=== PATIENT | female | born 1975 | race Caucasian/White ===

== ENCOUNTER → 2016-08-25 | Outpatient (CLI) | payer OTHER ==
[~2016-08-25] MED LIST: ANAS1TAB6 PO; LEVO25TA PO
[2016-08-25 13:17] VITALS: BP 129/84; PULSE 85; TEMP 36.8; O2SAT 100
--- NOTE | 2016-08-25 14:57 | Radiation Oncology Follow-Up ---
Radiation Oncology Follow-Up Date of Visit Aug 25, 2016. (Dia Jack PA-C) Reason For Visit One-month follow-up and cancer survivorship care plan (Dia Jack PA-C) Radiation Completion Date 07/15/16 (Dia Jack PA-C) Diagnosis (1) Breast cancer Onset Date: 11/12/2015 Histology Subtype: ductal Stage: ll Permanent Comment: STAGING: Left breast, invasive ductal carcinoma, grade 2, ER /MD positive, Her2 negative, [id number], stage II TREATMENT: 1. Lumpectomy/SLN - 11/25/2015 - Dr. Iniguez 2. Status post completion of systemic chemotherapy 4 cycles of Adriamycin and Cytoxan followed by 4 cycles of Taxol- Dr. Fay 3. Status post completion of radiation therapy 07/15/2016 received 6640 cGy Last Edited By: Dia Jack on July 29, 2016 08:15 (Dia Jack PA-C) History of Present Illness Ms. Vega is a 40-year-old premenopausal female who recently self palpated a left breast mass. She was referred by her selenium plant operator for bilateral diagnostic mammograms and targeted ultrasound on 11/08/2015 which revealed: A solid and cystic mass in the left breast measuring up to 28 mm in the greatest dimension and was confirmed by ultrasound to be a lobulated hypoechoic mass. Additionally, there was a 9 mm mass in the right breast also concerning for malignancy. The patient underwent ultrasound-guided biopsies of the left and right breast masses on 11/12/2015. The right breast mass was negative and was consistent with a fibroadenoma. The left breast mass was a invasive ductal carcinoma that was grade 1. No ductal carcinoma in situ is significant. The tumor was estrogen receptor positive, progesterone receptor positive and HER-2 negative. The patient underwent BRCA genetic testing on 11/19/2015 which revealed no mutation for BRCA1/2. The patient was then seen by Dr. Iniguez who discussed treatment options and recommended either mastectomy or breast conserving therapy. The patient elected for breast conserving surgery followed by adjuvant radiation therapy with or without chemotherapy. The patient underwent lumpectomy and sentinel lymph node biopsy on 11/25/2015 which revealed a 2.5 cm invasive ductal carcinoma that was grade 2. There is no ductal carcinoma in situ present. The margins were negative and the closest margin was 5 mm. Multiple sentinel lymph nodes were obtained and 3 were positive out of a total of 6 lymph nodes removed. The largest lymph node was 1.1 cm in greatest dimension. There was focal extranodal extension one positive sentinel lymph node. The patient was staged as a pT2N1a. She did meet with Dr. Fay for medical oncology who recommended adjuvant chemotherapy with Adriamycin, Cytoxan and Taxol followed by adjuvant radiation therapy in then anti-hormonal therapy. We are now seeing her in consultation to discuss the role of adjuvant radiation therapy. She has now completed her systemic chemotherapy. She received 4 cycles of Adriamycin and Cytoxan followed by 4 cycles of Taxol. She does have fatigue. She denies any problems with nausea and recurrent vomiting. She had some mild discomfort in the outer aspect of the breast. She saw Dr. Iniguez who felt this was postoperative changes. There has been no redness. She has noted no masses and no change of the axilla. She's had no swelling of her arm. She presents today for her CT simulation and to begin the process of treatment. She was treated with conventional radiation therapy. Radiation was completed in 07/15/2016. She received 6640 cGy. (Dia Jack PA-C) Interim History The skin irritation that occurred during treatment has steadily improved. The hyperpigmentation is steadily resolving. She stated that the swelling is less. She denies any pain of the breast. She has noted no masses or tenderness and no change of the axilla. She's had no swelling of her arm. She has had problem with recurring headaches. These are worse in the morning and late evening they're less in the afternoons. She finds that she is taking Tylenol twice a day. She does have some discomfort in the back for neck. She feels her headaches have increased since starting the Arimidex as well as the once a month injection that she has been receiving. (Dia Jack PA-C) Allergies Coded Allergies: Anesthetics, Mari (Verified Adverse Reaction, Severe, GI SYMPTOMS, ) severe nausea and vomiting Home Medications Scheduled Anastrozole (Anastrozole), 1 TAB PO DAILY Levothyroxine Sodium (Synthroid), 1 TAB PO DAILY Review of Systems Gastrointestinal: Symptoms: WNL Oral: Symptoms: No Problems Other Oral Symptoms: Indigestion related to certain drinks/foods Respiratory: Symptoms: WNL Urinary: Symptoms: WNL Skin: Symptoms: No Problems Breast: Right Upper Arm Measurement: 44.5 Right Mid Arm Measurement: 30.4 Right Wrist Measurement: 17.1 Left Upper Arm Measurement: 45.1 Left Mid Arm Measurement: 30.5 Left Wrist Measurement: 17.5 Arm Dominence: Right (Dia Jack PA-C) Physical Exam Vital Signs Date Time Temp Pulse Resp B/P (MAP) Pulse Ox O2 Delivery O2 Flow Rate FiO2 08/25/16 13:17 36.8 85 16 129/84 100 Fatigue: None General Appearance: no apparent distress Eyes: normal inspection, EOMI ENT: normal ENT inspection, hearing grossly normal Neck: no adenopathy, thyroid normal Respiratory/Chest: lungs clear, no respiratory distress, no accessory muscle use Breast: Breast examination reveals well-healed incisions of the left breast. There is resolving hyperpigmentation and resolving edema. There are no masses or tenderness no axillary adenopathy. She has no skin retractions or nipple changes. Using the [place] score cosmesis she has a good outcome. The right breast showed no masses or tenderness and no axillary adenopathy. Cardiovascular: regular rate, rhythm, no gallop, no murmur Extremities: no pedal edema Neurologic/Psychiatric: no motor/sensory deficits, alert, normal mood/affect Skin: warm/dry (Dia Jack PA-C) Laboratory Studies Test 07/16/16 14:40 07/16/16 15:31 08/25/16 13:07 White Blood Count 7.45 K/uL (4.8-10.8) 7.79 K/uL (4.8-10.8) Red Blood Count 3.73 M/uL (4.2-5.4) 3.77 M/uL (4.2-5.4) Hemoglobin 11.3 g/dL (12.0-16.0) 11.8 g/dL (12.0-16.0) Hematocrit 33.2 % (37-47) 33.3 % (37-47) Mean Corpuscular Volume 89.0 fL (80-100) 88.3 fL (80-100) Mean Corpuscular Hemoglobin 30.3 pg (25-34) 31.3 pg (25-34) Mean Corpuscular Hemoglobin Concent 34.0 g/dl (32-36) 35.4 g/dl (32-36) Platelet Count 209 K/uL (130-400) 194 K/uL (130-400) Mean Platelet Volume 8.2 fL (7.4-10.4) 8.7 fL (7.4-10.4) Neutrophils (%) (Auto) 73.1 % 71.1 % Lymphocytes (%) (Auto) 18.1 % 20.0 % Monocytes (%) (Auto) 4.6 % 5.5 % Eosinophils (%) (Auto) 3.5 % 2.8 % Basophils (%) (Auto) 0.3 % 0.1 % Neutrophils # (Auto) 5.45 K/uL (1.4-6.5) 5.53 K/uL (1.4-6.5) Lymphocytes # (Auto) 1.35 K/uL (1.2-3.4) 1.56 K/uL (1.2-3.4) Monocytes # (Auto) 0.34 K/uL (0.11-0.59) 0.43 K/uL (0.11-0.59) Eosinophils # (Auto) 0.26 K/uL (0-0.5) 0.22 K/uL (0-0.5) Basophils # (Auto) 0.02 K/uL (0-0.2) 0.01 K/uL (0-0.2) RDW Standard Deviation 49.6 fL (36.4-46.3) 47.0 fL (36.4-46.3) RDW Coefficient of Variation 15.3 % (11.5-14.5) 14.6 % (11.5-14.5) Immature Granulocyte % (Auto) 0.4 % 0.5 % Immature Granulocyte # (Auto) 0.03 K/uL (0.00-0.02) 0.04 K/uL (0.00-0.02) Sodium Level 141 mmol/L (136-145) 140 mmol/L (136-145) Potassium Level 3.8 mmol/L (3.5-5.1) 3.7 mmol/L (3.5-5.1) Chloride Level 107 mmol/L (98-107) 106 mmol/L (98-107) Carbon Dioxide Level 26 mmol/L (21-32) 26 mmol/L (21-32) Anion Gap 8.0 mmol/L (3-11) 8.0 mmol/L (3-11) Blood Urea Nitrogen 15 mg/dl (7-18) 16 mg/dl (7-18) Creatinine 1.20 mg/dl (0.60-1.20) 1.20 mg/dl (0.60-1.20) Estimated GFR () 65.9 65.9 Estimated GFR (Non- 56.9 56.9 BUN/Creatinine Ratio 12.7 (10-20) 13.3 (10-20) Random Glucose 139 mg/dl (70-99) 140 mg/dl (70-99) Calcium Level 9.1 mg/dl (8.5-10.1) 9.3 mg/dl (8.5-10.1) Total Bilirubin 0.5 mg/dl (0.2-1) 0.7 mg/dl (0.2-1) Aspartate Amino Transferase (AST) 18 U/L (15-37) 15 U/L (15-37) Alanine Aminotransferase (ALT) 26 U/L (12-78) 28 U/L (12-78) Alkaline Phosphatase 109 U/L (45-117) 98 U/L (45-117) Lactate Dehydrogenase 213 U/L (84-246) 217 U/L (84-246) Total Protein 7.6 gm/dl (6.4-8.2) 7.6 gm/dl (6.4-8.2) Albumin 3.6 gm/dl (3.4-5.0) 3.5 gm/dl (3.4-5.0) Globulin 4.0 gm/dl (2.5-4.0) 4.1 gm/dl (2.5-4.0) Albumin/Globulin Ratio 0.9 (0.9-2) 0.9 (0.9-2) Enhanced Estradiol 25.8 pg/ml Follicle Stimulating Hormone 35.34 IU/L (Dia Jack PA-C) Assessment & Plan Plan: The patient was also seen and examined by Dr. Miguel. We discussed the symptoms that she is having of headaches. She is seeing medical oncology today. We'll defer any imaging to their office. She has follow-up appointment with Dr. nIiguez. She is scheduled for mammography next week. We asked her to return to our office in 6 months. She may call our office if she has no questions or concerns. Today we completed a cancer survivorship care plan. A copy of the document was given to the patient. (Dia Jack PA-C) I agree with note created by Dia Jack PA-C. I reviewed the patient's chart and information with her. I have examined and evaluated the patient. I reviewed relevant clinical information and answered the patient's and/or family' s questions. (Veeral. Miguel MD) Total Time In Follow-Up I spent 20 minutes speaking to the patient and performing examination. I spent 20 minutes reviewing information, preparing the survivorship document, and completing this note. (Dia Jack PA-C) I spent 15 minutes examining and counseling the patient. (Veeral. Miguel MD) Copy To Ruben Iniguez M.D.; Cachorro Fay D.O.; Lucho Larkin M.D. Problem Qualifiers (1) Breast cancer: Breast location: upper outer quadrant of breast Estrogen receptor status: positive Patient sex: female Laterality: right Qualified Codes: C50.411 - Malignant neoplasm of upper-outer quadrant of right female breast; Z17.0 - Estrogen receptor positive status [ER+]
== END | disposition home or self-care (01) ==
LOC: C.ONC 13:12
PROVIDERS: ATTEND Physician Assistant Medical
DX: Z08 Encounter for follow-up examination after completed treatment for malignant neoplasm (principal); Z92.3 Personal history of irradiation; Z85.3 Personal history of malignant neoplasm of breast

== ENCOUNTER → 2016-09-07 | Outpatient (CLI) | payer OTHER | END | disposition home or self-care (01) | LOC: C.MAMM 08:07 | PROVIDERS: ATTEND Internal Medicine Hematology & Oncology | DX: Z85.3 Personal history of malignant neoplasm of breast (principal) ==

== ENCOUNTER → 2017-04-27 | Outpatient (CLI) | payer OTHER ==
[~2017-04-27] MED LIST changes: +GABA-1219 PO
[2017-04-27 15:17] VITALS: BP 110/78; PULSE 100; TEMP 36.7; O2SAT 97
--- NOTE | 2017-04-27 17:07 | Radiation Oncology Follow-Up ---
Radiation Oncology Follow-Up Date of Visit Apr 27, 2017. Reason For Visit 8 month follow-up Radiation Completion Date finished 07-15-2016 Diagnosis (1) Breast cancer Onset Date: 11/12/2015 Stage: ll Permanent Comment: STAGING: Left breast, invasive ductal carcinoma, grade 2, ER /MS positive, Her2 negative, [id number], stage II TREATMENT: 1. Lumpectomy/SLN - 11/25/2015 - Dr. Iniguez 2. Status post completion of systemic chemotherapy 4 cycles of Adriamycin and Cytoxan followed by 4 cycles of Taxol- Dr. Fay 3. Status post completion of radiation therapy 07/15/2016 received 6640 cGy Last Edited By: Dia Jack on July 29, 2016 08:15 History of Present Illness Ms. Vega self palpated a left breast mass. She was referred by her top knitter for bilateral diagnostic mammograms and targeted ultrasound on 10/2015 which revealed: A solid and cystic mass in the left breast measuring up to 28 mm in the greatest dimension and was confirmed by ultrasound to be a lobulated hypoechoic mass. Additionally, there was a 9 mm mass in the right breast also concerning for malignancy. The patient underwent ultrasound-guided biopsies of the left and right breast masses on 11/12/2015. The right breast mass was negative and was consistent with a fibroadenoma. The left breast mass was a invasive ductal carcinoma that was grade 1. No ductal carcinoma in situ is significant. The tumor was estrogen receptor positive, progesterone receptor positive and HER-2 negative. The patient underwent BRCA genetic testing on 11/19/2015 which revealed no mutation for BRCA1/2. The patient was then seen by Dr. Iniguez who discussed treatment options and recommended either mastectomy or breast conserving therapy. The patient elected for breast conserving surgery followed by adjuvant radiation therapy with or without chemotherapy. The patient underwent lumpectomy and sentinel lymph node biopsy on 11/25/2015 which revealed a 2.5 cm invasive ductal carcinoma that was grade 2. There is no ductal carcinoma in situ present. The margins were negative and the closest margin was 5 mm. Multiple sentinel lymph nodes were obtained and 3 were positive out of a total of 6 lymph nodes removed. The largest lymph node was 1.1 cm in greatest dimension. There was focal extranodal extension one positive sentinel lymph node. The patient was staged as a pT2N1a. She did meet with Dr. Fay for medical oncology who recommended adjuvant chemotherapy with Adriamycin, Cytoxan and Taxol followed by adjuvant radiation therapy in then anti-hormonal therapy. We are now seeing her in consultation to discuss the role of adjuvant radiation therapy. She has now completed her systemic chemotherapy. She received 4 cycles of Adriamycin and Cytoxan followed by 4 cycles of Taxol. She does have fatigue. She denies any problems with nausea and recurrent vomiting. She had some mild discomfort in the outer aspect of the breast. She saw Dr. Iniguez who felt this was postoperative changes. There has been no redness. She has noted no masses and no change of the axilla. She's had no swelling of her arm. She presents today for her CT simulation and to begin the process of treatment. She was treated with conventional radiation therapy. Radiation was completed in 07/15/2016. She received 6640 cGy. Interim History She continues to have discomfort in the lateral aspect of the breast towards the axilla. When she stretches and raises her arm up she will have discomfort. She has generalized muscle discomfort. She has post chemotherapy neuropathy. She was seen today in medical oncology notes been prescribed Celebrex. She is up-to-date on mammography. She continues follow-up with the breast surgeon. She has recheck mammography in [place]. Allergies Coded Allergies: Anesthetics, Mari (Verified Adverse Reaction, Severe, GI SYMPTOMS, ) severe nausea and vomiting Home Medications Scheduled Anastrozole (Anastrozole), 1 TAB PO DAILY Levothyroxine Sodium (Synthroid), 1 TAB PO DAILY Scheduled PRN Gabapentin (Gabapentin), 1 CAP PO TID PRN for Pain Review of Systems Gastrointestinal: Symptoms: WNL Oral: Symptoms: No Problems Respiratory: Symptoms: WNL Urinary: Symptoms: WNL Skin: Symptoms: No Problems Breast: Right Upper Arm Measurement: 50.0 Right Mid Arm Measurement: 31.0 Right Wrist Measurement: 17.3 Left Upper Arm Measurement: 49.8 Left Mid Arm Measurement: 31.0 Left Wrist Measurement: 17.6 Patient Cosmetic Evaluation: Fair Staff Cosmetic Evalaluation: Good Physical Exam Vital Signs Date Time Temp Pulse Resp B/P (MAP) Pulse Ox O2 Delivery O2 Flow Rate FiO2 04/27/17 15:17 36.7 100 20 110/78 97 Fatigue: None General Appearance: no apparent distress Eyes: normal inspection, EOMI ENT: normal ENT inspection, hearing grossly normal Neck: no adenopathy, thyroid normal Respiratory/Chest: lungs clear, no respiratory distress, no accessory muscle use Breast: Breast examination reveals continued hyperpigmentation of the left breast. There are no masses or tenderness and no axillary adenopathy. There is mild edema in the lower portion of the breast. She has no skin retractions or nipple changes. Using the [place] score of cosmesis she has a good outcome. The right breast showed no masses or tenderness and no axillary adenopathy. Cardiovascular: regular rate, rhythm, no gallop, no murmur Extremities: no pedal edema Neurologic/Psychiatric: no motor/sensory deficits, alert Skin: warm/dry Pain Management Patient Reports Pain: Yes Side: Bilateral Pain Location: Generalized Patient Preferred Pain Scale: 0 - 10 Initial Pain Intensity: 2.0 Pain Management Plan She has muscular pain. She has been prescribed Celebrex by medical oncology. She will be starting that medication today. She does not require any pain management through our office. Laboratory Laboratory Results: not applicable Pathology Pathology Results: not applicable Imaging Imaging Studies: were reviewed, and pertinent findings noted below Imaging Comments She had a mammogram on the left breast January 06, 2017. This showed no evidence of breast malignancy. Slight evolution of the left breast treatment changes. She will be due for bilateral mammogram in August 2017. BI-RADS Category 2. Benign. Assessment & Plan Plan: She also had a mammogram in March after noting area of tenderness of the left lateral breast. She was concerned for possible mass. The mammogram was negative. Today's examination reveals no masses. There is no cording. There was no tenderness on the lateral side of the breast. She was seen and examined by Dr. Miguel. She will continue follow-up with her primary care physician, medical oncology, and her breast surgeon. Medical oncology has prescribed Celebrex. This will help with her joint discomfort, neuropathy, as well as any breast tenderness. We asked her to return to our office in 1 year. She may call if she has any questions or concerns. Assessment & Plan (Attending) I agree with note created by Dia Jack PA-C. I reviewed the patient's chart and information with her. I have examined and evaluated the patient. I reviewed relevant clinical information and answered the patient's and/or family' s questions. DADO OPERATOR Total Time In Follow-Up I spent 20 minutes speaking to the patient performing examination. I spent 15 minutes reviewing information and completing this note. [place] Total Time (Attending) In Follow-Up I spent 15 minutes examining and counseling the patient. DADO OPERATOR Copy To Ruben Iniguez M.D.; Cachorro Fay D.O.; Pankaj Cm M.D. Problem Qualifiers (1) Breast cancer: Breast location: upper outer quadrant of breast Estrogen receptor status: positive Patient sex: female Laterality: right Qualified Codes: C50.411 - Malignant neoplasm of upper-outer quadrant of right female breast; Z17.0 - Estrogen receptor positive status [ER+]
== END | disposition home or self-care (01) ==
LOC: C.ONC 15:14
PROVIDERS: ATTEND Physician Assistant Medical
DX: C50.411 Malignant neoplasm of upper-outer quadrant of right female breast (principal); Z17.0 Estrogen receptor positive status [ER+]

== ENCOUNTER → 2017-09-24 | Outpatient (CLI) | payer OTHER ==
[~2017-09-24] MED LIST changes: -ANAS1TAB6 PO; +ANAS1TAB7 PO
== END | disposition home or self-care (01) ==
LOC: C.LAB 11:21
PROVIDERS: ATTEND Internal Medicine
DX: E03.9 Hypothyroidism, unspecified (principal)

== ENCOUNTER → 2017-10-05 | Outpatient (CLI) | payer OTHER ==
--- NOTE | 2017-10-05 14:45 | MAMMOGRAPHY REPORT ---
UNILATERAL RIGHT DIGITAL DIAGNOSTIC MAMMOGRAM TOMOSYNTHESIS WITH CAD AND RIGHT ULTRASOUND: 10/05/2017 CLINICAL HISTORY: 42-year-old woman with a personal history of left breast cancer status post breast conservation treatment was recently callback from screening mammography in the right breast, for one versus 2 nodular asymmetries in the 12:00 posterior breast. Additional diagnostic mammogram and ultra sound images were performed which demonstrate to possible nodular asymmetries in the 1230 right breas t, 13 cm from the nipple. Patient had a previous biopsy in the right breast 12:00 representing a fib roadenoma, which measured 5 mm. TECHNIQUE: Right CC and MLO tomosynthesis full-field images, spot compression tomosynthesis right CC and MLO 2D and tomosynthesis images centered in the 12:00 posterior axis, and additional CC and MLO f ull-field tomosynthesis images were obtained after placement of skin markers. COMPARISON: Comparison is made to exams dated: 09/07/2017 mammogram, 03/22/2017 mammogram, 01/06/2017 m ammogram, and 09/23/2016 mammogram. BREAST COMPOSITION: There are scattered areas of fibroglandular density in right breast. FINDINGS: The full-field views of the right breast demonstrate a few scattered benign-appearing coars e calcifications. There is a metallic dumbbell-shaped biopsy clip adjacent to an elliptical versus o void circumscribed 6.6 x 3.0 x 4.9 mm mass in the 1:00 posterior right breast, denoting a biopsy-prov en fibroadenoma. 5 cm medial to the fibroadenoma in the CC projection, in the far posterior right br east along the posterior nipple line, there is a conspicuous 4.3 mm nodular asymmetry with indistinct and somewhat irregular borders but possible intra-coursing fat. This is thought to project in the 1 2:00 far posterior breast on right MLO tomosynthesis slice , and further evaluation with ultraso und was then performed. Targeted ultrasound was performed in the superior right breast from approximately 10:00 through 2:00. In the 1:30 right breast, 10 cm from the nipple, there is a lobulated and circumscribed hypoechoic solid-appearing mass measuring 3.4 x 4.1 x 4.4 mm and this is similar in appearance to prior ultrasou nds which were labeled 2:00 and most likely represents the previously biopsy-proven fibroadenoma. In the 11:00 right breast, 9 cm from the nipple, there is a small focal ill-defined mixed echogenicity isoechoic and hypoechoic solid-appearing mass measuring 3.8 x 3.2 x 2.7 mm. Another ill-defined hypo echoic focal shadowing area is identified in the 10:30 right breast, 6 cm from the nipple measuring 3 .8 x 3.7 x 4.2 mm. It was unclear if either of the lesions in the 11:00 or 10:30 right breast may co rrelate with the persistent mammographic asymmetry and therefore a skin BB was placed in the 11:00 ax is and a triangle marker was placed in the 1030 axis. Repeat full-field right CC and MLO tomosynthes is images were performed. The repeat tomosynthesis views demonstrate the BB marker aligns with a newly visualized ill-defined m ammographic mass in the upper outer middle one third of the breast, best seen in the CC projection an d in retrospect is visible on the original tomosynthesis views performed today on CC tomosynthesis sl ice 39/71. Mammographically, this mass measures 5.1 mm and it is indeterminate based on the ultrasou nd appearance. Ultrasound-guided core biopsy is recommended. There is no definite mammographic abno rmality to correlate with the shadowing lesion seen in the 10:30 right breast on ultrasound. Neither of the sonographic findings definitively correspond with the mammographic asymmetry in the far poste rior 12:00 breast. Additional targeted ultrasound was performed between the BB marker and the fibroadenoma identified in the 130 axis but no additional solid or cystic mass was seen. Overall, the ill-defined indistinct 4 mm nodular asymmetry in the posterior right breast along the po sterior nipple line on the CC view, thought to project superiorly based on the MLO view remains indet erminate. Stereotactic tomosynthesis guided biopsy is recommended. IMPRESSION: ACR BI-RADS CATEGORY 4: SUSPICIOUS, ULTRASOUND ACR BI-RADS CATEGORY 4: SUSPICIOUS 1. There is a persistent 4 mm indistinct, ill-defined nodular asymmetry in the far posterior retrogl andular fat of the right breast, along the posterior nipple line on the CC view and thought to projec t superiorly on the MLO view, without sonographic correlate identified. This finding remains indeter minate given that long-term stability is not demonstrated on prior mammograms, stereotactic tomosynt hesis guided biopsy is recommended for definitive characterization. 2. Incidentally seen on ultrasound in the right 11:00 breast is a small mixed echogenicity solid-rishi earing 4 mm mass, which is seen mammographically in the lateral, middle one third of the breast on th e CC tomosynthesis images. Definitive characterization with ultrasound-guided core needle biopsy is recommended. 3. A third ill-defined shadowing area in the 10:30 right breast on ultrasound as no definite mammogr aphic abnormality and may simply represent normal shadowing glandular tissue. Pending benign patholo gy results, a six-month follow-up right diagnostic mammogram and possible ultrasound is recommended t o ensure stability. 4. Given the personal history of premenopausal left breast cancer would also consider future surveil dat with breast MRI. These results and recommendations were discussed with the patient at the time of the exam. She tenta tively scheduled the right breast biopsies prior to leaving our department. Some breast cancers are not detected with mammography. A negative mammographic report should not fermín y biopsy if a clinically suggestive mass is present. Toña Chowdary M.D. ay/:10/05/2017 12:06:44 Director Of Pharmacy: Oriana Galindo, [facility]; Toña Chowdary [facility] letter sent: Abnormal 06/03 OVERALL STUDY BIRADS: 4 Suspicious abnormality
== END ==
LOC: C.MAMM 09:47
PROVIDERS: ATTEND Nurse Practitioner Family
DX: N64.89 Other specified disorders of breast (principal)

== ENCOUNTER → 2017-10-15 | Outpatient (CLI) | payer OTHER ==
--- NOTE | 2017-10-15 09:41 | Discharge Instructions ---
Discharge Instructions Procedure Procedure Date: Oct 15, 2017. Reason for visit: Us Core Bx,Right Us Mass,Right Focal Asymm. Discharge Discharge Date: Oct 15, 2017. Discharge Diagnosis: status post breast biopsies Instructions Activity Recommendations: Additional Limitations (see below) Return to School/Work: no limitations Recommended Home Diet: No Limitations Provider Instructions: ACTIVITY RECOMMENDATIONS: * No lifting, pushing, pulling or exercising the affected side for three days. RETURN TO SCHOOL/WORK: * You may return to work/school after the procedure, but do not perform any strenuous activities for 24 to 48 hours. MEDICATIONS: * Tylenol (two 325 mg) every four to six hours if needed for mild pain (if not allergic to Tylenol). DIET: * Resume previous diet. SPECIAL CARE INSTRUCTIONS: * Keep biopsy site dry for 24 hours. May shower after 24 hours, but do not soak (bathe) incision. * May remove Tegaderm (plastic patch) 24 hours after procedure * Leave the steri-strips on for one week. Allow the steri-strips to fall off by themselves. If not off after one week, you may remove them. You may place a Bandaid crosswise over the strips, if desired. * Apply ice 10 minutes on and 10 minutes off as needed. * Wear a bra at bedtime to sleep more comfortably for 2-3 days. * Your referring physician should have the results after approximately 5 to 7 business days. * Call for unusual bleeding, fever, drainage, etc or if you have any questions call during normal business hours or after hours call Dr Galeas, . FOLLOW UP VISIT: Follow-up with Referring Physician as scheduled. Allergies Coded Allergies: Anesthetics, Mari (Verified Adverse Reaction, Severe, GI SYMPTOMS, ) severe nausea and vomiting [place] Recommendations: Call your doctor if: * Temperature above 101 degrees * Pain not relieved by pain medicine ordered * There is increased drainage or redness from any incision * You have any unanswered questions or concerns. Your Doctors Instructions noted above were prepared by provider Leonie Galeas. Patient Signature Section: Patient Instructions Signature Page Yamilka Gary Patient (or Guardian) Signature/Date: I have read and understand the instructions given to me by my caregivers. Caregiver/RN/Doctor Signature/Date: The above-named patient and/or guardian has received patient instructions on this date. + Original Patient Signature Page (only) stays with chart. Please make copy for patient.
--- NOTE | 2017-10-15 15:39 | MAMMOGRAPHY REPORT ---
ULTRASOUND GUIDED BIOPSY RIGHT BREAST: 10/15/2017 CLINICAL HISTORY: Right 11:00 breast mass. PATIENT CONSENT: The procedure, risks and benefits were discussed with the patient and informed writt en consent was obtained. A timeout was performed immediately prior to the procedure. PROCEDURE DESCRIPTION: With ultrasound guidance, aseptic technique, and lidocaine as the local anesth etic (1% lidocaine to anesthetize the skin and 1% lidocaine with epinephrine to anesthetize the deepe r tissues), the mass of concern in the right 11:00 breast was sampled 3 times with a 14-gauge Achieve biopsy needle. Immediately thereafter, with ultrasound guidance, a metallic localizer clip was sheeba janell at the biopsy site. Direct pressure was applied to the site immediately post procedure until hem ostasis was achieved. Postprocedure unilateral mammograms were performed to confirm clip placement; see separate dictation for details. Steri-Strips were placed over the site and covered with an Opsit e patch. The patient tolerated the procedure without complication. She was given wound care instruct ions. The specimens were sent to pathology for analysis. COMPARISON: Comparison is made to exams dated: 10/05/2017 ultrasound, 10/05/2017 mammogram - [facility], 09/07/2017 mammogram, 03/22/2017 mammogram, 01/06/2017 mammogram, and 09/23/2016 mammo gram. IMPRESSION: ULTRASOUND GUIDED BIOPSY Ultrasound-guided core needle biopsy of the right 11:00 breast mass, with clip placement. The patien t will receive pathology results from her referring provider. Leonie Galeas M.D. /:10/15/2017 10:17:28 Pay Agent: Oriana Galindo, [facility]
--- NOTE | 2017-10-15 15:39 | MAMMOGRAPHY REPORT ---
UNILATERAL RIGHT DIGITAL DIAGNOSTIC MAMMOGRAM TOMOSYNTHESIS: 10/15/2017 CLINICAL HISTORY: Status post right breast biopsies. TECHNIQUE: The study was acquired using full field digital technology and interpreted from soft copy. Breast tomosynthesis in addition to standard 2D mammography was performed. Postprocedural right CC and ML tomosynthesis images were obtained. COMPARISON: Comparison is made to exams dated: 10/05/2017 mammogram - [facility], 11/2017 mammogram, 03/22/2017 mammogram, 01/06/2017 mammogram, 09/23/2016 mammogram, and 10/15/2017 stere otactic biopsy - [facility]. BREAST COMPOSITION: There are scattered areas of fibroglandular density in right breast. FINDINGS: A new dumbbell-shaped biopsy marker clip is seen in the expected location of the biopsied a symmetry in the right far posterior at approximately 12:00. Ill-defined density is seen at the surgi richard site, measuring up to 4.7 cm on the MLO view, likely representing postbiopsy changes/hematoma. A new ribbon-shaped biopsy marker clip is seen in the expected location of the biopsied mass in the ri ght 11:00 breast. IMPRESSION: POST PROCEDURE IMAGING FOR MARKER PLACEMENT New biopsy marker clip status post right breast biopsies. A postbiopsy hematoma is seen at the biops y site in the right 12:00 breast; the patient was advised to call or return to the breast center for any recurrent bleeding or other concerns. Pending benign pathology results, recommend follow-up diag nostic tomosynthesis mammograms and possible ultrasound of the right breast in 6 months. Some breast cancers are not detected with mammography. A negative mammographic report should not fermín y biopsy if a clinically suggestive mass is present. Leonie Galeas M.D. /:10/15/2017 10:34:24 Spindle Carver: Oriana Galindo, [facility] BI-RADS Code: Post Procedure Imaging For Marker Placement
--- NOTE | 2017-10-15 15:39 | MAMMOGRAPHY REPORT ---
STEREOTACTIC GUIDED BIOPSY RIGHT BREAST: 10/15/2017 CLINICAL HISTORY: Asymmetry in the right posterior breast, without a sonographic correlate identified . PATIENT CONSENT: The procedure, risks, benefits, and alternatives of stereotactic biopsy with clip pl acement were discussed with the patient, and verbal and written consent was obtained. A timeout was performed immediately prior to the procedure. PROCEDURE DESCRIPTION: With tomosynthesis stereotactic guidance, aseptic technique, and lidocaine as a local anesthetic (1% lidocaine to anesthetize the skin and 1% lidocaine with epinephrine to anesthe tize the deeper tissues), the asymmetry in the far posterior right breast was sampled multiple times with a 9-gauge vacuum-assisted biopsy needle (Viacor). The path of approach was craniocaudal. A metallic marker clip (dumbbell-shaped) was placed at the biopsy site. Postprocedural mammograms w ere obtained to confirm clip placement; see separate dictation for details. Direct pressure was appl ied at the biopsy site until hemostasis was achieved. The patient tolerated the procedure without co mplication. She was given wound care instructions. COMPARISON: Comparison is made to exams dated: 10/05/2017 ultrasound, 10/05/2017 mammogram - [facility], 09/07/2017 mammogram, 03/22/2017 mammogram, 01/06/2017 mammogram, and 09/23/2016 mammo gram. IMPRESSION: STEREOTACTIC GUIDED BIOPSY Tomosynthesis stereotactic guided biopsy of asymmetry in the far posterior right breast, with clip pl acement. The patient will receive pathology results from her referring provider. Pending benign pat hology results, recommend follow-up diagnostic tomosynthesis mammograms and possible ultrasound of th e right breast in 6 months. Leonie Galeas M.D. /:10/15/2017 10:31:52 Attending Technologist: RT Elinor(Ramya)(M), [facility] Chairman Ceo: Oriana Galindo, [facility]
== END | disposition home or self-care (01) ==
LOC: C.MAMM 08:47
PROVIDERS: ATTEND Nurse Practitioner Family
DX: N64.9 Disorder of breast, unspecified (principal); L76.82 Other postprocedural complications of skin and subcutaneous tissue; D24.1 Benign neoplasm of right breast; C50.911 Malignant neoplasm of unspecified site of right female breast

== ENCOUNTER 2018-03-29 10:40 | Inpatient (IN) ==
--- NOTE | 2018-03-28 13:04 | Anesthesiology Consultation ---
Date of Service March 28, 2018 Assessment & Plan Chart Review Chart Review: Acceptable Risk for Surgery and Patient NOT seen in Pre Admission Testing Patient is a late add-on to preop testing review (03/28/2018) for surgery on 03/29. No PAT nurse interview was completed so chart was reviewed based upon surgeon's H & P. I do not see that patient has any hx/o DM but she has an elevated HgbA1c and glucose level. Wrote to check blood sugar AM of surgery. Surgery itself appears to be rather urgent as patient has previous hx/o of breast cancer now with a suspicious lung mass and I felt it was not prudent to delay for better glucose management. If patient continues to have elevated blood sugars would think it would be reasonable to discuss inpatient admission with the surgeon to ensure adequate control prior to going home or at least have outpatient follow up arranged. Consults Requested none History Surgery Operation Date: 03/29/18 13:05 Proposed Procedures p Left Video Assisted Thoracoscopy with Left Upper Lobe Wedge Resection - Ike Damico MD, FACS Allergies Allergy/AdvReac Type Severity Reaction Status Date / Time Anesthetics - Mari Type- AdvReac Severe GI SYMPTOMS Verified 02/13/16 14:21 Parabens Medications Home Medications Medication Instructions Recorded Confirmed Last Taken LEVOTHYROXINE SODIUM (SYNTHROID) 1 tab PO DAILY 30 Days #30 tab 05/26/16 Unknown ANASTROZOLE 1 tab PO DAILY 30 Days #30 tab 08/25/16 Unknown Gabapentin 1 cap PO TID PRN 30 Days #90 cap 04/27/17 Unknown Past Medical History Medical History Breast cancer (11/12/15) "STAGING: Left breast, invasive ductal carcinoma, grade 2, ER/MD positive, Her2 negative, [id number], stage II TREATMENT: 1. Lumpectomy/SLN - 11/25/2015 - Dr. Iniguez 2. Status post completion of systemic chemotherapy 4 cycles of Adriamycin and Cytoxan followed by 4 cycles of Taxol- Dr. Fay 3. Status post completion of radiation therapy 07/15/2016 received 6640 cGy" On 12/18/15 12:43 Vaibhav Miguel wrote "STAGING: Left breast, invasive ductal carcinoma, grade 2, ER/MD positive, Her2 negative, [id number], stage II TREATMENT: 1. Lumpectomy/SLN - 11/25/2015 - Dr. Iniguez 2. Chemotherapy planned - Dr. Fay " Hyperglycemia Hypothyroidism Obese Past Surgical History Surgical History H/O hernia repair Hx of section S/P lumpectomy, left breast Testing Echocardiogram Date: 02/25/16 History: BREAST CANCER, NEOPLASM -- Conclusions -- 1. Normal left ventricular size and systolic function. Estimated EF 55-60% . No visualized wall motion abnormalities. Cannot rule out wall motion abnormalities given image quality. No significant left ventricular hypertrophy. 2. No significant valvular abnormalities visualized. 3. Technically difficult study. 4. No significant change from prior study on 12/13/2015. Laboratory Results Laboratory Tests 03/14/18 03/14/18 03/14/18 12:24 12:24 12:24 WBC 5.76 Hgb 11.9 L Hct 33.1 L Plt Count 151 Sodium 133 L Potassium 3.4 L Chloride 100 Carbon Dioxide 30 BUN 24 H Creatinine 1.25 H Glucose 318 H Hemoglobin A1c TSH 11.900 H 03/14/18 12:24 WBC Hgb Hct Plt Count Sodium Potassium Chloride Carbon Dioxide BUN Creatinine Glucose Hemoglobin A1c 7.8 H TSH
[~2018-03-29 10:40] MED LIST changes: -ANAS1TAB7 PO; +CEFAZOLIN 3000MG 65 ML IV SCH; -GABA-1219 PO; -LEVO25TA PO; +LR 15ML/HR IV SCH
[2018-03-29] MEDS ORDERED: INSULIN HUMAN REGULAR PER IV STA (11:41)
[2018-03-29] MEDS ORDERED: NovoLIN-R INSULIN PER UNIT CHARGE ONE (11:42)
--- NOTE | 2018-03-29 11:59 | History & Physical Bridge Note ---
Date of Service March 29, 2018 History & Physical Bridge Note I have examined the patient, reviewed the History & Physical and in the interval since the performance of the History & Physical I have noted the following changes of clinical significance: no changes noted
[2018-03-29] MEDS ORDERED: LIDOCAINE 2% JELLY 5 ML TUBE ONE (13:02)
[2018-03-29] MEDS ORDERED: BUPIVACAINE 0.5 % 5 MG/1 ML MPF 30ML VIAL ONE (13:03)
[2018-03-29] MEDS ORDERED: SODIUM CHLORIDE 0.9% PF 50 ML VIAL ONE ×2 (13:04→13:09)
[2018-03-29] MEDS ORDERED: BUPIVACAINE LIPOSOME 1.3% 266 MG/20 ML VIAL ONE (13:09)
[2018-03-29] MEDS ORDERED: MIDAZOLAM HCL 1 MG/ML 2ML VIAL ONE (13:24)
[2018-03-29] MEDS ORDERED: fentaNYL citrate 100 MCG/2 ML VIAL ONE ×2 (13:24)
[2018-03-29] MEDS ORDERED: SCOPOLAMINE 1.5 MG TDSY ONE (13:40)
[2018-03-29] MEDS ORDERED: SCOPOLAMINE 1.5 MG TDSY TD ONE (13:42)
[2018-03-29] MEDS ORDERED: ROCURONIUM BROMIDE 10 MG/ML 5 ML VIAL ONE (14:33)
[2018-03-29] MEDS ORDERED: LIDOCAINE HCL 2% 2 ML VIAL/AMP(20MG/ML) INFIL ONE (14:33)
[2018-03-29] MEDS ORDERED: PROPOFOL IV EMULSION 10 MG/ML 20 ML VIAL IV ONE (14:33)
[2018-03-29] MEDS ORDERED: ONDANSETRON INJ 2 MG/ML 2 ML VIAL ONE (14:33)
[2018-03-29] MEDS ORDERED: NEOSTIGMINE METHYLSULFATE 5 MG/5 ML SYR ONE (14:33)
[2018-03-29] MEDS ORDERED: GLYCOPYRROLATE 0.2 MG/ML VIAL ONE (14:33)
[2018-03-29] MEDS ORDERED: HYDROmorphone INJ 2 MG/ML SYR/VIAL ONE (15:15)
[2018-03-29] MEDS ORDERED: PROMETHAZINE HCL 12.5 MG in SODIUM CHLORIDE 0.9% 50 ML IV PRN (15:29)
[2018-03-29] MEDS ORDERED: NALOXONE HCL 0.4 MG/1 ML VIAL/CARP IV PRN (15:29)
[2018-03-29] MEDS ORDERED: ATROPINE SULFATE 0.1 MG/ML 10ML SYR IV PRN (15:29)
[2018-03-29] MEDS ORDERED: ePHEDrine sulfate 50 MG/ML AMP IV PRN (15:29)
[2018-03-29] MEDS ORDERED: FLUMAZENIL 0.1 MG/1 ML 10 ML VIAL IV PRN (15:29)
[2018-03-29] MEDS ORDERED: LABETALOL HCL IV 5 MG/ML 20ML IV PRN (15:29)
[2018-03-29] MEDS ORDERED: ONDANSETRON INJ 2 MG/ML 2 ML VIAL IV PRN ×2 (15:29→16:50)
[2018-03-29] MEDS ORDERED: HYDROmorphone INJ 2 MG/ML SYR/VIAL IV PRN (15:29)
--- NOTE | 2018-03-29 15:37 | XRay Report ---
XR chest 1V portable CLINICAL HISTORY: 43 years-old Female presenting with lung wedge biopsy, recent postop. TECHNIQUE: Portable upright AP view of the chest was obtained. COMPARISON: 12/13/2015. FINDINGS: Large bore left pleural drain terminates at the paramediastinal left apex. Cardiac silhouette top nor mal in size. Pulmonary vascular prominence. Mildly low lung volumes. Left perihilar and basilar opaci ty. No large pleural effusion. No evidence of a pneumothorax. Soft tissue emphysema along the inferio r left lateral chest wall associated with the pleural drain. Biopsy clips may be present in the right breast. Osseous structures and upper abdomen normal. IMPRESSION: 1. Left pleural drain in place. No pneumothorax. 2. Postsurgical changes of the left hemithorax with atelectasis. 3. Mild volume overload/congestive change. Electronically signed by: George Corral M.D. 03/29/2018 3:35 PM
[2018-03-29] MEDS ORDERED: HYDROmorphone INJ 1 MG/ML SYRINGE ONE (15:59)
[2018-03-29] MEDS ORDERED: CHECK SCOPOLAMINE PATCH PLACEMENT SCH (16:00)
--- NOTE | 2018-03-29 16:02 | Anesthesiology Progress Note ---
Date of Service March 29, 2018 Anesthesia Post Procedure Vital Signs Vital Signs: Temp Pulse Pulse Resp BP Pulse Ox 03/29/18 15:50 67 14 130/73 100 03/29/18 15:40 69 14 137/71 100 03/29/18 15:30 65 16 128/68 100 03/29/18 15:21 36.3 C L 70 16 110/69 100 03/29/18 11:42 36.9 C 99 H 20 156/109 H 97 Pain Intensity Left Chest: Pain Intensity: 7 Notes Mental Status: alert / awake / arousable and participated in evaluation Patient Amnestic to Procedure: Yes Nausea / Vomiting: adequately controlled Pain: adequately controlled Airway Patency, RR, SpO2: stable & adequate BP & HR: stable & adequate Hydration State: stable & adequate Anesthetic Complications: no major complications apparent
--- NOTE | 2018-03-29 16:42 | Post Operative Brief Note ---
Immediate Post Op Note v1 Date of Surgery March 29, 2018 Pre & Post Diagnosis Operation Date: 03/29/18 13:05 Pre-Op Diagnosis: Left Lung Nodule Post-Op Diagnosis: Left Lung Nodule Procedure Operation Date: 03/29/18 13:05 Actual Procedures p Left Video Assisted Thoracoscopy with Left Upper Lobe Wedge Resection(Left) - Ike Damico MD, FACS Surgeon Ike Damico MD, FACS Machine Packager b> Meng COFFEY Estimated Blood Loss 10 Findings Consistent with Post-Op Diagnosis Drains Chest Tube (24 Fr.Thal) and Nicole Catheter (16 Fr. Nicole catheter placed by ANNALISA Deleon without difficulty, draining clear yellow urine. Catheter removed at end of case)
[2018-03-29] MEDS ORDERED: DEXTROSE 50% 50 ML SYRINGE IV PRN (16:46)
[2018-03-29] MEDS ORDERED: CARBOHYDRATES FOR HYPOGLYCEMIA PO PRN (16:46)
[2018-03-29] MEDS ORDERED: GLUCAGON FOR INJ 1 MG VIAL IM PRN (16:46)
[2018-03-29] MEDS ORDERED: GLUCOSE 40% GEL 15 GM TUBE PO PRN (16:46)
[2018-03-29] MEDS ORDERED: GLUCOSE 10 TABS/TUBE PO PRN (16:46)
[2018-03-29] MEDS ORDERED: MoRPHine SULFATE 2 MG/ML CARP IV PRN (16:50)
--- NOTE | 2018-03-29 17:27 | Hospitalist Consultation ---
Date of Consultation March 29, 2018 Assessment & Plan (1) Nodule of left lung: - S/p VATS today; has h/o breast cancer. - Pain control per primary team. - Monitor labs in the AM. (2) Breast cancer: - Currently receiving Aromasin and Anastrozole. - S/p lung nodule biopsy as noted above. (3) Hypothyroidism: - Continue Synthroid 150 mcg daily. - Most recent TSH was 11.9 on 03/14. - Will need to follow up with to discuss increasing dose. (4) Type II diabetes mellitus: - Hemoglobin A1C was 7.8 on 03/14/18. - Pt. was prescribed Metformin as an outpatient but did not start taking it. - Will start SSI and Lantus 10 units BID per weight as inpatient. - Will likely need to start Metformin vs. other oral agent at discharge. - Will need glucometer at discharge (pt. does not have one at home), instructions on a carb consistent diet and follow up PCP in 1-2 weeks (Dr. Cm) (5) Obesity: - BMI 49. - Encourage weight loss and exercise. (6) DVT prophylaxis: - Per primary team. Dispo: Will continue to follow. Will discuss diabetic management prior to discharge and send prescriptions to pharmacy. Supervising Physician Co-Signing Physician Notes Attending Consult Note & Attestation - Pt seen/examined, chart reviewed, care plan d/w ERLINDA Irizarry. I agree w/ the palma components of her documentation. 43yo female with prior h/o breast cancer s/p lumpectomy/chemo/xrt - presented today for LLL wedge resection due to pulmonary nodule. I saw the patient on the surgical floor post-op from her surgery. She complained of mild pain on the left chest. She was sleepy but arousable and able to answer all questions. She denied substernal chest pain or dyspnea. Had nausea/emesis earlier but this resolved. PMH, PSH, allergies, meds, sochx, famhx, ros - reviewed VSS, afebrile gen - obese, NAD, tired mouth - MMM neck - no JVD heart - RRR, s1, s2, no murmur lungs - mildly decreased BS on left, CTA b/l however, normal airation on right abd - soft, NT, ND, BS+ ext - no edema, pulses 2+ b/l A/P: 1. s/p wedge resection LLL due to pulmonary nodule 2. morbid obesity w/ BMI 49.9 3. uncontrolled T2DM 4. hypothyroidism 5. nausea/emesis - resolved agree with BID lantus along with novolog coverage adjust as needed needs dose increase in synthroid as well with repeat TSH in 6 weeks after Thank you for the consult; will follow with you. Kevyn Eller MD History of Present Illness Reason for Consultation: Medical Management Attending Physician: Ike Damico MD, FACS History of Present Illness Ms. Vega is a 43 y/o female with h/o breast cancer currently on Aromasin and Anastrozole, Hypothyroidism, Obesity who presented for a planned procedure, VATS with left upper lobe wedge resection in setting of pulmonary nodule. Pt. was lethargic following surgery. She had nausea/vomiting and received Zofran IV. Her family was at bedside and provided the history. She has had hyperglycemia in the past. Pt. was provided a script for Metformin but has not started taking it yet. She is fearful due to her brother having GI upset with the medication. Pt. does not currently take any medication for diabetes. Allergies Allergy/AdvReac Type Severity Reaction Status Date / Time Anesthetics - Mari Type- AdvReac Severe GI SYMPTOMS Verified 03/29/18 11:12 Parabens Home Medications Home Medications Medication Instructions Recorded Confirmed Type levothyroxine 150 mcg PO DAILY 30 Days #30 tab 05/26/16 03/29/18 History anastrozole 10 mg PO DAILY 30 Days #30 tab 08/25/16 03/29/18 History exemestane [Aromasin] 25 mg PO DAILY 03/28/18 03/29/18 History Patient History Medical History Breast cancer (11/12/15) "STAGING: Left breast, invasive ductal carcinoma, grade 2, ER/AL positive, Her2 negative, [id number], stage II TREATMENT: 1. Lumpectomy/SLN - 11/25/2015 - Dr. Iniguez 2. Status post completion of systemic chemotherapy 4 cycles of Adriamycin and Cytoxan followed by 4 cycles of Taxol- Dr. Fay 3. Status post completion of radiation therapy 07/15/2016 received 6640 cGy" On 12/18/15 12:43 Vaibhav Miguel wrote "STAGING: Left breast, invasive ductal carcinoma, grade 2, ER/AL positive, Her2 negative, [id number], stage II TREATMENT: 1. Lumpectomy/SLN - 11/25/2015 - Dr. Iniguez 2. Chemotherapy planned - Dr. Fay " History of small bowel obstruction (Acute) Hyperglycemia Hypothyroidism Obese Surgical History History of dilatation and curettage (Acute) H/O hernia repair Hx of section S/P lumpectomy, left breast Family History Mother No significant family history Father No significant family history Social History marital status: Single Current Living Situation: Alone Feels Safe at Home: Yes Smoking Status: Never smoker Hx Alcohol Use: No Review of Systems 12 point R.O.S. negative unless specified above in HPI. Physical Exam 2 Vital Signs (Past 24 Hours): Last Vital Signs Temp 36.3 C L 03/29/18 15:21 Pulse 60 03/29/18 16:20 Resp 14 03/29/18 16:20 BP 126/76 03/29/18 16:20 Pulse Ox 99 03/29/18 16:20 Physical Exam: General: Lethargic, accompanied by sister and son at bedside. HEENT: NC/AT; PERRLA with EOMI; [place] conjunctiva, MMM. Neck: Supple and nontender Cardiac: RRR Lungs: on 3L via NC; clear to auscultation Abdomen: Bowel normoactive X 4; Nontender to palpation Extremities: Warm. No edema present Neuro: No focal weakness Skin: No rash Results & Data Laboratory Results 03/29/18 03/29/18 03/29/18 Range/Units 15:32 12:38 12:12 POC Glucose 227 H 237 H (70-99) POC Ur Test (NEG) Blood Type O Negative Antibody Screen NEGATIVE 03/29/18 03/29/18 03/29/18 Range/Units 11:27 11:15 11:12 POC Glucose 350 H (70-99) POC Ur Test NEG (NEG) Blood Type Cancelled Antibody Screen Cancelled
[2018-03-29] MEDS: INSULIN ASPART 100 UNITS/ML 3 ML PEN SC SCH ×2 (18:03→21:25)
[2018-03-29] MEDS: METOCLOPRAMIDE HCL INJ 5 MG/ML 2 ML VIAL IV SCH (18:07)
[2018-03-29] MEDS: SODIUM CHLORIDE 0.9% 1000ML 1,000 ML IV SCH (18:08)
--- NOTE | 2018-03-29 18:33 | Operative Report ---
DATE OF OPERATION: 03/29/2018 PREOPERATIVE DIAGNOSIS: Mass, left lower lobe. POSTOPERATIVE DIAGNOSIS: Apparent organizing pneumonia, left lower lobe. PROCEDURE: Left thoracoscopy with wedge resection left lower lobe mass. SURGEON: Ike Damico MD AFTER SCHOOL PROGRAM DIRECTOR: ERLINDA Winn (MrSarah Meng was present for the entire case and managed the camera while I performed this biopsy. He also closed the skin incisions at the end). ANESTHESIA: General anesthesia and endotracheal intubation using double lumen tube. DESCRIPTION OF PROCEDURE AND FINDINGS: Ms. Vega is a 43-year-old with history of bilateral breast cancers who was found to have a new mass in her left lower lobe, which was suspicious looking. I discussed this with her in the office and she did not want a needle biopsy nor did she want a navigational bronchoscopy. She wished to proceed with a direct excision, so we could "find out what is going on and move on." On 03/29/2018, the patient underwent uncomplicated wedge resection. Frozen section showed this to be an organizing pneumonia. She tolerated it well. The patient brought to operating room and laid in supine position. General anesthesia was induced. Endotracheal intubation was performed with a double lumen tube. The patient had proper monitoring lines and tubes placed when she was placed in right lateral decubitus position. The left chest prepped and draped in usual sterile fashion. After prophylactic antibiotics had been given and appropriate timeout had been called, a 5-mm incision was made for a 5-mm port posteriorly. A 5-mm camera was placed and it can be seen that we were in the pleural cavity and carbon dioxide was insufflated. Another 5-mm port was placed anteriorly and then a 12 mm port was placed also inferiorly, but anteriorly. The mass was easily seen as there was a discoloration and dimpling of the pleura. This was grasped and we wedged out a good portion of this using Endo-PANCHO stapler several times. Rest of the lungs looked very good. There were no adhesions. While waiting for the frozen section, we mixed 266 mg of Exparel with 30 mL of 0.25% bupivacaine and 250 mL of normal saline. The 3 port sites were each injected with the solution and then we used this to perform an intercostal block from the 2nd to the 11th rib. We had really no blood loss with this. There was no air leak. A frozen section came back. We elected to close and a 24-Chilean chest tube was placed through the anterior-superior most port and was directed towards the apex. This was sutured into place with a heavy silk suture. A single 0 Vicryl was used to close the muscle layer of the 12-mm incision and then 4-0 Monocryl was used in running subcuticular fashion to approximate wound edges. She tolerated it well. I attest to the content of the Intraoperative Record and any orders documented therein. Any exception s are noted below.
[2018-03-29] MEDS: DOCUSATE SODIUM 100 MG CAP PO SCH (21:13)
[2018-03-29] MEDS: ACETAMINOPHEN 1,000 MG/100 ML VIAL IV SCH (21:13)
[2018-03-29] MEDS: INSULIN GLARGINE SOLOSTAR 100 UNITS/ML 3 ML PEN SC SCH (21:24)
[2018-03-29] MEDS: NON-FORMULARY PATIENT'S OWN MED PO SCH (21:51)
[2018-03-29] MEDS: AFINITOR PO SCH (21:53)
[2018-03-29] MEDS: LEVOTHYROXINE SODIUM 150 MCG TABLET PO SCH (21:55)
[2018-03-29] MEDS ORDERED: MoRPHine SULFATE 4 MG/ML 1 ML CARP\\VIAL ONE (23:58)
[2018-03-30] MEDS: MoRPHine SULFATE 4 MG/ML 1 ML CARP\\VIAL IV PRN ×3 (01:57→20:53)
[2018-03-30] MEDS: METOCLOPRAMIDE HCL INJ 5 MG/ML 2 ML VIAL IV SCH ×2 (01:58→09:37)
[2018-03-30] MEDS: ACETAMINOPHEN 1,000 MG/100 ML VIAL IV SCH ×4 (06:05→22:04)
[2018-03-30] MEDS: LEVOTHYROXINE SODIUM 150 MCG TABLET PO SCH (07:15)
--- NOTE | 2018-03-30 07:38 | XRay Report ---
XR chest 1V portable CLINICAL HISTORY: 43 years-old Female presenting with lung biopsy . TECHNIQUE: Portable upright AP view of the chest was obtained. COMPARISON: 03/29/2018. FINDINGS: Large bore left pleural drain position at the paramediastinal left mid to upper lung. Cardiomediastin al silhouette normal. Worsened aeration of the lungs with bilateral low lung volumes. Bandlike opacit ies bilaterally new and/or increased from prior. No large effusion. No identifiable pneumothorax allo wing for body habitus and portable technique. Degenerative changes of the thoracic spine. Upper abdom en normal. IMPRESSION: 1. Low lung volumes with hypoventilatory changes with increasing atelectasis. 2. Large bore left pleural drain remains in place. No detectable pneumothorax. Electronically signed by: George Corral M.D. 03/30/2018 7:37 AM
[2018-03-30] MEDS: SODIUM CHLORIDE 0.9% 1000ML 1,000 ML IV SCH (08:01)
[2018-03-30] MEDS ORDERED: PHARMACY GLYCEMIC MGMT CONSULT PRN (08:58)
[2018-03-30] MEDS ORDERED: INSULIN GLARGINE SOLOSTAR 100 UNITS/ML 3 ML PEN SC SCH (09:00)
[2018-03-30] MEDS ORDERED: NON-FORMULARY PATIENT'S OWN MED PO SCH (09:00)
[2018-03-30] MEDS ORDERED: ANASTROZOLE 1 MG TAB PO SCH (09:00)
[2018-03-30] MEDS: AFINITOR PO SCH (09:35)
--- NOTE | 2018-03-30 09:35 | Pharmacy Report ---
Pharmacy Glycemic Short Note 2 - Date of Service March 30, 2018 - Glycemic Short BSG Results (Last 24 hours): 03/29/18 03/29/18 03/29/18 11:15 12:38 15:32 POC Glucose 350 H 237 H 227 H 03/29/18 03/29/18 03/30/18 17:15 20:18 08:03 POC Glucose 294 H 348 H 259 H OUTPATIENT ANTIDIABETIC REGIMEN: * none - prescribed metformin but has not started taking it * A1c 7.8% 03/14/18 ASSESSMENT: * Ms. Vega is a 43yo female with h/o breast cancer s/p lumpectomy/chemo/xrt, She presented for LLL wedge resection due to pulmonary nodule. * New diagnosis of T2DM and currently not on outpatient therapy * BSGs over the past 24 hours have ranged from 259 to 350 mg/dL * Changes needed to insulin regimen: * Fasting BSG of 259 mg/dL is above goal -> increase Lantus dose to 25 units this morning (based on weight/stress 2) * Tighten Novolog correction factor/carb ratio (also based on weight/stress 2) while patient remains in highly insulin resistant state - may need to loosen later today PLAN FOR INPATIENT GLYCEMIC CONTROL: * Hold outpatient oral diabetes medications * Basal insulin - increase * Lantus 25 units SQ this morning, then per scale: * 0 units for BSG < 120 * 12 units for BSG 120-180 * 25 units for BSG > 180 * Bolus insulin - tighten * NovoLog per scale ACHS or Q6hrs while NPO * Goal Range: Low 110 mg/dL - High 140 mg/dL * Correction Factor: 15 mg/dL/unit * Nutritional / Prandial insulin per carb ratio of 1 unit per 5 grams CHO consumed PLAN FOR DISCHARGE: * Start metformin ER 500 mg BID with meals (patient was initially hesitant to start medication due to side effects but she agrees to trial it) * Recommend f/u with outpatient provider within 1-2 weeks to evaluate effect of metformin and titrate or add a second oral agent if patient unable to tolerate higher doses * Inpatient glucose values have been much higher than what would be expected based on A1c
[2018-03-30] MEDS: DOCUSATE SODIUM 100 MG CAP PO SCH ×2 (09:36→20:42)
[2018-03-30] MEDS: ENOXAPARIN INJ 40 MG/0.4 ML SYR SQ SCH (09:36)
[2018-03-30] MEDS: NON-FORMULARY PATIENT'S OWN MED PO SCH (09:36)
[2018-03-30 09:37] LABS: Hematocrit (blood only) 35.2 % (37-47); Hemoglobin 12.2 g/dL (12.0-16.0); Mean Corpuscular Hgb Conc 34.7 g/dL (32-36); Mean Corpuscular Volume 99.2 fL (80-100); Mean Platelet Volume 9.2 fL (7.4-10.4); Platelet Count 193 K/uL (130-400); RDW Coefficient of Variation 13.8 % (11.5-14.5); RDW Standard Deviation 49.6 fL (36.4-46.3); Red Blood Count 3.55 M/uL (4.2-5.4); White Blood Count 8.63 K/uL (4.8-10.8)
[2018-03-30] MEDS: OXYCODONE HCL IR 5 MG TAB (IMMEDIATE RELEASE) PO PRN ×2 (09:46→15:58)
[2018-03-30] MEDS: INSULIN ASPART 100 UNITS/ML 3 ML PEN SC SCH ×5 (09:49→23:55)
[2018-03-30 10:12] LABS: BUN Creatinine Ratio 17.8 (10-20); Calcium 7.8 mg/dl (8.5-10.1); Creatinine Clr Calc Pharmacy 92.2 ml/min; Est GFR (Non-African American) 56.1
[2018-03-30 10:16] LABS: Partial Thromboplastin Time 26.2 Seconds (21.0-31.0); Prothrombin Time 10.4 Seconds (9.0-12.0)
[2018-03-30] MEDS: INSULIN GLARGINE SOLOSTAR 100 UNITS/ML 3 ML PEN SC SCH ×2 (10:31→20:44)
--- NOTE | 2018-03-30 14:21 | XRay Report ---
XR chest 2V routine CLINICAL HISTORY: 43 years-old Female presenting with tube removal . TECHNIQUE: PA and lateral views of the chest were obtained. COMPARISON: 03/30/2018. FINDINGS: Cardiomediastinal silhouette normal. Metallic opacity in the left midlung. Interval removal of the la rge bore left pleural drain. Trace residual soft tissue emphysema along the inferior left lateral prerna st wall. No pleural effusion or pneumothorax. Osseous structures normal. Biopsy clip noted in the rig ht breast. Upper abdomen normal. IMPRESSION: 1. Removal of the large bore left pleural drain. No pneumothorax. 2. Improved lung aeration with minimal left midlung atelectasis. Electronically signed by: George Corral M.D. 03/30/2018 2:20 PM
--- NOTE | 2018-03-30 14:52 | Hospitalist Progress Note ---
Date of Service March 30, 2018 Assessment & Plan (1) Nodule of left lung: - S/p VATS for left lung nodule on 03/29/18, POD#1. - Pathology was negative for metastatic disease. - Pain control per primary team. - Monitor labs qAM. (2) Breast cancer: - Currently receiving Aromasin and Anastrozole. - S/p lung nodule biopsy, no evidence of metastasis. (3) Hypothyroidism: - Continue Synthroid 150 mcg daily. - Most recent TSH was 11.9 on 03/14. - Will need to follow up with PCP to discuss increasing dose. (4) Type II diabetes mellitus: - Hemoglobin A1C was 7.8 on 03/14/18. - Pt. was prescribed Metformin once daily as an outpatient but did not start taking it. - BG has been severely uncontrolled during this admission, 250-350's. - Pharmacy consulted for glycemic management. - special education paraeducator consulted. - Will need glucometer at discharge (does not have one), instructions on carb consistent diet and f/u with PCP in 1 week. - Plan to start Metformin XR vs. Metformin vs. other oral agent at discharge. Will discuss tomorrow. (5) Obesity: - BMI 49. - Encourage weight loss and exercise. (6) Hyponatremia: - Corrected sodium level is 135 in setting of hyperglycemia. - Continue to monitor. (7) DVT prophylaxis: - Per primary team. Dispo: Will continue to follow, pt. is not stable for discharge to home due to uncontrolled hyperglycemia. Supervising Physician Co-Signing Physician Notes Attending Attestation - Chart reviewed in detail, and care plan d/w ERLINDA Irizarry. I agree w/ the palma components of her documentation. Hyperglycemia slowly improving but not optimal. Our team asked the primary team to delay discharge due to the hyperglycemia. She will be kept an additional day to tighten her DM control. Labs and vitals otherwise acceptable from medical standpoint. Kevyn Eller MD Subjective Pt. is more awake and alert today. She has mild pain at site of incision. We discussed diabetic management. Pt. states she has not started Metformin due to other acute issues that have developed recently. She was provided a script for Metformin once daily at home. Pt. is willing to start Metformin when she is discharged. She follows with Dr. Gautam; she was instructed to call his office if she develops GI upset. We discussed a carb consistent diet and the importance of maintaining glucose control. special education paraeducator was also consulted. Plan for discharge on 03/31 if BG is well controlled. Review of Systems All systems reviewed & are unremarkable except as noted in HPI & below Constitutional: no fever, no chills and no weakness Respiratory: no cough and no dyspnea Cardiovascular: no chest pain, no palpitations and no edema Gastrointestinal: no abdominal pain, no nausea, no vomiting and no constipation Genitourinary (Female): no difficulty urinating Allergy / Immunological: no rash Physical Exam 2 Vital Signs (Past 24 Hours): Last Vital Signs Temp 36.4 C L 03/30/18 12:00 Pulse 91 H 03/30/18 12:00 Resp 18 03/30/18 12:00 BP 134/84 03/30/18 12:00 Pulse Ox 95 03/30/18 12:00 Physical Exam: General: Obese female, in no acute distress. HEENT: NC/AT; PERRLA with EOMI; [place] conjunctiva, MMM. Neck: Supple and nontender Cardiac: RRR w/o murmurs, gallops or rubs Lungs: CTA bilaterally; No rhonchi, wheezing, or rales Abdomen: Bowel normoactive X 4; Nontender to palpation Extremities: Warm. +1 bilat LE edema. Neuro: No focal weakness Skin: Left sided incision site with dressing, drain was removed. Results & Data Laboratory Results 03/30/18 03/30/18 03/30/18 Range/Units 12:11 09:26 09:26 WBC 8.63 (4.8-10.8) K/uL RBC 3.55 L (4.2-5.4) M/uL Hgb 12.2 (12.0-16.0) g/dL Hct 35.2 L (37-47) % MCV 99.2 (80-100) fL MCH 34.4 H (25-34) pg MCHC 34.7 (32-36) g/dL RDW Std Deviation 49.6 H (36.4-46.3) fL RDW Coeff of Joshua 13.8 (11.5-14.5) % Plt Count 193 (130-400) K/uL MPV 9.2 (7.4-10.4) fL PT (9.0-12.0) Seconds INR (0.9-1.1) APTT (21.0-31.0) Seconds PTT Ratio Sodium 132 L (136-145) mmol/L Potassium 4.0 (3.5-5.1) mmol/L Chloride 101 (98-107) mmol/L Carbon Dioxide 24 (21-32) mmol/L Anion Gap 7.0 (3-11) BUN 21 H (7-18) mg/dl Creatinine 1.20 (0.6-1.2) mg/dl Est Cr Clr Drug Dosing 92.2 ml/min Est GFR ( Amer) 65.0 Est GFR (Non-Af Amer) 56.1 BUN/Creatinine Ratio 17.8 (10-20) Glucose 284 H (70-99) mg/dl POC Glucose 255 H (70-99) Calcium 7.8 L (8.5-10.1) mg/dl Magnesium 2.0 (1.8-2.4) mg/dl 03/30/18 03/30/18 03/29/18 Range/Units 09:26 08:03 20:18 WBC (4.8-10.8) K/uL RBC (4.2-5.4) M/uL Hgb (12.0-16.0) g/dL Hct (37-47) % MCV (80-100) fL MCH (25-34) pg MCHC (32-36) g/dL RDW Std Deviation (36.4-46.3) fL RDW Coeff of Joshua (11.5-14.5) % Plt Count (130-400) K/uL MPV (7.4-10.4) fL PT 10.4 (9.0-12.0) Seconds INR 1.0 (0.9-1.1) APTT 26.2 (21.0-31.0) Seconds PTT Ratio 1.0 Sodium (136-145) mmol/L Potassium (3.5-5.1) mmol/L Chloride (98-107) mmol/L Carbon Dioxide (21-32) mmol/L Anion Gap (3-11) BUN (7-18) mg/dl Creatinine (0.6-1.2) mg/dl Est Cr Clr Drug Dosing ml/min Est GFR ( Amer) Est GFR (Non-Af Amer) BUN/Creatinine Ratio (10-20) Glucose (70-99) mg/dl POC Glucose 259 H 348 H (70-99) Calcium (8.5-10.1) mg/dl Magnesium (1.8-2.4) mg/dl 03/29/18 03/29/18 Range/Units 17:15 15:32 WBC (4.8-10.8) K/uL RBC (4.2-5.4) M/uL Hgb (12.0-16.0) g/dL Hct (37-47) % MCV (80-100) fL MCH (25-34) pg MCHC (32-36) g/dL RDW Std Deviation (36.4-46.3) fL RDW Coeff of Joshua (11.5-14.5) % Plt Count (130-400) K/uL MPV (7.4-10.4) fL PT (9.0-12.0) Seconds INR (0.9-1.1) APTT (21.0-31.0) Seconds PTT Ratio Sodium (136-145) mmol/L Potassium (3.5-5.1) mmol/L Chloride (98-107) mmol/L Carbon Dioxide (21-32) mmol/L Anion Gap (3-11) BUN (7-18) mg/dl Creatinine (0.6-1.2) mg/dl Est Cr Clr Drug Dosing ml/min Est GFR ( Amer) Est GFR (Non-Af Amer) BUN/Creatinine Ratio (10-20) Glucose (70-99) mg/dl POC Glucose 294 H 227 H (70-99) Calcium (8.5-10.1) mg/dl Magnesium (1.8-2.4) mg/dl
--- NOTE | 2018-03-30 15:26 | Progress Note ---
DATE: 03/30/2018 Ms. Vega is a 43-year-old with bilateral breast cancer, who underwent a wedge resection of a suspicious looking mass in her left lower lobe. It turns out this is an organizing pneumonia. We pulled the patient's chest tube out today and her x-ray looks good this afternoon; however, her blood sugars are very difficult to control. I talked to Dr. Eller and we are going to hold her for 1 more day to see if we can get better control. She is normally followed by Dr. Pankaj Gautam in [place]. Ms. Vega has a flat affect today. Personally, I am quite pleased that this is not a metastatic cancer. At any rate, we will let her be discharged when her blood sugars are better controlled.
[2018-03-30] MEDS ORDERED: INSULIN ASPART 100 UNITS/ML 3 ML PEN SC ONE (23:21)
[2018-03-31] MEDS: INSULIN ASPART 100 UNITS/ML 3 ML PEN SC SCH ×2 (04:05→08:38)
[2018-03-31] MEDS: OXYCODONE HCL IR 5 MG TAB (IMMEDIATE RELEASE) PO PRN (04:12)
[2018-03-31] MEDS: ACETAMINOPHEN 1,000 MG/100 ML VIAL IV SCH (06:10)
[2018-03-31] MEDS: LEVOTHYROXINE SODIUM 150 MCG TABLET PO SCH (06:12)
[2018-03-31] MEDS ORDERED: POLYETHYLENE (MIRALAX) 17 GM PACK PO PRN (06:21)
[2018-03-31 07:45] VITALS: BP 147/73; TEMP 97.7; O2SAT 93
[2018-03-31] MEDS: AFINITOR PO SCH (08:33)
[2018-03-31] MEDS: NON-FORMULARY PATIENT'S OWN MED PO SCH (08:34)
[2018-03-31] MEDS: ENOXAPARIN INJ 40 MG/0.4 ML SYR SQ SCH (08:34)
[2018-03-31] MEDS: DOCUSATE SODIUM 100 MG CAP PO SCH (08:35)
[2018-03-31] MEDS: INSULIN GLARGINE SOLOSTAR 100 UNITS/ML 3 ML PEN SC SCH (08:36)
--- NOTE | 2018-03-31 10:38 | Pharmacy Report ---
Pharmacy Glycemic Short Note 2 - Date of Service March 31, 2018 - Glycemic Short BSG Results (Last 24 hours): 03/30/18 03/30/18 03/30/18 12:11 16:49 20:45 POC Glucose 255 H 236 H 161 H 03/30/18 03/31/18 03/31/18 23:54 04:02 08:14 POC Glucose 163 H 172 H 202 H OUTPATIENT ANTIDIABETIC REGIMEN: * none - prescribed metformin but has not started taking it * A1c 7.8% 03/14/18 ASSESSMENT: * Ms. Vega is a 43yo female POD #2 s/p VATS procedure due to lung nodule. Pathology revealed organizing pneumonia. * New diagnosis of T2DM and currently not on outpatient therapy * Improvement in BSGs noted over the past 12 hours. * Yamilka received 97 units of insulin yesterday (37 units basal/60 units of bolus) * This is significantly more insulin than I would have expected based on patients A1c * Changes needed to insulin regimen: * Fasting BSG = 202 mg/dL. This is a significant improvement compared to yesterday but BSG remains above goal. Continue Lantus dose per scale. * Post prandial BSGs are trending downward. Will tighten correction factor only. PLAN FOR INPATIENT GLYCEMIC CONTROL: * Hold outpatient oral diabetes medications * Basal insulin * Lantus SQ per scale BID * 0 units for BSG < 120 * 12 units for BSG 120-180 * 25 units for BSG > 180 * Bolus insulin - tighten CF * NovoLog per scale ACHS or Q6hrs while NPO * Goal Range: Low 120 mg/dL - High 140 mg/dL * Correction Factor: 12 mg/dL/unit * Nutritional / Prandial insulin per carb ratio of 1 unit per 5 grams CHO consumed PLAN FOR DISCHARGE: * Start metformin ER 500 mg BID with meals (patient was initially hesitant to start medication due to side effects but she agrees to trial it) * Recommend f/u with outpatient provider within 1-2 weeks to evaluate effect of metformin and to titrate dose or add a second oral agent if patient unable to tolerate higher doses * Inpatient glucose values have been much higher than what would be expected based on A1c
--- NOTE | 2018-03-31 11:07 | Hospitalist Progress Note ---
Date of Service March 31, 2018 Assessment & Plan (1) Nodule of left lung: - S/p VATS for left lung nodule on 03/29/18, POD#2. - Pathology negative for metastatic disease. - Pain control per primary team. - Monitor labs qAM - pt. refused lab work this morning. (2) Breast cancer: - Currently receiving Aromasin and Anastrozole. - S/p lung nodule biopsy, no evidence of metastasis. (3) Hypothyroidism: - Continue Synthroid 150 mcg daily. - Most recent TSH was 11.9 on 03/14. - Will need to follow up with PCP to discuss increasing Synthroid dose. (4) Type II diabetes mellitus: - Hemoglobin A1C was 7.8 on 03/14/18. - BG was severely uncontrolled post op, 250-350's. Pharmacy consulted for glycemic management, required large doses of both bolus and basal insulin. - Pt. has script for Metformin at home but did not start taking -- she was agreeable to start Metformin 500 mg daily at home. - Has f/u with Dr. Gautam on Wednesday; advised to call his office if she develops GI upset 2/2 Metformin. - religious educator consulted, met with pt. prior to discharge. - Will likely need increased dose of Metformin vs. another agent based on blood glucose levels during this admission. Her hemoglobin A1C was not consistent with uncontrolled glucose levels during this admission. (5) Obesity: - BMI 49. - Encourage weight loss and exercise. (6) Hyponatremia: - Corrected sodium level is 135 in setting of hyperglycemia. - Pt. refused labs this morning. (7) DVT prophylaxis: - Per primary team. Dispo: Discharge this morning, has f/u with PCP on Wednesday. Supervising Physician Co-Signing Physician Notes Attending Attestation - Chart reviewed in detail, and care plan d/w ERLINDA Irizarry. I agree w/ the palma components of her documentation. Glycemic control has improved since admission. Patient IS willing to take metformin xr at discharge. She has close f/u with her PCP scheduled to ensure her glycemic control continues to be adequate. From medical standpoint ok for d/c home. Kevyn Eller MD Subjective Pt. was doing well today, anxious to get home. She was agreeable to starting Metformin script, will f/u with Dr. Gautam on [place] [address]. religious educator consulted. Pt. refused labs this morning. Review of Systems All systems reviewed & are unremarkable except as noted in HPI & below Constitutional: no fever and no chills Respiratory: no cough and no dyspnea Cardiovascular: no chest pain, no palpitations and no edema Gastrointestinal: no abdominal pain, no nausea and no constipation Allergy / Immunological: no rash Physical Exam 2 Vital Signs (Past 24 Hours): Last Vital Signs Temp 36.5 C 03/31/18 07:39 Pulse 82 03/31/18 07:39 Resp 16 03/31/18 07:39 BP 147/73 H 03/31/18 07:39 Pulse Ox 93 03/31/18 07:39 Physical Exam: General: Obese female, in no acute distress. HEENT: NC/AT; PERRLA with EOMI; [employer] conjunctiva, MMM. Neck: Supple and nontender Cardiac: RRR w/o murmurs, gallops or rubs Lungs: CTA bilaterally; No rhonchi, wheezing, or rales Abdomen: Bowel normoactive X 4; Nontender to palpation Extremities: Warm. +1 bilat LE edema. Neuro: No focal weakness Skin: Left sided incision site with dressing. Results & Data Laboratory Results 03/31/18 03/31/18 03/30/18 Range/Units 08:14 04:02 23:54 POC Glucose 202 H 172 H 163 H (70-99) 03/30/18 03/30/18 03/30/18 Range/Units 20:45 16:49 12:11 POC Glucose 161 H 236 H 255 H (70-99)
[2018-03-31 11:55] VITALS: PULSE 94
--- NOTE | 2018-03-31 20:06 | Discharge Summary ---
DISCHARGE DIAGNOSES: 1. Apparent chronic organizing pneumonia, left lower lobe. 2. History of bilateral breast cancer. 3. Hyperglycemia. HOSPITAL COURSE: Yamilka Vega is an obese female who has a history of bilateral breast cancers. There is evidence that she may well have metastatic disease in her bone. She developed a new nodular lesion in left lower lobe, which is concerning in appearance. I was asked to see her for this. We outlined several options including observation, needle biopsy, navigational bronchoscopy, or wedge resection. She wished to proceed with a wedge resection for many reasons. One would be the expediency. I saw her in the office on 03/28/2018 set her up for surgery on 03/29/2018 and she was discharged home 03/31/2018. On 03/29/2018, the patient was brought to the operating room and underwent a left thoracoscopy with wedge resection of this mass without difficulty. Frozen section suggested chronic organizing pneumonia and the permanent sections confirmed this. So far, our Gram stain, AFB smear, and fungal smears were negative for organisms. She did very well from our surgical standpoint. We removed her tube on postop day 1. She had very little drainage and no air leak. Her x-ray looked quite good. Unfortunately, her blood sugars were out of control and hospitalist service spearheaded by Dr. Holger Eller, worked hard to get this back under control and to adjust her medications. She is followed by Dr. Pankaj Gautam in [place]. She has an appointment to see him in just a few days. She was discharged home. Her incisions look good. Three dressings were in place and her incision and her x-ray looked quite good after we pulled her tube yesterday. She was ambulating in the hallway and tolerating a diet and on room air. We will see her back in the office in another 10 days or so to go over her final cultures. Thus far, it have not grown anything. I was quite pleased with her response.
== END 2018-03-31 12:35 | disposition home or self-care (01) | DRG 164 ==
LOC: ASU 10:40 → 3N 15:15
DX: C50.911 Malignant neoplasm of unspecified site of right female breast; E11.65 Type 2 diabetes mellitus with hyperglycemia; Z68.42 Body mass index [BMI] 45.0-49.9, adult; R91.1 Solitary pulmonary nodule; J84.116 Cryptogenic organizing pneumonia; E87.1 Hypo-osmolality and hyponatremia; E66.01 Morbid (severe) obesity due to excess calories; E03.9 Hypothyroidism, unspecified

== ENCOUNTER 2023-01-07 15:13 | Inpatient (IN) ==
--- NOTE | 2023-01-07 16:08 | Emergency Department Note ---
Impression & Plan Cholecystitis, Abdominal pain, Vomiting ED Provider Note NAME: DEMETRIA CHAN AGE: 47 SEX: F : 1975 ARRIVES VIA: Walk-In INFORMANT: Patient ED PROVIDER(S): Jose David Francisco DO CHIEF COMPLAINT: vomiting HPI: Patient is a 47-year-old female with metastatic breast cancer undergoing chemotherapy with Dr. Zapien who presents to the ER for vomiting twice a day for the past 3 weeks since she got a new course of chemo. This is her second dose of the new course of chemo. She denies any headache or change in vision. No chest pain or shortness of breath. No dysuria, urgency, or frequency. No other exacerbating or remitting factors. ADDITIONAL HISTORY OBTAINED: Per HPI Chronic Medical/Social Conditions Affecting Care: Per HPI PAST MEDICAL HISTORY:See Below PAST SURGICAL HISTORY:See Below FAMILY HISTORY:See Below SOCIAL HISTORY:See Below HOME MEDICATIONS:See Below ALLERGIES:See Below VITALS:See Below PHYSICAL EXAMINATION: GENERAL: Sitting up in bed, alert, well appearing, well nourished, no distress, non-toxic EYE EXAM: normal conjunctiva. OROPHARYNX: no exudate, no erythema, lips, buccal mucosa, and tongue normal and mucous membranes are moist NECK: supple, no nuchal rigidity, no adenopathy, non-tender LUNGS: Clear to auscultation. Normal chest wall mechanics HEART: no murmurs, S1 normal and S2 normal ABDOMEN: abdomen soft, non-tender, normo-active bowel sounds, no masses, no rebound or guarding. UPPER EXTREMITIES: upper extremities are grossly normal. LOWER EXTREMITIES: No pitting edema. NEURO EXAM: Normal sensorium, cranial nerves II-XII grossly intact, normal speech, no gross weakness of arms, no gross weakness of legs. MEDICAL DECISION MAKING: Patient is a 47-year-old female who presents ER for above-stated complaint. IV was established blood work was obtained. Labs show no significant leukocytosis or anemia. BMP along LFTs shows an elevated glucose at 301. LFTs and lipase is unremarkable. UA was contaminated. Patient was covered with IV antibiotics. CT abdomen pelvis suggest acute cholecystitis but she has no tenderness in the right upper quadrant. Discussed with Dr. Forde recommended admission to medicine and HIDA scan. Discussed with [facility] hospitalist. Patient was given IV fluids, morphine and Reglan. She was updated bedside. She was feeling better. External Records Reviewed: Follows with palliative radiation for palliative radiation for thoracic spine Consults/Care Managements Discussions: Per MDM Triage Nursing notes reviewed. Limited review of prior medical records performed Vital Signs: reviewed and remarkable for no significant abnormalities Differential diagnosis: Differential diagnoses includes but is not limited to gastritis, peptic ulcer disease, GERD, gallbladder disease, pancreatitis, small bowel obstruction, appendicitis, diverticulitis, hernia, urinary tract infection, torsion, [/ectopic (if female)], perforation, trauma, infectious. ER treatment provided: See below Diagnostics interpreted by me include EKG and cardiac monitoring as listed below: -Cardiac Monitoring: An order was placed for continuous cardiac monitoring. The monitor shows a rate of 90 with sinus rhythm. -ECG: none -Laboratory studies:Interpreted by me as stated above in MDM and shown below. Imaging studies: Xrays: As interpreted by me:none CTs show: CT abdomen pelvis per my read showed no obvious bowel obstruction CT abdomen pelvis shows possible acute cholecystitis Critical Care: None Past Med/Surg History Medical History Arthritis Bilateral breast cancer Breast cancer (11/12/15) Stage 4 (+ mets) Depression with anxiety Heart palpitations R/t anxiety per patient History of COVID-19 12/2020 + 12/2021 > residual taste dysfunction and feeling of need to clear throat History of small bowel obstruction Hx bowel obstruction Hypothyroidism No current meds Liver spots "Mets from cancer" Peripheral neuropathy Type II diabetes mellitus Surgical History H/O hernia repair History of bowel resection D/T BOWEL OBSTRUCTION History of dilatation and curettage History of endometrial ablation History of lung surgery Left thoracoscopy with wedge resection left lower lobe Dr. Damico 03/29/2018 History of surgery Left Excisional Debridement of Buttock Wound History of tooth extraction History of vascular access device PORT INSERTION/REMOVAL Hx of section x3 Nausea and vomiting after administration of anesthetic agent "EXTREME" Port-A-Cath in place (04/30/22) Insertion Access Port left subclavian with Fluoroscopy(Left) - Chad Banuelos, S/P lumpectomy, left breast LEFT ARM LIMB RESTRICTION Family History Mother , 77yo Diabetes Heart disease Aortic valve replacement Mitral valve calcifications UTI (urinary tract infection) Father , 62yo Diabetes Myocardial infarction Hypertension Stroke Brother Diabetes Myocardial infarction Cardiac stents Pacemaker Hypertension Sister No problems noted. Daughter No problems noted. Son No problems noted. Son No problems noted. Other No family history of adverse response to anesthesia Social History Smoking Status: Never smoker Second Hand Exposure: Yes ( A CHILD); Do You Dip or Chew Tobacco: No; Hx Alcohol Use: Yes Alcohol type: hard liquor Alcohol Intake Frequency: Monthly or Less Hx Substance Use: No Preferred Language: Pashto Communication Ability: Effective Visual Impairment: No Limitations Hearing Ability: Normal Weights And Measures Sealer Required: No Beliefs That Will Affect Care: None marital status: Single Current Living Situation: Family Current Living Situation Comment: Lives with her kids 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 How many Children do You have: 3 Feels Safe at Home: Yes Diet: regular caffeine: No during the past year weight has: remained stable Assistive Devices: Denture - Upper, Denture - Lower and Glasses Allergies Allergies Allergy/AdvReac Type Severity Reaction Status Date / Time No Known Allergies Allergy Verified 12/27/22 22:45 Home Meds Home Medications Medication Instructions Recorded Confirmed denosumab 120 mg/1.7 mL (70 mg/mL) 120 mg subcut .Q 3months 01/01/22 01/07/23 subcutaneous solution (Xgeva) gabapentin 300 mg capsule 300 mg PO DAILY 07/30/22 01/07/23 blood-glucose sensor (Dexcom G6 12/17/22 01/07/23 Sensor device) blood-glucose transmitter (Dexcom 12/17/22 01/07/23 G6 Transmitter device) cyclobenzaprine 10 mg tablet 10 mg PO HS 12/17/22 01/07/23 dexamethasone 4 mg tablet See Rx Instructions .Route .COMPLEX 12/17/22 01/07/23 insulin aspart U-100 100 unit/mL 10 unit subcut TID 12/17/22 01/07/23 (3 mL) subcutaneous pen (Novolog FlexPen U-100 Insulin aspart) insulin glargine 100 unit/mL (3 40 unit subcut BID 12/17/22 01/07/23 mL) subcutaneous pen (Lantus Solostar U-100 Insulin) levothyroxine 137 mcg tablet 137 mcg PO DAILY 12/17/22 01/07/23 nitroglycerin 0.4 mg sublingual 0.4 mg sublingual Q5M PRN Chest 12/17/22 01/07/23 tablet (Nitrostat) Pain ondansetron HCl 8 mg tablet 8 mg PO Q12H 12/17/22 01/07/23 pen needle, diabetic 32 gauge x 12/17/22 01/07/2332" (BD Ultra-Fine Aletha Pen Needle) oxycodone 10 mg tablet 10 - 20 mg PO Q4 PRN Pain 01/07/23 01/07/23 Previous Rx's Medication Instructions Recorded oxycodone 5 mg tablet 5 - 10 mg (1 - 2 x 5 mg) PO 04/25/20 .[id number] PRN pain, for initial therapy, max 6 tabs per day #6 tabs promethazine 25 mg rectal 25 mg WA Q6H PRN sedation #12 ea 12/27/22 suppository Results & Data (ED) Vital Signs Vital Signs - 24 hr 01/07/23 15:27 01/07/23 16:50 01/07/23 20:53 Temperature 36.9 C Temperature Source Temporal Artery Scan Pulse Rate 95 H 82 86 Respiratory Rate 16 Respiratory Effort / Characteristics Non-Labored Spontaneous Respiratory Depth Normal Blood Pressure 116/89 Blood Pressure Mean 98 Pulse Oximetry 99 Oxygen Delivery Method Room Air Sepsis Recent Fever Within 48 Hours No Sepsis New/Unexplained Change in Mental Status N/A Sepsis Action Taken by Nursing No Action Required Laboratory Data 01/07/23 16:45 01/07/23 16:45 Lab Results 01/07/23 Range/Units 16:45 WBC 9.20 (4.8-10.8) K/ul RBC 3.47 L (4.20-5.40) M/uL Hgb 11.1 L (12.0-16.0) g/dl Hct 31.2 L (37.0-47.0) % MCV 89.9 (80.0-100.0) fL MCH 32.0 (25.0-34.0) pg MCHC 35.6 (32.0-36.0) g/dL RDW Std Deviation 52.9 H (36.4-46.3) fL RDW Coeff of Joshua 16.6 H (11.5-14.5) % Plt Count 246 (130-400) K/uL MPV 9.9 (9.4-12.4) fL Immature Gran % (Auto) 1.3 % Neut % (Auto) 68.7 % Lymph % (Auto) 21.2 % Haines % (Auto) 6.8 % Eos % (Auto) 1.3 % Baso % (Auto) 0.7 % Neut # (Auto) 6.32 (1.40-6.50) K/uL Lymph # (Auto) 1.95 (1.20-3.40) K/uL Haines # (Auto) 0.63 H (0.11-0.59) K/uL Eos # (Auto) 0.12 (0.00-0.50) K/uL Baso # (Auto) 0.06 (0.00-0.20) K/uL Immature Gran # (Auto) 0.12 (0.01-0.20) K/uL Sodium 136 (136-145) mmol/L Potassium 3.7 (3.5-5.1) mmol/L Chloride 101 (98-107) mmol/L Carbon Dioxide 26 (21-32) mmol/L Anion Gap 9 (3-11) BUN 12 (6-23) mg/dl Creatinine 0.79 (0.6-1.2) mg/dl Est Cr Clr Drug Dosing Not Reportable Est GFR ( Amer) 104.8 ml/min Est GFR (Non-Af Amer) 90.4 ml/min BUN/Creatinine Ratio 15.2 (10-20) Glucose 301 H* (70-99(Fasting)) mg/dl Calcium 10.0 (8.6-10.3) mg/dl Total Bilirubin 1.0 (0.2-1.0) mg/dl AST 19 (13-39) U/L ALT 72 H (7-52) U/L Alkaline Phosphatase 243 H (34-104) U/L Total Protein 7.5 (6.0-8.3) gm/dl Albumin 3.6 (3.4-5.0) gm/dl Globulin 3.9 (2.5-4.0) gm/dl Albumin/Globulin Ratio 0.9 (0.9-2) Lipase 4 L (11-82) U/L Urine Color Sawyer Urine Appearance Cloudy A (Clear) Urine pH 5.5 (4.5-7.5) Ur Specific [place] 1.037 H (1.000-1.030) Urine Protein Trace H (Negative) Urine Glucose (UA) 3+ H (Negative) Urine Ketones Trace H (Negative) Urine Blood 2+ H (Negative) Urine Nitrite Negative (Negative) Urine Bilirubin Negative (Negative) Urine Urobilinogen Negative (Negative) Ur Leukocyte Esterase 1+ H (Negative) Urine WBC (Auto) >30 H (0-5) /hpf Urine RBC (Auto) 10-30 H (0-4) /hpf U Hyaline Cast (Auto) 10-30 H (0-5) /lpf U Epithel Cells (Auto) 20-30 H (0-5) /lpf Urine Bacteria (Auto) 4+ H (Negative) Urine Yeast Not Reportable Administered Medications Discontinued Medications Sodium Chloride (Nss) 1,000 mls @ 999 mls/hr IV .Q1H1M JESSE Stop: 01/07/23 18:15 Last Infusion: 01/07/23 20:10 Dose: Infused Documented By: Admin: 01/07/23 16:55 Dose: 999 mls/hr Documented By: Infusion: 01/07/23 16:55 Dose: Infused Documented By: Admin: 01/07/23 16:39 Dose: 999 mls/hr Documented By: ACC Piperacillin Sod/Tazobactam Sod (Zosyn) 4.5 gm in 100 mls @ 200 mls/hr IV NOW ONE Stop: 01/07/23 19:40 Last Infusion: 01/07/23 20:43 Dose: Infused Documented By: Admin: 01/07/23 20:02 Dose: 200 mls/hr Documented By: ACC Sodium Chloride (Nss) 1,000 mls @ 999 mls/hr IV .Q1H1M JESSE Stop: 01/07/23 20:12 Last Admin: 01/07/23 20:02 Dose: 999 mls/hr Documented By: ACC Ioversol (Optiray 320 100ml) 94 ml IV ONCE ONE Stop: 01/07/23 18:06 Last Admin: 01/07/23 18:05 Dose: 94 ml Documented By: PLW Metoclopramide HCl (Metoclopramide Hcl Inj 5 Mg/Ml 2 Ml Vial) 10 mg IV NOW STA Stop: 01/07/23 16:41 Last Admin: 01/07/23 16:52 Dose: 10 mg Documented By: ACC Morphine Sulfate (Morphine Sulfate 10 Mg/Ml Carp/Vial) 6 mg IV NOW STA Stop: 01/07/23 19:49 Last Admin: 01/07/23 20:03 Dose: 6 mg Documented By: ACC Ondansetron HCl (Ondansetron Inj 2 Mg/Ml 2 Ml Vial) 4 mg IV NOW STA Stop: 01/07/23 16:10 Last Admin: 01/07/23 18:20 Dose: Not Given Documented By: ACC Imaging Data Radiologist's Impression: Abdomen/Pelvis CT 01/07/23 16:09 CT abd pelvis IV con only CLINICAL HISTORY: abd pain n/v TECHNIQUE: Helical axial images of the abdomen and pelvis were obtained and displayed. Automated dose lowering techniques and/or adjustment according to patient size were utilized for this exam. This exam was performed with intravenous contrast. CT DOSE: 1507.39 mGy.cm COMPARISON: Comparison is made to CT abdomen pelvis 11/16/2022 FINDINGS: Lower chest: No acute abnormality. Liver: Unremarkable. No focal lesions are seen. Gallbladder and biliary tree: Enlargement gallbladder is seen with ill-defined layering sludge and pericholecystic fluid. Gallbladder wall measures approximately 3.5 mm. No intra- or extrahepatic biliary ductal dilation. Pancreas: Unremarkable, no focal lesions. Spleen: Unremarkable. Adrenals: Unremarkable. Kidneys and ureters: Unremarkable. Bladder: Limited evaluation due to underdistention. Reproductive organs: Unremarkable. Bowel: The appendix is normal. Lymph nodes Retroperitoneal: Unremarkable. Pelvic: Unremarkable. Mesenteric: Unremarkable. Peritoneum: A small amount of free fluid is seen. Vessels: Unremarkable. Abdominal wall: A midline hernia mesh is seen. Bones: Mottled appearance of the spine with blastic lesions. IMPRESSION: 1. There is enlargement and wall thickening of the gallbladder with pericholecystic fluid concerning for acute cholecystitis. Gallbladder sludge is seen. 2. Otherwise no acute abnormalities are seen. ACT 112: Negative or not required by law. Electronically signed by: Mariano Guerrier M.D. 01/07/2023 7:07 PM Discharge Plan Visit Data Chief Complaint: Vomiting Stated Complaint: VOMITING, UNDERGOING CHEMO ED Provider: Jose David Francisco Discharge Problem: Cholecystitis, Abdominal pain, Vomiting Forms Stand Alone Forms: [facility] [place] [employer] Prescriptions Prescriptions: No Action gabapentin 300 mg capsule 300 mg PO DAILY Xgeva 120 mg/1.7 mL (70 mg/mL) solution 120 mg subcut .Q 3months (DME) Dexcom G6 Sensor Device See Rx Instructions .Route Rx Instructions: Change sensor every 10 days (DME) Dexcom G6 Transmitter Device See Rx Instructions .Route Rx Instructions: change transmitter every 90 days insulin aspart U-100 [Novolog FlexPen U-100 Insulin] 100 unit/mL (3 mL) insulin pen 10 unit subcut TID levothyroxine 137 mcg tablet 137 mcg PO DAILY cyclobenzaprine 10 mg tablet 10 mg PO HS nitroglycerin [Nitrostat] 0.4 mg tablet, sublingual 0.4 mg sublingual Q5M PRN (Reason: Chest Pain) Rx Instructions: do not exceed 3 doses per episode (DME) pen needle, diabetic [BD Ultra-Fine Aletha Pen Needle] 32 gauge x 5/32" needle See Rx Instructions .Route Rx Instructions: Use 1 three times a day with insulin injection ondansetron HCl 8 mg tablet 8 mg PO Q12H dexamethasone 4 mg tablet See Rx Instructions .ROUTE .COMPLEX Rx Instructions: Take 5 tablets Wednesday night and Wednesday morning prior to chemo; oxycodone 5 mg tablet 5 - 10 mg PO .[id number] PRN (Reason: pain, for initial therapy, max 6 tabs per day) Qty: 6 0RF Lantus Solostar U-100 Insulin 100 unit/mL (3 mL) insulin pen 40 unit SUBCUT BID oxycodone 10 mg tablet 10 - 20 mg PO Q4 PRN (Reason: Pain) promethazine 25 mg suppository 25 mg WA Q6H PRN (Reason: sedation) Qty: 12 0RF Referrals Referrals: PCP,NO [Primary Care Provider] - Discharge Problem: Abdominal pain Qualifiers: Abdominal location: unspecified location Qualified Code(s): R10.9 - Unspecified abdominal pain Vomiting Qualifiers: Vomiting type: unspecified Nausea presence: unspecified Qualified Code(s): R 11.10 - Vomiting, unspecified
[2023-01-07] MEDS ORDERED: ONDANSETRON INJ 2 MG/ML 2 ML VIAL IV STA (16:09)
[2023-01-07] MEDS: SODIUM CHLORIDE 0.9% 1,000 ML IV SCH ×2 (16:39→16:55)
[2023-01-07] MEDS ORDERED: METOCLOPRAMIDE HCL INJ 5 MG/ML 2 ML VIAL IV STA (16:40)
[2023-01-07 17:02] LABS: Basophils # (auto) 0.06 K/uL (0.00-0.20); Basophils % (auto) 0.7 %; Eosinophils # (auto) 0.12 K/uL (0.00-0.50); Eosinophils % (auto) 1.3 %; Hematocrit (blood only) 31.2 % (37.0-47.0); Hemoglobin 11.1 g/dl (12.0-16.0); Immature Granulocytes # (auto) 0.12 K/uL (0.01-0.20); Immature Granulocytes % (auto) 1.3 %; Lymphocytes # (auto) 1.95 K/uL (1.20-3.40); Lymphocytes % (auto) 21.2 %; Mean Corpuscular Hgb Conc 35.6 g/dL (32.0-36.0); Mean Corpuscular Volume 89.9 fL (80.0-100.0); Mean Platelet Volume 9.9 fL (9.4-12.4); Monocytes # (auto) 0.63 K/uL (0.11-0.59); Monocytes % (auto) 6.8 %; Neutrophils # (auto) 6.32 K/uL (1.40-6.50); Neutrophils % (auto) 68.7 %; Platelet Count 246 K/uL (130-400); RDW Coefficient of Variation 16.6 % (11.5-14.5); RDW Standard Deviation 52.9 fL (36.4-46.3); Red Blood Count 3.47 M/uL (4.20-5.40)
[2023-01-07 17:25] LABS: Alanine Aminotransferase 72 U/L (7-52); Albumin Globulin Ratio 0.9 (0.9-2); Albumin Level 3.6 gm/dl (3.4-5.0); Alkaline Phosphatase 243 U/L (34-104); Anion Gap 9 (3-11); Aspartate Aminotransferase 19 U/L (13-39); BUN Creatinine Ratio 15.2 (10-20); Blood Urea Nitrogen 12 mg/dl (6-23); Carbon Dioxide 26 mmol/L (21-32); Chloride 101 mmol/L (98-107); Est GFR (African American) 104.8 ml/min; Est GFR (Non-African American) 90.4 ml/min; Globulin 3.9 gm/dl (2.5-4.0); Glucose 301 mg/dl (70-99(Fasting)); Lipase 4 U/L (11-82); Potassium 3.7 mmol/L (3.5-5.1); Sodium 136 mmol/L (136-145); Total Protein 7.5 gm/dl (6.0-8.3)
[2023-01-07 17:48] LABS: Appearance Urine Cloudy (Clear); Bacteria Urine Automated 4+ (Negative); Bilirubin Urine Negative (Negative); Blood Urine 2+ (Negative); Color Urine Orange; Epithelial Cell Urine Auto 20-30 /lpf (0-5); Glucose Urine UA 3+ (Negative); Ketones Urine Trace (Negative); Leukocyte Esterase Urine 1+ (Negative); Nitrite Urine Negative (Negative); Protein Urine Trace (Negative); Specific Gravity Urine 1.037 (1.000-1.030); Urobilinogen Urine Negative (Negative); WBC Urine Automated >30 /hpf (0-5); pH Urine 5.5 (4.5-7.5)
[2023-01-07] MEDS ORDERED: OPTIRAY 320 100ml IV ONE (18:05)
--- NOTE | 2023-01-07 19:09 | CT Scan Report ---
CT abd pelvis IV con only CLINICAL HISTORY: abd pain n/v TECHNIQUE: Helical axial images of the abdomen and pelvis were obtained and displayed. Automated dose lowering techniques and/or adjustment according to patient size were utilized for this exam. This e xam was performed with intravenous contrast. CT DOSE: 1507.39 mGy.cm COMPARISON: Comparison is made to CT abdomen pelvis 11/16/2022 FINDINGS: Lower chest: No acute abnormality. Liver: Unremarkable. No focal lesions are seen. Gallbladder and biliary tree: Enlargement gallbladder is seen with ill-defined layering sludge and pe richolecystic fluid. Gallbladder wall measures approximately 3.5 mm. No intra- or extrahepatic biliar y ductal dilation. Pancreas: Unremarkable, no focal lesions. Spleen: Unremarkable. Adrenals: Unremarkable. Kidneys and ureters: Unremarkable. Bladder: Limited evaluation due to underdistention. Reproductive organs: Unremarkable. Bowel: The appendix is normal. Lymph nodes Retroperitoneal: Unremarkable. Pelvic: Unremarkable. Mesenteric: Unremarkable. Peritoneum: A small amount of free fluid is seen. Vessels: Unremarkable. Abdominal wall: A midline hernia mesh is seen. Bones: Mottled appearance of the spine with blastic lesions. IMPRESSION: 1. There is enlargement and wall thickening of the gallbladder with pericholecystic fluid concerning for acute cholecystitis. Gallbladder sludge is seen. 2. Otherwise no acute abnormalities are seen. ACT 112: Negative or not required by law. Electronically signed by: Mariano Guerrier M.D. 01/07/2023 7:07 PM
[2023-01-07] MEDS ORDERED: PIPERACILLIN/TAZOBACTAM 4.5 GM/100 ML BAG IV ONE (19:11)
[2023-01-07] MEDS ORDERED: SODIUM CHLORIDE 0.9% 1,000 ML IV SCH (19:12)
[2023-01-07] MEDS ORDERED: MoRPHine SULFATE 10 MG/ML CARP/VIAL IV STA (19:48)
--- NOTE | 2023-01-07 22:23 | History & Physical Report ---
Date of Service January 07, 2023 Assessment & Plan (1) Vomiting: Plan: 47-year-old female past med history significant for metastatic breast cancer, diabetes ,hypothyroidism comes because of ongoing nausea and vomiting since last chemo 3 weeks ago. Persistent nausea and vomiting CT scan questionable cholecystitis We will get HIDA scan Empiric Zosyn Pain control N.p.o. IV fluids Consult surgery in a.m. UTI We will follow cultures On Zosyn Diabetes Cut back on Lantus 20 twice daily as patient is n.p.o. Insulin sliding scale We will monitor blood sugars Follow HbA1c levels Hypothyroidism On Synthyroid Metastatic breast cancer Ongoing chemo and radiation Follows with heme-onc DVT prophylaxis SCDs for now if no procedure planned will place on Lovenox. Disposition Medical floor Full code History of Present Illness Chief Complaint: Nausea and vomiting Primary Care Provider: NO PCP 47-year-old female past med history significant for metastatic breast cancer, diabetes ,hypothyroidism comes because of ongoing nausea and vomiting since last chemo 3 weeks ago. Patient states she was recently in [facility] for same. As not getting better her heme-onc doctor advised to come to the ER to get imaging studies as per patient. Has mild right lower quad abdominal discomfort. Denies any headache. No blurred visions. No headache. No runny nose. Has some sore throat from coughing. She had some chest pain few days back and thinks it from from nausea and vomiting but that resolved now. No shortness of breath. Normal bowel and bladder movements. Current resting comfortable hemodynamically stable. Past medical history. As mentioned above Past surgical history. 3 C-sections., Left lumpectomy. In the repair. Biopsy of the lung. I&D of abscess in the back. Social history. Denies smoking. No alcohol. No drug use. Family history. Mother had rheumatic fever. Diabetes. Father had CAD. Diabetes. Asbestosis. Brother has diabetes. Allergies Allergy/AdvReac Type Severity Reaction Status Date / Time No Known Allergies Allergy Verified 12/27/22 22:45 Home Medications Medication Instructions Recorded Confirmed Type oxycodone 5 mg tablet 5 - 10 mg (1 - 2 x 5 mg) PO 04/25/20 01/07/23 Rx .[id number] PRN pain, for initial therapy, max 6 tabs per day #6 tabs denosumab 120 mg/1.7 mL (70 mg/mL) 120 mg subcut .Q 3months 01/01/22 01/07/23 History subcutaneous solution (Xgeva) gabapentin 300 mg capsule 300 mg PO DAILY 07/30/22 01/07/23 History blood-glucose sensor (Dexcom G6 12/17/22 01/07/23 History Sensor device) blood-glucose transmitter (Dexcom 12/17/22 01/07/23 History G6 Transmitter device) cyclobenzaprine 10 mg tablet 10 mg PO HS 12/17/22 01/07/23 History dexamethasone 4 mg tablet See Rx Instructions .Route .COMPLEX 12/17/22 01/07/23 History insulin aspart U-100 100 unit/mL 10 unit subcut TID 12/17/22 01/07/23 History (3 mL) subcutaneous pen (Novolog FlexPen U-100 Insulin aspart) insulin glargine 100 unit/mL (3 40 unit subcut BID 12/17/22 01/07/23 History mL) subcutaneous pen (Lantus Solostar U-100 Insulin) levothyroxine 137 mcg tablet 137 mcg PO DAILY 12/17/22 01/07/23 History nitroglycerin 0.4 mg sublingual 0.4 mg sublingual Q5M PRN Chest 12/17/22 01/07/23 History tablet (Nitrostat) Pain ondansetron HCl 8 mg tablet 8 mg PO Q12H 12/17/22 01/07/23 History pen needle, diabetic 32 gauge x 12/17/22 01/07/23 History 5/32" (BD Ultra-Fine Aletha Pen Needle) promethazine 25 mg rectal 25 mg MN Q6H PRN sedation #12 ea 12/27/22 01/07/23 Rx suppository oxycodone 10 mg tablet 10 - 20 mg PO Q4 PRN Pain 01/07/23 01/07/23 History Past Med/Surg History Medical History Arthritis Bilateral breast cancer Breast cancer (11/12/15) Stage 4 (+ mets) Depression with anxiety Heart palpitations R/t anxiety per patient History of COVID-19 12/2020 + 12/2021 > residual taste dysfunction and feeling of need to clear throat History of small bowel obstruction Hx bowel obstruction Hypothyroidism No current meds Liver spots "Mets from cancer" Peripheral neuropathy Type II diabetes mellitus Surgical History H/O hernia repair History of bowel resection D/T BOWEL OBSTRUCTION History of dilatation and curettage History of endometrial ablation History of lung surgery Left thoracoscopy with wedge resection left lower lobe Dr. Damico 03/29/2018 History of surgery Left Excisional Debridement of Buttock Wound History of tooth extraction History of vascular access device PORT INSERTION/REMOVAL Hx of section x3 Nausea and vomiting after administration of anesthetic agent "EXTREME" Port-A-Cath in place (04/30/22) Insertion Access Port left subclavian with Fluoroscopy(Left) - Chad Banuelos, DO S/P lumpectomy, left breast LEFT ARM LIMB RESTRICTION Family History Mother , 77yo Diabetes Heart disease Aortic valve replacement Mitral valve calcifications UTI (urinary tract infection) Father , 62yo Diabetes Myocardial infarction Hypertension Stroke Brother Diabetes Myocardial infarction Cardiac stents Pacemaker Hypertension Sister No problems noted. Daughter No problems noted. Son No problems noted. Son No problems noted. 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 ENT- oropharynx clear Neck- supple, no JVD. Lungs- clear to auscultation, no wheezing or crackles. Heart- regular rate and rhythm; no murmur, no gallop. Abdomen- normal bowel sounds, soft, mild ruq tenderness, no distension. Extremities- no pretibial edema, no erythema seen. Neuro- alert, oriented x 3; PERRL, no facial palsy; no dysarthria;moves extremities. Skin- warm & dry Results & Data Results & Data Vital Signs (Past 12 Hours) Vital Signs Temp Pulse Resp BP Pulse Ox O2 Del Method 01/07/23 20:53 86 01/07/23 16:50 82 01/07/23 15:27 36.9 C 95 H 16 116/89 99 Room Air Diagnostic Findings Laboratory Results WBC 9.20 K/ul (4.8-10.8) 01/07/23 16:45 RBC 3.47 M/uL (4.20-5.40) L 01/07/23 16:45 Hgb 11.1 g/dl (12.0-16.0) L 01/07/23 16:45 Hct 31.2 % (37.0-47.0) L 01/07/23 16:45 MCV 89.9 fL (80.0-100.0) 01/07/23 16:45 MCH 32.0 pg (25.0-34.0) 01/07/23 16:45 MCHC 35.6 g/dL (32.0-36.0) 01/07/23 16:45 RDW Std Deviation 52.9 fL (36.4-46.3) H 01/07/23 16:45 RDW Coeff of Joshua 16.6 % (11.5-14.5) H 01/07/23 16:45 Plt Count 246 K/uL (130-400) 01/07/23 16:45 MPV 9.9 fL (9.4-12.4) 01/07/23 16:45 Immature Gran % (Auto) 1.3 % 01/07/23 16:45 Neut % (Auto) 68.7 % 01/07/23 16:45 Lymph % (Auto) 21.2 % 01/07/23 16:45 [place] % (Auto) 6.8 % 01/07/23 16:45 Eos % (Auto) 1.3 % 01/07/23 16:45 Baso % (Auto) 0.7 % 01/07/23 16:45 Neut # (Auto) 6.32 K/uL (1.40-6.50) 01/07/23 16:45 Lymph # (Auto) 1.95 K/uL (1.20-3.40) 01/07/23 16:45 [place] # (Auto) 0.63 K/uL (0.11-0.59) H 01/07/23 16:45 Eos # (Auto) 0.12 K/uL (0.00-0.50) 01/07/23 16:45 Baso # (Auto) 0.06 K/uL (0.00-0.20) 01/07/23 16:45 Immature Gran # (Auto) 0.12 K/uL (0.01-0.20) 01/07/23 16:45 Sodium 136 mmol/L (136-145) 01/07/23 16:45 Potassium 3.7 mmol/L (3.5-5.1) 01/07/23 16:45 Chloride 101 mmol/L (98-107) 01/07/23 16:45 Carbon Dioxide 26 mmol/L (21-32) 01/07/23 16:45 Anion Gap 9 (3-11) 01/07/23 16:45 BUN 12 mg/dl (6-23) 01/07/23 16:45 Creatinine 0.79 mg/dl (0.6-1.2) 01/07/23 16:45 Est Cr Clr Drug Dosing Not Reportable 01/07/23 16:45 Est GFR ( Amer) 104.8 ml/min 01/07/23 16:45 Est GFR (Non-Af Amer) 90.4 ml/min 01/07/23 16:45 BUN/Creatinine Ratio 15.2 (10-20) 01/07/23 16:45 Glucose 301 mg/dl (70-99(Fasting)) H* 01/07/23 16:45 Calcium 10.0 mg/dl (8.6-10.3) 01/07/23 16:45 Total Bilirubin 1.0 mg/dl (0.2-1.0) 01/07/23 16:45 AST 19 U/L (13-39) 01/07/23 16:45 ALT 72 U/L (7-52) H 01/07/23 16:45 Alkaline Phosphatase 243 U/L (34-104) H 01/07/23 16:45 Total Protein 7.5 gm/dl (6.0-8.3) 01/07/23 16:45 Albumin 3.6 gm/dl (3.4-5.0) 01/07/23 16:45 Globulin 3.9 gm/dl (2.5-4.0) 01/07/23 16:45 Albumin/Globulin Ratio 0.9 (0.9-2) 01/07/23 16:45 Lipase 4 U/L (11-82) L 01/07/23 16:45 Urine Color [place] 01/07/23 16:45 Urine Appearance Cloudy (Clear) A 01/07/23 16:45 Urine pH 5.5 (4.5-7.5) 01/07/23 16:45 Ur Specific [place] 1.037 (1.000-1.030) H 01/07/23 16:45 Urine Protein Trace (Negative) H 01/07/23 16:45 Urine Glucose (UA) 3+ (Negative) H 01/07/23 16:45 Urine Ketones Trace (Negative) H 01/07/23 16:45 Urine Blood 2+ (Negative) H 01/07/23 16:45 Urine Nitrite Negative (Negative) 01/07/23 16:45 Urine Bilirubin Negative (Negative) 01/07/23 16:45 Urine Urobilinogen Negative (Negative) 01/07/23 16:45 Ur Leukocyte Esterase 1+ (Negative) H 01/07/23 16:45 Urine WBC (Auto) >30 /hpf (0-5) H 01/07/23 16:45 Urine RBC (Auto) 10-30 /hpf (0-4) H 01/07/23 16:45 U Hyaline Cast (Auto) 10-30 /lpf (0-5) H 01/07/23 16:45 U Epithel Cells (Auto) 20-30 /lpf (0-5) H 01/07/23 16:45 Urine Bacteria (Auto) 4+ (Negative) H 01/07/23 16:45 Urine Yeast Not Reportable 01/07/23 16:45 Impressions Abdomen/Pelvis CT 01/07/23 16:09 CT abd pelvis IV con only CLINICAL HISTORY: abd pain n/v TECHNIQUE: Helical axial images of the abdomen and pelvis were obtained and displayed. Automated dose lowering techniques and/or adjustment according to patient size were utilized for this exam. This exam was performed with intravenous contrast. CT DOSE: 1507.39 mGy.cm COMPARISON: Comparison is made to CT abdomen pelvis 11/16/2022 FINDINGS: Lower chest: No acute abnormality. Liver: Unremarkable. No focal lesions are seen. Gallbladder and biliary tree: Enlargement gallbladder is seen with ill-defined layering sludge and pericholecystic fluid. Gallbladder wall measures approximately 3.5 mm. No intra- or extrahepatic biliary ductal dilation. Pancreas: Unremarkable, no focal lesions. Spleen: Unremarkable. Adrenals: Unremarkable. Kidneys and ureters: Unremarkable. Bladder: Limited evaluation due to underdistention. Reproductive organs: Unremarkable. Bowel: The appendix is normal. Lymph nodes Retroperitoneal: Unremarkable. Pelvic: Unremarkable. Mesenteric: Unremarkable. Peritoneum: A small amount of free fluid is seen. Vessels: Unremarkable. Abdominal wall: A midline hernia mesh is seen. Bones: Mottled appearance of the spine with blastic lesions. IMPRESSION: 1. There is enlargement and wall thickening of the gallbladder with pericholecystic fluid concerning for acute cholecystitis. Gallbladder sludge is seen. 2. Otherwise no acute abnormalities are seen. ACT 112: Negative or not required by law. Electronically signed by: Mariano Guerrier M.D. 01/07/2023 7:07 PM ECG Additional Comments: ECG. Sinus rhythm with PACs at a rate of 89. No acute ST changes seen Code Status & VTE Plan VTE Prophylaxis Plan VTE Prophylaxis will be ordered: Yes (1) Vomiting Nausea presence: unspecified Vomiting type: unspecified Qualified Code(s): R11.10 - Vomiting, unspecified
[2023-01-07] MEDS ORDERED: CARBOHYDRATES FOR HYPOGLYCEMIA PO PRN (23:33)
[2023-01-07] MEDS ORDERED: DEXTROSE 50% 50 ML SYRINGE IV PRN (23:33)
[2023-01-07] MEDS ORDERED: NITROGLYCERIN SL 0.4 MG/TAB TAB SL PRN (23:33)
[2023-01-07] MEDS ORDERED: GLUCOSE 40% GEL 15 GM TUBE PO PRN (23:33)
[2023-01-07] MEDS ORDERED: GLUCOSE 10 TAB/TUBE PO PRN (23:33)
[2023-01-07] MEDS ORDERED: ONDANSETRON INJ 2 MG/ML 2 ML VIAL IV PRN (23:33)
[2023-01-07] MEDS ORDERED: GLUCAGON FOR INJ 1 MG VIAL SQ PRN (23:33)
[2023-01-07] MEDS ORDERED: ACETAMINOPHEN 1,000 MG/100 ML VIAL IV PRN (23:33)
[2023-01-08] MEDS: SODIUM CHLORIDE 0.9% 1,000 ML IV SCH ×2 (00:43→12:46)
[2023-01-08] MEDS: INSULIN ASPART PER UNIT CHARGE SC SCH ×5 (00:47→21:19)
[2023-01-08] MEDS: PIPERACILLIN/TAZOBACTAM 4.5 GM in DEXTROSE 5% MINI-B 100 ML IV SCH ×3 (02:13→17:39)
[2023-01-08] MEDS: LEVOTHYROXINE SODIUM 137 MCG TABLET PO SCH (06:13)
[2023-01-08 06:41] LABS: Basophils # (auto) 0.04 K/uL (0.00-0.20); Basophils % (auto) 0.5 %; Eosinophils # (auto) 0.19 K/uL (0.00-0.50); Eosinophils % (auto) 2.5 %; Hematocrit (blood only) 29.6 % (37.0-47.0); Hemoglobin 10.3 g/dl (12.0-16.0); Immature Granulocytes # (auto) 0.11 K/uL (0.01-0.20); Immature Granulocytes % (auto) 1.4 %; Lymphocytes # (auto) 1.75 K/uL (1.20-3.40); Lymphocytes % (auto) 22.9 %; Mean Corpuscular Hemoglobin 31.5 pg (25.0-34.0); Mean Corpuscular Hgb Conc 34.8 g/dL (32.0-36.0); Mean Corpuscular Volume 90.5 fL (80.0-100.0); Mean Platelet Volume 9.7 fL (9.4-12.4); Monocytes # (auto) 0.52 K/uL (0.11-0.59); Monocytes % (auto) 6.8 %; Neutrophils # (auto) 5.04 K/uL (1.40-6.50); Neutrophils % (auto) 65.9 %; Platelet Count 252 K/uL (130-400); RDW Coefficient of Variation 16.8 % (11.5-14.5); RDW Standard Deviation 55.2 fL (36.4-46.3); Red Blood Count 3.27 M/uL (4.20-5.40); White Blood Count 7.65 K/ul (4.8-10.8)
[2023-01-08 06:48] LABS: BUN Creatinine Ratio 12.2 (10-20); Calcium 8.5 mg/dl (8.6-10.3); Creatinine Clr Calc Pharmacy 137.8 ml/min; Est GFR (African American) 113.4 ml/min; Est GFR (Non-African American) 97.8 ml/min; Magnesium 1.5 mg/dl (1.7-2.4); Potassium 3.8 mmol/L (3.5-5.1)
[2023-01-08 08:10] LABS: Estimated Average Glucose 217 mg/dl; Hemoglobin A1C 9.2 % (4.5-5.6)
[2023-01-08] MEDS ORDERED: GABAPENTIN 300 MG CAP PO SCH (09:00)
[2023-01-08] MEDS: MAGNESIUM SULFATE / D5W 1 GM/100 ML BAG IV SCH ×2 (09:17→12:49)
--- NOTE | 2023-01-08 09:23 | Surgery Consultation ---
<Statement entered by Delgado Martinez MD - 01/11/23 07:17> Patient seen and examined. Acalculous cholecystitis. Will get US and begin IV abx. Lap bart likely this hospitalization unless resolves. Date of Consultation January 08, 2023 Assessment & Plan (1) Abdominal pain: (2) Vomiting: (3) Chemotherapy induced nausea and vomiting: Plan 47 year-old female with metastatic osseous breast cancer presented to ED with nausea and vomiting since last chemotherapy [address] scan with possible cholecystitis. HIDA scan pending. Examination with RLQ, RUQ, epigastrium and LUQ pain. No leukocytosis. Plan: Will await results of HIDA scan Continue pain management and antiemetics as needed continue IV antibiotics Continue medical management Rounded with Dr. Martinez at 2:15 pm HIDA scan showing no gallbladder uptake consistent with acute cholecystitis. Given recent chemotherapy and metastatic breast cancer would like to continue conservative treatment with IV antibiotics, pain management and antiemetics as needed and will add on for lap bart on Wednesday with Dr. Martinez. Will obtain ultrasound to further evaluate gallbladder. Continue current medical management History of Present Illness Reason for Consultation: Possible cholecystitis Nausea and vomiting Requesting Physician: Dr. Bose Attending Physician: Ambreen Magallanes MD History of Present Illness Yamilka is a 47 year-old female with history of metastatic breast cancer to the bone on chemotherapy and palliative radiation, hypothyroidism, obesity, diabetes, who presented to ED with complaint of nausea and vomiting for 3 weeks since last chemotherapy as well as right sided abdominal pain. She states she has had issues with nausea and vomiting with prior episodes of chemotherapy however the right sided pain as been in last 3 weeks. In review of her last radiation oncology note, she has been having right sided rib pain due to the osseous metastatic disease. She also has not been eating much but denies of specifically RUQ abdominal pain after eating. Denies fever, chills, changes in bowel habits. No gallbladder issues previously. She has had x 3, bowel obstruction surgery, and hernia repair in the past. Allergies Allergy/AdvReac Type Severity Reaction Status Date / Time No Known Allergies Allergy Verified 12/27/22 22:45 Home Medications Medication Instructions Recorded Confirmed Type oxycodone 5 mg tablet 5 - 10 mg (1 - 2 x 5 mg) PO 04/25/20 01/07/23 Rx .[id number] PRN pain, for initial therapy, max 6 tabs per day #6 tabs denosumab 120 mg/1.7 mL (70 mg/mL) 120 mg subcut .Q 3months 01/01/22 01/07/23 History subcutaneous solution (Xgeva) gabapentin 300 mg capsule 300 mg PO DAILY 07/30/22 01/07/23 History blood-glucose sensor (Dexcom G6 12/17/22 01/07/23 History Sensor device) blood-glucose transmitter (Dexcom 12/17/22 01/07/23 History G6 Transmitter device) cyclobenzaprine 10 mg tablet 10 mg PO HS 12/17/22 01/07/23 History dexamethasone 4 mg tablet See Rx Instructions .Route .COMPLEX 12/17/22 01/07/23 History insulin aspart U-100 100 unit/mL 10 unit subcut TID 12/17/22 01/07/23 History (3 mL) subcutaneous pen (Novolog FlexPen U-100 Insulin aspart) insulin glargine 100 unit/mL (3 40 unit subcut BID 12/17/22 01/07/23 History mL) subcutaneous pen (Lantus Solostar U-100 Insulin) levothyroxine 137 mcg tablet 137 mcg PO DAILY 12/17/22 01/07/23 History nitroglycerin 0.4 mg sublingual 0.4 mg sublingual Q5M PRN Chest 12/17/22 01/07/23 History tablet (Nitrostat) Pain ondansetron HCl 8 mg tablet 8 mg PO Q12H 12/17/22 01/07/23 History pen needle, diabetic 32 gauge x 12/17/22 01/07/23 History 5/32" (BD Ultra-Fine Aletha Pen Needle) promethazine 25 mg [address] Q6H PRN sedation #12 ea 12/27/22 01/07/23 Rx suppository oxycodone 10 mg tablet 10 - 20 mg PO Q4 PRN Pain 01/07/23 01/07/23 History Patient History Medical History Arthritis Bilateral breast cancer Breast cancer (11/12/15) Stage 4 (+ mets) Depression with anxiety Heart palpitations R/t anxiety per patient History of COVID-19 12/2020 + 12/2021 > residual taste dysfunction and feeling of need to clear throat History of small bowel obstruction Hx bowel obstruction Hypothyroidism No current meds Liver spots "Mets from cancer" Peripheral neuropathy Type II diabetes mellitus Surgical History H/O hernia repair History of bowel resection D/T BOWEL OBSTRUCTION History of dilatation and curettage History of endometrial ablation History of lung surgery Left thoracoscopy with wedge resection left lower lobe Dr. Damico 03/29/2018 History of surgery Left Excisional Debridement of Buttock Wound History of tooth extraction History of vascular access device PORT INSERTION/REMOVAL Hx of section x3 Nausea and vomiting after administration of anesthetic agent "EXTREME" Port-A-Cath in place (04/30/22) Insertion Access Port left subclavian with Fluoroscopy(Left) - Chad Banuelos, DO S/P lumpectomy, left breast LEFT ARM LIMB RESTRICTION Family History Mother , 77yo Diabetes Heart disease Aortic valve replacement Mitral valve calcifications UTI (urinary tract infection) Father , 62yo Diabetes Myocardial infarction Hypertension Stroke Brother Diabetes Myocardial infarction Cardiac stents Pacemaker Hypertension Sister No problems noted. Daughter No problems noted. Son No problems noted. Son No problems noted. 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 How many Children do You have: 3 Other Information That Helps Us Care for You: No Feels Safe at Home: Yes Safety Concerns: Feels Safe At This Time Diet: regular caffeine: No during the past year weight has: remained stable Assistive Devices: None Review of Systems Review of Systems: All systems reviewed & are unremarkable except as noted in HPI & below Physical Exam Constitutional: WD/WN, vitals as above + morbidly obese; no acute distress, not ill appearing and not in distress Respiratory: normal respiratory effort; no respiratory distress, no labored breathing and no retractions Gastrointestinal (Abdomen): Inspection/Auscultation: abdomen normal to inspection; abdomen not distended Percussion/Palpation: + abdomen tender (RUQ , RLQ, epigastrium, and LUQ) and abdomen soft; no guarding, abdomen not rigid and abdomen not firm Skin: no rashes, warm and dry no jaundice Psychiatric: A+Ox3, euthymic affect Results & Data Vital Signs (Past 12 Hours) Vital Signs Temp Pulse Resp BP Pulse Ox O2 Del Method 01/08/23 07:39 36.7 C 88 16 145/83 H 94 Room Air 01/07/23 23:05 Room Air 01/07/23 23:05 36.6 C 18 120/82 98 Room Air Laboratory Results 01/08/23 01/08/23 01/08/23 Range/Units 05:54 05:49 00:46 WBC 7.65 (4.8-10.8) K/ul RBC 3.27 L (4.20-5.40) M/uL Hgb 10.3 L (12.0-16.0) g/dl Hct 29.6 L (37.0-47.0) % MCV 90.5 (80.0-100.0) fL MCH 31.5 (25.0-34.0) pg MCHC 34.8 (32.0-36.0) g/dL RDW Std Deviation 55.2 H (36.4-46.3) fL RDW Coeff of Joshua 16.8 H (11.5-14.5) % Plt Count 252 (130-400) K/uL MPV 9.7 (9.4-12.4) fL Immature Gran % (Auto) 1.4 % Neut % (Auto) 65.9 % Lymph % (Auto) 22.9 % [place] % (Auto) 6.8 % Eos % (Auto) 2.5 % Baso % (Auto) 0.5 % Neut # (Auto) 5.04 (1.40-6.50) K/uL Lymph # (Auto) 1.75 (1.20-3.40) K/uL [place] # (Auto) 0.52 (0.11-0.59) K/uL Eos # (Auto) 0.19 (0.00-0.50) K/uL Baso # (Auto) 0.04 (0.00-0.20) K/uL Immature Gran # (Auto) 0.11 (0.01-0.20) K/uL Sodium 139 (136-145) mmol/L Potassium 3.8 (3.5-5.1) mmol/L Chloride 107 (98-107) mmol/L Carbon Dioxide 25 (21-32) mmol/L Anion Gap 7 (3-11) BUN 9 (6-23) mg/dl Creatinine 0.74 (0.6-1.2) mg/dl Est Cr Clr Drug Dosing 137.8 Est GFR ( Amer) 113.4 ml/min Est GFR (Non-Af Amer) 97.8 ml/min BUN/Creatinine Ratio 12.2 (10-20) Glucose 198 H (70-99(Fasting)) mg/dl POC Glucose 208 H 150 H (70-99) mg/dl Estimat Average Glucose 217 mg/dl Hemoglobin A1c 9.2 H (4.5-5.6) % Calcium 8.5 L (8.6-10.3) mg/dl Magnesium 1.5 L (1.7-2.4) mg/dl Total Bilirubin (0.2-1.0) mg/dl AST (13-39) U/L ALT (7-52) U/L Alkaline Phosphatase (34-104) U/L Total Protein (6.0-8.3) gm/dl Albumin (3.4-5.0) gm/dl Globulin (2.5-4.0) gm/dl Albumin/Globulin Ratio (0.9-2) Lipase (11-82) U/L Urine Color Urine Appearance (Clear) Urine pH (4.5-7.5) Ur Specific [place] (1.000-1.030) Urine Protein (Negative) Urine Glucose (UA) (Negative) Urine Ketones (Negative) Urine Blood (Negative) Urine Nitrite (Negative) Urine Bilirubin (Negative) Urine Urobilinogen (Negative) Ur Leukocyte Esterase (Negative) Urine WBC (Auto) (0-5) /hpf Urine RBC (Auto) (0-4) /hpf U Hyaline Cast (Auto) (0-5) /lpf U Epithel Cells (Auto) (0-5) /lpf Urine Bacteria (Auto) (Negative) Urine Yeast 01/07/23 Range/Units 16:45 WBC 9.20 (4.8-10.8) K/ul RBC 3.47 L (4.20-5.40) M/uL Hgb 11.1 L (12.0-16.0) g/dl Hct 31.2 L (37.0-47.0) % MCV 89.9 (80.0-100.0) fL MCH 32.0 (25.0-34.0) pg MCHC 35.6 (32.0-36.0) g/dL RDW Std Deviation 52.9 H (36.4-46.3) fL RDW Coeff of [place] 16.6 H (11.5-14.5) % Plt Count 246 (130-400) K/uL MPV 9.9 (9.4-12.4) fL Immature Gran % (Auto) 1.3 % Neut % (Auto) 68.7 % Lymph % (Auto) 21.2 % [place] % (Auto) 6.8 % Eos % (Auto) 1.3 % Baso % (Auto) 0.7 % Neut # (Auto) 6.32 (1.40-6.50) K/uL Lymph # (Auto) 1.95 (1.20-3.40) K/uL [place] # (Auto) 0.63 H (0.11-0.59) K/uL Eos # (Auto) 0.12 (0.00-0.50) K/uL Baso # (Auto) 0.06 (0.00-0.20) K/uL Immature Gran # (Auto) 0.12 (0.01-0.20) K/uL Sodium 136 (136-145) mmol/L Potassium 3.7 (3.5-5.1) mmol/L Chloride 101 (98-107) mmol/L Carbon Dioxide 26 (21-32) mmol/L Anion Gap 9 (3-11) BUN 12 (6-23) mg/dl Creatinine 0.79 (0.6-1.2) mg/dl Est Cr Clr Drug Dosing Not Reportable Est GFR ( Amer) 104.8 ml/min Est GFR (Non-Af Amer) 90.4 ml/min BUN/Creatinine Ratio 15.2 (10-20) Glucose 301 H* (70-99(Fasting)) mg/dl POC Glucose (70-99) mg/dl Estimat Average Glucose mg/dl Hemoglobin A1c (4.5-5.6) % Calcium 10.0 (8.6-10.3) mg/dl Magnesium (1.7-2.4) mg/dl Total Bilirubin 1.0 (0.2-1.0) mg/dl AST 19 (13-39) U/L ALT 72 H (7-52) U/L Alkaline Phosphatase 243 H (34-104) U/L Total Protein 7.5 (6.0-8.3) gm/dl Albumin 3.6 (3.4-5.0) gm/dl Globulin 3.9 (2.5-4.0) gm/dl Albumin/Globulin Ratio 0.9 (0.9-2) Lipase 4 L (11-82) U/L Urine Color [place] Urine Appearance Cloudy A (Clear) Urine pH 5.5 (4.5-7.5) Ur Specific [place] 1.037 H (1.000-1.030) Urine Protein Trace H (Negative) Urine Glucose (UA) 3+ H (Negative) Urine Ketones Trace H (Negative) Urine Blood 2+ H (Negative) Urine Nitrite Negative (Negative) Urine Bilirubin Negative (Negative) Urine Urobilinogen Negative (Negative) Ur Leukocyte Esterase 1+ H (Negative) Urine WBC (Auto) >30 H (0-5) /hpf Urine RBC (Auto) 10-30 H (0-4) /hpf U Hyaline Cast (Auto) 10-30 H (0-5) /lpf U Epithel Cells (Auto) 20-30 H (0-5) /lpf Urine Bacteria (Auto) 4+ H (Negative) Urine Yeast Not Reportable Diagnostic Findings CT abd pelvis IV con only CLINICAL HISTORY: abd pain n/v TECHNIQUE: Helical axial images of the abdomen and pelvis were obtained and displayed. Automated dose lowering techniques and/or adjustment according to patient size were utilized for this exam. This exam was performed with intravenous contrast. CT DOSE: 1507.39 mGy.cm COMPARISON: Comparison is made to CT abdomen pelvis 11/16/2022 FINDINGS: Lower chest: No acute abnormality. Liver: Unremarkable. No focal lesions are seen. Gallbladder and biliary tree: Enlargement gallbladder is seen with ill-defined layering sludge and pericholecystic fluid. Gallbladder wall measures approximately 3.5 mm. No intra- or extrahepatic biliary ductal dilation. Pancreas: Unremarkable, no focal lesions. Spleen: Unremarkable. Adrenals: Unremarkable. Kidneys and ureters: Unremarkable. Bladder: Limited evaluation due to underdistention. Reproductive organs: Unremarkable. Bowel: The appendix is normal. Lymph nodes Retroperitoneal: Unremarkable. Pelvic: Unremarkable. Mesenteric: Unremarkable. Peritoneum: A small amount of free fluid is seen. Vessels: Unremarkable. Abdominal wall: A midline hernia mesh is seen. Bones: Mottled appearance of the spine with blastic lesions. IMPRESSION: 1. There is enlargement and wall thickening of the gallbladder with pericholecystic fluid concerning for acute cholecystitis. Gallbladder sludge is seen. 2. Otherwise no acute abnormalities are seen. (1) Abdominal pain Abdominal location: unspecified location Qualified Code(s): R10.9 - Unspecified abdominal pain (2) Vomiting Nausea presence: unspecified Vomiting type: unspecified Qualified Code(s): R11.10 - Vomiting, unspecified
[2023-01-08] MEDS: LANTUS PER UNIT CHARGE SQ SCH ×3 (09:43→21:18)
[2023-01-08] MEDS ORDERED: FAMOTIDINE 10 MG TABLET PO ONE (09:54)
[2023-01-08] MEDS ORDERED: MoRPHine SULFATE 2 MG/ML CARP IV STA (11:43)
--- NOTE | 2023-01-08 12:52 | Nuclear Medicine Report ---
NM hepatobiliary CLINICAL HISTORY: eval for acute cholecystitis no EF needed TECHNIQUE: Following the intravenous injection of 5.2 mCi of Tc-99m labeled Technetium 99m mebrofeni n, multiple images of the upper abdomen were obtained in the anterior projection with uptake measurem ents of the gallbladder obtained. Once the gallbladder and small bowel were visualized, the patient w as intravenously infused over 30 minutes with 0.02 mcg/kg of Sincalide (CCK), and imaging and uptakes were again obtained. Comparison: Comparison is made to CT abdomen pelvis 01/07/2023 FINDINGS: No uptake is seen in the gallbladder even following administration of morphine. Normal pass age of contrast into the small bowel is noted. IMPRESSION: No opacification of the gallbladder is seen, findings are compatible with acute cholecystitis. Reference: Normal gallbladder ejection fraction is greater than 33%. ACT 112: Negative or not required by law. Electronically signed by: Mariano Guerrier M.D. 01/08/2023 12:50 PM
--- NOTE | 2023-01-08 12:54 | Electrocardiogram Report ---
Test Reason : Blood Pressure : / mmHG Vent. Rate : 089 BPM Atrial Rate : 089 BPM P-R Int : 140 ms QRS Dur : 082 ms QT Int : 364 ms P-R-T Axes : 016 -12 033 degrees QTc Int : 442 ms Sinus rhythm with Premature atrial complexes Poor R wave progression, consider anterior [place] vs. lead placement vs. LVH Abnormal ECG When compared with ECG of 27-APR-2022 10:08, Premature atrial complexes are now Present Confirmed by Rey Rosales ([id number]) on 01/08/2023 12:54:18 PM Referred By: Confirmed By:Rey Rosales
[2023-01-08] MEDS ORDERED: METOCLOPRAMIDE HCL 5 MG/5 ML UDP PO PRN (13:53)
--- NOTE | 2023-01-08 13:58 | Hospitalist Progress Note ---
Date of Service January 08, 2023 Assessment & Plan (1) Vomiting: Plan: Mr. Vega is a 47-year-old female past med history significant for metastatic breast cancer, diabetes ,hypothyroidism comes because of ongoing nausea and vomiting since last chemo 3 weeks ago. #Persistent nausea and vomiting CT scan questionable cholecystitis Pending HIDA scan -Continue Empiric Zosyn -Surgery following at this time -Gentle V fluids #UTI UA culture with GNB -Continue Zosyn, narrow as able #Uncontrolled Diabetes On 50U BID lantus at home Continue 20UBID while NPO Plan for glycemic consult given A1C 9.2% #Hypothyroidism On Synthyroid #Metastatic breast cancer #Mets to ribs with bilateral pathologic rib fractures -Denies use of gabapentin, Flexeril or fentanyl at this time; relies on prn oxy -Resume Oxycodone prn q6h 10mg as needed, IV dialudid prn -No further systemic option per Dr. Newby other than radiation; seeking OP second opinion at [facility] -Completed 2/5 fractions; Rad-Onc feels symptoms not related to presentation -Plan to resume radiation on Wednesday, or readdress considered inpatient status #Chronic Normocytic anemia -Stable, CTM #Morbid obesity BMI 49.2, Encourage lifestyle modifications and healthy habits while inpatient DVT prophylaxis SCDs for now if no procedure planned will place on Lovenox. Disposition Medical floor Full code Admission and Anticipated Discharge Date Admission Date: January 07, 2023 Subjective Reports continued nausea at all times, even with flushing of port Denies localized pain, just generalized unwellness Review of Systems Review of Systems: All systems reviewed & are unremarkable except as noted in Subjective Physical Exam Constitutional: WD/WN, vitals as above Respiratory: normal respiratory effort, lungs clear to auscultation Cardiovascular: RRR, no murmur, no edema Gastrointestinal (Abdomen): mild tenderness generalized to upper quadrants/epigastrum Results & Data Results & Data Vital Signs (Past 12 Hours) Vital Signs Temp Pulse Resp BP Pulse Ox O2 Del Method 01/08/23 07:39 36.7 C 88 16 145/83 H 94 Room Air Laboratory Results Short CBC 01/07/23 01/08/23 Range/Units 16:45 05:49 WBC 9.20 7.65 (4.8-10.8) K/ul Hgb 11.1 L 10.3 L (12.0-16.0) g/dl Hct 31.2 L 29.6 L (37.0-47.0) % Plt Count 246 252 (130-400) K/uL BMP 01/07/23 01/08/23 16:45 05:49 Sodium 136 139 Potassium 3.7 3.8 Chloride 101 107 Carbon Dioxide 26 25 BUN 12 9 Creatinine 0.79 0.74 Glucose 301 H* 198 H Calcium 10.0 8.5 L Liver Function 01/07/23 Range/Units 16:45 Total Bilirubin 1.0 (0.2-1.0) mg/dl AST 19 (13-39) U/L ALT 72 H (7-52) U/L Alkaline Phosphatase 243 H (34-104) U/L Albumin 3.6 (3.4-5.0) gm/dl Urine 01/07/23 Range/Units 16:45 Urine Color [place] Urine Appearance Cloudy A (Clear) Urine pH 5.5 (4.5-7.5) Ur Specific [place] 1.037 H (1.000-1.030) Urine Protein Trace H (Negative) Urine Glucose (UA) 3+ H (Negative) Medications Administered Home Medications Medication Instructions Recorded Confirmed Last Taken oxycodone 5 mg tablet 5 - 10 mg (1 - 2 x 5 mg) PO 04/25/20 01/07/23 04/28/22 21:30 .[id number] PRN pain, for initial therapy, max 6 tabs per day #6 tabs denosumab 120 mg/1.7 mL (70 mg/mL) 120 mg subcut .Q 3months 01/01/22 01/07/23 03/10/22 11:00 subcutaneous solution (Xgeva) gabapentin 300 mg capsule 300 mg PO DAILY 07/30/22 01/07/23 Unknown blood-glucose sensor (Dexcom G6 12/17/22 01/07/23 Unknown Sensor device) blood-glucose transmitter (Dexcom 12/17/22 01/07/23 Unknown G6 Transmitter device) cyclobenzaprine 10 mg tablet 10 mg PO HS 12/17/22 01/07/23 Unknown dexamethasone 4 mg tablet See Rx Instructions .Route .COMPLEX 12/17/22 01/07/23 Unknown insulin aspart U-100 100 unit/mL 10 unit subcut TID 12/17/22 01/07/23 Unknown (3 mL) subcutaneous pen (Novolog FlexPen U-100 Insulin aspart) insulin glargine 100 unit/mL (3 40 unit subcut BID 12/17/22 01/07/23 Unknown mL) subcutaneous pen (Lantus Solostar U-100 Insulin) levothyroxine 137 mcg tablet 137 mcg PO DAILY 12/17/22 01/07/23 Unknown nitroglycerin 0.4 mg sublingual 0.4 mg sublingual Q5M PRN Chest 12/17/22 01/07/23 Unknown tablet (Nitrostat) Pain ondansetron HCl 8 mg tablet 8 mg PO Q12H 12/17/22 01/07/23 Unknown pen needle, diabetic 32 gauge x 12/17/22 01/07/23 Unknown " (BD Ultra-Fine Aletha Pen Needle) promethazine 25 mg rectal 25 mg UT Q6H PRN sedation #12 ea 12/27/22 01/07/23 Unknown suppository oxycodone 10 mg tablet 10 - 20 mg PO Q4 PRN Pain 01/07/23 01/07/23 Unknown Active Medications Generic Name Dose Route Start Last Admin Trade Name Freq PRN Reason Stop Dose Admin Sodium Chloride 1,000 mls @ 125 mls/hr 01/07/23 23:33 01/08/23 12:46 Nss IV 02/06/23 23:32 125 mls/hr .Q8H JESSE Administration Piperacillin Sod/Tazobactam 100 mls @ 25 mls/hr 01/08/23 02:00 01/08/23 10:19 Sod 4.5 gm/ Dextrose IV 01/18/23 01:59 25 mls/hr Q8H JESSE Administration Protocol Insulin Aspart 0 units 01/08/23 00:30 01/08/23 13:24 Insulin Aspart Per Unit Charge SC 02/07/23 00:29 5 units Q6 JESSE Administration Insulin Glargine 20 units 01/08/23 09:00 01/08/23 13:23 Lantus Per Unit Charge SQ 02/07/23 08:59 20 units BID JESSE Administration Levothyroxine Sodium 137 mcg 01/08/23 06:30 01/08/23 06:13 Levothyroxine Sodium 137 Mcg Tablet PO 02/07/23 06:29 137 mcg DAILYBB JESSE Administration (1) Vomiting Nausea presence: unspecified Vomiting type: unspecified Qualified Code(s): R11.10 - Vomiting, unspecified
[2023-01-08] MEDS: METOCLOPRAMIDE HCL INJ 5 MG/ML 2 ML VIAL IV PRN (14:06)
[2023-01-08] MEDS ORDERED: PHARMACY GLYCEMIC MGMT CONSULT PRN (14:08)
[2023-01-08] MEDS: oxyCODONE HCL IR 5 MG TAB (IMMEDIATE RELEASE) PO PRN (14:23)
--- NOTE | 2023-01-08 14:25 | Pharmacy Report ---
Pharmacy Glycemic Short Note 2 - Date of Service January 08, 2023 - Glycemic Short BSG Results (Last 24 hours): 01/07/23 01/08/23 01/08/23 16:45 00:46 05:49 Glucose 301 H* 198 H POC Glucose 150 H 01/08/23 01/08/23 05:54 12:53 Glucose POC Glucose 208 H 277 H OUTPATIENT ANTIDIABETIC REGIMEN: * Lantus 40 units SC BID * Novolog 10 units SC TID before meals HbA1c: 9.2% (01/08/23) ASSESSMENT: * SHAMAR is a 47 year old female who presented to ED yesterday for evaluation of persistent N&V following chemotherapy for metastatic breast cancer * Pharmacy consulted for glycemic management this afternoon (BSG 277 mg/dL) * CT and HIDA scans performed and are compatible with acute cholecystitis * Patient is NPO at this time, will give ~50-75% of home basal dose for now * Will tighten prior Novolog parameters PLAN FOR INPATIENT GLYCEMIC CONTROL: * Basal insulin * Lantus 10-20-30 units SQ BID (see EHR for details) * Will likely need to increase once diet advanced * Bolus insulin * NovoLog per scale ACHS or Q6hrs while NPO * Goal Range: Low 110 mg/dL - High 140 mg/dL * Correction Factor: 15 mg/dL/unit * Nutritional / Prandial insulin per carb ratio of 1 unit per 5 grams CHO consumed
[2023-01-08] MEDS: LIDOCAINE 5% 1 PATCH TD SCH (14:52)
[2023-01-08] MEDS: HYDROmorphone INJ 0.5 MG/0.5 ML SYR IV PRN ×2 (16:18→19:32)
[2023-01-08] MEDS ORDERED: Nursing to Pharmacy Communication SCH (19:45)
--- NOTE | 2023-01-08 22:48 | Ultrasound Report ---
US abdomen limited CLINICAL HISTORY: eval gallbladder TECHNIQUE: Multiple real-time sonographic images of the right upper quadrant were obtained. Comparison: Comparison is made to CT abdomen pelvis 01/07/2023 and nuclear medicine HIDA scan 01/09/20 23 FINDINGS: The liver is diffusely echogenic in appearance with poor ultrasound penetration, with normal contour, which is consistent with fatty infiltration. No focal mass lesions are seen. No intrahepatic duct al dilatation is seen. Numerous likely gallstones are seen. Gallbladder wall appears thickened at 6 mm. A sonographic Cruz's sign was elicited by the roofing layer. The common duct measures 0.7 cm in diameter at the level of the hepatic artery. The visualized portions of the pancreas appear normal. The right kidney shows normal echogenicity, cortical thickness and renal contour. The right kidney sh ows no evidence of hydronephrosis or mass. No ascites or free fluid is seen in Esquivel's pouch. IMPRESSION: Thickening of the gallbladder is seen with positive sonographic Cruz's sign compatible with diagnos is of acute cholecystitis. There is the appearance of discrete stones in additional to sludge seen on prior CT. ACT 112: Negative or not required by law. Electronically signed by: Mariano Guerrier M.D. 01/08/2023 10:47 PM
[2023-01-09] MEDS: SODIUM CHLORIDE 0.9% 1,000 ML IV SCH ×2 (00:24→13:10)
[2023-01-09] MEDS: PIPERACILLIN/TAZOBACTAM 4.5 GM in DEXTROSE 5% MINI-B 100 ML IV SCH ×3 (02:08→18:06)
[2023-01-09] MEDS: LEVOTHYROXINE SODIUM 137 MCG TABLET PO SCH (05:43)
[2023-01-09] MEDS: HYDROmorphone INJ 0.5 MG/0.5 ML SYR IV PRN (05:44)
[2023-01-09] MEDS: METOCLOPRAMIDE HCL INJ 5 MG/ML 2 ML VIAL IV PRN (05:44)
[2023-01-09 06:43] LABS: Hematocrit (blood only) 29.9 % (37.0-47.0); Hemoglobin 10.3 g/dl (12.0-16.0); Mean Corpuscular Hemoglobin 31.7 pg (25.0-34.0); Mean Corpuscular Hgb Conc 34.4 g/dL (32.0-36.0); Mean Platelet Volume 9.4 fL (9.4-12.4); Platelet Count 279 K/uL (130-400); RDW Coefficient of Variation 16.4 % (11.5-14.5); RDW Standard Deviation 55.3 fL (36.4-46.3); Red Blood Count 3.25 M/uL (4.20-5.40); White Blood Count 5.91 K/ul (4.8-10.8)
[2023-01-09 07:10] LABS: BUN Creatinine Ratio 9.9 (10-20); Bilirubin,Total 4.5 mg/dl (0.2-1.0); Calcium 8.5 mg/dl (8.6-10.3); Creatinine Clr Calc Pharmacy 143.6 ml/min; Est GFR (African American) 119.2 ml/min; Est GFR (Non-African American) 102.9 ml/min; Globulin 3.1 gm/dl (2.5-4.0); Magnesium 1.9 mg/dl (1.7-2.4); Phosphorus 3.4 mg/dl (2.5-4.9); Potassium 3.3 mmol/L (3.5-5.1); Total Protein 6.1 gm/dl (6.0-8.3)
[2023-01-09] MEDS ORDERED: POTASSIUM CHLORIDE CRTAB 20 MEQ TABCR PO STA (07:53)
--- NOTE | 2023-01-09 07:54 | Hospitalist Progress Note ---
Date of Service January 09, 2023 Assessment & Plan (1) Vomiting: Plan: Mr. Vega is a 47-year-old female past med history significant for metastatic breast cancer, diabetes ,hypothyroidism comes because of ongoing nausea and vomiting since last chemo 3 weeks ago. Patient admitted on 01/07 due to concerns of cholecystitis. HIDA and ABD US positive for acute cholecystitis #Acute cholecystitis #Persistent nausea and vomiting CT scan questionable cholecystitis Pending HIDA scan -Continue Empiric Zosyn -Surgery following at this time: Lap bart possibly 01/11 -Gentle IV fluids and CLD as tolerated #UTI UA culture with GNB -Continue Zosyn for bart/UTI #Uncontrolled Diabetes On 50U BID lantus at home Continue 20UBID while NPO Plan for glycemic consult given A1C 9.2% #Hypothyroidism On Synthyroid #Metastatic breast cancer #Mets to ribs with bilateral pathologic rib fractures -Denies use of gabapentin, Flexeril or fentanyl at this time; relies on prn oxy -Resume Oxycodone prn q6h 10mg as needed, IV dialudid prn -No further systemic option per Dr. Newby other than radiation; seeking OP second opinion at [place] -Completed 2/5 fractions; Rad-Onc feels symptoms not related to presentation -Rad Onc will readdress contingnent on inpatient status #Chronic Normocytic anemia -Stable, CTM #Morbid obesity BMI 49.2, Encourage lifestyle modifications and healthy habits while inpatient DVT prophylaxis SCDs for now if no procedure planned will place on Lovenox. Disposition Medical floor Full code Admission and Anticipated Discharge Date Admission Date: January 07, 2023 Subjective Patient reports tolerating some PO liquid, but nausea and pain are still present. Patient unable to tolerate flushing of port or anything "bulky" as far as intake Patient states that she only feels marginally improved, but the antiemetics don't help her symptoms to any degree, only avoidance of "triggers" Review of Systems Review of Systems: All systems reviewed & are unremarkable except as noted in Subjective Physical Exam Constitutional: WD/WN, vitals as above Respiratory: normal respiratory effort, lungs clear to auscultation Cardiovascular: RRR, no murmur, no edema Gastrointestinal (Abdomen): declined any abd exam 2/2 pain Results & Data Results & Data Vital Signs (Past 12 Hours) Vital Signs Temp Pulse Resp BP Pulse Ox O2 Del Method 01/09/23 07:30 36.4 C L 81 15 118/73 94 Room Air 01/08/23 22:37 36.8 C 85 18 101/63 95 Room Air 01/08/23 20:30 36.7 C 87 16 91/60 L 95 Room Air Laboratory Results Short CBC 01/09/23 Range/Units 05:36 WBC 5.91 (4.8-10.8) K/ul Hgb 10.3 L (12.0-16.0) g/dl Hct 29.9 L (37.0-47.0) % Plt Count 279 (130-400) K/uL BMP 01/09/23 05:36 Sodium 138 Potassium 3.3 L Chloride 105 Carbon Dioxide 27 BUN 7 Creatinine 0.71 Glucose 116 H Calcium 8.5 L Liver Function 01/09/23 Range/Units 05:36 Total Bilirubin 4.5 H D (0.2-1.0) mg/dl AST 109 H (13-39) U/L ALT 92 H (7-52) U/L Alkaline Phosphatase 419 H (34-104) U/L Albumin 3.0 L (3.4-5.0) gm/dl Diagnostic Findings ABD US 01/08/2023 IMPRESSION: Thickening of the gallbladder is seen with positive sonographic Cruz's sign compatible with diagnosis of acute cholecystitis. There is the appearance of discrete stones in additional to sludge seen on prior CT. HIDA 01/08/2023 CLINICAL HISTORY: eval for acute cholecystitis no EF needed TECHNIQUE: Following the intravenous injection of 5.2 mCi of Tc-99m labeled Technetium 99m mebrofenin, multiple images of the upper abdomen were obtained in the anterior projection with uptake measurements of the gallbladder obtained. Once the gallbladder and small bowel were visualized, the patient was intravenously infused over 30 minutes with 0.02 mcg/kg of Sincalide (CCK), and imaging and uptakes were again obtained. Comparison: Comparison is made to CT abdomen pelvis 01/07/2023 FINDINGS: No uptake is seen in the gallbladder even following administration of morphine. Normal passage of contrast into the small bowel is noted. IMPRESSION: No opacification of the gallbladder is seen, findings are compatible with acute cholecystitis. Medications Administered Home Medications Medication Instructions Recorded Confirmed Last Taken oxycodone 5 mg tablet 5 - 10 mg (1 - 2 x 5 mg) PO 02/25/21 11/09/23 02/28/23 21:30 .[id number] PRN pain, for initial therapy, max 6 tabs per day #6 tabs denosumab 120 mg/1.7 mL (70 mg/mL) 120 mg subcut .Q 3months 01/01/22 01/07/23 03/10/22 11:00 subcutaneous solution (Xgeva) gabapentin 300 mg capsule 300 mg PO DAILY 07/30/22 01/07/23 Unknown blood-glucose sensor (Dexcom G6 12/17/22 01/07/23 Unknown Sensor device) blood-glucose transmitter (Dexcom 12/17/22 01/07/23 Unknown G6 Transmitter device) cyclobenzaprine 10 mg tablet 10 mg PO HS 12/17/22 01/07/23 Unknown dexamethasone 4 mg tablet See Rx Instructions .Route .COMPLEX 12/17/22 01/07/23 Unknown insulin aspart U-100 100 unit/mL 10 unit subcut TID 12/17/22 01/07/23 Unknown (3 mL) subcutaneous pen (Novolog FlexPen U-100 Insulin aspart) insulin glargine 100 unit/mL (3 40 unit subcut BID 12/17/22 01/07/23 Unknown mL) subcutaneous pen (Lantus Solostar U-100 Insulin) levothyroxine 137 mcg tablet 137 mcg PO DAILY 12/17/22 01/07/23 Unknown nitroglycerin 0.4 mg sublingual 0.4 mg sublingual Q5M PRN Chest 12/17/22 01/07/23 Unknown tablet (Nitrostat) Pain ondansetron HCl 8 mg tablet 8 mg PO Q12H 12/17/22 01/07/23 Unknown pen needle, diabetic 32 gauge x 12/17/22 01/07/23 Unknown 5/32" (BD Ultra-Fine Aletha Pen Needle) promethazine 25 mg rectal 25 mg AR Q6H PRN sedation #12 ea 12/27/22 01/07/23 Unknown suppository oxycodone 10 mg tablet 10 - 20 mg PO Q4 PRN Pain 01/07/23 01/07/23 Unknown Active Medications Generic Name Dose Route Start Last Admin Trade Name Freq PRN Reason Stop Dose Admin Hydromorphone HCl 0.5 mg 01/07/23 23:33 01/09/23 05:44 Hydromorphone Inj 0.5 Mg/0.5 Ml Syr IV 01/21/23 23:32 0.5 mg Q3H PRN Administration Pain Sodium Chloride 1,000 mls @ 75 mls/hr 01/07/23 23:33 01/09/23 00:24 Nss IV 02/06/23 23:32 75 mls/hr .[id number] JESSE Administration Piperacillin Sod/Tazobactam 100 mls @ 25 mls/hr 01/08/23 02:00 01/09/23 06:17 Sod 4.5 gm/ Dextrose IV 01/18/23 01:59 Infused Q8H JESSE Infusion Protocol Insulin Aspart 0 units 01/08/23 17:20 01/09/23 08:30 Insulin Aspart Per Unit Charge SC 02/07/23 17:19 5 units ACHS JESSE Administration Insulin Glargine 0 units 01/08/23 21:00 01/09/23 08:30 Lantus Per Unit Charge SQ 02/07/23 20:59 20 units BID JESSE Administration Protocol Levothyroxine Sodium 137 mcg 01/08/23 06:30 01/09/23 05:43 Levothyroxine Sodium 137 Mcg Tablet PO 02/07/23 06:29 137 mcg DAILYBB [facility] Administration Lidocaine 1 patch 01/08/23 14:00 01/09/23 08:25 Lidocaine 5% 1 Patch TD 02/07/23 13:59 Not Given QAM [facility] Metoclopramide HCl 10 mg 01/08/23 09:54 01/09/23 05:44 Metoclopramide Hcl Inj 5 Mg/Ml 2 Ml Vial IV 02/07/23 09:53 10 mg Q6H PRN Administration Nausea Miscellaneous 1 each 01/08/23 21:00 01/08/23 21:11 Remove Lidoderm Patch N/A 02/07/23 20:59 1 each DAILY@2100 [facility] Administration Oxycodone HCl 10 mg 01/08/23 13:53 01/08/23 14:23 Oxycodone Hcl Ir 5 Mg Tab (Immediate Release) PO 01/22/23 13:52 10 mg Q6H PRN Administration Pain (1) Vomiting Nausea presence: unspecified Vomiting type: unspecified Qualified Code(s): R11.10 - Vomiting, unspecified
[2023-01-09] MEDS: LIDOCAINE 5% 1 PATCH TD SCH (08:25)
[2023-01-09] MEDS: INSULIN ASPART PER UNIT CHARGE SC SCH ×4 (08:30→21:29)
[2023-01-09] MEDS: LANTUS PER UNIT CHARGE SQ SCH ×2 (08:30→21:34)
[2023-01-09] MEDS: POTASSIUM CHLORIDE / WTR 10 MEQ/100 ML PLCT IV SCH ×4 (10:39→13:52)
--- NOTE | 2023-01-09 12:22 | Surgery Progress Note ---
Date of Service January 09, 2023 Assessment & Plan (1) Cholecystitis: Plan: Continue IV antibiotics She is going for cholecystectomy with Dr. Martinez on Wednesday Admission and Anticipated Discharge Date Admission Date: January 07, 2023 Subjective Patient seen and examined. States her pain is better. No nausea or vomiting areas Review of Systems Constitutional: no fever and no chills Gastrointestinal: + abdominal pain; no nausea and no vomit ing Physical Exam Constitutional: WD/WN, vitals as above Gastrointestinal (Abdomen): Inspection/Auscultation: abdomen normal to inspection; abdomen not distended Percussion/Palpation: + abdomen tender (Epigastric) and abdomen soft; no guarding and no hernia Results & Data Vital Signs (Past 12 Hours) Vital Signs Temp Pulse Resp BP Pulse Ox O2 Del Method 01/09/23 07:30 36.4 C L 81 15 118/73 94 Room Air PG Care Time/CCT Total # of Minutes Spent Total Time Spent with Patient: Total time spent is greater than 50% in coordination of care (as documented) at patient's floor/unit and/or counseling patient: Coding Level of Care Code 10399 SUB INP/OBS CARE 25MIN Diagnoses Cholecystitis K81.9
[2023-01-10] MEDS: PIPERACILLIN/TAZOBACTAM 4.5 GM in DEXTROSE 5% MINI-B 100 ML IV SCH ×2 (02:10→10:29)
[2023-01-10] MEDS: SODIUM CHLORIDE 0.9% 1,000 ML IV SCH ×2 (02:12→15:02)
[2023-01-10 06:11] LABS: Hematocrit (blood only) 31.6 % (37.0-47.0); Mean Corpuscular Hemoglobin 31.2 pg (25.0-34.0); Mean Corpuscular Hgb Conc 34.8 g/dL (32.0-36.0); Mean Corpuscular Volume 89.5 fL (80.0-100.0); Mean Platelet Volume 9.4 fL (9.4-12.4); Platelet Count 327 K/uL (130-400); RDW Coefficient of Variation 16.2 % (11.5-14.5); RDW Standard Deviation 53.4 fL (36.4-46.3); Red Blood Count 3.53 M/uL (4.20-5.40); White Blood Count 6.45 K/ul (4.8-10.8)
[2023-01-10 06:17] LABS: Albumin Globulin Ratio 0.9 (0.9-2); Albumin Level 3.1 gm/dl (3.4-5.0); BUN Creatinine Ratio 9.4 (10-20); Bilirubin,Total 3.1 mg/dl (0.2-1.0); Calcium 8.8 mg/dl (8.6-10.3); Creatinine Clr Calc Pharmacy 159.3 ml/min; Est GFR (African American) 124.9 ml/min; Est GFR (Non-African American) 107.8 ml/min; Globulin 3.5 gm/dl (2.5-4.0); Magnesium 1.9 mg/dl (1.7-2.4); Phosphorus 3.3 mg/dl (2.5-4.9); Potassium 3.5 mmol/L (3.5-5.1); Total Protein 6.6 gm/dl (6.0-8.3)
[2023-01-10] MEDS: LEVOTHYROXINE SODIUM 137 MCG TABLET PO SCH (08:21)
[2023-01-10] MEDS: INSULIN ASPART PER UNIT CHARGE SC SCH ×4 (08:26→21:17)
[2023-01-10] MEDS: LANTUS PER UNIT CHARGE SQ SCH ×2 (08:26→21:17)
[2023-01-10] MEDS: LIDOCAINE 5% 1 PATCH TD SCH (08:41)
--- NOTE | 2023-01-10 10:51 | Surgery Progress Note ---
Date of Service January 10, 2023 Assessment & Plan (1) Cholecystitis: Plan: She remains stable and is scheduled for a cholecystectomy tomorrow with Dr. Martinez Keep her n.p.o. continue IV antibiotics on board Admission and Anticipated Discharge Date Admission Date: January 07, 2023 Subjective Patient seen and examined. Having some nausea. Abdominal pain continues to improve. Afebrile. No acute events overnight. Review of Systems Constitutional: no fever and no chills Physical Exam Constitutional: WD/WN, vitals as above Gastrointestinal (Abdomen): Inspection/Auscultation: abdomen normal to inspection; abdomen not distended Percussion/Palpation: + abdomen tender (Epigastric) and abdomen soft; no guarding and no hernia Results & Data Vital Signs (Past 12 Hours) Vital Signs Temp Pulse Resp BP Pulse Ox O2 Del Method 01/10/23 07:50 Room Air 01/10/23 07:33 36.7 C 81 16 138/80 96 Room Air PG Care Time/CCT Total # of Minutes Spent Total Time Spent with Patient: Total time spent is greater than 50% in coordination of care (as documented) at patient's floor/unit and/or counseling patient: Coding Level of Care Code 05126 SUB INP/OBS CARE 03/25MIN Diagnoses Cholecystitis K81.9
--- NOTE | 2023-01-10 10:58 | Hospitalist Progress Note ---
Date of Service January 10, 2023 Assessment & Plan (1) Vomiting: Plan: Mr. Vega is a 47-year-old female past med history significant for metastatic breast cancer, diabetes ,hypothyroidism comes because of ongoing nausea and vomiting since last chemo 3 weeks ago. Patient admitted on 01/07 due to concerns of cholecystitis. HIDA and ABD US positive for acute cholecystitis #Acute cholecystitis #Persistent nausea and vomiting CT scan questionable cholecystitis HIDA and US +cholecystitis -Transition to cipro/flagyl based upon susceptibilities of ESBL -Surgery following at this time: Lap bart possibly 01/11 @ 1400 -Gentle IV fluids and CLD as tolerated; NPO at midnight -Trial of Phenergan given IVPB rather than push #UTI, ESBL UA culture with GNB -Transition to Cipro.flagyl based upon susceptibilities #Uncontrolled Diabetes On 50U BID lantus at home Continue 20UBID while NPO Plan for glycemic consult given A1C 9.2% #Hypothyroidism On Synthyroid #Metastatic breast cancer #Mets to ribs with bilateral pathologic rib fractures -Denies use of gabapentin, Flexeril or fentanyl at this time; relies on prn oxy -Resume Oxycodone prn q6h 10mg as needed, IV dialudid prn -No further systemic option per Dr. Newby other than radiation; seeking OP second opinion at [place] -Completed 2/5 fractions; Rad-Onc feels symptoms not related to presentation -Rad Onc will readdress contingent on inpatient status -Holding on palliative per patient #Chronic Normocytic anemia -Stable, CTM #Morbid obesity BMI 49.2, Encourage lifestyle modifications and healthy habits while inpatient DVT prophylaxis SCDs for now if no procedure planned will place on Lovenox. Disposition Medical floor Full code Admission and Anticipated Discharge Date Admission Date: January 07, 2023 Subjective Unable to tolerate PO or IVP/port flushing without nausea and vomiting Reports distress over medical journey in journey, but declines further discussion with Palliative at this time Reports pain is tolerable, but fluctuates at this time-declines any adjustment in current regimen Review of Systems Review of Systems: All systems reviewed & are unremarkable except as noted in Subjective Physical Exam Constitutional: WD/WN, vitals as above Respiratory: normal respiratory effort, lungs clear to auscultation Cardiovascular: RRR, no murmur, no edema Gastrointestinal (Abdomen): decline abdominal exam as surgery evaluated and tender Results & Data Results & Data Vital Signs (Past 12 Hours) Vital Signs Temp Pulse Resp BP Pulse Ox O2 Del Method 01/10/23 07:50 Room Air 01/10/23 07:33 36.7 C 81 16 138/80 96 Room Air Laboratory Results Short CBC 01/10/23 Range/Units 05:34 WBC 6.45 (4.8-10.8) K/ul Hgb 11.0 L (12.0-16.0) g/dl Hct 31.6 L (37.0-47.0) % Plt Count 327 (130-400) K/uL BMP 01/10/23 05:34 Sodium 136 Potassium 3.5 Chloride 105 Carbon Dioxide 25 BUN 6 Creatinine 0.64 Glucose 108 H Calcium 8.8 Liver Function 01/10/23 Range/Units 05:34 Total Bilirubin 3.1 H (0.2-1.0) mg/dl AST 76 H (13-39) U/L ALT 85 H (7-52) U/L Alkaline Phosphatase 424 H (34-104) U/L Albumin 3.1 L (3.4-5.0) gm/dl Medications Administered Home Medications Medication Instructions Recorded Confirmed Last Taken oxycodone 5 mg tablet 5 - 10 mg (1 - 2 x 5 mg) PO 04/25/20 01/07/23 04/28/22 21:30 .[id number] PRN pain, for initial therapy, max 6 tabs per day #6 tabs denosumab 120 mg/1.7 mL (70 mg/mL) 120 mg subcut .Q 3months 01/01/22 01/07/23 03/10/22 11:00 subcutaneous solution (Xgeva) gabapentin 300 mg capsule 300 mg PO DAILY 07/30/22 01/07/23 Unknown blood-glucose sensor (Dexcom G6 12/17/22 01/07/23 Unknown Sensor device) blood-glucose transmitter (Dexcom 12/17/22 01/07/23 Unknown G6 Transmitter device) cyclobenzaprine 10 mg tablet 10 mg PO HS 12/17/22 01/07/23 Unknown dexamethasone 4 mg tablet See Rx Instructions .Route .COMPLEX 12/17/22 01/07/23 Unknown insulin aspart U-100 100 unit/mL 10 unit subcut TID 12/17/22 01/07/23 Unknown (3 mL) subcutaneous pen (Novolog FlexPen U-100 Insulin aspart) insulin glargine 100 unit/mL (3 40 unit subcut BID 12/17/22 01/07/23 Unknown mL) subcutaneous pen (Lantus Solostar U-100 Insulin) levothyroxine 137 mcg tablet 137 mcg PO DAILY 12/17/22 01/07/23 Unknown nitroglycerin 0.4 mg sublingual 0.4 mg sublingual Q5M PRN Chest 12/17/22 01/07/23 Unknown tablet (Nitrostat) Pain ondansetron HCl 8 mg tablet 8 mg PO Q12H 12/17/22 01/07/23 Unknown pen needle, diabetic 32 gauge x 12/17/22 01/07/23 Unknown " (BD Ultra-Fine Aletha Pen Needle) promethazine 25 mg rectal 25 mg AR Q6H PRN sedation #12 ea 12/27/22 01/07/23 Unknown suppository oxycodone 10 mg tablet 10 - 20 mg PO Q4 PRN Pain 01/07/23 01/07/23 Unknown Active Medications Generic Name Dose Route Start Last Admin Trade Name Freq PRN Reason Stop Dose Admin Hydromorphone HCl 0.5 mg 01/07/23 23:33 01/09/23 05:44 Hydromorphone Inj 0.5 Mg/0.5 Ml Syr IV 01/21/23 23:32 0.5 mg Q3H PRN Administration Pain Sodium Chloride 1,000 mls @ 75 mls/hr 01/07/23 23:33 01/10/23 02:12 Nss IV 02/06/23 23:32 75 mls/hr .[id number] JESSE Administration Piperacillin Sod/Tazobactam 100 mls @ 25 mls/hr 01/08/23 02:00 01/10/23 10:29 Sod 4.5 gm/ Dextrose IV 01/18/23 01:59 25 mls/hr Q8H JESSE Administration Protocol Insulin Aspart 0 units 01/08/23 17:20 01/10/23 08:26 Insulin Aspart Per Unit Charge SC 02/07/23 17:19 Not Given ACHS JESSE Insulin Glargine 0 units 01/08/23 21:00 01/10/23 08:26 Lantus Per Unit Charge SQ 02/07/23 20:59 20 units BID JESSE Administration Protocol Levothyroxine Sodium 137 mcg 01/08/23 06:30 01/10/23 08:21 Levothyroxine Sodium 137 Mcg Tablet PO 02/07/23 06:29 Not Given DAILYBB JESSE Lidocaine 1 patch 01/08/23 14:00 01/10/23 08:41 Lidocaine 5% 1 Patch TD 02/07/23 13:59 Not Given QAM [facility] Miscellaneous 1 each 01/08/23 21:00 01/09/23 21:29 Remove Lidoderm Patch N/A 02/07/23 20:59 1 each DAILY@2100 [facility] Administration Oxycodone HCl 10 mg 01/08/23 13:53 01/08/23 14:23 Oxycodone Hcl Ir 5 Mg Tab (Immediate Release) PO 01/22/23 13:52 10 mg Q6H PRN Administration Pain (1) Vomiting Nausea presence: unspecified Vomiting type: unspecified Qualified Code(s): R11.10 - Vomiting, unspecified
[2023-01-10] MEDS: PROMETHAZINE HCL 6.25 MG in SODIUM CHLORIDE 0.9% 50 ML IV PRN (12:18)
[2023-01-10] MEDS: CIPROFLOXACIN / D5W 400 MG/200 ML BAG IV SCH ×2 (12:37→23:03)
[2023-01-10] MEDS: metroNIDAZOLE 500 MG/100 ML BAG IV SCH ×2 (12:40→18:46)
[2023-01-10] MEDS ORDERED: oxyCODONE HCL IR 5 MG TAB (IMMEDIATE RELEASE) PO STA (18:49)
[2023-01-10] MEDS ORDERED: Nursing to Pharmacy Communication SCH (23:30)
[2023-01-11] MEDS: INSULIN ASPART PER UNIT CHARGE SC SCH ×5 (00:27→20:48)
[2023-01-11] MEDS: PROMETHAZINE HCL 6.25 MG in SODIUM CHLORIDE 0.9% 50 ML IV PRN ×2 (02:50→09:46)
[2023-01-11] MEDS: SODIUM CHLORIDE 0.9% 1,000 ML IV SCH ×2 (03:23→16:33)
[2023-01-11] MEDS: metroNIDAZOLE 500 MG/100 ML BAG IV SCH ×3 (03:23→19:20)
[2023-01-11] MEDS ORDERED: HEPARIN 100 UNIT/ML 5ML FLUSH ONE (05:42)
[2023-01-11] MEDS ORDERED: Nursing to Pharmacy Communication SCH ×2 (05:45→15:15)
[2023-01-11] MEDS: LEVOTHYROXINE SODIUM 137 MCG TABLET PO SCH (05:56)
[2023-01-11 06:27] LABS: Hematocrit (blood only) 31.3 % (37.0-47.0); Hemoglobin 10.9 g/dl (12.0-16.0); Mean Corpuscular Hemoglobin 31.6 pg (25.0-34.0); Mean Corpuscular Hgb Conc 34.8 g/dL (32.0-36.0); Mean Corpuscular Volume 90.7 fL (80.0-100.0); Mean Platelet Volume 9.2 fL (9.4-12.4); Platelet Count 328 K/uL (130-400); RDW Coefficient of Variation 16.1 % (11.5-14.5); RDW Standard Deviation 52.8 fL (36.4-46.3); Red Blood Count 3.45 M/uL (4.20-5.40); White Blood Count 6.07 K/ul (4.8-10.8)
[2023-01-11 06:45] LABS: Albumin Level 3.1 gm/dl (3.4-5.0); BUN Creatinine Ratio 8.1 (10-20); Bilirubin,Total 1.4 mg/dl (0.2-1.0); Calcium 8.4 mg/dl (8.6-10.3); Creatinine Clr Calc Pharmacy 164.5 ml/min; Est GFR (African American) 126.2 ml/min; Est GFR (Non-African American) 108.9 ml/min; Globulin 3.2 gm/dl (2.5-4.0); Magnesium 1.7 mg/dl (1.7-2.4); Phosphorus 3.9 mg/dl (2.5-4.9); Potassium 3.1 mmol/L (3.5-5.1); Total Protein 6.3 gm/dl (6.0-8.3)
--- NOTE | 2023-01-11 07:24 | History & Physical Bridge Note ---
Date of Service January 11, 2023 History & Physical Bridge Note I have examined the patient, reviewed the History & Physical and in the interval since the performance of the History & Physical I have noted the following changes of clinical significance: no changes noted
[2023-01-11] MEDS: LIDOCAINE 5% 1 PATCH TD SCH (07:46)
[2023-01-11] MEDS: POTASSIUM CHLORIDE / WTR 10 MEQ/100 ML PLCT IV SCH ×4 (07:46→11:43)
[2023-01-11] MEDS ORDERED: SCOPOLAMINE 1 MG TDSY TD ONE (11:24)
[2023-01-11] MEDS ORDERED: ePHEDrine sulfate 50 MG/ML AMP IV PRN (11:26)
[2023-01-11] MEDS ORDERED: ONDANSETRON INJ 2 MG/ML 2 ML VIAL IV PRN (11:26)
[2023-01-11] MEDS ORDERED: ATROPINE SULFATE 0.1 MG/ML 10ML SYR IV PRN (11:26)
--- NOTE | 2023-01-11 11:26 | Anesthesiology Consultation ---
Date of Service January 11, 2023 Assessment & Plan ASA ASA4 Proposed Anesthesia Anesthesia Type: General Risk / Benefits Reviewed With: PT / POA / Parent / Guardian, Accepts Plan and Informed Consent Obtained History Surgery Operation Date: 01/11/23 13:55 Proposed Procedures p Laparoscopic Cholecystectomy - Delgado Martinez MD Height/Weight Height: 5 ft 6 in Weight: 138.346 kg Allergies Allergy/AdvReac Type Severity Reaction Status Date / Time No Known Allergies Allergy Verified 12/27/22 22:45 Medications Home Medications Medication Instructions Recorded Confirmed Last Taken oxycodone 5 mg tablet 5 - 10 mg (1 - 2 x 5 mg) PO 04/25/20 01/07/23 04/28/22 21:30 .[id number] PRN pain, for initial therapy, max 6 tabs per day #6 tabs denosumab 120 mg/1.7 mL (70 mg/mL) 120 mg subcut .Q 3months 01/01/22 01/07/23 03/10/22 11:00 subcutaneous solution (Xgeva) gabapentin 300 mg capsule 300 mg PO DAILY 07/30/22 01/07/23 Unknown blood-glucose sensor (Dexcom G6 12/17/22 01/07/23 Unknown Sensor device) blood-glucose transmitter (Dexcom 12/17/22 01/07/23 Unknown G6 Transmitter device) cyclobenzaprine 10 mg tablet 10 mg PO HS 12/17/22 01/07/23 Unknown dexamethasone 4 mg tablet See Rx Instructions .Route .COMPLEX 12/17/22 01/07/23 Unknown insulin aspart U-100 100 unit/mL 10 unit subcut TID 12/17/22 01/07/23 Unknown (3 mL) subcutaneous pen (Novolog FlexPen U-100 Insulin aspart) insulin glargine 100 unit/mL (3 40 unit subcut BID 12/17/22 01/07/23 Unknown mL) subcutaneous pen (Lantus Solostar U-100 Insulin) levothyroxine 137 mcg tablet 137 mcg PO DAILY 12/17/22 01/07/23 Unknown nitroglycerin 0.4 mg sublingual 0.4 mg sublingual Q5M PRN Chest 12/17/22 01/07/23 Unknown tablet (Nitrostat) Pain ondansetron HCl 8 mg tablet 8 mg PO Q12H 12/17/22 01/07/23 Unknown pen needle, diabetic 32 gauge x 12/17/22 01/07/23 Unknown 32" (BD Ultra-Fine Aletha Pen Needle) promethazine 25 mg rectal 25 mg MN Q6H PRN sedation #12 ea 12/27/22 01/07/23 Unknown suppository oxycodone 10 mg tablet 10 - 20 mg PO Q4 PRN Pain 01/07/23 01/07/23 Unknown Active Medications Generic Name Dose Route Start Last Admin Trade Name Freq PRN Reason Stop Dose Admin Hydromorphone HCl 0.5 mg 01/07/23 23:33 01/09/23 05:44 Hydromorphone Inj 0.5 Mg/0.5 Ml Syr IV 01/21/23 23:32 0.5 mg Q3H PRN Administration Pain Sodium Chloride 1,000 mls @ 75 mls/hr 01/07/23 23:33 01/11/23 03:23 Nss IV 02/06/23 23:32 75 mls/hr .[id number] JESSE Administration Promethazine HCl 6.25 mg/ 50.25 mls @ 201 mls/hr 01/10/23 10:51 01/11/23 10:18 Sodium Chloride IV 02/09/23 10:50 Infused Q6H PRN Infusion Nausea And Vomiting Metronidazole 500 mg in 100 mls @ 100 mls/hr 01/10/23 11:15 01/11/23 04:32 Flagyl IV 01/20/23 11:14 Infused Q8H JESSE Infusion Protocol Ciprofloxacin 400 mg in 200 mls @ 100 mls/hr 01/10/23 11:15 01/11/23 01:10 Cipro / D5w IV 01/15/23 11:14 Infused Q12H JESSE Infusion Protocol Potassium Chloride 10 meq in 100 mls @ 100 mls/hr 01/11/23 07:30 01/11/23 10:45 K Raghu / Wtr IV 01/11/23 11:29 100 mls/hr Q1H JESSE Administration Insulin Aspart 0 units 01/11/23 00:00 01/11/23 06:05 Insulin Aspart Per Unit Charge SC 02/10/23 00:00 Not Given Q6 JESSE Levothyroxine Sodium 137 mcg 01/08/23 06:30 01/11/23 05:56 Levothyroxine Sodium 137 Mcg Tablet PO 02/07/23 06:29 Not Given DAILYBB [facility] Lidocaine 1 patch 01/08/23 14:00 01/11/23 07:46 Lidocaine 5% 1 Patch TD 02/07/23 13:59 Not Given QAM [facility] Miscellaneous 1 each 01/08/23 21:00 01/10/23 20:50 Remove Lidoderm Patch N/A 02/07/23 20:59 1 each DAILY@2100 [facility] Administration Oxycodone HCl 10 mg 01/08/23 13:53 01/08/23 14:23 Oxycodone Hcl Ir 5 Mg Tab (Immediate Release) PO 01/22/23 13:52 10 mg Q6H PRN Administration Pain NPO Date Last Intake of Fluids: 01/10/23 Time Last Intake of Fluids: 18:00 Date Last Intake of Solids: 01/10/23 Time Last Intake of Solids: 18:00 Past Medical History Medical History History of COVID-19 12/2020 + 12/2021 > residual taste dysfunction and feeling of need to clear throat Bilateral breast cancer Arthritis Liver spots "Mets from cancer" Depression with anxiety Peripheral neuropathy Heart palpitations R/t anxiety per patient Type II diabetes mellitus History of small bowel obstruction Hx bowel obstruction Hypothyroidism No current meds Breast cancer (11/12/15) Stage 4 (+ mets) Exercise / Class Metabolic Activity II 4-5 Yardwork/Stairs/Walk up hill Past Family History Family History Mother , 77yo Diabetes Heart disease Aortic valve replacement Mitral valve calcifications UTI (urinary tract infection) Father , 62yo Diabetes Myocardial infarction Hypertension Stroke Brother Diabetes Myocardial infarction Cardiac stents Pacemaker Hypertension Sister No problems noted. Daughter No problems noted. Son No problems noted. Son No problems noted. Other No family history of adverse response to anesthesia Past Surgical History Surgical History Port-A-Cath in place (04/30/22) Insertion Access Port left subclavian with Fluoroscopy(Left) - Chad Banuelos DO History of surgery Left Excisional Debridement of Buttock Wound Nausea and vomiting after administration of anesthetic agent "EXTREME" History of vascular access device PORT INSERTION/REMOVAL History of tooth extraction History of endometrial ablation History of bowel resection D/T BOWEL OBSTRUCTION History of lung surgery Left thoracoscopy with wedge resection left lower lobe Dr. Damico 03/29/2018 History of dilatation and curettage H/O hernia repair Hx of section x3 S/P lumpectomy, left breast LEFT ARM LIMB RESTRICTION Past Anesthesia History No Hx of Anesthesia Complications and No Family Hx of Anesthesia Complications History of PONV No Hx of PONV and No Hx of Motion Sickness Social History Smoking Status: Never smoker Do You Dip or Chew Tobacco: No Hx Alcohol Use: No Alcohol type: hard liquor alcohol intake frequency: holidays/special occasions only Hx Substance Use: No substance use type: does not use Substance Use Type Other:: medical marijuana Last Used Substance Other:: ONLY USES MEDICAL MARIJUANA (VAPING) FOR PAIN Review of Systems denies fever/cough/ colds/ chest pain/ SOB/ CASI denies CASI Physical Exam Vital Signs Last Vital Signs Temp 36.7 C 01/11/23 11:16 Pulse 77 01/11/23 11:16 Resp 18 01/11/23 11:16 BP 148/91 H 01/11/23 11:16 Pulse Ox 100 01/11/23 11:16 O2 Del Method Room Air 01/11/23 11:16 ENMT Mouth: + edentulous; no TMJ abnormality and no dentition abnormality Thyromental Distance: > or= 3.5 Finger Breadths Mallampati Class: II Neck neck extension not limited Respiratory normal respiratory effort; no respiratory distress Auscultation: lungs clear to auscultation bilaterally Cardiovascular Rate/Rhythm: regular rate and regular rhythm Neurologic moves all extremities Psychiatric Orientation: alert and oriented x 3 Testing Laboratory Results 01/11/23 05:49 01/11/23 05:49 Hemoglobin A1c 9.2 % (4.5-5.6) H 01/08/23 05:49 Urine Color Finney 01/07/23 16:45 Urine Appearance Cloudy (Clear) A 01/07/23 16:45 Urine pH 5.5 (4.5-7.5) 01/07/23 16:45 Ur Specific Wells 1.037 (1.000-1.030) H 01/07/23 16:45 Urine Protein Trace (Negative) H 01/07/23 16:45 Urine Glucose (UA) 3+ (Negative) H 01/07/23 16:45 Urine Ketones Trace (Negative) H 01/07/23 16:45 Urine Nitrite Negative (Negative) 01/07/23 16:45 Ur Leukocyte Esterase 1+ (Negative) H 01/07/23 16:45 Urine WBC (Auto) >30 /hpf (0-5) H 01/07/23 16:45 Urine RBC (Auto) 10-30 /hpf (0-4) H 01/07/23 16:45 U Hyaline Cast (Auto) 10-30 /lpf (0-5) H 01/07/23 16:45 U Epithel Cells (Auto) 20-30 /lpf (0-5) H 01/07/23 16:45 Urine Bacteria (Auto) 4+ (Negative) H 01/07/23 16:45 01/07/23 16:45 Urine Culture - Final Urine,Clean Catch Escherichia coli ESBL 01/11/23 01/11/23 05:54 00:00 POC Glucose 91 105 H 01/11/23 11:17 POC Ur Test NEG
[2023-01-11] MEDS ORDERED: SCOPOLAMINE 1 MG TDSY TD SCH (11:30)
--- NOTE | 2023-01-11 11:30 | Hospitalist Progress Note ---
Date of Service January 11, 2023 Assessment & Plan (1) Vomiting: Plan: 47-year-old female past med history significant for metastatic breast cancer, diabetes ,hypothyroidism comes because of ongoing nausea and vomiting since last chemo 3 weeks ago. Patient admitted on 01/07 due to concerns of cholecystitis. HIDA and ABD US positive for acute cholecystitis Acute cholecystitis Persistent nausea and vomiting CT scan questionable cholecystitis HIDA and US +cholecystitis Received IV Zosyn 01/07 - 01/10, changed to Cipro/Flagyl (day 2) based upon susceptibilities of ESBL UTI Transaminitis noted, improving. CT ABD/pelvis on admission negative for intra- or extrahepatic biliary ductal dilation. Continue to monitor LFTs. General surgery following, scheduled for laparoscopic cholecystectomy today UTI, ESBL Received IV Zosyn 01/07 - 01/10, changed to Cipro/Flagyl (day 2) based upon susceptibilities of ESBL UTI Uncontrolled Diabetes Hgb A1c 9.2 Home regimen on hold, receiving Lantus and NovoLog per protocol while hospitalized. Glycemic pharmacy following. Hypothyroidism Chronic, stable Continue with thyroxine Metastatic breast cancer Mets to ribs with bilateral pathologic rib fractures Denies use of gabapentin, Flexeril or fentanyl at this time; relies on prn oxy Resume Oxycodone prn q6h 10mg as needed, IV dialudid prn No further systemic option per Dr. Newby other than radiation; seeking OP second opinion at [facility] Completed 2/5 fractions; Rad-Onc feels symptoms not related to presentation Holding on palliative per patient Chronic Normocytic anemia Hgb 10.9, at baseline Morbid obesity BMI 49.2, Encourage lifestyle modifications and healthy habits while inpatient DVT PROPHYLAXIS TEDs/SCDs due to surgical procedure Dispo - For OR today, likely DC home once medically stable Patient is in collaboration with Dr. Magallanes. Admission and Anticipated Discharge Date Admission Date: January 07, 2023 Supervising Physician Co-Signing Physician Notes I have seen and discussed the case with the collaborating PUBLIC RELATIONS PROFESSIONAL. I agree with the above H&P. I have reviewed and confirmed the patients medical history, the findings on physical examination, and the patients diagnosis and treatment plan with Love PUBLIC RELATIONS PROFESSIONAL and agree with the information documented. In short, Ms Vega is a 47 year old woman with refractory nausea, potentially multifactorial in nature, pending lap bart this afternoon. Discussed contingency plans for nausea control if procedure proves to not resolve concerns. Rest of plan as above. Subjective Follow-up for acute cholecystitis, ESBL UTI. Patient seen and examined. Reports ongoing nausea and vomiting. Currently no RUQ pain. Scheduled for OR this afternoon for laparoscopic cholecystectomy. Denies chest pain and shortness of breath. Physical Exam Constitutional: WD/WN, vitals as above no acute distress Respiratory: normal respiratory effort, lungs clear to auscultation Cardiovascular: Rate/Rhythm: regular rate and regular rhythm Vessels: normal peripheral pulses Extremities: no edema Chest (Breasts): Chest: + vascular access device or port Gastrointestinal (Abdomen): normal bowel sounds, soft, nontender, no hepatosplenomegaly Skin: no rashes, warm and dry Neurologic: no focal motor deficits Psychiatric: A+Ox3, euthymic affect Results & Data Results & Data Vital Signs (Past 12 Hours) Vital Signs Temp Pulse Resp BP Pulse Ox O2 Del Method 01/11/23 11:16 36.7 C 77 18 148/91 H 100 Room Air 01/11/23 07:32 36.4 C L 79 14 126/84 95 Room Air Laboratory Results Short CBC 01/11/23 Range/Units 05:49 WBC 6.07 (4.8-10.8) K/ul Hgb 10.9 L (12.0-16.0) g/dl Hct 31.3 L (37.0-47.0) % Plt Count 328 (130-400) K/uL BMP 01/11/23 05:49 Sodium 138 Potassium 3.1 L Chloride 106 Carbon Dioxide 26 BUN 5 L Creatinine 0.62 Glucose 91 Calcium 8.4 L Liver Function 01/11/23 Range/Units 05:49 Total Bilirubin 1.4 H D (0.2-1.0) mg/dl AST 40 H (13-39) U/L ALT 60 H (7-52) U/L Alkaline Phosphatase 339 H (34-104) U/L Albumin 3.1 L (3.4-5.0) gm/dl (1) Vomiting Nausea presence: unspecified Vomiting type: unspecified Qualified Code(s): R11.10 - Vomiting, unspecified
[2023-01-11] MEDS: LACTATED RINGER'S 1,000 ML IV SCH ×2 (11:32→15:07)
[2023-01-11] MEDS ORDERED: BUPIVACAINE/EPINEPHRINE 0.5% MPF 1:200,000 30 ML VIAL ONE (11:58)
[2023-01-11] MEDS ORDERED: LIDOCAINE 2% 2 ML VIAL/AMP(20MG/ML) INFIL ONE (11:59)
[2023-01-11] MEDS ORDERED: MIDAZOLAM HCL 1 MG/ML 2ML VIAL ONE ×2 (11:59)
[2023-01-11] MEDS ORDERED: PROPOFOL IV EMULSION 10 MG/ML 20 ML VIAL IV ONE (11:59)
[2023-01-11] MEDS ORDERED: fentaNYL citrate PF 100 MCG/2 ML VIAL ONE (12:00)
[2023-01-11] MEDS ORDERED: ONDANSETRON INJ 2 MG/ML 2 ML VIAL ONE ×2 (12:07→13:24)
--- NOTE | 2023-01-11 12:12 | Pharmacy Report ---
Pharmacy Glycemic Short Note 2 - Date of Service January 11, 2023 - Glycemic Short BSG Results (Last 24 hours): 01/10/23 01/10/23 01/11/23 16:38 20:50 00:00 Glucose POC Glucose 146 H 122 H 105 H 01/11/23 01/11/23 01/11/23 05:49 05:54 11:52 Glucose 91 POC Glucose 91 99 OUTPATIENT ANTIDIABETIC REGIMEN: * Lantus 40 units SC BID * Novolog 10 units SC TID before meals HbA1c: 9.2% (01/08/23) ASSESSMENT: 01/11/23 * BSGs yesterday were [phone] mg/dL. Today's BSGs are 91-99 mg/dL. Patient is NPO for a lap bart. * Patient received 22 units of insulin yesterday (20 units of basal and 2 units of bolus). * Held Lantus this AM since patient NPO. Start Lantus 20 units HS tonight. * Loosen Novolog slightly. BACKGROUND * SHAMAR is a 47 year old female who presented to ED yesterday for evaluation of persistent N&V following chemotherapy for metastatic breast cancer * Pharmacy consulted for glycemic management this afternoon (BSG 277 mg/dL) * CT and HIDA scans performed and are compatible with acute cholecystitis * Patient is NPO at this time, will give ~50-75% of home basal dose for now * Will tighten prior Novolog parameters PLAN FOR INPATIENT GLYCEMIC CONTROL: * Basal insulin * Lantus 20 units SQ BID * Bolus insulin * NovoLog per scale ACHS or Q6hrs while NPO * Goal Range: Low 110 mg/dL - High 140 mg/dL * Correction Factor: 20 mg/dL/unit * Nutritional / Prandial insulin per carb ratio of 1 unit per 6 grams CHO consumed
[2023-01-11] MEDS: CIPROFLOXACIN / D5W 400 MG/200 ML BAG IV SCH ×2 (12:20→23:31)
[2023-01-11] MEDS ORDERED: ROCURONIUM BROMIDE 10 MG/ML 5 ML VIAL IV ONE (13:25)
[2023-01-11] MEDS ORDERED: NEOSTIGMINE METHYLSULFATE 1 MG/ML 10ML VIAL ONE (13:26)
[2023-01-11] MEDS ORDERED: GLYCOPYRROLATE 0.2 MG/ML VIAL ONE ×2 (13:26)
--- NOTE | 2023-01-11 13:36 | Post Operative Brief Note ---
Immediate Post Op Note v1 Date of Surgery January 11, 2023 Pre & Post Diagnosis Operation Date: 01/11/23 13:55 Pre-Op Diagnosis: Cholecystitis Post-Op Diagnosis: Cholecystitis I identified the patient and participated in the time-out.: Yes Procedure Operation Date: 01/11/23 13:55 Actual Procedures p Laparoscopic Cholecystectomy(Not Applicable) - Delgado Martinez MD Surgeon Delgado Martinez MD Rinkman none Estimated Blood Loss 35 Findings Consistent with Post-Op Diagnosis
--- NOTE | 2023-01-11 13:42 | Operative Report ---
Post Operative Report Pre & Post Diagnosis Operation Date: 01/11/23 13:55 Pre-Op Diagnosis: Cholecystitis Post-Op Diagnosis: Cholecystitis I identified the patient and participated in the time-out.: Yes Procedure Operation Date: 01/11/23 13:55 Actual Procedures p Laparoscopic Cholecystectomy(Not Applicable) - Delgado Martinez MD Surgeon Delgado Martinez MD Disposal Man none Estimated Blood Loss 35 Findings Consistent with Post-Op Diagnosis Acutely inflamed gallbladder, with multiple stones. The tissue was friable and not amenable to doing interoperative cholangiogram. Specimens Gallbladder to pathology Drains None Anesthesia Type General Complications None Indications This is a 47-year-old female admitted through the emergency department with acute abdominal pain. She has known metastatic breast cancer. Initial CT scan showed sludge and a subsequent HIDA scan showed nonfilling of the gallbladder. She has been on IV antibiotics and ultrasound was done which confirmed multiple stones in her gallbladder. She had a slight bump in her LFTs although her common duct was only 7 mm. We talked about doing laparoscopic cholecystectomy with cholangiogram. She understands the risk of an open procedure, retained common bile duct stone, postop bile leak, common bile duct injury, inability to perform the cholangiogram, infection, and bleeding. Description of Procedure The patient was taken the OR and underwent excellent general endotracheal anesthesia. Their abdomen is prepped and draped normal sterile fashion. Transverse supraumbilical incision was made and dissection was taken down to identify the anterior fascia. Two Vicryl's were placed on either side of the midline and his midline was then incised. The peritoneal cavity was entered bluntly with Chiara clamp. A 12mm Tapia trocar was then inserted and secured. Good pneumoperitoneum was achieved to 15 mmHg pressure. Patient is placed in head up and rolled to the left. A 11mm subxiphoid and two 5mm lateral ports were placed in the normal fashion. The gallbladder was identified was acutely inflamed, with dense friable tissue. This then facilitated grasping the the fundus of the gallbladder which was retracted superiorly. The neck of the gallbladder was grasped and then retracted laterally. This splayed open the hepatocystic triangle. Attention was then to taking down the peritoneal attachments to identify the cystic duct and cystic artery. Once these were skeletonized and a medial and lateral window was created between the gallbladder fossa and the duct, thereby ensuring the critical view. Her duct was too friable to perform a IOC. Three clips were then placed distally on cystic duct 1 proximally the cystic duct was transected. Two clips were then placed approximately cystic artery one distally, the cystic artery was transected. An electrocautery hook was then used to move the gallbladder off the gallbladder fossa. There was some bile spillage but no stones were spilled. The gallbladder was then placed in Endobag and brought out through the supraumbilical incision. The pneumoperitoneum was re-established and abdomen was irrigated out until the suction fluid was clear. There were some areas on the gallbladder fossa which were raw and were cauterized. The ports were then removed and the abdomen decompressed. The fascia of the supraumbilical incision was closed with Vicryls. 0.5% Marcaine with epinephrine local was to create a local field block. Interrupted Vicryl was used to close the skin. Steri-Strips and benzoin were used to reinforce the incisions. Sterile dressings were applied. Patient tolerated the procedure without complication and sent to the postop recovery period of observation. He will then be sent to the floor for the rest of his care. I attest to the content of the Intraoperative Record and any orders documented therein. Any exceptions are noted below.
[2023-01-11] MEDS ORDERED: PHENYLEPHRINE 100MCG/ML 10ML SYR IV ONE (13:52)
[2023-01-11] MEDS: fentaNYL citrate PF 100 MCG/2 ML VIAL IV PRN ×2 (14:02→14:07)
[2023-01-11] MEDS: HYDROmorphone INJ 2 MG/ML SYR/VIAL IV PRN ×4 (14:20→14:42)
--- NOTE | 2023-01-11 14:53 | Anesthesiology Progress Note ---
Date of Service January 11, 2023 Anesthesia Post Procedure Vital Signs Vital Signs: Temp Pulse Pulse Resp BP Pulse Ox O2 Del Method 01/11/23 14:45 72 17 113/67 96 Room Air 01/11/23 14:35 74 17 115/72 97 Room Air 01/11/23 14:25 73 17 116/70 96 Room Air 01/11/23 14:15 76 19 121/77 96 Room Air 01/11/23 14:05 80 17 120/74 99 Oxymask 01/11/23 13:55 87 24 117/73 99 Oxymask 01/11/23 13:45 36.5 C 72 18 124/74 96 Oxymask 01/11/23 11:16 36.7 C 77 18 148/91 H 100 Room Air 01/11/23 07:32 36.4 C L 79 14 126/84 95 Room Air 01/10/23 20:45 Room Air 01/10/23 19:56 36.4 C L 79 16 138/79 95 Room Air 01/10/23 14:57 36.4 C L 80 16 139/91 100 Room Air O2 Flow Rate 01/11/23 14:45 01/11/23 14:35 01/11/23 14:25 01/11/23 14:15 01/11/23 14:05 4 01/11/23 13:55 7 01/11/23 13:45 7 01/11/23 11:16 01/11/23 07:32 01/10/23 20:45 01/10/23 19:56 01/10/23 14:57 Pain Intensity Bilateral Hand: Pain Intensity: 9 Abdomen: Pain Intensity: 8 Transfer of Care Handoff Completed per policy Notes Mental Status: alert / awake / arousable and participated in evaluation Patient Amnestic to Procedure: Yes Nausea / Vomiting: adequately controlled Pain: adequately controlled Airway Patency, RR, SpO2: stable & adequate BP & HR: stable & adequate Hydration State: stable & adequate Anesthetic Complications: no major complications apparent and Pt Satisfied with anesthetic care
[2023-01-11] MEDS ORDERED: MoRPHine SULFATE 2 MG/ML CARP IV PRN (15:16)
[2023-01-11] MEDS ORDERED: MoRPHine SULFATE 4 MG/ML 1 ML CARP\\VIAL IV PRN (15:16)
[2023-01-11] MEDS: CHECK SCOPOLAMINE PATCH PLACEMENT SCH ×2 (15:19→23:53)
[2023-01-11] MEDS ORDERED: HYDROmorphone INJ 1 MG/ML SYRINGE IV STA (16:23)
[2023-01-11] MEDS: CYCLOBENZAPRINE HCL 10 MG TAB PO SCH ×2 (20:34→20:36)
[2023-01-11] MEDS: LANTUS PER UNIT CHARGE SC SCH (20:48)
[2023-01-11] MEDS: HYDROmorphone INJ 0.5 MG/0.5 ML SYR IV PRN (23:53)
[2023-01-12] MEDS: metroNIDAZOLE 500 MG/100 ML BAG IV SCH ×3 (02:46→21:02)
[2023-01-12] MEDS: SODIUM CHLORIDE 0.9% 1,000 ML IV SCH (05:50)
[2023-01-12] MEDS: LEVOTHYROXINE SODIUM 137 MCG TABLET PO SCH (05:51)
[2023-01-12 06:47] LABS: Hematocrit (blood only) 30.1 % (37.0-47.0); Hemoglobin 10.1 g/dl (12.0-16.0); Mean Corpuscular Hemoglobin 31.9 pg (25.0-34.0); Mean Corpuscular Hgb Conc 33.6 g/dL (32.0-36.0); Mean Platelet Volume 8.7 fL (9.4-12.4); Platelet Count 303 K/uL (130-400); RDW Coefficient of Variation 16.4 % (11.5-14.5); RDW Standard Deviation 56.9 fL (36.4-46.3); Red Blood Count 3.17 M/uL (4.20-5.40)
[2023-01-12] MEDS: LACTATED RINGER'S 1,000 ML IV SCH (07:01)
[2023-01-12 07:13] LABS: BUN Creatinine Ratio 8.8 (10-20); Calcium 8.3 mg/dl (8.6-10.3); Creatinine Clr Calc Pharmacy 127.5 ml/min; Est GFR (African American) 103.2 ml/min; Magnesium 1.6 mg/dl (1.7-2.4); Phosphorus 3.9 mg/dl (2.5-4.9); Potassium 3.5 mmol/L (3.5-5.1)
[2023-01-12] MEDS: MAGNESIUM SULFATE / D5W 1 GM/100 ML BAG IV SCH ×3 (07:53→11:17)
[2023-01-12] MEDS: LIDOCAINE 5% 1 PATCH TD SCH (07:53)
[2023-01-12] MEDS: CHECK SCOPOLAMINE PATCH PLACEMENT SCH ×2 (07:53→16:55)
[2023-01-12] MEDS: INSULIN ASPART PER UNIT CHARGE SC SCH ×4 (07:59→20:42)
[2023-01-12] MEDS: oxyCODONE HCL IR 5 MG TAB (IMMEDIATE RELEASE) PO PRN (08:49)
--- NOTE | 2023-01-12 09:32 | Surgery Progress Note ---
Date of Service January 12, 2023 Assessment & Plan (1) Cholecystitis: Plan: s/p lap bart; not able to complete IOC; TB normal this AM would need ERCP per GI if signs of CBD stone show dressings off today appt my clinic two weeks discharge per medical team Present on Admission?: Yes Admission and Anticipated Discharge Date Admission Date: January 07, 2023 Subjective pain controlled eating OK Review of Systems Constitutional: no fever, no chills and no anorexia Gastrointestinal: + abdominal pain; no nausea and no vomit ing Physical Exam Constitutional: WD/WN, vitals as above Gastrointestinal (Abdomen): Inspection/Auscultation: abdomen normal to inspection, normal bowel sounds and + abdominal surgical incision (dressings dry); abdomen not distended Percussion/Palpation: + abdomen tender and abdomen soft; no guarding and abdomen not rigid Results & Data Vital Signs (Past 12 Hours) Vital Signs Temp Pulse Resp BP Pulse Ox O2 Del Method 01/12/23 08:27 36.9 C 82 18 105/75 96 Room Air 01/12/23 08:06 95 Room Air 01/12/23 02:45 36.5 C 86 18 118/73 91 Room Air 01/11/23 22:00 36.8 C 93 H 16 124/78 93 Room Air
[2023-01-12] MEDS: CIPROFLOXACIN / D5W 400 MG/200 ML BAG IV SCH ×2 (12:04→23:28)
--- NOTE | 2023-01-12 14:46 | Hospitalist Progress Note ---
Date of Service January 12, 2023 Assessment & Plan (1) Vomiting: Plan: 47-year-old female past med history significant for metastatic breast cancer, diabetes ,hypothyroidism comes because of ongoing nausea and vomiting since last chemo 3 weeks ago. Patient admitted on 01/07 due to concerns of cholecystitis. HIDA and ABD US positive for acute cholecystitis Acute cholecystitis Persistent nausea and vomiting CT scan questionable cholecystitis HIDA and US +cholecystitis Received IV Zosyn 01/07 - 01/10, changed to Cipro/Flagyl (day 3) based upon susceptibilities of ESBL UTI POD#[address] Martinez Transaminitis noted. CT ABD/pelvis on admission negative for intra- or extrahepatic biliary ductal dilation. Continue to monitor LFTs. LFTs continue to improve, T. bili normal today. Intraoperative cholangiogram was unable to be completed, if LFTs continue to rise, patient will need ERCP. UTI, ESBL Received IV Zosyn 01/07 - 01/10, changed to Cipro/Flagyl (day 3) based upon [place] ceptibilities of ESBL UTI Metastatic breast cancer Mets to ribs with bilateral pathologic rib fractures Denies use of gabapentin, Flexeril or fentanyl at this time; relies on prn oxy Resume Oxycodone prn q6h 10mg as needed Will discontinue IV Dilaudid today to establish PO pain med regimen No further systemic option per Dr. Newby other than radiation; seeking OP second opinion at [place] Completed 2/5 fractions; Rad-Onc feels symptoms not related to presentation Holding on palliative per patient Uncontrolled Diabetes Hgb A1c 9.2 Home regimen on hold, receiving Lantus and NovoLog per protocol while hospitalized. Glycemic pharmacy following. Hypothyroidism Chronic, stable Continue levothyroxine Chronic Normocytic anemia Hgb 10.1, at baseline Morbid obesity BMI 49.2, Encourage lifestyle modifications and healthy habits while inpatient DVT PROPHYLAXIS TEDs/SCDs due to surgical procedure Dispo - pending, likely DC home tomorrow if pain controlled and tolerating p.o. Admission and Anticipated Discharge Date Admission Date: January 07, 2023 Supervising Physician Co-Signing Physician Notes I have seen and discussed the case with the collaborating AUTOMATIC DRILL OPERATOR. I agree with the above H&P. I have reviewed and confirmed the patients medical history, the findings on physical examination, and the patients diagnosis and treatment plan with Love AUTOMATIC DRILL OPERATOR and agree with the information documented. In short, Ms Vega is a 47 year old woman with refractory nausea, potentially multifactorial in nature, now POD 1 lap bart with noted improvement in symptoms. Patient will likely discharged tomorrow on PO regimen of cipro for ESBL UTI and surgical follow up as directed. Rest of plan as above. Subjective Follow-up for acute cholecystitis, ESBL UTI. Patient seen and examined. S/p laparoscopic cholecystectomy yesterday. Reports nausea has resolved. Has ongoing right rib pain. Denies abdominal pain. Tolerating diet, remains afebrile. Physical Exam Constitutional: WD/WN, vitals as above no acute distress Respiratory: normal respiratory effort, lungs clear to auscultation Cardiovascular: Rate/Rhythm: regular rate and regular rhythm Vessels: normal peripheral pulses Extremities: no edema Gastrointestinal (Abdomen): Percussion/Palpation: abdomen soft Laparoscopic incisions with dressings in place, mild incisional tenderness present Skin: no rashes, warm and dry Neurologic: no focal motor deficits Psychiatric: A+Ox3, euthymic affect Results & Data Results & Data Vital Signs (Past 12 Hours) Vital Signs Temp Pulse Resp BP Pulse Ox O2 Del Method 01/12/23 08:27 36.9 C 82 18 105/75 96 Room Air 01/12/23 08:06 95 Room Air 01/12/23 02:45 36.5 C 86 18 118/73 91 Room Air Laboratory Results Short CBC 01/12/23 Range/Units 06:29 WBC 8.00 (4.8-10.8) K/ul Hgb 10.1 L (12.0-16.0) g/dl Hct 30.1 L (37.0-47.0) % Plt Count 303 (130-400) K/uL BMP 01/12/23 06:29 Sodium 137 Potassium 3.5 Chloride 106 Carbon Dioxide 26 BUN 7 Creatinine 0.80 Glucose 140 H Calcium 8.3 L Liver Function 01/12/23 Range/Units 06:29 Total Bilirubin 1.0 (0.2-1.0) mg/dl AST 42 H (13-39) U/L ALT 50 (7-52) U/L Alkaline Phosphatase 260 H (34-104) U/L Albumin 3.0 L (3.4-5.0) gm/dl (1) Vomiting Nausea presence: unspecified Vomiting type: unspecified Qualified Code(s): R11.10 - Vomiting, unspecified
[2023-01-12] MEDS: CYCLOBENZAPRINE HCL 10 MG TAB PO SCH (20:58)
[2023-01-12] MEDS: LANTUS PER UNIT CHARGE SC SCH (21:02)
[2023-01-13] MEDS: CHECK SCOPOLAMINE PATCH PLACEMENT SCH ×2 (01:17→08:15)
[2023-01-13] MEDS: SODIUM CHLORIDE 0.9% 1,000 ML IV SCH ×2 (01:30→13:05)
[2023-01-13] MEDS: metroNIDAZOLE 500 MG/100 ML BAG IV SCH ×2 (04:16→10:48)
[2023-01-13 07:09] LABS: Hemoglobin 9.6 g/dl (12.0-16.0); Mean Corpuscular Hemoglobin 31.3 pg (25.0-34.0); Mean Corpuscular Hgb Conc 33.1 g/dL (32.0-36.0); Mean Corpuscular Volume 94.5 fL (80.0-100.0); Mean Platelet Volume 8.9 fL (9.4-12.4); Platelet Count 285 K/uL (130-400); RDW Coefficient of Variation 16.1 % (11.5-14.5); RDW Standard Deviation 55.6 fL (36.4-46.3); Red Blood Count 3.07 M/uL (4.20-5.40); White Blood Count 6.47 K/ul (4.8-10.8)
[2023-01-13] MEDS: LEVOTHYROXINE SODIUM 137 MCG TABLET PO SCH (07:24)
[2023-01-13] MEDS: LIDOCAINE 5% 1 PATCH TD SCH (07:25)
[2023-01-13] MEDS: PROMETHAZINE HCL 6.25 MG in SODIUM CHLORIDE 0.9% 50 ML IV PRN (08:13)
[2023-01-13] MEDS: INSULIN ASPART PER UNIT CHARGE SC SCH ×2 (08:17→12:31)
[2023-01-13 09:01] LABS: Albumin Level 2.9 gm/dl (3.4-5.0); BUN Creatinine Ratio 7.4 (10-20); Bilirubin,Total 0.9 mg/dl (0.2-1.0); Calcium 8.6 mg/dl (8.6-10.3); Creatinine Clr Calc Pharmacy 125.9 ml/min; Est GFR (African American) 101.7 ml/min; Est GFR (Non-African American) 87.7 ml/min; Magnesium 1.9 mg/dl (1.7-2.4); Potassium 3.9 mmol/L (3.5-5.1); Total Protein 5.9 gm/dl (6.0-8.3)
[2023-01-13] MEDS: CIPROFLOXACIN / D5W 400 MG/200 ML BAG IV SCH (10:48)
--- NOTE | 2023-01-13 13:41 | Discharge Summary ---
Date of Service January 13, 2023 Admission HPI Per Admitting Provider 47-year-old female past med history significant for metastatic breast cancer, diabetes ,hypothyroidism comes because of ongoing nausea and vomiting since last chemo 3 weeks ago. Patient states she was recently in [facility] for same. As not getting better her heme-onc doctor advised to come to the ER to get imaging studies as per patient. Has mild right lower quad abdominal discomfort. Denies any headache. No blurred visions. No headache. No runny nose. Has some sore throat from coughing. She had some chest pain few days back and thinks it from from nausea and vomiting but that resolved now. No shortness of breath. Normal bowel and bladder movements. Current resting comfortable hemodynamically stable. Past medical history. As mentioned above Past surgical history. 3 C-sections., Left lumpectomy. In the repair. Biopsy of the lung. I&D of abscess in the back. Social history. Denies smoking. No alcohol. No drug use. Family history. Mother had rheumatic fever. Diabetes. Father had CAD. Diabetes. Asbestosis. Brother has diabetes. Admission Exam Per Admitting Provider General- Not in distress Head- atraumatic Eyes- PERRL. ENT- oropharynx clear Neck- supple, no JVD. Lungs- clear to auscultation, no wheezing or crackles. Heart- regular rate and rhythm; no murmur, no gallop. Abdomen- normal bowel sounds, soft, mild ruq tenderness, no distension. Extremities- no pretibial edema, no erythema seen. Neuro- alert, oriented x 3; PERRL, no facial palsy; no dysarthria;moves extremities. Skin- warm & dry Principal Diagnosis Acute cholecystitis status post lap cholecystectomy ESBL UTI History of metastatic breast cancer with bilateral pathologic rib fractures Discharge Exam GENERAL: Alert and oriented x3. NAD, on RA. HEENT: No pallor, no icterus. Pupils equal, round and reactive to light. Oral mucosa moist. NECK: No JVD, no neck masses. HEART: S1 and S2 heard. Regular rate and rhythm. No murmur, no gallop. RESPIRATORY SYSTEM: Normal AP diameter. No accessory muscle use. No wheezing, no crackles. ABDOMEN: Soft, bowel sounds present, nontender, no distention. Rt lap bart dressings c/d/i CENTRAL NERVOUS SYSTEM: No facial droop. Speech is clear. Obeys simple c ommands. Moves extremities. EXTREMITIES: No edema, no erythema seen. Discharge Data Allergies Allergy/AdvReac Type Severity Reaction Status Date / Time No Known Allergies Allergy Verified 12/27/22 22:45 Consultations 01/07/23 19:48 ED Decision to Admit Stat 01/07/23 23:33 Consult General Surgery Routine Procedures Performed Operation Date: 01/11/23 13:55 Actual Procedures p Laparoscopic Cholecystectomy(Not Applicable) - Delgado Martinez MD Ordered Studies 01/07/23 16:09 CT abd pelvis IV con only Stat 01/08/23 14:30 US abdomen limited Routine Diabetes Follow up Diabetes Follow-up Needed for HgbA1c >9% Hospital Course (1) Vomiting: Per prior attending with addendum: 47-year-old female past med history significant for metastatic breast cancer, diabetes ,hypothyroidism comes because of ongoing nausea and vomiting since last chemo 3 weeks ago. Patient admitted on 01/07 due to concerns of cholecystitis. HIDA and ABD US positive for acute cholecystitis Acute cholecystitis Persistent nausea and vomiting CT scan questionable cholecystitis HIDA and US +cholecystitis Received IV Zosyn 01/07 - 01/10, changed to Cipro/Flagyl (day 3) based upon susceptibilities of ESBL UTI POD#[address] Dr[address] Martinez Transaminitis noted. CT ABD/pelvis on admission negative for intra- or extrahepatic biliary ductal dilation. Continue to monitor LFTs. LFTs continue to improve, T. bili normal today. Intraoperative cholangiogram was unable to be completed, if LFTs continue to rise, patient will need ERCP. UTI, ESBL Received IV Zosyn 01/07 - 01/10, changed to Cipro/Flagyl (day 3) based upon susceptibilities of ESBL UTI Metastatic breast cancer Mets to ribs with bilateral pathologic rib fractures Denies use of gabapentin, Flexeril or fentanyl at this time; relies on prn oxy Resume Oxycodone prn q6h 10mg as needed Will discontinue IV Dilaudid today to establish PO pain med regimen No further systemic option per Dr. Newby other than radiation; seeking OP second opinion at [place] Completed 2/5 fractions; Rad-Onc feels symptoms not related to presentation Holding on palliative per patient Uncontrolled Diabetes Hgb A1c 9.2 Home regimen on hold, receiving Lantus and NovoLog per protocol while hospitalized. Glycemic pharmacy following. Hypothyroidism Chronic, stable Continue levothyroxine Chronic Normocytic anemia Hgb 10.1, at baseline Morbid obesity BMI 49.2, Encourage lifestyle modifications and healthy habits while inpatient DVT PROPHYLAXIS TEDs/SCDs due to surgical procedure Dispo - pending, likely DC home tomorrow if pain controlled and tolerating p.o. Addendum: Patient was seen and examined at bedside as a follow-up of acute cholecystitis status post lap bart and ESBL UTI. Patient reports pain under control, improved nausea and vomiting. Patient ate her lunch well today, riky erated the diet. Patient is hemodynamically stable and would like to go home today. Patient reports he has enough support at home for her to be taken care of. Her LFTs trended down, she will be discharged on antibiotic to complete the course. She is to follow-up with her PCP/general surgery/oncology upon discharge. She is being discharged with following instruction at the point of discharge: Follow-up with your primary care physician within a week time and likely you will need labs CBC/CMP/magnesium/phosphorus. You underwent laparoscopic cholecystectomy. Follow-up with your general surgery in 2 weeks time upon discharge. You will be discharged on antibiotic, probiotics will be added. Complete the course. For your history of breast cancer/metastasis, follow-up with the oncology as prior. Take your medications as prescribed. Please make sure that you are able to get your medications today by calling your pharmacy before you leave the hospital so that your treatment continuity is not broken. Home Health Attestation I certify that this patient is under my care and that I, or a physicians paperhanger assistant working with me, had a face to-face encounter that meets the home health [id number] encounter requirements with this patient. The encounter with the patient was in whole, or in part, for the following medical condition, which is the primary reason for home health care (list medical condition): I certify that, based on my findings, the following services are medically necessary home health services: My clinical findings support the need for the above services because: Further, I certify that my clinical findings support that this patient is homebound (i.e. absences from home require considerable and taxing effort and are for medical reasons or rastafari services or infrequently or of short duration when for other reasons) because: Certification for Home Health Services: Based on the above findings, I certify that this patient is confined to the home and needs intermittent senior living care, physical therapy and/or speech therapy or continues to need occupational therapy. The patient is under my care, and I have initiated the establishment of the plan of care. This patient will be followed by a physician who will periodically review the plan of care. Total Time Total Time Spent Total Time Spent (In Minutes): 45 Discharge Plan Discharge Items Patient Disposition: Home - Self-Care Reason For Visit: N/V, CHOLECYTISTIS? UTI Discharge Diagnosis: Acute cholecystitis status post lap cholecystectomy ESBL UTI History of metastatic breast cancer with bilateral pathologic rib fractures Activity: Resume your previous activity Non-emergency contact: Primary Care Provider Call non-emergency contact if: you have any medication questions, your symptoms worsen and your temperature is above 101 Follow-up/Referrals: Delgado Martinez MD [Physician] - (Date & Time 01/27/2023 8:15 AM Provider Delgado Martinez MD Department General Surgery, [facility] ) Adonis Lawler CRNP [Outside Practitioners] - 01/18/23 1:20 pm Diet: Carb Consistent or DM2 Addtl Attending Provider Instructions: Follow-up with your primary care physician within a week time and likely you will need labs CBC/CMP/magnesium/phosphorus. You underwent laparoscopic cholecystectomy. Follow-up with your general surgery in 2 weeks time upon discharge. You will be discharged on antibiotic, probiotics will be added. Complete the course. For your history of breast cancer/metastasis, follow-up with the oncology as prior. Take your medications as prescribed. Please make sure that you are able to get your medications today by calling your pharmacy before you leave the hospital so that your treatment continuity is not broken. Addtl Agriculture Technician Provider Instructions: Post-Surgical ~Discharge Instructions Activity Recommendations: - lifting limitation: (20 pounds for 4 weeks), - exercise/sex/sports limit: (nonstrenuous for 2 weeks), - driving or machine use limit: (none for 1 week or until pain free and no longer taking narcotic pain medication), - Shower/bathe limit: (may shower beginning tomorrow) Diet: - Resume previous diet SPECIAL CARE INSTRUCTIONS: - May shower. Let water run over area and pat dry. - Leave steri strips on for one week and then remove. - Call the surgeon's office with any questions or concerns - - (ex. temperature higher than 101 degrees F, excessive bleeding or pain). MEDICATIONS: - Resume previous medications unless instructed otherwise by your surgeon. - Ibuprofen 600 mg every 6 hours with food FOLLOW UP VISIT: - If not already scheduled, please call the office to schedule a two week follow-up appointment. Office number Pending Studies at Discharge: Yes (gallbladder pathology, will be reviewed at postop visit) Stand-Alone Forms: My [facility], Smoking Cessation Medications and DC Order Prescriptions: New ciprofloxacin HCl 500 mg tablet 500 mg PO BID 5 Days Qty: 10 0RF metronidazole 500 mg tablet 500 mg PO Q8H 5 Days Qty: 15 0RF Probiotic 3 billion cell capsule 3,000 mmu cells PO DAILY 7 Days Qty: 7 0RF Rx Instructions: administer with a meal Continued gabapentin 300 mg capsule 300 mg PO DAILY Xgeva 120 mg/1.7 mL (70 mg/mL) solution 120 mg subcut .Q 3months (DME) Dexcom G6 Sensor Device See Rx Instructions .Route Rx Instructions: Change sensor every 10 days (DME) Dexcom G6 Transmitter Device See Rx Instructions .Route Rx Instructions: change transmitter every 90 days insulin aspart U-100 [Novolog FlexPen U-100 Insulin] 100 unit/mL (3 mL) insulin pen 10 unit subcut TID levothyroxine 137 mcg tablet 137 mcg PO DAILY cyclobenzaprine 10 mg tablet 10 mg PO HS nitroglycerin [Nitrostat] 0.4 mg tablet, sublingual 0.4 mg sublingual Q5M PRN (Reason: Chest Pain) Rx Instructions: do not exceed 3 doses per episode (DME) pen needle, diabetic [BD Ultra-Fine Aletha Pen Needle] 32 gauge x 5/32" needle See Rx Instructions .Route Rx Instructions: Use 1 three times a day with insulin injection ondansetron HCl 8 mg tablet 8 mg PO Q12H dexamethasone 4 mg tablet See Rx Instructions .ROUTE .COMPLEX Rx Instructions: Take 5 tablets Wednesday night and Wednesday morning prior to chemo; oxycodone 5 mg tablet 5 - 10 mg PO .[id number] PRN (Reason: pain, for initial therapy, max 6 tabs per day) Qty: 6 0RF Lantus Solostar U-100 Insulin 100 unit/mL (3 mL) insulin pen 40 unit SUBCUT BID oxycodone 10 mg tablet 10 - 20 mg PO Q4 PRN (Reason: Pain) promethazine 25 mg suppository 25 mg NV Q6H PRN (Reason: sedation) Qty: 12 0RF Discharge Orders: Discharge Order (Routine); Ordered 01/13/23 Ordered By: Maurisio Pettit Admission Data Admit Date/Time: 01/07/23 21:22 Attending Provider: Maurisio Pettit Admit Provider: Elder Bose Primary Care Provider: PCP,NO Other Providers: Elder Bose; Delgado Martinez
== END 2023-01-13 15:37 | disposition home or self-care (01) | DRG 418 ==
LOC: ED 15:13 → SUATTDRO 21:22 → 3E 21:22

== ENCOUNTER 2023-02-07 15:59 | Inpatient (IN) ==
--- NOTE | 2023-02-07 16:43 | XRay Report ---
XR chest 1V not portable HISTORY: 48 years-old Female illness acute shortness of breath COMPARISON: 12/27/2022 TECHNIQUE: AP view of the chest FINDINGS: Left subclavian Hedflm-v-Lwpx catheter is unchanged. Cardiac silhouette is upper limits of normal in size. Surgical suture material in the left midlung. No pneumothorax, pleural effusion or airspace con solidation. Osteoblastic skeletal metastasis redemonstrated. Chronic appearing right-sided rib fractu res are nondisplaced. IMPRESSION: 1. No acute process in the chest. 2. Osteoblastic skeletal metastasis redemonstrated. ACT 112: Negative or not required by law. The above report was generated using voice recognition software. It may contain grammatical, syntax o r spelling errors. Electronically signed by: Ruddy Chen M.D. 02/07/2023 4:42 PM
[2023-02-07 16:48] LABS: Basophils # (auto) 0.03 K/uL (0.00-0.20); Basophils % (auto) 0.3 %; Eosinophils # (auto) 0.01 K/uL (0.00-0.50); Eosinophils % (auto) 0.1 %; Hematocrit (blood only) 36.3 % (37.0-47.0); Hemoglobin 12.8 g/dl (12.0-16.0); Immature Granulocytes # (auto) 0.06 K/uL (0.01-0.20); Immature Granulocytes % (auto) 0.6 %; Lymphocytes # (auto) 1.26 K/uL (1.20-3.40); Mean Corpuscular Hemoglobin 30.6 pg (25.0-34.0); Mean Corpuscular Hgb Conc 35.3 g/dL (32.0-36.0); Mean Corpuscular Volume 86.8 fL (80.0-100.0); Mean Platelet Volume 9.7 fL (9.4-12.4); Monocytes # (auto) 0.46 K/uL (0.11-0.59); Monocytes % (auto) 4.7 %; Neutrophils % (auto) 81.3 %; Platelet Count 338 K/uL (130-400); RDW Coefficient of Variation 13.9 % (11.5-14.5); RDW Standard Deviation 43.7 fL (36.4-46.3); Red Blood Count 4.18 M/uL (4.20-5.40); White Blood Count 9.72 K/ul (4.8-10.8)
[2023-02-07 16:48] LABS: Influenza A virus by PCR Negative (Neg); Influenza B virus by PCR Negative (Neg); SARS CoV2 RNA(COVID-19) Ceph NEGATIVE (Negative)
[2023-02-07 17:11] LABS: RSV by PCR Positive (Neg)
[2023-02-07 17:13] LABS: Alanine Aminotransferase 9 U/L (7-52); Albumin Globulin Ratio 0.8 (0.9-2); Albumin Level 3.7 gm/dl (3.4-5.0); Alkaline Phosphatase 137 U/L (34-104); Anion Gap 13 (3-11); Aspartate Aminotransferase 10 U/L (13-39); BUN Creatinine Ratio 27.1 (10-20); Bilirubin,Total 1.1 mg/dl (0.2-1.0); Blood Urea Nitrogen 26 mg/dl (6-23); Calcium 12.2 mg/dl (8.6-10.3); Carbon Dioxide 27 mmol/L (21-32); Chloride 92 mmol/L (98-107); Est GFR (African American) 82.2 ml/min; Est GFR (Non-African American) 70.9 ml/min; Globulin 4.6 gm/dl (2.5-4.0); Glucose 481 mg/dl (70-99(Fasting)); Sodium 132 mmol/L (136-145); Total Protein 8.3 gm/dl (6.0-8.3)
[2023-02-07] MEDS ORDERED: ONDANSETRON INJ 2 MG/ML 2 ML VIAL IV STA (18:13)
[2023-02-07] MEDS ORDERED: NovoLIN-R INSULIN PER UNIT CHARGE IV STA (18:13)
[2023-02-07] MEDS ORDERED: ALBUT/IPRATROP 3MG/0.5MG NEB 3 ML VIAL NEB STA (18:13)
[2023-02-07] MEDS ORDERED: ACETAMINOPHEN 1,000 MG/100 ML VIAL IV STA (18:13)
--- NOTE | 2023-02-07 18:24 | Emergency Department Note ---
Impression & Plan Weakness, Breast cancer, Hypercalcemia, RSV (respiratory syncytial virus infection), Cough, Hyperglycemia ED Provider Note NAME: DEMETRIA CHAN AGE: 48 SEX: F : 1975 ARRIVES VIA: Walk-In INFORMANT: [Patient][friend] ED PROVIDER(S): [Brant Smith MD] CHIEF COMPLAINT: Illness HISTORY OF PRESENT ILLNESS: The patient is a 48-year-old female with stage IV metastatic breast cancer. Her chemotherapy treatment is currently on hold. The patient states that about 5 days ago, she developed a cough and some flulike symptoms. She has been vomiting persistently. Her mouth feels dry. Her stools are a bit loose. She has had hot flashes but no documented fever. She is not necessarily short of breath but she is very weak and exhausted. The patient's friend came to visit today and felt the patient was lethargic and dehydrated and too sick to be at home. She brought her to the hospital. Patient denies any recent sick contacts. She has no diagnosed lung disease. PMHx/PSHx/Social Hx: See Below PHYSICAL EXAM: GENERAL: Patient is in no acute distress. HEENT: No acute trauma, normocephalic atraumatic, mucous membranes dry, no nasal congestion. NECK: No stridor, no adenopathy, no meningismus, trachea is midline. LUNGS: There are some coarse breath sounds with a few scattered wheezes, no respiratory distress, breath sounds equal. HEART: Tachycardic, regular rhythm, no obvious murmur. ABDOMEN: Soft, nontender, no peritonitis. EXTREMITIES: No cyanosis, full range of motion of all the joints without pain or difficulty. NEUROLOGIC: Oriented x 3, no acute motor or sensory deficits, no focal weakness. SKIN: No jaundice, no diaphoresis. DIFFERENTIAL DIAGNOSIS: Viral illness, COVID-19, bronchitis, pneumonia, dehydration, electrolyte imbalance, UTI, among others. EMERGENCY DEPARTMENT PROCEDURES: MEDICAL DECISION MAKING: There is no leukocytosis or concerning anemia. There is a normal platelet count. Sodium slightly low at 132. Glucose was quite high at 481. Calcium was high at 12.2. Bilirubin and alk phos were both slightly elevated. RSV test was positive. Influenza and COVID test were negative. Chest x-ray did not show mediastinal widening, pneumonia or pneumothorax. ECG showed a sinus tachycardia, no obvious ischemia. On exam, the patient was tachycardic and appeared dehydrated. She had a few scattered wheezes. The patient received IV saline, 1 L. She received IV Zofran, IV insulin and a DuoNeb, she was given IV Tylenol. The patient's blood sugar has reduced. Repeat BSG showed a value in the 200s. Her heart rate has improved. The patient has metastatic breast cancer. She is dehydrated, wheezing, hyperglycemic and hypercalcemic. She will require a hospital stay for further hydration and care for her electrolyte imbalances. I do think the RSV infection was the underlying reason for all her issues today. I spoke with the patient and case management, the on-call hospitalist was consulted. Prior/Outside records/notes reviewed: Discharge summary note from 01/13/2023 discussing her admission for acute cholecystitis and UTI. ECG per my interpretation: Indication was weakness. The ECG shows a sinus tachycardia with a rate of 116. There is no ST elevation, no PVCs. The QTc is 428. Continuous Cardiac Monitoring per my interpretation: An order was placed for continuous cardiac monitoring. The monitor shows a rate of 104 with sinus tachycardia. Imaging/x-ray results per my interpretation: Chest x-ray shows some chronic change, no pneumonia, CHF or pneumothorax. Chronic Medical/Social conditions affecting care: Metastatic breast cancer, diabetes. Care/Management discussed with: Case management and the on-call hospitalist. Level of care consideration(s): After review of the information above and other included data: --I believe the patient requires escalation of care to admission Critical Care Note: I have personally spent 43 minutes of critical care time in the direct management of this patient. This includes bedside care, interpretation of diagnostic studies, and testing, discussion with consultants, patient, and family members, and other required patient management activities. This 43 minutes is in excess of all separately billable procedures. DISPOSITION: Admission Past Med/Surg History Medical History History of COVID-19 12/2020 + 12/2021 > residual taste dysfunction and feeling of need to clear throat Bilateral breast cancer Arthritis Liver spots "Mets from cancer" Depression with anxiety Peripheral neuropathy Heart palpitations R/t anxiety per patient Type II diabetes mellitus History of small bowel obstruction Hx bowel obstruction Hypothyroidism No current meds Breast cancer (11/12/15) Stage 4 (+ mets) Surgical History History of tubal ligation Port-A-Cath in place (04/30/22) Insertion Access Port left subclavian with Fluoroscopy(Left) - Chad Banuelos DO History of surgery Left Excisional Debridement of Buttock Wound Nausea and vomiting after administration of anesthetic agent "EXTREME" History of vascular access device PORT INSERTION/REMOVAL History of tooth extraction History of endometrial ablation History of bowel resection D/T BOWEL OBSTRUCTION History of lung surgery Left thoracoscopy with wedge resection left lower lobe Dr. Damico 03/29/2018 History of dilatation and curettage H/O hernia repair Hx of section x3 S/P lumpectomy, left breast LEFT ARM LIMB RESTRICTION Family History Mother , 77yo Diabetes Heart disease Aortic valve replacement Mitral valve calcifications UTI (urinary tract infection) Father , 62yo Diabetes Myocardial infarction Hypertension Stroke Brother Diabetes Myocardial infarction Cardiac stents Pacemaker Hypertension Sister No problems noted. Daughter No problems noted. Son No problems noted. Son No problems noted. 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 How many Children do You have: 3 Feels Safe at Home: Yes Safety Concerns: Feels Safe At This Time Diet: regular caffeine: No during the past year weight has: remained stable Assistive Devices: None Allergies Allergies Allergy/AdvReac Type Severity Reaction Status Date / Time No Known Allergies Allergy Verified 02/07/23 18:32 Home Meds Home Medications Medication Instructions Recorded Confirmed denosumab 120 mg/1.7 mL (70 mg/mL) 120 mg subcut .Q 3months 01/01/22 02/07/23 subcutaneous solution (Xgeva) blood-glucose sensor (Dexcom G6 12/17/22 02/07/23 Sensor device) blood-glucose transmitter (Dexcom 12/17/22 02/07/23 G6 Transmitter device) insulin aspart U-100 100 unit/mL 10 unit subcut AC 12/17/22 02/07/23 (3 mL) subcutaneous pen (Novolog FlexPen U-100 Insulin aspart) insulin glargine 100 unit/mL (3 40 unit subcut BID 12/17/22 02/07/23 mL) subcutaneous pen (Lantus Solostar U-100 Insulin) ondansetron HCl 8 mg tablet 8 mg PO Q12H PRN Nausea 12/17/22 02/07/23 pen needle, diabetic 32 gauge x 12/17/22 02/07/23" (BD Ultra-Fine Aletha Pen Needle) oxycodone 10 mg tablet 10 - 20 mg PO Q4 PRN Pain 01/07/23 02/07/23 prochlorperazine maleate 10 mg 10 mg PO Q6 PRN Nausea 02/07/23 02/07/23 tablet Previous Rx's Medication Instructions Recorded promethazine 25 mg rectal 25 mg MS Q8H PRN nausea and 01/26/23 suppository vomiting #12 ea promethazine 25 mg tablet 25 mg PO TID PRN nausea and 01/26/23 vomiting #20 tabs Results & Data (ED) Vital Signs Vital Signs - 24 hr 02/07/23 16:00 02/07/23 17:08 02/07/23 17:25 Temperature 36.2 C L Temperature Source Temporal Artery Scan Pulse Rate 115 H 104 H Pulse Rate [Finger] 124 H Respiratory Rate 19 18 Respiratory Effort / Characteristics Non-Labored Spontaneous Respiratory Depth Normal Blood Pressure 125/85 Blood Pressure [Right Arm] 109/98 Blood Pressure Mean 98 Blood Pressure Mean [Right Arm] 101 Blood Pressure Position [Right Arm] Sitting Pulse Oximetry 100 100 Oxygen Delivery Method Room Air Room Air Sepsis Recent Fever Within 48 Hours No Sepsis New/Unexplained Change in Mental Status N/A Sepsis Action Taken by Nursing No Action Required Home Medications Current Medication List: was personally reviewed by me Laboratory Data Attestation: I reviewed the patient's lab results. 02/07/23 16:34 02/07/23 16:34 Lab Results 02/07/23 02/07/23 Range/Units 16:03 16:34 WBC 9.72 (4.8-10.8) K/ul RBC 4.18 L (4.20-5.40) M/uL Hgb 12.8 (12.0-16.0) g/dl Hct 36.3 L (37.0-47.0) % MCV 86.8 (80.0-100.0) fL MCH 30.6 (25.0-34.0) pg MCHC 35.3 (32.0-36.0) g/dL RDW Std Deviation 43.7 (36.4-46.3) fL RDW Coeff of Joshua 13.9 (11.5-14.5) % Plt Count 338 (130-400) K/uL MPV 9.7 (9.4-12.4) fL Immature Gran % (Auto) 0.6 % Neut % (Auto) 81.3 % Lymph % (Auto) 13.0 % Morehouse % (Auto) 4.7 % Eos % (Auto) 0.1 % Baso % (Auto) 0.3 % Neut # (Auto) 7.90 H (1.40-6.50) K/uL Lymph # (Auto) 1.26 (1.20-3.40) K/uL Morehouse # (Auto) 0.46 (0.11-0.59) K/uL Eos # (Auto) 0.01 (0.00-0.50) K/uL Baso # (Auto) 0.03 (0.00-0.20) K/uL Immature Gran # (Auto) 0.06 (0.01-0.20) K/uL Sodium 132 L (136-145) mmol/L Potassium 4.0 (3.5-5.1) mmol/L Chloride 92 L (98-107) mmol/L Carbon Dioxide 27 (21-32) mmol/L Anion Gap 13 H (3-11) BUN 26 H (6-23) mg/dl Creatinine 0.96 (0.6-1.2) mg/dl Est Cr Clr Drug Dosing Not Reportable Est GFR ( Amer) 82.2 ml/min Est GFR (Non-Af Amer) 70.9 ml/min BUN/Creatinine Ratio 27.1 H (10-20) Glucose 481 H* (70-99(Fasting)) mg/dl Calcium 12.2 H* (8.6-10.3) mg/dl Magnesium 1.9 (1.7-2.4) mg/dl Total Bilirubin 1.1 H (0.2-1.0) mg/dl AST 10 L (13-39) U/L ALT 9 (7-52) U/L Alkaline Phosphatase 137 H (34-104) U/L Total Protein 8.3 (6.0-8.3) gm/dl Albumin 3.7 (3.4-5.0) gm/dl Globulin 4.6 H (2.5-4.0) gm/dl Albumin/Globulin Ratio 0.8 L (0.9-2) SARS-CoV-2 (PCR) NEGATIVE (Negative) Influenza Type A (PCR) Negative (Neg) Influenza Type B (PCR) Negative (Neg) RSV (RT-PCR) Positive A* (Neg) Administered Medications Enoxaparin Sodium (Enoxaparin Inj 40 Mg/0.4 Ml Syr) 40 mg SQ Q24H JESSE Stop: 03/09/23 22:14 Last Admin: 02/07/23 23:13 Dose: Not Given Documented By: BRENT Sodium Chloride (Nss) 1,000 mls @ 80 mls/hr IV .[id number] JESSE Stop: 03/09/23 22:14 Last Admin: 02/07/23 22:45 Dose: 80 mls/hr Documented By: BRENT Insulin Aspart (Insulin Aspart Per Unit Charge) 0 units SC ACHS JESSE Stop: 03/09/23 22:14 Last Admin: 02/07/23 23:12 Dose: 2 units Documented By: BRENT Co-signed By: BRUCE Insulin Glargine (Lantus Per Unit Charge) 10 units SQ BID JESSE Stop: 03/09/23 22:14 Last Admin: 02/07/23 23:12 Dose: 10 units Documented By: BRENT Co-signed By: BRUCE Discontinued Medications Albuterol (Albut/Ipratrop 3mg/0.5mg Neb 3 Ml Vial) 3 ml NEB NOW STA; Protocol Stop: 02/07/23 18:14 Last Admin: 02/07/23 18:33 Dose: 3 ml Documented By: EDEN Sodium Chloride (Nss) 1,000 mls @ 999 mls/hr IV .Q1H1M JESSE Stop: 02/07/23 20:15 Last Infusion: 02/07/23 20:18 Dose: Infused Documented By: Infusion: 02/07/23 20:07 Dose: 999 mls/hr Documented By: Infusion: 02/07/23 20:05 Dose: 999 mls/hr Documented By: Admin: 02/07/23 19:08 Dose: 999 mls/hr Documented By: Infusion: 02/07/23 19:08 Dose: Infused Documented By: Admin: 02/07/23 18:35 Dose: 999 mls/hr Documented By: EDEN Acetaminophen (Ofirmev) 1,000 mg in 100 mls @ 400 mls/hr IV NOW STA Stop: 02/07/23 18:27 Last Infusion: 02/07/23 19:08 Dose: Infused Documented By: Admin: 02/07/23 18:33 Dose: 400 mls/hr Documented By: EDEN Insulin Human Regular (Novolin-R Insulin Per Unit Charge) 10 units IV NOW STA Stop: 02/07/23 18:14 Last Admin: 02/07/23 18:34 Dose: 10 units Documented By: EDEN Co-signed By: LILLY Ondansetron HCl (Ondansetron Inj 2 Mg/Ml 2 Ml Vial) 4 mg IV NOW STA Stop: 02/07/23 18:14 Last Admin: 02/07/23 18:38 Dose: 4 mg Documented By: EDEN Imaging Data Radiologist's Impression: Chest X-Ray 02/07/23 16:05 XR chest 1V not portable HISTORY: 48 years-old Female illness acute shortness of breath COMPARISON: 12/27/2022 TECHNIQUE: AP view of the chest FINDINGS: Left subclavian Aiobxy-v-Lxli catheter is unchanged. Cardiac silhouette is upper limits of normal in size. Surgical suture material in the left midlung. No pneumothorax, pleural effusion or airspace consolidation. Osteoblastic skeletal metastasis redemonstrated. Chronic appearing right-sided rib fractures are nondisplaced. IMPRESSION: 1. No acute process in the chest. 2. Osteoblastic skeletal metastasis redemonstrated. ACT 112: Negative or not required by law. The above report was generated using voice recognition software. It may contain grammatical, syntax or spelling errors. Electronically signed by: Ruddy Chen M.D. 02/07/2023 4:42 PM Discharge Plan Visit Data Chief Complaint: Illness Stated Complaint: FLU LIKE SYMPTOMS, WEAKNESS ED Provider: Brant Smith Discharge Problem: Weakness, Breast cancer, Hypercalcemia, RSV (respiratory syncytial virus infection), Cough, Hyperglycemia Patient Disposition: Admitted As Inpatient Condition: Fair Discharge Instructions Interventions: ED Discharge Assessment Last Done: 02/07/23 20:08 Discharge Problem: Breast cancer Qualifiers: Breast location: unspecified site of breast Estrogen receptor status: u nspecified Patient sex: female Laterality: unspecified laterality Qualified Code(s): C50.919 - Malignant neoplasm of unspecified site of unspecified female breast Cough Qualifiers: Cough type: acute Qualified Code(s): R05.1 - Acute cough
[2023-02-07 18:27] LABS: Magnesium 1.9 mg/dl (1.7-2.4)
[2023-02-07] MEDS: SODIUM CHLORIDE 0.9% 1,000 ML IV SCH ×3 (18:35→22:45)
--- NOTE | 2023-02-07 18:58 | History & Physical Report ---
Date of Service February 07, 2023 Assessment & Plan (1) Hypercalcemia: (2) RSV (respiratory syncytial virus infection): (3) Nausea & vomiting: (4) Hyperglycemia: (5) Breast cancer: Plan Pt is a 47yoF with PMHx significant for metastatic breast cancer, diabetes, hypothyroidism admitted with hyperglycemia and hypercalcemia in the setting of an RSV infection. Hyperglycemia Glucose of 481 on admission ABG pending Pt with known uncontrolled DMII, last hgba1c of 9.2 in Nov Received IV Insulin 10U in the ED Started on Lantus 10mg BID, ISS carb ratio of 14, correction factor of 40, glucose goal 100-140 Glycemic consult placed Hypercalcemia Pt with progressive increase in Ca levels Ca 12.2 on admission Possibly acutely elevated to dehydration AM PTH ordered Nephrology consult placed for the AM Monitor with AM labs RSV Infection Pt positive for RSV infection Chest XRAY with no concern for pneumonia Received duoneb Rx in the ED, continue prn Continue with supportive treatments as tolerated Chronic Nausea and Vomiting Pt with N/V from around before States that she has been unable to keep anything down since then States that she cannot tolerate anything po Notes she makes a mess when things are drawn or given into her port Reglan ordered with home rectal phenergan, Prn IV zofran NPO for now, continue to monitor and advance diet as tolerated Continue with IV Fluids Hypothyroidism No longer on synthyroid AM TSH with reflex T4 ordered Metastatic breast cancer Pt with Stage IV metastatic breast cancer Mets to ribs with bilateral pathologic rib fractures noted on chest xray, stable Continue prn oxy if able to take PO Pt ordered IV dilaudid for mod-severe pain Not currently undergoing chemotherapy, consider revisiting palliative discussion Pt states she would like to be a DNR/DNI this admission Chronic Normocytic anemia Stable DVT prophylaxis: Lovenox SQ CODE STATUS: DNR/DNI Diet: Currently NPO, advance as tolerated Dispo: Med/Surg with tele History of Present Illness Chief Complaint: Cough Primary Care Provider: CONSTANTINO Reid Pt is a 47yoF with PMHx significant for metastatic breast cancer, diabetes, hypothyroidism admitted with hyperglycemia and hypercalcemia in the setting of an RSV infection. History obtained from pt and friend at the bedside. Pt states that for the past 5 days she has had a cough and has not been able to catch her breath at times. Notes that she is very tired and weak. Has chronic nausea and vomitting that she states got better after her cholecystectomy during the last admission but returned right before thanksgiving. States she has not been able to keep anything down since then. Notes copious amounts of emesis that makes "quite the mess" States she as stopped chemotherapy, follows with Dr Zapien from oncology. Has been using her home Lantus and Novolog. Would like to be a DNR/DNI this admission. Friend notes that she checks on her every few days and went to her home today and noted how exhausted she was and brought her to the ED. Allergies Allergy/AdvReac Type Severity Reaction Status Date / Time No Known Allergies Allergy Verified 02/07/23 18:32 Home Medications Medication Instructions Recorded Confirmed Type denosumab 120 mg/1.7 mL (70 mg/mL) 120 mg subcut .Q 3months 01/01/22 02/07/23 History subcutaneous solution (Xgeva) blood-glucose sensor (Dexcom G6 12/17/22 02/07/23 History Sensor device) blood-glucose transmitter (Dexcom 12/17/22 02/07/23 History G6 Transmitter device) insulin aspart U-100 100 unit/mL 10 unit subcut AC 12/17/22 02/07/23 History (3 mL) subcutaneous pen (Novolog FlexPen U-100 Insulin aspart) insulin glargine 100 unit/mL (3 40 unit subcut BID 12/17/22 02/07/23 History mL) subcutaneous pen (Lantus Solostar U-100 Insulin) ondansetron HCl 8 mg tablet 8 mg PO Q12H PRN Nausea 12/17/22 02/07/23 History pen needle, diabetic 32 gauge x 12/17/22 02/07/23 History /32" (BD Ultra-Fine Aletha Pen Needle) oxycodone 10 mg tablet 10 - 20 mg PO Q4 PRN Pain 01/07/23 02/07/23 History promethazine 25 mg rectal 25 mg [place] Q8H PRN nausea and 01/26/23 02/07/23 Rx suppository vomiting #12 ea promethazine 25 mg tablet 25 mg PO TID PRN nausea and 01/26/23 02/07/23 Rx vomiting #20 tabs prochlorperazine maleate 10 mg 10 mg PO Q6 PRN Nausea 02/07/23 02/07/23 History tablet Past Med/Surg History Medical History History of COVID-19 12/2020 + 12/2021 > residual taste dysfunction and feeling of need to clear throat Bilateral breast cancer Arthritis Liver spots "Mets from cancer" Depression with anxiety Peripheral neuropathy Heart palpitations R/t anxiety per patient Type II diabetes mellitus History of small bowel obstruction Hx bowel obstruction Hypothyroidism No current meds Breast cancer (11/12/15) Stage 4 (+ mets) Surgical History History of tubal ligation Port-A-Cath in place (04/30/22) Insertion Access Port left subclavian with Fluoroscopy(Left) - Chad Banuelos DO History of surgery Left Excisional Debridement of Buttock Wound Nausea and vomiting after administration of anesthetic agent "EXTREME" History of vascular access device PORT INSERTION/REMOVAL History of tooth extraction History of endometrial ablation History of bowel resection D/T BOWEL OBSTRUCTION History of lung surgery Left thoracoscopy with wedge resection left lower lobe Dr. Damico 03/29/2018 History of dilatation and curettage H/O hernia repair Hx of section x3 S/P lumpectomy, left breast LEFT ARM LIMB RESTRICTION Family History Mother , 77yo Diabetes Heart disease Aortic valve replacement Mitral valve calcifications UTI (urinary tract infection) Father , 62yo Diabetes Myocardial infarction Hypertension Stroke Brother Diabetes Myocardial infarction Cardiac stents Pacemaker Hypertension Sister No problems noted. Daughter No problems noted. Son No problems noted. Son No problems noted. 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 No acute distress Psych: Appropriate mood and affect, pt tired Neuro: No gross deficits while laying in bed HEENT: NC/AT Chest: Nontender to palpation. CV: RRR Resp: Breath sounds clear bilaterally, no increased effort of breathing. Abdomen: Soft, nontender, nondistended. Extremities: No edema in lower extremities bilaterally. Results & Data Results & Data Vital Signs (Past 12 Hours) Vital Signs Temp Pulse Pulse Resp BP BP Pulse Ox 02/07/23 17:25 104 H 02/07/23 17:08 124 H 18 109/98 100 02/07/23 16:00 36.2 C L 115 H 19 125/85 100 O2 Del Method 02/07/23 17:25 02/07/23 17:08 Room Air 02/07/23 16:00 Room Air Diagnostic Findings Chest X-Ray 02/07/23 16:05 XR chest 1V not portable HISTORY: 48 years-old Female illness acute shortness of breath COMPARISON: 12/27/2022 TECHNIQUE: AP view of the chest FINDINGS: Left subclavian Vcbryw-q-Rzwo catheter is unchanged. Cardiac silhouette is upper limits of normal in size. Surgical suture material in the left midlung. No pneumothorax, pleural effusion or airspace consolidation. Osteoblastic skeletal metastasis redemonstrated. Chronic appearing right-sided rib fractures are nondisplaced. IMPRESSION: 1. No acute process in the chest. 2. Osteoblastic skeletal metastasis redemonstrated. ACT 112: Negative or not required by law. The above report was generated using voice recognition software. It may contain grammatical, syntax or spelling errors. Electronically signed by: Ruddy Chen M.D. 02/07/2023 4:42 PM
[2023-02-07] MEDS ORDERED: HYDROmorphone INJ 0.5 MG/0.5 ML SYR IV PRN (22:15)
[2023-02-07] MEDS ORDERED: ALBUT/IPRATROP 3MG/0.5MG NEB 3 ML VIAL NEB PRN (22:15)
[2023-02-07] MEDS ORDERED: DEXTROSE 50% 50 ML SYRINGE IV PRN (22:15)
[2023-02-07] MEDS ORDERED: CARBOHYDRATES FOR HYPOGLYCEMIA PO PRN (22:15)
[2023-02-07] MEDS ORDERED: oxyCODONE HCL IR 5 MG TAB (IMMEDIATE RELEASE) PO PRN (22:15)
[2023-02-07] MEDS ORDERED: HYDROcodone/HOMATROPINE SYRUP 5MG/1.5MG 5ML UDP PO PRN (22:15)
[2023-02-07] MEDS ORDERED: GLUCOSE 10 TAB/TUBE PO PRN (22:15)
[2023-02-07] MEDS ORDERED: PHARMACY GLYCEMIC MGMT CONSULT PRN (22:15)
[2023-02-07] MEDS ORDERED: GLUCOSE 40% GEL 15 GM TUBE PO PRN (22:15)
[2023-02-07] MEDS ORDERED: PROMETHAZINE HCL 25 MG SUPP PR PRN (22:15)
[2023-02-07] MEDS ORDERED: METOCLOPRAMIDE HCL INJ 5 MG/ML 2 ML VIAL IV PRN (22:15)
[2023-02-07] MEDS ORDERED: GLUCAGON FOR INJ 1 MG VIAL SQ PRN (22:15)
[2023-02-07] MEDS: INSULIN ASPART PER UNIT CHARGE SC SCH (23:12)
[2023-02-07] MEDS: LANTUS PER UNIT CHARGE SQ SCH (23:12)
[2023-02-07] MEDS: ENOXAPARIN INJ 40 MG/0.4 ML SYR SQ SCH (23:13)
[2023-02-08] MEDS ORDERED: INSULIN ASPART PER UNIT CHARGE SC ONE (03:00)
[2023-02-08 03:43] LABS: Appearance Urine Turbid (Clear); Bacteria Urine Automated Negative (Negative); Bilirubin Urine Negative (Negative); Blood Urine 2+ (Negative); Color Urine Dark Yellow; Epithelial Cell Urine Auto >30 /lpf (0-5); Glucose Urine UA 3+ (Negative); Ketones Urine 1+ (Negative); Leukocyte Esterase Urine 1+ (Negative); Nitrite Urine Negative (Negative); Protein Urine 1+ (Negative); Specific Gravity Urine 1.032 (1.000-1.030); Urobilinogen Urine Negative (Negative); WBC Urine Automated >30 /hpf (0-5); pH Urine 5.5 (4.5-7.5)
[2023-02-08 07:39] LABS: Albumin Globulin Ratio 0.8 (0.9-2); Albumin Level 3.2 gm/dl (3.4-5.0); BUN Creatinine Ratio 27.3 (10-20); Bilirubin,Total 0.9 mg/dl (0.2-1.0); Calcium 11.2 mg/dl (8.6-10.3); Creatinine Clr Calc Pharmacy 112.4 ml/min; Est GFR (African American) 107.3 ml/min; Est GFR (Non-African American) 92.6 ml/min; Globulin 3.9 gm/dl (2.5-4.0); Magnesium 1.8 mg/dl (1.7-2.4); Phosphorus 3.5 mg/dl (2.5-4.9); Potassium 3.5 mmol/L (3.5-5.1); Total Protein 7.1 gm/dl (6.0-8.3)
[2023-02-08 07:52] LABS: Thyroid Stimulating Hormone 7.354 uIu/ml (0.300-4.500)
[2023-02-08 08:12] LABS: Basophils # (auto) 0.03 K/uL (0.00-0.20); Basophils % (auto) 0.3 %; Eosinophils # (auto) 0.08 K/uL (0.00-0.50); Eosinophils % (auto) 0.8 %; Hematocrit (blood only) 30.4 % (37.0-47.0); Hemoglobin 10.7 g/dl (12.0-16.0); Immature Granulocytes # (auto) 0.07 K/uL (0.01-0.20); Immature Granulocytes % (auto) 0.7 %; Lymphocytes # (auto) 1.25 K/uL (1.20-3.40); Lymphocytes % (auto) 12.4 %; Mean Corpuscular Hemoglobin 30.9 pg (25.0-34.0); Mean Corpuscular Hgb Conc 35.2 g/dL (32.0-36.0); Mean Corpuscular Volume 87.9 fL (80.0-100.0); Mean Platelet Volume 9.8 fL (9.4-12.4); Neutrophils # (auto) 7.82 K/uL (1.40-6.50); Neutrophils % (auto) 77.8 %; Platelet Count 268 K/uL (130-400); RDW Coefficient of Variation 14.3 % (11.5-14.5); RDW Standard Deviation 45.2 fL (36.4-46.3); Red Blood Count 3.46 M/uL (4.20-5.40); White Blood Count 10.05 K/ul (4.8-10.8)
[2023-02-08 08:27] LABS: T4 Free Thyroxine 0.69 ng/dl (0.61-1.60)
[2023-02-08 08:44] LABS: Estimated Average Glucose 220 mg/dl; Hemoglobin A1C 9.3 % (4.5-5.6)
[2023-02-08] MEDS: INSULIN ASPART PER UNIT CHARGE SC SCH ×4 (08:44→23:43)
[2023-02-08] MEDS: LANTUS PER UNIT CHARGE SQ SCH ×2 (08:44→23:45)
[2023-02-08] MEDS ORDERED: PHARMACY GLYCEMIC MGMT CONSULT PRN (08:49)
[2023-02-08] MEDS ORDERED: droNABinol 2.5 MG CAP PO PRN (08:51)
--- NOTE | 2023-02-08 08:55 | Hospitalist Progress Note ---
Date of Service February 08, 2023 Assessment & Plan (1) Hypercalcemia: (2) RSV (respiratory syncytial virus infection): (3) Nausea & vomiting: (4) Hyperglycemia: (5) Breast cancer: Plan Ms. Vega is a 47-year-old female past med history significant for metastatic breast cancer, diabetes ,hypothyroidism with ongoing nausea and vomiting, despite recent cholecystectomy admitted for multiple concerns. Patient found to be RSV positive, but denies SOB, mostly notes sinus congestion and purulent ear drainage for 3-4 days. Patient also noting poor intake since last discharge. Questionable overlap of gastroparesis given uncontrolled diabetes, as well as intolerance and ongoing symptoms s/p chemo treatments. Will trial marinol to see if this aids in symptoms, as well as schedule reglan with meals to promote motility. Given sinus congestions and purulent otorrhea, will start antibiotics for pseudomonal coverage given diabetes history--will transition to PO when able to tolerate. #Acute Otorrhea, c/f severe otitis media infection #Sinus Congestion Bilateral purulent otorrhea, no ear pain but reduced hearing 2/2 discharge Start ciprofloxacin given inability for PO regimen and need for pseudomonal coverage Start ciprodex BID to aid in drainage Pseudafed for sinus congestion Follow up for improvement and need for IP ENT if failure to improve #Hypercalcemia Ca 12.2 on admission Possibly acutely elevated to dehydration PTH 12.4 Nephrology consult ordered, will appreciate recs Appears to have improved with IVF to mild degree Trend ca levels #RSV Infection Pt positive for RSV infection Chest XRAY with no concern for pneumonia Received duoneb Rx in the ED, continue prn Continue with supportive treatments as tolerated #Persistent nausea and vomiting #S/p lap bart 01/11 likely component of gastroparesis v ongoing from prior treatments -Encourage Reglan use as promotility agent, improved qtc -Trial marinol for refractory of nausea/vomiting -Encourage trial of scheduled reglan before meals for promotility -GI consult (gall bladder with dysplasia, ?EGD warranted to any degree, partial outlet obstruction contributing?) #Uncontrolled Diabetes On 50U BID lantus at home Received IV Insulin 10U in the ED Continue on Lantus 10mg BID, ISS carb ratio of 14, correction factor of 40, glucose goal 100-140 Plan for glycemic consult given A1C 9.3% #Hypothyroidism Not taking synthroid, TSH 7; given ongoing/overlapping concerns will resume -Start 75mcg daily, recommend follow up #Metastatic breast cancer #Mets to ribs with bilateral pathologic rib fractures -Denies use of gabapentin, Flexeril or fentanyl at this time; relies on prn oxy -Resume Oxycodone prn q6h 10mg as needed, IV dialudid prn -No further systemic option per Dr. Newby other than radiation; seeking OP second opinion at [place] #Chronic Normocytic anemia -Stable, CTM #Unintentional Weight loss #Morbid obesity BMI 49.2 last admission, now to 37.8, Encourage lifestyle modifications and healthy habits while inpatient, but focus on managing comorbities and high protein intake DVT prophylaxis: Lovenox SQ CODE STATUS: DNR/DNI Diet: diet as tolerated Dispo: Med/Surg with tele Admission and Anticipated Discharge Date Admission Date: February 07, 2023 Subjective Reports feeling generally uneasy, this continued after her last chemo and only minorly improved since lap bart. She notes intake is generally poor and she is overall stressed and wants to go home. Reports 3-4 days of purulent drainage from ears and congestion, but outside of general malaise, denies fevers, chills, progressive cough, or other symptoms. Physical Exam Constitutional: WD/WN, vitals as above Respiratory: normal respiratory effort, lungs clear to auscultation Gastrointestinal (Abdomen): mild tenderness in epigastrium, generally uncomfortable Results & Data Results & Data Vital Signs (Past 12 Hours) Vital Signs Temp Pulse Pulse Pulse Resp BP Pulse Ox 02/08/23 07:50 36.6 C 100 H 17 114/79 95 02/08/23 07:39 02/08/23 03:13 36.9 C 102 H 16 114/77 97 02/07/23 23:39 99 H 02/07/23 22:27 02/07/23 22:27 36.6 C 105 H 22 139/79 97 02/07/23 21:01 100 H O2 Del Method 02/08/23 07:50 Room Air 02/08/23 07:39 Room Air 02/08/23 03:13 Room Air 02/07/23 23:39 02/07/23 22:27 Room Air 02/07/23 22:27 Room Air 02/07/23 21:01 Laboratory Results Short CBC 02/07/23 02/08/23 Range/Units 16:34 06:53 WBC 9.72 10.05 (4.8-10.8) K/ul Hgb 12.8 10.7 L (12.0-16.0) g/dl Hct 36.3 L 30.4 L (37.0-47.0) % Plt Count 338 268 (130-400) K/uL BMP 02/07/23 02/08/23 16:34 06:53 Sodium 132 L 137 Potassium 4.0 3.5 Chloride 92 L 102 Carbon Dioxide 27 29 BUN 26 H 21 Creatinine 0.96 0.77 Glucose 481 H* 219 H Calcium 12.2 H* 11.2 H Liver Function 02/07/23 02/08/23 Range/Units 16:34 06:53 Total Bilirubin 1.1 H 0.9 (0.2-1.0) mg/dl AST 10 L 10 L (13-39) U/L ALT 9 7 (7-52) U/L Alkaline Phosphatase 137 H 114 H (34-104) U/L Albumin 3.7 3.2 L (3.4-5.0) gm/dl Urine 02/08/23 Range/Units 03:28 Urine Color Dark Yellow Urine Appearance Turbid A (Clear) Urine pH 5.5 (4.5-7.5) Ur Specific Minto 1.032 H (1.000-1.030) Urine Protein 1+ H (Negative) Urine Glucose (UA) 3+ H (Negative) Medications Administered Home Medications Medication Instructions Recorded Confirmed Last Taken denosumab 120 mg/1.7 mL (70 mg/mL) 120 mg subcut .Q 3months 01/01/22 02/07/23 03/10/22 11:00 subcutaneous solution (Xgeva) blood-glucose sensor (Dexcom G6 12/17/22 02/07/23 Unknown Sensor device) blood-glucose transmitter (Dexcom 12/17/22 02/07/23 Unknown G6 Transmitter device) insulin aspart U-100 100 unit/mL 10 unit subcut AC 12/17/22 02/07/23 Unknown (3 mL) subcutaneous pen (Novolog FlexPen U-100 Insulin aspart) insulin glargine 100 unit/mL (3 40 unit subcut BID 12/17/22 02/07/23 Unknown mL) subcutaneous pen (Lantus Solostar U-100 Insulin) ondansetron HCl 8 mg tablet 8 mg PO Q12H PRN Nausea 12/17/22 02/07/23 Unknown pen needle, diabetic 32 gauge x 12/17/22 02/07/23 Unknown " (BD Ultra-Fine Aletha Pen Needle) oxycodone 10 mg tablet 10 - 20 mg PO Q4 PRN Pain 01/07/23 02/07/23 Unknown promethazine 25 mg rectal 25 mg NH Q8H PRN nausea and 01/26/23 02/07/23 Unknown suppository vomiting #12 ea promethazine 25 mg tablet 25 mg PO TID PRN nausea and 01/26/23 02/07/23 Unknown vomiting #20 tabs prochlorperazine maleate 10 mg 10 mg PO Q6 PRN Nausea 02/07/23 02/07/23 Unknown tablet Active Medications Generic Name Dose Route Start Last Admin Trade Name Freq PRN Reason Stop Dose Admin Enoxaparin Sodium 40 mg 02/07/23 22:15 02/07/23 23:13 Enoxaparin Inj 40 Mg/0.4 Ml Syr SQ 03/09/23 22:14 Not Given Q24H JESSE Sodium Chloride 1,000 mls @ 80 mls/hr 02/07/23 22:15 02/08/23 11:53 Nss IV 03/09/23 22:14 80 mls/hr .[id number] JESSE Administration Insulin Aspart 0 units 02/07/23 22:15 02/08/23 08:44 Insulin Aspart Per Unit Charge SC 03/09/23 22:14 2 units ACHS JESSE Administration Insulin Glargine 10 units 02/07/23 22:15 02/08/23 08:44 Lantus Per Unit Charge SQ 03/09/23 22:14 10 units BID JESSE Administration
--- NOTE | 2023-02-08 11:06 | Nephrology Consultation ---
Date of Consultation February 08, 2023 Assessment & Plan (1) Hypercalcemia: moderate and improving non PTH mediated hypercalcemia. suspect this is multifactorial >> breast cancer w/ known bone mets, dehydration in setting of hyperglycemia as well as possibly her relatively sedentary living past 6-7 weeks -for labs tomorrow AM will order vitamin D panel; may take a week or so to post -continue NS at 80 ML hourly -daily bmp -would not consider bisphosphonate at this time since presenting/peak calcium level mild-moderately elevated > risk here w/ such medications for symptomatic hypocalcemia History of Present Illness Reason for Consultation: hypercalcemia Requesting Physician: Dr Meyers Attending Physician: Ambreen Magallanes MD History of Present Illness 48 y/o F whom I'm asked to see for hypercalcemia was admitted yesterday w/ RSV, hyperglycemia, and presenting calcium of 12.2 in the setting of uncontrolled N/V ongoing for 3 wks prior to admission. PMH includes Stage IV breast cancer not currently on chemotherapy, hypothyroid, DM. She received 2L NS and was started on NS at 80 ML/HR. Seen on rounds late this AM. Pt stated her N was reasonably controlled at that time I saw her. She tells me she stopped chemotherapy for her CA d/t nausea and vomiting. She has had chronic emesis since before . She is w/o relief on this even since her cholecystectomy last month. denies voiding concerns. she did tell me she felt dizzy and light headed w/ easy fatigability. denied constipation or abdominal pain and no exertional dyspnea. No joint pain. This AM her calcium improved to 11.2; PTH came back at 12. ionized calcium remains slightly elevated but was improving as well. Allergies Allergy/AdvReac Type Severity Reaction Status Date / Time No Known Allergies Allergy Verified 02/07/23 18:32 Home Medications Medication Instructions Recorded Confirmed Type denosumab 120 mg/1.7 mL (70 mg/mL) 120 mg subcut .Q 3months 01/01/22 02/07/23 History subcutaneous solution (Xgeva) blood-glucose sensor (Dexcom G6 12/17/22 02/07/23 History Sensor device) blood-glucose transmitter (Dexcom 12/17/22 02/07/23 History G6 Transmitter device) insulin aspart U-100 100 unit/mL 10 unit subcut AC 12/17/22 02/07/23 History (3 mL) subcutaneous pen (Novolog FlexPen U-100 Insulin aspart) insulin glargine 100 unit/mL (3 40 unit subcut BID 12/17/22 02/07/23 History mL) subcutaneous pen (Lantus Solostar U-100 Insulin) ondansetron HCl 8 mg tablet 8 mg PO Q12H PRN Nausea 12/17/22 02/07/23 History pen needle, diabetic 32 gauge x 12/17/22 02/07/23 History 5/32" (BD Ultra-Fine Aletha Pen Needle) oxycodone 10 mg tablet 10 - 20 mg PO Q4 PRN Pain 01/07/23 02/07/23 History promethazine 25 mg rectal 25 mg NM Q8H PRN nausea and 01/26/23 02/07/23 Rx suppository vomiting #12 ea promethazine 25 mg tablet 25 mg PO TID PRN nausea and 01/26/23 02/07/23 Rx vomiting #20 tabs prochlorperazine maleate 10 mg 10 mg PO Q6 PRN Nausea 02/07/23 02/07/23 History tablet Patient History Medical History History of COVID-19 12/2020 + 12/2021 > residual taste dysfunction and feeling of need to clear throat Bilateral breast cancer Arthritis Liver spots "Mets from cancer" Depression with anxiety Peripheral neuropathy Heart palpitations R/t anxiety per patient Type II diabetes mellitus History of small bowel obstruction Hx bowel obstruction Hypothyroidism No current meds Breast cancer (11/12/15) Stage 4 (+ mets) Surgical History History of tubal ligation Port-A-Cath in place (04/30/22) Insertion Access Port left subclavian with Fluoroscopy(Left) - Chad Banuelos DO History of surgery Left Excisional Debridement of Buttock Wound Nausea and vomiting after administration of anesthetic agent "EXTREME" History of vascular access device PORT INSERTION/REMOVAL History of tooth extraction History of endometrial ablation History of bowel resection D/T BOWEL OBSTRUCTION History of lung surgery Left thoracoscopy with wedge resection left lower lobe Dr. Damico 03/29/2018 History of dilatation and curettage H/O hernia repair Hx of section x3 S/P lumpectomy, left breast LEFT ARM LIMB RESTRICTION Family History Mother , 77yo Diabetes Heart disease Aortic valve replacement Mitral valve calcifications UTI (urinary tract infection) Father , 62yo Diabetes Myocardial infarction Hypertension Stroke Brother Diabetes Myocardial infarction Cardiac stents Pacemaker Hypertension Sister No problems noted. Daughter No problems noted. Son No problems noted. Son No problems noted. 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 How many Children do You have: 3 Feels Safe at Home: Yes Safety Concerns: Feels Safe At This Time Diet: regular caffeine: No during the past year weight has: remained stable Assistive Devices: None Review of Systems 2 Review of Systems: All systems reviewed & are unremarkable except as noted in HPI & below Physical Exam 2 Constitutional: well developed and well nourished Eyes: EOM intact bilaterally ENMT: Ears: no external ear abnormality Nose: no external nose abnormality Mouth: + dry oral mucous membranes Neck: no nuchal rigidity Respiratory: normal respiratory effort Auscultation: + diminished lung sounds Cardiovascular: Rate/Rhythm: regular rate and regular rhythm Extremities: n o edema Gastrointestinal (Abdomen): Inspection/Auscultation: normal bowel sounds P ercussion/Palpation: abdomen soft; abdomen nontender Musculoskeletal: Extremities: strength 5/5 throughout Skin: no rashes, warm and dry Neurologic: nicole, fluent speech, no tremor Psychiatric: A+Ox3, euthymic affect Results & Data Vital Signs (Past 12 Hours) Vital Signs Temp Pulse Pulse Pulse Resp BP Pulse Ox 02/08/23 09:29 103 H 02/08/23 07:50 36.6 C 100 H 17 114/79 95 02/08/23 07:39 02/08/23 03:13 36.9 C 102 H 16 114/77 97 02/07/23 23:39 99 H O2 Del Method 02/08/23 09:29 02/08/23 07:50 Room Air 02/08/23 07:39 Room Air 02/08/23 03:13 Room Air 02/07/23 23:39 Laboratory Results 02/08/23 06:53 02/08/23 06:53
[2023-02-08] MEDS: SODIUM CHLORIDE 0.9% 1,000 ML IV SCH (11:53)
[2023-02-08] MEDS: CIPROFLOXACIN / D5W 400 MG/200 ML BAG IV SCH (12:43)
[2023-02-08] MEDS: PSEUDOEPHEDRINE HCL 30 MG TAB PO SCH ×2 (12:43→22:08)
--- NOTE | 2023-02-08 12:46 | Pharmacy Report ---
Pharmacy Glycemic Short Note 2 - Date of Service February 08, 2023 - Glycemic Short BSG Results (Last 24 hours): 02/07/23 02/07/23 02/07/23 16:34 19:37 22:46 Glucose 481 H* POC Glucose 223 H 161 H 02/08/23 02/08/23 02/08/23 03:30 06:53 12:07 Glucose 219 H POC Glucose 168 H 314 H* 02/08/23 02/08/23 12:08 12:09 Glucose POC Glucose 287 H 293 H OUTPATIENT ANTIDIABETIC REGIMEN: * Novolog 10 units AC * Lantus 40 units BID * HbA1C = 9.3% (02/08/23) ASSESSMENT: * Ms Vega is a 48 y/o F with a PMH of T2DM who presents with N/V + RSV. * Patient's BSGs initially elevated (>400 mg/dL) in ER for which she received 10 units IV. * Today, fasting is 168 mg/dL. Patient initially NPO but switched to diet with lunch. Lunch BSG was 293 mg/dL. * Lantus 10 units BID started overnight. Give extra 10 units with lunch. During previous hospitalization, patient tolerated Lantus 20 units BID but was eventually switched to 20 units nightly. Will start scale for this evening. * Novolog weight-based stress of 2 for now. PLAN FOR INPATIENT GLYCEMIC CONTROL: * Basal insulin * Lantus 20 units SQ BID (10 units if BSG < 160 mg/dL) * Bolus insulin * NovoLog per scale ACHS or Q6hrs while NPO * Goal Range: Low 110 mg/dL - High 140 mg/dL * Correction Factor: 20 mg/dL/unit * Nutritional / Prandial insulin per carb ratio of 1 unit per 6 grams CHO consumed
[2023-02-08] MEDS ORDERED: LANTUS PER UNIT CHARGE SQ ONE (13:00)
--- NOTE | 2023-02-08 13:13 | Communication Note ---
Date of Service: February 08, 2023 GI was consulted for nausea. Chart was reviewed. 48 year old female with history of metastatic breast CA (chemotherapy on hold, palliative radiation) poorly controlled DM, hypothyroidism, obesity and others below who is admitted w/ flu- like symptoms, cough - GI was consulted for nausea/vomiting. Discussed with attending, discussed with hospitalist. Given positive RSV testing, no acute indication for inpatient EGD evaluation, we recommend expediting an OP EGD and GES. Recommend scheduled antiemetics PRN. KUB 2022: No evidence for a bowel obstruction. Unremarkable amount of stool.Redemonstration of sclerotic metastases. ABD US 2022: Thickening of the gallbladder is seen with positive sonographic Cruz's sign compatible with diagnosis of acute cholecystitis. There is the appearance of discrete stones in additional to sludge seen on prior CT. HIDA 2022: Normal gallbladder ejection fraction is greater than 33%. CTAP 2022: There is enlargement and wall thickening of the gallbladder with pericholecystic fluid concerning for acute cholecystitis. Gallbladder sludge is seen. Otherwise no acute abnormalities are seen. Thank you for allowing us to participate in the care of this patient. Please call with any acute changes, questions or concerns. Please see addendum below with additional recommendation from my supervising physician.
[2023-02-08] MEDS: CIPRO 0.3%/DEXAMETHASONE 0.1% OTIC SUSP 7.5ML OT SCH ×2 (13:39→22:11)
--- NOTE | 2023-02-08 15:13 | Electrocardiogram Report ---
Test Reason : Blood Pressure : / mmHG Vent. Rate : 116 BPM Atrial Rate : 116 BPM P-R Int : 118 ms QRS Dur : 076 ms QT Int : 308 ms P-R-T Axes : 012 -19 064 degrees QTc Int : 428 ms Sinus tachycardia Otherwise normal ECG When compared with ECG of 07-JAN-2023 16:17, Premature atrial complexes are no longer Present Confirmed by Tha Zapata ([id number]) on 02/08/2023 3:13:44 PM Referred By: REFERRED SELF Confirmed By:Tha Zapata
[2023-02-08] MEDS: METOCLOPRAMIDE HCL 5 MG TABLET PO SCH ×2 (17:26→22:10)
[2023-02-08] MEDS: ENOXAPARIN INJ 40 MG/0.4 ML SYR SQ SCH (22:09)
[2023-02-09] MEDS: SODIUM CHLORIDE 0.9% 1,000 ML IV SCH (00:09)
[2023-02-09] MEDS: CIPROFLOXACIN / D5W 400 MG/200 ML BAG IV SCH ×2 (00:10→12:06)
[2023-02-09] MEDS ORDERED: HEPARIN 100 UNIT/ML 5ML FLUSH FLUSH PRN (00:28)
[2023-02-09] MEDS: PSEUDOEPHEDRINE HCL 30 MG TAB PO SCH ×3 (07:01→20:57)
[2023-02-09] MEDS: LEVOTHYROXINE SODIUM 75 MCG TABLET PO SCH (07:01)
--- NOTE | 2023-02-09 07:41 | Hospitalist Progress Note ---
Date of Service February 09, 2023 Assessment & Plan (1) Hypercalcemia: (2) RSV (respiratory syncytial virus infection): (3) Nausea & vomiting: (4) Hyperglycemia: (5) Breast cancer: Plan Ms. Vega is a 47-year-old female past med history significant for metastatic breast cancer, diabetes ,hypothyroidism with ongoing nausea and vomiting, despite recent cholecystectomy admitted for multiple concerns. Patient found to be RSV positive, but denies SOB, mostly notes sinus congestion and purulent ear drainage for 3-4 days. Patient also noting poor intake since last discharge. Questionable overlap of gastroparesis given uncontrolled diabetes, as well as intolerance and ongoing symptoms s/p chemo treatments. Will trial marinol to see if this aids in symptoms, as well as schedule reglan with meals to promote motility. Given sinus congestions and purulent otorrhea, will start antibiotics for pseudomonal coverage given diabetes history--will transition to PO when able to tolerate. #Acute Otorrhea, c/f severe otitis media infection #Sinus Congestion Bilateral purulent otorrhea, no ear pain but reduced hearing 2/2 discharge Start ciprofloxacin given inability for PO regimen and need for pseudomonal coverage, transition to PO if able Start ciprodex BID to aid in drainage, improving Pseudafed for sinus congestion, encouraging 30mg TID as able to tolerate PO to aid in symptoms Follow up for improvement and need for IP ENT if failure to improve #Hypercalcemia *slow down trend #Severe vit D deficiency Ca 12.2 on admission Possibly acutely elevated to dehydration, malignancy ongoing, sedentary PTH 12.4, Vit D <7.0 Nephrology consult following, will review daily recommendations as completed #RSV Infection Pt positive for RSV infection Chest XRAY with no concern for pneumonia Received duoneb Rx in the ED, continue prn Continue with supportive treatments as tolerated #Persistent nausea and vomiting #S/p lap bart 01/11 likely component of gastroparesis v ongoing from prior treatments -Encourage Reglan use as promotility agent, improved qtc -Trial marinol for refractory of nausea/vomiting -COntinue to encourage trial of scheduled reglan before meals for promotility -GI consult (gall bladder with dysplasia, ?EGD warranted to any degree, partial outlet obstruction contributing?) #Uncontrolled Diabetes On 50U BID lantus at home Received IV Insulin 10U in the ED Continue on Lantus 10mg BID, ISS carb ratio of 14, correction factor of 40, glucose goal 100-140 Glycemic consult given A1C 9.3% Ensure diabetes education prior to dispo #Hypothyroidism Not taking synthroid, TSH 7; given ongoing/overlapping concerns will resume -Start 75mcg daily, patient agreeable to starting given overlapping symptoms of hypothyroid that may contribute to overall presentation #Metastatic breast cancer #Mets to ribs with bilateral pathologic rib fractures -Denies use of gabapentin, Flexeril or fentanyl at this time; relies on prn oxy -Resume Oxycodone prn q6h 10mg as needed, IV dialudid prn -No further systemic option per Dr. Newby other than radiation; seeking OP [place] opinion at [place] #Chronic Normocytic anemia -Stable, CTM #Unintentional Weight loss #Morbid obesity BMI 49.2 last admission, now to 37.8, Encourage lifestyle modifications and healthy habits while inpatient, but focus on managing comorbities and high protein intake DVT prophylaxis: Lovenox SQ CODE STATUS: DNR/DNI Diet: diet as tolerated Dispo: Med/Surg with tele Admission and Anticipated Discharge Date Admission Date: February 07, 2023 Subjective Reports feeling some what improved since yesterday Still cautious with medications Reports not understanding her thyroid status being told she "was fine before" and thought she didnt need it any longer Agreeable for another day of IV antibiotics and lab follow up, as well as ability to transition to PO course of cipro continent on discharge Physical Exam Constitutional: WD/WN, vitals as above ENMT: reduced purulence from bilateral ear canal, no tenderness with pulling of pinea Cardiovascular: RRR, no murmur, no edema Gastrointestinal (Abdomen): normal bowel sounds, soft, nontender, no hepatosplenomegaly Results & Data Results & Data Vital Signs (Past 12 Hours) Vital Signs Temp Pulse Pulse Resp BP Pulse Ox O2 Del Method 02/09/23 07:38 37 C 96 H 18 141/82 H 91 Room Air 02/09/23 05:35 98 H 02/08/23 22:48 36.9 C 134 H 16 148/90 H 95 Room Air 02/08/23 20:29 36.4 C L 99 H 18 98/65 L 96 Room Air Laboratory Results Short CBC 02/09/23 Range/Units 10:14 WBC 6.77 (4.8-10.8) K/ul Hgb 10.6 L (12.0-16.0) g/dl Hct 30.4 L (37.0-47.0) % Plt Count 257 (130-400) K/uL BMP 02/09/23 10:14 Sodium 135 L Potassium 3.2 L Chloride 100 Carbon Dioxide 28 BUN 14 Creatinine 0.75 Glucose 268 H Calcium 10.9 H Medications Administered Home Medications Medication Instructions Recorded Confirmed Last Taken denosumab 120 mg/1.7 mL (70 mg/mL) 120 mg subcut .Q 3months 01/01/22 02/07/23 03/10/22 11:00 subcutaneous solution (Xgeva) blood-glucose sensor (Dexcom G6 12/17/22 02/07/23 Unknown Sensor device) blood-glucose transmitter (Dexcom 12/17/22 02/07/23 Unknown G6 Transmitter device) insulin aspart U-100 100 unit/mL 10 unit subcut AC 12/17/22 02/07/23 Unknown (3 mL) subcutaneous pen (Novolog FlexPen U-100 Insulin aspart) insulin glargine 100 unit/mL (3 40 unit subcut BID 12/17/22 02/07/23 Unknown mL) subcutaneous pen (Lantus Solostar U-100 Insulin) ondansetron HCl 8 mg tablet 8 mg PO Q12H PRN Nausea 12/17/22 02/07/23 Unknown pen needle, diabetic 32 gauge x 12/17/22 02/07/23 Unknown 5/32" (BD Ultra-Fine Aletha Pen Needle) oxycodone 10 mg tablet 10 - 20 mg PO Q4 PRN Pain 01/07/23 02/07/23 Unknown promethazine 25 mg rectal 25 mg HI Q8H PRN nausea and 01/26/23 02/07/23 Unknown suppository vomiting #12 ea promethazine 25 mg tablet 25 mg PO TID PRN nausea and 01/26/23 02/07/23 Unknown vomiting #20 tabs prochlorperazine maleate 10 mg 10 mg PO Q6 PRN Nausea 02/07/23 02/07/23 Unknown tablet Active Medications Generic Name Dose Route Start Last Admin Trade Name Freq PRN Reason Stop Dose Admin Ciprofloxacin/Dexamethasone 4 drops 02/08/23 12:30 02/09/23 08:39 Cipro 0.3%/Dexamethasone 0.1% Otic Susp 7.5ml OT 02/15/23 12:29 4 drops BID JESSE Administration Enoxaparin Sodium 40 mg 02/07/23 22:15 02/08/23 22:09 Enoxaparin Inj 40 Mg/0.4 Ml Syr SQ 03/09/23 22:14 40 mg Q24H JESSE Administration Ciprofloxacin 400 mg in 200 mls @ 100 mls/hr 02/08/23 12:00 02/09/23 02:13 Cipro / D5w IV 02/18/23 11:59 Infused Q12H JESSE Infusion Protocol Insulin Aspart 0 units 02/07/23 22:15 02/09/23 08:52 Insulin Aspart Per Unit Charge SC 03/09/23 22:14 9 units ACHS JESSE Administration Insulin Glargine 0 units 02/08/23 21:00 02/09/23 08:53 Lantus Per Unit Charge SQ 03/10/23 20:59 20 units BID JESSE Administration Protocol Levothyroxine Sodium 75 mcg 02/09/23 06:30 02/09/23 07:01 Levothyroxine Sodium 75 Mcg Tablet PO 03/11/23 06:29 Not Given DAILYBB JESSE Metoclopramide HCl 5 mg 02/08/23 16:30 02/09/23 08:39 Metoclopramide Hcl 5 Mg Tablet PO 03/10/23 16:29 5 mg ACHS JESSE Administration Pseudoephedrine HCl 60 mg 02/08/23 12:00 02/09/23 07:01 Pseudoephedrine Hcl 30 Mg Tab PO 03/10/23 11:59 Not Given Q8H JESSE
[2023-02-09] MEDS: CIPRO 0.3%/DEXAMETHASONE 0.1% OTIC SUSP 7.5ML OT SCH ×2 (08:39→20:57)
[2023-02-09] MEDS: METOCLOPRAMIDE HCL 5 MG TABLET PO SCH ×4 (08:39→20:58)
[2023-02-09] MEDS: INSULIN ASPART PER UNIT CHARGE SC SCH ×4 (08:52→20:56)
[2023-02-09] MEDS: LANTUS PER UNIT CHARGE SQ SCH ×2 (08:53→20:57)
[2023-02-09 10:35] LABS: Hematocrit (blood only) 30.4 % (37.0-47.0); Hemoglobin 10.6 g/dl (12.0-16.0); Mean Corpuscular Hemoglobin 30.7 pg (25.0-34.0); Mean Corpuscular Hgb Conc 34.9 g/dL (32.0-36.0); Mean Corpuscular Volume 88.1 fL (80.0-100.0); Mean Platelet Volume 9.4 fL (9.4-12.4); Platelet Count 257 K/uL (130-400); RDW Coefficient of Variation 13.8 % (11.5-14.5); RDW Standard Deviation 44.2 fL (36.4-46.3); Red Blood Count 3.45 M/uL (4.20-5.40); White Blood Count 6.77 K/ul (4.8-10.8)
[2023-02-09 11:00] LABS: BUN Creatinine Ratio 18.7 (10-20); Calcium 10.9 mg/dl (8.6-10.3); Creatinine Clr Calc Pharmacy 115.6 ml/min; Est GFR (African American) 110.8 ml/min; Est GFR (Non-African American) 95.6 ml/min; Magnesium 1.5 mg/dl (1.7-2.4); Phosphorus 2.7 mg/dl (2.5-4.9); Potassium 3.2 mmol/L (3.5-5.1)
--- NOTE | 2023-02-09 11:19 | Nephrology Progress Note ---
Date of Service February 09, 2023 Assessment & Plan (1) Hypercalcemia: Plan: moderate and improving non PTH mediated hypercalcemia. suspect this is multifactorial >> breast cancer w/ known bone mets, dehydration in setting of hyperglycemia as well as possibly her relatively sedentary living past 6-7 weeks -f/u pending vitamin D panel; may take a week or so to post -continue NS at 80 ML hourly >> added 40 mEq/L K to this given lower K and risk of N w/ po >> since taking po will stop ivf after this bag -daily bmp -would not consider bisphosphonate at this time since presenting/peak calcium level only mild-moderately elevated > risk here w/ such medications for symptomatic hypocalcemia -anticipate stopping IVF next 1-2 days depending on nausea control/po intake Will sign off Care coordinated w/ Dr Soan MEZA D/C RECOMMENDATIONS -check bmp at PCP f/u w/in one week of hospital d/c -hypercalcemia likely to recur if nausea/vomiting and blood sugars remain uncontrolled and defer to other OP teams on that -nephro f/u prn Admission and Anticipated Discharge Date Admission Date: February 07, 2023 Subjective seen afternoon rounds; so far today no emesis; feeling somewhat better. still cough/sore throat, phlegm. no pain. tolerating po Review of Systems 2 Review of Systems: All systems reviewed & are unremarkable except as noted in Subjective Physical Exam 2 Constitutional: well developed and well nourished Eyes: EOM intact bilaterally ENMT: Ears: no external ear abnormality Nose: no external nose abnormality Mouth: + dry oral mucous membranes Neck: no nuchal rigidity Respiratory: normal respiratory effort Auscultation: + diminished lung sounds Cardiovascular: Rate/Rhythm: regular rate and regular rhythm Extremities: n o edema Gastrointestinal (Abdomen): Inspection/Auscultation: normal bowel sounds P ercussion/Palpation: abdomen soft; abdomen nontender Musculoskeletal: Extremities: strength 5/5 throughout Skin: no rashes, warm and dry Psychiatric: A+Ox3, euthymic affect Results & Data Vital Signs (Past 12 Hours) Vital Signs Temp Pulse Pulse Resp BP Pulse Ox O2 Del Method 02/09/23 09:12 88 02/09/23 07:39 Room Air 02/09/23 07:38 37 C 96 H 18 141/82 H 91 Room Air 02/09/23 05:35 98 H Laboratory Results 02/09/23 10:14 02/09/23 10:14
[2023-02-09] MEDS: POTASSIUM CHLORIDE 40 MEQ in SODIUM CHLORIDE 0.9% 1,000 ML IV SCH (11:51)
[2023-02-09] MEDS: MAGNESIUM SULFATE / D5W 1 GM/100 ML BAG IV SCH ×2 (12:00→14:15)
--- NOTE | 2023-02-09 12:26 | Pharmacy Report ---
Pharmacy Glycemic Short Note 2 - Date of Service February 09, 2023 - Glycemic Short BSG Results (Last 24 hours): 02/08/23 02/08/23 02/09/23 17:51 20:28 08:13 Glucose POC Glucose 141 H 141 H 212 H 02/09/23 02/09/23 10:14 12:05 Glucose 268 H POC Glucose 247 H OUTPATIENT ANTIDIABETIC REGIMEN: * Novolog 10 units AC * Lantus 40 units BID * HbA1C = 9.3% (02/08/23) ASSESSMENT: 02/09/23 * BSGs yesterday were [phone] mg/dL. patient received 42 units of insulin (20 units of basal and 22 units of bolus). * Fasting today was 212 but patient refused HS basal. Continue 20 units BID. * Continue Novolog as patient's BSGs controlled after extra basal. BACKGROUND * Ms Vega is a 48 y/o F with a PMH of T2DM who presents with N/V + RSV. * Patient's BSGs initially elevated (>400 mg/dL) in ER for which she received 10 units IV. * Today, fasting is 168 mg/dL. Patient initially NPO but switched to diet with lunch. Lunch BSG was 293 mg/dL. * Lantus 10 units BID started overnight. Give extra 10 units with lunch. During previous hospitalization, patient tolerated Lantus 20 units BID but was eventually switched to 20 units nightly. Will start scale for this evening. * Novolog weight-based stress of 2 for now. PLAN FOR INPATIENT GLYCEMIC CONTROL: * Basal insulin * Lantus 20 units SQ BID (10 units if BSG < 160 mg/dL) * Bolus insulin * NovoLog per scale ACHS or Q6hrs while NPO * Goal Range: Low 110 mg/dL - High 140 mg/dL * Correction Factor: 20 mg/dL/unit * Nutritional / Prandial insulin per carb ratio of 1 unit per 6 grams CHO consumed
[2023-02-09] MEDS: ENOXAPARIN INJ 40 MG/0.4 ML SYR SQ SCH (20:56)
[2023-02-10] MEDS: POTASSIUM CHLORIDE 40 MEQ in SODIUM CHLORIDE 0.9% 1,000 ML IV SCH (00:07)
[2023-02-10] MEDS: CIPROFLOXACIN / D5W 400 MG/200 ML BAG IV SCH ×2 (00:07→12:33)
[2023-02-10] MEDS: PSEUDOEPHEDRINE HCL 30 MG TAB PO SCH ×2 (03:07→12:37)
[2023-02-10] MEDS: LEVOTHYROXINE SODIUM 75 MCG TABLET PO SCH (04:41)
[2023-02-10 05:57] LABS: Hemoglobin 9.8 g/dl (12.0-16.0); Mean Corpuscular Hemoglobin 30.2 pg (25.0-34.0); Mean Corpuscular Hgb Conc 33.8 g/dL (32.0-36.0); Mean Corpuscular Volume 89.2 fL (80.0-100.0); Mean Platelet Volume 9.3 fL (9.4-12.4); Platelet Count 242 K/uL (130-400); RDW Standard Deviation 45.1 fL (36.4-46.3); Red Blood Count 3.25 M/uL (4.20-5.40); White Blood Count 6.13 K/ul (4.8-10.8)
[2023-02-10 06:30] LABS: BUN Creatinine Ratio 16.4 (10-20); Calcium 10.2 mg/dl (8.6-10.3); Creatinine Clr Calc Pharmacy 129.2 ml/min; Est GFR (African American) 122.2 ml/min; Est GFR (Non-African American) 105.4 ml/min; Magnesium 1.7 mg/dl (1.7-2.4); Phosphorus 3.7 mg/dl (2.5-4.9); Potassium 3.5 mmol/L (3.5-5.1)
[2023-02-10] MEDS: CIPRO 0.3%/DEXAMETHASONE 0.1% OTIC SUSP 7.5ML OT SCH (08:05)
[2023-02-10] MEDS: METOCLOPRAMIDE HCL 5 MG TABLET PO SCH ×2 (08:07→11:20)
[2023-02-10] MEDS: INSULIN ASPART PER UNIT CHARGE SC SCH (09:14)
[2023-02-10] MEDS: LANTUS PER UNIT CHARGE SQ SCH (09:15)
[2023-02-10] MEDS ORDERED: INSULIN ASPART PER UNIT CHARGE SC SCH (11:30)
--- NOTE | 2023-02-10 11:49 | Hospitalist Progress Note ---
Date of Service February 10, 2023 Assessment & Plan (1) Hypercalcemia: (2) RSV (respiratory syncytial virus infection): (3) Nausea & vomiting: (4) Hyperglycemia: (5) Breast cancer: Plan Ms. Vega is a 47-year-old female past med history significant for metastatic breast cancer, diabetes ,hypothyroidism with ongoing nausea and vomiting, despite recent cholecystectomy admitted for multiple concerns. Patient found to be RSV positive, but denies SOB, mostly notes sinus congestion and purulent ear drainage for 3-4 days. Patient also noting poor intake since last discharge. Questionable overlap of gastroparesis given uncontrolled diabetes, as well as intolerance and ongoing symptoms s/p chemo treatments. Will trial marinol to see if this aids in symptoms, as well as schedule reglan with meals to promote motility. Given sinus congestions and purulent otorrhea, will start antibiotics for pseudomonal coverage given diabetes history--will transition to PO when able to tolerate. #Acute Otorrhea, c/f severe otitis media infection #Sinus Congestion Bilateral purulent otorrhea, no ear pain but reduced hearing 2/2 discharge Start ciprofloxacin given inability for PO regimen and need for pseudomonal coverage, transition to PO if able Start ciprodex BID to aid in drainage, improving Pseudafed for sinus congestion, encouraging 30mg TID as able to tolerate PO to aid in symptoms Follow up for improvement and need for IP ENT if failure to improve #Hypercalcemia *slow down trend #Severe vit D deficiency Ca 12.2 on admission Possibly acutely elevated to dehydration, malignancy ongoing, sedentary PTH 12.4, Vit D <7.0 Nephrology consult following, will review daily recommendations as completed #RSV Infection Pt positive for RSV infection Chest XRAY with no concern for pneumonia Received duoneb Rx in the ED, continue prn Continue with supportive treatments as tolerated #Persistent nausea and vomiting #S/p lap bart 01/11 likely component of gastroparesis v ongoing from prior treatments -Encourage Reglan use as promotility agent, improved qtc -Trial marinol for refractory of nausea/vomiting -COntinue to encourage trial of scheduled reglan before meals for promotility -GI consult (gall bladder with dysplasia, ?EGD warranted to any degree, partial outlet obstruction contributing?) #Uncontrolled Diabetes On 50U BID lantus at home Received IV Insulin 10U in the ED Continue on Lantus 10mg BID, ISS carb ratio of 14, correction factor of 40, glucose goal 100-140 Glycemic consult given A1C 9.3% Ensure diabetes education prior to dispo #Hypothyroidism Not taking synthroid, TSH 7; given ongoing/overlapping concerns will resume -Start 75mcg daily, patient agreeable to starting given overlapping symptoms of hypothyroid that may contribute to overall presentation #Metastatic breast cancer #Mets to ribs with bilateral pathologic rib fractures -Denies use of gabapentin, Flexeril or fentanyl at this time; relies on prn oxy -Resume Oxycodone prn q6h 10mg as needed, IV dialudid prn -No further systemic option per Dr. Newby other than radiation; seeking OP seco nd opinion at [place] #Chronic Normocytic anemia -Stable, CTM #Unintentional Weight loss #Morbid obesity BMI 49.2 last admission, now to 37.8, Encourage lifestyle modifications and healthy habits while inpatient, but focus on managing comorbities and high protein intake DVT prophylaxis: Lovenox SQ CODE STATUS: DNR/DNI Diet: diet as tolerated Dispo: Med/Surg with tele Admission and Anticipated Discharge Date Admission Date: February 07, 2023 Results & Data Results & Data Vital Signs (Past 12 Hours) Vital Signs Temp Pulse Pulse Pulse Resp BP Pulse Ox 02/10/23 08:43 36.6 C 81 16 133/84 97 02/10/23 08:00 80 02/10/23 03:15 36.9 C 87 18 133/85 93 02/10/23 00:22 90 O2 Del Method 02/10/23 08:43 Room Air 02/10/23 08:00 02/10/23 03:15 Room Air 02/10/23 00:22
--- NOTE | 2023-02-10 16:50 | Discharge Summary ---
Discharge Summary Date of Service February 10, 2023 Notes For Next Care Provider Medication Changes From Visit As per below Admission HPI Per Admitting Provider Pt is a 47yoF with PMHx significant for metastatic breast cancer, diabetes, hypothyroidism admitted with hyperglycemia and hypercalcemia in the setting of an RSV infection. History obtained from pt and friend at the bedside. Pt states that for the past 5 days she has had a cough and has not been able to catch her breath at times. Notes that she is very tired and weak. Has chronic nausea and vomitting that she states got better after her cholecystectomy during the last admission but returned right before thanksgiving. States she has not been able to keep anything down since then. Notes copious amounts of emesis that makes "quite the mess" States she as stopped chemotherapy, follows with Dr Zapien from oncology. Has been using her home Lantus and Novolog. Would like to be a DNR/DNI this admission. Friend notes that she checks on her every few days and went to her home today and noted how exhausted she was and brought her to the ED. Admission Exam Per Admitting Provider General: Alert, oriented. No acute distress Psych: Appropriate mood and affect, pt tired Neuro: No gross deficits while laying in bed HEENT: NC/AT Chest: Nontender to palpation. CV: RRR Resp: Breath sounds clear bilaterally, no increased effort of breathing. Abdomen: Soft, nontender, nondistended. Extremities: No edema in lower extremities bilaterally. Principal Dx & Hospital Course #1 = Principal Diagnosis (1) Hypercalcemia: (2) RSV (respiratory syncytial virus infection): (3) Nausea & vomiting: (4) Hyperglycemia: (5) Breast cancer: Plan Per Dr. Magallanes with Addendum: Ms. Vega is a 47-year-old female past med history significant for metastatic breast cancer, diabetes ,hypothyroidism with ongoing nausea and vomiting, despite recent cholecystectomy admitted for multiple concerns. Patient found to be RSV positive, but denies SOB, mostly notes sinus congestion and purulent ear drainage for 3-4 days. Patient also noting poor intake since last discharge. Questionable overlap of gastroparesis given uncontrolled diabetes, as well as intolerance and ongoing symptoms s/p chemo treatments. Will trial marinol to see if this aids in symptoms, as well as schedule reglan with meals to promote motility. Given sinus congestions and purulent otorrhea, will start antibiotics for pseudomonal coverage given diabetes history--will transition to PO when able to tolerate. #Acute Otorrhea, c/f severe otitis media infection #Sinus Congestion Bilateral purulent otorrhea, no ear pain but reduced hearing 2/2 discharge Start ciprofloxacin given inability for PO regimen and need for pseudomonal coverage, transition to PO if able Start ciprodex BID to aid in drainage, improving Pseudafed for sinus congestion, encouraging 30mg TID as able to tolerate PO to aid in symptoms Follow up for improvement and need for IP ENT if failure to improve 02/10 Improving Discharge on: Augmentin 875 mg twice daily x 10 days Ciprofloxacin eardrops twice daily x 10 days Flonase twice daily x 7 days PCP follow-up in 1 week #Hypercalcemia #Severe vit D deficiency Ca 12.2 on admission Possibly acutely elevated to dehydration, malignancy ongoing, sedentary PTH 12.4, Vit D <7.0 Given IV fluids resolved Nephrology consulted: would not consider bisphosphonate at this time since presenting/peak calcium level only mild-moderately elevated > risk here w/ such medications for symptomatic hypocalcemia -check bmp at PCP f/u w/in one week of hospital d/c #RSV Infection Pt positive for RSV infection Chest XRAY with no concern for pneumonia Received duoneb Rx in the ED, continue prn Continue with supportive treatments as tolerated 02/10 Respiratory status stable #Persistent nausea and vomiting #S/p lap bart 01/11 likely component of gastroparesis v ongoing from prior treatments -Encourage Reglan use as promotility agent, improved qtc -Trial marinol for refractory of nausea/vomiting -COntinue to encourage trial of scheduled reglan before meals for promotility -GI consult (gall bladder with dysplasia, ?EGD warranted to any degree, partial outlet obstruction contributing?) 02/10 Patient would like to continue as needed antiemetics for now, and pursue outpatient workup, GI follow-up #Uncontrolled Diabetes On 50U BID lantus at home Received IV Insulin 10U in the ED Continue on Lantus 10mg BID, ISS carb ratio of 14, correction factor of 40, glucose goal 100-140 Glycemic consult given A1C 9.3% Ensure diabetes education prior to dispo Follow-up with PCP for further management #Hypothyroidism Not taking synthroid, TSH 7; given ongoing/overlapping concerns will resume -Start levo thyroxine 75mcg daily, patient agreeable to starting given overlapping symptoms of hypothyroid that may contribute to overall presentation Repeat TSH in 4-6 weeks #Metastatic breast cancer #Mets to ribs with bilateral pathologic rib fractures -Denies use of gabapentin, Flexeril or fentanyl at this time; relies on prn oxy -Resume Oxycodone prn q6h 10mg as needed, IV dialudid prn -No further systemic option per Dr. Newby other than radiation; seeking OP second opinion at [place] #Chronic Normocytic anemia -Stable, CTM #Unintentional Weight loss #Morbid obesity BMI 49.2 last admission, now to 37.8, Encourage lifestyle modifications and healthy habits while inpatient, but focus on managing comorbities and high protein intake DVT prophylaxis: Lovenox SQ CODE STATUS: DNR/DNI Diet: diet as tolerated Dispo: Discharge to home Follow-up with PCP in 1 week Discharge Exam General- oriented x 3, not in distress, speaks in sentences with no effort or accessory muscle use Eyes- anicteric Ear-no tenderness on bl pinnae, no erythema/warmth, no active discharge Neck- no JVD Lungs- clear breath sounds bilaterally, no rales/wheezes Heart- normal rate, regular rhythm; no murmurs Abdomen- normal bowel sounds, nondistended, soft, nontender Extremities- no pretibial edema, no calf tenderness Neuro- alert, oriented x 3; no gross focal neurologic deficits Skin- warm & dry Updated Medication List Medication Instructions Recorded Confirmed Type denosumab 120 mg/1.7 mL (70 mg/mL) 120 mg subcut .Q 3months 01/01/22 02/07/23 History subcutaneous solution (Xgeva) blood-glucose sensor (Dexcom G6 12/17/22 02/07/23 History Sensor device) blood-glucose transmitter (Dexcom 12/17/22 02/07/23 History G6 Transmitter device) insulin aspart U-100 100 unit/mL 10 unit subcut AC 12/17/22 02/07/23 History (3 mL) subcutaneous pen (Novolog FlexPen U-100 Insulin aspart) insulin glargine 100 unit/mL (3 40 unit subcut BID 12/17/22 02/07/23 History mL) subcutaneous pen (Lantus Solostar U-100 Insulin) ondansetron HCl 8 mg tablet 8 mg PO Q12H PRN Nausea 12/17/22 02/07/23 History pen needle, diabetic 32 gauge x 12/17/22 02/07/23 History 5/32" (BD Ultra-Fine Aletha Pen Needle) oxycodone 10 mg tablet 10 - 20 mg PO Q4 PRN Pain 01/07/23 02/07/23 History promethazine 25 mg rectal 25 mg [place] Q8H PRN nausea and 01/26/23 02/07/23 Rx suppository vomiting #12 ea promethazine 25 mg tablet 25 mg PO TID PRN nausea and 01/26/23 02/07/23 Rx vomiting #20 tabs prochlorperazine maleate 10 mg 10 mg PO Q6 PRN Nausea 02/07/23 02/07/23 History tablet amoxicillin 875 mg-potassium 1 tab PO BID 10 days #20 tabs 02/10/23 Rx clavulanate 125 mg tablet ciprofloxacin 0.3 %-dexamethasone 4 drp otic (ear) BID 10 days #7.5 02/10/23 Rx 0.1 % ear drops,suspension mL fluticasone propionate 50 1 spray intranasal BID allergy 02/10/23 Rx mcg/actuation nasal symptoms 10 days #16 grams spray,suspension (Flonase Allergy Relief) levothyroxine 75 mcg tablet 75 mcg PO DAILYBB 30 days #30 tabs 02/10/23 Rx (Synthroid) potassium chloride 20 mEq oral 20 meq PO DAILY 10 days #10 ea 02/10/23 Rx packet (Klor-Con) Hospital Stay Data Consultations 02/07/23 18:51 ED Decision to Admit Stat 02/07/23 22:15 Consult Nephrology Routine 02/08/23 12:41 Consult Gastroenterology Routine Diagnostic Imagining Performed Laboratory Results WBC 6.13 K/ul (4.8-10.8) 02/10/23 04:36 RBC 3.25 M/uL (4.20-5.40) L 02/10/23 04:36 Hgb 9.8 g/dl (12.0-16.0) L 02/10/23 04:36 Hct 29.0 % (37.0-47.0) L 02/10/23 04:36 MCV 89.2 fL (80.0-100.0) 02/10/23 04:36 MCH 30.2 pg (25.0-34.0) 02/10/23 04:36 MCHC 33.8 g/dL (32.0-36.0) 02/10/23 04:36 RDW Std Deviation 45.1 fL (36.4-46.3) 02/10/23 04:36 RDW Coeff of Joshua 14.0 % (11.5-14.5) 02/10/23 04:36 Plt Count 242 K/uL (130-400) 02/10/23 04:36 MPV 9.3 fL (9.4-12.4) L 02/10/23 04:36 Immature Gran % (Auto) 0.7 % 02/08/23 06:53 Neut % (Auto) 77.8 % 02/08/23 06:53 Lymph % (Auto) 12.4 % 02/08/23 06:53 [place] % (Auto) 8.0 % 02/08/23 06:53 Eos % (Auto) 0.8 % 02/08/23 06:53 Baso % (Auto) 0.3 % 02/08/23 06:53 Neut # (Auto) 7.82 K/uL (1.40-6.50) H 02/08/23 06:53 Lymph # (Auto) 1.25 K/uL (1.20-3.40) 02/08/23 06:53 [place] # (Auto) 0.80 K/uL (0.11-0.59) H 02/08/23 06:53 Eos # (Auto) 0.08 K/uL (0.00-0.50) 02/08/23 06:53 Baso # (Auto) 0.03 K/uL (0.00-0.20) 02/08/23 06:53 Immature Gran # (Auto) 0.07 K/uL (0.01-0.20) 02/08/23 06:53 Sodium 136 mmol/L (136-145) 02/10/23 04:36 Potassium 3.5 mmol/L (3.5-5.1) 02/10/23 04:36 Chloride 101 mmol/L (98-107) 02/10/23 04:36 Carbon Dioxide 28 mmol/L (21-32) 02/10/23 04:36 Anion Gap 7 (3-11) 02/10/23 04:36 BUN 11 mg/dl (6-23) 02/10/23 04:36 Creatinine 0.67 mg/dl (0.6-1.2) 02/10/23 04:36 Est Cr Clr Drug Dosing 129.2 ml/min 02/10/23 04:36 Est GFR ( Amer) 122.2 ml/min 02/10/23 04:36 Est GFR (Non-Af Amer) 105.4 ml/min 02/10/23 04:36 BUN/Creatinine Ratio 16.4 (10-20) 02/10/23 04:36 Glucose 111 mg/dl (70-99(Fasting)) H 02/10/23 04:36 POC Glucose 131 mg/dl (70-99) H 02/10/23 12:20 Estimat Average Glucose 220 mg/dl 02/08/23 06:53 Hemoglobin A1c 9.3 % (4.5-5.6) H 02/08/23 06:53 Calcium 10.2 mg/dl (8.6-10.3) 02/10/23 04:36 Ionized Calcium 1.49 mmol/L (1.12-1.32) H 02/08/23 06:53 Phosphorus 3.7 mg/dl (2.5-4.9) D 02/10/23 04:36 Magnesium 1.7 mg/dl (1.7-2.4) 02/10/23 04:36 Total Bilirubin 0.9 mg/dl (0.2-1.0) 02/08/23 06:53 AST 10 U/L (13-39) L 02/08/23 06:53 ALT 7 U/L (7-52) 02/08/23 06:53 Alkaline Phosphatase 114 U/L (34-104) H 02/08/23 06:53 Total Protein 7.1 gm/dl (6.0-8.3) 02/08/23 06:53 Albumin 3.2 gm/dl (3.4-5.0) L 02/08/23 06:53 Globulin 3.9 gm/dl (2.5-4.0) 02/08/23 06:53 Albumin/Globulin Ratio 0.8 (0.9-2) L 02/08/23 06:53 25-OH Vitamin D Total < 7.0 ng/ml (30-100) L 02/09/23 10:14 TSH 7.354 uIu/ml (0.300-4.500) H 02/08/23 06:53 Free T4 0.69 ng/dl (0.61-1.60) 02/08/23 06:53 PTH Intact 12.4 pg/ml (12.0-88.0) 02/08/23 06:53 Urine Color Dark Yellow 02/08/23 03:28 Urine Appearance Turbid (Clear) A 02/08/23 03:28 Urine pH 5.5 (4.5-7.5) 02/08/23 03:28 Ur Specific [place] 1.032 (1.000-1.030) H 02/08/23 03:28 Urine Protein 1+ (Negative) H 02/08/23 03:28 Urine Glucose (UA) 3+ (Negative) H 02/08/23 03:28 Urine Ketones 1+ (Negative) H 02/08/23 03:28 Urine Blood 2+ (Negative) H 02/08/23 03:28 Urine Nitrite Negative (Negative) 02/08/23 03:28 Urine Bilirubin Negative (Negative) 02/08/23 03:28 Urine Urobilinogen Negative (Negative) 02/08/23 03:28 Ur Leukocyte Esterase 1+ (Negative) H 02/08/23 03:28 Urine WBC (Auto) >30 /hpf (0-5) H 02/08/23 03:28 Urine RBC (Auto) 5-10 /hpf (0-4) H 02/08/23 03:28 U Hyaline Cast (Auto) 1-5 /lpf (0-5) 02/08/23 03:28 U Epithel Cells (Auto) >30 /lpf (0-5) H 02/08/23 03:28 Urine Bacteria (Auto) Negative (Negative) 02/08/23 03:28 Urine Yeast Budding (None Prsent) A 02/08/23 03:28 SARS-CoV-2 (PCR) NEGATIVE (Negative) 02/07/23 16:03 Influenza Type A (PCR) Negative (Neg) 02/07/23 16:03 Influenza Type B (PCR) Negative (Neg) 02/07/23 16:03 RSV (RT-PCR) Positive (Neg) A* 02/07/23 16:03 Impressions Chest X-Ray 02/07/23 16:05 XR chest 1V not portable HISTORY: 48 years-old Female illness acute shortness of breath COMPARISON: 12/27/2022 TECHNIQUE: AP view of the chest FINDINGS: Left subclavian Aodrot-f-Hiqd catheter is unchanged. Cardiac silhouette is upper limits of normal in size. Surgical suture material in the left midlung. No pneumothorax, pleural effusion or airspace consolidation. Osteoblastic skeletal metastasis redemonstrated. Chronic appearing right-sided rib fractures are nondisplaced. IMPRESSION: 1. No acute process in the chest. 2. Osteoblastic skeletal metastasis redemonstrated. ACT 112: Negative or not required by law. The above report was generated using voice recognition software. It may contain grammatical, syntax or spelling errors. Electronically signed by: Ruddy Chen M.D. 02/07/2023 4:42 PM Pending Results Patient Have Any Pending Studies at Discharge: No Discharge Instructions Given to Patient (Per Discharging Provider) PLEASE REFER TO YOUR NEW MEDICATION LIST AND FOLLOW INSTRUCTIONS CAREFULLY. YOUR NEW MEDICATIONS INCLUDE: Augmentin-oral antibiotic for ear infection Ciprofloxacin eardrops- antibiotic solution for ear infection Flonase-nasal spray for nasal congestion Levothyroxine-for hypothyroidism (low thyroid function) Potassium supplement Please isolate for at least another 5 days and until coughing resolves to preven t spread of RSV infection. Strict frequent handwashing please. Please take a probiotic daily for at least 1 month. PLEASE CALL YOUR PRIMARY CARE PHYSICIAN OR RETURN TO THE ER IF WITH WORSENING OF SYMPTOMS, INCLUDING Cough, sputum production, shortness of breath, chest pain, fevers or chills, Ear pain, ear discharge, problems with hearing, Nausea or vomiting, abdominal pain, dehydration, poor tolerance of oral intake, etc. FOLLOW UP WITH PRIMARY CARE PHYSICIAN IN 1 WEEKAS OUTLINED ABOVE. FOLLOW-UP WITH [facility] CONSULTANT SCHEDULED TOMORROW. Total Time Total Time Spent Total Time Spent (In Minutes): >30 minutes
[2023-02-11] MEDS ORDERED: INSULIN ASPART PER UNIT CHARGE SC SCH (07:30)
[2023-02-13 02:52] LABS: Vitamin D 1,25 9 pg/mL (18-72); Vitamin D2,1,25 <8 pg/mL; Vitamin D3,1,25 9 pg/mL
== END 2023-02-10 16:45 | disposition home or self-care (01) | DRG 641 ==
LOC: ED 15:59 → SUATTDRO 18:56 → 2W 18:56

== ENCOUNTER 2023-02-19 15:20 | Inpatient (IN) ==
[2023-02-19] MEDS ORDERED: SODIUM CHLORIDE 0.9% 1,000 ML IV ONE (17:15)
[2023-02-19 17:19] LABS: Influenza A virus by PCR Negative (Neg); Influenza B virus by PCR Negative (Neg); SARS CoV2 RNA(COVID-19) Ceph NEGATIVE (Negative)
[2023-02-19 17:28] LABS: RSV by PCR Positive (Neg)
[2023-02-19] MEDS ORDERED: ALTEPLASE, RECOMBINANT 1 MG/ML 2ML VIAL INSTIL ONE (18:34)
[2023-02-19] MEDS ORDERED: POTASSIUM CHLORIDE CRTAB 20 MEQ TABCR PO STA (18:41)
--- NOTE | 2023-02-19 18:46 | History & Physical Report ---
Date of Service February 19, 2023 Assessment & Plan (1) Hypercalcemia: (2) Weakness: (3) Metastatic breast cancer: (4) Diabetes: Plan Ms. Vega is a 48-year-old female past med history significant for metastatic breast cancer, diabetes ,hypothyroidism with chronic nausea and vomiting, recent cholecystectomy, and ongoing issues with hypercalcemia being admitted for work up of hypercalcemia noted on labs at Heme/Onc appointment this afternoon. Patient with bony mets, severe vitamin d deficiency, and issues with PO intake, all potentially contributing to presentation Patient still RSV positive; however, asymptomatic and symptomatically much improved since prior admission. #Hypercalcemia #Severe Vitamin D Deficiency Ca 14.2 on admission, historically resolved with IVF Vitamin D panel notable low across the board, pth WNL on 02/07 Nephrology consult ordered, will appreciate recs 50KU d2 q 7 days now as deficiency likely contributing IVF once blood port resolved, encourage PO Trend ca levels #Progressive weakness -endorses general deconditioning from freuqent admissions and ongoing illness -Agreeable to PT/OT eval and Home health if applicable #RSV Infection Asymptomatic Droplet precautions, follow up with infection control regarding continued precautions #Otorrhea, s/p severe otitis media infection Improvement in bilateral purulent otorrhea, only present minimally in L > R Continue ciprodex BID for 2 more days, reassess Follow up for improvement and need for IP ENT if failure to improve #BHAVANA -potentially related to dehydration/poor po/ongoing illness -Trend Cr, avoid nephrotoxic agents, assess after fluid resuscitation once port open #Hyponatremia -135 corrected for hyperglycemia on OP labs -Trend BMP, manage glucose #Hypokalemia -Replace lytes prn #Chronic nausea and vomiting #S/p lap bart 01/11 Reports notable improvement -Use Phenergan at home for symptoms -Trial marinol for refractory of nausea/vomiting prn as this added last time per patient -Supposed to follow up GI OP given concern for outlet obstruction on imaging, consider GI if ongoing issue for inpatient scope if RSV precautions no longer warranted #Uncontrolled Diabetes Home 25 U BID and 10lispro AC Continue on Lantus 25mg BID, ISS carb ratio of 6, correction factor of 20, glucose goal 110-140 #Hypothyroidism -Continue 75mcg daily #Metastatic breast cancer #Mets to ribs with bilateral pathologic rib fractures -Denies use of gabapentin, Flexeril or fentanyl at this time; relies on prn oxy -Resume Oxycodone prn q6h 10mg as needed, IV dialudid prn -No further systemic option per Dr. Newby other than radiation; seeking OP second opinion at [facility] #Chronic Normocytic anemia -Stable, CTM #Unintentional Weight loss #Morbid obesity BMI 49.2 last admission, now to 38.9 (slightly up from last admission), Encourage lifestyle modifications and healthy habits while inpatient, but focus on managing comorbidities and high protein intake DVT prophylaxis: heparin sq CODE STATUS: DNR/DNI Diet: diet as tolerated Dispo: Med/Surg with tele Admission and Anticipated Discharge Date Admission Date: Time spent evaluating patient, direct bedside care, chart review, placing orders, interpretation of diagnostic studies, discussion with consultants, patient, and family members, as well as other required patient management activities is 65 minutes. History of Present Illness Chief Complaint: abnormal labs as OP Primary Care Provider: CONSTANTINO Reid Ms. Vega is a 48-year-old female past med history significant for metastatic breast cancer, diabetes ,hypothyroidism with chronic nausea and vomiting, recent cholecystectomy, and ongoing issues who presented to [facility] ED after found to have abnormal labs at Heme/Onc appointment this afternoon. Patient followed up with Dr. Newby to discuss next infusion of denosumab contingent on calcium levels; however, labs revealed BHAVANA and calcium to 14.2. Patient reports that since last discharge 02/10 from recent admission with RSV/otorrhea/vomiting, she has felt much improved. She is tolerating intake to some degree, more than she has been able for some time. She states her nausea is better handled and denies any recent vomiting. She notes she is cautious with her intake and worries she will "drink too much and vomit." She states that her ears are improving from a drainage standpoint. She denies ongoing congestion, and states she will not use flonase. She also reports concern for progressive weakness and agreeable for PT/OT eval or home services if available. In the ED, vitals were notable for BP of SBO 120-130s, HR of 80-90s and O2 sat of 100 on RA Port clogged, pending alteplase to open port for repeat admission labs, IVF ordered--plan for 1L with maintenance there after for additional liter ED interventions: delayed 2/2 clogged port, pending IV team assessment Consultants: Consulting nephrology Patient to be admitted to med/tele for further evaluation and management of hypercalcemia Allergies Allergy/AdvReac Type Severity Reaction Status Date / Time No Known Allergies Allergy Verified 02/19/23 16:39 Home Medications Medication Instructions Recorded Confirmed Type denosumab 120 mg/1.7 mL (70 mg/mL) 120 mg subcut .Q 3months 01/01/22 02/19/23 History subcutaneous solution (Xgeva) blood-glucose sensor (Dexcom G6 12/17/22 02/19/23 History Sensor device) blood-glucose transmitter (Dexcom 12/17/22 02/19/23 History G6 Transmitter device) insulin aspart U-100 100 unit/mL 10 unit subcut AC 12/17/22 02/19/23 History (3 mL) subcutaneous pen (Novolog FlexPen U-100 Insulin aspart) insulin glargine 100 unit/mL (3 40 unit subcut BID 12/17/22 02/19/23 History mL) subcutaneous pen (Lantus Solostar U-100 Insulin) ondansetron HCl 8 mg tablet 8 mg PO Q12H PRN Nausea 12/17/22 02/19/23 History pen needle, diabetic 32 gauge x 12/17/22 02/19/23 History 5/32" (BD Ultra-Fine Aletha Pen Needle) oxycodone 10 mg tablet 10 - 20 mg PO Q4 PRN Pain 01/07/23 02/19/23 History promethazine 25 mg rectal 25 mg NV Q8H PRN nausea and 01/26/23 02/19/23 Rx suppository vomiting #12 ea promethazine 25 mg tablet 25 mg PO TID PRN nausea and 01/26/23 02/19/23 Rx vomiting #20 tabs ciprofloxacin 0.3 %-dexamethasone 4 drp otic (ear) BID 10 days #7.5 02/10/23 02/19/23 Rx 0.1 % ear drops,suspension mL levothyroxine 75 mcg tablet 75 mcg PO DAILYBB 30 days #30 tabs 02/10/23 02/19/23 Rx (Synthroid) potassium chloride 20 mEq oral 20 meq PO DAILY 10 days #10 ea 02/10/23 02/19/23 Rx packet (Klor-Con) Past Med/Surg History Medical History History of COVID-19 12/2020 + 12/2021 > residual taste dysfunction and feeling of need to clear throat Bilateral breast cancer Arthritis Liver spots "Mets from cancer" Depression with anxiety Peripheral neuropathy Heart palpitations R/t anxiety per patient Type II diabetes mellitus History of small bowel obstruction Hx bowel obstruction Hypothyroidism No current meds Breast cancer (11/12/15) Stage 4 (+ mets) Surgical History History of tubal ligation Port-A-Cath in place (04/30/22) Insertion Access Port left subclavian with Fluoroscopy(Left) - Chad Banuelos DO History of surgery Left Excisional Debridement of Buttock Wound Nausea and vomiting after administration of anesthetic agent "EXTREME" History of vascular access device PORT INSERTION/REMOVAL History of tooth extraction History of endometrial ablation History of bowel resection D/T BOWEL OBSTRUCTION History of lung surgery Left thoracoscopy with wedge resection left lower lobe Dr. Damico 03/29/2018 History of dilatation and curettage H/O hernia repair Hx of section x3 S/P lumpectomy, left breast LEFT ARM LIMB RESTRICTION Family History Mother , 77yo Diabetes Heart disease Aortic valve replacement Mitral valve calcifications UTI (urinary tract infection) Father , 62yo Diabetes Myocardial infarction Hypertension Stroke Brother Diabetes Myocardial infarction Cardiac stents Pacemaker Hypertension Sister No problems noted. Daughter No problems noted. Son No problems noted. Son No problems noted. 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 MMM. EOMI, clear conjunctiva, oropharynx clear, left ear with slight waxy drainage, no florid purulence like prior NECK: Supple without lymphadenopathy. No stiffness or restricted ROM. HEART: Normal rate and regular rhythm, normal S1/S1, no m/r/g LUNGS: CTAB, moving air well. No crackles or wheezes are heard., left portacath without surround erythema ABDOMEN: Soft, nontender, nondistended with good bowel sounds heard. EXTREMITIES: Without cyanosis, clubbing or edema. NEUROLOGICAL: Grossly nonfocal. Alert and oriented, moving all 4 extremities. CN not formally tested but appear grossly intact. Skin: Warm and dry without any rash. Results & Data Results & Data Vital Signs (Past 12 Hours) Vital Signs Pulse Pulse Resp BP BP Pulse Ox O2 Del Method 02/19/23 18:00 92 H 18 136/98 100 Room Air 02/19/23 15:42 88 18 124/100 100 Room Air 02/19/23 15:37 88 18 124/100 99 Room Air 02/19/23 15:22 87 Laboratory Results Labs from OP visit reviewed personally Admission labs pending Medications Administered Home Medications Medication Instructions Recorded Confirmed Last Taken denosumab 120 mg/1.7 mL (70 mg/mL) 120 mg subcut .Q 3months 01/01/22 02/19/23 03/10/22 11:00 subcutaneous solution (Xgeva) blood-glucose sensor (Dexcom G6 12/17/22 02/19/23 Unknown Sensor device) blood-glucose transmitter (Dexcom 12/17/22 02/19/23 Unknown G6 Transmitter device) insulin aspart U-100 100 unit/mL 10 unit subcut AC 12/17/22 02/19/23 Unknown (3 mL) subcutaneous pen (Novolog FlexPen U-100 Insulin aspart) insulin glargine 100 unit/mL (3 40 unit subcut BID 12/17/22 02/19/23 Unknown mL) subcutaneous pen (Lantus Solostar U-100 Insulin) ondansetron HCl 8 mg tablet 8 mg PO Q12H PRN Nausea 12/17/22 02/19/23 Unknown pen needle, diabetic 32 gauge x 12/17/22 02/19/23 Unknown " (BD Ultra-Fine Aletha Pen Needle) oxycodone 10 mg tablet 10 - 20 mg PO Q4 PRN Pain 01/07/23 02/19/23 Unknown promethazine 25 mg rectal 25 mg NV Q8H PRN nausea and 01/26/23 02/19/23 Unknown suppository vomiting #12 ea promethazine 25 mg tablet 25 mg PO TID PRN nausea and 01/26/23 02/19/23 Unknown vomiting #20 tabs ciprofloxacin 0.3 %-dexamethasone 4 drp otic (ear) BID 10 days #7.5 02/10/23 02/19/23 Unknown 0.1 % ear drops,suspension mL levothyroxine 75 mcg tablet 75 mcg PO DAILYBB 30 days #30 tabs 02/10/23 02/19/23 Unknown (Synthroid) potassium chloride 20 mEq oral 20 meq PO DAILY 10 days #10 ea 02/10/23 02/19/23 Unknown packet (Klor-Con) Code Status & VTE Plan VTE Prophylaxis Plan VTE Prophylaxis will be ordered: Yes
[2023-02-19] MEDS ORDERED: ERGOCALCIFEROL 50,000 UNITS 1250 MCG CAP PO SCH (19:00)
[2023-02-19 19:28] LABS: Appearance Urine Turbid (Clear); Bilirubin Urine Negative (Negative); Blood Urine Trace (Negative); Color Urine Yellow; Epithelial Cell Urine Auto >30 /lpf (0-5); Glucose Urine UA Negative (Negative); Ketones Urine Negative (Negative); Leukocyte Esterase Urine 2+ (Negative); Nitrite Urine Negative (Negative); Protein Urine Negative (Negative); RBC Urine Automated 0-4 /hpf (0-4); Urobilinogen Urine Negative (Negative); WBC Urine Automated >30 /hpf (0-5)
[2023-02-19 19:40] LABS: Bacteria Urine Automated 1+ (Negative)
[2023-02-19] MEDS ORDERED: POTASSIUM CHLORIDE PWD 20 MEQ PACK PO STA (19:40)
[2023-02-19 19:41] LABS: Amorphous Sediment Urine Present (None Prsent)
--- NOTE | 2023-02-19 21:10 | Emergency Department Note ---
Impression & Plan Hypercalcemia, Metastatic breast cancer ED Provider Note NAME: DEMETRIA CHAN AGE: 48 SEX: Female INFORMANT: Patient ED PROVIDER(S): Mateo Beasley MD CHIEF COMPLAINT: Abnormal lab PLAN: Disposition: Admitted Outpatient prescription management: none Referral: None MEDICAL DECISION MAKING: Patient presented because of abnormal labs. She has a history of hypercalcemia secondary to metastatic breast cancer. Patient was hemodynamically stable. Workup initiated. Labs reviewed from today she did have a significant elevation of her calcium at 14. IV fluids were administered. CBC and chemistry panel were unremarkable otherwise except for borderline anemia which is stable and mildly low potassium. Patient did have RSV recently and is still testing positive but those symptoms have improved. Patient did have problems with obtaining blood from her Mediport. She was evaluated by the IV team. They did attempt flushing and did request Cathflo for port management. This was ordered. I did consult with Dr. Magallanes of the [facility]ist service. She did evaluate the patient in the ER and admitted her for further management. Care/management discussed with: executive communications manager Level of care consideration(s): After review of the information above and other included data, I feel the patient requires escalation of care to admission Triage Nursing notes: reviewed and agree them. Vital Signs: reviewed and remarkable for no significant abnormalities Additional History obtained from: none Chronic Medical/Social Conditions affecting care: Metastatic breast cancer Prior/ Outside/ External records reviewed: none Differential Diagnosis: Infection, dehydration, metabolic abnormality, hypo/hyperglycemia, electrolyte disturbance, anemia, hypoxia, cardiac sources, intracerebral event, toxicologic, neurologic, as well as other pathologies. Diagnostics, independently interpreted by me: ECG: Twelve-lead ECG reveals a normal sinus rhythm at 88 bpm. Poor R wave progression anteriorly. Mild J-point elevation in V2. No reciprocal changes. No TWI. No PVCs. Cardiac Monitoring: Cardiac monitoring ordered by me: The patient was placed on continuous cardiac monitoring and observed. It revealed a normal sinus rhythm at 93 beats per minute without ectopy or evidence of dysrhythmia. Medical decision rules: none Imaging studies: Deferred HPI: 48 year old Female arrives for evaluation of abnormal labs. This started on outpatient labs done today. Patient has a history of hypercalcemia as well as metastatic breast cancer. Today her blood work was done and is concerning for a calcium of 14. The patient also notes the following associated symptoms, feeling generally weak. Patient has chronic nausea. The patient has been prescribed no medication for relieving factors. Current pain is rated as 0/10. Pt denies LOC, headache, fevers, chills, diaphoresis, visual changes, neck pain, chest pain, breathing difficulties, vomiting, abdominal pain, back pain, melena, hematochezia, urinary symptoms, numbness, lymphadenopathy, rash, or other complaints. PAST MEDICAL HISTORY: See Below, metastatic breast cancer PAST [facility] HISTORY: See Below[facility] SOCIAL HISTORY: See Below, HOME MEDICATIONS: See Below ALLERGIES: See Below VITALS: See Below PHYSICAL EXAMINATION: GENERAL: Awake, tired appearing, in no distress HENT: Normocephalic, atraumatic. Oropharynx unremarkable. EYES: Normal conjunctiva. Sclera non-icteric. NECK: Inspection normal. Non-tender. Supple. No nuchal rigidity. FROM. No masses. RESPIRATORY: Clear to auscultation. No wheezes. No rales. Normal respiratory effort. CARDIAC: Normal rate. Normal rhythm. No murmurs. No rubs. Extremities warm and well perfused. Pulses equal. No JVD. GI: Soft, non-distended. No tenderness to palpation. No rebound or guarding. No masses. RECTAL: Deferred. MUSCULOSKELETAL: Atraumatic. Chest examination reveals no tenderness. The back is symmetrical on inspection without obvious abnormality. There is no CVA tenderness to palpation. No joint edema. LOWER EXTREMITIES: Calves are equal size bilaterally and non-tender. No edema. No discoloration. NEURO: Normal sensorium. No sensory or motor deficits noted. SKIN: No rash or jaundice noted. PROCEDURES: none CRITICAL CARE: none OBSERVATION NOTE: none Past Med/Surg History Medical History History of COVID-19 12/2020 + 12/2021 > residual taste dysfunction and feeling of need to clear throat Bilateral breast cancer Arthritis Liver spots "Mets from cancer" Depression with anxiety Peripheral neuropathy Heart palpitations R/t anxiety per patient Type II diabetes mellitus History of small bowel obstruction Hx bowel obstruction Hypothyroidism No current meds Breast cancer (11/12/15) Stage 4 (+ mets) Surgical History History of tubal ligation Port-A-Cath in place (04/30/22) Insertion Access Port left subclavian with Fluoroscopy(Left) - Chad Banuelos DO History of surgery Left Excisional Debridement of Buttock Wound Nausea and vomiting after administration of anesthetic agent "EXTREME" History of vascular access device PORT INSERTION/REMOVAL History of tooth extraction History of endometrial ablation History of bowel resection D/T BOWEL OBSTRUCTION History of lung surgery Left thoracoscopy with wedge resection left lower lobe Dr. Damico 03/29/2018 History of dilatation and curettage H/O hernia repair Hx of section x3 S/P lumpectomy, left breast LEFT ARM LIMB RESTRICTION Family History Mother , 77yo Diabetes Heart disease Aortic valve replacement Mitral valve calcifications UTI (urinary tract infection) Father , 62yo Diabetes Myocardial infarction Hypertension Stroke Brother Diabetes Myocardial infarction Cardiac stents Pacemaker Hypertension Sister No problems noted. Daughter No problems noted. Son No problems noted. Son No problems noted. 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 How many Children do You have: 3 Feels Safe at Home: Yes Diet: regular caffeine: No during the past year weight has: remained stable Assistive Devices: None Allergies Allergies Allergy/AdvReac Type Severity Reaction Status Date / Time No Known Allergies Allergy Verified 02/19/23 16:39 Home Meds Home Medications Medication Instructions Recorded Confirmed denosumab 120 mg/1.7 mL (70 mg/mL) 120 mg subcut .Q 3months 01/01/22 02/19/23 subcutaneous solution (Xgeva) blood-glucose sensor (DexMainstream Data G6 12/17/22 02/19/23 Sensor device) blood-glucose transmitter (Dexcom 12/17/22 02/19/23 G6 Transmitter device) insulin aspart U-100 100 unit/mL 10 unit subcut AC 12/17/22 02/19/23 (3 mL) subcutaneous pen (Novolog FlexPen U-100 Insulin aspart) insulin glargine 100 unit/mL (3 40 unit subcut BID 12/17/22 02/19/23 mL) subcutaneous pen (Lantus Solostar U-100 Insulin) ondansetron HCl 8 mg tablet 8 mg PO Q12H PRN Nausea 12/17/22 02/19/23 pen needle, diabetic 32 gauge x 12/17/22 02/19/2332" (BD Ultra-Fine Aletha Pen Needle) oxycodone 10 mg tablet 10 - 20 mg PO Q4 PRN Pain 01/07/23 02/19/23 Previous Rx's Medication Instructions Recorded promethazine 25 mg rectal 25 mg [place] Q8H PRN nausea and 01/26/23 suppository vomiting #12 ea promethazine 25 mg tablet 25 mg PO TID PRN nausea and 01/26/23 vomiting #20 tabs ciprofloxacin 0.3 %-dexamethasone 4 drp otic (ear) BID 10 days #7.5 02/10/23 0.1 % ear drops,suspension mL levothyroxine 75 mcg tablet 75 mcg PO DAILYBB 30 days #30 tabs 02/10/23 (Synthroid) potassium chloride 20 mEq oral 20 meq PO DAILY 10 days #10 ea 02/10/23 packet (Klor-Con) Results & Data (ED) Vital Signs Vital Signs - 24 hr 02/19/23 15:22 02/19/23 15:37 02/19/23 15:42 Pulse Rate 87 88 Pulse Rate [Bilateral] 88 Respiratory Rate 18 18 Blood Pressure 124/100 Blood Pressure [Right Arm] 124/100 Blood Pressure Mean 108 Blood Pressure Mean [Right Arm] 108 Pulse Oximetry 99 100 Oxygen Delivery Method Room Air Room Air Sepsis Recent Fever Within 48 Hours Yes Sepsis New/Unexplained Change in Mental Status No Sepsis Action Taken by Nursing No Action Required 02/19/23 18:00 02/19/23 19:23 Pulse Rate 93 H Pulse Rate [Bilateral] 92 H Respiratory Rate 18 Blood Pressure Blood Pressure [Right Arm] 136/98 Blood Pressure Mean Blood Pressure Mean [Right Arm] 110 Pulse Oximetry 100 Oxygen Delivery Method Room Air Sepsis Recent Fever Within 48 Hours Sepsis New/Unexplained Change in Mental Status Sepsis Action Taken by Nursing Laboratory Data Lab Results 02/19/23 02/19/23 Range/Units 16:30 19:08 Urine Color Yellow Urine Appearance Turbid A (Clear) Urine pH 7.0 (4.5-7.5) Ur Specific [place] 1.010 (1.000-1.030) Urine Protein Negative (Negative) Urine Glucose (UA) Negative (Negative) Urine Ketones Negative (Negative) Urine Blood Trace H (Negative) Urine Nitrite Negative (Negative) Urine Bilirubin Negative (Negative) Urine Urobilinogen Negative (Negative) Ur Leukocyte Esterase 2+ H (Negative) Urine WBC (Auto) >30 H (0-5) /hpf Urine RBC (Auto) 0-4 (0-4) /hpf U Hyaline Cast (Auto) 1-5 (0-5) /lpf U Epithel Cells (Auto) >30 H (0-5) /lpf Urine Bacteria (Auto) 1+ H (Negative) Amorphous Sediment Present A (None Prsent) Urine Yeast Not Reportable SARS-CoV-2 (PCR) NEGATIVE (Negative) Influenza Type A (PCR) Negative (Neg) Influenza Type B (PCR) Negative (Neg) RSV (RT-PCR) Positive A* (Neg) Administered Medications Ergocalciferol (Ergocalciferol 50,000 Units 1250 Mcg Cap) 50,000 units PO Q7D [facility] Stop: 03/21/23 18:59 Last Admin: 02/19/23 19:43 Dose: 50,000 units Documented By: BEHZAD Discontinued Medications Sodium Chloride (Nss) 1,000 mls @ 999 mls/hr IV .Q1H1M ONE Stop: 02/19/23 18:15 Last Admin: 02/19/23 19:55 Dose: 999 mls/hr Documented By: BEHZAD Potassium Chloride (Potassium Chloride Crtab 20 Meq Tabcr) 20 meq PO NOW STA Stop: 02/19/23 18:42 Last Admin: 02/19/23 19:24 Dose: Not Given Documented By: BEHZAD Discharge Plan Visit Data Chief Complaint: Abnormal Labs/Diagnostic Testing ED Provider: Mateo Beasley Discharge Problem: Hypercalcemia, Metastatic breast cancer Forms Stand Alone Forms: [facility] [employer] Prescriptions Prescriptions: No Action Xgeva 120 mg/1.7 mL (70 mg/mL) solution 120 mg subcut .Q 3months (DME) Dexcom G6 Sensor Device See Rx Instructions .Route Rx Instructions: Change sensor every 10 days (DME) Dexcom G6 Transmitter Device See Rx Instructions .Route Rx Instructions: change transmitter every 90 days insulin aspart U-100 [Novolog FlexPen U-100 Insulin] 100 unit/mL (3 mL) insulin pen 10 unit subcut AC (DME) pen needle, diabetic [BD Ultra-Fine Aletha Pen Needle] 32 gauge x 5/32" needle See Rx Instructions .Route Rx Instructions: Use 1 three times a day with insulin injection ondansetron HCl 8 mg tablet 8 mg PO Q12H PRN (Reason: Nausea) Lantus Solostar U-100 Insulin 100 unit/mL (3 mL) insulin pen 40 unit SUBCUT BID Rx Instructions: taking it 25/25 not 40 oxycodone 10 mg tablet 10 - 20 mg PO Q4 PRN (Reason: Pain) promethazine 25 mg tablet 25 mg PO TID PRN (Reason: nausea and vomiting) Qty: 20 0RF promethazine 25 mg suppository 25 mg [place] Q8H PRN (Reason: nausea and vomiting) Qty: 12 0RF ciprofloxacin-dexamethasone 0.3-0.1 % Drops,Suspension 4 drp otic (ear) BID 10 Days Qty: 7.5 1RF levothyroxine [Synthroid] 75 mcg Tablet 75 mcg PO DAILYBB 30 Days Qty: 30 0RF potassium chloride [Klor-Con] 20 mEq packet 20 meq PO DAILY 10 Days Qty: 10 0RF Referrals Referrals: Adonis Lawler CRNP [Primary Care Provider] -
[2023-02-19] MEDS: SODIUM CHLORIDE 0.9% 1,000 ML IV SCH (22:28)
[2023-02-19 23:22] LABS: Albumin Globulin Ratio 0.8 (0.9-2); Albumin Level 3.2 gm/dl (3.4-5.0); BUN Creatinine Ratio 14.6 (10-20); Bilirubin,Total 0.7 mg/dl (0.2-1.0); Calcium 13.6 mg/dl (8.6-10.3); Creatinine Clr Calc Pharmacy 64.2 ml/min; Est GFR (African American) 53.5 ml/min; Est GFR (Non-African American) 46.1 ml/min; Globulin 4.1 gm/dl (2.5-4.0); Potassium 3.3 mmol/L (3.5-5.1); Total Protein 7.3 gm/dl (6.0-8.3)
[2023-02-20] MEDS ORDERED: GLUCOSE 40% GEL 15 GM TUBE PO PRN (00:33)
[2023-02-20] MEDS ORDERED: POLYETHYLENE (MIRALAX) 17 GM PACK PO PRN (00:33)
[2023-02-20] MEDS ORDERED: DEXTROSE 50% 50 ML SYRINGE IV PRN (00:33)
[2023-02-20] MEDS ORDERED: GLUCOSE 10 TAB/TUBE PO PRN (00:33)
[2023-02-20] MEDS ORDERED: CARBOHYDRATES FOR HYPOGLYCEMIA PO PRN (00:33)
[2023-02-20] MEDS ORDERED: oxyCODONE HCL IR 5 MG TAB (IMMEDIATE RELEASE) PO PRN (00:33)
[2023-02-20] MEDS ORDERED: ACETAMINOPHEN 325 MG TAB PO PRN (00:33)
[2023-02-20] MEDS ORDERED: GLUCAGON FOR INJ 1 MG VIAL SQ PRN (00:33)
[2023-02-20] MEDS: HEPARIN SOD 5,000 UNIT/0.5 ML VIAL SQ SCH ×4 (02:14→22:05)
[2023-02-20] MEDS: LANTUS PER UNIT CHARGE SQ SCH ×3 (02:14→22:05)
[2023-02-20] MEDS: INSULIN ASPART PER UNIT CHARGE SC SCH ×5 (02:14→22:06)
[2023-02-20] MEDS: LEVOTHYROXINE SODIUM 75 MCG TABLET PO SCH (05:38)
[2023-02-20] MEDS ORDERED: Nursing to Pharmacy Communication SCH (06:30)
--- NOTE | 2023-02-20 06:55 | Electrocardiogram Report ---
Test Reason : Blood Pressure : / mmHG Vent. Rate : 088 BPM Atrial Rate : 088 BPM P-R Int : 168 ms QRS Dur : 102 ms QT Int : 342 ms P-R-T Axes : 017 -20 030 degrees QTc Int : 413 ms Normal sinus rhythm Cannot rule out Anterior infarct , age undetermined Abnormal ECG When compared with ECG of 07-FEB-2023 16:31, QRS duration has increased Nonspecific T wave abnormality now evident in Inferior leads Confirmed by Jem Corbett ([id number]) on 02/20/2023 6:55:37 AM Referred By: REFERRED SELF Confirmed By:Jem Corbett
[2023-02-20] MEDS: SODIUM CHLORIDE 0.9% 1,000 ML IV SCH ×3 (07:48→20:31)
[2023-02-20] MEDS ORDERED: SODIUM CHLORIDE 0.9% 1,000 ML IV ONE (08:04)
[2023-02-20] MEDS: CIPRO 0.3%/DEXAMETHASONE 0.1% OTIC SUSP 7.5ML OT SCH ×2 (08:27→21:59)
[2023-02-20 08:49] LABS: Hematocrit (blood only) 29.9 % (37.0-47.0); Hemoglobin 10.6 g/dl (12.0-16.0); Mean Corpuscular Hemoglobin 30.7 pg (25.0-34.0); Mean Corpuscular Hgb Conc 35.5 g/dL (32.0-36.0); Mean Corpuscular Volume 86.7 fL (80.0-100.0); Mean Platelet Volume 8.8 fL (9.4-12.4); Platelet Count 273 K/uL (130-400); RDW Coefficient of Variation 14.2 % (11.5-14.5); RDW Standard Deviation 44.3 fL (36.4-46.3); Red Blood Count 3.45 M/uL (4.20-5.40); White Blood Count 6.59 K/ul (4.8-10.8)
[2023-02-20] MEDS ORDERED: POTASSIUM CHLORIDE PWD 20 MEQ PACK PO SCH (09:00)
[2023-02-20 09:07] LABS: Albumin Globulin Ratio 0.8 (0.9-2); Albumin Level 3.1 gm/dl (3.4-5.0); BUN Creatinine Ratio 12.9 (10-20); Bilirubin,Total 0.8 mg/dl (0.2-1.0); Calcium 13.9 mg/dl (8.6-10.3); Creatinine Clr Calc Pharmacy 66.7 ml/min; Est GFR (African American) 55.9 ml/min; Est GFR (Non-African American) 48.3 ml/min; Magnesium 1.5 mg/dl (1.7-2.4); Phosphorus 3.4 mg/dl (2.5-4.9); Potassium 3.2 mmol/L (3.5-5.1); Total Protein 7.1 gm/dl (6.0-8.3)
[2023-02-20] MEDS ORDERED: MAGNESIUM SULFATE / D5W 1 GM/100 ML BAG IV ONE (09:29)
[2023-02-20] MEDS: CALCITONIN SALMON 400 UNITS/2 ML SQ SCH ×2 (10:15→22:02)
[2023-02-20] MEDS: POTASSIUM CHLORIDE / WTR 10 MEQ/100 ML PLCT IV SCH ×2 (10:16→11:20)
--- NOTE | 2023-02-20 11:25 | Hospitalist Progress Note ---
Date of Service February 20, 2023 Assessment & Plan (1) Hypercalcemia: (2) Weakness: (3) Metastatic breast cancer: (4) Diabetes: Plan Ms. Vega is a 48-year-old female past med history significant for metastatic breast cancer, diabetes ,hypothyroidism with chronic nausea and vomiting, recent cholecystectomy, and ongoing issues with hypercalcemia being admitted for work up of hypercalcemia noted on labs at Heme/Onc appointment this afternoon. Patient with bony mets, severe vitamin d deficiency, and issues with PO intake, all potentially contributing to presentation Patient still RSV positive; however, asymptomatic and symptomatically much improved since prior admission. #Hypercalcemia #Severe Vitamin D Deficiency Ca 14.2 on admission, 13.6 this morning Vitamin D panel notable low across the board, pth WNL on 02/07 50KU d2 q 7 days now as deficiency likely contributing Increased IVF to 150cc/h I discussed giving calcitonin with Pattern Changer And [employer] Dr Alvarado. He recommends giving 2 doses 2 doses ordered via pharm Monitor Calcium with BMP this afternoon and tonight #Progressive weakness Likely from ongoing illness PT/OT #RSV Infection Supportive care Droplet precautions #Otorrhea, s/p severe otitis media infection Improvement in bilateral purulent otorrhea Continue ciprodex BID for 2 more days, reassess Follow up for improvement and need for IP ENT if failure to improve #BHAVANA Cr was 1.39 on admission, 1.32 this morning IVF increased to 150cc/h Encourage po intake Monitor BMP Avoid nephrotoxic agents #Hypomagnesemia #Hypokalemia Replete and monitor #Chronic nausea and vomiting #S/p lap bart 01/11 Monitor. 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 Newby other than radiation; seeking OP second opinion at [place] #Chronic Normocytic anemia Hb is 10.6 today Monitor #Unintentional Weight loss #Morbid obesity BMI 38.9 DVT prophylaxis: heparin sq CODE STATUS: DNR/DNI Dispo: Med/Surg with tele I spent a total of 50 minutes coordinating, documenting and providing care for this patient excluding time spent in performance of separately billed services Admission and Anticipated Discharge Date Admission Date: February 19, 2023 Subjective Patient seen and examined Reports feeling better today Reports no dizziness on walking to the bathroom today Still feels weak but improved No nausea or vomiting this AM Denied abd pain. Reports anorexia Denied chest pain, SOB, congestion, sore throat Reports some dry cough Denied dysuria, freq, urgency Physical Exam Constitutional: + well hydrated; no acute distress Eyes: PERRL, conjunctivae normal, anicteric sclerae ENMT: external ear and nose normal, oropharynx normal Respiratory: normal respiratory effort, lungs clear to auscultation Cardiovascular: Rate/Rhythm: regular rate and regular rhythm S1 S2 Gastrointestinal (Abdomen): normal bowel sounds, soft, nontender, no hepatosplenomegaly Musculoskeletal: No pedal edema Neurologic: PERRL, EOMI, accommodation nl, no face palsy, no dysarthria Psychiatric: A+Ox3, euthymic affect Results & Data Results & Data Vital Signs (Past 12 Hours) Vital Signs Temp Pulse Pulse Pulse Resp BP Pulse Ox 02/20/23 07:56 36.8 C 82 14 147/89 H 98 02/20/23 05:59 79 02/20/23 04:08 37.0 C 91 H 18 149/85 H 94 02/20/23 03:15 94 H 02/20/23 00:28 36.9 C 101 H 18 141/77 H 98 O2 Del Method 02/20/23 07:56 Room Air 02/20/23 05:59 02/20/23 04:08 Room Air 02/20/23 03:15 02/20/23 00:28 Room Air Laboratory Results Abnormal lab results 02/19/23 02/19/23 02/19/23 Range/Units 16:30 19:08 22:22 RBC (4.20-5.40) M/uL Hgb (12.0-16.0) g/dl Hct (37.0-47.0) % MPV (9.4-12.4) fL Sodium 133 L (136-145) mmol/L Potassium 3.3 L (3.5-5.1) mmol/L Chloride 96 L (98-107) mmol/L Creatinine 1.37 H (0.6-1.2) mg/dl Glucose 210 H (70-99(Fasting)) mg/dl POC Glucose (70-99) mg/dl Calcium 13.6 H* (8.6-10.3) mg/dl Ionized Calcium (1.12-1.32) mmol/L Magnesium (1.7-2.4) mg/dl Alkaline Phosphatase 116 H (34-104) U/L Albumin 3.2 L (3.4-5.0) gm/dl Globulin 4.1 H (2.5-4.0) gm/dl Albumin/Globulin Ratio 0.8 L (0.9-2) Urine Appearance Turbid A (Clear) Urine Blood Trace H (Negative) Ur Leukocyte Esterase 2+ H (Negative) Urine WBC (Auto) >30 H (0-5) /hpf U Epithel Cells (Auto) >30 H (0-5) /lpf Urine Bacteria (Auto) 1+ H (Negative) Amorphous Sediment Present A (None Prsent) RSV (RT-PCR) Positive A* (Neg) 02/19/23 02/19/23 02/20/23 Range/Units 22:45 23:58 08:17 RBC (4.20-5.40) M/uL Hgb (12.0-16.0) g/dl Hct (37.0-47.0) % MPV (9.4-12.4) fL Sodium (136-145) mmol/L Potassium (3.5-5.1) mmol/L Chloride (98-107) mmol/L Creatinine (0.6-1.2) mg/dl Glucose (70-99(Fasting)) mg/dl POC Glucose 182 H 134 H (70-99) mg/dl Calcium (8.6-10.3) mg/dl Ionized Calcium 1.85 H* (1.12-1.32) mmol/L Magnesium (1.7-2.4) mg/dl Alkaline Phosphatase (34-104) U/L Albumin (3.4-5.0) gm/dl Globulin (2.5-4.0) gm/dl Albumin/Globulin Ratio (0.9-2) Urine Appearance (Clear) Urine Blood (Negative) Ur Leukocyte Esterase (Negative) Urine WBC (Auto) (0-5) /hpf U Epithel Cells (Auto) (0-5) /lpf Urine Bacteria (Auto) (Negative) Amorphous Sediment (None Prsent) RSV (RT-PCR) (Neg) 02/20/23 02/20/23 Range/Units 08:24 12:18 RBC 3.45 L (4.20-5.40) M/uL Hgb 10.6 L (12.0-16.0) g/dl Hct 29.9 L (37.0-47.0) % MPV 8.8 L (9.4-12.4) fL Sodium 135 L (136-145) mmol/L Potassium 3.2 L (3.5-5.1) mmol/L Chloride (98-107) mmol/L Creatinine 1.32 H (0.6-1.2) mg/dl Glucose 129 H (70-99(Fasting)) mg/dl POC Glucose 164 H (70-99) mg/dl Calcium 13.9 H* (8.6-10.3) mg/dl Ionized Calcium (1.12-1.32) mmol/L Magnesium 1.5 L (1.7-2.4) mg/dl Alkaline Phosphatase 109 H (34-104) U/L Albumin 3.1 L (3.4-5.0) gm/dl Globulin (2.5-4.0) gm/dl Albumin/Globulin Ratio 0.8 L (0.9-2) Urine Appearance (Clear) Urine Blood (Negative) Ur Leukocyte Esterase (Negative) Urine WBC (Auto) (0-5) /hpf U Epithel Cells (Auto) (0-5) /lpf Urine Bacteria (Auto) (Negative) Amorphous Sediment (None Prsent) RSV (RT-PCR) (Neg)
[2023-02-20] MEDS ORDERED: ONDANSETRON INJ 2 MG/ML 2 ML VIAL IV PRN (12:30)
--- NOTE | 2023-02-20 12:46 | Nephrology Consultation ---
Date of Consultation February 20, 2023 Assessment & Plan (1) Hypercalcemia: This AM her calcium further declined ; PTH , VD2 and VD3 are all low. Hypercalcemia: . suspect this is multifactorial >> breast cancer w/ known bone mets, dehydration in setting of hyperglycemia - She is making urine and apperas to be comfortable. Continue on NS at 150 mls/hr - Give 2 doses of calcitonin 12 hr apart. can give 80 mg IV lasix if calcium still elevated on the next check. - 8 hourly calcium - She will need to ne started on VD supplement once her Calcium is in the safe levels. - No urgent need for Bisphosphoanates at the moment as her calcium levels have resolved with these manouvers in the past - Daily bmp (2) Acute kidney injury: 2/ Hypercalcemia which causes direct vasoconstriction and Volume depletion-- Could be ATN now as her functions has not improved with fluids. -Daily bmp - Tx Hyper richard as above. -Replace electrolytes, keep K > 4 and Magnesium > 2. - Continue on fluids for now as she continues to make urine. (3) RSV (respiratory syncytial virus infection): (4) Metastatic breast cancer: History of Present Illness Reason for Consultation: 48 y/o F seen for hypercalcemia was admitted yesterday with presenting calcium of 14.2. She was referred to [facility] ED after found to have abnormal labs at Heme/Onc appointment . Recent hospital admiccion with Hypercalcemia, RSV/otorrhea/vomiting, Hypercalcemia has resolved with Iv fluids on that Occasion.She states her nausea is better handled and denied any recent vomiting. In the ED, vitals were notable for BP of SBP 120-130s, HR of 80-90s and O2 sat of 100 on RA PMH includes Stage IV metastatic breast cancer not currently on chemotherapy, hypothyroid, DM,chronic nausea and vomiting, recent cholecystectomy She has been on NS saline, UOP has been good, Asymptomatic but looks volume depleted. Attending Physician: Maru Zavala MD Allergies Allergy/AdvReac Type Severity Reaction Status Date / Time No Known Allergies Allergy Verified 02/19/23 16:39 Home Medications Medication Instructions Recorded Confirmed Type denosumab 120 mg/1.7 mL (70 mg/mL) 120 mg subcut .Q 3months 01/01/22 02/19/23 History subcutaneous solution (Xgeva) blood-glucose sensor (Dexcom G6 12/17/22 02/19/23 History Sensor device) blood-glucose transmitter (Dexcom 12/17/22 02/19/23 History G6 Transmitter device) insulin aspart U-100 100 unit/mL 10 unit subcut AC 12/17/22 02/19/23 History (3 mL) subcutaneous pen (Novolog FlexPen U-100 Insulin aspart) insulin glargine 100 unit/mL (3 40 unit subcut BID 12/17/22 02/19/23 History mL) subcutaneous pen (Lantus Solostar U-100 Insulin) ondansetron HCl 8 mg tablet 8 mg PO Q12H PRN Nausea 12/17/22 02/19/23 History pen needle, diabetic 32 gauge x 12/17/22 02/19/23 History " (BD Ultra-Fine Aletha Pen Needle) oxycodone 10 mg tablet 10 - 20 mg PO Q4 PRN Pain 01/07/23 02/19/23 History promethazine 25 mg rectal 25 mg SC Q8H PRN nausea and 01/26/23 02/19/23 Rx suppository vomiting #12 ea promethazine 25 mg tablet 25 mg PO TID PRN nausea and 01/26/23 02/19/23 Rx vomiting #20 tabs ciprofloxacin 0.3 %-dexamethasone 4 drp otic (ear) BID 10 days #7.5 02/10/23 02/19/23 Rx 0.1 % ear drops,suspension mL levothyroxine 75 mcg tablet 75 mcg PO DAILYBB 30 days #30 tabs 02/10/23 02/19/23 Rx (Synthroid) potassium chloride 20 mEq oral 20 meq PO DAILY 10 days #10 ea 02/10/23 02/19/23 Rx packet (Klor-Con) Patient History Medical History History of COVID-19 12/2020 + 12/2021 > residual taste dysfunction and feeling of need to clear throat Bilateral breast cancer Arthritis Liver spots "Mets from cancer" Depression with anxiety Peripheral neuropathy Heart palpitations R/t anxiety per patient Type II diabetes mellitus History of small bowel obstruction Hx bowel obstruction Hypothyroidism No current meds Breast cancer (11/12/15) Stage 4 (+ mets) Surgical History History of tubal ligation Port-A-Cath in place (04/30/22) Insertion Access Port left subclavian with Fluoroscopy(Left) - Chad Banuelos DO History of surgery Left Excisional Debridement of Buttock Wound Nausea and vomiting after administration of anesthetic agent "EXTREME" History of vascular access device PORT INSERTION/REMOVAL History of tooth extraction History of endometrial ablation History of bowel resection D/T BOWEL OBSTRUCTION History of lung surgery Left thoracoscopy with wedge resection left lower lobe Dr. Damico 03/29/2018 History of dilatation and curettage H/O hernia repair Hx of section x3 S/P lumpectomy, left breast LEFT ARM LIMB RESTRICTION Family History Mother , 77yo Diabetes Heart disease Aortic valve replacement Mitral valve calcifications UTI (urinary tract infection) Father , 62yo Diabetes Myocardial infarction Hypertension Stroke Brother Diabetes Myocardial infarction Cardiac stents Pacemaker Hypertension Sister No problems noted. Daughter No problems noted. Son No problems noted. Son No problems noted. 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 RESPIRATORY: clear to auscultation bilaterally, no crackles, rales or wheezes, normal respiratory effort CARDIOVASCULAR: regular rate and rhythm, Systolic murner, no JVD, no peripheral edema GASTROINTESTINAL: soft, nontender, ND, no guarding SKIN: warm and dry NEUROLOGIC:Grossly intact, no sensory deficit EXTERMITIES- No Pedal Edema Results & Data Vital Signs (Past 12 Hours) Vital Signs Temp Pulse Pulse Resp BP Pulse Ox O2 Del Method 02/20/23 11:36 36.4 C L 90 15 162/98 H 97 Room Air 02/20/23 07:56 36.8 C 82 14 147/89 H 98 Room Air 02/20/23 05:59 79 02/20/23 04:08 37.0 C 91 H 18 149/85 H 94 Room Air 02/20/23 03:15 94 H Laboratory Results 02/20/23 08:24 02/20/23 08:24
[2023-02-20 15:50] LABS: BUN Creatinine Ratio 12.2 (10-20); Calcium 12.4 mg/dl (8.6-10.3); Creatinine Clr Calc Pharmacy 71.5 ml/min; Est GFR (African American) 60.9 ml/min; Est GFR (Non-African American) 52.6 ml/min; Potassium 3.2 mmol/L (3.5-5.1)
[2023-02-20 21:20] LABS: BUN Creatinine Ratio 12.8 (10-20); Calcium 10.8 mg/dl (8.6-10.3); Creatinine Clr Calc Pharmacy 80.7 ml/min; Est GFR (African American) 70.5 ml/min; Est GFR (Non-African American) 60.8 ml/min
[2023-02-21] MEDS: SODIUM CHLORIDE 0.9% 1,000 ML IV SCH ×4 (03:36→23:13)
[2023-02-21] MEDS: HEPARIN SOD 5,000 UNIT/0.5 ML VIAL SQ SCH ×3 (05:39→20:51)
[2023-02-21 06:37] LABS: Hematocrit (blood only) 27.9 % (37.0-47.0); Hemoglobin 10.1 g/dl (12.0-16.0); Mean Corpuscular Hemoglobin 30.8 pg (25.0-34.0); Mean Corpuscular Hgb Conc 36.2 g/dL (32.0-36.0); Mean Corpuscular Volume 85.1 fL (80.0-100.0); Mean Platelet Volume 8.8 fL (9.4-12.4); Platelet Count 257 K/uL (130-400); RDW Coefficient of Variation 14.1 % (11.5-14.5); RDW Standard Deviation 43.8 fL (36.4-46.3); Red Blood Count 3.28 M/uL (4.20-5.40); White Blood Count 6.53 K/ul (4.8-10.8)
[2023-02-21 07:00] LABS: BUN Creatinine Ratio 11.4 (10-20); Calcium 11.3 mg/dl (8.6-10.3); Creatinine Clr Calc Pharmacy 80.1 ml/min; Est GFR (African American) 73.8 ml/min; Est GFR (Non-African American) 63.6 ml/min; Potassium 3.1 mmol/L (3.5-5.1)
[2023-02-21] MEDS: POTASSIUM CHLORIDE PWD 20 MEQ PACK PO SCH (08:29)
[2023-02-21] MEDS: INSULIN ASPART PER UNIT CHARGE SC SCH ×4 (08:29→20:44)
[2023-02-21 08:47] LABS: Phosphorus 2.1 mg/dl (2.5-4.9)
[2023-02-21] MEDS ORDERED: POTASSIUM PHOS 3 MMOL/1 ML INFUSION IV STA ×2 (09:12)
--- NOTE | 2023-02-21 09:29 | Hospitalist Progress Note ---
Date of Service February 21, 2023 Assessment & Plan (1) Hypercalcemia: (2) Weakness: (3) Metastatic breast cancer: (4) Diabetes: Plan Ms. Vega is a 48-year-old female past med history significant for metastatic breast cancer, diabetes ,hypothyroidism with chronic nausea and vomiting, recent cholecystectomy, and ongoing issues with hypercalcemia being admitted for work up of hypercalcemia noted on labs at Heme/Onc appointment this afternoon. Patient with bony mets, severe vitamin d deficiency, and issues with PO intake, all potentially contributing to presentation Patient still RSV positive; however, asymptomatic and symptomatically much improved since prior admission. #Hypercalcemia #Severe Vitamin D Deficiency Ca 14.2 on admission, 11.3 this morning Vitamin D panel notable low across the board, pth WNL on 02/07 Continue Vit D 50,000U q7D Continue IVF to 150cc/h Got 2 doses of calcitonin on 02/20/23 Get ionized calcium Monitor Calcium with BMP this afternoon and tonight #Progressive weakness Likely from ongoing illness PT/OT #RSV Infection Supportive care Droplet precautions #Otorrhea, s/p severe otitis media infection Improvement in bilateral purulent otorrhea Continue ciprodex BID for 2 more days, reassess Follow up for improvement and need for IP ENT if failure to improve #BHAVANA Cr was 1.39 on admission, 1.05 this morning Continue IVF Encourage po intake Monitor BMP Avoid nephrotoxic agents #Hypomagnesemia #Hypokalemia #Hypophosphatemia Replete and monitor #Chronic nausea and vomiting #S/p lap bart 01/11 Monitor. 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 Newby other than radiation; seeking OP second opinion at [place] #Chronic Normocytic anemia Hb is 10.1 today Monitor #Unintentional Weight loss #Morbid obesity BMI 38.9 DVT prophylaxis: heparin sq CODE STATUS: DNR/DNI Dispo: Med/Surg with tele I spent a total of 50 minutes coordinating, documenting and providing care for this patient excluding time spent in performance of separately billed services Admission and Anticipated Discharge Date Admission Date: February 19, 2023 Subjective Patient seen and examined Denied any dizziness or headache Still reports generalized weakness Vomited earlier this AM before breakfast Denied abd pain. Reports anorexia Denied chest pain, SOB, congestion, sore throat Reports cough is improving Denied dysuria, freq, urgency Physical Exam Constitutional: + well hydrated; no acute distress Eyes: PERRL, conjunctivae normal, anicteric sclerae ENMT: external ear and nose normal, oropharynx normal Respiratory: normal respiratory effort, lungs clear to auscultation Cardiovascular: Rate/Rhythm: regular rate and regular rhythm S1 S2 Gastrointestinal (Abdomen): normal bowel sounds, soft, nontender, no hepatosplenomegaly Musculoskeletal: No pedal edema Neurologic: PERRL, EOMI, accommodation nl, no face palsy, no dysarthria Psychiatric: A+Ox3, euthymic affect Results & Data Results & Data Vital Signs (Past 12 Hours) Vital Signs Temp Pulse Pulse Resp BP Pulse Ox O2 Del Method 02/21/23 07:45 36.3 C L 86 14 139/90 96 Room Air 02/21/23 06:00 81 02/21/23 03:45 36.7 C 93 H 18 127/85 95 Room Air 02/20/23 23:31 92 H 02/20/23 23:10 36.8 C 87 18 125/82 97 Room Air Laboratory Results Abnormal lab results 02/20/23 02/20/23 02/20/23 Range/Units 12:18 14:37 17:11 RBC (4.20-5.40) M/uL Hgb (12.0-16.0) g/dl Hct (37.0-47.0) % MCHC (32.0-36.0) g/dL MPV (9.4-12.4) fL Potassium 3.2 L (3.5-5.1) mmol/L Creatinine 1.23 H (0.6-1.2) mg/dl Glucose 172 H (70-99(Fasting)) mg/dl POC Glucose 164 H 143 H (70-99) mg/dl Calcium 12.4 H* (8.6-10.3) mg/dl Phosphorus (2.5-4.9) mg/dl 02/20/23 02/20/23 02/21/23 Range/Units 20:24 21:04 06:10 RBC 3.28 L (4.20-5.40) M/uL Hgb 10.1 L (12.0-16.0) g/dl Hct 27.9 L (37.0-47.0) % MCHC 36.2 H (32.0-36.0) g/dL MPV 8.8 L (9.4-12.4) fL Potassium 3.0 L 3.1 L (3.5-5.1) mmol/L Creatinine (0.6-1.2) mg/dl Glucose 147 H 102 H (70-99(Fasting)) mg/dl POC Glucose 155 H (70-99) mg/dl Calcium 10.8 H 11.3 H (8.6-10.3) mg/dl Phosphorus 2.1 L D (2.5-4.9) mg/dl 02/21/23 Range/Units 08:12 RBC (4.20-5.40) M/uL Hgb (12.0-16.0) g/dl Hct (37.0-47.0) % MCHC (32.0-36.0) g/dL MPV (9.4-12.4) fL Potassium (3.5-5.1) mmol/L Creatinine (0.6-1.2) mg/dl Glucose (70-99(Fasting)) mg/dl POC Glucose 117 H (70-99) mg/dl Calcium (8.6-10.3) mg/dl Phosphorus (2.5-4.9) mg/dl
[2023-02-21] MEDS ORDERED: POTASSIUM PHOSPHATE 40 MMOL in SODIUM CHLORIDE 0.9% 1,000 ML IV ONE (09:30)
[2023-02-21] MEDS: LANTUS PER UNIT CHARGE SQ SCH ×2 (09:41→20:49)
[2023-02-21] MEDS: CIPRO 0.3%/DEXAMETHASONE 0.1% OTIC SUSP 7.5ML OT SCH ×2 (09:41→20:49)
[2023-02-21] MEDS: LEVOTHYROXINE SODIUM 75 MCG TABLET PO SCH (09:41)
--- NOTE | 2023-02-21 09:52 | Nephrology Progress Note ---
Date of Service February 21, 2023 Assessment & Plan (1) Hypercalcemia: Plan: This AM her calcium further declined ; PTH , VD2 and VD3 are all low. Hypercalcemia: . suspect this is multifactorial >> breast cancer w/ known bone mets, dehydration in setting of hyperglycemia - She is making urine and apperas to be comfortable. Continue on NS at 150 mls/hr - Given 2 doses of calcitonin-- Calcium better. -can give 80 mg IV lasix after correcting the potassium. - 8 hourly ionized calcium - She will need to be started on VD supplement once her Calcium is in the safe levels. - No urgent need for Bisphosphoanates at the moment as her calcium levels have resolved with these manouvers in the past - Daily bmp (2) Acute kidney injury: Plan: 2/ Hypercalcemia which causes direct vasoconstriction and Volume depletion-- Improved -Daily bmp - Tx Hyper richard as above. -Replace electrolytes, keep K > 4 and Magnesium > 2. - Continue on fluids for now as she continues to make urine. (3) RSV (respiratory syncytial virus infection): (4) Metastatic breast cancer: Admission and Anticipated Discharge Date Admission Date: February 19, 2023 Subjective Patient seen and examined Reports feeling better today NO nausea/ Vomiting Review of Systems 2 Review of Systems: ill appearing, but comfortable no N/V Physical Exam 2 Physical Exam: CONSTITUTIONAL: Comfortable. RESPIRATORY: clear to auscultation bilaterally, no crackles, rales or wheezes, normal respiratory effort CARDIOVASCULAR: regular rate and rhythm, Systolic murner, no JVD, no peripheral edema GASTROINTESTINAL: soft, nontender, ND, no guarding SKIN: warm and dry NEUROLOGIC:Grossly intact, no sensory deficit EXTERMITIES- No Pedal Edema Results & Data Vital Signs (Past 12 Hours) Vital Signs Temp Pulse Pulse Resp BP Pulse Ox O2 Del Method 02/21/23 07:45 36.3 C L 86 14 139/90 96 Room Air 02/21/23 06:00 81 02/21/23 03:45 36.7 C 93 H 18 127/85 95 Room Air 02/20/23 23:31 92 H 02/20/23 23:10 36.8 C 87 18 125/82 97 Room Air Laboratory Results 02/21/23 06:10 02/21/23 06:10
[2023-02-21 11:02] LABS: Magnesium 1.5 mg/dl (1.7-2.4)
[2023-02-21 15:05] LABS: BUN Creatinine Ratio 9.5 (10-20); Calcium 10.9 mg/dl (8.6-10.3); Creatinine Clr Calc Pharmacy 80.1 ml/min; Est GFR (African American) 73.8 ml/min; Est GFR (Non-African American) 63.6 ml/min; Potassium 3.4 mmol/L (3.5-5.1)
[2023-02-21] MEDS ORDERED: POTASSIUM CHLORIDE / WTR 10 MEQ/100 ML PLCT IV SCH (16:30)
[2023-02-21] MEDS: MAGNESIUM SULFATE / D5W 1 GM/100 ML BAG IV SCH ×2 (16:59→19:24)
[2023-02-21] MEDS: PROMETHAZINE HCL 6.25 MG in SODIUM CHLORIDE 0.9% 50 ML IV PRN ×2 (17:07→23:13)
[2023-02-21 21:43] LABS: BUN Creatinine Ratio 9.2 (10-20); Calcium 10.8 mg/dl (8.6-10.3); Creatinine Clr Calc Pharmacy 77.2 ml/min; Est GFR (African American) 70.5 ml/min; Est GFR (Non-African American) 60.8 ml/min; Potassium 3.4 mmol/L (3.5-5.1)
[2023-02-21] MEDS ORDERED: POTASSIUM CHLORIDE CRTAB 20 MEQ TABCR PO STA (22:17)
[2023-02-21] MEDS: POTASSIUM CHLORIDE / WTR 10 MEQ/100 ML PLCT IV SCH ×2 (23:02→23:36)
[2023-02-22] MEDS: HEPARIN SOD 5,000 UNIT/0.5 ML VIAL SQ SCH ×3 (05:04→20:49)
[2023-02-22] MEDS: LEVOTHYROXINE SODIUM 75 MCG TABLET PO SCH (05:05)
[2023-02-22] MEDS: SODIUM CHLORIDE 0.9% 1,000 ML IV SCH ×4 (05:27→23:25)
[2023-02-22 05:56] LABS: Hematocrit (blood only) 30.4 % (37.0-47.0); Hemoglobin 10.5 g/dl (12.0-16.0); Mean Corpuscular Hemoglobin 30.3 pg (25.0-34.0); Mean Corpuscular Hgb Conc 34.5 g/dL (32.0-36.0); Mean Corpuscular Volume 87.6 fL (80.0-100.0); Platelet Count 286 K/uL (130-400); RDW Coefficient of Variation 14.3 % (11.5-14.5); RDW Standard Deviation 45.4 fL (36.4-46.3); Red Blood Count 3.47 M/uL (4.20-5.40); White Blood Count 6.81 K/ul (4.8-10.8)
[2023-02-22 06:17] LABS: BUN Creatinine Ratio 9.1 (10-20); Calcium 11.4 mg/dl (8.6-10.3); Creatinine Clr Calc Pharmacy 75.4 ml/min; Est GFR (African American) 69.7 ml/min; Est GFR (Non-African American) 60.2 ml/min; Magnesium 1.9 mg/dl (1.7-2.4); Phosphorus 3.2 mg/dl (2.5-4.9); Potassium 3.2 mmol/L (3.5-5.1)
[2023-02-22] MEDS: POTASSIUM CHLORIDE PWD 20 MEQ PACK PO SCH (07:00)
[2023-02-22] MEDS: POTASSIUM CHLORIDE / WTR 10 MEQ/100 ML PLCT IV SCH ×4 (07:13→10:00)
[2023-02-22] MEDS: INSULIN ASPART PER UNIT CHARGE SC SCH ×4 (08:27→20:47)
[2023-02-22] MEDS: LANTUS PER UNIT CHARGE SQ SCH ×2 (08:27→20:47)
--- NOTE | 2023-02-22 12:26 | Hospitalist Progress Note ---
Date of Service February 22, 2023 Assessment & Plan (1) Hypercalcemia: (2) Weakness: (3) Metastatic breast cancer: (4) Diabetes: Plan Ms. Vega is a 48-year-old female past med history significant for metastatic breast cancer, diabetes ,hypothyroidism with chronic nausea and vomiting, recent cholecystectomy, and ongoing issues with hypercalcemia being admitted for work up of hypercalcemia noted on labs at Heme/Onc appointment this afternoon. Patient with bony mets, severe vitamin d deficiency, and issues with PO intake, all potentially contributing to presentation Patient still RSV positive; however, asymptomatic and symptomatically much improved since prior admission. #Hypercalcemia #Severe Vitamin D Deficiency Ca 14.2 on admission, 11.4 this morning Vitamin D panel notable low across the board, pth WNL on 02/07 Continue Vit D 50,000U q7D Continue IVF NSS 150cc/h Got 2 doses of calcitonin on 02/20/23 Calcium remains elevated I discussed use of bisphosphonates with [employer] Sheets Supervisor Dr Alvarado He recommends IV zoledronate IV zoledronic acid 4mg x1 ordered #Progressive weakness Likely from ongoing illness Awaiting PT/OT #RSV Infection Supportive care Droplet precautions #Otorrhea, s/p severe otitis media infection Improvement in bilateral purulent otorrhea Continue ciprodex BID for 2 more days, reassess Follow up for improvement and need for IP ENT if failure to improve #BHAVANA Cr was 1.39 on admission, 1.1 this morning Continue IVF Encourage po intake Monitor BMP Avoid nephrotoxic agents #Hypomagnesemia #Hypokalemia #Hypophosphatemia K is 3.2 this AM Replete and monitor #Chronic nausea and vomiting #S/p lap bart 01/11 PRN antiemetics #Uncontrolled Diabetes Home 25 U BID and 10lispro AC Continue on Lantus 25mg BID, ISS carb ratio of 6, correction factor of 20, glucose goal 110-140 #Hypothyroidism Continue 75mcg levothyroxine daily #Metastatic breast cancer #Mets to ribs with bilateral pathologic rib fractures Continue prn oxycodone No further systemic option per Dr. Newby other than radiation; seeking OP second opinion at [place] #Chronic Normocytic anemia Hb is 10.5 today Monitor #Unintentional Weight loss #Morbid obesity BMI 38.9 DVT prophylaxis: heparin sq CODE STATUS: DNR/DNI Dispo: Med/Surg with tele I spent a total of 50 minutes coordinating, documenting and providing care for this patient excluding time spent in performance of separately billed services Admission and Anticipated Discharge Date Admission Date: February 19, 2023 Subjective Patient seen and examined Denied any complaints Reports weakness Denied nausea, vomiting, abd pain diarrhea Reports anorexia Denied chest pain, SOB, congestion, sore throat Denied any cough today Denied dysuria, freq, urgency Physical Exam Constitutional: + well hydrated; no acute distress Eyes: PERRL, conjunctivae normal, anicteric sclerae ENMT: external ear and nose normal, oropharynx normal Respiratory: normal respiratory effort, lungs clear to auscultation Cardiovascular: Rate/Rhythm: regular rate and regular rhythm S1 S2 Gastrointestinal (Abdomen): normal bowel sounds, soft, nontender, no hepatosplenomegaly Musculoskeletal: No pedal edema Neurologic: PERRL, EOMI, accommodation nl, no face palsy, no dysarthria AOx3 Results & Data Results & Data Vital Signs (Past 12 Hours) Vital Signs Temp Pulse Pulse Resp BP Pulse Ox O2 Del Method 02/22/23 11:48 36.5 C 88 16 153/95 H 97 Room Air 02/22/23 07:59 36.7 C 87 16 128/82 96 Room Air 02/22/23 06:00 82 02/22/23 03:25 36.8 C 92 H 20 132/86 94 Room Air Laboratory Results Abnormal lab results 02/21/23 02/21/23 02/21/23 Range/Units 14:36 17:00 20:35 RBC (4.20-5.40) M/uL Hgb (12.0-16.0) g/dl Hct (37.0-47.0) % MPV (9.4-12.4) fL Potassium 3.4 L (3.5-5.1) mmol/L BUN/Creatinine Ratio 9.5 L (10-20) Glucose 105 H (70-99(Fasting)) mg/dl POC Glucose 105 H 138 H (70-99) mg/dl Calcium 10.9 H (8.6-10.3) mg/dl Ionized Calcium (1.12-1.32) mmol/L 02/21/23 02/22/23 02/22/23 Range/Units 21:09 04:52 08:11 RBC 3.47 L (4.20-5.40) M/uL Hgb 10.5 L (12.0-16.0) g/dl Hct 30.4 L (37.0-47.0) % MPV 9.0 L (9.4-12.4) fL Potassium 3.4 L 3.2 L (3.5-5.1) mmol/L BUN/Creatinine Ratio 9.2 L 9.1 L (10-20) Glucose 128 H (70-99(Fasting)) mg/dl POC Glucose 113 H (70-99) mg/dl Calcium 10.8 H 11.4 H (8.6-10.3) mg/dl Ionized Calcium 1.57 H (1.12-1.32) mmol/L 02/22/ Range/Units 12:18 RBC (4.20-5.40) M/uL Hgb (12.0-16.0) g/dl Hct (37.0-47.0) % MPV (9.4-12.4) fL Potassium (3.5-5.1) mmol/L BUN/Creatinine Ratio (10-20) Glucose (70-99(Fasting)) mg/dl POC Glucose 162 H (70-99) mg/dl Calcium (8.6-10.3) mg/dl Ionized Calcium (1.12-1.32) mmol/L
[2023-02-22] MEDS ORDERED: ZOLEDRONIC ACID 4 MG in SODIUM CHLOR 0.9% MINI-B 100 ML IV ONE (13:45)
[2023-02-23] MEDS: HEPARIN SOD 5,000 UNIT/0.5 ML VIAL SQ SCH ×3 (05:31→21:34)
[2023-02-23] MEDS: LEVOTHYROXINE SODIUM 75 MCG TABLET PO SCH (05:31)
[2023-02-23] MEDS: SODIUM CHLORIDE 0.9% 1,000 ML IV SCH ×3 (07:41→21:33)
[2023-02-23] MEDS: POTASSIUM CHLORIDE PWD 20 MEQ PACK PO SCH (07:42)
[2023-02-23 08:32] LABS: Hematocrit (blood only) 28.4 % (37.0-47.0); Hemoglobin 9.9 g/dl (12.0-16.0); Mean Corpuscular Hemoglobin 30.4 pg (25.0-34.0); Mean Corpuscular Hgb Conc 34.9 g/dL (32.0-36.0); Mean Corpuscular Volume 87.1 fL (80.0-100.0); Mean Platelet Volume 8.8 fL (9.4-12.4); Platelet Count 229 K/uL (130-400); RDW Coefficient of Variation 14.1 % (11.5-14.5); RDW Standard Deviation 44.8 fL (36.4-46.3); Red Blood Count 3.26 M/uL (4.20-5.40)
[2023-02-23 08:42] LABS: BUN Creatinine Ratio 11.2 (10-20); Calcium 11.2 mg/dl (8.6-10.3); Creatinine Clr Calc Pharmacy 77.1 ml/min; Est GFR (African American) 72.1 ml/min; Est GFR (Non-African American) 62.2 ml/min; Magnesium 1.4 mg/dl (1.7-2.4); Phosphorus 3.6 mg/dl (2.5-4.9); Potassium 3.2 mmol/L (3.5-5.1)
[2023-02-23] MEDS: LANTUS PER UNIT CHARGE SQ SCH ×2 (08:50→21:34)
[2023-02-23] MEDS: INSULIN ASPART PER UNIT CHARGE SC SCH ×4 (08:50→21:34)
[2023-02-23] MEDS: POTASSIUM CHLORIDE / WTR 10 MEQ/100 ML PLCT IV SCH ×4 (09:35→12:55)
[2023-02-23] MEDS: MAGNESIUM SULFATE / D5W 1 GM/100 ML BAG IV SCH ×2 (09:35→11:38)
--- NOTE | 2023-02-23 09:41 | Hospitalist Progress Note ---
Date of Service February 23, 2023 Assessment & Plan (1) Hypercalcemia: (2) Weakness: (3) Metastatic breast cancer: (4) Diabetes: Plan Ms. Vega is a 48-year-old female past med history significant for metastatic breast cancer, diabetes ,hypothyroidism with chronic nausea and vomiting, recent cholecystectomy, and ongoing issues with hypercalcemia being admitted for work up of hypercalcemia noted on labs at Heme/Onc appointment this afternoon. Patient with bony mets, severe vitamin d deficiency, and issues with PO intake, all potentially contributing to presentation Patient still RSV positive; however, asymptomatic and symptomatically much improved since prior admission. #Hypercalcemia #Severe Vitamin D Deficiency Ca 14.2 on admission, 11.2 this morning Vitamin D panel notable low across the board, pth WNL on 02/07 Continue Vit D 50,000U q7D Continue IVF NSS 150cc/h Got 2 doses of calcitonin on 02/20/23 Calcium remains elevated On 02/22/23, I discussed possible use of bisphosphonates with [employer] Dr Alvarado He recommends giving IV zoledronate IV zoledronic acid 4mg x1 was given on 02/22/23 Recheck BMP at 3pm today. Plan to give lasix once hypokalemia is corrected #Progressive weakness Likely from ongoing illness Awaiting PT/OT #RSV Infection Supportive care Droplet precautions #Otorrhea, s/p severe otitis media infection Improvement in bilateral purulent otorrhea Continue ciprodex BID for 2 more days, reassess Follow up for improvement and need for IP ENT if failure to improve #BHAVANA Cr was 1.39 on admission, 1.1 this morning Continue IVF Encourage po intake Monitor BMP Avoid nephrotoxic agents #Hypomagnesemia #Hypokalemia #Hypophosphatemia K is 3.2 this AM Aggressive hypokalemia repletion prior to trial of lasix as above Replete and monitor Patient does not like po repletion. 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 Newby other than radiation; seeking OP second opinion at [place] #Chronic Normocytic anemia Hb is 9.9 today Monitor #Unintentional Weight loss #Morbid obesity BMI 34.4 DVT prophylaxis: heparin sq CODE STATUS: DNR/DNI Dispo: Med/Surg with tele I spent a total of 50 minutes coordinating, documenting and providing care for this patient excluding time spent in performance of separately billed services Admission and Anticipated Discharge Date Admission Date: February 19, 2023 Subjective Patient seen and examined Reports mild cough, much improved Reports weakness Denied nausea, vomiting, abd pain, diarrhea. Last BM was 2 days ago Denied chest pain, SOB, congestion, sore throat Denied dysuria, freq, urgency Physical Exam Constitutional: + well hydrated; no acute distress Eyes: PERRL, conjunctivae normal, anicteric sclerae ENMT: external ear and nose normal, oropharynx normal Respiratory: normal respiratory effort, lungs clear to auscultation Cardiovascular: Rate/Rhythm: regular rate and regular rhythm S1 S2 Gastrointestinal (Abdomen): normal bowel sounds, soft, nontender, no hepatosplenomegaly Musculoskeletal: No pedal edema Neurologic: PERRL, EOMI, accommodation nl, no face palsy, no dysarthria Psychiatric: A+Ox3, euthymic affect Results & Data Results & Data Vital Signs (Past 12 Hours) Vital Signs Temp Pulse Pulse Resp BP Pulse Ox O2 Del Method 02/23/23 05:58 79 02/23/23 03:00 36.8 C 88 20 142/88 H 96 Room Air 02/23/23 01:08 88 02/22/23 22:17 Room Air 02/22/23 22:00 37.1 C 88 20 138/89 96 Room Air Laboratory Results Abnormal lab results 02/22/23 02/22/23 02/22/23 Range/Units 12:18 17:03 20:24 RBC (4.20-5.40) M/uL Hgb (12.0-16.0) g/dl Hct (37.0-47.0) % MPV (9.4-12.4) fL Sodium (136-145) mmol/L Potassium (3.5-5.1) mmol/L Glucose (70-99(Fasting)) mg/dl POC Glucose 162 H 195 H 254 H (70-99) mg/dl Calcium (8.6-10.3) mg/dl Magnesium (1.7-2.4) mg/dl 02/23/23 02/23/23 Range/Units 07:50 07:58 RBC 3.26 L (4.20-5.40) M/uL Hgb 9.9 L (12.0-16.0) g/dl Hct 28.4 L (37.0-47.0) % MPV 8.8 L (9.4-12.4) fL Sodium 135 L (136-145) mmol/L Potassium 3.2 L (3.5-5.1) mmol/L Glucose 122 H (70-99(Fasting)) mg/dl POC Glucose 141 H (70-99) mg/dl Calcium 11.2 H (8.6-10.3) mg/dl Magnesium 1.4 L (1.7-2.4) mg/dl
--- NOTE | 2023-02-23 12:56 | Nephrology Progress Note ---
Date of Service February 23, 2023 Assessment & Plan (1) Hypercalcemia: Plan: This AM her calcium is better ; PTH , VD2 and VD3 are all low. Hypercalcemia: . suspect this is multifactorial >> breast cancer w/ known bone mets, dehydration in setting of hyperglycemia - She is making urine and appears to be comfortable. Continue on NS at 150 mls/hr - Given 2 doses of calcitonin and Zolendric acid yesterday Calcium better. - 8 hourly ionized calcium - She will need to be started on VD supplement once her Calcium is in the safe levels. - Daily bmp (2) Acute kidney injury: Plan: 2/ Hypercalcemia which causes direct vasoconstriction and Volume depletion-- Improved -Daily bmp - Tx Hyper richard as above. -Replace electrolytes, keep K > 4 and Magnesium > 2. - Continue on fluids for now as she continues to make urine. (3) RSV (respiratory syncytial virus infection): (4) Metastatic breast cancer: Admission and Anticipated Discharge Date Admission Date: February 19, 2023 Subjective Patient seen and examined much improved Reports weakness Denied nausea, vomiting, abd pain, diarrhea. Denied dysuria, freq, urgency Review of Systems 2 Review of Systems: ill appearing, but comfortable no N/V Physical Exam 2 Physical Exam: CONSTITUTIONAL: Comfortable. RESPIRATORY: clear to auscultation bilaterally, no crackles, rales or wheezes, normal respiratory effort CARDIOVASCULAR: regular rate and rhythm, Systolic murner, no JVD, no peripheral edema GASTROINTESTINAL: soft, nontender, ND, no guarding SKIN: warm and dry NEUROLOGIC:Grossly intact, no sensory deficit EXTERMITIES- No Pedal Edema Results & Data Vital Signs (Past 12 Hours) Vital Signs Temp Pulse Pulse Resp BP Pulse Ox O2 Del Method 02/23/23 11:36 36.8 C 80 16 130/83 97 Room Air 02/23/23 07:40 36.4 C L 78 16 147/85 H 97 Room Air 02/23/23 05:58 79 02/23/23 03:00 36.8 C 88 20 142/88 H 96 Room Air 02/23/23 01:08 88 Laboratory Results 02/23/23 07:50 02/23/23 07:50
[2023-02-23 16:57] LABS: BUN Creatinine Ratio 12.3 (10-20); Calcium 10.4 mg/dl (8.6-10.3); Creatinine Clr Calc Pharmacy 77.8 ml/min; Est GFR (African American) 72.9 ml/min; Est GFR (Non-African American) 62.9 ml/min; Potassium 3.6 mmol/L (3.5-5.1)
[2023-02-24] MEDS: SODIUM CHLORIDE 0.9% 1,000 ML IV SCH ×4 (05:35→23:59)
[2023-02-24] MEDS: HEPARIN SOD 5,000 UNIT/0.5 ML VIAL SQ SCH ×3 (05:35→21:06)
[2023-02-24] MEDS: LEVOTHYROXINE SODIUM 75 MCG TABLET PO SCH (05:59)
[2023-02-24 06:33] LABS: Hematocrit (blood only) 24.8 % (37.0-47.0); Hemoglobin 8.9 g/dl (12.0-16.0); Mean Corpuscular Hemoglobin 30.7 pg (25.0-34.0); Mean Corpuscular Hgb Conc 35.9 g/dL (32.0-36.0); Mean Corpuscular Volume 85.5 fL (80.0-100.0); Platelet Count 191 K/uL (130-400); RDW Coefficient of Variation 14.4 % (11.5-14.5); White Blood Count 5.09 K/ul (4.8-10.8)
[2023-02-24 06:58] LABS: BUN Creatinine Ratio 11.6 (10-20); Calcium 8.9 mg/dl (8.6-10.3); Creatinine Clr Calc Pharmacy 74.2 ml/min; Est GFR (African American) 68.2 ml/min; Est GFR (Non-African American) 58.9 ml/min; Magnesium 1.4 mg/dl (1.7-2.4); Potassium 3.2 mmol/L (3.5-5.1)
[2023-02-24] MEDS: POTASSIUM CHLORIDE 20 MEQ/15 ML UDC PO SCH (07:59)
[2023-02-24] MEDS: LANTUS PER UNIT CHARGE SQ SCH ×2 (09:09→21:05)
[2023-02-24] MEDS: INSULIN ASPART PER UNIT CHARGE SC SCH ×4 (09:09→21:06)
[2023-02-24] MEDS ORDERED: POTASSIUM CHLORIDE CRTAB 20 MEQ TABCR PO STA (09:46)
[2023-02-24] MEDS: MAGNESIUM SULFATE / D5W 1 GM/100 ML BAG IV SCH ×3 (10:45→14:47)
[2023-02-24] MEDS: POT PHOSPHATE MONOBASIC W/ SOD TAB PO SCH ×3 (12:51→21:06)
--- NOTE | 2023-02-24 16:12 | Hospitalist Progress Note ---
Date of Service February 24, 2023 Assessment & Plan (1) Hypercalcemia: (2) Weakness: (3) Metastatic breast cancer: (4) Diabetes: Plan Ms. Vega is a 48-year-old female past med history significant for metastatic breast cancer, diabetes ,hypothyroidism with chronic nausea and vomiting, recent cholecystectomy, and ongoing issues with hypercalcemia being admitted for work up of hypercalcemia noted on labs at Heme/Onc appointment this afternoon. Patient with bony mets, severe vitamin d deficiency, and issues with PO intake, all potentially contributing to presentation Patient still RSV positive; however, asymptomatic and symptomatically much improved since prior admission. #Hypercalcemia #Severe Vitamin D Deficiency Ca 14.2 on admission, 11.2 this morning Vitamin D panel notable low across the board, pth WNL on 02/07 Continue Vit D 50,000U q7D Continue IVF NSS 150cc/h Got 2 doses of calcitonin on 02/20/23 Calcium 8.9 today Prior attending d/w Nephro use of bisphosphonates On 02/22/23, iv zoledronic acid 4 mg x 1 given on 02/22/23. Nephrology following, appreciate recs. #Progressive weakness Likely from ongoing illness Awaiting PT/OT #RSV Infection Supportive care Droplet precautions #Otorrhea, s/p severe otitis media infection Improvement in bilateral purulent otorrhea s/p ciprodex BID #BHAVANA Cr was 1.39 on admission, s/p ivf. resolved. #Hypomagnesemia #Hypokalemia #Hypophosphatemia K is 3.2 this AM Aggressive hypokalemia repletion prior to trial of lasix as above Replete and monitor Patient does not like po repletion. She is ok with trial of elixir but started from today. IV mag 3g ordered as mag is 1.4 today #Chronic nausea and vomiting #S/p lap bart 01/11 Vomiting has resolved so far PRN antiemetics #Uncontrolled Diabetes Home 25 U BID and 10lispro AC Continue on Lantus 25mg BID, ISS carb ratio of 6, correction factor of 20, glucose goal 110-140 #Hypothyroidism Continue 75mcg levothyroxine daily #Metastatic breast cancer #Mets to ribs with bilateral pathologic rib fractures Continue prn oxycodone No further systemic option per Dr. Newby other than radiation; seeking OP second opinion at [place] #Chronic Normocytic anemia Hb appears stable, Monitor #Unintentional Weight loss #Morbid obesity BMI 34.4 DVT prophylaxis: heparin sq CODE STATUS: DNR/DNI Dispo: Med/Surg with tele Dispo: pending nephro recs and clearance. Admission and Anticipated Discharge Date Admission Date: February 19, 2023 Subjective Patient seen and examined at bedside. Patient was sitting up in chair, on room air, resting comfortably, not in any acute distress. Reports weakness, denies nausea or vomiting or abdominal pain. Denies chest pain or shortness of breath or headache or dizziness. Reports eating okay and moving bowels okay. Physical Exam Physical Exam: GENERAL APPEARANCE: AxOx4, conversational, NAD HEENT: NC, AT. MMM. EOMI, clear conjunctiva, oropharynx clear. NECK: Supple without lymphadenopathy. No stiffness or restricted ROM. HEART: Normal rate and regular rhythm, normal S1/S1, no m/r/g LUNGS: CTAB, moving air well. No crackles or wheezes are heard., left cosme cath without surrounding erythema ABDOMEN: Soft, nontender, nondistended with good bowel sounds heard. EXTREMITIES: Without cyanosis, clubbing or edema. NEUROLOGICAL: Grossly nonfocal. Alert and oriented, moving all 4 extremities. CN not formally tested but appear grossly intact. Skin: Warm and dry without any rash. Results & Data Results & Data Vital Signs (Past 12 Hours) Vital Signs Temp Pulse Pulse Resp BP Pulse Ox O2 Del Method 02/24/23 15:30 37 C 84 18 115/73 97 Room Air 02/24/23 11:39 37.1 C 84 18 114/71 97 Room Air 02/24/23 07:47 37 C 93 H 18 113/71 96 Room Air 02/24/23 07:38 98 H
[2023-02-24] MEDS: POTASSIUM CHLORIDE / WTR 10 MEQ/100 ML PLCT IV SCH ×4 (16:40→20:33)
[2023-02-25] MEDS ORDERED: ZOLPIDEM TARTRATE 5 MG TAB PO STA (00:03)
[2023-02-25 05:33] LABS: Anion Gap 5 (3-11); BUN Creatinine Ratio 16.9 (10-20); Blood Urea Nitrogen 15 mg/dl (6-23); Calcium 7.8 mg/dl (8.6-10.3); Carbon Dioxide 24 mmol/L (21-32); Chloride 104 mmol/L (98-107); Creatinine Clr Calc Pharmacy 93.4 ml/min; Est GFR (African American) 90.1 ml/min; Est GFR (Non-African American) 77.7 ml/min; Glucose 222 mg/dl (70-99(Fasting)); Potassium 3.4 mmol/L (3.5-5.1); Sodium 133 mmol/L (136-145)
[2023-02-25 05:34] LABS: Hematocrit (blood only) 23.2 % (37.0-47.0); Hemoglobin 8.3 g/dl (12.0-16.0); Magnesium 1.7 mg/dl (1.7-2.4); Mean Corpuscular Hemoglobin 30.9 pg (25.0-34.0); Mean Corpuscular Hgb Conc 35.8 g/dL (32.0-36.0); Mean Corpuscular Volume 86.2 fL (80.0-100.0); Mean Platelet Volume 9.1 fL (9.4-12.4); Platelet Count 193 K/uL (130-400); RDW Coefficient of Variation 14.6 % (11.5-14.5); Red Blood Count 2.69 M/uL (4.20-5.40); White Blood Count 4.92 K/ul (4.8-10.8)
[2023-02-25] MEDS: HEPARIN SOD 5,000 UNIT/0.5 ML VIAL SQ SCH ×3 (05:45→22:34)
[2023-02-25] MEDS: LEVOTHYROXINE SODIUM 75 MCG TABLET PO SCH (05:49)
[2023-02-25 05:56] LABS: Phosphorus < 1.0 mg/dl (2.5-4.9)
[2023-02-25] MEDS ORDERED: SODIUM PHOSPHATE 3 MMOL/1 ML INFUSION IV STA (06:20)
[2023-02-25] MEDS ORDERED: MAGNESIUM SULFATE / D5W 1 GM/100 ML BAG IV ONE (06:20)
[2023-02-25] MEDS ORDERED: SODIUM PHOSPHATE 40 MMOL in SODIUM CHLORIDE 0.9% 1,000 ML IV ONE (06:30)
[2023-02-25] MEDS: SODIUM CHLORIDE 0.9% 1,000 ML IV SCH (06:43)
[2023-02-25] MEDS: POTASSIUM CHLORIDE / WTR 10 MEQ/100 ML PLCT IV SCH ×2 (07:01→08:21)
[2023-02-25] MEDS: POT PHOSPHATE MONOBASIC W/ SOD TAB PO SCH (08:21)
[2023-02-25] MEDS: POTASSIUM CHLORIDE 20 MEQ/15 ML UDC PO SCH (08:21)
[2023-02-25] MEDS: INSULIN ASPART PER UNIT CHARGE SC SCH ×4 (08:58→20:36)
[2023-02-25] MEDS: LANTUS PER UNIT CHARGE SQ SCH ×2 (08:58→20:36)
--- NOTE | 2023-02-25 17:21 | Hospitalist Progress Note ---
Date of Service February 25, 2023 Assessment & Plan (1) Hypercalcemia: (2) Weakness: (3) Metastatic breast cancer: (4) Diabetes: Plan Ms. Vega is a 48-year-old female past med history significant for metastatic breast cancer, diabetes ,hypothyroidism with chronic nausea and vomiting, recent cholecystectomy, and ongoing issues with hypercalcemia being admitted for work up of hypercalcemia noted on labs at Heme/Onc appointment this afternoon. Patient with bony mets, severe vitamin d deficiency, and issues with PO intake, all potentially contributing to presentation Patient still RSV positive; however, asymptomatic and symptomatically much improved since prior admission. #Hypercalcemia #Severe Vitamin D Deficiency Ca 14.2 on admission, 11.2 this morning Vitamin D panel notable low across the board, pth WNL on 02/07 Continue Vit D 50,000U q7D Continue IVF NSS 150cc/h Got 2 doses of calcitonin on 02/20/23 Calcium 7.8 today Prior attending d/w Nephro use of bisphosphonates On 02/22/23, iv zoledronic acid 4 mg x 1 given on 02/22/23. Nephrology following, appreciate recs. d/w nephro today, d/t electrolyte abn, will keep today, reassess in AM. #Progressive weakness Likely from ongoing illness PT/OT - recs is home #RSV Infection Supportive care Droplet precautions #Otorrhea, s/p severe otitis media infection Improvement in bilateral purulent otorrhea s/p ciprodex BID #BHAVANA Cr was 1.39 on admission, s/p ivf. resolved. #Hypomagnesemia #Hypokalemia #Hypophosphatemia Monitor and replete. Patient refusing oral supplement, patient advised to comply with oral recommendation as it will help us plan discharge recommendations. Repleting IV phosphorus and IV potassium today. #Chronic nausea and vomiting #S/p lap bart 01/11 Vomiting has resolved so far PRN antiemetics #Uncontrolled Diabetes Home 25 U BID and 10lispro AC Continue on Lantus 25mg BID, ISS carb ratio of 6, correction factor of 20, glucose goal 110-140 #Hypothyroidism Continue 75mcg levothyroxine daily #Metastatic breast cancer #Mets to ribs with bilateral pathologic rib fractures Continue prn oxycodone No further systemic option per Dr. Newby other than radiation; seeking OP second opinion at [place] #Chronic Normocytic anemia Hb appears stable, Monitor #Unintentional Weight loss #Morbid obesity BMI 34.4 DVT prophylaxis: heparin sq CODE STATUS: DNR/DNI Dispo: Med/Surg with tele Dispo: pending nephro recs and clearance. Admission and Anticipated Discharge Date Admission Date: February 19, 2023 Subjective Patient seen and examined at bedside. Patient was sitting up in chair, on room air, resting comfortably, not in any acute distress. Reports weakness, denies nausea or vomiting or abdominal pain. Denies chest pain or shortness of breath or headache or dizziness. Reports eating okay and moving bowels okay. Patient has been refusing oral electrolyte supplements. Patient advised to comply with recommendation as it will help us to determine discharge recommendations. Patient was agreeable. Physical Exam Physical Exam: GENERAL APPEARANCE: AxOx4, conversational, NAD HEENT: NC, AT. MMM. EOMI, clear conjunctiva, oropharynx clear. NECK: Supple without lymphadenopathy. No stiffness or restricted ROM. HEART: Normal rate and regular rhythm, normal S1/S1, no m/r/g LUNGS: CTAB, moving air well. No crackles or wheezes are heard., left cosme cath without surrounding erythema ABDOMEN: Soft, nontender, nondistended with good bowel sounds heard. EXTREMITIES: Without cyanosis, clubbing or edema. NEUROLOGICAL: Grossly nonfocal. Alert and oriented, moving all 4 extremities. CN not formally tested but appear grossly intact. Skin: Warm and dry without any rash. Results & Data Results & Data Vital Signs (Past 12 Hours) Vital Signs Temp Pulse Pulse Resp BP Pulse Ox O2 Del Method 02/25/23 17:02 92 H 02/25/23 17:02 36.5 C 91 H 18 121/70 99 Room Air 02/25/23 11:27 36.8 C 102 H 18 114/75 95 Room Air 02/25/23 08:02 36.7 C 95 H 18 117/81 96 Room Air 02/25/23 07:35 89
[2023-02-26] MEDS: LEVOTHYROXINE SODIUM 75 MCG TABLET PO SCH (06:06)
[2023-02-26] MEDS: HEPARIN SOD 5,000 UNIT/0.5 ML VIAL SQ SCH (06:07)
[2023-02-26] MEDS: POTASSIUM CHLORIDE 20 MEQ/15 ML UDC PO SCH (08:52)
[2023-02-26] MEDS: LANTUS PER UNIT CHARGE SQ SCH (08:53)
[2023-02-26] MEDS: INSULIN ASPART PER UNIT CHARGE SC SCH ×2 (08:54→13:40)
[2023-02-26 09:19] LABS: Hematocrit (blood only) 23.6 % (37.0-47.0); Hemoglobin 8.6 g/dl (12.0-16.0); Mean Corpuscular Hemoglobin 31.2 pg (25.0-34.0); Mean Corpuscular Hgb Conc 36.4 g/dL (32.0-36.0); Mean Corpuscular Volume 85.5 fL (80.0-100.0); Mean Platelet Volume 9.2 fL (9.4-12.4); Platelet Count 181 K/uL (130-400); RDW Coefficient of Variation 15.1 % (11.5-14.5); RDW Standard Deviation 46.5 fL (36.4-46.3); Red Blood Count 2.76 M/uL (4.20-5.40); White Blood Count 5.61 K/ul (4.8-10.8)
[2023-02-26 09:37] LABS: Calcium 7.6 mg/dl (8.6-10.3); Est GFR (African American) 78.2 ml/min; Est GFR (Non-African American) 67.5 ml/min; Magnesium 1.6 mg/dl (1.7-2.4); Phosphorus 2.2 mg/dl (2.5-4.9); Potassium 3.3 mmol/L (3.5-5.1)
[2023-02-26] MEDS ORDERED: ERGOCALCIFEROL 50,000 UNITS 1250 MCG CAP PO SCH (10:30)
[2023-02-26] MEDS ORDERED: POT PHOSPHATE MONOBASIC W/ SOD TAB PO SCH (10:45)
--- NOTE | 2023-02-26 12:18 | Nephrology Progress Note ---
Date of Service February 26, 2023 Assessment & Plan (1) Hypercalcemia: Plan: This AM her calcium is 7.6 ; PTH , VD2 and VD3 are all low. Hypercalcemia: . suspect this is multifactorial >> breast cancer w/ known bone mets, dehydration in setting of hyperglycemia - She is making urine and appears to be comfortable. - Given 2 doses of calcitonin and Zolendric acid. Calcium better. (2) Hypophosphatemia: Plan: Patient with hypophosphatemia. Will put her on Neutra-Phos 1 tablet twice daily. She will also continue potassium chloride 20 renee equivalents daily. She will need repeat BMP in a week and renal follow-up in 1 to 2 weeks. Admission and Anticipated Discharge Date Admission Date: February 19, 2023 Subjective Seen for electrolyte imbalance. She feels well today. No shortness of breath. No vomiting or diarrhea Review of Systems 2 Review of Systems: All other systems were reviewed and negative except as noted in HPI Physical Exam 2 Physical Exam: General exam: Appears comfortable, no acute distress HEENT: Pupils are equal and reactive to light Neck: No JVD, neck is supple trachea is midline Respiratory system: Clear breath sounds bilaterally. Gastrointestinal: Abdomen is soft, non distended, non tender, bowel sounds are present CVS: Regular rate and rhythm. No murmurs, rubs or gallops Musculoskeletal: No joint or muscle tenderness Extremities: Non tender, no edema, peripheral pulses are present Neuro: Oriented, no tremors, no focal neurological deficits Skin: No rashes Results & Data Vital Signs (Past 12 Hours) Vital Signs Temp Pulse Pulse Resp BP Pulse Ox O2 Del Method 02/26/23 11:35 36.7 C 95 H 15 133/85 96 Room Air 02/26/23 10:00 96 H 02/26/23 10:00 Room Air 02/26/23 07:58 36.4 C L 89 15 131/82 97 Room Air 02/26/23 02:51 37.1 C 100 H 16 121/78 97 Room Air Laboratory Results 02/26/23 08:43 02/26/23 08:43 WBC 5.61 RBC 2.76 L MCV 85.5 MCH 31.2 MCHC 36.4 H RDW Std Deviation 46.5 H RDW Coeff of Joshua 15.1 H Plt Count 181 MPV 9.2 L Phosphorus 2.2 L D
[2023-02-26] MEDS ORDERED: POTASSIUM CHLORIDE CRTAB 20 MEQ TABCR PO STA (12:54)
[2023-02-26] MEDS ORDERED: MAGNESIUM OXIDE 400 MG TAB PO SCH (13:00)
--- NOTE | 2023-02-26 13:07 | Discharge Summary ---
Date of Service February 26, 2023 Admission HPI Per Admitting Provider Ms. Vega is a 48-year-old female past med history significant for metastatic breast cancer, diabetes ,hypothyroidism with chronic nausea and vomiting, recent cholecystectomy, and ongoing issues who presented to [facility] [place] ED after found to have abnormal labs at Heme/Onc appointment this afternoon. Patient followed up with Dr. Newby to discuss next infusion of denosumab contingent on calcium levels; however, labs revealed BHAVANA and calcium to 14.2. Patient reports that since last discharge 02/10 from recent admission with RSV/otorrhea/vomiting, she has felt much improved. She is tolerating intake to some degree, more than she has been able for some time. She states her nausea is better handled and denies any recent vomiting. She notes she is cautious with her intake and worries she will "drink too much and vomit." She states that her ears are improving from a drainage standpoint. She denies ongoing congestion, and states she will not use flonase. She also reports concern for progressive weakness and agreeable for PT/OT eval or home services if available. In the ED, vitals were notable for BP of SBO 120-130s, HR of 80-90s and O2 sat of 100 on RA Port clogged, pending alteplase to open port for repeat admission labs, IVF ordered--plan for 1L with maintenance there after for additional liter ED interventions: delayed 2/2 clogged port, pending IV team assessment Consultants: Consulting nephrology Patient to be admitted to med/tele for further evaluation and management of hypercalcemia Admission Exam Per Admitting Provider GENERAL APPEARANCE: AxOx4, conversational, much improved appearance compared to recent admission HEENT: NC, AT. MMM. EOMI, clear conjunctiva, oropharynx clear, left ear with slight waxy drainage, no florid purulence like prior NECK: Supple without lymphadenopathy. No stiffness or restricted ROM. HEART: Normal rate and regular rhythm, normal S1/S1, no m/r/g LUNGS: CTAB, moving air well. No crackles or wheezes are heard., left portacath without surround erythema ABDOMEN: Soft, nontender, nondistended with good bowel sounds heard. EXTREMITIES: Without cyanosis, clubbing or edema. NEUROLOGICAL: Grossly nonfocal. Alert and oriented, moving all 4 extremities. CN not formally tested but appear grossly intact. Skin: Warm and dry without any rash. Principal Diagnosis Hypocalcemia Severe vitamin D deficiency Electrolytes abnormalities Discharge Exam GENERAL APPEARANCE: AxOx4, conversational, NAD HEENT: NC, AT. MMM. EOMI, clear conjunctiva, oropharynx clear. NECK: Supple without lymphadenopathy. No stiffness or restricted ROM. HEART: Normal rate and regular rhythm, normal S1/S1, no m/r/g LUNGS: CTAB, moving air well. No crackles or wheezes are heard., left cosme cath without surrounding erythema ABDOMEN: Soft, nontender, nondistended with good bowel sounds heard. EXTREMITIES: Without cyanosis, clubbing or edema. NEUROLOGICAL: Grossly nonfocal. Alert and oriented, moving all 4 extremities. CN not formally tested but appear grossly intact. Skin: Warm and dry without any rash. Discharge Data Allergies Allergy/AdvReac Type Severity Reaction Status Date / Time No Known Allergies Allergy Verified 02/19/23 16:39 Consultations 02/19/23 17:56 ED Decision to Admit Stat 02/20/23 00:33 Consult Nephrology Routine Hospital Course (1) Hypercalcemia: (2) Weakness: (3) Metastatic breast cancer: (4) Diabetes: Plan Ms. Vega is a 48-year-old female past med history significant for metastatic breast cancer, diabetes ,hypothyroidism with chronic nausea and vomiting, recent cholecystectomy, and ongoing issues with hypercalcemia being admitted for work up of hypercalcemia noted on labs at Heme/Onc appointment this afternoon. Patient with bony mets, severe vitamin d deficiency, and issues with PO intake, all potentially contributing to presentation Patient still RSV positive; however, asymptomatic and symptomatically much improved since prior admission. #Hypercalcemia #Severe Vitamin D Deficiency Ca 14.2 on admission, 11.2 this morning Vitamin D panel notable low across the board, pth WNL on 02/07 Continue Vit D 50,000U q7D Continue IVF NSS 150cc/h Got 2 doses of calcitonin on 02/20/23 Calcium 7.8 today Prior attending d/w Nephro use of bisphosphonates On 02/22/23, iv zoledronic acid 4 mg x 1 given on 02/22/23. Nephrology following, appreciate recs. d/w nephro today, discharging on electrolytes supplement. Advised pt to comply with meds. #Progressive weakness Likely from ongoing illness PT/OT - recs is home #RSV Infection Supportive care Droplet precautions #Otorrhea, s/p severe otitis media infection Improvement in bilateral purulent otorrhea s/p ciprodex BID #BHAVANA Cr was 1.39 on admission, s/p ivf. resolved. #Hypomagnesemia #Hypokalemia #Hypophosphatemia Monitor and replete. Patient refusing oral supplement, patient advised to comply with oral recommendation as it will help us plan discharge recommendations. Being discharged on oral supplements, patient agreeable to take them. #Chronic nausea and vomiting #S/p lap bart 01/11 Vomiting has resolved so far PRN antiemetics #Uncontrolled Diabetes Home 25 U BID and 10lispro AC Continue on Lantus 25mg BID, ISS carb ratio of 6, correction factor of 20, glucose goal 110-140 #Hypothyroidism Continue 75mcg levothyroxine daily #Metastatic breast cancer #Mets to ribs with bilateral pathologic rib fractures Continue prn oxycodone No further systemic option per Dr. Newby other than radiation; seeking OP second opinion at [facility] #Chronic Normocytic anemia Hb appears stable, Monitor #Unintentional Weight loss #Morbid obesity BMI 34.4 DVT prophylaxis: heparin sq CODE STATUS: DNR/DNI Dispo: Med/Surg with tele Patient declined home health services. Patient is being discharged to home with following instruction at the point of discharge: Follow-up with your primary care physician within a week time and likely you will need labs CBC/CMP/magnesium/phosphorus. For your electrolyte abnormalities, you are being discharged on electrolyte supplements. Please take them as recommended. Follow-up with nephrology in 1 to 2 weeks time upon discharge. For your vitamin D deficiency, you are being discharged on high-dose of vitamin D taken every 7 days for about 6 weeks. Then you will need repeat vitamin D level and further recommendation from your PCP office. For your diabetes, place continue to follow-up with your diabetic clinic for ongoing management. Take your medications as prescribed. Please make sure that you are able to get your medications today by calling your pharmacy before you leave the hospital so that your treatment continuity is not broken. [facility] Attestation I certify that this patient is under my care and that I, or a physicians assistant executive housekeeper working with me, had a face to-face encounter that meets the formerly [facility] [id number] encounter requirements with this patient. The encounter with the patient was in whole, or in part, for the following medical condition, which is the primary reason for home health care (list medical condition): I certify that, based on my findings, the following services are medically necessary home health services: My clinical findings support the need for the above services because: Further, I certify that my clinical findings support that this patient is homebound (i.e. absences from home require considerable and taxing effort and are for medical reasons or mu-ism services or infrequently or of short duration when for other reasons) because: Certification for Home Health Services: Based on the above findings, I certify that this patient is confined to the home and needs intermittent chcf care, physical therapy and/or speech therapy or continues to need occupational therapy. The patient is under my care, and I have initiated the establishment of the plan of care. This patient will be followed by a physician who will periodically review the plan of care. Total Time Total Time Spent Total Time Spent (In Minutes): 45 Discharge Plan Discharge Items Patient Disposition: Home - Self-Care Reason For Visit: ABNORMAL LABS, HYPERCALCEMIA Discharge Diagnosis: Hypocalcemia Severe vitamin D deficiency Electrolytes abnormalities Activity: Resume your previous activity Non-emergency contact: Primary Care Provider Call non-emergency contact if: you have any medication questions, your symptoms worsen and your temperature is above 101.5 Follow-up/Referrals: Adonis Lawler CRNP [Primary Care Provider] - 03/04/23 9:00 am Diet: Carb Consistent or DM2 Addtl Attending Provider Instructions: Follow-up with your primary care physician within a week time and likely you will need labs CBC/CMP/magnesium/phosphorus. For your electrolyte abnormalities, you are being discharged on electrolyte supplements. Please take them as recommended. Follow-up with nephrology in 1 to 2 weeks time upon discharge. For your vitamin D deficiency, you are being discharged on high-dose of vitamin D taken every 7 days for about 6 weeks. Then you will need repeat vitamin D level and further recommendation from your PCP office. For your diabetes, place continue to follow-up with your diabetic clinic for ongoing management. Take your medications as prescribed. Please make sure that you are able to get your medications today by calling your pharmacy before you leave the hospital so that your treatment continuity is not broken. Pending Studies at Discharge: No Stand-Alone Forms: My WHATT, Smoking Cessation Medications and DC Order Prescriptions: New Phospha 250 Neutral 250 mg Tablet 1 tab PO BID Qty: 30 0RF magnesium oxide 400 mg (241.3 mg magnesium) Tablet 400 mg PO BID Qty: 30 0RF ergocalciferol (vitamin D2) 1,250 mcg (50,000 unit) Capsule 50,000 unit PO Q7D 42 Days Qty: 6 0RF Continued Xgeva 120 mg/1.7 mL (70 mg/mL) solution 120 mg subcut .Q 3months (DME) Dexcom G6 Sensor Device See Rx Instructions .Route Rx Instructions: Change sensor every 10 days (DME) Dexcom G6 Transmitter Device See Rx Instructions .Route Rx Instructions: change transmitter every 90 days insulin aspart U-100 [Novolog FlexPen U-100 Insulin] 100 unit/mL (3 mL) insulin pen 10 unit subcut AC (DME) pen needle, diabetic [BD Ultra-Fine Aletha Pen Needle] 32 gauge x 5/32" needle See Rx Instructions .Route Rx Instructions: Use 1 three times a day with insulin injection ondansetron HCl 8 mg tablet 8 mg PO Q12H PRN (Reason: Nausea) Lantus Solostar U-100 Insulin 100 unit/mL (3 mL) insulin pen 40 unit SUBCUT BID Rx Instructions: taking it 25/25 not 40 oxycodone 10 mg tablet 10 - 20 mg PO Q4 PRN (Reason: Pain) promethazine 25 mg tablet 25 mg PO TID PRN (Reason: nausea and vomiting) Qty: 20 0RF promethazine 25 mg suppository 25 mg VT Q8H PRN (Reason: nausea and vomiting) Qty: 12 0RF ciprofloxacin-dexamethasone 0.3-0.1 % Drops,Suspension 4 drp otic (ear) BID 10 Days Qty: 7.5 1RF levothyroxine [Synthroid] 75 mcg Tablet 75 mcg PO DAILYBB 30 Days Qty: 30 0RF potassium chloride [Klor-Con] 20 mEq packet 20 meq PO DAILY Qty: 30 0RF Discharge Orders: Discharge Order (Routine); Ordered 02/26/23 Ordered By: Maurisio Pettit Admission Data Admit Date/Time: 02/19/23 18:28 Attending Provider: Maurisio Pettit Admit Provider: Ambreen Magallanes Primary Care Provider: Adonis Lawler Other Providers: Ambreen Magallanes; Ovidio Alvarado
== END 2023-02-26 16:01 | disposition home or self-care (01) | DRG 641 ==
LOC: ED 15:20 → 2W 18:28 → SUATTDRO 18:28 → 2W 02-20 01:30

== ENCOUNTER 2023-04-19 15:52 | Inpatient (IN) ==
--- NOTE | 2023-04-19 16:25 | ED Triage Note ---
Date of Service April 19, 2023 Provider in Triage Author: Nandini Kowalski History of Present Illness This patient was briefly evaluated while in triage. An abbreviated physical exam was performed. This patient is a 48-year-old Female who presents to the ED for evaluation of abnormal labs prior to chemo treatment. Reports hypercalcemia, hyponatremia, pain throughout her body and worsening pain in her ribs, chest, and arms. Currently being treated for metastatic breast ca. Physical Exam Initial orders for labs and / or imaging were placed and patient was placed in the waiting area until a bed is available. Please see further documentation for the full ED course.
--- NOTE | 2023-04-19 17:13 | Emergency Department Note ---
History of Present Illness General Chief Complaint: Abnormal Labs/Diagnostic Testing Stated Complaint: HIGH CALCIUM, CANCER PATIENT Time Seen by Provider: 04/19/23 16:54 History of Present Illness Provider Complaint: + abnormal lab Returns today for: + called because of abnormal lab/test Description of abnormal result: Low sodium high calcium Context: + called for abnormal lab result Associated symptoms: + chest pain (Worse with inspiration) and + shortness of breath; no fever, no nausea or no abdominal pain Home Medications Medication Instructions Recorded Confirmed Type denosumab 120 mg/1.7 mL (70 mg/mL) 120 mg subcut .Q 3months 01/01/22 04/19/23 History subcutaneous solution (Xgeva) blood-glucose sensor (Dexcom G6 12/17/22 04/19/23 History Sensor device) blood-glucose transmitter (Dexcom 12/17/22 04/19/23 History G6 Transmitter device) insulin aspart U-100 100 unit/mL 10 unit subcut AC 12/17/22 04/19/23 History (3 mL) subcutaneous pen (Novolog FlexPen U-100 Insulin aspart) insulin glargine 100 unit/mL (3 30 unit subcut BID 12/17/22 04/19/23 History mL) subcutaneous pen (Lantus Solostar U-100 Insulin) ondansetron HCl 8 mg tablet 8 mg PO Q12H PRN Nausea 12/17/22 04/19/23 History pen needle, diabetic 32 gauge x 12/17/22 04/19/23 History 5/32" (BD Ultra-Fine Aletha Pen Needle) oxycodone 10 mg tablet 10 - 20 mg PO Q4 PRN Pain 01/07/23 04/19/23 History promethazine 25 mg tablet 25 mg PO TID PRN nausea and 01/26/23 04/19/23 Rx vomiting #20 tabs Allergies Allergy/AdvReac Type Severity Reaction Status Date / Time No Known Allergies Allergy Verified 04/19/23 17:28 Past Med/Surg History Medical History History of COVID-19 12/2020 + 12/2021 > residual taste dysfunction and feeling of need to clear throat Bilateral breast cancer Arthritis Liver spots "Mets from cancer" Depression with anxiety Peripheral neuropathy Heart palpitations R/t anxiety per patient Type II diabetes mellitus History of small bowel obstruction Hx bowel obstruction Hypothyroidism No current meds Breast cancer (11/12/15) Stage 4 (+ mets) Surgical History History of tubal ligation Port-A-Cath in place (04/30/22) Insertion Access Port left subclavian with Fluoroscopy(Left) - Chad Banuelos DO History of surgery Left Excisional Debridement of Buttock Wound Nausea and vomiting after administration of anesthetic agent "EXTREME" History of vascular access device PORT INSERTION/REMOVAL History of tooth extraction History of endometrial ablation History of bowel resection D/T BOWEL OBSTRUCTION History of lung surgery Left thoracoscopy with wedge resection left lower lobe Dr. Damico 03/29/2018 History of dilatation and curettage H/O hernia repair Hx of section x3 S/P lumpectomy, left breast LEFT ARM LIMB RESTRICTION Family History Mother , 77yo Diabetes Heart disease Aortic valve replacement Mitral valve calcifications UTI (urinary tract infection) Father , 62yo Diabetes Myocardial infarction Hypertension Stroke Brother Diabetes Myocardial infarction Cardiac stents Pacemaker Hypertension Sister No problems noted. Daughter No problems noted. Son No problems noted. Son No problems noted. 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 How many Children do You have: 3 Other Information That Helps Us Care for You: No Feels Safe at Home: Yes Safety Concerns: Feels Safe At This Time Diet: regular caffeine: No during the past year weight has: remained stable Assistive Devices: None Physical Exam 2 Vital Signs: Vital Signs - 24 hr 04/19/23 16:22 04/19/23 16:23 Temperature 36.7 C Temperature Source Temporal Artery Sc an Pulse Rate 102 H 108 H Pulse Rhythm Regular Respiratory Rate 20 20 Respiratory Effort / Characteristics Non-Labored Respiratory Depth Normal Blood Pressure 108/71 Blood Pressure Carmelita n 83 Pulse Oximetry 94 100 Oxygen Delivery Me thod Room Air Room Air Sepsis Recent Feve r Within 48 Hours No Sepsis New/Unexpla ined Change in Men gutierrez Status No Sepsis Action Take n by Nursing No Action Required Physical Exam: Physical Exam GENERAL: oriented to person, place, and time. appears well-developed and well- nourished. HENT: Exam performed. - Head: Normocephalic and atraumatic. EYES: Conjunctivae and EOM are normal. Right eye exhibits no discharge. Left eye exhibits no discharge. No scleral icterus. NECK: Normal range of motion. Neck supple. No JVD present. CV: Normal rate, regular rhythm, normal heart sounds and intact distal pulses. There is no peripheral edema. Palpable radial pulses bue. PULM/CHEST: Effort normal and breath sounds normal. No respiratory distress. No stridor. no wheezes. no rales. ABD: The abdomen is soft. There is no tenderness. NEURO: Motor and sensation grossly intact. SKIN: Skin is warm and dry. He is not diaphoretic. PSYCH: normal mood and affect. Behavior is normal. Judgment and thought content normal. Course Course 1653: The patient was evaluated in room B12B. A complete history and physical exam was performed Cardiac monitoring: An order was placed for continuous cardiac monitoring. The monitor shows a rate of 100 with sinus rhythm interpreted by 0: Vital signs stable. Labs within normal limits with exception of a calcium of 12.3 and ionized calcium of 1.7. Magnesium 1.4. CTA of the chest negative for PE. IV hydration started on the patient for patient's hypercalcemia. Patient be admitted to the [facility]. Administered Medications Enoxaparin Sodium (Enoxaparin Inj 40 Mg/0.4 Ml Syr) 40 mg SQ Q24H [facility] Stop: 05/19/23 21:36 Last Admin: 04/19/23 23:29 Dose: Not Given Documented By: MABLE Sodium Chloride (Nss) 1,000 mls @ 200 mls/hr IV .Q5H JESSE Stop: 05/19/23 21:36 Last Admin: 04/19/23 23:05 Dose: 200 mls/hr Documented By: [facility] Insulin Aspart (Insulin Aspart Per Unit Charge) 0 units SC ACHS JESSE Stop: 05/19/23 21:36 Last Admin: 04/19/23 23:17 Dose: 4 units Documented By: MABLE Co-signed By: HUGO Insulin Glargine (Lantus Per Unit Charge) 30 units SQ BID JESSE Stop: 05/19/23 21:44 Last Admin: 04/19/23 23:16 Dose: 30 units Documented By: MABLE Co-signed By: VK Discontinued Medications Hydromorphone HCl (Hydromorphone Inj 0.5 Mg/0.5 Ml Syr) 0.5 mg IV NOW STA Stop: 04/19/23 20:45 Last Admin: 04/19/23 23:01 Dose: 0.5 mg Documented By: MABLE Sodium Chloride (Nss) 500 mls @ 999 mls/hr IV .Q31M ONE Stop: 04/19/23 17:43 Last Infusion: 04/19/23 18:11 Dose: Infused Documented By: Admin: 04/19/23 17:27 Dose: 999 mls/hr Documented By: Sodium Chloride (Nss) 500 mls @ 125 mls/hr IV .Q4H JESSE Stop: 05/19/23 17:14 Last Infusion: 04/19/23 23:29 Dose: Infused Documented By: Admin: 04/19/23 21:39 Dose: Not Given Documented By: Admin: 04/19/23 18:11 Dose: 125 mls/hr Documented By: EVERT Ioversol (Optiray 320 125ml) 117 ml IV ONCE ONE Stop: 04/19/23 18:33 Last Admin: 04/19/23 18:32 Dose: 117 ml Documented By: SOCORRO Medical Decision Making Laboratory Data Attestation: I reviewed the patient's lab results. 04/19/23 17:15 04/19/23 17:15 Lab Results 04/19/23 04/19/23 Range/Units 17:15 18:09 WBC 8.82 (4.8-10.8) K/ul RBC 3.45 L (4.20-5.40) M/uL Hgb 10.4 L (12.0-16.0) g/dl Hct 29.5 L (37.0-47.0) % MCV 85.5 (80.0-100.0) fL MCH 30.1 (25.0-34.0) pg MCHC 35.3 (32.0-36.0) g/dL RDW Std Deviation 45.5 (36.4-46.3) fL RDW Coeff of Joshua 14.8 H (11.5-14.5) % Plt Count 242 (130-400) K/uL MPV 9.0 L (9.4-12.4) fL Immature Gran % (Auto) 1.8 % Neut % (Auto) 66.3 % Lymph % (Auto) 21.2 % [place] % (Auto) 6.7 % Eos % (Auto) 3.7 % Baso % (Auto) 0.3 % Neut # (Auto) 5.84 (1.40-6.50) K/uL Lymph # (Auto) 1.87 (1.20-3.40) K/uL [place] # (Auto) 0.59 (0.11-0.59) K/uL Eos # (Auto) 0.33 (0.00-0.50) K/uL Baso # (Auto) 0.03 (0.00-0.20) K/uL Immature Gran # (Auto) 0.16 (0.01-0.20) K/uL Absolute Nucleated RBC 0.02 (0.00-0.12) K/uL Nucleated RBC % (auto) 0.2 % PT 10.5 (9.0-12.0) Seconds INR 1.0 (0.9-1.1) APTT 23 (21-31) Seconds PTT Ratio 0.8 Sodium 131 L (136-145) mmol/L Potassium 3.9 (3.5-5.1) mmol/L Chloride 96 L (98-107) mmol/L Carbon Dioxide 28 (21-32) mmol/L Anion Gap 7 (3-11) BUN 19 (6-23) mg/dl Creatinine 0.73 (0.6-1.2) mg/dl Est Cr Clr Drug Dosing 119.7 ml/min Est GFR ( Amer) 114.5 ml/min Est GFR (Non-Af Amer) 98.8 ml/min BUN/Creatinine Ratio 26.0 H (10-20) Glucose 193 H (70-99(Fasting)) mg/dl Calcium 12.3 H* (8.6-10.3) mg/dl Ionized Calcium 1.70 H* (1.12-1.32) mmol/L Phosphorus 3.7 (2.5-4.9) mg/dl Magnesium 1.4 L (1.7-2.4) mg/dl Total Bilirubin 0.6 (0.2-1.0) mg/dl AST 19 (13-39) U/L ALT 13 (7-52) U/L Alkaline Phosphatase 189 H (34-104) U/L Troponin I High Sens 2.6 (0-14) pg/ml Total Protein 7.5 (6.0-8.3) gm/dl Albumin 3.5 (3.4-5.0) gm/dl Globulin 4.0 (2.5-4.0) gm/dl Albumin/Globulin Ratio 0.9 (0.9-2) Lipase 16 (11-82) U/L Imaging Data Attestation: I personally reviewed and interpreted this imaging study as follows: My Impression: Chest x-ray negative. Airway clear. No pneumothorax. No consolidation. No cardiomegaly or cephalization.. No free air under the diaphragm. No fractures of the skeletal structures. Radiologist's Impression: Chest CTA 04/19/23 17:01 CT angio chest PE protocol CLINICAL HISTORY: ro PE TECHNIQUE: Multidetector row helical CT of the chest was performed with angiographic protocol. Coronal and sagittal reformations were obtained. Coronal and sagittal MIPS were obtained from the axial data set and were submitted for review. Automated dose lowering techniques and/or adjustment according to patient size were utilized for this exam. CT DOSE: 791.03 mGy.cm Comparison: Comparison is made to CT radiation therapy chest 12/29/[address] chest 11/16/2022 FINDINGS: Lungs and pleura: Atelectasis is seen. Nodular densities are noted most prominently in the peripheral right lung measuring up to 12 mm. These are new from prior exam. Heart and pericardium: Heart size is normal. No pericardial effusion. Vessels: No evidence of pulmonary embolism. Mediastinum and abdullahi: Unremarkable. Chest wall and lower neck: Unremarkable. Abdomen: Unremarkable. Bones: Innumerable lytic and sclerotic lesions are seen throughout the skeleton. IMPRESSION: 1. No pulmonary embolus. 2. Interval development of nodular densities most prominent in the peripheral right lung. These may represent infectious/inflammatory process, however metastatic disease cannot be entirely excluded. 3. Innumerable skeletal metastases as above. ACT 112: Negative or not required by law. Electronically signed by: Mariano Guerrier M.D. 04/19/2023 7:14 PM Chest X-Ray 04/19/23 17:01 XR chest 1V portable CLINICAL HISTORY: L CP TECHNIQUE: Single frontal radiograph of the chest was obtained. Comparison: Comparison is made to chest radiograph 02/07/2023 FINDINGS: No lines and tubes are seen. The cardiomediastinal silhouette is normal. The lungs are clear. No evidence of pleural effusion or pneumothorax. IMPRESSION: No acute chest disease. ACT 112: Negative or not required by law. Electronically signed by: Mariano Guerrier M.D. 04/19/2023 5:42 PM ECG Data Attestation: I personally reviewed and interpreted this ECG as follows: Rate (beats per minute): 97 Rhythm: normal sinus Findings: no ST depression, no ST elevation or no prolonged QT [facility] Narrative 1654: The patient was evaluated in room B12B. A complete history and physical exam was performed Cardiac monitoring: An order was placed for continuous cardiac monitoring. The monitor shows a rate of 100 with sinus rhythm interpreted by me 1930: Vital signs stable. Labs within normal limits with exception of a calcium of 12.3 and ionized calcium of 1.7. Magnesium 1.4. CTA of the chest negative for PE. IV hydration started on the patient for patient's hypercalcemia. Patient be admitted to the [facility] team. Impression & Plan Hypercalcemia, Hypomagnesemia Discharge Plan Visit Data Chief Complaint: Abnormal Labs/Diagnostic Testing Stated Complaint: HIGH CALCIUM, CANCER PATIENT ED Provider: Fransico Lazcano Discharge Problem: Hypercalcemia, Hypomagnesemia Patient Disposition: Admitted As Inpatient Discharge Instructions Interventions: ED Discharge Assessment Last Done: 04/19/23 21:51
[2023-04-19] MEDS: SODIUM CHLORIDE 0.9% 500 ML IV ONE (17:27)
[2023-04-19 17:32] LABS: Basophils # (auto) 0.03 K/uL (0.00-0.20); Basophils % (auto) 0.3 %; Eosinophils # (auto) 0.33 K/uL (0.00-0.50); Eosinophils % (auto) 3.7 %; Hematocrit (blood only) 29.5 % (37.0-47.0); Hemoglobin 10.4 g/dl (12.0-16.0); Immature Granulocytes # (auto) 0.16 K/uL (0.01-0.20); Immature Granulocytes % (auto) 1.8 %; Lymphocytes # (auto) 1.87 K/uL (1.20-3.40); Lymphocytes % (auto) 21.2 %; Mean Corpuscular Hemoglobin 30.1 pg (25.0-34.0); Mean Corpuscular Hgb Conc 35.3 g/dL (32.0-36.0); Mean Corpuscular Volume 85.5 fL (80.0-100.0); Monocytes # (auto) 0.59 K/uL (0.11-0.59); Monocytes % (auto) 6.7 %; Neutrophils # (auto) 5.84 K/uL (1.40-6.50); Neutrophils % (auto) 66.3 %; Nucleated RBC # (auto) 0.02 K/uL (0.00-0.12); Nucleated RBC % (auto) 0.2 %; Platelet Count 242 K/uL (130-400); RDW Coefficient of Variation 14.8 % (11.5-14.5); RDW Standard Deviation 45.5 fL (36.4-46.3); Red Blood Count 3.45 M/uL (4.20-5.40); White Blood Count 8.82 K/ul (4.8-10.8)
--- NOTE | 2023-04-19 17:44 | XRay Report ---
XR chest 1V portable CLINICAL HISTORY: L CP TECHNIQUE: Single frontal radiograph of the chest was obtained. Comparison: Comparison is made to chest radiograph 02/07/2023 FINDINGS: No lines and tubes are seen. The cardiomediastinal silhouette is normal. The lungs are clear. No evid ence of pleural effusion or pneumothorax. IMPRESSION: No acute chest disease. ACT 112: Negative or not required by law. Electronically signed by: Mariano Geurrier M.D. 04/19/2023 5:42 PM
[2023-04-19 17:58] LABS: Albumin Globulin Ratio 0.9 (0.9-2); Albumin Level 3.5 gm/dl (3.4-5.0); Bilirubin,Total 0.6 mg/dl (0.2-1.0); Calcium 12.3 mg/dl (8.6-10.3); Creatinine Clr Calc Pharmacy 119.7 ml/min; Est GFR (African American) 114.5 ml/min; Est GFR (Non-African American) 98.8 ml/min; Magnesium 1.4 mg/dl (1.7-2.4); Phosphorus 3.7 mg/dl (2.5-4.9); Potassium 3.9 mmol/L (3.5-5.1); Total Protein 7.5 gm/dl (6.0-8.3); Troponin I High Sensitivity 2.6 pg/ml (0-14)
[2023-04-19 18:03] LABS: Partial Thromboplastin Ratio 0.8; Partial Thromboplastin Time 23 Seconds (21-31); Prothrombin Time 10.5 Seconds (9.0-12.0)
[2023-04-19] MEDS: SODIUM CHLORIDE 0.9% 500 ML IV SCH (18:11)
[2023-04-19] MEDS: OPTIRAY 320 125ml IV ONE (18:32)
--- NOTE | 2023-04-19 19:17 | CT Scan Report ---
CT angio chest PE protocol CLINICAL HISTORY: ro PE TECHNIQUE: Multidetector row helical CT of the chest was performed with angiographic protocol. Hernández l and sagittal reformations were obtained. Coronal and sagittal MIPS were obtained from the axial yaquelin a set and were submitted for review. Automated dose lowering techniques and/or adjustment according to patient size were utilized for this exam. CT DOSE: 791.03 mGy.cm Comparison: Comparison is made to CT radiation therapy chest 12/29/[address] chest 11/16/2022 FINDINGS: Lungs and pleura: Atelectasis is seen. Nodular densities are noted most prominently in the peripheral right lung measuring up to 12 mm. These are new from prior exam. Heart and pericardium: Heart size is normal. No pericardial effusion. Vessels: No evidence of pulmonary embolism. Mediastinum and abdullahi: Unremarkable. Chest wall and lower neck: Unremarkable. Abdomen: Unremarkable. Bones: Innumerable lytic and sclerotic lesions are seen throughout the skeleton. IMPRESSION: 1. No pulmonary embolus. 2. Interval development of nodular densities most prominent in the peripheral right lung. These may represent infectious/inflammatory process, however metastatic disease cannot be entirely excluded. 3. Innumerable skeletal metastases as above. ACT 112: Negative or not required by law. Electronically signed by: Mariano Guerrier M.D. 04/19/2023 7:14 PM
[2023-04-19] MEDS ORDERED: GLUCAGON FOR INJ 1 MG VIAL SQ PRN (21:37)
[2023-04-19] MEDS ORDERED: POLYETHYLENE (MIRALAX) 17 GM PACK PO PRN (21:37)
[2023-04-19] MEDS ORDERED: ACETAMINOPHEN 325 MG TAB PO PRN (21:37)
[2023-04-19] MEDS ORDERED: DEXTROSE 50% 50 ML SYRINGE IV PRN (21:37)
[2023-04-19] MEDS ORDERED: GLUCOSE 10 TAB/TUBE PO PRN (21:37)
[2023-04-19] MEDS ORDERED: NITROGLYCERIN SL 0.4 MG/TAB TAB SL PRN (21:37)
[2023-04-19] MEDS ORDERED: GLUCOSE 40% GEL 15 GM TUBE PO PRN (21:37)
[2023-04-19] MEDS ORDERED: oxyCODONE HCL IR 5 MG TAB (IMMEDIATE RELEASE) PO PRN (21:37)
[2023-04-19] MEDS ORDERED: CARBOHYDRATES FOR HYPOGLYCEMIA PO PRN (21:37)
[2023-04-19] MEDS: HYDROmorphone INJ 0.5 MG/0.5 ML SYR IV STA (23:01)
[2023-04-19] MEDS: SODIUM CHLORIDE 0.9% 1,000 ML IV SCH (23:05)
[2023-04-19] MEDS: LANTUS PER UNIT CHARGE SQ SCH (23:16)
[2023-04-19] MEDS: INSULIN ASPART PER UNIT CHARGE SC SCH (23:17)
[2023-04-19] MEDS: ENOXAPARIN INJ 40 MG/0.4 ML SYR SQ SCH (23:29)
--- NOTE | 2023-04-20 02:06 | History & Physical Report ---
Date of Service April 19, 2023 Assessment & Plan (1) Hypercalcemia: Plan: 48-year-old female with past medical history significant for metastatic breast cancer, diabetes, hypothyroidism history of hypercalcemia, depression with anxiety, peripheral neuropathy, history of small bowel obstruction was sent in because outpatient labs showed elevated calcium. Labs in the ER showed calcium of 12.3. Patient complains of right-sided chest pain. More with taking deep breaths. Has some cough. Denies any fevers. No headache. No runny nose or sore throat. No nausea. No abdominal pain. Normal bowel and bladder movements. Hemodynamics are okay. Hypercalcemia Moderate hypercalcemia History of hypercalcemia in end of January 2023 received calcitonin ,fluids and Zometa Calcium is 12.3 Aggressive IV fluids normal saline at rate of 200 mill per hour Follow repeat labs Nephrology and heme-onc consult in a.m. Metastatic breast cancer History of chemo and radiation There was plan for starting chemo tomorrow as per patient Consulting oncology Right-sided chest pain CTA chest no PE But shows possible infectious/ inflammatory process Notable for innumerable skeletal metastasis Empiric zosyn and Doxy Pain controlled Oncology consulted Diabetes Continue home Lantus insulin Sliding scale Will monitor Anemia Hemoglobin 10.4 We will monitor Hypomagnesia Will replace Hypothyroidism On Synthyroid DVT prophylaxis Lovenox Disposition Telemetry CODE STATUS DNR/DNI per my discussion with the patient History of Present Illness Chief Complaint: Hypercalcemia Primary Care Provider: CONSTANTINO Reid 48-year-old female with past medical history significant for metastatic breast cancer, diabetes, hypothyroidism history of hypercalcemia, depression with anxiety, peripheral neuropathy, history of small bowel obstruction was sent in because outpatient labs showed elevated calcium. Labs in the ER showed calcium of 12.3. Patient complains of right-sided chest pain. More with taking deep breaths. Has some cough. Denies any fevers. No headache. No runny nose or sore throat. No nausea. No abdominal pain. Normal bowel and bladder movements. Hemodynamics are okay. Past medical history. As mentioned above Past surgical history. Left excisional debridement of buttock wound. History of tooth extraction. History of endometrial ablation. History of bowel resection. Left thoracoscopy with wedge resection of left lower lobe. History of dilatation curettage. History of hernia repair. History of x 3. Left breast lumpectomy. Family history. Mother had diabetes. Multiple replacement. UTI. Father had diabetes. DC. Hypertension. Stroke. Brother has diabetes. DC. Pacemaker. Hypertension. Social history. No smoking. No alcohol use. No drug use. , Allergies Allergy/AdvReac Type Severity Reaction Status Date / Time No Known Allergies Allergy Verified 04/19/23 17:28 Home Medications Medication Instructions Recorded Confirmed Type denosumab 120 mg/1.7 mL (70 mg/mL) 120 mg subcut .Q 3months 01/01/22 04/19/23 History subcutaneous solution (Xgeva) blood-glucose sensor (Dexcom G6 12/17/22 04/19/23 History Sensor device) blood-glucose transmitter (Dexcom 12/17/22 04/19/23 History G6 Transmitter device) insulin aspart U-100 100 unit/mL 10 unit subcut AC 12/17/22 04/19/23 History (3 mL) subcutaneous pen (Novolog FlexPen U-100 Insulin aspart) insulin glargine 100 unit/mL (3 30 unit subcut BID 12/17/22 04/19/23 History mL) subcutaneous pen (Lantus Solostar U-100 Insulin) ondansetron HCl 8 mg tablet 8 mg PO Q12H PRN Nausea 12/17/22 04/19/23 History pen needle, diabetic 32 gauge x 12/17/22 04/19/23 History " (BD Ultra-Fine Aletha Pen Needle) oxycodone 10 mg tablet 10 - 20 mg PO Q4 PRN Pain 01/07/23 04/19/23 History promethazine 25 mg tablet 25 mg PO TID PRN nausea and 01/26/23 04/19/23 Rx vomiting #20 tabs Past Med/Surg History Medical History History of COVID-19 12/2020 + 12/2021 > residual taste dysfunction and feeling of need to clear throat Bilateral breast cancer Arthritis Liver spots "Mets from cancer" Depression with anxiety Peripheral neuropathy Heart palpitations R/t anxiety per patient Type II diabetes mellitus History of small bowel obstruction Hx bowel obstruction Hypothyroidism No current meds Breast cancer (11/12/15) Stage 4 (+ mets) Surgical History History of tubal ligation Port-A-Cath in place (04/30/22) Insertion Access Port left subclavian with Fluoroscopy(Left) - Chad Banuelos DO History of surgery Left Excisional Debridement of Buttock Wound Nausea and vomiting after administration of anesthetic agent "EXTREME" History of vascular access device PORT INSERTION/REMOVAL History of tooth extraction History of endometrial ablation History of bowel resection D/T BOWEL OBSTRUCTION History of lung surgery Left thoracoscopy with wedge resection left lower lobe Dr. Damico 03/29/2018 History of dilatation and curettage H/O hernia repair Hx of section x3 S/P lumpectomy, left breast LEFT ARM LIMB RESTRICTION Family History Mother , 77yo Diabetes Heart disease Aortic valve replacement Mitral valve calcifications UTI (urinary tract infection) Father , 62yo Diabetes Myocardial infarction Hypertension Stroke Brother Diabetes Myocardial infarction Cardiac stents Pacemaker Hypertension Sister No problems noted. Daughter No problems noted. Son No problems noted. Son No problems noted. 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 ENT- oropharynx clear Neck- supple, no JVD. Lungs- clear to auscultation no wheezing or crackles. Heart- regular rhythm; no murmur, no gallop. Abdomen- normal bowel sounds, soft, nontender, no distension Extremities- no erythema seen Neuro- alert, oriented ; PERRL, no facial palsy; no dysarthria; moves extremities. Skin- warm & dry Results & Data Results & Data Vital Signs (Past 12 Hours) Vital Signs Temp Pulse Resp BP Pulse Ox O2 Del Method 04/19/23 16:23 36.7 C 108 H 20 108/71 100 Room Air 04/19/23 16:22 102 H 20 94 Room Air Diagnostic Findings Laboratory Results WBC 8.82 K/ul (4.8-10.8) 04/19/23 17:15 RBC 3.45 M/uL (4.20-5.40) L 04/19/23 17:15 Hgb 10.4 g/dl (12.0-16.0) L 04/19/23 17:15 Hct 29.5 % (37.0-47.0) L 04/19/23 17:15 MCV 85.5 fL (80.0-100.0) 04/19/23 17:15 MCH 30.1 pg (25.0-34.0) 04/19/23 17:15 MCHC 35.3 g/dL (32.0-36.0) 04/19/23 17:15 RDW Std Deviation 45.5 fL (36.4-46.3) 04/19/23 17:15 RDW Coeff of Joshua 14.8 % (11.5-14.5) H 04/19/23 17:15 Plt Count 242 K/uL (130-400) 04/19/23 17:15 MPV 9.0 fL (9.4-12.4) L 04/19/23 17:15 Immature Gran % (Auto) 1.8 % 04/19/23 17:15 Neut % (Auto) 66.3 % 04/19/23 17:15 Lymph % (Auto) 21.2 % 04/19/23 17:15 [place] % (Auto) 6.7 % 04/19/23 17:15 Eos % (Auto) 3.7 % 04/19/23 17:15 Baso % (Auto) 0.3 % 04/19/23 17:15 Neut # (Auto) 5.84 K/uL (1.40-6.50) 04/19/23 17:15 Lymph # (Auto) 1.87 K/uL (1.20-3.40) 04/19/23 17:15 [place] # (Auto) 0.59 K/uL (0.11-0.59) 04/19/23 17:15 Eos # (Auto) 0.33 K/uL (0.00-0.50) 04/19/23 17:15 Baso # (Auto) 0.03 K/uL (0.00-0.20) 04/19/23 17:15 Immature Gran # (Auto) 0.16 K/uL (0.01-0.20) 04/19/23 17:15 Absolute Nucleated RBC 0.02 K/uL (0.00-0.12) 04/19/23 17:15 Nucleated RBC % (auto) 0.2 % 04/19/23 17:15 PT 10.5 Seconds (9.0-12.0) 04/19/23 17:15 INR 1.0 (0.9-1.1) 04/19/23 17:15 APTT 23 Seconds (21-31) 04/19/23 17:15 PTT Ratio 0.8 04/19/23 17:15 Sodium 131 mmol/L (136-145) L 04/19/23 17:15 Potassium 3.9 mmol/L (3.5-5.1) 04/19/23 17:15 Chloride 96 mmol/L (98-107) L 04/19/23 17:15 Carbon Dioxide 28 mmol/L (21-32) 04/19/23 17:15 Anion Gap 7 (3-11) 04/19/23 17:15 BUN 19 mg/dl (6-23) 04/19/23 17:15 Creatinine 0.73 mg/dl (0.6-1.2) 04/19/23 17:15 Est Cr Clr Drug Dosing 119.7 ml/min 04/19/23 17:15 Est GFR ( Amer) 114.5 ml/min 04/19/23 17:15 Est GFR (Non-Af Amer) 98.8 ml/min 04/19/23 17:15 BUN/Creatinine Ratio 26.0 (10-20) H 04/19/23 17:15 Glucose 193 mg/dl (70-99(Fasting)) H 04/19/23 17:15 POC Glucose 257 mg/dl (70-99) H 04/19/23 23:08 Calcium 12.3 mg/dl (8.6-10.3) H* 04/19/23 17:15 Ionized Calcium 1.70 mmol/L (1.12-1.32) H* 04/19/23 18:09 Phosphorus 3.7 mg/dl (2.5-4.9) 04/19/23 17:15 Magnesium 1.4 mg/dl (1.7-2.4) L 04/19/23 17:15 Total Bilirubin 0.6 mg/dl (0.2-1.0) 04/19/23 17:15 AST 19 U/L (13-39) 04/19/23 17:15 ALT 13 U/L (7-52) 04/19/23 17:15 Alkaline Phosphatase 189 U/L (34-104) H 04/19/23 17:15 Troponin I High Sens 2.6 pg/ml (0-14) 04/19/23 17:15 Total Protein 7.5 gm/dl (6.0-8.3) 04/19/23 17:15 Albumin 3.5 gm/dl (3.4-5.0) 04/19/23 17:15 Globulin 4.0 gm/dl (2.5-4.0) 04/19/23 17:15 Albumin/Globulin Ratio 0.9 (0.9-2) 04/19/23 17:15 Lipase 16 U/L (11-82) 04/19/23 17:15 Impressions Chest CTA 04/19/23 17:01 CT angio chest PE protocol CLINICAL HISTORY: ro PE TECHNIQUE: Multidetector row helical CT of the chest was performed with angiographic protocol. Coronal and sagittal reformations were obtained. Coronal and sagittal MIPS were obtained from the axial data set and were submitted for review. Automated dose lowering techniques and/or adjustment according to patient size were utilized for this exam. CT DOSE: 791.03 mGy.cm Comparison: Comparison is made to CT radiation therapy chest 12/29/[address] chest 11/16/2022 FINDINGS: Lungs and pleura: Atelectasis is seen. Nodular densities are noted most prominently in the peripheral right lung measuring up to 12 mm. These are new from prior exam. Heart and pericardium: Heart size is normal. No pericardial effusion. Vessels: No evidence of pulmonary embolism. Mediastinum and abdullahi: Unremarkable. Chest wall and lower neck: Unremarkable. Abdomen: Unremarkable. Bones: Innumerable lytic and sclerotic lesions are seen throughout the skeleton. IMPRESSION: 1. No pulmonary embolus. 2. Interval development of nodular densities most prominent in the peripheral right lung. These may represent infectious/inflammatory process, however metastatic disease cannot be entirely excluded. 3. Innumerable skeletal metastases as above. ACT 112: Negative or not required by law. Electronically signed by: Mariano Guerrier M.D. 04/19/2023 7:14 PM Chest X-Ray 04/19/23 17:01 XR chest 1V portable CLINICAL HISTORY: L CP TECHNIQUE: Single frontal radiograph of the chest was obtained. Comparison: Comparison is made to chest radiograph 02/07/2023 FINDINGS: No lines and tubes are seen. The cardiomediastinal silhouette is normal. The lungs are clear. No evidence of pleural effusion or pneumothorax. IMPRESSION: No acute chest disease. ACT 112: Negative or not required by law. Electronically signed by: Mariano Guerrier M.D. 04/19/2023 5:42 PM ECG Additional Comments: ECG. Normal sinus rhythm rate of 97. QTc 414 Code Status & VTE Plan VTE Prophylaxis Plan VTE Prophylaxis will be ordered: Yes
[2023-04-20] MEDS: HYDROmorphone INJ 0.5 MG/0.5 ML SYR IV PRN (02:34)
[2023-04-20] MEDS: DOXYCYCLINE HYCLATE 100 MG in DEXTROSE 5% MINI-B 100 ML IV SCH (03:16)
[2023-04-20] MEDS: PIPERACILLIN/TAZOBACTAM 4.5 GM in DEXTROSE 5% MINI-B 100 ML IV ONE (03:31)
[2023-04-20 05:55] LABS: Basophils # (auto) 0.02 K/uL (0.00-0.20); Basophils % (auto) 0.4 %; Eosinophils # (auto) 0.25 K/uL (0.00-0.50); Eosinophils % (auto) 4.5 %; Hematocrit (blood only) 24.7 % (37.0-47.0); Hemoglobin 8.8 g/dl (12.0-16.0); Immature Granulocytes # (auto) 0.13 K/uL (0.01-0.20); Immature Granulocytes % (auto) 2.3 %; Lymphocytes # (auto) 1.47 K/uL (1.20-3.40); Lymphocytes % (auto) 26.4 %; Mean Corpuscular Hemoglobin 30.8 pg (25.0-34.0); Mean Corpuscular Hgb Conc 35.6 g/dL (32.0-36.0); Mean Corpuscular Volume 86.4 fL (80.0-100.0); Monocytes # (auto) 0.39 K/uL (0.11-0.59); Neutrophils % (auto) 59.4 %; Platelet Count 204 K/uL (130-400); RDW Standard Deviation 47.2 fL (36.4-46.3); Red Blood Count 2.86 M/uL (4.20-5.40); White Blood Count 5.56 K/ul (4.8-10.8)
[2023-04-20 06:07] LABS: BUN Creatinine Ratio 26.9 (10-20); Calcium 10.9 mg/dl (8.6-10.3); Est GFR (African American) 122.2 ml/min; Est GFR (Non-African American) 105.4 ml/min; Magnesium 1.3 mg/dl (1.7-2.4); Potassium 3.8 mmol/L (3.5-5.1)
[2023-04-20 06:13] LABS: Troponin I High Sensitivity 2.8 pg/ml (0-14)
--- NOTE | 2023-04-20 08:01 | Nephrology Consultation ---
Date of Consultation April 20, 2023 Assessment & Plan (1) Hypercalcemia: moderate hypercalcemia improving w/ saline tx -calcium not in a range where I would consider bisphosphonate at this time; no indication for calcitonin -continue aggressive NS current rate; no evidence of volume overload or NAGMA -daily bmp -f/u oncology recs (2) Hypomagnesemia: started po mag; would avoid slo mag d/t calcium content -check mag daily History of Present Illness Reason for Consultation: Hypercalcemia Requesting Physician: Dr Bose Attending Physician: Ambreen Magallanes MD History of Present Illness 48 y/o F whom I'm asked to see for hypercalcemia was admitted last evening for same after being sent here b/c OP labs showed hypercalcemia w/ sCa 12.1. PMH includes metastatic breast cancer w/ hx of chemo and XRT, diabetes, hypothyroidism, 01/2023 admission here for hypercalcemia managed w/ vitamin D [id number], depression with anxiety, peripheral neuropathy, small bowel obstruction s/p resection, hx L thoracoscopy w/ wedge resection LLL. Per report she had been planning to start CTX in AM. Her admission calcium was 12.3. She c/o pleuritic R sided chest pain and cough w/ CT Chest showing no PE but possible infectious/inflammatory process and innumerable skeletal metastases. No F/C, no sore throat or rhinorrhea. No N/v/d/c/abd pain. no dysuria or gross hematuria. She was started on NS at 200 mL hourly as well as zosyn and doxycycline. Oncology c/s is pending. Tells me she feels well other than uncontrolled bone pain. no sob, no n/v, no constipation or abd pain. no polyuria or gross hematuria or dysuria. no edema. no presyncopal sx or falls. no confusion or rash or bleeding concern Allergies Allergy/AdvReac Type Severity Reaction Status Date / Time No Known Allergies Allergy Verified 04/19/23 17:28 Home Medications Medication Instructions Recorded Confirmed Type denosumab 120 mg/1.7 mL (70 mg/mL) 120 mg subcut .Q 3months 01/01/22 04/19/23 History subcutaneous solution (Xgeva) blood-glucose sensor (Dexcom G6 12/17/22 04/19/23 History Sensor device) blood-glucose transmitter (Dexcom 12/17/22 04/19/23 History G6 Transmitter device) insulin aspart U-100 100 unit/mL 10 unit subcut AC 12/17/22 04/19/23 History (3 mL) subcutaneous pen (Novolog FlexPen U-100 Insulin aspart) insulin glargine 100 unit/mL (3 30 unit subcut BID 12/17/22 04/19/23 History mL) subcutaneous pen (Lantus Solostar U-100 Insulin) ondansetron HCl 8 mg tablet 8 mg PO Q12H PRN Nausea 12/17/22 04/19/23 History pen needle, diabetic 32 gauge x 12/17/22 04/19/23 History /32" (BD Ultra-Fine Aletha Pen Needle) oxycodone 10 mg tablet 10 - 20 mg PO Q4 PRN Pain 01/07/23 04/19/23 History promethazine 25 mg tablet 25 mg PO TID PRN nausea and 01/26/23 04/19/23 Rx vomiting #20 tabs Patient History Medical History History of COVID-19 12/2020 + 12/2021 > residual taste dysfunction and feeling of need to clear throat Bilateral breast cancer Arthritis Liver spots "Mets from cancer" Depression with anxiety Peripheral neuropathy Heart palpitations R/t anxiety per patient Type II diabetes mellitus History of small bowel obstruction Hx bowel obstruction Hypothyroidism No current meds Breast cancer (11/12/15) Stage 4 (+ mets) Surgical History History of tubal ligation Port-A-Cath in place (04/30/22) Insertion Access Port left subclavian with Fluoroscopy(Left) - Chad Banuelos DO History of surgery Left Excisional Debridement of Buttock Wound Nausea and vomiting after administration of anesthetic agent "EXTREME" History of vascular access device PORT INSERTION/REMOVAL History of tooth extraction History of endometrial ablation History of bowel resection D/T BOWEL OBSTRUCTION History of lung surgery Left thoracoscopy with wedge resection left lower lobe Dr. Damico 03/29/2018 History of dilatation and curettage H/O hernia repair Hx of section x3 S/P lumpectomy, left breast LEFT ARM LIMB RESTRICTION Family History Mother , 77yo Diabetes Heart disease Aortic valve replacement Mitral valve calcifications UTI (urinary tract infection) Father , 62yo Diabetes Myocardial infarction Hypertension Stroke Brother Diabetes Myocardial infarction Cardiac stents Pacemaker Hypertension Sister No problems noted. Daughter No problems noted. Son No problems noted. Son No problems noted. 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 How many Children do You have: 3 Other Information That Helps Us Care for You: No Feels Safe at Home: Yes Safety Concerns: Feels Safe At This Time Diet: regular caffeine: No during the past year weight has: remained stable Assistive Devices: None Review of Systems 2 Review of Systems: All systems reviewed & are unremarkable except as noted in HPI & below Physical Exam 2 Constitutional: well developed and well nourished Eyes: EOM intact bilaterally ENMT: Ears: no external ear abnormality Nose: no external nose abnormality Mouth: + dry oral mucous membranes Neck: no nuchal rigidity Respiratory: normal respiratory effort Auscultation: + diminished lung sounds Cardiovascular: RRR, no murmur, no edema Gastrointestinal (Abdomen): Inspection/Auscultation: normal bowel sounds P ercussion/Palpation: abdomen soft; abdomen nontender Musculoskeletal: Extremities: strength 5/5 throughout Skin: no rashes, warm and dry Neurologic: nicole, fluent speech, no tremor Psychiatric: Orientation: alert and oriented x 3 Results & Data Vital Signs (Past 12 Hours) Vital Signs Temp Pulse Resp BP Pulse Ox O2 Del Method 04/20/23 03:07 36.5 C 91 H 18 124/90 95 Room Air 04/20/23 00:23 Room Air 04/20/23 00:11 36.7 C 16 114/69 97 Room Air 04/19/23 23:33 36.7 C 20 114/69 97 Room Air Laboratory Results 04/20/23 05:35 04/20/23 05:35 iCa 1.7 on presentation Ca 10.9 mag 1.3 Diagnostic Findings cxr no acute dz chest CT IMPRESSION: 1. No pulmonary embolus. 2. Interval development of nodular densities most prominent in the peripheral right lung. These may represent infectious/inflammatory process, however metastatic disease cannot be entirely excluded. 3. Innumerable skeletal metastases as above.
[2023-04-20] MEDS: PIPERACILLIN/TAZOBACTAM 4.5 GM in DEXTROSE 5% MINI-B 100 ML IV SCH (08:49)
--- NOTE | 2023-04-20 09:17 | Oncology Consultation ---
Date of Consultation April 20, 2023 Assessment & Plan (1) Breast cancer: . At this point we will continue to hold treatment while the patient is admitted in the hospital. Once she is discharged we will resume treatment her next line of treatment is eribulin. I will get a baseline CT of the chest abdomen pelvis which has already been done in the hospital. We will make subsequent treatment decisions once the patient is discharged (2) Hypercalcemia: . Inpatient management for hypercalcemia. Treatment per our internal medicine colleagues as well as nephrology. Plan Medical oncology will continue to follow the patient and make appropriate recommendations. Thank you for this interesting oncological consult History of Present Illness Attending Physician: Ambreen Magallanes MD History of Present Illness The patient is a very pleasant 48-year-old woman, who is well-known to me because of her metastatic breast cancer which is progressed on several lines of therapy. The patient was recently in the clinic to get some teaching regarding her latest line of therapy which is eribulin. However she was found to be severely hypercalcemic and was admitted to the hospital. During my interview today the patient was doing well. Reported no fever chills or night sweats he reports no nausea vomiting. Her appetite is good, the patient is not losing weight. She reports no skeletal pain. She is currently being comanaged by our hospital internal medicine colleagues as well as nephrology for hypercalcemia.. Her hypercalcemia is chiefly due to her metastatic breast cancer Allergies Allergy/AdvReac Type Severity Reaction Status Date / Time No Known Allergies Allergy Verified 04/19/23 17:28 Home Medications Medication Instructions Recorded Confirmed Type denosumab 120 mg/1.7 mL (70 mg/mL) 120 mg subcut .Q 3months 01/01/22 04/19/23 History subcutaneous solution (Xgeva) blood-glucose sensor (Dexcom G6 12/17/22 04/19/23 History Sensor device) blood-glucose transmitter (Dexcom 12/17/22 04/19/23 History G6 Transmitter device) insulin aspart U-100 100 unit/mL 10 unit subcut AC 12/17/22 04/19/23 History (3 mL) subcutaneous pen (Novolog FlexPen U-100 Insulin aspart) insulin glargine 100 unit/mL (3 30 unit subcut BID 12/17/22 04/19/23 History mL) subcutaneous pen (Lantus Solostar U-100 Insulin) ondansetron HCl 8 mg tablet 8 mg PO Q12H PRN Nausea 12/17/22 04/19/23 History pen needle, diabetic 32 gauge x 12/17/22 04/19/23 History " (BD Ultra-Fine Aletha Pen Needle) oxycodone 10 mg tablet 10 - 20 mg PO Q4 PRN Pain 01/07/23 04/19/23 History promethazine 25 mg tablet 25 mg PO TID PRN nausea and 01/26/23 04/19/23 Rx vomiting #20 tabs Patient History Medical History History of COVID-19 12/2020 + 12/2021 > residual taste dysfunction and feeling of need to clear t hroat Bilateral breast cancer Arthritis Liver spots "Mets from cancer" Depression with anxiety Peripheral neuropathy Heart palpitations R/t anxiety per patient Type II diabetes mellitus History of small bowel obstruction Hx bowel obstruction Hypothyroidism No current meds Breast cancer (11/12/15) Stage 4 (+ mets) Surgical History History of tubal ligation Port-A-Cath in place (04/30/22) Insertion Access Port left subclavian with Fluoroscopy(Left) - Chad Banuelos DO History of surgery Left Excisional Debridement of Buttock Wound Nausea and vomiting after administration of anesthetic agent "EXTREME" History of vascular access device PORT INSERTION/REMOVAL History of tooth extraction History of endometrial ablation History of bowel resection D/T BOWEL OBSTRUCTION History of lung surgery Left thoracoscopy with wedge resection left lower lobe Dr. Damico 03/29/2018 History of dilatation and curettage H/O hernia repair Hx of section x3 S/P lumpectomy, left breast LEFT ARM LIMB RESTRICTION Family History Mother , 77yo Diabetes Heart disease Aortic valve replacement Mitral valve calcifications UTI (urinary tract infection) Father , 62yo Diabetes Myocardial infarction Hypertension Stroke Brother Diabetes Myocardial infarction Cardiac stents Pacemaker Hypertension Sister No problems noted. Daughter No problems noted. Son No problems noted. Son No problems noted. 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 How many Children do You have: 3 Other Information That Helps Us Care for You: No Feels Safe at Home: Yes Safety Concerns: Feels Safe At This Time Diet: regular caffeine: No during the past year weight has: remained stable Assistive Devices: None Review of Systems Review of Systems: All systems reviewed & are unremarkable except as noted in HPI & below Constitutional: as per Subjective / HPI Eyes: as per Subjective / HPI Ear, Nose, Mouth, Throat: as per Subjective / HPI Respiratory: as per Subjective / HPI Cardiovascular: as per Subjective / HPI Gastrointestinal: as per Subjective / HPI Genitourinary: as per Subjective / HPI Physical Exam Constitutional: WD/WN, vitals as above Eyes: PERRL, conjunctivae normal, anicteric sclerae ENMT: external ear and nose normal, oropharynx normal Neck: trachea midline, no thyromegaly Respiratory: normal respiratory effort, lungs clear to auscultation Cardiovascular: RRR, no murmur, no edema Gastrointestinal (Abdomen): normal bowel sounds, soft, nontender, no hepatosplenomegaly Musculoskeletal: no cyanosis or clubbing, extremities motor strength 5/5 Results & Data Vital Signs (Past 12 Hours) Vital Signs Temp Pulse Resp BP Pulse Ox O2 Del Method 04/20/23 07:52 36.5 C 93 H 18 122/84 95 Room Air 04/20/23 03:07 36.5 C 91 H 18 124/90 95 Room Air 04/20/23 00:23 Room Air 04/20/23 00:11 36.7 C 16 114/69 97 Room Air 04/19/23 23:33 36.7 C 20 114/69 97 Room Air (1) Breast cancer Breast location: unspecified site of breast Estrogen receptor status: unspecified Laterality: unspecified laterality Patient sex: female Qualified Code(s): C50.919 - Malignant neoplasm of unspecified site of unspecified female breast
[2023-04-20] MEDS: MAGNESIUM OXIDE 400 MG TAB PO SCH (10:33)
--- NOTE | 2023-04-20 11:04 | Electrocardiogram Report ---
Test Reason : Blood Pressure : / mmHG Vent. Rate : 097 BPM Atrial Rate : 097 BPM P-R Int : 168 ms QRS Dur : 084 ms QT Int : 326 ms P-R-T Axes : 016 -19 030 degrees QTc Int : 414 ms Normal sinus rhythm Poor R wave progression, consider anterior NM vs. lead placement vs. LVH Abnormal ECG When compared with ECG of 16-APR-2023 12:39, Borderline criteria for Anterior infarct are now Present Confirmed by Ruben Chiu ([id number]) on 04/20/2023 11:04:00 AM Referred By: REFERRED SELF Confirmed By:Rachid Chiu
--- NOTE | 2023-04-20 11:09 | Electrocardiogram Report ---
Test Reason : Blood Pressure : / mmHG Vent. Rate : 094 BPM Atrial Rate : 094 BPM P-R Int : 160 ms QRS Dur : 084 ms QT Int : 346 ms P-R-T Axes : 042 -05 027 degrees QTc Int : 432 ms Normal sinus rhythm Normal ECG When compared with ECG of 19-APR-2023 17:25, (unconfirmed) Borderline criteria for Anterior infarct are no longer Present Confirmed by Ruben Chiu ([id number]) on 04/20/2023 11:09:03 AM Referred By: REFERRED SELF Confirmed By:Rachid Chiu
[2023-04-20 12:29] LABS: Appearance Urine Clear (Clear); Bacteria Urine Automated Negative (Negative); Bilirubin Urine Negative (Negative); Blood Urine Negative (Negative); Cast Urine Automated 0 /lpf (0-5); Color Urine Yellow; Epithelial Cell Urine Auto 20-30 /lpf (0-5); Glucose Urine UA Trace (Negative); Ketones Urine Negative (Negative); Leukocyte Esterase Urine 1+ (Negative); Nitrite Urine Negative (Negative); Protein Urine Negative (Negative); RBC Urine Automated 0-4 /hpf (0-4); Specific Gravity Urine 1.027 (1.000-1.030); Urobilinogen Urine Negative (Negative); WBC Urine Automated >30 /hpf (0-5); pH Urine 5.5 (4.5-7.5)
[2023-04-20 12:43] LABS: Calcium Oxalate Crystals Urine Present (None Prsent)
[2023-04-20] MEDS: fentaNYL 50 MCG/HR TDSY TD SCH (17:38)
[2023-04-20] MEDS ORDERED: PHARMACY GLYCEMIC MGMT CONSULT PRN (19:08)
--- NOTE | 2023-04-20 19:15 | Hospitalist Progress Note ---
Date of Service April 20, 2023 Assessment & Plan (1) Hypercalcemia: Plan: Ms. Vega is a 48-year-old female with past medical history significant for metastatic breast cancer, diabetes, hypothyroidism history of hypercalcemia, depression with anxiety, peripheral neuropathy, history of small bowel obstruction was sent in because outpatient labs showed elevated calcium. Labs in the ER showed calcium of 12.3. This morning calcium level improved with aggressive IV hydration. Nephrology and Oncology consulted to follow patient. #Moderate hypercalcemia History of hypercalcemia in end of January 2023 received calcitonin ,fluids and Zometa Calcium is 12.3, down to 10.9 this am Continue aggressive IV fluids normal saline at rate of 200 mill per hour Repeat BMP in am Nephrology on consult: recommendations reviewed, continue IVF #Metastatic breast cancer #Acute on chronic cancer pain, bony mets to ribs #immunocompromised 2/2 malignancy History of chemo and radiation There was plan for starting chemo tomorrow as per patient Consulting oncology Started on Zosyn, doxy -Continue doxy for CAP, discontinue zosyn Started Fentanyl 50mcg patch (on 25 at home, notes no improvement but aggreeable to try) -Continue prn oxy #Cough -Reports "chest cold" Imaging unrevealing Biofire ordered Mucinex bid and flutter valve #Uncontrolled DM Continue home Lantus insulin Sliding scale Glycemic consult #Chronic normocytic anemia Hemoglobin 10.4--down to 9, likely hemoconcentration s/p IVF No signs of bleed CBC in am #Hypomagnesia Will replace #Hypothyroidism On Synthyroid DVT prophylaxis Lovenox Disposition Telemetry CODE STATUS DNR/DNI Patient requesting hopeful "prompt" discharge. Discussed that labs need to be stable and will be day by day discussion Admission and Anticipated Discharge Date Admission Date: April 19, 2023 Subjective Patient evaluated at bedside Reports she is "aggrevated" with always coming to hospital. She reports that her rib pain is much more intense and she has not had the opportunity to follow up with hospice for longer duration pain medication Physical Exam Constitutional: WD/WN, vitals as above Respiratory: occasional rhonchi, cleared with cough Cardiovascular: RRR, no murmur, no edema Gastrointestinal (Abdomen): normal bowel sounds, soft, nontender, no hepatos plenomegaly Results & Data Results & Data Vital Signs (Past 12 Hours) Vital Signs Temp Pulse Pulse Resp BP Pulse Ox O2 Del Method 04/20/23 15:08 36.6 C 93 H 18 126/83 95 Room Air 04/20/23 11:34 36.5 C 83 18 137/83 100 Room Air 04/20/23 10:38 90 04/20/23 07:52 36.5 C 93 H 18 122/84 95 Room Air Laboratory Results Short CBC 04/20/23 Range/Units 05:35 WBC 5.56 (4.8-10.8) K/ul Hgb 8.8 L (12.0-16.0) g/dl Hct 24.7 L (37.0-47.0) % Plt Count 204 (130-400) K/uL BMP 04/20/23 05:35 Sodium 133 L Potassium 3.8 Chloride 99 Carbon Dioxide 27 BUN 18 Creatinine 0.67 Glucose 238 H Calcium 10.9 H Urine 04/20/23 Range/Units 12:09 Urine Color Yellow Urine Appearance Clear (Clear) Urine pH 5.5 (4.5-7.5) Ur Specific [place] 1.027 (1.000-1.030) Urine Protein Negative (Negative) Urine Glucose (UA) Trace H (Negative) Medications Administered Home Medications Medication Instructions Recorded Confirmed Last Taken denosumab 120 mg/1.7 mL (70 mg/mL) 120 mg subcut .Q 3months 01/01/22 04/19/23 01/29/23 subcutaneous solution (Xgeva) blood-glucose sensor (Dexcom G6 12/17/22 04/19/23 Unknown Sensor device) blood-glucose transmitter (Dexcom 12/17/22 04/19/23 Unknown G6 Transmitter device) insulin aspart U-100 100 unit/mL 10 unit subcut AC 12/17/22 04/19/23 04/18/23 19:00 (3 mL) subcutaneous pen (Novolog FlexPen U-100 Insulin aspart) insulin glargine 100 unit/mL (3 30 unit subcut BID 12/17/22 04/19/23 04/19/23 08:00 mL) subcutaneous pen (Lantus Solostar U-100 Insulin) ondansetron HCl 8 mg tablet 8 mg PO Q12H PRN Nausea 12/17/22 04/19/23 Unknown pen needle, diabetic 32 gauge x 12/17/22 04/19/23 Unknown 5/32" (BD Ultra-Fine Aletha Pen Needle) oxycodone 10 mg tablet 10 - 20 mg PO Q4 PRN Pain 01/07/23 04/19/23 04/18/23 22:00 promethazine 25 mg tablet 25 mg PO TID PRN nausea and 01/26/23 04/19/23 Unknown vomiting #20 tabs Active Medications Generic Name Dose Route Start Last Admin Trade Name Freq PRN Reason Stop Dose Admin Enoxaparin Sodium 40 mg 04/19/23 21:37 04/19/23 23:29 Enoxaparin Inj 40 Mg/0.4 Ml Syr SQ 05/19/23 21:36 Not Given Q24H JESSE Fentanyl 50 mcg 04/20/23 16:30 04/20/23 17:38 Fentanyl 50 Mcg/Hr Tdsy TD 05/04/23 16:29 50 mcg Q3D JESSE Administration Hydromorphone HCl 0.5 mg 04/19/23 21:37 04/20/23 15:26 Hydromorphone Inj 0.5 Mg/0.5 Ml Syr IV 05/03/23 21:36 0.5 mg Q3H PRN Administration Severe Pain (Scale 7, 8, 9,10) Sodium Chloride 1,000 mls @ 200 mls/hr 04/19/23 21:37 04/20/23 18:19 Nss IV 05/19/23 21:36 200 mls/hr .Q5H JESSE Administration Piperacillin Sod/Tazobactam 100 mls @ 25 mls/hr 04/20/23 08:00 04/20/23 17:29 Sod 4.5 gm/ Dextrose IV 04/27/23 07:59 25 mls/hr Q8H JESSE Administration Protocol Doxycycline Hyclate 100 mg/ 100 mls @ 50 mls/hr 04/20/23 03:00 04/20/23 17:15 Dextrose IV 04/27/23 02:59 Infused Q12H JESSE Infusion Insulin Aspart 0 units 04/19/23 21:37 04/20/23 17:35 Insulin Aspart Per Unit Charge SC 05/19/23 21:36 13 units ACHS JESSE Administration Insulin Glargine 30 units 04/19/23 21:45 04/20/23 08:49 Lantus Per Unit Charge SQ 05/19/23 21:44 30 units BID JESSE Administration Magnesium Oxide 400 mg 04/20/23 09:00 04/20/23 10:33 Magnesium Oxide 400 Mg Tab PO 05/20/23 08:59 400 mg BID JESSE Administration Miscellaneous 1 each 04/20/23 16:30 04/20/23 17:39 Fentanyl Patch Remove & Waste N/A 05/20/23 16:29 Not Given Q3D JESSE
[2023-04-20] MEDS: guaiFENesin 600 MG TABCR PO SCH (19:52)
[2023-04-20 20:44] LABS: Adenovirus PCR Not Detected (NotDetected); Bordetella parapertussis PCR Not Detected (NotDetected); Bordetella pertussis PCR Not Detected (NotDetected); Chlamydia pneumoniae PCR Not Detected (NotDetected); Coronavirus 229E PCR Not Detected (NotDetected); Coronavirus CoV-2 (COVID19)PCR Not Detected (NotDetected); Coronavirus HKU1 PCR DETECTED (NotDetected); Coronavirus NL63 PCR Not Detected (NotDetected); Coronavirus OC43PCR Not Detected (NotDetected); Human Metapneumovirus PCR Not Detected (NotDetected); Influenza A PCR Not Detected (NotDetected); Influenza B PCR Not Detected (NotDetected); Mycoplasma pneumoniae PCR Not Detected (NotDetected); Parainfluenza Virus 1 PCR Not Detected (NotDetected); Parainfluenza Virus 2 PCR Not Detected (NotDetected); Parainfluenza Virus 3 PCR Not Detected (NotDetected); Parainfluenza Virus 4 PCR Not Detected (NotDetected); Respiratory Syncytial VirusPCR Not Detected (NotDetected); Rhinovirus/Enterovirus PCR Not Detected (NotDetected)
[2023-04-21] MEDS: CHECK fentaNYL PATCH PLACEMENT SCH (00:25)
[2023-04-21 06:29] LABS: Hematocrit (blood only) 25.3 % (37.0-47.0); Hemoglobin 8.6 g/dl (12.0-16.0); Mean Corpuscular Hemoglobin 29.8 pg (25.0-34.0); Mean Corpuscular Volume 87.5 fL (80.0-100.0); Mean Platelet Volume 8.8 fL (9.4-12.4); Platelet Count 202 K/uL (130-400); RDW Coefficient of Variation 15.2 % (11.5-14.5); RDW Standard Deviation 48.5 fL (36.4-46.3); Red Blood Count 2.89 M/uL (4.20-5.40); White Blood Count 5.89 K/ul (4.8-10.8)
[2023-04-21 06:52] LABS: Creatinine Clr Calc Pharmacy 113.3 ml/min; Est GFR (Non-African American) 89.8 ml/min; Magnesium 1.3 mg/dl (1.7-2.4); Phosphorus 4.7 mg/dl (2.5-4.9); Potassium 3.9 mmol/L (3.5-5.1)
--- NOTE | 2023-04-21 08:24 | Electrocardiogram Report ---
Test Reason : Blood Pressure : / mmHG Vent. Rate : 091 BPM Atrial Rate : 091 BPM P-R Int : 152 ms QRS Dur : 082 ms QT Int : 342 ms P-R-T Axes : 011 -11 016 degrees QTc Int : 420 ms Normal sinus rhythm Normal ECG When compared with ECG of 20-APR-2023 04:53, No significant change was found Confirmed by Ruben Chiu ([id number]) on 04/21/2023 8:24:43 AM Referred By: REFERRED SELF Confirmed By:Rachid Chiu
--- NOTE | 2023-04-21 08:37 | Nephrology Progress Note ---
Date of Service April 21, 2023 Assessment & Plan (1) Hypercalcemia: Plan: moderate hypercalcemia stable/plateau'd w/ saline tx -calcium not in a range where I would consider bisphosphonate at this time; no indication for calcitonin -continue aggressive NS current rate; again today no evidence of volume overload or NAGMA -daily bmp -f/u oncology and palliative recs (2) Hypomagnesemia: Plan: started po mag; would avoid slo mag d/t calcium content -check mag daily Admission and Anticipated Discharge Date Admission Date: April 19, 2023 Subjective no interval events. seen on midday rounds. no sob, no n/v, no abd pain or constipation, no confusion. no voiding concerns. waiting on palliative care for some pain control recs Review of Systems 2 Review of Systems: All systems reviewed & are unremarkable except as noted in Subjective Physical Exam 2 Constitutional: well developed and well nourished Eyes: EOM intact bilaterally ENMT: Ears: no external ear abnormality Nose: no external nose abnormality Mouth: + dry oral mucous membranes Neck: no nuchal rigidity Respiratory: normal respiratory effort Auscultation: + diminished lung sounds Cardiovascular: RRR, no murmur, no edema Gastrointestinal (Abdomen): Inspection/Auscultation: normal bowel sounds P ercussion/Palpation: abdomen soft; abdomen nontender Musculoskeletal: Extremities: strength 5/5 throughout Skin: no rashes, warm and dry Psychiatric: Orientation: alert and oriented x 3 Results & Data Vital Signs (Past 12 Hours) Vital Signs Temp Pulse Resp BP Pulse Ox O2 Del Method 04/21/23 07:37 36.8 C 89 16 114/72 94 Room Air 04/21/23 02:36 36.5 C 91 H 16 120/79 95 Room Air 04/20/23 22:53 36.6 C 92 H 18 119/79 95 Room Air Laboratory Results 04/21/23 05:59 04/21/23 05:59 mag 1.3 ca 11 iCa 1.6
--- NOTE | 2023-04-21 08:44 | Pharmacy Report ---
Pharmacy Glycemic Short Note 2 - Date of Service April 21, 2023 - Glycemic Short BSG Results (Last 24 hours): 04/20/23 04/20/23 04/20/23 11:20 17:04 17:04 Glucose POC Glucose 259 H 318 H* 310 H* 04/20/23 04/21/23 04/21/23 20:58 05:59 07:41 Glucose 133 H POC Glucose 232 H 167 H OUTPATIENT ANTIDIABETIC REGIMEN: * Lantus 30 units SC BID * Novolog 10 units SC AC HbA1c: 9.3% (02/08/23) ASSESSMENT: * SHAMAR is a 48 year old female w/ metastatic breast cancer, admitted on 04/19/23 w/ hypercalcemia * Pharmacy consulted for glycemic management last evening due to persistent hyperglycemia (BSG > 300 mg/dL at time of consult) * Received 102 units of insulin yesterday (60 units of basal and 42 units of prandial/correctional bolus) * Review of prior admission data from January 2023 shows much lesser insulin requirements * Anticipate need for basal dose reduction today * NSS@200 mL/hr infusing PLAN FOR INPATIENT GLYCEMIC CONTROL: * Basal insulin * Previously ordered Lantus 30 units SQ BID, will decrease to basal scale 0-10-20 units SC BID (30 units given this AM) * Bolus insulin * NovoLog per scale ACHS or Q6hrs while NPO * Goal Range: Low 110 mg/dL - High 140 mg/dL * Correction Factor: 20 mg/dL/unit * Nutritional / Prandial insulin per carb ratio of 1 unit per 6 grams CHO consumed
[2023-04-21] MEDS: ONDANSETRON INJ 2 MG/ML 2 ML VIAL IV SCH (14:27)
[2023-04-21] MEDS ORDERED: HEPARIN 100 UNIT/ML 5ML FLUSH FLUSH PRN (14:36)
--- NOTE | 2023-04-21 17:00 | Hospitalist Progress Note ---
Date of Service April 21, 2023 Assessment & Plan (1) Hypercalcemia: Plan: Ms. Vega is a 48-year-old female with past medical history significant for metastatic breast cancer, diabetes, hypothyroidism history of hypercalcemia, depression with anxiety, peripheral neuropathy, history of small bowel obstruction was sent in because outpatient labs showed elevated calcium. Labs in the ER showed calcium of 12.3. This morning calcium level improved with aggressive IV hydration. Nephrology and Oncology consulted to follow patient. #Moderate hypercalcemia History of hypercalcemia in end of January 2023 received calcitonin ,fluids and Zometa Calcium is 12.3, down to 10.9 this am Continue aggressive IV fluids normal saline at rate of 200 mill per hour Repeat BMP in am Nephrology on consult: recommendations reviewed, continue IVF 04/21 Calcium 11 Continue IV fluids Nephrology service on board, appreciate the recommendations #Metastatic breast cancer #Acute on chronic cancer pain, bony mets to ribs #immunocompromised 2/2 malignancy History of chemo and radiation There was plan for starting chemo tomorrow as per patient Consulting oncology Started on Zosyn, doxy -Continue doxy for CAP, discontinue zosyn Started Fentanyl 50mcg patch (on 25 at home, notes no improvement but aggreeable to try) -Continue prn oxy 04/21 Continue doxycycline Still reporting significant pain Will request palliative care consultation regarding pain medication recommendations in this patient with metastatic breast cancer #Cough -Reports "chest cold" Imaging unrevealing Biofire ordered Mucinex bid and flutter valve #Uncontrolled DM Continue home Lantus insulin Sliding scale Glycemic consult #Chronic normocytic anemia Hemoglobin 10.4--down to 9, likely hemoconcentration s/p IVF No signs of bleed CBC stable overall #Hypomagnesia Will replace #Hypothyroidism On Synthyroid DVT prophylaxis Lovenox Disposition Telemetry CODE STATUS DNR/DNI anticipate d/c home tomorow Admission and Anticipated Discharge Date Admission Date: April 19, 2023 Subjective Follow-up for hypercalcemia, metastatic breast cancer, etc. Seen resting in bed, sleeping but easily awakened Comfortable, not in distress States she is still having significant pain, fentanyl patch only providing some mild improvement overall no chest pain, dyspnea, palpitations, dizziness States her mood is okay, denies being depressed No other new symptom Review of Systems Review of Systems: all noted and negative except for above Physical Exam Physical Exam: General- oriented x 3, not in distress, speaks in sentences with no effort or accessory muscle use Eyes- anicteric Neck- no JVD Lungs- clear breath sounds bilaterally, no rales/wheezes Heart- normal rate, regular rhythm; no murmurs Abdomen- normal bowel sounds, nondistended, soft, nontender Extremities- no pretibial edema, no calf tenderness Neuro- alert, oriented x 3; no gross focal neurologic deficits Skin- warm & dry Results & Data Results & Data Vital Signs (Past 12 Hours) Vital Signs Temp Pulse Pulse Resp BP Pulse Ox O2 Del Method 04/21/23 16:07 89 04/21/23 15:23 36.7 C 79 20 153/93 H 94 Room Air 04/21/23 11:48 36.9 C 88 16 125/77 98 Room Air 04/21/23 09:24 87 04/21/23 07:37 36.8 C 89 16 114/72 94 Room Air all noted and reviewed including below
[2023-04-21] MEDS: MAGNESIUM SULFATE / D5W 1 GM/100 ML BAG IV SCH (17:34)
[2023-04-21] MEDS: ONDANSETRON INJ 2 MG/ML 2 ML VIAL IV PRN (20:47)
[2023-04-21] MEDS: LANTUS PER UNIT CHARGE SQ SCH (20:49)
[2023-04-21] MEDS: DOCUSATE SODIUM/SENNA 50/8.6MG TAB PO STA (21:42)
[2023-04-21] MEDS: PROMETHAZINE HCL 12.5 MG in SODIUM CHLORIDE 0.9% 50 ML IV PRN (22:18)
[2023-04-22 07:47] LABS: BUN Creatinine Ratio 13.6 (10-20); Calcium 11.4 mg/dl (8.6-10.3); Creatinine Clr Calc Pharmacy 135.6 ml/min; Est GFR (African American) 122.8 ml/min; Est GFR (Non-African American) 105.9 ml/min; Magnesium 1.7 mg/dl (1.7-2.4)
[2023-04-22] MEDS: DOCUSATE SODIUM/SENNA 50/8.6MG TAB PO SCH (08:54)
--- NOTE | 2023-04-22 09:54 | Palliative Care Consultation ---
Date of Consultation April 22, 2023 Assessment & Plan (1) Cancer related pain: Yamilka was using Oxycodone 90mg orally/day prior to admission Oxy IR 90mg = MS IR 180mg PO MS IR 180mg PO = 60mg IV MS equivalents This is roughly about 50mcg TDF but she is having more pain now and the dose equivalent equals her prior to admission baseline and does not account for increased pain Will increase to TDF 75mcg patch, use Oxy IR 20mg PO q4h prn/hold for somnolence or RR<14/min (2) Cancer-related breakthrough pain: see #1 (3) Weakness generalized: (4) Breast cancer metastasized to bone: Laterality: unspecified laterality Qualified Code(s): C50.919 - Malignant neoplasm of unspecified site of unspecified female breast; C79.51 - Secondary malignant neoplasm of bone (5) Advanced care planning/counseling discussion: Met with Yamilka face to face at bedside for 60min ACP discussion With her consent and voluntary participation we discussed her progressive met breast ca, the journey she had over past 8 years and the struggles she faces. She has 3 children, ages 21, 14 and 10 years old. She does not have any support their fathers. She states that at one point she was working 3 jobs to support her family and she feels that they have always had a relatively decent life. When her cancer began to progress and the effects of her cancer directed therapy began to take a toll, she was forced to stop working. She is currently collecting disability and some social security income. This is less than the third of her prior income. She recently had to to a new home in [facility] and her rent is now nearly 3 times higher than previous. She is allotted food stamps of approximately $200 per month and notes that this does not feed a family of 4 for more than a few days. She does get occasional support from other family members who occasionally will drop off groceries as well as from her oldest son who is an adult. She has not been able to get any support from the fathers of her 2 minor children and notes that they are years behind on their child support payments. In addition, the fathers of her 2 minor children have had no contact with their children for over 5 years. She is aware that her cancer has progressed on several lines of therapy. She was scheduled to start a new chemotherapy this week but has been admitted for this current hypercalcemic admission. She tells me that she has discussed with oncology that if she has progression on this new therapy that they are going to start, that she would not pursue further cancer directed therapy as she is aware that the cancer is reaching a terminal stage. She has already elected a DNR DNI status which she confirms with me today. She states that she has discussed this very directly with her family and they are all supportive and in agreement with her choices. She does not want to linger on machines or in any compromised or debilitated way. We discussed the advantage of filling out a POLST form which she is agreeable to and can be done in our follow-up outpatient clinic visit. She is hoping to be discharged today noting that there is an important family event planned for this weekend that she would like to be a part of. I have communicated this request to the primary team. She is very aware of her mortality. She has concerns about the guardianship transfer of her children upon her , noting that her 21-year-old is truly not mature enough or capable of taking on 2 minor children. Her 14-year-old son is on the autism spectrum and require specialized support although she notes he is relatively high functioning. She has had some family member say they would be willing to take on 1 or both of the children but notes that some of those family members may not be appropriate for guardianship and others have been people with him the children have not wanted to go live with on a long-term basis. Family members who have offered to take in 1 child but not both she has taken off the list of consideration for possible guardianship as it is her hope to keep her children together. She has not pursued formalizing guardianship paperwork due to cost. I provided her with the contact information to [facility] legal services. (6) Palliative care by specialist: Met with pt/family. Provided overview of Palliative Medicine, a subspecialty karel t provides specialized medical care for people living with a serious illness by offering a focus on quality of life. Palliative Medicine is often conflated with hospice: I advised patient/family that Palliative and hospice can be partners but we are not the same. It is important to understand the difference so that we may be informed, and not afraid. Palliative Medicine works to improve QOL through reduction of symptom burden/more control over their illness, for both the patient and family. Palliative medicine clinicians are board certified, specially-trained and another member of the patient's medical care team. We often provide an extra layer of support because our care is based on the needs of the patient, not the prognosis; as such, it's appropriate at any age/advancing stage of a serious illness and can be provided along with curative treatment. Palliative Medicine clinicians are also trained in advanced communication methodologies, to facilitate complex discussions about advanced illness planning, which are needed to help assure that the treatment choices match the patient's goals, aka delivering Goal Concordant care. Finally, we discussed that hospice is a visiting nurse service that focuses on care delivered at the very end of life for patients with terminal illness, with life expectancy less than 6 month. Plan * Increased to transdermal fentanyl 75 mcg/h every 72 hours * Stop IV hydromorphone * Begin Oxy IR 20 mg every 4 hours as needed for breakthrough pain, hold for somnolence or respiratory rate less than 14/min * Continue bowel regimen to prevent the development of opioid-induced constipation * Continue hydration and treatment for hypercalcemia * Patient will follow-up with me in outpatient palliative medicine clinic. Plan to complete a POLST form at that time. * She confirms election of DNR/DNI for CODE STATUS. She does not wish to pursue aggressive or escalating medical interventions in the setting of an advancing terminal illness or imminent . She would be interested in the establishment of home hospice if time would allow this at the later stages of her illness. Thank you for allowing us to participate in the ongoing care of this patient. Please don't hesitate to call or page with any additional concerns. Dr. Luna Limon DNP Director, Palliative Care History of Present Illness Reason for Consultation: On 04/21/23 @ 10:20 Salvador Norton Wrote To Luna Limon breast ca with mets, pain management Attending Physician: Salvador Norton MD History of Present Illness Yamilka is a 48yo female with hypercalcemia in setting of medical hx which includes metastatic breast cancer with severe cancer related pain/uncontrolled, DM, hypothyroidism history of hypercalcemia, depression with anxiety, peripheral neuropathy, history of small bowel obstruction. She has had breast ca progression on several lines of therapy. She will be starting eribulin per recent heme onc note 04/20/23. 04/20/23 CORONAVIRUS Detected She came to ED at direction of her outpt clinic when labs revealed elevated calcium. Labs in the ER showed calcium of 12.3 and she has had ongoing issues with hypercalcemia including recent admission Jan 2023 requiring treatment with calcitonin, IVF and Zometa. During Jan aadmission she was also found to be RSV positive but this admission she is covid+ but RSV negative. Presently, the calcium level has reduced to 10.9 yesterday and she remains on aggressive IVF with NS 200ml/hr She is followed by Dr Vazquez in [facility] She completed RT with Jesse Jack/Nita Miguel in Rad Onc clinic. Oncology HX - copied from excellent Rad Onc note 03/02/23 /Jesse Jack: Diagnosis: 10/2015. Breast cancer. 2021. Metastatic breast cancer. 11/08/2015. Abnormal breast mammogram. 11/12/2015 status post ultrasound-guided biopsy of left and right breast masses. Left breast shows invasive ductal carcinoma grade 1. ER positive/OK positive and HER2/rupert negative. Right breast benign. 11/19/2015. Genetic testing negative. 11/25/2015. Status post right breast lumpectomy with sentinel lymph node biopsy. Stage pT2pN1. Status post systemic chemotherapy with Adriamycin and Cytoxan followed by Taxol. 07/15/2016. Status post completion of radiation therapy. She received 6640 cGy. 07/28/2016. Initiation of anastrozole and Zoladex. 09/10/2017. Follow-up mammography with suspicious area right breast. 10/15/2017. Biopsy reveals invasive ductal carcinoma, grade 1. ER positive OK positive HER2/rupert 1+. 11/10/2017. PET/CT. Finding of metastatic lytic and blastic lesions. 10/2017. Palbociclib and Faslodex. Xgeva. 03/08/2018. CT revealing progressive bony disease and new left lower lobe lung nodule. 03/29/2018. Left lower lobe lung resection. Chronic organizing pneumonia no evidence of malignancy. 10/17/2018. CT's and bone scan show bone metastasis and no visceral disease. 2019. Xgeva changed to every 3 months. 03/08/2020. CT abdomen pelvis. No evidence of progressive metastatic disease. 12/03/2020. Recheck CT showing no evidence of progressive metastatic disease. 06/04/2021. Extensive osteoblastic metastatic disease. 06/04/2021. CT chest abdomen and pelvis. Extensive osseous metastatic disease. Majority of metastatic foci are similar. Faint groundglass changes right middle lobe and within the central lower lobe. 10/07/2021. Bone scan. Slight increase in radiotracer uptake with multiple skeletal metastasis since bone scan of June 04, 2021. 10/30/2021. CT chest abdomen pelvis. Interval development of a healing right lateral sixth rib pathologic fracture. No significant change in extensive multifocal osteoblastic metastatic disease. This is most prominent at the level of T9 which demonstrates breakthrough at the posterior cortex of the vertebral body and a small amount of tumor extension into the epidural space. 11/07/2021. Lesvia Zapien performed a telehealth visit to review outcome of recent restaging procedures with CT scans of the chest abdomen and pelvis. He noted the patient has been on oxycodone 10 mg p.o. every 4-6 hours for skeletal pain. Patient was to continue on her current treatment scheme. However ultimately due to increasing pain radiation referral was made. 01/01/2022. Patient seen in radiation oncology for evaluation and discussion of the role of palliative radiation. 04/08/2022. Bone scan. IMPRESSION: Increase in degree of radiotracer uptake within known skeletal metastases with a few new small foci of radiotracer uptake. The findings favor progression of skeletal metastatic disease. Flare response related to treatment could appear similar although is considered less likely. 04/15/2022. Fulvestrant/palbociclib therapy discontinued 04/16/2022. Surgical consultation (Dr. Banuelos). Patient to have port placement. Following up on a wound of the buttock. 05/21/2022-07/01/2022. Weekly low-dose paclitaxel. 07/30/2022. CT of the abdomen. IMPRESSION: 1. Extensive osteoblastic metastatic disease. This is similar to the prior study. No acute fractures. 2. The visualized loops of bowel show no wall thickening or obstruction. 3. Splenomegaly, unchanged. 4. Small nodular densities the basal left lower lobe favor atelectasis, post radiation changes, or a low-grade pneumonitis. Metastatic disease is considered less likely. Attention at follow-up recommended to ensure resolution. 08/14/2022. Initiation of Xeloda 2 weeks on and 1 week off. She continues on denosumab every 3 months. Xeloda stopped after 2 cycles due to diarrhea. 08/20/2022. Left hip x-ray. IMPRESSION: 1. Again seen is multifocal osteoblastic metastatic disease. 2. There is no radiographic evidence of left femoral fracture. 08/26/2022. PET/CT. 1. Numerous FDG avid skeletal lesions consistent with metastatic disease. Overall, increase in extent of skeletal metastatic disease since PET/CT of November 10, 2017. Findings are stable to slightly increased since bone scan of April 08 2022 when allowing for differences in technique. 2. No visceral metastases. 3. Asymmetric enlargement of the right ovary with moderate FDG uptake. This is nonspecific and a pelvic ultrasound could be obtained for further evaluation. 4. Asymmetric radiotracer uptake within the right thyroid lobe likely corresponding to a thyroid nodule. A thyroid ultrasound could be obtained for further evaluation. 08/28/2022. Medical oncology follow-up (Dr. Newby). Continues on Xeloda. Receives denosumab every 3 months. 09/03/2022. Wound clinic. Treatment of right buttock wound. This is improving. 09/10/2022. Genetic testing with guardian 360. Variants of uncertain clinical significance. 10/06/2022. Medical oncology follow-up. Continue current therapy. Refill pain medication. 10/14/2022. Medical oncology follow-up. Plan reduced dose of Xeloda. Patient is having rib pain. She is referred to radiation oncology. 11/16/2022. Chest CT. IMPRESSION: 1. Findings suggestive of mild progression of skeletal metastatic disease since PET/CT of August 26, 2022. 2. No thoracic lymphadenopathy. No suspicious pulmonary nodules. 11/16/2022. CT of abdomen and pelvis. IMPRESSION: 1. There is no evidence of progressive metastatic disease in the abdomen or pelvis. 2. Findings of extensive/diffuse multifocal osteoblastic metastatic disease have not appreciably changed as compared to 08/26/2022. 3. Splenomegaly. 4. Hepatomegaly and mild steatosis. 5. Trace nonspecific free fluid is seen in the cul-de-sac. 6. The bladder wall appears circumferentially thickened. Correlate with clinical findings and urinalysis. 11/27/2022. Medical oncology follow-up. Review of studies. Reduced dose of Xeloda recommended. 12/08/2022. Medical oncology note. Plan for monotherapy with gemcitabine. 12/10/2022. Cycle 1 day 1 of gemcitabine. 12/23/2022. Radiation oncology consultation. Referral due to acute rib pain. Patient stated she had rib pain 1 month ago. This was on the lateral right chest wall. She previously had rib pain on the left. And that resolved. She states currently she is not having pain in the ribs. She does have discomfort if she lays on the side. 12/24/2022. Cycle 1 day 8 of gemcitabine depending on liver function studies. She will continue on denosumab every 3 months. Treatment: 07/15/2016. Status post completion of radiation therapy. She received 6640 cGy. 02/05/2022. Radiation therapy stopped. She received 9 of a planned 10 reactions. 2700 cGy. Patient missed multiple appointments and then stopped. 01/20/2023. Patient stopped radiation therapy. She had received 4 of 5 fractions. She received 1600 centigrade. Treatment given to the right ribs. Allergies Allergy/AdvReac Type Severity Reaction Status Date / Time No Known Allergies Allergy Verified 04/19/23 17:28 Home Medications Medication Instructions Recorded Confirmed Type denosumab 120 mg/1.7 mL (70 mg/mL) 120 mg subcut .Q 3months 01/01/22 04/19/23 History subcutaneous solution (Xgeva) blood-glucose sensor (Dexcom G6 12/17/22 04/19/23 History Sensor device) blood-glucose transmitter (Dexcom 12/17/22 04/19/23 History G6 Transmitter device) insulin aspart U-100 100 unit/mL 10 unit subcut AC 12/17/22 04/19/23 History (3 mL) subcutaneous pen (Novolog FlexPen U-100 Insulin aspart) insulin glargine 100 unit/mL (3 30 unit subcut BID 12/17/22 04/19/23 History mL) subcutaneous pen (Lantus Solostar U-100 Insulin) ondansetron HCl 8 mg tablet 8 mg PO Q12H PRN Nausea 12/17/22 04/19/23 History pen needle, diabetic 32 gauge x 12/17/22 04/19/23 History 532" (BD Ultra-Fine Aletha Pen Needle) oxycodone 10 mg tablet 10 - 20 mg PO Q4 PRN Pain 01/07/23 04/19/23 History promethazine 25 mg tablet 25 mg PO TID PRN nausea and 01/26/23 04/19/23 Rx vomiting #20 tabs Patient History Medical History (Updated 04/22/23 @ 12:46 by Luna Limon DNP) Palliative care by specialist Advanced care planning/counseling discussion Breast cancer metastasized to bone Weakness generalized Cancer-related breakthrough pain Cancer related pain History of COVID-19 12/2020 + 12/2021 > residual taste dysfunction and feeling of need to clear throat Bilateral breast cancer Arthritis Liver spots "Mets from cancer" Depression with anxiety Peripheral neuropathy Heart palpitations R/t anxiety per patient Type II diabetes mellitus History of small bowel obstruction Hx bowel obstruction Hypothyroidism No current meds Breast cancer (11/12/15) Stage 4 (+ mets) Surgical History History of tubal ligation Port-A-Cath in place (04/30/22) Insertion Access Port left subclavian with Fluoroscopy(Left) - Chad Banuelos DO History of surgery Left Excisional Debridement of Buttock Wound Nausea and vomiting after administration of anesthetic agent "EXTREME" History of vascular access device PORT INSERTION/REMOVAL History of tooth extraction History of endometrial ablation History of bowel resection D/T BOWEL OBSTRUCTION History of lung surgery Left thoracoscopy with wedge resection left lower lobe Dr. Damico 03/29/2018 History of dilatation and curettage H/O hernia repair Hx of section x3 S/P lumpectomy, left breast LEFT ARM LIMB RESTRICTION Family History Mother , 77yo Diabetes Heart disease Aortic valve replacement Mitral valve calcifications UTI (urinary tract infection) Father , 62yo Diabetes Myocardial infarction Hypertension Stroke Brother Diabetes Myocardial infarction Cardiac stents Pacemaker Hypertension Sister No problems noted. Daughter No problems noted. Son No problems noted. Son No problems noted. 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 Mild distress noted. Mild bitemporal wasting. She appears older than stated age. Pupils are equal round and reactive to light. Dentition is poor, she is edentulous. Mucosal membranes are slightly dry. Respiratory effort normal. Neck is supple. No stridor. Anterior lung exam with slightly diminished breath sounds, no overt rhonchi or wheezing. Heart tones S1-S2. No murmur. No JVD. Abdomen is soft. Nontender. Bowel sounds present throughout. Generalized weakness throughout. Slightly weaker on the left than the right. Skin is pale, warm to touch. Multiple tattoos across the skin noticed. Patient is awake, alert and oriented x 3. She is able to cooperate fully with the exam and follows commands. Delirium screen is negative. Results & Data Vital Signs (Past 12 Hours) Vital Signs Temp Pulse Pulse Resp BP Pulse Ox O2 Del Method 04/22/23 07:30 36.5 C 80 18 130/84 97 Room Air 04/22/23 03:50 36.6 C 95 H 14 128/82 95 Room Air 04/21/23 23:15 36.4 C L 93 H 14 120/71 92 Room Air 04/21/23 22:38 88 Laboratory Results Data reviewed Diagnostic Findings Data reviewed PG Care Time/CCT Total # of Minutes Spent Total Time Spent with Patient: Total time spent is greater than 50% in coordination of care (as documented) at patient's floor/unit and/or counseling patient: I spent 130 minutes overall addressing this case: 15 min in medical data review/discussion with referring provider(s) and/or preparation for the visit 25 min in direct interaction with the patient/exam 60 min in Advance Care Planning/Goals of Care discussions as detailed above in note (must be >16min) 15 min in subsequent review and synthesis of assessment and plan 15 min communicating with other providers regarding the patient's case: Nursing, primary team, oncology. Advanced Care Planning 79709 Advanced Care Planning 30 Min 12581 Advanced Care Planning Additional 30 [place] [address] IN/OBS CONSULT LVL 5,80M Patient Type New History Comprehensive Exam Comprehensive Medical Decision Making High Complexity Diagnoses Cancer related pain G89.3 Cancer-related breakthrough pain G89.3 Weakness generalized R53.1 Carcinoma of breast metastatic to bone, unspecified laterality C50.919; C79.51 Laterality: unspecified laterality Advanced care planning/counseling discussion Z71.89 Palliative care by specialist Z51.5 Additional Codes Advanced Care Planning - 33019 Advanced Care Planning 30 Min: 34313 Advanced Care Planning 30 Min ([id number]) Advanced Care Planning - 07102 Advanced Care Planning Additional 30 Min: 38901 Advanced Care Planning Additional 30 Min ([id number])
[2023-04-22] MEDS: LANTUS PER UNIT CHARGE SC SCH (10:17)
--- NOTE | 2023-04-22 11:41 | Nephrology Progress Note ---
Date of Service April 22, 2023 Assessment & Plan (1) Hypercalcemia: Plan: moderate hypercalcemia worsening despite aggressive saline tx; no sx; hypercalcemia of malignancy until proven otherwise pt anxious for d/c and has been asx this whole time -check D stores > may need repletion if low; appreciate hospitalist effort to add this to lab from this am -though her calcium levels are not so severe to need bisphosphonate on the face of it, calcium levels will certainly climb if I stop saline (and even w/ continuing it based on past few days) >> will give zolendronate 4 mg IV x 1 -she had a denosumab infusion in Oct at [facility] and missed her Jan infusion d/t hospital stay >> slated for repeat infusion mid April which should also help with recurrent hypercalcemia Case d/w Dr Vazquez >updated him on care this admission for calcium >he can give further zometa as needed as OP or /and prolia as indicated NEPHRO D/C RECS >Dr Vazquez to review chemistries on 04/26 > BMP + mag; pls have RN order under his name -d/c on mag ox >no indication for nephro f/u at this time Care coordinated w/ George Acosta re medications, follow up labs and all in agreement iwth above (2) Hypomagnesemia: Plan: started po mag; would avoid slo mag d/t calcium content -check mag daily (3) Breast cancer metastasized to bone: Admission and Anticipated Discharge Date Admission Date: April 19, 2023 Subjective pt seen and evaluated midday. pain better controlled though still present. some N but tolerating po. no constipation no sob desires d/c home ngoc Review of Systems 2 Review of Systems: All systems reviewed & are unremarkable except as noted in Subjective Physical Exam 2 Constitutional: well developed and well nourished Eyes: EOM intact bilaterally ENMT: Ears: no external ear abnormality Nose: no external nose abnormality Mouth: + dry oral mucous membranes Neck: no nuchal rigidity Respiratory: normal respiratory effort Auscultation: + diminished lung sounds Cardiovascular: RRR, no murmur, no edema Gastrointestinal (Abdomen): Inspection/Auscultation: normal bowel sounds P ercussion/Palpation: abdomen soft; abdomen nontender Musculoskeletal: Extremities: strength 5/5 throughout Skin: no rashes, warm and dry Psychiatric: Orientation: alert and oriented x 3 Results & Data Vital Signs (Past 12 Hours) Vital Signs Temp Pulse Resp BP Pulse Ox O2 Del Method 04/22/23 10:59 36.8 C 85 16 112/67 93 Room Air 04/22/23 07:30 36.5 C 80 18 130/84 97 Room Air 04/22/23 03:50 36.6 C 95 H 14 128/82 95 Room Air Laboratory Results 04/21/23 05:59 04/22/23 07:08 (3) Breast cancer metastasized to bone Laterality: unspecified laterality Qualified Code(s): C50.919 - Malignant neoplasm of unspecified site of unspecified female breast; C79.51 - Secondary malignant neoplasm of bone
[2023-04-22] MEDS: ZOLEDRONIC ACID 4 MG in SODIUM CHLOR 0.9% MINI-B 100 ML IV ONE (12:12)
[2023-04-22] MEDS ORDERED: oxyCODONE HCL IR 5 MG TAB (IMMEDIATE RELEASE) PO PRN (12:38)
[2023-04-22] MEDS: fentaNYL 75 MCG/HR TDSY TD SCH (14:54)
[2023-04-22] MEDS ORDERED: CHECK fentaNYL PATCH PLACEMENT SCH (16:00)
--- NOTE | 2023-04-22 17:16 | Discharge Summary ---
Discharge Summary Date of Service April 22, 2023 Notes For Next Care Provider Medication Changes From Visit Fentanyl increased to 75 mcg every 3 days Oxycodone increased to 20 mg every 4 hours as needed for breakthrough pain Magnesium oxide twice daily Admission HPI Per Admitting Provider 48-year-old female with past medical history significant for metastatic breast cancer, diabetes, hypothyroidism history of hypercalcemia, depression with anxiety, peripheral neuropathy, history of small bowel obstruction was sent in because outpatient labs showed elevated calcium. Labs in the ER showed calcium of 12.3. Patient complains of right-sided chest pain. More with taking deep breaths. Has some cough. Denies any fevers. No headache. No runny nose or sore throat. No nausea. No abdominal pain. Normal bowel and bladder movements. Hemodynamics are okay. Past medical history. As mentioned above Past surgical history. Left excisional debridement of buttock wound. History of tooth extraction. History of endometrial ablation. History of bowel resection. Left thoracoscopy with wedge resection of left lower lobe. History of dilatation curettage. History of hernia repair. History of x 3. Left breast lumpectomy. Family history. Mother had diabetes. Multiple replacement. UTI. Father had diabetes. [place]. Hypertension. Stroke. Brother has diabetes. [place]. Pacemaker. Hypertension. Social history. No smoking. No alcohol use. No drug use. , Admission Exam Per Admitting Provider General- Not in distress Head- atraumatic Eyes- PERRL. ENT- oropharynx clear Neck- supple, no JVD. Lungs- clear to auscultation no wheezing or crackles. Heart- regular rhythm; no murmur, no gallop. Abdomen- normal bowel sounds, soft, nontender, no distension Extremities- no erythema seen Neuro- alert, oriented ; PERRL, no facial palsy; no dysarthria; moves extremiti es. Skin- warm & dry Principal Dx & Hospital Course #1 = Principal Diagnosis (1) Hypercalcemia: Ms. Vega is a 48-year-old female with past medical history significant for metastatic breast cancer, diabetes, hypothyroidism history of hypercalcemia, depression with anxiety, peripheral neuropathy, history of small bowel obstruction was sent in because outpatient labs showed elevated calcium. Labs in the ER showed calcium of 12.3. This morning calcium level improved with aggressive IV hydration. Nephrology and Oncology consulted to follow patient. #Moderate hypercalcemia History of hypercalcemia in end of January 2023 received calcitonin ,fluids and Zometa Calcium is 12.3, down to ~11 Nephrology service consulted Given IV NSS at 200 cc/h Also given zoledronic acid Cleared for discharge Repeat BMP and magnesium on April 26 Dr. Hinton coordinated care with patient's oncologist Dr. Vazquez will follow-up labs on Wednesday #Hypomagnesia Continue magnesium oxide twice daily Repeat magnesium level on April 26 #Metastatic breast cancer #Acute on chronic cancer pain, bony mets to ribs #immunocompromised 2/2 malignancy History of chemo and radiation There was plan for chemo as outpatient Still reporting significant pain requested palliative care consultation regarding pain medication recommendations in this patient with metastatic breast cancer Patient evaluated by Dr. Luna Limon next Recommend fentanyl patch 75 mcg every 3 days and changing oxycodone to 20 mg every 4 hours as needed for pain Follow-up with Dr. Limon as an outpatient # Coronavirus, not COVID Possible pneumonia Bio fire showing coronavirus, not COVID CT chest: 1. No pulmonary embolus. 2. Interval development of nodular densities most prominent in the peripheral right lung. These may represent infectious/inflammatory process, however metastatic disease cannot be entirely excluded. 3. Innumerable skeletal metastases as above. Given supportive care including Mucinex Also given empiric antibiotics: Zosyn, transition to doxycycline Respiratory status improving Discharged on 4 more days of doxycycline to complete 7-day course #Uncontrolled DM Continue home Lantus insulin Sliding scale Glycemic consult #Chronic normocytic anemia Hemoglobin 10.4--down to 9, likely hemoconcentration s/p IVF No signs of bleed CBC stable overall #Hypothyroidism On Synthyroid DVT prophylaxis Lovenox Disposition d/c home PCP ff up in 1 week Oncology ff up in 1 week CODE STATUS DNR/DNI anticipate d/c home tomorow Discharge Exam General- oriented x 3, not in distress, speaks in sentences with no effort or accessory muscle use Eyes- anicteric Neck- no JVD Lungs- clear breath sounds bilaterally, no rales/wheezes Heart- normal rate, regular rhythm; no murmurs Abdomen- normal bowel sounds, nondistended, soft, nontender Extremities- no pretibial edema, no calf tenderness Neuro- alert, oriented x 3; no gross focal neurologic deficits Skin- warm & dry Updated Medication List Medication Instructions Recorded Confirmed Type denosumab 120 mg/1.7 mL (70 mg/mL) 120 mg subcut .Q 3months 01/01/22 04/19/23 History subcutaneous solution (Xgeva) blood-glucose sensor (Dexcom G6 12/17/22 04/19/23 History Sensor device) blood-glucose transmitter (Dexcom 12/17/22 04/19/23 History G6 Transmitter device) insulin aspart U-100 100 unit/mL 10 unit subcut AC 12/17/22 04/19/23 History (3 mL) subcutaneous pen (Novolog FlexPen U-100 Insulin aspart) insulin glargine 100 unit/mL (3 30 unit subcut BID 12/17/22 04/19/23 History mL) subcutaneous pen (Lantus Solostar U-100 Insulin) ondansetron HCl 8 mg tablet 8 mg PO Q12H PRN Nausea 12/17/22 04/19/23 History pen needle, diabetic 32 gauge x 12/17/22 04/19/23 History 5/32" (BD Ultra-Fine Aletha Pen Needle) promethazine 25 mg tablet 25 mg PO TID PRN nausea and 01/26/23 04/19/23 Rx vomiting #20 tabs fentanyl 75 mcg/hr transdermal 75 mcg transdermal Q3D #10 ea 04/22/23 Rx patch magnesium oxide 400 mg (241.3 mg 400 mg PO BID 30 days #60 tabs 04/22/23 Rx magnesium) tablet oxycodone 10 mg tablet 20 mg (2 x 10 mg) PO Q4 PRN 04/22/23 04/19/23 Rx breakthrough pain #14 tabs sennosides 8.6 mg-docusate sodium 1 tab PO QAM 30 days #30 tabs 04/22/23 Rx 50 mg tablet (Senokot-S) Hospital Stay Data Consultations 04/19/23 19:21 ED Decision to Admit Stat 04/20/23 08:00 Consult Hematology Routine Consult Nephrology Routine 04/21/23 10:13 Consult Palliative Care Routine Diagnostic Imagining Performed Laboratory Results WBC 5.89 K/ul (4.8-10.8) 04/21/23 05:59 RBC 2.89 M/uL (4.20-5.40) L 04/21/23 05:59 Hgb 8.6 g/dl (12.0-16.0) L 04/21/23 05:59 Hct 25.3 % (37.0-47.0) L 04/21/23 05:59 MCV 87.5 fL (80.0-100.0) 04/21/23 05:59 MCH 29.8 pg (25.0-34.0) 04/21/23 05:59 MCHC 34.0 g/dL (32.0-36.0) 04/21/23 05:59 RDW Std Deviation 48.5 fL (36.4-46.3) H 04/21/23 05:59 RDW Coeff of Joshua 15.2 % (11.5-14.5) H 04/21/23 05:59 Plt Count 202 K/uL (130-400) 04/21/23 05:59 MPV 8.8 fL (9.4-12.4) L 04/21/23 05:59 Immature Gran % (Auto) 2.3 % 04/20/23 05:35 Neut % (Auto) 59.4 % 04/20/23 05:35 Lymph % (Auto) 26.4 % 04/20/23 05:35 [place] % (Auto) 7.0 % 04/20/23 05:35 Eos % (Auto) 4.5 % 04/20/23 05:35 Baso % (Auto) 0.4 % 04/20/23 05:35 Neut # (Auto) 3.30 K/uL (1.40-6.50) 04/20/23 05:35 Lymph # (Auto) 1.47 K/uL (1.20-3.40) 04/20/23 05:35 [place] # (Auto) 0.39 K/uL (0.11-0.59) 04/20/23 05:35 Eos # (Auto) 0.25 K/uL (0.00-0.50) 04/20/23 05:35 Baso # (Auto) 0.02 K/uL (0.00-0.20) 04/20/23 05:35 Immature Gran # (Auto) 0.13 K/uL (0.01-0.20) 04/20/23 05:35 Absolute Nucleated RBC 0.02 K/uL (0.00-0.12) 04/19/23 17:15 Nucleated RBC % (auto) 0.2 % 04/19/23 17:15 PT 10.5 Seconds (9.0-12.0) 04/19/23 17:15 INR 1.0 (0.9-1.1) 04/19/23 17:15 APTT 23 Seconds (21-31) 04/19/23 17:15 PTT Ratio 0.8 04/19/23 17:15 Sodium 137 mmol/L (136-145) 04/22/23 07:08 Potassium 4.0 mmol/L (3.5-5.1) 04/22/23 07:08 Chloride 105 mmol/L (98-107) 04/22/23 07:08 Carbon Dioxide 28 mmol/L (21-32) 04/22/23 07:08 Anion Gap 4 (3-11) 04/22/23 07:08 BUN 9 mg/dl (6-23) 04/22/23 07:08 Creatinine 0.66 mg/dl (0.6-1.2) 04/22/23 07:08 Est Cr Clr Drug Dosing 135.6 ml/min 04/22/23 07:08 Est GFR ( Amer) 122.8 ml/min 04/22/23 07:08 Est GFR (Non-Af Amer) 105.9 ml/min 04/22/23 07:08 BUN/Creatinine Ratio 13.6 (10-20) 04/22/23 07:08 Glucose 93 mg/dl (70-99(Fasting)) 04/22/23 07:08 POC Glucose 72 mg/dl (70-99) 04/22/23 11:45 Calcium 11.4 mg/dl (8.6-10.3) H 04/22/23 07:08 Ionized Calcium 1.62 mmol/L (1.12-1.32) H* 04/21/23 05:59 Phosphorus 4.7 mg/dl (2.5-4.9) D 04/21/23 05:59 Magnesium 1.7 mg/dl (1.7-2.4) 04/22/23 07:08 Total Bilirubin 0.6 mg/dl (0.2-1.0) 04/19/23 17:15 AST 19 U/L (13-39) 04/19/23 17:15 ALT 13 U/L (7-52) 04/19/23 17:15 Alkaline Phosphatase 189 U/L (34-104) H 04/19/23 17:15 Troponin I High Sens 2.8 pg/ml (0-14) 04/20/23 05:35 Total Protein 7.5 gm/dl (6.0-8.3) 04/19/23 17:15 Albumin 3.5 gm/dl (3.4-5.0) 04/19/23 17:15 Globulin 4.0 gm/dl (2.5-4.0) 04/19/23 17:15 Albumin/Globulin Ratio 0.9 (0.9-2) 04/19/23 17:15 Lipase 16 U/L (11-82) 04/19/23 17:15 Urine Color Yellow 04/20/23 12:09 Urine Appearance Clear (Clear) 04/20/23 12:09 Urine pH 5.5 (4.5-7.5) 04/20/23 12:09 Ur Specific [place] 1.027 (1.000-1.030) 04/20/23 12:09 Urine Protein Negative (Negative) 04/20/23 12:09 Urine Glucose (UA) Trace (Negative) H 04/20/23 12:09 Urine Ketones Negative (Negative) 04/20/23 12:09 Urine Blood Negative (Negative) 04/20/23 12:09 Urine Nitrite Negative (Negative) 04/20/23 12:09 Urine Bilirubin Negative (Negative) 04/20/23 12:09 Urine Urobilinogen Negative (Negative) 04/20/23 12:09 Ur Leukocyte Esterase 1+ (Negative) H 04/20/23 12:09 Urine WBC (Auto) >30 /hpf (0-5) H 04/20/23 12:09 Urine RBC (Auto) 0-4 /hpf (0-4) 04/20/23 12:09 U Hyaline Cast (Auto) 0 /lpf (0-5) 04/20/23 12:09 U Epithel Cells (Auto) 20-30 /lpf (0-5) H 04/20/23 12:09 Urine Bacteria (Auto) Negative (Negative) 04/20/23 12:09 Urine Crystals Not Reportable 04/20/23 12:09 Calcium Oxalate Crystal Present (None Prsent) A 04/20/23 12:09 Urine Yeast Present (None Prsent) A 04/20/23 12:09 Urine Sperm Not Reportable 04/20/23 12:09 Adenovirus (PCR) Not Detected (NotDetected) 04/20/23 19:39 B. pertussis DNA (PCR) Not Detected (NotDetected) 04/20/23 19:39 B.parapertussis DNA PCR Not Detected (NotDetected) 04/20/23 19:39 C. pneumoniae DNA (PCR) Not Detected (NotDetected) 04/20/23 19:39 Coronavirus OC43 (PCR) Not Detected (NotDetected) 04/20/23 19:39 Coronavirus HKU1 (PCR) DETECTED (NotDetected) A 04/20/23 19:39 Coronavirus 229E (PCR) Not Detected (NotDetected) 04/20/23 19:39 SARS-CoV-2 (PCR) Not Detected (NotDetected) 04/20/23 19:39 Coronavirus NL63 (PCR) Not Detected (NotDetected) 04/20/23 19:39 Human Metapneumovir PCR Not Detected (NotDetected) 04/20/23 19:39 Influenza Type A (PCR) Not Detected (NotDetected) 04/20/23 19:39 Influenza Type B (PCR) Not Detected (NotDetected) 04/20/23 19:39 M. pneumoniae (PCR) Not Detected (NotDetected) 04/20/23 19:39 Parainfluenza 1 (PCR) Not Detected (NotDetected) 04/20/23 19:39 Parainfluenza 2 (PCR) Not Detected (NotDetected) 04/20/23 19:39 Parainfluenza 3 (PCR) Not Detected (NotDetected) 04/20/23 19:39 Parainfluenza 4 (PCR) Not Detected (NotDetected) 04/20/23 19:39 RSV (PCR) Not Detected (NotDetected) 04/20/23 19:39 Entero/Rhino (PCR) Not Detected (NotDetected) 04/20/23 19:39 Impressions Chest CTA 04/19/23 17:01 CT angio chest PE protocol CLINICAL HISTORY: ro PE TECHNIQUE: Multidetector row helical CT of the chest was performed with angiographic protocol. Coronal and sagittal reformations were obtained. Coronal and sagittal MIPS were obtained from the axial data set and were submitted for review. Automated dose lowering techniques and/or adjustment according to patient size were utilized for this exam. CT DOSE: 791.03 mGy.cm Comparison: Comparison is made to CT radiation therapy chest 12/29/[address] chest 11/16/2022 FINDINGS: Lungs and pleura: Atelectasis is seen. Nodular densities are noted most prominently in the peripheral right lung measuring up to 12 mm. These are new from prior exam. Heart and pericardium: Heart size is normal. No pericardial effusion. Vessels: No evidence of pulmonary embolism. Mediastinum and abdullahi: Unremarkable. Chest wall and lower neck: Unremarkable. Abdomen: Unremarkable. Bones: Innumerable lytic and sclerotic lesions are seen throughout the skeleton. IMPRESSION: 1. No pulmonary embolus. 2. Interval development of nodular densities most prominent in the peripheral right lung. These may represent infectious/inflammatory process, however metastatic disease cannot be entirely excluded. 3. Innumerable skeletal metastases as above. ACT 112: Negative or not required by law. Electronically signed by: Mariano Guerrier M.D. 04/19/2023 7:14 PM Chest X-Ray 04/19/23 17:01 XR chest 1V portable CLINICAL HISTORY: L CP TECHNIQUE: Single frontal radiograph of the chest was obtained. Comparison: Comparison is made to chest radiograph 02/07/2023 FINDINGS: No lines and tubes are seen. The cardiomediastinal silhouette is normal. The lungs are clear. No evidence of pleural effusion or pneumothorax. IMPRESSION: No acute chest disease. ACT 112: Negative or not required by law. Electronically signed by: Mariano Guerrier M.D. 04/19/2023 5:42 PM Pending Results Patient Have Any Pending Studies at Discharge: Yes Discharge Instructions Given to Patient (Per Discharging Provider) PLEASE REFER TO YOUR NEW MEDICATION LIST AND FOLLOW INSTRUCTIONS CAREFULLY. YOUR NEW MEDICATIONS INCLUDE: Fentanyl patch-for steady control of pain Oxycodone IR 20 mg-as needed for breakthrough pain -No driving, operating machinery's while taking these medications -Please follow directions carefully and only use as per directions Hold for drowsiness, confusion, respiratory distress Senokot-S- laxative Magnesium supplement You need a repeat blood work on April 26, 2023 including basic metabolic profile with calcium level, and magnesium. Results should be forwarded to Dr. Vazquez-oncologist PLEASE CALL YOUR PRIMARY CARE PHYSICIAN OR RETURN TO THE ER IF WITH WORSENING OF SYMPTOMS, INCLUDING Increasing pain, weakness, muscle spasms, etc. FOLLOW UP WITH PRIMARY CARE PHYSICIAN IN 1 WEEK. FOLLOW-UP WITH ONCOLOGIST IN 1 TO 2 WEEKS. Total Time Total Time Spent Total Time Spent (In Minutes): >30 minutes
== END 2023-04-22 15:43 | disposition home or self-care (01) | DRG 641 ==
LOC: ED 15:52 → EDINP 20:44 → SUATTDRO 20:44 → 2S 21:51

== ENCOUNTER 2023-05-01 14:31 | Inpatient (IN) ==
--- NOTE | 2023-05-01 15:00 | XRay Report ---
XR chest 1V portable HISTORY: 48 years-old Female weakness acute weakness COMPARISON: 04/19/2023 TECHNIQUE: AP view of the chest FINDINGS: Cardiomediastinal and hilar silhouettes are within normal limits. A left subclavian [id number] cat heter is unchanged. No pneumothorax, pleural effusion or overt pulmonary edema. Chronic-appearing shyanne ateral rib fractures with multifocal mixed osteolytic and osteoblastic skeletal metastasis. Periphera l predominant reticular nodular opacities are again noted which are most pronounced in the mid to low er lung zones.. IMPRESSION: 1. Nonspecific peripheral mid to lower lung zone predominant reticulonodular opacities are redemonstr ated, better evaluated on the CTA chest from 04/19/2023. 2. Multifocal skeletal metastases redemonstrated with chronic rib fractures. ACT 112: Negative or not required by law. The above report was generated using voice recognition software. It may contain grammatical, syntax o r spelling errors. Electronically signed by: Ruddy Chen M.D. 05/01/2023 2:58 PM
--- NOTE | 2023-05-01 15:17 | Emergency Department Note ---
Impression & Plan Intractable vomiting, Coronavirus infection, UTI (urinary tract infection) ED Provider Note HISTORY OF PRESENT ILLNESS: Patient is a 48-year-old female presenting with lightheadedness and nausea. Patient reports she has stage IV metastatic breast cancer and put on a fentanyl patch last night. She reports that she was initially feeling okay, but right before bed she was feeling lightheaded and dizzy "like I was high." Her patch used to be 25 mcg but has recently been increased to 75 mcg. She states that since waking this morning she has been very dizzy like everything is spinning and has had nausea and persistent vomiting. Denies any abdominal pain. Denies any chest pain or shortness of breath. Reports that she did take the patch off and has showered and washed the area, but is still having current symptoms currently. Denies any fevers. ROS: as above PHYSICAL EXAM: Constitutional: Patient appears in no acute distress. HENT: Head: Normocephalic and atraumatic. Eyes: EOMI, PERRL Mouth/Throat: Mucous membranes moist. Neck: Trachea midline. Neck supple. Cardiovascular: RRR, No murmurs, rubs or gallops. Intact distal pulses. Pulmonary/Chest: No respiratory distress. Breath sounds clear and equal bilaterally. No wheezes or rales. Abdominal: Abdomen soft, no tenderness, rebound or guarding. Musculoskeletal: No edema, tenderness or deformity noted. Skin: Warm and dry. No rash, erythema, pallor or cyanosis Psychiatric: Appropriate mood and affect for situation. Neurological: Alert and keenly responsive. CN II-XII grossly intact, moving all extremities equally and fully. MDM: - Vitals signs showed hypertension. - History obtained via patient. Patient presents with lightheadedness and nausea. Patient reports that she has stage IV metastatic breast cancer and started on a new concentration of a fentanyl patch at 75 mcg last night. She reports she was initially feeling okay but right before bed she started feeling lightheaded and dizzy. She states that this morning she woke up and was feeling very dizzy and had nausea and persistent vomiting. Denies any abdominal pain. Denies any chest pain or shortness of breath. She reports she took the patch off and has showered and washed the area but her symptoms are still currently occurring. Denies any fevers. - Chronic conditions affecting care: metastatic breast cancer; hypothyroidism; DM-2 - Differential diagnoses include, but are not limited to: medication side effect; ACS; bowel obstruction; dehydration; electrolyte abnormality - Order placed for continuous cardiac monitoring. At this time, monitor showed rate of 99 bpm with normal sinus rhythm, per my interpretation. - External medical records reviewed. Discharge summary dated 04/22/2023 was reviewed. Patient did have her fentanyl patch increased during that visit to 75 mcg every 3 hours. - EKG interpreted by myself showed normal sinus rhythm. Rate 89 bpm. QT 374. No acute ischemic changes. - Laboratory workup interpreted by myself showed leukopenia (WBC 3.14); anemia (Hgb 9.0); slight hyponatremia (Na 132); elevated anion gap (14); hyperglycemia (glucose 397); elevated lactate (3.0); normal troponin - UA showed concern for infection - Respiratory viral panel positive for coronavirus type HKU1 - CXR negative for pneumonia, per my interpretation. - Patient given 2L NS and 4 mg IV zofran on arrival. Repeat lactate after fluid resuscitation was improved. However, on reassessment, the patient is again vomiting and complaining of pain in her R hip. Initially ordered 50 mcg IV fentanyl, but patient declined given her presenting symptoms and concern that they were effects of the fentanyl patch. She was then ordered an additional 4 mg IV zofran, 0.5 mg IV dialudid, 1L NS and 10 units insulin. - 2g IV rocephin ordered for UTI treatment. - Patient still complaining of nausea and again vomited, so we will admit to the hospitalist service for intractable vomiting and her UTI. - Discussion was had with showcase trimmer about patient's case and need for admission - Hospitalist consulted for admission - Patient admitted to [facility] hospitalist service for further evaluation and management. ASSESSMENT AND PLAN: Diagnosis: intractable vomiting; coronavirus infection; UTI Plan: admit Past Med/Surg History Medical History (Updated 05/01/23 @ 21:41 by Nicole Carias MD) Palliative care by specialist Advanced care planning/counseling discussion Breast cancer metastasized to bone Weakness generalized Cancer-related breakthrough pain Cancer related pain History of COVID-19 12/2020 + 12/2021 > residual taste dysfunction and feeling of need to clear throat Bilateral breast cancer Arthritis Liver spots "Mets from cancer" Depression with anxiety Peripheral neuropathy Heart palpitations R/t anxiety per patient Type II diabetes mellitus History of small bowel obstruction Hx bowel obstruction Hypothyroidism No current meds Breast cancer (11/12/15) Stage 4 (+ mets) Surgical History History of tubal ligation Port-A-Cath in place (04/30/22) Insertion Access Port left subclavian with Fluoroscopy(Left) - Chad Banuelos DO History of surgery Left Excisional Debridement of Buttock Wound Nausea and vomiting after administration of anesthetic agent "EXTREME" History of vascular access device PORT INSERTION/REMOVAL History of tooth extraction History of endometrial ablation History of bowel resection D/T BOWEL OBSTRUCTION History of lung surgery Left thoracoscopy with wedge resection left lower lobe Dr. Damico 03/29/2018 History of dilatation and curettage H/O hernia repair Hx of section x3 S/P lumpectomy, left breast LEFT ARM LIMB RESTRICTION Family History Mother , 77yo Diabetes Heart disease Aortic valve replacement Mitral valve calcifications UTI (urinary tract infection) Father , 62yo Diabetes Myocardial infarction Hypertension Stroke Brother Diabetes Myocardial infarction Cardiac stents Pacemaker Hypertension Sister No problems noted. Daughter No problems noted. Son No problems noted. Son No problems noted. 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 How many Children do You have: 3 Feels Safe at Home: Yes Diet: regular caffeine: No during the past year weight has: remained stable Assistive Devices: None Allergies Allergies Allergy/AdvReac Type Severity Reaction Status Date / Time No Known Allergies Allergy Verified 04/19/23 17:28 Home Meds Home Medications Medication Instructions Recorded Confirmed denosumab 120 mg/1.7 mL (70 mg/mL) 120 mg subcut .Q 3months 01/01/22 05/01/23 subcutaneous solution (Xgeva) blood-glucose sensor (Dexcom G6 12/17/22 04/19/23 Sensor device) blood-glucose transmitter (Dexcom 12/17/22 04/19/23 G6 Transmitter device) insulin aspart U-100 100 unit/mL 10 unit subcut AC 12/17/22 05/01/23 (3 mL) subcutaneous pen (Novolog FlexPen U-100 Insulin aspart) insulin glargine 100 unit/mL (3 30 unit subcut BID 12/17/22 05/01/23 mL) subcutaneous pen (Lantus Solostar U-100 Insulin) ondansetron HCl 8 mg tablet 8 mg PO Q12H PRN Nausea 12/17/22 05/01/23 pen needle, diabetic 32 gauge x 12/17/22 04/19/23 5/32" (BD Ultra-Fine Aletha Pen Needle) Previous Rx's Medication Instructions Recorded promethazine 25 mg tablet 25 mg PO TID PRN nausea and 01/26/23 vomiting #20 tabs fentanyl 75 mcg/hr transdermal 75 mcg transdermal Q3D #10 ea 04/22/23 patch magnesium oxide 400 mg (241.3 mg 400 mg PO BID 30 days #60 tabs 04/22/23 magnesium) tablet oxycodone 10 mg tablet 20 mg (2 x 10 mg) PO Q4 PRN 04/22/23 breakthrough pain #14 tabs sennosides 8.6 mg-docusate sodium 1 tab PO QAM 30 days #30 tabs 04/22/23 50 mg tablet (Senokot-S) Results & Data (ED) Vital Signs Vital Signs - 24 hr 05/01/23 14:34 05/01/23 15:37 05/01/23 15:40 Temperature 36.2 C L Temperature Source Temporal Artery Scan Pulse Rate 90 87 85 Pulse Rate [Apical] Pulse Rate from SpO2 Sensor 84 85 Respiratory Rate 14 24 21 Blood Pressure 159/85 H Blood Pressure [Left Arm] Blood Pressure Mean 109 Blood Pressure Mean [Left Arm] Pulse Oximetry 100 93 100 Oxygen Delivery Method Room Air Sepsis New/Unexplained Change in Mental Status No Sepsis Action Taken by Nursing No Action Required 05/01/23 15:41 05/01/23 15:50 05/01/23 16:00 Temperature Temperature Source Pulse Rate 83 88 Pulse Rate [Apical] Pulse Rate from SpO2 Sensor 84 89 Respiratory Rate 18 15 Blood Pressure Blood Pressure [Left Arm] Blood Pressure Mean Blood Pressure Mean [Left Arm] Pulse Oximetry 100 98 89 L Oxygen Delivery Method Room Air Sepsis New/Unexplained Change in Mental Status Sepsis Action Taken by Nursing 05/01/23 16:09 05/01/23 16:10 05/01/23 16:20 Temperature Temperature Source Pulse Rate 89 92 H 97 H Pulse Rate [Apical] Pulse Rate from SpO2 Sensor 92 H 98 H Respiratory Rate 18 27 H Blood Pressure Blood Pressure [Left Arm] Blood Pressure Mean Blood Pressure Mean [Left Arm] Pulse Oximetry 92 99 Oxygen Delivery Method Sepsis New/Unexplained Change in Mental Status Sepsis Action Taken by Nursing 05/01/23 16:30 05/01/23 16:40 05/01/23 16:50 Temperature Temperature Source Pulse Rate 91 H 94 H 95 H Pulse Rate [Apical] Pulse Rate from SpO2 Sensor 92 H 94 H 97 H Respiratory Rate 17 19 18 Blood Pressure Blood Pressure [Left Arm] Blood Pressure Mean Blood Pressure Mean [Left Arm] Pulse Oximetry 91 92 93 Oxygen Delivery Method Sepsis New/Unexplained Change in Mental Status Sepsis Action Taken by Nursing 05/01/23 16:58 05/01/23 16:58 05/01/23 16:58 Temperature Temperature Source Pulse Rate 94 H Pulse Rate [Apical] 93 H Pulse Rate from SpO2 Sensor 94 H Respiratory Rate 20 18 Blood Pressure 135/74 Blood Pressure [Left Arm] 135/74 Blood Pressure Mean 86 Blood Pressure Mean [Left Arm] 94 Pulse Oximetry 93 93 Oxygen Delivery Method Room Air Sepsis New/Unexplained Change in Mental Status Sepsis Action Taken by Nursing 05/01/23 17:00 05/01/23 17:10 05/01/23 17:20 Temperature Temperature Source Pulse Rate 93 H 94 H 91 H Pulse Rate [Apical] Pulse Rate from SpO2 Sensor 93 H 94 H 89 Respiratory Rate 18 18 16 Blood Pressure Blood Pressure [Left Arm] Blood Pressure Mean Blood Pressure Mean [Left Arm] Pulse Oximetry 93 98 95 Oxygen Delivery Method Sepsis New/Unexplained Change in Mental Status Sepsis Action Taken by Nursing 05/01/23 17:30 05/01/23 17:40 05/01/23 17:47 Temperature Temperature Source Pulse Rate 90 92 H 91 H Pulse Rate [Apical] Pulse Rate from SpO2 Sensor 90 91 H 90 Respiratory Rate 17 19 17 Blood Pressure Blood Pressure [Left Arm] Blood Pressure Mean Blood Pressure Mean [Left Arm] Pulse Oximetry 94 94 95 Oxygen Delivery Method Sepsis New/Unexplained Change in Mental Status Sepsis Action Taken by Nursing 05/01/23 17:47 05/01/23 17:50 05/01/23 18:00 Temperature Temperature Source Pulse Rate 86 89 Pulse Rate [Apical] Pulse Rate from SpO2 Sensor 87 90 Respiratory Rate 17 17 Blood Pressure 128/70 Blood Pressure [Left Arm] Blood Pressure Mean 83 Blood Pressure Mean [Left Arm] Pulse Oximetry 94 96 Oxygen Delivery Method Sepsis New/Unexplained Change in Mental Status Sepsis Action Taken by Nursing 05/01/23 18:10 05/01/23 18:20 05/01/23 18:30 Temperature Temperature Source Pulse Rate 91 H 102 H 82 Pulse Rate [Apical] Pulse Rate from SpO2 Sensor 92 H 99 H 83 Respiratory Rate 18 16 Blood Pressure Blood Pressure [Left Arm] Blood Pressure Mean Blood Pressure Mean [Left Arm] Pulse Oximetry 96 100 97 Oxygen Delivery Method Sepsis New/Unexplained Change in Mental Status Sepsis Action Taken by Nursing 05/01/23 18:40 05/01/23 20:05 05/01/23 20:21 Temperature Temperature Source Pulse Rate 86 113 H 88 Pulse Rate [Apical] Pulse Rate from SpO2 Sensor 87 Respiratory Rate 17 23 Blood Pressure 165/138 H Blood Pressure [Left Arm] Blood Pressure Mean 147 Blood Pressure Mean [Left Arm] Pulse Oximetry 96 98 Oxygen Delivery Method Sepsis New/Unexplained Change in Mental Status Sepsis Action Taken by Nursing 05/01/23 21:26 Temperature Temperature Source Pulse Rate 99 H Pulse Rate [Apical] Pulse Rate from SpO2 Sensor Respiratory Rate 22 Blood Pressure 160/97 H Blood Pressure [Left Arm] Blood Pressure Mean 118 Blood Pressure Mean [Left Arm] Pulse Oximetry 100 Oxygen Delivery Method Sepsis New/Unexplained Change in Mental Status Sepsis Action Taken by Nursing Laboratory Data 05/01/23 15:23 05/01/23 15:23 Lab Results 05/01/23 05/01/23 05/01/23 Range/Units 15:23 15:36 17:06 WBC 3.14 L (4.8-10.8) K/ul RBC 2.97 L (4.20-5.40) M/uL Hgb 9.0 L (12.0-16.0) g/dl Hct 24.5 L (37.0-47.0) % MCV 82.5 (80.0-100.0) fL MCH 30.3 (25.0-34.0) pg MCHC 36.7 H (32.0-36.0) g/dL RDW Std Deviation 43.7 (36.4-46.3) fL RDW Coeff of Joshua 14.7 H (11.5-14.5) % Plt Count 230 (130-400) K/uL MPV 9.3 L (9.4-12.4) fL Immature Gran % (Auto) 1.9 % Neut % (Auto) 68.9 % Lymph % (Auto) 23.2 % Crosby % (Auto) 2.5 % Eos % (Auto) 2.2 % Baso % (Auto) 1.3 % Neut # (Auto) 2.16 (1.40-6.50) K/uL Lymph # (Auto) 0.73 L (1.20-3.40) K/uL Crosby # (Auto) 0.08 L (0.11-0.59) K/uL Eos # (Auto) 0.07 (0.00-0.50) K/uL Baso # (Auto) 0.04 (0.00-0.20) K/uL Immature Gran # (Auto) 0.06 (0.01-0.20) K/uL Sodium 132 L (136-145) mmol/L Potassium 3.9 (3.5-5.1) mmol/L Chloride 96 L (98-107) mmol/L Carbon Dioxide 22 (21-32) mmol/L Anion Gap 14 H (3-11) BUN 18 (6-23) mg/dl Creatinine 0.85 (0.6-1.2) mg/dl Est Cr Clr Drug Dosing Not Reportable Est GFR ( Amer) 95.2 ml/min Est GFR (Non-Af Amer) 82.2 ml/min BUN/Creatinine Ratio 21.2 H (10-20) Glucose 397 H* (70-99(Fasting)) mg/dl POC Glucose (70-99) mg/dl Lactate 3.0 H* 1.0 (0.4-2.0) mmol/L Calcium 9.2 (8.6-10.3) mg/dl Magnesium 1.7 (1.7-2.4) mg/dl Total Bilirubin 1.0 (0.2-1.0) mg/dl AST 34 (13-39) U/L ALT 18 (7-52) U/L Alkaline Phosphatase 143 H (34-104) U/L Troponin I High Sens 3.1 (0-14) pg/ml Total Protein 7.8 (6.0-8.3) gm/dl Albumin 3.6 (3.4-5.0) gm/dl Globulin 4.2 H (2.5-4.0) gm/dl Albumin/Globulin Ratio 0.9 (0.9-2) Urine Color Urine Appearance (Clear) Urine pH (4.5-7.5) Ur Specific [place] (1.000-1.030) Urine Protein (Negative) Urine Glucose (UA) (Negative) Urine Ketones (Negative) Urine Blood (Negative) Urine Nitrite (Negative) Urine Bilirubin (Negative) Urine Urobilinogen (Negative) Ur Leukocyte Esterase (Negative) Urine WBC (Auto) (0-5) /hpf Urine RBC (Auto) (0-4) /hpf U Hyaline Cast (Auto) (0-5) /lpf U Epithel Cells (Auto) (0-5) /lpf Urine Bacteria (Auto) (Negative) Urine Yeast (None Prsent) Adenovirus (PCR) Not Detected (NotDetected) B. pertussis DNA (PCR) Not Detected (NotDetected) B.parapertussis DNA PCR Not Detected (NotDetected) C. pneumoniae DNA (PCR) Not Detected (NotDetected) Coronavirus OC43 (PCR) Not Detected (NotDetected) Coronavirus HKU1 (PCR) DETECTED A (NotDetected) Coronavirus 229E (PCR) Not Detected (NotDetected) SARS-CoV-2 (PCR) Not Detected (NotDetected) Coronavirus NL63 (PCR) Not Detected (NotDetected) Human Metapneumovir PCR Not Detected (NotDetected) Influenza Type A (PCR) Not Detected (NotDetected) Influenza Type B (PCR) Not Detected (NotDetected) M. pneumoniae (PCR) Not Detected (NotDetected) Parainfluenza 1 (PCR) Not Detected (NotDetected) Parainfluenza 2 (PCR) Not Detected (NotDetected) Parainfluenza 3 (PCR) Not Detected (NotDetected) Parainfluenza 4 (PCR) Not Detected (NotDetected) RSV (PCR) Not Detected (NotDetected) Entero/Rhino (PCR) Not Detected (NotDetected) 05/01/23 05/01/23 05/01/23 Range/Units 19:13 19:15 19:18 WBC (4.8-10.8) K/ul RBC (4.20-5.40) M/uL Hgb (12.0-16.0) g/dl Hct (37.0-47.0) % MCV (80.0-100.0) fL MCH (25.0-34.0) pg MCHC (32.0-36.0) g/dL RDW Std Deviation (36.4-46.3) fL RDW Coeff of Joshua (11.5-14.5) % Plt Count (130-400) K/uL MPV (9.4-12.4) fL Immature Gran % (Auto) % Neut % (Auto) % Lymph % (Auto) % Crosby % (Auto) % Eos % (Auto) % Baso % (Auto) % Neut # (Auto) (1.40-6.50) K/uL Lymph # (Auto) (1.20-3.40) K/uL Crosby # (Auto) (0.11-0.59) K/uL Eos # (Auto) (0.00-0.50) K/uL Baso # (Auto) (0.00-0.20) K/uL Immature Gran # (Auto) (0.01-0.20) K/uL Sodium (136-145) mmol/L Potassium (3.5-5.1) mmol/L Chloride (98-107) mmol/L Carbon Dioxide (21-32) mmol/L Anion Gap (3-11) BUN (6-23) mg/dl Creatinine (0.6-1.2) mg/dl Est Cr Clr Drug Dosing Est GFR ( Amer) ml/min Est GFR (Non-Af Amer) ml/min BUN/Creatinine Ratio (10-20) Glucose (70-99(Fasting)) mg/dl POC Glucose 358 H* 356 H* (70-99) mg/dl Lactate (0.4-2.0) mmol/L Calcium (8.6-10.3) mg/dl Magnesium (1.7-2.4) mg/dl Total Bilirubin (0.2-1.0) mg/dl AST (13-39) U/L ALT (7-52) U/L Alkaline Phosphatase (34-104) U/L Troponin I High Sens (0-14) pg/ml Total Protein (6.0-8.3) gm/dl Albumin (3.4-5.0) gm/dl Globulin (2.5-4.0) gm/dl Albumin/Globulin Ratio (0.9-2) Urine Color Dark Yellow Urine Appearance Turbid A (Clear) Urine pH 5.5 (4.5-7.5) Ur Specific [place] 1.030 (1.000-1.030) Urine Protein 2+ H (Negative) Urine Glucose (UA) 3+ H (Negative) Urine Ketones Trace H (Negative) Urine Blood 2+ H (Negative) Urine Nitrite Negative (Negative) Urine Bilirubin Negative (Negative) Urine Urobilinogen Negative (Negative) Ur Leukocyte Esterase 1+ H (Negative) Urine WBC (Auto) >30 H (0-5) /hpf Urine RBC (Auto) 0-4 (0-4) /hpf U Hyaline Cast (Auto) 1-5 (0-5) /lpf U Epithel Cells (Auto) 0-5 (0-5) /lpf Urine Bacteria (Auto) 1+ H (Negative) Urine Yeast Present A (None Prsent) Adenovirus (PCR) (NotDetected) B. pertussis DNA (PCR) (NotDetected) B.parapertussis DNA PCR (NotDetected) C. pneumoniae DNA (PCR) (NotDetected) Coronavirus OC43 (PCR) (NotDetected) Coronavirus HKU1 (PCR) (NotDetected) Coronavirus 229E (PCR) (NotDetected) SARS-CoV-2 (PCR) (NotDetected) Coronavirus NL63 (PCR) (NotDetected) Human Metapneumovir PCR (NotDetected) Influenza Type A (PCR) (NotDetected) Influenza Type B (PCR) (NotDetected) M. pneumoniae (PCR) (NotDetected) Parainfluenza 1 (PCR) (NotDetected) Parainfluenza 2 (PCR) (NotDetected) Parainfluenza 3 (PCR) (NotDetected) Parainfluenza 4 (PCR) (NotDetected) RSV (PCR) (NotDetected) Entero/Rhino (PCR) (NotDetected) 05/01/23 05/01/23 Range/Units 21:36 21:37 WBC (4.8-10.8) K/ul RBC (4.20-5.40) M/uL Hgb (12.0-16.0) g/dl Hct (37.0-47.0) % MCV (80.0-100.0) fL MCH (25.0-34.0) pg MCHC (32.0-36.0) g/dL RDW Std Deviation (36.4-46.3) fL RDW Coeff of Joshua (11.5-14.5) % Plt Count (130-400) K/uL MPV (9.4-12.4) fL Immature Gran % (Auto) % Neut % (Auto) % Lymph % (Auto) % Crosby % (Auto) % Eos % (Auto) % Baso % (Auto) % Neut # (Auto) (1.40-6.50) K/uL Lymph # (Auto) (1.20-3.40) K/uL Crosby # (Auto) (0.11-0.59) K/uL Eos # (Auto) (0.00-0.50) K/uL Baso # (Auto) (0.00-0.20) K/uL Immature Gran # (Auto) (0.01-0.20) K/uL Sodium (136-145) mmol/L Potassium (3.5-5.1) mmol/L Chloride (98-107) mmol/L Carbon Dioxide (21-32) mmol/L Anion Gap (3-11) BUN (6-23) mg/dl Creatinine (0.6-1.2) mg/dl Est Cr Clr Drug Dosing Est GFR ( Amer) ml/min Est GFR (Non-Af Amer) ml/min BUN/Creatinine Ratio (10-20) Glucose (70-99(Fasting)) mg/dl POC Glucose 331 H* 323 H* (70-99) mg/dl Lactate (0.4-2.0) mmol/L Calcium (8.6-10.3) mg/dl Magnesium (1.7-2.4) mg/dl Total Bilirubin (0.2-1.0) mg/dl AST (13-39) U/L ALT (7-52) U/L Alkaline Phosphatase (34-104) U/L Troponin I High Sens (0-14) pg/ml Total Protein (6.0-8.3) gm/dl Albumin (3.4-5.0) gm/dl Globulin (2.5-4.0) gm/dl Albumin/Globulin Ratio (0.9-2) Urine Color Urine Appearance (Clear) Urine pH (4.5-7.5) Ur Specific [place] (1.000-1.030) Urine Protein (Negative) Urine Glucose (UA) (Negative) Urine Ketones (Negative) Urine Blood (Negative) Urine Nitrite (Negative) Urine Bilirubin (Negative) Urine Urobilinogen (Negative) Ur Leukocyte Esterase (Negative) Urine WBC (Auto) (0-5) /hpf Urine RBC (Auto) (0-4) /hpf U Hyaline Cast (Auto) (0-5) /lpf U Epithel Cells (Auto) (0-5) /lpf Urine Bacteria (Auto) (Negative) Urine Yeast (None Prsent) Adenovirus (PCR) (NotDetected) B. pertussis DNA (PCR) (NotDetected) B.parapertussis DNA PCR (NotDetected) C. pneumoniae DNA (PCR) (NotDetected) Coronavirus OC43 (PCR) (NotDetected) Coronavirus HKU1 (PCR) (NotDetected) Coronavirus 229E (PCR) (NotDetected) SARS-CoV-2 (PCR) (NotDetected) Coronavirus NL63 (PCR) (NotDetected) Human Metapneumovir PCR (NotDetected) Influenza Type A (PCR) (NotDetected) Influenza Type B (PCR) (NotDetected) M. pneumoniae (PCR) (NotDetected) Parainfluenza 1 (PCR) (NotDetected) Parainfluenza 2 (PCR) (NotDetected) Parainfluenza 3 (PCR) (NotDetected) Parainfluenza 4 (PCR) (NotDetected) RSV (PCR) (NotDetected) Entero/Rhino (PCR) (NotDetected) Administered Medications Discontinued Medications Fentanyl Citrate (Fentanyl Citrate Pf 100 Mcg/2 Ml Vial) 50 mcg IV NOW STA Stop: 05/01/23 19:32 Last Admin: 05/01/23 20:11 Dose: Not Given Documented By: CPB Hydromorphone HCl (Hydromorphone Inj 0.5 Mg/0.5 Ml Syr) 0.5 mg IV NOW STA Stop: 05/01/23 19:55 Last Admin: 05/01/23 20:02 Dose: 0.5 mg Documented By: CPB Sodium Chloride (Nss) 1,000 mls @ 999 mls/hr IV .Q1H1M JESSE Stop: 05/01/23 16:00 Last Infusion: 05/01/23 16:25 Dose: Infused Documented By: Admin: 05/01/23 15:22 Dose: 999 mls/hr Documented By: ML Sodium Chloride (Nss) 1,000 mls @ 999 mls/hr IV .Q1H1M ONE Stop: 05/01/23 16:46 Last Infusion: 05/01/23 17:32 Dose: Infused Documented By: Admin: 05/01/23 16:19 Dose: 999 mls/hr Documented By: ML Sodium Chloride (Nss) 1,000 mls @ 999 mls/hr IV .Q1H1M ONE Stop: 05/01/23 20:31 Last Infusion: 05/01/23 21:23 Dose: Infused Documented By: Admin: 05/01/23 20:05 Dose: 999 mls/hr Documented By: CPB Insulin Human Regular (Novolin-R Insulin Per Unit Charge) 10 units SC NOW STA Stop: 05/01/23 19:32 Last Admin: 05/01/23 20:08 Dose: 10 units Documented By: CPB Co-signed By: MOLLY Ondansetron HCl (Ondansetron Inj 2 Mg/Ml 2 Ml Vial) 4 mg IV NOW STA Stop: 05/01/23 14:48 Last Admin: 05/01/23 15:22 Dose: 4 mg Documented By: ML Ondansetron HCl (Ondansetron Inj 2 Mg/Ml 2 Ml Vial) 4 mg IV NOW STA Stop: 05/01/23 19:32 Last Admin: 05/01/23 20:03 Dose: 4 mg Documented By: CPB Imaging Data Radiologist's Impression: Chest X-Ray 05/01/23 14:47 XR chest 1V portable HISTORY: 48 years-old Female weakness acute weakness COMPARISON: 04/19/2023 TECHNIQUE: AP view of the chest FINDINGS: Cardiomediastinal and hilar silhouettes are within normal limits. A left subclavian [id number] catheter is unchanged. No pneumothorax, pleural effusion or overt pulmonary edema. 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 Peripheral predominant reticular nodular opacities are again noted which are most pronounced in the mid to lower lung zones.. IMPRESSION: 1. Nonspecific peripheral mid to lower lung zone predominant reticulonodular opacities are redemonstrated, better evaluated on the CTA chest from 04/19/2023. 2. Multifocal skeletal metastases redemonstrated with chronic rib fractures. ACT 112: Negative or not required by law. The above report was generated using voice recognition software. It may contain grammatical, syntax or spelling errors. Electronically signed by: Ruddy Chen M.D. 05/01/2023 2:58 PM Discharge Plan Visit Data Chief Complaint: Vomiting Stated Complaint: VOMITING, DIZZY - RECENT INCREASE IN FENANYL PATCH ED Provider: Nicole Carias Discharge Problem: Intractable vomiting, Coronavirus infection, UTI (urinary tract infection) Forms Stand Alone Forms: My [facility] [employer] Prescriptions Prescriptions: No Action Xgeva 120 mg/1.7 mL (70 mg/mL) solution 120 mg subcut .Q 3months (DME) Dexcom G6 Sensor Device See Rx Instructions .Route Rx Instructions: Change sensor every 10 days (DME) Dexcom G6 Transmitter Device See Rx Instructions .Route Rx Instructions: change transmitter every 90 days insulin aspart U-100 [Novolog FlexPen U-100 Insulin] 100 unit/mL (3 mL) insulin pen 10 unit subcut AC (DME) pen needle, diabetic [BD Ultra-Fine Aletha Pen Needle] 32 gauge x 5/32" needle See Rx Instructions .Route Rx Instructions: Use 1 three times a day with insulin injection ondansetron HCl 8 mg tablet 8 mg PO Q12H PRN (Reason: Nausea) Tyler Hargroveostar U-100 Insulin 100 unit/mL (3 mL) insulin pen 30 unit SUBCUT BID promethazine 25 mg tablet 25 mg PO TID PRN (Reason: nausea and vomiting) Qty: 20 0RF magnesium oxide 400 mg (241.3 mg magnesium) Tablet 400 mg PO BID 30 Days Qty: 60 0RF fentanyl 75 mcg/hr Patch 72 Hour 75 mcg transdermal Q3D Qty: 10 0RF sennosides-docusate sodium [Senokot-S] 8.6-50 mg Tablet 1 tab PO QAM 30 Days Qty: 30 0RF oxycodone 10 mg tablet 20 mg PO Q4 PRN (Reason: breakthrough pain) Qty: 14 0RF Referrals Referrals: Adonis Lawler CRNP [Primary Care Provider] -
[2023-05-01] MEDS: SODIUM CHLORIDE 0.9% 1,000 ML IV SCH (15:22)
[2023-05-01] MEDS: ONDANSETRON INJ 2 MG/ML 2 ML VIAL IV STA ×2 (15:22→20:03)
[2023-05-01 15:39] LABS: Hematocrit (blood only) 24.5 % (37.0-47.0); Mean Corpuscular Hemoglobin 30.3 pg (25.0-34.0); Mean Corpuscular Hgb Conc 36.7 g/dL (32.0-36.0); Mean Corpuscular Volume 82.5 fL (80.0-100.0); Mean Platelet Volume 9.3 fL (9.4-12.4); Platelet Count 230 K/uL (130-400); RDW Coefficient of Variation 14.7 % (11.5-14.5); RDW Standard Deviation 43.7 fL (36.4-46.3); Red Blood Count 2.97 M/uL (4.20-5.40); White Blood Count 3.14 K/ul (4.8-10.8)
[2023-05-01 15:57] LABS: Basophils # (auto) 0.04 K/uL (0.00-0.20); Basophils % (auto) 1.3 %; Eosinophils # (auto) 0.07 K/uL (0.00-0.50); Eosinophils % (auto) 2.2 %; Immature Granulocytes # (auto) 0.06 K/uL (0.01-0.20); Immature Granulocytes % (auto) 1.9 %; Lymphocytes # (auto) 0.73 K/uL (1.20-3.40); Lymphocytes % (auto) 23.2 %; Monocytes # (auto) 0.08 K/uL (0.11-0.59); Monocytes % (auto) 2.5 %; Neutrophils # (auto) 2.16 K/uL (1.40-6.50); Neutrophils % (auto) 68.9 %
[2023-05-01 16:01] LABS: Alanine Aminotransferase 18 U/L (7-52); Albumin Globulin Ratio 0.9 (0.9-2); Albumin Level 3.6 gm/dl (3.4-5.0); Alkaline Phosphatase 143 U/L (34-104); Anion Gap 14 (3-11); Aspartate Aminotransferase 34 U/L (13-39); BUN Creatinine Ratio 21.2 (10-20); Blood Urea Nitrogen 18 mg/dl (6-23); Calcium 9.2 mg/dl (8.6-10.3); Carbon Dioxide 22 mmol/L (21-32); Chloride 96 mmol/L (98-107); Est GFR (African American) 95.2 ml/min; Est GFR (Non-African American) 82.2 ml/min; Globulin 4.2 gm/dl (2.5-4.0); Glucose 397 mg/dl (70-99(Fasting)); Magnesium 1.7 mg/dl (1.7-2.4); Potassium 3.9 mmol/L (3.5-5.1); Sodium 132 mmol/L (136-145); Total Protein 7.8 gm/dl (6.0-8.3); Troponin I High Sensitivity 3.1 pg/ml (0-14)
[2023-05-01] MEDS: SODIUM CHLORIDE 0.9% 1,000 ML IV ONE ×2 (16:19→20:05)
[2023-05-01 17:01] LABS: Adenovirus PCR Not Detected (NotDetected); Bordetella parapertussis PCR Not Detected (NotDetected); Bordetella pertussis PCR Not Detected (NotDetected); Chlamydia pneumoniae PCR Not Detected (NotDetected); Coronavirus 229E PCR Not Detected (NotDetected); Coronavirus CoV-2 (COVID19)PCR Not Detected (NotDetected); Coronavirus HKU1 PCR DETECTED (NotDetected); Coronavirus NL63 PCR Not Detected (NotDetected); Coronavirus OC43PCR Not Detected (NotDetected); Human Metapneumovirus PCR Not Detected (NotDetected); Influenza A PCR Not Detected (NotDetected); Influenza B PCR Not Detected (NotDetected); Mycoplasma pneumoniae PCR Not Detected (NotDetected); Parainfluenza Virus 1 PCR Not Detected (NotDetected); Parainfluenza Virus 2 PCR Not Detected (NotDetected); Parainfluenza Virus 3 PCR Not Detected (NotDetected); Parainfluenza Virus 4 PCR Not Detected (NotDetected); Respiratory Syncytial VirusPCR Not Detected (NotDetected); Rhinovirus/Enterovirus PCR Not Detected (NotDetected)
[2023-05-01 19:36] LABS: Appearance Urine Turbid (Clear); Bilirubin Urine Negative (Negative); Blood Urine 2+ (Negative); Color Urine Dark Yellow; Epithelial Cell Urine Auto 0-5 /lpf (0-5); Glucose Urine UA 3+ (Negative); Ketones Urine Trace (Negative); Leukocyte Esterase Urine 1+ (Negative); Nitrite Urine Negative (Negative); Protein Urine 2+ (Negative); Urobilinogen Urine Negative (Negative); WBC Urine Automated >30 /hpf (0-5); pH Urine 5.5 (4.5-7.5)
[2023-05-01] MEDS: HYDROmorphone INJ 0.5 MG/0.5 ML SYR IV STA (20:02)
[2023-05-01] MEDS: NovoLIN-R INSULIN PER UNIT CHARGE SC STA (20:08)
[2023-05-01] MEDS: fentaNYL citrate PF 100 MCG/2 ML VIAL IV STA (20:11)
[2023-05-01 20:19] LABS: RBC Urine Automated 0-4 /hpf (0-4)
[2023-05-01 20:20] LABS: Bacteria Urine Automated 1+ (Negative)
--- NOTE | 2023-05-01 21:44 | History & Physical Report ---
Date of Service May 01, 2023 Assessment & Plan (1) Intractable vomiting: Plan: 48-year-old female with past medical history significant for metastatic breast cancer, diabetes, hypothyroidism history of hypercalcemia, depression with anxiety, peripheral neuropathy, history of small bowel obstruction was recently in the hospital for moderate hypercalcemia treated with fluids and Zometa and also seen by palliative care and was recommended fentanyl patch 75 mcg every 3 days and also changed oxycodone to 20 mg every 4 hours as needed and to follow up as outpatient. Patient states she had chemo last Wednesday. Since couple of days she is getting nauseous and vomiting. Yesterday she had her second fentanyl patch after which she felt dizzy not felt well and took off the patch. Overnight she was having lot of nausea vomiting and not feeling well which pr ompted her to come to the ER. In the ER she also found to be hyperglycemic. Even after antiemetics and fluids she is still not feeling well . Denies any chest pain or shortness of breath. No fevers. Few days ago she had diarrhea but currently constipated. Micturating okay. Denies any burning micturition. No fevers. No chest pain or shortness of breath. No headache. Vision is okay. No earache or runny nose or sore throat. No cough. Hemodynamics are okay. Intractable vomiting Possibly from chemo Possibly from UTI Possibly from pain medications Patient removed fentanyl patch ER started on Rocephin and will be continued IV fluids, IV antiemetics as needed Clear liquid diet Possible sepsis From UTI Initial lactic acid was 3 and repeat is 1 On Rocephin Will monitor UTI As above Will follow cultures Hyperglycemia Diabetes Continue home Lantus Sliding scale Closely monitor Metastatic breast cancer Follow-up with heme-onc Coronavirus not COVID Was present last admission also Droplet precautions Chronic normocytic anemia Hemoglobin 9 Possible from chemo and cancer Will follow labs DVT prophylaxis Lovenox Disposition Med/daily History of Present Illness Chief Complaint: Nausea and vomiting Primary Care Provider: CONSTANTINO Reid 48-year-old female with past medical history significant for metastatic breast cancer, diabetes, hypothyroidism history of hypercalcemia, depression with anxiety, peripheral neuropathy, history of small bowel obstruction was recently in the hospital for moderate hypercalcemia treated with fluids and Zometa and also seen by palliative care and was recommended fentanyl patch 75 mcg every 3 days and also changed oxycodone to 20 mg every 4 hours as needed and to follow up as outpatient. Patient states she had chemo last Wednesday. Since couple of days she is getting nauseous and vomiting. Yesterday she had her second fentanyl patch after which she felt dizzy not felt well and took off the patch. Overnight she was having lot of nausea vomiting and not feeling well which prompted her to come to the ER. In the ER she also found to be hyperglycemic. Even after antiemetics and fluids she is still not feeling well . Denies any chest pain or shortness of breath. No fevers. Few days ago she had diarrhea but currently constipated. Micturating okay. Denies any burning micturition. No fevers. No chest pain or shortness of breath. No headache. Vision is okay. No earache or runny nose or sore throat. No cough. Hemodynamics are okay. Past medical history. As mentioned above Past surgical history. Left excisional debridement of buttock wound. History of tooth extraction. History of endometrial ablation. History of bowel resection. Left thoracoscopy with wedge resection of left lower lobe. History of dilatation curettage. History of hernia repair. History of x 3. Left breast lumpectomy. Family history. Mother had diabetes. Multiple replacement. UTI. Father had diabetes. MT. Hypertension. Stroke. Brother has diabetes. MT. Pacemaker. Hypertension. Social history. No smoking. No alcohol use. No drug use. Allergies Allergy/AdvReac Type Severity Reaction Status Date / Time No Known Allergies Allergy Verified 04/19/23 17:28 Home Medications Medication Instructions Recorded Confirmed Type denosumab 120 mg/1.7 mL (70 mg/mL) 120 mg subcut .Q 3months 01/01/22 05/01/23 History subcutaneous solution (Xgeva) blood-glucose sensor (Dexcom G6 12/17/22 04/19/23 History Sensor device) blood-glucose transmitter (Dexcom 12/17/22 04/19/23 History G6 Transmitter device) insulin aspart U-100 100 unit/mL 10 unit subcut AC 12/17/22 05/01/23 History (3 mL) subcutaneous pen (Novolog FlexPen U-100 Insulin aspart) insulin glargine 100 unit/mL (3 30 unit subcut BID 12/17/22 05/01/23 History mL) subcutaneous pen (Lantus Solostar U-100 Insulin) ondansetron HCl 8 mg tablet 8 mg PO Q12H PRN Nausea 12/17/22 05/01/23 History pen needle, diabetic 32 gauge x 12/17/22 04/19/23 History " (BD Ultra-Fine Aletha Pen Needle) promethazine 25 mg tablet 25 mg PO TID PRN nausea and 01/26/23 05/01/23 Rx vomiting #20 tabs fentanyl 75 mcg/hr transdermal 75 mcg transdermal Q3D #10 ea 04/22/23 05/01/23 Rx patch magnesium oxide 400 mg (241.3 mg 400 mg PO BID 30 days #60 tabs 04/22/23 05/01/23 Rx magnesium) tablet oxycodone 10 mg tablet 20 mg (2 x 10 mg) PO Q4 PRN 04/22/23 05/01/23 Rx breakthrough pain #14 tabs sennosides 8.6 mg-docusate sodium 1 tab PO QAM 30 days #30 tabs 04/22/23 05/01/23 Rx 50 mg tablet (Senokot-S) Past Med/Surg History Medical History (Updated 05/01/23 @ 21:41 by Nicole Carias MD) Palliative care by specialist Advanced care planning/counseling discussion Breast cancer metastasized to bone Weakness generalized Cancer-related breakthrough pain Cancer related pain History of COVID-19 12/2020 + 12/2021 > residual taste dysfunction and feeling of need to clear throat Bilateral breast cancer Arthritis Liver spots "Mets from cancer" Depression with anxiety Peripheral neuropathy Heart palpitations R/t anxiety per patient Type II diabetes mellitus History of small bowel obstruction Hx bowel obstruction Hypothyroidism No current meds Breast cancer (11/12/15) Stage 4 (+ mets) Surgical History History of tubal ligation Port-A-Cath in place (04/30/22) Insertion Access Port left subclavian with Fluoroscopy(Left) - Chad Banuelos DO History of surgery Left Excisional Debridement of Buttock Wound Nausea and vomiting after administration of anesthetic agent "EXTREME" History of vascular access device PORT INSERTION/REMOVAL History of tooth extraction History of endometrial ablation History of bowel resection D/T BOWEL OBSTRUCTION History of lung surgery Left thoracoscopy with wedge resection left lower lobe Dr. Damico 03/29/2018 History of dilatation and curettage H/O hernia repair Hx of section x3 S/P lumpectomy, left breast LEFT ARM LIMB RESTRICTION Family History Mother , 77yo Diabetes Heart disease Aortic valve replacement Mitral valve calcifications UTI (urinary tract infection) Father , 62yo Diabetes Myocardial infarction Hypertension Stroke Brother Diabetes Myocardial infarction Cardiac stents Pacemaker Hypertension Sister No problems noted. Daughter No problems noted. Son No problems noted. Son No problems noted. 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 Head- atraumatic Eyes- PERRL. ENT- oropharynx dry Neck- supple, no JVD. Lungs- clear to auscultation no wheezing or crackles. Heart- regular rhythm; no murmur, no gallop. Abdomen- normal bowel sounds, soft, nontender, no distension. Extremities- no pretibial edema, no erythema Neuro- alert, oriented PERRL, no facial palsy; no dysarthria; moves extremities. Results & Data Results & Data Vital Signs (Past 12 Hours) Vital Signs Temp Pulse Pulse Resp BP BP Pulse Ox 05/01/23 21:26 99 H 22 160/97 H 100 05/01/23 20:21 88 05/01/23 20:05 113 H 23 165/138 H 98 05/01/23 18:40 86 17 96 05/01/23 18:30 82 16 97 05/01/23 18:20 102 H 100 05/01/23 18:10 91 H 18 96 05/01/23 18:00 89 17 96 05/01/23 17:50 86 17 94 05/01/23 17:47 128/70 05/01/23 17:47 91 H 17 95 05/01/23 17:40 92 H 19 94 05/01/23 17:30 90 17 94 05/01/23 17:20 91 H 16 95 05/01/23 17:10 94 H 18 98 05/01/23 17:00 93 H 18 93 05/01/23 16:58 135/74 05/01/23 16:58 94 H 18 93 05/01/23 16:58 93 H 20 135/74 93 05/01/23 16:50 95 H 18 93 05/01/23 16:40 94 H 19 92 05/01/23 16:30 91 H 17 91 05/01/23 16:20 97 H 27 H 99 05/01/23 16:10 92 H 18 92 05/01/23 16:09 89 05/01/23 16:00 88 15 89 L 05/01/23 15:50 83 18 98 05/01/23 15:41 100 05/01/23 15:40 85 21 100 05/01/23 15:37 87 24 93 05/01/23 14:34 36.2 C L 90 14 159/85 H 100 O2 Del Method 05/01/23 21:26 05/01/23 20:21 05/01/23 20:05 05/01/23 18:40 05/01/23 18:30 05/01/23 18:20 05/01/23 18:10 05/01/23 18:00 05/01/23 17:50 05/01/23 17:47 05/01/23 17:47 05/01/23 17:40 05/01/23 17:30 05/01/23 17:20 05/01/23 17:10 05/01/23 17:00 05/01/23 16:58 05/01/23 16:58 05/01/23 16:58 Room Air 05/01/23 16:50 05/01/23 16:40 05/01/23 16:30 05/01/23 16:20 05/01/23 16:10 05/01/23 16:09 05/01/23 16:00 05/01/23 15:50 05/01/23 15:41 Room Air 05/01/23 15:40 05/01/23 15:37 05/01/23 14:34 Room Air Diagnostic Findings Laboratory Results WBC 3.14 K/ul (4.8-10.8) L 05/01/23 15:23 RBC 2.97 M/uL (4.20-5.40) L 05/01/23 15:23 Hgb 9.0 g/dl (12.0-16.0) L 05/01/23 15:23 Hct 24.5 % (37.0-47.0) L 05/01/23 15:23 MCV 82.5 fL (80.0-100.0) 05/01/23 15:23 MCH 30.3 pg (25.0-34.0) 05/01/23 15:23 MCHC 36.7 g/dL (32.0-36.0) H 05/01/23 15:23 RDW Std Deviation 43.7 fL (36.4-46.3) 05/01/23 15:23 RDW Coeff of Joshua 14.7 % (11.5-14.5) H 05/01/23 15:23 Plt Count 230 K/uL (130-400) 05/01/23 15:23 MPV 9.3 fL (9.4-12.4) L 05/01/23 15:23 Immature Gran % (Auto) 1.9 % 05/01/23 15:23 Neut % (Auto) 68.9 % 05/01/23 15:23 Lymph % (Auto) 23.2 % 05/01/23 15:23 [place] % (Auto) 2.5 % 05/01/23 15:23 Eos % (Auto) 2.2 % 05/01/23 15:23 Baso % (Auto) 1.3 % 05/01/23 15:23 Neut # (Auto) 2.16 K/uL (1.40-6.50) 05/01/23 15:23 Lymph # (Auto) 0.73 K/uL (1.20-3.40) L 05/01/23 15:23 [place] # (Auto) 0.08 K/uL (0.11-0.59) L 05/01/23 15:23 Eos # (Auto) 0.07 K/uL (0.00-0.50) 05/01/23 15:23 Baso # (Auto) 0.04 K/uL (0.00-0.20) 05/01/23 15:23 Immature Gran # (Auto) 0.06 K/uL (0.01-0.20) 05/01/23 15:23 Sodium 132 mmol/L (136-145) L 05/01/23 15:23 Potassium 3.9 mmol/L (3.5-5.1) 05/01/23 15:23 Chloride 96 mmol/L (98-107) L 05/01/23 15:23 Carbon Dioxide 22 mmol/L (21-32) 05/01/23 15:23 Anion Gap 14 (3-11) H 05/01/23 15:23 BUN 18 mg/dl (6-23) 05/01/23 15:23 Creatinine 0.85 mg/dl (0.6-1.2) 05/01/23 15:23 Est Cr Clr Drug Dosing Not Reportable 05/01/23 15:23 Est GFR ( Amer) 95.2 ml/min 05/01/23 15:23 Est GFR (Non-Af Amer) 82.2 ml/min 05/01/23 15:23 BUN/Creatinine Ratio 21.2 (10-20) H 05/01/23 15:23 Glucose 397 mg/dl (70-99(Fasting)) H* 05/01/23 15:23 POC Glucose 323 mg/dl (70-99) H* 05/01/23 21:37 Lactate 1.0 mmol/L (0.4-2.0) 05/01/23 17:06 Calcium 9.2 mg/dl (8.6-10.3) 05/01/23 15:23 Magnesium 1.7 mg/dl (1.7-2.4) 05/01/23 15:23 Total Bilirubin 1.0 mg/dl (0.2-1.0) 05/01/23 15:23 AST 34 U/L (13-39) 05/01/23 15:23 ALT 18 U/L (7-52) 05/01/23 15:23 Alkaline Phosphatase 143 U/L (34-104) H 05/01/23 15:23 Troponin I High Sens 3.1 pg/ml (0-14) 05/01/23 15:23 Total Protein 7.8 gm/dl (6.0-8.3) 05/01/23 15:23 Albumin 3.6 gm/dl (3.4-5.0) 05/01/23 15:23 Globulin 4.2 gm/dl (2.5-4.0) H 05/01/23 15:23 Albumin/Globulin Ratio 0.9 (0.9-2) 05/01/23 15:23 Urine Color Dark Yellow 05/01/23 19:18 Urine Appearance Turbid (Clear) A 05/01/23 19:18 Urine pH 5.5 (4.5-7.5) 05/01/23 19:18 Ur Specific [place] 1.030 (1.000-1.030) 05/01/23 19:18 Urine Protein 2+ (Negative) H 05/01/23 19:18 Urine Glucose (UA) 3+ (Negative) H 05/01/23 19:18 Urine Ketones Trace (Negative) H 05/01/23 19:18 Urine Blood 2+ (Negative) H 05/01/23 19:18 Urine Nitrite Negative (Negative) 05/01/23 19:18 Urine Bilirubin Negative (Negative) 05/01/23 19:18 Urine Urobilinogen Negative (Negative) 05/01/23 19:18 Ur Leukocyte Esterase 1+ (Negative) H 05/01/23 19:18 Urine WBC (Auto) >30 /hpf (0-5) H 05/01/23 19:18 Urine RBC (Auto) 0-4 /hpf (0-4) 05/01/23 19:18 U Hyaline Cast (Auto) 1-5 /lpf (0-5) 05/01/23 19:18 U Epithel Cells (Auto) 0-5 /lpf (0-5) 05/01/23 19:18 Urine Bacteria (Auto) 1+ (Negative) H 05/01/23 19:18 Urine Yeast Present (None Prsent) A 05/01/23 19:18 Adenovirus (PCR) Not Detected (NotDetected) 05/01/23 15:36 B. pertussis DNA (PCR) Not Detected (NotDetected) 05/01/23 15:36 B.parapertussis DNA PCR Not Detected (NotDetected) 05/01/23 15:36 C. pneumoniae DNA (PCR) Not Detected (NotDetected) 05/01/23 15:36 Coronavirus OC43 (PCR) Not Detected (NotDetected) 05/01/23 15:36 Coronavirus HKU1 (PCR) DETECTED (NotDetected) A 05/01/23 15:36 Coronavirus 229E (PCR) Not Detected (NotDetected) 05/01/23 15:36 SARS-CoV-2 (PCR) Not Detected (NotDetected) 05/01/23 15:36 Coronavirus NL63 (PCR) Not Detected (NotDetected) 05/01/23 15:36 Human Metapneumovir PCR Not Detected (NotDetected) 05/01/23 15:36 Influenza Type A (PCR) Not Detected (NotDetected) 05/01/23 15:36 Influenza Type B (PCR) Not Detected (NotDetected) 05/01/23 15:36 M. pneumoniae (PCR) Not Detected (NotDetected) 05/01/23 15:36 Parainfluenza 1 (PCR) Not Detected (NotDetected) 05/01/23 15:36 Parainfluenza 2 (PCR) Not Detected (NotDetected) 05/01/23 15:36 Parainfluenza 3 (PCR) Not Detected (NotDetected) 05/01/23 15:36 Parainfluenza 4 (PCR) Not Detected (NotDetected) 05/01/23 15:36 RSV (PCR) Not Detected (NotDetected) 05/01/23 15:36 Entero/Rhino (PCR) Not Detected (NotDetected) 05/01/23 15:36 Impressions Chest X-Ray 05/01/23 14:47 XR chest 1V portable HISTORY: 48 years-old Female weakness acute weakness COMPARISON: 04/19/2023 TECHNIQUE: AP view of the chest FINDINGS: Cardiomediastinal and hilar silhouettes are within normal limits. A left subclavian [id number] catheter is unchanged. No pneumothorax, pleural effusion or overt pulmonary edema. 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 Peripheral predominant reticular nodular opacities are again noted which are most pronounced in the mid to lower lung zones.. IMPRESSION: 1. Nonspecific peripheral mid to lower lung zone predominant reticulonodular opacities are redemonstrated, better evaluated on the CTA chest from 04/19/2023. 2. Multifocal skeletal metastases redemonstrated with chronic rib fractures. ACT 112: Negative or not required by law. The above report was generated using voice recognition software. It may contain grammatical, syntax or spelling errors. Electronically signed by: Ruddy Chen M.D. 05/01/2023 2:58 PM ECG Additional Comments: ECG. Normal sinus rhythm rate of 89. No significant change was found. Code Status & VTE Plan VTE Prophylaxis Plan VTE Prophylaxis will be ordered: Yes
[2023-05-01] MEDS: LANTUS PER UNIT CHARGE SQ STA (22:11)
[2023-05-01] MEDS: cefTRIAXone SODIUM 2,000 MG/50 ML BAG IV STA (22:12)
[2023-05-01] MEDS ORDERED: GLUCAGON FOR INJ 1 MG VIAL SQ PRN (23:12)
[2023-05-01] MEDS ORDERED: GLUCOSE 40% GEL 15 GM TUBE PO PRN (23:12)
[2023-05-01] MEDS ORDERED: GLUCOSE 10 TAB/TUBE PO PRN (23:12)
[2023-05-01] MEDS ORDERED: NITROGLYCERIN SL 0.4 MG/TAB TAB SL PRN (23:12)
[2023-05-01] MEDS ORDERED: DEXTROSE 50% 50 ML SYRINGE IV PRN (23:12)
[2023-05-01] MEDS ORDERED: ACETAMINOPHEN 325 MG TAB PO PRN (23:12)
[2023-05-01] MEDS ORDERED: CARBOHYDRATES FOR HYPOGLYCEMIA PO PRN (23:12)
[2023-05-02] MEDS: SODIUM CHLORIDE 0.9% 1,000 ML IV SCH (01:25)
[2023-05-02] MEDS: ONDANSETRON INJ 2 MG/ML 2 ML VIAL IV PRN (01:25)
[2023-05-02 07:47] LABS: Hematocrit (blood only) 22.6 % (37.0-47.0); Hemoglobin 7.8 g/dl (12.0-16.0); Mean Corpuscular Hemoglobin 29.7 pg (25.0-34.0); Mean Corpuscular Hgb Conc 34.5 g/dL (32.0-36.0); Mean Corpuscular Volume 85.9 fL (80.0-100.0); Mean Platelet Volume 9.2 fL (9.4-12.4); Platelet Count 203 K/uL (130-400); RDW Coefficient of Variation 14.9 % (11.5-14.5); RDW Standard Deviation 46.5 fL (36.4-46.3); Red Blood Count 2.63 M/uL (4.20-5.40); White Blood Count 2.91 K/ul (4.8-10.8)
[2023-05-02] MEDS: INSULIN ASPART PER UNIT CHARGE SC SCH (07:56)
[2023-05-02] MEDS ORDERED: droNABinol 2.5 MG CAP PO PRN (08:02)
[2023-05-02 08:03] LABS: BUN Creatinine Ratio 19.4 (10-20); Calcium 8.2 mg/dl (8.6-10.3); Creatinine Clr Calc Pharmacy 131.1 ml/min; Est GFR (African American) 122.2 ml/min; Est GFR (Non-African American) 105.4 ml/min; Magnesium 1.6 mg/dl (1.7-2.4); Phosphorus 2.7 mg/dl (2.5-4.9); Potassium 3.4 mmol/L (3.5-5.1)
--- NOTE | 2023-05-02 08:36 | Electrocardiogram Report ---
Test Reason : Blood Pressure : / mmHG Vent. Rate : 089 BPM Atrial Rate : 089 BPM P-R Int : 152 ms QRS Dur : 074 ms QT Int : 374 ms P-R-T Axes : 031 -08 019 degrees QTc Int : 455 ms Normal sinus rhythm Normal ECG When compared with ECG of 21-APR-2023 05:26, No significant change was found Confirmed by Zack Sierra ([id number]) on 05/02/2023 8:36:15 AM Referred By: Confirmed By:Zack Sierra
[2023-05-02 08:59] LABS: Anisocytosis Present; Basophils # (auto) 0.04 K/uL (0.00-0.20); Basophils % (auto) 1.4 %; Eosinophils # (auto) 0.05 K/uL (0.00-0.50); Eosinophils % (auto) 1.7 %; Immature Granulocytes # (auto) 0.06 K/uL (0.01-0.20); Immature Granulocytes % (auto) 2.1 %; Lymphocytes # (auto) 1.42 K/uL (1.20-3.40); Lymphocytes % (auto) 48.8 %; Monocytes # (auto) 0.16 K/uL (0.11-0.59); Monocytes % (auto) 5.5 %; Neutrophils # (auto) 1.18 K/uL (1.40-6.50); Neutrophils % (auto) 40.5 %
[2023-05-02] MEDS: LANTUS PER UNIT CHARGE SQ SCH (09:03)
[2023-05-02] MEDS: MAGNESIUM OXIDE 400 MG TAB PO SCH (09:03)
[2023-05-02] MEDS: ENOXAPARIN INJ 40 MG/0.4 ML SYR SQ SCH (09:03)
[2023-05-02] MEDS: ERTAPENEM SODIUM 1,000 MG in SYRINGE 0 ML IV SCH (09:03)
[2023-05-02] MEDS: DOCUSATE SODIUM/SENNA 50/8.6MG TAB PO SCH (09:03)
[2023-05-02] MEDS ORDERED: dexAMETHasone**PF** 10 MG/ML VIAL IV ONE (09:47)
[2023-05-02] MEDS: dexAMETHasone 4 MG in SYRINGE 0 ML IV ONE (10:51)
[2023-05-02] MEDS: OLANZapine 10 MG/2.1 ML SDV IM STA (10:51)
--- NOTE | 2023-05-02 13:27 | Hospitalist Progress Note ---
Date of Service May 02, 2023 Assessment & Plan (1) Intractable vomiting: Plan: Ms. Vega is a 48-year-old female with past medical history significant for metastatic breast cancer, diabetes, hypothyroidism history of hypercalcemia, depression with anxiety, peripheral neuropathy, history of small bowel obstruction with recurrence nausea and vomiting. Patient also not sure if any success with fentanyl patch, feeling dizzy overall. UA suspicious for possible infection. History of ESBL will treat given immunocompromised patient. #Intractable Nausea and Vomiting Recent chemotherapy, suspicious UTI, discontinued fentanyl patch -IV dex and olanzapine NCCN guidelines recommend oral olanzipine 10mg for 3 days to -Will trial po olanzapine 10mg qhs this evening x 3 doses with IM for breakthrough Marinol added prn for additional agent Palliative consult in morning per patient request QTC 455 Treat UA as follows #Abnormal UA -Prior ESBL history Ertapenem 48 hours, follow cultures #Uncontrolled DM Continue home Lantus insulin Sliding scale Glycemic consult #Leukopenia with mild neutropenia #Acute on Chronic normocytic anemia #Immunocompromised 2/2 chemotherapy no current signs of bleed, recent chemotherapy 04/26 Baselin 9-10, hgb 7.8 today, platelets stable, ANC 1.18K No signs of bleed CBC in am with diff Isolation precautions Consider heme if ANC drops and GSF necessary #Metastatic breast cancer #Acute on chronic cancer pain, bony mets to ribs #immunocompromised 2/2 malignancy History of chemo and radiation There was plan for starting chemo tomorrow as per patient -Continue prn oxy #Hypomagnesia Will replace #Hypothyroidism On Synthyroid #History of moderate hypercalcemia History of hypercalcemia in end of January 2023 received calcitonin ,fluids and Zometa Stable this admission DVT prophylaxis Lovenox Disposition med/surg CODE STATUS DNR/DNI Admission and Anticipated Discharge Date Admission Date: May 01, 2023 Subjective Patient evaluated at bedside Actively crying and vomiting, stat dex/olanzapine ordered for post-chem refractory [place] ---noted significant resolution of symptoms upon revaluation Physical Exam Constitutional: weak, sickly woman Respiratory: normal respiratory effort, lungs clear to auscultation Cardiovascular: RRR, no murmur, no edema Results & Data Results & Data Vital Signs (Past 12 Hours) Vital Signs Pulse Pulse Resp BP BP Pulse Ox O2 Del Method 05/02/23 07:25 84 05/02/23 07:00 88 14 05/02/23 06:39 83 20 123/63 97 Room Air 05/02/23 06:38 83 10 L 05/02/23 06:38 123/63 05/02/23 03:00 92 H 16 132/62 96 Room Air Laboratory Results Short CBC 05/01/23 05/02/23 Range/Units 15:23 06:58 WBC 3.14 L 2.91 L (4.8-10.8) K/ul Hgb 9.0 L 7.8 L (12.0-16.0) g/dl Hct 24.5 L 22.6 L (37.0-47.0) % Plt Count 230 203 (130-400) K/uL BMP 05/01/23 05/02/23 15:23 06:58 Sodium 132 L 138 Potassium 3.9 3.4 L Chloride 96 L 105 Carbon Dioxide 22 27 BUN 18 13 Creatinine 0.85 0.67 Glucose 397 H* 182 H Calcium 9.2 8.2 L Liver Function 05/01/23 Range/Units 15:23 Total Bilirubin 1.0 (0.2-1.0) mg/dl AST 34 (13-39) U/L ALT 18 (7-52) U/L Alkaline Phosphatase 143 H (34-104) U/L Albumin 3.6 (3.4-5.0) gm/dl Urine 05/01/23 Range/Units 19:18 Urine Color Dark Yellow Urine Appearance Turbid A (Clear) Urine pH 5.5 (4.5-7.5) Ur Specific [place] 1.030 (1.000-1.030) Urine Protein 2+ H (Negative) Urine Glucose (UA) 3+ H (Negative) Medications Administered Home Medications Medication Instructions Recorded Confirmed Last Taken denosumab 120 mg/1.7 mL (70 mg/mL) 120 mg subcut .Q 3months 01/01/22 05/01/23 01/29/23 subcutaneous solution (Xgeva) blood-glucose sensor (Dexcom G6 12/17/22 04/19/23 Unknown Sensor device) blood-glucose transmitter (Dexcom 12/17/22 04/19/23 Unknown G6 Transmitter device) insulin aspart U-100 100 unit/mL 10 unit subcut AC 12/17/22 05/01/23 05/01/23 (3 mL) subcutaneous pen (Novolog FlexPen U-100 Insulin aspart) insulin glargine 100 unit/mL (3 30 unit subcut BID 12/17/22 05/01/23 05/01/23 mL) subcutaneous pen (Lantus Solostar U-100 Insulin) ondansetron HCl 8 mg tablet 8 mg PO Q12H PRN Nausea 12/17/22 05/01/23 Unknown pen needle, diabetic 32 gauge x 12/17/22 04/19/23 Unknown 532" (BD Ultra-Fine Aletha Pen Needle) promethazine 25 mg tablet 25 mg PO TID PRN nausea and 01/26/23 05/01/23 Unknown vomiting #20 tabs fentanyl 75 mcg/hr transdermal 75 mcg transdermal Q3D #10 ea 04/22/23 05/01/23 Unknown patch magnesium oxide 400 mg (241.3 mg 400 mg PO BID 30 days #60 tabs 04/22/23 05/01/23 05/01/23 magnesium) tablet oxycodone 10 mg tablet 20 mg (2 x 10 mg) PO Q4 PRN 04/22/23 05/01/23 04/18/23 22:00 breakthrough pain #14 tabs sennosides 8.6 mg-docusate sodium 1 tab PO QAM 30 days #30 tabs 04/22/23 05/01/23 05/01/23 50 mg tablet (Senokot-S) Active Medications Generic Name Dose Route Start Last Admin Trade Name Freq PRN Reason Stop Dose Admin Enoxaparin Sodium 40 mg 05/02/23 09:00 05/02/23 09:03 Enoxaparin Inj 40 Mg/0.4 Ml Syr SQ 06/01/23 08:59 Not Given Q24H JESSE Sodium Chloride 1,000 mls @ 125 mls/hr 05/01/23 23:12 05/02/23 07:55 Nss IV 05/31/23 23:11 125 mls/hr .Q8H JESSE Administration Ertapenem 1,000 mg/ Syringe 10 mls @ 2 mls/min 05/02/23 08:30 05/02/23 09:03 IV 05/07/23 08:29 2 mls/min Q24H JESSE Administration Protocol Insulin Aspart 0 units 05/02/23 07:30 05/02/23 13:24 Insulin Aspart Per Unit Charge SC 06/01/23 07:29 7 units ACHS JESSE Administration Insulin Glargine 30 units 05/02/23 09:00 05/02/23 09:03 Lantus Per Unit Charge SQ 06/01/23 08:59 30 units BID JESSE Administration Magnesium Oxide 400 mg 05/02/23 09:00 05/02/23 09:03 Magnesium Oxide 400 Mg Tab PO 06/01/23 08:59 Not Given BID JESSE Ondansetron HCl 4 mg 05/01/23 23:12 05/02/23 09:16 Ondansetron Inj 2 Mg/Ml 2 Ml Vial IV 05/31/23 23:11 4 mg Q6H PRN Administration Nausea Senna/Docusate Sodium 1 tab 05/02/23 09:00 05/02/23 09:03 Docusate Sodium/Senna 50/8.6mg Tab PO 06/01/23 08:59 Not Given QAM JESSE
[2023-05-02] MEDS ORDERED: OLANZapine 10 MG/2.1 ML SDV IM PRN (13:39)
[2023-05-02] MEDS: POTASSIUM CHLORIDE / WTR 10 MEQ/100 ML PLCT IV SCH (14:13)
[2023-05-02] MEDS: MAGNESIUM SULFATE / D5W 1 GM/100 ML BAG IV SCH (14:13)
[2023-05-02] MEDS: INSULIN ASPART PER UNIT CHARGE SC STA (17:37)
[2023-05-02] MEDS: HYDROmorphone INJ 0.5 MG/0.5 ML SYR IV PRN (19:08)
[2023-05-02] MEDS ORDERED: cefTRIAXone SODIUM 2,000 MG in DEXTROSE 5 % MINI-B 50 ML IV SCH (22:00)
[2023-05-03 07:47] LABS: Hematocrit (blood only) 21.5 % (37.0-47.0); Hemoglobin 7.6 g/dl (12.0-16.0); Mean Corpuscular Hemoglobin 30.3 pg (25.0-34.0); Mean Corpuscular Hgb Conc 35.3 g/dL (32.0-36.0); Mean Corpuscular Volume 85.7 fL (80.0-100.0); Mean Platelet Volume 9.1 fL (9.4-12.4); Nucleated RBC # (auto) 0.03 K/uL (0.00-0.12); Nucleated RBC % (auto) 1.4 %; Platelet Count 197 K/uL (130-400); RDW Coefficient of Variation 14.9 % (11.5-14.5); RDW Standard Deviation 46.1 fL (36.4-46.3); Red Blood Count 2.51 M/uL (4.20-5.40); White Blood Count 2.19 K/ul (4.8-10.8)
[2023-05-03 08:04] LABS: BUN Creatinine Ratio 13.8 (10-20); Calcium 8.1 mg/dl (8.6-10.3); Creatinine Clr Calc Pharmacy 137.6 ml/min; Est GFR (African American) 123.4 ml/min; Est GFR (Non-African American) 106.5 ml/min; Magnesium 1.8 mg/dl (1.7-2.4); Phosphorus 2.6 mg/dl (2.5-4.9); Potassium 3.1 mmol/L (3.5-5.1)
[2023-05-03] MEDS: POTASSIUM CHLORIDE CRTAB 20 MEQ TABCR PO SCH (09:19)
[2023-05-03 09:29] LABS: Basophils # (auto) 0.06 K/uL (0.00-0.20); Basophils % (auto) 2.7 %; Eosinophils # (auto) 0.01 K/uL (0.00-0.50); Eosinophils % (auto) 0.5 %; Immature Granulocytes # (auto) 0.07 K/uL (0.01-0.20); Immature Granulocytes % (auto) 3.2 %; Lymphocytes # (auto) 1.29 K/uL (1.20-3.40); Lymphocytes % (auto) 58.9 %; Monocytes # (auto) 0.21 K/uL (0.11-0.59); Monocytes % (auto) 9.6 %; Neutrophils # (auto) 0.55 K/uL (1.40-6.50); Neutrophils % (auto) 25.1 %
[2023-05-03 09:35] LABS: Tear Drop Cells 1+
--- NOTE | 2023-05-03 10:34 | Palliative Care Consultation ---
Date of Consultation May 03, 2023 Assessment & Plan (1) Refractory nausea and vomiting: improving with olanzapine, can continue this at home and stop zofran (2) Depression: Yamilka shared that one of her closest friends, another cancer patient here that we cared for yesterday and she had just found out. Yamilka shared that she and her friend Miguel spoke everyday, and grew up/went to school together. It was hard for her not having the chance to visit Miguel and say goodbye. This added to her overwhelming sadness and frustration. She is working through her grief and now feeling less "I want to give up everything" and more "Let's see what we can do, I want to have cancer follow up and talk about my chemo." (3) Cancer related pain: for now will use prn meds and will have follow up OP clinic with me in 1-2 weeks post dc to revisit long acting options for cancer pain relief (4) Cancer-related breakthrough pain: (5) Weakness generalized: (6) Breast cancer metastasized to bone: Laterality: unspecified laterality Qualified Code(s): C50.919 - Malignant neoplasm of unspecified site of unspecified female breast; C79.51 - Secondary malignant neoplasm of bone (7) Advanced care planning/counseling discussion: (8) Palliative care by specialist: Met with pt/family. Provided overview of Palliative Medicine, a subspecialty that provides specialized medical care for people living with a serious illness by offering a focus on quality of life. Palliative Medicine is often conflated with hospice: I advised patient/family that Palliative and hospice can be partners but we are not the same. It is important to understand the difference so that we may be informed, and not afraid. Palliative Medicine works to improve QOL through reduction of symptom burden/more control over their illness, for both the patient and family. Palliative medicine clinicians are board certified, specially-trained and another member of the patient's medical care team. We often provide an extra layer of support because our care is based on the needs of the patient, not the prognosis; as such, it's appropriate at any age/advancing stage of a serious illness and can be provided along with curative treatment. Palliative Medicine clinicians are also trained in advanced communication methodologies, to facilitate complex discussions about advanced illness planning, which are needed to help assure that the treatment choices match the patient's goals, aka delivering Goal Concordant care. Finally, we discussed that hospice is a visiting nurse service that focuses on care delivered at the very end of life for patients with terminal illness, with life expectancy less than 6 month. Plan * NO changes * Continue Zyprexa for nausea, can titrate dose down to 7.5mg BID * Stop Zofran * if not enough can discuss adding Aloxi in OP setting * No new pain reccs for now * She hopes to be dc today Thank you for allowing us to participate in the ongoing care of this patient. Please don't hesitate to call or page with any additional concerns. Dr. Luna Limon DNP Director, Palliative Care History of Present Illness Reason for Consultation: N/V pain mgmt, goals (patient torn at this time) Attending Physician: Ambreen Magallanes MD History of Present Illness Yamilka is a 48yo female with adv met breast cancer who is well known to Palliative Med from recent admission, currently represents with refractory n/v. Has likely UTI Pt reported waking up feeling n/v, dizzy. No Abd pain. no dyspnea. She removed her TDF at home and noticed symptoms persisted several hours alter ultimately prompting 05/01/23 ER eval. During ED eval: EKG showed normal sinus rhythm. Rate 89 bpm. QT 374. No acute ischemic changes. Labs: leukopenia (WBC 3.14); anemia (Hgb 9.0); slight hyponatremia (Na 132); elevated anion gap (14); hyperglycemia (glucose 397); elevated lactate (3.0); normal troponin +UA showed concern for infection Respiratory viral panel positive for coronavirus type HKU1 - this is unchanged from earlier admission CXR negative for pneumonia She was treated in ED with the followinL NS and 4 mg IV zofran on arrival. Repeat lactate improved after IVF however her n/v persisted and she began c/o right hip pain for which she declined fentanyl dose. She was given an additional 4 mg IV zofran, 0.5 mg IV dialudid, 1L NS and 10 units insulin. She had 2g IV rocephin ordered for UTI treatment. PMH: metastatic breast cancer, diabetes, hypothyroidism history of hypercalcemia, depression with anxiety, peripheral neuropathy, history of small bowel obstruction Currently on NCCN guideline recommended trial of oral olanzapine 10mg for 3 days During 04/22/23 Pall Med consult, Yamilka was using Oxycodone 90mg orally/day pr ior to admission with the following opioid utilization recorded: Oxy IR 90mg = MS IR 180mg PO MS IR 180mg PO = 60mg IV MS equivalents This was roughly about 50mcg TDF but she is having more pain now and the dose equivalent equals her prior to admission baseline and does not account for increased pain We therefore increased to TDF 75mcg patch, and icnreased to Oxy IR 20mg PO q4h prn/hold for somnolence or RR<14/min. She was tolerating her TDF dose increase without issues during this prior admission. Allergies Allergy/AdvReac Type Severity Reaction Status Date / Time No Known Allergies Allergy Verified 04/19/23 17:28 Home Medications Medication Instructions Recorded Confirmed Type denosumab 120 mg/1.7 mL (70 mg/mL) 120 mg subcut .Q 3months 01/01/22 05/01/23 History subcutaneous solution (Xgeva) blood-glucose sensor (Dexcom G6 12/17/22 04/19/23 History Sensor device) blood-glucose transmitter (Dexcom 12/17/22 04/19/23 History G6 Transmitter device) insulin aspart U-100 100 unit/mL 10 unit subcut AC 12/17/22 05/01/23 History (3 mL) subcutaneous pen (Novolog FlexPen U-100 Insulin aspart) insulin glargine 100 unit/mL (3 30 unit subcut BID 12/17/22 05/01/23 History mL) subcutaneous pen (Lantus Solostar U-100 Insulin) ondansetron HCl 8 mg tablet 8 mg PO Q12H PRN Nausea 12/17/22 05/01/23 History pen needle, diabetic 32 gauge x 12/17/22 04/19/23 History 5/32" (BD Ultra-Fine Aletha Pen Needle) promethazine 25 mg tablet 25 mg PO TID PRN nausea and 01/26/23 05/01/23 Rx vomiting #20 tabs fentanyl 75 mcg/hr transdermal 75 mcg transdermal Q3D #10 ea 04/22/23 05/01/23 Rx patch magnesium oxide 400 mg (241.3 mg 400 mg PO BID 30 days #60 tabs 04/22/23 05/01/23 Rx magnesium) tablet oxycodone 10 mg tablet 20 mg (2 x 10 mg) PO Q4 PRN 04/22/23 05/01/23 Rx breakthrough pain #14 tabs sennosides 8.6 mg-docusate sodium 1 tab PO QAM 30 days #30 tabs 04/22/23 05/01/23 Rx 50 mg tablet (Senokot-S) Patient History Medical History (Updated 05/03/23 @ 19:50 by Luna Limon DNP) Depression Refractory nausea and vomiting Palliative care by specialist Advanced care planning/counseling discussion Breast cancer metastasized to bone Weakness generalized Cancer-related breakthrough pain Cancer related pain History of COVID-19 12/2020 + 12/2021 > residual taste dysfunction and feeling of need to clear throat Bilateral breast cancer Arthritis Liver spots "Mets from cancer" Depression with anxiety Peripheral neuropathy Heart palpitations R/t anxiety per patient Type II diabetes mellitus History of small bowel obstruction Hx bowel obstruction Hypothyroidism No current meds Breast cancer (11/12/15) Stage 4 (+ mets) Surgical History History of tubal ligation Port-A-Cath in place (04/30/22) Insertion Access Port left subclavian with Fluoroscopy(Left) - Chad Banuelos, History of surgery Left Excisional Debridement of Buttock Wound Nausea and vomiting after administration of anesthetic agent "EXTREME" History of vascular access device PORT INSERTION/REMOVAL History of tooth extraction History of endometrial ablation History of bowel resection D/T BOWEL OBSTRUCTION History of lung surgery Left thoracoscopy with wedge resection left lower lobe Dr. Damico 03/29/2018 History of dilatation and curettage H/O hernia repair Hx of section x3 S/P lumpectomy, left breast LEFT ARM LIMB RESTRICTION Family History Mother , 77yo Diabetes Heart disease Aortic valve replacement Mitral valve calcifications UTI (urinary tract infection) Father , 62yo Diabetes Myocardial infarction Hypertension Stroke Brother Diabetes Myocardial infarction Cardiac stents Pacemaker Hypertension Sister No problems noted. Daughter No problems noted. Son No problems noted. Son No problems noted. 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 Mild bitemporal wasting. She appears older than stated age.PERRLA, EOMIs. Dentition is poor/+edentulous. MM dry. Respiratory effort normal. Neck is supple. No stridor. No JVD. Abdomen is soft. Nontender. Bowel sounds present throughout. Generalized weakness throughout. Slightly weaker on the left than the right. Skin is pale, warm to touch. Multiple tattoos across the skin noticed. Patient is awake, alert and oriented x 3. Delirium screen is negative. NO SI/PI Results & Data Vital Signs (Past 12 Hours) Vital Signs Temp Pulse Pulse Resp BP Pulse Ox O2 Del Method 05/03/23 08:31 36.5 C 75 16 104/70 96 Room Air 05/03/23 07:46 80 05/02/23 23:36 78 05/02/23 23:02 36.8 C 87 18 94/57 L 98 Room Air Laboratory Results data reviewed, see HPI Diagnostic Findings data reviewed, see HPI PG Care Time/CCT Total # of Minutes Spent Total Time Spent with Patient: Total time spent is greater than 50% in coordination of care (as documented) at patient's floor/unit and/or counseling patient: I spent 65 minutes overall addressing this case: 15 min in medical data review/discussion with referring provider(s) and/or preparation for the visit 15 min in direct interaction with the patient/exam 10 min in Advance Care Planning/Goals of Care discussions as detailed above in note (must be >16min) 10 min in subsequent review and synthesis of assessment and plan 15 min communicating with other providers regarding the patient's case: [place] [address] IN/OBS CONSULT LVL 4,60M Patient Type New History Comprehensive Exam Comprehensive Medical Decision Making High Complexity Diagnoses Refractory nausea and vomiting R11.2 Depression F32.A Cancer related pain G89.3 Cancer-related breakthrough pain G89.3 Weakness generalized R53.1 Carcinoma of breast metastatic to bone, unspecified laterality C50.919; C79.51 Laterality: unspecified laterality Advanced care planning/counseling discussion Z71.89 Palliative care by specialist Z51.5
[2023-05-03] MEDS: FLUCONAZOLE 100 MG TAB PO SCH (11:33)
[2023-05-03] MEDS: POTASSIUM CHLORIDE / WTR 10 MEQ/100 ML PLCT IV SCH (11:33)
--- NOTE | 2023-05-03 14:28 | Hospitalist Progress Note ---
Date of Service May 03, 2023 Assessment & Plan (1) Intractable vomiting: Plan: Ms. Vega is a 48-year-old female with past medical history significant for metastatic breast cancer, diabetes, hypothyroidism history of hypercalcemia, depression with anxiety, peripheral neuropathy, history of small bowel obstruction with recurrence nausea and vomiting. Patient also not sure if any success with fentanyl patch, feeling dizzy overall. UA suspicious for possible infection. History of ESBL will treat given immunocompromised patient. #Intractable Nausea and Vomiting Recent chemotherapy, suspicious UTI, discontinued fentanyl patch -IV dex and olanzapine NCCN guidelines recommend oral olanzipine 10mg for 3 days to -Continue trial po olanzapine 10mg qhs this evening x 3 doses with IM for breakthrough Marinol added prn for additional agent Palliative consult ordered, awaiting recommendations QTC 455 Treat UA as follows #Yeast infection #Abnormal UA -Prior ESBL history Ertapenem 48 hours, discontinue Cultures with yeast, given immunocompromised state, inclined to treat #Uncontrolled DM Continue home Lantus insulin Sliding scale Glycemic consult #Leukopenia with severe neutropenia #Acute on Chronic normocytic anemia #Immunocompromised 2/2 chemotherapy no current signs of bleed, recent chemotherapy 04/26 Baselin 9-10, hgb 7.8 today, platelets stable, ANC 1.18K No signs of bleed CBC in am with diff Isolation precautions, neutropenia Heme/onc consult to determine needs for GCSF #Metastatic breast cancer #Acute on chronic cancer pain, bony mets to ribs #immunocompromised 2/2 malignancy History of chemo and radiation There was plan for starting chemo tomorrow as per patient -Continue prn oxy #Hypomagnesia Will replace #Hypothyroidism On Synthyroid #History of moderate hypercalcemia History of hypercalcemia in end of January 2023 received calcitonin ,fluids and Zometa Stable this admission DVT prophylaxis Lovenox Disposition med/surg CODE STATUS DNR/DNI Admission and Anticipated Discharge Date Admission Date: May 01, 2023 Subjective Patient evaluated at bedside Denies any acute concerns, notes improvement with nausea with the olanzapine Declines oral lyte replacement, but will do IV Physical Exam Constitutional: WD/WN, vitals as above Respiratory: normal respiratory effort, lungs clear to auscultation Cardiovascular: RRR, no murmur, no edema Gastrointestinal (Abdomen): normal bowel sounds, soft, nontender, no hepatosplenomegaly Results & Data Results & Data Vital Signs (Past 12 Hours) Vital Signs Temp Pulse Pulse Resp BP Pulse Ox O2 Del Method 03/04/24 12:12 36.4 C L 78 16 119/78 97 Room Air 05/03/23 08:31 36.5 C 75 16 104/70 96 Room Air 05/03/23 07:46 80 Laboratory Results Short CBC 05/03/23 Range/Units 07:24 WBC 2.19 L (4.8-10.8) K/ul Hgb 7.6 L (12.0-16.0) g/dl Hct 21.5 L (37.0-47.0) % Plt Count 197 (130-400) K/uL BMP 05/03/23 07:24 Sodium 137 Potassium 3.1 L Chloride 106 Carbon Dioxide 26 BUN 9 Creatinine 0.65 Glucose 133 H Calcium 8.1 L Medications Administered Home Medications Medication Instructions Recorded Confirmed Last Taken denosumab 120 mg/1.7 mL (70 mg/mL) 120 mg subcut .Q 3months 01/01/22 05/01/23 01/29/23 subcutaneous solution (Xgeva) blood-glucose sensor (Dexcom G6 12/17/22 04/19/23 Unknown Sensor device) blood-glucose transmitter (Dexcom 12/17/22 04/19/23 Unknown G6 Transmitter device) insulin aspart U-100 100 unit/mL 10 unit subcut AC 12/17/22 05/01/23 05/01/23 (3 mL) subcutaneous pen (Novolog FlexPen U-100 Insulin aspart) insulin glargine 100 unit/mL (3 30 unit subcut BID 12/17/22 05/01/23 05/01/23 mL) subcutaneous pen (Lantus Solostar U-100 Insulin) ondansetron HCl 8 mg tablet 8 mg PO Q12H PRN Nausea 12/17/22 05/01/23 Unknown pen needle, diabetic 32 gauge x 12/17/22 04/19/23 Unknown 532" (BD Ultra-Fine Aletha Pen Needle) promethazine 25 mg tablet 25 mg PO TID PRN nausea and 01/26/23 05/01/23 Unknown vomiting #20 tabs fentanyl 75 mcg/hr transdermal 75 mcg transdermal Q3D #10 ea 04/22/23 05/01/23 Unknown patch magnesium oxide 400 mg (241.3 mg 400 mg PO BID 30 days #60 tabs 0205/01/23 05/01/23 magnesium) tablet oxycodone 10 mg tablet 20 mg (2 x 10 mg) PO Q4 PRN 04/22/23 05/01/23 04/18/23 22:00 breakthrough pain #14 tabs sennosides 8.6 mg-docusate sodium 1 tab PO QAM 30 days #30 tabs 04/22/23 05/01/23 05/01/23 50 mg tablet (Senokot-S) Active Medications Generic Name Dose Route Start Last Admin Trade Name Freq PRN Reason Stop Dose Admin Enoxaparin Sodium 40 mg 05/02/23 09:00 05/03/23 09:19 Enoxaparin Inj 40 Mg/0.4 Ml Syr SQ 06/01/23 08:59 Not Given Q24H JESSE Fluconazole 200 mg 05/03/23 10:00 05/03/23 11:33 Fluconazole 100 Mg Tab PO 05/08/23 09:59 200 mg QAM JESSE Administration Hydromorphone HCl 0.5 mg 05/01/23 23:12 05/03/23 11:26 Hydromorphone Inj 0.5 Mg/0.5 Ml Syr IV 05/15/23 23:11 0.5 mg Q3H PRN Administration Severe Pain (Scale 7, 8, 9,10) Sodium Chloride 1,000 mls @ 125 mls/hr 05/01/23 23:12 05/03/23 09:20 Nss IV 05/31/23 23:11 125 mls/hr .Q8H JESSE Administration Insulin Aspart 0 units 05/02/23 07:30 05/03/23 12:49 Insulin Aspart Per Unit Charge SC 06/01/23 07:29 11 units ACHS JESSE Administration Insulin Glargine 30 units 05/02/23 09:00 05/03/23 09:17 Lantus Per Unit Charge SQ 06/01/23 08:59 30 units BID JESSE Administration Magnesium Oxide 400 mg 05/02/23 09:00 05/03/23 09:19 Magnesium Oxide 400 Mg Tab PO 06/01/23 08:59 Not Given BID JESSE Olanzapine 10 mg 05/02/23 21:00 05/02/23 21:23 Olanzapine Zydis 10 Mg Orally Dis. Tab PO 05/04/23 21:01 10 mg HS JESSE Administration Ondansetron HCl 4 mg 05/01/23 23:12 05/02/23 09:16 Ondansetron Inj 2 Mg/Ml 2 Ml Vial IV 05/31/23 23:11 4 mg Q6H PRN Administration Nausea Senna/Docusate Sodium 1 tab 05/02/23 09:00 05/03/23 09:18 Docusate Sodium/Senna 50/8.6mg Tab PO 06/01/23 08:59 Not Given QAM JESSE
--- NOTE | 2023-05-03 15:54 | Oncology Consultation ---
Date of Consultation May 03, 2023 Assessment & Plan (1) Intractable vomiting: Continue Zyprexa and Zofran for nausea. Can add prochlorperazine if the nausea is not controlled while in the hospital. Would also recommend consideration of second line agent such as dexamethasone and benzodiazepines if the nausea persist despite Zyprexa and Zofran use. Zofran can be scheduled [id number]. (2) Cancer related pain: For cancer related pain recommend continuing oxycodone and Dilaudid. Currently the pain is well-managed (3) Breast cancer: Outpatient evaluation and continued management of breast cancer. Plan Medical oncology will continue to follow the patient make appropriate recommendations for History of Present Illness Reason for Consultation: Breast cancer Attending Physician: Ambreen Magallanes MD History of Present Illness The patient is a very pleasant 48-year-old woman with metastatic breast cancer who is well-known to me. She was initially diagnosed in 2016 and developed widespread metastatic breast cancer in 2018. Since then she has been on different chemotherapeutic agent, most recently was started on erbulin as 6th line palliative agent. She received her first cycle of eribulin on 04/26/2023. Since then the patient has developed increased nausea and vomiting. She has been started on fentanyl and felt dizzy. Overnight she was having a lot of nausea and vomiting and she was not feeling well. Medical oncology has been consulted to assist in management management of this patient with metastatic breast cancer and intractable nausea and vomiting Allergies Allergy/AdvReac Type Severity Reaction Status Date / Time No Known Allergies Allergy Verified 04/19/23 17:28 Home Medications Medication Instructions Recorded Confirmed Type denosumab 120 mg/1.7 mL (70 mg/mL) 120 mg subcut .Q 3months 01/01/22 05/01/23 History subcutaneous solution (Xgeva) blood-glucose sensor (Dexcom G6 12/17/22 04/19/23 History Sensor device) blood-glucose transmitter (Dexcom 12/17/22 04/19/23 History G6 Transmitter device) insulin aspart U-100 100 unit/mL 10 unit subcut AC 12/17/22 05/01/23 History (3 mL) subcutaneous pen (Novolog FlexPen U-100 Insulin aspart) insulin glargine 100 unit/mL (3 30 unit subcut BID 12/17/22 05/01/23 History mL) subcutaneous pen (Lantus Solostar U-100 Insulin) ondansetron HCl 8 mg tablet 8 mg PO Q12H PRN Nausea 12/17/22 05/01/23 History pen needle, diabetic 32 gauge x 12/17/22 04/19/23 History " (BD Ultra-Fine Aletha Pen Needle) promethazine 25 mg tablet 25 mg PO TID PRN nausea and 01/26/23 05/01/23 Rx vomiting #20 tabs fentanyl 75 mcg/hr transdermal 75 mcg transdermal Q3D #10 ea 04/22/23 05/01/23 Rx patch magnesium oxide 400 mg (241.3 mg 400 mg PO BID 30 days #60 tabs 04/22/23 05/01/23 Rx magnesium) tablet oxycodone 10 mg tablet 20 mg (2 x 10 mg) PO Q4 PRN 04/22/23 05/01/23 Rx breakthrough pain #14 tabs sennosides 8.6 mg-docusate sodium 1 tab PO QAM 30 days #30 tabs 04/22/23 05/01/23 Rx 50 mg tablet (Senokot-S) Patient History Medical History (Updated 05/03/23 @ 19:50 by Luna Limon, ELE) Depression Refractory nausea and vomiting Palliative care by specialist Advanced care planning/counseling discussion Breast cancer metastasized to bone Weakness generalized Cancer-related breakthrough pain Cancer related pain History of COVID-19 12/2020 + 12/2021 > residual taste dysfunction and feeling of need to clear throat Bilateral breast cancer Arthritis Liver spots "Mets from cancer" Depression with anxiety Peripheral neuropathy Heart palpitations R/t anxiety per patient Type II diabetes mellitus History of small bowel obstruction Hx bowel obstruction Hypothyroidism No current meds Breast cancer (11/12/15) Stage 4 (+ mets) Surgical History History of tubal ligation Port-A-Cath in place (04/30/22) Insertion Access Port left subclavian with Fluoroscopy(Left) - Chad Banuelos DO History of surgery Left Excisional Debridement of Buttock Wound Nausea and vomiting after administration of anesthetic agent "EXTREME" History of vascular access device PORT INSERTION/REMOVAL History of tooth extraction History of endometrial ablation History of bowel resection D/T BOWEL OBSTRUCTION History of lung surgery Left thoracoscopy with wedge resection left lower lobe Dr. Damico 03/29/2018 History of dilatation and curettage H/O hernia repair Hx of section x3 S/P lumpectomy, left breast LEFT ARM LIMB RESTRICTION Family History Mother , 77yo Diabetes Heart disease Aortic valve replacement Mitral valve calcifications UTI (urinary tract infection) Father , 62yo Diabetes Myocardial infarction Hypertension Stroke Brother Diabetes Myocardial infarction Cardiac stents Pacemaker Hypertension Sister No problems noted. Daughter No problems noted. Son No problems noted. Son No problems noted. 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 How many Children do You have: 3 Other Information That Helps Us Care for You: No Feels Safe at Home: No Is there a partner from a previous relationship who is making you feel unsafe now?: No Safety Concerns: Feels Safe At This Time Diet: regular caffeine: No during the past year weight has: remained stable Assistive Devices: None Review of Systems Review of Systems: All systems reviewed & are unremarkable except as noted in HPI & below Constitutional: as per Subjective / HPI Eyes: as per Subjective / HPI Ear, Nose, Mouth, Throat: as per Subjective / HPI Respiratory: as per Subjective / HPI Cardiovascular: as per Subjective / HPI Gastrointestinal: as per Subjective / HPI Genitourinary: as per Subjective / HPI Musculoskeletal: as per Subjective / HPI Integumentary: as per Subjective / HPI Neurologic: as per Subjective / HPI Results & Data Vital Signs (Past 12 Hours) Vital Signs Temp Pulse Pulse Resp BP Pulse Ox O2 Del Method 05/03/23 15:51 84 05/03/23 12:12 36.4 C L 78 16 119/78 97 Room Air 05/03/23 08:31 36.5 C 75 16 104/70 96 Room Air 05/03/23 07:46 80 (3) Breast cancer Breast location: unspecified site of breast Estrogen receptor status: unspecified Laterality: unspecified laterality Patient sex: female Qualified Code(s): C50.919 - Malignant neoplasm of unspecified site of unspecified female breast
[2023-05-04 07:50] LABS: Hematocrit (blood only) 22.4 % (37.0-47.0); Hemoglobin 7.6 g/dl (12.0-16.0); Mean Corpuscular Hemoglobin 29.5 pg (25.0-34.0); Mean Corpuscular Hgb Conc 33.9 g/dL (32.0-36.0); Mean Corpuscular Volume 86.8 fL (80.0-100.0); Nucleated RBC # (auto) 0.08 K/uL (0.00-0.12); Nucleated RBC % (auto) 4.4 %; Platelet Count 214 K/uL (130-400); RDW Coefficient of Variation 15.3 % (11.5-14.5); RDW Standard Deviation 47.2 fL (36.4-46.3); Red Blood Count 2.58 M/uL (4.20-5.40); White Blood Count 1.83 K/ul (4.8-10.8)
[2023-05-04 08:15] LABS: BUN Creatinine Ratio 12.3 (10-20); Creatinine Clr Calc Pharmacy 139.2 ml/min; Est GFR (African American) 123.4 ml/min; Est GFR (Non-African American) 106.5 ml/min; Potassium 3.3 mmol/L (3.5-5.1)
[2023-05-04 08:37] LABS: Basophils # (auto) 0.04 K/uL (0.00-0.20); Basophils % (auto) 2.2 %; Immature Granulocytes # (auto) 0.02 K/uL (0.01-0.20); Immature Granulocytes % (auto) 1.1 %; Lymphocytes # (auto) 1.29 K/uL (1.20-3.40); Lymphocytes % (auto) 70.5 %; Monocytes # (auto) 0.21 K/uL (0.11-0.59); Monocytes % (auto) 11.5 %; Neutrophils # (auto) 0.27 K/uL (1.40-6.50); Neutrophils % (auto) 14.7 %; Polychromasia 1+
[2023-05-04] MEDS: POTASSIUM CHLORIDE / WTR 10 MEQ/100 ML PLCT IV SCH (09:59)
[2023-05-04] MEDS: oxyCODONE HCL IR 5 MG TAB (IMMEDIATE RELEASE) PO PRN (14:59)
[2023-05-04] MEDS: HEPARIN 100 UNIT/ML 5ML FLUSH FLUSH PRN (16:20)
[2023-05-04] MEDS: levoFLOXacin 750 MG TAB PO ONE (16:20)
--- NOTE | 2023-05-05 11:08 | Discharge Summary ---
Discharge Summary Date of Service May 05, 2023 Notes For Next Care Provider Discussed with Dr. Vazquez regarding dispo planning. Close follow up with Heme onc Medication Changes From Visit -Olanzapine 10mg qhs -Levaquin 500mg daily ppx -Fluconazole 200mg daily Admission HPI Per Admitting Provider 48-year-old female with past medical history significant for metastatic breast cancer, diabetes, hypothyroidism history of hypercalcemia, depression with anxiety, peripheral neuropathy, history of small bowel obstruction was recently in the hospital for moderate hypercalcemia treated with fluids and Zometa and also seen by palliative care and was recommended fentanyl patch 75 mcg every 3 days and also changed oxycodone to 20 mg every 4 hours as needed and to follow up as outpatient. Patient states she had chemo last Wednesday. Since couple of days she is getting nauseous and vomiting. Yesterday she had her second fentanyl patch after which she felt dizzy not felt well and took off the patch. Overnight she was having lot of nausea vomiting and not feeling well which prompted her to come to the ER. In the ER she also found to be hyperglycemic. Even after antiemetics and fluids she is still not feeling well . Denies any chest pain or shortness of breath. No fevers. Few days ago she had diarrhea but currently constipated. Micturating okay. Denies any burning micturition. No fevers. No chest pain or shortness of breath. No headache. Vision is okay. No earache or runny nose or sore throat. No cough. Hemodynamics are okay. Past medical history. As mentioned above Past surgical history. Left excisional debridement of buttock wound. History of tooth extraction. History of endometrial ablation. History of bowel resecti on. Left thoracoscopy with wedge resection of left lower lobe. History of dilatation curettage. History of hernia repair. History of x 3. Left breast lumpectomy. Family history. Mother had diabetes. Multiple replacement. UTI. Father had diabetes. [place]. Hypertension. Stroke. Brother has diabetes. [place]. Pacemaker. Hypertension. Social history. No smoking. No alcohol use. No drug use. Admission Exam Per Admitting Provider General- Not in distress. Head- atraumatic Eyes- PERRL. ENT- oropharynx dry Neck- supple, no JVD. Lungs- clear to auscultation no wheezing or crackles. Heart- regular rhythm; no murmur, no gallop. Abdomen- normal bowel sounds, soft, nontender, no distension. Extremities- no pretibial edema, no erythema Neuro- alert, oriented PERRL, no facial palsy; no dysarthria; moves extremities. Principal Dx & Hospital Course #1 = Principal Diagnosis (1) Intractable vomiting: Ms. Vega is a 48-year-old female with past medical history significant for metastatic breast cancer, diabetes, hypothyroidism history of hypercalcemia, depression with anxiety, peripheral neuropathy, history of small bowel obstruction with recurrence nausea and vomiting. Patient also not sure if any success with fentanyl patch, feeling dizzy overall. UA suspicious for possible infection. History of ESBL will treat given immunocompromised patient. #Intractable Nausea and Vomiting Recent chemotherapy, suspicious UTI, discontinued fentanyl patch -IV dex and olanzapine NCCN guidelines recommend oral olanzipine 10mg for 3 days to -Continue trial po olanzapine 10mg qhs this evening x 3 doses with IM for breakthrough Marinol added prn for additional agent Palliative consult ordered, awaiting recommendations QTC 455 #Yeast infection #Abnormal UA -Prior ESBL history Cultures with yeast, given immunocompromised state, inclined to treat -Fluconazole 200mg daily #Uncontrolled DM Continue home Lantus insulin Sliding scale Glycemic consult #Leukopenia with severe neutropenia #Acute on Chronic normocytic anemia #Immunocompromised 2/2 chemotherapy no current signs of bleed, recent chemotherapy 04/26 Baselin 9-10, hgb 7.8 today, platelets stable, ANC 1.18K No signs of bleed CBC in am with diff Isolation precautions, neutropenia Heme/onc consult to determine needs for GCSF -Start Levaquin 500mg daily ppx #Metastatic breast cancer #Acute on chronic cancer pain, bony mets to ribs #immunocompromised 2/2 malignancy History of chemo and radiation There was plan for starting chemo tomorrow as per patient -Continue prn oxy #Hypomagnesia Will replace #Hypothyroidism On Synthyroid #History of moderate hypercalcemia History of hypercalcemia in end of January 2023 received calcitonin ,fluids and Zometa Stable this admission Nausea resolved. Tolerating regular diet Dispo with follow up established with heme/onc Discharge Exam Constitutional WD/WN, vitals as above Respiratory normal respiratory effort, lungs clear to auscultation Cardiovascular RRR, no murmur, no edema Updated Medication List Medication Instructions Recorded Confirmed Type denosumab 120 mg/1.7 mL (70 mg/mL) 120 mg subcut .Q 3months 01/01/22 05/01/23 History subcutaneous solution (Xgeva) blood-glucose sensor (Dexcom G6 12/17/22 04/19/23 History Sensor device) blood-glucose transmitter (Dexcom 12/17/22 04/19/23 History G6 Transmitter device) insulin aspart U-100 100 unit/mL 10 unit subcut AC 12/17/22 05/01/23 History (3 mL) subcutaneous pen (Novolog FlexPen U-100 Insulin aspart) insulin glargine 100 unit/mL (3 30 unit subcut BID 12/17/22 05/01/23 History mL) subcutaneous pen (Lantus Solostar U-100 Insulin) ondansetron HCl 8 mg tablet 8 mg PO Q12H PRN Nausea 12/17/22 05/01/23 History pen needle, diabetic 32 gauge x 12/17/22 04/19/23 History 5/32" (BD Ultra-Fine Aletha Pen Needle) fentanyl 75 mcg/hr transdermal 75 mcg transdermal Q3D #10 ea 04/22/23 05/01/23 Rx patch magnesium oxide 400 mg (241.3 mg 400 mg PO BID 30 days #60 tabs 04/22/23 Rx magnesium) tablet oxycodone 10 mg tablet 20 mg (2 x 10 mg) PO Q4 PRN 04/22/23 05/01/23 Rx breakthrough pain #14 tabs sennosides 8.6 mg-docusate sodium 1 tab PO QAM 30 days #30 tabs 04/22/23 05/01/23 Rx 50 mg tablet (Senokot-S) fluconazole 100 mg tablet 200 mg (2 x 100 mg) PO QAM #12 tabs 05/04/23 Rx (Diflucan) levofloxacin 500 mg tablet 500 mg PO DAILY 14 days #14 tabs 05/04/23 Rx olanzapine 10 mg tablet 10 mg PO HS #30 tabs 05/04/23 Rx Hospital Stay Data Consultations 05/01/23 20:57 ED Decision to Admit Stat 05/02/23 13:50 Consult Palliative Care Routine 05/03/23 10:08 Consult Oncology Routine Pending Results Patient Have Any Pending Studies at Discharge: No Discharge Instructions Given to Patient (Per Discharging Provider) You were admitted with nausea and vomiting. This could be related to ongoing chemotherapy, as well as multiple other ongoing issues. You were treated with IV steroid and a medication called olanzipine. This medication will continue as follows: -Olanzapine 10mg at bedtime. You are also noted to be neutropenic. This means a component of your immune system is very weak after chemotherapy. To prevent infections during this time, you will be sent with prophylactic antibiotics to help prevent infections at this time. -Levofloxacin 500mg daily -Fluconazole 200mg daily Please continue the above until told to discontinue by your Heme/onc provider based upon your labs. Total Time Total Time Spent Total Time Spent (In Minutes): 45
== END 2023-05-04 17:15 | disposition home or self-care (01) | DRG 392 ==
LOC: ED 14:31 → EDINP 21:34 → 2W 05-02 16:33

== ENCOUNTER 2023-05-23 12:04 | Inpatient (IN) ==
--- NOTE | 2023-05-23 12:36 | Emergency Department Note ---
History of Present Illness General Chief complaint: Vomiting Stated complaint: VOMITING Time Seen by Provider: 05/23/23 12:13 Source: patient, family (Sisters who is at the bedside), RN notes reviewed and old records reviewed (05/06/23-palliative care consult for cancer related pain) Mode of arrival: ambulatory Limitations: no limitations History of Present Illness Maximum Pain Intensity: 5 This patient 48-year-old female who has stage IV metastatic breast cancer, comes in after having intractable nausea and vomiting. She is followed here at the cancer center and is on a chemo therapy regimen she last had chemo the before last. She started feeling very sick on Wednesday and was hospitalized in [place] from Wednesday to Wednesday. She said that her blood work looked okay and they discharged her she felt okay for a day or 2 and started having intractable nausea vomiting again starting this Wednesday. She had this chemotherapy once before and similar effects. No blood or coffee grounds in her emesis no actual abdominal pain but no fever. She has felt a little short of breath at times. No cough. No chest pain. She says her throat feels burning from vomiting. She tried Zofran at home without much relief she says IV Phenergan typically works best for her. No fall or trauma. Home Medications Medication Instructions Recorded Confirmed Type denosumab 120 mg/1.7 mL (70 mg/mL) 120 mg subcut .Q 3months 01/01/22 05/01/23 History subcutaneous solution (Xgeva) blood-glucose sensor (Dexcom G6 12/17/22 04/19/23 History Sensor device) blood-glucose transmitter (Dexcom 12/17/22 04/19/23 History G6 Transmitter device) insulin aspart U-100 100 unit/mL 10 unit subcut AC 12/17/22 05/01/23 History (3 mL) subcutaneous pen (Novolog FlexPen U-100 Insulin aspart) insulin glargine 100 unit/mL (3 30 unit subcut BID 12/17/22 05/01/23 History mL) subcutaneous pen (Lantus Solostar U-100 Insulin) ondansetron HCl 8 mg tablet 8 mg PO Q12H PRN Nausea 12/17/22 05/01/23 History pen needle, diabetic 32 gauge x 12/17/22 04/19/23 History 5/32" (BD Ultra-Fine Aletha Pen Needle) fluconazole 100 mg tablet 200 mg (2 x 100 mg) PO QAM #12 tabs 05/04/23 Rx (Diflucan) olanzapine 10 mg tablet 10 mg PO HS #30 tabs 05/04/23 Rx dexamethasone 4 mg tablet 4 mg PO BID #60 tabs 05/06/23 05/06/23 Rx oxycodone 20 mg tablet 20 mg PO Q4H very severe cancer 05/06/23 05/06/23 Rx pain 1 month #180 tabs Allergies Allergy/AdvReac Type Severity Reaction Status Date / Time No Known Allergies Allergy Verified 04/19/23 17:28 Past Med/Surg History Medical History Depression Refractory nausea and vomiting Palliative care by specialist Advanced care planning/counseling discussion Breast cancer metastasized to bone Weakness generalized Cancer-related breakthrough pain Cancer related pain History of COVID-19 12/2020 + 12/2021 > residual taste dysfunction and feeling of need to clear throat Bilateral breast cancer Arthritis Liver spots "Mets from cancer" Depression with anxiety Peripheral neuropathy Heart palpitations R/t anxiety per patient Type II diabetes mellitus History of small bowel obstruction Hx bowel obstruction Hypothyroidism No current meds Breast cancer (11/12/15) Stage 4 (+ mets) Surgical History History of tubal ligation Port-A-Cath in place (04/30/22) Insertion Access Port left subclavian with Fluoroscopy(Left) - Chad Banuelos DO History of surgery Left Excisional Debridement of Buttock Wound Nausea and vomiting after administration of anesthetic agent "EXTREME" History of vascular access device PORT INSERTION/REMOVAL History of tooth extraction History of endometrial ablation History of bowel resection D/T BOWEL OBSTRUCTION History of lung surgery Left thoracoscopy with wedge resection left lower lobe Dr. Damico 03/29/2018 History of dilatation and curettage H/O hernia repair Hx of section x3 S/P lumpectomy, left breast LEFT ARM LIMB RESTRICTION Family History Mother , 77yo Diabetes Heart disease Aortic valve replacement Mitral valve calcifications UTI (urinary tract infection) Father , 62yo Diabetes Myocardial infarction Hypertension Stroke Brother Diabetes Myocardial infarction Cardiac stents Pacemaker Hypertension Sister No problems noted. Daughter No problems noted. Son No problems noted. Son No problems noted. 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 How many Children do You have: 3 Feels Safe at Home: Yes Diet: regular caffeine: No during the past year weight has: remained stable Assistive Devices: None Review of Systems A total of 10 systems reviewed and were otherwise negative Physical Exam Vital Signs Vital Signs - 24 hr 05/23/23 12:05 05/23/23 12:57 05/23/23 13:00 Temperature 36.5 C 36.8 C Temperature Source Temporal Artery Scan Oral Pulse Rate 111 H Pulse Rate [Left Finger] 87 Respiratory Rate 19 23 Respiratory Effort / Characteristics Non-Labored Spontaneous Respiratory Depth Normal Respiratory Pattern Regular Blood Pressure 135/86 Blood Pressure [Right Arm] 119/73 Blood Pressure Mean 102 Blood Pressure Mean [Right Arm] 88 Blood Pressure Position [Right Arm] Semi-fowlers Pulse Oximetry 99 100 100 Oxygen Delivery Method Room Air Room Air Sepsis Recent Fever Within 48 Hours No Sepsis New/Unexplained Change in Mental Status No Sepsis Action Taken by Nursing No Action Required 05/23/23 13:06 Temperature Temperature Source Pulse Rate 88 Pulse Rate [Left Finger] Respiratory Rate Respiratory Effort / Characteristics Respiratory Depth Respiratory Pattern Blood Pressure Blood Pressure [Right Arm] Blood Pressure Mean Blood Pressure Mean [Right Arm] Blood Pressure Position [Right Arm] Pulse Oximetry Oxygen Delivery Method Sepsis Recent Fever Within 48 Hours Sepsis New/Unexplained Change in Mental Status Sepsis Action Taken by Nursing General: Well developed well nourished middle-age female who appears in no acute distress, breathing comfortably on room air. Normal speech HEENT: Normal cephalic atraumatic. Pupils are equal round and reactive to light. Extraocular movements are intact. Oropharynx is pink with moist mucous membranes. No swelling of the mouth lips or tongue. Neck: Supple with a midline trachea. No meningeal signs or stiffness, no JVD or bruits. No Stridor. Chest: Clear to auscultation bilaterally. No wheezes or rhonchi. No increased work of breathing. A port in left chest. Heart: Regular rate and rhythm without murmurs or gallops. Abdomen: Soft nontender, nondistended without rebound guarding or rigidity. Extremities: No cyanosis clubbing or edema. No calf tenderness or assymetry Spine/Back. Non tender to palpation. No CVA tenderness Skin: Good turgor without rashes. Neurologic exam: Cranial nerves two through 12 are intact. Motor and sensation are intact and symmetrical throughout. Course Administered Medications Hydromorphone HCl (Hydromorphone Inj 2 Mg/Ml Syr/Vial) 0.5 mg IV Q3H PRN PRN Reason: Pain Stop: 06/06/23 18:08 Last Admin: 05/23/23 18:43 Dose: 0.5 mg Documented By: DONNA Lactated Ringer's (Lr) 1,000 mls @ 125 mls/hr IV .Q8H JESSE Stop: 06/22/23 18:08 Last Admin: 05/23/23 18:19 Dose: 125 mls/hr Documented By: DONNA Discontinued Medications Sodium Chloride (Nss) 1,000 mls @ 999 mls/hr IV .Q1H1M ONE Stop: 05/23/23 13:25 Last Infusion: 05/23/23 14:21 Dose: Infused Documented By: Admin: 05/23/23 13:14 Dose: 999 mls/hr Documented By: MICHI Promethazine HCl (Phenergan) 12.5 mg in 50.5 mls @ 202 mls/hr IV NOW STA Stop: 05/23/23 12:40 Last Infusion: 05/23/23 13:36 Dose: Infused Documented By: Admin: 05/23/23 13:15 Dose: 202 mls/hr Documented By: MICHI Medical Decision Making Differential Diagnosis Dehydration, complication related to chemotherapy, cancer related complication, diabetic complication, electrolyte or metabolic abnormality, infection, COVID Medical Records Attestation: I reviewed the patient's medical records. Home Medications Current Medication List: was personally reviewed by me Laboratory Data Attestation: I reviewed the patient's lab results. 05/23/23 12:40 05/23/23 12:40 Lab Results 05/23/23 05/23/23 Range/Units 12:40 12:47 WBC 12.30 H (4.8-10.8) K/ul RBC 3.27 L (4.20-5.40) M/uL Hgb 9.6 L (12.0-16.0) g/dl Hct 28.1 L (37.0-47.0) % MCV 85.9 (80.0-100.0) fL MCH 29.4 (25.0-34.0) pg MCHC 34.2 (32.0-36.0) g/dL RDW Std Deviation 52.2 H (36.4-46.3) fL RDW Coeff of Joshua 17.2 H (11.5-14.5) % Plt Count 220 (130-400) K/uL MPV 9.3 L (9.4-12.4) fL Absolute Nucleated RBC 0.16 H (0.00-0.12) K/uL Nucleated RBC % (auto) 1.3 % Neutrophils % (Manual) 71 % Lymphocytes % (Manual) 13 % Monocytes % (Manual) 3 % Metamyelocytes % (Man) 10 % Myelocytes % (Man) 3 % Neutrophils # (Manual) 8.73 H (1.40-6.50) K/uL Total Absolute Neuts 8.73 H (1.4-6.5) K/uL Lymphocytes # (Manual) 1.60 (1.2-3.4) K/uL Total Abs Lymphocytes 1.60 (1.2-3.4) K/uL Monocytes # (Manual) 0.37 (0.11-0.59) K/uL Metamyelocytes # (Man) 1.23 H (0-0) K/uL Myelocytes # (Manual) 0.37 H (0-0) K/uL Toxic Granulation 3+ Polychromasia 1+ Tear Drop Cells 1+ Sodium 133 L (136-145) mmol/L Potassium 3.7 (3.5-5.1) mmol/L Chloride 96 L (98-107) mmol/L Carbon Dioxide 23 (21-32) mmol/L Anion Gap 14 H (3-11) BUN 14 (6-23) mg/dl Creatinine 0.79 (0.6-1.2) mg/dl Est Cr Clr Drug Dosing 109.0 ml/min Est GFR ( Amer) 104.0 ml/min Est GFR (Non-Af Amer) 89.8 ml/min BUN/Creatinine Ratio 17.7 (10-20) Glucose 463 H* (70-99(Fasting)) mg/dl Calcium 8.7 (8.6-10.3) mg/dl Total Bilirubin 1.0 (0.2-1.0) mg/dl AST 19 (13-39) U/L ALT 17 (7-52) U/L Alkaline Phosphatase 236 H (34-104) U/L Troponin I High Sens 9.4 (0-14) pg/ml Total Protein 7.0 (6.0-8.3) gm/dl Albumin 3.7 (3.4-5.0) gm/dl Globulin 3.3 (2.5-4.0) gm/dl Albumin/Globulin Ratio 1.1 (0.9-2) Lipase 19 (11-82) U/L Adenovirus (PCR) Not Detected (NotDetected) B. pertussis DNA (PCR) Not Detected (NotDetected) B.parapertussis DNA PCR Not Detected (NotDetected) C. pneumoniae DNA (PCR) Not Detected (NotDetected) Coronavirus OC43 (PCR) Not Detected (NotDetected) Coronavirus HKU1 (PCR) Not Detected (NotDetected) Coronavirus 229E (PCR) Not Detected (NotDetected) SARS-CoV-2 (PCR) Not Detected (NotDetected) Coronavirus NL63 (PCR) Not Detected (NotDetected) Human Metapneumovir PCR Not Detected (NotDetected) Influenza Type A (PCR) Not Detected (NotDetected) Influenza Type B (PCR) Not Detected (NotDetected) M. pneumoniae (PCR) Not Detected (NotDetected) Parainfluenza 1 (PCR) Not Detected (NotDetected) Parainfluenza 2 (PCR) Not Detected (NotDetected) Parainfluenza 3 (PCR) Not Detected (NotDetected) Parainfluenza 4 (PCR) Not Detected (NotDetected) RSV (PCR) Not Detected (NotDetected) Entero/Rhino (PCR) Not Detected (NotDetected) Imaging Data Attestation: I personally reviewed and interpreted this imaging study as follows: My Impression: Chest x-rayno acute infiltrate, failure, pneumothorax seen. A port in left chest. Radiologist's Impression: Chest X-Ray 05/23/23 12:25 XR chest 1V portable CLINICAL HISTORY: sob TECHNIQUE: Single frontal radiograph of the chest was obtained. Comparison: Comparison is made to chest radiograph 05/01/2023 FINDINGS: No lines and tubes are seen. The cardiomediastinal silhouette is normal. Right upper lung airspace opacity is seen. There is density in the right lateral lung as well. No evidence of pleural effusion or pneumothorax. IMPRESSION: Right upper and lateral airspace opacities are seen. These are nonspecific however may correspond to worsening of nodular disease seen on prior exam. ACT 112: Negative or not required by law. Electronically signed by: Mariano Guerrier M.D. 05/23/2023 12:50 PM ECG Data Attestation: I personally reviewed and interpreted this ECG as follows: Indication: + nausea and + vomiting Rate (beats per minute): 87 Rhythm: + normal sinus ECG Intervals/blocks: + Normal QRS, + Normal QT and + Normal GA ECG [place]: + Normal ECG ST segments: + Normal ST segments ECG Findings: no PACs or no PVCs Comparison ECG Date: from (05/01/23) Change: no significant change MDM Narrative This patient comes in as described above. She was placed in room A2 when walking she is holding emesis bag she has been having trouble with fluids all weekend and this seems to be an ongoing issue when she gets chemo. We did access her port. she was given 1 L IV normal saline bolus she was given Phenergan 12.5 mg IV. Chest x-ray , EKG,multiple blood testing was obtained. she was reassessed frequently. Chest x-ray shows what is likely increased density where her cancer is. Clinically, I do not think she likely has pneumonia. EKG shows no ischemic change or ectopy. She has no significant electrolyte or metabolic abnormalities. She does not feel she is up to going home she clinically is dehydrated I think needs to be admitted/observed for further hydration and treatment of her vomiting and dehydration. [facility] ER for these measures Continuous library monitor: An order was placed in the EMR for continuous library monitor: Upon my evaluation she was noted to be in normal sinus rhythm with a rate of 90. Impression & Plan Dehydration, Metastatic breast cancer, Vomiting, Lab test negative for COVID-19 virus Discharge Plan Visit Data Chief Complaint: Vomiting Stated Complaint: VOMITING ED Provider: Richard Brooks Discharge Problem: Dehydration, Metastatic breast cancer, Vomiting, Lab test negative for COVID-19 virus Patient Disposition: Admitted As Inpatient Discharge Instructions Interventions: ED Discharge Assessment Last Done: 05/23/23 17:17 Discharge Problem: Vomiting Qualifiers: Vomiting type: unspecified Nausea presence: with nausea Qualified Code(s): R 11.2 - Nausea with vomiting, unspecified
--- NOTE | 2023-05-23 12:51 | XRay Report ---
XR chest 1V portable CLINICAL HISTORY: sob TECHNIQUE: Single frontal radiograph of the chest was obtained. Comparison: Comparison is made to chest radiograph 05/01/2023 FINDINGS: No lines and tubes are seen. The cardiomediastinal silhouette is normal. Right upper lung airspace op acity is seen. There is density in the right lateral lung as well. No evidence of pleural effusion or pneumothorax. IMPRESSION: Right upper and lateral airspace opacities are seen. These are nonspecific however may correspond to worsening of nodular disease seen on prior exam. ACT 112: Negative or not required by law. Electronically signed by: Mariano Guerrier M.D. 05/23/2023 12:50 PM
[2023-05-23] MEDS: SODIUM CHLORIDE 0.9% 1,000 ML IV ONE (13:14)
[2023-05-23] MEDS: PROMETHAZINE 12.5 MG/50.5 ML BAG IV STA (13:15)
[2023-05-23 13:19] LABS: Hematocrit (blood only) 28.1 % (37.0-47.0); Hemoglobin 9.6 g/dl (12.0-16.0); Mean Corpuscular Hemoglobin 29.4 pg (25.0-34.0); Mean Corpuscular Hgb Conc 34.2 g/dL (32.0-36.0); Mean Corpuscular Volume 85.9 fL (80.0-100.0); Mean Platelet Volume 9.3 fL (9.4-12.4); Nucleated RBC # (auto) 0.16 K/uL (0.00-0.12); Nucleated RBC % (auto) 1.3 %; Platelet Count 220 K/uL (130-400); RDW Coefficient of Variation 17.2 % (11.5-14.5); RDW Standard Deviation 52.2 fL (36.4-46.3); Red Blood Count 3.27 M/uL (4.20-5.40)
[2023-05-23 13:26] LABS: Albumin Globulin Ratio 1.1 (0.9-2); Albumin Level 3.7 gm/dl (3.4-5.0); BUN Creatinine Ratio 17.7 (10-20); Calcium 8.7 mg/dl (8.6-10.3); Est GFR (Non-African American) 89.8 ml/min; Globulin 3.3 gm/dl (2.5-4.0); Potassium 3.7 mmol/L (3.5-5.1); Troponin I High Sensitivity 9.4 pg/ml (0-14)
[2023-05-23 13:39] LABS: ANC (manual) 8.73 K/uL (1.4-6.5); Lymphocytes % (manual) 13 %; Metamyelocytes # (manual) 1.23 K/uL (0-0); Metamyelocytes % (manual) 10 %; Monocytes # (manual) 0.37 K/uL (0.11-0.59); Monocytes % (manual) 3 %; Myelocytes # (manual) 0.37 K/uL (0-0); Myelocytes % (manual) 3 %; Neutrophils # (manual) 8.73 K/uL (1.40-6.50); Neutrophils % (manual) 71 %; Polychromasia 1+; Tear Drop Cells 1+; Toxic Granulation 3+
[2023-05-23 14:02] LABS: Adenovirus PCR Not Detected (NotDetected); Bordetella parapertussis PCR Not Detected (NotDetected); Bordetella pertussis PCR Not Detected (NotDetected); Chlamydia pneumoniae PCR Not Detected (NotDetected); Coronavirus 229E PCR Not Detected (NotDetected); Coronavirus CoV-2 (COVID19)PCR Not Detected (NotDetected); Coronavirus HKU1 PCR Not Detected (NotDetected); Coronavirus NL63 PCR Not Detected (NotDetected); Coronavirus OC43PCR Not Detected (NotDetected); Human Metapneumovirus PCR Not Detected (NotDetected); Influenza A PCR Not Detected (NotDetected); Influenza B PCR Not Detected (NotDetected); Mycoplasma pneumoniae PCR Not Detected (NotDetected); Parainfluenza Virus 1 PCR Not Detected (NotDetected); Parainfluenza Virus 2 PCR Not Detected (NotDetected); Parainfluenza Virus 3 PCR Not Detected (NotDetected); Parainfluenza Virus 4 PCR Not Detected (NotDetected); Respiratory Syncytial VirusPCR Not Detected (NotDetected); Rhinovirus/Enterovirus PCR Not Detected (NotDetected)
--- NOTE | 2023-05-23 14:26 | History & Physical Report ---
Date of Service May 23, 2023 Assessment & Plan (1) Intractable nausea and vomiting: (2) Cancer related pain: (3) Metastatic breast cancer: (4) Type II diabetes mellitus: (5) Hyperglycemia: (6) Hyponatremia: Plan 48-year-old female with history of metastatic breast cancer under chemotherapy, diabetes who presented to ED with intractable nausea and vomiting secondary chemotherapy. Intractable nausea and vomiting secondary to chemotherapy-similar admission 04/30- 05/03. Zofran not effective per patient. Promethazine in the ED was helpful. Will continue IVF, promethazine every 6 hours, olanzapine at bedtime, Marinol as needed. Will avoid steroids given severe hyperglycemia and diabetes. QTc 450s. Consider palliative consult if symptoms not controlled. Liquid diet-advance as tolerated. Cancer related pain-on fentanyl patch every 72 hours, oxycodone 10 Mg every 4 hours at home. Will continue fentanyl patch, due for change today. Will have IV Dilaudid every 3 hours prn for now. Can resume home oxycodone once nausea vomiting adequately controlled and able to take p.o. consistently Diabetes type 2 with hyperglycemia-blood sugars elevated in setting of current stressors. She also did not take her Humalog this morning. Continue Lantus 30 units twice daily, Humalog 3 times daily AC. Adjust as indicated. Leukocytosis-mild, likely reactive. Recheck in AM. Anemia-likely due to chemo, at baseline Hyponatremia-mild, due to nausea vomiting. Getting IV. Recheck in AM. Abnormal CXR- reviewed. Respiratory pathogen panel negative. Currently no respiratory symptoms. OP follow up. Stage IV metastatic carcinoma- on chemo as OP, last dose 05/12. DVT prophylaxis-subcu Lovenox Full code Disposition-admit to [facility]. Updated sister at bedside. Time spent-70 minutes. History of Present Illness Chief Complaint: intractable N/V Primary Care Provider: CONSTANTINO Reid 48 year old female with history of metastatic breast carcinoma, diabetes, back pain on opiates, history of hypercalcemia who presented to the ED with intractable nausea and vomiting secondary to chemotherapy. Patient is under chemotherapy for breast carcinoma. This is her second chemo. She had similar episode after prior chemo and had to be admitted here from 04/30-05/03. This time, she had her chemo on 05/12 and felt sick with nausea vomiting the next day. She was also admitted at [facility] the subsequent Wednesday through Wednesday, felt better and was discharged, however she felt starting sick with nausea vomiting couple days after and came here for the same. States that she has been unable to hold things down. She has been just eating liquid but vomits after about 15 minutes. Also has intractable back pain and is on fentanyl patch as well as well as oxycodone 10 mg every 4 hours (it was increased to 20 but she never received it due to pharmacy issues). Her olanzapine was done about 10 days ago. Her dexamethasone has been done as well. She is however taking her Lantus 30 twice daily and took this morning as well. Also takes Humalog with meals, however she did not take this morning as she came here. She denies any fever, chills, chest pain, shortness of breath, abdominal pain, diarrhea, lightheadedness, dizziness. States normal urine output. She states that she is due for fentanyl patch change today and is complaining of pain during my encounter. She received prochlorperazine which helped her nausea and vomiting. States her home ondansetron does not help her nausea vomiting. Allergies Allergy/AdvReac Type Severity Reaction Status Date / Time No Known Allergies Allergy Verified 04/19/23 17:28 Home Medications Medication Instructions Recorded Confirmed Type denosumab 120 mg/1.7 mL (70 mg/mL) 120 mg subcut .Q 3months 01/01/22 05/01/23 Hi story subcutaneous solution (Xgeva) blood-glucose sensor (Dexcom G6 12/17/22 04/19/23 History Sensor device) blood-glucose transmitter (Dexcom 12/17/22 04/19/23 History G6 Transmitter device) insulin aspart U-100 100 unit/mL 10 unit subcut AC 12/17/22 05/01/23 History (3 mL) subcutaneous pen (Novolog FlexPen U-100 Insulin aspart) insulin glargine 100 unit/mL (3 30 unit subcut BID 12/17/22 05/01/23 History mL) subcutaneous pen (Lantus Solostar U-100 Insulin) ondansetron HCl 8 mg tablet 8 mg PO Q12H PRN Nausea 12/17/22 05/01/23 History pen needle, diabetic 32 gauge x 12/17/22 04/19/23 History 5/32" (BD Ultra-Fine Aletha Pen Needle) fluconazole 100 mg tablet 200 mg (2 x 100 mg) PO QAM #12 tabs 05/04/23 Rx (Diflucan) olanzapine 10 mg tablet 10 mg PO HS #30 tabs 05/04/23 Rx dexamethasone 4 mg tablet 4 mg PO BID #60 tabs 05/06/23 05/06/23 Rx oxycodone 20 mg tablet 20 mg PO Q4H very severe cancer 05/06/23 05/06/23 Rx pain 1 month #180 tabs Past Med/Surg History Medical History Depression Refractory nausea and vomiting Palliative care by specialist Advanced care planning/counseling discussion Breast cancer metastasized to bone Weakness generalized Cancer-related breakthrough pain Cancer related pain History of COVID-19 12/2020 + 12/2021 > residual taste dysfunction and feeling of need to clear throat Bilateral breast cancer Arthritis Liver spots "Mets from cancer" Depression with anxiety Peripheral neuropathy Heart palpitations R/t anxiety per patient Type II diabetes mellitus History of small bowel obstruction Hx bowel obstruction Hypothyroidism No current meds Breast cancer (11/12/15) Stage 4 (+ mets) Surgical History History of tubal ligation Port-A-Cath in place (04/30/22) Insertion Access Port left subclavian with Fluoroscopy(Left) - Chad Banuelos, DO History of surgery Left Excisional Debridement of Buttock Wound Nausea and vomiting after administration of anesthetic agent "EXTREME" History of vascular access device PORT INSERTION/REMOVAL History of tooth extraction History of endometrial ablation History of bowel resection D/T BOWEL OBSTRUCTION History of lung surgery Left thoracoscopy with wedge resection left lower lobe Dr. Damico 03/29/2018 History of dilatation and curettage H/O hernia repair Hx of section x3 S/P lumpectomy, left breast LEFT ARM LIMB RESTRICTION Family History Mother , 77yo Diabetes Heart disease Aortic valve replacement Mitral valve calcifications UTI (urinary tract infection) Father , 62yo Diabetes Myocardial infarction Hypertension Stroke Brother Diabetes Myocardial infarction Cardiac stents Pacemaker Hypertension Sister No problems noted. Daughter No problems noted. Son No problems noted. Son No problems noted. 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 How many Children do You have: 3 Feels Safe at Home: Yes Diet: regular caffeine: No during the past year weight has: remained stable Assistive Devices: None Review of Systems Review of Systems: All systems reviewed & are unremarkable except as noted in Subjective Physical Exam Physical Exam: General: Lying in bed, in some distress due to pain HEENT: EOMI, [place], MMM Chest: Clear breath sounds bilaterally, no wheezes or crackles, left sided port-a-cath CVS: Regular rate and rhythm, normal heart sounds, no murmur Abdomen: Soft, non tender, not distended, normal bowel sounds Neuro: Awake, alert, oriented, conversing well, non focal Extremities: No cyanosis, clubbing or edema Results & Data Results & Data Vital Signs (Past 12 Hours) Vital Signs Temp Pulse Pulse Resp BP BP Pulse Ox 05/23/23 14:24 91 H 23 138/102 H 100 05/23/23 13:06 88 05/23/23 13:00 36.8 C 87 23 119/73 100 05/23/23 12:57 100 05/23/23 12:05 36.5 C 111 H 19 135/86 99 O2 Del Method 05/23/23 14:24 Room Air 05/23/23 13:06 05/23/23 13:00 Room Air 05/23/23 12:57 Room Air 05/23/23 12:05 Laboratory Results Short CBC 05/23/23 Range/Units 12:40 WBC 12.30 H (4.8-10.8) K/ul Hgb 9.6 L (12.0-16.0) g/dl Hct 28.1 L (37.0-47.0) % Plt Count 220 (130-400) K/uL BMP 05/23/23 12:40 Sodium 133 L Potassium 3.7 Chloride 96 L Carbon Dioxide 23 BUN 14 Creatinine 0.79 Glucose 463 H* Calcium 8.7 Liver Function 05/23/23 Range/Units 12:40 Total Bilirubin 1.0 (0.2-1.0) mg/dl AST 19 (13-39) U/L ALT 17 (7-52) U/L Alkaline Phosphatase 236 H (34-104) U/L Albumin 3.7 (3.4-5.0) gm/dl Diagnostic Findings Chest X-Ray 05/23/23 12:25 XR chest 1V portable CLINICAL HISTORY: sob TECHNIQUE: Single frontal radiograph of the chest was obtained. Comparison: Comparison is made to chest radiograph 05/01/2023 FINDINGS: No lines and tubes are seen. The cardiomediastinal silhouette is normal. Right upper lung airspace opacity is seen. There is density in the right lateral lung as well. No evidence of pleural effusion or pneumothorax. IMPRESSION: Right upper and lateral airspace opacities are seen. These are nonspecific however may correspond to worsening of nodular disease seen on prior exam. ACT 112: Negative or not required by law. Electronically signed by: Mariano Guerrier M.D. 05/23/2023 12:50 PM Code Status & VTE Plan VTE Prophylaxis Plan VTE Prophylaxis will be ordered: Yes
--- NOTE | 2023-05-23 15:02 | Electrocardiogram Report ---
Test Reason : Blood Pressure : / mmHG Vent. Rate : 087 BPM Atrial Rate : 087 BPM P-R Int : 126 ms QRS Dur : 082 ms QT Int : 380 ms P-R-T Axes : 011 -23 022 degrees QTc Int : 457 ms Normal sinus rhythm Poor R wave progression, consider anterior UT vs. lead placement vs. LVH Abnormal ECG When compared with ECG of 01-MAY-2023 15:33, No significant change was found Confirmed by Zack Sierra ([id number]) on 05/23/2023 3:01:28 PM Referred By: REFERRED SELF Confirmed By:Zack Sierra
[2023-05-23] MEDS ORDERED: CARBOHYDRATES FOR HYPOGLYCEMIA PO PRN (18:09)
[2023-05-23] MEDS ORDERED: PROMETHAZINE HCL 12.5 MG in SODIUM CHLORIDE 0.9% 50 ML IV PRN (18:09)
[2023-05-23] MEDS ORDERED: GLUCOSE 10 TAB/TUBE PO PRN (18:09)
[2023-05-23] MEDS ORDERED: GLUCOSE 40% GEL 15 GM TUBE PO PRN (18:09)
[2023-05-23] MEDS ORDERED: droNABinol 2.5 MG CAP PO PRN (18:09)
[2023-05-23] MEDS ORDERED: GLUCAGON FOR INJ 1 MG VIAL SQ PRN (18:09)
[2023-05-23] MEDS ORDERED: DEXTROSE 50% 50 ML SYRINGE IV PRN (18:09)
[2023-05-23] MEDS: LACTATED RINGER'S 1,000 ML IV SCH (18:19)
[2023-05-23] MEDS: HYDROmorphone INJ 2 MG/ML SYR/VIAL IV PRN (18:43)
[2023-05-23] MEDS: INSULIN ASPART PER UNIT CHARGE SC SCH (19:10)
[2023-05-23] MEDS: INSULIN ASPART PER UNIT CHARGE SC STA (19:10)
[2023-05-23] MEDS: ENOXAPARIN INJ 40 MG/0.4 ML SYR SQ SCH (21:13)
[2023-05-23] MEDS: OLANZapine 10 MG TAB PO SCH (21:13)
[2023-05-23] MEDS: fentaNYL 75 MCG/HR TDSY TD SCH (21:14)
[2023-05-23] MEDS: LANTUS PER UNIT CHARGE SC SCH (21:15)
[2023-05-23] MEDS: CHECK fentaNYL PATCH PLACEMENT SCH (21:15)
[2023-05-24 06:02] LABS: Hematocrit (blood only) 23.9 % (37.0-47.0); Hemoglobin 8.2 g/dl (12.0-16.0); Mean Corpuscular Hgb Conc 34.3 g/dL (32.0-36.0); Mean Corpuscular Volume 87.5 fL (80.0-100.0); Nucleated RBC # (auto) 0.13 K/uL (0.00-0.12); Nucleated RBC % (auto) 1.4 %; Platelet Count 166 K/uL (130-400); RDW Coefficient of Variation 17.9 % (11.5-14.5); RDW Standard Deviation 56.2 fL (36.4-46.3); Red Blood Count 2.73 M/uL (4.20-5.40); White Blood Count 9.16 K/ul (4.8-10.8)
[2023-05-24 06:20] LABS: Albumin Globulin Ratio 1.1 (0.9-2); Albumin Level 3.2 gm/dl (3.4-5.0); BUN Creatinine Ratio 16.2 (10-20); Bilirubin,Total 0.7 mg/dl (0.2-1.0); Calcium 8.2 mg/dl (8.6-10.3); Creatinine Clr Calc Pharmacy 116.3 ml/min; Est GFR (African American) 112.6 ml/min; Est GFR (Non-African American) 97.2 ml/min; Globulin 2.8 gm/dl (2.5-4.0); Magnesium 1.6 mg/dl (1.7-2.4); Phosphorus 3.6 mg/dl (2.5-4.9); Potassium 3.1 mmol/L (3.5-5.1)
[2023-05-24] MEDS: MAGNESIUM SULFATE / D5W 1 GM/100 ML BAG IV ONE (08:56)
[2023-05-24] MEDS: POTASSIUM CHLORIDE CRTAB 20 MEQ TABCR PO ONE (08:56)
[2023-05-24] MEDS: POTASSIUM CHLORIDE / WTR 10 MEQ/100 ML PLCT IV SCH (11:47)
--- NOTE | 2023-05-24 15:38 | Hospitalist Progress Note ---
Date of Service May 24, 2023 Assessment & Plan (1) Intractable nausea and vomiting: (2) Cancer related pain: (3) Metastatic breast cancer: (4) Type II diabetes mellitus: (5) Hyperglycemia: (6) Hyponatremia: Plan 48-year-old female with history of metastatic breast cancer under chemotherapy, diabetes who presented to ED with intractable nausea and vomiting secondary chemotherapy. Chemotherapy Induced Intractable nausea and vomiting Hypokalemia, Hyponatremia secondary to GI losses Continue antiemetics as needed On olanzapine at bedtime Marinol as needed Will consider abdominal imaging, stool studies if needed Continue IV fluids Advance diet as tolerated Cancer related pain on fentanyl patch every 72 hours, oxycodone PRN DM II HbA1C 9.3 Continue insulin per protocol Monitor BGs Leukocytosis Likely reactive No obvious source of infection Monitor Anemia of chronic disease Monitor CBC Abnormal CXR- reviewed. Respiratory pathogen panel negative Currently no respiratory symptoms OP follow up. Stage IV metastatic carcinoma on chemo as OP, last dose 05/12. Needs follow-up with oncology on discharge Obesity BMI 37 DVT Px: Lovenox SQ Code Status Full code Admission and Anticipated Discharge Date Admission Date: May 23, 2023 Subjective Patient is seen and examined at bedside Nausea, vomiting resolved Reports last bowel movement is yesterday Denies any chest pain, dyspnea, dizziness, abdominal pain Offers no other complaints Review of Systems Review of Systems: All systems reviewed & are unremarkable except as noted in Subjective Physical Exam Physical Exam: Physical Exam: Vitals signs as noted above General Appearance:Obese, no apparent distress Head: normocephalic, Atraumatic Eyes: normal inspection, EOMI Neck: supple, Trachea midline Respiratory/Chest: Decreased breath sounds, CTA, No accessory muscle use Cardiovascular: S1, S2, No murmur Abdomen/GI:Soft, Non tender, Bowel sounds present Extremities/Musculoskeletal:normal inspection, no edema Neurologic/Psych:AAOX3, grossly no focal neurological deficits Skin: normal color, warm Results & Data Results & Data Vital Signs (Past 12 Hours) Vital Signs Temp Pulse Pulse Resp BP Pulse Ox O2 Del Method 05/24/23 15:32 36.5 C 95 H 18 130/83 97 Room Air 05/24/23 10:47 36.6 C 87 18 118/77 94 Room Air 05/24/23 10:22 Room Air 05/24/23 08:00 89 05/24/23 07:23 36.6 C 87 18 118/77 94 Room Air Laboratory Results Short CBC 05/24/23 Range/Units 05:30 WBC 9.16 (4.8-10.8) K/ul Hgb 8.2 L (12.0-16.0) g/dl Hct 23.9 L (37.0-47.0) % Plt Count 166 (130-400) K/uL BMP 05/24/23 05:30 Sodium 138 Potassium 3.1 L Chloride 102 Carbon Dioxide 28 BUN 12 Creatinine 0.74 Glucose 210 H Calcium 8.2 L Liver Function 05/24/23 Range/Units 05:30 Total Bilirubin 0.7 (0.2-1.0) mg/dl AST 17 (13-39) U/L ALT 13 (7-52) U/L Alkaline Phosphatase 184 H (34-104) U/L Albumin 3.2 L (3.4-5.0) gm/dl
[2023-05-24] MEDS: MAGNESIUM CHLORIDE W/CALCIUM 64MG DELAYED REL TAB PO SCH (21:08)
[2023-05-25 06:20] LABS: Hematocrit (blood only) 22.3 % (37.0-47.0); Hemoglobin 7.6 g/dl (12.0-16.0); Mean Corpuscular Hemoglobin 29.6 pg (25.0-34.0); Mean Corpuscular Hgb Conc 34.1 g/dL (32.0-36.0); Mean Corpuscular Volume 86.8 fL (80.0-100.0); Mean Platelet Volume 9.5 fL (9.4-12.4); Nucleated RBC # (auto) 0.07 K/uL (0.00-0.12); Nucleated RBC % (auto) 0.8 %; Platelet Count 153 K/uL (130-400); RDW Coefficient of Variation 17.5 % (11.5-14.5); RDW Standard Deviation 53.5 fL (36.4-46.3); Red Blood Count 2.57 M/uL (4.20-5.40); White Blood Count 8.31 K/ul (4.8-10.8)
[2023-05-25 06:34] LABS: BUN Creatinine Ratio 16.2 (10-20); Calcium 8.6 mg/dl (8.6-10.3); Creatinine Clr Calc Pharmacy 117.2 ml/min; Est GFR (African American) 112.6 ml/min; Est GFR (Non-African American) 97.2 ml/min; Magnesium 1.5 mg/dl (1.7-2.4); Potassium 3.7 mmol/L (3.5-5.1)
--- NOTE | 2023-05-25 07:46 | Hospitalist Progress Note ---
Date of Service May 25, 2023 Assessment & Plan (1) Intractable nausea and vomiting: (2) Cancer related pain: (3) Metastatic breast cancer: (4) Type II diabetes mellitus: (5) Hyperglycemia: (6) Hyponatremia: Plan 48-year-old female with history of metastatic breast cancer under chemotherapy, diabetes who presented to ED with intractable nausea and vomiting secondary chemotherapy. Toxic gastroenteritis due to Chemotherapy Presented with Intractable nausea and vomiting Hypokalemia, Hyponatremia secondary to GI losses Continue antiemetics as needed On olanzapine at bedtime Marinol as needed Will consider abdominal imaging, stool studies if needed Continue IV fluids Symptoms resolved Tolerating regular diet Possible UTI Urine culture pending Empirically started on Rocephin Cancer related pain on fentanyl patch every 72 hours, oxycodone PRN DM II HbA1C 9.3 Continue insulin per protocol Monitor BGs Leukocytosis Likely reactive No obvious source of infection Monitor Anemia of chronic disease Monitor CBC Abnormal CXR- reviewed. Respiratory pathogen panel negative Currently no respiratory symptoms OP follow up. Stage IV metastatic carcinoma on chemo as OP, last dose 05/12. Needs follow-up with oncology on discharge Obesity BMI 37 DVT Px: Lovenox SQ Code Status Full code Admission and Anticipated Discharge Date Admission Date: May 23, 2023 Subjective Patient is seen and examined at bedside States having bilateral leg pain No other complaints Nausea, vomiting resolved Denies any abdominal pain, dizziness, chest pain, dyspnea, dysuria Tolerating current diet Review of Systems Review of Systems: All systems reviewed & are unremarkable except as noted in Subjective Physical Exam Physical Exam: Physical Exam: Vitals signs as noted above General Appearance:Obese, no apparent distress Head: normocephalic, Atraumatic Eyes: normal inspection, EOMI Neck: supple, Trachea midline Respiratory/Chest: Decreased breath sounds, CTA, No accessory muscle use Cardiovascular: S1, S2, No murmur Abdomen/GI:Soft, Non tender, Bowel sounds present Extremities/Musculoskeletal:normal inspection, no edema Neurologic/Psych:AAOX3, grossly no focal neurological deficits Skin: normal color, warm Results & Data Results & Data Vital Signs (Past 12 Hours) Vital Signs Temp Pulse Pulse Resp BP Pulse Ox O2 Del Method 05/25/23 07:41 91 H 05/25/23 03:19 36.8 C 96 H 20 102/63 94 Room Air 05/25/23 01:51 Room Air 05/24/23 23:49 36.9 C 98 H 20 117/74 96 Room Air 05/24/23 22:22 97 H 05/24/23 20:19 37.0 C 99 H 20 109/71 97 Room Air Laboratory Results Short CBC 05/25/23 Range/Units 05:43 WBC 8.31 (4.8-10.8) K/ul Hgb 7.6 L (12.0-16.0) g/dl Hct 22.3 L (37.0-47.0) % Plt Count 153 (130-400) K/uL BMP 05/25/23 05:43 Sodium 133 L Potassium 3.7 Chloride 100 Carbon Dioxide 27 BUN 12 Creatinine 0.74 Glucose 205 H Calcium 8.6
[2023-05-25 09:15] LABS: Appearance Urine Clear (Clear); Bacteria Urine Automated 1+ (Negative); Bilirubin Urine Negative (Negative); Blood Urine Negative (Negative); Color Urine Yellow; Glucose Urine UA 1+ (Negative); Ketones Urine Negative (Negative); Leukocyte Esterase Urine 1+ (Negative); Nitrite Urine Negative (Negative); Protein Urine Negative (Negative); Specific Gravity Urine 1.014 (1.000-1.030); Urobilinogen Urine Negative (Negative); WBC Urine Automated >30 /hpf (0-5); pH Urine 5.5 (4.5-7.5)
[2023-05-25] MEDS ORDERED: cefTRIAXone SODIUM 1,000 MG in DEXTROSE 5 % MINI-B 50 ML IV SCH (10:30)
[2023-05-25] MEDS: cefTRIAXone SODIUM 2,000 MG in DEXTROSE 5 % MINI-B 50 ML IV SCH (10:46)
[2023-05-25] MEDS: MAGNESIUM SULFATE / D5W 1 GM/100 ML BAG IV SCH (11:17)
[2023-05-26 05:02] LABS: Hematocrit (blood only) 24.4 % (37.0-47.0); Hemoglobin 8.1 g/dl (12.0-16.0); Mean Corpuscular Hemoglobin 29.1 pg (25.0-34.0); Mean Corpuscular Hgb Conc 33.2 g/dL (32.0-36.0); Mean Corpuscular Volume 87.8 fL (80.0-100.0); Mean Platelet Volume 9.5 fL (9.4-12.4); Nucleated RBC % (auto) 1.4 %; Platelet Count 150 K/uL (130-400); RDW Coefficient of Variation 17.2 % (11.5-14.5); RDW Standard Deviation 53.9 fL (36.4-46.3); Red Blood Count 2.78 M/uL (4.20-5.40); White Blood Count 7.15 K/ul (4.8-10.8)
[2023-05-26 05:20] LABS: BUN Creatinine Ratio 12.9 (10-20); Calcium 8.7 mg/dl (8.6-10.3); Creatinine Clr Calc Pharmacy 123.9 ml/min; Est GFR (African American) 120.4 ml/min; Est GFR (Non-African American) 103.9 ml/min; Magnesium 1.7 mg/dl (1.7-2.4); Potassium 3.5 mmol/L (3.5-5.1)
--- NOTE | 2023-05-26 16:44 | Discharge Summary ---
Discharge Summary Date of Service May 26, 2023 Notes For Next Care Provider Medication Changes From Visit Marinol 2.5 q6h prn for nausea/vomiting Ciprofloxacin BID x 8 tabs Admission HPI Per Admitting Provider 48 year old female with history of metastatic breast carcinoma, diabetes, back pain on opiates, history of hypercalcemia who presented to the ED with intractable nausea and vomiting secondary to chemotherapy. Patient is under chemotherapy for breast carcinoma. This is her second chemo. She had similar episode after prior chemo and had to be admitted here from 04/30-05/03. This time, she had her chemo on 05/12 and felt sick with nausea vomiting the next day. She was also admitted at [facility] the subsequent Wednesday through Wednesday, felt better and was discharged, however she felt starting sick with nausea vomiting couple days after and came here for the same. States that she has been unable to hold things down. She has been just eating liquid but vomits after about 15 minutes. Also has intractable back pain and is on fentanyl patch as well as well as oxycodone 10 mg every 4 hours (it was increased to 20 but she never received it due to pharmacy issues). Her olanzapine was done about 10 days ago. Her dexamethasone has been done as well. She is however taking her Lantus 30 twice daily and took this morning as well. Also takes Humalog with meals, h owever she did not take this morning as she came here. She denies any fever, chills, chest pain, shortness of breath, abdominal pain, diarrhea, lightheadedness, dizziness. States normal urine output. She states that she is due for fentanyl patch change today and is complaining of pain during my encounter. She received prochlorperazine which helped her nausea and vomiting. States her home ondansetron does not help her nausea vomiting. Admission Exam Per Admitting Provider General: Lying in bed, in some distress due to pain HEENT: EOMI, [place]ERT[place], MMM Chest: Clear breath sounds bilaterally, no wheezes or crackles, left sided port-a-cath CVS: Regular rate and rhythm, normal heart sounds, no murmur Abdomen: Soft, non tender, not distended, normal bowel sounds Neuro: Awake, alert, oriented, conversing well, non focal Extremities: No cyanosis, clubbing or edema Principal Dx & Hospital Course #1 = Principal Diagnosis (1) Intractable nausea and vomiting: (2) Cancer related pain: (3) Metastatic breast cancer: (4) Type II diabetes mellitus: (5) Hyperglycemia: (6) Hyponatremia: Plan Ms. Vega is a 48-year-old female with history of metastatic breast cancer under chemotherapy, diabetes who presented to ED with intractable nausea and vomiting secondary chemotherapy. Patient also with UA suspicious for infection v contaminant. She reports significant improvement and request to discharge to ensure attendance for oncologic and palliative appointments. #Toxic gastroenteritis due to Chemotherapy Presented with Intractable nausea and vomiting Hypokalemia, Hyponatremia secondary to GI losses Continue antiemetics as needed Continue olanzapine Discharge with Marinol prn for nausea to add to home regimen #Possible UTI Urine culture pending Discharged with PO ciprofloxacin, will call and update contingent on culture #Cancer related pain on fentanyl patch every 72 hours, oxycodone PRN #DM II HbA1C 9.3 Resume home regimen #Leukocytosis Likely reactive, c/f UTI Recent nulasta injection Cipro as above #Anemia of chronic disease stable #Abnormal CXR- reviewed. Respiratory pathogen panel negative Currently no respiratory symptoms OP follow up. #Stage IV metastatic carcinoma on chemo as OP, last dose 05/12. Needs follow-up with oncology on discharge--05/26 #Obesity BMI 37 On day of discharge, patient reports feeling well and nausea/symptoms under control. Discharge Exam Constitutional WD/WN, vitals as above Respiratory normal respiratory effort, lungs clear to auscultation Cardiovascular RRR, no murmur, no edema Gastrointestinal (Abdomen) normal bowel sounds, soft, nontender, no hepatosplenomegaly Updated Medication List Medication Instructions Recorded Confirmed Type denosumab 120 mg/1.7 mL (70 mg/mL) 120 mg subcut .Q 3months 01/01/22 05/01/23 History subcutaneous solution (Xgeva) blood-glucose sensor (Dexcom G6 12/17/22 04/19/23 History Sensor device) blood-glucose transmitter (Dexcom 12/17/22 04/19/23 History G6 Transmitter device) insulin aspart U-100 100 unit/mL 10 unit subcut AC 12/17/22 05/01/23 History (3 mL) subcutaneous pen (Novolog FlexPen U-100 Insulin aspart) insulin glargine 100 unit/mL (3 30 unit subcut BID 12/17/22 05/01/23 History mL) subcutaneous pen (Lantus Solostar U-100 Insulin) ondansetron HCl 8 mg tablet 8 mg PO Q12H PRN Nausea 12/17/22 05/01/23 History pen needle, diabetic 32 gauge x 12/17/22 04/19/23 History " (BD Ultra-Fine Aletha Pen Needle) olanzapine 10 mg tablet 10 mg PO HS #30 tabs 05/04/23 Rx dexamethasone 4 mg tablet 4 mg PO BID #60 tabs 05/06/23 05/06/23 Rx oxycodone 20 mg tablet 20 mg PO Q4H very severe cancer 05/06/23 05/06/23 Rx pain 1 month #180 tabs ciprofloxacin HCl 500 mg tablet 500 mg PO BID #8 tabs 05/26/23 Rx (Cipro) dronabinol 2.5 mg capsule 2.5 mg PO Q6H PRN nausea and 05/26/23 Rx vomiting #30 caps Hospital Stay Data Consultations 05/23/23 16:03 ED Decision to Admit Stat Pending Results Patient Have Any Pending Studies at Discharge: Yes (Final Urine Culture ) Discharge Instructions Given to Patient (Per Discharging Provider) You were admitted for nausea and vomiting. Your UA was questionable for possible infection. Your nausea and vomiting improved with minimal intervention. You were transitioned to an oral antibiotic. -Ciprofloxacin 500mg two times a day until complete, next dose this evening 05/25 You were given a short supply of Marinol 2.5 mg for nausea. This has worked previously on prior admissions and may hopefully serve as an adjunct to your current regimen. Please discuss about other options post-chemo with Dr. Vazquez. Total Time Total Time Spent Total Time Spent (In Minutes): 45
== END 2023-05-26 15:05 | disposition home or self-care (01) | DRG 394 ==
LOC: ED 12:04 → SUATTDRO 14:24 → 2W 14:24

== ENCOUNTER 2023-06-25 01:33 | Observation (INO) ==
[2023-06-25] MEDS ORDERED: HYDROmorphone INJ 0.5 MG/0.5 ML SYR IV PRN (02:30)
[2023-06-25] MEDS: PROMETHAZINE 12.5 MG/50.5 ML BAG IV STA ×2 (03:12→07:00)
[2023-06-25] MEDS: SODIUM CHLORIDE 0.9% 1,000 ML IV SCH ×2 (03:13→12:30)
[2023-06-25 03:27] LABS: Alanine Aminotransferase 12 U/L (7-52); Albumin Globulin Ratio 1.2 (0.9-2); Albumin Level 3.6 gm/dl (3.4-5.0); Alkaline Phosphatase 173 U/L (34-104); Anion Gap 12 (3-11); Aspartate Aminotransferase 18 U/L (13-39); BUN Creatinine Ratio 18.3 (10-20); Bilirubin,Total 1.4 mg/dl (0.2-1.0); Blood Urea Nitrogen 17 mg/dl (6-23); Calcium 8.1 mg/dl (8.6-10.3); Carbon Dioxide 22 mmol/L (21-32); Chloride 95 mmol/L (98-107); Est GFR (African American) 85.4 ml/min; Est GFR (Non-African American) 73.7 ml/min; Glucose 554 mg/dl (70-99(Fasting)); Lipase 14 U/L (11-82); Magnesium 1.8 mg/dl (1.7-2.4); Potassium 3.7 mmol/L (3.5-5.1); Sodium 129 mmol/L (136-145); Total Protein 6.6 gm/dl (6.0-8.3); Troponin I High Sensitivity 5.2 pg/ml (0-14)
--- NOTE | 2023-06-25 03:34 | Emergency Department Note ---
Impression & Plan Nausea & vomiting, Hyperglycemia, Dehydration ED Provider Note ED Provider Note NAME: DEMETRIA CHAN AGE:48 SEX: Female : 1975 ARRIVES VIA: Private vehicle INFORMANT: Patient ED PROVIDER(s): Sarah Diamond DO CHIEF COMPLAINT: Nausea and vomiting HPI: This is a 48-year-old female presents emerged from due to concern for recurrent nausea and vomiting. Patient is undergoing treatment for cancer and had chemotherapy on Wednesday. She states she was given Compazine and IV fluids at that time due to known side effects that she has had GI side effects previously with this current chemo regimen. She states today she began getting nauseous again and the Zofran she has at home for this did not help. She had multiple episodes of vomiting without improvement. PAST MEDICAL HISTORY:See Below PAST SURGICAL HISTORY:See Below FAMILY HISTORY:See Below SOCIAL HISTORY:See Below HOME MEDICATIONS:See Below ALLERGIES:See Below VITALS:See Below PHYSICAL EXAMINATION: GENERAL: alert, ill appearing, well nourished, no distress, non-toxic EYE EXAM: normal conjunctiva, PERRL and EOM's grossly intact OROPHARYNX: no exudate, no erythema, lips, buccal mucosa, and tongue normal and mucous membranes are dry NECK: supple, no nuchal rigidity, no adenopathy, non-tender LUNGS: Clear to auscultation. Normal chest wall mechanics, no w/r/r HEART: no murmurs, S1 normal and S2 normal, port noted left anterior superior chest wall ABDOMEN: abdomen soft, non-tender, normo-active bowel sounds, no masses, no rebound or guarding. BACK: Back is symmetrical on inspection and there is no deformity, no midline tenderness, no CVA tenderness. SKIN: no rashes, petechiae, orbruising, mild pallor UPPER EXTREMITIES: upper extremities are grossly normal. FROM, nml pulses b/l. LOWER EXTREMITIES: No pitting edema. FROM, nml pulses b/l. NEURO EXAM: Normal sensorium, cranial nerves II-XII grossly intact, normal speech, no facial droop,nogross weakness of arms, no gross weakness of legs. Gross sensation intact. No ataxia. Vital Signs: reviewed and remarkable Differential Diagnosis: Medication ADR, dehydration, BHAVANA, viral syndrome, side effect of chemotherapy, bowel obstruction, gastritis, PUD, pancreatitis, colitis, as well as others were considered MEDICAL DECISION MAKING: This is a 48-year-old female who presents due to concern for nausea and vomiting throughout the day today and worsening dehydration. Patient's feels symptoms are related to recent chemotherapy infusion the beginning of the week as she has had this happen previously. She was afebrile at home and on arrival here. Vital signs were stable, however patient was noted to be tachycardic. Patient's port was accessed, labs drawn and sent, IV fluids started, she was monitored on telemetry. Abdominal exam was unremarkable and she reported no pain. Patient was given IV antiemetics and IV fluids. After 2 L of IV fluids and several doses of antiemetics as well as IV pain medication, we discussed her current condition. Patient does not feel she is well enough to return home at this time. Patient was noted to be hyperglycemic although this was improving with additional IV insulin and IV fluids. I do not suspect evolving DKA. Patient states she typically has hyperglycemia when she has vomiting. Case discussed with the hospitalist team for additional evaluation and management. Consultation(s): [id number]: Discussed with Dr. Bose, [facility] hospitalist, for additional evaluation and mgmt. ER Treatment Provided: See below Diagnostics Interpreted By Me: -ECG: Normal sinus at 95, normal axis, normal intervals, no acute ST/T wave changes -Cardiac Monitoring: An order was placed for continuous cardiac monitoring. The monitor shows a rate of 98 with normal sinus rhythm. -Laboratory studies: As stated above and show below. Triage Nursing Note Reviewed Prior/Outside Records Reviewed -prior discharge summary reviewed Past Med/Surg History Medical History Lab test negative for COVID-19 virus Vomiting Dehydration Hyponatremia Depression Refractory nausea and vomiting Palliative care by specialist Advanced care planning/counseling discussion Breast cancer metastasized to bone Weakness generalized Cancer-related breakthrough pain Cancer related pain History of COVID-19 12/2020 + 12/2021 > residual taste dysfunction and feeling of need to clear throat Bilateral breast cancer Arthritis Liver spots "Mets from cancer" Depression with anxiety Peripheral neuropathy Heart palpitations R/t anxiety per patient Type II diabetes mellitus History of small bowel obstruction Hx bowel obstruction Hypothyroidism No current meds Breast cancer (11/12/15) Stage 4 (+ mets) Surgical History History of tubal ligation Port-A-Cath in place (04/30/22) Insertion Access Port left subclavian with Fluoroscopy(Left) - Chad Banuelos DO History of surgery Left Excisional Debridement of Buttock Wound Nausea and vomiting after administration of anesthetic agent "EXTREME" History of vascular access device PORT INSERTION/REMOVAL History of tooth extraction History of endometrial ablation History of bowel resection D/T BOWEL OBSTRUCTION History of lung surgery Left thoracoscopy with wedge resection left lower lobe Dr. Damico 03/29/2018 History of dilatation and curettage H/O hernia repair Hx of section x3 S/P lumpectomy, left breast LEFT ARM LIMB RESTRICTION Family History Mother , 77yo Diabetes Heart disease Aortic valve replacement Mitral valve calcifications UTI (urinary tract infection) Father , 62yo Diabetes Myocardial infarction Hypertension Stroke Brother Diabetes Myocardial infarction Cardiac stents Pacemaker Hypertension Sister No problems noted. Daughter No problems noted. Son No problems noted. Son No problems noted. 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 How many Children do You have: 3 Other Information That Helps Us Care for You: No Feels Safe at Home: Yes Safety Concerns: Feels Safe At This Time Diet: regular caffeine: No during the past year weight has: remained stable Assistive Devices: None Allergies Allergies Allergy/AdvReac Type Severity Reaction Status Date / Time No Known Allergies Allergy Verified 04/19/23 17:28 Home Meds Home Medications Medication Instructions Recorded Confirmed dexamethasone 4 mg tablet 4 mg PO BID 06/25/23 06/25/23 insulin aspart U-100 100 unit/mL sliding scale dose subcut AC 06/25/23 (3 mL) subcutaneous pen (Novolog FlexPen U-100 Insulin aspart) insulin glargine 100 unit/mL (3 30 unit subcut BID 06/25/23 06/25/23 mL) subcutaneous pen (Lantus Solostar U-100 Insulin) olanzapine 10 mg tablet 10 mg PO HS 06/25/23 06/25/23 ondansetron 8 mg disintegrating 8 mg translingual BID PRN Nausea 06/25/23 06/25/23 tablet And Vomiting oxycodone 10 mg tablet 10 mg PO Q4H PRN Pain (Scale Score 06/25/23 06/25/23 4-6) Results & Data (ED) Vital Signs Vital Signs - 24 hr 06/25/23 06:02 06/25/23 07:00 06/25/23 07:00 Pulse Rate 94 H 97 H Pulse Rate [Apical] Pulse Rate from SpO2 Sensor 97 H Respiratory Rate 18 Respiratory Effort / Characteristics Respiratory Depth Blood Pressure 119/69 Blood Pressure [Right Arm] Blood Pressure Mean 91 Blood Pressure Mean [Right Arm] Blood Pressure Position [Right Arm] Pulse Oximetry 93 Oxygen Delivery Method 06/25/23 07:30 06/25/23 08:00 06/25/23 08:00 Pulse Rate 95 H Pulse Rate [Apical] 95 H Pulse Rate from SpO2 Sensor 95 H Respiratory Rate 17 16 Respiratory Effort / Characteristics Non-Labored Spontaneous Respiratory Depth Normal Blood Pressure 118/66 Blood Pressure [Right Arm] 118/66 Blood Pressure Mean 79 Blood Pressure Mean [Right Arm] 83 Blood Pressure Position [Right Arm] Semi-fowlers Pulse Oximetry 93 94 Oxygen Delivery Method Room Air 06/25/23 08:00 Pulse Rate 94 H Pulse Rate [Apical] Pulse Rate from SpO2 Sensor 94 H Respiratory Rate 17 Respiratory Effort / Characteristics Respiratory Depth Blood Pressure Blood Pressure [Right Arm] Blood Pressure Mean Blood Pressure Mean [Right Arm] Blood Pressure Position [Right Arm] Pulse Oximetry 93 Oxygen Delivery Method Laboratory Data 06/25/23 02:18 06/25/23 02:18 Lab Results 06/25/23 06/25/23 Range/Units 02:18 06:11 WBC 0.86 L* (4.8-10.8) K/ul RBC 2.83 L (4.20-5.40) M/uL Hgb 8.3 L (12.0-16.0) g/dl Hct 23.4 L (37.0-47.0) % MCV 82.7 (80.0-100.0) fL MCH 29.3 (25.0-34.0) pg MCHC 35.5 (32.0-36.0) g/dL RDW Std Deviation 46.3 (36.4-46.3) fL RDW Coeff of Joshua 15.6 H (11.5-14.5) % Plt Count 225 (130-400) K/uL MPV 9.5 (9.4-12.4) fL Immature Gran % (Auto) 0.0 % Neut % (Auto) 26.7 % Lymph % (Auto) 61.6 % [place] % (Auto) 10.5 % Eos % (Auto) 0.0 % Baso % (Auto) 1.2 % Neut # (Auto) 0.23 L* (1.40-6.50) K/uL Lymph # (Auto) 0.53 L (1.20-3.40) K/uL [place] # (Auto) 0.09 L (0.11-0.59) K/uL Eos # (Auto) 0.00 (0.00-0.50) K/uL Baso # (Auto) 0.01 (0.00-0.20) K/uL Immature Gran # (Auto) 0.00 L (0.01-0.20) K/uL PT 11.0 (9.0-12.0) Seconds INR 1.0 (0.9-1.1) Sodium 129 L (136-145) mmol/L Potassium 3.7 (3.5-5.1) mmol/L Chloride 95 L (98-107) mmol/L Carbon Dioxide 22 (21-32) mmol/L Anion Gap 12 H (3-11) BUN 17 (6-23) mg/dl Creatinine 0.93 (0.6-1.2) mg/dl Est Cr Clr Drug Dosing Not Reportable Est GFR ( Amer) 85.4 ml/min Est GFR (Non-Af Amer) 73.7 ml/min BUN/Creatinine Ratio 18.3 (10-20) Glucose 554 H* (70-99(Fasting)) mg/dl POC Glucose 435 H* (70-99) mg/dl Calcium 8.1 L (8.6-10.3) mg/dl Magnesium 1.8 (1.7-2.4) mg/dl Total Bilirubin 1.4 H (0.2-1.0) mg/dl AST 18 (13-39) U/L ALT 12 (7-52) U/L Alkaline Phosphatase 173 H (34-104) U/L Troponin I High Sens 5.2 (0-14) pg/ml Total Protein 6.6 (6.0-8.3) gm/dl Albumin 3.6 (3.4-5.0) gm/dl Globulin 3.0 (2.5-4.0) gm/dl Albumin/Globulin Ratio 1.2 (0.9-2) Lipase 14 (11-82) U/L TSH 6.331 H (0.300-4.500) uIu/ml Free T4 0.70 (0.61-1.60) ng/dl Administered Medications Enoxaparin Sodium (Enoxaparin Inj 40 Mg/0.4 Ml Syr) 40 mg SQ Q24H [facility] Stop: 07/25/23 13:59 Last Admin: 06/25/23 14:17 Dose: Not Given Documented By: UNRULYK Hydromorphone HCl (Hydromorphone Inj 0.5 Mg/0.5 Ml Syr) 0.5 mg IV Q6H PRN; Protocol PRN Reason: Severe Pain (Scale 7, 8, 9,10) Stop: 07/09/23 12:57 Last Admin: 06/26/23 01:13 Dose: 0.5 mg Documented By: Admin: 06/25/23 15:57 Dose: 0.5 mg Documented By: JASMIN Sodium Chloride (Nss) 1,000 mls @ 125 mls/hr IV .Q8H [facility] Stop: 07/25/23 10:30 Last Admin: 06/26/23 01:12 Dose: 125 mls/hr Documented By: TKAng Infusion: 06/26/23 01:12 Dose: Infused Documented By: TKAng Admin: 06/25/23 17:16 Dose: 125 mls/hr Documented By: Infusion: 06/25/23 17:16 Dose: Infused Documented By: Admin: 06/25/23 12:30 Dose: 125 mls/hr Documented By: ML Promethazine HCl 6.25 mg/ (Sodium Chloride) 50.25 mls @ 201 mls/hr IV Q6H PRN PRN Reason: Nausea And Vomiting Stop: 07/25/23 12:47 Last Infusion: 06/25/23 15:40 Dose: Infused Documented By: Admin: 06/25/23 14:18 Dose: 201 mls/hr Documented By: MOLLY Insulin Aspart (Insulin Aspart Per Unit Charge) 0 units SC ACHS JESSE Stop: 07/25/23 11:29 Last Admin: 06/25/23 20:51 Dose: 7 units Documented By: ANATOLIY Co-signed By: LISA Admin: 06/25/23 17:22 Dose: 9 units Documented By: JASMIN Co-signed By: GIOVANNA Admin: 06/25/23 14:18 Dose: 9 units Documented By: MOLLY Co-signed By: DONNA Insulin Aspart (Insulin Aspart Per Unit Charge) 0 units SC 0000,0400 JESSE Stop: 07/26/23 00:00 Last Admin: 06/26/23 03:57 Dose: 5 units Documented By: ANATOLIY Co-signed By: LISA Admin: 06/26/23 00:00 Dose: 4 units Documented By: TKAng Co-signed By: LISA Insulin Glargine (Lantus Per Unit Charge) 20 units SQ BID JESSE Stop: 07/25/23 11:29 Last Admin: 06/25/23 20:52 Dose: 20 units Documented By: ANATOLIY Co-signed By: LISA Admin: 06/25/23 13:23 Dose: 20 units Documented By: DONNA Co-signed By: GAIVNO Olanzapine (Olanzapine 5 Mg Tablet) 5 mg PO HS JESSE Stop: 07/25/23 20:59 Last Admin: 06/25/23 20:17 Dose: 5 mg Documented By: ANATOLIY Discontinued Medications Dexamethasone (Dexamethasone 4 Mg Tab) 4 mg PO BID JESSE Stop: 07/25/23 10:30 Last Admin: 06/25/23 13:49 Dose: Not Given Documented By: MOLLY Sodium Chloride (Nss) 1,000 mls @ 250 mls/hr IV .Q4H JESSE Stop: 07/25/23 02:29 Last Admin: 06/25/23 12:24 Dose: Not Given Documented By: Infusion: 06/25/23 12:23 Dose: Infused Documented By: Admin: 06/25/23 08:14 Dose: 250 mls/hr Documented By: Infusion: 06/25/23 07:13 Dose: Infused Documented By: Admin: 06/25/23 03:13 Dose: 250 mls/hr Documented By: BOB Promethazine HCl (Phenergan) 12.5 mg in 50.5 mls @ 202 mls/hr IV NOW STA Stop: 06/25/23 02:44 Last Infusion: 06/25/23 04:48 Dose: Infused Documented By: Admin: 06/25/23 03:12 Dose: 202 mls/hr Documented By: BOB Pantoprazole Sodium 40 mg/ (Syringe) 10 mls @ 5 mls/min IV NOW ONE Stop: 06/25/23 02:31 Last Admin: 06/25/23 04:34 Dose: 5 mls/min Documented By: BOB Promethazine HCl (Phenergan) 12.5 mg in 50.5 mls @ 202 mls/hr IV NOW STA Stop: 06/25/23 04:45 Last Admin: 06/25/23 07:00 Dose: Not Given Documented By: DONNA Insulin Human Regular (Novolin-R Insulin Per Unit Charge) 8 units IV NOW STA Stop: 06/25/23 03:32 Last Admin: 06/25/23 04:33 Dose: 8 units Documented By: BOB Co-signed By: Insulin Human Regular (Novolin-R Insulin Per Unit Charge) 5 units IV NOW Stop: 06/25/23 07:09 Last Admin: 06/25/23 08:14 Dose: 5 units Documented By: DONNA Co-signed By: GAVINO Miscellaneous (Patient's Height &/Or Weight Needed) 1 each N/A NOW Stop: 06/25/23 07:32 Last Admin: 06/25/23 12:32 Dose: 1 each Documented By: BETO Caoaneous (Patient's Height &/Or Weight Needed) 1 each N/A NOW Stop: 06/25/23 10:35 Last Admin: 06/25/23 12:32 Dose: 1 each Documented By: BETO Caoaneous (Patient's Height &/Or Weight Needed) 1 each N/A Q2H JSESE Stop: 07/25/23 10:59 Last Admin: 06/25/23 16:06 Dose: Not Given Documented By: [facility] Admin: 06/25/23 12:32 Dose: 1 each Documented By: ML Promethazine HCl (Promethazine 12.5 Mg/50.5 Ml Nss) Confirm Administered Dose 12.5 mg IV .STK-MED ONE Stop: 06/25/23 14:17 Last Admin: 06/25/23 15:01 Dose: Not Given Documented By: GONZÁLEZ Discharge Plan Visit Data Chief Complaint: Vomiting Stated Complaint: VOMITING ED Provider: Sarah Diamond Discharge Problem: Nausea & vomiting, Hyperglycemia, Dehydration Patient Disposition: Admitted As Inpatient Discharge Instructions Interventions: ED Discharge Assessment Last Done: 06/25/23 10:31
[2023-06-25 03:39] LABS: Thyroid Stimulating Hormone 6.331 uIu/ml (0.300-4.500)
[2023-06-25 04:09] LABS: Hematocrit (blood only) 23.4 % (37.0-47.0); Hemoglobin 8.3 g/dl (12.0-16.0); Mean Corpuscular Hemoglobin 29.3 pg (25.0-34.0); Mean Corpuscular Hgb Conc 35.5 g/dL (32.0-36.0); Mean Corpuscular Volume 82.7 fL (80.0-100.0); Mean Platelet Volume 9.5 fL (9.4-12.4); Platelet Count 225 K/uL (130-400); RDW Coefficient of Variation 15.6 % (11.5-14.5); RDW Standard Deviation 46.3 fL (36.4-46.3); Red Blood Count 2.83 M/uL (4.20-5.40); White Blood Count 0.86 K/ul (4.8-10.8)
[2023-06-25] MEDS: NovoLIN-R INSULIN PER UNIT CHARGE IV STA ×2 (04:33→08:14)
[2023-06-25] MEDS: PANTOprazole 40 MG in SYRINGE 0 ML IV ONE (04:34)
[2023-06-25 05:02] LABS: Basophils # (auto) 0.01 K/uL (0.00-0.20); Basophils % (auto) 1.2 %; Lymphocytes # (auto) 0.53 K/uL (1.20-3.40); Lymphocytes % (auto) 61.6 %; Monocytes # (auto) 0.09 K/uL (0.11-0.59); Monocytes % (auto) 10.5 %; Neutrophils # (auto) 0.23 K/uL (1.40-6.50); Neutrophils % (auto) 26.7 %
--- NOTE | 2023-06-25 10:04 | History & Physical Report ---
Date of Service June 25, 2023 Assessment & Plan (1) Nausea & vomiting: Plan: 48-year-old female with past medical history significant for metastatic breast cancer, diabetes, on pain medication, history of hypercalcemia who is getting chemotherapy for breast cancer and had fourth cycle of chemo last Wednesday comes because of severe nausea and vomiting starting yesterday. Says she is not able to keep anything down. Denies any chest pain or shortness of breath. No abdominal pain. Somewhat constipated. Micturating okay. Ambulating okay. No fevers. No cough. No runny nose or sore throat. Hemodynamics are okay. Nausea and vomiting Post chemo Supportive care IV fluids IV antiemetics Clears Close monitor Metastatic breast cancer Getting chemo Follow-up with heme-onc Continue home pain medications Diabetes Hyperglycemia On steroids Lantus 20 units twice daily as patient is currently on clears and not eating much because of nausea and vomiting Sliding scale Glycemic pharmacy consult Close monitor Neutropenia and anemia Mostly from chemo Neutropenic precautions Follow labs Hyponatremia Sodium 129 Mostly pseudohyponatremia from hyperglycemia Will follow labs DVT prophylaxis On Lovenox Disposition Medical floor Full code History of Present Illness Chief Complaint: Nausea and vomiting Primary Care Provider: CONSTANTINO Reid 48-year-old female with past medical history significant for metastatic breast cancer, diabetes, on pain medication, history of hypercalcemia who is getting chemotherapy for breast cancer and had fourth cycle of chemo last Wednesday comes because of severe nausea and vomiting starting yesterday. Says she is not able to keep anything down. Denies any chest pain or shortness of breath. No abdominal pain. Somewhat constipated. Micturating okay. Ambulating okay. No fevers. No cough. No runny nose or sore throat. Hemodynamics are okay. Past medical's. As mentioned above Past surgical history. History of tubal ligation. Port-A-Cath placement. Left excisional debridement of buttock wound. Tooth extraction. Endometrial ablation. History of bowel resection. Left thoracoscopy with wedge resection of left lower lobe. Dilatation curettage. History of hernia repair. x 3. Left breast lumpectomy. Family history. Father diabetes. [place]. Hypertension stroke. Brother had diabetes. [place]. Pacemaker. Hypertension. Mother had diabetes. Heart disease. Aortic valve replacement. Social history. Former smoker. No alcohol use. No drug use. Allergies Allergy/AdvReac Type Severity Reaction Status Date / Time No Known Allergies Allergy Verified 04/19/23 17:28 Home Medications Medication Instructions Recorded Confirmed Type dexamethasone 4 mg tablet 4 mg PO BID 06/25/23 06/25/23 History insulin aspart U-100 100 unit/mL sliding scale dose subcut AC 06/25/23 History (3 mL) subcutaneous pen (Novolog FlexPen U-100 Insulin aspart) insulin glargine 100 unit/mL (3 30 unit subcut BID 06/25/23 06/25/23 History mL) subcutaneous pen (Lantus Solostar U-100 Insulin) olanzapine 10 mg tablet 10 mg PO HS 06/25/23 06/25/23 History ondansetron 8 mg disintegrating 8 mg translingual BID PRN Nausea 06/25/23 06/25/23 History tablet And Vomiting oxycodone 10 mg tablet 10 mg PO Q4H PRN Pain (Scale Score 06/25/23 06/25/23 History 4-6) Past Med/Surg History Medical History Lab test negative for COVID-19 virus Vomiting Dehydration Hyponatremia Depression Refractory nausea and vomiting Palliative care by specialist Advanced care planning/counseling discussion Breast cancer metastasized to bone Weakness generalized Cancer-related breakthrough pain Cancer related pain History of COVID-19 12/2020 + 12/2021 > residual taste dysfunction and feeling of need to clear throat Bilateral breast cancer Arthritis Liver spots "Mets from cancer" Depression with anxiety Peripheral neuropathy Heart palpitations R/t anxiety per patient Type II diabetes mellitus History of small bowel obstruction Hx bowel obstruction Hypothyroidism No current meds Breast cancer (11/12/15) Stage 4 (+ mets) Surgical History History of tubal ligation Port-A-Cath in place (04/30/22) Insertion Access Port left subclavian with Fluoroscopy(Left) - Chad Banuelos DO History of surgery Left Excisional Debridement of Buttock Wound Nausea and vomiting after administration of anesthetic agent "EXTREME" History of vascular access device PORT INSERTION/REMOVAL History of tooth extraction History of endometrial ablation History of bowel resection D/T BOWEL OBSTRUCTION History of lung surgery Left thoracoscopy with wedge resection left lower lobe Dr. Damico 03/29/2018 History of dilatation and curettage H/O hernia repair Hx of section x3 S/P lumpectomy, left breast LEFT ARM LIMB RESTRICTION Family History Mother , 77yo Diabetes Heart disease Aortic valve replacement Mitral valve calcifications UTI (urinary tract infection) Father , 62yo Diabetes Myocardial infarction Hypertension Stroke Brother Diabetes Myocardial infarction Cardiac stents Pacemaker Hypertension Sister No problems noted. Daughter No problems noted. Son No problems noted. Son No problems noted. Other No family history of adverse response to anesthesia Social History Smoking Status: Never smoker Second Hand Exposure: No; Do You Dip or Chew Tobacco: No; Hx Alcohol Use: Yes Alcohol type: hard liquor Alcohol Intake Frequency: Monthly or Less Hx Substance Use: Yes Last Used Substance: Unknown Last Used Substance Other:: ONLY USES MEDICAL MARIJUANA (VAPING) FOR PAIN Substance Use Type Other:: medical Preferred Language: Romanian Communication Ability: Effective Visual Impairment: No Limitations Hearing Ability: Normal Compressed Air Pile Driver Operator Required: No Beliefs That Will Affect Care: None marital status: Single Current Living Situation: Family Current Living Situation Comment: lives at home with 3 children 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 ENT- oropharynx clear Neck- supple, no JVD. Lungs- clear to auscultation no wheezing or crackles Heart- regular rhythm; no murmur, no gallop. Abdomen- normal bowel sounds, soft, nontender, no distension Extremities- no pretibial edema, no erythema seen. Neuro- alert, oriented PERRL, no facial palsy; no dysarthria; moves extremities. Skin- warm & dry Results & Data Results & Data Vital Signs (Past 12 Hours) Vital Signs Temp Pulse Resp BP Pulse Ox O2 Del Method 06/25/23 06:02 94 H 06/25/23 02:06 92 H 06/25/23 01:42 36.6 C 112 H 20 107/77 100 Room Air Diagnostic Findings Laboratory Results WBC 0.86 K/ul (4.8-10.8) L* 06/25/23 02:18 RBC 2.83 M/uL (4.20-5.40) L 06/25/23 02:18 Hgb 8.3 g/dl (12.0-16.0) L 06/25/23 02:18 Hct 23.4 % (37.0-47.0) L 06/25/23 02:18 MCV 82.7 fL (80.0-100.0) 06/25/23 02:18 MCH 29.3 pg (25.0-34.0) 06/25/23 02:18 MCHC 35.5 g/dL (32.0-36.0) 06/25/23 02:18 RDW Std Deviation 46.3 fL (36.4-46.3) 06/25/23 02:18 RDW Coeff of Joshua 15.6 % (11.5-14.5) H 06/25/23 02:18 Plt Count 225 K/uL (130-400) 06/25/23 02:18 MPV 9.5 fL (9.4-12.4) 06/25/23 02:18 Immature Gran % (Auto) 0.0 % 06/25/23 02:18 Neut % (Auto) 26.7 % 06/25/23 02:18 Lymph % (Auto) 61.6 % 06/25/23 02:18 [place] % (Auto) 10.5 % 06/25/23 02:18 Eos % (Auto) 0.0 % 06/25/23 02:18 Baso % (Auto) 1.2 % 06/25/23 02:18 Neut # (Auto) 0.23 K/uL (1.40-6.50) L* 06/25/23 02:18 Lymph # (Auto) 0.53 K/uL (1.20-3.40) L 06/25/23 02:18 [place] # (Auto) 0.09 K/uL (0.11-0.59) L 06/25/23 02:18 Eos # (Auto) 0.00 K/uL (0.00-0.50) 06/25/23 02:18 Baso # (Auto) 0.01 K/uL (0.00-0.20) 06/25/23 02:18 Immature Gran # (Auto) 0.00 K/uL (0.01-0.20) L 06/25/23 02:18 PT 11.0 Seconds (9.0-12.0) 06/25/23 02:18 INR 1.0 (0.9-1.1) 06/25/23 02:18 Sodium 129 mmol/L (136-145) L 06/25/23 02:18 Potassium 3.7 mmol/L (3.5-5.1) 06/25/23 02:18 Chloride 95 mmol/L (98-107) L 06/25/23 02:18 Carbon Dioxide 22 mmol/L (21-32) 06/25/23 02:18 Anion Gap 12 (3-11) H 06/25/23 02:18 BUN 17 mg/dl (6-23) 06/25/23 02:18 Creatinine 0.93 mg/dl (0.6-1.2) 06/25/23 02:18 Est Cr Clr Drug Dosing Not Reportable 06/25/23 02:18 Est GFR ( Amer) 85.4 ml/min 06/25/23 02:18 Est GFR (Non-Af Amer) 73.7 ml/min 06/25/23 02:18 BUN/Creatinine Ratio 18.3 (10-20) 06/25/23 02:18 Glucose 554 mg/dl (70-99(Fasting)) H* 06/25/23 02:18 POC Glucose 366 mg/dl (70-99) H* 06/25/23 09:03 Calcium 8.1 mg/dl (8.6-10.3) L 06/25/23 02:18 Magnesium 1.8 mg/dl (1.7-2.4) 06/25/23 02:18 Total Bilirubin 1.4 mg/dl (0.2-1.0) H 06/25/23 02:18 AST 18 U/L (13-39) 06/25/23 02:18 ALT 12 U/L (7-52) 06/25/23 02:18 Alkaline Phosphatase 173 U/L (34-104) H 06/25/23 02:18 Troponin I High Sens 5.2 pg/ml (0-14) 06/25/23 02:18 Total Protein 6.6 gm/dl (6.0-8.3) 06/25/23 02:18 Albumin 3.6 gm/dl (3.4-5.0) 06/25/23 02:18 Globulin 3.0 gm/dl (2.5-4.0) 06/25/23 02:18 Albumin/Globulin Ratio 1.2 (0.9-2) 06/25/23 02:18 Lipase 14 U/L (11-82) 06/25/23 02:18 TSH 6.331 uIu/ml (0.300-4.500) H 06/25/23 02:18 Free T4 0.70 ng/dl (0.61-1.60) 06/25/23 02:18 ECG Additional Comments: ECG. Normal sinus rhythm rate of 95. Nonspecific T wave abnormality. Code Status & VTE Plan VTE Prophylaxis Plan VTE Prophylaxis will be ordered: Yes
[2023-06-25] MEDS ORDERED: GLUCOSE 10 TAB/TUBE PO PRN (10:31)
[2023-06-25] MEDS ORDERED: GLUCOSE 40% GEL 15 GM TUBE PO PRN (10:31)
[2023-06-25] MEDS ORDERED: GLUCAGON FOR INJ 1 MG VIAL SQ PRN (10:31)
[2023-06-25] MEDS ORDERED: PHARMACY GLYCEMIC MGMT CONSULT PRN (10:31)
[2023-06-25] MEDS ORDERED: oxyCODONE HCL IR 5 MG TAB (IMMEDIATE RELEASE) PO PRN ×2 (10:31→12:58)
[2023-06-25] MEDS ORDERED: DEXTROSE 50% 50 ML SYRINGE IV PRN (10:31)
[2023-06-25] MEDS ORDERED: CARBOHYDRATES FOR HYPOGLYCEMIA PO PRN (10:31)
[2023-06-25] MEDS ORDERED: ACETAMINOPHEN 325 MG TAB PO PRN (10:31)
[2023-06-25] MEDS ORDERED: ONDANSETRON INJ 2 MG/ML 2 ML VIAL IV PRN (10:31)
--- NOTE | 2023-06-25 11:39 | Pharmacy Report ---
Pharmacy Glycemic Short Note 2 - Date of Service June 25, 2023 - Glycemic Short BSG Results (Last 24 hours): 06/25/23 06/25/23 06/25/23 02:18 06:11 09:03 Glucose 554 H* POC Glucose 435 H* 366 H* OUTPATIENT ANTIDIABETIC REGIMEN: * Lantus 30 units SQ BID * Novolog SSI * Dexamethasone 4mg PO BID * HbA1c: 9.3% (02/08/23) -- updated A1c pending w/ AM labs ASSESSMENT: * Ms Vega is a 48yo diabetic F admitted with N/V, hyperglycemia. PMH is significant for metastatic breast CA, currently receiving chemotherapy. * Pt is ordered PO dexamethasone, which she was taking as an outpt prior to admission. * Pt is currently ordered a clear liquid diet. * Pharmacy will continue to follow and adjust insulin regimen as indicated during hospital stay. PLAN FOR INPATIENT GLYCEMIC CONTROL: * Basal insulin * Lantus 20 units SQ BID * Bolus insulin * NovoLog per scale ACHS or Q6hrs while NPO * Goal Range: Low 110 mg/dL - High 140 mg/dL * Correction Factor: 25 mg/dL/unit * Nutritional / Prandial insulin per carb ratio of 1 unit per 8 grams CHO consumed
[2023-06-25] MEDS: Patient's HEIGHT &/or WEIGHT Needed SCH (12:32)
[2023-06-25] MEDS: Patient's HEIGHT &/or WEIGHT Needed STA ×2 (12:32)
--- NOTE | 2023-06-25 12:49 | Electrocardiogram Report ---
Test Reason : Blood Pressure : / mmHG Vent. Rate : 095 BPM Atrial Rate : 095 BPM P-R Int : 138 ms QRS Dur : 076 ms QT Int : 372 ms P-R-T Axes : 036 -22 027 degrees QTc Int : 467 ms Normal sinus rhythm Normal ECG When compared with ECG of 23-MAY-2023 12:51, Borderline criteria for Anterior infarct are no longer Present Nonspecific T wave abnormality no longer evident in Anterior leads Confirmed by Rey Rosales ([id number]) on 06/25/2023 12:48:52 PM Referred By: REFERRED SELF Confirmed By:Rey Rosales
[2023-06-25] MEDS: LANTUS PER UNIT CHARGE SQ SCH (13:23)
[2023-06-25] MEDS: dexAMETHasone 4 MG TAB PO SCH (13:49)
[2023-06-25] MEDS: ENOXAPARIN INJ 40 MG/0.4 ML SYR SQ SCH (14:17)
[2023-06-25] MEDS: PROMETHAZINE HCL 6.25 MG in SODIUM CHLORIDE 0.9% 50 ML IV PRN (14:18)
[2023-06-25] MEDS: INSULIN ASPART PER UNIT CHARGE SC SCH (14:18)
[2023-06-25] MEDS: PROMETHAZINE 12.5 MG/50.5 ML NSS IV ONE (15:01)
[2023-06-25] MEDS: HYDROmorphone INJ 0.5 MG/0.5 ML SYR IV PRN (15:57)
--- NOTE | 2023-06-25 17:04 | Communication Note ---
Date of Service: June 25, 2023 Patient seen and examined at bedside. She is comfortably lying in the bed; not in distress. She continues to report nausea and vomiting. Discussed use of Zyprexa for symptom control; he is agreeable. She reports that she has not been taking Zyprexa or dexamethasone at home. Only medications she is taking is antiemetics and insulin. On physical exam; Constitutional: WD/WN, vitals as above, NAD, sitting up in bed, pleasant, conversing easily Respiratory: normal respiratory effort, lungs clear to auscultation, no wheeze, rales, rhonchi. Normal insp/exp effort, no accessory muscle use Cardiovascular: RRR, no murmur, no edema Vessels: no JVD or carotid bruit Chest: normal inspection of chest Abdomen: normal bowel sounds, soft, nontender, no hepatosplenomegaly Musculoskeletal: no cyanosis or clubbing, extremities motor strength 5/5 Skin: no rashes, warm and dry normal turgor Neurologic: PERRL, EOMI, accommodation nl, no face palsy, no dysarthria CN's II- XI intact bilaterally and moves all extremities Psychiatric: A+Ox3, euthymic affect
[2023-06-25] MEDS: OLANZapine 5 MG TABLET PO SCH (20:17)
[2023-06-25] MEDS ORDERED: OLANZapine 10 MG TAB PO SCH (21:00)
[2023-06-26] MEDS: INSULIN ASPART PER UNIT CHARGE SC SCH
[2023-06-26 06:59] LABS: BUN Creatinine Ratio 16.2 (10-20); Creatinine Clr Calc Pharmacy 111.4 ml/min; Est GFR (African American) 112.6 ml/min; Est GFR (Non-African American) 97.2 ml/min; Magnesium 1.6 mg/dl (1.7-2.4); Potassium 3.2 mmol/L (3.5-5.1)
[2023-06-26 07:15] LABS: Estimated Average Glucose 220 mg/dl; Hemoglobin A1C 9.3 % (4.5-5.6)
[2023-06-26 07:56] LABS: Hematocrit (blood only) 19.5 % (37.0-47.0); Hemoglobin 6.8 g/dl (12.0-16.0); White Blood Count 0.99 K/ul (4.8-10.8)
[2023-06-26 07:57] LABS: Mean Corpuscular Hemoglobin 29.6 pg (25.0-34.0); Mean Corpuscular Hgb Conc 34.9 g/dL (32.0-36.0); Mean Corpuscular Volume 84.8 fL (80.0-100.0); Platelet Count 192 K/uL (130-400); RDW Coefficient of Variation 15.9 % (11.5-14.5); RDW Standard Deviation 48.6 fL (36.4-46.3)
[2023-06-26] MEDS ORDERED: SODIUM CHLORIDE 0.9% 250 ML IV PRN (08:03)
[2023-06-26 08:36] LABS: Basophils # (auto) 0.01 K/uL (0.00-0.20); Immature Granulocytes # (auto) 0.01 K/uL (0.01-0.20); Lymphocytes # (auto) 0.75 K/uL (1.20-3.40); Lymphocytes % (auto) 75.8 %; Monocytes # (auto) 0.11 K/uL (0.11-0.59); Monocytes % (auto) 11.1 %; Neutrophils # (auto) 0.11 K/uL (1.40-6.50); Neutrophils % (auto) 11.1 %
[2023-06-26 08:37] LABS: Anisocytosis Present; Basophilic Stippling Occasional; Tear Drop Cells Occasional
[2023-06-26] MEDS: PANTOprazole 40 MG in SYRINGE 0 ML IV SCH (09:12)
[2023-06-26] MEDS: LANTUS PER UNIT CHARGE SQ SCH ×2 (09:24→21:28)
--- NOTE | 2023-06-26 14:14 | Pharmacy Report ---
Pharmacy Glycemic Short Note 2 - Date of Service June 26, 2023 - Glycemic Short BSG Results (Last 24 hours): 06/25/23 06/25/23 06/25/23 16:40 16:46 20:21 Glucose POC Glucose 313 H* 293 H 292 H 06/25/23 06/26/23 06/26/23 23:52 03:49 06:08 Glucose 181 H POC Glucose 240 H 248 H 06/26/23 06/26/23 07:38 11:39 Glucose POC Glucose 183 H 236 H OUTPATIENT ANTIDIABETIC REGIMEN: * Lantus 30 units SQ BID * Novolog SSI * Dexamethasone 4mg PO BID * HbA1c: 9.3% (02/08/23) -- updated A1c pending w/ AM labs ASSESSMENT: 06/25 * Patient received total of 69 units of insulin yesterday, of which 40 units were basal insulin. * Fasting BSG 181 mg/dL - did receive ~10 units correctional insulin overnight. Will increase basal closer to home dose. Per provider notes, patient was not taking dexamethasone 4 mg bid dosing at home / order dc * Plan to tighten CF/CR this AM 06/24 * Ms Vega is a 48yo diabetic F admitted with N/V, hyperglycemia. PMH is significant for metastatic breast CA, currently receiving chemotherapy. * Pt is ordered PO dexamethasone, which she was taking as an outpt prior to admission. * Pt is currently ordered a clear liquid diet. * Pharmacy will continue to follow and adjust insulin regimen as indicated during hospital stay. PLAN FOR INPATIENT GLYCEMIC CONTROL: * Basal insulin * Lantus 30 units this AM * Lantus 20-30 units Qpm * Bolus insulin * NovoLog per scale ACHS or Q6hrs while NPO * Goal Range: Low 110 mg/dL - High 140 mg/dL * Correction Factor: 20 mg/dL/unit * Nutritional / Prandial insulin per carb ratio of 1 unit per 6 grams CHO consumed
--- NOTE | 2023-06-26 14:44 | Hospitalist Progress Note ---
Date of Service June 26, 2023 Assessment & Plan (1) Nausea & vomiting: Plan: 48-year-old female with past medical history significant for metastatic breast cancer, diabetes, on pain medication, history of hypercalcemia who is getting chemotherapy for breast cancer and had fourth cycle of chemo last Wednesday comes because of severe nausea and vomiting starting 1 day prior to presentation. Chemotherapy induced nausea and vomiting History of metastatic breast cancer Started on supportive care with IV fluids Continue antiemetics; olanzapine added Encourage oral intake Patient was prescribed dexamethasone by palliative care; she reports that she is currently not taking it. Neutropenia Anemia Likely secondary to chemotherapy WBC count of 990 with ANC of 110. Hemoglobin dropped to 6.8 Will transfuse 1 unit of packed RBC Continue to monitor CBC daily Type II diabetes Hyperglycemia On long-acting Lantus and NovoLog Glycemic pharmacy consult Close monitor DVT prophylaxis On Lovenox Disposition Medical floor Full code Time spent evaluating patient, direct bedside care, chart review, placing orders, interpretation of diagnostic studies, discussion with consultants, patient, and family members, as well as other required patient management activities is 50 minutes Please note the above document was generated using voice recognition software. It may contain grammatical, syntax or spelling errors. Any formal questions or concerns about the content, text or information contained within the body of this dictation should be directly addressed to the provider for clarification Admission and Anticipated Discharge Date Admission Date: June 25, 2023 Subjective Patient seen and examined at bedside. She reports that her nausea is better. She reports that she is no longer vomiting. Review of Systems Review of Systems: All systems reviewed & are unremarkable except as noted in Subjective Physical Exam Physical Exam: Constitutional: Alert oriented x 3; not in distress. Appears slightly tired. Respiratory: normal respiratory effort, lungs clear to auscultation, no wheeze, rales, rhonchi. Normal insp/exp effort, no accessory muscle use Cardiovascular: RRR, no murmur, no edema Vessels: no JVD or carotid bruit Chest: Port-A-Cath in place Abdomen: normal bowel sounds, soft, nontender, no hepatosplenomegaly Musculoskeletal: no cyanosis or clubbing, extremities motor strength 5/5 Skin: no rashes, warm and dry normal turgor Neurologic: PERRL, EOMI, accommodation nl, no face palsy, no dysarthria CN's II- XI intact bilaterally and moves all extremities Psychiatric: A+Ox3, euthymic affect Results & Data Results & Data Vital Signs (Past 12 Hours) Vital Signs Temp Pulse Pulse Resp BP BP Pulse Ox 06/26/23 12:58 36.9 C 98 H 16 128/80 96 06/26/23 11:58 36.9 C 93 H 18 141/78 H 95 06/26/23 10:58 37 C 93 H 16 99/61 L 93 06/26/23 10:28 36.9 C 98 H 16 105/65 93 06/26/23 10:15 37 C 100 H 16 103/65 95 06/26/23 09:50 36.7 C 96 H 18 109/68 98 06/26/23 07:39 37 C 95 H 16 112/74 96 O2 Del Method 06/26/23 12:58 06/26/23 11:58 06/26/23 10:58 06/26/23 10:28 06/26/23 10:15 06/26/23 09:50 06/26/23 07:39 Room Air
[2023-06-26] MEDS: POTASSIUM CHLORIDE / WTR 10 MEQ/100 ML PLCT IV SCH (15:28)
[2023-06-26] MEDS: MAGNESIUM SULFATE / D5W 1 GM/100 ML BAG IV SCH (15:28)
[2023-06-27] MEDS: INSULIN ASPART PER UNIT CHARGE SC SCH (00:10)
[2023-06-27 06:33] LABS: Hematocrit (blood only) 21.8 % (37.0-47.0); Hemoglobin 7.6 g/dl (12.0-16.0); Mean Corpuscular Hemoglobin 29.3 pg (25.0-34.0); Mean Corpuscular Hgb Conc 34.9 g/dL (32.0-36.0); Mean Corpuscular Volume 84.2 fL (80.0-100.0); Mean Platelet Volume 9.2 fL (9.4-12.4); Nucleated RBC # (auto) 0.02 K/uL (0.00-0.12); Nucleated RBC % (auto) 1.6 %; Platelet Count 209 K/uL (130-400); RDW Coefficient of Variation 16.4 % (11.5-14.5); RDW Standard Deviation 49.1 fL (36.4-46.3); Red Blood Count 2.59 M/uL (4.20-5.40); White Blood Count 1.23 K/ul (4.8-10.8)
[2023-06-27 06:48] LABS: BUN Creatinine Ratio 10.4 (10-20); Calcium 7.4 mg/dl (8.6-10.3); Creatinine Clr Calc Pharmacy 107.1 ml/min; Est GFR (African American) 107.3 ml/min; Est GFR (Non-African American) 92.6 ml/min; Potassium 3.6 mmol/L (3.5-5.1)
[2023-06-27 07:27] LABS: Basophils # (auto) 0.02 K/uL (0.00-0.20); Basophils % (auto) 1.6 %; Immature Granulocytes # (auto) 0.01 K/uL (0.01-0.20); Immature Granulocytes % (auto) 0.8 %; Lymphocytes # (auto) 0.84 K/uL (1.20-3.40); Lymphocytes % (auto) 68.3 %; Monocytes # (auto) 0.14 K/uL (0.11-0.59); Monocytes % (auto) 11.4 %; Neutrophils # (auto) 0.22 K/uL (1.40-6.50); Neutrophils % (auto) 17.9 %; RBC Morphology Unremarkable
--- NOTE | 2023-06-27 10:18 | Discharge Summary ---
Date of Service June 27, 2023 Admission HPI Per Admitting Provider 48-year-old female with past medical history significant for metastatic breast cancer, diabetes, on pain medication, history of hypercalcemia who is getting chemotherapy for breast cancer and had fourth cycle of chemo last Wednesday comes because of severe nausea and vomiting starting yesterday. Says she is not able to keep anything down. Denies any chest pain or shortness of breath. No abdominal pain. Somewhat constipated. Micturating okay. Ambulating okay. No fevers. No cough. No runny nose or sore throat. Hemodynamics are okay. Past medical's. As mentioned above Past surgical history. History of tubal ligation. Port-A-Cath placement. Left excisional debridement of buttock wound. Tooth extraction. Endometrial ablation. History of bowel resection. Left thoracoscopy with wedge resection of left lower lobe. Dilatation curettage. History of hernia repair. x 3. Left breast lumpectomy. Family history. Father diabetes. [place]. Hypertension stroke. Brother had diabetes. [place]. Pacemaker. Hypertension. Mother had diabetes. Heart disease. Aortic valve replacement. Social history. Former smoker. No alcohol use. No drug use. Admission Exam Per Admitting Provider General- Not in distress Head- atraumatic Eyes- PERRL. ENT- oropharynx clear Neck- supple, no JVD. Lungs- clear to auscultation no wheezing or crackles Heart- regular rhythm; no murmur, no gallop. Abdomen- normal bowel sounds, soft, nontender, no distension Extremities- no pretibial edema, no erythema seen. Neuro- alert, oriented PERRL, no facial palsy; no dysarthria; moves extremities. Skin- warm & dry Principal Diagnosis Chemotherapy-induced nausea and vomiting Neutropenia, anemia secondary to chemotherapy Discharge Exam Constitutional: Alert oriented x 3; not in distress. Comfortable; not in distress. Respiratory: normal respiratory effort, lungs clear to auscultation, no wheeze, rales, rhonchi. Normal insp/exp effort, no accessory muscle use Cardiovascular: RRR, no murmur, no edema Vessels: no JVD or carotid bruit Chest: Port-A-Cath in place Abdomen: normal bowel sounds, soft, nontender, no hepatosplenomegaly Musculoskeletal: no cyanosis or clubbing, extremities motor strength 5/5 Skin: no rashes, warm and dry normal turgor Neurologic: PERRL, EOMI, accommodation nl, no face palsy, no dysarthria CN's II- XI intact bilaterally and moves all extremities Psychiatric: A+Ox3, euthymic affect Discharge Data Allergies Allergy/AdvReac Type Severity Reaction Status Date / Time No Known Allergies Allergy Verified 04/19/23 17:28 Consultations 06/25/23 05:57 ED Decision to Admit Stat Hospital Course (1) Nausea & vomiting: Chemotherapy induced nausea and vomiting History of metastatic breast cancer Neutropenia Anemia 48-year-old female with past medical history significant for metastatic breast cancer, diabetes, on pain medication, history of hypercalcemia who is getting chemotherapy for breast cancer and had fourth cycle of chemo 5 days ago presented to the hospital with severe nausea and vomiting for 1 day. She was found to have leukopenia, anemia and hyperglycemia. She was admitted to medical floor; was given IV fluids and supportive care for nausea/vomiting. She needed 1 unit of transfusion of packed RBC on June 26, 2023 as her hemoglobin was less than 7. Her leukopenia improved on subsequent labs. Her nausea/vomiting significantly improved with initiation of Zyprexa at night. She was prescribed Zyprexa to be taken at night. Patient did not have any nausea/vomiting at the time of the discharge. Patient to follow-up with her PCP and oncology as outpatient. Please note the above document was generated using voice recognition software. It may contain grammatical, syntax or spelling errors. Any formal questions or concerns about the content, text or information contained within the body of this dictation should be directly addressed to the provider for clarification Total Time Total Time Spent Total Time Spent (In Minutes): 35 Total Time Includes: Examination of the Patient, Discharge Planning, Medication Reconciliation, Communication With Other Providers and Other Discharge Plan Discharge Items Patient Disposition: Home - Self-Care Reason For Visit: n/v and hyperglycemia Discharge Diagnosis: Chemotherapy induced nausea and vomiting Neutropenia Anemia Likely secondary to chemotherapy Activity: Resume your previous activity Non-emergency contact: Primary Care Provider Call non-emergency contact if: you have any medication questions and your symptoms worsen Follow-up/Referrals: Adonis Lawler CRNP [Primary Care Provider] - Diet: Regular Addtl Attending Provider Instructions: You were admitted to the hospital due to chemotherapy induced nausea and vomiting. You are prescribed Zyprexa 5 mg to be taken at night. Please slat pickler the medication for your pharmacy and take it regularly at night as it will help you with the nausea and vomiting. You were transfused 1 unit of blood on June 26, 2023 for low hemoglobin. Please follow-up with your oncologist and primary care doctor. Pending Studies at Discharge: No Stand-Alone Forms: [facility], Smoking Cessation Medications and DC Order Prescriptions: New olanzapine 5 mg Tablet 5 mg PO HS 30 Days Qty: 30 0RF Continued ondansetron 8 mg tablet,disintegrating 8 mg translingual BID PRN (Reason: Nausea And Vomiting) insulin aspart U-100 [Novolog FlexPen U-100 Insulin] 100 unit/mL (3 mL) insulin pen SUBCUT AC insulin glargine [Lantus Solostar U-100 Insulin] 100 unit/mL (3 mL) insulin pen 30 unit SUBCUT BID oxycodone 10 mg tablet 10 mg PO Q4H PRN (Reason: Pain (Scale Score 4-6)) Rx Instructions: oxycodone 10mg 1-2 tab po q4hrs prn severe pain Discharge Orders: Discharge Order (Routine); Ordered 06/27/23 Ordered By: Tree Sanchez/Other Patient Handouts: High Blood Sugar (Hyperglycemia) Admission Data Admit Date/Time: 06/25/23 08:03 Attending Provider: Tree Oquendo Admit Provider: Elder Bose Primary Care Provider: Adonis Lawler Other Providers: Elder Bose
[2023-06-27] MEDS ORDERED: HEPARIN 100 UNIT/ML 5ML FLUSH ONE (12:38)
== END 2023-06-27 14:06 | disposition home or self-care (01) | DRG 392 ==
LOC: ED 01:33 → EDINP 08:03 → INTOOBSV 08:03 → 3N 10:31

== ENCOUNTER 2023-07-13 10:02 | Inpatient (IN) ==
[2023-07-13] MEDS: SODIUM CHLORIDE 0.9% 1,000 ML IV SCH (10:52)
[2023-07-13] MEDS: ONDANSETRON INJ 2 MG/ML 2 ML VIAL IV STA (11:07)
[2023-07-13] MEDS: HYDROmorphone INJ 1 MG/ML SYRINGE IV STA (11:07)
[2023-07-13] MEDS: PROMETHAZINE 12.5 MG/50.5 ML BAG IV STA (11:07)
--- NOTE | 2023-07-13 11:19 | Emergency Department Note ---
Impression & Plan Acute dehydration, Vomiting, Total body pain, Metastatic cancer, Neutropenia, Anemia ED Provider Note NAME: DEMETRIA CHAN AGE: 48 SEX: F : 1975 ARRIVES VIA: Walk-In INFORMANT: [Patient] ED PROVIDER(S): [Brant Smith MD] CHIEF COMPLAINT: Body pain, vomiting HISTORY OF PRESENT ILLNESS: The patient is a 48-year-old female with stage IV metastatic breast cancer. She received chemotherapy yesterday. Since chemotherapy, she has had allover body pain, vomiting. She feels dehydrated. The patient did try some oxycodone at home. She also has tried some Zofran. She has not had any relief. There has been no fever, no cough. She did receive some treatment yesterday before leaving the [facility] center. She was having similar symptoms yesterday right after her chemotherapy infusion. PMHx/PSHx/Social Hx: See Below PHYSICAL EXAM: GENERAL: Patient is in mild distress from pain. HEENT: No acute trauma, normocephalic atraumatic, mucous membranes dry, no nasal congestion. NECK: No stridor, no adenopathy, no meningismus, trachea is midline. LUNGS: Clear to auscultation bilaterally, no wheeze, no rhonchi, breath sounds equal. HEART: Without murmurs gallops or rubs, regular rate and rhythm. ABDOMEN: Soft, nontender, no peritonitis. EXTREMITIES: No cyanosis, full range of motion of all the joints without pain or difficulty. NEUROLOGIC: Oriented x 3, no acute motor or sensory deficits, no focal weakness. SKIN: No jaundice, no diaphoresis. DIFFERENTIAL DIAGNOSIS: Dehydration, chemotherapy reaction, electrolyte imbalance, anemia, UTI, among others. EMERGENCY DEPARTMENT PROCEDURES: MEDICAL DECISION MAKING: The patient has a low white count and hemoglobin, likely from her recent chemotherapy. She was found to be neutropenic. Platelet count was normal. Renal panel testing shows some acidosis and dehydration. There was an anion gap of 17. No acute kidney injury. Glucose was high at 314. Calcium and magnesium were both low. There were some liver enzyme elevations noted. The patient's TSH was high however, the T4 was normal. Cardiac enzyme testing x 1 was not consistent with acute cardiac injury. Chest x-ray shows some chronic change, no pneumonia. On exam, the patient appeared uncomfortable. She appeared dehydrated. The patient was given IV saline, 1 L. She was given IV Phenergan for nausea, IV Zofran for nausea. She was given IV magnesium, IV calcium. She was given IV Dilaudid. The patient does seem to be feeling improved. She is in need of further electrolyte replacement, she requires further hydration and symptom control. She may be in early DKA and could potentially benefit from an insulin drip. I do believe she requires a hospital stay. I did speak with the patient, I spoke with case management, the on-call hospitalist was consulted. Prior/Outside records/notes reviewed: None Imaging/x-ray results per my interpretation: Chest x-ray shows some chronic change. There is evidence for metastasis. No obvious pneumonia. Chronic Medical/Social conditions affecting care: Currently undergoing chemotherapy for metastatic breast cancer. Care/Management discussed with: Case management, the on-call hospitalist. Level of care consideration(s): After review of the information above and other included data: --I believe the patient requires escalation of care to admission Critical Care Note: I have personally spent 45 minutes of critical care time in the direct management of this patient. This includes bedside care, interpretation of diagnostic studies, and testing, discussion with consultants, patient, and family members, and other required patient management activities. This 45 minutes is in excess of all separately billable procedures. DISPOSITION: Admission Past Med/Surg History Problem List DKA (diabetic ketoacidosis) Hypocalcemia Intractable nausea and vomiting Depression Breast cancer metastasized to bone Cancer related pain Hypomagnesemia (Acute) Arthritis Obesity Hypothyroidism Type II diabetes mellitus Medical History DM type 2 (diabetes mellitus, type 2) Breast cancer metastasized to bone History of COVID-19 12/2020 + 12/2021 > residual taste dysfunction and feeling of need to clear throat Bilateral breast cancer Arthritis Liver spots "Mets from cancer" Depression with anxiety Peripheral neuropathy Heart palpitations R/t anxiety per patient History of small bowel obstruction Hx bowel obstruction Hypothyroidism No current meds Surgical History History of tubal ligation Port-A-Cath in place (04/30/22) Insertion Access Port left subclavian with Fluoroscopy(Left) - Chad Banuelos DO History of surgery Left Excisional Debridement of Buttock Wound Nausea and vomiting after administration of anesthetic agent "EXTREME" History of vascular access device PORT INSERTION/REMOVAL History of tooth extraction History of endometrial ablation History of bowel resection D/T BOWEL OBSTRUCTION History of lung surgery Left thoracoscopy with wedge resection left lower lobe Dr. Damico 03/29/2018 History of dilatation and curettage H/O hernia repair Hx of section x3 S/P lumpectomy, left breast LEFT ARM LIMB RESTRICTION Family History Mother , 77yo Diabetes Heart disease Aortic valve replacement Mitral valve calcifications UTI (urinary tract infection) Father , 62yo Diabetes Myocardial infarction Hypertension Stroke Brother Diabetes Myocardial infarction Cardiac stents Pacemaker Hypertension Sister No problems noted. Daughter No problems noted. Son No problems noted. Son No problems noted. 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 How many Children do You have: 3 Feels Safe at Home: Yes Diet: regular caffeine: No during the past year weight has: remained stable Assistive Devices: None Allergies Allergies Allergy/AdvReac Type Severity Reaction Status Date / Time No Known Allergies Allergy Verified 04/19/23 17:28 Home Meds Home Medications Medication Instructions Recorded Confirmed insulin aspart U-100 100 unit/mL 10 sliding scale dose subcut AC 06/25/23 07/13/23 (3 mL) subcutaneous pen (Novolog FlexPen U-100 Insulin aspart) insulin glargine 100 unit/mL (3 30 unit subcut BID 06/25/23 07/13/23 mL) subcutaneous pen (Lantus Solostar U-100 Insulin) ondansetron 8 mg disintegrating 8 mg translingual BID PRN Nausea 06/25/23 07/13/23 tablet And Vomiting Previous Rx's Medication Instructions Recorded oxycodone 20 mg tablet 20 mg PO Q4H PRN severe cancer 07/01/23 breakthru pain 1 month #180 tabs olanzapine 5 mg tablet (Zyprexa) 5 mg PO BID #60 tabs 07/12/23 Results & Data (ED) Vital Signs Vital Signs - 24 hr 07/13/23 10:05 07/13/23 11:14 07/13/23 11:29 Temperature 36.5 C Temperature Source Oral Pulse Rate 111 H 89 85 Pulse Rate from SpO2 Sensor Respiratory Rate 16 26 H Blood Pressure 122/78 Blood Pressure Mean 92 Pulse Oximetry 100 Oxygen Delivery Method Room Air Sepsis Recent Fever Within 48 Hours No Sepsis New/Unexplained Change in Mental Status No Sepsis Action Taken by Nursing No Action Required 07/13/23 11:30 07/13/23 11:51 07/13/23 11:51 Temperature Temperature Source Pulse Rate 90 96 H Pulse Rate from SpO2 Sensor 96 H Respiratory Rate 19 19 Blood Pressure 119/70 Blood Pressure Mean 81 Pulse Oximetry 96 Oxygen Delivery Method Sepsis Recent Fever Within 48 Hours Sepsis New/Unexplained Change in Mental Status Sepsis Action Taken by Nursing 07/13/23 12:00 07/13/23 12:30 07/13/23 12:54 Temperature Temperature Source Pulse Rate 94 H 90 89 Pulse Rate from SpO2 Sensor 94 H 89 88 Respiratory Rate 21 21 17 Blood Pressure Blood Pressure Mean Pulse Oximetry 95 96 96 Oxygen Delivery Method Sepsis Recent Fever Within 48 Hours Sepsis New/Unexplained Change in Mental Status Sepsis Action Taken by Nursing 07/13/23 12:54 07/13/23 13:00 07/13/23 13:00 Temperature Temperature Source Pulse Rate 90 Pulse Rate from SpO2 Sensor 89 Respiratory Rate 19 Blood Pressure 130/73 136/78 Blood Pressure Mean 84 88 Pulse Oximetry 97 Oxygen Delivery Method Sepsis Recent Fever Within 48 Hours Sepsis New/Unexplained Change in Mental Status Sepsis Action Taken by Nursing 07/13/23 13:30 Temperature Temperature Source Pulse Rate 88 Pulse Rate from SpO2 Sensor 88 Respiratory Rate 15 Blood Pressure Blood Pressure Mean Pulse Oximetry 98 Oxygen Delivery Method Sepsis Recent Fever Within 48 Hours Sepsis New/Unexplained Change in Mental Status Sepsis Action Taken by Long Term Medications Current Medication List: was personally reviewed by me Laboratory Data Attestation: I reviewed the patient's lab results. 07/13/23 10:52 07/13/23 10:52 Lab Results 07/13/23 Range/Units 10:52 WBC 1.40 L (4.8-10.8) K/ul RBC 3.15 L (4.20-5.40) M/uL Hgb 9.0 L (12.0-16.0) g/dl Hct 25.9 L (37.0-47.0) % MCV 82.2 (80.0-100.0) fL MCH 28.6 (25.0-34.0) pg MCHC 34.7 (32.0-36.0) g/dL RDW Std Deviation 46.9 H (36.4-46.3) fL RDW Coeff of Joshua 15.9 H (11.5-14.5) % Plt Count 258 (130-400) K/uL MPV 9.3 L (9.4-12.4) fL Immature Gran % (Auto) 6.4 % Neut % (Auto) 42.2 % Lymph % (Auto) 44.3 % Ceiba % (Auto) 6.4 % Eos % (Auto) 0.0 % Baso % (Auto) 0.7 % Neut # (Auto) 0.59 L* (1.40-6.50) K/uL Lymph # (Auto) 0.62 L (1.20-3.40) K/uL Ceiba # (Auto) 0.09 L (0.11-0.59) K/uL Eos # (Auto) 0.00 (0.00-0.50) K/uL Baso # (Auto) 0.01 (0.00-0.20) K/uL Immature Gran # (Auto) 0.09 (0.01-0.20) K/uL Polychromasia 1+ Tear Drop Cells 1+ Sodium 136 (136-145) mmol/L Potassium 3.8 (3.5-5.1) mmol/L Chloride 102 (98-107) mmol/L Carbon Dioxide 17 L (21-32) mmol/L Anion Gap 17 H (3-11) BUN 16 (6-23) mg/dl Creatinine 1.01 (0.6-1.2) mg/dl Est Cr Clr Drug Dosing Not Reportable Est GFR ( Amer) 77.3 ml/min Est GFR (Non-Af Amer) 66.7 ml/min BUN/Creatinine Ratio 15.8 (10-20) Glucose 314 H* (70-99(Fasting)) mg/dl Calcium 7.2 L (8.6-10.3) mg/dl Magnesium 1.4 L (1.7-2.4) mg/dl Total Bilirubin 1.3 H (0.2-1.0) mg/dl AST 37 (13-39) U/L ALT 23 (7-52) U/L Alkaline Phosphatase 182 H (34-104) U/L Total Creatine Kinase 49 (26-192) U/L Troponin I High Sens 5.6 (0-14) pg/ml Total Protein 7.2 (6.0-8.3) gm/dl Albumin 3.9 (3.4-5.0) gm/dl Globulin 3.3 (2.5-4.0) gm/dl Albumin/Globulin Ratio 1.2 (0.9-2) TSH 4.730 H (0.300-4.500) uIu/ml Free T4 0.71 (0.61-1.60) ng/dl Administered Medications Hydromorphone HCl (Hydromorphone Inj 0.5 Mg/0.5 Ml Syr) 0.5 mg IV Q15M PRN PRN Reason: Pain Stop: 07/27/23 10:55 Last Admin: 07/13/23 14:00 Dose: 0.5 mg Documented By: ACC Discontinued Medications Hydromorphone HCl (Hydromorphone Inj 1 Mg/Ml Syringe) 1 mg IV NOW STA Stop: 07/13/23 10:57 Last Admin: 07/13/23 11:07 Dose: 1 mg Documented By: ACC Sodium Chloride (Nss) 1,000 mls @ 999 mls/hr IV .Q1H1M JESSE Stop: 07/13/23 11:15 Last Infusion: 07/13/23 13:05 Dose: Infused Documented By: Admin: 07/13/23 10:52 Dose: 999 mls/hr Documented By: AYSE Lactated Ringer's (Lr) 1,000 mls @ 999 mls/hr IV .Q1H1M ONE Stop: 07/13/23 11:56 Last Admin: 07/13/23 12:56 Dose: 999 mls/hr Documented By: ACC Promethazine HCl (Phenergan) 12.5 mg in 50.5 mls @ 202 mls/hr IV NOW STA Stop: 07/13/23 11:10 Last Infusion: 07/13/23 13:05 Dose: Infused Documented By: Admin: 07/13/23 11:07 Dose: 202 mls/hr Documented By: ACC Calcium Gluconate () 1,000 mg in 60 mls @ 240 mls/hr IV NOW STA Stop: 07/13/23 11:59 Last Infusion: 07/13/23 13:05 Dose: Infused Documented By: Admin: 07/13/23 12:13 Dose: 240 mls/hr Documented By: ACC Magnesium Sulfate/Dextrose (Magnesium Sulfate / D5w) 1 gm in 100 mls @ 100 mls/hr IV Q1H JESSE Stop: 07/13/23 13:44 Last Admin: 07/13/23 14:01 Dose: 100 mls/hr Documented By: Infusion: 07/13/23 13:56 Dose: Infused Documented By: Admin: 07/13/23 12:56 Dose: 100 mls/hr Documented By: ACC Ondansetron HCl (Ondansetron Inj 2 Mg/Ml 2 Ml Vial) 4 mg IV NOW STA Stop: 07/13/23 10:57 Last Admin: 07/13/23 11:07 Dose: 4 mg Documented By: ACC Imaging Data Radiologist's Impression: Chest X-Ray 07/13/23 10:15 XR chest 1V portable HISTORY: 48 years-old Female weakness COMPARISON: 05/23/2023 TECHNIQUE: AP view the chest FINDINGS: Cardiac silhouette is enlarged. Limited exam secondary to patient rotation. Left subclavian [id number] catheter. No pneumothorax or pleural effusion. Peripheral airspace opacities within the right mid lung and right lung base redemonstrated. Multifocal skeletal metastasis are again seen. Chronic pathologic rib fractures. IMPRESSION: 1. Ill-defined peripheral consolidative opacities within the right mid lung and right lung base have mildly worsened from the 05/23/2023 exam. 2. Multifocal skeletal metastasis are demonstrated. ACT 112: Negative or not required by law. The above report was generated using voice recognition software. It may contain grammatical, syntax or spelling errors. Electronically signed by: Ruddy Chen M.D. 07/13/2023 11:26 AM Discharge Plan Visit Data Chief Complaint: Illness Stated Complaint: BODY PAIN/CHEMO 07/12/23/VOMITING ED Provider: Brant Smith Discharge Problem: Acute dehydration, Vomiting, Total body pain, Metastatic cancer, Neutropenia, Anemia Patient Disposition: Admitted As Inpatient Condition: Fair Forms Stand Alone Forms: My [facility] [employer] Prescriptions Prescriptions: No Action olanzapine [Zyprexa] 5 mg tablet 5 mg PO BID Qty: 60 2RF oxycodone 20 mg tablet 20 mg PO Q4H PRN (Reason: severe cancer breakthru pain) 30 Days Qty: 180 0RF ondansetron 8 mg tablet,disintegrating 8 mg translingual BID PRN (Reason: Nausea And Vomiting) insulin aspart U-100 [Novolog FlexPen U-100 Insulin] 100 unit/mL (3 mL) insulin pen 10 sliding scale dose SUBCUT AC Rx Instructions: fill history: 10 units subcut TID before meals insulin glargine [Lantus Solostar U-100 Insulin] 100 unit/mL (3 mL) insulin pen 30 unit SUBCUT BID Referrals Referrals: Adonis Lawler CRNP [Primary Care Provider] - Discharge Problem: Vomiting Qualifiers: Vomiting type: unspecified Nausea presence: with nausea Qualified Code(s): R 11.2 - Nausea with vomiting, unspecified Metastatic cancer Qualifiers: Area of secondary neoplastic involvement: unspecified site Qualified Code(s): C 79.9 - Secondary malignant neoplasm of unspecified site Neutropenia Qualifiers: Neutropenia type: secondary to cancer chemotherapy Qualified Code(s): D70.1 - Agranulocytosis secondary to cancer chemotherapy; T45.1X5A - Adverse effect of antineoplastic and immunosuppressive drugs, initial encounter Anemia Qualifiers: Anemia type: unspecified type Qualified Code(s): D64.9 - Anemia, unspecified
--- NOTE | 2023-07-13 11:29 | XRay Report ---
XR chest 1V portable HISTORY: 48 years-old Female weakness COMPARISON: 05/23/2023 TECHNIQUE: AP view the chest FINDINGS: Cardiac silhouette is enlarged. Limited exam secondary to patient rotation. Left subclavian Infuse-a- Port catheter. No pneumothorax or pleural effusion. Peripheral airspace opacities within the right mi d lung and right lung base redemonstrated. Multifocal skeletal metastasis are again seen. Chronic pat hologic rib fractures. IMPRESSION: 1. Ill-defined peripheral consolidative opacities within the right mid lung and right lung base have mildly worsened from the 05/23/2023 exam. 2. Multifocal skeletal metastasis are demonstrated. ACT 112: Negative or not required by law. The above report was generated using voice recognition software. It may contain grammatical, syntax o r spelling errors. Electronically signed by: Ruddy Chen M.D. 07/13/2023 11:26 AM
[2023-07-13 11:42] LABS: Albumin Level 3.9 gm/dl (3.4-5.0); Anion Gap 17 (3-11); Bilirubin,Total 1.3 mg/dl (0.2-1.0); Calcium 7.2 mg/dl (8.6-10.3); Carbon Dioxide 17 mmol/L (21-32); Chloride 102 mmol/L (98-107); Magnesium 1.4 mg/dl (1.7-2.4); Potassium 3.8 mmol/L (3.5-5.1); Sodium 136 mmol/L (136-145)
[2023-07-13 11:50] LABS: Alanine Aminotransferase 23 U/L (7-52); Albumin Globulin Ratio 1.2 (0.9-2); Alkaline Phosphatase 182 U/L (34-104); Aspartate Aminotransferase 37 U/L (13-39); BUN Creatinine Ratio 15.8 (10-20); Blood Urea Nitrogen 16 mg/dl (6-23); Creatine Kinase 49 U/L (26-192); Est GFR (African American) 77.3 ml/min; Est GFR (Non-African American) 66.7 ml/min; Globulin 3.3 gm/dl (2.5-4.0); Glucose 314 mg/dl (70-99(Fasting)); Total Protein 7.2 gm/dl (6.0-8.3); Troponin I High Sensitivity 5.6 pg/ml (0-14)
[2023-07-13 12:02] LABS: Hematocrit (blood only) 25.9 % (37.0-47.0); Mean Corpuscular Hemoglobin 28.6 pg (25.0-34.0); Mean Corpuscular Hgb Conc 34.7 g/dL (32.0-36.0); Mean Corpuscular Volume 82.2 fL (80.0-100.0); Mean Platelet Volume 9.3 fL (9.4-12.4); Platelet Count 258 K/uL (130-400); RDW Coefficient of Variation 15.9 % (11.5-14.5); RDW Standard Deviation 46.9 fL (36.4-46.3); Red Blood Count 3.15 M/uL (4.20-5.40)
[2023-07-13] MEDS: CALCIUM GLUCONATE 1,000 MG/60 ML BAG IV STA (12:13)
[2023-07-13 12:31] LABS: Basophils # (auto) 0.01 K/uL (0.00-0.20); Basophils % (auto) 0.7 %; Immature Granulocytes # (auto) 0.09 K/uL (0.01-0.20); Immature Granulocytes % (auto) 6.4 %; Lymphocytes # (auto) 0.62 K/uL (1.20-3.40); Lymphocytes % (auto) 44.3 %; Monocytes # (auto) 0.09 K/uL (0.11-0.59); Monocytes % (auto) 6.4 %; Neutrophils # (auto) 0.59 K/uL (1.40-6.50); Neutrophils % (auto) 42.2 %; Polychromasia 1+; Tear Drop Cells 1+
[2023-07-13 12:38] LABS: T4 Free Thyroxine 0.71 ng/dl (0.61-1.60)
[2023-07-13] MEDS: LACTATED RINGER'S 1,000 ML IV ONE (12:56)
[2023-07-13] MEDS: MAGNESIUM SULFATE / D5W 1 GM/100 ML BAG IV SCH (12:56)
[2023-07-13] MEDS ORDERED: PHARMACY GLYCEMIC MGMT CONSULT PRN (13:46)
[2023-07-13] MEDS ORDERED: STAT IV Infusion **Titration per Protocol STA (13:46)
[2023-07-13] MEDS ORDERED: PENDING 1/2NSS+40mEq KCL IVF SCH (14:00)
[2023-07-13] MEDS: HYDROmorphone INJ 0.5 MG/0.5 ML SYR IV PRN (14:00)
--- NOTE | 2023-07-13 14:18 | History & Physical Report ---
Date of Service July 13, 2023 Assessment & Plan (1) Type II diabetes mellitus: (2) DKA (diabetic ketoacidosis): Plan: Admit to telemetry Patient presenting from home with reports of intractable nausea and vomiting and generalized pain. History of metastatic breast cancer, currently on chemotherapy, receiving treatment yesterday. Patient reports she has been unable to take her insulin for 2 days due to illness. In the ED, labs suggesting DKA with glucose 314, CO2 17, anion gap 17. VBG is pending IVF, insulin drip, serial labs as per protocol A1c 9.3 05/2023 (3) Intractable nausea and vomiting: Plan: Likely multifactorial due to underlying malignancy, chemotherapy, DKA Zofran typically has not been effective for patient in the past Received promethazine in the ED with improvement in symptoms, will continue with as needed promethazine Continue home olanzapine (4) Neutropenia: Plan: Secondary to chemo WBC 1.4K, ANC 590 Afebrile, no obvious signs of infection at this time, UA pending Monitor CBC, low threshold for antibiotics (5) Hypocalcemia: (6) Hypomagnesemia: Plan: Ca +7.2, Mg +1.4 Replace, follow electrolytes (7) Cancer related pain: Plan: Continue home oxycodone 20 mg for moderate pain, will add IV Dilaudid for severe pain Patient was to start scheduled morphine 30 mg every 8 hours however she reports that she is awaiting insurance approval Palliative consult, patient well known to Kristan Limon DNP (8) Breast cancer metastasized to bone: Plan: Follows with Dr. Vazquez at [facility] (I notified him of admission) Currently receiving Eribulin, last infusion 07/11 DVT PROPHYLAXIS SQ Lovenox Patient seen in collaboration with Dr. Magallanes. I spent a total of 75 minutes coordinating, documenting, and providing care for this patient excluding time spent in the performance of separately billed services. This included personally reviewing all current laboratories and imaging studies, medication reconciliation, outpatient chart review, and discussion with specialists. History of Present Illness Chief Complaint: Nausea, vomiting, generalized pain Primary Care Provider: CONSTANTINO Reid 48-year-old female with PMH metastatic breast cancer on chemotherapy, DM type II on insulin, and other problems listed below who presents to the ED for evaluation of nausea, vomiting, generalized pain. History is obtained from the patient and review of recent inpatient records. Patient recently admitted to [facility] 06/24 through 06/26 for intractable nausea and vomiting secondary to chemotherapy.Patient reports she had chemotherapy yesterday. She is currently receiving Eribulin under the care of Dr. Vazquez at the [facility]. Patient reports multiple episodes of vomiting and constant nausea. She reports generalized pain. States that she has not taken her insulin in 2 days. Denies fevers and chills. No abdominal pain. Denies hematemesis, coffee-ground emesis, bright red bleeding per rectum. No diarrhea. She denies chest pain, shortness of breath, palpitations. No lightheadedness, dizziness, diaphoresis, syncopal events. Denies urinary symptoms. In the ED, labs show WBC 1.4K, Hgb 9.0, ANC 590, Na+ 136, CO2 17, anion gap 17, glucose 314, calcium 7.2, Mg +1.4. Patient was given calcium and magnesium supplementation, she also received IVF, IV promethazine, IV Dilaudid. Allergies Allergy/AdvReac Type Severity Reaction Status Date / Time No Known Allergies Allergy Verified 04/19/23 17:28 Home Medications Medication Instructions Recorded Confirmed Type insulin aspart U-100 100 unit/mL 10 sliding scale dose subcut AC 06/25/2306/29 History (3 mL) subcutaneous pen (Novolog FlexPen U-100 Insulin aspart) insulin glargine 100 unit/mL (3 30 unit subcut BID 06/25/23 07/13/23 History mL) subcutaneous pen (Lantus Solostar U-100 Insulin) ondansetron 8 mg disintegrating 8 mg translingual BID PRN Nausea 06/25/23 07/13/23 History tablet And Vomiting oxycodone 20 mg tablet 20 mg PO Q4H PRN severe cancer 07/01/23 07/13/23 Rx breakthru pain 1 month #180 tabs olanzapine 5 mg tablet (Zyprexa) 5 mg PO BID #60 tabs 07/12/23 07/13/23 Rx Past Med/Surg History Problem List (Updated 07/13/23 @ 14:24 by CONSTANTINO Grant) Neutropenia DKA (diabetic ketoacidosis) Hypocalcemia Intractable nausea and vomiting Depression Breast cancer metastasized to bone Cancer related pain Hypomagnesemia (Acute) Arthritis Obesity Hypothyroidism Type II diabetes mellitus Medical History DM type 2 (diabetes mellitus, type 2) Breast cancer metastasized to bone History of COVID-19 12/2020 + 12/2021 > residual taste dysfunction and feeling of need to clear throat Bilateral breast cancer Arthritis Liver spots "Mets from cancer" Depression with anxiety Peripheral neuropathy Heart palpitations R/t anxiety per patient History of small bowel obstruction Hx bowel obstruction Hypothyroidism No current meds Surgical History History of tubal ligation Port-A-Cath in place (04/30/22) Insertion Access Port left subclavian with Fluoroscopy(Left) - Chad Banuelos DO History of surgery Left Excisional Debridement of Buttock Wound Nausea and vomiting after administration of anesthetic agent "EXTREME" History of vascular access device PORT INSERTION/REMOVAL History of tooth extraction History of endometrial ablation History of bowel resection D/T BOWEL OBSTRUCTION History of lung surgery Left thoracoscopy with wedge resection left lower lobe Dr. Damico 03/29/2018 History of dilatation and curettage H/O hernia repair Hx of section x3 S/P lumpectomy, left breast LEFT ARM LIMB RESTRICTION Family History Mother , 77yo Diabetes Heart disease Aortic valve replacement Mitral valve calcifications UTI (urinary tract infection) Father , 62yo Diabetes Myocardial infarction Hypertension Stroke Brother Diabetes Myocardial infarction Cardiac stents Pacemaker Hypertension Sister No problems noted. Daughter No problems noted. Son No problems noted. Son No problems noted. 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 How many Children do You have: 3 Feels Safe at Home: Yes Diet: regular caffeine: No during the past year weight has: remained stable Assistive Devices: None Physical Exam Constitutional: + ill appearing; no acute distress Eyes: PERRL, conjunctivae normal, anicteric sclerae ENMT: external ear and nose normal, oropharynx normal Respiratory: normal respiratory effort, lungs clear to auscultation Cardiovascular: Rate/Rhythm: regular rate and regular rhythm Vessels: normal peripheral pulses Extremities: no edema Gastrointestinal (Abdomen): normal bowel sounds, soft, nontender, no hepatosplenomegaly Musculoskeletal: no cyanosis or clubbing, extremities motor strength 5/5 Skin: no rashes, warm and dry Neurologic: PERRL, EOMI, accommodation nl, no face palsy, no dysarthria Psychiatric: A+Ox3, euthymic affect Results & Data Results & Data Vital Signs (Past 12 Hours) Vital Signs Temp Pulse Resp BP Pulse Ox O2 Del Method 07/13/23 13:30 88 15 98 07/13/23 13:00 136/78 07/13/23 13:00 90 19 97 07/13/23 12:54 130/73 07/13/23 12:54 89 17 96 07/13/23 12:30 90 21 96 07/13/23 12:00 94 H 21 95 07/13/23 11:51 119/70 07/13/23 11:51 96 H 19 96 07/13/23 11:30 90 19 07/13/23 11:29 85 07/13/23 11:14 89 26 H 07/13/23 10:05 36.5 C 111 H 16 122/78 100 Room Air Laboratory Results Short CBC 07/13/23 Range/Units 10:52 WBC 1.40 L (4.8-10.8) K/ul Hgb 9.0 L (12.0-16.0) g/dl Hct 25.9 L (37.0-47.0) % Plt Count 258 (130-400) K/uL BMP 07/13/23 10:52 Sodium 136 Potassium 3.8 Chloride 102 Carbon Dioxide 17 L BUN 16 Creatinine 1.01 Glucose 314 H* Calcium 7.2 L Cardiac Enzymes 07/13/23 Range/Units 10:52 Total Creatine Kinase 49 (26-192) U/L Liver Function 07/13/23 Range/Units 10:52 Total Bilirubin 1.3 H (0.2-1.0) mg/dl AST 37 (13-39) U/L ALT 23 (7-52) U/L Alkaline Phosphatase 182 H (34-104) U/L Albumin 3.9 (3.4-5.0) gm/dl Diagnostic Findings Chest X-Ray 07/13/23 10:15 XR chest 1V portable HISTORY: 48 years-old Female weakness COMPARISON: 05/23/2023 TECHNIQUE: AP view the chest FINDINGS: Cardiac silhouette is enlarged. Limited exam secondary to patient rotation. Left subclavian [id number] catheter. No pneumothorax or pleural effusion. Peripher al airspace opacities within the right mid lung and right lung base redemonstrated. Multifocal skeletal metastasis are again seen. Chronic pathologic rib fractures. IMPRESSION: 1. Ill-defined peripheral consolidative opacities within the right mid lung and right lung base have mildly worsened from the 05/23/2023 exam. 2. Multifocal skeletal metastasis are demonstrated. ACT 112: Negative or not required by law. The above report was generated using voice recognition software. It may contain grammatical, syntax or spelling errors. Electronically signed by: Ruddy Chen M.D. 07/13/2023 11:26 AM Code Status & VTE Plan VTE Prophylaxis Plan VTE Prophylaxis will be ordered: Yes Supervising Physician Co-Signing Physician Notes I have seen and discussed the case with the collaborating advanced practitioner. I agree with the above H&P. I have reviewed and confirmed the patients medical history, the findings on physical examination, and the patients diagnosis and treatment plan with Rhonda MEEKS and agree with the information documented. Ms. Vega is a 48-year-old female with past medical history significant for metastatic breast cancer, diabetes, hypothyroidism history of hypercalcemia, depression with anxiety, peripheral neuropathy, history of small bowel obstruction with recurrence of nausea and vomiting post chemo. Patient also reports feeling too poorly to keep up with insulin. Reports feeling improved since presentation GENERAL APPEARANCE: AxOx4, chronically ill appearing woman HEENT: NC, AT. MMM. EOMI, clear conjunctiva, oropharynx clear. NECK: Supple without lymphadenopathy. No stiffness or restricted ROM. HEART: Normal rate and regular rhythm, normal S1/S1, no m/r/g LUNGS: CTAB, moving air well. No crackles or wheezes are heard. ABDOMEN: Soft, nontender, nondistended with good bowel sounds heard. EXTREMITIES: Without cyanosis, clubbing or edema. NEUROLOGICAL: Grossly nonfocal. Alert and oriented, moving all 4 extremities. CN not formally tested but appear grossly intact. Skin: Warm and dry without any rash. #Anion gap metabolic acidosis, c/f DKA ,likely from vomiting -initially insulin drip in place, IVF Gap closed continue antiemetics #Intractable nausea/vomiting -aloxi 0.25mg IV for nausea per palliative IV Dilaudid, palliative on consult I spent a total of25 minutes coordinating, documenting, and providing care for this patient excluding time spent in the performance of separately billed services. All of the aforementioned completed outside of collaborating with the assigned advanced practitioner for a full treatment plan. I have reviewed the advanced practitioner's documentation, and I agree with, and take responsibility for the plan of care (8) Breast cancer metastasized to bone Laterality: unspecified laterality Qualified Code(s): C50.919 - Malignant neoplasm of unspecified site of unspecified female breast; C79.51 - Secondary malignant neoplasm of bone
[2023-07-13 14:30] LABS: Base Excess VBG -5.2 mEq/L; HCO3 VBG 20 mmol/L; PCO2 VBG 36 mmHg (38-50); PO2 VBG 40 mmHg; pH VBG 7.35 (7.36-7.41)
[2023-07-13] MEDS: INSULIN REGULAR 250 UNITS in SODIUM CHLORIDE 0.9% 247.5 ML IV SCH (14:47)
[2023-07-13] MEDS ORDERED: GLUCAGON FOR INJ 1 MG VIAL IM PRN (15:15)
[2023-07-13] MEDS ORDERED: DEXTROSE 50% 50 ML SYRINGE IV PRN (15:15)
[2023-07-13] MEDS ORDERED: GLUCOSE 10 TAB/TUBE PO PRN (15:15)
[2023-07-13] MEDS ORDERED: GLUCOSE 40% GEL 15 GM TUBE PO PRN (15:15)
[2023-07-13] MEDS ORDERED: CARBOHYDRATES FOR HYPOGLYCEMIA PO PRN (15:15)
--- NOTE | 2023-07-13 15:21 | Pharmacy Report ---
Pharmacy Glycemic Short Note 2 - Date of Service July 13, 2023 - Glycemic Short BSG Results (Last 24 hours): 07/13/23 07/13/23 10:52 14:43 Glucose 314 H* POC Glucose 337 H* OUTPATIENT ANTIDIABETIC REGIMEN: * Lantus 30 units bid, aspart 10 units AC ASSESSMENT: * 48 year old female admitted with DKA - started on insulin infusion per DKA protocol. PMHx significant for DM2, breast cancer, obesity, arthritis. Per notes, was having intractable N/V - likely due to malignancy/chemotherapy and was not taking her insulin for the past 2 days due to illness. PLAN FOR INPATIENT GLYCEMIC CONTROL: * Insulin drip - plan to continue insulin infusion until DKA resolves, will reevaluate in AM
[2023-07-13] MEDS ORDERED: oxyCODONE HCL IR 5 MG TAB (IMMEDIATE RELEASE) PO PRN (15:47)
[2023-07-13] MEDS ORDERED: HYDROmorphone INJ 1 MG/ML SYRINGE IV PRN (15:47)
[2023-07-13 15:58] LABS: BUN Creatinine Ratio 16.1 (10-20); Calcium 6.8 mg/dl (8.6-10.3); Creatinine Clr Calc Pharmacy 96.2 ml/min; Est GFR (African American) 85.4 ml/min; Est GFR (Non-African American) 73.7 ml/min; Magnesium 2.5 mg/dl (1.7-2.4); Phosphorus 2.6 mg/dl (2.5-4.9); Potassium 3.8 mmol/L (3.5-5.1)
[2023-07-13] MEDS: DKA GOAL RANGE 150-250 mg/dl ONE (16:07)
[2023-07-13] MEDS: POTASSIUM CHLORIDE 40 MEQ in SODIUM CHLORIDE 0.45 % 1,000 ML IV SCH (16:07)
[2023-07-13] MEDS: PENDING D5 1/2NS+40mEq KCL IVF SCH (16:07)
[2023-07-13] MEDS: INSULIN ASPART PER UNIT CHARGE SC SCH ×2 (17:21→20:33)
[2023-07-13] MEDS: PALONOSETRON 0.25 MG in SYRINGE 0 ML IV SCH (17:24)
[2023-07-13] MEDS: LANTUS PER UNIT CHARGE SC ONE (17:24)
[2023-07-13] MEDS: DC IV INSULIN INFUSION 1 EA DEVI ONE (17:36)
[2023-07-13] MEDS: HYDROmorphone INJ 1 MG/ML SYRINGE IV PRN (17:56)
[2023-07-13 19:06] LABS: BUN Creatinine Ratio 17.6 (10-20); Calcium 6.7 mg/dl (8.6-10.3); Creatinine Clr Calc Pharmacy 105.3 ml/min; Est GFR (African American) 95.2 ml/min; Est GFR (Non-African American) 82.2 ml/min; Magnesium 1.8 mg/dl (1.7-2.4); Potassium 3.6 mmol/L (3.5-5.1)
[2023-07-13] MEDS: LANTUS PER UNIT CHARGE SC SCH (20:34)
[2023-07-13] MEDS: OLANZapine 5 MG TABLET PO SCH (20:35)
[2023-07-13] MEDS: ENOXAPARIN INJ 40 MG/0.4 ML SYR SQ SCH (20:35)
[2023-07-13] MEDS: ACETAMINOPHEN 325 MG TAB PO PRN (20:40)
[2023-07-13 23:47] LABS: BUN Creatinine Ratio 15.6 (10-20); Calcium 6.6 mg/dl (8.6-10.3); Creatinine Clr Calc Pharmacy 99.5 ml/min; Est GFR (African American) 88.9 ml/min; Est GFR (Non-African American) 76.7 ml/min; Magnesium 1.7 mg/dl (1.7-2.4); Phosphorus 2.2 mg/dl (2.5-4.9); Potassium 3.8 mmol/L (3.5-5.1)
[2023-07-14] MEDS: INSULIN ASPART PER UNIT CHARGE SC SCH (00:16)
[2023-07-14 02:49] LABS: BUN Creatinine Ratio 15.1 (10-20); Calcium 6.4 mg/dl (8.6-10.3); Creatinine Clr Calc Pharmacy 96.2 ml/min; Est GFR (African American) 85.4 ml/min; Est GFR (Non-African American) 73.7 ml/min; Magnesium 1.7 mg/dl (1.7-2.4); Phosphorus 2.2 mg/dl (2.5-4.9); Potassium 3.8 mmol/L (3.5-5.1)
[2023-07-14 06:45] LABS: BUN Creatinine Ratio 15.7 (10-20); Calcium 6.4 mg/dl (8.6-10.3); Creatinine Clr Calc Pharmacy 107.8 ml/min; Est GFR (Non-African American) 84.6 ml/min; Magnesium 1.7 mg/dl (1.7-2.4); Phosphorus 2.2 mg/dl (2.5-4.9); Potassium 3.9 mmol/L (3.5-5.1)
[2023-07-14 07:25] LABS: Hematocrit (blood only) 20.7 % (37.0-47.0); Hemoglobin 7.2 g/dl (12.0-16.0); Mean Corpuscular Hemoglobin 29.3 pg (25.0-34.0); Mean Corpuscular Hgb Conc 34.8 g/dL (32.0-36.0); Mean Corpuscular Volume 84.1 fL (80.0-100.0); Mean Platelet Volume 9.1 fL (9.4-12.4); Platelet Count 192 K/uL (130-400); RDW Coefficient of Variation 16.6 % (11.5-14.5); RDW Standard Deviation 49.2 fL (36.4-46.3); Red Blood Count 2.46 M/uL (4.20-5.40); White Blood Count 0.86 K/ul (4.8-10.8)
[2023-07-14 07:26] LABS: Basophils # (auto) 0.01 K/uL (0.00-0.20); Basophils % (auto) 1.2 %; Immature Granulocytes # (auto) 0.01 K/uL (0.01-0.20); Immature Granulocytes % (auto) 1.2 %; Lymphocytes # (auto) 0.55 K/uL (1.20-3.40); Monocytes # (auto) 0.05 K/uL (0.11-0.59); Monocytes % (auto) 5.8 %; Neutrophils # (auto) 0.24 K/uL (1.40-6.50); Neutrophils % (auto) 27.8 %
[2023-07-14 07:27] LABS: Basophilic Stippling 1+; Polychromasia 1+
--- NOTE | 2023-07-14 10:03 | Pharmacy Report ---
Pharmacy Glycemic Short Note 2 - Date of Service July 14, 2023 - Glycemic Short BSG Results (Last 24 hours): 07/13/23 07/13/23 07/13/23 10:52 14:33 14:43 Glucose 314 H* 335 H* POC Glucose 337 H* 07/13/23 07/13/23 07/13/23 16:08 17:21 18:18 Glucose 115 H POC Glucose 270 H 160 H 07/13/23 07/13/23 07/14/23 20:32 22:37 00:12 Glucose 157 H POC Glucose 136 H 203 H 07/14/23 07/14/23 07/14/23 02:18 03:55 06:01 Glucose 165 H 141 H POC Glucose 177 H 07/14/23 07:16 Glucose POC Glucose 173 H OUTPATIENT ANTIDIABETIC REGIMEN: * Lantus 30 units bid, aspart 10 units AC * A1c 9.3% 06/26/23 ASSESSMENT: 07/13 * Patient transitioned from IV insulin drip protocol to SQ last evening per hospitalist request, labs improved, gap closed. Euglycemic, continue basal bolus and titrate to goal BSG. 07/12 * 48 year old female admitted with DKA - started on insulin infusion per DKA protocol. PMHx significant for DM2, breast cancer, obesity, arthritis. Per notes, was having intractable N/V - likely due to malignancy/chemotherapy and was not taking her insulin for the past 2 days due to illness. PLAN FOR INPATIENT GLYCEMIC CONTROL: * Basal * Lantus 25 units SQ BID (30 units for BSG 180-249mg/dl; 40 units for BSG 250mg/dl or greater) * Prandial/Correctional * NovoLog SC ACHS * CF: 20 mg/dL/unit * Insulin to carb ratio: 1 unit per 6 grams CHO Consumed
[2023-07-14 10:30] LABS: BUN Creatinine Ratio 15.7 (10-20); Calcium 6.4 mg/dl (8.6-10.3); Creatinine Clr Calc Pharmacy 107.8 ml/min; Est GFR (Non-African American) 84.6 ml/min; Magnesium 1.6 mg/dl (1.7-2.4); Phosphorus 2.2 mg/dl (2.5-4.9); Potassium 4.2 mmol/L (3.5-5.1)
--- NOTE | 2023-07-14 10:52 | Palliative Care Consultation ---
Date of Consultation July 14, 2023 Assessment & Plan (1) Cancer related pain: Dilaudid 1mg IV q3h prn HOLD oxycodone for now, given intractable n/v See what she uses in IV meds next 1-2 days while n/v he (2) Intractable nausea and vomiting: Aloxi added for amplifying cancer nausea improvement (3) Therapeutic opioid-induced constipation (OIC): (4) Breast cancer metastasized to bone: Laterality: unspecified laterality Qualified Code(s): C50.919 - Malignant neoplasm of unspecified site of unspecified female breast; C79.51 - Secondary malignant neoplasm of bone (5) Depression: (6) Palliative care by specialist: Plan High frequency/near weekly admissions for n/v, weakness despite dose reductions in chemo x2 + declining PS +worsening malnutrition +worsening depression. Her cancer is not dramatically improving with therapy and she remains very she is fearful of mortality wants everything done to live as long as she can because of the fear of what will happen to and with her children when she dies. She has significant financial concerns - house that they currently rent is financially managed with contribution of her oldest son who lives there as well. She is finding it harder to maintain living in this house herb with the stairs to bedrooms upstairs. She would benefit from closer care coordination outpatient to ?find single floor / ranch style housing option and/or subsidized housing with assistance on site. Thank you for allowing us to participate in the ongoing care of this patient. Please don't hesitate to call or page with any additional concerns. Dr. Luna Limon DNP Director, Palliative Care History of Present Illness Reason for Consultation: ongoing care Attending Physician: Maurisio Pettit MD History of Present Illness Yamilka is a 48yo female with metastatic breast cancer who is well-known to me. She has been admitted for post chemo n/v with weakness and fatigue. Oncology hx: Initially diagnosed in 2016 Progressed to widespread metastatic breast cancer 2018. Recently started Erbulin as 6th line palliative chemo, this has been dose reduced twice due to persistent side effects. C1 given 04/26/2023. Ongoing issues with cancer pain, cancer n/v, weakness, fatigue, malnutrition, psychosocial stress, financial insecurity, family stress. for cancer pain: she is using 60-80mg Oxycodone daily without relief and OxyCon tin is not approved by her insurance. Oxy 60 PO daily = MS 120 PO daily + MS Contin 30mg PO q8h trial - order sent and was approved this past Wednesday afternoon. 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 She has TDF 25 and 75mcg patches at home. At clinic appt this past Wednesday we discussed option of resuming TDF trial at lower dose of 25mcg bc she is having so much n/v. She is averaging an admission almost every week. Allergies Allergy/AdvReac Type Severity Reaction Status Date / Time No Known Allergies Allergy Verified 04/19/23 17:28 Home Medications Medication Instructions Recorded Confirmed Type insulin aspart U-100 100 unit/mL 10 sliding scale dose subcut AC 06/25/23 07/13/23 History (3 mL) subcutaneous pen (Novolog FlexPen U-100 Insulin aspart) insulin glargine 100 unit/mL (3 30 unit subcut BID 06/25/23 07/13/23 History mL) subcutaneous pen (Lantus Solostar U-100 Insulin) ondansetron 8 mg disintegrating 8 mg translingual BID PRN Nausea 06/25/23 07/13/23 History tablet And Vomiting oxycodone 20 mg tablet 20 mg PO Q4H PRN severe cancer 07/01/23 07/13/23 Rx breakthru pain 1 month #180 tabs olanzapine 5 mg tablet (Zyprexa) 5 mg PO BID #60 tabs 07/12/23 07/13/23 Rx Patient History Medical History DM type 2 (diabetes mellitus, type 2) Breast cancer metastasized to bone History of COVID-19 12/2020 + 12/2021 > residual taste dysfunction and feeling of need to clear throat Bilateral breast cancer Arthritis Liver spots "Mets from cancer" Depression with anxiety Peripheral neuropathy Heart palpitations R/t anxiety per patient History of small bowel obstruction Hx bowel obstruction Hypothyroidism No current meds Surgical History History of tubal ligation Port-A-Cath in place (04/30/22) Insertion Access Port left subclavian with Fluoroscopy(Left) - Chad Banuelos DO History of surgery Left Excisional Debridement of Buttock Wound Nausea and vomiting after administration of anesthetic agent "EXTREME" History of vascular access device PORT INSERTION/REMOVAL History of tooth extraction History of endometrial ablation History of bowel resection D/T BOWEL OBSTRUCTION History of lung surgery Left thoracoscopy with wedge resection left lower lobe Dr. Damico 03/29/2018 History of dilatation and curettage H/O hernia repair Hx of section x3 S/P lumpectomy, left breast LEFT ARM LIMB RESTRICTION Family History Mother , 77yo Diabetes Heart disease Aortic valve replacement Mitral valve calcifications UTI (urinary tract infection) Father , 62yo Diabetes Myocardial infarction Hypertension Stroke Brother Diabetes Myocardial infarction Cardiac stents Pacemaker Hypertension Sister No problems noted. Daughter No problems noted. Son No problems noted. Son No problems noted. Other No family history of adverse response to anesthesia Social History Smoking Status: Never smoker Second Hand Exposure: No; Do You Dip or Chew Tobacco: No; Hx Alcohol Use: No Hx Substance Use: Yes Last Used Substance: Unknown Last Used Substance Other:: ONLY USES MEDICAL MARIJUANA (VAPING) FOR PAIN Substance Use Type Other:: medical Preferred Language: Faroese Communication Ability: Effective Visual Impairment: No Limitations Hearing Ability: Normal Retail [employer] Restaurant Required: No Beliefs That Will Affect Care: None marital status: Single Current Living Situation: Family Current Living Situation Comment: lives at home with 3 children 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 How many Children do You have: 3 Other Information That Helps Us Care for You: No Feels Safe at Home: Yes Diet: regular caffeine: No during the past year weight has: remained stable Assistive Devices: None Review of Systems Review of Systems: All systems reviewed & are unremarkable except as noted in Subjective Physical Exam Physical Exam: Chronically ill appearing, tired appearing bitemp wasting, alopecia/chemo related; perrla, EOMIs Neck supple, no stridor, edentulous, MM dry Resp effort WAL, no use of accessory muscles, mild conversational dyspnea S1S2 Abd soft, NTP, BS+ Anterior to lateral left ribs/chest and back +TTP +generalized weakness paraspinal tenderness AAOx3 Tearful throughout this visit, emotional distress+, depressed mood+, anxious+ skin dry Results & Data Vital Signs (Past 12 Hours) Vital Signs Temp Pulse Pulse Resp BP Pulse Ox O2 Del Method 07/14/23 09:50 Room Air 07/14/23 07:18 36.8 C 96 H 18 110/69 97 Room Air 07/14/23 03:06 37.1 C 93 H 18 100/63 95 Room Air 07/14/23 00:21 94 H 07/13/23 23:57 Room Air Laboratory Results 07/14/23 07/14/23 07/14/23 Range/Units 14:21 12:51 11:37 WBC 0.69 L* (4.8-10.8) K/ul RBC 2.40 L (4.20-5.40) M/uL Hgb 6.8 L* (12.0-16.0) g/dl Hct 20.3 L* (37.0-47.0) % MCV 84.6 (80.0-100.0) fL MCH 28.3 (25.0-34.0) pg MCHC 33.5 (32.0-36.0) g/dL RDW Std Deviation 51.5 H (36.4-46.3) fL RDW Coeff of Joshua 16.9 H (11.5-14.5) % Plt Count 174 (130-400) K/uL MPV 8.6 L (9.4-12.4) fL Immature Gran % (Auto) % Neut % (Auto) % Lymph % (Auto) % Storey % (Auto) % Eos % (Auto) % Baso % (Auto) % Neut # (Auto) (1.40-6.50) K/uL Lymph # (Auto) (1.20-3.40) K/uL Storey # (Auto) (0.11-0.59) K/uL Eos # (Auto) (0.00-0.50) K/uL Baso # (Auto) (0.00-0.20) K/uL Immature Gran # (Auto) (0.01-0.20) K/uL Absolute Nucleated RBC 0.02 (0.00-0.12) K/uL Nucleated RBC % (auto) 2.9 % Polychromasia Basophilic Stippling Tear Drop Cells VBG pH (7.36-7.41) VBG pCO2 (38-50) mmHg VBG pO2 mmHg VBG HCO3 mmol/L VBG O2 Saturation % VBG Base Excess mEq/L Sodium (136-145) mmol/L Potassium (3.5-5.1) mmol/L Chloride (98-107) mmol/L Carbon Dioxide (21-32) mmol/L Anion Gap (3-11) BUN (6-23) mg/dl Creatinine (0.6-1.2) mg/dl Est Cr Clr Drug Dosing Est GFR ( Amer) ml/min Est GFR (Non-Af Amer) ml/min BUN/Creatinine Ratio (10-20) Glucose (70-99(Fasting)) mg/dl POC Glucose 173 H (70-99) mg/dl Calcium (8.6-10.3) mg/dl Phosphorus (2.5-4.9) mg/dl Magnesium (1.7-2.4) mg/dl Total Bilirubin 1.1 H (0.2-1.0) mg/dl Direct Bilirubin 0.3 H (0-0.2) mg/dl AST 28 (13-39) U/L ALT 18 (7-52) U/L Alkaline Phosphatase 150 H (34-104) U/L Total Creatine Kinase (26-192) U/L Troponin I High Sens (0-14) pg/ml Total Protein 5.8 L (6.0-8.3) gm/dl Albumin 3.1 L (3.4-5.0) gm/dl Globulin (2.5-4.0) gm/dl Albumin/Globulin Ratio (0.9-2) TSH (0.300-4.500) uIu/ml Free T4 (0.61-1.60) ng/dl Blood Type O Negative Antibody Screen NEGATIVE Crossmatch See Detail 07/14/23 07/14/23 07/14/23 Range/Units 10:02 07:16 06:01 WBC 0.86 L* (4.8-10.8) K/ul RBC 2.46 L (4.20-5.40) M/uL Hgb 7.2 L (12.0-16.0) g/dl Hct 20.7 L* (37.0-47.0) % MCV 84.1 (80.0-100.0) fL MCH 29.3 (25.0-34.0) pg MCHC 34.8 (32.0-36.0) g/dL RDW Std Deviation 49.2 H (36.4-46.3) fL RDW Coeff of Joshua 16.6 H (11.5-14.5) % Plt Count 192 (130-400) K/uL MPV 9.1 L (9.4-12.4) fL Immature Gran % (Auto) 1.2 % Neut % (Auto) 27.8 % Lymph % (Auto) 64.0 % Storey % (Auto) 5.8 % Eos % (Auto) 0.0 % Baso % (Auto) 1.2 % Neut # (Auto) 0.24 L* (1.40-6.50) K/uL Lymph # (Auto) 0.55 L (1.20-3.40) K/uL Storey # (Auto) 0.05 L (0.11-0.59) K/uL Eos # (Auto) 0.00 (0.00-0.50) K/uL Baso # (Auto) 0.01 (0.00-0.20) K/uL Immature Gran # (Auto) 0.01 (0.01-0.20) K/uL Absolute Nucleated RBC (0.00-0.12) K/uL Nucleated RBC % (auto) % Polychromasia 1+ Basophilic Stippling 1+ Tear Drop Cells VBG pH (7.36-7.41) VBG pCO2 (38-50) mmHg VBG pO2 mmHg VBG HCO3 mmol/L VBG O2 Saturation % VBG Base Excess mEq/L Sodium 133 L 135 L (136-145) mmol/L Potassium 4.2 3.9 (3.5-5.1) mmol/L Chloride 106 107 (98-107) mmol/L Carbon Dioxide 19 L 20 L (21-32) mmol/L Anion Gap 8 8 (3-11) BUN 13 13 (6-23) mg/dl Creatinine 0.83 0.83 (0.6-1.2) mg/dl Est Cr Clr Drug Dosing 107.8 107.8 Est GFR ( Amer) 98.0 98.0 ml/min Est GFR (Non-Af Amer) 84.6 84.6 ml/min BUN/Creatinine Ratio 15.7 15.7 (10-20) Glucose 170 H 141 H (70-99(Fasting)) mg/dl POC Glucose 173 H (70-99) mg/dl Calcium 6.4 L 6.4 L (8.6-10.3) mg/dl Phosphorus 2.2 L 2.2 L (2.5-4.9) mg/dl Magnesium 1.6 L 1.7 (1.7-2.4) mg/dl Total Bilirubin (0.2-1.0) mg/dl Direct Bilirubin (0-0.2) mg/dl AST (13-39) U/L ALT (7-52) U/L Alkaline Phosphatase (34-104) U/L Total Creatine Kinase (26-192) U/L Troponin I High Sens (0-14) pg/ml Total Protein (6.0-8.3) gm/dl Albumin (3.4-5.0) gm/dl Globulin (2.5-4.0) gm/dl Albumin/Globulin Ratio (0.9-2) TSH (0.300-4.500) uIu/ml Free T4 (0.61-1.60) ng/dl Blood Type Antibody Screen Crossmatch 07/14/23 07/14/23 07/14/23 Range/Units 03:55 02:18 00:12 WBC (4.8-10.8) K/ul RBC (4.20-5.40) M/uL Hgb (12.0-16.0) g/dl Hct (37.0-47.0) % MCV (80.0-100.0) fL MCH (25.0-34.0) pg MCHC (32.0-36.0) g/dL RDW Std Deviation (36.4-46.3) fL RDW Coeff of Joshua (11.5-14.5) % Plt Count (130-400) K/uL MPV (9.4-12.4) fL Immature Gran % (Auto) % Neut % (Auto) % Lymph % (Auto) % Storey % (Auto) % Eos % (Auto) % Baso % (Auto) % Neut # (Auto) (1.40-6.50) K/uL Lymph # (Auto) (1.20-3.40) K/uL Storey # (Auto) (0.11-0.59) K/uL Eos # (Auto) (0.00-0.50) K/uL Baso # (Auto) (0.00-0.20) K/uL Immature Gran # (Auto) (0.01-0.20) K/uL Absolute Nucleated RBC (0.00-0.12) K/uL Nucleated RBC % (auto) % Polychromasia Basophilic Stippling Tear Drop Cells VBG pH (7.36-7.41) VBG pCO2 (38-50) mmHg VBG pO2 mmHg VBG HCO3 mmol/L VBG O2 Saturation % VBG Base Excess mEq/L Sodium 135 L (136-145) mmol/L Potassium 3.8 (3.5-5.1) mmol/L Chloride 107 (98-107) mmol/L Carbon Dioxide 21 (21-32) mmol/L Anion Gap 7 (3-11) BUN 14 (6-23) mg/dl Creatinine 0.93 (0.6-1.2) mg/dl Est Cr Clr Drug Dosing 96.2 Est GFR ( Amer) 85.4 ml/min Est GFR (Non-Af Amer) 73.7 ml/min BUN/Creatinine Ratio 15.1 (10-20) Glucose 165 H (70-99(Fasting)) mg/dl POC Glucose 177 H 203 H (70-99) mg/dl Calcium 6.4 L (8.6-10.3) mg/dl Phosphorus 2.2 L (2.5-4.9) mg/dl Magnesium 1.7 (1.7-2.4) mg/dl Total Bilirubin (0.2-1.0) mg/dl Direct Bilirubin (0-0.2) mg/dl AST (13-39) U/L ALT (7-52) U/L Alkaline Phosphatase (34-104) U/L Total Creatine Kinase (26-192) U/L Troponin I High Sens (0-14) pg/ml Total Protein (6.0-8.3) gm/dl Albumin (3.4-5.0) gm/dl Globulin (2.5-4.0) gm/dl Albumin/Globulin Ratio (0.9-2) TSH (0.300-4.500) uIu/ml Free T4 (0.61-1.60) ng/dl Blood Type Antibody Screen Crossmatch 07/13/23 07/13/23 07/13/23 Range/Units 22:37 20:32 18:18 WBC (4.8-10.8) K/ul RBC (4.20-5.40) M/uL Hgb (12.0-16.0) g/dl Hct (37.0-47.0) % MCV (80.0-100.0) fL MCH (25.0-34.0) pg MCHC (32.0-36.0) g/dL RDW Std Deviation (36.4-46.3) fL RDW Coeff of Joshua (11.5-14.5) % Plt Count (130-400) K/uL MPV (9.4-12.4) fL Immature Gran % (Auto) % Neut % (Auto) % Lymph % (Auto) % Storey % (Auto) % Eos % (Auto) % Baso % (Auto) % Neut # (Auto) (1.40-6.50) K/uL Lymph # (Auto) (1.20-3.40) K/uL Storey # (Auto) (0.11-0.59) K/uL Eos # (Auto) (0.00-0.50) K/uL Baso # (Auto) (0.00-0.20) K/uL Immature Gran # (Auto) (0.01-0.20) K/uL Absolute Nucleated RBC (0.00-0.12) K/uL Nucleated RBC % (auto) % Polychromasia Basophilic Stippling Tear Drop Cells VBG pH (7.36-7.41) VBG pCO2 (38-50) mmHg VBG pO2 mmHg VBG HCO3 mmol/L VBG O2 Saturation % VBG Base Excess mEq/L Sodium 135 L 138 (136-145) mmol/L Potassium 3.8 3.6 (3.5-5.1) mmol/L Chloride 106 105 (98-107) mmol/L Carbon Dioxide 20 L 22 (21-32) mmol/L Anion Gap 9 11 (3-11) BUN 14 15 (6-23) mg/dl Creatinine 0.90 0.85 (0.6-1.2) mg/dl Est Cr Clr Drug Dosing 99.5 105.3 Est GFR ( Amer) 88.9 95.2 ml/min Est GFR (Non-Af Amer) 76.7 82.2 ml/min BUN/Creatinine Ratio 15.6 17.6 (10-20) Glucose 157 H 115 H (70-99(Fasting)) mg/dl POC Glucose 136 H (70-99) mg/dl Calcium 6.6 L 6.7 L (8.6-10.3) mg/dl Phosphorus 2.2 L 2.0 L (2.5-4.9) mg/dl Magnesium 1.7 1.8 (1.7-2.4) mg/dl Total Bilirubin (0.2-1.0) mg/dl Direct Bilirubin (0-0.2) mg/dl AST (13-39) U/L ALT (7-52) U/L Alkaline Phosphatase (34-104) U/L Total Creatine Kinase (26-192) U/L Troponin I High Sens (0-14) pg/ml Total Protein (6.0-8.3) gm/dl Albumin (3.4-5.0) gm/dl Globulin (2.5-4.0) gm/dl Albumin/Globulin Ratio (0.9-2) TSH (0.300-4.500) uIu/ml Free T4 (0.61-1.60) ng/dl Blood Type Antibody Screen Crossmatch 07/13/23 07/13/23 07/13/23 Range/Units 17:21 16:08 14:43 WBC (4.8-10.8) K/ul RBC (4.20-5.40) M/uL Hgb (12.0-16.0) g/dl Hct (37.0-47.0) % MCV (80.0-100.0) fL MCH (25.0-34.0) pg MCHC (32.0-36.0) g/dL RDW Std Deviation (36.4-46.3) fL RDW Coeff of Joshua (11.5-14.5) % Plt Count (130-400) K/uL MPV (9.4-12.4) fL Immature Gran % (Auto) % Neut % (Auto) % Lymph % (Auto) % Storey % (Auto) % Eos % (Auto) % Baso % (Auto) % Neut # (Auto) (1.40-6.50) K/uL Lymph # (Auto) (1.20-3.40) K/uL Storey # (Auto) (0.11-0.59) K/uL Eos # (Auto) (0.00-0.50) K/uL Baso # (Auto) (0.00-0.20) K/uL Immature Gran # (Auto) (0.01-0.20) K/uL Absolute Nucleated RBC (0.00-0.12) K/uL Nucleated RBC % (auto) % Polychromasia Basophilic Stippling Tear Drop Cells VBG pH (7.36-7.41) VBG pCO2 (38-50) mmHg VBG pO2 mmHg VBG HCO3 mmol/L VBG O2 Saturation % VBG Base Excess mEq/L Sodium (136-145) mmol/L Potassium (3.5-5.1) mmol/L Chloride (98-107) mmol/L Carbon Dioxide (21-32) mmol/L Anion Gap (3-11) BUN (6-23) mg/dl Creatinine (0.6-1.2) mg/dl Est Cr Clr Drug Dosing Est GFR ( Amer) ml/min Est GFR (Non-Af Amer) ml/min BUN/Creatinine Ratio (10-20) Glucose (70-99(Fasting)) mg/dl POC Glucose 160 H 270 H 337 H* (70-99) mg/dl Calcium (8.6-10.3) mg/dl Phosphorus (2.5-4.9) mg/dl Magnesium (1.7-2.4) mg/dl Total Bilirubin (0.2-1.0) mg/dl Direct Bilirubin (0-0.2) mg/dl AST (13-39) U/L ALT (7-52) U/L Alkaline Phosphatase (34-104) U/L Total Creatine Kinase (26-192) U/L Troponin I High Sens (0-14) pg/ml Total Protein (6.0-8.3) gm/dl Albumin (3.4-5.0) gm/dl Globulin (2.5-4.0) gm/dl Albumin/Globulin Ratio (0.9-2) TSH (0.300-4.500) uIu/ml Free T4 (0.61-1.60) ng/dl Blood Type Antibody Screen Crossmatch 07/13/23 07/13/23 07/13/23 Range/Units 14:33 14:05 10:52 WBC 1.40 L (4.8-10.8) K/ul RBC 3.15 L (4.20-5.40) M/uL Hgb 9.0 L (12.0-16.0) g/dl Hct 25.9 L (37.0-47.0) % MCV 82.2 (80.0-100.0) fL MCH 28.6 (25.0-34.0) pg MCHC 34.7 (32.0-36.0) g/dL RDW Std Deviation 46.9 H (36.4-46.3) fL RDW Coeff of Joshua 15.9 H (11.5-14.5) % Plt Count 258 (130-400) K/uL MPV 9.3 L (9.4-12.4) fL Immature Gran % (Auto) 6.4 % Neut % (Auto) 42.2 % Lymph % (Auto) 44.3 % Storey % (Auto) 6.4 % Eos % (Auto) 0.0 % Baso % (Auto) 0.7 % Neut # (Auto) 0.59 L* (1.40-6.50) K/uL Lymph # (Auto) 0.62 L (1.20-3.40) K/uL Storey # (Auto) 0.09 L (0.11-0.59) K/uL Eos # (Auto) 0.00 (0.00-0.50) K/uL Baso # (Auto) 0.01 (0.00-0.20) K/uL Immature Gran # (Auto) 0.09 (0.01-0.20) K/uL Absolute Nucleated RBC (0.00-0.12) K/uL Nucleated RBC % (auto) % Polychromasia 1+ Basophilic Stippling Tear Drop Cells 1+ VBG pH 7.35 L (7.36-7.41) VBG pCO2 36 L (38-50) mmHg VBG pO2 40 mmHg VBG HCO3 20 mmol/L VBG O2 Saturation 72.0 % VBG Base Excess -5.2 mEq/L Sodium 134 L 136 (136-145) mmol/L Potassium 3.8 3.8 (3.5-5.1) mmol/L Chloride 103 102 (98-107) mmol/L Carbon Dioxide 21 17 L (21-32) mmol/L Anion Gap 10 17 H (3-11) BUN 15 16 (6-23) mg/dl Creatinine 0.93 1.01 (0.6-1.2) mg/dl Est Cr Clr Drug Dosing 96.2 Not Reportable Est GFR ( Amer) 85.4 77.3 ml/min Est GFR (Non-Af Amer) 73.7 66.7 ml/min BUN/Creatinine Ratio 16.1 15.8 (10-20) Glucose 335 H* 314 H* (70-99(Fasting)) mg/dl POC Glucose (70-99) mg/dl Calcium 6.8 L 7.2 L (8.6-10.3) mg/dl Phosphorus 2.6 (2.5-4.9) mg/dl Magnesium 2.5 H 1.4 L (1.7-2.4) mg/dl Total Bilirubin 1.3 H (0.2-1.0) mg/dl Direct Bilirubin (0-0.2) mg/dl AST 37 (13-39) U/L ALT 23 (7-52) U/L Alkaline Phosphatase 182 H (34-104) U/L Total Creatine Kinase 49 (26-192) U/L Troponin I High Sens 5.6 (0-14) pg/ml Total Protein 7.2 (6.0-8.3) gm/dl Albumin 3.9 (3.4-5.0) gm/dl Globulin 3.3 (2.5-4.0) gm/dl Albumin/Globulin Ratio 1.2 (0.9-2) TSH 4.730 H (0.300-4.500) uIu/ml Free T4 0.71 (0.61-1.60) ng/dl Blood Type Antibody Screen Crossmatch Diagnostic Findings Chest X-Ray 07/13/23 10:15 XR chest 1V portable HISTORY: 48 years-old Female weakness COMPARISON: 05/23/2023 TECHNIQUE: AP view the chest FINDINGS: Cardiac silhouette is enlarged. Limited exam secondary to patient rotation. Left subclavian Karerj-v-Osjw catheter. No pneumothorax or pleural effusion. Pe ripheral airspace opacities within the right mid lung and right lung base redemonstrated. Multifocal skeletal metastasis are again seen. Chronic pathologic rib fractures. IMPRESSION: 1. Ill-defined peripheral consolidative opacities within the right mid lung and right lung base have mildly worsened from the 05/23/2023 exam. 2. Multifocal skeletal metastasis are demonstrated. ACT 112: Negative or not required by law. The above report was generated using voice recognition software. It may contain grammatical, syntax or spelling errors. Electronically signed by: Ruddy Chen M.D. 07/13/2023 11:26 AM PG Care Time/CCT Total # of Minutes Spent Total Time Spent with Patient: Total time spent is greater than 50% in coordination of care (as documented) at patient's floor/unit and/or counseling patient: I spent 60 minutes overall addressing this case: 15 min in medical data review/discussion with referring provider(s) and/or preparation for the visit 15 min in direct interaction with the patient/exam 00 min in Advance Care Planning/Goals of Care discussions as detailed above in note (must be >16min) 15 min in subsequent review and synthesis of assessment and plan 15 min communicating with other providers regarding the patient's case: [place] [address] IN/OBS CONSULT LVL 4,60M Patient Type New Medical Decision Making High Complexity Diagnoses Cancer related pain G89.3 Intractable nausea and vomiting R11.2 Therapeutic opioid-induced constipation (OIC) K59.03; T40.2X5A Carcinoma of breast metastatic to bone, unspecified laterality C50.919; C79.51 Laterality: unspecified laterality Depression F32.A Palliative care by specialist Z51.5
[2023-07-14 13:25] LABS: Albumin Level 3.1 gm/dl (3.4-5.0); Bilirubin Direct 0.3 mg/dl (0-0.2); Bilirubin,Total 1.1 mg/dl (0.2-1.0); Total Protein 5.8 gm/dl (6.0-8.3)
[2023-07-14 13:47] LABS: White Blood Count 0.69 K/ul (4.8-10.8)
[2023-07-14 13:48] LABS: Hematocrit (blood only) 20.3 % (37.0-47.0); Hemoglobin 6.8 g/dl (12.0-16.0)
[2023-07-14 13:49] LABS: Mean Corpuscular Hemoglobin 28.3 pg (25.0-34.0); Mean Corpuscular Hgb Conc 33.5 g/dL (32.0-36.0); Mean Corpuscular Volume 84.6 fL (80.0-100.0); Mean Platelet Volume 8.6 fL (9.4-12.4); Nucleated RBC # (auto) 0.02 K/uL (0.00-0.12); Nucleated RBC % (auto) 2.9 %; Platelet Count 174 K/uL (130-400); RDW Coefficient of Variation 16.9 % (11.5-14.5); RDW Standard Deviation 51.5 fL (36.4-46.3)
[2023-07-14] MEDS ORDERED: SODIUM CHLORIDE 0.9% 250 ML IV PRN (14:04)
--- NOTE | 2023-07-14 14:24 | Hospitalist Progress Note ---
Date of Service July 14, 2023 Assessment & Plan (1) Neutropenia: (2) DKA (diabetic ketoacidosis): Plan 48-year-old female with PMH of metastatic breast cancer on chemotherapy, T2DM on insulin, hypothyroidism, hypercalcemia, depression with anxiety, peripheral neuropathy, SBO presented to the ED 07/12 with complaint of nausea, vomiting, generalized pain. Patient stated that she felt too weak to keep up with insulin use for few days prior to arrival. She is being managed for the following: Diabetic ketoacidosis: Present at admission, status post DKA protocol, glycemic pharmacy on board, resolved. Resolved nausea and vomiting now. Uncontrolled T2DM: A1c 9.3 in May 2023. Patient on insulin at home. Glycemic pharmacy managing, membership counselor consult. Intractable nausea and vomiting: Present at admission, likely multifactorial due to underlying malignancy/need for chemotherapy/DKA at presentation. Currently receiving Aloxi. Currently resolved. Continue with home olanzapine. Continue to monitor. Bicytopenia: Neutropenia and anemia at presentation: WBC of 1.4 and hemoglobin of 9.0. Neutrophils 0.59K Afebrile, denies blood in sputum or stool. Patient under chemotherapy as OP, likely could be cause for bicytopenia. Get FOBT, transfuse 1 unit PRBC, neutropenia precaution, monitor for fever. Oncology consult for further recommendation. No obvious signs of infection at the moment. Hypocalcemia and hypomagnesemia: Monitor and replete. Cancer related pain: Continue home oxycodone 20 mg for moderate pain, c/w IV Dilaudid for severe pain Patient was to start scheduled morphine 30 mg every 8 hours however she reports that she is awaiting insurance approval Palliative consult, appreciate recs. Breast cancer metastasized to bone: Follows with Dr. Vazquez at [facility] Currently receiving Eribulin, last infusion 07/11 DVT PROPHYLAXIS: SQ Lovenox will be held due to anemia, monitor HnH closely. Admission and Anticipated Discharge Date Admission Date: July 13, 2023 Subjective Patient was seen and examined at bedside. Patient was lying in bed, on room air,NAD. Patient reports improvement in her nausea and vomiting, denies any increase in her chronic pain. Patient reports feeling tired and weak today. Appears pale. Repeat CBC with drop in hemoglobin, transfusing 1 unit PRBC. Patient reports improving appetite, advance diet as tolerated. Fall precaution. Pt denies cough and diarrhea and febrile episodes. Physical Exam Physical Exam: GENERAL: Alert and oriented x3. NAD, on RA. Appears ill/sick/frail/pale. HEENT: + pallor, no icterus. Pupils equal, round and reactive to light. Oral mucosa moist. NECK: No JVD, no neck masses. HEART: S1 and S2 heard. Regular rate and rhythm. No murmur, no gallop. RESPIRATORY SYSTEM: Normal AP diameter. No accessory muscle use. No wheezing, no crackles. ABDOMEN: Soft, bowel sounds present, nontender, no distention. CENTRAL NERVOUS SYSTEM: No facial droop. Speech is clear. Obeys simple commands. Moves extremities. EXTREMITIES: No edema, no erythema seen. Left upper chest port - no signs of infection. appears healthy. Results & Data Results & Data Vital Signs (Past 12 Hours) Vital Signs Temp Pulse Resp BP Pulse Ox O2 Del Method 07/14/23 12:03 36.5 C 97 H 18 110/69 98 Room Air 07/14/23 09:50 Room Air 07/14/23 07:18 36.8 C 96 H 18 110/69 97 Room Air 07/14/23 03:06 37.1 C 93 H 18 100/63 95 Room Air
[2023-07-14] MEDS: ACETAMINOPHEN 325 MG TAB PO ONE (15:48)
[2023-07-14 16:11] LABS: Basophils # (auto) 0.01 K/uL (0.00-0.20); Basophils % (auto) 1.4 %; Lymphocytes # (auto) 0.47 K/uL (1.20-3.40); Lymphocytes % (auto) 67.1 %; Monocytes # (auto) 0.06 K/uL (0.11-0.59); Monocytes % (auto) 8.6 %; Neutrophils % (auto) 22.9 %
[2023-07-14 16:28] LABS: Neutrophils # (auto) 0.16 K/uL (1.40-6.50)
[2023-07-14] MEDS: DOCUSATE SODIUM/SENNA 50/8.6MG TAB PO SCH (20:37)
[2023-07-14] MEDS: PROMETHAZINE HCL 12.5 MG in SODIUM CHLORIDE 0.9% 50 ML IV PRN (20:55)
[2023-07-15 09:32] LABS: Hematocrit (blood only) 24.2 % (37.0-47.0); Hemoglobin 8.4 g/dl (12.0-16.0); Mean Corpuscular Hemoglobin 28.6 pg (25.0-34.0); Mean Corpuscular Hgb Conc 34.7 g/dL (32.0-36.0); Mean Corpuscular Volume 82.3 fL (80.0-100.0); Mean Platelet Volume 9.3 fL (9.4-12.4); Nucleated RBC # (auto) 0.02 K/uL (0.00-0.12); Nucleated RBC % (auto) 3.3 %; Platelet Count 198 K/uL (130-400); RDW Coefficient of Variation 16.7 % (11.5-14.5); RDW Standard Deviation 49.5 fL (36.4-46.3); Red Blood Count 2.94 M/uL (4.20-5.40); White Blood Count 0.61 K/ul (4.8-10.8)
[2023-07-15 09:45] LABS: Albumin Globulin Ratio 1.2 (0.9-2); Albumin Level 3.4 gm/dl (3.4-5.0); BUN Creatinine Ratio 13.3 (10-20); Bilirubin,Total 1.1 mg/dl (0.2-1.0); Calcium 6.9 mg/dl (8.6-10.3); Creatinine Clr Calc Pharmacy 107.3 ml/min; Est GFR (Non-African American) 84.6 ml/min; Globulin 2.9 gm/dl (2.5-4.0); Magnesium 1.5 mg/dl (1.7-2.4); Phosphorus 1.8 mg/dl (2.5-4.9); Total Protein 6.3 gm/dl (6.0-8.3)
[2023-07-15] MEDS ORDERED: POTASSIUM PHOS 3 MMOL/1 ML INFUSION IV STA (10:00)
[2023-07-15 10:01] LABS: Polychromasia 1+; Tear Drop Cells 1+
[2023-07-15 10:02] LABS: Basophils # (auto) 0.01 K/uL (0.00-0.20); Basophils % (auto) 1.6 %; Immature Granulocytes # (auto) 0.04 K/uL (0.01-0.20); Immature Granulocytes % (auto) 6.6 %; Lymphocytes # (auto) 0.43 K/uL (1.20-3.40); Lymphocytes % (auto) 70.5 %; Monocytes # (auto) 0.05 K/uL (0.11-0.59); Monocytes % (auto) 8.2 %; Neutrophils # (auto) 0.08 K/uL (1.40-6.50); Neutrophils % (auto) 13.1 %
[2023-07-15] MEDS: CALCIUM GLUCONATE 1,000 MG/60 ML BAG IV STA (10:44)
[2023-07-15] MEDS: ADVANCED PROBIOTIC 625 MG CAPSULE PO SCH (10:46)
[2023-07-15] MEDS: PSYLLIUM or GUAR GUM FIBER 4GM PACKET PO SCH (10:46)
[2023-07-15] MEDS: POTASSIUM PHOSPHATE 21 MMOL in SODIUM CHLORIDE 0.9% 500 ML IV ONE (10:48)
[2023-07-15] MEDS: MAGNESIUM SULFATE / D5W 1 GM/100 ML BAG IV SCH (10:55)
--- NOTE | 2023-07-15 10:58 | Palliative Care Progress Note ---
Date of Service July 15, 2023 Assessment & Plan (1) Cancer related pain: Plan: Dilaudid is not lasting 3 hr, will decrease interval to q2h prn (2) Therapeutic opioid-induced constipation (OIC): Plan: Successful BM this morning, continue OIC prevention regimen (3) Depression: (4) Intractable nausea and vomiting: Plan: Continue Aloxi IV daily (5) Advanced care planning/counseling discussion: Plan: Face to face at bedside with pt for 20min She is despondent over her decline/weakness/not tolerating chemo but states she does not want to talk about what if scenarios because she is not ready to face the implications of those choices (6) Palliative care by specialist: (7) Breast cancer metastasized to bone: Plan Thank you for allowing us to participate in the ongoing care of this patient. Please don't hesitate to call or page with any additional concerns. Dr. Luna Limon DNP Director, Palliative Care Admission and Anticipated Discharge Date Admission Date: July 13, 2023 Subjective Yamilka feels about 60% less nauseated Tolerating very small amounts of liquids, had a few bites of dinner, crackers remains on Aloxi and IVF Pain is ongoing, Dilaudid is not lasting 3 hr , lasts bout 2-2.5 hr per pt BM this morning, she states "all the medication finally worked, unblocked me but it was explosive and I was so upset by how much of a mess it made" mood is depressed overall states she is just not feeling well, very weak, very fatigued, sleeping a lot Review of Systems Review of Systems: All systems reviewed & are unremarkable except as noted in Subjective Physical Exam Physical Exam: Chronically ill appearing, tired appearing bitemp wasting, alopecia/chemo related; perrla, EOMIs Neck supple, no stridor, edentulous, MM dry Resp effort WAL, no use of accessory muscles, mild conversational dyspnea S1S2 Abd soft, NTP, BS+ Anterior to lateral left ribs/chest and back +TTP +generalized weakness paraspinal tenderness AAOx3 Tearful throughout this visit, emotional distress+, depressed mood+, anxious+ skin dry Results & Data Vital Signs (Past 12 Hours) Vital Signs Temp Pulse Pulse Resp BP Pulse Ox O2 Del Method 07/15/23 07:32 37.1 C 100 H 16 111/72 97 Room Air 07/15/23 03:49 37.3 C 97 H 18 101/65 94 Room Air 07/14/23 23:44 37.1 C 95 H 18 105/67 95 Room Air 07/14/23 23:21 97 H Laboratory Results Abnormal lab results 07/14/23 07/14/23 07/14/23 Range/Units 12:51 14:21 16:32 WBC 0.69 L* (4.8-10.8) K/ul RBC 2.40 L (4.20-5.40) M/uL Hgb 6.8 L* (12.0-16.0) g/dl Hct 20.3 L* (37.0-47.0) % RDW Std Deviation 51.5 H (36.4-46.3) fL RDW Coeff of Joshua 16.9 H (11.5-14.5) % MPV 8.6 L (9.4-12.4) fL Neut # (Auto) 0.16 L* (1.40-6.50) K/uL Lymph # (Auto) 0.47 L (1.20-3.40) K/uL Bergen # (Auto) 0.06 L (0.11-0.59) K/uL Immature Gran # (Auto) 0.00 L (0.01-0.20) K/uL Sodium (136-145) mmol/L Carbon Dioxide (21-32) mmol/L Glucose (70-99(Fasting)) mg/dl POC Glucose 145 H (70-99) mg/dl Calcium (8.6-10.3) mg/dl Phosphorus (2.5-4.9) mg/dl Magnesium (1.7-2.4) mg/dl Total Bilirubin 1.1 H (0.2-1.0) mg/dl Direct Bilirubin 0.3 H (0-0.2) mg/dl Alkaline Phosphatase 150 H (34-104) U/L Total Protein 5.8 L (6.0-8.3) gm/dl Albumin 3.1 L (3.4-5.0) gm/dl Crossmatch See Detail 07/14/23 07/15/23 07/15/23 Range/Units 20:08 07:31 09:08 WBC 0.61 L* (4.8-10.8) K/ul RBC 2.94 L (4.20-5.40) M/uL Hgb 8.4 L (12.0-16.0) g/dl Hct 24.2 L (37.0-47.0) % RDW Std Deviation 49.5 H (36.4-46.3) fL RDW Coeff of Joshua 16.7 H (11.5-14.5) % MPV 9.3 L (9.4-12.4) fL Neut # (Auto) 0.08 L* (1.40-6.50) K/uL Lymph # (Auto) 0.43 L (1.20-3.40) K/uL Bergen # (Auto) 0.05 L (0.11-0.59) K/uL Immature Gran # (Auto) (0.01-0.20) K/uL Sodium 132 L (136-145) mmol/L Carbon Dioxide 19 L (21-32) mmol/L Glucose 219 H (70-99(Fasting)) mg/dl POC Glucose 201 H 228 H (70-99) mg/dl Calcium 6.9 L (8.6-10.3) mg/dl Phosphorus 1.8 L (2.5-4.9) mg/dl Magnesium 1.5 L (1.7-2.4) mg/dl Total Bilirubin 1.1 H (0.2-1.0) mg/dl Direct Bilirubin (0-0.2) mg/dl Alkaline Phosphatase 162 H (34-104) U/L Total Protein (6.0-8.3) gm/dl Albumin (3.4-5.0) gm/dl Crossmatch 07/15/23 Range/Units 11:55 WBC (4.8-10.8) K/ul RBC (4.20-5.40) M/uL Hgb (12.0-16.0) g/dl Hct (37.0-47.0) % RDW Std Deviation (36.4-46.3) fL RDW Coeff of Joshua (11.5-14.5) % MPV (9.4-12.4) fL Neut # (Auto) (1.40-6.50) K/uL Lymph # (Auto) (1.20-3.40) K/uL Bergen # (Auto) (0.11-0.59) K/uL Immature Gran # (Auto) (0.01-0.20) K/uL Sodium (136-145) mmol/L Carbon Dioxide (21-32) mmol/L Glucose (70-99(Fasting)) mg/dl POC Glucose 168 H (70-99) mg/dl Calcium (8.6-10.3) mg/dl Phosphorus (2.5-4.9) mg/dl Magnesium (1.7-2.4) mg/dl Total Bilirubin (0.2-1.0) mg/dl Direct Bilirubin (0-0.2) mg/dl Alkaline Phosphatase (34-104) U/L Total Protein (6.0-8.3) gm/dl Albumin (3.4-5.0) gm/dl Crossmatch Diagnostic Findings Chest X-Ray 07/13/23 10:15 XR chest 1V portable HISTORY: 48 years-old Female weakness COMPARISON: 05/23/2023 TECHNIQUE: AP view the chest FINDINGS: Cardiac silhouette is enlarged. Limited exam secondary to patient rotation. Left subclavian [id number] catheter. No pneumothorax or pleural effusion. Peripheral airspace opacities within the right mid lung and right lung base redemonstrated. Multifocal skeletal metastasis are again seen. Chronic pathologic rib fractures. IMPRESSION: 1. Ill-defined peripheral consolidative opacities within the right mid lung and right lung base have mildly worsened from the 05/23/2023 exam. 2. Multifocal skeletal metastasis are demonstrated. ACT 112: Negative or not required by law. The above report was generated using voice recognition software. It may contain grammatical, syntax or spelling errors. Electronically signed by: Ruddy Chen M.D. 07/13/2023 11:26 AM PG Care Time/CCT Total # of Minutes Spent Total Time Spent with Patient: Total time spent is greater than 50% in coordination of care (as documented) at patient's floor/unit and/or counseling patient: Advanced Care Planning 35567 Advanced Care Planning 30 Min [place] [address] SUB INP/OBS CARE 3/50MIN Patient Type Established History Comprehensive Exam Comprehensive Medical Decision Making High Complexity Diagnoses Cancer related pain G89.3 Therapeutic opioid-induced constipation (OIC) K59.03; T40.2X5A Severe episode of recurrent major depressive disorder, without psychotic features F33.2 Active/Remission status: currently active Major depression episode severity: severe Psychotic features: without psychotic features Depression Type: major depressive disorder Major depression recurrence: recurrent Intractable nausea and vomiting R11.2 Advanced care planning/counseling discussion Z71.89 Palliative care by specialist Z51.5 Carcinoma of breast metastatic to bone, unspecified laterality C50.919; C79.51 Laterality: unspecified laterality Additional Codes Advanced Care Planning - 58682 Advanced Care Planning 30 Min: 38858 Advanced Care Planning 30 Min ([id number]) (3) Depression Active/Remission status: currently active Major depression episode severity: severe Psychotic features: without psychotic features Depression Type: major depressive disorder Major depression recurrence: recurrent Qualified Code(s): F33.2 - Major depressive disorder, recurrent severe without psychotic features (7) Breast cancer metastasized to bone Laterality: unspecified laterality Qualified Code(s): C50.919 - Malignant neoplasm of unspecified site of unspecified female breast; C79.51 - Secondary malignant neoplasm of bone
[2023-07-15] MEDS: HYDROmorphone INJ 1 MG/ML SYRINGE IV PRN (11:01)
--- NOTE | 2023-07-15 12:50 | Pharmacy Report ---
Pharmacy Glycemic Short Note 2 - Date of Service July 15, 2023 - Glycemic Short BSG Results (Last 24 hours): 07/14/23 07/14/23 07/15/23 16:32 20:08 07:31 Glucose POC Glucose 145 H 201 H 228 H 07/15/23 07/15/23 09:08 11:55 Glucose 219 H POC Glucose 168 H OUTPATIENT ANTIDIABETIC REGIMEN: * Lantus 30 units bid, aspart 10 units AC * A1c 9.3% 06/26/23 ASSESSMENT: 07/14: * Patient received total of 75 units of insulin yesterday, of which 55 units for basal coverage. * Today's fasting blood sugar was 228, continue with basal sliding scale as described below in addition to Novolog with correction factor: 15 mg/dL/unit and CHO ratio of 1 unit/5 grams of CHO . 07/13 * Patient transitioned from IV insulin drip protocol to SQ last evening per hospitalist request, labs improved, gap closed. Euglycemic, continue basal bolus and titrate to goal BSG. 07/12 * 48 year old female admitted with DKA - started on insulin infusion per DKA protocol. PMHx significant for DM2, breast cancer, obesity, arthritis. Per notes, was having intractable N/V - likely due to malignancy/chemotherapy and was not taking her insulin for the past 2 days due to illness. PLAN FOR INPATIENT GLYCEMIC CONTROL: * Basal * Lantus sliding scale - If BSG is less than 180 mg/dL, give 25 units SQ If BSG is 180 - 249 mg/dL, give 30 units SQ If BSG is 250 mg/dL or greater, give 40 units SQ * Prandial/Correctional * NovoLog SC ACHS * CF: 15 mg/dL/unit * Insulin to carb ratio: 1 unit per 5 grams CHO Consumed
[2023-07-15] MEDS: PROMETHAZINE HCL 12.5 MG in SODIUM CHLORIDE 0.9% 50 ML IV STA (15:50)
--- NOTE | 2023-07-15 16:23 | Hospitalist Progress Note ---
Date of Service July 15, 2023 Assessment & Plan (1) Neutropenia: (2) DKA (diabetic ketoacidosis): Plan 48-year-old female with PMH of metastatic breast cancer on chemotherapy, T2DM on insulin, hypothyroidism, hypercalcemia, depression with anxiety, peripheral neuropathy, SBO presented to the ED 07/12 with complaint of nausea, vomiting, generalized pain. Patient stated that she felt too weak to keep up with insulin use for few days prior to arrival. She is being managed for the following: Diabetic ketoacidosis: Present at admission, status post DKA protocol, glycemic pharmacy on board, resolved. Resolved nausea and vomiting now. Uncontrolled T2DM: A1c 9.3 in May 2023. Patient on insulin at home. Glycemic pharmacy managing, certified adaptive physical educator consult. Intractable nausea and vomiting: Present at admission, likely multifactorial due to underlying malignancy/need for chemotherapy/DKA at presentation. Currently receiving Aloxi. Currently getting better. Continue with home olanzapine. Continue to monitor. Bicytopenia: Neutropenia and anemia at presentation: WBC of 1.4 and hemoglobin of 9.0. Neutrophils 0.59K Afebrile, denies blood in sputum or stool. Patient under chemotherapy as OP, likely could be cause for bicytopenia. Pt reports no blood/black stool. fobt sent. s/p 1 unit prbc 07/13. neutropenic precaution, monitor for fever. Oncology consult for further recommendation. No obvious signs of infection at the moment. Hypocalcemia and hypomagnesemia: Monitor and replete. Cancer related pain: Continue home oxycodone 20 mg for moderate pain, c/w IV Dilaudid for severe pain Patient was to start scheduled morphine 30 mg every 8 hours however she reports that she is awaiting insurance approval Palliative consult, appreciate recs. Breast cancer metastasized to bone: Follows with Dr. Vazquez at [facility] Currently receiving Eribulin, last infusion 07/11 DVT PROPHYLAXIS: SQ Lovenox will be held due to anemia, monitor HnH closely. Admission and Anticipated Discharge Date Admission Date: July 13, 2023 Subjective Patient was seen and examined at bedside. Patient was lying in bed, on room air, NAD. Patient reports improvement in her nausea and vomiting, denies any increase in her chronic pain. Had loose stools today, will hold laxatives. Patient reports feeling tired and weak today. Reports appetite improving. Pulm precaution Pt denies cough, pain and burning while passing urine, and febrile episodes. Physical Exam Physical Exam: GENERAL: Alert and oriented x3. NAD, on RA. Appears ill/sick/frail/pale. HEENT: no pallor, no icterus. Pupils equal, round and reactive to light. Oral mucosa moist. NECK: No JVD, no neck masses. HEART: S1 and S2 heard. Regular rate and rhythm. No murmur, no gallop. RESPIRATORY SYSTEM: Normal AP diameter. No accessory muscle use. No wheezing, no crackles. ABDOMEN: Soft, bowel sounds present, nontender, no distention. CENTRAL NERVOUS SYSTEM: No facial droop. Speech is clear. Obeys simple commands. Moves extremities. EXTREMITIES: No edema, no erythema seen. Left upper chest port - no signs of infection. appears healthy. Results & Data Results & Data Vital Signs (Past 12 Hours) Vital Signs Temp Pulse Pulse Resp BP Pulse Ox O2 Del Method 07/15/23 11:37 95 H 07/15/23 11:30 37.2 C 99 H 18 116/73 94 Room Air 07/15/23 07:32 37.1 C 100 H 16 111/72 97 Room Air
--- NOTE | 2023-07-16 00:23 | Communication Note ---
Date of Service: July 16, 2023 Patient noted to be febrile and tachycardic since this afternoon. No dysuria or cough symptoms as per RN. Loose stools without abdominal pain. Procalcitonin noted to be elevated AP Sepsis unknown source for now Neutropenic fever Rule out C. difficile diarrhea CS, Daptomycin, Cefepime Stool C. difficile Flagyl 1 dose now for possible C. difficile given sepsis criteria Oral vancomycin course of C. difficile positive Will relay to AM provider.
[2023-07-16] MEDS: SODIUM CHLORIDE 0.9% 1,000 ML IV ONE (00:52)
[2023-07-16] MEDS: ONDANSETRON INJ 2 MG/ML 2 ML VIAL IV STA (00:55)
[2023-07-16 00:58] LABS: Base Excess VBG -4.6 mEq/L; HCO3 VBG 19 mmol/L; Oxygen Saturation VBG 75.2 %; PCO2 VBG 32 mmHg (38-50); PO2 VBG 37 mmHg; pH VBG 7.39 (7.36-7.41)
[2023-07-16 01:21] LABS: Albumin Globulin Ratio 1.1 (0.9-2); Albumin Level 3.3 gm/dl (3.4-5.0); BUN Creatinine Ratio 13.8 (10-20); Bilirubin,Total 0.8 mg/dl (0.2-1.0); Creatinine Clr Calc Pharmacy 102.3 ml/min; Est GFR (African American) 92.6 ml/min; Est GFR (Non-African American) 79.9 ml/min; Globulin 2.9 gm/dl (2.5-4.0); Magnesium 1.9 mg/dl (1.7-2.4); Phosphorus 2.2 mg/dl (2.5-4.9); Potassium 3.6 mmol/L (3.5-5.1); Total Protein 6.2 gm/dl (6.0-8.3)
[2023-07-16 01:36] LABS: Hematocrit (blood only) 22.8 % (37.0-47.0); Hemoglobin 7.9 g/dl (12.0-16.0); Mean Corpuscular Hemoglobin 28.5 pg (25.0-34.0); Mean Corpuscular Hgb Conc 34.6 g/dL (32.0-36.0); Mean Corpuscular Volume 82.3 fL (80.0-100.0); Mean Platelet Volume 9.5 fL (9.4-12.4); Nucleated RBC # (auto) 0.02 K/uL (0.00-0.12); Nucleated RBC % (auto) 2.3 %; Platelet Count 214 K/uL (130-400); RDW Coefficient of Variation 17.1 % (11.5-14.5); RDW Standard Deviation 50.4 fL (36.4-46.3); Red Blood Count 2.77 M/uL (4.20-5.40); White Blood Count 0.87 K/ul (4.8-10.8)
[2023-07-16] MEDS: metroNIDAZOLE 500 MG/100 ML BAG IV STA (01:43)
[2023-07-16 02:28] LABS: Basophils # (auto) 0.02 K/uL (0.00-0.20); Basophils % (auto) 2.3 %; Lymphocytes # (auto) 0.61 K/uL (1.20-3.40); Lymphocytes % (auto) 70.1 %; Monocytes # (auto) 0.07 K/uL (0.11-0.59); Neutrophils # (auto) 0.17 K/uL (1.40-6.50); Neutrophils % (auto) 19.6 %
[2023-07-16] MEDS: MAGNESIUM SULFATE / D5W 1 GM/100 ML BAG IV ONE (02:47)
[2023-07-16] MEDS: DAPTOmycin 325 MG in SYRINGE 0 ML IV SCH (03:12)
[2023-07-16] MEDS: CEFEPIME 2,000 MG in SYRINGE 0 ML IV SCH (03:12)
[2023-07-16] MEDS: POTASSIUM CHLORIDE / WTR 10 MEQ/100 ML PLCT IV SCH (03:12)
[2023-07-16] MEDS: POTASSIUM CHLORIDE PWD 20 MEQ PACK PO STA (03:38)
--- NOTE | 2023-07-16 10:58 | Pharmacy Report ---
Pharmacy Glycemic Short Note 2 - Date of Service July 16, 2023 - Glycemic Short BSG Results (Last 24 hours): 07/15/23 07/15/23 07/16/23 11:55 20:36 00:40 Glucose 135 H POC Glucose 168 H 132 H 07/16/23 07:38 Glucose POC Glucose 158 H OUTPATIENT ANTIDIABETIC REGIMEN: * Lantus 30 units bid, aspart 10 units AC * A1c 9.3% 06/26/23 ASSESSMENT: 07/15: * Patient received total of 92 units of insulin yesterday, of which 60 units for basal coverage. * Today's fasting blood sugar was 135, continue current regimen * Patient developed fevers and abdominal pain, started on daptomycin & cefepime * Discussed with RN, pt is experiencing N/V, no PO intake today * Change basal insulin regimen to prevent hypoglycemia due to lack of PO intake 07/14: * Patient received total of 75 units of insulin yesterday, of which 55 units for basal coverage. * Today's fasting blood sugar was 228, continue with basal sliding scale as described below in addition to Novolog with correction factor: 15 mg/dL/unit and CHO ratio of 1 unit/5 grams of CHO . 07/13 * Patient transitioned from IV insulin drip protocol to SQ last evening per hospitalist request, labs improved, gap closed. Euglycemic, continue basal bolus and titrate to goal BSG. 07/12 * 48 year old female admitted with DKA - started on insulin infusion per DKA protocol. PMHx significant for DM2, breast cancer, obesity, arthritis. Per notes, was having intractable N/V - likely due to malignancy/chemotherapy and was not taking her insulin for the past 2 days due to illness. PLAN FOR INPATIENT GLYCEMIC CONTROL: * Basal * Lantus sliding scale - If BSG is less than 150 mg/dL, No insulin QHS If BSG is 150 mg/dL or greater, give 10 units SQ QHS * Prandial/Correctional * NovoLog SC ACHS * CF: 15 mg/dL/unit * Insulin to carb ratio: 1 unit per 5 grams CHO Consumed
--- NOTE | 2023-07-16 11:19 | Infectious Disease Consult ---
<Statement entered by Gordon Vance MD - 07/16/23 14:17> I have discussed the patient's management with the medical trainee and agree with the note. Please refer to the documented findings and plan of care. The patient's service consisted of an evaluation. I have seen and evaluated the patient. There is no well identified etiology of the febrile neutropenia. Given her upper respiratory tract symptoms, we would recommend obtaining respiratory viral panel. Though her diarrhea could be chemotherapy-induced, we would still recommend obtaining a GI panel. Meanwhile, can continue on IV cefepime. We would also recommend changing daptomycin to vancomycin if no contraindications. We might eventually end up without any apparent etiology which could be secondary to mucositis with transient dislocation of bacteria from the got into the bloodstream. We will continue to follow up on the blood culture and adjust antibiotics as needed. Gordon Vance MD Date of Service July 16, 2023 Telehealth Information I performed this visit using a real-time telehealth connection between my location and the patients location ([facility]). After connecting through interactive tele-video, patient was identified by name and date of and/or wristband check.Patient (or authorized healthcare marketing development representative) was informed that this was a telemedicine visit and it was being conducted confidentially over secure lines. My office door was closed and no one else was present in the room with me.Patient (or authorized healthcare marketing development representative) provided consent to proceed with the visit, expressed an understanding of privacy and security of the telemedicine visit, and gave permission to have a hospital marketing development representative in the room in order to assist with the visit and to conduct portions of the visit, as needed. I informed the patient (or authorized healthcare marketing development representative) that I reviewed their record and presented the opportunity for them to ask any questions regarding the visit today. The patient agreed to participate. Assessment & Plan (1) Febrile neutropenia: Plan: 48-year-old female with febrile neutropenia, neutrophils currently on a downtrend, recently started on broad-spectrum antibiotics cefepime and daptomycin. Blood cultures have been drawn are currently pending, patient seemingly only has symptoms of cough without shortness of breath and without oxygen requirement, as well as new found diarrhea that is C diff negative. Etiology could include infectious causes of diarrhea or diarrhea being sequela of another viral infection either upper respiratory / norovirus. Would recommend RVP as well as stool pathogen panel to evaluate for infectious causes and we will continue supportive care however patient does have a fever in light of her immunocompromised status we will need to be placed on broad-spectrum antibiotics and would continue with cefepime. Typically methicillin-resistant Staphylococcus coverage is indicated if there is dysfunction with an indwelling catheter and there was suspect line infection however this is not overtly evident in this case. Given the downtrend, been recent significant illness of DKA would continue with broad coverage regardless. If there is no obvious source of her fevers we will continue daptomycin for at least an additional 48 hours and if improving by Wednesday can discontinue at this time. Would recommend continuing cefepime per febrile neutropenia. - Cefepime 1 g IV q.6 hours - If no contraindication or allergies, please shift daptomycin to Vancomycin IV - respiratory viral panel -stool pathogen panel Appreciate consultation, please do not hesitate to reach out for any further questions or concerns. Jose E Gamez MD PGY4 Infectious Disease History of Present Illness History of Present Illness 48-year-old female presenting with DKA with a past medical history metastatic breast cancer status post chemotherapy (Eribulin), type 1 diabetes mellitus. Patient initially presented due to missing multiple insulin doses due to her illness of nausea/vomiting, she was started on insulin drip enter DKA is now resolved. Complications include bicytopenia with WBC initially 1.9, anemia requiring PRBCs. Patient initially with fever 38.2, fever spike 24 hours 38.9 with total neutrophil count 1.29 on admission, WBC currently 0.87. With spike a fever patient was initiated on daptomycin, cefepime for neutropenic fever. Chest x-ray on admission with right middle lung consolidative opacities and red emonstration of skeletal metastases of her known cancer. Patient does have a left subclavian port catheter in place Without any dysfunction, erythema, redness, pain. Patient denies any fevers, chills however does note she has had diarrhea for the past 2 days, up to 6 episodes per day, watery without blood, C diff is negative. She does note she has a younger family member as well as others who have multiple sicknesses and of note patient was tested positive for RSV as well as COVID, not COVID-19 in the past 6 months. Allergies Allergy/AdvReac Type Severity Reaction Status Date / Time No Known Allergies Allergy Verified 04/19/23 17:28 Home Medications Medication Instructions Recorded Confirmed Type insulin aspart U-100 100 unit/mL 10 sliding scale dose subcut AC 06/25/23 07/13/23 History (3 mL) subcutaneous pen (Novolog FlexPen U-100 Insulin aspart) insulin glargine 100 unit/mL (3 30 unit subcut BID 06/25/23 07/13/23 History mL) subcutaneous pen (Lantus Solostar U-100 Insulin) ondansetron 8 mg disintegrating 8 mg translingual BID PRN Nausea 06/25/23 07/13/23 History tablet And Vomiting oxycodone 20 mg tablet 20 mg PO Q4H PRN severe cancer 07/01/23 07/13/23 Rx breakthru pain 1 month #180 tabs olanzapine 5 mg tablet (Zyprexa) 5 mg PO BID #60 tabs 07/12/23 07/13/23 Rx Patient History Medical History DM type 2 (diabetes mellitus, type 2) Breast cancer metastasized to bone History of COVID-19 12/2020 + 12/2021 > residual taste dysfunction and feeling of need to clear throat Bilateral breast cancer Arthritis Liver spots "Mets from cancer" Depression with anxiety Peripheral neuropathy Heart palpitations R/t anxiety per patient History of small bowel obstruction Hx bowel obstruction Hypothyroidism No current meds Surgical History History of tubal ligation Port-A-Cath in place (04/30/22) Insertion Access Port left subclavian with Fluoroscopy(Left) - Chad Banuelos DO History of surgery Left Excisional Debridement of Buttock Wound Nausea and vomiting after administration of anesthetic agent "EXTREME" History of vascular access device PORT INSERTION/REMOVAL History of tooth extraction History of endometrial ablation History of bowel resection D/T BOWEL OBSTRUCTION History of lung surgery Left thoracoscopy with wedge resection left lower lobe Dr. Damico 03/29/2018 History of dilatation and curettage H/O hernia repair Hx of section x3 S/P lumpectomy, left breast LEFT ARM LIMB RESTRICTION Family History Mother , 77yo Diabetes Heart disease Aortic valve replacement Mitral valve calcifications UTI (urinary tract infection) Father , 62yo Diabetes Myocardial infarction Hypertension Stroke Brother Diabetes Myocardial infarction Cardiac stents Pacemaker Hypertension Sister No problems noted. Daughter No problems noted. Son No problems noted. Son No problems noted. Other No family history of adverse response to anesthesia Social History Smoking Status: Never smoker Second Hand Exposure: No; Do You Dip or Chew Tobacco: No; Hx Alcohol Use: No Hx Substance Use: Yes Last Used Substance: Unknown Last Used Substance Other:: ONLY USES MEDICAL MARIJUANA (VAPING) FOR PAIN Substance Use Type Other:: medical Preferred Language: Chadian Communication Ability: Effective Visual Impairment: No Limitations Hearing Ability: Normal Web Design Instructor Required: No Beliefs That Will Affect Care: None marital status: Single Current Living Situation: Family Current Living Situation Comment: lives at home with 3 children 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 HEENT: Denies changes in vision and hearing. RESPIRATORY: Denies SOB and cough. CV: Denies palpitations and CP. GI: Denies abdominal pain, nausea, vomiting and diarrhea. : Denies dysuria and urinary frequency. MSK: Denies myalgia and joint pain. SKIN: Denies rash and pruritus. NEUROLOGICAL: Denies headache and syncope PSYCHIATRIC: Denies recent changes in mood. Denies anxiety and depression. Results & Data Vital Signs (Past 12 Hours) Vital Signs Temp Pulse Pulse Resp BP Pulse Ox O2 Del Method 07/16/23 10:42 Room Air 07/16/23 10:35 62 07/16/23 08:15 37.2 C 97 H 23 110/72 96 Room Air 07/16/23 03:24 37.5 C 95 H 16 107/68 95 Room Air 07/16/23 01:26 105 H 07/16/23 00:15 38.9 C H 120 H 20 138/74 96 Room Air Laboratory Results 07/16/23 00:40 Aerobic Blood Culture - Pending Blood Anaerobic Blood Culture - Pending 07/16/23 00:40 Aerobic Blood Culture - Pending Blood Anaerobic Blood Culture - Pending 07/16/23 07/16/23 07/16/23 Unknown 07:38 00:40 WBC 0.87 L* RBC 2.77 L Hgb 7.9 L Hct 22.8 L MCV 82.3 MCH 28.5 MCHC 34.6 RDW Std Deviation 50.4 H RDW Coeff of Joshua 17.1 H Plt Count 214 MPV 9.5 Immature Gran % (Auto) 0.0 Neut % (Auto) 19.6 Lymph % (Auto) 70.1 [place] % (Auto) 8.0 Eos % (Auto) 0.0 Baso % (Auto) 2.3 Neut # (Auto) 0.17 L* Lymph # (Auto) 0.61 L [place] # (Auto) 0.07 L Eos # (Auto) 0.00 Baso # (Auto) 0.02 Immature Gran # (Auto) 0.00 L Absolute Nucleated RBC 0.02 Nucleated RBC % (auto) 2.3 VBG pH 7.39 VBG pCO2 32 L VBG pO2 37 VBG HCO3 19 VBG O2 Saturation 75.2 VBG Base Excess -4.6 Sodium 133 L Potassium 3.6 Chloride 104 Carbon Dioxide 19 L Anion Gap 10 BUN 12 Creatinine 0.87 Est Cr Clr Drug Dosing 102.3 Est GFR ( Amer) 92.6 Est GFR (Non-Af Amer) 79.9 BUN/Creatinine Ratio 13.8 Glucose 135 H POC Glucose 158 H Lactate 1.1 Calcium 7.0 L Phosphorus 2.2 L Magnesium 1.9 Total Bilirubin 0.8 AST 21 ALT 15 Alkaline Phosphatase 148 H Total Protein 6.2 Albumin 3.3 L Globulin 2.9 Albumin/Globulin Ratio 1.1 Procalcitonin 0.56 H Stool Occult Bld Scrn Stl C. diff Tox B Gene Negative Cdiff Gene 07/15/23 07/15/23 07/15/23 20:36 17:37 11:55 WBC RBC Hgb Hct MCV MCH MCHC RDW Std Deviation RDW Coeff of Joshua Plt Count MPV Immature Gran % (Auto) Neut % (Auto) Lymph % (Auto) [place] % (Auto) Eos % (Auto) Baso % (Auto) Neut # (Auto) Lymph # (Auto) [place] # (Auto) Eos # (Auto) Baso # (Auto) Immature Gran # (Auto) Absolute Nucleated RBC Nucleated RBC % (auto) VBG pH VBG pCO2 VBG pO2 VBG HCO3 VBG O2 Saturation VBG Base Excess Sodium Potassium Chloride Carbon Dioxide Anion Gap BUN Creatinine Est Cr Clr Drug Dosing Est GFR ( Amer) Est GFR (Non-Af Amer) BUN/Creatinine Ratio Glucose POC Glucose 132 H 168 H Lactate Calcium Phosphorus Magnesium Total Bilirubin AST ALT Alkaline Phosphatase Total Protein Albumin Globulin Albumin/Globulin Ratio Procalcitonin Stool Occult Bld Scrn Negative Stl C. diff Tox B Gene
[2023-07-16 13:02] LABS: Appearance Urine Clear (Clear); Bacteria Urine Automated 2+ (None Seen); Bilirubin Urine Negative (Negative); Blood Urine 3+ (Negative); Cast Urine Automated 0-2 /lpf (0-2); Color Urine Yellow; Epithelial Cell Urine Auto 0-2 /hpf (0-2); Glucose Urine UA Negative (Negative); Ketones Urine Trace (Negative); Leukocyte Esterase Urine Negative (Negative); Nitrite Urine Negative (Negative); Protein Urine 1+ (Negative); RBC Urine Automated >20 /hpf (0-2); Specific Gravity Urine 1.019 (1.000-1.030); Urobilinogen Urine Negative (Negative); WBC Urine Automated 0-5 /hpf (0-5); pH Urine 5.5 (4.5-7.5)
[2023-07-16 13:33] LABS: Hematocrit (blood only) 23.4 % (37.0-47.0)
--- NOTE | 2023-07-16 15:07 | Palliative Care Progress Note ---
Date of Service July 16, 2023 Assessment & Plan (1) Cancer related pain: Plan: Dilaudid 1mg q2h prn, averaging 7mg daily (2) Therapeutic opioid-induced constipation (OIC): Plan: diarrhea and fevers since overnight reduced Senna S to 1 tab daily (3) Intractable nausea and vomiting: Plan: Continue Aloxi IV daily (4) Depression: (5) Advanced care planning/counseling discussion: Plan: Face to face at bedside with pt for 24min She is despondent over her decline/weakness/not tolerating chemo and now worsening symptoms frustrated and worried about possibly having covid again with the GI manifestations feels this will definitely affect ability to have more chemo and then she will further decline from her cancer feels alone and isolated continues to worry about children but does not want to discuss options for making guardianship plans. (6) Palliative care by specialist: (7) Breast cancer metastasized to bone: Plan Thank you for allowing us to participate in the ongoing care of this patient. Please don't hesitate to call or page with any additional concerns. Dr. Luna Limon DNP Director, Palliative Care Admission and Anticipated Discharge Date Admission Date: July 13, 2023 Subjective Yamilka feels about 15% improved, pain mgt better with q2h prn but does not want further dose increase or changes nausea ok, but overall not a lot better not able to tolerate a lot of PO and has not been able to signif increase her hydration not feeling hungry at all very tired, wants to sleep has been having more diarrhea and spiked a fever last night, tells me she is waiting to have another COVID swab done still vomiting herb when taking PO meds. She has a lot of trouble taking pills She is using Dilaudid 7mg in past 24hr despondent today. stating "why the f does it even matter if I don't take the pills, I'm dying anyway!" remains intermittently tearful Review of Systems Review of Systems: All systems reviewed & are unremarkable except as noted in Subjective Physical Exam Physical Exam: Chronically ill appearing, tired appearing bitemp wasting, alopecia/chemo related; perrla, EOMIs Neck supple, no stridor, edentulous, MM dry Resp effort WAL, no use of accessory muscles, mild conversational dyspnea S1S2 Abd soft, NTP, BS+ Anterior to lateral left ribs/chest and back +TTP +generalized weakness paraspinal tenderness AAOx3 Tearful throughout this visit, emotional distress+, depressed mood+, anxious+ skin dry Results & Data Vital Signs (Past 12 Hours) Vital Signs Temp Pulse Pulse Resp BP Pulse Ox O2 Del Method 07/16/23 11:07 37.4 C 97 H 22 114/75 94 Room Air 07/16/23 10:42 Room Air 07/16/23 10:35 62 07/16/23 08:15 37.2 C 97 H 23 110/72 96 Room Air 07/16/23 03:24 37.5 C 95 H 16 107/68 95 Room Air Laboratory Results Abnormal lab results 07/15/23 07/16/23 07/16/23 Range/Units 20:36 00:40 07:38 WBC 0.87 L* (4.8-10.8) K/ul RBC 2.77 L (4.20-5.40) M/uL Hgb 7.9 L (12.0-16.0) g/dl Hct 22.8 L (37.0-47.0) % RDW Std Deviation 50.4 H (36.4-46.3) fL RDW Coeff of Joshua 17.1 H (11.5-14.5) % Neut # (Auto) 0.17 L* (1.40-6.50) K/uL Lymph # (Auto) 0.61 L (1.20-3.40) K/uL [place] # (Auto) 0.07 L (0.11-0.59) K/uL Immature Gran # (Auto) 0.00 L (0.01-0.20) K/uL VBG pCO2 32 L (38-50) mmHg Sodium 133 L (136-145) mmol/L Carbon Dioxide 19 L (21-32) mmol/L Glucose 135 H (70-99(Fasting)) mg/dl POC Glucose 132 H 158 H (70-99) mg/dl Calcium 7.0 L (8.6-10.3) mg/dl Phosphorus 2.2 L (2.5-4.9) mg/dl Alkaline Phosphatase 148 H (34-104) U/L Albumin 3.3 L (3.4-5.0) gm/dl Procalcitonin 0.56 H (0-0.5) ng/ml Urine Protein (Negative) Urine Ketones (Negative) Urine Blood (Negative) Urine RBC (Auto) (0-2) /hpf Urine Bacteria (Auto) (None Seen) 07/16/23 07/16/23 07/16/23 Range/Units 11:29 12:20 12:53 WBC (4.8-10.8) K/ul RBC (4.20-5.40) M/uL Hgb 8.0 L (12.0-16.0) g/dl Hct 23.4 L (37.0-47.0) % RDW Std Deviation (36.4-46.3) fL RDW Coeff of Joshua (11.5-14.5) % Neut # (Auto) (1.40-6.50) K/uL Lymph # (Auto) (1.20-3.40) K/uL [place] # (Auto) (0.11-0.59) K/uL Immature Gran # (Auto) (0.01-0.20) K/uL VBG pCO2 (38-50) mmHg Sodium (136-145) mmol/L Carbon Dioxide (21-32) mmol/L Glucose (70-99(Fasting)) mg/dl POC Glucose 163 H (70-99) mg/dl Calcium (8.6-10.3) mg/dl Phosphorus (2.5-4.9) mg/dl Alkaline Phosphatase (34-104) U/L Albumin (3.4-5.0) gm/dl Procalcitonin (0-0.5) ng/ml Urine Protein 1+ H (Negative) Urine Ketones Trace H (Negative) Urine Blood 3+ H (Negative) Urine RBC (Auto) >20 H (0-2) /hpf Urine Bacteria (Auto) 2+ H (None Seen) Diagnostic Findings Chest X-Ray 07/13/23 10:15 XR chest 1V portable HISTORY: 48 years-old Female weakness COMPARISON: 05/23/2023 TECHNIQUE: AP view the chest FINDINGS: Cardiac silhouette is enlarged. Limited exam secondary to patient rotation. Left subclavian [id number] catheter. No pneumothorax or pleural effusion. Peripheral airspace opacities within the right mid lung and right lung base redemonstrated. Multifocal skeletal metastasis are again seen. Chronic pathologic rib fractures. IMPRESSION: 1. Ill-defined peripheral consolidative opacities within the right mid lung and right lung base have mildly worsened from the 05/23/2023 exam. 2. Multifocal skeletal metastasis are demonstrated. ACT 112: Negative or not required by law. The above report was generated using voice recognition software. It may contain grammatical, syntax or spelling errors. Electronically signed by: Ruddy Chen M.D. 07/13/2023 11:26 AM PG Care Time/CCT Total # of Minutes Spent Total Time Spent with Patient: Total time spent is greater than 50% in coordination of care (as documented) at patient's floor/unit and/or counseling patient: I spent 64 minutes overall addressing this case: 10 min in medical data review/discussion with referring provider(s) and/or preparation for the visit 10 min in direct interaction with the patient/exam 24 min in Advance Care Planning/Goals of Care discussions as detailed above in note (must be >16min) 5 min in subsequent review and synthesis of assessment and plan 15 min communicating with other providers regarding the patient's case: nursing, primary team, oncology Advanced Care Planning 93098 Advanced Care Planning 30 [place] [address] SUB INP/OBS CARE 3/50MIN (25 - SIGNIFICANT, SEPARATELY IDENTIFIABLE ) Patient Type New Medical Decision Making High Complexity Diagnoses Cancer related pain G89.3 Therapeutic opioid-induced constipation (OIC) K59.03; T40.2X5A Intractable nausea and vomiting R11.2 Severe episode of recurrent major depressive disorder, without psychotic features F33.2 Active/Remission status: currently active Depression Type: major depressive disorder Major depression episode severity: severe Major depression recurrence: recurrent Psychotic features: without psychotic features Advanced care planning/counseling discussion Z71.89 Palliative care by specialist Z51.5 Carcinoma of breast metastatic to bone, unspecified laterality C50.919; C79.51 Laterality: unspecified laterality Additional Codes Advanced Care Planning - 11682 Advanced Care Planning 30 Min: [id number] Advanced Care Planning 30 Min ([id number]) (4) Depression Active/Remission status: currently active Depression Type: major depressive disorder Major depression episode severity: severe Major depression recurrence: recurrent Psychotic features: without psychotic features Qualified Code(s): F33.2 - Major depressive disorder, recurrent severe without psychotic features (7) Breast cancer metastasized to bone Laterality: unspecified laterality Qualified Code(s): C50.919 - Malignant neoplasm of unspecified site of unspecified female breast; C79.51 - Secondary malignant neoplasm of bone
[2023-07-16] MEDS ORDERED: VANCOMYCIN CONSULT ACTIVE PRN (15:23)
--- NOTE | 2023-07-16 15:27 | Hospitalist Progress Note ---
Date of Service July 16, 2023 Assessment & Plan (1) Neutropenia: (2) DKA (diabetic ketoacidosis): Plan 48-year-old female with PMH of metastatic breast cancer on chemotherapy, T2DM on insulin, hypothyroidism, hypercalcemia, depression with anxiety, peripheral neuropathy, SBO presented to the ED 07/12 with complaint of nausea, vomiting, generalized pain. Patient stated that she felt too weak to keep up with insulin use for few days prior to arrival. She is being managed for the following: Diabetic ketoacidosis: Present at admission, status post DKA protocol, glycemic pharmacy on board, resolved. Uncontrolled T2DM: A1c 9.3 in May 2023. Patient on insulin at home. Glycemic pharmacy managing, family educator consult. Intractable nausea and vomiting: Present at admission, likely multifactorial due to underlying malignancy/need for chemotherapy/DKA at presentation. Currently receiving Aloxi. Currently getting better. Continue with home olanzapine. Continue to monitor. Promethazine prn. Bicytopenia: Neutropenia and anemia Neutropenic fever: first noticed 07/14-07/15 night. at presentation: WBC of 1.4 and hemoglobin of 9.0. Neutrophils 0.59K Afebrile, denies blood in sputum or stool. Patient under chemotherapy as OP, likely could be cause for bicytopenia. Pt reports no blood/black stool. fobt neg. s/p 1 unit prbc 07/13. Hb stable around 8 neutropenic precaution, had fever 07/14-07/15 night, started on dapto and cefepime 07/15. No UA, Occ. cough w/ scant clear sputum, c diff is neg. ID evaled. agrees w/ cefepime, recs vanc over dapto. Oncology consult for further recommendation. No obvious signs of infection at the moment. follow blood and urine culture. sent stool pcr and resp panel per id recs. Hypocalcemia and hypomagnesemia: Monitor and replete. Cancer related pain: Continue home oxycodone 20 mg for moderate pain, c/w IV Dilaudid for severe pain Patient was to start scheduled morphine 30 mg every 8 hours however she reports that she is awaiting insurance approval Palliative consult, appreciate recs. Breast cancer metastasized to bone: Follows with Dr. Vazquez at [facility] Currently receiving Eribulin, last infusion 07/11 DVT PROPHYLAXIS: SQ Lovenox will be held due to anemia, monitor HnH closely. Admission and Anticipated Discharge Date Admission Date: July 13, 2023 Subjective Patient was seen and examined at bedside. Patient was lying in bed, on room air, NAD. Pt had some N, V yesterday afternoon which she reports is improving today. Wants to adv diet, RN communicated to ADAT. denies any increase in her chronic pain. Has loose stool, continue to hold laxatives. Patient reports some improvement in her tiredness/weakness today. Overnight developed fever, antibiotic started in the line of neutropenic fever. Pt denies cough, pain and burning while passing urine, abdominal pain and febrile episodes. Physical Exam Physical Exam: GENERAL: Alert and oriented x3. NAD, on RA. Appears ill/sick/frail/pale. HEENT: no pallor, no icterus. Pupils equal, round and reactive to light. Oral mucosa moist. NECK: No JVD, no neck masses. HEART: S1 and S2 heard. Regular rate and rhythm. No murmur, no gallop. RESPIRATORY SYSTEM: Normal AP diameter. No accessory muscle use. No wheezing, no crackles. ABDOMEN: Soft, bowel sounds present, nontender, no distention. CENTRAL NERVOUS SYSTEM: No facial droop. Speech is clear. Obeys simple commands. Moves extremities. EXTREMITIES: No edema, no erythema seen. Left upper chest port - no signs of infection. appears healthy. Results & Data Results & Data Vital Signs (Past 12 Hours) Vital Signs Temp Pulse Pulse Resp BP Pulse Ox O2 Del Method 07/16/23 11:07 37.4 C 97 H 22 114/75 94 Room Air 07/16/23 10:42 Room Air 07/16/23 10:35 62 07/16/23 08:15 37.2 C 97 H 23 110/72 96 Room Air 07/16/23 03:24 37.5 C 95 H 16 107/68 95 Room Air
[2023-07-16] MEDS: VANCOMYCIN HCL 2,000 MG in SODIUM CHLORIDE 0.9% 500 ML IV ONE (16:17)
[2023-07-16 17:43] LABS: Adenovirus PCR Not Detected (NotDetected); Bordetella parapertussis PCR Not Detected (NotDetected); Bordetella pertussis PCR Not Detected (NotDetected); Chlamydia pneumoniae PCR Not Detected (NotDetected); Coronavirus 229E PCR Not Detected (NotDetected); Coronavirus CoV-2 (COVID19)PCR Not Detected (NotDetected); Coronavirus HKU1 PCR Not Detected (NotDetected); Coronavirus NL63 PCR Not Detected (NotDetected); Coronavirus OC43PCR Not Detected (NotDetected); Human Metapneumovirus PCR Not Detected (NotDetected); Influenza A PCR Not Detected (NotDetected); Influenza B PCR Not Detected (NotDetected); Mycoplasma pneumoniae PCR Not Detected (NotDetected); Parainfluenza Virus 1 PCR Not Detected (NotDetected); Parainfluenza Virus 2 PCR Not Detected (NotDetected); Parainfluenza Virus 3 PCR DETECTED (NotDetected); Parainfluenza Virus 4 PCR Not Detected (NotDetected); Respiratory Syncytial VirusPCR Not Detected (NotDetected); Rhinovirus/Enterovirus PCR Not Detected (NotDetected)
--- NOTE | 2023-07-16 20:36 | Communication Note ---
Date of Service: July 16, 2023 Patient noted to have white spots on the tongue as per RN. AP Oral thrush Nystatin course
[2023-07-16] MEDS: NYSTATIN SUSP 500,000 U/5 ML UDC PO SCH (21:38)
[2023-07-16] MEDS: LANTUS PER UNIT CHARGE SC SCH (21:40)
[2023-07-17 02:26] LABS: Adenovirus F 40/41 PCR Not Detected (NotDetected); Astrovirus PCR Not Detected (NotDetected); Campylobacter PCR Not Detected (NotDetected); Cryptosporidium PCR Not Detected (NotDetected); Cyclospora cayetanensis PCR Not Detected (NotDetected); Entamoeba histolytica PCR Not Detected (NotDetected); Enteroaggregative E.coli(EAEC) Not Detected (NotDetected); Enteropathogenic E.coli (EPEC) Not Detected (NotDetected); Enterotoxigenic E.coli (ETEC) Not Detected (NotDetected); Giardia lamblia PCR Not Detected (NotDetected); Norovirus GI/GII PCR Not Detected (NotDetected); Plesiomonas shigelloides PCR Not Detected (NotDetected); Rotavirus A PCR Not Detected (NotDetected); Salmonella PCR Not Detected (NotDetected); Sapovirus PCR Not Detected (NotDetected); Shiga-like Toxin E.coli (STEC) Not Detected (NotDetected); Shigella/Enteroinvasive E.coli Not Detected (NotDetected); Vibrio cholerae PCR Not Detected (NotDetected); Vibrio species PCR Not Detected (NotDetected); Yersinia enterocolitica PCR Not Detected (NotDetected)
[2023-07-17] MEDS: VANCOMYCIN HCL 1,250 MG in SODIUM CHLORIDE 0.9% 250 ML IV SCH (03:42)
[2023-07-17] MEDS: ONDANSETRON INJ 2 MG/ML 2 ML VIAL IV STA (03:42)
[2023-07-17 07:06] LABS: Calcium 6.8 mg/dl (8.6-10.3); Creatinine Clr Calc Pharmacy 106.9 ml/min; Est GFR (African American) 102.5 ml/min; Est GFR (Non-African American) 88.4 ml/min; Magnesium 1.9 mg/dl (1.7-2.4); Phosphorus 1.7 mg/dl (2.5-4.9); Potassium 3.9 mmol/L (3.5-5.1)
[2023-07-17 07:34] LABS: Hematocrit (blood only) 21.8 % (37.0-47.0); Hemoglobin 7.4 g/dl (12.0-16.0); Mean Corpuscular Hemoglobin 28.5 pg (25.0-34.0); Mean Corpuscular Hgb Conc 33.9 g/dL (32.0-36.0); Mean Corpuscular Volume 83.8 fL (80.0-100.0); Mean Platelet Volume 9.6 fL (9.4-12.4); Nucleated RBC # (auto) 0.02 K/uL (0.00-0.12); Nucleated RBC % (auto) 1.5 %; Platelet Count 217 K/uL (130-400); RDW Coefficient of Variation 17.4 % (11.5-14.5); RDW Standard Deviation 52.9 fL (36.4-46.3)
[2023-07-17 07:55] LABS: Basophils # (auto) 0.03 K/uL (0.00-0.20); Basophils % (auto) 2.3 %; Immature Granulocytes # (auto) 0.01 K/uL (0.01-0.20); Immature Granulocytes % (auto) 0.8 %; Lymphocytes # (auto) 0.61 K/uL (1.20-3.40); Lymphocytes % (auto) 46.9 %; Monocytes # (auto) 0.21 K/uL (0.11-0.59); Monocytes % (auto) 16.2 %; Neutrophils # (auto) 0.44 K/uL (1.40-6.50); Neutrophils % (auto) 33.8 %; Polychromasia 1+; Tear Drop Cells 1+
[2023-07-17] MEDS: LOPERAMIDE HCL 2 MG CAP PO PRN (08:36)
--- NOTE | 2023-07-17 09:16 | Pharmacy Report ---
Pharmacy PK ABX Note - Date of Service July 17, 2023 - Assessment and Plan Laboratory Tests 07/16/23 16:05 Parainfluenza 3 (PCR) DETECTED A Assessment 48 year old F receiving IV Dapto + Cefepime for treatment of neutropenic fever, daptomycin changed to Vancomycin per ID Consult. Blood and urine cultures pending, stool biofire negative, positive for parainfluenza 3. Afebrile most of today, WBC trending back up. Day 2 antimicrobial therapy. Plan Vancomycin * Loading dose: 2000 mg IV x 1 * Maintenance dose: 1250 mg IV every 12 hours * Regimen is predicted to achieve target AUC/EMELI of 400-600 mg/L.hr * Pharmacy has transitioned to AUC monitoring for vancomycin. AUC/EMELI is the preferred PK/PD target and is associated with decreased risk of nephrotoxicity compared to traditional trough targets. * Random level ordered for: 07/18/23 Cefepime 2g IV Q8H Pharmacy will continue to follow and will adjust dose/frequency as necessary. Thank you.
[2023-07-17] MEDS ORDERED: POTASSIUM PHOS 3 MMOL/1 ML INFUSION IV STA (09:55)
[2023-07-17] MEDS: LANTUS PER UNIT CHARGE SC SCH (10:47)
[2023-07-17] MEDS: POTASSIUM PHOSPHATE 21 MMOL in SODIUM CHLORIDE 0.9% 500 ML IV ONE (10:48)
[2023-07-17 13:28] LABS: Hematocrit (blood only) 22.5 % (37.0-47.0); Hemoglobin 7.7 g/dl (12.0-16.0)
[2023-07-17] MEDS: PROMETHAZINE HCL 12.5 MG in SODIUM CHLORIDE 0.9% 50 ML IV STA (15:45)
--- NOTE | 2023-07-17 15:54 | Hospitalist Progress Note ---
Date of Service July 17, 2023 Assessment & Plan (1) Neutropenia: (2) DKA (diabetic ketoacidosis): Plan 48-year-old female with PMH of metastatic breast cancer on chemotherapy, T2DM on insulin, hypothyroidism, hypercalcemia, depression with anxiety, peripheral neuropathy, SBO presented to the ED 07/12 with complaint of nausea, vomiting, generalized pain. Patient stated that she felt too weak to keep up with insulin use for few days prior to arrival. She is being managed for the following: Diabetic ketoacidosis: Present at admission, status post DKA protocol, glycemic pharmacy on board, resolved. Uncontrolled T2DM: A1c 9.3 in May 2023. Patient on insulin at home. Glycemic pharmacy managing, asthma educator consult. Intractable nausea and vomiting: Present at admission, likely multifactorial due to underlying malignancy/need for chemotherapy/DKA at presentation. Currently receiving Aloxi. Continue with home olanzapine [pt refusing likely 2/2 n/v, RN advised to offer after iv nausea meds are given to maintain compliance]. Continue to monitor. Promethazine prn. Will use LR at 80 ml/hr as w/ poor po intake and loose stools. Bicytopenia: Neutropenia and anemia Neutropenic fever: first noticed 07/14-07/15 night. Parainfluenza 3 URTI At presentation: WBC of 1.4 and hemoglobin of 9.0. Neutrophils 0.59K Afebrile, denies blood in sputum or stool. Patient under chemotherapy as OP, likely could be cause for bicytopenia. Pt reports no blood/black stool. fobt neg. s/p 1 unit prbc 07/13. Hb stable ar ound 8 Neutropenic precaution, had fever 07/14-07/15 night, started on dapto and cefepime 07/15 --> around this time no Pain/burn w/ urine and Occ cough w/ scant clear sputum. 07/15 UA neg for UTI, 07/15 Bl and U Cx are pending. 07/15 RPP +ve for Parainfl 3; 07/16 stool PCR neg incl c diff. ID evaluated 07/15, recommends cefepime and vancomycin. Continue antibiotic, follow-up with ID on Wednesday. WBC improving, patient has been afebrile. Monitor clinically. IV fluids given loose stool associated likely with viral URTI. c/w probiotic, imodium and psyllium fiber. Hypocalcemia and hypomagnesemia: Monitor and replete. Cancer related pain: Continue home oxycodone 20 mg for moderate pain, c/w IV Dilaudid for severe pain Patient was to start scheduled morphine 30 mg every 8 hours however she reports that she is awaiting insurance approval Palliative consult, appreciate recs. Breast cancer metastasized to bone: Follows with Dr. Vazquez at [facility] Currently receiving Eribulin, last infusion 07/11 DVT PROPHYLAXIS: SQ Lovenox will be held due to anemia, monitor HnH closely. Admission and Anticipated Discharge Date Admission Date: July 13, 2023 Subjective Patient was seen and examined at bedside. Patient was lying in bed, on room air, NAD. Pt had some N, V multifactorila, chemo related vs viral urti. Also has loose stools. Pt advised to take her olanzipine as it helps w/ N,V. RN advised to offer Pt her meds after iv nausea meds to maintain compliance. Also RN communicated to provide Pedialyte solution by bed side. there is a nursing order which i have placed for Pedialyte. Nursing Basilia has been made aware. Denies any increase in her chronic pain. Has loose stool, continue to hold laxatives. IVF and symptomatic mx. monitor and replete electrolytes. Patient reports tiredness/weakness today. Pt has been afebrile has some dry cough. No abd pain, or pain or burn while passing urine. Physical Exam Physical Exam: GENERAL: Alert and oriented x3. NAD, on RA. Appears ill/sick/frail/pale. HEENT: no pallor, no icterus. Pupils equal, round and reactive to light. Oral mucosa moist. NECK: No JVD, no neck masses. HEART: S1 and S2 heard. Regular rate and rhythm. No murmur, no gallop. RESPIRATORY SYSTEM: Normal AP diameter. No accessory muscle use. No wheezing, no crackles. ABDOMEN: Soft, bowel sounds present, nontender, no distention. CENTRAL NERVOUS SYSTEM: No facial droop. Speech is clear. Obeys simple commands. Moves extremities. EXTREMITIES: No edema, no erythema seen. Left upper chest port - no signs of infection. appears healthy. Results & Data Results & Data Vital Signs (Past 12 Hours) Vital Signs Temp Pulse Resp BP Pulse Ox O2 Del Method 07/17/23 15:15 36.5 C 111 H 18 156/84 H 98 Room Air 07/17/23 11:08 37.0 C 92 H 18 119/70 100 Room Air 07/17/23 08:00 Room Air 07/17/23 07:20 37.1 C 94 H 18 117/75 97 Room Air 07/17/23 03:51 36.9 C 98 H 18 107/73 96 Room Air
[2023-07-17] MEDS: LACTATED RINGER'S 1,000 ML IV SCH (16:18)
[2023-07-18 07:30] LABS: Hematocrit (blood only) 22.1 % (37.0-47.0); Hemoglobin 7.4 g/dl (12.0-16.0); Mean Corpuscular Hemoglobin 28.5 pg (25.0-34.0); Mean Corpuscular Hgb Conc 33.5 g/dL (32.0-36.0); Mean Platelet Volume 9.4 fL (9.4-12.4); Nucleated RBC # (auto) 0.03 K/uL (0.00-0.12); Nucleated RBC % (auto) 1.1 %; Platelet Count 202 K/uL (130-400); RDW Coefficient of Variation 17.6 % (11.5-14.5); RDW Standard Deviation 53.3 fL (36.4-46.3); White Blood Count 2.85 K/ul (4.8-10.8)
[2023-07-18 07:51] LABS: BUN Creatinine Ratio 13.2 (10-20); Calcium 7.2 mg/dl (8.6-10.3); Creatinine Clr Calc Pharmacy 112.5 ml/min; Est GFR (Non-African American) 94.1 ml/min; Magnesium 1.8 mg/dl (1.7-2.4); Potassium 3.5 mmol/L (3.5-5.1)
--- NOTE | 2023-07-18 10:13 | Pharmacy Report ---
Pharmacy PK ABX Note - Date of Service July 18, 2023 - Assessment and Plan Laboratory Tests 07/16/23 16:05 Parainfluenza 3 (PCR) DETECTED A Assessment 48 year old F receiving IV Vancomycin + Cefepime for treatment of neutropenic fever. Blood and urine cultures: no growth Stool biofire negative Positive for parainfluenza 3. WBC improving, afebrile. Day 3 antimicrobial therapy. Hospitalist to follow up with ID Wednesday Plan Vancomycin * Current regimen: 1250 mg IV every 12 hours * Random level obtained 07/18/23 resulted as 22.8 mcg/mL. This is predicted to achieve target AUC/EMELI of 400-600 mg/L.hr * Predicted AUC at steady state: 589 mg/L.hr * Continue 1250 mg IV every 12 hours * Will repeat level in the next 48-72 hours if therapy is continued and/or change in patient clinical status Cefepime 2g IV Q8H Pharmacy will continue to follow and will adjust dose/frequency as necessary. Thank you.
[2023-07-18] MEDS: POTASSIUM CHLORIDE / WTR 10 MEQ/100 ML PLCT IV SCH (13:41)
[2023-07-18] MEDS: POTASSIUM CHLORIDE CRTAB 20 MEQ TABCR PO STA (13:42)
[2023-07-18] MEDS: POT PHOSPHATE MONOBASIC W/ SOD TAB PO SCH (14:07)
[2023-07-18] MEDS ORDERED: POTASSIUM PHOS 3 MMOL/1 ML INFUSION IV STA (14:13)
--- NOTE | 2023-07-18 14:39 | Oncology Consultation ---
Date of Consultation July 18, 2023 History of Present Illness Attending Physician: Maurisio Pettit MD Allergies Allergy/AdvReac Type Severity Reaction Status Date / Time No Known Allergies Allergy Verified 04/19/23 17:28 Home Medications Medication Instructions Recorded Confirmed Type insulin aspart U-100 100 unit/mL 10 sliding scale dose subcut AC 06/25/23 07/13/23 History (3 mL) subcutaneous pen (Novolog FlexPen U-100 Insulin aspart) insulin glargine 100 unit/mL (3 30 unit subcut BID 06/25/23 07/13/23 History mL) subcutaneous pen (Lantus Solostar U-100 Insulin) ondansetron 8 mg disintegrating 8 mg translingual BID PRN Nausea 06/25/23 07/13/23 History tablet And Vomiting oxycodone 20 mg tablet 20 mg PO Q4H PRN severe cancer 07/01/23 07/13/23 Rx breakthru pain 1 month #180 tabs olanzapine 5 mg tablet (Zyprexa) 5 mg PO BID #60 tabs 07/12/23 07/13/23 Rx Patient History Medical History DM type 2 (diabetes mellitus, type 2) Breast cancer metastasized to bone History of COVID-19 12/2020 + 12/2021 > residual taste dysfunction and feeling of need to clear throat Bilateral breast cancer Arthritis Liver spots "Mets from cancer" Depression with anxiety Peripheral neuropathy Heart palpitations R/t anxiety per patient History of small bowel obstruction Hx bowel obstruction Hypothyroidism No current meds Surgical History History of tubal ligation Port-A-Cath in place (04/30/22) Insertion Access Port left subclavian with Fluoroscopy(Left) - Chad Banuelos DO History of surgery Left Excisional Debridement of Buttock Wound Nausea and vomiting after administration of anesthetic agent "EXTREME" History of vascular access device PORT INSERTION/REMOVAL History of tooth extraction History of endometrial ablation History of bowel resection D/T BOWEL OBSTRUCTION History of lung surgery Left thoracoscopy with wedge resection left lower lobe Dr. Damico 03/29/2018 History of dilatation and curettage H/O hernia repair Hx of section x3 S/P lumpectomy, left breast LEFT ARM LIMB RESTRICTION Family History Mother , 77yo Diabetes Heart disease Aortic valve replacement Mitral valve calcifications UTI (urinary tract infection) Father , 62yo Diabetes Myocardial infarction Hypertension Stroke Brother Diabetes Myocardial infarction Cardiac stents Pacemaker Hypertension Sister No problems noted. Daughter No problems noted. Son No problems noted. Son No problems noted. Other No family history of adverse response to anesthesia Social History Smoking Status: Never smoker Second Hand Exposure: No; Do You Dip or Chew Tobacco: No; Hx Alcohol Use: No Hx Substance Use: Yes Last Used Substance: Unknown Last Used Substance Other:: ONLY USES MEDICAL MARIJUANA (VAPING) FOR PAIN Substance Use Type Other:: medical Preferred Language: [place] Communication Ability: Effective Visual Impairment: No Limitations Hearing Ability: Normal Shrimp Trawler Required: No Beliefs That Will Affect Care: Congregational marital status: Single Current Living Situation: Family Current Living Situation Comment: lives at home with 3 children 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
--- NOTE | 2023-07-18 16:11 | Hospitalist Progress Note ---
Date of Service July 18, 2023 Assessment & Plan (1) Neutropenia: (2) DKA (diabetic ketoacidosis): Plan 48-year-old female with PMH of metastatic breast cancer on chemotherapy, T2DM on insulin, hypothyroidism, hypercalcemia, depression with anxiety, peripheral neuropathy, SBO presented to the ED 07/12 with complaint of nausea, vomiting, generalized pain. Patient stated that she felt too weak to keep up with insulin use for few days prior to arrival. She is being managed for the following: Diabetic ketoacidosis: Present at admission, status post DKA protocol, glycemic pharmacy on board, resolved. Uncontrolled T2DM: A1c 9.3 in May 2023. Patient on insulin at home. Glycemic pharmacy managing, health promotion educator consult. Intractable nausea and vomiting: Present at admission, likely multifactorial due to underlying malignancy/need for chemotherapy/DKA at presentation. Currently receiving Aloxi. Continue with home olanzapine [pt refusing likely 2/2 n/v, RN advised to offer after iv nausea meds are given to maintain compliance]. Continue to monitor. Promethazine prn. c/w LR at 80 ml/hr to finish the current bag. Bicytopenia: Neutropenia and anemia Neutropenic fever: first noticed 07/14-07/15 night. Parainfluenza 3 URTI At presentation: WBC of 1.4 and hemoglobin of 9.0. Neutrophils 0.59K Afebrile, denies blood in sputum or stool. Patient under chemotherapy as OP, likely could be cause for bicytopenia. Pt reports no blood/black stool. fobt neg. s/p 1 unit prbc 07/13. Hb stable around 8 Neutropenic precaution, had fever 07/14-07/15 night, started on dapto and cefepime 07/15 --> around this time no Pain/burn w/ urine and Occ cough w/ scant clear sputum. 07/15 UA neg for UTI, 07/15 Bl and U Cx are pending. 07/15 RPP +ve for Parainfl 3; 07/16 stool PCR neg incl c diff. ID evaluated 07/15, recommends cefepime and vancomycin. Continue antibiotic, follow-up with ID on Wednesday. WBC improving, patient has been afebrile. Monitor clinically. IV fluids given loose stool associated likely with viral URTI. c/w probiotic, imodium and psyllium fiber. Hypocalcemia and hypomagnesemia: Monitor and replete. Cancer related pain: Continue home oxycodone 20 mg for moderate pain, c/w IV Dilaudid for severe pain Patient was to start scheduled morphine 30 mg every 8 hours however she reports that she is awaiting insurance approval Palliative consult, appreciate recs. Breast cancer metastasized to bone: Follows with Dr. Vazquez at [facility] Currently receiving Eribulin, last infusion 07/11 DVT PROPHYLAXIS: SQ Lovenox will be held due to anemia, monitor HnH closely. Admission and Anticipated Discharge Date Admission Date: July 13, 2023 Subjective Patient was seen and examined at bedside. Patient was lying in bed, on room air, NAD. Pt had some N, V multifactorial, chemo related vs viral urti. Also has loose stools. all improving today, appetite still poor. Pt advised to take her olanzipine as it helps w/ N,V. RN advised to offer Pt her meds after iv nausea meds to maintain compliance. Denies any increase in her chronic pain. Patient reports tiredness/weakness today slightly better. Pt has been afebrile has some dry cough. No abd pain, or pain or burn while passing urine. Physical Exam Physical Exam: GENERAL: Alert and oriented x3. NAD, on RA. Appears ill/sick/frail/pale. HEENT: no pallor, no icterus. Pupils equal, round and reactive to light. Oral mucosa moist. NECK: No JVD, no neck masses. HEART: S1 and S2 heard. Regular rate and rhythm. No murmur, no gallop. RESPIRATORY SYSTEM: Normal AP diameter. No accessory muscle use. No wheezing, no crackles. ABDOMEN: Soft, bowel sounds present, nontender, no distention. CENTRAL NERVOUS SYSTEM: No facial droop. Speech is clear. Obeys simple commands. Moves extremities. EXTREMITIES: No edema, no erythema seen. Left upper chest port - no signs of infection. appears healthy. Results & Data Results & Data Vital Signs (Past 12 Hours) Vital Signs Temp Pulse Resp BP Pulse Ox O2 Del Method 07/18/23 14:55 36.9 C 87 18 126/76 99 Room Air 07/18/23 11:33 36.7 C 89 18 115/76 100 Room Air 07/18/23 07:30 36.5 C 91 H 18 134/81 96 Room Air
[2023-07-18 17:19] LABS: Hematocrit (blood only) 22.9 % (37.0-47.0); Hemoglobin 7.7 g/dl (12.0-16.0)
[2023-07-18] MEDS: POTASSIUM PHOSPHATE 21 MMOL in SODIUM CHLORIDE 0.9% 500 ML IV ONE (18:45)
[2023-07-18] MEDS: ALTEPLASE, RECOMBINANT 1 MG/ML 2ML VIAL INSTIL ONE (22:34)
[2023-07-19] MEDS: ONDANSETRON INJ 2 MG/ML 2 ML VIAL IV PRN (00:40)
[2023-07-19 06:13] LABS: Hematocrit (blood only) 22.4 % (37.0-47.0); Hemoglobin 7.4 g/dl (12.0-16.0); Mean Corpuscular Hemoglobin 27.9 pg (25.0-34.0); Mean Corpuscular Volume 84.5 fL (80.0-100.0); Mean Platelet Volume 9.3 fL (9.4-12.4); Nucleated RBC # (auto) 0.06 K/uL (0.00-0.12); Nucleated RBC % (auto) 1.1 %; Platelet Count 207 K/uL (130-400); RDW Coefficient of Variation 17.6 % (11.5-14.5); Red Blood Count 2.65 M/uL (4.20-5.40)
[2023-07-19 06:20] LABS: BUN Creatinine Ratio 11.8 (10-20); Calcium 7.4 mg/dl (8.6-10.3); Creatinine Clr Calc Pharmacy 113.3 ml/min; Est GFR (Non-African American) 94.1 ml/min; Magnesium 1.6 mg/dl (1.7-2.4); Phosphorus 2.7 mg/dl (2.5-4.9); Potassium 3.6 mmol/L (3.5-5.1)
[2023-07-19] MEDS: HEPARIN SOD 5,000 UNIT/0.5 ML VIAL SQ SCH (09:59)
[2023-07-19] MEDS: MAGNESIUM SULFATE / D5W 1 GM/100 ML BAG IV SCH (10:17)
[2023-07-19] MEDS: POTASSIUM CHLORIDE / WTR 10 MEQ/100 ML PLCT IV SCH (10:20)
[2023-07-19 13:15] LABS: Hematocrit (blood only) 23.9 % (37.0-47.0)
--- NOTE | 2023-07-19 14:28 | Communication Note ---
Date of Service: July 19, 2023 Saw patient with the attending physician Dr. Vance via telehealth, patients fever curve has decreased and has been afebrile for over 48 hours, RVP positive for parainfluenza 3, neutropenia has resolved. Given this recommend discontinuation of all antibiotics to compelte her treatment for Febrile neutropenia Appreciate consultation, please do not hesitate to reach out for any further questions or concerns. Jose E Gamez MD PGY4 Infectious Disease
[2023-07-19] MEDS: VANCOMYCIN HCL 1,250 MG in SODIUM CHLORIDE 0.9% 250 ML IV SCH (14:48)
--- NOTE | 2023-07-19 15:00 | Hospitalist Progress Note ---
Date of Service July 19, 2023 Assessment & Plan (1) Neutropenia: (2) DKA (diabetic ketoacidosis): Plan 48-year-old female with PMH of metastatic breast cancer on chemotherapy, T2DM on insulin, hypothyroidism, hypercalcemia, depression with anxiety, peripheral neuropathy, SBO presented to the ED 07/12 with complaint of nausea, vomiting, generalized pain. Patient stated that she felt too weak to keep up with insulin use for few days prior to arrival. She is being managed for the following: Diabetic ketoacidosis: Present at admission, status post DKA protocol, glycemic pharmacy on board, resolved. Uncontrolled T2DM: A1c 9.3 in May 2023. Patient on insulin at home. Glycemic pharmacy managing, early childhood educator aide consult. Intractable nausea and vomiting: Present at admission, likely multifactorial due to underlying malignancy/need for chemotherapy/DKA at presentation. Currently receiving Aloxi. Continue with home olanzapine [pt refusing likely 2/2 n/v, advise to offer after iv nausea meds are given to maintain compliance]. Continue to monitor. Promethazine prn. Now with improving appetite and better controlled N, V per pt. Bicytopenia: Neutropenia and anemia Neutropenic fever: first noticed 07/14-07/15 night. Parainfluenza 3 URTI At presentation: WBC of 1.4 and hemoglobin of 9.0. Neutrophils 0.59K Afebrile, denies blood in sputum or stool. Patient under chemotherapy as OP, likely could be cause for bicytopenia. Pt reports no blood/black stool. fobt neg. s/p 1 unit prbc 07/13. Hb stable around 8 Neutropenic precaution, had fever 07/14-07/15 night, started on dapto and cefepime 07/15 --> around this time no Pain/burn w/ urine and Occ cough w/ scant clear sputum. 07/15 UA neg for UTI, 07/15 Bl and U Cx are pending. 07/15 RPP +ve for Parainfl 3; 07/16 stool PCR neg incl c diff. D/w ID 07/18, will dc cefepime and vanco. WBC improving, patient has been afebrile. Monitor clinically. Improvement in loose stool associated likely with viral URTI. c/w probiotic, imodium and psyllium fiber. Hypocalcemia and hypomagnesemia: Monitor and replete. Cancer related pain: Continue home oxycodone 20 mg for moderate pain, c/w IV Dilaudid for severe pain Patient was to start scheduled morphine 30 mg every 8 hours however she reports that she is awaiting insurance approval Palliative consult, appreciate recs. Breast cancer metastasized to bone: Follows with Dr. Vazquez at [facility] Currently receiving Eribulin, last infusion 07/11 DVT PROPHYLAXIS: SQ Hep, monitor HnH closely. Admission and Anticipated Discharge Date Admission Date: July 13, 2023 Subjective Patient was seen and examined at bedside. Patient was lying in bed, on room air, NAD. patient reports feeling better, reports improvement in her nausea, vomiting, loose stool. Reports improving appetite. Pt advised to take her olanzipine as it helps w/ N,V. Denies any increase in her chronic pain. Pt has been afebrile has some dry cough, Improving. No abd pain, or pain or burn while passing urine. Physical Exam Physical Exam: GENERAL: Alert and oriented x3. NAD, on RA. HEENT: no pallor, no icterus. Pupils equal, round and reactive to light. Oral mucosa moist. NECK: No JVD, no neck masses. HEART: S1 and S2 heard. Regular rate and rhythm. No murmur, no gallop. RESPIRATORY SYSTEM: Normal AP diameter. No accessory muscle use. No wheezing, no crackles. ABDOMEN: Soft, bowel sounds present, nontender, no distention. CENTRAL NERVOUS SYSTEM: No facial droop. Speech is clear. Obeys simple commands. Moves extremities. EXTREMITIES: No edema, no erythema seen. Left upper chest port - no signs of infection. appears healthy. Results & Data Results & Data Vital Signs (Past 12 Hours) Vital Signs Temp Pulse Pulse Resp BP Pulse Ox O2 Del Method 07/19/23 11:21 36.5 C 85 18 117/75 98 Room Air 07/19/23 07:07 36.5 C 85 18 101/61 96 Room Air 07/19/23 07:00 85 07/19/23 03:33 36.7 C 88 18 106/69 99 Room Air
--- NOTE | 2023-07-19 18:11 | Palliative Care Progress Note ---
Date of Service July 19, 2023 Assessment & Plan (1) Cancer related pain: Plan: Dilaudid 1mg q2h prn, averaging 6-7mg daily Discussed option of re trying TDF given her overall increasing GI intolerance and persistent / easily triggered by pills n/v. She is willing to try TDF while inpatient. With 7mg Dilaudid IV daily average = 35mg IV MS equivalent, will plan to begin 25mcg TDF trial tomorrow so long as her GI sx remain abated. (2) Therapeutic opioid-induced constipation (OIC): Plan: diarrhea improved remains on Senna S to 1 tab daily (3) Intractable nausea and vomiting: Plan: Continue Aloxi IV daily - beginning to tolerate some solids, able to take more fluids this morning but still feels queasy and has trouble with pills triggering n/v (4) Depression: (5) Advanced care planning/counseling discussion: Plan: Face to face at bedside with pt for 30min She is feeling some mood improvement with decreased n/v/d. Her family is coming today and she has some special plans underway We talked about how it has been some time since all 3 kids were with her at once. Discussed option of engaging in an art therapy legacy project and she was agreeable. despondent over her decline/weakness/not tolerating chemo and now worsening symptoms. Gayle from [employer] main office delivered one of our art therapy legacy projects kits for pt to do with her children tonight which encompasses handprints using paints on a canvas which is kept in a frame with op tion to add a family photo on the one side of the handprints. She reiterates an awareness of her mortality but remains firm in desire to continue cancer directed therapy until she cannot, to keep the chance for every bit of extra time she can gain with her children. She has been thinking of guardianship options and knows she can call [facility] legal svcs for [place] assistance. (6) Palliative care by specialist: (7) Breast cancer metastasized to bone: Plan Thank you for allowing us to participate in the ongoing care of this patient. Please don't hesitate to call or page with any additional concerns. Dr. Luna Limon DNP Director, Palliative Care Admission and Anticipated Discharge Date Admission Date: July 13, 2023 Subjective Yamilka is seated in bed, awake and alert. She feels a fair amount better with pain meds on a q2h prn regimen. she is keeping down more solid foods and has tolerated increased hydration she has not vomited today diarrhea last night,none today still tired but less demoralized, feeling hopeful and more positive today also notes it is her daughter's 11th bday and her whole family/all 3 kids, are coming to visit. She is ordering pizza for the unit and her sister is bringing cupcakes. Review of Systems Review of Systems: All systems reviewed & are unremarkable except as noted in Subjective Physical Exam Physical Exam: Chronically ill appearing, tired appearing bitemp wasting, alopecia/chemo related; perrla, EOMIs Neck supple, no stridor, edentulous, MM dry Resp effort WAL, no use of accessory muscles, mild conversational dyspnea S1S2 Abd soft, NTP, BS+ Anterior to lateral left ribs/chest and back +TTP +generalized weakness paraspinal tenderness AAOx3 not tearful today, seems to be more at peace skin dry Results & Data Vital Signs (Past 12 Hours) Vital Signs Temp Pulse Pulse Resp BP Pulse Ox O2 Del Method 07/19/23 15:30 37.0 C 90 18 102/60 98 Room Air 07/19/23 14:58 92 H 07/19/23 11:21 36.5 C 85 18 117/75 98 Room Air 07/19/23 08:00 Room Air 07/19/23 07:07 36.5 C 85 18 101/61 96 Room Air 07/19/23 07:00 85 Laboratory Results Abnormal lab results 07/18/23 07/19/23 07/19/23 Range/Units 20:27 05:37 11:19 RBC 2.65 L (4.20-5.40) M/uL Hgb 7.4 L (12.0-16.0) g/dl Hct 22.4 L (37.0-47.0) % RDW Std Deviation 53.0 H (36.4-46.3) fL RDW Coeff of Joshua 17.6 H (11.5-14.5) % MPV 9.3 L (9.4-12.4) fL Chloride 109 H (98-107) mmol/L POC Glucose 109 H 108 H (70-99) mg/dl Calcium 7.4 L (8.6-10.3) mg/dl Magnesium 1.6 L (1.7-2.4) mg/dl 07/19/23 07/19/23 Range/Units 12:53 16:17 RBC (4.20-5.40) M/uL Hgb 8.0 L (12.0-16.0) g/dl Hct 23.9 L (37.0-47.0) % RDW Std Deviation (36.4-46.3) fL RDW Coeff of Joshua (11.5-14.5) % MPV (9.4-12.4) fL Chloride (98-107) mmol/L POC Glucose 137 H (70-99) mg/dl Calcium (8.6-10.3) mg/dl Magnesium (1.7-2.4) mg/dl Diagnostic Findings Chest X-Ray 07/13/23 10:15 XR chest 1V portable HISTORY: 48 years-old Female weakness COMPARISON: 05/23/2023 TECHNIQUE: AP view the chest FINDINGS: Cardiac silhouette is enlarged. Limited exam secondary to patient rotation. Left subclavian Lcycwi-i-Zetk catheter. No pneumothorax or pleural effusion. Peripheral airspace opacities within the right mid lung and right lung base redemonstrated. Multifocal skeletal metastasis are again seen. Chronic pathologic rib fractures. IMPRESSION: 1. Ill-defined peripheral consolidative opacities within the right mid lung and right lung base have mildly worsened from the 05/23/2023 exam. 2. Multifocal skeletal metastasis are demonstrated. ACT 112: Negative or not required by law. The above report was generated using voice recognition software. It may contain grammatical, syntax or spelling errors. Electronically signed by: Ruddy Chen M.D. 07/13/2023 11:26 AM PG Care Time/CCT Total # of Minutes Spent Total Time Spent with Patient: Total time spent is greater than 50% in coordination of care (as documented) at patient's floor/unit and/or counseling patient: I spent 85 minutes overall addressing this case: 10 min in medical data review/discussion with referring provider(s) and/or preparation for the visit 15 min in direct interaction with the patient/exam 30 min in Advance Care Planning/Goals of Care discussions as detailed above in note (must be >16min) 15 min in subsequent review and synthesis of assessment and plan 15 min communicating with other providers regarding the patient's case: Advanced Care Planning 89540 Advanced Care Planning 30 [place] [address] SUB INP/OBS CARE 3/50MIN (25 - SIGNIFICANT, SEPARATELY IDENTIFIABLE ) Patient Type Established Medical Decision Making High Complexity Diagnoses Cancer related pain G89.3 Therapeutic opioid-induced constipation (OIC) K59.03; T40.2X5A Intractable nausea and vomiting R11.2 Severe episode of recurrent major depressive disorder, without psychotic features F33.2 Active/Remission status: currently active Depression Type: major depressive disorder Major depression episode severity: severe Major depression recurrence: recurrent Psychotic features: without psychotic features Advanced care planning/counseling discussion Z71.89 Palliative care by specialist Z51.5 Carcinoma of breast metastatic to bone, unspecified laterality C50.919; C79.51 Laterality: unspecified laterality Additional Codes Advanced Care Planning - 87831 Advanced Care Planning 30 Min: [id number] Advanced Care Planning 30 Min ([id number]) (4) Depression Active/Remission status: currently active Depression Type: major depressive disorder Major depression episode severity: severe Major depression recurrence: recurrent Psychotic features: without psychotic features Qualified Code(s): F33.2 - Major depressive disorder, recurrent severe without psychotic f eatures (7) Breast cancer metastasized to bone Laterality: unspecified laterality Qualified Code(s): C50.919 - Malignant neoplasm of unspecified site of unspecified female breast; C79.51 - Secondary malignant neoplasm of bone
[2023-07-20 06:48] LABS: Hematocrit (blood only) 23.2 % (37.0-47.0); Hemoglobin 7.8 g/dl (12.0-16.0); Mean Corpuscular Hemoglobin 28.8 pg (25.0-34.0); Mean Corpuscular Hgb Conc 33.6 g/dL (32.0-36.0); Mean Corpuscular Volume 85.6 fL (80.0-100.0); Mean Platelet Volume 9.8 fL (9.4-12.4); Nucleated RBC # (auto) 0.15 K/uL (0.00-0.12); Nucleated RBC % (auto) 1.8 %; Platelet Count 217 K/uL (130-400); RDW Coefficient of Variation 17.9 % (11.5-14.5); RDW Standard Deviation 54.2 fL (36.4-46.3); Red Blood Count 2.71 M/uL (4.20-5.40)
[2023-07-20 07:12] LABS: BUN Creatinine Ratio 11.4 (10-20); Calcium 7.7 mg/dl (8.6-10.3); Creatinine Clr Calc Pharmacy 108.8 ml/min; Est GFR (Non-African American) 89.8 ml/min; Magnesium 1.8 mg/dl (1.7-2.4); Phosphorus 2.3 mg/dl (2.5-4.9); Potassium 3.7 mmol/L (3.5-5.1)
[2023-07-20] MEDS ORDERED: POTASSIUM PHOS 3 MMOL/1 ML INFUSION IV STA (07:57)
[2023-07-20] MEDS: DOCUSATE SODIUM/SENNA 50/8.6MG TAB PO SCH (08:52)
[2023-07-20] MEDS: POTASSIUM PHOSPHATE 21 MMOL in SODIUM CHLORIDE 0.9% 500 ML IV ONE (08:52)
[2023-07-20] MEDS: fentaNYL 25 MCG/HR TDSY TD SCH (10:59)
--- NOTE | 2023-07-20 14:18 | Pharmacy Report ---
Pharmacy Glycemic Short Note 2 - Date of Service July 20, 2023 - Glycemic Short BSG Results (Last 24 hours): 07/19/23 07/19/23 07/20/23 16:17 20:20 06:20 Glucose 112 H POC Glucose 137 H 113 H 07/20/23 07/20/23 07:22 11:35 Glucose POC Glucose 122 H 144 H OUTPATIENT ANTIDIABETIC REGIMEN: * Lantus 30 units bid, aspart 10 units AC * A1c 9.3% 06/26/23 ASSESSMENT: 07/19 * Pt's BSGs have been well-controlled on ~30 units of insulin per day for the past several days. * Antibiotics were discontinued today. * No changes to insulin regimen indicated at this time. 07/15 * Patient received total of 92 units of insulin yesterday, of which 60 units for basal coverage. * Today's fasting blood sugar was 135, continue current regimen * Patient developed fevers and abdominal pain, started on daptomycin & cefepime * Discussed with RN, pt is experiencing N/V, no PO intake today * Change basal insulin regimen to prevent hypoglycemia due to lack of PO intake 07/14 * Patient received total of 75 units of insulin yesterday, of which 55 units for basal coverage. * Today's fasting blood sugar was 228, continue with basal sliding scale as described below in addition to Novolog with correction factor: 15 mg/dL/unit and CHO ratio of 1 unit/5 grams of CHO . 07/13 * Patient transitioned from IV insulin drip protocol to SQ last evening per hospitalist request, labs improved, gap closed. Euglycemic, continue basal bolus and titrate to goal BSG. 07/12 * 48 year old female admitted with DKA - started on insulin infusion per DKA protocol. PMHx significant for DM2, breast cancer, obesity, arthritis. Per notes, was having intractable N/V - likely due to malignancy/chemotherapy and was not taking her insulin for the past 2 days due to illness. PLAN FOR INPATIENT GLYCEMIC CONTROL: * Basal * Lantus 25 units SQ daily * Prandial/Correctional * NovoLog SC ACHS * CF: 15 mg/dL/unit * Insulin to carb ratio: 1 unit per 5 grams CHO Consumed
[2023-07-20] MEDS: CHECK fentaNYL PATCH PLACEMENT SCH (15:02)
[2023-07-20] MEDS: HEPARIN 100 UNIT/ML 5ML FLUSH FLUSH PRN (15:05)
--- NOTE | 2023-07-20 17:49 | Hospitalist Progress Note ---
Date of Service July 20, 2023 Assessment & Plan (1) Neutropenia: (2) DKA (diabetic ketoacidosis): Plan 48-year-old female with PMH of metastatic breast cancer on chemotherapy, T2DM on insulin, hypothyroidism, hypercalcemia, depression with anxiety, peripheral neuropathy, SBO presented to the ED 07/12 with complaint of nausea, vomiting, generalized pain. Patient stated that she felt too weak to keep up with insulin use for few days prior to arrival. She is being managed for the following: Diabetic ketoacidosis: Present at admission, status post DKA protocol, glycemic pharmacy on board, resolved. Uncontrolled T2DM: A1c 9.3 in May 2023. Patient on insulin at home. Glycemic pharmacy managing, wellness educator consult. Intractable nausea and vomiting: Present at admission, likely multifactorial due to underlying malignancy/need for chemotherapy/DKA at presentation. Currently receiving Aloxi. Continue with home olanzapine [pt refusing likely 2/2 n/v, advise to offer after iv nausea meds are given to maintain compliance]. Continue to monitor. Promethazine prn. Now with improving appetite and better controlled N, V per pt. Bicytopenia: Neutropenia and anemia Neutropenic fever: first noticed 07/14-07/15 night. Parainfluenza 3 URTI At presentation: WBC of 1.4 and hemoglobin of 9.0. Neutrophils 0.59K Afebrile, denies blood in sputum or stool. Patient under chemotherapy as OP, likely could be cause for bicytopenia. Pt reports no blood/black stool. fobt neg. s/p 1 unit prbc 07/13. Hb stable around 8 Neutropenic precaution, had fever 07/14-07/15 night, started on dapto and cefepime 07/15 --> around this time no Pain/burn w/ urine and Occ cough w/ scant clear sputum. 07/15 UA neg for UTI, 07/15 Bl and U Cx are pending. 07/15 RPP +ve for Parainfl 3; 07/16 stool PCR neg incl c diff. D/w ID 07/18, DC'd cefepime and vanco. WBC improving, patient has been afebrile. Monitor clinically. Improvement in loose stool associated likely with viral URTI. c/w probiotic, imodium and psyllium fiber. Hypocalcemia and hypomagnesemia: Monitor and replete. Cancer related pain: Continue home oxycodone 20 mg for moderate pain, c/w IV Dilaudid for severe pain Patient was to start scheduled morphine 30 mg every 8 hours however she reports that she is awaiting insurance approval Palliative consult, appreciate recs. TDF trial per palliative recs. Monitor for gi issues. Breast cancer metastasized to bone: Follows with Dr. Vazquez at [facility] Currently receiving Eribulin, last infusion 07/11 DVT PROPHYLAXIS: SQ Hep, monitor HnH closely. Admission and Anticipated Discharge Date Admission Date: July 13, 2023 Subjective Patient was seen and examined at bedside. Patient was lying in bed, on room air, NAD. patient reports feeling better, reports improvement in her nausea, vomiting, loose stool. Reports improving appetite. last loose stool yesterday. TDF trial initiated per pall recs, if not GI issues , likely can dc danny. Pt advised to take her olanzipine as it helps w/ N,V. Denies any increase in her chronic pain. Pt has been afebrile has some dry cough, Improving. No abd pain, or pain or burn while passing urine. Physical Exam Physical Exam: GENERAL: Alert and oriented x3. NAD, on RA. HEENT: no pallor, no icterus. Pupils equal, round and reactive to light. Oral mucosa moist. NECK: No JVD, no neck masses. HEART: S1 and S2 heard. Regular rate and rhythm. No murmur, no gallop. RESPIRATORY SYSTEM: Normal AP diameter. No accessory muscle use. No wheezing, no crackles. ABDOMEN: Soft, bowel sounds present, nontender, no distention. CENTRAL NERVOUS SYSTEM: No facial droop. Speech is clear. Obeys simple commands. Moves extremities. EXTREMITIES: No edema, no erythema seen. Left upper chest port - no signs of infection. appears healthy. Results & Data Results & Data Vital Signs (Past 12 Hours) Vital Signs Temp Pulse Pulse Resp BP Pulse Ox O2 Del Method 07/20/23 16:09 89 07/20/23 15:03 36.3 C L 100 H 18 151/81 H 98 Room Air 07/20/23 11:37 36.5 C 86 18 116/69 99 Room Air 07/20/23 08:29 90 07/20/23 08:00 Room Air 07/20/23 07:20 36.9 C 85 18 105/70 97 Room Air 07/20/23 06:45 111/72
--- NOTE | 2023-07-20 19:11 | Palliative Care Progress Note ---
Date of Service July 20, 2023 Assessment & Plan (1) Cancer related pain: Plan: We have started the process of transitioning to a home regimen: * TDF 25mcg q72h started this afternoon * Begin oral dilaudid 4mg PO q3h prn BTP/ Hold for somnolence or RR less than 14; please document RR with each dose administration. * Continue IV dilaudid prn for very sev pain unrelieved by oral meds/ Hold for somnolence or RR less than 14; please document RR with each dose adminis tration. * Bowel regimen in place * She will need prior auth for TDF and Oral Dilaudid 30 days Rx done before dc otherwise she will be without meds - deferred to care mgt (2) Therapeutic opioid-induced constipation (OIC): Plan: bowel regimen in place (3) Intractable nausea and vomiting: Plan: Continue Aloxi IV daily - beginning to tolerate some solids, able to take more fluids this morning but still feels queasy and has trouble with pills triggering n/v Once she is tolerating oral intake and PO Dilaudid x 24hr, can transition to Zyprexa ODT regimen, but for another 1-2 days would continue Aloxi as it is helping her keep down food and fluids and we are seeing signif improvement (4) Depression: (5) Advanced care planning/counseling discussion: (6) Palliative care by specialist: (7) Breast cancer metastasized to bone: Plan Thank you for allowing us to participate in the ongoing care of this patient. Please don't hesitate to call or page with any additional concerns. Dr. Luna Limon DNP Director, Palliative Care Admission and Anticipated Discharge Date Admission Date: July 13, 2023 Subjective feeling better TDF started earlier this afternoon eating about 20% of meals, so far has mild nausea not vomiting, no diarrhea last BM 2 days trying to drink more but there has been abrupt change to her diet and now she is getting sugar free drinks which she cannot tolerate/add to her nausea and so she is not drinking them birthday with daughter and family went well last night Review of Systems Review of Systems: All systems reviewed & are unremarkable except as noted in Subjective Physical Exam Physical Exam: Chronically ill appearing, tired appearing but mood more upbeat, smiling, more direct eye contact/making jokes bitemp wasting, alopecia/chemo related; perrla, EOMIs Neck supple, no stridor, edentulous, MM dry Resp effort WAL, no use of accessory muscles S1S2 Abd soft, NTP, BS+ Anterior to lateral left ribs/chest and back +TTP +generalized weakness paraspinal tenderness AAOx3 not tearful today, seems to be more at peace skin dry Results & Data Vital Signs (Past 12 Hours) Vital Signs Temp Pulse Pulse Resp BP Pulse Ox O2 Del Method 07/20/23 16:09 89 07/20/23 15:03 36.3 C L 100 H 18 151/81 H 98 Room Air 07/20/23 11:37 36.5 C 86 18 116/69 99 Room Air 07/20/23 08:29 90 07/20/23 08:00 Room Air 07/20/23 07:20 36.9 C 85 18 105/70 97 Room Air Laboratory Results Abnormal lab results 07/19/23 07/20/23 07/20/23 Range/Units 20:20 06:20 07:22 RBC 2.71 L (4.20-5.40) M/uL Hgb 7.8 L (12.0-16.0) g/dl Hct 23.2 L (37.0-47.0) % RDW Std Deviation 54.2 H (36.4-46.3) fL RDW Coeff of Joshua 17.9 H (11.5-14.5) % Absolute Nucleated RBC 0.15 H (0.00-0.12) K/uL Glucose 112 H (70-99(Fasting)) mg/dl POC Glucose 113 H 122 H (70-99) mg/dl Calcium 7.7 L (8.6-10.3) mg/dl Phosphorus 2.3 L (2.5-4.9) mg/dl 07/20/23 07/20/23 Range/Units 11:35 16:20 RBC (4.20-5.40) M/uL Hgb (12.0-16.0) g/dl Hct (37.0-47.0) % RDW Std Deviation (36.4-46.3) fL RDW Coeff of Joshua (11.5-14.5) % Absolute Nucleated RBC (0.00-0.12) K/uL Glucose (70-99(Fasting)) mg/dl POC Glucose 144 H 104 H (70-99) mg/dl Calcium (8.6-10.3) mg/dl Phosphorus (2.5-4.9) mg/dl Diagnostic Findings Chest X-Ray 07/13/23 10:15 XR chest 1V portable HISTORY: 48 years-old Female weakness COMPARISON: 05/23/2023 TECHNIQUE: AP view the chest FINDINGS: Cardiac silhouette is enlarged. Limited exam secondary to patient rotation. Left subclavian Psviys-f-Vybo catheter. No pneumothorax or pleural effusion. Peripheral airspace opacities within the right mid lung and right lung base redemonstrated. Multifocal skeletal metastasis are again seen. Chronic pathologic rib fractures. IMPRESSION: 1. Ill-defined peripheral consolidative opacities within the right mid lung and right lung base have mildly worsened from the 05/23/2023 exam. 2. Multifocal skeletal metastasis are demonstrated. ACT 112: Negative or not required by law. The above report was generated using voice recognition software. It may contain grammatical, syntax or spelling errors. Electronically signed by: Ruddy Chen M.D. 07/13/2023 11:26 AM PG Care Time/CCT Total # of Minutes Spent Total Time Spent with Patient: Total time spent is greater than 50% in coordination of care (as documented) at patient's floor/unit and/or counseling patient: I spent 60 minutes overall addressing this case: 10 min in medical data review/discussion with referring provider(s) and/or preparation for the visit 20 min in direct interaction with the patient/exam 00 min in Advance Care Planning/Goals of Care discussions as detailed above in note (must be >16min) 15 min in subsequent review and synthesis of assessment and plan 15 min communicating with other providers regarding the patient's case: primary Coding [place] [id number] SUB INP/OBS CARE 3/50MIN Patient Type Established History Comprehensive Exam Comprehensive Diagnoses Cancer related pain G89.3 Therapeutic opioid-induced constipation (OIC) K59.03; T40.2X5A Intractable nausea and vomiting R11.2 Severe episode of recurrent major depressive disorder, without psychotic features F33.2 Depression Type: major depressive disorder Major depression recurrence: recurrent Active/Remission status: currently active Major depression episode severity: severe Psychotic features: without psychotic features Advanced care planning/counseling discussion Z71.89 Palliative care by specialist Z51.5 Carcinoma of breast metastatic to bone, unspecified laterality C50.919; C79.51 Laterality: unspecified laterality (4) Depression Depression Type: major depressive disorder Major depression recurrence: recurrent Active/Remission status: currently active Major depression episode severity: severe Psychotic features: without psychotic features Qualified Code(s): F33.2 - Major depressive disorder, recurrent severe without psychotic features (7) Breast cancer metastasized to bone Laterality: unspecified laterality Qualified Code(s): C50.919 - Malignant neoplasm of unspecified site of unspecified female breast; C79.51 - Secondary malignant neoplasm of bone
[2023-07-20] MEDS: HYDROmorphone INJ 1 MG/ML SYRINGE IV PRN (21:06)
[2023-07-21] MEDS: HYDROmorphone HCL 2 MG TAB PO PRN (03:05)
[2023-07-21 06:31] LABS: Hematocrit (blood only) 23.9 % (37.0-47.0); Hemoglobin 7.8 g/dl (12.0-16.0); Mean Corpuscular Hemoglobin 28.4 pg (25.0-34.0); Mean Corpuscular Hgb Conc 32.6 g/dL (32.0-36.0); Mean Corpuscular Volume 86.9 fL (80.0-100.0); Nucleated RBC # (auto) 0.21 K/uL (0.00-0.12); Nucleated RBC % (auto) 1.8 %; Platelet Count 222 K/uL (130-400); RDW Standard Deviation 54.8 fL (36.4-46.3); Red Blood Count 2.75 M/uL (4.20-5.40)
[2023-07-21 06:45] LABS: BUN Creatinine Ratio 14.1 (10-20); Calcium 8.4 mg/dl (8.6-10.3); Creatinine Clr Calc Pharmacy 120.9 ml/min; Est GFR (African American) 118.4 ml/min; Est GFR (Non-African American) 102.1 ml/min; Magnesium 1.6 mg/dl (1.7-2.4); Phosphorus 3.4 mg/dl (2.5-4.9); Potassium 4.2 mmol/L (3.5-5.1)
--- NOTE | 2023-07-21 10:48 | Hospitalist Progress Note ---
Date of Service July 21, 2023 Assessment & Plan (1) Neutropenia: (2) DKA (diabetic ketoacidosis): Plan 48-year-old female with PMH of metastatic breast cancer on chemotherapy, T2DM on insulin, hypothyroidism, hypercalcemia, depression with anxiety, peripheral neuropathy, SBO presented to the ED 07/12 with complaint of nausea, vomiting, generalized pain. Patient stated that she felt too weak to keep up with insulin use for few days prior to arrival. She is being managed for the following: Diabetic ketoacidosis: Uncontrolled T2DM: Intractable nausea and vomiting: Present at admission, likely multifactorial due to underlying malignancy/need for chemotherapy/DKA at presentation. Has been getting intravenous fluid and symptomatic management A1c 9.3 in May 2023. Patient on insulin at home. Glycemic pharmacy managing, hospice educator consult.-Appreciate pharmacy input and recommendation Blood sugar remains stable on current regimen Likely be discharged this afternoon Breast cancer metastasized to bone: Cancer related pain: Continue home oxycodone 20 mg for moderate pain, c/w IV Dilaudid for severe pain Patient was to start scheduled morphine 30 mg every 8 hours however she reports that she is awaiting insurance approval Palliative consult, appreciate recs. TDF trial per palliative recs. Monitor for gi issues. Follows with Dr. Vazquez at [facility] Currently receiving Eribulin, last infusion 07/11 The pain remains reasonably controlled and she has been ambulating without any difficulties She will be discharged home this afternoon with current doses of narcotics and appropriate follow-up Neutropenic fever: first noticed 07/14-07/15 night. Neutropenia and anemia Complicated by parainfluenza 3 URTI At presentation: WBC of 1.4 and hemoglobin of 9.0. Neutrophils 0.59K Afebrile, denies blood in sputum or stool. Patient under chemotherapy as OP, likely could be cause for bicytopenia. Neutropenic precaution, had fever 07/14-07/15 night, started on dapto and cefepime 07/15 --> around this time no Pain/burn w/ urine and Occ cough w/ scant clear sputum. 07/15 UA neg for UTI, 07/15 Bl and U Cx are pending. 07/15 RPP +ve for Parainfl 3; 07/16 stool PCR neg incl c diff. D/w ID 07/18, DC'd cefepime and vanco. WBC improving, patient has been afebrile. Monitor clinically. Improvement in loose stool associated likely with viral URTI. c/w probiotic, imodium and psyllium fiber. Remains medically stable as of 07/21/2023 CBC remains stable with hemoglobin of 7.8 Hypocalcemia and hypomagnesemia: Monitor and replete. Electrolytes are unremarkable DVT PROPHYLAXIS: SQ Hep, monitor HnH closely. Admission and Anticipated Discharge Date Admission Date: July 13, 2023 Subjective 07/21/2023 The patient was seen and examined in telemetry unit She has been stable and denies any significant pain or any other distress Denies any nausea and/or vomiting and does not have any more diarrhea She has been ambulating in the room without difficulties Wants to go home and will be discharged home this afternoon Review of Systems 2 Review of Systems: All systems reviewed and are unremarkable except as noted below Physical Exam Physical Exam: Lying in bed without any apparent distress Constitutional: well developed, well nourished and + obese; not ill appearing Eyes: PERRL, conjunctivae normal, anicteric sclerae ENMT: external ear and nose normal, oropharynx normal Neck: trachea midline, no thyromegaly Respiratory: no respiratory distress Auscultation: lungs clear to auscultation bilaterally and + crackles Cardiovascular: Rate/Rhythm: regular rate and regular rhythm; not tachycardic Heart Sounds: normal S1 and normal S2; no murmur Extremities: + edema (Trace edema bilaterally) Gastrointestinal (Abdomen): Inspection/Auscultation: normal bowel sounds; abdomen not distended Percussion/Palpation: abdomen soft; abdomen nontender Musculoskeletal: No acute arthritis involving any of the joints Neurologic: normal touch/pain/proprioception and moves all extremities; no focal motor deficits Lymphatic: no cervical or axillary lymphadenopathy Results & Data Results & Data Vital Signs (Past 12 Hours) Vital Signs Temp Pulse Pulse Resp BP Pulse Ox O2 Del Method 07/21/23 07:43 89 07/21/23 07:11 36.8 C 92 H 18 120/75 96 Room Air 07/21/23 03:07 36.7 C 98 H 20 145/82 H 98 Room Air 07/20/23 23:23 37.2 C 99 H 16 110/68 95 Room Air 07/20/23 22:39 100 H Laboratory Results Short CBC 07/21/23 Range/Units 05:35 WBC 11.50 H (4.8-10.8) K/ul Hgb 7.8 L (12.0-16.0) g/dl Hct 23.9 L (37.0-47.0) % Plt Count 222 (130-400) K/uL [facility] 07/21/23 05:35 Sodium 138 Potassium 4.2 Chloride 107 Carbon Dioxide 25 BUN 10 Creatinine 0.71 Glucose 154 H Calcium 8.4 L Medications Administered Current Inpatient Medications Acetaminophen (Acetaminophen 325 Mg Tab) 650 mg PO Q4H PRN PRN Reason: Pain or Fever Stop: 08/12/23 15:46 Last Admin: 07/16/23 00:09 Dose: 650 mg Dextrose (Dextrose 50% 50 Ml Syringe) 25 - 50 ml IV UD PRN; Protocol PRN Reason: Hypoglycemia Protocol Stop: 08/12/23 15:14 Fentanyl (Fentanyl 25 Mcg/Hr Tdsy) 1 patch TD Q3D JESSE Stop: 08/03/23 09:59 Last Admin: 07/20/23 10:59 Dose: 1 patch Glucagon (Glucagon For Inj 1 Mg Vial) 1 mg IM UD PRN; Protocol PRN Reason: Hypoglycemia Protocol Stop: 08/12/23 15:14 Glucose (Glucose 40% Gel 15 Gm Tube) 15 - 30 gm PO UD PRN; Protocol PRN Reason: Hypoglycemia Protocol Stop: 08/12/23 15:14 Glucose (Glucose 10 Tab/Tube) 4 - 8 tab PO UD PRN; Protocol PRN Reason: Hypoglycemia Protocol Stop: 08/12/23 15:14 Heparin Sodium (Porcine) (Heparin 100 Unit/Ml 5ml Flush) 5 ml FLUSH PRN PRN PRN Reason: Flush Stop: 08/14/23 23:16 Last Admin: 07/21/23 08:53 Dose: 5 ml Heparin Sodium (Porcine) (Heparin Sod 5,000 Unit/0.5 Ml Vial) 5,000 units SQ Q12 JESSE Stop: 08/18/23 08:59 Last Admin: 07/21/23 09:43 Dose: Not Given Hydromorphone HCl (Hydromorphone Hcl 2 Mg Tab) 4 mg PO Q3H PRN PRN Reason: Mod-Sev Pain (Scale 4-10) Stop: 08/03/23 19:03 Last Admin: 07/21/23 03:05 Dose: 4 mg Hydromorphone HCl (Hydromorphone Inj 1 Mg/Ml Syringe) 1 mg IV Q2H PRN PRN Reason: Severe Pain (Scale 7, 8, 9,10) Stop: 07/27/23 17:45 Last Admin: 07/20/23 21:06 Dose: 1 mg Promethazine HCl 12.5 mg/ (Sodium Chloride) 50.5 mls @ 202 mls/hr IV Q6H PRN PRN Reason: Nausea And Vomiting Stop: 08/12/23 15:46 Last Infusion: 07/18/23 03:47 Dose: Infused Palonosetron 0.25 mg/ Syringe 5 mls @ 10 mls/min IV DAILY [facility] Stop: 08/12/23 16:29 Last Admin: 07/20/23 09:57 Dose: 10 mls/min Insulin Aspart (Insulin Aspart Per Unit Charge) 0 units SC ACHS [facility] Stop: 08/12/23 20:59 Last Admin: 07/21/23 09:49 Dose: 9 units Insulin Glargine (Lantus Per Unit Charge) 25 units SC DAILY [facility]; Protocol Stop: 08/16/23 08:59 Last Admin: 07/21/23 09:50 Dose: 25 units Lactobacillus Acidophilus (Advanced Probiotic 625 Mg Capsule) 1,250 mg PO DAILY [facility] Stop: 08/14/23 10:14 Last Admin: 07/21/23 09:59 Dose: Not Given Loperamide HCl (Loperamide Hcl 2 Mg Cap) 2 mg PO Q4H PRN PRN Reason: Loose Stool Stop: 08/15/23 15:25 Last Admin: 07/17/23 16:00 Dose: 2 mg Miscellaneous (Carbohydrates For Hypoglycemia ) 15 - 30 gm PO UD PRN PRN Reason: Hypoglycemia Treatment Stop: 08/12/23 15:14 Miscellaneous (Fentanyl Patch Remove & Waste) 1 each N/A Q3D [facility] Stop: 08/19/23 09:59 Last Admin: 07/20/23 11:00 Dose: Not Given Miscellaneous (Check Fentanyl Patch Placement) 1 each N/A QS [facility] Stop: 08/19/23 15:59 Last Admin: 07/21/23 09:44 Dose: 1 each Miscellaneous Information (Pharmacy Glycemic Mgmt Consult) 1 each N/A UD PRN PRN Reason: Consult Stop: 08/12/23 13:45 Nystatin (Nystatin Susp 500,000 U/5 Ml Udc) 5 ml PO QID [facility] Stop: 07/26/23 20:59 Last Admin: 07/21/23 09:42 Dose: 5 ml Olanzapine (Olanzapine 5 Mg Tablet) 5 mg PO BID [facility] Stop: 08/12/23 20:59 Last Admin: 07/21/23 09:43 Dose: 5 mg Ondansetron HCl (Ondansetron Inj 2 Mg/Ml 2 Ml Vial) 4 mg IV Q6H PRN PRN Reason: Nausea And Vomiting Stop: 08/17/23 03:57 Last Admin: 07/19/23 00:40 Dose: 4 mg Senna/Docusate Sodium (Docusate Sodium/Senna 50/8.6mg Tab) 1 tab PO DAILY [facility] Stop: 08/16/23 08:59 Last Admin: 07/21/23 09:59 Dose: Not Given
--- NOTE | 2023-07-21 14:34 | Palliative Care Progress Note ---
Date of Service July 21, 2023 Assessment & Plan (1) Cancer related pain: Plan: Continue TDF 25mcg q3days - there should be a check for whether or not prior auth is needed for this med before her dc to assure it is covered for her use Dilaudid 4mg PO q4h prn BTP - she will need this ordered I will see Yamilka 08/02/23 in [facility] Pall med clinic (2) Therapeutic opioid-induced constipation (OIC): Plan: bowel regimen in place - should continue at home with Senna S 1-2 tab BID and Miralax 1-2 scoops daily prn (3) Intractable nausea and vomiting: Plan: Worsened with oral oxycodone - oxycodone helped with pain but worsened her chemo/cancer related n/v and she could not tolerate PO Stop Aloxi Continue Zyprexa ODT 5mg BID (4) Depression: (5) Advanced care planning/counseling discussion: (6) Palliative care by specialist: (7) Breast cancer metastasized to bone: Plan For dc home she will need: * TDF 25mcg q3 days - please make sure this is checked for any prior auth needs and if so, this is done before she leaves * Dilaudid 4mg PO q4h prn/Hold for somnolence or RR less than 14; please document RR with each dose administration. * Senna S 1-2 tabs BID * Miralax 1-2 scoops daily prn RTC with me 08/02/23, we will schedule this in [facility] to match her chemo appt Thank you for allowing us to participate in the ongoing care of this patient. Please don't hesitate to call or page with any additional concerns. Dr. Luna Limon DNP Director, Palliative Care Admission and Anticipated Discharge Date Admission Date: July 13, 2023 Subjective Yamilka is feeling about 50% better today She ate all her lunch and so far, it is staying down and she has not had much nausea She feels pain is better, oral Dilaudid is helping and she was able to move around comfortably and also slept through most of the night / not awaking in pain She reports she is going home this afternoon Review of Systems Review of Systems: All systems reviewed & are unremarkable except as noted in Subjective Physical Exam Physical Exam: Chronically ill appearing, tired appearing, smiling, more direct eye contact/making jokes bitemp wasting, alopecia/chemo related; perrla, EOMIs Neck supple, no stridor, edentulous, MM dry Resp effort WAL, no use of accessory muscles S1S2 Abd soft, NTP, BS+ Anterior to lateral left ribs/chest and back +TTP +generalized weakness paraspinal tenderness AAOx3 cheerful today skin dry Results & Data Vital Signs (Past 12 Hours) Vital Signs Temp Pulse Pulse Resp BP Pulse Ox O2 Del Method 07/21/23 11:29 36.9 C 90 18 117/77 99 Room Air 07/21/23 07:43 89 07/21/23 07:11 36.8 C 92 H 18 120/75 96 Room Air 07/21/23 03:07 36.7 C 98 H 20 145/82 H 98 Room Air Laboratory Results Abnormal lab results 07/20/23 07/20/23 07/21/23 Range/Units 16:20 20:27 05:35 WBC 11.50 H (4.8-10.8) K/ul RBC 2.75 L (4.20-5.40) M/uL Hgb 7.8 L (12.0-16.0) g/dl Hct 23.9 L (37.0-47.0) % RDW Std Deviation 54.8 H (36.4-46.3) fL RDW Coeff of Joshua 18.0 H (11.5-14.5) % Absolute Nucleated RBC 0.21 H (0.00-0.12) K/uL Glucose 154 H (70-99(Fasting)) mg/dl POC Glucose 104 H 128 H (70-99) mg/dl Calcium 8.4 L (8.6-10.3) mg/dl Magnesium 1.6 L (1.7-2.4) mg/dl 07/21/23 07/21/23 Range/Units 07:14 11:28 WBC (4.8-10.8) K/ul RBC (4.20-5.40) M/uL Hgb (12.0-16.0) g/dl Hct (37.0-47.0) % RDW Std Deviation (36.4-46.3) fL RDW Coeff of Joshua (11.5-14.5) % Absolute Nucleated RBC (0.00-0.12) K/uL Glucose (70-99(Fasting)) mg/dl POC Glucose 176 H 146 H (70-99) mg/dl Calcium (8.6-10.3) mg/dl Magnesium (1.7-2.4) mg/dl PG Care Time/CCT Total # of Minutes Spent Total Time Spent with Patient: Total time spent is greater than 50% in coordination of care (as documented) at patient's floor/unit and/or counseling patient: I spent 60 minutes overall addressing this case: 10 min in medical data review/discussion with referring provider(s) and/or preparation for the visit 25 min in direct interaction with the patient/exam 000 min in Advance Care Planning/Goals of Care discussions as detailed above in note (must be >16min) 10 min in subsequent review and synthesis of assessment and plan 15 min communicating with other providers regarding the patient's case: [place] [address] SUB INP/OBS CARE 3/50MIN Patient Type Established Medical Decision Making High Complexity Diagnoses Cancer related pain G89.3 Therapeutic opioid-induced constipation (OIC) K59.03; T40.2X5A Intractable nausea and vomiting R11.2 Severe episode of recurrent major depressive disorder, without psychotic features F33.2 Active/Remission status: currently active Depression Type: major depressive disorder Major depression episode severity: severe Major depression recurrence: recurrent Psychotic features: without psychotic features Advanced care planning/counseling discussion Z71.89 Palliative care by specialist Z51.5 Carcinoma of breast metastatic to bone, unspecified laterality C50.919; C79.51 Laterality: unspecified laterality (4) Depression Active/Remission status: currently active Depression Type: major depressive disorder Major depression episode severity: severe Major depression recurrence: recurrent Psychotic features: without psychotic features Qualified Code(s): F33.2 - Major depressive disorder, recurrent severe without psychotic features (7) Breast cancer metastasized to bone Laterality: unspecified laterality Qualified Code(s): C50.919 - Malignant neoplasm of unspecified site of unspecified female breast; C79.51 - Secondary malignant neoplasm of bone
--- NOTE | 2023-07-22 08:53 | Discharge Summary ---
Date of Service July 22, 2023 Admission HPI Per Admitting Provider 48-year-old female with PMH metastatic breast cancer on chemotherapy, DM type II on insulin, and other problems listed below who presents to the ED for evaluation of nausea, vomiting, generalized pain. History is obtained from the patient and review of recent inpatient records. Patient recently admitted to [facility] 06/24 through 06/26 for intractable nausea and vomiting secondary to chemotherapy.Patient reports she had chemotherapy yesterday. She is currently receiving Eribulin under the care of Dr. Vazquez at the [facility]. Patient reports multiple episodes of vomiting and constant nausea. She reports generalized pain. States that she has not taken her insulin in 2 days. Denies fevers and chills. No abdominal pain. Denies hematemesis, coffee-ground emesis, bright red bleeding per rectum. No diarrhea. She denies chest pain, shortness of breath, palpitations. No lightheadedness, dizziness, diaphoresis, syncopal events. Denies urinary symptoms. In the ED, labs show WBC 1.4K, Hgb 9.0, ANC 590, Na+ 136, CO2 17, anion gap 17, glucose 314, calcium 7.2, Mg +1.4. Patient was given calcium and magnesium supplementation, she also received IVF, IV promethazine, IV Dilaudid. Admission Exam Per Admitting Provider Constitutional: + ill appearing; no acute distress Eyes: PERRL, conjunctivae normal, anicteric sclerae ENMT: external ear and nose normal, oropharynx normal Respiratory: normal respiratory effort, lungs clear to auscultation Cardiovascular: Rate/Rhythm: regular rate and regular rhythm Vessels: normal peripheral pulses Extremities: no edema Gastrointestinal (Abdomen): normal bowel sounds, soft, nontender, no hepatosplenomegaly Musculoskeletal: no cyanosis or clubbing, extremities motor strength 5/5 Skin: no rashes, warm and dry Neurologic: PERRL, EOMI, accommodation nl, no face palsy, no dysarthria Psychiatric: A+Ox3, euthymic affect Principal Diagnosis Metastatic breast cancer, DKA, nausea vomiting Discharge Exam Lying in bed without any apparent distress Constitutional well developed, well nourished and + obese; not ill appearing Eyes PERRL, conjunctivae normal, anicteric sclerae ENMT external ear and nose normal, oropharynx normal Neck trachea midline, no thyromegaly Respiratory no respiratory distress Auscultation: lungs clear to auscultation bilaterally and + crackles Cardiovascular Rate/Rhythm: regular rate and regular rhythm; not tachycardic Heart Sounds: normal S1 and normal S2; no murmur Extremities: + edema (Trace edema bilaterally) Gastrointestinal (Abdomen) Inspection/Auscultation: normal bowel sounds; abdomen not distended Percussion/Palpation: abdomen soft; abdomen nontender Neurologic normal touch/pain/proprioception and moves all extremities; no focal motor deficits Lymphatic no cervical or axillary lymphadenopathy Discharge Data Allergies Allergy/AdvReac Type Severity Reaction Status Date / Time No Known Allergies Allergy Verified 04/19/23 17:28 Consultations 07/13/23 13:02 ED Decision to Admit Stat 07/13/23 15:47 Consult Palliative Care Routine 07/14/23 14:10 Consult Oncology Routine 07/16/23 08:33 Consult Infectious Diseases Routine Hospital Course (1) Neutropenia: (2) DKA (diabetic ketoacidosis): Plan 48-year-old female with PMH of metastatic breast cancer on chemotherapy, T2DM on insulin, hypothyroidism, hypercalcemia, depression with anxiety, peripheral neuropathy, SBO presented to the ED 07/12 with complaint of nausea, vomiting, generalized pain. Patient stated that she felt too weak to keep up with insulin use for few days prior to arrival. She is being managed for the following: Diabetic ketoacidosis: Uncontrolled T2DM: Intractable nausea and vomiting: Present at admission, likely multifactorial due to underlying malignancy/need for chemotherapy/DKA at presentation. Has been getting intravenous fluid and symptomatic management A1c 9.3 in May 2023. Patient on insulin at home. Glycemic pharmacy managing, wellness educator consult.-Appreciate pharmacy input and recommendation Blood sugar remains stable on current regimen Likely be discharged this afternoon Breast cancer metastasized to bone: Cancer related pain: Continue home oxycodone 20 mg for moderate pain, c/w IV Dilaudid for severe pain Patient was to start scheduled morphine 30 mg every 8 hours however she reports that she is awaiting insurance approval Palliative consult, appreciate recs. TDF trial per palliative recs. Monitor for gi issues. Follows with Dr. Vazquez at [facility] Currently receiving Eribulin, last infusion 07/11 The pain remains reasonably controlled and she has been ambulating without any difficulties She will be discharged home this afternoon with current doses of narcotics and appropriate follow-up Neutropenic fever: first noticed 07/14-07/15 night. Neutropenia and anemia Complicated by parainfluenza 3 URTI At presentation: WBC of 1.4 and hemoglobin of 9.0. Neutrophils 0.59K Afebrile, denies blood in sputum or stool. Patient under chemotherapy as OP, likely could be cause for bicytopenia. Neutropenic precaution, had fever 07/14-07/15 night, started on dapto and cefepime 07/15 --> around this time no Pain/burn w/ urine and Occ cough w/ scant clear sputum. 07/15 UA neg for UTI, 07/15 Bl and U Cx are pending. 07/15 RPP +ve for Parainfl 3; 07/16 stool PCR neg incl c diff. D/w ID 07/18, DC'd cefepime and vanco. WBC improving, patient has been afebrile. Monitor clinically. Improvement in loose stool associated likely with viral URTI. c/w probiotic, imodium and psyllium fiber. Remains medically stable as of 07/21/2023 CBC remains stable with hemoglobin of 7.8 Hypocalcemia and hypomagnesemia: Monitor and replete. Electrolytes are unremarkable DVT PROPHYLAXIS: SQ Hep, monitor HnH closely. Total Time Total Time Spent Total Time Spent (In Minutes): 40 minutes Discharge Plan Discharge Items Patient Disposition: Home - Self-Care Reason For Visit: H/V, DKA, HX METASTATIC BREAST VA Discharge Diagnosis: Metastatic breast cancer, DKA, nausea vomiting Condition on Discharge: Fair Activity: Resume your previous activity Non-emergency contact: Primary Care Provider Call non-emergency contact if: you have any medication questions and your symptoms worsen Follow-up/Referrals: Adonis Lawler CRNP [Primary Care Provider] - 07/28/23 2:00 pm Diet: Carb Count or DM1 Addtl Attending Provider Instructions: Please take precautions to avoid falls Take your medications as advised Take your insulin as advised and avoid hypoglycemia Please keep appointments with healthcare providers Fentanyl patch and Dilaudid will be managed by the palliative care. Pending Studies at Discharge: No Stand-Alone Forms: My A-TEX, Smoking Cessation Medications and DC Order Prescriptions: New nystatin 100,000 unit/mL Suspension 5 ml PO QID Qty: 120 0RF Continued olanzapine [Zyprexa] 5 mg tablet 5 mg PO BID Qty: 60 2RF hydromorphone [Dilaudid] 4 mg tablet 4 mg PO Q4H PRN (Reason: severe breakthrough cancer pain) 30 Days Qty: 180 0RF ondansetron 8 mg tablet,disintegrating 8 mg translingual BID PRN (Reason: Nausea And Vomiting) insulin aspart U-100 [Novolog FlexPen U-100 Insulin] 100 unit/mL (3 mL) insulin pen 10 sliding scale dose SUBCUT AC Rx Instructions: fill history: 10 units subcut TID before meals Changed insulin glargine [Lantus Solostar U-100 Insulin] 100 unit/mL (3 mL) insulin pen 25 unit SUBCUT BID Qty: 0 0RF Discharge Orders: Discharge Order (Routine); Ordered 07/21/23 Ordered By: Kiki Vivas Admission Data Admit Date/Time: 07/13/23 15:42 Attending Provider: Kiki Vivas Admit Provider: Ambreen Magallanes Primary Care Provider: Adonis Lawler Other Providers: Ambreen Magallanes; Luna Limon; Lynn Vazquez Carlos M.; Gm Faria; Davis Cardenas I.; Audie Davis II; Lilian Page; Brigido Strong; Missael Gerard; Gordon Vance; Jose E Gamez; Maurisio Pettit Other Interventions: Discharge Summary Assessment (RN) Last Done: 07/21/23 15:22
== END 2023-07-21 16:10 | disposition home or self-care (01) | DRG 638 ==
LOC: ED 10:02 → 2S 15:42 → SUATTDRO 15:42 → 2S 18:03

== ENCOUNTER 2023-08-02 16:59 | Inpatient (IN) ==
--- NOTE | 2023-08-02 17:06 | ED Triage Note ---
Date of Service August 02, 2023 Provider in Triage Author: Sandra Colorado History of Present Illness This patient was briefly evaluated while in triage. An abbreviated physical exam was performed. This patient is a 48-year-old Female who presents to the ED for evaluation of weakness, dizziness, and trouble standing and walking. Her BSG at the cancer clinic was 444. She gave herself 30 units lantus and 10 units of Novolog. She also had 8 mg of Zofran IV and 1 L NSS at the cancer clinic. Her port is already accessed. She has a history of metastatic breast cancer and has signficant chronic pain all of the time and is on chronic pain meds. Physical Exam GENERAL: Chronically ill in appearance. HEENT: Pupils equal. No obvious scleral icterus. NEURO: Alert and oriented. Initial orders for labs and / or imaging were placed and patient was taken back to a room. Please see further documentation for the full ED course.
[2023-08-02 17:31] LABS: Base Excess VBG -1.6 mEq/L; HCO3 VBG 22 mmol/L; Oxygen Saturation VBG < 60.0 %; PCO2 VBG 32 mmHg (38-50); PO2 VBG 31 mmHg; pH VBG 7.44 (7.36-7.41)
[2023-08-02 17:38] LABS: Hematocrit (blood only) 23.3 % (37.0-47.0); Hemoglobin 8.1 g/dl (12.0-16.0); Mean Corpuscular Hemoglobin 28.6 pg (25.0-34.0); Mean Corpuscular Hgb Conc 34.8 g/dL (32.0-36.0); Mean Corpuscular Volume 82.3 fL (80.0-100.0); Mean Platelet Volume 9.4 fL (9.4-12.4); Platelet Count 174 K/uL (130-400); RDW Coefficient of Variation 17.6 % (11.5-14.5); RDW Standard Deviation 52.1 fL (36.4-46.3); Red Blood Count 2.83 M/uL (4.20-5.40); White Blood Count 2.84 K/ul (4.8-10.8)
[2023-08-02] MEDS: HYDROmorphone INJ 1 MG/ML SYRINGE IV STA (17:47)
[2023-08-02] MEDS: SODIUM CHLORIDE 0.9% 1,000 ML IV SCH ×2 (17:47→19:03)
[2023-08-02] MEDS: CEFEPIME 2,000 MG/20 ML VIAL IV STA (17:47)
[2023-08-02 17:53] LABS: Alanine Aminotransferase 16 U/L (7-52); Albumin Globulin Ratio 1.3 (0.9-2); Albumin Level 3.9 gm/dl (3.4-5.0); Alkaline Phosphatase 155 U/L (34-104); Anion Gap 11 (3-11); Aspartate Aminotransferase 19 U/L (13-39); BUN Creatinine Ratio 27.2 (10-20); Bilirubin,Total 0.9 mg/dl (0.2-1.0); Blood Urea Nitrogen 25 mg/dl (6-23); Calcium 8.9 mg/dl (8.6-10.3); Carbon Dioxide 21 mmol/L (21-32); Chloride 102 mmol/L (98-107); Est GFR (African American) 86.5 ml/min; Est GFR (Non-African American) 74.7 ml/min; Globulin 3.1 gm/dl (2.5-4.0); Glucose 208 mg/dl (70-99(Fasting)); Lipase 11 U/L (11-82); Magnesium 1.8 mg/dl (1.7-2.4); Potassium 3.9 mmol/L (3.5-5.1); Sodium 134 mmol/L (136-145)
[2023-08-02 17:55] LABS: Basophils # (auto) 0.09 K/uL (0.00-0.20); Basophils % (auto) 3.2 %; Immature Granulocytes # (auto) 0.16 K/uL (0.01-0.20); Immature Granulocytes % (auto) 5.6 %; Lymphocytes # (auto) 1.01 K/uL (1.20-3.40); Lymphocytes % (auto) 35.6 %; Monocytes # (auto) 0.13 K/uL (0.11-0.59); Monocytes % (auto) 4.6 %; Neutrophils # (auto) 1.45 K/uL (1.40-6.50); RBC Morphology Unremarkable
[2023-08-02] MEDS ORDERED: HYDROmorphone INJ 1 MG/ML SYRINGE IV PRN (17:57)
[2023-08-02 18:01] LABS: INR 1.1 (0.9-1.1); Partial Thromboplastin Ratio 0.9; Partial Thromboplastin Time 25 Seconds (21-31); Prothrombin Time 11.5 Seconds (9.0-12.0)
[2023-08-02 18:02] LABS: Troponin I High Sensitivity 4.9 pg/ml (0-14)
[2023-08-02 18:10] LABS: Thyroid Stimulating Hormone 6.973 uIu/ml (0.300-4.500)
[2023-08-02 18:34] LABS: Adenovirus PCR Not Detected (NotDetected); Bordetella parapertussis PCR Not Detected (NotDetected); Bordetella pertussis PCR Not Detected (NotDetected); Chlamydia pneumoniae PCR Not Detected (NotDetected); Coronavirus 229E PCR Not Detected (NotDetected); Coronavirus CoV-2 (COVID19)PCR Not Detected (NotDetected); Coronavirus HKU1 PCR Not Detected (NotDetected); Coronavirus NL63 PCR Not Detected (NotDetected); Coronavirus OC43PCR Not Detected (NotDetected); Human Metapneumovirus PCR Not Detected (NotDetected); Influenza A PCR Not Detected (NotDetected); Influenza B PCR Not Detected (NotDetected); Mycoplasma pneumoniae PCR Not Detected (NotDetected); Parainfluenza Virus 1 PCR Not Detected (NotDetected); Parainfluenza Virus 2 PCR Not Detected (NotDetected); Parainfluenza Virus 3 PCR DETECTED (NotDetected); Parainfluenza Virus 4 PCR Not Detected (NotDetected); Respiratory Syncytial VirusPCR Not Detected (NotDetected); Rhinovirus/Enterovirus PCR Not Detected (NotDetected)
[2023-08-02 18:45] LABS: T4 Free Thyroxine 0.76 ng/dl (0.61-1.60)
--- NOTE | 2023-08-02 18:50 | XRay Report ---
XR chest 1V portable CLINICAL HISTORY: Chest pain, nonspecific TECHNIQUE: Single frontal radiograph of the chest was obtained. Comparison: Comparison is made to chest radiograph 07/13/[address] abdomen pelvis 07/13/2023 FINDINGS: A port catheter is seen. Peripheral density in the right midlung is again seen. The lungs are clear. No evidence of pleural effusion or pneumothorax. IMPRESSION: Peripheral right airspace opacities are stable from prior exam. Otherwise no acute abnormalities. ACT 112: Negative or not required by law. Electronically signed by: Mariano Guerrier M.D. 08/02/2023 6:47 PM
--- NOTE | 2023-08-02 19:56 | History & Physical Report ---
Date of Service August 02, 2023 Assessment & Plan (1) Weakness generalized: (2) Parainfluenza: (3) Breast cancer metastasized to bone: Plan: Admit to [facility] Patient presenting by referral of palliative care for evaluation of generalized weakness. Patient with history of metastatic breast cancer, currently on chemotherapy, last treatment on 07/26/2023. Today's treatment canceled due to low hemoglobin. According to outpatient palliative care note, patient has had difficulty obtaining a walker, has been generally weak, and has very little family support at this time. Biofire + parainfluenza CXR shows Peripheral right airspace opacities, stable from prior exam S/p cefepime in the ED, will continue with for now given patient's immunocompromise state. Check MRSA nasal swab. Follow blood cultures. PRN nebs PT/OT (4) Anemia: Plan: Hgb 8.1, which is near patient's recent baseline, will consult oncology and defer transfusion (5) Type II diabetes mellitus: Plan: hgb a1c 9.3 05/2023 Lantus and Novolog SSI DVT PROPHYLAXIS SQ Lovenox Patient seen in collaboration with Dr. Norton. I spent a total of 75 minutes coordinating, documenting, and providing care for this patient excluding time spent in the performance of separately billed services. This included personally reviewing all current laboratories and imaging studies, medication reconciliation, outpatient chart review, and discussion with specialists. History of Present Illness Chief Complaint: Weakness Primary Care Provider: CONSTANTINO Reid 48-year-old female with PMH metastatic breast cancer on chemotherapy, DM type II on insulin, and other problems listed below who presented to the ED for evaluation of generalized weakness. Patient reports her last chemotherapy was 1 week ago. She was seen in the oncology office today and due to low hemoglobin, she reports that her chemotherapy was held. Reports that she is to have a blood transfusion tomorrow. Patient was also evaluated by palliative care as an outpatient. She has been having generalized weakness, unable to obtain a walker, and limited family support at home. She was therefore referred to the ED for admission. Patient reports she hasn't been feeling too bad lately. Reports her pain and nausea is fairly well controlled. She had been able to tolerate food. Reports feeling cold most of the time however that is not unusual for her. No fever. Denies chest pain and shortness of breath. No cough or sputum production. Denies urinary symptoms. In the ED, labs show Hgb 8.1. Patient is hemodynamically stable. CXR shows peripheral right airspace opacity that are unchanged from prior exam. Patient was given IV cefepime, IV Dilaudid, IVF. Allergies Allergy/AdvReac Type Severity Reaction Status Date / Time No Known Allergies Allergy Verified 08/02/23 18:13 Home Medications Medication Instructions Recorded Confirmed Type insulin aspart U-100 100 unit/mL 10 sliding scale dose subcut AC 06/25/23 08/02/23 History (3 mL) subcutaneous pen (Novolog FlexPen U-100 Insulin aspart) ondansetron 8 mg disintegrating 8 mg translingual BID PRN Nausea 06/25/23 08/02/23 History tablet And Vomiting olanzapine 5 mg tablet (Zyprexa) 5 mg PO BID #60 tabs 07/12/23 08/02/23 Rx insulin glargine 100 unit/mL (3 25 unit (0.25 mL) subcut BID #0 mL 07/21/23 08/02/23 Rx mL) subcutaneous pen (Lantus Solostar U-100 Insulin) hydromorphone 4 mg tablet 4 mg PO Q4H PRN severe 07/22/23 08/02/23 Rx (Dilaudid) breakthrough cancer pain 1 month #180 tabs fentanyl 25 mcg/hr transdermal 25 mcg topical [id number] 08/02/23 08/02/23 History patch oxycodone 20 mg tablet 20 mg PO Q4 PRN severe cancer pain 08/02/23 08/02/23 History Past Med/Surg History Problem List (Updated 08/02/23 @ 23:42 by Ashley Rosen MD) Breast cancer metastasized to multiple sites (Acute) Anemia Parainfluenza Weakness generalized (Chronic) Depression Breast cancer metastasized to bone (Chronic) Cancer related pain (Chronic) Arthritis Obesity Hypothyroidism Type II diabetes mellitus (Acute) Medical History (Updated 08/02/23 @ 23:42 by Ashley Rosen MD) DM type 2 (diabetes mellitus, type 2) Breast cancer metastasized to bone History of COVID-19 12/2020 + 12/2021 > residual taste dysfunction and feeling of need to clear throat Bilateral breast cancer Arthritis Liver spots "Mets from cancer" Depression with anxiety Peripheral neuropathy Heart palpitations R/t anxiety per patient History of small bowel obstruction Hx bowel obstruction Hypothyroidism No current meds Surgical History History of tubal ligation Port-A-Cath in place (04/30/22) Insertion Access Port left subclavian with Fluoroscopy(Left) - Chad Banuelos DO History of surgery Left Excisional Debridement of Buttock Wound Nausea and vomiting after administration of anesthetic agent "EXTREME" History of vascular access device PORT INSERTION/REMOVAL History of tooth extraction History of endometrial ablation History of bowel resection D/T BOWEL OBSTRUCTION History of lung surgery Left thoracoscopy with wedge resection left lower lobe Dr. Damico 03/29/2018 History of dilatation and curettage H/O hernia repair Hx of section x3 S/P lumpectomy, left breast LEFT ARM LIMB RESTRICTION Family History Mother , 77yo Diabetes Heart disease Aortic valve replacement Mitral valve calcifications UTI (urinary tract infection) Father , 62yo Diabetes Myocardial infarction Hypertension Stroke Brother Diabetes Myocardial infarction Cardiac stents Pacemaker Hypertension Sister No problems noted. Daughter No problems noted. Son No problems noted. Son No problems noted. Other No family history of adverse response to anesthesia Social History Smoking Status: Never smoker Second Hand Exposure: No; Do You Dip or Chew Tobacco: No; Tobacco Cessation Education Requested by Patient: No Hx Alcohol Use: No Hx Substance Use: Yes Last Used Substance: Unknown Last Used Substance Other:: Only uses medical marijuana vaping for pain. Substance Use Type Other:: Medical marijuana. 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 Norton's addendum for physical exam Results & Data Results & Data Vital Signs (Past 12 Hours) Vital Signs Temp Pulse Pulse Resp BP BP Pulse Ox 08/02/23 19:00 96 H 17 119/87 96 08/02/23 18:06 85 20 120/74 100 08/02/23 17:43 88 08/02/23 17:20 100 H 14 100 08/02/23 17:00 36.8 C 100 H 14 124/79 100 O2 Del Method 08/02/23 19:00 08/02/23 18:06 08/02/23 17:43 08/02/23 17:20 Room Air 08/02/23 17:00 Room Air Laboratory Results Short CBC 08/02/23 Range/Units 17:18 WBC 2.84 L (4.8-10.8) K/ul Hgb 8.1 L (12.0-16.0) g/dl Hct 23.3 L (37.0-47.0) % Plt Count 174 (130-400) K/uL BMP 08/02/23 17:18 Sodium 134 L Potassium 3.9 Chloride 102 Carbon Dioxide 21 BUN 25 H Creatinine 0.92 Glucose 208 H Calcium 8.9 Liver Function 08/02/23 Range/Units 17:18 Total Bilirubin 0.9 (0.2-1.0) mg/dl AST 19 (13-39) U/L ALT 16 (7-52) U/L Alkaline Phosphatase 155 H (34-104) U/L Albumin 3.9 (3.4-5.0) gm/dl Diagnostic Findings Chest X-Ray 08/02/23 17:06 XR chest 1V portable CLINICAL HISTORY: Chest pain, nonspecific TECHNIQUE: Single frontal radiograph of the chest was obtained. Comparison: Comparison is made to chest radiograph 07/13/[address] abdomen pelvis 07/13/2023 FINDINGS: A port catheter is seen. Peripheral density in the right midlung is again seen. The lungs are clear. No evidence of pleural effusion or pneumothorax. IMPRESSION: Peripheral right airspace opacities are stable from prior exam. Otherwise no acute abnormalities. ACT 112: Negative or not required by law. Electronically signed by: Mariano Guerrier M.D. 08/02/2023 6:47 PM Code Status & VTE Plan VTE Prophylaxis Plan VTE Prophylaxis will be ordered: Yes Supervising Physician Co-Signing Physician Notes Attending Addendum: Case reviewed with the advanced practitioner. I have personally performed a history and physical examination on the patient. I have reviewed the advanced practitioner's documentation on the date of service referenced in note, and I agree with, and take responsibility for the plan of care. please refer to her notes for full details patient seen and examined, records reviewed by myself as well on exam, patient seen resting in bed, comfortable but weak (+) cough no other symptoms VS noted and reviewed oriented x 3, not in distress, speaks in sentences with no effort nor accessory muscle use normal rate, regular rhythm, no murmurs (+) mild rhonchi non distended, soft, nontender no bipedal edema, erythema, warmth no neuro deficits all labs, imaging noted and reviewed ASSESSMENT AND PLAN PARAINFLUENZA INFECTION POSSIBLE PNEUMONIA IV Cefepime IV fluids other diagnoses and plan of care as per advanced practitioner's notes Salvador Norton MD (3) Breast cancer metastasized to bone Laterality: unspecified laterality Qualified Code(s): C50.919 - Malignant neoplasm of unspecified site of unspecified female breast; C79.51 - Secondary malignant neoplasm of bone
[2023-08-02] MEDS ORDERED: ACETAMINOPHEN 325 MG TAB PO PRN (21:25)
[2023-08-02] MEDS ORDERED: GLUCOSE 40% GEL 15 GM TUBE PO PRN (21:25)
[2023-08-02] MEDS ORDERED: GLUCOSE 10 TAB/TUBE PO PRN (21:25)
[2023-08-02] MEDS ORDERED: ALBUT/IPRATROP 3MG/0.5MG NEB 3 ML VIAL NEB PRN (21:25)
[2023-08-02] MEDS ORDERED: GLUCAGON FOR INJ 1 MG VIAL SQ PRN (21:25)
[2023-08-02] MEDS ORDERED: CARBOHYDRATES FOR HYPOGLYCEMIA PO PRN (21:25)
[2023-08-02] MEDS ORDERED: DEXTROSE 50% 50 ML SYRINGE IV PRN (21:25)
[2023-08-02] MEDS: LANTUS PER UNIT CHARGE SQ SCH (22:22)
[2023-08-02] MEDS: INSULIN ASPART PER UNIT CHARGE SC SCH (22:22)
[2023-08-02] MEDS: HYDROmorphone INJ 0.5 MG/0.5 ML SYR IV PRN (22:29)
[2023-08-02] MEDS: ENOXAPARIN INJ 40 MG/0.4 ML SYR SQ SCH (22:32)
[2023-08-02] MEDS: OLANZapine 5 MG TABLET PO SCH (23:02)
[2023-08-02] MEDS: CHECK fentaNYL PATCH PLACEMENT SCH (23:02)
--- NOTE | 2023-08-02 23:29 | Emergency Department Note ---
Impression & Plan Weakness generalized, Type II diabetes mellitus, Breast cancer metastasized to multiple sites ED Provider Note CHIEF COMPLAINT: Weakness HISTORY OF PRESENT ILLNESS: This 48-year-old female patient with past medical history of metastatic breast cancer presents emergency department with complaints of weakness. She states she is having difficulty walking because she cannot keep strength in her legs. Patient states she has fallen several times. She is on Dilaudid to help control her cancer pain, but she has not had her pain medication she has been at the hospital for the last 6 hours or so. She was evaluated by palliative care prior to this ER visit. Logistically there are many issues including family dynamics that have limited support for her currently. The patient was sent in for evaluation of hyperglycemia, weakness and for case management/palliative care to help arrange more and home care in hopes of a safe disposition plan. REVIEW OF SYSTEMS: A review of systems was performed with positives and pertinent negatives listed in the history of present illness. 10 systems were reviewed and are otherwise negative. ALLERGIES: see below MEDICATIONS: see below PMH: see below SOCIAL HISTORY: see below DDx: Pneumonia, viral illness, UTI, deconditioning, electrolyte abnormality, renal failure, stroke, among others. PHYSICAL EXAM: Vital signs reviewed. General: Chronically ill-appearing 48-year-old female, in no distress HEENT: No scleral icterus, PERRLA, neck supple. Atraumatic. alopecia. Cardiovascular: Regular rate and rhythm, no extra sounds. Pulmonary: Clear to auscultation bilaterally, normal work of breathing. Abdomen: Soft, nontender, nondistended, positive bowel sounds. Musculoskeletal: Atraumatic, no peripheral edema. Neurologic: Patient awake alert and oriented x 3, speech is clear Skin: Warm, dry, no rash EMERGENCY DEPARTMENT COURSE/MDM: this patient was evaluated and appeared to be in no significant distress. IV access was obtained through the patient's indwelling port. patient was hydrated with normal saline solution, given IV Dilaudid and Zofran for her discomfort. Chest x-ray was performed and reveals stable opacities in the right midlung field. Patient's laboratory work reveals a WBC of 2.4, hemoglobin of 8.1. Lactate is elevated at 2.8 which I feel is likely metabolic secondary to glucose of 444 Earlier today. patient states she did take Lantus and regular insulin prior to arrival. Patient has tested positive for parainfluenza virus. I do suspect the patient's weakness is multifactorial. She is currently getting chemotherapy. Patient's case was discussed with the hospitalist service who will evaluate the patient for admission and further management until safe disposition and and home services can be established. Patient is expressed understanding the plan and agrees. MONITORING: An order for cardiac monitoring was placed and the patient is noted to be in a normal sinus rhythm 87 beats per minute. RADIOLOGY: Chest x-ray to my interpretation and radiology is over read reveal evidence of peripheral opacities in the right midlung field. Please see final read below. EKG: To my interpretation reveals normal sinus rhythm 89 bpm. QTc of 469. No PVC, no PAC. No significant change from previous dated July 07, 2023. DISPOSITION: Admission Past Med/Surg History Problem List (Updated 08/02/23 @ 23:42 by Ashley Rosen MD) Breast cancer metastasized to multiple sites (Acute) Anemia Parainfluenza Weakness generalized (Chronic) Depression Breast cancer metastasized to bone (Chronic) Cancer related pain (Chronic) Arthritis Obesity Hypothyroidism Type II diabetes mellitus (Acute) Medical History (Updated 08/02/23 @ 23:42 by Ashley Rosen MD) DM type 2 (diabetes mellitus, type 2) Breast cancer metastasized to bone History of COVID-19 12/2020 + 12/2021 > residual taste dysfunction and feeling of need to clear throat Bilateral breast cancer Arthritis Liver spots "Mets from cancer" Depression with anxiety Peripheral neuropathy Heart palpitations R/t anxiety per patient History of small bowel obstruction Hx bowel obstruction Hypothyroidism No current meds Surgical History History of tubal ligation Port-A-Cath in place (04/30/22) Insertion Access Port left subclavian with Fluoroscopy(Left) - Chad Banuelos, History of surgery Left Excisional Debridement of Buttock Wound Nausea and vomiting after administration of anesthetic agent "EXTREME" History of vascular access device PORT INSERTION/REMOVAL History of tooth extraction History of endometrial ablation History of bowel resection D/T BOWEL OBSTRUCTION History of lung surgery Left thoracoscopy with wedge resection left lower lobe Dr. Damico 03/29/2018 History of dilatation and curettage H/O hernia repair Hx of section x3 S/P lumpectomy, left breast LEFT ARM LIMB RESTRICTION Family History Mother , 77yo Diabetes Heart disease Aortic valve replacement Mitral valve calcifications UTI (urinary tract infection) Father , 62yo Diabetes Myocardial infarction Hypertension Stroke Brother Diabetes Myocardial infarction Cardiac stents Pacemaker Hypertension Sister No problems noted. Daughter No problems noted. Son No problems noted. Son No problems noted. Other No family history of adverse response to anesthesia Social History Smoking Status: Never smoker Second Hand Exposure: No; Do You Dip or Chew Tobacco: No; Hx Alcohol Use: No Hx Substance Use: Yes Last Used Substance: Unknown Last Used Substance Other:: ONLY USES MEDICAL MARIJUANA (VAPING) FOR PAIN Substance Use Type Other:: medical Preferred Language: Armenian Communication Ability: Effective Visual Impairment: No Limitations Hearing Ability: Normal Elementary School Band Director Required: No Beliefs That Will Affect Care: Bahai marital status: Single Current Living Situation: Family Current Living Situation Comment: lives at home with 3 children 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 How many Children do You have: 3 Feels Safe at Home: Yes Diet: regular caffeine: No during the past year weight has: remained stable Assistive Devices: None Allergies Allergies Allergy/AdvReac Type Severity Reaction Status Date / Time No Known Allergies Allergy Verified 08/02/23 18:13 Home Meds Home Medications Medication Instructions Recorded Confirmed insulin aspart U-100 100 unit/mL 10 sliding scale dose subcut AC 06/25/23 08/02/23 (3 mL) subcutaneous pen (Novolog FlexPen U-100 Insulin aspart) ondansetron 8 mg disintegrating 8 mg translingual BID PRN Nausea 06/25/23 08/02/23 tablet And Vomiting fentanyl 25 mcg/hr transdermal 25 mcg topical [id number] 08/02/23 08/02/23 patch oxycodone 20 mg tablet 20 mg PO Q4 PRN severe cancer pain 08/02/23 08/02/23 Previous Rx's Medication Instructions Recorded olanzapine 5 mg tablet (Zyprexa) 5 mg PO BID #60 tabs 07/12/23 insulin glargine 100 unit/mL (3 25 unit (0.25 mL) subcut BID #0 mL 07/21/23 mL) subcutaneous pen (Lantus Solostar U-100 Insulin) hydromorphone 4 mg tablet 4 mg PO Q4H PRN severe 07/22/23 (Dilaudid) breakthrough cancer pain 1 month #180 tabs Results & Data (ED) Vital Signs Vital Signs - 24 hr 08/02/23 17:00 08/02/23 17:20 08/02/23 17:43 Temperature 36.8 C Temperature Source Temporal Artery Scan Pulse Rate 100 H 100 H 88 Pulse Rate from SpO2 Sensor Pulse Rhythm Regular Respiratory Rate 14 14 Respiratory Depth Normal Blood Pressure 124/79 Blood Pressure Mean 94 Pulse Oximetry 100 100 Oxygen Delivery Method Room Air Room Air Sepsis Recent Fever Within 48 Hours No Sepsis New/Unexplained Change in Mental Status N/A Sepsis Action Taken by Nursing No Action Required 08/02/23 18:06 Temperature Temperature Source Pulse Rate 85 Pulse Rate from SpO2 Sensor 85 Pulse Rhythm Respiratory Rate 20 Respiratory Depth Blood Pressure 120/74 Blood Pressure Mean 89 Pulse Oximetry 100 Oxygen Delivery Method Sepsis Recent Fever Within 48 Hours Sepsis New/Unexplained Change in Mental Status Sepsis Action Taken by [facility] Medications Current Medication List: was personally reviewed by me Laboratory Data Attestation: I reviewed the patient's lab results. 08/02/23 17:18 08/02/23 17:18 Lab Results 08/02/23 08/02/23 08/02/23 Range/Units 17:18 17:27 17:29 WBC 2.84 L (4.8-10.8) K/ul RBC 2.83 L (4.20-5.40) M/uL Hgb 8.1 L (12.0-16.0) g/dl Hct 23.3 L (37.0-47.0) % MCV 82.3 (80.0-100.0) fL MCH 28.6 (25.0-34.0) pg MCHC 34.8 (32.0-36.0) g/dL RDW Std Deviation 52.1 H (36.4-46.3) fL RDW Coeff of Joshua 17.6 H (11.5-14.5) % Plt Count 174 (130-400) K/uL MPV 9.4 (9.4-12.4) fL Immature Gran % (Auto) 5.6 % Neut % (Auto) 51.0 % Lymph % (Auto) 35.6 % [place] % (Auto) 4.6 % Eos % (Auto) 0.0 % Baso % (Auto) 3.2 % Neut # (Auto) 1.45 (1.40-6.50) K/uL Lymph # (Auto) 1.01 L (1.20-3.40) K/uL [place] # (Auto) 0.13 (0.11-0.59) K/uL Eos # (Auto) 0.00 (0.00-0.50) K/uL Baso # (Auto) 0.09 (0.00-0.20) K/uL Immature Gran # (Auto) 0.16 (0.01-0.20) K/uL RBC Morphology Unremarkable PT 11.5 (9.0-12.0) Seconds INR 1.1 (0.9-1.1) APTT 25 (21-31) Seconds PTT Ratio 0.9 VBG pH 7.44 H (7.36-7.41) VBG pCO2 32 L (38-50) mmHg VBG pO2 31 mmHg VBG HCO3 22 mmol/L VBG O2 Saturation < 60.0 % VBG Base Excess -1.6 mEq/L Sodium 134 L (136-145) mmol/L Potassium 3.9 (3.5-5.1) mmol/L Chloride 102 (98-107) mmol/L Carbon Dioxide 21 (21-32) mmol/L Anion Gap 11 (3-11) BUN 25 H (6-23) mg/dl Creatinine 0.92 (0.6-1.2) mg/dl Est Cr Clr Drug Dosing Not Reportable Est GFR ( Amer) 86.5 ml/min Est GFR (Non-Af Amer) 74.7 ml/min BUN/Creatinine Ratio 27.2 H (10-20) Glucose 208 H (70-99(Fasting)) mg/dl POC Glucose 230 H (70-99) mg/dl Lactate 2.8 H* (0.4-2.0) mmol/L Calcium 8.9 (8.6-10.3) mg/dl Magnesium 1.8 (1.7-2.4) mg/dl Total Bilirubin 0.9 (0.2-1.0) mg/dl AST 19 (13-39) U/L ALT 16 (7-52) U/L Alkaline Phosphatase 155 H (34-104) U/L Troponin I High Sens 4.9 (0-14) pg/ml Total Protein 7.0 (6.0-8.3) gm/dl Albumin 3.9 (3.4-5.0) gm/dl Globulin 3.1 (2.5-4.0) gm/dl Albumin/Globulin Ratio 1.3 (0.9-2) Lipase 11 (11-82) U/L Procalcitonin 0.21 (0-0.5) ng/ml TSH 6.973 H (0.300-4.500) uIu/ml Free T4 0.76 (0.61-1.60) ng/dl Adenovirus (PCR) Not Detected (NotDetected) B. pertussis DNA (PCR) Not Detected (NotDetected) B.parapertussis DNA PCR Not Detected (NotDetected) C. pneumoniae DNA (PCR) Not Detected (NotDetected) Coronavirus OC43 (PCR) Not Detected (NotDetected) Coronavirus HKU1 (PCR) Not Detected (NotDetected) Coronavirus 229E (PCR) Not Detected (NotDetected) SARS-CoV-2 (PCR) Not Detected (NotDetected) Coronavirus NL63 (PCR) Not Detected (NotDetected) Human Metapneumovir PCR Not Detected (NotDetected) Influenza Type A (PCR) Not Detected (NotDetected) Influenza Type B (PCR) Not Detected (NotDetected) M. pneumoniae (PCR) Not Detected (NotDetected) Parainfluenza 1 (PCR) Not Detected (NotDetected) Parainfluenza 2 (PCR) Not Detected (NotDetected) Parainfluenza 3 (PCR) DETECTED A (NotDetected) Parainfluenza 4 (PCR) Not Detected (NotDetected) RSV (PCR) Not Detected (NotDetected) Entero/Rhino (PCR) Not Detected (NotDetected) Administered Medications Enoxaparin Sodium (Enoxaparin Inj 40 Mg/0.4 Ml Syr) 40 mg SQ HS JESSE Stop: 09/01/23 21:59 Last Admin: 08/02/23 22:32 Dose: Not Given Documented By: RES Hydromorphone HCl (Hydromorphone Inj 0.5 Mg/0.5 Ml Syr) 0.5 mg IV Q4H PRN PRN Reason: severe pain Stop: 08/16/23 21:24 Last Admin: 08/02/23 22:29 Dose: 0.5 mg Documented By: MARISELA Insulin Aspart (Insulin Aspart Per Unit Charge) 0 units SC ACHS JESSE Stop: 09/01/23 21:24 Last Admin: 08/02/23 22:22 Dose: 5 units Documented By: MARISELA Co-signed By: ANATOLIY Insulin Glargine (Lantus Per Unit Charge) 25 units SQ BID [facility] Stop: 09/01/23 21:24 Last Admin: 08/02/23 22:22 Dose: 25 units Documented By: MARISELA Co-signed By: ANATOLIY Miscellaneous (Check Fentanyl Patch Placement) 1 each N/A QS [facility] Stop: 09/02/23 00:00 Last Admin: 08/02/23 23:02 Dose: 1 each Documented By: MARISELA Olanzapine (Olanzapine 5 Mg Tablet) 5 mg PO BID [facility] Stop: 09/01/23 21:24 Last Admin: 08/02/23 23:02 Dose: 5 mg Documented By: MARISELA Discontinued Medications Hydromorphone HCl (Hydromorphone Inj 1 Mg/Ml Syringe) 1 mg IV NOW STA Stop: 08/02/23 17:37 Last Admin: 08/02/23 17:47 Dose: 1 mg Documented By: JEFFREY Sodium Chloride (Nss) 1,000 mls @ 999 mls/hr IV .Q1H1M JESSE Stop: 08/02/23 18:36 Last Infusion: 08/02/23 19:03 Dose: Infused Documented By: Admin: 08/02/23 17:47 Dose: 999 mls/hr Documented By: JEFFREY Cefepime HCl (Maxipime) 2,000 mg in 20 mls @ 5 mls/min IV NOW STA; Protocol Stop: 08/02/23 17:46 Last Admin: 08/02/23 17:47 Dose: 5 mls/min Documented By: JEFFREY Sodium Chloride (Nss) 1,000 mls @ 150 mls/hr IV .Q6H40M [facility] Stop: 09/01/23 18:14 Last Infusion: 08/02/23 21:27 Dose: Infused Documented By: Admin: 08/02/23 19:03 Dose: 150 mls/hr Documented By: [facility] Imaging Data Radiologist's Impression: Chest X-Ray 08/02/23 17:06 XR chest 1V portable CLINICAL HISTORY: Chest pain, nonspecific TECHNIQUE: Single frontal radiograph of the chest was obtained. Comparison: Comparison is made to chest radiograph 07/13/[address] abdomen pelvis 07/13/2023 FINDINGS: A port catheter is seen. Peripheral density in the right midlung is again seen. The lungs are clear. No evidence of pleural effusion or pneumothorax. IMPRESSION: Peripheral right airspace opacities are stable from prior exam. Otherwise no acute abnormalities. ACT 112: Negative or not required by law. Electronically signed by: Mariano Guerrier M.D. 08/02/2023 6:47 PM Discharge Plan Visit Data Chief Complaint: Weakness Stated Complaint: WEAKNESS ED Provider: Ashley Rosen Discharge Problem: Weakness generalized, Type II diabetes mellitus, Breast cancer metastasized to multiple sites Patient Disposition: Admitted As Inpatient Discharge Instructions Interventions: ED Discharge Assessment Last Done: 08/02/23 20:58 Discharge Problem: Type II diabetes mellitus Qualifiers: Diabetes mellitus intermediate insulin use: with termite exterminator helper use Diabetes mellitus complication status: with other specified complication Qualified Code(s): E11.69 - Type 2 diabetes mellitus with other specified complication; 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
[2023-08-03] MEDS: CEFEPIME 2,000 MG in SYRINGE 0 ML IV SCH (02:32)
[2023-08-03] MEDS: HEPARIN 100 UNIT/ML 5ML FLUSH ONE ×2 (07:36→09:17)
[2023-08-03] MEDS: oxyCODONE HCL IR 5 MG TAB (IMMEDIATE RELEASE) PO PRN (07:41)
[2023-08-03 08:15] LABS: BUN Creatinine Ratio 24.7 (10-20); Calcium 8.4 mg/dl (8.6-10.3); Creatinine Clr Calc Pharmacy 111.3 ml/min; Est GFR (African American) 107.3 ml/min; Est GFR (Non-African American) 92.6 ml/min; Potassium 3.8 mmol/L (3.5-5.1)
[2023-08-03 08:39] LABS: Hematocrit (blood only) 19.4 % (37.0-47.0); Hemoglobin 6.7 g/dl (12.0-16.0); Mean Corpuscular Hemoglobin 28.9 pg (25.0-34.0); Mean Corpuscular Hgb Conc 34.5 g/dL (32.0-36.0); Mean Corpuscular Volume 83.6 fL (80.0-100.0); Mean Platelet Volume 8.9 fL (9.4-12.4); Platelet Count 147 K/uL (130-400); RDW Standard Deviation 54.8 fL (36.4-46.3); Red Blood Count 2.32 M/uL (4.20-5.40)
[2023-08-03] MEDS: fentaNYL 25 MCG/HR TDSY TD SCH (08:54)
[2023-08-03 09:38] LABS: Hematocrit (blood only) 20.4 % (37.0-47.0); Hemoglobin 6.9 g/dl (12.0-16.0)
[2023-08-03] MEDS: HEPARIN 100 UNIT/ML 5ML FLUSH FLUSH PRN (11:09)
[2023-08-03] MEDS ORDERED: SODIUM CHLORIDE 0.9% 250 ML IV PRN (11:42)
--- NOTE | 2023-08-03 13:10 | CT Scan Report ---
CT chest diagnostic wo con CT DOSE: 686.56 mGy.cm CLINICAL HISTORY: 48 years-old Female with r/o acute pneumonia, opacities on xray. Acute shortness o f breath in a patient with history of breast cancer. TECHNIQUE: Multiaxial CT images of the chest were performed without contrast. A dose lowering techni que was utilized adhering to the principles of ALARA. COMPARISON: Chest radiograph 08/02/2023, CTA chest 04/19/2023. FINDINGS: Heterogeneous thyroid with ill-defined subcentimeter nodules. Left subclavian Wvvmrc-h-Nebj catheter. Trace pericardial effusion. Moderate coronary artery calcifications. Trace pleural effusions. Postoperative changes of the left breast. No pneumothorax or overt pulmonary edema. Peripheral subpleural consolidation of the right lung measures up to 10 cm within the right l ower lobe on image 139 and 10 cm within the peripheral right lung on image 112. Several of the irregu lar nodular areas of consolidation within the right lung have resolved from the prior chest CT. Mild linear bibasilar atelectasis versus scarring. 3 mm solid nodule within the right middle lobe on image 124 is unchanged. 2 mm fissural nodule within the right lung on image 102 has decreased in size from prior suggestive of a lymph node. No new or enlarging pulmonary nodules. Central airways are patent. Postoperative changes of the left lung. Splenomegaly. Cholecystectomy. No acute upper abdominal abnormality. Extensive osseous metastasis red emonstrated which are mixed osteoblastic and osteolytic. Chronic pathologic thoracic compression defo rmities are noted with progressive vertebral body height loss at T7 and T8. There may also be epidura l extension of disease within the thoracic spine. Pathologic fracturing of the sternal manubrium. IMPRESSION: 1. Peripheral subpleural consolidation throughout the right lung is likely infectious or inflammatory . 2. Trace pleural effusions. 3. No new or progressive lymphadenopathy. 4. Extensive mixed osteoblastic and osteolytic skeletal metastasis redemonstrated with pathologic fra ctures within the thoracic spine. There is progressive vertebral body height loss involving the T7 an d T8 vertebral bodies without significant retropulsion. There is also pathologic fracturing of the st ernal manubrium. ACT 112: Negative or not required by law. Dictated: 08/03/2023 12:35 PM Transcribed: 08/03/2023 1:07 PM Geremias [id number] Eli [id number] Electronically signed by: Ruddy Chen M.D. 08/03/2023 1:09 PM
--- NOTE | 2023-08-03 16:38 | Hospitalist Progress Note ---
Date of Service August 03, 2023 Assessment & Plan (1) Weakness generalized: (2) Parainfluenza: (3) Breast cancer metastasized to bone: (4) Anemia: (5) Type II diabetes mellitus: Plan Pt is a 48-year-old female with PMHx significant for metastatic breast cancer on chemotherapy, DM type II on insulin, Depression, hypothyroidism admitted with generalized weakness, with concern for need for transfusion. Generalized weakness Chronic Anemia Hgb of ~ 8 on admission Decreased to 6.7-6.9 the following AM S/p transfusion of 1pRBC unit on 08/02 AM anemia panel with iron levels, ferrtin, b12 and folate Supplement as needed based on the results PT/OT Likely in setting of chemotherapy Parainfluenza Infection Subpleural consolidation Pt tested positive for parainfluenza on biofire Chest XRAY noting right airspace opacities Chest CT noting subpleural consolidation concerning for infection vs. inflammation Blood Cx x2 sets pending Following fever curve Asymptomatic, no increased oxygen requirement Can be contributing to fatigue with anemia noted above Symptomatic treatment for viral infection Given immunocompromised state and CT chest findings, continue Cefepime, Vancomycin and Doxycycline Discontinue Vancomycin based on MRSA nares swab Consider Pulmonology followup for noted lung changes Continue to monitor DMII AM [id number] pending basal/bolus Metastatic Breast Cancer On chemotherapy Pain control Follows with Palliative Care heme/onc was consulted on admission, appreciate recs DVT prophylaxis: Lovenox SQ Diet: DMII Dispo: PT/OT ordered for further recs Admission and Anticipated Discharge Date Admission Date: August 02, 2023 Subjective pt was seen laying in bed. States that she just feels tired. Denies SOB notes she got a blood transfusion recently Review of Systems Review of Systems: All systems reviewed & are unremarkable except as noted in Subjective Physical Exam Physical Exam: General: Alert, oriented. No acute distress Psych: Appropriate mood and affect Neuro: No gross deficits HEENT: NC/AT CV: RRR Resp: Breath sounds clear bilaterally, no increased effort of breathing. Abdomen: Soft Extremities: No edema in lower extremities bilaterally. Results & Data Results & Data Vital Signs (Past 12 Hours) Vital Signs Temp Pulse Resp BP BP Pulse Ox O2 Del Method 08/03/23 07:53 36.6 C 82 18 92/59 L 100 Room Air 08/02/23 21:10 Room Air 08/02/23 21:10 36.4 C L 108 H 18 125/74 100 Room Air 08/02/23 21:10 Room Air 08/02/23 21:10 36.4 C L 108 H 18 125/74 100 Room Air Diagnostic Findings Chest X-Ray 08/02/23 17:06 XR chest 1V portable CLINICAL HISTORY: Chest pain, nonspecific TECHNIQUE: Single frontal radiograph of the chest was obtained. Comparison: Comparison is made to chest radiograph 07/13/[address] abdomen pelvis 07/13/2023 FINDINGS: A port catheter is seen. Peripheral density in the right midlung is again seen. The lungs are clear. No evidence of pleural effusion or pneumothorax. IMPRESSION: Peripheral right airspace opacities are stable from prior exam. Otherwise no acute abnormalities. ACT 112: Negative or not required by law. Electronically signed by: Mariano Guerrier M.D. 08/02/2023 6:[address] 08/03/23 09:28 CT chest diagnostic wo con CT DOSE: 686.56 mGy.cm CLINICAL HISTORY: 48 years-old Female with r/o acute pneumonia, opacities on xray. Acute shortness of breath in a patient with history of breast cancer. TECHNIQUE: Multiaxial CT images of the chest were performed without contrast. A dose lowering technique was utilized adhering to the principles of ALARA. COMPARISON: Chest radiograph 08/02/2023, CTA chest 04/19/2023. FINDINGS: Heterogeneous thyroid with ill-defined subcentimeter nodules. Left subclavian Eigcrv-g-Mmht catheter. Trace pericardial effusion. Moderate coronary artery calcifications. Trace pleural effusions. Postoperative changes of the left breast. No pneumothorax or overt pulmonary edema. Peripheral subpleural consolidation of the right lung measures up to 10 cm within the right lower lobe on image 139 and 10 cm within the peripheral right lung on image 112. Several of the irregular nodular areas of consolidation within the right lung have resolved from the prior chest CT. Mild linear bibasilar atelectasis versus scarring. 3 mm solid nodule within the right middle lobe on image 124 is unchanged. 2 mm fissural n odule within the right lung on image 102 has decreased in size from prior suggestive of a lymph node. No new or enlarging pulmonary nodules. Central airways are patent. Postoperative changes of the left lung. Splenomegaly. Cholecystectomy. No acute upper abdominal abnormality. Extensive osseous metastasis redemonstrated which are mixed osteoblastic and osteolytic. Chronic pathologic thoracic compression deformities are noted with progressive vertebral body height loss at T7 and T8. There may also be epidural extension of disease within the thoracic spine. Pathologic fracturing of the sternal manubrium. IMPRESSION: 1. Peripheral subpleural consolidation throughout the right lung is likely infectious or inflammatory. 2. Trace pleural effusions. 3. No new or progressive lymphadenopathy. 4. 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 There is progressive vertebral body height loss involving the T7 and T8 vertebral bodies without significant retropulsion. There is also pathologic fracturing of the sternal manubrium. ACT 112: Negative or not required by law. Dictated: 08/03/2023 12:35 PM Transcribed: 08/03/2023 1:07 PM Geremias [id number] GUICHO_Mohit [id number] Electronically signed by: Ruddy Chen M.D. 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
--- NOTE | 2023-08-03 16:49 | Oncology Consultation ---
Date of Consultation August 03, 2023 Assessment & Plan (1) Breast cancer metastasized to multiple sites: Continue outpatient management with eribulin and outpatient follow-up in the clinic. (2) Weakness generalized: Continue supportive care, IV fluids antinausea medication. Rest of the medical management per hospital internal medicine colleagues Plan medical oncology will continue to follow, make appropriate recommendations. History of Present Illness Reason for Consultation: Metastatic breast cancer Attending Physician: Leela Meyers MD History of Present Illness 48 yo female with metastatic breast cancer. Disease progression with previous regimens. Was scheduled to start Eribulin 04/19/2023 but was unable to proceed due to Na+ of 130 and a calcium level of 12.3. She was referred to the ED and was admitted as an inpatient for further care. C1D1 04/26/2023 and C1D8 05/13/2023. Was scheduled for C2D1 06/03/2023 but was unable to get transportation Please refer to Dr. Vazquez's note from 03/31/2023 for full HPI and history [See 03/11/2022 note for expanded details] Diagnosis: 1. 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 Invasive ductal carcinoma of the far lateral right breast, grade 1, ER 90%, MD 80%, and HER2 1+, diagnosed 10/15/17 3. Subsequently relapsed as metastatic disease Stage: 1. 2016 left breast anatomic stage IIB and prognostic stage IB (pT2 pN1a cM0 G2 ER+ MD+ HER2 -)at diagnosis 2. [id number] cN0in the right breast but with concomitant signs of widespreadlytic and bony metastases, unclear if this was truly a metachronous primary versus part of metastatic recurrence of her original disease Treatment: Endocrine refractory after zoladex/anastrozole >> fulvestrant/palbociclib >> exemestane/everolimus >> repeat fulvestrant/palbociclib Also with evolving injection site reactions to the fulvestrant Fulvestrant/palbociclib therapy discontinued as of 04/15/2022 Weekly low-dose paclitaxel x 7 doses 05/20/2022 - 07/01/2022, discontinued b/o excessive neurotoxicity Capecitabine start 08/14/2022 as 2500 mg (1000 mg/M2) po bid days 1-14 of a 21- day cycle Stopped after 2 cycles by the patient because of unacceptable diarrhea Gemcitabinestarted 12/10/2022 with "day 8" delayed until 12/24/2022 but ongoing significant nausea and vomiting in the interim since then Admitted 01/07/2023 with possible cholecystitis, chemotherapy regimen suspended [id number] did not identify other potential options for future treatment Plan a comprehensive second opinion with the [facility] medical oncology team before proceeding with additional systemic treatment. She is currently receiving palliative radiation to her ribs but 01/07/2023 was admitted with acute exacerbation of GI symptoms and uncontrolled pain Continuing denosumab q 3 month, not clear we have additional interventions for the spontaneous rib fractures patient admitted with intractable nausea and vomiting associated with the chemotherapy Allergies Allergy/AdvReac Type Severity Reaction Status Date / Time No Known Allergies Allergy Verified 08/02/23 18:13 Home Medications Medication Instructions Recorded Confirmed Type insulin aspart U-100 100 unit/mL 10 sliding scale dose subcut AC 06/25/23 08/02/23 History (3 mL) subcutaneous pen (Novolog FlexPen U-100 Insulin aspart) ondansetron 8 mg disintegrating 8 mg translingual BID PRN Nausea 06/25/23 08/02/23 History tablet And Vomiting olanzapine 5 mg tablet (Zyprexa) 5 mg PO BID #60 tabs 07/12/23 08/02/23 Rx insulin glargine 100 unit/mL (3 25 unit (0.25 mL) subcut BID #0 mL 07/21/23 08/02/23 Rx mL) subcutaneous pen (Lantus Solostar U-100 Insulin) hydromorphone 4 mg tablet 4 mg PO Q4H PRN severe 07/22/23 08/02/23 Rx (Dilaudid) breakthrough cancer pain 1 month #180 tabs fentanyl 25 mcg/hr transdermal 25 mcg topical [id number] 08/02/23 08/02/23 History patch oxycodone 20 mg tablet 20 mg PO Q4 PRN severe cancer pain 08/02/23 08/02/23 History Patient History Medical History (Updated 08/02/23 @ 23:42 by Ashley Rosen MD) DM type 2 (diabetes mellitus, type 2) Breast cancer metastasized to bone History of COVID-19 12/2020 + 12/2021 > residual taste dysfunction and feeling of need to clear throat Bilateral breast cancer Arthritis Liver spots "Mets from cancer" Depression with anxiety Peripheral neuropathy Heart palpitations R/t anxiety per patient History of small bowel obstruction Hx bowel obstruction Hypothyroidism No current meds Surgical History History of tubal ligation Port-A-Cath in place (04/30/22) Insertion Access Port left subclavian with Fluoroscopy(Left) - Chad Banuelos DO History of surgery Left Excisional Debridement of Buttock Wound Nausea and vomiting after administration of anesthetic agent "EXTREME" History of vascular access device PORT INSERTION/REMOVAL History of tooth extraction History of endometrial ablation History of bowel resection D/T BOWEL OBSTRUCTION History of lung surgery Left thoracoscopy with wedge resection left lower lobe Dr. Damico 03/29/2018 History of dilatation and curettage H/O hernia repair Hx of section x3 S/P lumpectomy, left breast LEFT ARM LIMB RESTRICTION Family History Mother , 77yo Diabetes Heart disease Aortic valve replacement Mitral valve calcifications UTI (urinary tract infection) Father , 62yo Diabetes Myocardial infarction Hypertension Stroke Brother Diabetes Myocardial infarction Cardiac stents Pacemaker Hypertension Sister No problems noted. Daughter No problems noted. Son No problems noted. Son No problems noted. Other No family history of adverse response to anesthesia Social History Smoking Status: Never smoker Second Hand Exposure: No; Do You Dip or Chew Tobacco: No; Tobacco Cessation Education Requested by Patient: No Hx Alcohol Use: No Hx Substance Use: Yes Last Used Substance: Unknown Last Used Substance Other:: Only uses medical marijuana vaping for pain. Substance Use Type Other:: Medical marijuana. 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 How many Children do You have: 3 Other Information That Helps Us Care for You: No Feels Safe at Home: Yes Safety Concerns: Feels Safe At This Time Diet: regular caffeine: No during the past year weight has: remained stable Assistive Devices: Bedside Commode and Wheelchair Results & Data Vital Signs (Past 12 Hours) Vital Signs Temp Pulse Pulse Resp BP BP Pulse Ox 08/03/23 15:55 36.4 C L 86 18 93/61 L 98 08/03/23 15:37 36.8 C 87 16 102/66 100 08/03/23 15:15 36.9 C 85 16 103/69 99 08/03/23 14:15 36.7 C 89 18 105/72 96 08/03/23 13:11 36.9 C 93 H 18 100/69 97 08/03/23 12:45 36.7 C 98 H 18 116/78 99 08/03/23 12:30 36.6 C 93 H 18 109/73 98 08/03/23 12:06 36.9 C 92 H 18 100/66 97 08/03/23 07:53 36.6 C 82 18 92/59 L 100 O2 Del Method O2 Flow Rate 08/03/23 15:55 Room Air 08/03/23 15:37 08/03/23 15:15 08/03/23 14:15 08/03/23 13:11 08/03/23 12:45 0 08/03/23 12:30 0 08/03/23 12:06 08/03/23 07:53 Room Air (1) Breast cancer metastasized to multiple sites Laterality: unspecified laterality Qualified Code(s): C50.919 - Malignant neoplasm of unspecified site of unspecified female breast
[2023-08-03] MEDS ORDERED: VANCOMYCIN CONSULT ACTIVE PRN (16:51)
[2023-08-03 17:06] LABS: Hemoglobin 8.4 g/dl (12.0-16.0)
[2023-08-03] MEDS: VANCOMYCIN HCL 2,500 MG in SODIUM CHLORIDE 0.9% 500 ML IV ONE (18:05)
[2023-08-03] MEDS: DOXYCYCLINE HYCLATE 100 MG in DEXTROSE 5% MINI-B 100 ML IV SCH (18:15)
[2023-08-04] MEDS: VANCOMYCIN HCL 1,500 MG in SODIUM CHLORIDE 0.9% 500 ML IV SCH (05:03)
--- NOTE | 2023-08-04 06:23 | Electrocardiogram Report ---
Test Reason : Blood Pressure : / mmHG Vent. Rate : 089 BPM Atrial Rate : 089 BPM P-R Int : 128 ms QRS Dur : 076 ms QT Int : 386 ms P-R-T Axes : 015 -12 039 degrees QTc Int : 469 ms Normal sinus rhythm Normal ECG When compared with ECG of 07-JUL-2023 19:40, No significant change was found Confirmed by Jem Corbett ([id number]) on 08/04/2023 6:22:54 AM Referred By: REFERRED SELF Confirmed By:Jem Corbett
[2023-08-04 08:21] LABS: Hematocrit (blood only) 22.4 % (37.0-47.0); Hemoglobin 7.7 g/dl (12.0-16.0); Mean Corpuscular Hemoglobin 28.4 pg (25.0-34.0); Mean Corpuscular Hgb Conc 34.4 g/dL (32.0-36.0); Mean Corpuscular Volume 82.7 fL (80.0-100.0); Mean Platelet Volume 9.2 fL (9.4-12.4); Nucleated RBC # (auto) 0.03 K/uL (0.00-0.12); Nucleated RBC % (auto) 2.2 %; Platelet Count 164 K/uL (130-400); RDW Standard Deviation 53.1 fL (36.4-46.3); Red Blood Count 2.71 M/uL (4.20-5.40); White Blood Count 1.38 K/ul (4.8-10.8)
[2023-08-04 08:37] LABS: Albumin Globulin Ratio 1.1 (0.9-2); Albumin Level 3.2 gm/dl (3.4-5.0); BUN Creatinine Ratio 17.4 (10-20); Bilirubin,Total 0.6 mg/dl (0.2-1.0); Calcium 8.3 mg/dl (8.6-10.3); Creatinine Clr Calc Pharmacy 99.6 ml/min; Est GFR (African American) 93.9 ml/min; Globulin 2.8 gm/dl (2.5-4.0); Magnesium 1.5 mg/dl (1.7-2.4); Potassium 3.9 mmol/L (3.5-5.1)
[2023-08-04 08:41] LABS: Estimated Average Glucose 169 mg/dl; Hemoglobin A1C 7.5 % (4.5-5.6)
[2023-08-04 08:51] LABS: Anisocytosis Present; Basophils # (auto) 0.06 K/uL (0.00-0.20); Basophils % (auto) 4.3 %; Immature Granulocytes # (auto) 0.02 K/uL (0.01-0.20); Immature Granulocytes % (auto) 1.4 %; Lymphocytes # (auto) 0.76 K/uL (1.20-3.40); Lymphocytes % (auto) 55.1 %; Monocytes # (auto) 0.15 K/uL (0.11-0.59); Monocytes % (auto) 10.9 %; Neutrophils # (auto) 0.39 K/uL (1.40-6.50); Neutrophils % (auto) 28.3 %; Polychromasia 1+
[2023-08-04 09:05] LABS: Folate (Folic Acid),Ser orPlas 4.07 ng/ml (>5.38)
[2023-08-04 10:34] LABS: Ferritin 1368.3 ng/ml (8-388)
--- NOTE | 2023-08-04 14:20 | Hospitalist Progress Note ---
Date of Service August 04, 2023 Assessment & Plan (1) Weakness generalized: (2) Parainfluenza: Plan: Parainfluenza virus pneumonitis Observation Conservative management (3) Breast cancer metastasized to bone: Plan: Admit to [facility] Patient presenting by referral of palliative care for evaluation of generalized weakness. Patient with history of metastatic breast cancer, currently on chemotherapy, last treatment on 07/26/2023. Today's treatment canceled due to low hemoglobin. According to outpatient palliative care note, patient has had difficulty obtaining a walker, has been generally weak, and has very little family support at this time. Pain seems to be reasonably controlled Pain medication will need to be adjusted to better control of pain and will be done as needed Remains otherwise stable Biofire + parainfluenza CXR shows Peripheral right airspace opacities, stable from prior exam S/p cefepime in the ED, will continue with for now given patient's immunocompromise state. Check MRSA nasal swab. Follow blood cultures. PRN nebs PT/OT (4) Anemia: Plan: Hgb 8.1, which is near patient's recent baseline, will consult oncology and defer transfusion (5) Type II diabetes mellitus: Plan: hgb a1c 9.3 05/2023 Lantus and Novolog SSI DVT PROPHYLAXIS SQ Lovenox Admission and Anticipated Discharge Date Admission Date: August 02, 2023 Subjective 08/04/2023 The patient was seen and examined in medical floor She has been complaining of increasing pain Dilaudid changed to every 3 hourly as needed Review of Systems Constitutional: All systems reviewed and are unremarkable except as noted below Physical Exam Physical Exam: Lying in bed without any acute distress Constitutional: well developed, well nourished and + ill appearing Eyes: PERRL, conjunctivae normal, anicteric sclerae ENMT: external ear and nose normal, oropharynx normal Neck: trachea midline, no thyromegaly Respiratory: no respiratory distress Auscultation: lungs clear to auscultation bilaterally Cardiovascular: Rate/Rhythm: regular rate and regular rhythm; not tachycardic Heart Sounds: normal S1 and normal S2; no murmur Gastrointestinal (Abdomen): Inspection/Auscultation: normal bowel sounds; abdo men not distended Percussion/Palpation: + abdomen tender and abdomen soft Musculoskeletal: No acute arthritis involving any of the joints Neurologic: normal touch/pain/proprioception and moves all extremities; no focal motor deficits Lymphatic: no cervical or axillary lymphadenopathy Results & Data Results & Data Vital Signs (Past 12 Hours) Vital Signs Temp Pulse Resp BP Pulse Ox O2 Del Method 08/04/23 13:22 36.8 C 94 H 18 109/72 98 Room Air 08/04/23 07:55 36.9 C 87 19 119/77 96 Room Air 08/04/23 07:22 Room Air Laboratory Results Short CBC 08/04/23 Range/Units 08:04 WBC 1.38 L (4.8-10.8) K/ul Hgb 7.7 L (12.0-16.0) g/dl Hct 22.4 L (37.0-47.0) % Plt Count 164 (130-400) K/uL BMP 08/04/23 08:04 Sodium 134 L Potassium 3.9 Chloride 106 Carbon Dioxide 21 BUN 15 Creatinine 0.86 Glucose 147 H Calcium 8.3 L Liver Function 08/04/23 Range/Units 08:04 Total Bilirubin 0.6 (0.2-1.0) mg/dl AST 17 (13-39) U/L ALT 14 (7-52) U/L Alkaline Phosphatase 135 H (34-104) U/L Albumin 3.2 L (3.4-5.0) gm/dl Urine 08/04/23 Range/Units 16:00 Urine Color Yellow Urine Appearance Clear (Clear) Urine pH 5.5 (4.5-7.5) Ur Specific [place] 1.019 (1.000-1.030) Urine Protein 1+ H (Negative) Urine Glucose (UA) Negative (Negative) Medications Administered Current Inpatient Medications Acetaminophen (Acetaminophen 325 Mg Tab) 650 mg PO Q4H PRN PRN Reason: pain/fever Stop: 09/01/23 21:24 Albuterol (Albut/Ipratrop 3mg/0.5mg Neb 3 Ml Vial) 3 ml NEB Q4R PRN; Protocol PRN Reason: Shortness Of Breath Or Wheezing Stop: 09/01/23 21:24 Dextrose (Dextrose 50% 50 Ml Syringe) 25 - 50 ml IV UD PRN; Protocol PRN Reason: Hypoglycemia Protocol Stop: 09/01/23 21:24 Enoxaparin Sodium (Enoxaparin Inj 40 Mg/0.4 Ml Syr) 40 mg SQ HS JESSE Stop: 09/01/23 21:59 Last Admin: 08/03/23 21:27 Dose: Not Given Fentanyl (Fentanyl 25 Mcg/Hr Tdsy) 1 patch TD Q72H [facility] Stop: 08/17/23 08:59 Last Admin: 08/03/23 08:54 Dose: 1 patch Glucagon (Glucagon For Inj 1 Mg Vial) 1 mg SQ UD PRN; Protocol PRN Reason: Hypoglycemia Protocol Stop: 09/01/23 21:24 Glucose (Glucose 40% Gel 15 Gm Tube) 15 - 30 gm PO UD PRN; Protocol PRN Reason: Hypoglycemia Protocol Stop: 09/01/23 21:24 Glucose (Glucose 10 Tab/Tube) 4 - 8 tab PO UD PRN; Protocol PRN Reason: Hypoglycemia Treatment Stop: 09/01/23 21:24 Heparin Sodium (Porcine) (Heparin 100 Unit/Ml 5ml Flush) 5 ml FLUSH PRN PRN PRN Reason: Flush Stop: 09/02/23 09:08 Last Admin: 08/04/23 15:38 Dose: 5 ml Hydromorphone HCl (Hydromorphone Inj 0.5 Mg/0.5 Ml Syr) 0.5 mg IV Q3H PRN PRN Reason: severe pain Stop: 08/16/23 21:24 Last Admin: 08/04/23 15:38 Dose: 0.5 mg Cefepime HCl 2,000 mg/ Syringe 20 mls @ 5 mls/min IV Q8H [facility]; Protocol Stop: 08/10/23 01:59 Last Admin: 08/04/23 09:17 Dose: 5 mls/min Doxycycline Hyclate 100 mg/ (Dextrose) 100 mls @ 50 mls/hr IV Q12H [facility] Stop: 08/10/23 16:59 Last Infusion: 08/04/23 07:11 Dose: Infused Insulin Aspart (Insulin Aspart Per Unit Charge) 0 units SC ACHS [facility] Stop: 09/01/23 21:24 Last Admin: 08/04/23 13:33 Dose: 181 units Insulin Glargine (Lantus Per Unit Charge) 25 units SQ BID [facility] Stop: 09/01/23 21:24 Last Admin: 08/04/23 09:18 Dose: 25 units Miscellaneous (Fentanyl Patch Remove & Waste) 1 each N/A Q72H [facility] Stop: 09/02/23 08:58 Last Admin: 08/03/23 08:54 Dose: 1 each Miscellaneous (Check Fentanyl Patch Placement) 1 each N/A QS [facility] Stop: 09/02/23 00:00 Last Admin: 08/04/23 15:39 Dose: 1 each Miscellaneous (Carbohydrates For Hypoglycemia ) 15 - 30 gm PO UD PRN PRN Reason: Hypoglycemia Protocol Stop: 09/01/23 21:24 Olanzapine (Olanzapine 5 Mg Tablet) 5 mg PO BID [facility] Stop: 09/01/23 21:24 Last Admin: 08/04/23 07:57 Dose: Not Given Ondansetron HCl (Ondansetron Inj 2 Mg/Ml 2 Ml Vial) 4 mg IV Q6H PRN PRN Reason: Nausea Stop: 09/01/23 21:24 Oxycodone HCl (Oxycodone Hcl Ir 5 Mg Tab (Immediate Release)) 20 mg PO Q4 PRN PRN Reason: Moderate Pain (Scale 4, 5, 6) Stop: 08/16/23 21:24 Last Admin: 08/04/23 07:55 Dose: 20 mg (3) Breast cancer metastasized to bone Laterality: unspecified laterality Qualified Code(s): C50.919 - Malignant neoplasm of unspecified site of unspecified female breast; C79.51 - Secondary malignant neoplasm of bone (5) Type II diabetes mellitus Diabetes mellitus complication status: with other specified complication Diabetes mellitus residential insulin use: with residential use Qualified Code(s): E11.69 - Type 2 diabetes mellitus with other specified complication; 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
[2023-08-04] MEDS: HYDROmorphone INJ 0.5 MG/0.5 ML SYR IV PRN (15:38)
[2023-08-04 16:22] LABS: Appearance Urine Clear (Clear); Bacteria Urine Automated None Seen (None Seen); Bilirubin Urine Negative (Negative); Blood Urine 3+ (Negative); Cast Urine Automated 0-2 /lpf (0-2); Color Urine Yellow; Epithelial Cell Urine Auto 0-2 /hpf (0-2); Glucose Urine UA Negative (Negative); Ketones Urine Trace (Negative); Leukocyte Esterase Urine Trace (Negative); Nitrite Urine Negative (Negative); Protein Urine 1+ (Negative); RBC Urine Automated >20 /hpf (0-2); Specific Gravity Urine 1.019 (1.000-1.030); Urobilinogen Urine Negative (Negative); WBC Urine Automated 0-5 /hpf (0-5); pH Urine 5.5 (4.5-7.5)
[2023-08-05] MEDS ORDERED: VANCOMYCIN LEVEL ONE (04:44)
[2023-08-05] MEDS: fentaNYL 50 MCG/HR TDSY TD SCH (11:27)
--- NOTE | 2023-08-05 15:52 | Hospitalist Progress Note ---
Date of Service August 05, 2023 Assessment & Plan (1) Weakness generalized: (2) Parainfluenza: Plan: Parainfluenza virus pneumonitis Observation Conservative management (3) Breast cancer metastasized to bone: Plan: Admit to [facility] Patient presenting by referral of palliative care for evaluation of generalized weakness. Patient with history of metastatic breast cancer, currently on chemotherapy, last treatment on 07/26/2023. Today's treatment canceled due to low hemoglobin. According to outpatient palliative care note, patient has had difficulty obtaining a walker, has been generally weak, and has very little family support at this time. Pain seems to be reasonably controlled Pain medication will need to be adjusted to better control of pain and will be done as needed Remains otherwise stable Continues to have pain and fentanyl patch was increased to 50 mcg every 72 hours Will get PT OT evaluation and possible discharge home in a day or 2 Biofire + parainfluenza CXR shows Peripheral right airspace opacities, stable from prior exam S/p cefepime in the ED, will continue with for now given patient's immunocompromise state. Check MRSA nasal swab. Follow blood cultures. PRN nebs Clinically much better and has been saturating normally on room air Will give oral antibiotic on discharge PT/OT (4) Anemia: Plan: Hgb 8.1, which is near patient's recent baseline, will consult oncology and defer transfusion Hemoglobin remained stable at 7.7 today Will check CBC tomorrow (5) Type II diabetes mellitus: Plan: hgb a1c 9.3 05/2023 Lantus and Novolog SSI DVT PROPHYLAXIS SQ Lovenox Admission and Anticipated Discharge Date Admission Date: August 02, 2023 Subjective 08/04/2023 The patient was seen and examined in medical floor She has been complaining of increasing pain Dilaudid changed to every 3 hourly as needed 08/05/2023 The patient was seen and examined in medical floor She has been complaining of more pain today Remain generally weak and lethargic Fentanyl patch has been increased to 50 mcg Review of Systems Constitutional: All systems reviewed and are unremarkable except as noted below Physical Exam Physical Exam: Lying in bed without any acute distress Constitutional: well developed, well nourished and + ill appearing Eyes: PERRL, conjunctivae normal, anicteric sclerae ENMT: external ear and nose normal, oropharynx normal Neck: trachea midline, no thyromegaly Respiratory: no respiratory distress Auscultation: lungs clear to auscultation bilaterally Cardiovascular: Rate/Rhythm: regular rate and regular rhythm; not tachycardic Heart Sounds: normal S1 and normal S2; no murmur Gastrointestinal (Abdomen): Inspection/Auscultation: normal bowel sounds; abdomen not distended Percussion/Palpation: + abdomen tender and abdomen soft Neurologic: normal touch/pain/proprioception and moves all extremities; no focal motor deficits Lymphatic: no cervical or axillary lymphadenopathy Results & Data Results & Data Vital Signs (Past 12 Hours) Vital Signs Temp Pulse Resp BP Pulse Ox O2 Del Method 08/05/23 14:04 36.7 C 95 H 16 96/65 L 96 Room Air 08/05/23 07:17 36.7 C 91 H 16 111/73 97 Room Air Laboratory Results Urine 08/04/23 Range/Units 16:00 Urine Color Yellow Urine Appearance Clear (Clear) Urine pH 5.5 (4.5-7.5) Ur Specific [place] 1.019 (1.000-1.030) Urine Protein 1+ H (Negative) Urine Glucose (UA) Negative (Negative) Medications Administered Current Inpatient Medications Acetaminophen (Acetaminophen 325 Mg Tab) 650 mg PO Q4H PRN PRN Reason: pain/fever Stop: 09/01/23 21:24 Albuterol (Albut/Ipratrop 3mg/0.5mg Neb 3 Ml Vial) 3 ml NEB Q4R PRN; Protocol PRN Reason: Shortness Of Breath Or Wheezing Stop: 09/01/23 21:24 Dextrose (Dextrose 50% 50 Ml Syringe) 25 - 50 ml IV UD PRN; Protocol PRN Reason: Hypoglycemia Protocol Stop: 09/01/23 21:24 Doxycycline Hyclate (Doxycycline Hyclate 100 Mg Cap) 100 mg PO Q12H [facility] Stop: 08/10/23 16:59 Enoxaparin Sodium (Enoxaparin Inj 40 Mg/0.4 Ml Syr) 40 mg SQ HS [facility] Stop: 09/01/23 21:59 Last Admin: 08/04/23 20:30 Dose: Not Given Fentanyl (Fentanyl 50 Mcg/Hr Tdsy) 1 patch TD Q3D@0900 [facility] Stop: 08/19/23 10:59 Last Admin: 08/05/23 11:27 Dose: 1 patch Glucagon (Glucagon For Inj 1 Mg Vial) 1 mg SQ UD PRN; Protocol PRN Reason: Hypoglycemia Protocol Stop: 09/01/23 21:24 Glucose (Glucose 40% Gel 15 Gm Tube) 15 - 30 gm PO UD PRN; Protocol PRN Reason: Hypoglycemia Protocol Stop: 09/01/23 21:24 Glucose (Glucose 10 Tab/Tube) 4 - 8 tab PO UD PRN; Protocol PRN Reason: Hypoglycemia Treatment Stop: 09/01/23 21:24 Heparin Sodium (Porcine) (Heparin 100 Unit/Ml 5ml Flush) 5 ml FLUSH PRN PRN PRN Reason: Flush Stop: 09/02/23 09:08 Last Admin: 08/05/23 01:56 Dose: 5 ml Hydromorphone HCl (Hydromorphone Inj 0.5 Mg/0.5 Ml Syr) 0.5 mg IV Q3H PRN PRN Reason: severe pain Stop: 08/16/23 21:24 Last Admin: 08/05/23 10:27 Dose: 0.5 mg Cefepime HCl 2,000 mg/ Syringe 20 mls @ 5 mls/min IV Q8H [facility]; Protocol Stop: 08/10/23 01:59 Last Admin: 08/05/23 10:19 Dose: 5 mls/min Insulin Aspart (Insulin Aspart Per Unit Charge) 0 units SC ACHS [facility] Stop: 09/01/23 21:24 Last Admin: 08/05/23 12:24 Dose: 8 units Insulin Glargine (Lantus Per Unit Charge) 25 units SQ BID [facility] Stop: 09/01/23 21:24 Last Admin: 08/05/23 08:07 Dose: 25 units Miscellaneous (Carbohydrates For Hypoglycemia ) 15 - 30 gm PO UD PRN PRN Reason: Hypoglycemia Protocol Stop: 09/01/23 21:24 Miscellaneous (Fentanyl Patch Remove & Waste) 1 each N/A Q3D@0859 [facility] Stop: 09/04/23 10:58 Last Admin: 08/05/23 11:28 Dose: 1 each Miscellaneous (Check Fentanyl Patch Placement) 1 each N/A QS [facility] Stop: 09/04/23 15:59 Olanzapine (Olanzapine 5 Mg Tablet) 5 mg PO BID [facility] Stop: 09/01/23 21:24 Last Admin: 08/05/23 07:37 Dose: 5 mg Ondansetron HCl (Ondansetron Inj 2 Mg/Ml 2 Ml Vial) 4 mg IV Q6H PRN PRN Reason: Nausea Stop: 09/01/23 21:24 Oxycodone HCl (Oxycodone Hcl Ir 5 Mg Tab (Immediate Release)) 20 mg PO Q4 PRN PRN Reason: Moderate Pain (Scale 4, 5, 6) Stop: 08/16/23 21:24 Last Admin: 08/05/23 07:35 Dose: 20 mg (3) Breast cancer metastasized to bone Laterality: unspecified laterality Qualified Code(s): C50.919 - Malignant neoplasm of unspecified site of unspecified female breast; C79.51 - Secondary malignant neoplasm of bone (5) Type II diabetes mellitus Diabetes mellitus complication status: with other specified complication 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
[2023-08-05] MEDS: CHECK fentaNYL PATCH PLACEMENT SCH (16:07)
[2023-08-05] MEDS: DOXYCYCLINE HYCLATE 100 MG CAP PO SCH (18:35)
[2023-08-06 07:47] LABS: Hematocrit (blood only) 24.6 % (37.0-47.0); Hemoglobin 8.3 g/dl (12.0-16.0); Mean Corpuscular Hemoglobin 28.8 pg (25.0-34.0); Mean Corpuscular Hgb Conc 33.7 g/dL (32.0-36.0); Mean Corpuscular Volume 85.4 fL (80.0-100.0); Mean Platelet Volume 9.4 fL (9.4-12.4); Nucleated RBC # (auto) 0.05 K/uL (0.00-0.12); Nucleated RBC % (auto) 3.5 %; Platelet Count 212 K/uL (130-400); RDW Coefficient of Variation 19.1 % (11.5-14.5); Red Blood Count 2.88 M/uL (4.20-5.40); White Blood Count 1.41 K/ul (4.8-10.8)
[2023-08-06 08:55] LABS: Basophils # (auto) 0.02 K/uL (0.00-0.20); Basophils % (auto) 1.4 %; Immature Granulocytes # (auto) 0.03 K/uL (0.01-0.20); Immature Granulocytes % (auto) 2.1 %; Lymphocytes # (auto) 0.86 K/uL (1.20-3.40); Monocytes # (auto) 0.33 K/uL (0.11-0.59); Monocytes % (auto) 23.4 %; Neutrophils # (auto) 0.17 K/uL (1.40-6.50); Neutrophils % (auto) 12.1 %
[2023-08-06 08:56] LABS: Polychromasia 1+
--- NOTE | 2023-08-06 15:46 | Hospitalist Progress Note ---
Date of Service August 06, 2023 Assessment & Plan (1) Weakness generalized: (2) Parainfluenza: Plan: Parainfluenza virus pneumonitis Observation Conservative management (3) Breast cancer metastasized to bone: Plan: Admit to [facility] Patient presenting by referral of palliative care for evaluation of generalized weakness. Patient with history of metastatic breast cancer, currently on chemotherapy, last treatment on 07/26/2023. Today's treatment canceled due to low hemoglobin. According to outpatient palliative care note, patient has had difficulty obtaining a walker, has been generally weak, and has very little family support at this time. Pain seems to be reasonably controlled Pain medication will need to be adjusted to better control of pain and will be done as needed Remains otherwise stable Continues to have pain and fentanyl patch was increased to 50 mcg every 72 hours Will get PT OT evaluation and possible discharge home in a day or 2 PT recommended rehab Appreciate palliative care input and recommendation Pain medicine has been adjusted Biofire + parainfluenza CXR shows Peripheral right airspace opacities, stable from prior exam S/p cefepime in the ED, will continue with for now given patient's immunocompromise state. Check MRSA nasal swab. Follow blood cultures. PRN nebs Clinically much better and has been saturating normally on room air Will give oral antibiotic on discharge No acute respiratory symptoms PT/OT (4) Anemia: Plan: Hgb 8.1, which is near patient's recent baseline, will consult oncology and defer transfusion Hemoglobin remained stable at 7.7 today Will check CBC tomorrow (5) Type II diabetes mellitus: Plan: hgb a1c 9.3 05/2023 Lantus and Novolog SSI DVT PROPHYLAXIS SQ Lovenox Admission and Anticipated Discharge Date Admission Date: August 02, 2023 Subjective 08/04/2023 The patient was seen and examined in medical floor She has been complaining of increasing pain Dilaudid changed to every 3 hourly as needed 08/05/2023 The patient was seen and examined in medical floor She has been complaining of more pain today Remain generally weak and lethargic Fentanyl patch has been increased to 50 mcg 08/06/2023 Patient was seen and examined in medical floor Pain is controlled with current regimen Appreciate palliative input and recommendation Review of Systems Constitutional: All systems reviewed and are unremarkable except as noted below Physical Exam Physical Exam: Lying in bed without any acute distress Constitutional: well developed, well nourished and + ill appearing Eyes: PERRL, conjunctivae normal, anicteric sclerae ENMT: external ear and nose normal, oropharynx normal Neck: trachea midline, no thyromegaly Respiratory: no respiratory distress Auscultation: lungs clear to auscultation bilaterally Cardiovascular: Rate/Rhythm: regular rate and regular rhythm; not tachycardic Heart Sounds: normal S1 and normal S2; no murmur Gastrointestinal (Abdomen): Inspection/Auscultation: normal bowel sounds; abdomen not distended Percussion/Palpation: + abdomen tender and abdomen soft Neurologic: normal touch/pain/proprioception and moves all extremities; no focal motor deficits Lymphatic: no cervical or axillary lymphadenopathy Results & Data Results & Data Vital Signs (Past 12 Hours) Vital Signs Temp Pulse Resp BP Pulse Ox O2 Del Method O2 Flow Rate 08/06/23 15:40 36.8 C 91 H 16 96/62 L 100 Room Air 08/06/23 08:00 36.8 C 89 16 103/70 95 Nasal Cannula 3 Laboratory Results Short CBC 08/06/23 Range/Units 07:24 WBC 1.41 L (4.8-10.8) K/ul Hgb 8.3 L (12.0-16.0) g/dl Hct 24.6 L (37.0-47.0) % Plt Count 212 (130-400) K/uL Medications Administered Current Inpatient Medications Acetaminophen (Acetaminophen 325 Mg Tab) 650 mg PO Q4H PRN PRN Reason: mild pain/fever Stop: 09/01/23 21:24 Albuterol (Albut/Ipratrop 3mg/0.5mg Neb 3 Ml Vial) 3 ml NEB Q4R PRN; Protocol PRN Reason: Shortness Of Breath Or Wheezing Stop: 09/01/23 21:24 Dextrose (Dextrose 50% 50 Ml Syringe) 25 - 50 ml IV UD PRN; Protocol PRN Reason: Hypoglycemia Protocol Stop: 09/01/23 21:24 Doxycycline Hyclate (Doxycycline Hyclate 100 Mg Cap) 100 mg PO Q12H [facility] Stop: 08/10/23 16:59 Last Admin: 08/06/23 04:37 Dose: Not Given Enoxaparin Sodium (Enoxaparin Inj 40 Mg/0.4 Ml Syr) 40 mg SQ HS [facility] Stop: 09/01/23 21:59 Last Admin: 08/05/23 20:46 Dose: Not Given Fentanyl (Fentanyl 50 Mcg/Hr Tdsy) 1 patch TD Q3D@0900 [facility] Stop: 08/19/23 10:59 Last Admin: 08/05/23 11:27 Dose: 1 patch Glucagon (Glucagon For Inj 1 Mg Vial) 1 mg SQ UD PRN; Protocol PRN Reason: Hypoglycemia Protocol Stop: 09/01/23 21:24 Glucose (Glucose 40% Gel 15 Gm Tube) 15 - 30 gm PO UD PRN; Protocol PRN Reason: Hypoglycemia Protocol Stop: 09/01/23 21:24 Glucose (Glucose 10 Tab/Tube) 4 - 8 tab PO UD PRN; Protocol PRN Reason: Hypoglycemia Treatment Stop: 09/01/23 21:24 Heparin Sodium (Porcine) (Heparin 100 Unit/Ml 5ml Flush) 5 ml FLUSH PRN PRN PRN Reason: Flush Stop: 09/02/23 09:08 Last Admin: 08/06/23 09:28 Dose: 5 ml Hydromorphone HCl (Hydromorphone Inj 0.5 Mg/0.5 Ml Syr) 1 mg IV Q3H PRN PRN Reason: severe pain Stop: 08/16/23 21:24 Hydromorphone HCl (Hydromorphone Hcl 8 Mg Tab) 8 mg PO Q3H PRN PRN Reason: moderate-severe pain Stop: 08/20/23 13:46 Cefepime HCl 2,000 mg/ Syringe 20 mls @ 5 mls/min IV Q8H [facility]; Protocol Stop: 08/10/23 01:59 Last Admin: 08/06/23 09:28 Dose: 5 mls/min Insulin Aspart (Insulin Aspart Per Unit Charge) 0 units SC ACHS [facility] Stop: 09/01/23 21:24 Last Admin: 08/06/23 12:38 Dose: Not Given Insulin Glargine (Lantus Per Unit Charge) 25 units SQ BID [facility] Stop: 09/01/23 21:24 Last Admin: 08/06/23 09:24 Dose: 25 units Miscellaneous (Carbohydrates For Hypoglycemia ) 15 - 30 gm PO UD PRN PRN Reason: Hypoglycemia Protocol Stop: 09/01/23 21:24 Miscellaneous (Fentanyl Patch Remove & Waste) 1 each N/A Q3D@0859 [facility] Stop: 09/04/23 10:58 Last Admin: 08/05/23 11:28 Dose: 1 each Miscellaneous (Check Fentanyl Patch Placement) 1 each N/A QS [facility] Stop: 09/04/23 15:59 Last Admin: 08/06/23 07:29 Dose: 1 each Olanzapine (Olanzapine 5 Mg Tablet) 5 mg PO BID [facility] Stop: 09/01/23 21:24 Last Admin: 08/06/23 09:23 Dose: Not Given Ondansetron HCl (Ondansetron Inj 2 Mg/Ml 2 Ml Vial) 4 mg IV Q6H PRN PRN Reason: Nausea Stop: 09/01/23 21:24 (3) Breast cancer metastasized to bone Laterality: unspecified laterality Qualified Code(s): C50.919 - Malignant neoplasm of unspecified site of unspecified female breast; C79.51 - Secondary malignant neoplasm of bone (5) Type II diabetes mellitus Diabetes mellitus complication status: with other specified complication 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
[2023-08-06] MEDS: HYDROmorphone INJ 0.5 MG/0.5 ML SYR IV PRN (18:06)
--- NOTE | 2023-08-06 18:57 | Palliative Care Consultation ---
Date of Consultation August 06, 2023 Assessment & Plan (1) Cancer related pain: Dilaudid 1mg IV q3h prn ordered Dilaudid 8 mg p.o. every 3 hours as needed moderate to severe pain I have discontinued oral oxycodone (2) Intractable nausea and vomiting: Currently on Zofran IV and hydration, she feels this is helping. If nausea and vomiting remain problematic, would consider adding Ativan 0.5 mg under the tongue every 4 hours as needed for nausea along with dexamethasone 4 mg p.o. daily. During her last admission, Aloxi IV daily was used with some improvement noted however this cannot be continued in the home setting and I would therefore try to avoid it unless her symptoms become more refractory or do not respond to oral medications. (3) Therapeutic opioid-induced constipation (OIC): Bowel regimen with senna S 1 tablet twice daily (or 2 tablets p.o. daily) as well as MiraLAX 1 unit dose daily as needed. (4) Breast cancer metastasized to bone: Laterality: unspecified laterality Qualified Code(s): C50.919 - Malignant neoplasm of unspecified site of unspecified female breast; C79.51 - Secondary malignant neoplasm of bone (5) Depression: Depression Type: major depressive disorder Major depression recurrence: recurrent Active/Remission status: currently active Major depression episode severity: severe Psychotic features: without psychotic features Qualified Code(s): F33.2 - Major depressive disorder, recurrent severe without psychotic features (6) Palliative care by specialist: During her last visit with me on 08/02/2023, patient shared that she was unable to obtain a walker to use within her home because her insurance company refused to cover it. The reason for denial given was because they had in the past 3 years approved a motorized wheelchair. Patient was provided with a walker today through a palliative medicine private donor. Plan As above Thank you for allowing us to participate in the ongoing care of this patient. Please page with any additional concerns. Pilar Limon DNP Director, Palliative Medicine History of Present Illness Reason for Consultation: Continuity of care for cancer pain and symptom management/goals of care, patient is established with outpatient palliative medicine Attending Physician: Kiki Vivas MD History of Present Illness Yamilka Vega is a 48-year-old female with metastatic breast cancer with severe cancer related pain/uncontrolled, DM, hypothyroidism history of hypercalcemia, depression with anxiety, peripheral neuropathy, history of small bowel obstru ction. She has had breast ca progression on several lines of therapy. She has been started on eribulin per heme onc note and continues to struggle with chemo related toxicities including low cell counts/neutropenia, refractory nausea and vomiting, anorexia, malnutrition, fatigue, growing weakness/declining performance status and more recently, multiple falls with a growing inability to navigate her living space. Yamilka is well-known to my department and followed in outpatient clinic. She has very severe and complex cancer related pain along with a refractory nausea and vomiting. Due to the progressive complications of her nausea and vomiting, we have been escalating doses of transdermal fentanyl to optimize cancer pain related symptoms. She did not tolerate a trial of MS Contin. OxyContin was ordered but difficult to be approved by her insurance company. Due to a borderline QTc interval, methadone was not considered as a potential option for pain management while she is on active, ongoing cancer directed therapy. She is currently admitted with persistent neutropenia, refractory nausea and vomiting. Transdermal fentanyl patch was increased yesterday to 50 mcg/h every 3 days. She also has Dilaudid 0.5 mg IV every 3 hours as needed for breakthrough pain which is not providing adequate relief. On prior admissions, she did well with Dilaudid 1 mg IV as needed dosing. She is also receiving as needed oral oxycodone 20 mg p.o. every 4 hours which is not providing relief. During her prior admissions, oral Dilaudid did provide an improved relief when compared to oral oxycodone. Appetite remains poor and she continues to prefer liquids over solids. Her nausea for now is managed to her liking and sucking on peppermint candies has proven to be helping. She sips on liquids through the day and occasionally will have some soup with her lunch orders. She notes that when it comes to some solid foods, she seems to mostly prefer the mandarin oranges that come with her meal trays. BLE weakness persist, today when working with physical therapy, she fell while trying to walk to the bathroom. She is now agreeable to a trial of rehab at the [facility] in [place] upon discharge. She states that she recognizes she is not safe to return home at this time and she does not have adequate caregiver support to be at home. At her 08/02/2023 outpatient oncology visit, we delved deeper into the topic of end-of-life care and preferences as well as the goals she has for herself at this junction. She is aware that she is growing weaker. However, she wants to continue any and all cancer directed therapy so long as it will help extend her life even at the cost of some of its toxicities and side effects because she wants to be able to spend as much time as possible with her children who are ages 21, 15 and 11. She reaffirms CODE STATUS of DNR/DNI Allergies Allergy/AdvReac Type Severity Reaction Status Date / Time No Known Allergies Allergy Verified 08/02/23 18:13 Home Medications Medication Instructions Recorded Confirmed Type insulin aspart U-100 100 unit/mL 10 sliding scale dose subcut AC 06/25/23 08/02/23 History (3 mL) subcutaneous pen (Novolog FlexPen U-100 Insulin aspart) ondansetron 8 mg disintegrating 8 mg translingual BID PRN Nausea 06/25/23 08/02/23 History tablet And Vomiting olanzapine 5 mg tablet (Zyprexa) 5 mg PO BID #60 tabs 07/12/23 08/02/23 Rx insulin glargine 100 unit/mL (3 25 unit (0.25 mL) subcut BID #0 mL 07/21/23 08/02/23 Rx mL) subcutaneous pen (Lantus Solostar U-100 Insulin) hydromorphone 4 mg tablet 4 mg PO Q4H PRN severe 07/22/23 08/02/23 Rx (Dilaudid) breakthrough cancer pain 1 month #180 tabs fentanyl 25 mcg/hr transdermal 25 mcg topical [id number] 08/02/23 08/02/23 History patch oxycodone 20 mg tablet 20 mg PO Q4 PRN severe cancer pain 08/02/23 08/02/23 History Patient History Medical History (Updated 08/02/23 @ 23:42 by Ashley Rosen MD) DM type 2 (diabetes mellitus, type 2) Breast cancer metastasized to bone History of COVID-19 12/2020 + 12/2021 > residual taste dysfunction and feeling of need to clear throat Bilateral breast cancer Arthritis Liver spots "Mets from cancer" Depression with anxiety Peripheral neuropathy Heart palpitations R/t anxiety per patient History of small bowel obstruction Hx bowel obstruction Hypothyroidism No current meds Surgical History History of tubal ligation Port-A-Cath in place (04/30/22) Insertion Access Port left subclavian with Fluoroscopy(Left) - Chad Banuelos DO History of surgery Left Excisional Debridement of Buttock Wound Nausea and vomiting after administration of anesthetic agent "EXTREME" History of vascular access device PORT INSERTION/REMOVAL History of tooth extraction History of endometrial ablation History of bowel resection D/T BOWEL OBSTRUCTION History of lung surgery Left thoracoscopy with wedge resection left lower lobe Dr. Damico 03/29/2018 History of dilatation and curettage H/O hernia repair Hx of section x3 S/P lumpectomy, left breast LEFT ARM LIMB RESTRICTION Family History Mother , 77yo Diabetes Heart disease Aortic valve replacement Mitral valve calcifications UTI (urinary tract infection) Father , 62yo Diabetes Myocardial infarction Hypertension Stroke Brother Diabetes Myocardial infarction Cardiac stents Pacemaker Hypertension Sister No problems noted. Daughter No problems noted. Son No problems noted. Son No problems noted. Other No family history of adverse response to anesthesia Social History Smoking Status: Never smoker Second Hand Exposure: No; Do You Dip or Chew Tobacco: No; Tobacco Cessation Education Requested by Patient: No Hx Alcohol Use: No Hx Substance Use: Yes Last Used Substance: Unknown Last Used Substance Other:: Only uses medical marijuana vaping for pain. Substance Use Type Other:: Medical marijuana. 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 How many Children do You have: 3 Other Information That Helps Us Care for You: No Feels Safe at Home: Yes Safety Concerns: Feels Safe At This Time Diet: regular caffeine: No during the past year weight has: remained stable Assistive Devices: Bedside Commode and Wheelchair Review of Systems Review of Systems: All systems reviewed & are unremarkable except as noted in Subjective Physical Exam Physical Exam: Chronically ill appearing, tearful intermittently, fatigued bitemp wasting, alopecia/chemo related; perrla, EOMIs Neck supple, no stridor, edentulous, MM dry Resp effort WAL, no use of accessory muscles S1S2 Abd soft, NTP, BS+ Anterior to lateral left ribs/chest and back +TTP +generalized weakness, paraspinal tenderness AAOx3 skin dry no BLE edema Results & Data Vital Signs (Past 12 Hours) Vital Signs Temp Pulse Resp BP Pulse Ox O2 Del Method O2 Flow Rate 08/06/23 15:40 36.8 C 91 H 16 96/62 L 100 Room Air 08/06/23 08:00 36.8 C 89 16 103/70 95 Nasal Cannula 3 Laboratory Results 08/06/23 08/06/23 08/06/23 Range/Units 16:20 11:42 07:24 WBC 1.41 L (4.8-10.8) K/ul RBC 2.88 L (4.20-5.40) M/uL Hgb 8.3 L (12.0-16.0) g/dl Hct 24.6 L (37.0-47.0) % MCV 85.4 (80.0-100.0) fL MCH 28.8 (25.0-34.0) pg MCHC 33.7 (32.0-36.0) g/dL RDW Std Deviation 56.0 H (36.4-46.3) fL RDW Coeff of Joshua 19.1 H (11.5-14.5) % Plt Count 212 (130-400) K/uL MPV 9.4 (9.4-12.4) fL Immature Gran % (Auto) 2.1 % Neut % (Auto) 12.1 % Lymph % (Auto) 61.0 % [place] % (Auto) 23.4 % Eos % (Auto) 0.0 % Baso % (Auto) 1.4 % Neut # (Auto) 0.17 L* (1.40-6.50) K/uL Lymph # (Auto) 0.86 L (1.20-3.40) K/uL [place] # (Auto) 0.33 (0.11-0.59) K/uL Eos # (Auto) 0.00 (0.00-0.50) K/uL Baso # (Auto) 0.02 (0.00-0.20) K/uL Immature Gran # (Auto) 0.03 (0.01-0.20) K/uL Absolute Nucleated RBC 0.05 (0.00-0.12) K/uL Nucleated RBC % (auto) 3.5 % RBC Morphology Polychromasia 1+ Anisocytosis PT (9.0-12.0) Seconds INR (0.9-1.1) APTT (21-31) Seconds PTT Ratio VBG pH (7.36-7.41) VBG pCO2 (38-50) mmHg VBG pO2 mmHg VBG HCO3 mmol/L VBG O2 Saturation % VBG Base Excess mEq/L Sodium (136-145) mmol/L Potassium (3.5-5.1) mmol/L Chloride (98-107) mmol/L Carbon Dioxide (21-32) mmol/L Anion Gap (3-11) BUN (6-23) mg/dl Creatinine (0.6-1.2) mg/dl Est Cr Clr Drug Dosing Est GFR ( Amer) ml/min Est GFR (Non-Af Amer) ml/min BUN/Creatinine Ratio (10-20) Glucose (70-99(Fasting)) mg/dl POC Glucose 131 H 129 H (70-99) mg/dl Estimat Average Glucose mg/dl Hemoglobin A1c (4.5-5.6) % Lactate (0.4-2.0) mmol/L Calcium (8.6-10.3) mg/dl Phosphorus (2.5-4.9) mg/dl Magnesium (1.7-2.4) mg/dl Iron (35-150) mcg/dl TIBC (250-450) mcg/dl Unsaturated IBC (155-355) mcg/dl Transferrin % Sat (15-50) % Ferritin (8-388) ng/ml Total Bilirubin (0.2-1.0) mg/dl AST (13-39) U/L ALT (7-52) U/L Alkaline Phosphatase (34-104) U/L Troponin I High Sens (0-14) pg/ml Total Protein (6.0-8.3) gm/dl Albumin (3.4-5.0) gm/dl Globulin (2.5-4.0) gm/dl Albumin/Globulin Ratio (0.9-2) Lipase (11-82) U/L Vitamin B12 (180-914) pg/ml Folate (>5.38) ng/ml Procalcitonin (0-0.5) ng/ml TSH (0.300-4.500) uIu/ml Free T4 (0.61-1.60) ng/dl Urine Color Urine Appearance (Clear) Urine pH (4.5-7.5) Ur Specific [place] (1.000-1.030) Urine Protein (Negative) Urine Glucose (UA) (Negative) Urine Ketones (Negative) Urine Blood (Negative) Urine Nitrite (Negative) Urine Bilirubin (Negative) Urine Urobilinogen (Negative) Ur Leukocyte Esterase (Negative) Urine WBC (Auto) (0-5) /hpf Urine RBC (Auto) (0-2) /hpf U Hyaline Cast (Auto) (0-2) /lpf U Epithel Cells (Auto) (0-2) /hpf Urine Bacteria (Auto) (None Seen) Nasal Screen MRSA (PCR) (Negative) Adenovirus (PCR) (NotDetected) B. pertussis DNA (PCR) (NotDetected) B.parapertussis DNA PCR (NotDetected) C. pneumoniae DNA (PCR) (NotDetected) Coronavirus OC43 (PCR) (NotDetected) Coronavirus HKU1 (PCR) (NotDetected) Coronavirus 229E (PCR) (NotDetected) SARS-CoV-2 (PCR) (NotDetected) Coronavirus NL63 (PCR) (NotDetected) Human Metapneumovir PCR (NotDetected) Influenza Type A (PCR) (NotDetected) Influenza Type B (PCR) (NotDetected) M. pneumoniae (PCR) (NotDetected) Parainfluenza 1 (PCR) (NotDetected) Parainfluenza 2 (PCR) (NotDetected) Parainfluenza 3 (PCR) (NotDetected) Parainfluenza 4 (PCR) (NotDetected) RSV (PCR) (NotDetected) Entero/Rhino (PCR) (NotDetected) Crossmatch 08/06/23 08/05/23 08/05/23 Range/Units 07:22 20:20 16:34 WBC (4.8-10.8) K/ul RBC (4.20-5.40) M/uL Hgb (12.0-16.0) g/dl Hct (37.0-47.0) % MCV (80.0-100.0) fL MCH (25.0-34.0) pg MCHC (32.0-36.0) g/dL RDW Std Deviation (36.4-46.3) fL RDW Coeff of Joshua (11.5-14.5) % Plt Count (130-400) K/uL MPV (9.4-12.4) fL Immature Gran % (Auto) % Neut % (Auto) % Lymph % (Auto) % [place] % (Auto) % Eos % (Auto) % Baso % (Auto) % Neut # (Auto) (1.40-6.50) K/uL Lymph # (Auto) (1.20-3.40) K/uL [place] # (Auto) (0.11-0.59) K/uL Eos # (Auto) (0.00-0.50) K/uL Baso # (Auto) (0.00-0.20) K/uL Immature Gran # (Auto) (0.01-0.20) K/uL Absolute Nucleated RBC (0.00-0.12) K/uL Nucleated RBC % (auto) % RBC Morphology Polychromasia Anisocytosis PT (9.0-12.0) Seconds INR (0.9-1.1) APTT (21-31) Seconds PTT Ratio VBG pH (7.36-7.41) VBG pCO2 (38-50) mmHg VBG pO2 mmHg VBG HCO3 mmol/L VBG O2 Saturation % VBG Base Excess mEq/L Sodium (136-145) mmol/L Potassium (3.5-5.1) mmol/L Chloride (98-107) mmol/L Carbon Dioxide (21-32) mmol/L Anion Gap (3-11) BUN (6-23) mg/dl Creatinine (0.6-1.2) mg/dl Est Cr Clr Drug Dosing Est GFR ( Amer) ml/min Est GFR (Non-Af Amer) ml/min BUN/Creatinine Ratio (10-20) Glucose (70-99(Fasting)) mg/dl POC Glucose 115 H 197 H 131 H (70-99) mg/dl Estimat Average Glucose mg/dl Hemoglobin A1c (4.5-5.6) % Lactate (0.4-2.0) mmol/L Calcium (8.6-10.3) mg/dl Phosphorus (2.5-4.9) mg/dl Magnesium (1.7-2.4) mg/dl Iron (35-150) mcg/dl TIBC (250-450) mcg/dl Unsaturated IBC (155-355) mcg/dl Transferrin % Sat (15-50) % Ferritin (8-388) ng/ml Total Bilirubin (0.2-1.0) mg/dl AST (13-39) U/L ALT (7-52) U/L Alkaline Phosphatase (34-104) U/L Troponin I High Sens (0-14) pg/ml Total Protein (6.0-8.3) gm/dl Albumin (3.4-5.0) gm/dl Globulin (2.5-4.0) gm/dl Albumin/Globulin Ratio (0.9-2) Lipase (11-82) U/L Vitamin B12 (180-914) pg/ml Folate (>5.38) ng/ml Procalcitonin (0-0.5) ng/ml TSH (0.300-4.500) uIu/ml Free T4 (0.61-1.60) ng/dl Urine Color Urine Appearance (Clear) Urine pH (4.5-7.5) Ur Specific [place] (1.000-1.030) Urine Protein (Negative) Urine Glucose (UA) (Negative) Urine Ketones (Negative) Urine Blood (Negative) Urine Nitrite (Negative) Urine Bilirubin (Negative) Urine Urobilinogen (Negative) Ur Leukocyte Esterase (Negative) Urine WBC (Auto) (0-5) /hpf Urine RBC (Auto) (0-2) /hpf U Hyaline Cast (Auto) (0-2) /lpf U Epithel Cells (Auto) (0-2) /hpf Urine Bacteria (Auto) (None Seen) Nasal Screen MRSA (PCR) (Negative) Adenovirus (PCR) (NotDetected) B. pertussis DNA (PCR) (NotDetected) B.parapertussis DNA PCR (NotDetected) C. pneumoniae DNA (PCR) (NotDetected) Coronavirus OC43 (PCR) (NotDetected) Coronavirus HKU1 (PCR) (NotDetected) Coronavirus 229E (PCR) (NotDetected) SARS-CoV-2 (PCR) (NotDetected) Coronavirus NL63 (PCR) (NotDetected) Human Metapneumovir PCR (NotDetected) Influenza Type A (PCR) (NotDetected) Influenza Type B (PCR) (NotDetected) M. pneumoniae (PCR) (NotDetected) Parainfluenza 1 (PCR) (NotDetected) Parainfluenza 2 (PCR) (NotDetected) Parainfluenza 3 (PCR) (NotDetected) Parainfluenza 4 (PCR) (NotDetected) RSV (PCR) (NotDetected) Entero/Rhino (PCR) (NotDetected) Crossmatch 08/05/23 08/05/23 08/04/23 Range/Units 11:30 07:43 20:21 WBC (4.8-10.8) K/ul RBC (4.20-5.40) M/uL Hgb (12.0-16.0) g/dl Hct (37.0-47.0) % MCV (80.0-100.0) fL MCH (25.0-34.0) pg MCHC (32.0-36.0) g/dL RDW Std Deviation (36.4-46.3) fL RDW Coeff of Joshua (11.5-14.5) % Plt Count (130-400) K/uL MPV (9.4-12.4) fL Immature Gran % (Auto) % Neut % (Auto) % Lymph % (Auto) % [place] % (Auto) % Eos % (Auto) % Baso % (Auto) % Neut # (Auto) (1.40-6.50) K/uL Lymph # (Auto) (1.20-3.40) K/uL [place] # (Auto) (0.11-0.59) K/uL Eos # (Auto) (0.00-0.50) K/uL Baso # (Auto) (0.00-0.20) K/uL Immature Gran # (Auto) (0.01-0.20) K/uL Absolute Nucleated RBC (0.00-0.12) K/uL Nucleated RBC % (auto) % RBC Morphology Polychromasia Anisocytosis PT (9.0-12.0) Seconds INR (0.9-1.1) APTT (21-31) Seconds PTT Ratio VBG pH (7.36-7.41) VBG pCO2 (38-50) mmHg VBG pO2 mmHg VBG HCO3 mmol/L VBG O2 Saturation % VBG Base Excess mEq/L Sodium (136-145) mmol/L Potassium (3.5-5.1) mmol/L Chloride (98-107) mmol/L Carbon Dioxide (21-32) mmol/L Anion Gap (3-11) BUN (6-23) mg/dl Creatinine (0.6-1.2) mg/dl Est Cr Clr Drug Dosing Est GFR ( Amer) ml/min Est GFR (Non-Af Amer) ml/min BUN/Creatinine Ratio (10-20) Glucose (70-99(Fasting)) mg/dl POC Glucose 135 H 173 H 154 H (70-99) mg/dl Estimat Average Glucose mg/dl Hemoglobin A1c (4.5-5.6) % Lactate (0.4-2.0) mmol/L Calcium (8.6-10.3) mg/dl Phosphorus (2.5-4.9) mg/dl Magnesium (1.7-2.4) mg/dl Iron (35-150) mcg/dl TIBC (250-450) mcg/dl Unsaturated IBC (155-355) mcg/dl Transferrin % Sat (15-50) % Ferritin (8-388) ng/ml Total Bilirubin (0.2-1.0) mg/dl AST (13-39) U/L ALT (7-52) U/L Alkaline Phosphatase (34-104) U/L Troponin I High Sens (0-14) pg/ml Total Protein (6.0-8.3) gm/dl Albumin (3.4-5.0) gm/dl Globulin (2.5-4.0) gm/dl Albumin/Globulin Ratio (0.9-2) Lipase (11-82) U/L Vitamin B12 (180-914) pg/ml Folate (>5.38) ng/ml Procalcitonin (0-0.5) ng/ml TSH (0.300-4.500) uIu/ml Free T4 (0.61-1.60) ng/dl Urine Color Urine Appearance (Clear) Urine pH (4.5-7.5) Ur Specific [place] (1.000-1.030) Urine Protein (Negative) Urine Glucose (UA) (Negative) Urine Ketones (Negative) Urine Blood (Negative) Urine Nitrite (Negative) Urine Bilirubin (Negative) Urine Urobilinogen (Negative) Ur Leukocyte Esterase (Negative) Urine WBC (Auto) (0-5) /hpf Urine RBC (Auto) (0-2) /hpf U Hyaline Cast (Auto) (0-2) /lpf U Epithel Cells (Auto) (0-2) /hpf Urine Bacteria (Auto) (None Seen) Nasal Screen MRSA (PCR) (Negative) Adenovirus (PCR) (NotDetected) B. pertussis DNA (PCR) (NotDetected) B.parapertussis DNA PCR (NotDetected) C. pneumoniae DNA (PCR) (NotDetected) Coronavirus OC43 (PCR) (NotDetected) Coronavirus HKU1 (PCR) (NotDetected) Coronavirus 229E (PCR) (NotDetected) SARS-CoV-2 (PCR) (NotDetected) Coronavirus NL63 (PCR) (NotDetected) Human Metapneumovir PCR (NotDetected) Influenza Type A (PCR) (NotDetected) Influenza Type B (PCR) (NotDetected) M. pneumoniae (PCR) (NotDetected) Parainfluenza 1 (PCR) (NotDetected) Parainfluenza 2 (PCR) (NotDetected) Parainfluenza 3 (PCR) (NotDetected) Parainfluenza 4 (PCR) (NotDetected) RSV (PCR) (NotDetected) Entero/Rhino (PCR) (NotDetected) Crossmatch 08/04/23 08/04/23 08/04/23 Range/Units 16:38 16:00 11:34 WBC (4.8-10.8) K/ul RBC (4.20-5.40) M/uL Hgb (12.0-16.0) g/dl Hct (37.0-47.0) % MCV (80.0-100.0) fL MCH (25.0-34.0) pg MCHC (32.0-36.0) g/dL RDW Std Deviation (36.4-46.3) fL RDW Coeff of Joshua (11.5-14.5) % Plt Count (130-400) K/uL MPV (9.4-12.4) fL Immature Gran % (Auto) % Neut % (Auto) % Lymph % (Auto) % [place] % (Auto) % Eos % (Auto) % Baso % (Auto) % Neut # (Auto) (1.40-6.50) K/uL Lymph # (Auto) (1.20-3.40) K/uL [place] # (Auto) (0.11-0.59) K/uL Eos # (Auto) (0.00-0.50) K/uL Baso # (Auto) (0.00-0.20) K/uL Immature Gran # (Auto) (0.01-0.20) K/uL Absolute Nucleated RBC (0.00-0.12) K/uL Nucleated RBC % (auto) % RBC Morphology Polychromasia Anisocytosis PT (9.0-12.0) Seconds INR (0.9-1.1) APTT (21-31) Seconds PTT Ratio VBG pH (7.36-7.41) VBG pCO2 (38-50) mmHg VBG pO2 mmHg VBG HCO3 mmol/L VBG O2 Saturation % VBG Base Excess mEq/L Sodium (136-145) mmol/L Potassium (3.5-5.1) mmol/L Chloride (98-107) mmol/L Carbon Dioxide (21-32) mmol/L Anion Gap (3-11) BUN (6-23) mg/dl Creatinine (0.6-1.2) mg/dl Est Cr Clr Drug Dosing Est GFR ( Amer) ml/min Est GFR (Non-Af Amer) ml/min BUN/Creatinine Ratio (10-20) Glucose (70-99(Fasting)) mg/dl POC Glucose 183 H 181 H (70-99) mg/dl Estimat Average Glucose mg/dl Hemoglobin A1c (4.5-5.6) % Lactate (0.4-2.0) mmol/L Calcium (8.6-10.3) mg/dl Phosphorus (2.5-4.9) mg/dl Magnesium (1.7-2.4) mg/dl Iron (35-150) mcg/dl TIBC (250-450) mcg/dl Unsaturated IBC (155-355) mcg/dl Transferrin % Sat (15-50) % Ferritin (8-388) ng/ml Total Bilirubin (0.2-1.0) mg/dl AST (13-39) U/L ALT (7-52) U/L Alkaline Phosphatase (34-104) U/L Troponin I High Sens (0-14) pg/ml Total Protein (6.0-8.3) gm/dl Albumin (3.4-5.0) gm/dl Globulin (2.5-4.0) gm/dl Albumin/Globulin Ratio (0.9-2) Lipase (11-82) U/L Vitamin B12 (180-914) pg/ml Folate (>5.38) ng/ml Procalcitonin (0-0.5) ng/ml TSH (0.300-4.500) uIu/ml Free T4 (0.61-1.60) ng/dl Urine Color Yellow Urine Appearance Clear (Clear) Urine pH 5.5 (4.5-7.5) Ur Specific [place] 1.019 (1.000-1.030) Urine Protein 1+ H (Negative) Urine Glucose (UA) Negative (Negative) Urine Ketones Trace H (Negative) Urine Blood 3+ H (Negative) Urine Nitrite Negative (Negative) Urine Bilirubin Negative (Negative) Urine Urobilinogen Negative (Negative) Ur Leukocyte Esterase Trace H (Negative) Urine WBC (Auto) 0-5 (0-5) /hpf Urine RBC (Auto) >20 H (0-2) /hpf U Hyaline Cast (Auto) 0-2 (0-2) /lpf U Epithel Cells (Auto) 0-2 (0-2) /hpf Urine Bacteria (Auto) None Seen (None Seen) Nasal Screen MRSA (PCR) (Negative) Adenovirus (PCR) (NotDetected) B. pertussis DNA (PCR) (NotDetected) B.parapertussis DNA PCR (NotDetected) C. pneumoniae DNA (PCR) (NotDetected) Coronavirus OC43 (PCR) (NotDetected) Coronavirus HKU1 (PCR) (NotDetected) Coronavirus 229E (PCR) (NotDetected) SARS-CoV-2 (PCR) (NotDetected) Coronavirus NL63 (PCR) (NotDetected) Human Metapneumovir PCR (NotDetected) Influenza Type A (PCR) (NotDetected) Influenza Type B (PCR) (NotDetected) M. pneumoniae (PCR) (NotDetected) Parainfluenza 1 (PCR) (NotDetected) Parainfluenza 2 (PCR) (NotDetected) Parainfluenza 3 (PCR) (NotDetected) Parainfluenza 4 (PCR) (NotDetected) RSV (PCR) (NotDetected) Entero/Rhino (PCR) (NotDetected) Crossmatch 08/04/23 08/04/23 08/03/23 Range/Units 08:04 07:51 20:49 WBC 1.38 L (4.8-10.8) K/ul RBC 2.71 L (4.20-5.40) M/uL Hgb 7.7 L (12.0-16.0) g/dl Hct 22.4 L (37.0-47.0) % MCV 82.7 (80.0-100.0) fL MCH 28.4 (25.0-34.0) pg MCHC 34.4 (32.0-36.0) g/dL RDW Std Deviation 53.1 H (36.4-46.3) fL RDW Coeff of Joshua 18.0 H (11.5-14.5) % Plt Count 164 (130-400) K/uL MPV 9.2 L (9.4-12.4) fL Immature Gran % (Auto) 1.4 % Neut % (Auto) 28.3 % Lymph % (Auto) 55.1 % [place] % (Auto) 10.9 % Eos % (Auto) 0.0 % Baso % (Auto) 4.3 % Neut # (Auto) 0.39 L* (1.40-6.50) K/uL Lymph # (Auto) 0.76 L (1.20-3.40) K/uL [place] # (Auto) 0.15 (0.11-0.59) K/uL Eos # (Auto) 0.00 (0.00-0.50) K/uL Baso # (Auto) 0.06 (0.00-0.20) K/uL Immature Gran # (Auto) 0.02 (0.01-0.20) K/uL Absolute Nucleated RBC 0.03 (0.00-0.12) K/uL Nucleated RBC % (auto) 2.2 % RBC Morphology Polychromasia 1+ Anisocytosis Present PT (9.0-12.0) Seconds INR (0.9-1.1) APTT (21-31) Seconds PTT Ratio VBG pH (7.36-7.41) VBG pCO2 (38-50) mmHg VBG pO2 mmHg VBG HCO3 mmol/L VBG O2 Saturation % VBG Base Excess mEq/L Sodium 134 L (136-145) mmol/L Potassium 3.9 (3.5-5.1) mmol/L Chloride 106 (98-107) mmol/L Carbon Dioxide 21 (21-32) mmol/L Anion Gap 7 (3-11) BUN 15 (6-23) mg/dl Creatinine 0.86 (0.6-1.2) mg/dl Est Cr Clr Drug Dosing 99.6 Est GFR ( Amer) 93.9 ml/min Est GFR (Non-Af Amer) 81.0 ml/min BUN/Creatinine Ratio 17.4 (10-20) Glucose 147 H (70-99(Fasting)) mg/dl POC Glucose 160 H 196 H (70-99) mg/dl Estimat Average Glucose 169 mg/dl Hemoglobin A1c 7.5 H (4.5-5.6) % Lactate (0.4-2.0) mmol/L Calcium 8.3 L (8.6-10.3) mg/dl Phosphorus 3.0 (2.5-4.9) mg/dl Magnesium 1.5 L (1.7-2.4) mg/dl Iron 69 (35-150) mcg/dl TIBC 182 L (250-450) mcg/dl Unsaturated IBC 113 L (155-355) mcg/dl Transferrin % Sat 38 (15-50) % Ferritin 1368.3 H (8-388) ng/ml Total Bilirubin 0.6 (0.2-1.0) mg/dl AST 17 (13-39) U/L ALT 14 (7-52) U/L Alkaline Phosphatase 135 H (34-104) U/L Troponin I High Sens (0-14) pg/ml Total Protein 6.0 (6.0-8.3) gm/dl Albumin 3.2 L (3.4-5.0) gm/dl Globulin 2.8 (2.5-4.0) gm/dl Albumin/Globulin Ratio 1.1 (0.9-2) Lipase (11-82) U/L Vitamin B12 1192 H (180-914) pg/ml Folate 4.07 L (>5.38) ng/ml Procalcitonin (0-0.5) ng/ml TSH (0.300-4.500) uIu/ml Free T4 (0.61-1.60) ng/dl Urine Color Urine Appearance (Clear) Urine pH (4.5-7.5) Ur Specific [place] (1.000-1.030) Urine Protein (Negative) Urine Glucose (UA) (Negative) Urine Ketones (Negative) Urine Blood (Negative) Urine Nitrite (Negative) Urine Bilirubin (Negative) Urine Urobilinogen (Negative) Ur Leukocyte Esterase (Negative) Urine WBC (Auto) (0-5) /hpf Urine RBC (Auto) (0-2) /hpf U Hyaline Cast (Auto) (0-2) /lpf U Epithel Cells (Auto) (0-2) /hpf Urine Bacteria (Auto) (None Seen) Nasal Screen MRSA (PCR) (Negative) Adenovirus (PCR) (NotDetected) B. pertussis DNA (PCR) (NotDetected) B.parapertussis DNA PCR (NotDetected) C. pneumoniae DNA (PCR) (NotDetected) Coronavirus OC43 (PCR) (NotDetected) Coronavirus HKU1 (PCR) (NotDetected) Coronavirus 229E (PCR) (NotDetected) SARS-CoV-2 (PCR) (NotDetected) Coronavirus NL63 (PCR) (NotDetected) Human Metapneumovir PCR (NotDetected) Influenza Type A (PCR) (NotDetected) Influenza Type B (PCR) (NotDetected) M. pneumoniae (PCR) (NotDetected) Parainfluenza 1 (PCR) (NotDetected) Parainfluenza 2 (PCR) (NotDetected) Parainfluenza 3 (PCR) (NotDetected) Parainfluenza 4 (PCR) (NotDetected) RSV (PCR) (NotDetected) Entero/Rhino (PCR) (NotDetected) Crossmatch 08/03/23 08/03/23 08/03/23 Range/Units 17:55 16:43 16:39 WBC (4.8-10.8) K/ul RBC (4.20-5.40) M/uL Hgb 8.4 L (12.0-16.0) g/dl Hct 24.0 L (37.0-47.0) % MCV (80.0-100.0) fL MCH (25.0-34.0) pg MCHC (32.0-36.0) g/dL RDW Std Deviation (36.4-46.3) fL RDW Coeff of Joshua (11.5-14.5) % Plt Count (130-400) K/uL MPV (9.4-12.4) fL Immature Gran % (Auto) % Neut % (Auto) % Lymph % (Auto) % [place] % (Auto) % Eos % (Auto) % Baso % (Auto) % Neut # (Auto) (1.40-6.50) K/uL Lymph # (Auto) (1.20-3.40) K/uL [place] # (Auto) (0.11-0.59) K/uL Eos # (Auto) (0.00-0.50) K/uL Baso # (Auto) (0.00-0.20) K/uL Immature Gran # (Auto) (0.01-0.20) K/uL Absolute Nucleated RBC (0.00-0.12) K/uL Nucleated RBC % (auto) % RBC Morphology Polychromasia Anisocytosis PT (9.0-12.0) Seconds INR (0.9-1.1) APTT (21-31) Seconds PTT Ratio VBG pH (7.36-7.41) VBG pCO2 (38-50) mmHg VBG pO2 mmHg VBG HCO3 mmol/L VBG O2 Saturation % VBG Base Excess mEq/L Sodium (136-145) mmol/L Potassium (3.5-5.1) mmol/L Chloride (98-107) mmol/L Carbon Dioxide (21-32) mmol/L Anion Gap (3-11) BUN (6-23) mg/dl Creatinine (0.6-1.2) mg/dl Est Cr Clr Drug Dosing Est GFR ( Amer) ml/min Est GFR (Non-Af Amer) ml/min BUN/Creatinine Ratio (10-20) Glucose (70-99(Fasting)) mg/dl POC Glucose 85 (70-99) mg/dl Estimat Average Glucose mg/dl Hemoglobin A1c (4.5-5.6) % Lactate (0.4-2.0) mmol/L Calcium (8.6-10.3) mg/dl Phosphorus (2.5-4.9) mg/dl Magnesium (1.7-2.4) mg/dl Iron (35-150) mcg/dl TIBC (250-450) mcg/dl Unsaturated IBC (155-355) mcg/dl Transferrin % Sat (15-50) % Ferritin (8-388) ng/ml Total Bilirubin (0.2-1.0) mg/dl AST (13-39) U/L ALT (7-52) U/L Alkaline Phosphatase (34-104) U/L Troponin I High Sens (0-14) pg/ml Total Protein (6.0-8.3) gm/dl Albumin (3.4-5.0) gm/dl Globulin (2.5-4.0) gm/dl Albumin/Globulin Ratio (0.9-2) Lipase (11-82) U/L Vitamin B12 (180-914) pg/ml Folate (>5.38) ng/ml Procalcitonin (0-0.5) ng/ml TSH (0.300-4.500) uIu/ml Free T4 (0.61-1.60) ng/dl Urine Color Urine Appearance (Clear) Urine pH (4.5-7.5) Ur Specific [place] (1.000-1.030) Urine Protein (Negative) Urine Glucose (UA) (Negative) Urine Ketones (Negative) Urine Blood (Negative) Urine Nitrite (Negative) Urine Bilirubin (Negative) Urine Urobilinogen (Negative) Ur Leukocyte Esterase (Negative) Urine WBC (Auto) (0-5) /hpf Urine RBC (Auto) (0-2) /hpf U Hyaline Cast (Auto) (0-2) /lpf U Epithel Cells (Auto) (0-2) /hpf Urine Bacteria (Auto) (None Seen) Nasal Screen MRSA (PCR) Negative (Negative) Adenovirus (PCR) (NotDetected) B. pertussis DNA (PCR) (NotDetected) B.parapertussis DNA PCR (NotDetected) C. pneumoniae DNA (PCR) (NotDetected) Coronavirus OC43 (PCR) (NotDetected) Coronavirus HKU1 (PCR) (NotDetected) Coronavirus 229E (PCR) (NotDetected) SARS-CoV-2 (PCR) (NotDetected) Coronavirus NL63 (PCR) (NotDetected) Human Metapneumovir PCR (NotDetected) Influenza Type A (PCR) (NotDetected) Influenza Type B (PCR) (NotDetected) M. pneumoniae (PCR) (NotDetected) Parainfluenza 1 (PCR) (NotDetected) Parainfluenza 2 (PCR) (NotDetected) Parainfluenza 3 (PCR) (NotDetected) Parainfluenza 4 (PCR) (NotDetected) RSV (PCR) (NotDetected) Entero/Rhino (PCR) (NotDetected) Crossmatch 08/03/23 08/03/23 08/03/23 Range/Units 11:32 09:13 07:39 WBC (4.8-10.8) K/ul RBC (4.20-5.40) M/uL Hgb 6.9 L* (12.0-16.0) g/dl Hct 20.4 L* (37.0-47.0) % MCV (80.0-100.0) fL MCH (25.0-34.0) pg MCHC (32.0-36.0) g/dL RDW Std Deviation (36.4-46.3) fL RDW Coeff of Joshua (11.5-14.5) % Plt Count (130-400) K/uL MPV (9.4-12.4) fL Immature Gran % (Auto) % Neut % (Auto) % Lymph % (Auto) % [place] % (Auto) % Eos % (Auto) % Baso % (Auto) % Neut # (Auto) (1.40-6.50) K/uL Lymph # (Auto) (1.20-3.40) K/uL [place] # (Auto) (0.11-0.59) K/uL Eos # (Auto) (0.00-0.50) K/uL Baso # (Auto) (0.00-0.20) K/uL Immature Gran # (Auto) (0.01-0.20) K/uL Absolute Nucleated RBC (0.00-0.12) K/uL Nucleated RBC % (auto) % RBC Morphology Polychromasia Anisocytosis PT (9.0-12.0) Seconds INR (0.9-1.1) APTT (21-31) Seconds PTT Ratio VBG pH (7.36-7.41) VBG pCO2 (38-50) mmHg VBG pO2 mmHg VBG HCO3 mmol/L VBG O2 Saturation % VBG Base Excess mEq/L Sodium (136-145) mmol/L Potassium (3.5-5.1) mmol/L Chloride (98-107) mmol/L Carbon Dioxide (21-32) mmol/L Anion Gap (3-11) BUN (6-23) mg/dl Creatinine (0.6-1.2) mg/dl Est Cr Clr Drug Dosing Est GFR ( Amer) ml/min Est GFR (Non-Af Amer) ml/min BUN/Creatinine Ratio (10-20) Glucose (70-99(Fasting)) mg/dl POC Glucose 227 H 196 H (70-99) mg/dl Estimat Average Glucose mg/dl Hemoglobin A1c (4.5-5.6) % Lactate (0.4-2.0) mmol/L Calcium (8.6-10.3) mg/dl Phosphorus (2.5-4.9) mg/dl Magnesium (1.7-2.4) mg/dl Iron (35-150) mcg/dl TIBC (250-450) mcg/dl Unsaturated IBC (155-355) mcg/dl Transferrin % Sat (15-50) % Ferritin (8-388) ng/ml Total Bilirubin (0.2-1.0) mg/dl AST (13-39) U/L ALT (7-52) U/L Alkaline Phosphatase (34-104) U/L Troponin I High Sens (0-14) pg/ml Total Protein (6.0-8.3) gm/dl Albumin (3.4-5.0) gm/dl Globulin (2.5-4.0) gm/dl Albumin/Globulin Ratio (0.9-2) Lipase (11-82) U/L Vitamin B12 (180-914) pg/ml Folate (>5.38) ng/ml Procalcitonin (0-0.5) ng/ml TSH (0.300-4.500) uIu/ml Free T4 (0.61-1.60) ng/dl Urine Color Urine Appearance (Clear) Urine pH (4.5-7.5) Ur Specific [place] (1.000-1.030) Urine Protein (Negative) Urine Glucose (UA) (Negative) Urine Ketones (Negative) Urine Blood (Negative) Urine Nitrite (Negative) Urine Bilirubin (Negative) Urine Urobilinogen (Negative) Ur Leukocyte Esterase (Negative) Urine WBC (Auto) (0-5) /hpf Urine RBC (Auto) (0-2) /hpf U Hyaline Cast (Auto) (0-2) /lpf U Epithel Cells (Auto) (0-2) /hpf Urine Bacteria (Auto) (None Seen) Nasal Screen MRSA (PCR) (Negative) Adenovirus (PCR) (NotDetected) B. pertussis DNA (PCR) (NotDetected) B.parapertussis DNA PCR (NotDetected) C. pneumoniae DNA (PCR) (NotDetected) Coronavirus OC43 (PCR) (NotDetected) Coronavirus HKU1 (PCR) (NotDetected) Coronavirus 229E (PCR) (NotDetected) SARS-CoV-2 (PCR) (NotDetected) Coronavirus NL63 (PCR) (NotDetected) Human Metapneumovir PCR (NotDetected) Influenza Type A (PCR) (NotDetected) Influenza Type B (PCR) (NotDetected) M. pneumoniae (PCR) (NotDetected) Parainfluenza 1 (PCR) (NotDetected) Parainfluenza 2 (PCR) (NotDetected) Parainfluenza 3 (PCR) (NotDetected) Parainfluenza 4 (PCR) (NotDetected) RSV (PCR) (NotDetected) Entero/Rhino (PCR) (NotDetected) Crossmatch 08/03/23 08/02/23 08/02/23 Range/Units 07:28 21:16 20:51 WBC 1.60 L (4.8-10.8) K/ul RBC 2.32 L (4.20-5.40) M/uL Hgb 6.7 L* (12.0-16.0) g/dl Hct 19.4 L* (37.0-47.0) % MCV 83.6 (80.0-100.0) fL MCH 28.9 (25.0-34.0) pg MCHC 34.5 (32.0-36.0) g/dL RDW Std Deviation 54.8 H (36.4-46.3) fL RDW Coeff of Joshua 18.0 H (11.5-14.5) % Plt Count 147 (130-400) K/uL MPV 8.9 L (9.4-12.4) fL Immature Gran % (Auto) % Neut % (Auto) % Lymph % (Auto) % [place] % (Auto) % Eos % (Auto) % Baso % (Auto) % Neut # (Auto) (1.40-6.50) K/uL Lymph # (Auto) (1.20-3.40) K/uL [place] # (Auto) (0.11-0.59) K/uL Eos # (Auto) (0.00-0.50) K/uL Baso # (Auto) (0.00-0.20) K/uL Immature Gran # (Auto) (0.01-0.20) K/uL Absolute Nucleated RBC (0.00-0.12) K/uL Nucleated RBC % (auto) % RBC Morphology Polychromasia Anisocytosis PT (9.0-12.0) Seconds INR (0.9-1.1) APTT (21-31) Seconds PTT Ratio VBG pH (7.36-7.41) VBG pCO2 (38-50) mmHg VBG pO2 mmHg VBG HCO3 mmol/L VBG O2 Saturation % VBG Base Excess mEq/L Sodium 135 L (136-145) mmol/L Potassium 3.8 (3.5-5.1) mmol/L Chloride 105 (98-107) mmol/L Carbon Dioxide 24 (21-32) mmol/L Anion Gap 6 (3-11) BUN 19 (6-23) mg/dl Creatinine 0.77 (0.6-1.2) mg/dl Est Cr Clr Drug Dosing 111.3 Est GFR ( Amer) 107.3 ml/min Est GFR (Non-Af Amer) 92.6 ml/min BUN/Creatinine Ratio 24.7 H (10-20) Glucose 184 H (70-99(Fasting)) mg/dl POC Glucose 224 H (70-99) mg/dl Estimat Average Glucose mg/dl Hemoglobin A1c (4.5-5.6) % Lactate 1.5 (0.4-2.0) mmol/L Calcium 8.4 L (8.6-10.3) mg/dl Phosphorus (2.5-4.9) mg/dl Magnesium (1.7-2.4) mg/dl Iron (35-150) mcg/dl TIBC (250-450) mcg/dl Unsaturated IBC (155-355) mcg/dl Transferrin % Sat (15-50) % Ferritin (8-388) ng/ml Total Bilirubin (0.2-1.0) mg/dl AST (13-39) U/L ALT (7-52) U/L Alkaline Phosphatase (34-104) U/L Troponin I High Sens (0-14) pg/ml Total Protein (6.0-8.3) gm/dl Albumin (3.4-5.0) gm/dl Globulin (2.5-4.0) gm/dl Albumin/Globulin Ratio (0.9-2) Lipase (11-82) U/L Vitamin B12 (180-914) pg/ml Folate (>5.38) ng/ml Procalcitonin (0-0.5) ng/ml TSH (0.300-4.500) uIu/ml Free T4 (0.61-1.60) ng/dl Urine Color Urine Appearance (Clear) Urine pH (4.5-7.5) Ur Specific [place] (1.000-1.030) Urine Protein (Negative) Urine Glucose (UA) (Negative) Urine Ketones (Negative) Urine Blood (Negative) Urine Nitrite (Negative) Urine Bilirubin (Negative) Urine Urobilinogen (Negative) Ur Leukocyte Esterase (Negative) Urine WBC (Auto) (0-5) /hpf Urine RBC (Auto) (0-2) /hpf U Hyaline Cast (Auto) (0-2) /lpf U Epithel Cells (Auto) (0-2) /hpf Urine Bacteria (Auto) (None Seen) Nasal Screen MRSA (PCR) (Negative) Adenovirus (PCR) (NotDetected) B. pertussis DNA (PCR) (NotDetected) B.parapertussis DNA PCR (NotDetected) C. pneumoniae DNA (PCR) (NotDetected) Coronavirus OC43 (PCR) (NotDetected) Coronavirus HKU1 (PCR) (NotDetected) Coronavirus 229E (PCR) (NotDetected) SARS-CoV-2 (PCR) (NotDetected) Coronavirus NL63 (PCR) (NotDetected) Human Metapneumovir PCR (NotDetected) Influenza Type A (PCR) (NotDetected) Influenza Type B (PCR) (NotDetected) M. pneumoniae (PCR) (NotDetected) Parainfluenza 1 (PCR) (NotDetected) Parainfluenza 2 (PCR) (NotDetected) Parainfluenza 3 (PCR) (NotDetected) Parainfluenza 4 (PCR) (NotDetected) RSV (PCR) (NotDetected) Entero/Rhino (PCR) (NotDetected) Crossmatch 08/02/23 08/02/23 08/02/23 Range/Units 17:29 17:27 17:18 WBC 2.84 L (4.8-10.8) K/ul RBC 2.83 L (4.20-5.40) M/uL Hgb 8.1 L (12.0-16.0) g/dl Hct 23.3 L (37.0-47.0) % MCV 82.3 (80.0-100.0) fL MCH 28.6 (25.0-34.0) pg MCHC 34.8 (32.0-36.0) g/dL RDW Std Deviation 52.1 H (36.4-46.3) fL RDW Coeff of Joshua 17.6 H (11.5-14.5) % Plt Count 174 (130-400) K/uL MPV 9.4 (9.4-12.4) fL Immature Gran % (Auto) 5.6 % Neut % (Auto) 51.0 % Lymph % (Auto) 35.6 % [place] % (Auto) 4.6 % Eos % (Auto) 0.0 % Baso % (Auto) 3.2 % Neut # (Auto) 1.45 (1.40-6.50) K/uL Lymph # (Auto) 1.01 L (1.20-3.40) K/uL [place] # (Auto) 0.13 (0.11-0.59) K/uL Eos # (Auto) 0.00 (0.00-0.50) K/uL Baso # (Auto) 0.09 (0.00-0.20) K/uL Immature Gran # (Auto) 0.16 (0.01-0.20) K/uL Absolute Nucleated RBC (0.00-0.12) K/uL Nucleated RBC % (auto) % RBC Morphology Unremarkable Polychromasia Anisocytosis PT 11.5 (9.0-12.0) Seconds INR 1.1 (0.9-1.1) APTT 25 (21-31) Seconds PTT Ratio 0.9 VBG pH 7.44 H (7.36-7.41) VBG pCO2 32 L (38-50) mmHg VBG pO2 31 mmHg VBG HCO3 22 mmol/L VBG O2 Saturation < 60.0 % VBG Base Excess -1.6 mEq/L Sodium 134 L (136-145) mmol/L Potassium 3.9 (3.5-5.1) mmol/L Chloride 102 (98-107) mmol/L Carbon Dioxide 21 (21-32) mmol/L Anion Gap 11 (3-11) BUN 25 H (6-23) mg/dl Creatinine 0.92 (0.6-1.2) mg/dl Est Cr Clr Drug Dosing Not Reportable Est GFR ( Amer) 86.5 ml/min Est GFR (Non-Af Amer) 74.7 ml/min BUN/Creatinine Ratio 27.2 H (10-20) Glucose 208 H (70-99(Fasting)) mg/dl POC Glucose 230 H (70-99) mg/dl Estimat Average Glucose mg/dl Hemoglobin A1c (4.5-5.6) % Lactate 2.8 H* (0.4-2.0) mmol/L Calcium 8.9 (8.6-10.3) mg/dl Phosphorus (2.5-4.9) mg/dl Magnesium 1.8 (1.7-2.4) mg/dl Iron (35-150) mcg/dl TIBC (250-450) mcg/dl Unsaturated IBC (155-355) mcg/dl Transferrin % Sat (15-50) % Ferritin (8-388) ng/ml Total Bilirubin 0.9 (0.2-1.0) mg/dl AST 19 (13-39) U/L ALT 16 (7-52) U/L Alkaline Phosphatase 155 H (34-104) U/L Troponin I High Sens 4.9 (0-14) pg/ml Total Protein 7.0 (6.0-8.3) gm/dl Albumin 3.9 (3.4-5.0) gm/dl Globulin 3.1 (2.5-4.0) gm/dl Albumin/Globulin Ratio 1.3 (0.9-2) Lipase 11 (11-82) U/L Vitamin B12 (180-914) pg/ml Folate (>5.38) ng/ml Procalcitonin 0.21 (0-0.5) ng/ml TSH 6.973 H (0.300-4.500) uIu/ml Free T4 0.76 (0.61-1.60) ng/dl Urine Color Urine Appearance (Clear) Urine pH (4.5-7.5) Ur Specific [place] (1.000-1.030) Urine Protein (Negative) Urine Glucose (UA) (Negative) Urine Ketones (Negative) Urine Blood (Negative) Urine Nitrite (Negative) Urine Bilirubin (Negative) Urine Urobilinogen (Negative) Ur Leukocyte Esterase (Negative) Urine WBC (Auto) (0-5) /hpf Urine RBC (Auto) (0-2) /hpf U Hyaline Cast (Auto) (0-2) /lpf U Epithel Cells (Auto) (0-2) /hpf Urine Bacteria (Auto) (None Seen) Nasal Screen MRSA (PCR) (Negative) Adenovirus (PCR) Not Detected (NotDetected) B. pertussis DNA (PCR) Not Detected (NotDetected) B.parapertussis DNA PCR Not Detected (NotDetected) C. pneumoniae DNA (PCR) Not Detected (NotDetected) Coronavirus OC43 (PCR) Not Detected (NotDetected) Coronavirus HKU1 (PCR) Not Detected (NotDetected) Coronavirus 229E (PCR) Not Detected (NotDetected) SARS-CoV-2 (PCR) Not Detected (NotDetected) Coronavirus NL63 (PCR) Not Detected (NotDetected) Human Metapneumovir PCR Not Detected (NotDetected) Influenza Type A (PCR) Not Detected (NotDetected) Influenza Type B (PCR) Not Detected (NotDetected) M. pneumoniae (PCR) Not Detected (NotDetected) Parainfluenza 1 (PCR) Not Detected (NotDetected) Parainfluenza 2 (PCR) Not Detected (NotDetected) Parainfluenza 3 (PCR) DETECTED A (NotDetected) Parainfluenza 4 (PCR) Not Detected (NotDetected) RSV (PCR) Not Detected (NotDetected) Entero/Rhino (PCR) Not Detected (NotDetected) Crossmatch 08/02/23 Range/Units 14:35 WBC (4.8-10.8) K/ul RBC (4.20-5.40) M/uL Hgb (12.0-16.0) g/dl Hct (37.0-47.0) % MCV (80.0-100.0) fL MCH (25.0-34.0) pg MCHC (32.0-36.0) g/dL RDW Std Deviation (36.4-46.3) fL RDW Coeff of Joshua (11.5-14.5) % Plt Count (130-400) K/uL MPV (9.4-12.4) fL Immature Gran % (Auto) % Neut % (Auto) % Lymph % (Auto) % [place] % (Auto) % Eos % (Auto) % Baso % (Auto) % Neut # (Auto) (1.40-6.50) K/uL Lymph # (Auto) (1.20-3.40) K/uL [place] # (Auto) (0.11-0.59) K/uL Eos # (Auto) (0.00-0.50) K/uL Baso # (Auto) (0.00-0.20) K/uL Immature Gran # (Auto) (0.01-0.20) K/uL Absolute Nucleated RBC (0.00-0.12) K/uL Nucleated RBC % (auto) % RBC Morphology Polychromasia Anisocytosis PT (9.0-12.0) Seconds INR (0.9-1.1) APTT (21-31) Seconds PTT Ratio VBG pH (7.36-7.41) VBG pCO2 (38-50) mmHg VBG pO2 mmHg VBG HCO3 mmol/L VBG O2 Saturation % VBG Base Excess mEq/L Sodium (136-145) mmol/L Potassium (3.5-5.1) mmol/L Chloride (98-107) mmol/L Carbon Dioxide (21-32) mmol/L Anion Gap (3-11) BUN (6-23) mg/dl Creatinine (0.6-1.2) mg/dl Est Cr Clr Drug Dosing Est GFR ( Amer) ml/min Est GFR (Non-Af Amer) ml/min BUN/Creatinine Ratio (10-20) Glucose (70-99(Fasting)) mg/dl POC Glucose (70-99) mg/dl Estimat Average Glucose mg/dl Hemoglobin A1c (4.5-5.6) % Lactate (0.4-2.0) mmol/L Calcium (8.6-10.3) mg/dl Phosphorus (2.5-4.9) mg/dl Magnesium (1.7-2.4) mg/dl Iron (35-150) mcg/dl TIBC (250-450) mcg/dl Unsaturated IBC (155-355) mcg/dl Transferrin % Sat (15-50) % Ferritin (8-388) ng/ml Total Bilirubin (0.2-1.0) mg/dl AST (13-39) U/L ALT (7-52) U/L Alkaline Phosphatase (34-104) U/L Troponin I High Sens (0-14) pg/ml Total Protein (6.0-8.3) gm/dl Albumin (3.4-5.0) gm/dl Globulin (2.5-4.0) gm/dl Albumin/Globulin Ratio (0.9-2) Lipase (11-82) U/L Vitamin B12 (180-914) pg/ml Folate (>5.38) ng/ml Procalcitonin (0-0.5) ng/ml TSH (0.300-4.500) uIu/ml Free T4 (0.61-1.60) ng/dl Urine Color Urine Appearance (Clear) Urine pH (4.5-7.5) Ur Specific [place] (1.000-1.030) Urine Protein (Negative) Urine Glucose (UA) (Negative) Urine Ketones (Negative) Urine Blood (Negative) Urine Nitrite (Negative) Urine Bilirubin (Negative) Urine Urobilinogen (Negative) Ur Leukocyte Esterase (Negative) Urine WBC (Auto) (0-5) /hpf Urine RBC (Auto) (0-2) /hpf U Hyaline Cast (Auto) (0-2) /lpf U Epithel Cells (Auto) (0-2) /hpf Urine Bacteria (Auto) (None Seen) Nasal Screen MRSA (PCR) (Negative) Adenovirus (PCR) (NotDetected) B. pertussis DNA (PCR) (NotDetected) B.parapertussis DNA PCR (NotDetected) C. pneumoniae DNA (PCR) (NotDetected) Coronavirus OC43 (PCR) (NotDetected) Coronavirus HKU1 (PCR) (NotDetected) Coronavirus 229E (PCR) (NotDetected) SARS-CoV-2 (PCR) (NotDetected) Coronavirus NL63 (PCR) (NotDetected) Human Metapneumovir PCR (NotDetected) Influenza Type A (PCR) (NotDetected) Influenza Type B (PCR) (NotDetected) M. pneumoniae (PCR) (NotDetected) Parainfluenza 1 (PCR) (NotDetected) Parainfluenza 2 (PCR) (NotDetected) Parainfluenza 3 (PCR) (NotDetected) Parainfluenza 4 (PCR) (NotDetected) RSV (PCR) (NotDetected) Entero/Rhino (PCR) (NotDetected) Crossmatch See Detail Diagnostic Findings Laboratory Results WBC 1.41 K/ul (4.8-10.8) L 08/06/23 07:24 RBC 2.88 M/uL (4.20-5.40) L 08/06/23 07:24 Hgb 8.3 g/dl (12.0-16.0) L 08/06/23 07:24 Hct 24.6 % (37.0-47.0) L 08/06/23 07:24 MCV 85.4 fL (80.0-100.0) 08/06/23 07:24 MCH 28.8 pg (25.0-34.0) 08/06/23 07:24 MCHC 33.7 g/dL (32.0-36.0) 08/06/23 07:24 RDW Std Deviation 56.0 fL (36.4-46.3) H 08/06/23 07:24 RDW Coeff of Joshua 19.1 % (11.5-14.5) H 08/06/23 07:24 Plt Count 212 K/uL (130-400) 08/06/23 07:24 MPV 9.4 fL (9.4-12.4) 08/06/23 07:24 Immature Gran % (Auto) 2.1 % 08/06/23 07:24 Neut % (Auto) 12.1 % 08/06/23 07:24 Lymph % (Auto) 61.0 % 08/06/23 07:24 [place] % (Auto) 23.4 % 08/06/23 07:24 Eos % (Auto) 0.0 % 08/06/23 07:24 Baso % (Auto) 1.4 % 08/06/23 07:24 Neut # (Auto) 0.17 K/uL (1.40-6.50) L* 08/06/23 07:24 Lymph # (Auto) 0.86 K/uL (1.20-3.40) L 08/06/23 07:24 [place] # (Auto) 0.33 K/uL (0.11-0.59) 08/06/23 07:24 Eos # (Auto) 0.00 K/uL (0.00-0.50) 08/06/23 07:24 Baso # (Auto) 0.02 K/uL (0.00-0.20) 08/06/23 07:24 Immature Gran # (Auto) 0.03 K/uL (0.01-0.20) 08/06/23 07:24 Absolute Nucleated RBC 0.05 K/uL (0.00-0.12) 08/06/23 07:24 Nucleated RBC % (auto) 3.5 % 08/06/23 07:24 RBC Morphology Unremarkable 08/02/23 17:18 Polychromasia 1+ 08/06/23 07:24 Anisocytosis Present 08/04/23 08:04 PT 11.5 Seconds (9.0-12.0) 08/02/23 17:18 INR 1.1 (0.9-1.1) 08/02/23 17:18 APTT 25 Seconds (21-31) 08/02/23 17:18 PTT Ratio 0.9 08/02/23 17:18 VBG pH 7.44 (7.36-7.41) H 08/02/23 17:18 VBG pCO2 32 mmHg (38-50) L 08/02/23 17:18 VBG pO2 31 mmHg 08/02/23 17:18 VBG HCO3 22 mmol/L 08/02/23 17:18 VBG O2 Saturation < 60.0 % 08/02/23 17:18 VBG Base Excess -1.6 mEq/L 08/02/23 17:18 Sodium 134 mmol/L (136-145) L 08/04/23 08:04 Potassium 3.9 mmol/L (3.5-5.1) 08/04/23 08:04 Chloride 106 mmol/L (98-107) 08/04/23 08:04 Carbon Dioxide 21 mmol/L (21-32) 08/04/23 08:04 Anion Gap 7 (3-11) 08/04/23 08:04 BUN 15 mg/dl (6-23) 08/04/23 08:04 Creatinine 0.86 mg/dl (0.6-1.2) 08/04/23 08:04 Est Cr Clr Drug Dosing 99.6 ml/min 08/04/23 08:04 Est GFR ( Amer) 93.9 ml/min 08/04/23 08:04 Est GFR (Non-Af Amer) 81.0 ml/min 08/04/23 08:04 BUN/Creatinine Ratio 17.4 (10-20) 08/04/23 08:04 Glucose 147 mg/dl (70-99(Fasting)) H 08/04/23 08:04 POC Glucose 131 mg/dl (70-99) H 08/06/23 16:20 Estimat Average Glucose 169 mg/dl 08/04/23 08:04 Hemoglobin A1c 7.5 % (4.5-5.6) H 08/04/23 08:04 Lactate 1.5 mmol/L (0.4-2.0) 08/02/23 20:51 Calcium 8.3 mg/dl (8.6-10.3) L 08/04/23 08:04 Phosphorus 3.0 mg/dl (2.5-4.9) 08/04/23 08:04 Magnesium 1.5 mg/dl (1.7-2.4) L 08/04/23 08:04 Iron 69 mcg/dl (35-150) 08/04/23 08:04 TIBC 182 mcg/dl (250-450) L 08/04/23 08:04 Unsaturated IBC 113 mcg/dl (155-355) L 08/04/23 08:04 Transferrin % Sat 38 % (15-50) 08/04/23 08:04 Ferritin 1368.3 ng/ml (8-388) H 08/04/23 08:04 Total Bilirubin 0.6 mg/dl (0.2-1.0) 08/04/23 08:04 AST 17 U/L (13-39) 08/04/23 08:04 ALT 14 U/L (7-52) 08/04/23 08:04 Alkaline Phosphatase 135 U/L (34-104) H 08/04/23 08:04 Troponin I High Sens 4.9 pg/ml (0-14) 08/02/23 17:18 Total Protein 6.0 gm/dl (6.0-8.3) 08/04/23 08:04 Albumin 3.2 gm/dl (3.4-5.0) L 08/04/23 08:04 Globulin 2.8 gm/dl (2.5-4.0) 08/04/23 08:04 Albumin/Globulin Ratio 1.1 (0.9-2) 08/04/23 08:04 Lipase 11 U/L (11-82) 08/02/23 17:18 Vitamin B12 1192 pg/ml (180-914) H 08/04/23 08:04 Folate 4.07 ng/ml (>5.38) L 08/04/23 08:04 Procalcitonin 0.21 ng/ml (0-0.5) 08/02/23 17:18 TSH 6.973 uIu/ml (0.300-4.500) H 08/02/23 17:18 Free T4 0.76 ng/dl (0.61-1.60) 08/02/23 17:18 Urine Color Yellow 08/04/23 16:00 Urine Appearance Clear (Clear) 08/04/23 16:00 Urine pH 5.5 (4.5-7.5) 08/04/23 16:00 Ur Specific [place] 1.019 (1.000-1.030) 08/04/23 16:00 Urine Protein 1+ (Negative) H 08/04/23 16:00 Urine Glucose (UA) Negative (Negative) 08/04/23 16:00 Urine Ketones Trace (Negative) H 08/04/23 16:00 Urine Blood 3+ (Negative) H 08/04/23 16:00 Urine Nitrite Negative (Negative) 08/04/23 16:00 Urine Bilirubin Negative (Negative) 08/04/23 16:00 Urine Urobilinogen Negative (Negative) 08/04/23 16:00 Ur Leukocyte Esterase Trace (Negative) H 08/04/23 16:00 Urine WBC (Auto) 0-5 /hpf (0-5) 08/04/23 16:00 Urine RBC (Auto) >20 /hpf (0-2) H 08/04/23 16:00 U Hyaline Cast (Auto) 0-2 /lpf (0-2) 08/04/23 16:00 U Epithel Cells (Auto) 0-2 /hpf (0-2) 08/04/23 16:00 Urine Bacteria (Auto) None Seen (None Seen) 08/04/23 16:00 Nasal Screen MRSA (PCR) Negative (Negative) 08/03/23 17:55 Adenovirus (PCR) Not Detected (NotDetected) 08/02/23 17:27 B. pertussis DNA (PCR) Not Detected (NotDetected) 08/02/23 17:27 B.parapertussis DNA PCR Not Detected (NotDetected) 08/02/23 17:27 C. pneumoniae DNA (PCR) Not Detected (NotDetected) 08/02/23 17:27 Coronavirus OC43 (PCR) Not Detected (NotDetected) 08/02/23 17:27 Coronavirus HKU1 (PCR) Not Detected (NotDetected) 08/02/23 17:27 Coronavirus 229E (PCR) Not Detected (NotDetected) 08/02/23 17:27 SARS-CoV-2 (PCR) Not Detected (NotDetected) 08/02/23 17:27 Coronavirus NL63 (PCR) Not Detected (NotDetected) 08/02/23 17:27 Human Metapneumovir PCR Not Detected (NotDetected) 08/02/23 17:27 Influenza Type A (PCR) Not Detected (NotDetected) 08/02/23 17:27 Influenza Type B (PCR) Not Detected (NotDetected) 08/02/23 17:27 M. pneumoniae (PCR) Not Detected (NotDetected) 08/02/23 17:27 Parainfluenza 1 (PCR) Not Detected (NotDetected) 08/02/23 17:27 Parainfluenza 2 (PCR) Not Detected (NotDetected) 08/02/23 17:27 Parainfluenza 3 (PCR) DETECTED (NotDetected) A 08/02/23 17:27 Parainfluenza 4 (PCR) Not Detected (NotDetected) 08/02/23 17:27 RSV (PCR) Not Detected (NotDetected) 08/02/23 17:27 Entero/Rhino (PCR) Not Detected (NotDetected) 08/02/23 17:27 Crossmatch See Detail 08/02/23 14:35 Impressions Chest X-Ray 08/02/23 17:06 XR chest 1V portable CLINICAL HISTORY: Chest pain, nonspecific TECHNIQUE: Single frontal radiograph of the chest was obtained. Comparison: Comparison is made to chest radiograph 07/13/[address] abdomen pelvis 07/13/2023 FINDINGS: A port catheter is seen. Peripheral density in the right midlung is again seen. The lungs are clear. No evidence of pleural effusion or pneumothorax. IMPRESSION: Peripheral right airspace opacities are stable from prior exam. Otherwise no acute abnormalities. ACT 112: Negative or not required by law. Electronically signed by: Mariano Guerrier M.D. 08/02/2023 6:[address] 08/03/23 09:28 CT chest diagnostic wo con CT DOSE: 686.56 mGy.cm CLINICAL HISTORY: 48 years-old Female with r/o acute pneumonia, opacities on xray. Acute shortness of breath in a patient with history of breast cancer. TECHNIQUE: Multiaxial CT images of the chest were performed without contrast. A dose lowering technique was utilized adhering to the principles of ALARA. COMPARISON: Chest radiograph 08/02/2023, CTA chest 04/19/2023. FINDINGS: Heterogeneous thyroid with ill-defined subcentimeter nodules. Left subclavian Gisruq-b-Hqgl catheter. Trace pericardial effusion. Moderate coronary artery calcifications. Trace pleural effusions. Postoperative changes of the left breast. No pneumothorax or overt pulmonary edema. Peripheral subpleural consolidation of the right lung measures up to 10 cm within the right lower lobe on image 139 and 10 cm within the peripheral right lung on image 112. Several of the irregular nodular areas of consolidation within the right lung have resolved from the prior chest CT. Mild linear bibasilar atelectasis versus scarring. 3 mm solid nodule within the right middle lobe on image 124 is unchanged. 2 mm fissural nodule within the right lung on image 102 has decreased in size from prior suggestive of a lymph node. No new or enlarging pulmonary nodules. Central airways are patent. Postoperative changes of the left lung. Splenomegaly. Cholecystectomy. No acute upper abdominal abnormality. Extensive osseous metastasis redemonstrated which are mixed osteoblastic and osteolytic. Chronic pathologic thoracic compression deformities are noted with progressive vertebral body height loss at T7 and T8. There may also be epidural extension of disease within the thoracic spine. Pathologic fracturing of the sternal manubrium. IMPRESSION: 1. Peripheral subpleural consolidation throughout the right lung is likely infectious or inflammatory. 2. Trace pleural effusions. 3. No new or progressive lymphadenopathy. 4. 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 There is progressive vertebral body height loss involving the T7 and T8 vertebral bodies without significant retropulsion. There is also pathologic fracturing of the sternal manubrium. ACT 112: Negative or not required by law. Dictated: 08/03/2023 12:35 PM Transcribed: 08/03/2023 1:07 PM Gatitoelise [id number] [email or web address] [id number] Electronically signed by: Ruddy Chen M.D. 08/03/2023 1:09 PM PG Care Time/CCT Total # of Minutes Spent Total Time Spent with Patient: Total time spent is greater than 50% in coordination of care (as documented) at patient's floor/unit and/or counseling patient: I spent 60 minutes overall addressing this case: 15 min in medical data review/discussion with referring provider(s) and/or preparation for the visit 15min in direct interaction with the patient/exam 000 min in Advance Care Planning/Goals of Care discussions as detailed above in note (must be >16min) 15 min in subsequent review and synthesis of assessment and plan 15 min communicating with other providers regarding the patient's case: [place] [address] IN/OBS CONSULT LVL 4,60M Patient Type New History Comprehensive Exam Comprehensive Medical Decision Making High Complexity Diagnoses Cancer related pain G89.3 Intractable nausea and vomiting R11.2 Therapeutic opioid-induced constipation (OIC) K59.03; T40.2X5A Carcinoma of breast metastatic to bone, unspecified laterality C50.919; C79.51 Laterality: unspecified laterality Severe episode of recurrent major depressive disorder, without psychotic features F33.2 Depression Type: major depressive disorder Major depression recurrence: recurrent Active/Remission status: currently active Major depression episode severity: severe Psychotic features: without psychotic features Palliative care by specialist Z51.5
[2023-08-06] MEDS ORDERED: POLYETHYLENE (MIRALAX) 17 GM PACK PO PRN (18:59)
[2023-08-07] MEDS: DOCUSATE SODIUM/SENNA 50/8.6MG TAB PO SCH (08:32)
--- NOTE | 2023-08-07 14:30 | Hospitalist Progress Note ---
Date of Service August 07, 2023 Assessment & Plan (1) Weakness generalized: (2) Parainfluenza: Plan: Parainfluenza virus pneumonitis Observation Conservative management (3) Breast cancer metastasized to bone: Plan: Admit to [facility] Patient presenting by referral of palliative care for evaluation of generalized weakness. Patient with history of metastatic breast cancer, currently on chemotherapy, last treatment on 07/26/2023. Today's treatment canceled due to low hemoglobin. According to outpatient palliative care note, patient has had difficulty obtaining a walker, has been generally weak, and has very little family support at this time. Pain seems to be reasonably controlled Pain medication will need to be adjusted to better control of pain and will be done as needed Remains otherwise stable Continues to have pain and fentanyl patch was increased to 50 mcg every 72 hours Will get PT OT evaluation and possible discharge home in a day or 2 PT recommended rehab Appreciate palliative care input and recommendation Pain medicine has been adjusted Appreciate palliative care input and recommendation for pain management Remains free from any pain today but remains very weak and lethargic Biofire + parainfluenza CXR shows Peripheral right airspace opacities, stable from prior exam S/p cefepime in the ED, will continue with for now given patient's immunocompromise state. Check MRSA nasal swab. Follow blood cultures. PRN nebs Clinically much better and has been saturating normally on room air Will give oral antibiotic on discharge No acute respiratory symptoms PT/OT-recommended rehab (4) Anemia: Plan: Hgb 8.1, which is near patient's recent baseline, will consult oncology and defer transfusion Hemoglobin remained stable at 7.7 today Will check CBC tomorrow (5) Type II diabetes mellitus: Plan: hgb a1c 9.3 05/2023 Lantus and Novolog SSI DVT PROPHYLAXIS SQ Lovenox Admission and Anticipated Discharge Date Admission Date: August 02, 2023 Subjective 08/04/2023 The patient was seen and examined in medical floor She has been complaining of increasing pain Dilaudid changed to every 3 hourly as needed 08/05/2023 The patient was seen and examined in medical floor She has been complaining of more pain today Remain generally weak and lethargic Fentanyl patch has been increased to 50 mcg 08/06/2023 Patient was seen and examined in medical floor Pain is controlled with current regimen Appreciate palliative input and recommendation 08/07/2023 The patient was seen and examined in medical floor Her pain is reasonably controlled today Remains weak and lethargic Awaiting placement Review of Systems Constitutional: All systems reviewed and are unremarkable except as noted below Physical Exam Physical Exam: Lying in bed without any acute distress Constitutional: well developed, well nourished and + ill appearing Eyes: PERRL, conjunctivae normal, anicteric sclerae ENMT: external ear and nose normal, oropharynx normal Neck: trachea midline, no thyromegaly Respiratory: no respiratory distress Auscultation: lungs clear to auscultation bilaterally Cardiovascular: Rate/Rhythm: regular rate and regular rhythm; not tachycardic Heart Sounds: normal S1 and normal S2; no murmur Gastrointestinal (Abdomen): Inspection/Auscultation: normal bowel sounds; abdomen not distended Percussion/Palpation: + abdomen tender and abdomen soft Neurologic: normal touch/pain/proprioception and moves all extremities; no focal motor deficits Lymphatic: no cervical or axillary lymphadenopathy Results & Data Results & Data Vital Signs (Past 12 Hours) Vital Signs Temp Pulse Resp BP Pulse Ox O2 Del Method 08/07/23 07:48 36.8 C 95 H 18 99/64 L 99 Room Air (3) Breast cancer metastasized to bone Laterality: unspecified laterality Qualified Code(s): C50.919 - Malignant neoplasm of unspecified site of unspecified female breast; C79.51 - Secondary m alignant neoplasm of bone (5) Type II diabetes mellitus Diabetes mellitus complication status: with other specified complication Diabetes mellitus termite treater helper insulin use: with care home use Qualified Code(s): E11.69 - Type 2 diabetes mellitus with other specified complication; Z79.4 - intermediate (current) use of insulin
--- NOTE | 2023-08-08 14:14 | Hospitalist Progress Note ---
Date of Service August 08, 2023 Assessment & Plan (1) Weakness generalized: (2) Parainfluenza: Plan: Parainfluenza virus pneumonitis Observation Conservative management (3) Breast cancer metastasized to bone: Plan: Admit to [facility] Patient presenting by referral of palliative care for evaluation of generalized weakness. Patient with history of metastatic breast cancer, currently on chemotherapy, last treatment on 07/26/2023. Today's treatment canceled due to low hemoglobin. According to outpatient palliative care note, patient has had difficulty obtaining a walker, has been generally weak, and has very little family support at this time. Pain seems to be reasonably controlled Pain medication will need to be adjusted to better control of pain and will be done as needed Remains otherwise stable Continues to have pain and fentanyl patch was increased to 50 mcg every 72 hours Will get PT OT evaluation and possible discharge home in a day or 2 PT recommended rehab Appreciate palliative care input and recommendation Pain medicine has been adjusted Appreciate palliative care input and recommendation for pain management Remains free from any pain today but remains very weak and lethargic Pain is well-controlled with current regimen Awaiting placement Biofire + parainfluenza CXR shows Peripheral right airspace opacities, stable from prior exam S/p cefepime in the ED, will continue with for now given patient's immunocompromise state. Check MRSA nasal swab. Follow blood cultures. PRN nebs Clinically much better and has been saturating normally on room air Will give oral antibiotic on discharge No acute respiratory symptoms Denies any respiratory symptoms cough or shortness of breath at rest PT/OT-recommended rehab (4) Anemia: Plan: Hgb 8.1, which is near patient's recent baseline, will consult oncology and defer transfusion Hemoglobin remained stable at 7.7 today Will check CBC tomorrow (5) Type II diabetes mellitus: Plan: hgb a1c 9.3 05/2023 Lantus and Novolog SSI DVT PROPHYLAXIS SQ Lovenox Admission and Anticipated Discharge Date Admission Date: August 02, 2023 Subjective 08/04/2023 The patient was seen and examined in medical floor She has been complaining of increasing pain Dilaudid changed to every 3 hourly as needed 08/05/2023 The patient was seen and examined in medical floor She has been complaining of more pain today Remain generally weak and lethargic Fentanyl patch has been increased to 50 mcg 08/06/2023 Patient was seen and examined in medical floor Pain is controlled with current regimen Appreciate palliative input and recommendation 08/07/2023 The patient was seen and examined in medical floor Her pain is reasonably controlled today Remains weak and lethargic Awaiting placement 08/08/2023 The patient was seen and examined in the medical floor She remains generally weak but remains controlled Review of Systems Constitutional: All systems reviewed and are unremarkable except as noted below Physical Exam Physical Exam: Lying in bed without any acute distress Constitutional: well developed, well nourished and + ill appearing Eyes: PERRL, conjunctivae normal, anicteric sclerae ENMT: external ear and nose normal, oropharynx normal Neck: trachea midline, no thyromegaly Respiratory: no respiratory distress Auscultation: lungs clear to auscultation bilaterally Cardiovascular: Rate/Rhythm: regular rate and regular rhythm; not tachycardic Heart Sounds: normal S1 and normal S2; no murmur Gastrointestinal (Abdomen): Inspection/Auscultation: normal bowel sounds; abdomen not distended Percussion/Palpation: + abdomen tender and abdomen soft Neurologic: normal touch/pain/proprioception and moves all extremities; no focal motor deficits Lymphatic: no cervical or axillary lymphadenopathy Results & Data Results & Data Vital Signs (Past 12 Hours) Vital Signs Temp Pulse Resp BP Pulse Ox O2 Del Method 08/08/23 07:57 36.6 C 85 16 95/65 L 96 Room Air Medications Administered Current Inpatient Medications Acetaminophen (Acetaminophen 325 Mg Tab) 650 mg PO Q4H PRN PRN Reason: mild pain/fever Stop: 09/01/23 21:24 Albuterol (Albut/Ipratrop 3mg/0.5mg Neb 3 Ml Vial) 3 ml NEB Q4R PRN; Protocol PRN Reason: Shortness Of Breath Or Wheezing Stop: 09/01/23 21:24 Dextrose (Dextrose 50% 50 Ml Syringe) 25 - 50 ml IV UD PRN; Protocol PRN Reason: Hypoglycemia Protocol Stop: 09/01/23 21:24 Doxycycline Hyclate (Doxycycline Hyclate 100 Mg Cap) 100 mg PO Q12H JESSE Stop: 08/10/23 16:59 Last Admin: 08/08/23 04:03 Dose: Not Given Enoxaparin Sodium (Enoxaparin Inj 40 Mg/0.4 Ml Syr) 40 mg SQ HS JESSE Stop: 09/01/23 21:59 Last Admin: 08/07/23 19:59 Dose: Not Given Fentanyl (Fentanyl 50 Mcg/Hr Tdsy) 1 patch TD Q3D@0900 [facility] Stop: 08/19/23 10:59 Last Admin: 08/08/23 09:50 Dose: 1 patch Glucagon (Glucagon For Inj 1 Mg Vial) 1 mg SQ UD PRN; Protocol PRN Reason: Hypoglycemia Protocol Stop: 09/01/23 21:24 Glucose (Glucose 40% Gel 15 Gm Tube) 15 - 30 gm PO UD PRN; Protocol PRN Reason: Hypoglycemia Protocol Stop: 09/01/23 21:24 Glucose (Glucose 10 Tab/Tube) 4 - 8 tab PO UD PRN; Protocol PRN Reason: Hypoglycemia Treatment Stop: 09/01/23 21:24 Heparin Sodium (Porcine) (Heparin 100 Unit/Ml 5ml Flush) 5 ml FLUSH PRN PRN PRN Reason: Flush Stop: 09/02/23 09:08 Last Admin: 08/08/23 01:54 Dose: 5 ml Hydromorphone HCl (Hydromorphone Inj 0.5 Mg/0.5 Ml Syr) 1 mg IV Q3H PRN PRN Reason: severe pain Stop: 08/16/23 21:24 Last Admin: 08/08/23 09:16 Dose: 1 mg Hydromorphone HCl (Hydromorphone Hcl 8 Mg Tab) 8 mg PO Q3H PRN PRN Reason: moderate-severe pain Stop: 08/20/23 13:46 Last Admin: 08/07/23 21:11 Dose: 8 mg Cefepime HCl 2,000 mg/ Syringe 20 mls @ 5 mls/min IV Q8H [facility]; Protocol Stop: 08/10/23 01:59 Last Admin: 08/08/23 10:59 Dose: 5 mls/min Insulin Aspart (Insulin Aspart Per Unit Charge) 0 units SC ACHS [facility] Stop: 09/01/23 21:24 Last Admin: 08/08/23 12:28 Dose: 4 units Insulin Glargine (Lantus Per Unit Charge) 25 units SQ BID [facility] Stop: 09/01/23 21:24 Last Admin: 08/08/23 09:15 Dose: 25 units Miscellaneous (Carbohydrates For Hypoglycemia ) 15 - 30 gm PO UD PRN PRN Reason: Hypoglycemia Protocol Stop: 09/01/23 21:24 Miscellaneous (Fentanyl Patch Remove & Waste) 1 each N/A Q3D@0859 [facility] Stop: 09/04/23 10:58 Last Admin: 08/08/23 09:48 Dose: 1 each Miscellaneous (Check Fentanyl Patch Placement) 1 each N/A QS [facility] Stop: 09/04/23 15:59 Last Admin: 08/08/23 09:23 Dose: 1 each Olanzapine (Olanzapine 5 Mg Tablet) 5 mg PO BID [facility] Stop: 09/01/23 21:24 Last Admin: 08/08/23 09:27 Dose: Not Given Ondansetron HCl (Ondansetron Inj 2 Mg/Ml 2 Ml Vial) 4 mg IV Q6H PRN PRN Reason: Nausea Stop: 09/01/23 21:24 Polyethylene Glycol (Polyethylene (Miralax) 17 Gm Pack) 17 gm PO DAILY PRN PRN Reason: Constipation Stop: 09/05/23 18:58 Senna/Docusate Sodium (Docusate Sodium/Senna 50/8.6mg Tab) 1 tab PO QAM [facility] Stop: 09/06/23 08:59 Last Admin: 08/08/23 10:59 Dose: Not Given (3) Breast cancer metastasized to bone Laterality: unspecified laterality Qualified Code(s): C50.919 - Malignant neoplasm of unspecified site of unspecified female breast; C79.51 - Secondary malignant neoplasm of bone (5) Type II diabetes mellitus Diabetes mellitus complication status: with other specified complication Diabetes mellitus oil 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
--- NOTE | 2023-08-09 13:49 | Hospitalist Progress Note ---
Date of Service August 09, 2023 Assessment & Plan (1) Weakness generalized: (2) Parainfluenza: Plan: Parainfluenza virus pneumonitis Observation Conservative management (3) Breast cancer metastasized to bone: Plan: Admit to [facility] Patient presenting by referral of palliative care for evaluation of generalized weakness. Patient with history of metastatic breast cancer, currently on chemotherapy, last treatment on 07/26/2023. Today's treatment canceled due to low hemoglobin. According to outpatient palliative care note, patient has had difficulty obtaining a walker, has been generally weak, and has very little family support at this time. Pain seems to be reasonably controlled Pain medication will need to be adjusted to better control of pain and will be done as needed Remains otherwise stable Continues to have pain and fentanyl patch was increased to 50 mcg every 72 hours Will get PT OT evaluation and possible discharge home in a day or 2 PT recommended rehab Appreciate palliative care input and recommendation Pain medicine has been adjusted Appreciate palliative care input and recommendation for pain management Remains free from any pain today but remains very weak and lethargic Pain is well-controlled with current regimen Awaiting placement Remains medically stable to be transferred Pain is controlled with current regimen Biofire + parainfluenza CXR shows Peripheral right airspace opacities, stable from prior exam S/p cefepime in the ED, will continue with for now given patient's immunocompromise state. Check MRSA nasal swab. Follow blood cultures. PRN nebs Clinically much better and has been saturating normally on room air Will give oral antibiotic on discharge No acute respiratory symptoms Denies any respiratory symptoms cough or shortness of breath at rest PT/OT-recommended rehab (4) Anemia: Plan: Hgb 8.1, which is near patient's recent baseline, will consult oncology and defer transfusion Hemoglobin remained stable at 7.7 today Will check CBC tomorrow (5) Type II diabetes mellitus: Plan: hgb a1c 9.3 05/2023 Lantus and Novolog SSI DVT PROPHYLAXIS SQ Lovenox Admission and Anticipated Discharge Date Admission Date: August 02, 2023 Subjective 08/04/2023 The patient was seen and examined in medical floor She has been complaining of increasing pain Dilaudid changed to every 3 hourly as needed 08/05/2023 The patient was seen and examined in medical floor She has been complaining of more pain today Remain generally weak and lethargic Fentanyl patch has been increased to 50 mcg 08/06/2023 Patient was seen and examined in medical floor Pain is controlled with current regimen Appreciate palliative input and recommendation 08/07/2023 The patient was seen and examined in medical floor Her pain is reasonably controlled today Remains weak and lethargic Awaiting placement 08/08/2023 The patient was seen and examined in the medical floor She remains generally weak but remains controlled 08/09/2023 The patient was seen and examined in medical floor She has been free from any pain but remains very lethargic and weak Has been waiting to go to rehab Review of Systems Constitutional: All systems reviewed and are unremarkable except as noted below Physical Exam Physical Exam: Lying in bed without any acute distress Constitutional: well developed, well nourished and + ill appearing Eyes: PERRL, conjunctivae normal, anicteric sclerae ENMT: external ear and nose normal, oropharynx normal Neck: trachea midline, no thyromegaly Respiratory: no respiratory distress Auscultation: lungs clear to auscultation bilaterally Cardiovascular: Rate/Rhythm: regular rate and regular rhythm; not tachycardic Heart Sounds: normal S1 and normal S2; no murmur Gastrointestinal (Abdomen): Inspection/Auscultation: normal bowel sounds; abdomen not distended Percussion/Palpation: + abdomen tender and abdomen soft Neurologic: normal touch/pain/proprioception and moves all extremities; no focal motor deficits Lymphatic: no cervical or axillary lymphadenopathy Results & Data Results & Data Vital Signs (Past 12 Hours) Vital Signs Temp Pulse Pulse Resp BP Pulse Ox O2 Del Method 08/09/23 08:20 36.9 C 85 83 17 122/64 97 Room Air Medications Administered Current Inpatient Medications Acetaminophen (Acetaminophen 325 Mg Tab) 650 mg PO Q4H PRN PRN Reason: mild pain/fever Stop: 09/01/23 21:24 Albuterol (Albut/Ipratrop 3mg/0.5mg Neb 3 Ml Vial) 3 ml NEB Q4R PRN; Protocol PRN Reason: Shortness Of Breath Or Wheezing Stop: 09/01/23 21:24 Dextrose (Dextrose 50% 50 Ml Syringe) 25 - 50 ml IV UD PRN; Protocol PRN Reason: Hypoglycemia Protocol Stop: 09/01/23 21:24 Doxycycline Hyclate (Doxycycline Hyclate 100 Mg Cap) 100 mg PO Q12H [facility] Stop: 08/10/23 16:59 Last Admin: 08/09/23 04:48 Dose: Not Given Enoxaparin Sodium (Enoxaparin Inj 40 Mg/0.4 Ml Syr) 40 mg SQ HS JESSE Stop: 09/01/23 21:59 Last Admin: 08/08/23 20:18 Dose: Not Given Fentanyl (Fentanyl 50 Mcg/Hr Tdsy) 1 patch TD Q3D@0900 [facility] Stop: 08/19/23 10:59 Last Admin: 08/08/23 09:50 Dose: 1 patch Glucagon (Glucagon For Inj 1 Mg Vial) 1 mg SQ UD PRN; Protocol PRN Reason: Hypoglycemia Protocol Stop: 09/01/23 21:24 Glucose (Glucose 40% Gel 15 Gm Tube) 15 - 30 gm PO UD PRN; Protocol PRN Reason: Hypoglycemia Protocol Stop: 09/01/23 21:24 Glucose (Glucose 10 Tab/Tube) 4 - 8 tab PO UD PRN; Protocol PRN Reason: Hypoglycemia Treatment Stop: 09/01/23 21:24 Heparin Sodium (Porcine) (Heparin 100 Unit/Ml 5ml Flush) 5 ml FLUSH PRN PRN PRN Reason: Flush Stop: 09/02/23 09:08 Last Admin: 08/09/23 01:44 Dose: 5 ml Hydromorphone HCl (Hydromorphone Inj 0.5 Mg/0.5 Ml Syr) 1 mg IV Q3H PRN PRN Reason: severe pain Stop: 08/16/23 21:24 Last Admin: 08/09/23 08:07 Dose: 1 mg Hydromorphone HCl (Hydromorphone Hcl 8 Mg Tab) 8 mg PO Q3H PRN PRN Reason: moderate-severe pain Stop: 08/20/23 13:46 Last Admin: 08/08/23 20:20 Dose: 8 mg Cefepime HCl 2,000 mg/ Syringe 20 mls @ 5 mls/min IV Q8H [facility]; Protocol Stop: 08/10/23 01:59 Last Admin: 08/09/23 10:17 Dose: 5 mls/min Insulin Aspart (Insulin Aspart Per Unit Charge) 0 units SC ACHS [facility] Stop: 09/01/23 21:24 Last Admin: 08/09/23 12:09 Dose: Not Given Insulin Glargine (Lantus Per Unit Charge) 25 units SQ BID [facility] Stop: 09/01/23 21:24 Last Admin: 08/09/23 09:36 Dose: 25 units Miscellaneous (Carbohydrates For Hypoglycemia ) 15 - 30 gm PO UD PRN PRN Reason: Hypoglycemia Protocol Stop: 09/01/23 21:24 Miscellaneous (Fentanyl Patch Remove & Waste) 1 each N/A Q3D@0859 [facility] Stop: 09/04/23 10:58 Last Admin: 08/08/23 09:48 Dose: 1 each Miscellaneous (Check Fentanyl Patch Placement) 1 each N/A QS [facility] Stop: 09/04/23 15:59 Last Admin: 08/09/23 08:16 Dose: 1 each Olanzapine (Olanzapine 5 Mg Tablet) 5 mg PO BID [facility] Stop: 09/01/23 21:24 Last Admin: 08/09/23 09:32 Dose: 5 mg Ondansetron HCl (Ondansetron Inj 2 Mg/Ml 2 Ml Vial) 4 mg IV Q6H PRN PRN Reason: Nausea Stop: 09/01/23 21:24 Polyethylene Glycol (Polyethylene (Miralax) 17 Gm Pack) 17 gm PO DAILY PRN PRN Reason: Constipation Stop: 09/05/23 18:58 Senna/Docusate Sodium (Docusate Sodium/Senna 50/8.6mg Tab) 1 tab PO QAM [facility] Stop: 09/06/23 08:59 Last Admin: 08/09/23 09:33 Dose: 1 tab (3) Breast cancer metastasized to bone Laterality: unspecified laterality Qualified Code(s): C50.919 - Malignant neoplasm of unspecified site of unspecified female breast; C79.51 - Secondary malignant neoplasm of bone (5) Type II diabetes mellitus Diabetes mellitus complication status: with other specified complication Diabetes mellitus superintendent container terminal insulin use: with assisted use Qualified Code(s): E11.69 - Type 2 diabetes mellitus with other specified complication; Z79.4 - oysterman (current) use of insulin
[2023-08-10] MEDS: bisacodyL 10 MG SUPP PR STA (13:28)
--- NOTE | 2023-08-10 15:21 | Hospitalist Progress Note ---
Date of Service August 10, 2023 Assessment & Plan (1) Weakness generalized: (2) Parainfluenza: Plan: Parainfluenza virus pneumonitis Observation Conservative management (3) Breast cancer metastasized to bone: Plan: Admit to [facility] Patient presenting by referral of palliative care for evaluation of generalized weakness. Patient with history of metastatic breast cancer, currently on chemotherapy, last treatment on 07/26/2023. Today's treatment canceled due to low hemoglobin. According to outpatient palliative care note, patient has had difficulty obtaining a walker, has been generally weak, and has very little family support at this time. Pain seems to be reasonably controlled Pain medication will need to be adjusted to better control of pain and will be done as needed Remains otherwise stable Continues to have pain and fentanyl patch was increased to 50 mcg every 72 hours Will get PT OT evaluation and possible discharge home in a day or 2 PT recommended rehab Appreciate palliative care input and recommendation Pain medicine has been adjusted Appreciate palliative care input and recommendation for pain management Remains free from any pain today but remains very weak and lethargic Pain is well-controlled with current regimen Awaiting placement Remains medically stable to be transferred Pain is controlled with current regimen Fentanyl patch has been increased to 75 mcg by the palliative Remains weak and lethargic and awaiting placement Biofire + parainfluenza CXR shows Peripheral right airspace opacities, stable from prior exam S/p cefepime in the ED, will continue with for now given patient's immunocompromise state. Check MRSA nasal swab. Follow blood cultures. PRN nebs Clinically much better and has been saturating normally on room air Will give oral antibiotic on discharge No acute respiratory symptoms Denies any respiratory symptoms cough or shortness of breath at rest PT/OT-recommended rehab (4) Anemia: Plan: Hgb 8.1, which is near patient's recent baseline, will consult oncology and defer transfusion Hemoglobin remained stable at 7.7 today Will check CBC tomorrow (5) Type II diabetes mellitus: Plan: hgb a1c 9.3 05/2023 Lantus and Novolog SSI DVT PROPHYLAXIS SQ Lovenox Admission and Anticipated Discharge Date Admission Date: August 02, 2023 Subjective 08/04/2023 The patient was seen and examined in medical floor She has been complaining of increasing pain Dilaudid changed to every 3 hourly as needed 08/05/2023 The patient was seen and examined in medical floor She has been complaining of more pain today Remain generally weak and lethargic Fentanyl patch has been increased to 50 mcg 08/06/2023 Patient was seen and examined in medical floor Pain is controlled with current regimen Appreciate palliative input and recommendation 08/07/2023 The patient was seen and examined in medical floor Her pain is reasonably controlled today Remains weak and lethargic Awaiting placement 08/08/2023 The patient was seen and examined in the medical floor She remains generally weak but remains controlled 08/09/2023 The patient was seen and examined in medical floor She has been free from any pain but remains very lethargic and weak Has been waiting to go to rehab 08/10/2023 The patient was seen and examined in medical floor She has been stable and pain seems to be controlled Later on was seen by Dr. Jara and pain medications were increased Review of Systems Constitutional: All systems reviewed and are unremarkable except as noted below Physical Exam Physical Exam: Lying in bed without any acute distress Constitutional: well developed, well nourished and + ill appearing Eyes: PERRL, conjunctivae normal, anicteric sclerae ENMT: external ear and nose normal, oropharynx normal Neck: trachea midline, no thyromegaly Respiratory: no respiratory distress Auscultation: lungs clear to auscultation bilaterally Cardiovascular: Rate/Rhythm: regular rate and regular rhythm; not tachycardic Heart Sounds: normal S1 and normal S2; no murmur Gastrointestinal (Abdomen): Inspection/Auscultation: normal bowel sounds; abdomen not distended Percussion/Palpation: + abdomen tender and abdomen soft Neurologic: normal touch/pain/proprioception and moves all extremities; no focal motor deficits Lymphatic: no cervical or axillary lymphadenopathy Results & Data Results & Data Vital Signs (Past 12 Hours) Vital Signs Temp Pulse Resp BP Pulse Ox O2 Del Method 08/10/23 14:56 36.6 C 91 H 18 116/78 99 Room Air 08/10/23 07:19 36.7 C 84 18 93/61 L 97 Room Air Medications Administered Current Inpatient Medications Acetaminophen (Acetaminophen 325 Mg Tab) 650 mg PO Q4H PRN PRN Reason: mild pain/fever Stop: 09/01/23 21:24 Albuterol (Albut/Ipratrop 3mg/0.5mg Neb 3 Ml Vial) 3 ml NEB Q4R PRN; Protocol PRN Reason: Shortness Of Breath Or Wheezing Stop: 09/01/23 21:24 Dextrose (Dextrose 50% 50 Ml Syringe) 25 - 50 ml IV UD PRN; Protocol PRN Reason: Hypoglycemia Protocol Stop: 09/01/23 21:24 Doxycycline Hyclate (Doxycycline Hyclate 100 Mg Cap) 100 mg PO Q12H JSESE Stop: 08/10/23 16:59 Last Admin: 08/10/23 04:02 Dose: Not Given Enoxaparin Sodium (Enoxaparin Inj 40 Mg/0.4 Ml Syr) 40 mg SQ HS JESSE Stop: 09/01/23 21:59 Last Admin: 08/09/23 21:40 Dose: Not Given Fentanyl (Fentanyl 75 Mcg/Hr Tdsy) 1 patch TD Q72H JESSE Stop: 08/24/23 14:59 Glucagon (Glucagon For Inj 1 Mg Vial) 1 mg SQ UD PRN; Protocol PRN Reason: Hypoglycemia Protocol Stop: 09/01/23 21:24 Glucose (Glucose 40% Gel 15 Gm Tube) 15 - 30 gm PO UD PRN; Protocol PRN Reason: Hypoglycemia Protocol Stop: 09/01/23 21:24 Glucose (Glucose 10 Tab/Tube) 4 - 8 tab PO UD PRN; Protocol PRN Reason: Hypoglycemia Treatment Stop: 09/01/23 21:24 Heparin Sodium (Porcine) (Heparin 100 Unit/Ml 5ml Flush) 5 ml FLUSH PRN PRN PRN Reason: Flush Stop: 09/02/23 09:08 Last Admin: 08/10/23 06:38 Dose: 5 ml Hydromorphone HCl (Hydromorphone Inj 0.5 Mg/0.5 Ml Syr) 1 mg IV Q3H PRN PRN Reason: severe pain Stop: 08/16/23 21:24 Last Admin: 08/10/23 06:38 Dose: 1 mg Hydromorphone HCl (Hydromorphone Hcl 8 Mg Tab) 8 mg PO Q3H PRN PRN Reason: moderate-severe pain Stop: 08/20/23 13:46 Last Admin: 08/09/23 21:43 Dose: 8 mg Insulin Aspart (Insulin Aspart Per Unit Charge) 0 units SC ACHS JESSE Stop: 09/01/23 21:24 Last Admin: 08/10/23 13:28 Dose: 5 units Insulin Glargine (Lantus Per Unit Charge) 25 units SQ BID [facility] Stop: 09/01/23 21:24 Last Admin: 08/10/23 08:47 Dose: 25 units Miscellaneous (Carbohydrates For Hypoglycemia ) 15 - 30 gm PO UD PRN PRN Reason: Hypoglycemia Protocol Stop: 09/01/23 21:24 Miscellaneous (Fentanyl Patch Remove & Waste) 1 each N/A Q72H JESSE Stop: 09/09/23 14:59 Miscellaneous (Check Fentanyl Patch Placement) 1 each N/A QS [facility] Stop: 09/09/23 15:59 Olanzapine (Olanzapine 5 Mg Tablet) 5 mg PO BID JESSE Stop: 09/01/23 21:24 Last Admin: 08/10/23 08:30 Dose: 5 mg Ondansetron HCl (Ondansetron Inj 2 Mg/Ml 2 Ml Vial) 4 mg IV Q6H PRN PRN Reason: Nausea Stop: 09/01/23 21:24 Polyethylene Glycol (Polyethylene (Miralax) 17 Gm Pack) 17 gm PO DAILY PRN PRN Reason: Constipation Stop: 09/05/23 18:58 Senna/Docusate Sodium (Docusate Sodium/Senna 50/8.6mg Tab) 1 tab PO QAM [facility] Stop: 09/06/23 08:59 Last Admin: 08/10/23 08:48 Dose: 1 tab (3) Breast cancer metastasized to bone Laterality: unspecified laterality Qualified Code(s): C50.919 - Malignant neoplasm of unspecified site of unspecified female breast; C79.51 - Secondary malignant neoplasm of bone (5) Type II diabetes mellitus Diabetes mellitus complication status: with other specified complication Diabetes mellitus intermediate project manager insulin use: with intermediate project manager use Qualified Code(s): E11.69 - Type 2 diabetes mellitus with other specified complication; Z79.4 - keno terminal operator (current) use of insulin
[2023-08-10] MEDS: ONDANSETRON INJ 2 MG/ML 2 ML VIAL IV PRN (15:44)
[2023-08-10] MEDS: fentaNYL 75 MCG/HR TDSY TD SCH (17:19)
[2023-08-10] MEDS: CHECK fentaNYL PATCH PLACEMENT SCH (17:20)
--- NOTE | 2023-08-10 21:03 | Palliative Care Progress Note ---
Date of Service August 10, 2023 Assessment & Plan (1) Cancer related pain: Plan: Increase to TDF 75mcg q3days and continue prn oral Dilaudid (2) Therapeutic opioid-induced constipation (OIC): Plan: Bowel regimen in place - I have increased this to Senna S 2 tab BID and Miralax one unit dose daily, added option for mineral oil enema daily prn - Yamilka's historical pattern of constipation has been dried hard stool in rectal vault that has been too hard/dry to push out; in the past she has had to manually disimpact herself/. Mineral oil may help resolve this for her given that it will soften the hard stool in vault and allow her to expel it easier. Consider trial of Relistor but will need KUB to document no obstruction prior to first dose (3) Intractable nausea and vomiting: Plan: improved (4) Depression: (5) Advanced care planning/counseling discussion: Plan: met with Ann x 60min face to face for ACP logotherapy and legacy review discussions set goals for next steps in planning for her children, her housing and SSI benefit changes hopes to resume chemo hopes rehab will recover strength is starting to come to terms with more of the what-ifs of cancer terminality and also more openly sharing/discussing issues from her past which continues to create struggle for her but she is trying to navigate a path to peaceful acceptance and perhaps forgiveness (6) Palliative care by specialist: (7) Breast cancer metastasized to bone: Plan as above RTC with me early August, we will schedule this in [facility] to match her appt Thank you for allowing us to participate in the ongoing care of this patient. Please don't hesitate to call or page with any additional concerns. Dr. Luna Limon DNP Director, Palliative Care Admission and Anticipated Discharge Date Admission Date: August 02, 2023 Subjective pain is ongoing, using prn diligently walking with PT when i arrived: using walker, short distance down hallway and back before feeling weakness in left leg and near buckling like sensation no dyspnea inc hiccups but no n/v appetite "so so" but is keeping things down constipated and will try suppository today hoping for a shower today awaiting auth approval for rehab [facility] Review of Systems Review of Systems: All systems reviewed & are unremarkable except as noted in Subjective Physical Exam Physical Exam: Chronically ill appearing, tearful intermittently, fatigued bitemp wasting, alopecia/chemo related; perrla, EOMIs Neck supple, no stridor, edentulous, MM dry Resp effort WAL, no use of accessory muscles S1S2 Abd soft, NTP, BS+ Anterior to lateral left ribs/chest and back +TTP +generalized weakness, LLE >> RLE paraspinal tenderness AAOx3 skin dry no BLE edema Results & Data Vital Signs (Past 12 Hours) Vital Signs Temp Pulse Resp BP Pulse Ox O2 Del Method 08/10/23 19:45 36.6 C 80 18 135/81 99 Room Air 08/10/23 14:56 36.6 C 91 H 18 116/78 99 Room Air Laboratory Results 08/10/23 08/10/23 08/09/23 Range/Units 11:50 07:40 20:51 WBC (4.8-10.8) K/ul RBC (4.20-5.40) M/uL Hgb (12.0-16.0) g/dl Hct (37.0-47.0) % MCV (80.0-100.0) fL MCH (25.0-34.0) pg MCHC (32.0-36.0) g/dL RDW Std Deviation (36.4-46.3) fL RDW Coeff of Joshua (11.5-14.5) % Plt Count (130-400) K/uL MPV (9.4-12.4) fL Immature Gran % (Auto) % Neut % (Auto) % Lymph % (Auto) % [place] % (Auto) % Eos % (Auto) % Baso % (Auto) % Neut # (Auto) (1.40-6.50) K/uL Lymph # (Auto) (1.20-3.40) K/uL [place] # (Auto) (0.11-0.59) K/uL Eos # (Auto) (0.00-0.50) K/uL Baso # (Auto) (0.00-0.20) K/uL Immature Gran # (Auto) (0.01-0.20) K/uL Absolute Nucleated RBC (0.00-0.12) K/uL Nucleated RBC % (auto) % Polychromasia Anisocytosis Sodium (136-145) mmol/L Potassium (3.5-5.1) mmol/L Chloride (98-107) mmol/L Carbon Dioxide (21-32) mmol/L Anion Gap (3-11) BUN (6-23) mg/dl Creatinine (0.6-1.2) mg/dl Est Cr Clr Drug Dosing ml/min Est GFR ( Amer) ml/min Est GFR (Non-Af Amer) ml/min BUN/Creatinine Ratio (10-20) Glucose (70-99(Fasting)) mg/dl POC Glucose 109 H 104 H 155 H (70-99) mg/dl Estimat Average Glucose mg/dl Hemoglobin A1c (4.5-5.6) % Calcium (8.6-10.3) mg/dl Phosphorus (2.5-4.9) mg/dl Magnesium (1.7-2.4) mg/dl Iron (35-150) mcg/dl TIBC (250-450) mcg/dl Unsaturated IBC (155-355) mcg/dl Transferrin % Sat (15-50) % Ferritin (8-388) ng/ml Total Bilirubin (0.2-1.0) mg/dl AST (13-39) U/L ALT (7-52) U/L Alkaline Phosphatase (34-104) U/L Total Protein (6.0-8.3) gm/dl Albumin (3.4-5.0) gm/dl Globulin (2.5-4.0) gm/dl Albumin/Globulin Ratio (0.9-2) Vitamin B12 (180-914) pg/ml Folate (>5.38) ng/ml Urine Color Urine Appearance (Clear) Urine pH (4.5-7.5) Ur Specific [place] (1.000-1.030) Urine Protein (Negative) Urine Glucose (UA) (Negative) Urine Ketones (Negative) Urine Blood (Negative) Urine Nitrite (Negative) Urine Bilirubin (Negative) Urine Urobilinogen (Negative) Ur Leukocyte Esterase (Negative) Urine WBC (Auto) (0-5) /hpf Urine RBC (Auto) (0-2) /hpf U Hyaline Cast (Auto) (0-2) /lpf U Epithel Cells (Auto) (0-2) /hpf Urine Bacteria (Auto) (None Seen) 06/10/24 06/10/24 06/09/24 Range/Units 16:41 07:41 20:35 WBC (4.8-10.8) K/ul RBC (4.20-5.40) M/uL Hgb (12.0-16.0) g/dl Hct (37.0-47.0) % MCV (80.0-100.0) fL MCH (25.0-34.0) pg MCHC (32.0-36.0) g/dL RDW Std Deviation (36.4-46.3) fL RDW Coeff of Joshua (11.5-14.5) % Plt Count (130-400) K/uL MPV (9.4-12.4) fL Immature Gran % (Auto) % Neut % (Auto) % Lymph % (Auto) % [place] % (Auto) % Eos % (Auto) % Baso % (Auto) % Neut # (Auto) (1.40-6.50) K/uL Lymph # (Auto) (1.20-3.40) K/uL [place] # (Auto) (0.11-0.59) K/uL Eos # (Auto) (0.00-0.50) K/uL Baso # (Auto) (0.00-0.20) K/uL Immature Gran # (Auto) (0.01-0.20) K/uL Absolute Nucleated RBC (0.00-0.12) K/uL Nucleated RBC % (auto) % Polychromasia Anisocytosis Sodium (136-145) mmol/L Potassium (3.5-5.1) mmol/L Chloride (98-107) mmol/L Carbon Dioxide (21-32) mmol/L Anion Gap (3-11) BUN (6-23) mg/dl Creatinine (0.6-1.2) mg/dl Est Cr Clr Drug Dosing ml/min Est GFR ( Amer) ml/min Est GFR (Non-Af Amer) ml/min BUN/Creatinine Ratio (10-20) Glucose (70-99(Fasting)) mg/dl POC Glucose 93 106 H 137 H (70-99) mg/dl Estimat Average Glucose mg/dl Hemoglobin A1c (4.5-5.6) % Calcium (8.6-10.3) mg/dl Phosphorus (2.5-4.9) mg/dl Magnesium (1.7-2.4) mg/dl Iron (35-150) mcg/dl TIBC (250-450) mcg/dl Unsaturated IBC (155-355) mcg/dl Transferrin % Sat (15-50) % Ferritin (8-388) ng/ml Total Bilirubin (0.2-1.0) mg/dl AST (13-39) U/L ALT (7-52) U/L Alkaline Phosphatase (34-104) U/L Total Protein (6.0-8.3) gm/dl Albumin (3.4-5.0) gm/dl Globulin (2.5-4.0) gm/dl Albumin/Globulin Ratio (0.9-2) Vitamin B12 (180-914) pg/ml Folate (>5.38) ng/ml Urine Color Urine Appearance (Clear) Urine pH (4.5-7.5) Ur Specific [place] (1.000-1.030) Urine Protein (Negative) Urine Glucose (UA) (Negative) Urine Ketones (Negative) Urine Blood (Negative) Urine Nitrite (Negative) Urine Bilirubin (Negative) Urine Urobilinogen (Negative) Ur Leukocyte Esterase (Negative) Urine WBC (Auto) (0-5) /hpf Urine RBC (Auto) (0-2) /hpf U Hyaline Cast (Auto) (0-2) /lpf U Epithel Cells (Auto) (0-2) /hpf Urine Bacteria (Auto) (None Seen) 08/08/23 08/08/23 08/08/23 Range/Units 16:44 11:25 07:13 WBC (4.8-10.8) K/ul RBC (4.20-5.40) M/uL Hgb (12.0-16.0) g/dl Hct (37.0-47.0) % MCV (80.0-100.0) fL MCH (25.0-34.0) pg MCHC (32.0-36.0) g/dL RDW Std Deviation (36.4-46.3) fL RDW Coeff of Joshua (11.5-14.5) % Plt Count (130-400) K/uL MPV (9.4-12.4) fL Immature Gran % (Auto) % Neut % (Auto) % Lymph % (Auto) % [place] % (Auto) % Eos % (Auto) % Baso % (Auto) % Neut # (Auto) (1.40-6.50) K/uL Lymph # (Auto) (1.20-3.40) K/uL [place] # (Auto) (0.11-0.59) K/uL Eos # (Auto) (0.00-0.50) K/uL Baso # (Auto) (0.00-0.20) K/uL Immature Gran # (Auto) (0.01-0.20) K/uL Absolute Nucleated RBC (0.00-0.12) K/uL Nucleated RBC % (auto) % Polychromasia Anisocytosis Sodium (136-145) mmol/L Potassium (3.5-5.1) mmol/L Chloride (98-107) mmol/L Carbon Dioxide (21-32) mmol/L Anion Gap (3-11) BUN (6-23) mg/dl Creatinine (0.6-1.2) mg/dl Est Cr Clr Drug Dosing ml/min Est GFR ( Amer) ml/min Est GFR (Non-Af Amer) ml/min BUN/Creatinine Ratio (10-20) Glucose (70-99(Fasting)) mg/dl POC Glucose 136 H 147 H 108 H (70-99) mg/dl Estimat Average Glucose mg/dl Hemoglobin A1c (4.5-5.6) % Calcium (8.6-10.3) mg/dl Phosphorus (2.5-4.9) mg/dl Magnesium (1.7-2.4) mg/dl Iron (35-150) mcg/dl TIBC (250-450) mcg/dl Unsaturated IBC (155-355) mcg/dl Transferrin % Sat (15-50) % Ferritin (8-388) ng/ml Total Bilirubin (0.2-1.0) mg/dl AST (13-39) U/L ALT (7-52) U/L Alkaline Phosphatase (34-104) U/L Total Protein (6.0-8.3) gm/dl Albumin (3.4-5.0) gm/dl Globulin (2.5-4.0) gm/dl Albumin/Globulin Ratio (0.9-2) Vitamin B12 (180-914) pg/ml Folate (>5.38) ng/ml Urine Color Urine Appearance (Clear) Urine pH (4.5-7.5) Ur Specific [place] (1.000-1.030) Urine Protein (Negative) Urine Glucose (UA) (Negative) Urine Ketones (Negative) Urine Blood (Negative) Urine Nitrite (Negative) Urine Bilirubin (Negative) Urine Urobilinogen (Negative) Ur Leukocyte Esterase (Negative) Urine WBC (Auto) (0-5) /hpf Urine RBC (Auto) (0-2) /hpf U Hyaline Cast (Auto) (0-2) /lpf U Epithel Cells (Auto) (0-2) /hpf Urine Bacteria (Auto) (None Seen) 08/07/23 08/07/23 08/07/23 Range/Units 21:02 16:33 11:29 WBC (4.8-10.8) K/ul RBC (4.20-5.40) M/uL Hgb (12.0-16.0) g/dl Hct (37.0-47.0) % MCV (80.0-100.0) fL MCH (25.0-34.0) pg MCHC (32.0-36.0) g/dL RDW Std Deviation (36.4-46.3) fL RDW Coeff of Joshua (11.5-14.5) % Plt Count (130-400) K/uL MPV (9.4-12.4) fL Immature Gran % (Auto) % Neut % (Auto) % Lymph % (Auto) % [place] % (Auto) % Eos % (Auto) % Baso % (Auto) % Neut # (Auto) (1.40-6.50) K/uL Lymph # (Auto) (1.20-3.40) K/uL [place] # (Auto) (0.11-0.59) K/uL Eos # (Auto) (0.00-0.50) K/uL Baso # (Auto) (0.00-0.20) K/uL Immature Gran # (Auto) (0.01-0.20) K/uL Absolute Nucleated RBC (0.00-0.12) K/uL Nucleated RBC % (auto) % Polychromasia Anisocytosis Sodium (136-145) mmol/L Potassium (3.5-5.1) mmol/L Chloride (98-107) mmol/L Carbon Dioxide (21-32) mmol/L Anion Gap (3-11) BUN (6-23) mg/dl Creatinine (0.6-1.2) mg/dl Est Cr Clr Drug Dosing ml/min Est GFR ( Amer) ml/min Est GFR (Non-Af Amer) ml/min BUN/Creatinine Ratio (10-20) Glucose (70-99(Fasting)) mg/dl POC Glucose 156 H 164 H 161 H (70-99) mg/dl Estimat Average Glucose mg/dl Hemoglobin A1c (4.5-5.6) % Calcium (8.6-10.3) mg/dl Phosphorus (2.5-4.9) mg/dl Magnesium (1.7-2.4) mg/dl Iron (35-150) mcg/dl TIBC (250-450) mcg/dl Unsaturated IBC (155-355) mcg/dl Transferrin % Sat (15-50) % Ferritin (8-388) ng/ml Total Bilirubin (0.2-1.0) mg/dl AST (13-39) U/L ALT (7-52) U/L Alkaline Phosphatase (34-104) U/L Total Protein (6.0-8.3) gm/dl Albumin (3.4-5.0) gm/dl Globulin (2.5-4.0) gm/dl Albumin/Globulin Ratio (0.9-2) Vitamin B12 (180-914) pg/ml Folate (>5.38) ng/ml Urine Color Urine Appearance (Clear) Urine pH (4.5-7.5) Ur Specific [place] (1.000-1.030) Urine Protein (Negative) Urine Glucose (UA) (Negative) Urine Ketones (Negative) Urine Blood (Negative) Urine Nitrite (Negative) Urine Bilirubin (Negative) Urine Urobilinogen (Negative) Ur Leukocyte Esterase (Negative) Urine WBC (Auto) (0-5) /hpf Urine RBC (Auto) (0-2) /hpf U Hyaline Cast (Auto) (0-2) /lpf U Epithel Cells (Auto) (0-2) /hpf Urine Bacteria (Auto) (None Seen) 08/07/23 08/06/23 08/06/23 Range/Units 07:47 20:53 16:20 WBC (4.8-10.8) K/ul RBC (4.20-5.40) M/uL Hgb (12.0-16.0) g/dl Hct (37.0-47.0) % MCV (80.0-100.0) fL MCH (25.0-34.0) pg MCHC (32.0-36.0) g/dL RDW Std Deviation (36.4-46.3) fL RDW Coeff of Joshua (11.5-14.5) % Plt Count (130-400) K/uL MPV (9.4-12.4) fL Immature Gran % (Auto) % Neut % (Auto) % Lymph % (Auto) % [place] % (Auto) % Eos % (Auto) % Baso % (Auto) % Neut # (Auto) (1.40-6.50) K/uL Lymph # (Auto) (1.20-3.40) K/uL [place] # (Auto) (0.11-0.59) K/uL Eos # (Auto) (0.00-0.50) K/uL Baso # (Auto) (0.00-0.20) K/uL Immature Gran # (Auto) (0.01-0.20) K/uL Absolute Nucleated RBC (0.00-0.12) K/uL Nucleated RBC % (auto) % Polychromasia Anisocytosis Sodium (136-145) mmol/L Potassium (3.5-5.1) mmol/L Chloride (98-107) mmol/L Carbon Dioxide (21-32) mmol/L Anion Gap (3-11) BUN (6-23) mg/dl Creatinine (0.6-1.2) mg/dl Est Cr Clr Drug Dosing ml/min Est GFR ( Amer) ml/min Est GFR (Non-Af Amer) ml/min BUN/Creatinine Ratio (10-20) Glucose (70-99(Fasting)) mg/dl POC Glucose 145 H 162 H 131 H (70-99) mg/dl Estimat Average Glucose mg/dl Hemoglobin A1c (4.5-5.6) % Calcium (8.6-10.3) mg/dl Phosphorus (2.5-4.9) mg/dl Magnesium (1.7-2.4) mg/dl Iron (35-150) mcg/dl TIBC (250-450) mcg/dl Unsaturated IBC (155-355) mcg/dl Transferrin % Sat (15-50) % Ferritin (8-388) ng/ml Total Bilirubin (0.2-1.0) mg/dl AST (13-39) U/L ALT (7-52) U/L Alkaline Phosphatase (34-104) U/L Total Protein (6.0-8.3) gm/dl Albumin (3.4-5.0) gm/dl Globulin (2.5-4.0) gm/dl Albumin/Globulin Ratio (0.9-2) Vitamin B12 (180-914) pg/ml Folate (>5.38) ng/ml Urine Color Urine Appearance (Clear) Urine pH (4.5-7.5) Ur Specific [place] (1.000-1.030) Urine Protein (Negative) Urine Glucose (UA) (Negative) Urine Ketones (Negative) Urine Blood (Negative) Urine Nitrite (Negative) Urine Bilirubin (Negative) Urine Urobilinogen (Negative) Ur Leukocyte Esterase (Negative) Urine WBC (Auto) (0-5) /hpf Urine RBC (Auto) (0-2) /hpf U Hyaline Cast (Auto) (0-2) /lpf U Epithel Cells (Auto) (0-2) /hpf Urine Bacteria (Auto) (None Seen) 08/06/23 08/06/23 08/06/23 Range/Units 11:42 07:24 07:22 WBC 1.41 L (4.8-10.8) K/ul RBC 2.88 L (4.20-5.40) M/uL Hgb 8.3 L (12.0-16.0) g/dl Hct 24.6 L (37.0-47.0) % MCV 85.4 (80.0-100.0) fL MCH 28.8 (25.0-34.0) pg MCHC 33.7 (32.0-36.0) g/dL RDW Std Deviation 56.0 H (36.4-46.3) fL RDW Coeff of Joshua 19.1 H (11.5-14.5) % Plt Count 212 (130-400) K/uL MPV 9.4 (9.4-12.4) fL Immature Gran % (Auto) 2.1 % Neut % (Auto) 12.1 % Lymph % (Auto) 61.0 % [place] % (Auto) 23.4 % Eos % (Auto) 0.0 % Baso % (Auto) 1.4 % Neut # (Auto) 0.17 L* (1.40-6.50) K/uL Lymph # (Auto) 0.86 L (1.20-3.40) K/uL [place] # (Auto) 0.33 (0.11-0.59) K/uL Eos # (Auto) 0.00 (0.00-0.50) K/uL Baso # (Auto) 0.02 (0.00-0.20) K/uL Immature Gran # (Auto) 0.03 (0.01-0.20) K/uL Absolute Nucleated RBC 0.05 (0.00-0.12) K/uL Nucleated RBC % (auto) 3.5 % Polychromasia 1+ Anisocytosis Sodium (136-145) mmol/L Potassium (3.5-5.1) mmol/L Chloride (98-107) mmol/L Carbon Dioxide (21-32) mmol/L Anion Gap (3-11) BUN (6-23) mg/dl Creatinine (0.6-1.2) mg/dl Est Cr Clr Drug Dosing ml/min Est GFR ( Amer) ml/min Est GFR (Non-Af Amer) ml/min BUN/Creatinine Ratio (10-20) Glucose (70-99(Fasting)) mg/dl POC Glucose 129 H 115 H (70-99) mg/dl Estimat Average Glucose mg/dl Hemoglobin A1c (4.5-5.6) % Calcium (8.6-10.3) mg/dl Phosphorus (2.5-4.9) mg/dl Magnesium (1.7-2.4) mg/dl Iron (35-150) mcg/dl TIBC (250-450) mcg/dl Unsaturated IBC (155-355) mcg/dl Transferrin % Sat (15-50) % Ferritin (8-388) ng/ml Total Bilirubin (0.2-1.0) mg/dl AST (13-39) U/L ALT (7-52) U/L Alkaline Phosphatase (34-104) U/L Total Protein (6.0-8.3) gm/dl Albumin (3.4-5.0) gm/dl Globulin (2.5-4.0) gm/dl Albumin/Globulin Ratio (0.9-2) Vitamin B12 (180-914) pg/ml Folate (>5.38) ng/ml Urine Color Urine Appearance (Clear) Urine pH (4.5-7.5) Ur Specific [place] (1.000-1.030) Urine Protein (Negative) Urine Glucose (UA) (Negative) Urine Ketones (Negative) Urine Blood (Negative) Urine Nitrite (Negative) Urine Bilirubin (Negative) Urine Urobilinogen (Negative) Ur Leukocyte Esterase (Negative) Urine WBC (Auto) (0-5) /hpf Urine RBC (Auto) (0-2) /hpf U Hyaline Cast (Auto) (0-2) /lpf U Epithel Cells (Auto) (0-2) /hpf Urine Bacteria (Auto) (None Seen) 08/05/23 08/05/23 08/05/23 Range/Units 20:20 16:34 11:30 WBC (4.8-10.8) K/ul RBC (4.20-5.40) M/uL Hgb (12.0-16.0) g/dl Hct (37.0-47.0) % MCV (80.0-100.0) fL MCH (25.0-34.0) pg MCHC (32.0-36.0) g/dL RDW Std Deviation (36.4-46.3) fL RDW Coeff of Joshua (11.5-14.5) % Plt Count (130-400) K/uL MPV (9.4-12.4) fL Immature Gran % (Auto) % Neut % (Auto) % Lymph % (Auto) % [place] % (Auto) % Eos % (Auto) % Baso % (Auto) % Neut # (Auto) (1.40-6.50) K/uL Lymph # (Auto) (1.20-3.40) K/uL [place] # (Auto) (0.11-0.59) K/uL Eos # (Auto) (0.00-0.50) K/uL Baso # (Auto) (0.00-0.20) K/uL Immature Gran # (Auto) (0.01-0.20) K/uL Absolute Nucleated RBC (0.00-0.12) K/uL Nucleated RBC % (auto) % Polychromasia Anisocytosis Sodium (136-145) mmol/L Potassium (3.5-5.1) mmol/L Chloride (98-107) mmol/L Carbon Dioxide (21-32) mmol/L Anion Gap (3-11) BUN (6-23) mg/dl Creatinine (0.6-1.2) mg/dl Est Cr Clr Drug Dosing ml/min Est GFR ( Amer) ml/min Est GFR (Non-Af Amer) ml/min BUN/Creatinine Ratio (10-20) Glucose (70-99(Fasting)) mg/dl POC Glucose 197 H 131 H 135 H (70-99) mg/dl Estimat Average Glucose mg/dl Hemoglobin A1c (4.5-5.6) % Calcium (8.6-10.3) mg/dl Phosphorus (2.5-4.9) mg/dl Magnesium (1.7-2.4) mg/dl Iron (35-150) mcg/dl TIBC (250-450) mcg/dl Unsaturated IBC (155-355) mcg/dl Transferrin % Sat (15-50) % Ferritin (8-388) ng/ml Total Bilirubin (0.2-1.0) mg/dl AST (13-39) U/L ALT (7-52) U/L Alkaline Phosphatase (34-104) U/L Total Protein (6.0-8.3) gm/dl Albumin (3.4-5.0) gm/dl Globulin (2.5-4.0) gm/dl Albumin/Globulin Ratio (0.9-2) Vitamin B12 (180-914) pg/ml Folate (>5.38) ng/ml Urine Color Urine Appearance (Clear) Urine pH (4.5-7.5) Ur Specific [place] (1.000-1.030) Urine Protein (Negative) Urine Glucose (UA) (Negative) Urine Ketones (Negative) Urine Blood (Negative) Urine Nitrite (Negative) Urine Bilirubin (Negative) Urine Urobilinogen (Negative) Ur Leukocyte Esterase (Negative) Urine WBC (Auto) (0-5) /hpf Urine RBC (Auto) (0-2) /hpf U Hyaline Cast (Auto) (0-2) /lpf U Epithel Cells (Auto) (0-2) /hpf Urine Bacteria (Auto) (None Seen) 08/05/23 08/04/23 08/04/23 Range/Units 07:43 20:21 16:38 WBC (4.8-10.8) K/ul RBC (4.20-5.40) M/uL Hgb (12.0-16.0) g/dl Hct (37.0-47.0) % MCV (80.0-100.0) fL MCH (25.0-34.0) pg MCHC (32.0-36.0) g/dL RDW Std Deviation (36.4-46.3) fL RDW Coeff of Joshua (11.5-14.5) % Plt Count (130-400) K/uL MPV (9.4-12.4) fL Immature Gran % (Auto) % Neut % (Auto) % Lymph % (Auto) % [place] % (Auto) % Eos % (Auto) % Baso % (Auto) % Neut # (Auto) (1.40-6.50) K/uL Lymph # (Auto) (1.20-3.40) K/uL [place] # (Auto) (0.11-0.59) K/uL Eos # (Auto) (0.00-0.50) K/uL Baso # (Auto) (0.00-0.20) K/uL Immature Gran # (Auto) (0.01-0.20) K/uL Absolute Nucleated RBC (0.00-0.12) K/uL Nucleated RBC % (auto) % Polychromasia Anisocytosis Sodium (136-145) mmol/L Potassium (3.5-5.1) mmol/L Chloride (98-107) mmol/L Carbon Dioxide (21-32) mmol/L Anion Gap (3-11) BUN (6-23) mg/dl Creatinine (0.6-1.2) mg/dl Est Cr Clr Drug Dosing ml/min Est GFR ( Amer) ml/min Est GFR (Non-Af Amer) ml/min BUN/Creatinine Ratio (10-20) Glucose (70-99(Fasting)) mg/dl POC Glucose 173 H 154 H 183 H (70-99) mg/dl Estimat Average Glucose mg/dl Hemoglobin A1c (4.5-5.6) % Calcium (8.6-10.3) mg/dl Phosphorus (2.5-4.9) mg/dl Magnesium (1.7-2.4) mg/dl Iron (35-150) mcg/dl TIBC (250-450) mcg/dl Unsaturated IBC (155-355) mcg/dl Transferrin % Sat (15-50) % Ferritin (8-388) ng/ml Total Bilirubin (0.2-1.0) mg/dl AST (13-39) U/L ALT (7-52) U/L Alkaline Phosphatase (34-104) U/L Total Protein (6.0-8.3) gm/dl Albumin (3.4-5.0) gm/dl Globulin (2.5-4.0) gm/dl Albumin/Globulin Ratio (0.9-2) Vitamin B12 (180-914) pg/ml Folate (>5.38) ng/ml Urine Color Urine Appearance (Clear) Urine pH (4.5-7.5) Ur Specific [place] (1.000-1.030) Urine Protein (Negative) Urine Glucose (UA) (Negative) Urine Ketones (Negative) Urine Blood (Negative) Urine Nitrite (Negative) Urine Bilirubin (Negative) Urine Urobilinogen (Negative) Ur Leukocyte Esterase (Negative) Urine WBC (Auto) (0-5) /hpf Urine RBC (Auto) (0-2) /hpf U Hyaline Cast (Auto) (0-2) /lpf U Epithel Cells (Auto) (0-2) /hpf Urine Bacteria (Auto) (None Seen) 08/04/23 08/04/23 08/04/23 Range/Units 16:00 11:34 08:04 WBC 1.38 L (4.8-10.8) K/ul RBC 2.71 L (4.20-5.40) M/uL Hgb 7.7 L (12.0-16.0) g/dl Hct 22.4 L (37.0-47.0) % MCV 82.7 (80.0-100.0) fL MCH 28.4 (25.0-34.0) pg MCHC 34.4 (32.0-36.0) g/dL RDW Std Deviation 53.1 H (36.4-46.3) fL RDW Coeff of Joshua 18.0 H (11.5-14.5) % Plt Count 164 (130-400) K/uL MPV 9.2 L (9.4-12.4) fL Immature Gran % (Auto) 1.4 % Neut % (Auto) 28.3 % Lymph % (Auto) 55.1 % [place] % (Auto) 10.9 % Eos % (Auto) 0.0 % Baso % (Auto) 4.3 % Neut # (Auto) 0.39 L* (1.40-6.50) K/uL Lymph # (Auto) 0.76 L (1.20-3.40) K/uL [place] # (Auto) 0.15 (0.11-0.59) K/uL Eos # (Auto) 0.00 (0.00-0.50) K/uL Baso # (Auto) 0.06 (0.00-0.20) K/uL Immature Gran # (Auto) 0.02 (0.01-0.20) K/uL Absolute Nucleated RBC 0.03 (0.00-0.12) K/uL Nucleated RBC % (auto) 2.2 % Polychromasia 1+ Anisocytosis Present Sodium 134 L (136-145) mmol/L Potassium 3.9 (3.5-5.1) mmol/L Chloride 106 (98-107) mmol/L Carbon Dioxide 21 (21-32) mmol/L Anion Gap 7 (3-11) BUN 15 (6-23) mg/dl Creatinine 0.86 (0.6-1.2) mg/dl Est Cr Clr Drug Dosing 99.6 ml/min Est GFR ( Amer) 93.9 ml/min Est GFR (Non-Af Amer) 81.0 ml/min BUN/Creatinine Ratio 17.4 (10-20) Glucose 147 H (70-99(Fasting)) mg/dl POC Glucose 181 H (70-99) mg/dl Estimat Average Glucose 169 mg/dl Hemoglobin A1c 7.5 H (4.5-5.6) % Calcium 8.3 L (8.6-10.3) mg/dl Phosphorus 3.0 (2.5-4.9) mg/dl Magnesium 1.5 L (1.7-2.4) mg/dl Iron 69 (35-150) mcg/dl TIBC 182 L (250-450) mcg/dl Unsaturated IBC 113 L (155-355) mcg/dl Transferrin % Sat 38 (15-50) % Ferritin 1368.3 H (8-388) ng/ml Total Bilirubin 0.6 (0.2-1.0) mg/dl AST 17 (13-39) U/L ALT 14 (7-52) U/L Alkaline Phosphatase 135 H (34-104) U/L Total Protein 6.0 (6.0-8.3) gm/dl Albumin 3.2 L (3.4-5.0) gm/dl Globulin 2.8 (2.5-4.0) gm/dl Albumin/Globulin Ratio 1.1 (0.9-2) Vitamin B12 1192 H (180-914) pg/ml Folate 4.07 L (>5.38) ng/ml Urine Color Yellow Urine Appearance Clear (Clear) Urine pH 5.5 (4.5-7.5) Ur Specific [place] 1.019 (1.000-1.030) Urine Protein 1+ H (Negative) Urine Glucose (UA) Negative (Negative) Urine Ketones Trace H (Negative) Urine Blood 3+ H (Negative) Urine Nitrite Negative (Negative) Urine Bilirubin Negative (Negative) Urine Urobilinogen Negative (Negative) Ur Leukocyte Esterase Trace H (Negative) Urine WBC (Auto) 0-5 (0-5) /hpf Urine RBC (Auto) >20 H (0-2) /hpf U Hyaline Cast (Auto) 0-2 (0-2) /lpf U Epithel Cells (Auto) 0-2 (0-2) /hpf Urine Bacteria (Auto) None Seen (None Seen) 08/04/23 Range/Units 07:51 WBC (4.8-10.8) K/ul RBC (4.20-5.40) M/uL Hgb (12.0-16.0) g/dl Hct (37.0-47.0) % MCV (80.0-100.0) fL MCH (25.0-34.0) pg MCHC (32.0-36.0) g/dL RDW Std Deviation (36.4-46.3) fL RDW Coeff of Joshua (11.5-14.5) % Plt Count (130-400) K/uL MPV (9.4-12.4) fL Immature Gran % (Auto) % Neut % (Auto) % Lymph % (Auto) % [place] % (Auto) % Eos % (Auto) % Baso % (Auto) % Neut # (Auto) (1.40-6.50) K/uL Lymph # (Auto) (1.20-3.40) K/uL [place] # (Auto) (0.11-0.59) K/uL Eos # (Auto) (0.00-0.50) K/uL Baso # (Auto) (0.00-0.20) K/uL Immature Gran # (Auto) (0.01-0.20) K/uL Absolute Nucleated RBC (0.00-0.12) K/uL Nucleated RBC % (auto) % Polychromasia Anisocytosis Sodium (136-145) mmol/L Potassium (3.5-5.1) mmol/L Chloride (98-107) mmol/L Carbon Dioxide (21-32) mmol/L Anion Gap (3-11) BUN (6-23) mg/dl Creatinine (0.6-1.2) mg/dl Est Cr Clr Drug Dosing ml/min Est GFR ( Amer) ml/min Est GFR (Non-Af Amer) ml/min BUN/Creatinine Ratio (10-20) Glucose (70-99(Fasting)) mg/dl POC Glucose 160 H (70-99) mg/dl Estimat Average Glucose mg/dl Hemoglobin A1c (4.5-5.6) % Calcium (8.6-10.3) mg/dl Phosphorus (2.5-4.9) mg/dl Magnesium (1.7-2.4) mg/dl Iron (35-150) mcg/dl TIBC (250-450) mcg/dl Unsaturated IBC (155-355) mcg/dl Transferrin % Sat (15-50) % Ferritin (8-388) ng/ml Total Bilirubin (0.2-1.0) mg/dl AST (13-39) U/L ALT (7-52) U/L Alkaline Phosphatase (34-104) U/L Total Protein (6.0-8.3) gm/dl Albumin (3.4-5.0) gm/dl Globulin (2.5-4.0) gm/dl Albumin/Globulin Ratio (0.9-2) Vitamin B12 (180-914) pg/ml Folate (>5.38) ng/ml Urine Color Urine Appearance (Clear) Urine pH (4.5-7.5) Ur Specific [place] (1.000-1.030) Urine Protein (Negative) Urine Glucose (UA) (Negative) Urine Ketones (Negative) Urine Blood (Negative) Urine Nitrite (Negative) Urine Bilirubin (Negative) Urine Urobilinogen (Negative) Ur Leukocyte Esterase (Negative) Urine WBC (Auto) (0-5) /hpf Urine RBC (Auto) (0-2) /hpf U Hyaline Cast (Auto) (0-2) /lpf U Epithel Cells (Auto) (0-2) /hpf Urine Bacteria (Auto) (None Seen) Diagnostic Findings Chest X-Ray 08/02/23 17:06 XR chest 1V portable CLINICAL HISTORY: Chest pain, nonspecific TECHNIQUE: Single frontal radiograph of the chest was obtained. Comparison: Comparison is made to chest radiograph 07/13/[address] abdomen pelvis 07/13/2023 FINDINGS: A port catheter is seen. Peripheral density in the right midlung is again seen. The lungs are clear. No evidence of pleural effusion or pneumothorax. IMPRESSION: Peripheral right airspace opacities are stable from prior exam. Otherwise no acute abnormalities. ACT 112: Negative or not required by law. Electronically signed by: Mariano Guerrier M.D. 08/02/2023 6:[address] 08/03/23 09:28 CT chest diagnostic wo con CT DOSE: 686.56 mGy.cm CLINICAL HISTORY: 48 years-old Female with r/o acute pneumonia, opacities on xray. Acute shortness of breath in a patient with history of breast cancer. TECHNIQUE: Multiaxial CT images of the chest were performed without contrast. A dose lowering technique was utilized adhering to the principles of ALARA. COMPARISON: Chest radiograph 08/02/2023, CTA chest 04/19/2023. FINDINGS: Heterogeneous thyroid with ill-defined subcentimeter nodules. Left subclavian Agkuml-k-Oerw catheter. Trace pericardial effusion. Moderate coronary artery calcifications. Trace pleural effusions. Postoperative changes of the left breast. No pneumothorax or overt pulmonary edema. Peripheral subpleural consolidation of the right lung measures up to 10 cm within the right lower lobe on image 139 and 10 cm within the peripheral right lung on image 112. Several of the irregular nodular areas of consolidation within the right lung have resolved from the prior chest CT. Mild linear bibasilar atelectasis versus scarring. 3 mm solid nodule within the right middle lobe on image 124 is unchanged. 2 mm fissural nodule within the right lung on image 102 has decreased in size from prior suggestive of a lymph node. No new or enlarging pulmonary nodules. Central airways are patent. Postoperative changes of the left lung. Splenomegaly. Cholecystectomy. No acute upper abdominal abnormality. Extensive osseous metastasis redemonstrated which are mixed osteoblastic and osteolytic. Chronic pathologic thoracic compression deformities are noted with progressive vertebral body height loss at T7 and T8. There may also be epidural extension of disease within the thoracic spine. Pathologic fracturing of the sternal manubrium. IMPRESSION: 1. Peripheral subpleural consolidation throughout the right lung is likely infectious or inflammatory. 2. Trace pleural effusions. 3. No new or progressive lymphadenopathy. 4. 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 There is progressive vertebral body height loss involving the T7 and T8 vertebral bodies without significant retropulsion. There is also pathologic fracturing of the sternal manubrium. ACT 112: Negative or not required by law. Dictated: 08/03/2023 12:35 PM Transcribed: 08/03/2023 1:07 PM Geremias [id number] GUICHO_Mohit [id number] Electronically signed by: Ruddy Chen M.D. 08/03/2023 1:09 PM PG Care Time/CCT Total # of Minutes Spent Total Time Spent with Patient: Total time spent is greater than 50% in coordination of care (as documented) at patient's floor/unit and/or counseling patient: I spent 75 minutes overall addressing this case: 10 min in medical data review/discussion with referring provider(s) and/or preparation for the visit 15 min in direct interaction with the patient/exam 30 min in Advance Care Planning/Goals of Care discussions as detailed above in note (must be >16min) 10 min in subsequent review and synthesis of assessment and plan 10 min communicating with other providers regarding the patient's case: Advanced Care Planning 13942 Advanced Care Planning 30 Min 78840 Advanced Care Planning Additional 30 Min [place] [address] SUB INP/OBS CARE 3/50MIN Patient Type Established Medical Decision Making High Complexity Diagnoses Cancer related pain G89.3 Therapeutic opioid-induced constipation (OIC) K59.03; T40.2X5A Intractable nausea and vomiting R11.2 Severe episode of recurrent major depressive disorder, without psychotic features F33.2 Active/Remission status: currently active Depression Type: major depressive disorder Major depression episode severity: severe Major depression recurrence: recurrent Psychotic features: without psychotic features Advanced care planning/counseling discussion Z71.89 Palliative care by specialist Z51.5 Carcinoma of breast metastatic to bone, unspecified laterality C50.919; C79.51 Laterality: unspecified laterality Additional Codes Advanced Care Planning - 55099 Advanced Care Planning 30 Min: 90185 Advanced Care Planning 30 Min ([id number]) Advanced Care Planning - 98892 Advanced Care Planning Additional 30 Min: 45970 Advanced Care Planning Additional 30 Min ([id number]) (4) Depression Active/Remission status: currently active Depression Type: major depressive disorder Major depression episode severity: severe Major depression recurrence: recurrent Psychotic features: without psychotic features Qualified Code(s): F33.2 - Major depressive disorder, recurrent severe without psychotic features (7) Breast cancer metastasized to bone Laterality: unspecified laterality Qualified Code(s): C50.919 - Malignant neoplasm of unspecified site of unspecified female breast; C79.51 - Secondary malignant neoplasm of bone
[2023-08-11] MEDS ORDERED: MINERAL OIL ENEMA 133 ML BTL PR PRN (09:46)
[2023-08-11] MEDS: DOCUSATE SODIUM/SENNA 50/8.6MG TAB PO STA (11:29)
[2023-08-11] MEDS: POLYETHYLENE (MIRALAX) 17 GM PACK PO SCH (11:29)
--- NOTE | 2023-08-11 16:07 | Hospitalist Progress Note ---
Date of Service August 11, 2023 Assessment & Plan (1) Weakness generalized: Plan: Continue PT OT Will benefit from rehab placement (2) Parainfluenza: Plan: Parainfluenza virus pneumonitis --Chest CT:Peripheral subpleural consolidation throughout the right lung is likely infectious or inflammatory. Trace pleural effusions. No new or progressive lymphadenopathy. 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 There is progressive vertebral body height loss involving the T7 and T8 vertebral bodies without significant retropulsion. There is also pathologic fracturing of the sternal manubrium. --Observation --Conservative management Procalcitonin 0.21 Saturating well on room air (3) Breast cancer metastasized to bone: Plan: Patient presenting by referral of palliative care for evaluation of generalized weakness. Patient with history of metastatic breast cancer, currently on chemotherapy, last treatment on 07/26/2023. Treatment canceled due to low hemoglobin. According to outpatient palliative care note, patient has had difficulty obtaining a walker, has been generally weak, and has very little family support at this time. Metastatic breast cancer Ongoing chemotherapy Follows with Dr. Vazquez Reports generalized body ache Continue pain medications as needed Continue PT OT: Recommends acute rehab Antiemetics as needed Appreciate oncology, palliative care input Case management to help with discharge planning Will need follow-up with oncology on discharge Fall precautions Antiemetics as needed (4) Anemia: Plan: Anemia of chronic disease S/P 1 unit PRBCs Folic acid deficiency Anemia workup reviewed No acute bleeding issues Monitor CBC (5) Type II diabetes mellitus: Plan: hgb a1c 9.3 05/2023 Lantus and Novolog SSI Obesity BMI 37 DVT Px SQ Lovenox CODE STATUS DNI DNR Disposition Rehab as able Admission and Anticipated Discharge Date Admission Date: August 02, 2023 Subjective Patient is seen and examined at bedside States having intermittent dizziness with change in position Also reports chronic intermittent nausea but no vomiting today Reports generalized body ache No other complaints Waiting for rehab placement Denies any chest pain, dyspnea Review of Systems Review of Systems: All systems reviewed & are unremarkable except as noted in Subjective Physical Exam Physical Exam: Physical Exam: Vitals signs as noted above General Appearance:Obese, no apparent distress, chronic ill appearing Head: normocephalic, Atraumatic Eyes: normal inspection, EOMI Neck: supple, Trachea midline Respiratory/Chest: Normal breath sounds, CTA, No accessory muscle use Cardiovascular: S1, S2, No murmur Abdomen/GI:Soft, Non tender, Bowel sounds present Extremities/Musculoskeletal:normal inspection, no edema Neurologic/Psych:AAOX3, grossly no focal neurological deficits Skin: normal color, warm Results & Data Results & Data Vital Signs (Past 12 Hours) Vital Signs Temp Pulse Resp BP Pulse Ox O2 Del Method 08/11/23 15:36 36.8 C 92 H 16 118/73 98 Room Air 08/11/23 08:00 Room Air 08/11/23 07:00 36.7 C 88 16 111/72 98 Room Air (3) Breast cancer metastasized to bone Laterality: unspecified laterality Qualified Code(s): C50.919 - Malignant neoplasm of unspecified site of unspecified female breast; C79.51 - Secondary malignant neoplasm of bone (5) Type II diabetes mellitus Diabetes mellitus complication status: with other specified complication 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
[2023-08-11] MEDS: DOCUSATE SODIUM/SENNA 50/8.6MG TAB PO SCH (21:48)
[2023-08-12 07:15] LABS: Hematocrit (blood only) 26.6 % (37.0-47.0); Hemoglobin 8.8 g/dl (12.0-16.0); Mean Corpuscular Hemoglobin 28.8 pg (25.0-34.0); Mean Corpuscular Hgb Conc 33.1 g/dL (32.0-36.0); Mean Corpuscular Volume 86.9 fL (80.0-100.0); Mean Platelet Volume 8.7 fL (9.4-12.4); Platelet Count 270 K/uL (130-400); RDW Coefficient of Variation 18.4 % (11.5-14.5); Red Blood Count 3.06 M/uL (4.20-5.40); White Blood Count 3.98 K/ul (4.8-10.8)
[2023-08-12 07:30] LABS: BUN Creatinine Ratio 28.9 (10-20); Calcium 8.7 mg/dl (8.6-10.3); Creatinine Clr Calc Pharmacy 112.8 ml/min; Est GFR (Non-African American) 94.1 ml/min; Potassium 4.3 mmol/L (3.5-5.1)
[2023-08-12] MEDS: FOLIC ACID 1 MG TAB PO SCH (08:19)
[2023-08-12] MEDS: HYDROmorphone INJ 1 MG/ML SYRINGE IV ONE (11:36)
--- NOTE | 2023-08-12 14:50 | Hospitalist Progress Note ---
Date of Service August 12, 2023 Assessment & Plan (1) Weakness generalized: Plan: Continue PT OT: Recommends acute rehab Insurance denied rehab placement Patient prefers to be discharged home with home health (2) Parainfluenza: Plan: Parainfluenza virus pneumonitis --Chest CT:Peripheral subpleural consolidation throughout the right lung is likely infectious or inflammatory. Trace pleural effusions. No new or progressive lymphadenopathy. 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 There is progressive vertebral body height loss involving the T7 and T8 vertebral bodies without significant retropulsion. There is also pathologic fracturing of the sternal manubrium. --Observation --Conservative management Procalcitonin 0.21 Saturating well on room air (3) Breast cancer metastasized to bone: Plan: Patient presenting by referral of palliative care for evaluation of generalized weakness. Patient with history of metastatic breast cancer, currently on chemotherapy, last treatment on 07/26/2023. Treatment canceled due to low hemoglobin. According to outpatient palliative care note, patient has had difficulty obtaining a walker, has been generally weak, and has very little family support at this time. Metastatic breast cancer Ongoing chemotherapy Follows with Dr. Vazquez Reports generalized body ache Continue pain medications as needed Continue PT OT: Recommends acute rehab Antiemetics as needed Appreciate oncology, palliative care input Case management to help with discharge planning Will need follow-up with oncology on discharge Fall precautions Antiemetics as needed Follows with palliative care for pain control (4) Anemia: Plan: Anemia of chronic disease S/P 1 unit PRBCs Folic acid deficiency Anemia workup reviewed No acute bleeding issues Monitor CBC (5) Type II diabetes mellitus: Plan: hgb a1c 9.3 05/2023 Lantus and Novolog SSI Obesity BMI 37 DVT Px SQ Lovenox CODE STATUS DNI DNR Disposition Home with home health Admission and Anticipated Discharge Date Admission Date: August 02, 2023 Subjective Patient is seen and examined at bedside Reports chronic pain No new complaints Patient prefers to be discharged home today Denies any chest pain, dyspnea, vomiting Review of Systems Review of Systems: All systems reviewed & are unremarkable except as noted in Subjective Physical Exam Physical Exam: Physical Exam: Vitals signs as noted above General Appearance:Obese, no apparent distress, chronic ill appearing Head: normocephalic, Atraumatic Eyes: normal inspection, EOMI Neck: supple, Trachea midline Respiratory/Chest: Normal breath sounds, CTA, No accessory muscle use Cardiovascular: S1, S2, No murmur Abdomen/GI:Soft, Non tender, Bowel sounds present Extremities/Musculoskeletal:normal inspection, no edema Neurologic/Psych:AAOX3, grossly no focal neurological deficits Skin: normal color, warm Results & Data Results & Data Vital Signs (Past 12 Hours) Vital Signs Temp Pulse Resp BP Pulse Ox O2 Del Method 08/12/23 08:55 94 H 120/80 08/12/23 07:17 36.7 C 88 16 94/62 L 95 Room Air Laboratory Results Short CBC 08/12/23 Range/Units 06:23 WBC 3.98 L (4.8-10.8) K/ul Hgb 8.8 L (12.0-16.0) g/dl Hct 26.6 L (37.0-47.0) % Plt Count 270 (130-400) K/uL BMP 08/12/23 06:23 Sodium 137 Potassium 4.3 Chloride 106 Carbon Dioxide 25 BUN 22 Creatinine 0.76 Glucose 91 Calcium 8.7 (3) Breast cancer metastasized to bone Laterality: unspecified laterality Qualified Code(s): C50.919 - Malignant neoplasm of unspecified site of unspecified female breast; C79.51 - Secondary malignant neoplasm of bone (5) Type II diabetes mellitus Diabetes mellitus complication status: with other specified complication 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
--- NOTE | 2023-08-12 14:59 | Discharge Summary ---
Date of Service August 12, 2023 Admission HPI Per Admitting Provider 48-year-old female with PMH metastatic breast cancer on chemotherapy, DM type II on insulin, and other problems listed below who presented to the ED for evaluation of generalized weakness. Patient reports her last chemotherapy was 1 week ago. She was seen in the oncology office today and due to low hemoglobin, she reports that her chemotherapy was held. Reports that she is to have a blood transfusion tomorrow. Patient was also evaluated by palliative care as an outpatient. She has been having generalized weakness, unable to obtain a walker, and limited family support at home. She was therefore referred to the ED for admission. Patient reports she hasn't been feeling too bad lately. Reports her pain and nausea is fairly well controlled. She had been able to tolerate food. Reports feeling cold most of the time however that is not unusual for her. No fever. Denies chest pain and shortness of breath. No cough or sputum production. Denies urinary symptoms. In the ED, labs show Hgb 8.1. Patient is hemodynamically stable. CXR shows peripheral right airspace opacity that are unchanged from prior exam. Patient was given IV cefepime, IV Dilaudid, IVF. Admission Exam Per Admitting Provider VS noted and reviewed oriented x 3, not in distress, speaks in sentences with no effort nor accessory muscle use normal rate, regular rhythm, no murmurs (+) mild rhonchi non distended, soft, nontender no bipedal edema, erythema, warmth no neuro deficits Principal Diagnosis Metastatic breast cancer Parainfluenza infection Anemia of chronic disease Folic acid deficiency Discharge Data Allergies Allergy/AdvReac Type Severity Reaction Status Date / Time No Known Allergies Allergy Verified 08/02/23 18:13 Consultations 08/02/23 21:25 Consult Hematology Routine Procedures Performed Laboratory Results WBC 3.98 K/ul (4.8-10.8) L 08/12/23 06:23 RBC 3.06 M/uL (4.20-5.40) L 08/12/23 06:23 Hgb 8.8 g/dl (12.0-16.0) L 08/12/23 06:23 Hct 26.6 % (37.0-47.0) L 08/12/23 06:23 MCV 86.9 fL (80.0-100.0) 08/12/23 06:23 MCH 28.8 pg (25.0-34.0) 08/12/23 06: MCHC 33.1 g/dL (32.0-36.0) 08/12/23 06: RDW Std Deviation 58.0 fL (36.4-46.3) H 08/12/23 06: RDW Coeff of Joshua 18.4 % (11.5-14.5) H 08/12/23 06: Plt Count 270 K/uL (130-400) 08/12/23 06:23 MPV 8.7 fL (9.4-12.4) L 08/12/23 06: Immature Gran % (Auto) 2.1 % 08/06/23 07:24 Neut % (Auto) 12.1 % 08/06/23 07:24 Lymph % (Auto) 61.0 % 08/06/23 07:24 [place] % (Auto) 23.4 % 08/06/23 07:24 Eos % (Auto) 0.0 % 08/06/23 07:24 Baso % (Auto) 1.4 % 08/06/23 07:24 Neut # (Auto) 0.17 K/uL (1.40-6.50) L* 08/06/23 07:24 Lymph # (Auto) 0.86 K/uL (1.20-3.40) L 08/06/23 07:24 [place] # (Auto) 0.33 K/uL (0.11-0.59) 08/06/23 07:24 Eos # (Auto) 0.00 K/uL (0.00-0.50) 08/06/23 07:24 Baso # (Auto) 0.02 K/uL (0.00-0.20) 08/06/23 07:24 Immature Gran # (Auto) 0.03 K/uL (0.01-0.20) 08/06/23 07:24 Absolute Nucleated RBC 0.05 K/uL (0.00-0.12) 08/06/23 07:24 Nucleated RBC % (auto) 3.5 % 08/06/23 07:24 RBC Morphology Unremarkable 08/02/23 17:18 Polychromasia 1+ 08/06/23 07:24 Anisocytosis Present 08/04/23 08:04 PT 11.5 Seconds (9.0-12.0) 08/02/23 17:18 INR 1.1 (0.9-1.1) 08/02/23 17:18 APTT 25 Seconds (21-31) 08/02/23 17:18 PTT Ratio 0.9 08/02/23 17:18 VBG pH 7.44 (7.36-7.41) H 08/02/23 17:18 VBG pCO2 32 mmHg (38-50) L 08/02/23 17:18 VBG pO2 31 mmHg 08/02/23 17:18 VBG HCO3 22 mmol/L 08/02/23 17:18 VBG O2 Saturation < 60.0 % 08/02/23 17:18 VBG Base Excess -1.6 mEq/L 08/02/23 17:18 Sodium 137 mmol/L (136-145) 08/12/23 06:23 Potassium 4.3 mmol/L (3.5-5.1) 08/12/23 06:23 Chloride 106 mmol/L (98-107) 08/12/23 06:23 Carbon Dioxide 25 mmol/L (21-32) 08/12/23 06:23 Anion Gap 6 (3-11) 08/12/23 06:23 BUN 22 mg/dl (6-23) 08/12/23 06:23 Creatinine 0.76 mg/dl (0.6-1.2) 08/12/23 06:23 Est Cr Clr Drug Dosing 112.8 ml/min 08/12/23 06:23 Est GFR ( Amer) 109.0 ml/min 08/12/23 06:23 Est GFR (Non-Af Amer) 94.1 ml/min 08/12/23 06:23 BUN/Creatinine Ratio 28.9 (10-20) H 08/12/23 06:23 Glucose 91 mg/dl (70-99(Fasting)) 08/12/23 06:23 POC Glucose 90 mg/dl (70-99) 08/12/23 11:45 Estimat Average Glucose 169 mg/dl 08/04/23 08:04 Hemoglobin A1c 7.5 % (4.5-5.6) H 08/04/23 08:04 Lactate 1.5 mmol/L (0.4-2.0) 08/02/23 20:51 Calcium 8.7 mg/dl (8.6-10.3) 08/12/23 06:23 Phosphorus 3.0 mg/dl (2.5-4.9) 08/04/23 08:04 Magnesium 1.5 mg/dl (1.7-2.4) L 08/04/23 08:04 Iron 69 mcg/dl (35-150) 08/04/23 08:04 TIBC 182 mcg/dl (250-450) L 08/04/23 08:04 Unsaturated IBC 113 mcg/dl (155-355) L 08/04/23 08:04 Transferrin % Sat 38 % (15-50) 08/04/23 08:04 Ferritin 1368.3 ng/ml (8-388) H 08/04/23 08:04 Total Bilirubin 0.6 mg/dl (0.2-1.0) 08/04/23 08:04 AST 17 U/L (13-39) 08/04/23 08:04 ALT 14 U/L (7-52) 08/04/23 08:04 Alkaline Phosphatase 135 U/L (34-104) H 08/04/23 08:04 Troponin I High Sens 4.9 pg/ml (0-14) 08/02/23 17:18 Total Protein 6.0 gm/dl (6.0-8.3) 08/04/23 08:04 Albumin 3.2 gm/dl (3.4-5.0) L 08/04/23 08:04 Globulin 2.8 gm/dl (2.5-4.0) 08/04/23 08:04 Albumin/Globulin Ratio 1.1 (0.9-2) 08/04/23 08:04 Lipase 11 U/L (11-82) 08/02/23 17:18 Vitamin B12 1192 pg/ml (180-914) H 08/04/23 08:04 Folate 4.07 ng/ml (>5.38) L 08/04/23 08:04 Procalcitonin 0.21 ng/ml (0-0.5) 08/02/23 17:18 TSH 6.973 uIu/ml (0.300-4.500) H 08/02/23 17:18 Free T4 0.76 ng/dl (0.61-1.60) 08/02/23 17:18 Urine Color Yellow 08/04/23 16:00 Urine Appearance Clear (Clear) 08/04/23 16:00 Urine pH 5.5 (4.5-7.5) 08/04/23 16:00 Ur Specific [place] 1.019 (1.000-1.030) 08/04/23 16:00 Urine Protein 1+ (Negative) H 08/04/23 16:00 Urine Glucose (UA) Negative (Negative) 08/04/23 16:00 Urine Ketones Trace (Negative) H 08/04/23 16:00 Urine Blood 3+ (Negative) H 08/04/23 16:00 Urine Nitrite Negative (Negative) 08/04/23 16:00 Urine Bilirubin Negative (Negative) 08/04/23 16:00 Urine Urobilinogen Negative (Negative) 08/04/23 16:00 Ur Leukocyte Esterase Trace (Negative) H 08/04/23 16:00 Urine WBC (Auto) 0-5 /hpf (0-5) 08/04/23 16:00 Urine RBC (Auto) >20 /hpf (0-2) H 08/04/23 16:00 U Hyaline Cast (Auto) 0-2 /lpf (0-2) 08/04/23 16:00 U Epithel Cells (Auto) 0-2 /hpf (0-2) 08/04/23 16:00 Urine Bacteria (Auto) None Seen (None Seen) 08/04/23 16:00 Nasal Screen MRSA (PCR) Negative (Negative) 08/03/23 17:55 Adenovirus (PCR) Not Detected (NotDetected) 08/02/23 17:27 B. pertussis DNA (PCR) Not Detected (NotDetected) 08/02/23 17:27 B.parapertussis DNA PCR Not Detected (NotDetected) 08/02/23 17:27 C. pneumoniae DNA (PCR) Not Detected (NotDetected) 08/02/23 17:27 Coronavirus OC43 (PCR) Not Detected (NotDetected) 08/02/23 17:27 Coronavirus HKU1 (PCR) Not Detected (NotDetected) 08/02/23 17:27 Coronavirus 229E (PCR) Not Detected (NotDetected) 08/02/23 17:27 SARS-CoV-2 (PCR) Not Detected (NotDetected) 08/02/23 17:27 Coronavirus NL63 (PCR) Not Detected (NotDetected) 08/02/23 17:27 Human Metapneumovir PCR Not Detected (NotDetected) 08/02/23 17:27 Influenza Type A (PCR) Not Detected (NotDetected) 08/02/23 17:27 Influenza Type B (PCR) Not Detected (NotDetected) 08/02/23 17:27 M. pneumoniae (PCR) Not Detected (NotDetected) 08/02/23 17:27 Parainfluenza 1 (PCR) Not Detected (NotDetected) 08/02/23 17:27 Parainfluenza 2 (PCR) Not Detected (NotDetected) 08/02/23 17:27 Parainfluenza 3 (PCR) DETECTED (NotDetected) A 08/02/23 17:27 Parainfluenza 4 (PCR) Not Detected (NotDetected) 08/02/23 17:27 RSV (PCR) Not Detected (NotDetected) 08/02/23 17:27 Entero/Rhino (PCR) Not Detected (NotDetected) 08/02/23 17:27 Crossmatch See Detail 08/02/23 14:35 Impressions Chest X-Ray 08/02/23 17:06 XR chest 1V portable CLINICAL HISTORY: Chest pain, nonspecific TECHNIQUE: Single frontal radiograph of the chest was obtained. Comparison: Comparison is made to chest radiograph 07/13/[address] abdomen pelvis 07/13/2023 FINDINGS: A port catheter is seen. Peripheral density in the right midlung is again seen. The lungs are clear. No evidence of pleural effusion or pneumothorax. IMPRESSION: Peripheral right airspace opacities are stable from prior exam. Otherwise no acu te abnormalities. ACT 112: Negative or not required by law. Electronically signed by: Mariano Guerrier M.D. 08/02/2023 6:[address] 08/03/23 09:28 CT chest diagnostic wo con CT DOSE: 686.56 mGy.cm CLINICAL HISTORY: 48 years-old Female with r/o acute pneumonia, opacities on xray. Acute shortness of breath in a patient with history of breast cancer. TECHNIQUE: Multiaxial CT images of the chest were performed without contrast. A dose lowering technique was utilized adhering to the principles of ALARA. COMPARISON: Chest radiograph 08/02/2023, CTA chest 04/19/2023. FINDINGS: Heterogeneous thyroid with ill-defined subcentimeter nodules. Left subclavian [place]u-v-Aisl catheter. Trace pericardial effusion. Moderate coronary artery calcifications. Trace pleural effusions. Postoperative changes of the left breast. No pneumothorax or overt pulmonary edema. Peripheral subpleural consolidation of the right lung measures up to 10 cm within the right lower lobe on image 139 and 10 cm within the peripheral right lung on image 112. Several of the irregular nodular areas of consolidation within the right lung have resolved from the prior chest CT. Mild linear bibasilar atelectasis versus scarring. 3 mm solid nodule within the right middle lobe on image 124 is unchanged. 2 mm fissural nodule within the right lung on image 102 has decreased in size from prior suggestive of a lymph node. No new or enlarging pulmonary nodules. Central airways are patent. Postoperative changes of the left lung. Splenomegaly. Cholecystectomy. No acute upper abdominal abnormality. Extensive osseous metastasis redemonstrated which are mixed osteoblastic and osteolytic. Chronic pathologic thoracic compression deformities are noted with progressive vertebral body height loss at T7 and T8. There may also be epidural extension of disease within the thoracic spine. Pathologic fracturing of the sternal manubrium. IMPRESSION: 1. Peripheral subpleural consolidation throughout the right lung is likely infectious or inflammatory. 2. Trace pleural effusions. 3. No new or progressive lymphadenopathy. 4. 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 There is progressive vertebral body height loss involving the T7 and T8 vertebral bodies without significant retropulsion. There is also pathologic fracturing of the sternal manubrium. ACT 112: Negative or not required by law. Dictated: 08/03/2023 12:35 PM Transcribed: 08/03/2023 1:07 PM Geremias [id number] Eli [id number] Electronically signed by: Ruddy Chen M.D. 08/03/2023 1:09 PM Ordered Studies 08/03/23 09:28 CT chest diagnostic wo con Urgent Hospital Course (1) Weakness generalized: Continue PT OT: Recommends acute rehab Insurance denied rehab placement Patient prefers to be discharged home with home health (2) Parainfluenza: Parainfluenza virus pneumonitis --Chest CT:Peripheral subpleural consolidation throughout the right lung is likely infectious or inflammatory. Trace pleural effusions. No new or progressive lymphadenopathy. 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 There is progressive vertebral body height loss involving the T7 and T8 vertebral bodies without significant retropulsion. There is also pathologic fracturing of the sternal manubrium. --Observation --Conservative management Procalcitonin 0.21 Saturating well on room air (3) Breast cancer metastasized to bone: Patient presenting by referral of palliative care for evaluation of generalized weakness. Patient with history of metastatic breast cancer, currently on chemotherapy, last treatment on 07/26/2023. Treatment canceled due to low hemoglobin. According to outpatient palliative care note, patient has had difficulty obtaining a walker, has been generally weak, and has very little family support at this time. Metastatic breast cancer Ongoing chemotherapy Follows with Dr. Vazquez Reports generalized body ache Continue pain medications as needed Continue PT OT: Recommends acute rehab Antiemetics as needed Appreciate oncology, palliative care input Case management to help with discharge planning Will need follow-up with oncology on discharge Fall precautions Antiemetics as needed Follows with palliative care for pain control (4) Anemia: Anemia of chronic disease S/P 1 unit PRBCs Folic acid deficiency Anemia workup reviewed No acute bleeding issues Monitor CBC (5) Type II diabetes mellitus: hgb a1c 9.3 05/2023 Lantus and Novolog SSI Obesity BMI 37 DVT Px SQ Lovenox CODE STATUS DNI DNR Disposition Home with home health Total Time Total Time Spent Total Time Spent (In Minutes): 51 minutes Discharge Plan Discharge Items Patient Disposition: Home - Home Health Services Reason For Visit: WEAKNESS Discharge Diagnosis: Metastatic breast cancer Parainfluenza infection Anemia of chronic disease Folic acid deficiency Activity: Per Instructions section Exercise/Sports: Gradually increase as tolerated Non-emergency contact: Primary Care Provider, Specialist and Oncologist Call non-emergency contact if: you have any medication questions, your symptoms worsen, your pain is concerning for you and you have a fever Follow-up/Referrals: Adonis Lawler CRNP [Primary Care Provider] - Diet: Carb Consistent or DM2 Addtl Attending Provider Instructions: Follow-up with your primary care physician Adonis MEEKS in 1 week Follow-up with your oncologist and palliative care physician as advised Seek immediate medical attention if your symptoms reoccur or worsen Please take all medications as instructed on discharge list below. Please call if you have any questions or problems. You can reach a [facility] hospitalist on duty at [facility] 24 hours a day by calling [phone] Pending Studies at Discharge: No Stand-Alone Forms: My [facility], Smoking Cessation Medications and DC Order Prescriptions: New sennosides-docusate sodium [Senokot-S] 8.6-50 mg Tablet 1 tab PO BID PRN (Reason: Constipation) Qty: 30 0RF folic acid 1 mg Tablet 1 mg PO QAM Qty: 30 1RF fentanyl 75 mcg/hr Patch 72 Hour 1 patch transdermal Q72H Qty: 3 0RF Continued olanzapine [Zyprexa] 5 mg tablet 5 mg PO BID Qty: 60 2RF hydromorphone [Dilaudid] 4 mg tablet 4 mg PO Q4H PRN (Reason: severe breakthrough cancer pain) 30 Days Qty: 180 0RF ondansetron 8 mg tablet,disintegrating 8 mg translingual BID PRN (Reason: Nausea And Vomiting) insulin aspart U-100 [Novolog FlexPen U-100 Insulin] 100 unit/mL (3 mL) insulin pen 10 sliding scale dose SUBCUT AC Rx Instructions: fill history: 10 units subcut TID before meals insulin glargine [Lantus Solostar U-100 Insulin] 100 unit/mL (3 mL) insulin pen 25 unit SUBCUT BID Qty: 0 0RF oxycodone 20 mg tablet 20 mg PO Q4 PRN (Reason: severe cancer pain) Discontinued fentanyl 25 mcg/hr patch 72 hour 25 mcg topical [id number] Discharge Orders: Discharge Order (Routine); Ordered 08/12/23 Ordered By: Rafi Garland Admission Data Admit Date/Time: 08/02/23 18:32 Attending Provider: Rafi Garland Admit Provider: Salvador Norton Primary Care Provider: Adonis Lawler Other Providers: Jessica Plascencia; [facility]
[2023-08-12 15:16] VITALS: BP 103/75; PULSE 98; RESP 18; TEMP 98.2; O2SAT 99
== END 2023-08-12 17:01 | disposition home health service (06) | DRG 194 ==
LOC: ED 16:59 → 3W 18:32 → SUATTDRO 18:32 → 3W 20:58

== ENCOUNTER 2023-08-17 09:32 | Inpatient (IN) ==
--- NOTE | 2023-08-17 09:52 | Emergency Department Note ---
Impression & Plan Breast cancer metastasized to bone, Cancer related pain, Weakness generalized, Anemia ED Provider Note NAME: DEMETRIA CHAN AGE: 48 SEX: F : 1975 ARRIVES VIA: Walk-In INFORMANT: Patient ED PROVIDER(S): Jose David Francisco DO CHIEF COMPLAINT: weakness HPI: Patient is a 48-year-old female with a past medical history of metastatic breast cancer, arthritis, diabetes, depression, anemia who presents to the ER referred in by Dr. Farias for admission and pain control. Patient notes that she was just recently admitted and discharged. She tried to get to rehab but was declined by insurance and consequently she went home. Since being home she has been unable to get around and she become diffusely weaker. She is having trouble walking at this point. She notes no focal weakness in her arms or legs but she is just weak throughout. She admits to intermittent nausea and vomiting which has been persistent for quite some time. No belly pain. No dysuria, urgency or frequency. No fevers. No cough or congestion. No other exacerbating or remitting factors. She did fall on Wednesday. She was lowered to the ground and fell on her buttocks. ADDITIONAL HISTORY OBTAINED: Per HPI Chronic Medical/Social Conditions Affecting Care: Per HPI PAST MEDICAL HISTORY:See Below PAST SURGICAL HISTORY:See Below FAMILY HISTORY:See Below SOCIAL HISTORY:See Below HOME MEDICATIONS:See Below ALLERGIES:See Below VITALS:See Below PHYSICAL EXAMINATION: GENERAL: Sitting up in bed, alert, well appearing, well nourished, no distress, non-toxic HEAD: NC/AT EYE EXAM: normal conjunctiva. PERRL and EOM's grossly intact. OROPHARYNX: mucous membranes are moist NECK: supple, no nuchal rigidity, no adenopathy, non-tender LUNGS: Clear to auscultation. Normal chest wall mechanics HEART: no murmurs, S1 normal and S2 normal ABDOMEN: abdomen soft, non-tender, normo-active bowel sounds, no masses, no rebound or guarding. BACK: Back is symmetrical on inspection and there is no deformity, no midline tenderness, no CVA tenderness. UPPER EXTREMITIES: upper extremities are grossly normal. LOWER EXTREMITIES: Flexion and extension at the hips knees and ankles is intact but weaker with flexion at the hips bilaterally NEURO EXAM: Normal sensorium, cranial nerves II-XII grossly intact, normal speech, no gross weakness of arms, no gross weakness of legs. MEDICAL DECISION MAKING: Patient is a 48-year-old female who presents ER for the above-stated complaint. She was referred in and external records were reviewed in regards to call in sheet from Dr. Plascencia who recommended admission for pain control and possible rehab. Labs showed no significant leukocytosis and mild anemia 10. BMP with LFTs bilirubin is unremarkable. Lipase was normal. Viral panel was negative. X-ray of the right hip and pelvis showed no acute fracture. Patient was updated bedside. Due to pain she was given IV fluids and morphine. Patient was discussed with hospitalist for further evaluation management treatment. Consults/Care Managements Discussions: Per MDM Triage Nursing notes reviewed. Limited review of prior medical records performed Vital Signs: reviewed and remarkable for HTN and tachy Differential diagnosis: Infection, dehydration, metabolic abnormality, hypo/hyperglycemia, electrolyte disturbance, anemia, hypoxia, cardiac sources, intracerebral event, toxicologic, neurologic, as well as other pathologies. ER treatment provided: See below Diagnostics interpreted by me include EKG and cardiac monitoring as listed below: -Cardiac Monitoring: An order was placed for continuous cardiac monitoring. The monitor shows a rate of 100 with sinus rhythm. -ECG:none -Laboratory studies:Interpreted by me as stated above in MDM and shown below. Imaging studies: Xrays: As interpreted by me: X-ray of the right hip and pelvis shows no acute fractures per my interpretation CTs show: none Procedures:none Critical Care: None Past Med/Surg History Problem List (Updated 08/17/23 @ 13:57 by Jose David Francisco DO) Therapeutic opioid-induced constipation (OIC) (Acute) Breast cancer metastasized to multiple sites (Acute) Anemia (Acute) Parainfluenza Weakness generalized (Chronic) Depression Breast cancer metastasized to bone (Chronic) Cancer related pain (Chronic) Arthritis Obesity Hypothyroidism Type II diabetes mellitus (Acute) Medical History (Updated 08/17/23 @ 13:57 by Jose David Francisco DO) DM type 2 (diabetes mellitus, type 2) Breast cancer metastasized to bone History of COVID-19 12/2020 + 12/2021 > residual taste dysfunction and feeling of need to clear throat Bilateral breast cancer Arthritis Liver spots "Mets from cancer" Depression with anxiety Peripheral neuropathy Heart palpitations R/t anxiety per patient History of small bowel obstruction Hx bowel obstruction Hypothyroidism No current meds Surgical History History of tubal ligation Port-A-Cath in place (04/30/22) Insertion Access Port left subclavian with Fluoroscopy(Left) - Chad Banuelos DO History of surgery Left Excisional Debridement of Buttock Wound Nausea and vomiting after administration of anesthetic agent "EXTREME" History of vascular access device PORT INSERTION/REMOVAL History of tooth extraction History of endometrial ablation History of bowel resection D/T BOWEL OBSTRUCTION History of lung surgery Left thoracoscopy with wedge resection left lower lobe Dr. Damico 03/29/2018 History of dilatation and curettage H/O hernia repair Hx of section x3 S/P lumpectomy, left breast LEFT ARM LIMB RESTRICTION Family History Mother , 77yo Diabetes Heart disease Aortic valve replacement Mitral valve calcifications UTI (urinary tract infection) Father , 62yo Diabetes Myocardial infarction Hypertension Stroke Brother Diabetes Myocardial infarction Cardiac stents Pacemaker Hypertension Sister No problems noted. Daughter No problems noted. Son No problems noted. Son No problems noted. Other No family history of adverse response to anesthesia Social History Smoking Status: Unknown if ever smoked Second Hand Exposure: No; Do You Dip or Chew Tobacco: No; Hx Alcohol Use: No Hx Substance Use: Yes Last Used Substance: Unknown Last Used Substance Other:: Only uses medical marijuana vaping for pain. Substance Use Type Other:: Medical marijuana. 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 How many Children do You have: 3 Feels Safe at Home: Yes Diet: regular caffeine: No during the past year weight has: remained stable Assistive Devices: Bedside Commode and Wheelchair Allergies Allergies Allergy/AdvReac Type Severity Reaction Status Date / Time No Known Allergies Allergy Verified 08/17/23 12:07 Home Meds Home Medications Medication Instructions Recorded Confirmed insulin aspart U-100 100 unit/mL 0 sliding scale dose subcut AC 06/25/23 08/17/23 (3 mL) subcutaneous pen (Novolog FlexPen U-100 Insulin aspart) ondansetron 8 mg disintegrating 8 mg translingual BID PRN Nausea 06/25/23 08/17/23 tablet And Vomiting oxycodone 20 mg tablet 20 mg PO Q4 PRN severe cancer pain 08/02/23 08/17/23 Previous Rx's Medication Instructions Recorded olanzapine 5 mg tablet (Zyprexa) 5 mg PO BID #60 tabs 07/12/23 insulin glargine 100 unit/mL (3 25 unit (0.25 mL) subcut BID #0 mL 07/21/23 mL) subcutaneous pen (Lantus Solostar U-100 Insulin) hydromorphone 4 mg tablet 4 mg PO Q4H PRN severe 07/22/23 (Dilaudid) breakthrough cancer pain 1 month #180 tabs fentanyl 75 mcg/hr transdermal 1 patch transdermal Q72H #3 ea 08/12/23 patch folic acid 1 mg tablet 1 mg PO QAM #30 tabs 08/12/23 sennosides 8.6 mg-docusate sodium 1 tab PO BID PRN Constipation #30 08/12/23 50 mg tablet (Senokot-S) tabs Results & Data (ED) Vital Signs Vital Signs - 24 hr 08/17/23 09:35 08/17/23 10:16 08/17/23 10:28 Temperature 36.5 C Temperature Source Temporal Artery Scan Pulse Rate 100 H 79 Pulse Rate [Apical] Pulse Rhythm Regular Pulse Strength Normal Respiratory Rate 18 Respiratory Effort / Characteristics Non-Labored Spontaneous Respiratory Depth Normal Respiratory Pattern Regular Blood Pressure 176/90 H Blood Pressure [Right Arm] Blood Pressure Mean 118 Blood Pressure Mean [Right Arm] Blood Pressure Position Sitting Pulse Oximetry 98 Oxygen Delivery Method Room Air Room Air Sepsis Recent Fever Within 48 Hours No Sepsis New/Unexplained Change in Mental Status No Sepsis Action Taken by Nursing No Action Required 08/17/23 11:29 08/17/23 13:14 Temperature Temperature Source Pulse Rate Pulse Rate [Apical] 81 84 Pulse Rhythm Pulse Strength Respiratory Rate 21 22 Respiratory Effort / Characteristics Respiratory Depth Respiratory Pattern Blood Pressure Blood Pressure [Right Arm] 108/67 112/42 L Blood Pressure Mean Blood Pressure Mean [Right Arm] 80 65 Blood Pressure Position Pulse Oximetry 97 100 Oxygen Delivery Method Room Air Room Air Sepsis Recent Fever Within 48 Hours Sepsis New/Unexplained Change in Mental Status Sepsis Action Taken by Nursing Laboratory Data 08/17/23 10:05 08/17/23 10:05 Lab Results 08/17/23 08/17/23 Range/Units 10:05 10:12 WBC 8.19 (4.8-10.8) K/ul RBC 3.50 L (4.20-5.40) M/uL Hgb 10.1 L (12.0-16.0) g/dl Hct 30.0 L (37.0-47.0) % MCV 85.7 (80.0-100.0) fL MCH 28.9 (25.0-34.0) pg MCHC 33.7 (32.0-36.0) g/dL RDW Std Deviation 54.1 H (36.4-46.3) fL RDW Coeff of Joshua 17.5 H (11.5-14.5) % Plt Count 220 (130-400) K/uL MPV 8.7 L (9.4-12.4) fL Immature Gran % (Auto) 1.5 % Neut % (Auto) 77.5 % Lymph % (Auto) 12.7 % [place] % (Auto) 6.8 % Eos % (Auto) 1.3 % Baso % (Auto) 0.2 % Neut # (Auto) 6.34 (1.40-6.50) K/uL Lymph # (Auto) 1.04 L (1.20-3.40) K/uL [place] # (Auto) 0.56 (0.11-0.59) K/uL Eos # (Auto) 0.11 (0.00-0.50) K/uL Baso # (Auto) 0.02 (0.00-0.20) K/uL Immature Gran # (Auto) 0.12 (0.01-0.20) K/uL Sodium 136 (136-145) mmol/L Potassium 3.8 (3.5-5.1) mmol/L Chloride 103 (98-107) mmol/L Carbon Dioxide 25 (21-32) mmol/L Anion Gap 8 (3-11) BUN 15 (6-23) mg/dl Creatinine 0.73 (0.6-1.2) mg/dl Est Cr Clr Drug Dosing 112.1 ml/min Est GFR ( Amer) 114.5 ml/min Est GFR (Non-Af Amer) 98.8 ml/min BUN/Creatinine Ratio 20.5 H (10-20) Glucose 138 H (70-99(Fasting)) mg/dl Calcium 8.6 (8.6-10.3) mg/dl Total Bilirubin 0.7 (0.2-1.0) mg/dl AST 20 (13-39) U/L ALT 19 (7-52) U/L Alkaline Phosphatase 251 H (34-104) U/L Total Protein 6.9 (6.0-8.3) gm/dl Albumin 3.6 (3.4-5.0) gm/dl Globulin 3.3 (2.5-4.0) gm/dl Albumin/Globulin Ratio 1.1 (0.9-2) Lipase 5 L (11-82) U/L Adenovirus (PCR) Not Detected (NotDetected) B. pertussis DNA (PCR) Not Detected (NotDetected) B.parapertussis DNA PCR Not Detected (NotDetected) C. pneumoniae DNA (PCR) Not Detected (NotDetected) Coronavirus OC43 (PCR) Not Detected (NotDetected) Coronavirus HKU1 (PCR) Not Detected (NotDetected) Coronavirus 229E (PCR) Not Detected (NotDetected) SARS-CoV-2 (PCR) Not Detected (NotDetected) Coronavirus NL63 (PCR) Not Detected (NotDetected) Human Metapneumovir PCR Not Detected (NotDetected) Influenza Type A (PCR) Not Detected (NotDetected) Influenza Type B (PCR) Not Detected (NotDetected) M. pneumoniae (PCR) Not Detected (NotDetected) Parainfluenza 1 (PCR) Not Detected (NotDetected) Parainfluenza 2 (PCR) Not Detected (NotDetected) Parainfluenza 3 (PCR) Not Detected (NotDetected) Parainfluenza 4 (PCR) Not Detected (NotDetected) RSV (PCR) Not Detected (NotDetected) Entero/Rhino (PCR) Not Detected (NotDetected) Administered Medications Miscellaneous (Check Fentanyl Patch Placement) 1 each N/A QS [facility] Stop: 09/16/23 13:44 Last Admin: 08/17/23 13:41 Dose: 1 each Documented By: PAM Discontinued Medications Hydromorphone HCl (Hydromorphone Inj 0.5 Mg/0.5 Ml Syr) 0.5 mg IV NOW STA Stop: 08/17/23 09:52 Last Admin: 08/17/23 10:05 Dose: 0.5 mg Documented By: PAM Hydromorphone HCl (Hydromorphone Inj 0.5 Mg/0.5 Ml Syr) 0.5 mg IV NOW STA Stop: 08/17/23 13:11 Last Admin: 08/17/23 13:12 Dose: 0.5 mg Documented By: PAM Ondansetron HCl (Ondansetron Inj 2 Mg/Ml 2 Ml Vial) 4 mg IV NOW STA Stop: 08/17/23 09:52 Last Admin: 08/17/23 10:05 Dose: 4 mg Documented By: PAM Imaging Data Radiologist's Impression: Hip/Pelvis X-Ray 08/17/23 09:51 XR hip RT 2V w pelvis CLINICAL HISTORY: fall hip pain TECHNIQUE: 2 views of the right hip and single frontal view of the pelvis were obtained. Comparison: Comparison is made to CT abdomen pelvis 07/07/2023 FINDINGS: There is no evidence of an acute fracture. Joint spaces are well-preserved. No soft tissue abnormality is seen. Altered architecture of the trabeculae compatible with diffuse osseous metastatic disease. IMPRESSION: No evidence of acute osseous injury. ACT 112: Negative or not required by law. Electronically signed by: Mariano Guerrier M.D. 08/17/2023 10:51 AM Discharge Plan Visit Data Chief Complaint: Fall Stated Complaint: CAN'T MOVE LEGS, FELL, VOMITING ED Provider: Jose David Francisco Discharge Problem: Breast cancer metastasized to bone, Cancer related pain, Weakness generalized, Anemia Forms Stand Alone Forms: My [employer] Prescriptions Prescriptions: No Action olanzapine [Zyprexa] 5 mg tablet 5 mg PO BID Qty: 60 2RF hydromorphone [Dilaudid] 4 mg tablet 4 mg PO Q4H PRN (Reason: severe breakthrough cancer pain) 30 Days Qty: 180 0RF ondansetron 8 mg tablet,disintegrating 8 mg translingual BID PRN (Reason: Nausea And Vomiting) insulin aspart U-100 [Novolog FlexPen U-100 Insulin] 100 unit/mL (3 mL) insulin pen 0 sliding scale dose SUBCUT AC Rx Instructions: Sliding Scale tid with meals. insulin glargine [Lantus Solostar U-100 Insulin] 100 unit/mL (3 mL) insulin pen 25 unit SUBCUT BID Qty: 0 0RF oxycodone 20 mg tablet 20 mg PO Q4 PRN (Reason: severe cancer pain) sennosides-docusate sodium [Senokot-S] 8.6-50 mg Tablet 1 tab PO BID PRN (Reason: Constipation) Qty: 30 0RF folic acid 1 mg Tablet 1 mg PO QAM Qty: 30 1RF fentanyl 75 mcg/hr Patch 72 Hour 1 patch transdermal Q72H Qty: 3 0RF Referrals Referrals: Adonis Lawler CRNP [Primary Care Provider] - Discharge Problem: Breast cancer metastasized to bone Qualifiers: Laterality: unspecified laterality Qualified Code(s): C50.919 - Malignant neoplasm of unspecified site of unspecified female breast; C79.51 - Secondary malignant neoplasm of bone Anemia Qualifiers: Anemia type: unspecified type Qualified Code(s): D64.9 - Anemia, unspecified
[2023-08-17] MEDS: HYDROmorphone INJ 0.5 MG/0.5 ML SYR IV STA ×2 (10:05→13:12)
[2023-08-17] MEDS: ONDANSETRON INJ 2 MG/ML 2 ML VIAL IV STA (10:05)
[2023-08-17 10:36] LABS: Basophils # (auto) 0.02 K/uL (0.00-0.20); Basophils % (auto) 0.2 %; Eosinophils # (auto) 0.11 K/uL (0.00-0.50); Eosinophils % (auto) 1.3 %; Hemoglobin 10.1 g/dl (12.0-16.0); Immature Granulocytes # (auto) 0.12 K/uL (0.01-0.20); Immature Granulocytes % (auto) 1.5 %; Lymphocytes # (auto) 1.04 K/uL (1.20-3.40); Lymphocytes % (auto) 12.7 %; Mean Corpuscular Hemoglobin 28.9 pg (25.0-34.0); Mean Corpuscular Hgb Conc 33.7 g/dL (32.0-36.0); Mean Corpuscular Volume 85.7 fL (80.0-100.0); Mean Platelet Volume 8.7 fL (9.4-12.4); Monocytes # (auto) 0.56 K/uL (0.11-0.59); Monocytes % (auto) 6.8 %; Neutrophils # (auto) 6.34 K/uL (1.40-6.50); Neutrophils % (auto) 77.5 %; Platelet Count 220 K/uL (130-400); RDW Coefficient of Variation 17.5 % (11.5-14.5); RDW Standard Deviation 54.1 fL (36.4-46.3); White Blood Count 8.19 K/ul (4.8-10.8)
[2023-08-17 10:53] LABS: Albumin Globulin Ratio 1.1 (0.9-2); Albumin Level 3.6 gm/dl (3.4-5.0); BUN Creatinine Ratio 20.5 (10-20); Bilirubin,Total 0.7 mg/dl (0.2-1.0); Calcium 8.6 mg/dl (8.6-10.3); Creatinine Clr Calc Pharmacy 112.1 ml/min; Est GFR (African American) 114.5 ml/min; Est GFR (Non-African American) 98.8 ml/min; Globulin 3.3 gm/dl (2.5-4.0); Potassium 3.8 mmol/L (3.5-5.1); Total Protein 6.9 gm/dl (6.0-8.3)
--- NOTE | 2023-08-17 10:53 | XRay Report ---
XR hip RT 2V w pelvis CLINICAL HISTORY: fall hip pain TECHNIQUE: 2 views of the right hip and single frontal view of the pelvis were obtained. Comparison: Comparison is made to CT abdomen pelvis 07/07/2023 FINDINGS: There is no evidence of an acute fracture. Joint spaces are well-preserved. No soft tissue abnormalit y is seen. Altered architecture of the trabeculae compatible with diffuse osseous metastatic disease. IMPRESSION: No evidence of acute osseous injury. ACT 112: Negative or not required by law. Electronically signed by: Mariano Guerrier M.D. 08/17/2023 10:51 AM
[2023-08-17 11:19] LABS: Adenovirus PCR Not Detected (NotDetected); Bordetella parapertussis PCR Not Detected (NotDetected); Bordetella pertussis PCR Not Detected (NotDetected); Chlamydia pneumoniae PCR Not Detected (NotDetected); Coronavirus 229E PCR Not Detected (NotDetected); Coronavirus CoV-2 (COVID19)PCR Not Detected (NotDetected); Coronavirus HKU1 PCR Not Detected (NotDetected); Coronavirus NL63 PCR Not Detected (NotDetected); Coronavirus OC43PCR Not Detected (NotDetected); Human Metapneumovirus PCR Not Detected (NotDetected); Influenza A PCR Not Detected (NotDetected); Influenza B PCR Not Detected (NotDetected); Mycoplasma pneumoniae PCR Not Detected (NotDetected); Parainfluenza Virus 1 PCR Not Detected (NotDetected); Parainfluenza Virus 2 PCR Not Detected (NotDetected); Parainfluenza Virus 3 PCR Not Detected (NotDetected); Parainfluenza Virus 4 PCR Not Detected (NotDetected); Respiratory Syncytial VirusPCR Not Detected (NotDetected); Rhinovirus/Enterovirus PCR Not Detected (NotDetected)
[2023-08-17] MEDS ORDERED: ONDANSETRON 8MG OD TAB SL PRN (12:06)
[2023-08-17] MEDS ORDERED: HYDROmorphone HCL 4 MG TAB PO PRN (12:06)
[2023-08-17] MEDS ORDERED: DOCUSATE SODIUM/SENNA 50/8.6MG TAB PO PRN (12:06)
--- NOTE | 2023-08-17 12:13 | Palliative Care Consultation ---
Date of Consultation August 17, 2023 Assessment & Plan (1) Cancer related pain: modified regimen to Dilaudid 1mg IV q2h prn and Dilaudid 2mg IV q2h prn severe pain Ativan 1mg IV and Dilaudid 2.5mg IV x1 dose infrastructure solutions architect to imaging if MRI planned- she will not be able to tolerate positioning without some pre med (2) Intractable nausea and vomiting: (3) Therapeutic opioid-induced constipation (OIC): Bowel regimen with senna S 1 tablet twice daily (or 2 tablets p.o. daily) as well as MiraLAX 1 unit dose daily as needed. (4) Breast cancer metastasized to bone: Laterality: unspecified laterality Qualified Code(s): C50.919 - Malignant neoplasm of unspecified site of unspecified female breast; C79.51 - Secondary malignant neoplasm of bone (5) Depression: Active/Remission status: currently active Depression Type: major depressive disorder Major depression episode severity: severe Major depression recurrence: recurrent Psychotic features: without psychotic features Qualified Code(s): F33.2 - Major depressive disorder, recurrent severe without psychotic features (6) Palliative care by specialist: Chandrika Prather is DNR/DNI, code order changed As above Thank you for allowing us to participate in the ongoing care of this patient. Please page with any additional concerns. Pilar Limon DNP Director, Palliative Medicine History of Present Illness Reason for Consultation: Continuity of care History of Present Illness PAT Prather is well known to Palliative Med and has of metastatic breast cancer with past medical hx of arthritis, diabetes, depression, anemia. She was just discharged home 08/12 when her insurance refused to authorize rehab discharge. Since returning home her weakness worsened and she has had several more falls. She presented to [facility] this AM and was sent to ED for progressive weakness, persistent falls. Allergies Allergy/AdvReac Type Severity Reaction Status Date / Time No Known Allergies Allergy Verified 08/17/23 12:07 Home Medications Medication Instructions Recorded Confirmed Type insulin aspart U-100 100 unit/mL 0 sliding scale dose subcut AC 06/25/23 History (3 mL) subcutaneous pen (Novolog FlexPen U-100 Insulin aspart) ondansetron 8 mg disintegrating 8 mg translingual BID PRN Nausea 06/25/23 08/17/23 History tablet And Vomiting olanzapine 5 mg tablet (Zyprexa) 5 mg PO BID #60 tabs 07/12/23 08/17/23 Rx insulin glargine 100 unit/mL (3 25 unit (0.25 mL) subcut BID #0 mL 07/21/23 08/17/23 Rx mL) subcutaneous pen (Lantus Solostar U-100 Insulin) hydromorphone 4 mg tablet 4 mg PO Q4H PRN severe 07/22/23 08/17/23 Rx (Dilaudid) breakthrough cancer pain 1 month #180 tabs oxycodone 20 mg tablet 20 mg PO Q4 PRN severe cancer pain 08/02/23 08/17/23 History fentanyl 75 mcg/hr transdermal 1 patch transdermal Q72H #3 ea 08/12/23 08/17/23 Rx patch folic acid 1 mg tablet 1 mg PO QAM #30 tabs 08/12/23 08/17/23 Rx sennosides 8.6 mg-docusate sodium 1 tab PO BID PRN Constipation #30 08/12/23 08/17/23 Rx 50 mg tablet (Senokot-S) tabs Patient History Medical History (Updated 08/17/23 @ 13:57 by Jose David Francisco DO) DM type 2 (diabetes mellitus, type 2) Breast cancer metastasized to bone History of COVID-19 12/2020 + 12/2021 > residual taste dysfunction and feeling of need to clear throat Bilateral breast cancer Arthritis Liver spots "Mets from cancer" Depression with anxiety Peripheral neuropathy Heart palpitations R/t anxiety per patient History of small bowel obstruction Hx bowel obstruction Hypothyroidism No current meds Surgical History History of tubal ligation Port-A-Cath in place (04/30/22) Insertion Access Port left subclavian with Fluoroscopy(Left) - Chad Banuelos DO History of surgery Left Excisional Debridement of Buttock Wound Nausea and vomiting after administration of anesthetic agent "EXTREME" History of vascular access device PORT INSERTION/REMOVAL History of tooth extraction History of endometrial ablation History of bowel resection D/T BOWEL OBSTRUCTION History of lung surgery Left thoracoscopy with wedge resection left lower lobe Dr. Damico 03/29/2018 History of dilatation and curettage H/O hernia repair Hx of section x3 S/P lumpectomy, left breast LEFT ARM LIMB RESTRICTION Family History Mother , 77yo Diabetes Heart disease Aortic valve replacement Mitral valve calcifications UTI (urinary tract infection) Father , 62yo Diabetes Myocardial infarction Hypertension Stroke Brother Diabetes Myocardial infarction Cardiac stents Pacemaker Hypertension Sister No problems noted. Daughter No problems noted. Son No problems noted. Son No problems noted. 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 How many Children do You have: 3 Other Information That Helps Us Care for You: No Feels Safe at Home: Yes Safety Concerns: Feels Safe At This Time Diet: regular caffeine: No during the past year weight has: remained stable Assistive Devices: Walker Review of Systems Review of Systems: All systems reviewed & are unremarkable except as noted in Subjective Physical Exam Physical Exam: Chronically ill appearing, tearful intermittently, fatigued bitemp wasting, alopecia/chemo related; perrla, EOMIs Neck supple, no stridor, edentulous, MM dry Resp effort WAL, no use of accessory muscles S1S2 Abd soft, NTP, BS+ Anterior to lateral left ribs/chest and back +TTP +generalized weakness, LLE >> RLE paraspinal tenderness, rigth hip tenderness AAOx3 skin dry no BLE edema Results & Data Vital Signs (Past 12 Hours) Vital Signs Temp Pulse Pulse Resp BP BP Pulse Ox 08/17/23 11:29 81 21 108/67 97 08/17/23 10:28 79 08/17/23 10:16 08/17/23 09:35 36.5 C 100 H 18 176/90 H 98 O2 Del Method 08/17/23 11:29 Room Air 08/17/23 10:28 08/17/23 10:16 Room Air 08/17/23 09:35 Room Air Laboratory Results 08/17/23 08/17/23 Range/Units 10:12 10:05 WBC 8.19 (4.8-10.8) K/ul RBC 3.50 L (4.20-5.40) M/uL Hgb 10.1 L (12.0-16.0) g/dl Hct 30.0 L (37.0-47.0) % MCV 85.7 (80.0-100.0) fL MCH 28.9 (25.0-34.0) pg MCHC 33.7 (32.0-36.0) g/dL RDW Std Deviation 54.1 H (36.4-46.3) fL RDW Coeff of Joshua 17.5 H (11.5-14.5) % Plt Count 220 (130-400) K/uL MPV 8.7 L (9.4-12.4) fL Immature Gran % (Auto) 1.5 % Neut % (Auto) 77.5 % Lymph % (Auto) 12.7 % [place] % (Auto) 6.8 % Eos % (Auto) 1.3 % Baso % (Auto) 0.2 % Neut # (Auto) 6.34 (1.40-6.50) K/uL Lymph # (Auto) 1.04 L (1.20-3.40) K/uL [place] # (Auto) 0.56 (0.11-0.59) K/uL Eos # (Auto) 0.11 (0.00-0.50) K/uL Baso # (Auto) 0.02 (0.00-0.20) K/uL Immature Gran # (Auto) 0.12 (0.01-0.20) K/uL Sodium 136 (136-145) mmol/L Potassium 3.8 (3.5-5.1) mmol/L Chloride 103 (98-107) mmol/L Carbon Dioxide 25 (21-32) mmol/L Anion Gap 8 (3-11) BUN 15 (6-23) mg/dl Creatinine 0.73 (0.6-1.2) mg/dl Est Cr Clr Drug Dosing 112.1 ml/min Est GFR ( Amer) 114.5 ml/min Est GFR (Non-Af Amer) 98.8 ml/min BUN/Creatinine Ratio 20.5 H (10-20) Glucose 138 H (70-99(Fasting)) mg/dl Calcium 8.6 (8.6-10.3) mg/dl Total Bilirubin 0.7 (0.2-1.0) mg/dl AST 20 (13-39) U/L ALT 19 (7-52) U/L Alkaline Phosphatase 251 H (34-104) U/L Total Protein 6.9 (6.0-8.3) gm/dl Albumin 3.6 (3.4-5.0) gm/dl Globulin 3.3 (2.5-4.0) gm/dl Albumin/Globulin Ratio 1.1 (0.9-2) Lipase 5 L (11-82) U/L Adenovirus (PCR) Not Detected (NotDetected) B. pertussis DNA (PCR) Not Detected (NotDetected) B.parapertussis DNA PCR Not Detected (NotDetected) C. pneumoniae DNA (PCR) Not Detected (NotDetected) Coronavirus OC43 (PCR) Not Detected (NotDetected) Coronavirus HKU1 (PCR) Not Detected (NotDetected) Coronavirus 229E (PCR) Not Detected (NotDetected) SARS-CoV-2 (PCR) Not Detected (NotDetected) Coronavirus NL63 (PCR) Not Detected (NotDetected) Human Metapneumovir PCR Not Detected (NotDetected) Influenza Type A (PCR) Not Detected (NotDetected) Influenza Type B (PCR) Not Detected (NotDetected) M. pneumoniae (PCR) Not Detected (NotDetected) Parainfluenza 1 (PCR) Not Detected (NotDetected) Parainfluenza 2 (PCR) Not Detected (NotDetected) Parainfluenza 3 (PCR) Not Detected (NotDetected) Parainfluenza 4 (PCR) Not Detected (NotDetected) RSV (PCR) Not Detected (NotDetected) Entero/Rhino (PCR) Not Detected (NotDetected) Diagnostic Findings Hip Film 08/17/23: Altered architecture of the trabeculae compatible with diffuse osseous metastatic disease; no new fx PG Care Time/CCT Total # of Minutes Spent Total Time Spent: 90 Total Time Spent with Patient: Total time spent is greater than 50% in coordination of care (as documented) at patient's floor/unit and/or counseling patient: [place] [address] IN/OBS CONSULT LVL 5,80M Patient Type New History Comprehensive Exam Comprehensive Medical Decision Making High Complexity Diagnoses Cancer related pain G89.3 Intractable nausea and vomiting R11.2 Therapeutic opioid-induced constipation (OIC) K59.03; T40.2X5A Carcinoma of breast metastatic to bone, unspecified laterality C50.919; C79.51 Laterality: unspecified laterality Severe episode of recurrent major depressive disorder, without psychotic feat ures F33.2 Active/Remission status: currently active Depression Type: major depressive disorder Major depression episode severity: severe Major depression recurrence: recurrent Psychotic features: without psychotic features Palliative care by specialist Z51.5
[2023-08-17] MEDS ORDERED: ACETAMINOPHEN 325 MG TAB PO PRN (12:31)
[2023-08-17] MEDS ORDERED: ALUMINUM/MAGNESIUM SUSP 30 ML UDC PO PRN (12:31)
[2023-08-17] MEDS ORDERED: MAGNESIUM HYDROXIDE SUSP 30 ML UDC PO PRN (12:31)
[2023-08-17] MEDS ORDERED: GLUCAGON FOR INJ 1 MG VIAL SQ PRN (12:34)
[2023-08-17] MEDS ORDERED: GLUCOSE 40% GEL 15 GM TUBE PO PRN (12:34)
[2023-08-17] MEDS ORDERED: CARBOHYDRATES FOR HYPOGLYCEMIA PO PRN (12:34)
[2023-08-17] MEDS ORDERED: DEXTROSE 50% 50 ML SYRINGE IV PRN (12:34)
[2023-08-17] MEDS ORDERED: GLUCOSE 10 TAB/TUBE PO PRN (12:34)
[2023-08-17] MEDS ORDERED: PHARMACY GLYCEMIC MGMT CONSULT PRN (12:34)
--- NOTE | 2023-08-17 12:50 | History & Physical Report ---
Date of Service August 17, 2023 Assessment & Plan (1) Weakness generalized: Plan Weakness generalized: Fall, mechanical Right hip pain Hip xr reviewed, get right hip CT, follow Continue PT OT: Will need rehab Breast cancer metastasized to bone: Patient presenting by referral of Oncology for evaluation of generalized weakness. Patient with history of metastatic breast cancer, currently on chemotherapy, last treatment 2 wks ago per pt. pt follows palliative and oncology. Metastatic breast cancer Ongoing chemotherapy Follows with Dr. Plascencia Continue pain medications as needed Continue PT OT Antiemetics as needed Case management to help with discharge planning Will need follow-up with oncology on discharge Fall precautions Antiemetics as needed Follows with palliative care for pain control Anemia: Anemia of chronic disease, follow HnH. denies cp, palpitations. c/w home folic acid. labs in AM Type II diabetes mellitus: SSI while in here Obesity: BMI 37 DVT Px: SQ Lovenox CODE STATUS: full code. History of Present Illness Chief Complaint: generalized weakness, fall Primary Care Provider: CONSTANTINO Reid 48-year-old female with PMH of metastatic breast cancer on chemotherapy (last dose 2 weeks ago per pt), DM type II on insulin, presented to the ED for evaluation of generalized weakness. She reports feeling tired, weak since the time of discharge. She lived w/ her neice for 2 days before she went to her home Wednesday w/ two people on her each side. As she was walking up the stairs, her legs gave up and she fell on her buttocks. Those 2 people were able to lower her down during fall to some extent. She reports right hip pain, painful and decreased rom at right hip. will get ct hip. She denies fever, chills, cough, sore throat, chest pain, palpitations, abdominal pain. She does have chronic nausea and vomiting. She reports moving bowels ok, denies pain and burning while passing urine. Medications reviewed w/ patient in detail. Full code. Plan of care discussed w/ pt in detail. she voiced understanding and was agreeable to plan of care. Allergies Allergy/AdvReac Type Severity Reaction Status Date / Time No Known Allergies Allergy Verified 08/17/23 12:07 Home Medications Medication Instructions Recorded Confirmed Type insulin aspart U-100 100 unit/mL 0 sliding scale dose subcut AC 06/25/23 08/17/23 History (3 mL) subcutaneous pen (Novolog FlexPen U-100 Insulin aspart) ondansetron 8 mg disintegrating 8 mg translingual BID PRN Nausea 06/25/23 08/17/23 History tablet And Vomiting olanzapine 5 mg tablet (Zyprexa) 5 mg PO BID #60 tabs 07/12/23 08/17/23 Rx insulin glargine 100 unit/mL (3 25 unit (0.25 mL) subcut BID #0 mL 07/21/23 08/17/23 Rx mL) subcutaneous pen (Lantus Solostar U-100 Insulin) hydromorphone 4 mg tablet 4 mg PO Q4H PRN severe 07/22/23 08/17/23 Rx (Dilaudid) breakthrough cancer pain 1 month #180 tabs oxycodone 20 mg tablet 20 mg PO Q4 PRN severe cancer pain 08/02/23 08/17/23 H istory fentanyl 75 mcg/hr transdermal 1 patch transdermal Q72H #3 ea 08/12/23 08/17/23 Rx patch folic acid 1 mg tablet 1 mg PO QAM #30 tabs 08/12/23 08/17/23 Rx sennosides 8.6 mg-docusate sodium 1 tab PO BID PRN Constipation #30 08/12/23 08/17/23 Rx 50 mg tablet (Senokot-S) tabs Past Med/Surg History Problem List (Updated 08/10/23 @ 20:58 by Luna Limon DNP) Therapeutic opioid-induced constipation (OIC) (Acute) Breast cancer metastasized to multiple sites (Acute) Anemia Parainfluenza Weakness generalized (Chronic) Depression Breast cancer metastasized to bone (Chronic) Cancer related pain (Chronic) Arthritis Obesity Hypothyroidism Type II diabetes mellitus (Acute) Medical History (Updated 08/10/23 @ 20:58 by Luna Limon DNP) DM type 2 (diabetes mellitus, type 2) Breast cancer metastasized to bone History of COVID-19 12/2020 + 12/2021 > residual taste dysfunction and feeling of need to clear throat Bilateral breast cancer Arthritis Liver spots "Mets from cancer" Depression with anxiety Peripheral neuropathy Heart palpitations R/t anxiety per patient History of small bowel obstruction Hx bowel obstruction Hypothyroidism No current meds Surgical History History of tubal ligation Port-A-Cath in place (04/30/22) Insertion Access Port left subclavian with Fluoroscopy(Left) - Chad Banuelos DO History of surgery Left Excisional Debridement of Buttock Wound Nausea and vomiting after administration of anesthetic agent "EXTREME" History of vascular access device PORT INSERTION/REMOVAL History of tooth extraction History of endometrial ablation History of bowel resection D/T BOWEL OBSTRUCTION History of lung surgery Left thoracoscopy with wedge resection left lower lobe Dr. Damico 03/29/2018 History of dilatation and curettage H/O hernia repair Hx of section x3 S/P lumpectomy, left breast LEFT ARM LIMB RESTRICTION Family History Mother , 77yo Diabetes Heart disease Aortic valve replacement Mitral valve calcifications UTI (urinary tract infection) Father , 62yo Diabetes Myocardial infarction Hypertension Stroke Brother Diabetes Myocardial infarction Cardiac stents Pacemaker Hypertension Sister No problems noted. Daughter No problems noted. Son No problems noted. Son No problems noted. Other No family history of adverse response to anesthesia Social History Smoking Status: Unknown if ever smoked Second Hand Exposure: No; Do You Dip or Chew Tobacco: No; Hx Alcohol Use: No Hx Substance Use: Yes Last Used Substance: Unknown Last Used Substance Other:: Only uses medical marijuana vaping for pain. Substance Use Type Other:: Medical marijuana. 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 Physical Exam Physical Exam: GENERAL: Alert and oriented x3. NAD, on RA. Appears ill/weak/frail. Obese class I. HEENT: No pallor, no icterus. Pupils equal, round and reactive to light. Oral mucosa moist. NECK: No JVD, no neck masses. HEART: S1 and S2 heard. Regular rate and rhythm. No murmur, no gallop. RESPIRATORY SYSTEM: Normal AP diameter. No accessory muscle use. No wheezing, no crackles. ABDOMEN: Soft, bowel sounds present, nontender, no distention. CENTRAL NERVOUS SYSTEM: No facial droop. Speech is clear. Obeys simple commands. Moves extremities. EXTREMITIES: No edema, no erythema seen. Results & Data Results & Data Vital Signs (Past 12 Hours) Vital Signs Temp Pulse Pulse Resp BP BP Pulse Ox 08/17/23 11:29 81 21 108/67 97 08/17/23 10:28 79 08/17/23 10:16 08/17/23 09:35 36.5 C 100 H 18 176/90 H 98 O2 Del Method 08/17/23 11:29 Room Air 08/17/23 10:28 08/17/23 10:16 Room Air 08/17/23 09:35 Room Air
[2023-08-17] MEDS: CHECK fentaNYL PATCH PLACEMENT SCH (13:41)
--- NOTE | 2023-08-17 14:07 | Pharmacy Report ---
Pharmacy Glycemic Short Note 2 - Date of Service August 17, 2023 - Glycemic Short BSG Results (Last 24 hours): 08/17/23 10:05 Glucose 138 H OUTPATIENT ANTIDIABETIC REGIMEN: * Lantus 25 units SC BID * Aspart SS TID with meals * A1c = 7.5% ASSESSMENT: * Yamilka is a 48 yo T2DM with h/o metastatic breast cancer currently on chemotherapy referred to the ED for evaluation of generalized weakness. She was recently admitted here 08/01-08/12. Her insulin regimen was very stable during that time. Will start patient on similar insulin doses. PLAN FOR INPATIENT GLYCEMIC CONTROL: * Hold outpatient oral diabetes medications * Basal insulin * Lantus 20-25 units SQ BID (25 units for BSG > 120 mg/dL) * Bolus insulin * NovoLog per scale ACHS or Q6hrs while NPO * Goal Range: Low 120 mg/dL - High 150 mg/dL * Correction Factor: 20 mg/dL/unit * Nutritional / Prandial insulin per carb ratio of 1 unit per 5 grams CHO consumed
[2023-08-17] MEDS ORDERED: CHECK fentaNYL PATCH PLACEMENT SCH (16:00)
[2023-08-17] MEDS: HYDROmorphone INJ 0.5 MG/0.5 ML SYR IV PRN (16:05)
--- NOTE | 2023-08-17 16:10 | CT Scan Report ---
CT hip RT wo con HISTORY: 48 years-old Female painful/decreased right hip rom, fall Acute pain of the right hip with limited range of motion. History of metastatic breast cancer. COMPARISON: Radiographs 08/17/2023, CTA abdomen and pelvis 07/07/2023. TECHNIQUE: Multiple axial CT images of the right hip were obtained without IV contrast. A dose loweri ng technique was used consistent with the principals of THELMA. FINDINGS: Multifocal skeletal metastasis is redemonstrated, which are predominantly osteolytic. Index 2 cm righ t iliac lesion on image 45 is previously measured at 1.8 cm. Right acetabular 2.4 cm lesion on image 180 previously measured 2.3 cm. A 2.5 cm femoral neck destructive lesion is similar in size, however, demonstrates progressive cortical destruction. There is overall no significant change from prior. Se veral of the lesions are again noted extending to the cortical surface. Mild cortical destruction inv olving the superior cortex of the femoral neck is again noted. Partially imaged probable pathologic f racturing of the inferior sacrum on image 6 series 2 without displacement. No additional pathologic f racture is identified. Herniorrhaphy changes. Surgical clips within the pelvis. Urinary bladder wall thickening. IMPRESSION: 1. Extensive osteolytic skeletal metastasis redemonstrated, which appear overall stable to slightly p rogressed from the 07/07/2023 exam. Lesion with cortical destruction within the femoral neck is redemon strated without acute pathologic fracture identified. 2. Mild likely acute or subacute nondisplaced pathologic inferior sacral fracture. ACT 112: Negative or not required by law. The above report was generated using voice recognition software. It may contain grammatical, syntax o r spelling errors. Dictated: 08/17/2023 1:55 PM Transcribed: 08/17/2023 2:07 PM Ren [id number] [email or web address] Electronically signed by: Ruddy Chen M.D. 08/17/2023 4:08 PM
[2023-08-17] MEDS: INSULIN ASPART PER UNIT CHARGE SC SCH (17:35)
[2023-08-17] MEDS: OLANZapine 5 MG TABLET PO SCH (20:21)
[2023-08-17] MEDS: LANTUS PER UNIT CHARGE SC SCH (20:32)
[2023-08-17] MEDS: HEPARIN 100 UNIT/ML 5ML FLUSH FLUSH PRN (20:41)
[2023-08-18 06:02] LABS: Hematocrit (blood only) 25.5 % (37.0-47.0); Hemoglobin 8.5 g/dl (12.0-16.0); Mean Corpuscular Hemoglobin 28.9 pg (25.0-34.0); Mean Corpuscular Hgb Conc 33.3 g/dL (32.0-36.0); Mean Corpuscular Volume 86.7 fL (80.0-100.0); Mean Platelet Volume 9.2 fL (9.4-12.4); Platelet Count 188 K/uL (130-400); RDW Coefficient of Variation 17.3 % (11.5-14.5); RDW Standard Deviation 55.4 fL (36.4-46.3); Red Blood Count 2.94 M/uL (4.20-5.40); White Blood Count 6.85 K/ul (4.8-10.8)
[2023-08-18 06:15] LABS: BUN Creatinine Ratio 22.4 (10-20); Calcium 8.5 mg/dl (8.6-10.3); Creatinine Clr Calc Pharmacy 110.3 ml/min; Est GFR (Non-African American) 94.1 ml/min; Magnesium 1.7 mg/dl (1.7-2.4); Phosphorus 4.6 mg/dl (2.5-4.9); Potassium 3.8 mmol/L (3.5-5.1)
[2023-08-18] MEDS: FOLIC ACID 1 MG TAB PO SCH (08:10)
[2023-08-18] MEDS ORDERED: HYDROmorphone INJ 0.5 MG/0.5 ML SYR IV PRN (09:13)
[2023-08-18] MEDS: HYDROmorphone INJ 0.5 MG/0.5 ML SYR IV PRN (09:24)
[2023-08-18 11:51] LABS: Appearance Urine Cloudy (Clear); Bacteria Urine Automated 2+ (None Seen); Bilirubin Urine 1+ (Negative); Blood Urine 2+ (Negative); Color Urine Dark Yellow; Glucose Urine UA Negative (Negative); Ketones Urine Trace (Negative); Leukocyte Esterase Urine 2+ (Negative); Nitrite Urine Negative (Negative); Protein Urine 1+ (Negative); Specific Gravity Urine 1.023 (1.000-1.030); Urobilinogen Urine Negative (Negative); WBC Urine Automated 21-50 /hpf (0-5); pH Urine 5.5 (4.5-7.5)
--- NOTE | 2023-08-18 12:04 | Hospitalist Progress Note ---
Date of Service August 18, 2023 Assessment & Plan (1) Weakness generalized: Plan Ms. Vega is a 48-year-old female with past medical history significant for metastatic breast cancer, diabetes, hypothyroidism history of hypercalcemia, depression with anxiety, peripheral neuropathy, history of small bowel obstruction admitted for progressive weakness and mechanical fall. CT revealed acute/subacute sacral fracture #Progressive weakness #Fall, mechanical #Sacral Fracture CT hip reviewed: Mild likely acute or subacute nondisplaced pathologic inferior sacral fracture. PT/OT Bone scan/MRI brain ordered #Breast cancer metastasized to bone: Patient presenting by referral of Oncology for evaluation of generalized weakness. Patient with history of metastatic breast cancer, currently on chemotherapy, last treatment 2 wks ago per pt. pt follows palliative and oncology. Ongoing chemotherapy Follows with Dr. Plascencia Continue pain medications as needed -Palliative care on consult, reviewed recommendations Continue PT OT Antiemetics as needed Case management to help with discharge planning Will need follow-up with oncology on discharge Fall precautions Antiemetics as needed #Anemia of chronic disease follow HnH. denies cp, palpitations. c/w home folic acid. labs in AM Type II diabetes mellitus: SSI while in here Obesity: BMI 37 DVT Px: SQ Lovenox CODE STATUS: full code. Admission and Anticipated Discharge Date Admission Date: August 17, 2023 Subjective Denies any acute concerns Reports frustration with progressive weakness, notes weakness in legs, inability to raise Reports discomfort in buttocks from fall at home Physical Exam Constitutional: weak appearing female, general pallor Respiratory: normal respiratory effort, lungs clear to auscultation Cardiovascular: RRR, no murmur, no edema Musculoskeletal: moving all extremities equally, strength 2-3/5 BLE, 3-4/5 BUE Neurologic: PERRL, EOMI, accommodation nl, no face palsy, no dysarthria Results & Data Results & Data Vital Signs (Past 12 Hours) Vital Signs Temp Pulse Resp BP Pulse Ox O2 Del Method 08/18/23 07:29 36.7 C 85 16 107/70 97 Room Air Laboratory Results Short CBC 08/18/23 Range/Units 05:35 WBC 6.85 (4.8-10.8) K/ul Hgb 8.5 L (12.0-16.0) g/dl Hct 25.5 L (37.0-47.0) % Plt Count 188 (130-400) K/uL BMP 08/18/23 05:35 Sodium 138 Potassium 3.8 Chloride 105 Carbon Dioxide 27 BUN 17 Creatinine 0.76 Glucose 99 Calcium 8.5 L Urine 08/18/23 Range/Units Unknown Urine Color Dark Yellow Urine Appearance Cloudy A (Clear) Urine pH 5.5 (4.5-7.5) Ur Specific [place] 1.023 (1.000-1.030) Urine Protein 1+ H (Negative) Urine Glucose (UA) Negative (Negative) Medications Administered Home Medications Medication Instructions Recorded Confirmed Last Taken insulin aspart U-100 100 unit/mL 0 sliding scale dose subcut AC 06/25/23 08/17/23 08/02/23 (3 mL) subcutaneous pen (Novolog FlexPen U-100 Insulin aspart) ondansetron 8 mg disintegrating 8 mg translingual BID PRN Nausea 06/25/23 08/17/23 Unknown tablet And Vomiting olanzapine 5 mg tablet (Zyprexa) 5 mg PO BID #60 tabs 07/12/23 08/17/23 08/02/23 am dose insulin glargine 100 unit/mL (3 25 unit (0.25 mL) subcut BID #0 mL 07/21/23 08/17/23 08/17/23 07:30 mL) subcutaneous pen (Lantus Solostar U-100 Insulin) hydromorphone 4 mg tablet 4 mg PO Q4H PRN severe 07/22/23 08/17/23 Unknown (Dilaudid) breakthrough cancer pain 1 month #180 tabs oxycodone 20 mg tablet 20 mg PO Q4 PRN severe cancer pain 08/02/23 08/17/23 Unknown fentanyl 75 mcg/hr transdermal 1 patch transdermal Q72H #3 ea 08/12/23 08/17/23 08/16/23 patch folic acid 1 mg tablet 1 mg PO QAM #30 tabs 08/12/23 08/17/23 Unknown sennosides 8.6 mg-docusate sodium 1 tab PO BID PRN Constipation #30 08/12/23 08/17/23 Unknown 50 mg tablet (Senokot-S) tabs Active Medications Generic Name Dose Route Start Last Admin Trade Name Freq PRN Reason Stop Dose Admin Folic Acid 1 mg 08/18/23 09:00 08/18/23 08:10 Folic Acid 1 Mg Tab PO 09/17/23 08:59 1 mg QAM JESSE Administration Heparin Sodium (Porcine) 5 ml 08/17/23 19:49 08/18/23 09:24 Heparin 100 Unit/Ml 5ml Flush FLUSH 09/16/23 19:48 5 ml PRN PRN Administration Flush Hydromorphone HCl 1 mg 08/18/23 09:15 08/18/23 09:24 Hydromorphone Inj 0.5 Mg/0.5 Ml Syr IV 08/31/23 15:47 1 mg Q2H PRN Administration Severe Pain (Scale 7, 8, 9,10) Insulin Aspart 0 units 08/17/23 16:30 08/18/23 08:16 Insulin Aspart Per Unit Charge SC 09/16/23 16:29 11 units ACHS JESSE Administration Insulin Glargine 0 units 08/17/23 21:00 08/18/23 08:16 Lantus Per Unit Charge SC 09/16/23 20:59 20 units BID JESSE Administration Protocol Miscellaneous 1 each 08/17/23 13:45 08/18/23 07:26 Check Fentanyl Patch Placement N/A 09/16/23 13:44 1 each QS JESSE Administration Olanzapine 5 mg 08/17/23 21:00 08/18/23 08:10 Olanzapine 5 Mg Tablet PO 09/16/23 20:59 5 mg BID JESSE Administration
--- NOTE | 2023-08-18 13:30 | Pharmacy Report ---
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 * No changes to Novolog at this time. 08/16 * Yamilka is a 48 yo T2DM with h/o metastatic breast cancer currently on chemotherapy referred to the ED for evaluation of generalized weakness. She was recently admitted here 08/01-08/12. Her insulin regimen was very stable during that time. Will start patient on similar insulin doses. PLAN FOR INPATIENT GLYCEMIC CONTROL: * Hold outpatient oral diabetes medications * Basal insulin * Lantus 15-20 units SQ BID (20 units for BSG > 180 mg/dL) * Bolus insulin * NovoLog per scale ACHS or Q6hrs while NPO * Goal Range: Low 120 mg/dL - High 150 mg/dL * Correction Factor: 20 mg/dL/unit * Nutritional / Prandial insulin per carb ratio of 1 unit per 5 grams CHO consumed
[2023-08-18] MEDS: HYDROmorphone INJ 2 MG/ML SYR/VIAL IV STA (14:38)
[2023-08-18] MEDS: LORazepam 1 MG in SYRINGE 0.5 ML IV STA (14:39)
[2023-08-18] MEDS: GADOBUTROL 65ML VIAL IV ONE (15:36)
--- NOTE | 2023-08-18 16:19 | Magnetic Resonance Report ---
MR brain wo/w con CLINICAL HISTORY: assess for metastatic disease TECHNIQUE: Multiplanar and multisequence MR images of the brain were obtained prior to and following administration of gadolinium contrast. Comparison: Comparison is made to MRI brain 01/18/2018 and PET/CT 08/27/2019 FINDINGS: No abnormal restricted diffusion is identified. The white matter is unremarkable. The ventricular sys tem is normal in appearance. There is no mass effect or midline shift. There is no evidence of acute intraparenchymal hemorrhage. No extra axial fluid collections are seen. The corpus callosum, pituita ry gland, and cerebellar tonsils appear grossly unremarkable. Enhancing calvarial lesions are seen. Left greater than right ethmoid and maxillary sinus thickening noted. IMPRESSION: No intracranial metastases. There are multiple enhancing calvarial lesions compatible with bony metas tases. ACT 112: Negative or not required by law. Electronically signed by: Mariano Guerrier M.D. 08/18/2023 4:18 PM
[2023-08-18] MEDS: HYDROmorphone INJ 2 MG/ML SYR/VIAL IV PRN (21:09)
[2023-08-19 07:51] LABS: Hematocrit (blood only) 28.3 % (37.0-47.0); Hemoglobin 9.4 g/dl (12.0-16.0); Mean Corpuscular Hemoglobin 29.2 pg (25.0-34.0); Mean Corpuscular Hgb Conc 33.2 g/dL (32.0-36.0); Mean Corpuscular Volume 87.9 fL (80.0-100.0); Mean Platelet Volume 9.1 fL (9.4-12.4); Platelet Count 196 K/uL (130-400); RDW Coefficient of Variation 17.2 % (11.5-14.5); RDW Standard Deviation 55.6 fL (36.4-46.3); Red Blood Count 3.22 M/uL (4.20-5.40)
[2023-08-19 08:15] LABS: BUN Creatinine Ratio 23.4 (10-20); Calcium 8.4 mg/dl (8.6-10.3); Creatinine Clr Calc Pharmacy 108.9 ml/min; Est GFR (African American) 107.3 ml/min; Est GFR (Non-African American) 92.6 ml/min; Magnesium 1.7 mg/dl (1.7-2.4); Phosphorus 4.8 mg/dl (2.5-4.9); Potassium 4.1 mmol/L (3.5-5.1)
[2023-08-19] MEDS: LANTUS PER UNIT CHARGE SC ONE (08:43)
--- NOTE | 2023-08-19 10:06 | Pharmacy Report ---
Pharmacy Glycemic Short Note 2 - Date of Service August 19, 2023 - Glycemic Short BSG Results (Last 24 hours): 08/18/23 08/18/23 08/18/23 11:34 16:21 20:42 Glucose POC Glucose 97 87 174 H 08/19/23 08/19/23 07:30 07:47 Glucose 132 H POC Glucose 128 H OUTPATIENT ANTIDIABETIC REGIMEN: * Lantus 25 units SC BID * Aspart SS TID with meals * A1c = 7.5% ASSESSMENT: 08/18 * Stressors stable * Three BSG's below 100 mg/dL yesterday although no hyperglycemia. Suspect etiology is slightly too much basal insulin for *inpatient* needs. Outpatient home dose is 50 units/day divided BID, but inpatient needs based on prior chart review are more likely ~25-30 units/day. Will reduce Lantus and continue to split BID, similar to outpatient schedule * OK to leave Novolog as-is for now. Regimen is similar to previous admission(s) 08/17 * Yamilka received 50 units of basal insulin yesterday (25 [employer]ATE) * Fasting BSG this AM below goal range, reduce basal insulin by 20-30% based on bedtime BSG * No glycemic stressors noted at this time. * No changes to Novolog at this time. 08/16 * Yamilka is a 48 yo T2DM with h/o metastatic breast cancer currently on chemotherapy referred to the ED for evaluation of generalized weakness. She was recently admitted here 08/01-08/12. Her insulin regimen was very stable during that time. Will start patient on similar insulin doses. PLAN FOR INPATIENT GLYCEMIC CONTROL: * Basal insulin * Lantus 10 units x1 this AM then 10-20 units SC BID depending on BSG * Bolus insulin * NovoLog per scale ACHS or Q6hrs while NPO * Goal Range: Low 120 mg/dL - High 150 mg/dL * Correction Factor: 20 mg/dL/unit * Nutritional / Prandial insulin per carb ratio of 1 unit per 5 grams CHO consumed
[2023-08-19] MEDS: fentaNYL 75 MCG/HR TDSY TD SCH (13:25)
--- NOTE | 2023-08-19 14:06 | Hospitalist Progress Note ---
Date of Service August 19, 2023 Assessment & Plan (1) Weakness generalized: Plan Ms. Vega is a 48-year-old female with past medical history significant for metastatic breast cancer, diabetes, hypothyroidism history of hypercalcemia, depression with anxiety, peripheral neuropathy, history of small bowel obstruction admitted for progressive weakness and mechanical fall. CT revealed acute/subacute sacral fracture Pending bone scan and PT/OT #Progressive weakness #Fall, mechanical #Sacral Fracture CT hip reviewed: Mild likely acute or subacute nondisplaced pathologic inferior sacral fracture. PT/OT MRI negative Bone scan pending Plan for rehab if able given failure at home and now with mild sacral fracture #Breast cancer metastasized to bone: Patient presenting by referral of Oncology for evaluation of generalized weakness. Patient with history of metastatic breast cancer, currently on chemotherapy, last treatment 2 wks ago per pt. pt follows palliative and oncology. Ongoing chemotherapy Follows with Dr. Plascencia Continue pain medications as needed -Palliative care on consult, reviewed recommendations Continue PT OT Antiemetics as needed Case management to help with discharge planning Will need follow-up with oncology on discharge Fall precautions Antiemetics as needed #Anemia of chronic disease follow HnH. denies cp, palpitations. c/w home folic acid. stable Type II diabetes mellitus: SSI while in here Obesity: BMI 37 DVT Px: SQ Lovenox CODE STATUS: full code. Admission and Anticipated Discharge Date Admission Date: August 17, 2023 Subjective No acute concerns, awaiting bone scan and PT today states pain is better controlled worried about return to home 2/2 safety, eager for rehab Physical Exam Respiratory: normal respiratory effort, lungs clear to auscultation Cardiovascular: RRR, no murmur, no edema Neurologic: PERRL, EOMI, accommodation nl, no face palsy, no dysarthria Results & Data Results & Data Vital Signs (Past 12 Hours) Vital Signs Temp Pulse Resp BP Pulse Ox O2 Del Method 08/19/23 08:00 Room Air 08/19/23 07:46 36.5 C 88 16 117/78 97 Room Air Laboratory Results Short CBC 08/19/23 Range/Units 07:30 WBC 6.80 (4.8-10.8) K/ul Hgb 9.4 L (12.0-16.0) g/dl Hct 28.3 L (37.0-47.0) % Plt Count 196 (130-400) K/uL BMP 06/20/24 07:30 Sodium 139 Potassium 4.1 Chloride 106 Carbon Dioxide 26 BUN 18 Creatinine 0.77 Glucose 132 H Calcium 8.4 L Medications Administered Home Medications Medication Instructions Recorded Confirmed Last Taken insulin aspart U-100 100 unit/mL 0 sliding scale dose subcut AC 06/25/23 08/17/23 08/02/23 (3 mL) subcutaneous pen (Novolog FlexPen U-100 Insulin aspart) ondansetron 8 mg disintegrating 8 mg translingual BID PRN Nausea 06/25/23 08/17/23 Unknown tablet And Vomiting olanzapine 5 mg tablet (Zyprexa) 5 mg PO BID #60 tabs 07/12/23 08/17/23 08/02/23 am dose insulin glargine 100 unit/mL (3 25 unit (0.25 mL) subcut BID #0 mL 07/21/23 08/17/23 08/17/23 07:30 mL) subcutaneous pen (Lantus Solostar U-100 Insulin) hydromorphone 4 mg tablet 4 mg PO Q4H PRN severe 07/22/23 08/17/23 Unknown (Dilaudid) breakthrough cancer pain 1 month #180 tabs oxycodone 20 mg tablet 20 mg PO Q4 PRN severe cancer pain 08/02/23 08/17/23 Unknown fentanyl 75 mcg/hr transdermal 1 patch transdermal Q72H #3 ea 08/12/23 08/17/23 08/16/23 patch folic acid 1 mg tablet 1 mg PO QAM #30 tabs 08/12/23 08/17/23 Unknown sennosides 8.6 mg-docusate sodium 1 tab PO BID PRN Constipation #30 08/12/23 08/17/23 Unknown 50 mg tablet (Senokot-S) tabs Active Medications Generic Name Dose Route Start Last Admin Trade Name Freq PRN Reason Stop Dose Admin Fentanyl 1 patch 08/19/23 13:30 08/19/23 13:25 Fentanyl 75 Mcg/Hr Tdsy TD 09/02/23 13:29 1 patch Q72H JESSE Administration Folic Acid 1 mg 08/18/23 09:00 08/19/23 08:09 Folic Acid 1 Mg Tab PO 09/17/23 08:59 1 mg QAM JESSE Administration Heparin Sodium (Porcine) 5 ml 08/17/23 19:49 08/19/23 10:23 Heparin 100 Unit/Ml 5ml Flush FLUSH 09/16/23 19:48 5 ml PRN PRN Administration Flush Hydromorphone HCl 2 mg 08/18/23 09:14 08/19/23 13:37 Hydromorphone Inj 2 Mg/Ml Syr/Vial IV 09/01/23 09:13 2 mg Q2H PRN Administration Severe Pain (Scale 7, 8, 9,10) Hydromorphone HCl 1 mg 08/18/23 09:15 08/18/23 09:24 Hydromorphone Inj 0.5 Mg/0.5 Ml Syr IV 08/31/23 15:47 1 mg Q2H PRN Administration Severe Pain (Scale 7, 8, 9,10) Insulin Aspart 0 units 08/17/23 16:30 08/19/23 12:11 Insulin Aspart Per Unit Charge SC 09/16/23 16:29 13 units ACHS JESSE Administration Miscellaneous 1 each 08/19/23 13:30 08/19/23 13:24 Fentanyl Patch Remove & Waste N/A 09/18/23 13:29 1 each Q3D JESSE Administration Miscellaneous 1 each 08/17/23 13:45 08/19/23 08:09 Check Fentanyl Patch Placement N/A 09/16/23 13:44 1 each QS JESSE Administration Olanzapine 5 mg 08/17/23 21:00 08/19/23 08:10 Olanzapine 5 Mg Tablet PO 09/16/23 20:59 5 mg BID JESSE Administration
--- NOTE | 2023-08-19 14:46 | Nuclear Medicine Report ---
NM bone scan whole body HISTORY: 48 years-old Female falls, metastatic cancer COMPARISON: Chest CT 08/03/2023, CT abdomen and pelvis 07/07/2023, bone scan 04/08/2022, brain MRI 4. TECHNIQUE: Anterior and posterior whole body planar scintigraphic bone scan images were obtained foll owing the intravenous administration of 26.5 mCi technetium 99 MDP administered through the patient's [id number] catheter. Images were obtained three hours post injection. FINDINGS: Extensive multifocal pathologic tracer uptake is redemonstrated, compatible with the patient's histor y of metastatic breast cancer. Lesions are seen throughout the axial and appendicular skeletal system with overall progression compared to the bone scan from 04/08/2022. Lesions projected over the head, c ompatible with calvarial lesions. Decreased tracer uptake within the lower thoracic spine may be on a posttreatment related basis. Physiologic tracer activity within the collecting systems, urinary blad mark and soft tissues. Uptake within the sternum is likely related to combination of the skeletal meta stasis with pathologic fracturing. IMPRESSION: Extensive skeletal metastasis redemonstrated, progressed compared to the prior bone scan dated 04/08/2022. ACT 112: Negative or not required by law. The above report was generated using voice recognition software. It may contain grammatical, syntax o r spelling errors. Dictated: 08/19/2023 11:06 AM Transcribed: 08/19/2023 11:48 AM Ren [id number] [email or web address] Electronically signed by: Ruddy Chen M.D. 08/19/2023 2:45 PM
[2023-08-19] MEDS: LANTUS PER UNIT CHARGE SC SCH (20:50)
[2023-08-20 06:46] LABS: Hematocrit (blood only) 26.7 % (37.0-47.0); Hemoglobin 8.7 g/dl (12.0-16.0); Mean Corpuscular Hgb Conc 32.6 g/dL (32.0-36.0); Mean Platelet Volume 9.1 fL (9.4-12.4); Platelet Count 179 K/uL (130-400); RDW Coefficient of Variation 17.2 % (11.5-14.5); RDW Standard Deviation 55.5 fL (36.4-46.3)
[2023-08-20 07:02] LABS: BUN Creatinine Ratio 26.4 (10-20); Calcium 8.8 mg/dl (8.6-10.3); Creatinine Clr Calc Pharmacy 116.5 ml/min; Est GFR (African American) 116.4 ml/min; Est GFR (Non-African American) 100.4 ml/min; Magnesium 1.6 mg/dl (1.7-2.4); Phosphorus 4.8 mg/dl (2.5-4.9); Potassium 4.3 mmol/L (3.5-5.1)
[2023-08-20] MEDS: MAGNESIUM SULFATE / D5W 1 GM/100 ML BAG IV SCH (07:35)
--- NOTE | 2023-08-20 11:49 | Hospitalist Progress Note ---
Date of Service August 20, 2023 Assessment & Plan (1) Weakness generalized: Plan Ms. Vega is a 48-year-old female with past medical history significant for metastatic breast cancer, diabetes, hypothyroidism history of hypercalcemia, depression with anxiety, peripheral neuropathy, history of small bowel obstruction admitted for progressive weakness and mechanical fall. CT revealed acute/subacute sacral fracture Bone scan revealed extensive bone metastasis PT recommends inpatient physical therapy. Patient eager to regain strength lost from multiple repeated hospitalizations, refractory chemo related nausea/vomiting, and recurrent electrolyte imbalances, now with nondisplaced fracture. #Progressive weakness #Fall, mechanical #Sacral Fracture CT hip reviewed: Mild likely acute or subacute nondisplaced pathologic inferior sacral fracture. PT/OT MRI negative Bone scan pending Plan for rehab if able given failure at home and now with mild sacral fracture #Breast cancer metastasized to bone: Patient presenting by referral of Oncology for evaluation of generalized weakness. Patient with history of metastatic breast cancer, currently on chemotherapy, last treatment 2 wks ago per pt. pt follows palliative and oncology. Ongoing chemotherapy Follows with Dr. Plascencia Continue pain medications as needed -Palliative care on consult, reviewed recommendations Continue PT OT Antiemetics as needed Case management to help with discharge planning -Pending rehab authorization Will need follow-up with oncology on discharge Fall precautions Antiemetics as needed #Anemia of chronic disease follow HnH. denies cp, palpitations. c/w home folic acid. stable Type II diabetes mellitus: SSI while in here Obesity: BMI 37 DVT Px: SQ Lovenox CODE STATUS: full code. Admission and Anticipated Discharge Date Admission Date: August 17, 2023 Subjective NAEO Physical Exam Respiratory: normal respiratory effort, lungs clear to auscultation Cardiovascular: RRR, no murmur, no edema Neurologic: PERRL, EOMI, accommodation nl, no face palsy, no dysarthria Results & Data Results & Data Vital Signs (Past 12 Hours) Vital Signs Temp Pulse Resp BP Pulse Ox O2 Del Method 08/20/23 07:20 36.5 C 83 18 101/67 98 Room Air Laboratory Results Short CBC 08/20/23 Range/Units 06:12 WBC 7.10 (4.8-10.8) K/ul Hgb 8.7 L (12.0-16.0) g/dl Hct 26.7 L (37.0-47.0) % Plt Count 179 (130-400) K/uL BMP 08/20/23 06:12 Sodium 136 Potassium 4.3 Chloride 104 Carbon Dioxide 27 BUN 19 Creatinine 0.72 Glucose 135 H Calcium 8.8 Diagnostic Findings Bone scan revealed extensive metastasis compared to prior scan 04/2022 Medications Administered Home Medications Medication Instructions Recorded Confirmed Last Taken insulin aspart U-100 100 unit/mL 0 sliding scale dose subcut AC 06/25/23 08/17/23 08/02/23 (3 mL) subcutaneous pen (Novolog FlexPen U-100 Insulin aspart) ondansetron 8 mg disintegrating 8 mg translingual BID PRN Nausea 06/25/23 08/17/23 Unknown tablet And Vomiting olanzapine 5 mg tablet (Zyprexa) 5 mg PO BID #60 tabs 07/12/23 08/17/23 08/02/23 am dose insulin glargine 100 unit/mL (3 25 unit (0.25 mL) subcut BID #0 mL 07/21/23 08/17/23 08/17/23 07:30 mL) subcutaneous pen (Lantus Solostar U-100 Insulin) hydromorphone 4 mg tablet 4 mg PO Q4H PRN severe 07/22/23 08/17/23 Unknown (Dilaudid) breakthrough cancer pain 1 month #180 tabs oxycodone 20 mg tablet 20 mg PO Q4 PRN severe cancer pain 08/02/23 08/17/23 Unknown fentanyl 75 mcg/hr transdermal 1 patch transdermal Q72H #3 ea 08/12/23 08/17/23 08/16/23 patch folic acid 1 mg tablet 1 mg PO QAM #30 tabs 08/12/23 08/17/23 Unknown sennosides 8.6 mg-docusate sodium 1 tab PO BID PRN Constipation #30 08/12/23 08/17/23 Unknown 50 mg tablet (Senokot-S) tabs Active Medications Generic Name Dose Route Start Last Admin Trade Name Freq PRN Reason Stop Dose Admin Fentanyl 1 patch 08/19/23 13:30 08/19/23 13:25 Fentanyl 75 Mcg/Hr Tdsy TD 09/02/23 13:29 1 patch Q72H JESSE Administration Folic Acid 1 mg 08/18/23 09:00 08/20/23 08:27 Folic Acid 1 Mg Tab PO 09/17/23 08:59 1 mg QAM JESSE Administration Heparin Sodium (Porcine) 5 ml 08/17/23 19:49 08/20/23 06:19 Heparin 100 Unit/Ml 5ml Flush FLUSH 09/16/23 19:48 5 ml PRN PRN Administration Flush Hydromorphone HCl 2 mg 08/18/23 09:14 08/20/23 08:24 Hydromorphone Inj 2 Mg/Ml Syr/Vial IV 09/01/23 09:13 2 mg Q2H PRN Administration Severe Pain (Scale 7, 8, 9,10) Hydromorphone HCl 1 mg 08/18/23 09:15 08/18/23 09:24 Hydromorphone Inj 0.5 Mg/0.5 Ml Syr IV 08/31/23 15:47 1 mg Q2H PRN Administration Severe Pain (Scale 7, 8, 9,10) Insulin Aspart 0 units 08/17/23 16:30 08/20/23 08:37 Insulin Aspart Per Unit Charge SC 09/16/23 16:29 5 units ACHS JESSE Administration Insulin Glargine 0 units 08/19/23 21:00 08/20/23 08:36 Lantus Per Unit Charge SC 09/18/23 20:59 15 units BID JESSE Administration Protocol Miscellaneous 1 each 08/19/23 13:30 08/19/23 13:24 Fentanyl Patch Remove & Waste N/A 09/18/23 13:29 1 each Q3D JESSE Administration Miscellaneous 1 each 08/17/23 13:45 08/20/23 07:30 Check Fentanyl Patch Placement N/A 09/16/23 13:44 1 each QS JESSE Administration Olanzapine 5 mg 08/17/23 21:00 08/20/23 08:27 Olanzapine 5 Mg Tablet PO 09/16/23 20:59 5 mg BID JESSE Administration
[2023-08-20] MEDS: MAGNESIUM CHLORIDE W/CALCIUM 64MG DELAYED REL TAB PO SCH (12:15)
--- NOTE | 2023-08-20 15:23 | Pharmacy Report ---
Pharmacy Glycemic Short Note 2 - Date of Service August 20, 2023 - Glycemic Short BSG Results (Last 24 hours): 08/19/23 08/19/23 08/20/23 16:28 20:33 06:12 Glucose 135 H POC Glucose 89 142 H 08/20/23 07:30 Glucose POC Glucose 143 H OUTPATIENT ANTIDIABETIC REGIMEN: * Lantus 25 units SC BID * Aspart SS TID with meals * A1c = 7.5% ASSESSMENT: 08/19 * Yamilka received 45 units of insulin yesterday (25 were basal) * Fasting BSG this AM within goal range, continue current regimen * No changes to Novolog at this time, stressors stable 08/18 * Stressors stable * Three BSG's below 100 mg/dL yesterday although no hyperglycemia. Suspect etiology is slightly too much basal insulin for *inpatient* needs. Outpatient home dose is 50 units/day divided BID, but inpatient needs based on prior chart review are more likely ~25-30 units/day. Will reduce Lantus and continue to split BID, similar to outpatient schedule * OK to leave Novolog as-is for now. Regimen is similar to previous admission(s) 08/17 * Yamilka received 50 units of basal insulin yesterday (25 JIG WORKER) * Fasting BSG this AM below goal range, reduce basal insulin by 20-30% based on bedtime BSG * No glycemic stressors noted at this time. * No changes to Novolog at this time. 08/16 * Yamilka is a 48 yo T2DM with h/o metastatic breast cancer currently on chemotherapy referred to the ED for evaluation of generalized weakness. She was recently admitted here 08/01-08/12. Her insulin regimen was very stable during that time. Will start patient on similar insulin doses. PLAN FOR INPATIENT GLYCEMIC CONTROL: * Basal insulin * Lantus 10-20 units SC BID depending on BSG * Bolus insulin * NovoLog per scale ACHS or Q6hrs while NPO * Goal Range: Low 120 mg/dL - High 150 mg/dL * Correction Factor: 25 mg/dL/unit * Nutritional / Prandial insulin per carb ratio of 1 unit per 8 grams CHO consumed
[2023-08-20] MEDS: PROMETHAZINE HCL 12.5 MG in SODIUM CHLORIDE 0.9% 50 ML IV PRN (21:27)
[2023-08-21 07:37] LABS: CA 27.29 262 U/mL (<38); CA15-3 Breast Antigen 134 U/mL (<32)
--- NOTE | 2023-08-21 11:18 | Hospitalist Progress Note ---
Date of Service August 21, 2023 Assessment & Plan (1) Weakness generalized: Plan Ms. Vega is a 48-year-old female with past medical history significant for metastatic breast cancer, diabetes, hypothyroidism history of hypercalcemia, depression with anxiety, peripheral neuropathy, history of small bowel obstruction admitted for progressive weakness and mechanical fall. CT revealed acute/subacute sacral fracture Bone scan revealed extensive bone metastasis PT recommends inpatient physical therapy. Patient eager to regain strength lost from multiple repeated hospitalizations, refractory chemo related nausea/vomiting, and recurrent electrolyte imbalances, now with nondisplaced fracture. Plan for referral to other rehab facilities, patient reports she is not safe to go home, plan to pursue snf with rehab. #Constipation bisacodyl prn, declined any further agents at this time encouraged ambulation and hydration labs in am #Progressive weakness #Fall, mechanical #Sacral Fracture CT hip reviewed: Mild likely acute or subacute nondisplaced pathologic inferior sacral fracture. PT/OT MRI negative Bone scan c/w with metastatic disease Plan for SNF with Rehab #Breast cancer metastasized to bone: Patient presenting by referral of Oncology for evaluation of generalized weakness. Patient with history of metastatic breast cancer, currently on chemotherapy, last treatment 2 wks ago per pt. pt follows palliative and oncology. Ongoing chemotherapy Follows with Dr. Plascencia Continue pain medications as needed -Palliative care on consult, reviewed recommendations Continue PT OT Antiemetics as needed Case management to help with discharge planning -Pending rehab authorization Will need follow-up with oncology on discharge Fall precautions Antiemetics as needed #Anemia of chronic disease follow HnH. denies cp, palpitations. c/w home folic acid. stable Type II diabetes mellitus: SSI while in here Obesity: BMI 37 DVT Px: SQ Lovenox CODE STATUS: full code. Admission and Anticipated Discharge Date Admission Date: August 17, 2023 Subjective Reports nausea this morning and notes no BM in 3-4 days Discussed laxative--declined, waiting to see if she can go on her own this morning/afternoon---discussed adding prn, agreeable Endorses willingness to trial rehab despite [facility] Denies chest pain, vomiting, urinary concerns, or other acute issues at this time Physical Exam Constitutional: WD/WN, vitals as above Respiratory: normal respiratory effort, lungs clear to auscultation Cardiovascular: RRR, no murmur, no edema Neurologic: PERRL, EOMI, accommodation nl, no face palsy, no dysarthria Results & Data Results & Data Vital Signs (Past 12 Hours) Vital Signs Temp Pulse Resp BP Pulse Ox O2 Del Method 08/21/23 07:32 37.2 C 74 16 106/71 97 Room Air Medications Administered Home Medications Medication Instructions Recorded Confirmed Last Taken insulin aspart U-100 100 unit/mL 0 sliding scale dose subcut AC 06/25/23 08/17/23 08/02/23 (3 mL) subcutaneous pen (Novolog FlexPen U-100 Insulin aspart) ondansetron 8 mg disintegrating 8 mg translingual BID PRN Nausea 06/25/23 08/17/23 Unknown tablet And Vomiting olanzapine 5 mg tablet (Zyprexa) 5 mg PO BID #60 tabs 07/12/23 08/17/23 08/02/23 am dose insulin glargine 100 unit/mL (3 25 unit (0.25 mL) subcut BID #0 mL 07/21/23 08/17/23 08/17/23 07:30 mL) subcutaneous pen (Lantus Solostar U-100 Insulin) hydromorphone 4 mg tablet 4 mg PO Q4H PRN severe 07/22/23 08/17/23 Unknown (Dilaudid) breakthrough cancer pain 1 month #180 tabs oxycodone 20 mg tablet 20 mg PO Q4 PRN severe cancer pain 08/02/23 08/17/23 Unknown fentanyl 75 mcg/hr transdermal 1 patch transdermal Q72H #3 ea 08/12/23 08/17/23 08/16/23 patch folic acid 1 mg tablet 1 mg PO QAM #30 tabs 08/12/23 08/17/23 Unknown sennosides 8.6 mg-docusate sodium 1 tab PO BID PRN Constipation #30 08/12/23 08/17/23 Unknown 50 mg tablet (Senokot-S) tabs Active Medications Generic Name Dose Route Start Last Admin Trade Name Freq PRN Reason Stop Dose Admin Fentanyl 1 patch 08/19/23 13:30 08/19/23 13:25 Fentanyl 75 Mcg/Hr Tdsy TD 09/02/23 13:29 1 patch Q72H JESSE Administration Folic Acid 1 mg 08/18/23 09:00 08/21/23 09:18 Folic Acid 1 Mg Tab PO 09/17/23 08:59 Not Given QAM JESSE Heparin Sodium (Porcine) 5 ml 08/17/23 19:49 08/21/23 00:12 Heparin 100 Unit/Ml 5ml Flush FLUSH 09/16/23 19:48 5 ml PRN PRN Administration Flush Hydromorphone HCl 2 mg 08/18/23 09:14 08/21/23 08:01 Hydromorphone Inj 2 Mg/Ml Syr/Vial IV 09/01/23 09:13 2 mg Q2H PRN Administration Severe Pain (Scale 7, 8, 9,10) Hydromorphone HCl 1 mg 08/18/23 09:15 08/18/23 09:24 Hydromorphone Inj 0.5 Mg/0.5 Ml Syr IV 08/31/23 15:47 1 mg Q2H PRN Administration Severe Pain (Scale 7, 8, 9,10) Promethazine HCl 12.5 mg/ 50.5 mls @ 202 mls/hr 08/20/23 21:15 08/21/23 08:44 Sodium Chloride IV 09/19/23 21:14 Infused Q6H PRN Infusion Nausea And Vomiting Insulin Aspart 0 units 08/17/23 16:30 08/21/23 08:30 Insulin Aspart Per Unit Charge SC 09/16/23 16:29 Not Given ACHS [facility] Insulin Glargine 0 units 08/19/23 21:00 08/21/23 09:14 Lantus Per Unit Charge SC 09/18/23 20:59 15 units BID JESSE Administration Protocol Magnesium Chloride 64 mg 08/20/23 12:00 08/21/23 09:18 Magnesium Chloride W/Calcium 64mg Delayed Rel Tab PO 09/19/23 11:59 Not Given QAM JESSE Miscellaneous 1 each 08/19/23 13:30 08/19/23 13:24 Fentanyl Patch Remove & Waste N/A 09/18/23 13:29 1 each Q3D JESSE Administration Miscellaneous 1 each 08/17/23 13:45 08/21/23 08:04 Check Fentanyl Patch Placement N/A 09/16/23 13:44 1 each QS JESSE Administration Olanzapine 5 mg 08/17/23 21:00 08/21/23 09:18 Olanzapine 5 Mg Tablet PO 09/16/23 20:59 Not Given BID JESSE
[2023-08-22 06:09] LABS: Hematocrit (blood only) 27.1 % (37.0-47.0); Hemoglobin 8.8 g/dl (12.0-16.0); Mean Corpuscular Hemoglobin 28.9 pg (25.0-34.0); Mean Corpuscular Hgb Conc 32.5 g/dL (32.0-36.0); Mean Corpuscular Volume 89.1 fL (80.0-100.0); Mean Platelet Volume 8.9 fL (9.4-12.4); Platelet Count 170 K/uL (130-400); RDW Coefficient of Variation 17.2 % (11.5-14.5); RDW Standard Deviation 55.9 fL (36.4-46.3); Red Blood Count 3.04 M/uL (4.20-5.40); White Blood Count 9.55 K/ul (4.8-10.8)
[2023-08-22 06:27] LABS: BUN Creatinine Ratio 29.2 (10-20); Calcium 8.7 mg/dl (8.6-10.3); Creatinine Clr Calc Pharmacy 116.5 ml/min; Est GFR (African American) 116.4 ml/min; Est GFR (Non-African American) 100.4 ml/min; Magnesium 1.9 mg/dl (1.7-2.4); Phosphorus 4.7 mg/dl (2.5-4.9); Potassium 4.3 mmol/L (3.5-5.1)
--- NOTE | 2023-08-22 12:17 | Hospitalist Progress Note ---
Date of Service August 22, 2023 Assessment & Plan (1) Weakness generalized: Plan Ms. Vega is a 48-year-old female with past medical history significant for metastatic breast cancer, diabetes, hypothyroidism history of hypercalcemia, depression with anxiety, peripheral neuropathy, history of small bowel obstruction admitted for progressive weakness and mechanical fall. CT revealed acute/subacute sacral fracture Bone scan revealed extensive bone metastasis PT recommends inpatient physical therapy. Patient eager to regain strength lost from multiple repeated hospitalizations, refractory chemo related nausea/vomiting, and recurrent electrolyte imbalances, now with nondisplaced fracture. Plan for referral to other rehab facilities, patient reports she is not safe to go home, plan to pursue snf with rehab. #Constipation bisacodyl prn, declined any further agents at this time encouraged ambulation and hydration #Progressive weakness #Fall, mechanical #Sacral Fracture CT hip reviewed: Mild likely acute or subacute nondisplaced pathologic inferior sacral fracture. PT/OT MRI negative Bone scan c/w with metastatic disease Plan for SNF with Rehab, pending placement #Breast cancer metastasized to bone: Patient presenting by referral of Oncology for evaluation of generalized weakness. Patient with history of metastatic breast cancer, currently on chemotherapy, last treatment 2 wks ago per pt. pt follows palliative and oncology. Ongoing chemotherapy Follows with Dr. Plascencia Continue pain medications as needed -Palliative care on consult, reviewed recommendations Continue PT OT Antiemetics as needed Case management to help with discharge planning -Pending rehab authorization Will need follow-up with oncology on discharge Fall precautions Antiemetics as needed #Anemia of chronic disease follow HnH. denies cp, palpitations. c/w home folic acid. stable Type II diabetes mellitus: SSI while in here Obesity: BMI 37 DVT Px: SQ Lovenox CODE STATUS: full code. Pending approval to [facility] Admission and Anticipated Discharge Date Admission Date: August 17, 2023 Subjective NAEO, denies any concerns Referral to [facility] made, pending authorization Physical Exam Constitutional: WD/WN, vitals as above Respiratory: normal respiratory effort, lungs clear to auscultation Cardiovascular: RRR, no murmur, no edema Results & Data Results & Data Vital Signs (Past 12 Hours) Vital Signs Temp Pulse Resp BP Pulse Ox O2 Del Method 08/22/23 07:20 Room Air 08/22/23 07:08 36.6 C 86 16 99/66 L 94 Room Air Laboratory Results Short CBC 08/22/23 Range/Units 05:46 WBC 9.55 (4.8-10.8) K/ul Hgb 8.8 L (12.0-16.0) g/dl Hct 27.1 L (37.0-47.0) % Plt Count 170 (130-400) K/uL BMP 08/22/23 05:46 Sodium 138 Potassium 4.3 Chloride 104 Carbon Dioxide 28 BUN 21 Creatinine 0.72 Glucose 117 H Calcium 8.7 Medications Administered Home Medications Medication Instructions Recorded Confirmed Last Taken insulin aspart U-100 100 unit/mL 0 sliding scale dose subcut AC 06/25/23 08/17/23 08/02/23 (3 mL) subcutaneous pen (Novolog FlexPen U-100 Insulin aspart) ondansetron 8 mg disintegrating 8 mg translingual BID PRN Nausea 06/25/23 08/17/23 Unknown tablet And Vomiting olanzapine 5 mg tablet (Zyprexa) 5 mg PO BID #60 tabs 07/12/23 08/17/23 08/02/23 am dose insulin glargine 100 unit/mL (3 25 unit (0.25 mL) subcut BID #0 mL 07/21/23 08/17/23 08/17/23 07:30 mL) subcutaneous pen (Lantus Solostar U-100 Insulin) hydromorphone 4 mg tablet 4 mg PO Q4H PRN severe 07/22/23 08/17/23 Unknown (Dilaudid) breakthrough cancer pain 1 month #180 tabs oxycodone 20 mg tablet 20 mg PO Q4 PRN severe cancer pain 08/02/23 08/17/23 Unknown fentanyl 75 mcg/hr transdermal 1 patch transdermal Q72H #3 ea 08/12/23 08/17/23 08/16/23 patch folic acid 1 mg tablet 1 mg PO QAM #30 tabs 08/12/23 08/17/23 Unknown sennosides 8.6 mg-docusate sodium 1 tab PO BID PRN Constipation #30 08/12/23 08/17/23 Unknown 50 mg tablet (Senokot-S) tabs Active Medications Generic Name Dose Route Start Last Admin Trade Name Freq PRN Reason Stop Dose Admin Fentanyl 1 patch 08/19/23 13:30 08/19/23 13:25 Fentanyl 75 Mcg/Hr Tdsy TD 09/02/23 13:29 1 patch Q72H JESSE Administration Folic Acid 1 mg 08/18/23 09:00 08/22/23 08:38 Folic Acid 1 Mg Tab PO 09/17/23 08:59 Not Given QAM [facility] Heparin Sodium (Porcine) 5 ml 08/17/23 19:49 08/22/23 09:36 Heparin 100 Unit/Ml 5ml Flush FLUSH 09/16/23 19:48 5 ml PRN PRN Administration Flush Hydromorphone HCl 2 mg 08/18/23 09:14 08/22/23 12:05 Hydromorphone Inj 2 Mg/Ml Syr/Vial IV 09/01/23 09:13 2 mg Q2H PRN Administration Severe Pain (Scale 7, 8, 9,10) Hydromorphone HCl 1 mg 08/18/23 09:15 08/18/23 09:24 Hydromorphone Inj 0.5 Mg/0.5 Ml Syr IV 08/31/23 15:47 1 mg Q2H PRN Administration Severe Pain (Scale 7, 8, 9,10) Promethazine HCl 12.5 mg/ 50.5 mls @ 202 mls/hr 08/20/23 21:15 08/21/23 08:44 Sodium Chloride IV 09/19/23 21:14 Infused Q6H PRN Infusion Nausea And Vomiting Insulin Aspart 0 units 08/17/23 16:30 08/22/23 12:01 Insulin Aspart Per Unit Charge SC 09/16/23 16:29 Not Given ACHS [facility] Insulin Glargine 0 units 08/19/23 21:00 08/22/23 08:41 Lantus Per Unit Charge SC 09/18/23 20:59 15 units BID [facility] Administration Protocol Magnesium Chloride 64 mg 08/20/23 12:00 08/22/23 08:38 Magnesium Chloride W/Calcium 64mg Delayed Rel Tab PO 09/19/23 11:59 Not Given QAM [facility] Miscellaneous 1 each 08/19/23 13:30 08/19/23 13:24 Fentanyl Patch Remove & Waste N/A 09/18/23 13:29 1 each Q3D JESSE Administration Miscellaneous 1 each 08/17/23 13:45 08/22/23 08:38 Check Fentanyl Patch Placement N/A 09/16/23 13:44 1 each QS JESSE Administration Olanzapine 5 mg 08/17/23 21:00 08/22/23 08:38 Olanzapine 5 Mg Tablet PO 09/16/23 20:59 Not Given BID JESSE
--- NOTE | 2023-08-22 15:17 | Pharmacy Report ---
Pharmacy Glycemic Short Note 2 - Date of Service August 22, 2023 - Glycemic Short BSG Results (Last 24 hours): 08/21/23 08/22/23 08/22/23 16:49 05:46 07:39 Glucose 117 H POC Glucose 123 H 122 H 08/22/23 11:38 Glucose POC Glucose 112 H OUTPATIENT ANTIDIABETIC REGIMEN: * Lantus 25 units SC BID * Aspart SS TID with meals * A1c = 7.5% ASSESSMENT: 08/21: * Received 15 units of basal insulin yesterday. Patient refused bolus insulins and BSG check at HS yesterday. * Spoke with the nurse today. Yamilka is eating very little. Nurse said that if the calculated Novolog dose is under 3 units then patient refuses the dose. * BSGs have been well controlled on just basal insulin even with refusal of HS basal dose. Will continue basal insulin BID on a scale based on BSG. 08/19 * Yamilka received 45 units of insulin yesterday (25 were basal) * Fasting BSG this AM within goal range, continue current regimen * No changes to Novolog at this time, stressors stable 08/18 * Stressors stable * Three BSG's below 100 mg/dL yesterday although no hyperglycemia. Suspect etiology is slightly too much basal insulin for *inpatient* needs. Outpatient home dose is 50 units/day divided BID, but inpatient needs based on prior chart review are more likely ~25-30 units/day. Will reduce Lantus and continue to split BID, similar to outpatient schedule * OK to leave Novolog as-is for now. Regimen is similar to previous admission(s) 08/17 * Yamilka received 50 units of basal insulin yesterday (25 [employer]) * Fasting BSG this AM below goal range, reduce basal insulin by 20-30% based on bedtime BSG * No glycemic stressors noted at this time. * No changes to Novolog at this time. 08/16 * Yamilka is a 48 yo T2DM with h/o metastatic breast cancer currently on chemotherapy referred to the ED for evaluation of generalized weakness. She was recently admitted here 08/01-08/12. Her insulin regimen was very stable during that time. Will start patient on similar insulin doses. PLAN FOR INPATIENT GLYCEMIC CONTROL: * Basal insulin * Lantus 10/15/20 units SC BID depending on BSG * Bolus insulin * NovoLog per scale ACHS or Q6hrs while NPO * Goal Range: Low 120 mg/dL - High 150 mg/dL * Correction Factor: 25 mg/dL/unit * Nutritional / Prandial insulin per carb ratio of 1 unit per 8 grams CHO consumed
[2023-08-23] MEDS: bisacodyL 5 MG TABEC PO PRN (09:15)
--- NOTE | 2023-08-23 15:40 | Hospitalist Progress Note ---
Date of Service August 23, 2023 Assessment & Plan (1) Weakness generalized: Plan Ms. Vega is a 48-year-old female with past medical history significant for metastatic breast cancer, diabetes, hypothyroidism history of hypercalcemia, depression with anxiety, peripheral neuropathy, history of small bowel obstruction admitted for progressive weakness and mechanical fall. CT revealed acute/subacute sacral fracture Bone scan revealed extensive bone metastasis PT recommends inpatient physical therapy. Patient eager to regain strength lost from multiple repeated hospitalizations, refractory chemo related nausea/vomiting, and recurrent electrolyte imbalances, now with nondisplaced fracture. Plan for referral to other rehab facilities, patient reports she is not safe to go home, plan to pursue snf with rehab. Patient remains medically stable at this time. #Constipation bisacodyl prn, declined any further agents at this time encouraged ambulation and hydration #Progressive weakness #Fall, mechanical #Sacral Fracture CT hip reviewed: Mild likely acute or subacute nondisplaced pathologic inferior sacral fracture. PT/OT MRI negative Bone scan c/w with metastatic disease Plan for SNF with Rehab, pending placement #Breast cancer metastasized to bone: Patient presenting by referral of Oncology for evaluation of generalized weakness. Patient with history of metastatic breast cancer, currently on chemotherapy, last treatment 2 wks ago per pt. pt follows palliative and oncology. Ongoing chemotherapy Follows with Dr. Plascencia Continue pain medications as needed -Palliative care on consult, reviewed recommendations Continue PT OT Antiemetics as needed Case management to help with discharge planning -Pending rehab authorization Will need follow-up with oncology on discharge Fall precautions Antiemetics as needed #Anemia of chronic disease follow HnH. denies cp, palpitations. c/w home folic acid. stable Type II diabetes mellitus: SSI while in here Obesity: BMI 35.6 DVT Px: SQ Lovenox CODE STATUS: full code. Pending approval to [facility] or other facility Admission and Anticipated Discharge Date Admission Date: August 17, 2023 Subjective NAEO Reports feeling ok today, with decent appetite; pain better controlled Physical Exam Constitutional: WD/WN, vitals as above Respiratory: normal respiratory effort, lungs clear to auscultation Cardiovascular: RRR, no murmur, no edema Gastrointestinal (Abdomen): normal bowel sounds, soft, nontender, no hepatosplenomegaly Results & Data Results & Data Vital Signs (Past 12 Hours) Vital Signs Temp Pulse Resp BP Pulse Ox O2 Del Method 08/23/23 14:51 36.5 C 86 14 92/61 L 98 Room Air 08/23/23 07:53 Room Air 08/23/23 07:25 36.6 C 83 14 88/57 L 97 Room Air Medications Administered Home Medications Medication Instructions Recorded Confirmed Last Taken insulin aspart U-100 100 unit/mL 0 sliding scale dose subcut AC 06/25/23 08/17/23 08/02/23 (3 mL) subcutaneous pen (Novolog FlexPen U-100 Insulin aspart) ondansetron 8 mg disintegrating 8 mg translingual BID PRN Nausea 06/25/23 08/17/23 Unknown tablet And Vomiting olanzapine 5 mg tablet (Zyprexa) 5 mg PO BID #60 tabs 07/12/23 08/17/23 08/02/23 am dose insulin glargine 100 unit/mL (3 25 unit (0.25 mL) subcut BID #0 mL 07/21/23 08/17/23 08/17/23 07:30 mL) subcutaneous pen (Lantus Solostar U-100 Insulin) hydromorphone 4 mg tablet 4 mg PO Q4H PRN severe 07/22/23 08/17/23 Unknown (Dilaudid) breakthrough cancer pain 1 month #180 tabs oxycodone 20 mg tablet 20 mg PO Q4 PRN severe cancer pain 08/02/23 08/17/23 Unknown fentanyl 75 mcg/hr transdermal 1 patch transdermal Q72H #3 ea 08/12/23 08/17/23 08/16/23 patch folic acid 1 mg tablet 1 mg PO QAM #30 tabs 08/12/23 08/17/23 Unknown sennosides 8.6 mg-docusate sodium 1 tab PO BID PRN Constipation #30 08/12/23 08/17/23 Unknown 50 mg tablet (Senokot-S) tabs Active Medications Generic Name Dose Route Start Last Admin Trade Name Freq PRN Reason Stop Dose Admin Bisacodyl 5 mg 08/21/23 11:13 08/23/23 09:15 Bisacodyl 5 Mg Tabec PO 09/20/23 11:12 5 mg Q8H PRN Administration Constipation Fentanyl 1 patch 08/19/23 13:30 08/22/23 12:34 Fentanyl 75 Mcg/Hr Tdsy TD 09/02/23 13:29 1 patch Q72H JESSE Administration Folic Acid 1 mg 08/18/23 09:00 08/23/23 09:04 Folic Acid 1 Mg Tab PO 09/17/23 08:59 1 mg QAM JESSE Administration Heparin Sodium (Porcine) 5 ml 08/17/23 19:49 08/23/23 14:43 Heparin 100 Unit/Ml 5ml Flush FLUSH 09/16/23 19:48 5 ml PRN PRN Administration Flush Hydromorphone HCl 2 mg 08/18/23 09:14 08/23/23 14:15 Hydromorphone Inj 2 Mg/Ml Syr/Vial IV 09/01/23 09:13 2 mg Q2H PRN Administration Severe Pain (Scale 7, 8, 9,10) Hydromorphone HCl 1 mg 08/18/23 09:15 08/18/23 09:24 Hydromorphone Inj 0.5 Mg/0.5 Ml Syr IV 08/31/23 15:47 1 mg Q2H PRN Administration Severe Pain (Scale 7, 8, 9,10) Promethazine HCl 12.5 mg/ 50.5 mls @ 202 mls/hr 08/20/23 21:15 08/23/23 14:15 Sodium Chloride IV 09/19/23 21:14 202 mls/hr Q6H PRN Administration Nausea And Vomiting Insulin Aspart 0 units 08/17/23 16:30 08/23/23 12:26 Insulin Aspart Per Unit Charge SC 09/16/23 16:29 8 units ACHS JESSE Administration Insulin Glargine 0 units 08/19/23 21:00 08/23/23 09:10 Lantus Per Unit Charge SC 09/18/23 20:59 10 units BID JESSE Administration Protocol Magnesium Chloride 64 mg 08/20/23 12:00 08/23/23 09:04 Magnesium Chloride W/Calcium 64mg Delayed Rel Tab PO 09/19/23 11:59 Not Given QAM [facility] Miscellaneous 1 each 08/19/23 13:30 08/22/23 12:32 Fentanyl Patch Remove & Waste N/A 09/18/23 13:29 1 each Q3D JESSE Administration Miscellaneous 1 each 08/17/23 13:45 08/23/23 09:04 Check Fentanyl Patch Placement N/A 09/16/23 13:44 1 each QS JESSE Administration Olanzapine 5 mg 08/17/23 21:00 08/23/23 09:03 Olanzapine 5 Mg Tablet PO 09/16/23 20:59 5 mg BID JESSE Administration
[2023-08-24 06:20] LABS: BUN Creatinine Ratio 27.9 (10-20); Calcium 8.9 mg/dl (8.6-10.3); Creatinine Clr Calc Pharmacy 97.5 ml/min; Est GFR (African American) 93.9 ml/min; Magnesium 1.8 mg/dl (1.7-2.4)
--- NOTE | 2023-08-24 12:12 | Hospitalist Progress Note ---
Date of Service August 24, 2023 Assessment & Plan (1) Weakness generalized: Plan Ms. Vega is a 48-year-old female with past medical history significant for metastatic breast cancer, diabetes, hypothyroidism history of hypercalcemia, depression with anxiety, peripheral neuropathy, history of small bowel obstruction admitted for progressive weakness and mechanical fall. CT revealed acute/subacute sacral fracture Bone scan revealed extensive bone metastasis PT recommends inpatient physical therapy. Patient eager to regain strength lost from multiple repeated hospitalizations, refractory chemo related nausea/vomiting, and recurrent electrolyte imbalances, now with nondisplaced fracture. Plan for referral to other rehab facilities, patient reports she is not safe to go home, plan to pursue snf with rehab. Patient remains medically stable at this time. #Constipation bisacodyl prn, declined any further agents at this time encouraged ambulation and hydration #Progressive weakness #Fall, mechanical #Sacral Fracture CT hip reviewed: Mild likely acute or subacute nondisplaced pathologic inferior sacral fracture. PT/OT MRI negative Bone scan c/w with metastatic disease Plan for SNF with Rehab, pending placement #Breast cancer metastasized to bone: Patient presenting by referral of Oncology for evaluation of generalized weakness. Patient with history of metastatic breast cancer, currently on chemotherapy, last treatment 2 wks ago per pt. pt follows palliative and oncology. Ongoing chemotherapy Follows with Dr. Plascencia Continue pain medications as needed -Palliative care on consult, reviewed recommendations Continue PT OT: denied acute rehab, pending SNF Antiemetics as needed Case management to help with discharge planning -Pending rehab authorization Will need follow-up with oncology on discharge Fall precautions Antiemetics as needed #Anemia of chronic disease follow [facility]. denies cp, palpitations. c/w home folic acid. stable Type II diabetes mellitus: SSI while in here Obesity: BMI 35.6 DVT Px: SQ Lovenox CODE STATUS: full code. Pending approval to [facility] or other facility, authorization resubmitted 08/23 Admission and Anticipated Discharge Date Admission Date: August 17, 2023 Subjective Endorses pain generalized, attempting to work with rehab and walk to bathroom, but reports notable exhaustion Physical Exam Constitutional: WD/WN, vitals as above Respiratory: normal respiratory effort, lungs clear to auscultation Cardiovascular: RRR, no murmur, no edema Gastrointestinal (Abdomen): normal bowel sounds, soft, nontender, no hepatosplenomegaly Neurologic: PERRL, EOMI, accommodation nl, no face palsy, no dysarthria Results & Data Results & Data Vital Signs (Past 12 Hours) Vital Signs Temp Pulse Resp BP Pulse Ox O2 Del Method 08/24/23 07:47 Room Air 08/24/23 07:12 37.4 C 95 H 16 111/71 94 Room Air Laboratory Results [facility] 08/24/23 05:35 Sodium 135 L Potassium 5.0 Chloride 102 Carbon Dioxide 26 BUN 24 H Creatinine 0.86 Glucose 167 H Calcium 8.9 Medications Administered Home Medications Medication Instructions Recorded Confirmed Last Taken insulin aspart U-100 100 unit/mL 0 sliding scale dose subcut AC 06/25/23 08/17/23 08/02/23 (3 mL) subcutaneous pen (Novolog FlexPen U-100 Insulin aspart) ondansetron 8 mg disintegrating 8 mg translingual BID PRN Nausea 06/25/23 08/17/23 Unknown tablet And Vomiting olanzapine 5 mg tablet (Zyprexa) 5 mg PO BID #60 tabs 07/12/23 08/17/23 08/02/23 am dose insulin glargine 100 unit/mL (3 25 unit (0.25 mL) subcut BID #0 mL 07/21/23 08/17/23 08/17/23 07:30 mL) subcutaneous pen (Lantus Solostar U-100 Insulin) hydromorphone 4 mg tablet 4 mg PO Q4H PRN severe 07/22/23 08/17/23 Unknown (Dilaudid) breakthrough cancer pain 1 month #180 tabs oxycodone 20 mg tablet 20 mg PO Q4 PRN severe cancer pain 08/02/23 08/17/23 Unknown fentanyl 75 mcg/hr transdermal 1 patch transdermal Q72H #3 ea 08/12/23 08/17/23 08/16/23 patch folic acid 1 mg tablet 1 mg PO QAM #30 tabs 08/12/23 08/17/23 Unknown sennosides 8.6 mg-docusate sodium 1 tab PO BID PRN Constipation #30 08/12/23 08/17/23 Unknown 50 mg tablet (Senokot-S) tabs Active Medications Generic Name Dose Route Start Last Admin Trade Name Freq PRN Reason Stop Dose Admin Bisacodyl 5 mg 08/21/23 11:13 08/23/23 09:15 Bisacodyl 5 Mg Tabec PO 09/20/23 11:12 5 mg Q8H PRN Administration Constipation Fentanyl 1 patch 08/19/23 13:30 08/22/23 12:34 Fentanyl 75 Mcg/Hr Tdsy TD 09/02/23 13:29 1 patch Q72H JESSE Administration Folic Acid 1 mg 08/18/23 09:00 08/24/23 08:05 Folic Acid 1 Mg Tab PO 09/17/23 08:59 1 mg QAM JESSE Administration Heparin Sodium (Porcine) 5 ml 08/17/23 19:49 08/24/23 11:47 Heparin 100 Unit/Ml 5ml Flush FLUSH 09/16/23 19:48 5 ml PRN PRN Administration Flush Hydromorphone HCl 2 mg 08/18/23 09:14 08/24/23 11:47 Hydromorphone Inj 2 Mg/Ml Syr/Vial IV 09/01/23 09:13 2 mg Q2H PRN Administration Severe Pain (Scale 7, 8, 9,10) Hydromorphone HCl 1 mg 08/18/23 09:15 08/18/23 09:24 Hydromorphone Inj 0.5 Mg/0.5 Ml Syr IV 08/31/23 15:47 1 mg Q2H PRN Administration Severe Pain (Scale 7, 8, 9,10) Promethazine HCl 12.5 mg/ 50.5 mls @ 202 mls/hr 08/20/23 21:15 08/24/23 00:59 Sodium Chloride IV 09/19/23 21:14 Infused Q6H PRN Infusion Nausea And Vomiting Insulin Aspart 0 units 08/17/23 16:30 08/24/23 12:04 Insulin Aspart Per Unit Charge SC 09/16/23 16:29 Not Given ACHS [facility] Insulin Glargine 0 units 08/19/23 21:00 08/24/23 08:04 Lantus Per Unit Charge SC 09/18/23 20:59 15 units BID JESSE Administration Protocol Magnesium Chloride 64 mg 08/20/23 12:00 08/24/23 08:05 Magnesium Chloride W/Calcium 64mg Delayed Rel Tab PO 09/19/23 11:59 64 mg QAM JESSE Administration Miscellaneous 1 each 08/19/23 13:30 08/22/23 12:32 Fentanyl Patch Remove & Waste N/A 09/18/23 13:29 1 each Q3D JESSE Administration Miscellaneous 1 each 08/17/23 13:45 08/24/23 08:15 Check Fentanyl Patch Placement N/A 09/16/23 13:44 1 each QS JESSE Administration Olanzapine 5 mg 08/17/23 21:00 08/24/23 08:05 Olanzapine 5 Mg Tablet PO 09/16/23 20:59 5 mg BID JESSE Administration
[2023-08-25 06:43] LABS: BUN Creatinine Ratio 27.1 (10-20); Calcium 8.6 mg/dl (8.6-10.3); Creatinine Clr Calc Pharmacy 98.7 ml/min; Est GFR (African American) 95.2 ml/min; Est GFR (Non-African American) 82.2 ml/min
[2023-08-25] MEDS: oxyCODONE HCL IR 5 MG TAB (IMMEDIATE RELEASE) PO PRN (08:49)
--- NOTE | 2023-08-25 14:55 | Hospitalist Progress Note ---
Date of Service August 25, 2023 Assessment & Plan (1) Weakness generalized: Plan Ms. Vega is a 48-year-old female with past medical history significant for metastatic breast cancer, diabetes, hypothyroidism, history of hypercalcemia, depression with anxiety, peripheral neuropathy, history of small bowel obstruction admitted for progressive weakness and mechanical fall. CT revealed acute/subacute sacral fracture Bone scan revealed extensive bone metastasis PT recommends inpatient physical therapy. Patient eager to regain strength lost from multiple repeated hospitalizations, refractory chemo related nausea/vomiting, and recurrent electrolyte imbalances, now with nondisplaced fracture. Plan for referral to other rehab facilities, patient reports she is not safe to go home, plan to pursue snf with rehab. Patient remains medically stable at this time. Per previous provider with addendum, she was previously treated for the following: Constipation bisacodyl prn, declined any further agents at this time encouraged ambulation and hydration Progressive weakness Fall, mechanical Sacral Fracture CT hip reviewed: Mild likely acute or subacute nondisplaced pathologic inferior sacral fracture. PT/OT MRI negative Bone scan consistent with metastatic disease Plan for SNF with Rehab, pending placement Breast cancer metastasized to bone: Patient presenting by referral of Oncology for evaluation of generalized weakness. Patient with history of metastatic breast cancer, currently on chemotherapy, last treatment 2 wks ago per pt. pt follows palliative and oncology. Ongoing chemotherapy Follows with Dr. Plascencia Continue pain medications as needed -Palliative care on consult, reviewed recommendations Continue PT OT: denied acute rehab, approved SNF Antiemetics as needed Case management to help with discharge planning -Pending rehab authorization Will need follow-up with oncology on discharge Fall precautions Antiemetics as needed Anemia of chronic disease follow H and H. denies cp, palpitations. c/w home folic acid. stable Type II diabetes mellitus: SSI while in here Obesity: BMI 35.6 DVT Px: SQ Lovenox CODE STATUS: full code. Pending approval to [facility] or other facility, authorization resubmitted 08/23 Admission and Anticipated Discharge Date Admission Date: August 17, 2023 Subjective Pt was seen laying in bed. Denied acute concerns. Review of Systems Review of Systems: All systems reviewed & are unremarkable except as noted in Subjective Physical Exam Physical Exam: General: Alert, oriented. No acute distress Psych: Appropriate mood and affect Neuro: No gross deficits in bed HEENT: NC/AT CV: RRR Resp: Breath sounds clear bilaterally, no increased effort of breathing. Abdomen: Soft, nontender Extremities: No edema in lower extremities bilaterally. Results & Data Results & Data Vital Signs (Past 12 Hours) Vital Signs Temp Pulse Pulse Resp BP Pulse Ox O2 Del Method 08/25/23 08:55 90 131/80 08/25/23 07:05 Room Air 08/25/23 07:03 36.5 C 82 16 91/58 L 94 Room Air
--- NOTE | 2023-08-26 12:22 | Hospitalist Progress Note ---
Date of Service August 26, 2023 Assessment & Plan (1) Weakness generalized: Plan Ms. Vega is a 48-year-old female with past medical history significant for metastatic breast cancer, diabetes, hypothyroidism, history of hypercalcemia, depression with anxiety, peripheral neuropathy, history of small bowel obstruction admitted for progressive weakness and mechanical fall. CT revealed acute/subacute sacral fracture Bone scan revealed extensive bone metastasis PT recommends inpatient physical therapy. Patient eager to regain strength lost from multiple repeated hospitalizations, refractory chemo related nausea/vomiting, and recurrent electrolyte imbalances, now with nondisplaced fracture. Plan for referral to other rehab facilities, patient reports she is not safe to go home, plan to pursue snf with rehab. Patient remains medically stable at this time. SNF denied. Peer to peer completed and denied on 08/25, advised pt can appeal. Pt declining appeal per CM, wants to go home. Looking into ramp. Per previous provider with addendum, she was previously treated for the following: Constipation bisacodyl prn, declined any further agents at this time encouraged ambulation and hydration Progressive weakness Fall, mechanical Sacral Fracture CT hip reviewed: Mild likely acute or subacute nondisplaced pathologic inferior sacral fracture. PT/OT MRI negative Bone scan consistent with metastatic disease Plan for SNF with Rehab, pending placement Breast cancer metastasized to bone: Patient presenting by referral of Oncology for evaluation of generalized weak ness. Patient with history of metastatic breast cancer, currently on chemotherapy, last treatment 2 wks ago per pt. pt follows palliative and oncology. Ongoing chemotherapy Follows with Dr. Plascencia Continue pain medications as needed -Palliative care on consult, reviewed recommendations Continue PT OT: denied acute rehab, approved SNF Antiemetics as needed Case management to help with discharge planning -Pending rehab authorization Will need follow-up with oncology on discharge Fall precautions Antiemetics as needed Anemia of chronic disease follow H and H. denies cp, palpitations. c/w home folic acid. stable Type II diabetes mellitus: SSI while in here Obesity: BMI 35.6 DVT Px: SQ Lovenox CODE STATUS: full code. Pending approval to [facility] or other facility, authorization resubmitted 08/23. Peer to peer denied on 08/25, advised pt can appeal. Admission and Anticipated Discharge Date Admission Date: August 17, 2023 Subjective Pt was seen laying in bed. Denied acute concerns. Per nursing refusing glucose checks Peer to peer completed, denied. Advised pt can appeal. Review of Systems Review of Systems: All systems reviewed & are unremarkable except as noted in Subjective Physical Exam Physical Exam: General: Alert, oriented. No acute distress Psych: Appropriate mood and affect Neuro: No gross deficits in bed HEENT: NC/AT CV: RRR Resp: Breath sounds clear bilaterally, no increased effort of breathing. Abdomen: Soft, nontender Extremities: No edema in lower extremities bilaterally. Results & Data Results & Data Vital Signs (Past 12 Hours) Vital Signs Temp Pulse Resp BP Pulse Ox O2 Del Method 08/26/23 09:02 Room Air 08/26/23 07:47 36.7 C 87 16 99/64 L 95 Room Air
--- NOTE | 2023-08-26 12:36 | Pharmacy Report ---
Pharmacy Glycemic Short Note 2 - Date of Service August 26, 2023 - Glycemic Short BSG Results (Last 24 hours): 08/25/23 08/25/23 08/26/23 16:42 20:52 07:45 POC Glucose 99 102 H 123 H OUTPATIENT ANTIDIABETIC REGIMEN: * Lantus 25 units SC BID * Aspart SS TID with meals * A1c = 7.5% ASSESSMENT: 08/25: * BSGs have been well controlled past 48 hours, 840-68-07-102 mg/dL yesterday- patient has not received any novolog, 20 units of basal * Patient has been refusing novolog, slightly reduced basal today, will loosen carb ratio as intake levels diminished/not requiring at this time 08/21: * Received 15 units of basal insulin yesterday. Patient refused bolus insulins and BSG check at HS yesterday. * Spoke with the nurse today. Yamilka is eating very little. Nurse said that if the calculated Novolog dose is under 3 units then patient refuses the dose. * BSGs have been well controlled on just basal insulin even with refusal of HS basal dose. Will continue basal insulin BID on a scale based on BSG. 08/19 * Yamilka received 45 units of insulin yesterday (25 were basal) * Fasting BSG this AM within goal range, continue current regimen * No changes to Novolog at this time, stressors stable 08/18 * Stressors stable * Three BSG's below 100 mg/dL yesterday although no hyperglycemia. Suspect etiology is slightly too much basal insulin for *inpatient* needs. Outpatient home dose is 50 units/day divided BID, but inpatient needs based on prior chart review are more likely ~25-30 units/day. Will reduce Lantus and continue to split BID, similar to outpatient schedule * OK to leave Novolog as-is for now. Regimen is similar to previous admission(s) 08/17 * Yamilka received 50 units of basal insulin yesterday (25 [employer]) * Fasting BSG this AM below goal range, reduce basal insulin by 20-30% based on bedtime BSG * No glycemic stressors noted at this time. * No changes to Novolog at this time. 08/16 * Yamilka is a 48 yo T2DM with h/o metastatic breast cancer currently on chemotherapy referred to the ED for evaluation of generalized weakness. She was recently admitted here 08/01-08/12. Her insulin regimen was very stable during that time. Will start patient on similar insulin doses. PLAN FOR INPATIENT GLYCEMIC CONTROL: * Basal insulin * Lantus 8/10 units SC BID depending on BSG * Bolus insulin * NovoLog per scale ACHS or Q6hrs while NPO * Goal Range: Low 120 mg/dL - High 150 mg/dL * Correction Factor: 25 mg/dL/unit * Nutritional / Prandial insulin per carb ratio of 1 unit per 10 grams CHO consumed
--- NOTE | 2023-08-26 13:00 | Palliative Care Progress Note ---
Date of Service August 26, 2023 Assessment & Plan (1) Cancer related pain: Plan: Continue TDF 75mcg q3days and and use as needed oral Dilaudid and oral oxycodone to manage her breakthrough pain (2) Therapeutic opioid-induced constipation (OIC): Plan: Bowel regimen in place -remains on senna S 2 tab BID and Miralax one unit dose daily; can potentially consider trial of Relistor but will need KUB to document no obstruction prior to first dose (3) Intractable nausea and vomiting: Plan: improved (4) Depression: (5) Advanced care planning/counseling discussion: Plan: met with Ann gomes 45min face to face for ACP logotherapy and legacy review discussions She has progressed in her efforts to establish boundaries at home with clear expectations of what she needs her children to do. She reports that her oldest son decided to move out and was very public and his opinions about everything on social media. She states that the younger 2 children are currently being assisted by her niece but she worries what will happen when her niece delivers the baby later in August. She has begun to think about some Legacy work and projects she wants to do. I have provided her with a [employer]) art project for handprint frame. She plans to do this with her children at home when she returns. She is very worried that she will again be denied approval for rehab. She was already declined for acute rehab at [facility] and efforts are being undertaken at this junction to try and find approval through a [facility] facility. (6) Palliative care by specialist: (7) Breast cancer metastasized to bone: Plan as above RTC with me later this month, we will schedule this in [facility] to match her appt Thank you for allowing us to participate in the ongoing care of this patient. Please don't hesitate to call or page with any additional concerns. Dr. Luna Limon DNP Director, Palliative Care Admission and Anticipated Discharge Date Admission Date: August 17, 2023 Subjective Awaiting prior authorization for discharge to [facility] facility rehab. Using a walker to ambulate, continues to have periods where bilateral lower extremity weakness becomes pronounced and she feels like she may have a fall. Pain remains an ongoing problem but so long as she alternates oral Dilaudid with oral oxycodone, she is able to tolerate the level of pain. She does not wish to increase her transdermal fentanyl patch as this has in the past caused significant weakness, confusion and mental clouding. The current dose of 75 mcg is about the most she can tolerate from transdermal fentanyl patch. Nausea has improved. She is able to tolerate fairly regular diet and a good mix of solid foods and liquids. It is sometimes challenging to assure proper hydration but she continues to make a strong effort. Psychosocial issues at home noted. She continues to address those as best as she is able. Review of Systems Review of Systems: All systems reviewed & are unremarkable except as noted in Subjective Physical Exam Physical Exam: Chronically ill appearing, tearful intermittently, fatigued bitemp wasting, alopecia/chemo related; perrla, EOMIs Neck supple, no stridor, edentulous, MM dry Resp effort WAL, no use of accessory muscles S1S2 Abd soft, NTP, BS+ Anterior to lateral left ribs/chest and back +TTP +generalized weakness, LLE >> RLE paraspinal tenderness, rigth hip tenderness AAOx3 skin dry no BLE edema Results & Data Vital Signs (Past 12 Hours) Vital Signs Temp Pulse Resp BP Pulse Ox O2 Del Method 08/26/23 09:02 Room Air 08/26/23 07:47 36.7 C 87 16 99/64 L 95 Room Air Laboratory Results 08/27/23 08/27/23 08/26/23 Range/Units 11:28 07:17 20:39 Sodium (136-145) mmol/L Potassium (3.5-5.1) mmol/L Chloride (98-107) mmol/L Carbon Dioxide (21-32) mmol/L Anion Gap (3-11) BUN (6-23) mg/dl Creatinine (0.6-1.2) mg/dl Est Cr Clr Drug Dosing ml/min Est GFR ( Amer) ml/min Est GFR (Non-Af Amer) ml/min BUN/Creatinine Ratio (10-20) Glucose (70-99(Fasting)) mg/dl POC Glucose 106 H 94 136 H (70-99) mg/dl Calcium (8.6-10.3) mg/dl 08/26/23 08/25/23 08/25/23 Range/Units 07:45 20:52 16:42 Sodium (136-145) mmol/L Potassium (3.5-5.1) mmol/L Chloride (98-107) mmol/L Carbon Dioxide (21-32) mmol/L Anion Gap (3-11) BUN (6-23) mg/dl Creatinine (0.6-1.2) mg/dl Est Cr Clr Drug Dosing ml/min Est GFR ( Amer) ml/min Est GFR (Non-Af Amer) ml/min BUN/Creatinine Ratio (10-20) Glucose (70-99(Fasting)) mg/dl POC Glucose 123 H 102 H 99 (70-99) mg/dl Calcium (8.6-10.3) mg/dl 08/25/23 08/25/23 08/25/23 Range/Units 11:25 07:42 05:54 Sodium 138 (136-145) mmol/L Potassium 4.0 (3.5-5.1) mmol/L Chloride 104 (98-107) mmol/L Carbon Dioxide 25 (21-32) mmol/L Anion Gap 9 (3-11) BUN 23 (6-23) mg/dl Creatinine 0.85 (0.6-1.2) mg/dl Est Cr Clr Drug Dosing 98.7 ml/min Est GFR ( Amer) 95.2 ml/min Est GFR (Non-Af Amer) 82.2 ml/min BUN/Creatinine Ratio 27.1 H (10-20) Glucose 97 (70-99(Fasting)) mg/dl POC Glucose 91 102 H (70-99) mg/dl Calcium 8.6 (8.6-10.3) mg/dl 08/24/23 08/24/23 Range/Units 20:33 16:30 Sodium (136-145) mmol/L Potassium (3.5-5.1) mmol/L Chloride (98-107) mmol/L Carbon Dioxide (21-32) mmol/L Anion Gap (3-11) BUN (6-23) mg/dl Creatinine (0.6-1.2) mg/dl Est Cr Clr Drug Dosing ml/min Est GFR ( Amer) ml/min Est GFR (Non-Af Amer) ml/min BUN/Creatinine Ratio (10-20) Glucose (70-99(Fasting)) mg/dl POC Glucose 101 H 123 H (70-99) mg/dl Calcium (8.6-10.3) mg/dl Diagnostic Findings Hip/Pelvis X-Ray 08/17/23 09:51 XR hip RT 2V w pelvis CLINICAL HISTORY: fall hip pain TECHNIQUE: 2 views of the right hip and single frontal view of the pelvis were obtained. Comparison: Comparison is made to CT abdomen pelvis 07/07/2023 FINDINGS: There is no evidence of an acute fracture. Joint spaces are well-preserved. No soft tissue abnormality is seen. Altered architecture of the trabeculae co mpatible with diffuse osseous metastatic disease. IMPRESSION: No evidence of acute osseous injury. ACT 112: Negative or not required by law. Electronically signed by: Mariano Guerrier M.D. 08/17/2023 10:[address] 08/17/23 12:05 CT hip RT wo con HISTORY: 48 years-old Female painful/decreased right hip rom, fall Acute pain of the right hip with limited range of motion. History of metastatic breast cancer. COMPARISON: Radiographs 08/17/2023, CTA abdomen and pelvis 07/07/2023. TECHNIQUE: Multiple axial CT images of the right hip were obtained without IV c ontrast. A dose lowering technique was used consistent with the principals of ALARA. FINDINGS: Multifocal skeletal metastasis is redemonstrated, which are predominantly osteolytic. Index 2 cm right iliac lesion on image 45 is previously measured at 1.8 cm. Right acetabular 2.4 cm lesion on image 180 previously measured 2.3 cm. A 2.5 cm femoral neck destructive lesion is similar in size, however, demonstrates progressive cortical destruction. There is overall no significant change from prior. Several of the lesions are again noted extending to the cortical surface. Mild cortical destruction involving the superior cortex of the femoral neck is again noted. Partially imaged probable pathologic fracturing of the inferior sacrum on image 6 series 2 without displacement. No additional pathologic fracture is identified. Herniorrhaphy changes. Surgical clips within the pelvis. Urinary bladder wall thickening. IMPRESSION: 1. Extensive osteolytic skeletal metastasis redemonstrated, which appear overall stable to slightly progressed from the 07/07/2023 exam. Lesion with cortical destruction within the femoral neck is redemonstrated without acute pathologic fracture identified. 2. Mild likely acute or subacute nondisplaced pathologic inferior sacral fracture. ACT 112: Negative or not required by law. The above report was generated using voice recognition software. It may contain grammatical, syntax or spelling errors. Dictated: 08/17/2023 1:55 PM Transcribed: 08/17/2023 2:07 PM Ren [id number] [email or web address] Electronically signed by: Ruddy Chen M.D. 08/17/2023 4:08 PM Brain MRI 08/18/23 10:51 MR brain wo/w con CLINICAL HISTORY: assess for metastatic disease TECHNIQUE: Multiplanar and multisequence MR images of the brain were obtained prior to and following administration of gadolinium contrast. Comparison: Comparison is made to MRI brain 01/18/2018 and PET/CT 08/27/2019 FINDINGS: No abnormal restricted diffusion is identified. The white matter is unremarkable. The ventricular system is normal in appearance. There is no mass effect or midline shift. There is no evidence of acute intraparenchymal h emorrhage. No extra axial fluid collections are seen. The corpus callosum, pituitary gland, and cerebellar tonsils appear grossly unremarkable. Enhancing calvarial lesions are seen. Left greater than right ethmoid and maxillary sinus thickening noted. IMPRESSION: No intracranial metastases. There are multiple enhancing calvarial lesions compatible with bony metastases. ACT 112: Negative or not required by law. Electronically signed by: Mariano Guerrier M.D. 08/18/2023 4:18 PM Bone Scan Nuclear Medicine 08/19/23 07:30 NM bone scan whole body HISTORY: 48 years-old Female falls, metastatic cancer COMPARISON: Chest CT 08/03/2023, CT abdomen and pelvis 07/07/2023, bone scan 04/08/2022, brain MRI 08/18/2023. TECHNIQUE: Anterior and posterior whole body planar scintigraphic bone scan images were obtained following the intravenous administration of 26.5 mCi technetium 99 MDP administered through the patient's [id number]-x-[id number] catheter. Images were obtained three hours post injection. FINDINGS: Extensive multifocal pathologic tracer uptake is redemonstrated, compatible with the patient's history of metastatic breast cancer. Lesions are seen throughout the axial and appendicular skeletal system with overall progression compared to the bone scan from 04/08/2022. Lesions projected over the head, compatible with calvarial lesions. Decreased tracer uptake within the lower thoracic spine may be on a posttreatment related basis. Physiologic tracer activity within the collecting systems, urinary bladder and soft tissues. Uptake within the sternum is likely related to combination of the skeletal metastasis with pathologic fracturing. IMPRESSION: Extensive skeletal metastasis redemonstrated, progressed compared to the prior bone scan dated 04/08/2022. ACT 112: Negative or not required by law. The above report was generated using voice recognition software. It may contain grammatical, syntax or spelling errors. Dictated: 08/19/2023 11:06 AM Transcribed: 08/19/2023 11:48 AM Ren [id number] [email or web address] Electronically signed by: Ruddy Chen M.D. 08/19/2023 2:45 PM PG Care Time/CCT Total # of Minutes Spent Total Time Spent with Patient: Total time spent is greater than 50% in coordination of care (as documented) at patient's floor/unit and/or counseling patient: I spent 95 minutes overall addressing this case: 15 min in medical data review/discussion with referring provi mark(s) and/or preparation for the visit 10 min in direct interaction with the patient/exam 45 min in Advance Care Planning/Goals of Care discussions as detailed above in note (must be >16min) 10 min in subsequent review and synthesis of assessment and plan 15 min communicating with other providers regarding the patient's case: Advanced Care Planning 43495 Advanced Care Planning 30 Min 43052 Advanced Care Planning Additional 30 Min [place] [address] SUB INP/OBS CARE 3/50MIN (25 - SIGNIFICANT, SEPARATELY IDENTIFIABLE ) Patient Type Established Medical Decision Making High Complexity Diagnoses Cancer related pain G89.3 Therapeutic opioid-induced constipation (OIC) K59.03; T40.2X5A Intractable nausea and vomiting R11.2 Severe episode of recurrent major depressive disorder, without psychotic features F33.2 Depression Type: major depressive disorder Major depression recurrence: recurrent Active/Remission status: currently active Major depression episode severity: severe Psychotic features: without psychotic features Advanced care planning/counseling discussion Z71.89 Palliative care by specialist Z51.5 Carcinoma of breast metastatic to bone, unspecified laterality C50.919; C79.51 Laterality: unspecified laterality Additional Codes Advanced Care Planning - 50291 Advanced Care Planning 30 Min: [id number] Advanced Care Planning 30 Min ([id number]) Advanced Care Planning - [id number] Advanced Care Planning Additional 30 Min: 93201 Advanced Care Planning Additional 30 Min ([id number]) (4) Depression Depression Type: major depressive disorder Major depression recurrence: recurrent Active/Remission status: currently active Major depression episode severity: severe Psychotic features: without psychotic features Qualified Code(s): F33.2 - Major depressive disorder, recurrent severe without psychotic features (7) Breast cancer metastasized to bone Laterality: unspecified laterality Qualified Code(s): C50.919 - Malignant neoplasm of unspecified site of unspecified female breast; C79.51 - Secondary malignant neoplasm of bone
--- NOTE | 2023-08-27 13:45 | Discharge Summary ---
Discharge Summary Date of Service August 27, 2023 Principal Dx & Hospital Course #1 = Principal Diagnosis (1) Weakness generalized: Plan Ms. Vega is a 48-year-old female with past medical history significant for metastatic breast cancer, diabetes, hypothyroidism, history of hypercalcemia, depression with anxiety, peripheral neuropathy, history of small bowel obstruction admitted for progressive weakness and mechanical fall. CT revealed acute/subacute sacral fracture Bone scan revealed extensive bone metastasis PT recommends inpatient physical therapy. Patient eager to regain strength lost from multiple repeated hospitalizations, refractory chemo related nausea/vomiting, and recurrent electrolyte imbalances, now with nondisplaced fracture. Plan for referral to other rehab facilities, patient reports she is not safe to go home, plan to pursue snf with rehab. Patient remains medically stable at this time. SNF denied. Peer to peer completed and denied on 08/25, advised pt can appeal. Pt declining appeal per CM, wants to go home. Looking into ramp. Pt requesting to go home. Discharged home with services. Per pt, family had ramp put in by son in law. Per previous provider with addendum, she was previously treated for the following: Progressive weakness Fall, mechanical Sacral Fracture CT hip: Mild likely acute or subacute nondisplaced pathologic inferior sacral fracture. PT/OT MRI negative Bone scan consistent with metastatic disease Plan originally for SNF with Rehab SNF denied by pt's insurance. Peer to peer completed and denied on 08/25, advised pt can appeal. Pt declining appeal per CM, wants to go home. Looking into ramp. Pt requesting to go home. Discharged home with home health services. Per pt, family had ramp put in by son in law. PCP followup Breast cancer metastasized to bone: Patient presenting by referral of Oncology for evaluation of generalized weakness. Patient with history of metastatic breast cancer, currently on chemotherapy, last treatment 2 wks ago per pt. pt follows with palliative and oncology. Ongoing chemotherapy Continue pain medications as needed -Palliative care on consult, reviewed recommendations Continue PT OT: denied acute rehab and snf Antiemetics as needed Case management to help with discharge planning -SNF denied by pt's insurance. Peer to peer completed and denied on 08/25, advised pt can appeal. Pt declining appeal per CM, wants to go home. Looking into ramp. Pt requesting to go home. Discharged home with home health services. Per pt, zach jeter had ramp put in by son in law. Will need follow-up with oncology on discharge Fall precautions Antiemetics as needed Constipation Bisacodyl prn, declined any further agents at this time encouraged ambulation and hydration Anemia of chronic disease follow H and H. denies cp, palpitations. c/w home folic acid. stable Type II diabetes mellitus: SSI while in here Resume home regimen on discharge Obesity BMI 35.6 Notes For Next Care Provider Please ensure followup with specialists Pt discharged home with home health services after insurance denied SNF/rehab. Medication Changes From Visit None Admission HPI Per Admitting Provider 48-year-old female with PMH of metastatic breast cancer on chemotherapy (last dose 2 weeks ago per pt), DM type II on insulin, presented to the ED for evaluation of generalized weakness. She reports feeling tired, weak since the time of discharge. She lived w/ her neice for 2 days before she went to her home Wednesday w/ two people on her each side. As she was walking up the stairs, her legs gave up and she fell on her buttocks. Those 2 people were able to lower her down during fall to some extent. She reports right hip pain, painful and decreased rom at right hip. will get ct hip. She denies fever, chills, cough, sore throat, chest pain, palpitations, abdominal pain. She does have chronic nausea and vomiting. She reports moving bowels ok, denies pain and burning while passing urine. Medications reviewed w/ patient in detail. Full code. Plan of care discussed w/ pt in detail. she voiced understanding and was agreeable to plan of care. Admission Exam Per Admitting Provider GENERAL: Alert and oriented x3. NAD, on RA. Appears ill/weak/frail. Obese class I. HEENT: No pallor, no icterus. Pupils equal, round and reactive to light. Oral mucosa moist. NECK: No JVD, no neck masses. HEART: S1 and S2 heard. Regular rate and rhythm. No murmur, no gallop. RESPIRATORY SYSTEM: Normal AP diameter. No accessory muscle use. No wheezing, no crackles. ABDOMEN: Soft, bowel sounds present, nontender, no distention. CENTRAL NERVOUS SYSTEM: No facial droop. Speech is clear. Obeys simple commands. Moves extremities. EXTREMITIES: No edema, no erythema seen. Discharge Exam General: Alert, oriented. No acute distress Psych: Appropriate mood and affect Neuro: No gross deficits in bed HEENT: NC/AT CV: RRR Resp: Breath sounds clear bilaterally, no increased effort of breathing. Abdomen: Soft, nontender Extremities: No edema in lower extremities bilaterally. Updated Medication List Medication Instructions Recorded Confirmed Type insulin aspart U-100 100 unit/mL 0 sliding scale dose subcut AC 06/25/23 08/17/23 History (3 mL) subcutaneous pen (Novolog FlexPen U-100 Insulin aspart) ondansetron 8 mg disintegrating 8 mg translingual BID PRN Nausea 06/25/23 08/17/23 History tablet And Vomiting olanzapine 5 mg tablet (Zyprexa) 5 mg PO BID #60 tabs 07/12/23 08/17/23 Rx insulin glargine 100 unit/mL (3 25 unit (0.25 mL) subcut BID #0 mL 07/21/23 08/17/23 Rx mL) subcutaneous pen (Lantus Solostar U-100 Insulin) hydromorphone 4 mg tablet 4 mg PO Q4H PRN severe 07/22/23 08/17/23 Rx (Dilaudid) breakthrough cancer pain 1 month #180 tabs oxycodone 20 mg tablet 20 mg PO Q4 PRN severe cancer pain 08/02/23 08/17/23 History fentanyl 75 mcg/hr transdermal 1 patch transdermal Q72H #3 ea 08/12/23 08/17/23 Rx patch folic acid 1 mg tablet 1 mg PO QAM #30 tabs 08/12/23 08/17/23 Rx sennosides 8.6 mg-docusate sodium 1 tab PO BID PRN Constipation #30 08/12/23 08/17/23 Rx 50 mg tablet (Senokot-S) tabs Hospital Stay Data Consultations 08/17/23 10:30 ED Decision to Admit Stat 08/18/23 10:48 Consult Palliative Care Routine Diagnostic Imagining Performed 08/17/23 12:05 CT hip RT wo con Routine 08/18/23 10:51 MRI Brain [MR brain wo/w con] Routine Hip/Pelvis X-Ray 08/17/23 09:51 XR hip RT 2V w pelvis CLINICAL HISTORY: fall hip pain TECHNIQUE: 2 views of the right hip and single frontal view of the pelvis were obtained. Comparison: Comparison is made to CT abdomen pelvis 07/07/2023 FINDINGS: There is no evidence of an acute fracture. Joint spaces are well-preserved. No soft tissue abnormality is seen. Altered architecture of the trabeculae compatible with diffuse osseous metastatic disease. IMPRESSION: No evidence of acute osseous injury. ACT 112: Negative or not required by law. Electronically signed by: Mariano Guerrier M.D. 08/17/2023 10:[address] 08/17/23 12:05 CT hip RT wo con HISTORY: 48 years-old Female painful/decreased right hip rom, fall Acute pain of the right hip with limited range of motion. History of metastatic breast c ancer. COMPARISON: Radiographs 08/17/2023, CTA abdomen and pelvis 07/07/2023. TECHNIQUE: Multiple axial CT images of the right hip were obtained without IV contrast. A dose lowering technique was used consistent with the principals of VANDANARA. FINDINGS: Multifocal skeletal metastasis is redemonstrated, which are predominantly osteolytic. Index 2 cm right iliac lesion on image 45 is previously measured at 1.8 cm. Right acetabular 2.4 cm lesion on image 180 previously measured 2.3 cm. A 2.5 cm femoral neck destructive lesion is similar in size, however, demonstrates progressive cortical destruction. There is overall no significant change from prior. Several of the lesions are again noted extending to the cortical surface. Mild cortical destruction involving the superior cortex of the femoral neck is again noted. Partially imaged probable pathologic fracturing of the inferior sacrum on image 6 series 2 without displacement. No additional pathologic fracture is identified. Herniorrhaphy changes. Surgical clips within the pelvis. Urinary bladder wall thickening. IMPRESSION: 1. Extensive osteolytic skeletal metastasis redemonstrated, which appear overall stable to slightly progressed from the 07/07/2023 exam. Lesion with cortical destruction within the femoral neck is redemonstrated without acute pathologic fracture identified. 2. Mild likely acute or subacute nondisplaced pathologic inferior sacral fracture. ACT 112: Negative or not required by law. The above report was generated using voice recognition software. It may contain grammatical, syntax or spelling errors. Dictated: 08/17/2023 1:55 PM Transcribed: 08/17/2023 2:07 PM Ren [id number] [email or web address] Electronically signed by: Ruddy Chen M.D. 08/17/2023 4:08 PM Brain MRI 08/18/23 10:51 MR brain wo/w con CLINICAL HISTORY: assess for metastatic disease TECHNIQUE: Multiplanar and multisequence MR images of the brain were obtained prior to and following administration of gadolinium contrast. Comparison: Comparison is made to MRI brain 01/18/2018 and PET/CT 08/27/2019 FINDINGS: No abnormal restricted diffusion is identified. The white matter is unremarkable. The ventricular system is normal in appearance. There is no mass effect or midline shift. There is no evidence of acute intraparenchymal hemorrhage. No extra axial fluid collections are seen. The corpus callosum, pituitary gland, and cerebellar tonsils appear grossly unremarkable. Enhancing calvarial lesions are seen. Left greater than right ethmoid and maxillary sinus thickening noted. IMPRESSION: No intracranial metastases. There are multiple enhancing calvarial lesions compatible with bony metastases. ACT 112: Negative or not required by law. Electronically signed by: Mariano Guerrier M.D. 08/18/2023 4:18 PM Bone Scan Nuclear Medicine 08/19/23 07:30 NM bone scan whole body HISTORY: 48 years-old Female falls, metastatic cancer COMPARISON: Chest CT 08/03/2023, CT abdomen and pelvis 07/07/2023, bone scan 04/08/2022, brain MRI 08/18/2023. TECHNIQUE: Anterior and posterior whole body planar scintigraphic bone scan images were obtained following the intravenous administration of 26.5 mCi technetium 99 MDP administered through the patient's Uvxpil-y-Oots catheter. Images were obtained three hours post injection. FINDINGS: Extensive multifocal pathologic tracer uptake is redemonstrated, compatible with the patient's history of metastatic breast cancer. Lesions are seen throughout the axial and appendicular skeletal system with overall progression compared to the bone scan from 04/08/2022. Lesions projected over the head, compatible with calvarial lesions. Decreased tracer uptake within the lower thoracic spine may be on a posttreatment related basis. Physiologic tracer activity within the collecting systems, urinary bladder and soft tissues. Uptake within the sternum is likely related to combination of the skeletal metastasis with pathologic fracturing. IMPRESSION: Extensive skeletal metastasis redemonstrated, progressed compared to the prior bone scan dated 04/08/2022. ACT 112: Negative or not required by law. The above report was generated using voice recognition software. It may contain grammatical, syntax or spelling errors. Dictated: 08/19/2023 11:06 AM Transcribed: 08/19/2023 11:48 AM Ren [id number] [email or web address] Electronically signed by: Ruddy Chen M.D. 08/19/2023 2:45 PM Discharge Instructions Given to Patient (Per Discharging Provider) Yamilka, You requested to go home with home health services. We are discharging you home. Please keep close follow up with your primary care provider and specialists after discharge. It was a pleasure taking care of you while you were here. Total Time Total Time Spent Total Time Spent (In Minutes): 75
--- NOTE | 2023-08-27 15:03 | Pharmacy Report ---
Pharmacy Glycemic Short Note 2 - Date of Service August 27, 2023 - Glycemic Short BSG Results (Last 24 hours): 08/26/23 08/27/23 08/27/23 20:39 07:17 11:28 POC Glucose 136 H 94 106 H OUTPATIENT ANTIDIABETIC REGIMEN: * Lantus 25 units SC BID * Aspart SS TID with meals * A1c = 7.5% ASSESSMENT: 08/26 * Novolog discontinued yesterday afternoon by hospitalist, patient had been refusing mealtime checks. Did receive 10 units BID of lantus * Fasting 94 mg/dL this morning, adjusted scale for possible 20% reduction. * Ongoing management to be discussed, possible discharge home 08/25: * BSGs have been well controlled past 48 hours, [id number] mg/dL yesterday- patient has not received any novolog, 20 units of basal * Patient has been refusing novolog, slightly reduced basal today, will loosen carb ratio as intake levels diminished/not requiring at this time 08/21: * Received 15 units of basal insulin yesterday. Patient refused bolus insulins and BSG check at HS yesterday. * Spoke with the nurse today. Yamilka is eating very little. Nurse said that if the calculated Novolog dose is under 3 units then patient refuses the dose. * BSGs have been well controlled on just basal insulin even with refusal of HS basal dose. Will continue basal insulin BID on a scale based on BSG. 08/19 * Yamilka received 45 units of insulin yesterday (25 were basal) * Fasting BSG this AM within goal range, continue current regimen * No changes to Novolog at this time, stressors stable 08/18 * Stressors stable * Three BSG's below 100 mg/dL yesterday although no hyperglycemia. Suspect etiology is slightly too much basal insulin for *inpatient* needs. Outpatient home dose is 50 units/day divided BID, but inpatient needs based on prior chart review are more likely ~25-30 units/day. Will reduce Lantus and continue to split BID, similar to outpatient schedule * OK to leave Novolog as-is for now. Regimen is similar to previous admission(s) 08/17 * Yamilka received 50 units of basal insulin yesterday (25 [employer]) * Fasting BSG this AM below goal range, reduce basal insulin by 20-30% based on bedtime BSG * No glycemic stressors noted at this time. * No changes to Novolog at this time. 08/16 * Yamilka is a 48 yo T2DM with h/o metastatic breast cancer currently on chemotherapy referred to the ED for evaluation of generalized weakness. She was recently admitted here 08/01-08/12. Her insulin regimen was very stable during that time. Will start patient on similar insulin doses. PLAN FOR INPATIENT GLYCEMIC CONTROL: * Basal insulin * Lantus 8/10 units SC BID depending on BSG * Bolus insulin * Held
== END 2023-08-27 17:05 | disposition home health service (06) | DRG 948 ==
LOC: ED 09:32 → EDINP 12:31 → SUATTDRO 12:31 → 3E 16:30

== ENCOUNTER 2024-08-20 15:55 | Inpatient (IN) ==
[2024-08-20 17:09] LABS: Basophils # (auto) 0.02 K/uL (0.00-0.20); Basophils % (auto) 0.7 %; Hemoglobin 8.6 g/dl (12.0-16.0); Immature Granulocytes # (auto) 0.03 K/uL (0.01-0.20); Lymphocytes # (auto) 0.78 K/uL (1.20-3.40); Lymphocytes % (auto) 25.8 %; Mean Corpuscular Hemoglobin 28.9 pg (25.0-34.0); Mean Corpuscular Hgb Conc 33.1 g/dL (32.0-36.0); Mean Corpuscular Volume 87.2 fL (80.0-100.0); Monocytes # (auto) 0.39 K/uL (0.11-0.59); Monocytes % (auto) 12.9 %; Neutrophils % (auto) 59.6 %; Platelet Count 151 K/uL (130-400); RDW Coefficient of Variation 17.9 % (11.5-14.5); RDW Standard Deviation 57.1 fL (36.4-46.3); Red Blood Count 2.98 M/uL (4.20-5.40); White Blood Count 3.02 K/ul (4.8-10.8)
--- NOTE | 2024-08-20 17:15 | Emergency Department Note ---
Impression & Plan Metastatic cancer, Breast cancer, Uncontrolled pain, Closed rib fracture ED Provider Note CHIEF COMPLAINT: Generalized bone pain, right shoulder pain HISTORY OF PRESENTING ILLNESS: Patient is a 49-year-old female presents to the emergency department today with complaints of right shoulder pain after a fall on 08/09/2024. She reports being seen here at the time of the injury and had imaging on the left shoulder and left knee which did show a possible fracture of both. She does have a history of stage IV breast cancer with metastasis to multiple sites including lesions covering 90+ percent of her bones. She states she was also referred by her oncologist to come to the emergency department for admission for pain management. She reports taking 30 to 45 mg of oxycodone every 4 hours without any relief of her pain. She does deny any numbness or tingling to the right upper extremity, has normal range of motion. She denies chest pain, sob, breathing difficulties, abdominal pain, headache, fevers/chills, blood in stool or urine, any recent illness, or any recent travel. REVIEW OF SYSTEMS: See HPI for pertinent positives and pertinent negatives. ALLERGIES: No known allergies MEDICATIONS: See below PAST MEDICAL HISTORY: See below PHYSICAL EXAM: VITALS: Vitals are noted on the nurse's note and reviewed by myself. GENERAL: Non toxic, in no acute distress, non-diaphoretic. SKIN: Capillary refill <2 sec. NECK: Supple without nuchal rigidity. HEART: Regular rate and rhythm without murmurs gallops or rubs. LUNGS: Clear to auscultation bilaterally without wheezes, rales or rhonchi. No retractions or accessory muscle use. ABDOMEN: Positive bowel sounds x 4. Normal tympanic percussion. Soft, nontender to palpation. No masses or hepatosplenomegaly. Cruz sign negative. No CVA tenderness. No guarding, rigidity, or rebound tenderness. No focal RLQ or LLQ tenderness. MUSCULOSKELETAL: Normal range of motion to the right shoulder. No gross musculoskeletal defects however does report generalized bone pain. NEURO: Strength is 5/5 to the right upper extremity. Pulses 3/5 of the radial right. Patient was alert and oriented. No focal neurological deficits. DIFFERENTIAL DIAGNOSIS: Metastatic breast cancer, fracture, tendon rupture, rotator cuff injury, among others ED COURSE AND MEDICAL DECISION MAKING: HISTORY FROM INDEPENDENT HISTORIAN: History was provided by the patient and her daughter who is at bedside. MEDICATIONS GIVEN: Patient's Mediport was accessed by nursing staff. The patient was given morphine 6 mg, Zofran 4 mg and had improvement with pain and discomfort. I considered the use of narcotics on this patient due to uncontrolled pain with oxycodone 30 mg every 4 hours. MONITOR: Continuous silver holloware assembler: Order was placed for continuous silver holloware assembler. Patient was placed on the silver holloware assembler and continuous pulse ox. Patient was noted to be in normal sinus rhythm at an initial rate of 98 bpm per my interpretation. INTERPRETATION OF LABS: I interpreted the labs with full lab results as below in the lab section of this note. Laboratory results pertinent to the emergent complaint are discussed in the MDM section below. The patient was advised to follow up with their PCP and/or specialist(s) for further outpatient monitoring and management of any abnormal results. INTERPRETATION OF IMAGING: Imaging studies were interpreted by myself and read by radiology as per the imaging section of this note. The patient was advised to follow up with their PCP and/or specialist(s) for further outpatient management of any non-emergent abnormal findings. EXTERNAL RECORDS REVIEWED: Oncology and palliative care reports CHRONIC MEDICAL/SOCIAL CONDITIONS AFFECTING CARE: No social concerns were identified as barriers to patients care. ESCALATION OF CARE CONSIDERED: I considered admission on this patient due to uncontrolled pain at home. CONSULTATIONS: I had a meaningful discussion about this patient with Dr. Sandoval who agrees with my assessment and the treatment plan. SUMMARY: I examined the patient for complaints of generalized bone pain and right shoulder pain. A physical exam and history were performed. Nursing notes, EMR, and medication list were personally reviewed. CPT see this show white count of 3.02, anemia with a hemoglobin of 8.6 and hematocrit of 26. CMP did show a sodium of 134 the patient did have a liter of normal saline. Shoulder x-ray did show extensive mixed lytic and sclerotic metastatic lesions with acute fractures of the anterior 3rd and 4th ribs. Age-indeterminate fractures posterior 6th through 9th ribs. Particularly prominent lytic lesions noted in the distal clavicle glenoid and humerus. The patient was given 6 mg of morphine and Zofran 4 mg with a short period of improvement in pain and discomfort. Within 20 to 30 minutes the the pain had returned. I did speak with Dr. Oquendo for admission to the hospitalist services for uncontrolled pain related to metastatic breast cancer. The patient was accepted for admission. DIAGNOSIS: Metastatic breast cancer TREATMENT PLAN/DISCHARGE INSTRUCTIONS: Patient admitted to hospitalist services under the care of Dr. Oquendo. Past Med/Surg History Problem List (Updated 08/20/24 @ 19:36 by CONSTANTINO Ortega) Closed rib fracture (Acute) Uncontrolled pain (Acute) Breast cancer (Acute) Metastatic cancer (Acute) Myopathy Leg weakness, bilateral Insomnia Severe pain Palliative care by specialist (Acute) Therapeutic opioid-induced constipation (OIC) (Acute) Breast cancer metastasized to multiple sites (Acute) Anemia (Acute) Parainfluenza Weakness generalized (Chronic) Depression Breast cancer metastasized to bone (Chronic) Cancer related pain (Chronic) Arthritis Obesity Hypothyroidism Type II diabetes mellitus (Acute) Medical History DM type 2 (diabetes mellitus, type 2) Breast cancer metastasized to bone History of COVID-19 12/2020 + 12/2021 > residual taste dysfunction and feeling of need to clear throat Bilateral breast cancer Arthritis Liver spots "Mets from cancer" Depression with anxiety Peripheral neuropathy Heart palpitations R/t anxiety per patient History of small bowel obstruction Hx bowel obstruction Hypothyroidism No current meds Surgical History History of tubal ligation Port-A-Cath in place (04/30/22) Insertion Access Port left subclavian with Fluoroscopy(Left) - Chad Banuelos, History of surgery Left Excisional Debridement of Buttock Wound Nausea and vomiting after administration of anesthetic agent "EXTREME" History of vascular access device PORT INSERTION/REMOVAL History of tooth extraction History of endometrial ablation History of bowel resection D/T BOWEL OBSTRUCTION History of lung surgery Left thoracoscopy with wedge resection left lower lobe Dr. Damico 03/29/2018 History of dilatation and curettage H/O hernia repair Hx of section x3 S/P lumpectomy, left breast LEFT ARM LIMB RESTRICTION Family History Mother , 77yo Diabetes Heart disease Aortic valve replacement Mitral valve calcifications UTI (urinary tract infection) Father , 62yo Diabetes Myocardial infarction Hypertension Stroke Brother Diabetes Myocardial infarction Cardiac stents Pacemaker Hypertension Sister No problems noted. Daughter No problems noted. Son No problems noted. Son No problems noted. Other No family history of adverse response to anesthesia Social History Smoking Status: Never smoker Second Hand Exposure: No; Do You Dip or Chew Tobacco: No; Hx Alcohol Use: No Hx Substance Use: Yes Last Used Substance: Unknown Last Used Substance Other:: used occasionally Substance Use Type Other:: Medical marijuana. 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 How many Children do You have: 3 Other Information That Helps Us Care for You: No Feels Safe at Home: Yes Safety Concerns: Feels Safe At This Time Diet: regular caffeine: No during the past year weight has: remained stable Assistive Devices: Walker and Wheelchair Allergies Allergies Allergy/AdvReac Type Severity Reaction Status Date / Time No Known Allergies Allergy Verified 08/18/24 15:54 Home Meds Home Medications Medication Instructions Recorded Confirmed insulin aspart U-100 100 unit/mL 0 sliding scale dose subcut AC 06/25/23 08/20/24 (3 mL) subcutaneous pen (Novolog FlexPen U-100 Insulin aspart) ondansetron 8 mg disintegrating 8 mg translingual BID PRN Nausea 06/25/23 08/20/24 tablet And Vomiting insulin glargine 100 unit/mL (3 10 unit subcut BID 09/23/23 08/20/24 mL) subcutaneous pen (Lantus Solostar U-100 Insulin) hydromorphone 8 mg tablet 8 mg PO TID PRN very severe bone 08/20/24 08/20/24 (Dilaudid) mets related cancer pain metoclopramide HCl 10 mg tablet 10 mg PO .1-2X A DAY PRN n/v 08/20/24 08/20/24 olanzapine 5 mg tablet (Zyprexa) 5 mg PO BID PRN n/v 08/20/24 08/20/24 oxycodone 30 mg tablet 45 - 60 mg PO Q4H PRN Severe Pain 08/20/24 08/20/24 (Scale Score 7-10) quetiapine 25 mg tablet (Seroquel) 25 mg PO DAILY PRN Other 08/20/24 08/20/24 Previous Rx's Medication Instructions Recorded sennosides 8.6 mg-docusate sodium 1 tab PO BID PRN Constipation #30 08/12/23 50 mg tablet (Senokot-S) tabs fentanyl 75 mcg/hr transdermal 1 patch transdermal Q72H 1 month 01/17/24 patch #10 ea Results & Data (ED) Vital Signs Vital Signs - 24 hr 08/20/24 15:59 08/20/24 17:01 08/20/24 17:16 Temperature 37 C Temperature Source Temporal Artery Scan Pulse Rate 102 H 90 Respiratory Rate 18 Respiratory Effort / Characteristics Non-Labored Spontaneous Respiratory Depth Normal Blood Pressure 105/73 Blood Pressure Mean 83 Pulse Oximetry 100 99 Oxygen Delivery Method Room Air Sepsis Recent Fever Within 48 Hours No Sepsis New/Unexplained Change in Mental Status No Sepsis Action Taken by Nursing No Action Required Laboratory Data 08/20/24 16:57 08/20/24 16:57 Lab Results 08/20/24 Range/Units 16:57 WBC 3.02 L (4.8-10.8) K/ul RBC 2.98 L (4.20-5.40) M/uL Hgb 8.6 L (12.0-16.0) g/dl Hct 26.0 L (37.0-47.0) % MCV 87.2 (80.0-100.0) fL MCH 28.9 (25.0-34.0) pg MCHC 33.1 (32.0-36.0) g/dL RDW Std Deviation 57.1 H (36.4-46.3) fL RDW Coeff of Joshua 17.9 H (11.5-14.5) % Plt Count 151 (130-400) K/uL MPV 9.0 L (9.4-12.4) fL Immature Gran % (Auto) 1.0 % Neut % (Auto) 59.6 % Lymph % (Auto) 25.8 % [place] % (Auto) 12.9 % Eos % (Auto) 0.0 % Baso % (Auto) 0.7 % Neut # (Auto) 1.80 (1.40-6.50) K/uL Lymph # (Auto) 0.78 L (1.20-3.40) K/uL [place] # (Auto) 0.39 (0.11-0.59) K/uL Eos # (Auto) 0.00 (0.00-0.50) K/uL Baso # (Auto) 0.02 (0.00-0.20) K/uL Immature Gran # (Auto) 0.03 (0.01-0.20) K/uL Sodium 134 L (136-145) mmol/L Potassium 3.7 (3.5-5.1) mmol/L Chloride 101 (98-107) mmol/L Carbon Dioxide 25 (21-32) mmol/L Anion Gap 8 (3-11) BUN 21 (6-23) mg/dl Creatinine 0.97 (0.6-1.2) mg/dl Est Cr Clr Drug Dosing Not Reportable eGFR 72.53 BUN/Creatinine Ratio 21.6 H (10-20) Glucose 200 H (70-99(Fasting)) mg/dl Calcium 9.1 (8.6-10.3) mg/dl Total Bilirubin 0.7 (0.2-1.0) mg/dl AST 21 (13-39) U/L ALT 13 (7-52) U/L Alkaline Phosphatase 151 H (34-104) U/L Total Protein 6.4 (6.0-8.3) gm/dl Albumin 3.4 (3.4-5.0) gm/dl Globulin 3.0 (2.5-4.0) gm/dl Albumin/Globulin Ratio 1.1 (0.9-2) Administered Medications Fentanyl (Fentanyl 75 Mcg/Hr Tdsy) 1 patch TD Q72H [facility] Stop: 09/03/24 21:29 Last Admin: 08/20/24 21:49 Dose: 1 patch Documented By: MARISELA Hydromorphone HCl (Hydromorphone Inj 2 Mg/Ml Syr/Vial) 4 mg IV Q2H PRN PRN Reason: Severe Pain (Scale 7, 8, 9,10) Stop: 09/03/24 18:40 Last Admin: 08/21/24 01:25 Dose: 4 mg Documented By: Admin: 08/20/24 21:51 Dose: 4 mg Documented By: MARISELA Insulin Glargine (Lantus Per Unit Charge) 10 units SQ BID [facility] Stop: 09/19/24 21:14 Last Admin: 08/20/24 21:48 Dose: 10 units Documented By: MARISELA Co-signed By: PARMINDER Da Silvacellaneous (Fentanyl Patch Remove & Waste) 1 each N/A Q3D JESSE Stop: 09/19/24 21:28 Last Admin: 08/20/24 21:50 Dose: 1 each Documented By: MARISELA Co-signed By: PARMINDER March (Check Fentanyl Patch Placement) 1 each N/A QS JESSE Stop: 09/20/24 00:00 Last Admin: 08/20/24 23:58 Dose: 1 each Documented By: MARISELA Discontinued Medications Sodium Chloride (Nss) 1,000 mls @ 250 mls/hr IV .Q4H ONE Stop: 08/20/24 21:00 Last Infusion: 08/20/24 22:51 Dose: Infused Documented By: Admin: 08/20/24 17:17 Dose: 250 mls/hr Documented By: DONNY Morphine Sulfate (Morphine Sulfate 10 Mg/Ml Carp/Vial) 6 mg IV NOW STA Stop: 08/20/24 17:02 Last Admin: 08/20/24 17:17 Dose: 6 mg Documented By: DONNY Ondansetron HCl (Ondansetron Inj 2 Mg/Ml 2 Ml Vial) 4 mg IV NOW STA Stop: 08/20/24 17:02 Last Admin: 08/20/24 17:17 Dose: 4 mg Documented By: DONNY Imaging Data Radiologist's Impression: Shoulder X-Ray 08/20/24 16:43 EXAM: Radiographs of the Right Shoulder Complete 2 or More Views INDICATION: Posttraumatic pain. TECHNIQUE: Two or more views of the right shoulder. COMPARISON: No relevant prior studies available. FINDINGS: Bones/joints: There is acute fracture of the anterior 3rd and 4th ribs. Age-indeterminate fractures posterior 6th through 9th ribs. Extensive mixed lytic and sclerotic metastatic lesions noted. Lytic lesions are particularly prominent in the distal clavicle, glenoid and humerus. There is an expansile sclerotic lesion in the posterior second rib. No scapular, clavicular or humeral fracture identified. Soft tissues: No abnormality noted. No radiopaque foreign body noted. IMPRESSION: 1. Extensive mixed lytic and sclerotic metastatic lesions with acute fractures of the anterior 3rd and 4th ribs. Age-indeterminate fractures posterior 6th through 9th ribs. 2. Particularly prominent lytic lesions noted in the distal clavicle, glenoid and humerus. ACT 112: N/A Electronically signed by Malena Andrade 08-20-2024 5:16 PM Discharge Plan Visit Data Chief Complaint: Fall Stated Complaint: FALL ED Provider: Junior Sandoval ED Midlevel Provider: Cally Gauthier Discharge Problem: Metastatic cancer, Breast cancer, Uncontrolled pain, Closed rib fracture Patient Disposition: Admitted As Inpatient Condition: Good Discharge Instructions Interventions: ED Discharge Assessment Last Done: 08/20/24 20:18 Addendum August 21, 2024 02:04 I was consulted by the Advanced Practice Provider and was substantively involved in the patient's visit.This includes aspects of the HPI, MDM, diagnostic interpretations, and disposition/plan. I discussed the case with the MARIO and agree with the findings and plan as documented in MARIO Abrahan's note. Discharge Problem: Metastatic cancer Qualifiers: Area of secondary neoplastic involvement: bone Qualified Code(s): C79.51 - Secondary malignant neoplasm of bone Breast cancer Qualifiers: Breast location: unspecified site of breast Estrogen receptor status: u nspecified Patient sex: female Laterality: bilateral Qualified Code(s): C50.911 - Malignant neoplasm of unspecified site of right female breast Closed rib fracture Qualifiers: Encounter type: initial encounter Rib fracture type: multiple ribs Laterality: right Qualified Code(s): S22.41XA - Multiple fractures of ribs, right side, initial encounter for closed fracture
[2024-08-20] MEDS: ONDANSETRON INJ 2 MG/ML 2 ML VIAL IV STA (17:17)
[2024-08-20] MEDS: MoRPHine SULFATE 10 MG/ML CARP/VIAL IV STA (17:17)
[2024-08-20] MEDS: SODIUM CHLORIDE 0.9% 1,000 ML IV ONE (17:17)
[2024-08-20 17:31] LABS: Alanine Aminotransferase 13 U/L (7-52); Albumin Globulin Ratio 1.1 (0.9-2); Albumin Level 3.4 gm/dl (3.4-5.0); Alkaline Phosphatase 151 U/L (34-104); Anion Gap 8 (3-11); Aspartate Aminotransferase 21 U/L (13-39); BUN Creatinine Ratio 21.6 (10-20); Bilirubin,Total 0.7 mg/dl (0.2-1.0); Blood Urea Nitrogen 21 mg/dl (6-23); Calcium 9.1 mg/dl (8.6-10.3); Carbon Dioxide 25 mmol/L (21-32); Chloride 101 mmol/L (98-107); Glucose 200 mg/dl (70-99(Fasting)); Potassium 3.7 mmol/L (3.5-5.1); Sodium 134 mmol/L (136-145); Total Protein 6.4 gm/dl (6.0-8.3)
[2024-08-20] MEDS ORDERED: HYDROmorphone INJ 2 MG/ML SYR/VIAL IV PRN ×2 (18:33→18:41)
[2024-08-20] MEDS ORDERED: ACETAMINOPHEN 325 MG TAB PO PRN (18:33)
[2024-08-20] MEDS ORDERED: POLYETHYLENE (MIRALAX) 17 GM PACK PO PRN (18:33)
--- NOTE | 2024-08-20 18:38 | History & Physical Report ---
Date of Service August 20, 2024 Assessment & Plan (1) Severe pain: (2) Breast cancer metastasized to bone: Plan: Assessment/plan Metastatic breast cancer Cancer-related pain Patient presents to the hospital with severe cancer-related pain due to bony metastasis. At homefentanyl patch and oxycodone 45 to 60 mg as needed. Continue her home pain regimen; add Dilaudid 4 mg IV every 2 hours as needed for breakthrough pain control; dose of the Dilaudid to be increased depending on pain control. Palliative care consulted for pain management History of type 2 diabetes mellituscontinue on insulin while inpatient DNR/DNI DVT prophylaxis heparin Time spent evaluating patient, direct bedside care, chart review, placing orders, interpretation of diagnostic studies, discussion with consultants, patient, and family members, as well as other required patient management activities is 60 minutes Please note the above document was generated using voice recognition software. It may contain grammatical, syntax or spelling errors. Any formal questions or concerns about the content, text or information contained within the body of this dictation should be directly addressed to the provider for clarification History of Present Illness Chief Complaint: Cancer related pain Primary Care Provider: CONSTANTINO Reid Patient is 49-year-old female with medical history of metastatic breast cancer currently on dose reduced eribulin presents to the hospital due to pain secondary to bony metastatic disease. She reports that she had a fall few days ago while she was on the walker and felt her knee injuring her left knee and shoulder. She reports that she has not been able to get any rest or sleep due to the pain. She is currently on fentanyl patch and as needed oxycodone which has not helped with her pain. Allergies Allergy/AdvReac Type Severity Reaction Status Date / Time No Known Allergies Allergy Verified 08/18/24 15:54 Home Medications Medication Instructions Recorded Confirmed Type insulin aspart U-100 100 unit/mL 0 sliding scale dose subcut AC 06/25/23 08/20/24 History (3 mL) subcutaneous pen (Novolog FlexPen U-100 Insulin aspart) ondansetron 8 mg disintegrating 8 mg translingual BID PRN Nausea 06/25/23 08/20/24 History tablet And Vomiting sennosides 8.6 mg-docusate sodium 1 tab PO BID PRN Constipation #30 08/12/23 08/20/24 Rx 50 mg tablet (Senokot-S) tabs insulin glargine 100 unit/mL (3 10 unit subcut BID 09/23/23 08/20/24 History mL) subcutaneous pen (Lantus Solostar U-100 Insulin) fentanyl 75 mcg/hr transdermal 1 patch transdermal Q72H 1 month 01/17/24 08/20/24 Rx patch #10 ea hydromorphone 8 mg tablet 8 mg PO TID PRN very severe bone 08/20/24 08/20/24 History (Dilaudid) mets related cancer pain metoclopramide HCl 10 mg tablet 10 mg PO .1-2X A DAY PRN n/v 08/20/24 08/20/24 History olanzapine 5 mg tablet (Zyprexa) 5 mg PO BID PRN n/v 08/20/24 08/20/24 History oxycodone 30 mg tablet 45 - 60 mg PO Q4H PRN Severe Pain 08/20/24 08/20/24 History (Scale Score 7-10) quetiapine 25 mg tablet (Seroquel) 25 mg PO DAILY PRN Other 08/20/24 08/20/24 History Past Med/Surg History Problem List Myopathy Leg weakness, bilateral Insomnia Severe pain Palliative care by specialist (Acute) Therapeutic opioid-induced constipation (OIC) (Acute) Breast cancer metastasized to multiple sites (Acute) Anemia (Acute) Parainfluenza Weakness generalized (Chronic) Depression Breast cancer metastasized to bone (Chronic) Cancer related pain (Chronic) Arthritis Obesity Hypothyroidism Type II diabetes mellitus (Acute) Medical History DM type 2 (diabetes mellitus, type 2) Breast cancer metastasized to bone History of COVID-19 12/2020 + 12/2021 > residual taste dysfunction and feeling of need to clear throat Bilateral breast cancer Arthritis Liver spots "Mets from cancer" Depression with anxiety Peripheral neuropathy Heart palpitations R/t anxiety per patient History of small bowel obstruction Hx bowel obstruction Hypothyroidism No current meds Surgical History History of tubal ligation Port-A-Cath in place (04/30/22) Insertion Access Port left subclavian with Fluoroscopy(Left) - Chad Ybarra rt, DO History of surgery Left Excisional Debridement of Buttock Wound Nausea and vomiting after administration of anesthetic agent "EXTREME" History of vascular access device PORT INSERTION/REMOVAL History of tooth extraction History of endometrial ablation History of bowel resection D/T BOWEL OBSTRUCTION History of lung surgery Left thoracoscopy with wedge resection left lower lobe Dr. Damico 03/29/2018 History of dilatation and curettage H/O hernia repair Hx of section x3 S/P lumpectomy, left breast LEFT ARM LIMB RESTRICTION Family History Mother , 77yo Diabetes Heart disease Aortic valve replacement Mitral valve calcifications UTI (urinary tract infection) Father , 62yo Diabetes Myocardial infarction Hypertension Stroke Brother Diabetes Myocardial infarction Cardiac stents Pacemaker Hypertension Sister No problems noted. Daughter No problems noted. Son No problems noted. Son No problems noted. 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 Respiratory: Bilateral vesicular breath sound. Cardiovascular: RRR, no murmur, no edema Vessels: no JVD or carotid bruit Chest: normal inspection of chest Abdomen: normal bowel sounds, soft, nontender, no hepatosplenomegaly Musculoskeletal: No knee tenderness; ROM intact in all extremities. Skin: no rashes, warm and dry normal turgor Neurologic: PERRL, EOMI, accommodation nl, no face palsy, no dysarthria CN's II- XI intact bilaterally and moves all extremities Results & Data Results & Data Vital Signs (Past 12 Hours) Vital Signs Temp Pulse Resp BP Pulse Ox O2 Del Method 08/20/24 17:16 90 08/20/24 17:01 99 08/20/24 15:59 37 C 102 H 18 105/73 100 Room Air (2) Breast cancer metastasized to bone Laterality: unspecified laterality Qualified Code(s): C50.919 - Malignant neoplasm of unspecified site of unspecified female breast; C79.51 - Secondary malignant neoplasm of bone
[2024-08-20] MEDS ORDERED: GLUCOSE 40% GEL 15 GM TUBE PO PRN (20:46)
[2024-08-20] MEDS ORDERED: METOCLOPRAMIDE HCL 10 MG TABLET PO PRN (20:46)
[2024-08-20] MEDS ORDERED: QUEtiapine FUMARATE 25 MG TABLET PO PRN (20:46)
[2024-08-20] MEDS ORDERED: GLUCAGON FOR INJ 1 MG VIAL SQ PRN (20:46)
[2024-08-20] MEDS ORDERED: OLANZapine 5 MG TABLET PO PRN ×2 (20:46→20:55)
[2024-08-20] MEDS ORDERED: GLUCOSE 10 TAB/TUBE PO PRN (20:46)
[2024-08-20] MEDS ORDERED: DOCUSATE SODIUM/SENNA 50/8.6MG TAB PO PRN (20:46)
[2024-08-20] MEDS ORDERED: CARBOHYDRATES FOR HYPOGLYCEMIA PO PRN (20:46)
[2024-08-20] MEDS ORDERED: DEXTROSE 50% 50 ML SYRINGE IV PRN (20:46)
[2024-08-20] MEDS ORDERED: oxyCODONE HCL IR 30 MG TAB (IMMEDIATE RELEASE) PO PRN (20:51)
[2024-08-20] MEDS: LANTUS PER UNIT CHARGE SQ SCH (21:48)
[2024-08-20] MEDS: fentaNYL 75 MCG/HR TDSY TD SCH (21:49)
[2024-08-20] MEDS: HYDROmorphone INJ 2 MG/ML SYR/VIAL IV PRN (21:51)
[2024-08-20] MEDS: CHECK fentaNYL PATCH PLACEMENT SCH (23:58)
[2024-08-21] MEDS: ONDANSETRON INJ 2 MG/ML 2 ML VIAL IV PRN (05:37)
[2024-08-21] MEDS: PROMETHAZINE 12.5 MG/50.5 ML BAG IV PRN (08:31)
[2024-08-21] MEDS: HEPARIN 100 UNIT/ML 5ML FLUSH FLUSH PRN (08:51)
--- NOTE | 2024-08-21 12:38 | Hospitalist Progress Note ---
Date of Service August 21, 2024 Assessment & Plan (1) Severe pain: (2) Breast cancer metastasized to bone: Plan: Assessment/plan Metastatic breast cancer Cancer-related pain Patient presents to the hospital with severe cancer-related pain due to bony metastasis. At homefentanyl patch and oxycodone 45 to 60 mg as needed. Continue her home pain regimen; Dilaudid frequency decreased to q3h. Palliative care consulted for pain management; appreicate recommendation History of type 2 diabetes mellituscontinue on insulin while inpatient DNR/DNI DVT prophylaxis heparin Please note the above document was generated using voice recognition software. It may contain grammatical, syntax or spelling errors. Any formal questions or concerns about the content, text or information contained within the body of this dictation should be directly addressed to the provider for clarification Admission and Anticipated Discharge Date Admission Date: August 20, 2024 Subjective Patient seen and examined at bedside. Her pain is well-controlled; she reports that she is comfortable and is not in any distress. No significant events overnight Review of Systems Review of Systems: All systems reviewed & are unremarkable except as noted in Subjective Physical Exam Physical Exam: Constitutional: Alert oriented x 3; not in distress. Respiratory: Bilateral vesicular breath sound. Cardiovascular: RRR, no murmur, no edema Vessels: no JVD or carotid bruit Chest: normal inspection of chest Abdomen: normal bowel sounds, soft, nontender, no hepatosplenomegaly Musculoskeletal: No knee tenderness; ROM intact in all extremities. Skin: no rashes, warm and dry normal turgor Neurologic: PERRL, EOMI, accommodation nl, no face palsy, no dysarthria CN's II- XI intact bilaterally and moves all extremities Results & Data Results & Data Vital Signs (Past 12 Hours) Vital Signs Temp Pulse Resp BP Pulse Ox O2 Del Method 08/21/24 07:46 36.5 C 77 18 128/78 99 Room Air (2) Breast cancer metastasized to bone Laterality: unspecified laterality Qualified Code(s): C50.919 - Malignant neoplasm of unspecified site of unspecified female breast; C79.51 - Secondary malignant neoplasm of bone
[2024-08-21] MEDS: HYDROmorphone INJ 2 MG/ML SYR/VIAL IV PRN (16:27)
--- NOTE | 2024-08-21 16:42 | Palliative Care Consultation ---
Date of Consultation August 21, 2024 Assessment & Plan (1) Palliative care by specialist: Met with pt at bedside,no visitors present Introduced Palliative Medicine and explained our role in advanced care planning, symptom management and navigation through the progression of life limiting d isease. Patient and/or family were receptive to palliative services for goals of care discussions. Reviewed we are different from hospice, a home health nurse visiting service. Patient currently exhibits decisional capacity based on the ability to convey understanding of personal PMHx, current medical condition, treatment options nor the risks / benefits/ potential outcomes of accepting/declining those options, and ability to make decisions based on such knowledge. Hospital does not have written documentation of patient wishes concerning her chosen proxy for medical decisions. Per PA [id number], in absence of written documentation of patient wishes, pt's proxy for medical decisions would be her spouse. Pt does not currently require a proxy for medical decisions. (2) Uncontrolled pain: Pt in acute pain crisis on admission, states pain is currently well managed with combination of duragesic and dilaudid. She states that the 45mg of oxycodone PRN "was not really helping at all" for her severe [facility] so she came to ED. She shared that he pain is under control currently, but she has not slept and is exhausted. She is currently experiencing nausea with dilaudid dosing and has history of poor tolerance of both dilaudid and morphine due to N/V. Will continue current analgesic regime, encouraged pt to report pain as it approached moderate level and request PRN medications accordingly. Discussed using her 24hr utilization to dose find and plan an increase in Duragesic that reflects her current opiate requirement for more consistent pain control. Pt in agreement. Continue: Oxycodone 45 mg PO Q4H PRN Hydromorphone 4 mg IV Q3H PRN Fentanyl (Fentanyl 75 Mcg/Hr Tdsy) 1 patch TD Q72H [facility] (3) Therapeutic opioid-induced constipation (OIC): not currently an issue. Continue miralax/senna as preventative (4) Refractory nausea and vomiting: Pt reports nausea without emesis after dialudid, states well managed by taking antiemetic prior to dilaudid. continue Phenergan 12.5 mg IV Q6H PRN continue Zofran 4mg IVP q6h PRN may increase to 8mg and utilize zofran/phenergan on alternating q6h schedule, so one antiemetic is given every three hours while requiring escalating opiates. Plan as above History of Present Illness Reason for Consultation: pain / symptom management Requesting Physician: Tree Oquendo MD Attending Physician: Tree Oquendo MD History of Present Illness Yamilka is 49-year-old female with medical history of metastatic breast cancer currently on dose reduced eribulin presents to the hospital due to pain secondary to bony metastatic disease. She reports that she had a fall few days ago while she was on the walker and felt her knee injuring her left knee and shoulder. She has been admitted for management of intractable pain. Allergies Allergy/AdvReac Type Severity Reaction Status Date / Time No Known Allergies Allergy Verified 08/18/24 15:54 Home Medications Medication Instructions Recorded Confirmed Type insulin aspart U-100 100 unit/mL 0 sliding scale dose subcut AC 06/25/23 08/20/24 History (3 mL) subcutaneous pen (Novolog FlexPen U-100 Insulin aspart) ondansetron 8 mg disintegrating 8 mg translingual BID PRN Nausea 06/25/23 08/20/24 History tablet And Vomiting sennosides 8.6 mg-docusate sodium 1 tab PO BID PRN Constipation #30 08/12/23 08/20/24 Rx 50 mg tablet (Senokot-S) tabs insulin glargine 100 unit/mL (3 10 unit subcut BID 09/23/23 08/20/24 History mL) subcutaneous pen (Lantus Solostar U-100 Insulin) fentanyl 75 mcg/hr transdermal 1 patch transdermal Q72H 1 month 01/17/24 08/20/24 Rx patch #10 ea hydromorphone 8 mg tablet 8 mg PO TID PRN very severe bone 08/20/24 08/20/24 History (Dilaudid) mets related cancer pain metoclopramide HCl 10 mg tablet 10 mg PO .1-2X A DAY PRN n/v 08/20/24 08/20/24 History olanzapine 5 mg tablet (Zyprexa) 5 mg PO BID PRN n/v 08/20/24 08/20/24 History oxycodone 30 mg tablet 45 - 60 mg PO Q4H PRN Severe Pain 08/20/24 08/20/24 History (Scale Score 7-10) quetiapine 25 mg tablet (Seroquel) 25 mg PO DAILY PRN Other 08/20/24 08/20/24 History Patient History Medical History DM type 2 (diabetes mellitus, type 2) Breast cancer metastasized to bone History of COVID-19 12/2020 + 12/2021 > residual taste dysfunction and feeling of need to clear throat Bilateral breast cancer Arthritis Liver spots "Mets from cancer" Depression with anxiety Peripheral neuropathy Heart palpitations R/t anxiety per patient History of small bowel obstruction Hx bowel obstruction Hypothyroidism No current meds Surgical History History of tubal ligation Port-A-Cath in place (04/30/22) Insertion Access Port left subclavian with Fluoroscopy(Left) - Chad Banuelos, History of surgery Left Excisional Debridement of Buttock Wound Nausea and vomiting after administration of anesthetic agent "EXTREME" History of vascular access device PORT INSERTION/REMOVAL History of tooth extraction History of endometrial ablation History of bowel resection D/T BOWEL OBSTRUCTION History of lung surgery Left thoracoscopy with wedge resection left lower lobe Dr. Damico 03/29/2018 History of dilatation and curettage H/O hernia repair Hx of section x3 S/P lumpectomy, left breast LEFT ARM LIMB RESTRICTION Family History Mother , 77yo Diabetes Heart disease Aortic valve replacement Mitral valve calcifications UTI (urinary tract infection) Father , 62yo Diabetes Myocardial infarction Hypertension Stroke Brother Diabetes Myocardial infarction Cardiac stents Pacemaker Hypertension Sister No problems noted. Daughter No problems noted. Son No problems noted. Son No problems noted. Other No family history of adverse response to anesthesia Social History Smoking Status: Never smoker Second Hand Exposure: No; Do You Dip or Chew Tobacco: No; Hx Alcohol Use: No Hx Substance Use: Yes Last Used Substance: Unknown Last Used Substance Other:: used occasionally Substance Use Type Other:: Medical marijuana. 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 How many Children do You have: 3 Other Information That Helps Us Care for You: No Feels Safe at Home: Yes Safety Concerns: Feels Safe At This Time Diet: regular caffeine: No during the past year weight has: remained stable Assistive Devices: Walker and Wheelchair Review of Systems Review of Systems: All systems reviewed & are unremarkable except as noted in HPI & below Physical Exam Constitutional: + ill appearing, + thin and + in distres s bitemp wasting, chemo related alopecia Eyes: PERRL, conjunctivae normal, anicteric sclerae ENMT: external ear and nose normal, oropharynx normal Neck: trachea midline, no thyromegaly Cardiovascular: RRR, no murmur, no edema Gastrointestinal (Abdomen): normal bowel sounds, soft, nontender, no hepatosplenomegaly Musculoskeletal: Anterior to lateral left ribs/chest and back +TTP +generalized weakness, LLE >> RLE paraspinal tenderness, R hip tenderness Skin: + turgor decreased and + pallor Neurologic: PERRL, EOMI, accommodation nl, no face palsy, no dysarthria Psychiatric: Orientation: oriented x 3 Affect: + flat affect Results & Data Vital Signs (Past 12 Hours) Vital Signs Temp Pulse Resp BP Pulse Ox O2 Del Method 08/21/24 15:18 36.5 C 72 16 97/66 L 98 Room Air 08/21/24 07:46 36.5 C 77 18 128/78 99 Room Air Laboratory Results Abnormal lab results 08/20/24 08/20/24 08/21/24 Range/Units 16:57 22:03 07:39 WBC 3.02 L (4.8-10.8) K/ul RBC 2.98 L (4.20-5.40) M/uL Hgb 8.6 L (12.0-16.0) g/dl Hct 26.0 L (37.0-47.0) % RDW Std Deviation 57.1 H (36.4-46.3) fL RDW Coeff of Joshua 17.9 H (11.5-14.5) % MPV 9.0 L (9.4-12.4) fL Lymph # (Auto) 0.78 L (1.20-3.40) K/uL Sodium 134 L (136-145) mmol/L BUN/Creatinine Ratio 21.6 H (10-20) Glucose 200 H (70-99(Fasting)) mg/dl POC Glucose 192 H 188 H (70-99) mg/dl Alkaline Phosphatase 151 H (34-104) U/L 08/21/24 Range/Units 11:22 WBC (4.8-10.8) K/ul RBC (4.20-5.40) M/uL Hgb (12.0-16.0) g/dl Hct (37.0-47.0) % RDW Std Deviation (36.4-46.3) fL RDW Coeff of Joshua (11.5-14.5) % MPV (9.4-12.4) fL Lymph # (Auto) (1.20-3.40) K/uL Sodium (136-145) mmol/L BUN/Creatinine Ratio (10-20) Glucose (70-99(Fasting)) mg/dl POC Glucose 191 H (70-99) mg/dl Alkaline Phosphatase (34-104) U/L Diagnostic Findings Shoulder X-Ray 08/20/24 16:43 EXAM: Radiographs of the Right Shoulder Complete 2 or More Views INDICATION: Posttraumatic pain. TECHNIQUE: Two or more views of the right shoulder. COMPARISON: No relevant prior studies available. FINDINGS: Bones/joints: There is acute fracture of the anterior 3rd and 4th ribs. Age-indeterminate fractures posterior 6th through 9th ribs. Extensive mixed lytic and sclerotic metastatic lesions noted. Lytic lesions are particularly prominent in the distal clavicle, glenoid and humerus. There is an expansile sclerotic lesion in the posterior second rib. No scapular, clavicular or humeral fracture identified. Soft tissues: No abnormality noted. No radiopaque foreign body noted. IMPRESSION: 1. Extensive mixed lytic and sclerotic metastatic lesions with acute fractures of the anterior 3rd and 4th ribs. Age-indeterminate fractures posterior 6th through 9th ribs. 2. Particularly prominent lytic lesions noted in the distal clavicle, glenoid and humerus. ACT 112: N/A Electronically signed by Malena Andrade 08-20-2024 5:16 PM Medications Administered Current Inpatient Medications Acetaminophen (Acetaminophen 325 Mg Tab) 650 mg PO Q4H PRN PRN Reason: pain/fever Stop: 09/19/24 18:32 Dextrose (Dextrose 50% 50 Ml Syringe) 25 - 50 ml IV UD PRN; Protocol PRN Reason: Hypoglycemia Protocol Stop: 09/19/24 20:45 Fentanyl (Fentanyl 75 Mcg/Hr Tdsy) 1 patch TD Q72H [facility] Stop: 09/03/24 21:29 Last Admin: 08/20/24 21:49 Dose: 1 patch Glucagon (Glucagon For Inj 1 Mg Vial) 1 mg SQ UD PRN; Protocol PRN Reason: Hypoglycemia Protocol Stop: 09/19/24 20:45 Glucose (Glucose 40% Gel 15 Gm Tube) 15 - 30 gm PO UD PRN; Protocol PRN Reason: Hypoglycemia Protocol Stop: 09/19/24 20:45 Glucose (Glucose 10 Tab/Tube) 4 - 8 tab PO UD PRN; Protocol PRN Reason: Hypoglycemia Protocol Stop: 09/19/24 20:45 Heparin Sodium (Porcine) (Heparin 100 Unit/Ml 5ml Flush) 5 ml FLUSH PRN PRN PRN Reason: Flush Stop: 09/20/24 08:09 Last Admin: 08/21/24 12:06 Dose: 5 ml Hydromorphone HCl (Hydromorphone Inj 2 Mg/Ml Syr/Vial) 4 mg IV Q3H PRN PRN Reason: Severe Pain (Scale 7, 8, 9,10) Stop: 09/03/24 18:48 Promethazine HCl (Phenergan) 12.5 mg in 50.5 mls @ 202 mls/hr IV Q6H PRN PRN Reason: Nausea And Vomiting Stop: 09/20/24 07:56 Last Infusion: 08/21/24 10:26 Dose: Infused Insulin Glargine (Lantus Per Unit Charge) 10 units SQ BID JESSE Stop: 09/19/24 21:14 Last Admin: 08/21/24 08:36 Dose: 10 units Metoclopramide HCl (Metoclopramide Hcl 10 Mg Tablet) 10 mg PO BID PRN PRN Reason: n/v Stop: 09/19/24 20:45 Miscellaneous (Fentanyl Patch Remove & Waste) 1 each N/A Q3D [facility] Stop: 09/19/24 21:28 Last Admin: 08/20/24 21:50 Dose: 1 each Miscellaneous (Check Fentanyl Patch Placement) 1 each N/A QS [facility] Stop: 09/20/24 00:00 Last Admin: 08/21/24 08:06 Dose: 1 each Miscellaneous (Carbohydrates For Hypoglycemia ) 15 - 30 gm PO UD PRN PRN Reason: Hypoglycemia Protocol Stop: 09/19/24 20:45 Olanzapine (Olanzapine 5 Mg Tablet) 5 mg PO BID PRN PRN Reason: Anxiety/Agitation Stop: 09/19/24 20:45 Ondansetron HCl (Ondansetron Inj 2 Mg/Ml 2 Ml Vial) 4 mg IV Q6H PRN PRN Reason: Nausea Stop: 09/19/24 18:32 Last Admin: 08/21/24 11:59 Dose: 4 mg Oxycodone HCl (Oxycodone Hcl Ir 30 Mg Tab (Immediate Release)) 45 mg PO Q4H PRN PRN Reason: Moderate Pain (Scale 4, 5, 6) Stop: 09/03/24 20:50 Polyethylene Glycol (Polyethylene (Miralax) 17 Gm Pack) 17 gm PO DAILY PRN PRN Reason: Constipation Stop: 09/19/24 18:32 Senna/Docusate Sodium (Docusate Sodium/Senna 50/8.6mg Tab) 1 tab PO BID PRN PRN Reason: Constipation Stop: 09/19/24 20:45 PG Care Time/CCT Total # of Minutes Spent Total Time Spent with Patient: Total time spent is greater than 50% in coordination of care (as documented) at patient's floor/unit and/or counseling patient: [place] [address] IN/OBS CONSULT LVL 5,80M Patient Type New History Expanded Problem Focused Exam Expanded Problem Focused Medical Decision Making Moderate Complexity Diagnoses Palliative care by specialist Z51.5 Uncontrolled pain R52 Therapeutic opioid-induced constipation (OIC) K59.03; T40.2X5A Refractory nausea and vomiting R11.2
--- NOTE | 2024-08-22 12:24 | Hospitalist Progress Note ---
Date of Service August 22, 2024 Assessment & Plan (1) Severe pain: (2) Breast cancer metastasized to bone: Plan: Assessment/plan Metastatic breast cancer Cancer-related pain Patient presents to the hospital with severe cancer-related pain due to bony metastasis. At homefentanyl patch and oxycodone 45 to 60 mg as needed and as needed Dilaudid. Continue her home pain regimen; Dilaudid frequency decreased to q3h. Discussed with patient; oral Dilaudid added. I recommended patient to prioritize oral Dilaudid over IV in the hopes of discharging her on p.o. Dilaudid in next few days. Palliative care consulted for pain management; appreciate recommendation History of type 2 diabetes mellituscontinue on insulin while inpatient DNR/DNI DVT prophylaxis heparin Please note the above document was generated using voice recognition software. It may contain grammatical, syntax or spelling errors. Any formal questions or concerns about the content, text or information contained within the body of this dictation should be directly addressed to the provider for clarification Admission and Anticipated Discharge Date Admission Date: August 20, 2024 Subjective Patient seen and examined at bedside. She reports that her pain is well- controlled on current medication. No significant events overnight Review of Systems Review of Systems: All systems reviewed & are unremarkable except as noted in Subjective Physical Exam Physical Exam: Constitutional: Alert oriented x 3; not in distress. Respiratory: Bilateral vesicular breath sound. Cardiovascular: RRR, no murmur, no edema Vessels: no JVD or carotid bruit Chest: normal inspection of chest Abdomen: normal bowel sounds, soft, nontender, no hepatosplenomegaly Musculoskeletal: No knee tenderness; ROM intact in all extremities. Skin: no rashes, warm and dry normal turgor Neurologic: PERRL, EOMI, accommodation nl, no face palsy, no dysarthria CN's II- XI intact bilaterally and moves all extremities Results & Data Results & Data Vital Signs (Past 12 Hours) Vital Signs Temp Pulse Resp BP Pulse Ox O2 Del Method 08/22/24 09:30 Room Air 08/22/24 07:48 36.7 C 77 18 91/61 L 97 Room Air (2) Breast cancer metastasized to bone Laterality: unspecified laterality Qualified Code(s): C50.919 - Malignant ne oplasm of unspecified site of unspecified female breast; C79.51 - Secondary malignant neoplasm of bone
[2024-08-22 21:08] VITALS: RESP 16
[2024-08-23 07:25] VITALS: BP 97/65; PULSE 73; TEMP 98.1; O2SAT 99
--- NOTE | 2024-08-23 11:25 | Hospitalist Progress Note ---
Date of Service August 23, 2024 Assessment & Plan (1) Severe pain: (2) Breast cancer metastasized to bone: Plan: Metastatic breast cancer Cancer-related pain Patient presents to the hospital with severe cancer-related pain due to bony metastasis. At homefentanyl patch and oxycodone 45 to 60 mg as needed and as needed Dilaudid. Follows with [facility] oncology On palliative chemotherapy. Next chemotherapy for 08/24/2024 Continue her home pain regimen Also follows with Palliative care for pain management; appreciate recommendation Plan to be discharged home today History of type 2 diabetes mellitus continue on insulin while inpatient Leukopenia Normocytic anemia Likely due to metastatic disease, chemotherapy Code Status DNR/DNI DVT Px: Heparin SQ Please note the above document was generated using voice recognition software. It may contain grammatical, syntax or spelling errors. Any formal questions or concerns about the content, text or information contained within the body of this dictation should be directly addressed to the provider for clarification Admission and Anticipated Discharge Date Admission Date: August 20, 2024 Subjective Patient is seen and examined at bedside States having shoulder, knee, rib pain Denies any other complaints today Plan to be discharged home today Review of Systems Review of Systems: All systems reviewed & are unremarkable except as noted in Subjective Physical Exam Physical Exam: Physical Exam: Vitals signs as noted above General Appearance:Overweight, no apparent distress Head: normocephalic, Atraumatic Eyes: normal inspection, EOMI Neck: supple, Trachea midline Respiratory/Chest: Normal breath sounds, CTA, No accessory muscle use Cardiovascular: S1, S2, No murmur Abdomen/GI:Soft, Non tender, Bowel sounds present Extremities/Musculoskeletal:normal inspection, no edema Neurologic/Psych:AAOX3, grossly no focal neurological deficits Skin: normal color, warm Results & Data Results & Data Vital Signs (Past 12 Hours) Vital Signs Temp Pulse Resp BP Pulse Ox O2 Del Method 08/23/24 07:23 36.7 C 73 16 97/65 L 99 Room Air (2) Breast cancer metastasized to bone Laterality: unspecified laterality Qualified Code(s): C50.919 - Malignant neoplasm of unspecified site of unspecified female breast; C79.51 - Secondary malignant neoplasm of bone
--- NOTE | 2024-08-23 11:35 | Discharge Summary ---
Date of Service August 23, 2024 Admission HPI Per Admitting Provider Patient is 49-year-old female with medical history of metastatic breast cancer currently on dose reduced eribulin presents to the hospital due to pain secondary to bony metastatic disease. She reports that she had a fall few days ago while she was on the walker and felt her knee injuring her left knee and shoulder. She reports that she has not been able to get any rest or sleep due to the pain. She is currently on fentanyl patch and as needed oxycodone which has not helped with her pain. Admission Exam Per Admitting Provider Constitutional: Alert oriented x 3; not in distress. Respiratory: Bilateral vesicular breath sound. Cardiovascular: RRR, no murmur, no edema Vessels: no JVD or carotid bruit Chest: normal inspection of chest Abdomen: normal bowel sounds, soft, nontender, no hepatosplenomegaly Musculoskeletal: No knee tenderness; ROM intact in all extremities. Skin: no rashes, warm and dry normal turgor Neurologic: PERRL, EOMI, accommodation nl, no face palsy, no dysarthria CN's II- XI intact bilaterally and moves all extremities Principal Diagnosis Metastatic breast cancer Discharge Data Allergies Allergy/AdvReac Type Severity Reaction Status Date / Time No Known Allergies Allergy Verified 08/18/24 15:54 Consultations 08/20/24 18:41 ED Decision to Admit Stat 08/20/24 20:46 Consult Palliative Care Routine Procedures Performed Laboratory Results WBC 3.02 K/ul (4.8-10.8) L 08/20/24 16:57 RBC 2.98 M/uL (4.20-5.40) L 08/20/24 16:57 Hgb 8.6 g/dl (12.0-16.0) L 08/20/24 16:57 Hct 26.0 % (37.0-47.0) L 08/20/24 16:57 MCV 87.2 fL (80.0-100.0) 08/20/24 16:57 MCH 28.9 pg (25.0-34.0) 08/20/24 16:57 MCHC 33.1 g/dL (32.0-36.0) 08/20/24 16:57 RDW Std Deviation 57.1 fL (36.4-46.3) H 08/20/24 16:57 RDW Coeff of Joshua 17.9 % (11.5-14.5) H 08/20/24 16:57 Plt Count 151 K/uL (130-400) 08/20/24 16:57 MPV 9.0 fL (9.4-12.4) L 08/20/24 16:57 Immature Gran % (Auto) 1.0 % 08/20/24 16:57 Neut % (Auto) 59.6 % 08/20/24 16:57 Lymph % (Auto) 25.8 % 08/20/24 16:57 [place] % (Auto) 12.9 % 08/20/24 16:57 Eos % (Auto) 0.0 % 08/20/24 16:57 Baso % (Auto) 0.7 % 08/20/24 16:57 Neut # (Auto) 1.80 K/uL (1.40-6.50) 08/20/24 16:57 Lymph # (Auto) 0.78 K/uL (1.20-3.40) L 08/20/24 16:57 [place] # (Auto) 0.39 K/uL (0.11-0.59) 08/20/24 16:57 Eos # (Auto) 0.00 K/uL (0.00-0.50) 08/20/24 16:57 Baso # (Auto) 0.02 K/uL (0.00-0.20) 08/20/24 16:57 Immature Gran # (Auto) 0.03 K/uL (0.01-0.20) 08/20/24 16:57 Sodium 134 mmol/L (136-145) L 08/20/24 16:57 Potassium 3.7 mmol/L (3.5-5.1) 08/20/24 16:57 Chloride 101 mmol/L (98-107) 08/20/24 16:57 Carbon Dioxide 25 mmol/L (21-32) 08/20/24 16:57 Anion Gap 8 (3-11) 08/20/24 16:57 BUN 21 mg/dl (6-23) 08/20/24 16:57 Creatinine 0.97 mg/dl (0.6-1.2) 08/20/24 16:57 Est Cr Clr Drug Dosing Not Reportable 08/20/24 16:57 eGFR 72.53 08/20/24 16:57 BUN/Creatinine Ratio 21.6 (10-20) H 08/20/24 16:57 Glucose 200 mg/dl (70-99(Fasting)) H 08/20/24 16:57 POC Glucose 176 mg/dl (70-99) H 08/23/24 07:41 Calcium 9.1 mg/dl (8.6-10.3) 08/20/24 16:57 Total Bilirubin 0.7 mg/dl (0.2-1.0) 08/20/24 16:57 AST 21 U/L (13-39) 08/20/24 16:57 ALT 13 U/L (7-52) 08/20/24 16:57 Alkaline Phosphatase 151 U/L (34-104) H 08/20/24 16:57 Total Protein 6.4 gm/dl (6.0-8.3) 08/20/24 16:57 Albumin 3.4 gm/dl (3.4-5.0) 08/20/24 16:57 Globulin 3.0 gm/dl (2.5-4.0) 08/20/24 16:57 Albumin/Globulin Ratio 1.1 (0.9-2) 08/20/24 16:57 Impressions Shoulder X-Ray 08/20/24 16:43 EXAM: Radiographs of the Right Shoulder Complete 2 or More Views INDICATION: Posttraumatic pain. TECHNIQUE: Two or more views of the right shoulder. COMPARISON: No relevant prior studies available. FINDINGS: Bones/joints: There is acute fracture of the anterior 3rd and 4th ribs. Age-indeterminate fractures posterior 6th through 9th ribs. Extensive mixed lytic and sclerotic metastatic lesions noted. Lytic lesions are particularly prominent in the distal clavicle, glenoid and humerus. There is an expansile sclerotic lesion in the posterior second rib. No scapular, clavicular or humeral fracture identified. Soft tissues: No abnormality noted. No radiopaque foreign body noted. IMPRESSION: 1. Extensive mixed lytic and sclerotic metastatic lesions with acute fractures of the anterior 3rd and 4th ribs. Age-indeterminate fractures posterior 6th through 9th ribs. 2. Particularly prominent lytic lesions noted in the distal clavicle, glenoid and humerus. ACT 112: N/A Electronically signed by Malena Andrade 08-20-2024 5:16 PM Hospital Course (1) Severe pain: (2) Breast cancer metastasized to bone: Metastatic breast cancer Cancer-related pain Patient presents to the hospital with severe cancer-related pain due to bony metastasis. At homefentanyl patch and oxycodone 45 to 60 mg as needed and as needed Dilaudid. Follows with [facility] oncology On palliative chemotherapy. Next chemotherapy for 08/24/2024 Continue her home pain regimen Also follows with Palliative care for pain management; appreciate recommendation Plan to be discharged home today History of type 2 diabetes mellitus continue on insulin while inpatient Leukopenia Normocytic anemia Likely due to metastatic disease, chemotherapy Code Status DNR/DNI DVT Px: Heparin SQ Please note the above document was generated using voice recognition software. It may contain grammatical, syntax or spelling errors. Any formal questions or concerns about the content, text or information contained within the body of this dictation should be directly addressed to the provider for clarification Total Time Total Time Spent Total Time Spent (In Minutes): 45 minutes Discharge Plan Discharge Items Patient Disposition: Home - Self-Care Reason For Visit: CANCER RELATED PAIN Discharge Diagnosis: Metastatic breast cancer Condition on Discharge: Good Activity: Per Instructions section Exercise/Sports: Wait until after follow-up appointment Non-emergency contact: Primary Care Provider and Oncologist Call non-emergency contact if: you have any medication questions, your symptoms worsen, your pain is concerning for you and you have a fever Follow-up/Referrals: Adonis Lawler CRNP [Primary Care Provider] - 08/29/24 2:00 pm Diet: Carb Consistent or DM2 Addtl Attending Provider Instructions: Follow-up with your primary care physician Adonis MEEKS on 08/29/2024 at 2 PM Follow-up with your oncologist as scheduled Follow-up with palliative care as recommended Seek immediate medical attention if your symptoms reoccur or worsen Please review medication list provided on discharge for any medication changes as instructed. Please call if you have any questions or problems. You can reach a [facility] hospitalist on duty at [facility] 24 hours a day by calling [phone] Pending Studies at Discharge: No Stand-Alone Forms: My [facility] [employer], Smoking Cessation Medications and DC Order Prescriptions: Continued insulin glargine [Lantus Solostar U-100 Insulin] 100 unit/mL (3 mL) insulin pen 10 unit SUBCUT BID fentanyl 75 mcg/hr patch 72 hour 1 patch transdermal Q72H 30 Days Qty: 10 0RF Rx Instructions: 1 month supply, ten patches for severe cancer pain ondansetron 8 mg tablet,disintegrating 8 mg translingual BID PRN (Reason: Nausea And Vomiting) insulin aspart U-100 [Novolog FlexPen U-100 Insulin] 100 unit/mL (3 mL) insulin pen 0 sliding scale dose SUBCUT AC Rx Instructions: Sliding Scale tid with meals. sennosides-docusate sodium [Senokot-S] 8.6-50 mg Tablet 1 tab PO BID PRN (Reason: Constipation) Qty: 30 0RF oxycodone 30 mg tablet 45 - 60 mg PO Q4H PRN (Reason: Severe Pain (Scale Score 7-10)) metoclopramide HCl 10 mg tablet 10 mg PO .1-2X A DAY PRN (Reason: n/v) quetiapine [Seroquel] 25 mg tablet 25 mg PO DAILY PRN (Reason: Other) hydromorphone [Dilaudid] 8 mg tablet 8 mg PO TID PRN (Reason: very severe bone mets related cancer pain) Rx Instructions: intolerant to higher doses of TDF, progressive mets per pt she just uses as needed because it doesnt work as well for her olanzapine [Zyprexa] 5 mg tablet 5 mg PO BID PRN (Reason: n/v) Discharge Orders: Discharge Order (Routine); Ordered 08/23/24 Ordered By: Rafi Garland Admission Data Admit Date/Time: 08/20/24 18:33 Attending Provider: Rafi Garland Admit Provider: Tree Oquendo Primary Care Provider: Adonis Lawler Other Providers: Luna Limon; Tree Oquendo
--- NOTE | 2024-08-23 15:45 | Palliative Care Progress Note ---
Date of Service August 23, 2024 Assessment & Plan (1) Cancer related pain: (2) Weakness generalized: (3) Therapeutic opioid-induced constipation (OIC): (4) Palliative care by specialist: (5) Severe pain: (6) Breast cancer metastasized to bone: Plan As above Continue TDF and prn Oxy IR She has a 1 mo supply of TDF 75 at home Thank you for allowing us to participate in the ongoing care of this patient. Please page with any additional concerns. Pilar Limon DNP Director, Palliative Medicine Admission and Anticipated Discharge Date Admission Date: August 20, 2024 Subjective feeling better dc home today is planned for afternoon has adequate TDF 75mcg supply at home - 2 full boxes no nausea today appetite improved clinic appt tomorrow for treatment, plans to keep this Review of Systems Review of Systems: All systems reviewed & are unremarkable except as noted in Subjective Physical Exam Constitutional: + ill appearing, + frail appearing, coop erative and comfortable bitemp wasting, chemo related alopecia Eyes: PERRL, conjunctivae normal, anicteric sclerae ENMT: external ear and nose normal, oropharynx normal Neck: trachea midline, no thyromegaly Cardiovascular: RRR, no murmur, no edema Gastrointestinal (Abdomen): normal bowel sounds, soft, nontender, no hepatosplenomegaly Musculoskeletal: Anterior to lateral left ribs/chest and back +TTP +generalized weakness, LLE >> RLE paraspinal tenderness, R hip tenderness Skin: + turgor decreased and + pallor Neurologic: PERRL, EOMI, accommodation nl, no face palsy, no dysarthria Psychiatric: Orientation: oriented x 3 Affect: + flat affect Results & Data Vital Signs (Past 12 Hours) Vital Signs Temp Pulse Resp BP Pulse Ox O2 Del Method 08/23/24 07:23 36.7 C 73 16 97/65 L 99 Room Air Laboratory Results 08/23/24 08/23/24 08/22/24 Range/Units 11:35 07:41 21:03 WBC (4.8-10.8) K/ul RBC (4.20-5.40) M/uL Hgb (12.0-16.0) g/dl Hct (37.0-47.0) % MCV (80.0-100.0) fL MCH (25.0-34.0) pg MCHC (32.0-36.0) g/dL RDW Std Deviation (36.4-46.3) fL RDW Coeff of Joshua (11.5-14.5) % Plt Count (130-400) K/uL MPV (9.4-12.4) fL Immature Gran % (Auto) % Neut % (Auto) % Lymph % (Auto) % [place] % (Auto) % Eos % (Auto) % Baso % (Auto) % Neut # (Auto) (1.40-6.50) K/uL Lymph # (Auto) (1.20-3.40) K/uL [place] # (Auto) (0.11-0.59) K/uL Eos # (Auto) (0.00-0.50) K/uL Baso # (Auto) (0.00-0.20) K/uL Immature Gran # (Auto) (0.01-0.20) K/uL Sodium (136-145) mmol/L Potassium (3.5-5.1) mmol/L Chloride (98-107) mmol/L Carbon Dioxide (21-32) mmol/L Anion Gap (3-11) BUN (6-23) mg/dl Creatinine (0.6-1.2) mg/dl Est Cr Clr Drug Dosing eGFR BUN/Creatinine Ratio (10-20) Glucose (70-99(Fasting)) mg/dl POC Glucose 190 H 176 H 198 H (70-99) mg/dl Calcium (8.6-10.3) mg/dl Total Bilirubin (0.2-1.0) mg/dl AST (13-39) U/L ALT (7-52) U/L Alkaline Phosphatase (34-104) U/L Total Protein (6.0-8.3) gm/dl Albumin (3.4-5.0) gm/dl Globulin (2.5-4.0) gm/dl Albumin/Globulin Ratio (0.9-2) 08/22/24 08/22/24 08/22/24 Range/Units 16:35 11:27 07:25 WBC (4.8-10.8) K/ul RBC (4.20-5.40) M/uL Hgb (12.0-16.0) g/dl Hct (37.0-47.0) % MCV (80.0-100.0) fL MCH (25.0-34.0) pg MCHC (32.0-36.0) g/dL RDW Std Deviation (36.4-46.3) fL RDW Coeff of Joshua (11.5-14.5) % Plt Count (130-400) K/uL MPV (9.4-12.4) fL Immature Gran % (Auto) % Neut % (Auto) % Lymph % (Auto) % [place] % (Auto) % Eos % (Auto) % Baso % (Auto) % Neut # (Auto) (1.40-6.50) K/uL Lymph # (Auto) (1.20-3.40) K/uL [place] # (Auto) (0.11-0.59) K/uL Eos # (Auto) (0.00-0.50) K/uL Baso # (Auto) (0.00-0.20) K/uL Immature Gran # (Auto) (0.01-0.20) K/uL Sodium (136-145) mmol/L Potassium (3.5-5.1) mmol/L Chloride (98-107) mmol/L Carbon Dioxide (21-32) mmol/L Anion Gap (3-11) BUN (6-23) mg/dl Creatinine (0.6-1.2) mg/dl Est Cr Clr Drug Dosing eGFR BUN/Creatinine Ratio (10-20) Glucose (70-99(Fasting)) mg/dl POC Glucose 241 H 222 H 189 H (70-99) mg/dl Calcium (8.6-10.3) mg/dl Total Bilirubin (0.2-1.0) mg/dl AST (13-39) U/L ALT (7-52) U/L Alkaline Phosphatase (34-104) U/L Total Protein (6.0-8.3) gm/dl Albumin (3.4-5.0) gm/dl Globulin (2.5-4.0) gm/dl Albumin/Globulin Ratio (0.9-2) 08/21/24 08/21/24 08/21/24 Range/Units 21:37 16:26 11:22 WBC (4.8-10.8) K/ul RBC (4.20-5.40) M/uL Hgb (12.0-16.0) g/dl Hct (37.0-47.0) % MCV (80.0-100.0) fL MCH (25.0-34.0) pg MCHC (32.0-36.0) g/dL RDW Std Deviation (36.4-46.3) fL RDW Coeff of Joshua (11.5-14.5) % Plt Count (130-400) K/uL MPV (9.4-12.4) fL Immature Gran % (Auto) % Neut % (Auto) % Lymph % (Auto) % [place] % (Auto) % Eos % (Auto) % Baso % (Auto) % Neut # (Auto) (1.40-6.50) K/uL Lymph # (Auto) (1.20-3.40) K/uL [place] # (Auto) (0.11-0.59) K/uL Eos # (Auto) (0.00-0.50) K/uL Baso # (Auto) (0.00-0.20) K/uL Immature Gran # (Auto) (0.01-0.20) K/uL Sodium (136-145) mmol/L Potassium (3.5-5.1) mmol/L Chloride (98-107) mmol/L Carbon Dioxide (21-32) mmol/L Anion Gap (3-11) BUN (6-23) mg/dl Creatinine (0.6-1.2) mg/dl Est Cr Clr Drug Dosing eGFR BUN/Creatinine Ratio (10-20) Glucose (70-99(Fasting)) mg/dl POC Glucose 191 H 166 H 191 H (70-99) mg/dl Calcium (8.6-10.3) mg/dl Total Bilirubin (0.2-1.0) mg/dl AST (13-39) U/L ALT (7-52) U/L Alkaline Phosphatase (34-104) U/L Total Protein (6.0-8.3) gm/dl Albumin (3.4-5.0) gm/dl Globulin (2.5-4.0) gm/dl Albumin/Globulin Ratio (0.9-2) 08/21/24 08/20/24 08/20/24 Range/Units 07:39 22:03 16:57 WBC 3.02 L (4.8-10.8) K/ul RBC 2.98 L (4.20-5.40) M/uL Hgb 8.6 L (12.0-16.0) g/dl Hct 26.0 L (37.0-47.0) % MCV 87.2 (80.0-100.0) fL MCH 28.9 (25.0-34.0) pg MCHC 33.1 (32.0-36.0) g/dL RDW Std Deviation 57.1 H (36.4-46.3) fL RDW Coeff of Joshua 17.9 H (11.5-14.5) % Plt Count 151 (130-400) K/uL MPV 9.0 L (9.4-12.4) fL Immature Gran % (Auto) 1.0 % Neut % (Auto) 59.6 % Lymph % (Auto) 25.8 % [place] % (Auto) 12.9 % Eos % (Auto) 0.0 % Baso % (Auto) 0.7 % Neut # (Auto) 1.80 (1.40-6.50) K/uL Lymph # (Auto) 0.78 L (1.20-3.40) K/uL [place] # (Auto) 0.39 (0.11-0.59) K/uL Eos # (Auto) 0.00 (0.00-0.50) K/uL Baso # (Auto) 0.02 (0.00-0.20) K/uL Immature Gran # (Auto) 0.03 (0.01-0.20) K/uL Sodium 134 L (136-145) mmol/L Potassium 3.7 (3.5-5.1) mmol/L Chloride 101 (98-107) mmol/L Carbon Dioxide 25 (21-32) mmol/L Anion Gap 8 (3-11) BUN 21 (6-23) mg/dl Creatinine 0.97 (0.6-1.2) mg/dl Est Cr Clr Drug Dosing Not Reportable eGFR 72.53 BUN/Creatinine Ratio 21.6 H (10-20) Glucose 200 H (70-99(Fasting)) mg/dl POC Glucose 188 H 192 H (70-99) mg/dl Calcium 9.1 (8.6-10.3) mg/dl Total Bilirubin 0.7 (0.2-1.0) mg/dl AST 21 (13-39) U/L ALT 13 (7-52) U/L Alkaline Phosphatase 151 H (34-104) U/L Total Protein 6.4 (6.0-8.3) gm/dl Albumin 3.4 (3.4-5.0) gm/dl Globulin 3.0 (2.5-4.0) gm/dl Albumin/Globulin Ratio 1.1 (0.9-2) Diagnostic Findings Shoulder X-Ray 08/20/24 16:43 EXAM: Radiographs of the Right Shoulder Complete 2 or More Views INDICATION: Posttraumatic pain. TECHNIQUE: Two or more views of the right shoulder. COMPARISON: No relevant prior studies available. FINDINGS: Bones/joints: There is acute fracture of the anterior 3rd and 4th ribs. Age-indeterminate fractures posterior 6th through 9th ribs. Extensive mixed lytic and sclerotic metastatic lesions noted. Lytic lesions are particularly prominent in the distal clavicle, glenoid and humerus. There is an expansile sclerotic lesion in the posterior second rib. No scapular, clavicular or humeral fracture identified. Soft tissues: No abnormality noted. No radiopaque foreign body noted. IMPRESSION: 1. Extensive mixed lytic and sclerotic metastatic lesions with acute fractures of the anterior 3rd and 4th ribs. Age-indeterminate fractures posterior 6th through 9th ribs. 2. Particularly prominent lytic lesions noted in the distal clavicle, glenoid and humerus. ACT 112: N/A Electronically signed by Malena Andrade 08-20-2024 5:16 PM PG Care Time/CCT Total # of Minutes Spent Total Time Spent with Patient: Total time spent is greater than 50% in coordination of care (as documented) at patient's floor/unit and/or counseling patient: Coding [place] [address] SUB INP/OBS CARE 3/50MIN Patient Type Established History Comprehensive Exam Comprehensive Medical Decision Making High Complexity Diagnoses Cancer related pain G89.3 Weakness generalized R53.1 Therapeutic opioid-induced constipation (OIC) K59.03; T40.2X5A Palliative care by specialist Z51.5 Severe pain R52 Carcinoma of breast metastatic to bone, unspecified laterality C50.919; C79.51 Laterality: unspecified laterality (6) Breast cancer metastasized to bone Laterality: unspecified laterality Qualified Code(s): C50.919 - Malignant neoplasm of unspecified site of unspecified female breast; C79.51 - Secondary malignant neoplasm of bone
== END 2024-08-23 15:11 | disposition home or self-care (01) | DRG 948 ==
LOC: ED 15:55 → SUATTDRO 18:33 → 3E 18:33
DX: Z66 Do not resuscitate; Z51.5 Encounter for palliative care; D64.9 Anemia, unspecified; Z79.4 Long term (current) use of insulin; D72.819 Decreased white blood cell count, unspecified; Z79.620 Long term (current) use of immunosuppressive biologic; C79.51 Secondary malignant neoplasm of bone; C50.919 Malignant neoplasm of unspecified site of unspecified female breast; G89.3 Neoplasm related pain (acute) (chronic); E11.42 Type 2 diabetes mellitus with diabetic polyneuropathy

== ENCOUNTER 2024-09-13 20:17 | Inpatient (IN) ==
--- NOTE | 2024-09-13 20:51 | Emergency Department Note ---
Impression & Plan Closed fracture of greater trochanter of left femur, Fall, Anemia ED Provider Note NAME: DEMETRIA CHAN AGE: 49 SEX: F : 1975 ARRIVES VIA: Walk-In INFORMANT: Patient, ED PROVIDER(S): Rey Parnell DO CHIEF COMPLAINT: Leg pain HPI: The patient is a 49-year-old female who presented to the emergency department with left leg pain. The patient had a fall last month. She has a history of skeletal metastatic disease from breast cancer. The patient was diagnosed with previous fractures but she is continue to have left hip pain after the fall. She is scheduled for a CT of her leg with her primary palliative medicine doctor. The patient was told if her pain became unbearable she should go to the emergency department for further evaluation. ROS: See above HPI for pertinent positives & negatives. A total of 10 systems reviewed and were otherwise negative. PAST MEDICAL HISTORY: See Below PAST SURGICAL HISTORY: See Below FAMILY HISTORY: See Below SOCIAL HISTORY: See Below HOME MEDICATIONS: See Below ALLERGIES: See Below VITALS: See Below PHYSICAL EXAMINATION: GENERAL: The patient is awake and alert. She appears uncomfortable. EYES: The conjunctivae are clear. The pupils are round and reactive. EARS, NOSE, MOUTH AND THROAT: The nose is without any evidence of any deformity NECK: The neck is nontender and supple. RESPIRATORY: Normal respiratory effort is noted there is no evidence of wheezing rhonchi or rales CARDIOVASCULAR: Regular rate and rhythm noted there no murmurs rubs or gallops normal S1 normal S2. GASTROINTESTINAL: The abdomen is soft. Abdomen is nontender. BACK: There is no tenderness over the lumbar or thoracic spine. Range of motion appears intact. MUSCULOSKELETAL/EXTREMITIES: There is no shortening or deformity of the left leg. There is pain with range of motion testing of the left hip. There is no ecchymosis. SKIN: There is no obvious evidence of any rash. There are no petechiae, pallor or cyanosis noted. NEUROLOGIC: Patient is awake alert and oriented x3. MEDICAL DECISION MAKING: The patient is a 49-year-old female who has widely metastatic breast cancer. The patient has multiple skeletal mets. The patient had a fall last month. She has been followed by orthopedics as well as her family doctor as well as her palliative medicine physician for ongoing left leg pain. The patient had a CT of the lower extremity this evening ordered by myself. She was treated with pain medication in the emergency department. She appears to have a greater trochanter fracture on the left. This would explain her pain as this is where she is point tender. She also might have an area of pathologic fracture in the subcapital region. Acute I discussed her condition with the on-call orthopedic group. They do feel the patient would be a good candidate for management at our facility as no obvious surgical intervention exist at this time. I will discuss her condition with the on-call hospitalist. Triage Nursing notes reviewed. Prior medical records reviewed Vital Signs: reviewed and remarkable for no significant abnormalities Differential diagnosis: Fracture, subluxation, dislocation, contusion, ligamentous injury, neurovascular, compartment syndrome, rhabdomyolysis, as well as other pathologies. ER treatment provided: See below Diagnostics interpreted by me: ECG: None Cardiac Monitoring: An order was placed for continuous cardiac monitoring. The monitor shows a rate of 85 bpm with sinus rhythm. Laboratory studies: As stated above and show below. Imaging studies: See below. Radiographic imaging was reviewed by myself Consultation(s): I discussed this case with Keya who is on-call for the orthopedic group. I discussed this case with Dr. Laura who is on-call for the [facility] hospitalist group. Past Med/Surg History Problem List (Updated 09/13/24 @ 23:29 by Rey Parnell DO) Anemia (Acute) Fall (Acute) Closed fracture of greater trochanter of left femur (Acute) Left hip pain Refractory nausea and vomiting Closed rib fracture (Acute) Uncontrolled pain (Acute) Breast cancer (Acute) Metastatic cancer (Acute) Myopathy Leg weakness, bilateral Insomnia Severe pain Palliative care by specialist (Acute) Therapeutic opioid-induced constipation (OIC) (Acute) Breast cancer metastasized to multiple sites (Acute) Anemia (Acute) Parainfluenza Weakness generalized (Chronic) Depression Breast cancer metastasized to bone (Chronic) Cancer related pain (Chronic) Arthritis Obesity Hypothyroidism Type II diabetes mellitus (Acute) Medical History DM type 2 (diabetes mellitus, type 2) Breast cancer metastasized to bone History of COVID-19 12/2020 + 12/2021 > residual taste dysfunction and feeling of need to clear throat Bilateral breast cancer Arthritis Liver spots "Mets from cancer" Depression with anxiety Peripheral neuropathy Heart palpitations R/t anxiety per patient History of small bowel obstruction Hx bowel obstruction Hypothyroidism No current meds Surgical History History of tubal ligation Port-A-Cath in place (04/30/22) Insertion Access Port left subclavian with Fluoroscopy(Left) - Chad Banuelos DO History of surgery Left Excisional Debridement of Buttock Wound Nausea and vomiting after administration of anesthetic agent "EXTREME" History of vascular access device PORT INSERTION/REMOVAL History of tooth extraction History of endometrial ablation History of bowel resection D/T BOWEL OBSTRUCTION History of lung surgery Left thoracoscopy with wedge resection left lower lobe Dr. Damico 03/29/2018 History of dilatation and curettage H/O hernia repair Hx of section x3 S/P lumpectomy, left breast LEFT ARM LIMB RESTRICTION Family History Mother , 77yo Diabetes Heart disease Aortic valve replacement Mitral valve calcifications UTI (urinary tract infection) Father , 62yo Diabetes Myocardial infarction Hypertension Stroke Brother Diabetes Myocardial infarction Cardiac stents Pacemaker Hypertension Sister No problems noted. Daughter No problems noted. Son No problems noted. Son No problems noted. Other No family history of adverse response to anesthesia Social History Smoking Status: Never smoker Second Hand Exposure: No; Do You Dip or Chew Tobacco: No; Hx Alcohol Use: No Hx Substance Use: Yes Last Used Substance: Unknown Last Used Substance Other:: used occasionally Substance Use Type Other:: Medical marijuana. 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 How many Children do You have: 3 Feels Safe at Home: Yes Diet: regular caffeine: No during the past year weight has: remained stable Assistive Devices: Bedside Commode, Walker and Wheelchair Allergies Allergies Allergy/AdvReac Type Severity Reaction Status Date / Time No Known Allergies Allergy Verified 09/13/24 20:51 Home Meds Home Medications Medication Instructions Recorded Confirmed insulin aspart U-100 100 unit/mL 0 sliding scale dose subcut AC 04/26/24 07/16/25 (3 mL) subcutaneous pen (Novolog FlexPen U-100 Insulin aspart) ondansetron 8 mg disintegrating 8 mg translingual BID PRN Nausea 06/25/23 09/13/24 tablet And Vomiting insulin glargine 100 unit/mL (3 10 unit subcut BID 09/23/23 09/13/24 mL) subcutaneous pen (Lantus Solostar U-100 Insulin) hydromorphone 8 mg tablet 8 mg PO TID PRN very severe bone 08/20/24 09/13/24 (Dilaudid) mets related cancer pain metoclopramide HCl 10 mg tablet 10 mg PO .1-2X A DAY PRN n/v 08/20/24 09/13/24 olanzapine 5 mg tablet (Zyprexa) 5 mg PO BID PRN n/v 08/20/24 09/13/24 oxycodone 30 mg tablet 45 - 60 mg PO Q4H PRN Severe Pain 08/20/24 09/13/24 (Scale Score 7-10) Previous Rx's Medication Instructions Recorded fentanyl 75 mcg/hr transdermal 1 patch transdermal Q72H 1 month 01/17/24 patch #10 ea Results & Data (ED) Vital Signs Vital Signs - 24 hr 09/13/24 20:21 09/13/24 21:17 09/13/24 21:17 Temperature 36.8 C Temperature Source Temporal Artery Scan Pulse Rate 109 H Pulse Rate [Apical] 92 H Respiratory Rate 18 16 Respiratory Effort / Characteristics Non-Labored Respiratory Depth Normal Respiratory Pattern Blood Pressure 110/76 Blood Pressure [Right Arm] 140/85 Blood Pressure Mean 87 Blood Pressure Mean [Right Arm] 103 Blood Pressure Position [Right Arm] Pulse Oximetry 98 100 Oxygen Delivery Method Room Air Room Air Room Air Sepsis Recent Fever Within 48 Hours No Sepsis New/Unexplained Change in Mental Status No Sepsis Action Taken by Nursing No Action Required 09/13/24 22:19 09/13/24 23:00 Temperature Temperature Source Pulse Rate 85 Pulse Rate [Apical] 87 Respiratory Rate 16 Respiratory Effort / Characteristics Non-Labored Spontaneous Respiratory Depth Normal Respiratory Pattern Regular Blood Pressure Blood Pressure [Right Arm] 120/73 Blood Pressure Mean Blood Pressure Mean [Right Arm] 88 Blood Pressure Position [Right Arm] Semi-fowlers Pulse Oximetry 100 Oxygen Delivery Method Room Air Sepsis Recent Fever Within 48 Hours Sepsis New/Unexplained Change in Mental Status Sepsis Action Taken by Group Home Medications Current Medication List: was personally reviewed by me Laboratory Data Attestation: I reviewed the patient's lab results. 09/13/24 21:19 09/13/24 21:19 Lab Results 09/13/24 Range/Units 21:19 WBC 4.76 L (4.8-10.8) K/ul RBC 2.72 L (4.20-5.40) M/uL Hgb 8.2 L (12.0-16.0) g/dl Hct 23.1 L (37.0-47.0) % MCV 84.9 (80.0-100.0) fL MCH 30.1 (25.0-34.0) pg MCHC 35.5 (32.0-36.0) g/dL RDW Std Deviation 48.2 H (36.4-46.3) fL RDW Coeff of Joshua 15.6 H (11.5-14.5) % Plt Count 158 (130-400) K/uL MPV 9.7 (9.4-12.4) fL Immature Gran % (Auto) 1.5 % Neut % (Auto) 69.8 % Lymph % (Auto) 23.1 % Edmunds % (Auto) 4.0 % Eos % (Auto) 0.8 % Baso % (Auto) 0.8 % Neut # (Auto) 3.32 (1.40-6.50) K/uL Lymph # (Auto) 1.10 L (1.20-3.40) K/uL Edmunds # (Auto) 0.19 (0.11-0.59) K/uL Eos # (Auto) 0.04 (0.00-0.50) K/uL Baso # (Auto) 0.04 (0.00-0.20) K/uL Immature Gran # (Auto) 0.07 (0.01-0.20) K/uL Sodium 134 L (136-145) mmol/L Potassium 3.8 (3.5-5.1) mmol/L Chloride 101 (98-107) mmol/L Carbon Dioxide 25 (21-32) mmol/L Anion Gap 8 (3-11) BUN 21 (6-23) mg/dl Creatinine 0.90 (0.6-1.2) mg/dl Est Cr Clr Drug Dosing 86.3 ml/min eGFR 79.35 BUN/Creatinine Ratio 23.3 H (10-20) Glucose 286 H (70-99(Fasting)) mg/dl Calcium 9.5 (8.6-10.3) mg/dl Total Bilirubin 0.5 (0.2-1.0) mg/dl AST 20 (13-39) U/L ALT 13 (7-52) U/L Alkaline Phosphatase 150 H (34-104) U/L Total Protein 6.4 (6.0-8.3) gm/dl Albumin 3.3 L (3.4-5.0) gm/dl Globulin 3.1 (2.5-4.0) gm/dl Albumin/Globulin Ratio 1.1 (0.9-2) Lipase 13 (11-82) U/L Administered Medications Hydromorphone HCl (Hydromorphone Inj 1 Mg/Ml Syringe) 1 mg IV Q15M PRN PRN Reason: Pain Stop: 09/27/24 20:44 Last Admin: 09/13/24 23:11 Dose: 1 mg Documented By: Admin: 09/13/24 21:25 Dose: 1 mg Documented By: CONNOR Discontinued Medications Ondansetron HCl (Ondansetron Inj 2 Mg/Ml 2 Ml Vial) 4 mg IV NOW STA Stop: 09/13/24 20:46 Last Admin: 09/13/24 21:25 Dose: Not Given Documented By: CONNOR Imaging Data Attestation: I personally reviewed and interpreted this imaging study as follows: My Impression: CT of the left femur was obtained in the emergency department. My interpretation is widely metastatic disease noted in the cortical bone. Final report below. Radiologist's Impression: Femur CT 09/13/24 20:45 Exam(s): CT EXTREMITY LEFT LOWER Without Contrast EXAM: CT Left Lower Extremity Without Intravenous Contrast CLINICAL HISTORY: pain, fall, cancer. TECHNIQUE: Axial computed tomography images of the left lower extremity without intravenous contrast. CTDI is 24.91 mGy and DLP is 1300.17 mGy-cm. Automated exposure control was utilized for the study. A dose lowering technique was utilized adhering to the principles of ALARA. COMPARISON: No relevant prior studies available. FINDINGS: Bones/joints: Diffuse extensive osseous metastatic disease throughout the included skeletal structures with near complete resorption of the posterior column of the acetabulum and near complete resorption of the base of the left femoral neck. There is a nondisplaced fracture involving the lateral aspect of the left greater trochanter, best appreciated on coronal reformatted imaging. No dislocation. Soft tissues: Unremarkable. IMPRESSION: Extensive osseous metastatic disease. There is a nondisplaced fracture involving the lateral aspect of the left greater trochanter, best appreciated on coronal reformatted imaging. The remaining osseous structures are intact; however, there is near complete resorption at the base of the left femoral neck. The patient is considered high risk for pathologic fracture. Electronically signed by: Jeovany Ramirez MD 09/13/24 23:02 PM Discharge Plan Visit Data Chief Complaint: Hip Pain Stated Complaint: LT HIP FEMUR PAIN ED Provider: Rey Parnell Discharge Problem: Closed fracture of greater trochanter of left femur, Fall, Anemia Patient Disposition: Being Evaluated by Hospitalist Condition: Fair Forms Stand Alone Forms: My [facility] Prescriptions Prescriptions: No Action insulin glargine [Lantus Solostar U-100 Insulin] 100 unit/mL (3 mL) insulin pen 10 unit SUBCUT BID fentanyl 75 mcg/hr patch 72 hour 1 patch transdermal Q72H 30 Days Qty: 10 0RF Rx Instructions: 1 month supply, ten patches for severe cancer pain ondansetron 8 mg tablet,disintegrating 8 mg translingual BID PRN (Reason: Nausea And Vomiting) insulin aspart U-100 [Novolog FlexPen U-100 Insulin] 100 unit/mL (3 mL) insulin pen 0 sliding scale dose SUBCUT AC Rx Instructions: Sliding Scale tid with meals. oxycodone 30 mg tablet 45 - 60 mg PO Q4H PRN (Reason: Severe Pain (Scale Score 7-10)) metoclopramide HCl 10 mg tablet 10 mg PO .1-2X A DAY PRN (Reason: n/v) hydromorphone [Dilaudid] 8 mg tablet 8 mg PO TID PRN (Reason: very severe bone mets related cancer pain) Rx Instructions: intolerant to higher doses of TDF, progressive mets per pt she just uses as needed because it doesnt work as well for her olanzapine [Zyprexa] 5 mg tablet 5 mg PO BID PRN (Reason: n/v) Referrals Referrals: Mary James PA-C [Primary Care Provider] -
[2024-09-13] MEDS: HYDROmorphone INJ 1 MG/ML SYRINGE IV PRN (21:25)
[2024-09-13] MEDS: ONDANSETRON INJ 2 MG/ML 2 ML VIAL IV STA (21:25)
[2024-09-13 21:32] LABS: Hematocrit (blood only) 23.1 % (37.0-47.0); Hemoglobin 8.2 g/dl (12.0-16.0); Immature Granulocytes # (auto) 0.07 K/uL (0.01-0.20); Immature Granulocytes % (auto) 1.5 %; Mean Corpuscular Hemoglobin 30.1 pg (25.0-34.0); Mean Corpuscular Volume 84.9 fL (80.0-100.0); Platelet Count 158 K/uL (130-400); RDW Standard Deviation 48.2 fL (36.4-46.3); Red Blood Count 2.72 M/uL (4.20-5.40); White Blood Count 4.76 K/ul (4.8-10.8)
[2024-09-13 21:49] LABS: Alanine Aminotransferase 13.0 U/L (7-52); Albumin Globulin Ratio 1.1 (0.9-2); Alkaline Phosphatase 150.0 U/L (34-104); Anion Gap 8.0 (3-11); Bilirubin,Total 0.5 mg/dl (0.2-1.0); Blood Urea Nitrogen 21.0 mg/dl (6-23); Calcium 9.5 mg/dl (8.6-10.3); Carbon Dioxide 25.0 mmol/L (21-32); Chloride 101.0 mmol/L (98-107); Creatinine Clr Calc Pharmacy 86.3 ml/min; Globulin 3.1 gm/dl (2.5-4.0); Glucose 286.0 mg/dl (70-99(Fasting)); Lipase 13.0 U/L (11-82); Potassium 3.8 mmol/L (3.5-5.1); Sodium 134.0 mmol/L (136-145); Total Protein 6.4 gm/dl (6.0-8.3)
--- NOTE | 2024-09-13 23:03 | CT Scan Report ---
Exam(s): CT EXTREMITY LEFT LOWER Without Contrast EXAM: CT Left Lower Extremity Without Intravenous Contrast CLINICAL HISTORY: pain, fall, cancer. TECHNIQUE: Axial computed tomography images of the left lower extremity without intravenous contrast. CTDI is 24.91 mGy and DLP is 1300.17 mGy-cm. Automated exposure control was utilized for the study. A dose lowering technique was utilized adhering to the principles of ALARA. COMPARISON: No relevant prior studies available. FINDINGS: Bones/joints: Diffuse extensive osseous metastatic disease throughout the included skeletal structures with near complete resorption of the posterior column of the acetabulum and near complete resorption of the base of the left femoral neck. There is a nondisplaced fracture involving the lateral aspect of the left greater trochanter, best appreciated on coronal reformatted imaging. No dislocation. Soft tissues: Unremarkable. IMPRESSION: Extensive osseous metastatic disease. There is a nondisplaced fracture involving the lateral aspect of the left greater trochanter, best appreciated on coronal reformatted imaging. The remaining osseous structures are intact; however, there is near complete resorption at the base of the left femoral neck. The patient is considered high risk for pathologic fracture. Electronically signed by: Jevoany Ramirez MD 09/13/24 23:02 PM
--- NOTE | 2024-09-14 00:02 | History & Physical Report ---
Date of Service September 13, 2024 Assessment & Plan (1) Closed fracture of greater trochanter of left femur: (2) Fall: (3) Anemia: (4) Metastatic cancer: (5) Cancer related pain: Plan 49 year old female with metastatic breast cancer presents to the ER with worsening left hip pain #Left pathological greater trochanter fracture / Cancer related pain Do not suspect this is operative however will keep NPO with IV fluids and non weight bearing until images and patient evaluated by orthopedics in AM Consult radiation oncology as this has been helpful on prior bone mets Consult palliative care for help with pain management - will start with continuing her Fentanyl patch and Dilaudid 2-4mg IV q3h PRN (confirmed she was on Dilaudid 4mg q4h PRN last admission and on oxycodone 45-60mg q4h PRN at home) PT/OT deferred until seen by orthopedics #Metastatic breast cancer Under Dr Plascencia on Eribulin #Type 2 diabetes mellitus HbA1C with AM labs, 7.9 in August Continue Lantus 10 units BID Novolog: --Goal BSG Range: Low 110 mg/dL, High 140 mg/dL --Correction Factor: 45 mg/dL/unit --Carbohydrate ratio = 15 g/unit --BSGs ACHS if eating, q6h if npo Consult pharmacy for ongoing glycemic control #Normocytic anemia At baseline, management per outpatient hem/onc VTE Prophylaxis - Lovenox 40mg SQ HS Disposition - admit to [facility] Admission and Anticipated Discharge Date Admission Date: September 14, 2024 History of Present Illness Chief Complaint: Left hip pain Primary Care Provider: Mary James PA-C Yamilka Vega is a 49 year old female metastatic breast cancer on chronic opiate therapy due to cancer related pain who presents to the ER with left hip pain after falling on August 09. Initial outpatient hip XRs were negative but still having severe pain and unable to weight bear. She was admitted from August 20 to 2024 mostly having shoulder and knee pain at that time with recent diagnosis of left subacute pathological fracture of proximal fibula, possible nondisplaced fracture of distal left clavicle and new diagnosis of acute fractures of anterior 3rd and 4th ribs. She reports not walking much and currently cannot weight-bear on it so. Her current pain is 7/10 when not moving but 10/10 on any movement or weightbearing. She lives with her children and niece who is her caregiver. Allergies Allergy/AdvReac Type Severity Reaction Status Date / Time No Known Allergies Allergy Verified 09/13/24 20:51 Home Medications Medication Instructions Recorded Confirmed Type insulin aspart U-100 100 unit/mL 0 sliding scale dose subcut AC 06/25/23 09/13/24 History (3 mL) subcutaneous pen (Novolog FlexPen U-100 Insulin aspart) ondansetron 8 mg disintegrating 8 mg translingual BID PRN Nausea 06/25/23 09/13/24 History tablet And Vomiting insulin glargine 100 unit/mL (3 10 unit subcut BID 09/23/23 09/13/24 History mL) subcutaneous pen (Lantus Solostar U-100 Insulin) fentanyl 75 mcg/hr transdermal 1 patch transdermal Q72H 1 month 01/17/24 09/13/24 Rx patch #10 ea hydromorphone 8 mg tablet 8 mg PO TID PRN very severe bone 08/20/24 09/13/24 History (Dilaudid) mets related cancer pain metoclopramide HCl 10 mg tablet 10 mg PO .1-2X A DAY PRN n/v 08/20/24 09/13/24 History olanzapine 5 mg tablet (Zyprexa) 5 mg PO BID PRN n/v 08/20/24 09/13/24 History oxycodone 30 mg tablet 45 - 60 mg PO Q4H PRN Severe Pain 08/20/24 09/13/24 History (Scale Score 7-10) Past Med/Surg History Problem List (Updated 09/13/24 @ 23:29 by Rey Parnell DO) Anemia (Acute) Fall (Acute) Closed fracture of greater trochanter of left femur (Acute) Left hip pain Refractory nausea and vomiting Closed rib fracture (Acute) Uncontrolled pain (Acute) Breast cancer (Acute) Metastatic cancer (Acute) Myopathy Leg weakness, bilateral Insomnia Severe pain Palliative care by specialist (Acute) Therapeutic opioid-induced constipation (OIC) (Acute) Breast cancer metastasized to multiple sites (Acute) Anemia (Acute) Parainfluenza Weakness generalized (Chronic) Depression Breast cancer metastasized to bone (Chronic) Cancer related pain (Chronic) Arthritis Obesity Hypothyroidism Type II diabetes mellitus (Acute) Medical History DM type 2 (diabetes mellitus, type 2) Breast cancer metastasized to bone History of COVID-19 12/2020 + 12/2021 > residual taste dysfunction and feeling of need to clear throat Bilateral breast cancer Arthritis Liver spots "Mets from cancer" Depression with anxiety Peripheral neuropathy Heart palpitations R/t anxiety per patient History of small bowel obstruction Hx bowel obstruction Hypothyroidism No current meds Surgical History History of tubal ligation Port-A-Cath in place (04/30/22) Insertion Access Port left subclavian with Fluoroscopy(Left) - Chad Banuelos DO History of surgery Left Excisional Debridement of Buttock Wound Nausea and vomiting after administration of anesthetic agent "EXTREME" History of vascular access device PORT INSERTION/REMOVAL History of tooth extraction History of endometrial ablation History of bowel resection D/T BOWEL OBSTRUCTION History of lung surgery Left thoracoscopy with wedge resection left lower lobe Dr. Damico History of dilatation and curettage H/O hernia repair Hx of section x3 S/P lumpectomy, left breast LEFT ARM LIMB RESTRICTION Family History Mother , 77yo Diabetes Heart disease Aortic valve replacement Mitral valve calcifications UTI (urinary tract infection) Father , 62yo Diabetes Myocardial infarction Hypertension Stroke Brother Diabetes Myocardial infarction Cardiac stents Pacemaker Hypertension Sister No problems noted. Daughter No problems noted. Son No problems noted. Son No problems noted. Other No family history of adverse response to anesthesia Social History Smoking Status: Never smoker Second Hand Exposure: No; Do You Dip or Chew Tobacco: No; Hx Alcohol Use: No Hx Substance Use: Yes Last Used Substance: Unknown Last Used Substance Other:: used occasionally Substance Use Type Other:: Medical marijuana. 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 How many Children do You have: 3 Feels Safe at Home: Yes Diet: regular caffeine: No during the past year weight has: remained stable Assistive Devices: Walker and Wheelchair Review of Systems Review of Systems: All systems reviewed & are unremarkable except as noted in HPI & below Physical Exam Constitutional: well developed; + not well nourished and no acute distress Respiratory: normal respiratory effort, lungs clear to auscultation Cardiovascular: RRR, no murmur, no edema Vessels: posterior tibial pulses present and dorsalis pedis pulses present Musculoskeletal: pain on palpation of lateral left hip, PT/DP pulses b/l equal with normal sensation in toes Psychiatric: A+Ox3, euthymic affect Results & Data Results & Data Vital Signs (Past 12 Hours) Vital Signs Temp Pulse Pulse Resp BP BP Pulse Ox 09/13/24 23:00 87 16 120/73 100 09/13/24 22:19 85 09/13/24 21:17 09/13/24 21:17 92 H 16 140/85 100 09/13/24 20:21 36.8 C 109 H 18 110/76 98 O2 Del Method 09/13/24 23:00 Room Air 09/13/24 22:19 09/13/24 21:17 Room Air 09/13/24 21:17 Room Air 09/13/24 20:21 Room Air Laboratory Results Abnormal lab results 09/13/24 Range/Units 21:19 WBC 4.76 L (4.8-10.8) K/ul RBC 2.72 L (4.20-5.40) M/uL Hgb 8.2 L (12.0-16.0) g/dl Hct 23.1 L (37.0-47.0) % RDW Std Deviation 48.2 H (36.4-46.3) fL RDW Coeff of Joshua 15.6 H (11.5-14.5) % Lymph # (Auto) 1.10 L (1.20-3.40) K/uL Sodium 134 L (136-145) mmol/L BUN/Creatinine Ratio 23.3 H (10-20) Glucose 286 H (70-99(Fasting)) mg/dl Alkaline Phosphatase 150 H (34-104) U/L Albumin 3.3 L (3.4-5.0) gm/dl Diagnostic Findings CT Left Lower Extremity Without Intravenous Contrast CLINICAL HISTORY: pain, fall, cancer. TECHNIQUE: Axial computed tomography images of the left lower extremity without intravenous contrast. CTDI is 24.91 mGy and DLP is 1300.17 mGy-cm. Automated exposure control was utilized for the study. A dose lowering technique was utilized adhering to the principles of ALARA. COMPARISON: No relevant prior studies available. FINDINGS: Bones/joints: Diffuse extensive osseous metastatic disease throughout the included skeletal structures with near complete resorption of the posterior column of the acetabulum and near complete resorption of the base of the left femoral neck. There is a nondisplaced fracture involving the lateral aspect of the left greater trochanter, best appreciated on coronal reformatted imaging. No dislocation. Soft tissues: Unremarkable. IMPRESSION: Extensive osseous metastatic disease. There is a nondisplaced fracture involving the lateral aspect of the left greater trochanter, best appreciated on coronal reformatted imaging. The remaining osseous structures are intact; however, there is near complete resorption at the base of the left femoral neck. The patient is considered high risk for pathologic fracture. Medications Administered ER medications given: Dilaudid 1mg IV x2 Ondansetron 4mg IV Code Status & VTE Plan Code Status DNR/DNI per patient wishes, consistent with prior hospitalizations VTE Prophylaxis Plan VTE Prophylaxis will be ordered: Yes PG Care Time/CCT Total # of Minutes Spent Total Time Spent with Patient: Total time spent is greater than 50% in coordination of care (as documented) at patient's floor/unit and/or counseling patient: Coding Level of Care Code 99491 INT INP/OBS CARE 3/75MIN Diagnoses Closed fracture of greater trochanter of left femur S72.112A Fall W19.XXXA Anemia D64.9 Metastatic cancer C79.51 Area of secondary neoplastic involvement: bone Cancer related pain G89.3 (4) Metastatic cancer Area of secondary neoplastic involvement: bone Qualified Code(s): C79.51 - Secondary malignant neoplasm of bone
[2024-09-14] MEDS ORDERED: GLUCOSE 10 TAB/TUBE PO PRN (02:03)
[2024-09-14] MEDS ORDERED: CARBOHYDRATES FOR HYPOGLYCEMIA PO PRN (02:03)
[2024-09-14] MEDS ORDERED: NALOXONE HCL 0.4 MG/1 ML VIAL/CARP IV PRN (02:03)
[2024-09-14] MEDS ORDERED: GLUCAGON FOR INJ 1 MG VIAL SQ PRN (02:03)
[2024-09-14] MEDS ORDERED: GLUCOSE 40% GEL 15 GM TUBE PO PRN (02:03)
[2024-09-14] MEDS ORDERED: PHARMACY GLYCEMIC MGMT CONSULT PRN (02:03)
[2024-09-14] MEDS ORDERED: DEXTROSE 50% 50 ML SYRINGE IV PRN (02:03)
[2024-09-14] MEDS: LACTATED RINGER'S 1,000 ML IV SCH ×2 (02:13→13:03)
[2024-09-14] MEDS: HYDROmorphone INJ 2 MG/ML SYR/VIAL IV PRN ×4 (02:24→16:35)
[2024-09-14] MEDS: INSULIN ASPART PER UNIT CHARGE SC SCH ×2 (03:32→17:49)
[2024-09-14] MEDS: ONDANSETRON INJ 2 MG/ML 2 ML VIAL IV PRN (06:25)
[2024-09-14 07:52] LABS: Hematocrit (blood only) 23.9 % (37.0-47.0); Hemoglobin 8.4 g/dl (12.0-16.0); Mean Corpuscular Hemoglobin 30.0 pg (25.0-34.0); Mean Corpuscular Volume 85.4 fL (80.0-100.0); Platelet Count 159 K/uL (130-400); RDW Standard Deviation 48.7 fL (36.4-46.3); Red Blood Count 2.80 M/uL (4.20-5.40); White Blood Count 4.04 K/ul (4.8-10.8)
[2024-09-14] MEDS: LANTUS PER UNIT CHARGE SQ SCH (07:52)
[2024-09-14] MEDS: PROMETHAZINE 12.5 MG/50.5 ML BAG IV PRN (07:53)
[2024-09-14 08:12] LABS: Anion Gap 9.0 (3-11); Blood Urea Nitrogen 21.0 mg/dl (6-23); Calcium 10.3 mg/dl (8.6-10.3); Carbon Dioxide 27.0 mmol/L (21-32); Chloride 100.0 mmol/L (98-107); Creatinine Clr Calc Pharmacy 84.6 ml/min; Glucose 143.0 mg/dl (70-99(Fasting)); Potassium 3.8 mmol/L (3.5-5.1); Sodium 136.0 mmol/L (136-145)
[2024-09-14 08:35] LABS: Hemoglobin A1C 7.4 % (4.5-5.6)
--- NOTE | 2024-09-14 09:05 | Radiation OncologyConsultation ---
Date of Consultation September 14, 2024 Assessment & Plan (1) Breast cancer metastasized to multiple sites: Laterality: unspecified laterality Qualified Code(s): C50.919 - Malignant neoplasm of unspecified site of unspecified female breast Plan ATTENDING ADDENDUM Assessment: Ms. Vega is a 49-year-old female with a longstanding history of metastatic breast cancer. The patient has previously received palliative radiation therapy and most recently was treated to the right pelvis (2000 cGy, 5 fractions, 10/11/2023). The patient presented to the emergency room on 09/13/2024 with left leg pain. Imaging did reveal that the patient has extensive widespread metastatic disease involving the left femur with risk of pathologic fracture. Orthopedic surgery has evaluated the patient for potential ORIF for stabilization and is currently deciding on whether or not to proceed with the procedure. We have been asked to evaluate the patient regarding the role of palliative radiation therapy. Plan of care was also evaluated the patient. Treatment Options: 1. Surgical stabilization with or without adjuvant radiation therapy. 2. Palliative radiation therapy 3. Best supportive care Recommendation: Defer primary management to orthopedic surgery. Preferred option is surgical stabilization if orthopedic surgery feels that is reasonable and patient is agreeable. If surgical stabilization is not an option, palliative radiation therapy can be offered for pain control. Single fraction palliative radiation therapy would be offered for the patient. Best supportive care is also a reasonable option for the patient. Plan: 1. We will continue to monitor the patient's progress while in the hospital and evaluate and see the patient as needed. 2. Appreciate input from orthopedic surgery and palliative care. 3. Continue pain management as per primary medical team. 4. Patient and authorized individuals are encouraged to call us with any further questions or concerns. History of Present Illness Reason for Consultation: Bone metastasis with impending fracture Requesting Physician: Kevyn Eller MD Attending Physician: Kevyn Eller MD History of Present Illness 11/08/2015. Abnormal breast mammogram. 11/12/2015 status post ultrasound-guided biopsy of left and right breast masses. Left breast shows invasive ductal carcinoma grade 1. ER positive/NM positive and HER2/rupert negative. Right breast benign. 11/19/2015. Genetic testing negative. 11/25/2015. Status post right breast lumpectomy with sentinel lymph node biopsy. Stage pT2pN1. Status post systemic chemotherapy with Adriamycin and Cytoxan followed by Taxol. 07/15/2016. Status post completion of radiation therapy. She received 6640 cGy. 07/28/2016. Initiation of anastrozole and Zoladex. 09/10/2017. Follow-up mammography with suspicious area right breast. 10/15/2017. Biopsy reveals invasive ductal carcinoma, grade 1. ER positive NM positive HER2/rupert 1+. 11/10/2017. PET/CT. Finding of metastatic lytic and blastic lesions. 10/2017. Palbociclib and Faslodex. Xgeva. 03/08/2018. CT revealing progressive bony disease and new left lower lobe lung nodule. 03/29/2018. Left lower lobe lung resection. Chronic organizing pneumonia no evidence of malignancy. 10/17/2018. CT's and bone scan show bone metastasis and no visceral disease. 2019. Xgeva changed to every 3 months. 03/08/2020. CT abdomen pelvis. No evidence of progressive metastatic disease. 12/03/2020. Recheck CT showing no evidence of progressive metastatic disease. 06/04/2021. Extensive osteoblastic metastatic disease. 06/04/2021. CT chest abdomen and pelvis. Extensive osseous metastatic disease. Majority of metastatic foci are similar. Faint groundglass changes right middle lobe and within the central lower lobe. 10/07/2021. Bone scan. Slight increase in radiotracer uptake with multiple skeletal metastasis since bone scan of June 04, 2021. 10/30/2021. CT chest abdomen pelvis. Interval development of a healing right lateral sixth rib pathologic fracture. No significant change in extensive multifocal osteoblastic metastatic disease. This is most prominent at the level of T9 which demonstrates breakthrough at the posterior cortex of the vertebral body and a small amount of tumor extension into the epidural space. 11/07/2021. Lesvia Zapien performed a telehealth visit to review outcome of recent restaging procedures with CT scans of the chest abdomen and pelvis. He noted the patient has been on oxycodone 10 mg p.o. every 4-6 hours for skeletal pain. Patient was to continue on her current treatment scheme. However ultimately due to increasing pain radiation referral was made. 01/01/2022. Patient seen in radiation oncology for evaluation and discussion of the role of palliative radiation. 02/05/2022. Radiation therapy stopped. She received 9 of a planned 10 fractions to the thoracic spine. 2700 cGy. Patient missed multiple appointments and then stopped. 04/08/2022. Bone scan. IMPRESSION: Increase in degree of radiotracer uptake within known skeletal metastases with a few new small foci of radiotracer uptake. The findings favor progression of skeletal metastatic disease. Flare response related to treatment could appear similar although is considered less likely. 04/15/2022. Fulvestrant/palbociclib therapy discontinued 04/16/2022. Surgical consultation (Dr. Banuelos). Patient to have port placement. Following up on a wound of the buttock. 05/21/2022-07/01/2022. Weekly low-dose paclitaxel. 07/30/2022. CT of the abdomen. IMPRESSION: 1. Extensive osteoblastic metastatic disease. This is similar to the prior study. No acute fractures. 2. The visualized loops of bowel show no wall thickening or obstruction. 3. Splenomegaly, unchanged. 4. Small nodular densities the basal left lower lobe favor atelectasis, post radiation changes, or a low-grade pneumonitis. Metastatic disease is considered less likely. Attention at follow-up recommended to ensure resolution. 08/14/2022. Initiation of Xeloda 2 weeks on and 1 week off. She continues on denosumab every 3 months. Xeloda stopped after 2 cycles due to diarrhea. 08/20/2022. Left hip x-ray. IMPRESSION: 1. Again seen is multifocal osteoblastic metastatic disease. 2. There is no radiographic evidence of left femoral fracture. 08/26/2022. PET/CT. 1. Numerous FDG avid skeletal lesions consistent with metastatic disease. Overall, increase in extent of skeletal metastatic disease since PET/CT of November 10, 2017. Findings are stable to slightly increased since bone scan of April 08 2022 when allowing for differences in technique. 2. No visceral metastases. 3. Asymmetric enlargement of the right ovary with moderate FDG uptake. This is nonspecific and a pelvic ultrasound could be obtained for further evaluation. 4. Asymmetric radiotracer uptake within the right thyroid lobe likely corresponding to a thyroid nodule. A thyroid ultrasound could be obtained for further evaluation. 08/28/2022. Medical oncology follow-up (Dr. Newby). Continues on Xeloda. Receives denosumab every 3 months. 09/03/2022. Wound clinic. Treatment of right buttock wound. This is improving. 09/10/2022. Genetic testing with [employer]. Variants of uncertain clinical significance. 10/06/2022. Medical oncology follow-up. Continue current therapy. Refill pain medication. 10/14/2022. Medical oncology follow-up. Plan reduced dose of Xeloda. Patient is having rib pain. She is referred to radiation oncology. 11/16/2022. Chest CT. IMPRESSION: 1. Findings suggestive of mild progression of skeletal metastatic disease since PET/CT of August 26, 2022. 2. No thoracic lymphadenopathy. No suspicious pulmonary nodules. 11/16/2022. CT of abdomen and pelvis. IMPRESSION: 1. There is no evidence of progressive metastatic disease in the abdomen or pelvis. 2. Findings of extensive/diffuse multifocal osteoblastic metastatic disease have not appreciably changed as compared to 08/26/2022. 3. Splenomegaly. 4. Hepatomegaly and mild steatosis. 5. Trace nonspecific free fluid is seen in the cul-de-sac. 6. The bladder wall appears circumferentially thickened. Correlate with clinical findings and urinalysis. 11/27/2022. Medical oncology follow-up. Review of studies. Reduced dose of Xeloda recommended. 12/08/2022. Medical oncology note. Plan for monotherapy with gemcitabine. 12/10/2022. Cycle 1 day 1 of gemcitabine. 12/23/2022. Radiation oncology consultation. Referral due to acute rib pain. Patient stated she had rib pain 1 month ago. This was on the lateral right chest wall. She previously had rib pain on the left. And that resolved. She states currently she is not having pain in the ribs. She does have discomfort if she lays on the side. 12/24/2022. Cycle 1 day 8 of gemcitabine depending on liver function studies. She will continue on denosumab every 3 months. 01/20/2023. Status post completion of palliative radiation therapy to the right ribs. She receives 1600 cGy. 04/26/2023-07/12/2023. Eribulin. 07/07/2023. Emergency room evaluation for weakness and generalized pain. 07/07/2023. CT of the abdomen and pelvis. 1. Mixed lytic and blastic metastatic disease in the axial skeleton, more prominent than prior study from 01/07/23 2. Peripheral consolidation in the right lower lobe 08/02/2023. Hospital admission. Weakness. 08/02/2023. CT of the chest. 1. Peripheral subpleural consolidation throughout the right lung is likely infectious or inflammatory. 2. Trace pleural effusions. 3. No new or progressive lymphadenopathy. 08/17/2023. Medical oncology follow-up (Dr. Plascencia). Review of treatment. Endocrine refractory after zoladex/anastrozole >> fulvestrant/palbociclib >> exemestane/everolimus >> repeat fulvestrant/palbociclib Also with evolving injection site reactions to the fulvestrant Fulvestrant/palbociclib therapy discontinued as of 04/15/2022 Weekly low-dose paclitaxel x 7 doses 05/20/2022 - 07/01/2022, discontinued b/o excessive neurotoxicity Capecitabine start 08/14/2022 as 2500 mg (1000 mg/M2) po bid days 1-14 of a 21- day cycle Stopped after 2 cycles by the patient because of unacceptable diarrhea Gemcitabine started 12/10/2022 with "day 8" delayed until 12/24/2022 but ongoing significant nausea and vomiting in the interim since then Admitted 01/07/2023 with possible cholecystitis, chemotherapy regimen suspended [id number] did not identify other potential options for future treatment Continuing denosumab q 3 month, not clear we have additional interventions for the spontaneous rib fractures though I will ask radiation oncology to review 08/17/2023. ER evaluation. Needs brain MRI and bone scan. 08/17/2023. CT of the right hip. 1. Extensive osteolytic skeletal metastasis redemonstrated, which appear overall stable to slightly progressed from the 07/07/2023 exam. Lesion with cortical destruction within the femoral neck is redemonstrated without acute pathologic fracture identified. 2. Mild likely acute or subacute nondisplaced pathologic inferior sacral fracture. 08/17/2023. X-ray right hip. No evidence of acute osseous injury. 08/18/2023. MRI of the brain. No intracranial metastasis. There are multiple enhancing calvarial lesions compatible with bony metastasis. 08/19/2023. Bone scan. Extensive skeletal metastasis redemonstrated, progressed compared to prior bone scan dated 04/08/2022. 08/24/2023. Caris testing. No pathologic tumor derived somatic variants detected. 08/27/2023. Hospital discharge. Has been admitted for weakness. Patient found to have sacral fracture. 09/13/2023. Medical oncology follow-up. Resume treatment with Eribulin. Referral to radiation oncology. Continue follow-up with palliative care. 09/23/2023. Radiation oncology follow-up (Dr. He). Patient has had ongoing pain of the pelvis. This is especially in the right hip. This radiates across the lower back. She denies radiation down the leg. Pain radiates to the sacrum. Her right leg is weaker than the left. She is now ready in the wheelchair because she is afraid of falling. She is receiving physical therapy. Today she has a pain level of 5 out of 10. She does see palliative care. She is on a fentanyl patch 25 mcg/h change every 72 hours. She has Dilaudid 8 mg 3 times daily as needed. She also has oxycodone 20 mg every 4 hours as needed. 10/11/2023. Status post completion of palliative radiation therapy to the right femur. She received 2000 cGy completed in 5 fractions. 10/18/2023. Restart Eribulin. 08/17/2024. Medical oncology follow-up. Patient continues on eribulin. Receives on days 1, 8 and 21. Has been having left fibula discomfort. X-rays revealed left fibula fracture. Referred to orthopedics. 09/13/2024. Patient presented to the emergency room with pain of the left hip. She states she had fallen on August 09. She was evaluated at that time. She stated there was a shoulder dislocation and rib fractures. She also has a history of a fracture of the fibula. Her pain level is a 10 out of 10. Pain radiates from the hip to the thigh. 09/13/2024. CT of left femur. Extensive osseous metastatic disease. There is a nondisplaced fracture involving the lateral aspect of the left greater trochanter, best appreciated on coronal reformatted imaging. The remaining osseous structures are intact; however, there is near complete resorption at the base of the left femoral neck. The patient is considered high risk for pathologic fracture. 09/14/2024. Radiation oncology consultation. Patient has been admitted and found to have pathologic fracture of the greater trochanter on the left. Since admitted she has been given Dilaudid. She does feel improved in regards to her pain status. On admission her pain was 10 out of 10. Pain radiated from the hip to the thigh. She has had some nausea and intermittent vomiting. She has had ongoing constipation with being on the narcotics. Pain is managed through palliative care. Our office was consulted to evaluate for radiation therapy. Allergies Allergy/AdvReac Type Severity Reaction Status Date / Time No Known Allergies Allergy Verified 09/13/24 20:51 Home Medications Medication Instructions Recorded Confirmed Type insulin aspart U-100 100 unit/mL 0 sliding scale dose subcut AC 06/25/23 09/13/24 History (3 mL) subcutaneous pen (Novolog FlexPen U-100 Insulin aspart) ondansetron 8 mg disintegrating 8 mg translingual BID PRN Nausea 06/25/23 09/13/24 History tablet And Vomiting insulin glargine 100 unit/mL (3 10 unit subcut BID 09/23/23 09/13/24 History mL) subcutaneous pen (Lantus Solostar U-100 Insulin) fentanyl 75 mcg/hr transdermal 1 patch transdermal Q72H 1 month 01/17/24 09/13/24 Rx patch #10 ea hydromorphone 8 mg tablet 8 mg PO TID PRN very severe bone 08/20/24 09/13/24 History (Dilaudid) mets related cancer pain metoclopramide HCl 10 mg tablet 10 mg PO .1-2X A DAY PRN n/v 08/20/24 09/13/24 History olanzapine 5 mg tablet (Zyprexa) 5 mg PO BID PRN n/v 08/20/24 09/13/24 History oxycodone 30 mg tablet 45 - 60 mg PO Q4H PRN Severe Pain 08/20/24 09/13/24 History (Scale Score 7-10) Patient History Medical History DM type 2 (diabetes mellitus, type 2) Breast cancer metastasized to bone History of COVID-19 12/2020 + 12/2021 > residual taste dysfunction and feeling of need to clear throat Bilateral breast cancer Arthritis Liver spots "Mets from cancer" Depression with anxiety Peripheral neuropathy Heart palpitations R/t anxiety per patient History of small bowel obstruction Hx bowel obstruction Hypothyroidism No current meds Surgical History History of tubal ligation Port-A-Cath in place (04/30/22) Insertion Access Port left subclavian with Fluoroscopy(Left) - Chad Banuelos DO History of surgery Left Excisional Debridement of Buttock Wound Nausea and vomiting after administration of anesthetic agent "EXTREME" History of vascular access device PORT INSERTION/REMOVAL History of tooth extraction History of endometrial ablation History of bowel resection D/T BOWEL OBSTRUCTION History of lung surgery Left thoracoscopy with wedge resection left lower lobe Dr. Damico 03/29/2018 History of dilatation and curettage H/O hernia repair Hx of section x3 S/P lumpectomy, left breast LEFT ARM LIMB RESTRICTION Family History Mother , 77yo Diabetes Heart disease Aortic valve replacement Mitral valve calcifications UTI (urinary tract infection) Father , 62yo Diabetes Myocardial infarction Hypertension Stroke Brother Diabetes Myocardial infarction Cardiac stents Pacemaker Hypertension Sister No problems noted. Daughter No problems noted. Son No problems noted. Son No problems noted. Other No family history of adverse response to anesthesia Social History Smoking Status: Never smoker Second Hand Exposure: No; Do You Dip or Chew Tobacco: No; Hx Alcohol Use: No Hx Substance Use: Yes Last Used Substance: Unknown Last Used Substance Other:: used occasionally Substance Use Type Other:: Medical marijuana. 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 Breast cancer. 2021. Metastatic breast cancer. Treatment: 07/15/2016. Status post completion of radiation therapy. She received 6640 cGy. Endocrine refractory after zoladex/anastrozole >> fulvestrant/palbociclib >> exemestane/everolimus >> repeat fulvestrant/palbociclib Also with evolving injection site reactions to the fulvestrant 02/05/2022. Radiation therapy stopped. She received 9 of a planned 10 fractions. 2700 cGy. Patient missed multiple appointments and then stopped. Fulvestrant/palbociclib therapy discontinued as of 04/15/2022 Weekly low-dose paclitaxel x 7 doses 05/20/2022 - 07/01/2022, discontinued b/o excessive neurotoxicity Capecitabine start 08/14/2022 as 2500 mg (1000 mg/M2) po bid days 1-14 of a 21- day cycle Stopped after 2 cycles by the patient because of unacceptable diarrhea Gemcitabine started 12/10/2022 with "day 8" delayed until 12/24/2022 but ongoing significant nausea and vomiting in the interim since 01/20/2023. Patient stopped radiation therapy. She had received 4 of 5 fractions. She received 1600 cGy. Treatment given to the right ribs. 04/26/2023-07/12/2023. Eribulin. 09/13/2023. Plans to restart Erbulin. 10/11/2023. Status post completion of radiation therapy to the right femur. She received 2000 cGy. Treatment given in 5 fractions. 10/18/2023. Restart Eribulin. Review of Systems Review of Systems: 13 point review of system is negative ot her than what is mentioned in the history of present illness. She does have a mild headache. She relates this to the nausea and vomiting. Physical Exam Physical Exam: Patient is currently lying comfortably. Increased pain with movement. Constitutional: WD/WN, vitals as above Eyes: PERRL, conjunctivae normal, anicteric sclerae ENMT: Ears: no hearing impairment Neck: trachea midline, no thyromegaly Respiratory: normal respiratory effort, lungs clear to auscultation Cardiovascular: RRR, no murmur, no edema Gastrointestinal (Abdomen): normal bowel sounds, soft, nontender, no hepatosplenomegaly Musculoskeletal: Patient has noted pain of left hip region. Skin: no rashes, warm and dry Neurologic: Equal strength and coordination of upper and lower extremities. Psychiatric: A+Ox3, euthymic affect Results (Rad Onc) Imaging Studies: were reviewed and pertinent findings noted in HPI Time Spent Midlevel I spent [15] minutes in preparation for this follow up evaluation including reviewing all the clinical records, reviewing laboratory studies, pathology reports and imaging results. I spent [20] minutes with direct face to face interaction with the patient and/or family including performing a physical exam and answering all questions. I spent [15] minutes documenting this patient's visit. Attending I spent 10 minutes in preparation for this follow up evaluation including reviewing all the clinical records, reviewing laboratory studies, pathology reports and imaging results. I spent 10 minutes with direct face to face interaction with the patient and/or family including performing a physical exam and answering all questions. I spent 10 minutes documenting this patient's visit. PG Care Time/CCT Total # of Minutes Spent Total Time Spent with Patient: Total time spent is greater than 50% in coordination of care (as documented) at patient's floor/unit and/or counseling patient: C[place] [address] IN/OBS CONSULT LVL 4,60M Patient Type Established History Problem Focused Exam Problem Focused Medical Decision Making Low Complexity Diagnoses Breast cancer metastasized to multiple sites C50.919 Laterality: unspecified laterality
--- NOTE | 2024-09-14 09:31 | Orthopedic Consultation ---
Date of Service September 14, 2024 Assessment & Plan (1) Closed fracture of greater trochanter of left femur: * Case/imaging reviewed and discussed with Dr Boo * Specifically regarding greater trochanter fracture, recommend closed management. However given extent of bony metastases prophylactic fixation of femur to be considered. See below * Disposition: TBD * Daily treatment: Physical Therapy/ Occupational Therapy per protocol * Weight bearing status: NWB LLE (2) Breast cancer metastasized to bone: * Case/imaging reviewed and discussed with Ronald Cole, Ramin * Mirel's Score >8, prophylactic fixation recommended * Skeletal survey pending * Ongoing discussion for in-house Proflex fixation versus transfer to [facility] for orthopedic oncology care * Recommend NWB LLE at this time due to possible impending fracture * Will continue to follow closely with recommendations * Currently NPO, would maintain for now for possible fixation, will update as able * Update * Discussed with Dr Faustin, patient, and Palliative Care. Patient would like to proceed with prophylacitc fixation * Still NPO, will plan for OR today * Consent obtained History of Present Illness Reason for Consultation: Left hip pain, pathologic greater trochanter fracture, metastatic lesions throughout left femur Requesting Physician: . Attending Physician: Kevyn Eller MD .Patient is a 49y/o female with left hip pain. PMH including breast cancer with bony metastases, hypothyroidism, DM2, depression with anxiety, peripheral neuropathy. Patient is known to orthopedic team, evaluated 08/18/2024 for left proximal fibular fracture, left clavicle fracture, right knee pain. Referral had been placed to Ortho oncology through [facility] however she has yet to establish care with them. Now presents to hospital with left hip pain. Patient reports she had a fall approximately 1 month ago, states she was ambulating when her right leg about causing her to fall landing her left hip. Initially had mild to moderate pain of the left hip that was tolerable and she was able to ambulate, however the last 2 to 3 days pain has become significantly worse causing her to avoid ambulation, also reports pain of the left hip and femur at rest. Current workup including []. Orthopedics consulted for management recommendations. At time of exam patient lying in bed, no acute distress. Tired appearance. Reports moderate pain of the left hip and thigh that increases with attempted movement or weightbearing. Tingling in hands and feet consistent with baseline neuropathy, no change in the symptoms. Uses a walker at baseline. Allergies Allergy/AdvReac Type Severity Reaction Status Date / Time No Known Allergies Allergy Verified 09/13/24 20:51 Home Medications Medication Instructions Recorded Confirmed Type insulin aspart U-100 100 unit/mL 0 sliding scale dose subcut AC 06/25/23 09/13/24 History (3 mL) subcutaneous pen (Novolog FlexPen U-100 Insulin aspart) ondansetron 8 mg disintegrating 8 mg translingual BID PRN Nausea 06/25/23 09/13/24 History tablet And Vomiting insulin glargine 100 unit/mL (3 10 unit subcut BID 09/23/23 09/13/24 History mL) subcutaneous pen (Lantus Solostar U-100 Insulin) fentanyl 75 mcg/hr transdermal 1 patch transdermal Q72H 1 month 01/17/24 09/13/24 Rx patch #10 ea hydromorphone 8 mg tablet 8 mg PO TID PRN very severe bone 08/20/24 09/13/24 History (Dilaudid) mets related cancer pain metoclopramide HCl 10 mg tablet 10 mg PO .1-2X A DAY PRN n/v 08/20/24 09/13/24 History olanzapine 5 mg tablet (Zyprexa) 5 mg PO BID PRN n/v 08/20/24 09/13/24 History oxycodone 30 mg tablet 45 - 60 mg PO Q4H PRN Severe Pain 08/20/24 09/13/24 History (Scale Score 7-10) Past Med/Surg History Problem List (Updated 09/13/24 @ 23:29 by Rey Parnell DO) Anemia (Acute) Fall (Acute) Closed fracture of greater trochanter of left femur (Acute) Left hip pain Refractory nausea and vomiting Closed rib fracture (Acute) Uncontrolled pain (Acute) Breast cancer (Acute) Metastatic cancer (Acute) Myopathy Leg weakness, bilateral Insomnia Severe pain Palliative care by specialist (Acute) Therapeutic opioid-induced constipation (OIC) (Acute) Breast cancer metastasized to multiple sites (Acute) Anemia (Acute) Parainfluenza Weakness generalized (Chronic) Depression Breast cancer metastasized to bone (Chronic) Cancer related pain (Chronic) Arthritis Obesity Hypothyroidism Type II diabetes mellitus (Acute) Medical History DM type 2 (diabetes mellitus, type 2) Breast cancer metastasized to bone History of COVID-19 12/2020 + 12/2021 > residual taste dysfunction and feeling of need to clear throat Bilateral breast cancer Arthritis Liver spots "Mets from cancer" Depression with anxiety Peripheral neuropathy Heart palpitations R/t anxiety per patient History of small bowel obstruction Hx bowel obstruction Hypothyroidism No current meds Surgical History History of tubal ligation Port-A-Cath in place (04/30/22) Insertion Access Port left subclavian with Fluoroscopy(Left) - Chad Banuelos DO History of surgery Left Excisional Debridement of Buttock Wound Nausea and vomiting after administration of anesthetic agent "EXTREME" History of vascular access device PORT INSERTION/REMOVAL History of tooth extraction History of endometrial ablation History of bowel resection D/T BOWEL OBSTRUCTION History of lung surgery Left thoracoscopy with wedge resection left lower lobe Dr. Damico 03/02 History of dilatation and curettage H/O hernia repair Hx of section x3 S/P lumpectomy, left breast LEFT ARM LIMB RESTRICTION Family History Mother , 77yo Diabetes Heart disease Aortic valve replacement Mitral valve calcifications UTI (urinary tract infection) Father , 62yo Diabetes Myocardial infarction Hypertension Stroke Brother Diabetes Myocardial infarction Cardiac stents Pacemaker Hypertension Sister No problems noted. Daughter No problems noted. Son No problems noted. Son No problems noted. Other No family history of adverse response to anesthesia Social History Smoking Status: Never smoker Second Hand Exposure: No; Do You Dip or Chew Tobacco: No; Hx Alcohol Use: No Hx Substance Use: Yes Last Used Substance: Unknown Last Used Substance Other:: used occasionally Substance Use Type Other:: Medical marijuana. 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 Physical Exam . * General: Alert and oriented, no acute distress * Constitutional: well-developed, well-nourished. * Respiratory: Normal respiratory effort, no distress * Gastrointestinal: No tenderness to palpation, no rigidity or guarding. * Skin: No rash or lesion. * Neurologic: Grossly normal * Musculoskeletal: Left lower extremity with no overlying skin changes or obvious deformity. Point tenderness with direct palpation to greater trochanter. Otherwise no specific tenderness of the proximal thigh, distal thigh, knee, lower leg, foot/ankle. Mild pain with logroll, hip flexion, internal/external rotation. AROM for/ankle intact. Sensation intact plantar/dorsal foot brisk capillary refill. Results & Data Results & Data Laboratory Results . 09/14/24 09/14/24 09/14/24 07:32 06:20 03:28 WBC 4.04 L RBC 2.80 L Hgb 8.4 L Hct 23.9 L MCV 85.4 MCH 30.0 MCHC 35.1 RDW Std Deviation 48.7 H RDW Coeff of Joshua 15.8 H Plt Count 159 MPV 8.9 L Immature Gran % (Auto) Neut % (Auto) Lymph % (Auto) [place] % (Auto) Eos % (Auto) Baso % (Auto) Neut # (Auto) Lymph # (Auto) [facility] # (Auto) Eos # (Auto) Baso # (Auto) Immature Gran # (Auto) Sodium 136 Potassium 3.8 Chloride 100 Carbon Dioxide 27 Anion Gap 9 BUN 21 Creatinine 0.92 Est Cr Clr Drug Dosing 84.6 eGFR 77.29 BUN/Creatinine Ratio 22.8 H Glucose 143 H POC Glucose 165 H 193 H Estimat Average Glucose 166 Hemoglobin A1c 7.4 H Calcium 10.3 Total Bilirubin AST ALT Alkaline Phosphatase Total Protein Albumin Globulin Albumin/Globulin Ratio Lipase 09/13/24 21:19 WBC 4.76 L RBC 2.72 L Hgb 8.2 L Hct 23.1 L MCV 84.9 MCH 30.1 MCHC 35.5 RDW Std Deviation 48.2 H RDW Coeff of Joshua 15.6 H Plt Count 158 MPV 9.7 Immature Gran % (Auto) 1.5 Neut % (Auto) 69.8 Lymph % (Auto) 23.1 [facility] % (Auto) 4.0 Eos % (Auto) 0.8 Baso % (Auto) 0.8 Neut # (Auto) 3.32 Lymph # (Auto) 1.[address] [place] # (Auto) 0.19 Eos # (Auto) 0.04 Baso # (Auto) 0.04 Immature Gran # (Auto) 0.07 Sodium 134 L Potassium 3.8 Chloride 101 Carbon Dioxide 25 Anion Gap 8 BUN 21 Creatinine 0.90 Est Cr Clr Drug Dosing 86.3 eGFR 79.35 BUN/Creatinine Ratio 23.3 H Glucose 286 H POC Glucose Estimat Average Glucose Hemoglobin A1c Calcium 9.5 Total Bilirubin 0.5 AST 20 ALT 13 Alkaline Phosphatase 150 H Total Protein 6.4 Albumin 3.3 L Globulin 3.1 Albumin/Globulin Ratio 1.1 Lipase 13 Diagnostic Findings . Femur CT 09/13/24 20:45 Exam(s): CT EXTREMITY LEFT LOWER Without Contrast EXAM: CT Left Lower Extremity Without Intravenous Contrast CLINICAL HISTORY: pain, fall, cancer. TECHNIQUE: Axial computed tomography images of the left lower extremity without intravenous contrast. CTDI is 24.91 mGy and DLP is 1300.17 mGy-cm. Automated exposure control was utilized for the study. A dose lowering technique was utilized adhering to the principles of ALARA. COMPARISON: No relevant prior studies available. FINDINGS: Bones/joints: Diffuse extensive osseous metastatic disease throughout the included skeletal structures with near complete resorption of the posterior column of the acetabulum and near complete resorption of the base of the left femoral neck. There is a nondisplaced fracture involving the lateral aspect of the left greater trochanter, best appreciated on coronal reformatted imaging. No dislocation. Soft tissues: Unremarkable. IMPRESSION: Extensive osseous metastatic disease. There is a nondisplaced fracture involving the lateral aspect of the left greater trochanter, best appreciated on coronal reformatted imaging. The remaining osseous structures are intact; however, there is near complete resorption at the base of the left femoral neck. The patient is considered high risk for pathologic fracture. Electronically signed by: Jeovany Ramirez MD 09/13/24 23:02 PM PG Care Time/CCT Total # of Minutes Spent Total Time Spent with Patient: Total time spent is greater than 50% in coordination of care (as documented) at patient's floor/unit and/or counseling patient: Coding [place] [id number] IN/OBS CONSULT LVL 5,80M Patient Type Established Medical Decision Making High Complexity Diagnoses Closed fracture of greater trochanter of left femur S72.112A Carcinoma of breast metastatic to bone, unspecified laterality C50.919; C79.51 Laterality: unspecified laterality (2) Breast cancer metastasized to bone Laterality: unspecified laterality Qualified Code(s): C50.919 - Malignant neoplasm of unspecified site of unspecified female breast; C79.51 - Secondary malignant neoplasm of bone
--- NOTE | 2024-09-14 09:33 | Palliative Care Consultation ---
Date of Consultation September 14, 2024 Assessment & Plan (1) Palliative care by specialist: Met with pt at bedside, no visitors present Introduced Palliative Medicine and explained our role in advanced care planning, symptom management and navigation through the progression of life limiting d isease. Patient and/or family were receptive to palliative services for goals of care discussions. Reviewed we are different from hospice, a home health nurse visiting service. Patient currently exhibits decisional capacity based on the ability to convey understanding of personal PMHx, current medical condition, treatment options nor the risks / benefits/ potential outcomes of accepting/declining those options, and ability to make decisions based on such knowledge. Hospital does not have written documentation of patient wishes concerning her chosen proxy for medical decisions. Per PA [id number], in absence of written documentation of patient wishes, pt's proxy for medical decisions would be her spouse. Pt does not currently require a proxy for medical decisions. (2) Uncontrolled pain: Pt in acute pain crisis on admission, states pain is currently well managed with combination of duragesic and dilaudid. However, she further qualified pain as "not too bad as long as I do not move" we discussed goals of pain management are to relive discomfort so that she is comfortable enough to be active and importance of activity to optimize health and mobility post operatively. She shared that he pain is under control currently, but she has not slept and is exhausted. She is currently denies any nausea with dilaudid dosing (history of poor tolerance of both dilaudid and morphine due to N/V). Will continue current analgesic regime, encouraged pt to report pain as it approached moderate level and request PRN medications accordingly. Discussed her impending surgery and plan to reassess her analgesia requirements post operatively to assure consistent pain control. Pt in agreement. Continue: Hydromorphone 4 mg IV Q3H PRN Fentanyl (Fentanyl 75 Mcg/Hr Tdsy) 1 patch TD Q72H JESSE (3) Therapeutic opioid-induced constipation (OIC): not currently an issue. Continue miralax/senna as preventative Plan as above History of Present Illness Reason for Consultation: pain mgmt/goals of care Requesting Physician: Kevyn Eller MD Attending Physician: Kevyn Eller MD History of Present Illness Yamilka Vega is a 49 year old female metastatic breast cancer on chronic opiate therapy due to cancer related pain who presents to the ER with left hip pain after falling on August 09. Initial outpatient hip XRs were negative but still having severe pain and unable to weight bear. She was admitted from August 20 to 2024 mostly having shoulder and knee pain at that time with recent diagnosis of left subacute pathological fracture of proximal fibula, possible nondisplaced fracture of distal left clavicle and new diagnosis of acute fractures of anterior 3rd and 4th ribs. She reports not walking much and currently cannot weight-bear on it. Allergies Allergy/AdvReac Type Severity Reaction Status Date / Time No Known Allergies Allergy Verified 09/13/24 20:51 Home Medications Medication Instructions Recorded Confirmed Type insulin aspart U-100 100 unit/mL 0 sliding scale dose subcut AC 06/25/23 09/13/24 History (3 mL) subcutaneous pen (Novolog FlexPen U-100 Insulin aspart) ondansetron 8 mg disintegrating 8 mg translingual BID PRN Nausea 06/25/23 09/13/24 History tablet And Vomiting insulin glargine 100 unit/mL (3 10 unit subcut BID 09/23/23 09/13/24 History mL) subcutaneous pen (Lantus Solostar U-100 Insulin) fentanyl 75 mcg/hr transdermal 1 patch transdermal Q72H 1 month 01/17/24 09/13/24 Rx patch #10 ea hydromorphone 8 mg tablet 8 mg PO TID PRN very severe bone 08/20/24 09/13/24 History (Dilaudid) mets related cancer pain metoclopramide HCl 10 mg tablet 10 mg PO .1-2X A DAY PRN n/v 08/20/24 09/13/24 History olanzapine 5 mg tablet (Zyprexa) 5 mg PO BID PRN n/v 08/20/24 09/13/24 History oxycodone 30 mg tablet 45 - 60 mg PO Q4H PRN Severe Pain 08/20/24 09/13/24 History (Scale Score 7-10) Patient History Medical History DM type 2 (diabetes mellitus, type 2) Breast cancer metastasized to bone History of COVID-19 12/2020 + 12/2021 > residual taste dysfunction and feeling of need to clear throat Bilateral breast cancer Arthritis Liver spots "Mets from cancer" Depression with anxiety Peripheral neuropathy Heart palpitations R/t anxiety per patient History of small bowel obstruction Hx bowel obstruction Hypothyroidism No current meds Surgical History History of tubal ligation Port-A-Cath in place (04/30/22) Insertion Access Port left subclavian with Fluoroscopy(Left) - Chad vigil DO History of surgery Left Excisional Debridement of Buttock Wound Nausea and vomiting after administration of anesthetic agent "EXTREME" History of vascular access device PORT INSERTION/REMOVAL History of tooth extraction History of endometrial ablation History of bowel resection D/T BOWEL OBSTRUCTION History of lung surgery Left thoracoscopy with wedge resection left lower lobe Dr. Damico 03/29/2018 History of dilatation and curettage H/O hernia repair Hx of section x3 S/P lumpectomy, left breast LEFT ARM LIMB RESTRICTION Family History Mother , 77yo Diabetes Heart disease Aortic valve replacement Mitral valve calcifications UTI (urinary tract infection) Father , 62yo Diabetes Myocardial infarction Hypertension Stroke Brother Diabetes Myocardial infarction Cardiac stents Pacemaker Hypertension Sister No problems noted. Daughter No problems noted. Son No problems noted. Son No problems noted. Other No family history of adverse response to anesthesia Social History Smoking Status: Never smoker Second Hand Exposure: No; Do You Dip or Chew Tobacco: No; Hx Alcohol Use: No Hx Substance Use: Yes Last Used Substance: Unknown Last Used Substance Other:: used occasionally Substance Use Type Other:: Medical marijuana. 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 How many Children do You have: 3 Other Information That Helps Us Care for You: No Feels Safe at Home: Yes Safety Concerns: Feels Safe At This Time Diet: regular caffeine: No during the past year weight has: remained stable Assistive Devices: Walker and Wheelchair Review of Systems Review of Systems: All systems reviewed & are unremarkable except as noted in HPI & below Physical Exam Constitutional: + ill appearing, + frail appearing, coop erative and comfortable bitemp wasting, chemo related alopecia Eyes: PERRL, conjunctivae normal, anicteric sclerae ENMT: external ear and nose normal, oropharynx normal Neck: trachea midline, no thyromegaly Cardiovascular: RRR, no murmur, no edema Gastrointestinal (Abdomen): normal bowel sounds, soft, nontender, no hepatosplenomegaly Musculoskeletal: generalized weakness, R hip tenderness Skin: + turgor decreased and + pallor Neurologic: PERRL, EOMI, accommodation nl, no face palsy, no dysarthria Psychiatric: Orientation: oriented x 3 Affect: + flat affect Results & Data Vital Signs (Past 12 Hours) Vital Signs Temp Pulse Pulse Resp BP Pulse Ox O2 Del Method 09/14/24 07:50 36.8 C 84 16 104/70 99 Room Air 09/14/24 02:30 Room Air 09/14/24 02:30 36.7 C 93 H 18 103/68 100 Room Air 09/14/24 01:30 Room Air 09/14/24 01:00 87 14 95/63 L 100 Room Air 09/13/24 23:00 87 16 120/73 100 Room Air 09/13/24 22:19 85 Laboratory Results Abnormal lab results 09/13/24 09/14/24 09/14/24 Range/Units 21:19 03:28 06:20 WBC 4.76 L (4.8-10.8) K/ul RBC 2.72 L (4.20-5.40) M/uL Hgb 8.2 L (12.0-16.0) g/dl Hct 23.1 L (37.0-47.0) % RDW Std Deviation 48.2 H (36.4-46.3) fL RDW Coeff of Joshua 15.6 H (11.5-14.5) % MPV (9.4-12.4) fL Lymph # (Auto) 1.10 L (1.20-3.40) K/uL Sodium 134 L (136-145) mmol/L BUN/Creatinine Ratio 23.3 H (10-20) Glucose 286 H (70-99(Fasting)) mg/dl POC Glucose 193 H 165 H (70-99) mg/dl Hemoglobin A1c (4.5-5.6) % Alkaline Phosphatase 150 H (34-104) U/L Albumin 3.3 L (3.4-5.0) gm/dl 09/14/24 09/14/24 Range/Units 07:32 12:35 WBC 4.04 L (4.8-10.8) K/ul RBC 2.80 L (4.20-5.40) M/uL Hgb 8.4 L (12.0-16.0) g/dl Hct 23.9 L (37.0-47.0) % RDW Std Deviation 48.7 H (36.4-46.3) fL RDW Coeff of Joshua 15.8 H (11.5-14.5) % MPV 8.9 L (9.4-12.4) fL Lymph # (Auto) (1.20-3.40) K/uL Sodium (136-145) mmol/L BUN/Creatinine Ratio 22.8 H (10-20) Glucose 143 H (70-99(Fasting)) mg/dl POC Glucose 163 H (70-99) mg/dl Hemoglobin A1c 7.4 H (4.5-5.6) % Alkaline Phosphatase (34-104) U/L Albumin (3.4-5.0) gm/dl Diagnostic Findings Femur CT 09/13/24 20:45 Exam(s): CT EXTREMITY LEFT LOWER Without Contrast EXAM: CT Left Lower Extremity Without Intravenous Contrast CLINICAL HISTORY: pain, fall, cancer. TECHNIQUE: Axial computed tomography images of the left lower extremity without intravenous contrast. CTDI is 24.91 mGy and DLP is 1300.17 mGy-cm. Automated exposure control was utilized for the study. A dose lowering technique was utilized adhering to the principles of ALARA. COMPARISON: No relevant prior studies available. FINDINGS: Bones/joints: Diffuse extensive osseous metastatic disease throughout the included skeletal structures with near complete resorption of the posterior column of the acetabulum and near complete resorption of the base of the left femoral neck. There is a nondisplaced fracture involving the lateral aspect of the left greater trochanter, best appreciated on coronal reformatted imaging. No dislocation. Soft tissues: Unremarkable. IMPRESSION: Extensive osseous metastatic disease. There is a nondisplaced fracture involving the lateral aspect of the left greater trochanter, best appreciated on coronal reformatted imaging. The remaining osseous structures are intact; however, there is near complete resorption at the base of the left femoral neck. The patient is considered high risk for pathologic fracture. Electronically signed by: Jeovany Ramirez MD 09/13/24 23:02 PM Skeletal Survey 09/14/24 08:25 SKELETAL SURVEY CLINICAL HISTORY: Breast cancer. Metastatic bone disease. COMPARISON STUDY: Nuclear bone scan dated 08/14/2024. CT scan of the chest, abdomen, and pelvis dated 08/14/2024. CT scan of the left femur dated 09/13/2024. FINDINGS: 18 radiographs from a skeletal survey are presented as part of a skeletal survey. Again seen are findings of extensive/diffuse mixed lytic/blastic bony metastatic disease. This has not appreciably changed from the recent nuclear bone scan and staging CT scans. There are numerous chronic/healed bilateral rib fractures. There is also a subacute/healing pathologic fracture of the manubrium. A large and predominantly lytic lesion in the right humeral shaft may place the patient risk for additional pathologic fracture. Fracture through the greater trochanter of the left proximal femur is again noted. Extensive lytic disease in the left proximal femur may place the patient risk for additional pathologic fracture. No significant spinal compression fracture is identified by x-ray. A left subclavian central venous infusion port is in place. The patient is edentulous. Cholecystectomy clips are noted in the right upper quadrant. Mesh material and additional clips project over the pelvis. Foci of parenchymal scarring are noted in both lungs. No airspace consolidation or pleural effusion identified. There is no bowel obstruction. IMPRESSION: 1. Extensive mixed lytic/blastic bony metastatic disease is similar in appearance to recent prior studies. 2. Fracture is again seen through the greater trochanter of the left proximal femur. 3. There is a subacute/healing pathologic fracture of the manubrium. 4. Note that the degree of lytic metastatic disease place the patient risk for additional pathologic fractures. This appears greatest in the mid right humeral shaft and the left proximal femur. Electronically signed by: Brant Evans M.D. 09/14/2024 11:00 AM Medications Administered Current Inpatient Medications Atropine Sulfate (Atropine Sulfate 0.1 Mg/Ml 10ml Syr) 0.5 mg IV Q1M PRN PRN Reason: PACU Use-HR<40 &/or Bradycardi Stop: 09/14/24 21:12 Dextrose (Dextrose 50% 50 Ml Syringe) 25 - 50 ml IV UD PRN; Protocol PRN Reason: Hypoglycemia Protocol Stop: 10/14/24 02:02 Enoxaparin Sodium (Enoxaparin Inj 40 Mg/0.4 Ml Syr) 40 mg SQ QPM JESSE Stop: 10/14/24 20:59 Ephedrine Sulfate (Ephedrine Sulfate 50 Mg/Ml Amp) 5 mg IV Q5M PRN PRN Reason: PACU Use Only-SBP<90 mmHg Stop: 09/14/24 21:12 Fentanyl (Fentanyl 75 Mcg/Hr Tdsy) 1 patch TD Q72H JESSE Stop: 09/30/24 08:59 Fentanyl Citrate (Fentanyl Citrate Pf 100 Mcg/2 Ml Vial) 25 mcg IV Q5M PRN PRN Reason: PACU Use Only-Pain Stop: 09/14/24 21:12 Glucagon (Glucagon For Inj 1 Mg Vial) 1 mg SQ UD PRN; Protocol PRN Reason: Hypoglycemia Protocol Stop: 10/14/24 02:02 Glucose (Glucose 40% Gel 15 Gm Tube) 15 - 30 gm PO UD PRN; Protocol PRN Reason: Hypoglycemia Protocol Stop: 10/14/24 02:02 Glucose (Glucose 10 Tab/Tube) 4 - 8 tab PO UD PRN; Protocol PRN Reason: Hypoglycemia Protocol Stop: 10/14/24 02:02 Heparin Sodium (Porcine) (Heparin 100 Unit/Ml 5ml Flush) 5 ml FLUSH PRN PRN PRN Reason: Flush Stop: 10/14/24 03:40 Hydromorphone HCl (Hydromorphone Inj 2 Mg/Ml Syr/Vial) 2 mg IV Q3H PRN PRN Reason: Pain (1,2,3,4,5) & Pre PT Stop: 09/28/24 02:12 Last Admin: 09/14/24 09:41 Dose: 2 mg Hydromorphone HCl (Hydromorphone Inj 2 Mg/Ml Syr/Vial) 4 mg IV Q3H PRN PRN Reason: Pain (6,7,8,9,10) Stop: 09/28/24 02:18 Last Admin: 09/14/24 02:24 Dose: 4 mg Promethazine HCl (Phenergan) 12.5 mg in 50.5 mls @ 202 mls/hr IV Q6H PRN PRN Reason: Nausea And Vomiting Stop: 10/14/24 02:02 Last Infusion: 09/14/24 08:18 Dose: Infused Lactated Ringer's (Lr) 1,000 mls @ 15 mls/hr IV .Q24H [facility] Stop: 09/17/24 13:14 Last Infusion: 09/14/24 13:09 Dose: Infused Insulin Aspart (Insulin Aspart Per Unit Charge) 0 units SC Q6 [facility] Stop: 10/14/24 02:59 Last Admin: 09/14/24 12:37 Dose: Not Given Insulin Glargine (Lantus Per Unit Charge) 5 units SQ BID [facility] Stop: 10/14/24 08:59 Last Admin: 09/14/24 07:52 Dose: 5 units Miscellaneous (Carbohydrates For Hypoglycemia ) 15 - 30 gm PO UD PRN PRN Reason: Hypoglycemia Protocol Stop: 10/14/24 02:02 Miscellaneous (Fentanyl Patch Remove & Waste) 1 each N/A Q3D@0859 [facility] Stop: 10/16/24 08:58 Miscellaneous (Check Fentanyl Patch Placement) 1 each N/A QS [facility] Stop: 10/14/24 02:02 Last Admin: 09/14/24 07:51 Dose: 1 each Miscellaneous (Check Scopolamine Patch Placement) 1 each N/A QS [facility] Stop: 09/17/24 05:59 Miscellaneous (Remove Transderm-Scop Patch) 1 each N/A ONE ONE Stop: 09/17/24 06:01 Miscellaneous Information (Pharmacy Glycemic Mgmt Consult) 1 each N/A UD PRN PRN Reason: Consult Stop: 10/14/24 02:02 Naloxone HCl (Naloxone Hcl 0.4 Mg/1 Ml Vial/Carp) 0.1 mg IV Q5M PRN PRN Reason: Oversedation/Resp Depression Stop: 10/14/24 02:02 Ondansetron HCl (Ondansetron Inj 2 Mg/Ml 2 Ml Vial) 4 mg IV Q4H PRN PRN Reason: Nausea Stop: 10/14/24 02:02 Last Admin: 09/14/24 06:25 Dose: 4 mg Ondansetron HCl (Ondansetron Inj 2 Mg/Ml 2 Ml Vial) 4 mg IV ONCE PRN PRN Reason: PACU Use Only-Nausea/Vomiting Stop: 09/14/24 21:12 PG Care Time/CCT Total # of Minutes Spent Total Time Spent with Patient: Total time spent is greater than 50% in coordination of care (as documented) at patient's floor/unit and/or counseling patient: Coding [place] [address] IN/OBS CONSULT LVL 4,60M Patient Type Established History Expanded Problem Focused Exam Expanded Problem Focused Medical Decision Making Moderate Complexity Diagnoses Palliative care by specialist Z51.5 Uncontrolled pain R52 Therapeutic opioid-induced constipation (OIC) K59.03; T40.2X5A
--- NOTE | 2024-09-14 11:02 | XRay Report ---
SKELETAL SURVEY CLINICAL HISTORY: Breast cancer. Metastatic bone disease. COMPARISON STUDY: Nuclear bone scan dated 08/14/2024. CT scan of the chest, abdomen, and pelvis dated 08/14/2024. CT scan of the left femur dated 09/13/2024. FINDINGS: 18 radiographs from a skeletal survey are presented as part of a skeletal survey. Again see n are findings of extensive/diffuse mixed lytic/blastic bony metastatic disease. This has not appreci ably changed from the recent nuclear bone scan and staging CT scans. There are numerous chronic/heale d bilateral rib fractures. There is also a subacute/healing pathologic fracture of the manubrium. A l arge and predominantly lytic lesion in the right humeral shaft may place the patient risk for additio nal pathologic fracture. Fracture through the greater trochanter of the left proximal femur is again noted. Extensive lytic disease in the left proximal femur may place the patient risk for additional p athologic fracture. No significant spinal compression fracture is identified by x-ray. A left subclav armando central venous infusion port is in place. The patient is edentulous. Cholecystectomy clips are no jessie in the right upper quadrant. Mesh material and additional clips project over the pelvis. Foci of parenchymal scarring are noted in both lungs. No airspace consolidation or pleural effusion identifie d. There is no bowel obstruction. IMPRESSION: 1. Extensive mixed lytic/blastic bony metastatic disease is similar in appearance to recent prior jaquan dies. 2. Fracture is again seen through the greater trochanter of the left proximal femur. 3. There is a subacute/healing pathologic fracture of the manubrium. 4. Note that the degree of lytic metastatic disease place the patient risk for additional pathologic fractures. This appears greatest in the mid right humeral shaft and the left proximal femur. Electronically signed by: Brant Evans M.D. 09/14/2024 11:00 AM
--- NOTE | 2024-09-14 11:39 | Hospitalist Progress Note ---
Date of Service September 14, 2024 Assessment & Plan (1) Closed fracture of greater trochanter of left femur: (2) Metastatic cancer: (3) Anemia: (4) Cancer related pain: Plan 49 year old female metastatic breast cancer on chronic opiate therapy due to cancer related pain who presented to the ER with left hip pain after falling on August 09. Initial outpatient hip XRs were negative. 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 She has extensive widespread metastatic disease involving the left femur with risk of pathological fracture. #Left pathological greater trochanter fracture / Cancer related pain - Skeletal survey reveals extensive mixed lytic/blastic bony metastatic disease. The degree of lytic metastatic disease places the patient at risk for additional pathologic fractures, greatest in the mid right humeral shaft and the left proximal femur - Ortho consulted - recommends prophylactic closed fixation for pain control, mobilization, and to prevent fracture. She is being taken to the OR today 09/14 - Radiation oncology consulted - preferred option is surgical stabilization. If this is not an option, palliative radiation therapy can be offered for pain control - Palliative care consulted - continuing her Fentanyl patch and Dilaudid 2-4mg IV q3h PRN for mod-severe pain - PT/OT deferred for now, can consult them postop #Metastatic breast cancer - Follows with Dr. Plascencia, on Eribulin #Type 2 diabetes mellitus - HbA1C with AM labs, 7.9 in August - Consult pharmacy for ongoing glycemic control #Normocytic anemia - At baseline, management per outpatient hem/onc VTE Prophylaxis - Lovenox 40mg SQ HS Dispo: Continued inpatient stay for possible surgical intervention, pain control Discussed case with Ortho Discussed case with palliative care Admission and Anticipated Discharge Date Admission Date: September 13, 2024 Supervising Physician Co-Signing Physician Notes Attending Attestation - Chart reviewed in detail, care plan d/w ERLINDA Colindres. I agree w/ the palma components of her documentation. Appreciate ortho, rad onc, and palliative care consultations & assistance. Kevyn Eller MD Subjective Patient seen and evaluated at bedside. She is groaning in pain at this time. She had just pivoted from [facility] back to bed which exacerbated her pain. She is about to go to the OR for surgical fixation of her pathologic left greater trochanter fracture. Physical Exam Physical Exam: General: Moderate distress secondary to pain, nondiaphoretic, well-developed. Not well-nourished. Skin: Warm, dry. Cardiac: Regular rate and rhythm without murmurs gallops or rubs. Pulm: Clear to auscultation bilaterally without wheezes, rales or rhonchi. Normal respiratory effort. 99% on room air. Neuro: A&O x3. No focal neurological deficits. MSK: Tender over left greater trochanter. No obvious deformities. Neurovascularly intact. Normal sensation in lower extremities. Results & Data Results & Data Vital Signs (Past 12 Hours) Vital Signs Temp Pulse Resp BP Pulse Ox O2 Del Method 09/14/24 07:50 98.2 F 84 16 104/70 99 Room Air 09/14/24 02:30 Room Air 09/14/24 02:30 98.1 F 93 H 18 103/68 100 Room Air 09/14/24 01:30 Room Air 09/14/24 01:00 87 14 95/63 L 100 Room Air Laboratory Results Reviewed CBC with differential Reviewed CMP, chemistries Diagnostic Findings Reviewed femur CT Reviewed skeletal survey Femur CT 09/13/24 20:45 Exam(s): CT EXTREMITY LEFT LOWER Without Contrast EXAM: CT Left Lower Extremity Without Intravenous Contrast CLINICAL HISTORY: pain, fall, cancer. TECHNIQUE: Axial computed tomography images of the left lower extremity without intravenous contrast. CTDI is 24.91 mGy and DLP is 1300.17 mGy-cm. Automated exposure control was utilized for the study. A dose lowering technique was utilized adhering to the principles of ALARA. COMPARISON: No relevant prior studies available. FINDINGS: Bones/joints: Diffuse extensive osseous metastatic disease throughout the included skeletal structures with near complete resorption of the posterior column of the acetabulum and near complete resorption of the base of the left femoral neck. There is a nondisplaced fracture involving the lateral aspect of the left greater trochanter, best appreciated on coronal reformatted imaging. No dislocation. Soft tissues: Unremarkable. IMPRESSION: Extensive osseous metastatic disease. There is a nondisplaced fracture involving the lateral aspect of the left greater trochanter, best appreciated on coronal reformatted imaging. The remaining osseous structures are intact; however, there is near complete resorption at the base of the left femoral neck. The patient is considered high risk for pathologic fracture. Electronically signed by: Jeovany Ramirez MD 09/13/24 23:02 PM Skeletal Survey 09/14/24 08:25 SKELETAL SURVEY CLINICAL HISTORY: Breast cancer. Metastatic bone disease. COMPARISON STUDY: Nuclear bone scan dated 08/14/2024. CT scan of the chest, ab domen, and pelvis dated 08/14/2024. CT scan of the left femur dated 09/13/2024. FINDINGS: 18 radiographs from a skeletal survey are presented as part of a skeletal survey. Again seen are findings of extensive/diffuse mixed lytic/blastic bony metastatic disease. This has not appreciably changed from the recent nuclear bone scan and staging CT scans. There are numerous chronic/healed bilateral rib fractures. There is also a subacute/healing pathologic fracture of the manubrium. A large and predominantly lytic lesion in the right humeral shaft may place the patient risk for additional pathologic fracture. Fracture through the greater trochanter of the left proximal femur is again noted. Extensive lytic disease in the left proximal femur may place the patient risk for additional pathologic fracture. No significant spinal compression fracture is identified by x-ray. A left subclavian central venous infusion port is in place. The patient is edentulous. Cholecystectomy clips are noted in the right upper quadrant. Mesh material and additional clips project over the pelvis. Foci of parenchymal scarring are noted in both lungs. No airspace consolidation or pleural effusion identified. There is no bowel obstruction. IMPRESSION: 1. Extensive mixed lytic/blastic bony metastatic disease is similar in appearance to recent prior studies. 2. Fracture is again seen through the greater trochanter of the left proximal femur. 3. There is a subacute/healing pathologic fracture of the manubrium. 4. Note that the degree of lytic metastatic disease place the patient risk for additional pathologic fractures. This appears greatest in the mid right humeral shaft and the left proximal femur. Electronically signed by: Brant Evans M.D. 09/14/2024 11:00 AM PG Care Time/CCT Total # of Minutes Spent Total Time Spent with Patient: Total time spent is greater than 50% in coordination of care (as documented) at patient's floor/unit and/or counseling patient: Coding Level of Care Code 16643 SUB INP/OBS CARE 3/50MIN Diagnoses Closed fracture of greater trochanter of left femur S72.112A Metastatic cancer C79.51 Area of secondary neoplastic involvement: bone Anemia D64.9 Cancer related pain G89.3 (2) Metastatic cancer Area of secondary neoplastic involvement: bone Qualified Code(s): C79.51 - Secondary malignant neoplasm of bone
[2024-09-14] MEDS ORDERED: MIDAZOLAM HCL 1 MG/ML 2ML VIAL ONE (12:10)
[2024-09-14] MEDS ORDERED: DEXAMETHASONE SOD INJ 4 MG/ML VIAL ONE (12:10)
[2024-09-14] MEDS ORDERED: ONDANSETRON INJ 2 MG/ML 2 ML VIAL ONE (12:10)
[2024-09-14] MEDS ORDERED: PROPOFOL IV EMULSION 10 MG/ML 20 ML VIAL IV ONE (12:10)
[2024-09-14] MEDS ORDERED: LIDOCAINE 2% 2 ML VIAL/AMP(20MG/ML) INFIL ONE (12:10)
[2024-09-14] MEDS: SCOPOLAMINE 1 MG/72 HR TDSY PATCH TD ONE ×3 (13:08→16:20)
--- NOTE | 2024-09-14 13:11 | Anesthesiology Consultation ---
Date of Service September 14, 2024 Assessment & Plan Chart Review Chart Review: Acceptable Risk for Surgery and Patient NOT seen in Pre Admission Testing Consults Requested none History Surgery Operation Date: 09/14/24 10:20 Proposed Procedures p Left Troch Nail - Richard Faustin DO Height/Weight Height: 5 ft 6 in Weight: 88.3 kg Allergies Allergy/AdvReac Type Severity Reaction Status Date / Time No Known Allergies Allergy Verified 09/13/24 20:51 Medications Home Medications Medication Instructions Recorded Confirmed Last Taken insulin aspart U-100 100 unit/mL 0 sliding scale dose subcut AC 06/25/23 09/13/24 09/13/24 (3 mL) subcutaneous pen (Novolog FlexPen U-100 Insulin aspart) ondansetron 8 mg disintegrating 8 mg translingual BID PRN Nausea 06/25/23 09/13/24 Unknown tablet And Vomiting insulin glargine 100 unit/mL (3 10 unit subcut BID 09/23/23 09/13/24 09/13/24 mL) subcutaneous pen (Lantus Solostar U-100 Insulin) fentanyl 75 mcg/hr transdermal 1 patch transdermal Q72H 1 month 01/17/24 09/13/24 09/13/24 patch #10 ea hydromorphone 8 mg tablet 8 mg PO TID PRN very severe bone 08/20/24 09/13/24 Unknown (Dilaudid) mets related cancer pain metoclopramide HCl 10 mg tablet 10 mg PO .1-2X A DAY PRN n/v 08/20/24 09/13/24 Unknown olanzapine 5 mg tablet (Zyprexa) 5 mg PO BID PRN n/v 08/20/24 09/13/24 Unknown oxycodone 30 mg tablet 45 - 60 mg PO Q4H PRN Severe Pain 08/20/24 09/13/24 09/13/24 (Scale Score 7-10) Active Medications Generic Name Dose Route Start Last Admin Trade Name Freq PRN Reason Stop Dose Admin Hydromorphone HCl 2 mg 09/14/24 02:13 09/14/24 09:41 Hydromorphone Inj 2 Mg/Ml Syr/Vial IV 09/28/24 02:12 2 mg Q3H PRN Administration Pain (1,2,3,4,5) & Pre PT Hydromorphone HCl 4 mg 09/14/24 02:19 09/14/24 02:24 Hydromorphone Inj 2 Mg/Ml Syr/Vial IV 09/28/24 02:18 4 mg Q3H PRN Administration Pain (6,7,8,9,10) Promethazine HCl 12.5 mg in 50.5 mls @ 202 mls/hr 09/14/24 02:03 09/14/24 08:18 Phenergan IV 10/14/24 02:02 Infused Q6H PRN Infusion Nausea And Vomiting Lactated Ringer's 1,000 mls @ 15 mls/hr 09/14/24 13:15 09/14/24 13:03 Lr IV 09/17/24 13:14 15 mls/hr .Q24H JESSE Administration Insulin Aspart 0 units 09/14/24 03:00 09/14/24 12:37 Insulin Aspart Per Unit Charge SC 10/14/24 02:59 Not Given Q6 JESSE Insulin Glargine 5 units 09/14/24 09:00 09/14/24 07:52 Lantus Per Unit Charge SQ 10/14/24 08:59 5 units BID JESSE Administration Miscellaneous 1 each 09/14/24 02:03 09/14/24 07:51 Check Fentanyl Patch Placement N/A 10/14/24 02:02 1 each QS JESSE Administration Ondansetron HCl 4 mg 09/14/24 02:03 09/14/24 06:25 Ondansetron Inj 2 Mg/Ml 2 Ml Vial IV 10/14/24 02:02 4 mg Q4H PRN Administration Nausea NPO Date Last Intake of Fluids: 09/13/24 Time Last Intake of Fluids: 23:00 Date Last Intake of Solids: 09/13/24 Time Last Intake of Solids: 23:00 Past Medical History Medical History DM type 2 (diabetes mellitus, type 2) Breast cancer metastasized to bone History of COVID-19 12/2020 + 12/2021 > residual taste dysfunction and feeling of need to clear throat Bilateral breast cancer Arthritis Liver spots "Mets from cancer" Depression with anxiety Peripheral neuropathy Heart palpitations R/t anxiety per patient History of small bowel obstruction Hx bowel obstruction Hypothyroidism No current meds Past Family History Family History Mother , 77yo Diabetes Heart disease Aortic valve replacement Mitral valve calcifications UTI (urinary tract infection) Father , 62yo Diabetes Myocardial infarction Hypertension Stroke Brother Diabetes Myocardial infarction Cardiac stents Pacemaker Hypertension Sister No problems noted. Daughter No problems noted. Son No problems noted. Son No problems noted. Other No family history of adverse response to anesthesia Past Surgical History Surgical History History of tubal ligation Port-A-Cath in place (04/30/22) Insertion Access Port left subclavian with Fluoroscopy(Left) - Chad Banuelos DO History of surgery Left Excisional Debridement of Buttock Wound Nausea and vomiting after administration of anesthetic agent "EXTREME" History of vascular access device PORT INSERTION/REMOVAL History of tooth extraction History of endometrial ablation History of bowel resection D/T BOWEL OBSTRUCTION History of lung surgery Left thoracoscopy with wedge resection left lower lobe Dr. Damico 03/29/2018 History of dilatation and curettage H/O hernia repair Hx of section x3 S/P lumpectomy, left breast LEFT ARM LIMB RESTRICTION Social History Smoking Status: Never smoker Do You Dip or Chew Tobacco: No Hx Alcohol Use: No Alcohol type: hard liquor alcohol intake frequency: holidays/special occasions only Hx Substance Use: Yes substance use type: marijuana Substance Use Type Other:: Medical marijuana. Last Used Substance: Unknown Last Used Substance Other:: used occasionally Physical Exam Vital Signs Last Vital Signs Temp 98.2 F 09/14/24 12:40 Pulse 84 09/14/24 07:50 Resp 20 09/14/24 12:40 BP 138/80 09/14/24 12:40 Pulse Ox 100 09/14/24 12:40 O2 Del Method Room Air 09/14/24 12:40 Testing Laboratory Results 09/14/24 07:32 09/14/24 07:32 Hemoglobin A1c 7.4 % (4.5-5.6) H 09/14/24 07:32 09/14/24 09/14/24 09/14/24 12:35 06:20 03:28 POC Glucose 163 H 165 H 193 H
[2024-09-14] MEDS ORDERED: ATROPINE SULFATE 0.1 MG/ML 10ML SYR IV PRN ×2 (13:12→15:08)
[2024-09-14] MEDS ORDERED: ONDANSETRON INJ 2 MG/ML 2 ML VIAL IV PRN (13:12)
[2024-09-14] MEDS ORDERED: METOCLOPRAMIDE HCL INJ 5 MG/ML 2 ML VIAL ONE (13:33)
[2024-09-14] MEDS ORDERED: PHENYLEPHRINE HCL 10 MG/ML VIAL ONE (13:44)
[2024-09-14] MEDS ORDERED: ePHEDrine sulfate 50 MG/5 ML SYR ONE (13:48)
[2024-09-14] MEDS: BUPIVACAINE/EPINEPHRINE 0.25% 1:200,000 30 ML VIAL ONE (14:30)
[2024-09-14] MEDS: TRANEXAMIC ACID / 0.7% NACL 1000MG/100ML BAG IV ONE (14:31)
--- NOTE | 2024-09-14 14:43 | Pharmacy Report ---
Pharmacy Glycemic Short Note 2 - Date of Service September 14, 2024 - Glycemic Short BSG Results (Last 24 hours): 09/13/24 09/14/24 09/14/24 21:19 03:28 06:20 Glucose 286 H POC Glucose 193 H 165 H 09/14/24 09/14/24 07:32 12:35 Glucose 143 H POC Glucose 163 H OUTPATIENT ANTIDIABETIC REGIMEN: * Lantus 10 units SQ BID * NovoLOG SSI TIDM * HbA1c 7.9% (07/13/24) ASSESSMENT: * Yamilka is a 49 year old female admitted with left hip fracture and a history of breast cancer metastasized to bone and type 2 diabetes mellitus. Pharmacy has been consulted to assist with glycemic management while inpatient. * NPO this AM for hip surgery, conservative basal insulin started at 50% reported home basal dosage. Currently in procedure, but dexamethasone 4mg IV pulled preoperatively. Will give full home basal dose after procedure to help cover for steroid induced hyperglycemia. * NovoLog at a weight based stress of 3 with steroids administration PLAN FOR INPATIENT GLYCEMIC CONTROL: * Hold outpatient oral diabetes medications * Basal insulin * Lantus 5 units SQ this AM x1 * Lantus 20 units SQ x1 post procedure * Bolus insulin * NovoLog per scale ACHS or Q6hrs while NPO * Goal Range: Low 110 mg/dL - High 140 mg/dL * Correction Factor: 20 mg/dL/unit * Nutritional / Prandial insulin per carb ratio of 1 unit per 6 grams CHO consumed
[2024-09-14] MEDS ORDERED: PROMETHAZINE HCL 6.25 MG in SODIUM CHLORIDE 0.9% 50 ML IV PRN (15:08)
[2024-09-14] MEDS ORDERED: DROPERIDOL 5 MG/2 ML VIAL IV PRN (15:08)
[2024-09-14] MEDS: HYDROmorphone INJ 0.5 MG/0.5 ML SYR IV PRN (15:30)
--- NOTE | 2024-09-14 15:37 | Palliative Care Consultation ---
Date of Consultation September 14, 2024 Assessment & Plan (1) Cancer related pain: * Very severe, complex cancer pain with numerous opioid intolerances/no coverage for long acting and tolerance for TDF limited at 75mcg, cannot tolerate 100mcg d/t hypotension, weakness, mental cloudiness * Recc Dilaudid 2mg IV q2h prn moderate pain and Dilaudid 4mg IV q3h prn severe to very severe pain. * If requiring more frequent dosing OR insuff relief with this regimen, please initiate Dilaudid MANAGER DRUG bolus only 1mg Q20min prn, NO continuous rate since she remains on TDF * We will help transition her to a regimen to follow at [facility], but please note the various opioid intolerances and insurance limitations/formulary restrictions outlined in HPI (2) Left hip pain: s/p fall now with Closed fracture of greater trochanter of left femur: for surgery this afternoon (3) Chemotherapy induced nausea and vomiting: (4) Chemotherapy-induced peripheral neuropathy: (5) Severe pain: (6) Palliative care by specialist: (7) Therapeutic opioid-induced constipation (OIC): (8) Breast cancer metastasized to multiple sites: Laterality: unspecified laterality Qualified Code(s): C50.919 - Malignant neoplasm of unspecified site of unspecified female breast (9) Leg weakness, bilateral: (10) Breast cancer metastasized to bone: Laterality: unspecified laterality Qualified Code(s): C50.919 - Malignant neoplasm of unspecified site of unspecified female breast; C79.51 - Secondary malignant neoplasm of bone Plan Yamilka is well known to me from OP clinic and has a clear ACP outlined in prior notes. She aims to treat what can be treated and fix what can be fixed but she elects no code - DNR/DNI in the event of a natural . She does not want to prolong a dying process. Ideally would desire being at home with family if time is running short. Thank you for allowing us to participate in the ongoing care of this patient. Please page with any additional concerns. Pilar Limon DNP Director, Palliative Medicine History of Present Illness Reason for Consultation: pain mgt Attending Physician: Kevyn Eller MD History of Present Illness Yamilka is a 49yo female well known to palliative medicine from outpatient [facility], where she is followed for very severe cancer related pain as well as cancer related chronic n/v, fatigue and depression/anxiety, JOSE. In 2018, biopsy + invasive ductal carcinoma, grade 1. ER positive NM positive HER2/rupert 1+. Her cancer is endocrine refractory after Zoladex/anastrozole >> fulvestrant/palbociclib >> exemestane/everolimus >> repeat fulvestrant/palbociclib Complicated by injection site reactions to the fulvestrant Fulvestrant/palbociclib therapy discontinued 04/15/2022 then followed by low-dose paclitaxel x 7 doses 05/20/2022 - 07/01/2022, discontinued d/t neurotoxicity; then capecitabine start 08/14/2022 as 2500 mg (1000 mg/M2) po bid days 1-14 of a 21-d ay cycle and had to be stopped after 2 cycles d/t severe diarrhea. Then started gemcitabine started 12/10/2022, complicated by severe n/v Admitted 01/07/2023 with possible cholecystitis [id number] did not identify other potential options for future treatment Was on denosumab q 3 month Now on eribulin days 1, 8 and 21. Fell August 09 while away for a weekend, left fibula discomfort and on return to home, we ordered imaging and +left fibula fracture. Seen in clinic 09/11, with inc left hip pain and severe n/v reports pain 10/10 left hip and into left leg, radiates to above the knee, cannot weight bear, cannot toe touch. offered ED visit 09/11 but declined, did not want admission and did agree to IVF Prior intolerance to higher TDF - at 100mcg she had hypotensive, inc n/v She had trouble tolerating Dilaudid > 6-8 mg for short bursts, with inc n/v, mental fogginess and unsteady with any activity BUT can tolerate IV Dilaudid during inpatient admissions She has been able to tolerate oxy IR but dose escalated not to 45-60mg PO q4-6 prn, her insurance will not cover OcyContin Prior failure with dose escalation of MS IR and MS Contin trial - inc nausea no relief with gabapentin but inc sedation/fatigue Had IVF and anti emetics in infusion clinic Had transient improvement in pain post IVF but returned by 09/13 and after d/w me last might was advised ED eval for urgent assessment, a CT hip was pending. 09/13/2024. CT of left femur: Extensive osseous metastatic disease. There is a nondisplaced fracture involving the lateral aspect of the left greater trochanter, best appreciated on coronal reformatted imaging. The remaining osseous structures are intact; however, there is near complete resorption at the base of the left femoral neck. The patient is considered high risk for pathologic fracture. She was seen earlier today by rad onc and ortho ortho recc: high risk pathologic fracture, recc ORIF for stabilization She is now en route to OR Allergies Allergy/AdvReac Type Severity Reaction Status Date / Time No Known Allergies Allergy Verified 09/13/24 20:51 Home Medications Medication Instructions Recorded Confirmed Type insulin aspart U-100 100 unit/mL 0 sliding scale dose subcut AC 06/25/23 09/13/24 History (3 mL) subcutaneous pen (Novolog FlexPen U-100 Insulin aspart) ondansetron 8 mg disintegrating 8 mg translingual BID PRN Nausea 06/25/23 09/13/24 History tablet And Vomiting insulin glargine 100 unit/mL (3 10 unit subcut BID 09/23/23 09/13/24 History mL) subcutaneous pen (Lantus Solostar U-100 Insulin) fentanyl 75 mcg/hr transdermal 1 patch transdermal Q72H 1 month 01/17/24 09/13/24 Rx patch #10 ea hydromorphone 8 mg tablet 8 mg PO TID PRN very severe bone 08/20/24 09/13/24 History (Dilaudid) mets related cancer pain metoclopramide HCl 10 mg tablet 10 mg PO .1-2X A DAY PRN n/v 08/20/24 09/13/24 History olanzapine 5 mg tablet (Zyprexa) 5 mg PO BID PRN n/v 08/20/24 09/13/24 History oxycodone 30 mg tablet 45 - 60 mg PO Q4H PRN Severe Pain 08/20/24 09/13/24 History (Scale Score 7-10) Patient History Medical History DM type 2 (diabetes mellitus, type 2) Breast cancer metastasized to bone History of COVID-19 12/2020 + 12/2021 > residual taste dysfunction and feeling of need to clear throat Bilateral breast cancer Arthritis Liver spots "Mets from cancer" Depression with anxiety Peripheral neuropathy Heart palpitations R/t anxiety per patient History of small bowel obstruction Hx bowel obstruction Hypothyroidism No current meds Surgical History History of tubal ligation Port-A-Cath in place (04/30/22) Insertion Access Port left subclavian with Fluoroscopy(Left) - Chad Banuelos DO History of surgery Left Excisional Debridement of Buttock Wound Nausea and vomiting after administration of anesthetic agent "EXTREME" History of vascular access device PORT INSERTION/REMOVAL History of tooth extraction History of endometrial ablation History of bowel resection D/T BOWEL OBSTRUCTION History of lung surgery Left thoracoscopy with wedge resection left lower lobe Dr. Damico 03/29/2018 History of dilatation and curettage H/O hernia repair Hx of section x3 S/P lumpectomy, left breast LEFT ARM LIMB RESTRICTION Family History Mother , 77yo Diabetes Heart disease Aortic valve replacement Mitral valve calcifications UTI (urinary tract infection) Father , 62yo Diabetes Myocardial infarction Hypertension Stroke Brother Diabetes Myocardial infarction Cardiac stents Pacemaker Hypertension Sister No problems noted. Daughter No problems noted. Son No problems noted. Son No problems noted. Other No family history of adverse response to anesthesia Social History Smoking Status: Never smoker Second Hand Exposure: No; Do You Dip or Chew Tobacco: No; Hx Alcohol Use: No Hx Substance Use: Yes Last Used Substance: Unknown Last Used Substance Other:: used occasionally Substance Use Type Other:: Medical marijuana. 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 How many Children do You have: 3 Feels Safe at Home: Yes Diet: regular caffeine: No during the past year weight has: remained stable Assistive Devices: Walker and Wheelchair Review of Systems Review of Systems: All systems reviewed & are unremarkable except as noted in Subjective Physical Exam Physical Exam: fatigued pale losing weight from prior visits mood very subdued grimacing with any movement BLE pulses intact, sensation intact, unable to lift/rotate LLE Results & Data Vital Signs (Past 12 Hours) Vital Signs Temp Pulse Resp BP Pulse Ox O2 Del Method O2 Flow Rate 09/14/24 15:15 102 H 13 117/79 99 Nasal Cannula 3 09/14/24 15:05 107 H 18 134/91 99 Nasal Cannula 3 09/14/24 14:55 94 H 21 121/75 98 Nasal Cannula 3 09/14/24 14:46 36.2 C L 102 H 19 132/73 100 Nasal Cannula 3 09/14/24 12:40 36.8 C 20 138/80 100 Room Air 09/14/24 07:50 Room Air 09/14/24 07:50 36.8 C 84 16 104/70 99 Room Air Laboratory Results 09/14/24 09/14/24 09/14/24 Range/Units 14:52 12:35 07:32 WBC 4.04 L (4.8-10.8) K/ul RBC 2.80 L (4.20-5.40) M/uL Hgb 8.4 L (12.0-16.0) g/dl Hct 23.9 L (37.0-47.0) % MCV 85.4 (80.0-100.0) fL MCH 30.0 (25.0-34.0) pg MCHC 35.1 (32.0-36.0) g/dL RDW Std Deviation 48.7 H (36.4-46.3) fL RDW Coeff of Joshua 15.8 H (11.5-14.5) % Plt Count 159 (130-400) K/uL MPV 8.9 L (9.4-12.4) fL Immature Gran % (Auto) % Neut % (Auto) % Lymph % (Auto) % [place] % (Auto) % Eos % (Auto) % Baso % (Auto) % Neut # (Auto) (1.40-6.50) K/uL Lymph # (Auto) (1.20-3.40) K/uL [place] # (Auto) (0.11-0.59) K/uL Eos # (Auto) (0.00-0.50) K/uL Baso # (Auto) (0.00-0.20) K/uL Immature Gran # (Auto) (0.01-0.20) K/uL Sodium 136 (136-145) mmol/L Potassium 3.8 (3.5-5.1) mmol/L Chloride 100 (98-107) mmol/L Carbon Dioxide 27 (21-32) mmol/L Anion Gap 9 (3-11) BUN 21 (6-23) mg/dl Creatinine 0.92 (0.6-1.2) mg/dl Est Cr Clr Drug Dosing 84.6 ml/min eGFR 77.29 BUN/Creatinine Ratio 22.8 H (10-20) Glucose 143 H (70-99(Fasting)) mg/dl POC Glucose 208 H 163 H (70-99) mg/dl Estimat Average Glucose 166 mg/dl Hemoglobin A1c 7.4 H (4.5-5.6) % Calcium 10.3 (8.6-10.3) mg/dl Total Bilirubin (0.2-1.0) mg/dl AST (13-39) U/L ALT (7-52) U/L Alkaline Phosphatase (34-104) U/L Total Protein (6.0-8.3) gm/dl Albumin (3.4-5.0) gm/dl Globulin (2.5-4.0) gm/dl Albumin/Globulin Ratio (0.9-2) Lipase (11-82) U/L 09/14/24 09/14/24 09/13/24 Range/Units 06:20 03:28 21:19 WBC 4.76 L (4.8-10.8) K/ul RBC 2.72 L (4.20-5.40) M/uL Hgb 8.2 L (12.0-16.0) g/dl Hct 23.1 L (37.0-47.0) % MCV 84.9 (80.0-100.0) fL MCH 30.1 (25.0-34.0) pg MCHC 35.5 (32.0-36.0) g/dL RDW Std Deviation 48.2 H (36.4-46.3) fL RDW Coeff of Joshua 15.6 H (11.5-14.5) % Plt Count 158 (130-400) K/uL MPV 9.7 (9.4-12.4) fL Immature Gran % (Auto) 1.5 % Neut % (Auto) 69.8 % Lymph % (Auto) 23.1 % [place] % (Auto) 4.0 % Eos % (Auto) 0.8 % Baso % (Auto) 0.8 % Neut # (Auto) 3.32 (1.40-6.50) K/uL Lymph # (Auto) 1.10 L (1.20-3.40) K/uL [place] # (Auto) 0.19 (0.11-0.59) K/uL Eos # (Auto) 0.04 (0.00-0.50) K/uL Baso # (Auto) 0.04 (0.00-0.20) K/uL Immature Gran # (Auto) 0.07 (0.01-0.20) K/uL Sodium 134 L (136-145) mmol/L Potassium 3.8 (3.5-5.1) mmol/L Chloride 101 (98-107) mmol/L Carbon Dioxide 25 (21-32) mmol/L Anion Gap 8 (3-11) BUN 21 (6-23) mg/dl Creatinine 0.90 (0.6-1.2) mg/dl Est Cr Clr Drug Dosing 86.3 ml/min eGFR 79.35 BUN/Creatinine Ratio 23.3 H (10-20) Glucose 286 H (70-99(Fasting)) mg/dl POC Glucose 165 H 193 H (70-99) mg/dl Estimat Average Glucose mg/dl Hemoglobin A1c (4.5-5.6) % Calcium 9.5 (8.6-10.3) mg/dl Total Bilirubin 0.5 (0.2-1.0) mg/dl AST 20 (13-39) U/L ALT 13 (7-52) U/L Alkaline Phosphatase 150 H (34-104) U/L Total Protein 6.4 (6.0-8.3) gm/dl Albumin 3.3 L (3.4-5.0) gm/dl Globulin 3.1 (2.5-4.0) gm/dl Albumin/Globulin Ratio 1.1 (0.9-2) Lipase 13 (11-82) U/L Diagnostic Findings Femur CT 09/13/24 20:45 Exam(s): CT EXTREMITY LEFT LOWER Without Contrast EXAM: CT Left Lower Extremity Without Intravenous Contrast CLINICAL HISTORY: pain, fall, cancer. TECHNIQUE: Axial computed tomography images of the left lower extremity without intravenous contrast. CTDI is 24.91 mGy and DLP is 1300.17 mGy-cm. Automated exposure control was utilized for the study. A dose lowering technique was utilized adhering to the principles of ALARA. COMPARISON: No relevant prior studies available. FINDINGS: Bones/joints: Diffuse extensive osseous metastatic disease throughout the included skeletal structures with near complete resorption of the posterior column of the acetabulum and near complete resorption of the base of the left femoral neck. There is a nondisplaced fracture involving the lateral aspect of the left greater trochanter, best appreciated on coronal reformatted imaging. No dislocation. Soft tissues: Unremarkable. IMPRESSION: Extensive osseous metastatic disease. There is a nondisplaced fracture involving the lateral aspect of the left greater trochanter, best appreciated on coronal reformatted imaging. The remaining osseous structures are intact; however, there is near complete resorption at the base of the left femoral neck. The patient is considered high risk for pathologic fracture. Electronically signed by: Jeovany Ramirez MD 09/13/24 23:02 PM Hip X-Ray 09/14/24 00:00 FL hip LT 2-3V CLINICAL HISTORY: LEFT HIPfemoral nail COMPARISON STUDY: None pertinent FLUOROSCOPY TIME: 93.7 seconds FLUOROSCOPY IMAGES: 5 EXPOSURE DOSE: 21.91 mGy FINDINGS: Image guidance provided for femoral nail IMPRESSION: Refer to procedural report for evaluation based on real-time fluoroscopic observation. ACT 112: Negative or not required by law. Electronically signed by: Kyra Augustin M.D. 09/14/2024 3:47 PM Skeletal Survey 09/14/24 08:25 SKELETAL SURVEY CLINICAL HISTORY: Breast cancer. Metastatic bone disease. COMPARISON STUDY: Nuclear bone scan dated 08/14/2024. CT scan of the chest, abdomen, and pelvis dated 08/14/2024. CT scan of the left femur dated 09/13/2024. FINDINGS: 18 radiographs from a skeletal survey are presented as part of a skeletal survey. Again seen are findings of extensive/diffuse mixed lytic/blastic bony metastatic disease. This has not appreciably changed from the recent nuclear bone scan and staging CT scans. There are numerous chronic/healed bilateral rib fractures. There is also a subacute/healing pathologic fracture of the manubrium. A large and predominantly lytic lesion in the right humeral shaft may place the patient risk for additional pathologic fracture. Fracture through the greater trochanter of the left proximal femur is again noted. Extensive lytic disease in the left proximal femur may place the patient risk for additional pathologic fracture. No significant spinal compression fracture is identified by x-ray. A left subclavian central venous infusion port is in place. The patient is edentulous. Cholecystectomy clips are noted in the right upper quadrant. Mesh material and additional clips project over the pelvis. Foci of parenchymal scarring are noted in both lungs. No airspace consolidation or pleural effusion identified. There is no bowel obstruction. IMPRESSION: 1. Extensive mixed lytic/blastic bony metastatic disease is similar in appearance to recent prior studies. 2. Fracture is again seen through the greater trochanter of the left proximal femur. 3. There is a subacute/healing pathologic fracture of the manubrium. 4. Note that the degree of lytic metastatic disease place the patient risk for additional pathologic fractures. This appears greatest in the mid right humeral shaft and the left proximal femur. Electronically signed by: Brant Evans M.D. 09/14/2024 11:00 AM PG Care Time/CCT Total # of Minutes Spent Total Time Spent: 45 Total Time Spent with Patient: Total time spent is greater than 50% in coordination of care (as documented) at patient's floor/unit and/or counseling patient: Coding Level of Care Code New Pt None Patient Type New History Comprehensive Medical Decision Making High Complexity Diagnoses Cancer related pain G89.3 Left hip pain M25.552 Chemotherapy induced nausea and vomiting R11.2; T45.1X5A Chemotherapy-induced peripheral neuropathy G62.0; T45.1X5A Severe pain R52 Palliative care by specialist Z51.5 Therapeutic opioid-induced constipation (OIC) K59.03; T40.2X5A Breast cancer metastasized to multiple sites C50.919 Laterality: unspecified laterality Leg weakness, bilateral R29.898 Carcinoma of breast metastatic to bone, unspecified laterality C50.919; C79.51 Laterality: unspecified laterality
--- NOTE | 2024-09-14 15:49 | Fluoroscopy Report ---
FL hip LT 2-3V CLINICAL HISTORY: LEFT HIPfemoral nail COMPARISON STUDY: None pertinent FLUOROSCOPY TIME: 93.7 seconds FLUOROSCOPY IMAGES: 5 EXPOSURE DOSE: 21.91 mGy FINDINGS: Image guidance provided for femoral nail IMPRESSION: Refer to procedural report for evaluation based on real-time fluoroscopic observation. ACT 112: Negative or not required by law. Electronically signed by: Kyra Augustin M.D. 09/14/2024 3:47 PM
--- NOTE | 2024-09-14 15:52 | Anesthesiology Progress Note ---
Date of Service September 14, 2024 Anesthesia Post Procedure Vital Signs Vital Signs: Temp Pulse Pulse Resp BP BP Pulse Ox 09/14/24 15:45 36.4 C L 92 H 19 117/77 99 09/14/24 15:35 95 H 16 102/76 99 09/14/24 15:25 98 H 15 100/81 100 09/14/24 15:15 102 H 13 117/79 99 09/14/24 15:05 107 H 18 134/91 99 09/14/24 14:55 94 H 21 121/75 98 09/14/24 14:46 36.2 C L 102 H 19 132/73 100 09/14/24 12:40 36.8 C 20 138/80 100 09/14/24 07:50 09/14/24 07:50 36.8 C 84 16 104/70 99 09/14/24 02:30 09/14/24 02:30 36.7 C 93 H 18 103/68 100 09/14/24 01:30 09/14/24 01:00 87 14 95/63 L 100 09/13/24 23:00 87 16 120/73 100 09/13/24 22:19 85 09/13/24 21:17 09/13/24 21:17 92 H 16 140/85 100 09/13/24 20:21 36.8 C 109 H 18 110/76 98 O2 Del Method O2 Flow Rate 09/14/24 15:45 Nasal Cannula 3 09/14/24 15:35 Nasal Cannula 3 09/14/24 15:25 Nasal Cannula 3 09/14/24 15:15 Nasal Cannula 3 09/14/24 15:05 Nasal Cannula 3 09/14/24 14:55 Nasal Cannula 3 09/14/24 14:46 Nasal Cannula 3 09/14/24 12:40 Room Air 09/14/24 07:50 Room Air 09/14/24 07:50 Room Air 09/14/24 02:30 Room Air 09/14/24 02:30 Room Air 09/14/24 01:30 Room Air 09/14/24 01:00 Room Air 09/13/24 23:00 Room Air 09/13/24 22:19 09/13/24 21:17 Room Air 09/13/24 21:17 Room Air 09/13/24 20:21 Room Air Pain Intensity Left Hip: Pain Intensity: 8 Transfer of Care Handoff Completed per policy Notes Mental Status: alert / awake / arousable and participated in evaluation Nausea / Vomiting: adequately controlled Pain: adequately controlled Airway Patency, RR, SpO2: stable & adequate BP & HR: stable & adequate Hydration State: stable & adequate Anesthetic Complications: no major complications apparent and Pt Satisfied with anesthetic care
[2024-09-14] MEDS: CHECK SCOPOLAMINE PATCH PLACEMENT SCH (16:21)
[2024-09-14] MEDS ORDERED: HYDROmorphone INJ 2 MG/ML SYR/VIAL IV PRN (16:27)
[2024-09-14] MEDS ORDERED: Nursing to Pharmacy Communication SCH (16:30)
[2024-09-14] MEDS: LANTUS PER UNIT CHARGE SC ONE (17:35)
--- NOTE | 2024-09-14 18:11 | XRay Report ---
INDICATION: Postoperative evaluation. Pain TECHNIQUE: 2 views of the left femur were obtained. COMPARISON: None FINDINGS: Interval placement of an intramedullary evita and interlocking screws in the left femur. No displaced acute osseous process is identified. Expected postsurgical changes of the soft tissues. Redemonstrated diffuse sclerotic and lytic metastatic disease. IMPRESSION: Interval placement of an intramedullary evita and interlocking screws in the left femur with expected postsurgical changes of the soft tissues. Electronically signed by Jack Jordan 09-14-2024 6:11 PM
[2024-09-14] MEDS: ENOXAPARIN INJ 40 MG/0.4 ML SYR SQ SCH (20:00)
[2024-09-14] MEDS ORDERED: LANTUS PER UNIT CHARGE SQ SCH (21:00)
[2024-09-14] MEDS: HYDROmorphone INJ 1 MG/ML SYRINGE IV STA (22:23)
--- NOTE | 2024-09-15 07:11 | Orthopedic Progress Note ---
Date of Service September 15, 2024 Assessment & Plan (1) Breast cancer metastasized to bone: * S/p prophylactic fixation L femur * Continue Current Treatment * Disposition: Home, home PT * Daily treatment: Physical Therapy/ Occupational Therapy per protocol * Weight bearing status: WBAT with walker * Continue to monitor for ABLA * Pain control * DVT prophylaxis, recommend ASA x6 weeks post-op * Office/hospital f/u 2 weeks for progress check and staple/suture removal * Remainder care per primary team * Stable for discharge from ortho standpoint, further planning per primary team Subjective .Active Problems: S/p left prophylactic TFN POD 1 49 y/o female s/p left prophylactic TFN stabilization. Doing well overall, pain managed and improved function. Denies fever/chills, chest pain/SOB, nausea/vomiting. Otherwise no complaints. Review of Systems All systems reviewed & are unremarkable except as noted in HPI & below. Physical Exam . * General: Alert and oriented, no acute distress * Constitutional: well-developed, well-nourished. * Respiratory: Normal respiratory effort, no distress * Gastrointestinal: No tenderness to palpation, no rigidity or guarding. * Skin: No rash or lesion. * Neurologic: Grossly normal * Musculoskeletal: Left hip surgical dressing CDI, not removed for exam. Otherwise no obvious deformity or overlying skin changes. Diffuse TTP proximal thigh and hip region. Otherwise no specific tenderness of distal thigh, lower leg, foot/ankle. AROM hip flexion intact, moderate pain log roll. AROM foot/ankle intact. Sensation intact plantar/dorsal foot. Brisk capillary refill. Results & Data Results & Data Laboratory Results . Diagnostic Findings . PG Care Time/CCT Total # of Minutes Spent Total Time Spent with Patient: Total time spent is greater than 50% in coordination of care (as documented) at patient's floor/unit and/or counseling patient: Coding Level of Care Code 14733 Post Operative Follow-Up Diagnoses Carcinoma of breast metastatic to bone, unspecified laterality C50.919; C79.51 Laterality: unspecified laterality (1) Breast cancer metastasized to bone Laterality: unspecified laterality Qualified Code(s): C50.919 - Malignant neoplasm of unspecified site of unspecified female breast; C79.51 - Secondary malignant neoplasm of bone
[2024-09-15 07:24] LABS: Hematocrit (blood only) 19.0 % (37.0-47.0); Hemoglobin 6.7 g/dl (12.0-16.0); Mean Corpuscular Hemoglobin 30.3 pg (25.0-34.0); Mean Corpuscular Volume 86.0 fL (80.0-100.0); Platelet Count 145 K/uL (130-400); RDW Standard Deviation 50.4 fL (36.4-46.3); Red Blood Count 2.21 M/uL (4.20-5.40); White Blood Count 4.62 K/ul (4.8-10.8)
[2024-09-15 07:31] LABS: Anion Gap 8.0 (3-11); Blood Urea Nitrogen 25.0 mg/dl (6-23); Calcium 9.6 mg/dl (8.6-10.3); Carbon Dioxide 27.0 mmol/L (21-32); Chloride 101.0 mmol/L (98-107); Creatinine Clr Calc Pharmacy 72.1 ml/min; Glucose 132.0 mg/dl (70-99(Fasting)); Potassium 4.3 mmol/L (3.5-5.1); Sodium 136.0 mmol/L (136-145)
[2024-09-15] MEDS ORDERED: SODIUM CHLORIDE 0.9% 100 ML IV PRN ×2 (08:08→08:20)
--- NOTE | 2024-09-15 08:16 | Hospitalist Progress Note ---
Date of Service September 15, 2024 Assessment & Plan (1) Closed fracture of greater trochanter of left femur: (2) Acute blood loss anemia: (3) Metastatic cancer: (4) Anemia: (5) Cancer related pain: Plan 49 year old female metastatic breast cancer on chronic opiate therapy due to cancer related pain who presented to the ER with left hip pain after falling on August 09. Initial outpatient hip XRs were negative. 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 She has extensive widespread metastatic disease involving the left femur with risk of pathological fracture. Skeletal survey reveals extensive mixed lytic/blastic bony metastatic disease. The degree of lytic metastatic disease places the patient at risk for additional pathologic fractures, greatest in the mid right humeral shaft and the left proximal femur. #Left pathological greater trochanter fracture / Cancer related pain - S/p left troch nail prophylactic fixation on 09/[address] Faustin - Palliative care consulted - continuing her Fentanyl patch and Dilaudid 2-4mg IV q3h PRN for mod-severe pain. Now with Dilaudid WATER SERVICE SUPERVISOR as well given uncontrolled pain postop - PT/OT deferred for now, consider consult postop - pain is uncontrolled at this time, will defer consult for now #Acute blood loss anemia - ABLA with hgb 6.7 postop - will transfuse 1 pRBC now - repeat H&H 2 hours post-transfusion #Metastatic breast cancer - Follows with Dr. Plascencia, on Eribulin #Type 2 diabetes mellitus - HbA1C with AM labs, 7.9 in August - Consult pharmacy for ongoing glycemic control #Normocytic anemia - At baseline, management per outpatient hem/onc VTE Prophylaxis - Lovenox 40mg SQ HS Dispo: Continued inpatient stay in postop period for pain control Ordered blood transfusion Discussed case with palliative care Admission and Anticipated Discharge Date Admission Date: September 13, 2024 Supervising Physician Co-Signing Physician Notes Attending Attestation - Chart reviewed in detail, care plan d/w ERLINDA Colindres. I agree w/ the palma components of her documentation. Appreciate ortho assistance for ORIF of pathological L femur fracture. Appreciate palliative assistance with pain control; agree w/ WATER SERVICE SUPERVISOR dilaudid. Check a 25-OH vit D level while here. Kevyn Eller MD Subjective Patient seen and evaluated at bedside. She reports 7/10 pain primarily in her proximal left LE at this time. She now has a Dilaudid WATER SERVICE SUPERVISOR and says she has used it once about 15 min ago. She is eating lunch and says her appetite is "so-so." She asked for crackers and for her nasal cannula to be switched. I got her crackers and relayed the message to her RN. Yamilka denies any additional complaints or concerns at this time. Emotional support provided during my visit and I encouraged her to ring for any assistance or needs. Physical Exam Physical Exam: General: Lying in bed eating lunch. Mild distress secondary to pain. Nondiaphoretic, well-developed. Not well-nourished. Skin: Warm, dry. Cardiac: Regular rate and rhythm without murmurs gallops or rubs. Pulm: Clear to auscultation bilaterally without wheezes, rales or rhonchi. Normal respiratory effort. 99% on room air. Neuro: A&O x3. No focal neurological deficits. MSK: Left hip surgical dressing in place, clean, dry, intact. Diffuse tenderne ss in proximal LLE. Neurovascularly intact. Results & Data Results & Data Vital Signs (Past 12 Hours) Vital Signs Temp Pulse Pulse Resp BP Pulse Ox O2 Del Method 09/15/24 08:04 105/68 09/15/24 07:45 98.1 F 90 16 90/60 L 98 Room Air 09/15/24 03:00 98.4 F 97 H 18 100/68 97 Room Air 09/14/24 23:38 97.9 F 105 H 18 92/59 L 95 Room Air 09/14/24 22:11 97.3 F L 106 H 16 114/72 99 Room Air 09/14/24 21:00 Room Air Laboratory Results Reviewed CBC Reviewed BMP PG Care Time/CCT Total # of Minutes Spent Total Time Spent with Patient: Total time spent is greater than 50% in coordination of care (as documented) at patient's floor/unit and/or counseling patient: Coding Level of Care Code 26375 SUB INP/OBS CARE 3/50MIN Diagnoses Closed fracture of greater trochanter of left femur S72.112A Acute blood loss anemia D62 Metastatic cancer C79.51 Area of secondary neoplastic involvement: bone Anemia D64.9 Cancer related pain G89.3 (3) Metastatic cancer Area of secondary neoplastic involvement: bone Qualified Code(s): C79.51 - Secondary malignant neoplasm of bone
[2024-09-15] MEDS ORDERED: NALOXONE HCL 0.4 MG/1 ML VIAL/CARP IV PRN (08:32)
--- NOTE | 2024-09-15 08:43 | Communication Note ---
Date of Service: September 15, 2024 Palliative Medicine Brief Note Yamilka is having increased pain postoperatively. Her current PRN medication regimen is not sufficient. Medication review and prior clinic notes indicate that she is using a total of 360 mg per day of oral oxycodone broken down into six doses of 60 mg OxyIR per day leading up to this admission. This is equivalently approximate to 720 mg of oral morphine or 240 mg of IV morphine which translates to roughly 48 mg of IV Dilaudid per day. Adjusting for cross tolerance by ~ 30%, this approximates to 34 mg of IV Dilaudid per day. Will begin a bolus only Dilaudid SPLITTER HEAD of 1 mg every 30 minutes as needed for pain management. If she becomes lethargic, somnolent, please hold the SPLITTER HEAD dose although it is unlikely she will operate the SPLITTER HEAD in this state. She has had prior success with IV Dilaudid and had required. Intermittent bolus only Dilaudid SPLITTER HEAD on prior admissions for similar acute pain crisis. Please do not increase her transdermal fentanyl patch. She has historically been unable to tolerate a dose beyond the 75 g dose - inc weakness, mental fogginess, hypotension. Due to the complexities of her cancer related symptom management, including her G.I. issues, malabsorption, chronic nausea, vomiting, and mobility impairments, we prefer not to escalate the transdermal fentanyl at this time. She is followed by Dr Plascencia in cancer clinic for ongoing breast cancer mgt. TS 22min telephonic no charge submitted/pt not seen by me but will be seen today on rounds by Dania Vigil from my team. Thank you for allowing us to participate in the ongoing care of this patient. Please page with any additional concerns. Pilar Limon DNP Director, Palliative Medicine
[2024-09-15] MEDS: LANTUS PER UNIT CHARGE SQ SCH (09:09)
[2024-09-15] MEDS: HYDROmorphone PCA 30 MG/30 ML IV PRN (10:37)
[2024-09-15] MEDS: SODIUM CHLORIDE 0.9% 1,000 ML IV SCH (10:51)
--- NOTE | 2024-09-15 12:37 | Palliative Care Progress Note ---
Date of Service September 15, 2024 Assessment & Plan (1) Palliative care by specialist: Plan: Palliative care will continue to follow for ongoing pain/symptom management and patient support. (2) Therapeutic opioid-induced constipation (OIC): Plan: not currently an issue. Continue miralax/senna as preventative (3) Weakness generalized: (4) Cancer related pain: (5) Left hip pain: Plan: Pt currently post op day one for prophylactic fixation for Closed fracture of greater trochanter of left femur. Started on Dilaudid ROLLER GOLD LEAF this morning for BTP which pt had reported was not well controlled post operatively. Pt has ongoing pain 7::10 [address]. Per previous Palliaitive care notes: Cancer related pain: * Very severe, complex cancer pain with numerous opioid intolerances/no coverage for long acting and tolerance for TDF limited at 75mcg, cannot tolerate 100mcg d/t hypotension, weakness, mental cloudiness * Recc Dilaudid 2mg IV q2h prn moderate pain and Dilaudid 4mg IV q3h prn severe to very severe pain. * If requiring more frequent dosing OR insuff relief with this regimen, please initiate Dilaudid ROLLER GOLD LEAF bolus only 1mg Q20min prn, NO continuous rate since she remains on TDF * We will help transition her to a regimen to follow [place], but please note the various opioid intolerances and insurance limitations/formulary restrictions outlined in HPI(2) Left hip pain: s/p fall now with Closed fracture of greater trochanter of left femur * CONTINUE: Duragesic 75mcg pacth q72hr ROLLER GOLD LEAF dilaudid 1mg IVP PRN q30min NO continuous rate. Plan as above Admission and Anticipated Discharge Date Admission Date: September 13, 2024 Subjective Patient seen and evaluated at bedside. She reports 7/10 pain primarily in her proximal left LE at this time. She been started on Dilaudid ROLLER GOLD LEAF and says she has used it once 2 or three times this morning without relief. I educated her on use of ROLLER GOLD LEAF and encouraged that she may need multiple doses to get pain under control at first. I encouraged her to use button as needed and revisited her a while later after RN had helped her reposition in bed. Yamilka was more comfortable and denied any additional complaints or concerns at this time. Emotional support provided during my visit and I encouraged her to ring for any assistance or needs. Review of Systems Review of Systems: All systems reviewed & are unremarkable except as noted in Subjective Physical Exam Constitutional: + ill appearing, + frail appearing, coop erative and comfortable bitemp wasting, chemo related alopecia Eyes: PERRL, conjunctivae normal, anicteric sclerae ENMT: external ear and nose normal, oropharynx normal Neck: trachea midline, no thyromegaly Cardiovascular: RRR, no murmur, no edema Gastrointestinal (Abdomen): normal bowel sounds, soft, nontender, no hepatosplenomegaly Musculoskeletal: generalized weakness, R hip tenderness Skin: + turgor decreased and + pallor Neurologic: PERRL, EOMI, accommodation nl, no face palsy, no dysarthria Psychiatric: Orientation: oriented x 3 Affect: + flat affect Results & Data Vital Signs (Past 12 Hours) Vital Signs Temp Pulse Pulse Resp BP Pulse Ox O2 Del Method 09/15/24 12:11 36.6 C 98 H 16 98/66 L 09/15/24 10:57 36.8 C 90 16 103/68 94 Room Air 09/15/24 08:04 105/68 09/15/24 07:45 36.7 C 90 16 90/60 L 98 Room Air 09/15/24 03:00 36.9 C 97 H 18 100/68 97 Room Air Laboratory Results Abnormal lab results 09/14/24 09/14/24 09/14/24 Range/Units 14:52 21:53 21:55 WBC (4.8-10.8) K/ul RBC (4.20-5.40) M/uL Hgb (12.0-16.0) g/dl Hct (37.0-47.0) % RDW Std Deviation (36.4-46.3) fL RDW Coeff of Joshua (11.5-14.5) % MPV (9.4-12.4) fL BUN (6-23) mg/dl BUN/Creatinine Ratio (10-20) Glucose (70-99(Fasting)) mg/dl POC Glucose 208 H 361 H* 347 H* (70-99) mg/dl Crossmatch 09/15/24 09/15/24 09/15/24 Range/Units 06:44 07:53 08:39 WBC 4.62 L (4.8-10.8) K/ul RBC 2.21 L (4.20-5.40) M/uL Hgb 6.7 L* (12.0-16.0) g/dl Hct 19.0 L* (37.0-47.0) % RDW Std Deviation 50.4 H (36.4-46.3) fL RDW Coeff of Joshua 16.1 H (11.5-14.5) % MPV 9.1 L (9.4-12.4) fL BUN 25 H (6-23) mg/dl BUN/Creatinine Ratio 23.1 H (10-20) Glucose 132 H (70-99(Fasting)) mg/dl POC Glucose 140 H (70-99) mg/dl Crossmatch See Detail 09/15/24 Range/Units 11:22 WBC (4.8-10.8) K/ul RBC (4.20-5.40) M/uL Hgb (12.0-16.0) g/dl Hct (37.0-47.0) % RDW Std Deviation (36.4-46.3) fL RDW Coeff of Joshua (11.5-14.5) % MPV (9.4-12.4) fL BUN (6-23) mg/dl BUN/Creatinine Ratio (10-20) Glucose (70-99(Fasting)) mg/dl POC Glucose 127 H (70-99) mg/dl Crossmatch Diagnostic Findings Femur CT 09/13/24 20:45 Exam(s): CT EXTREMITY LEFT LOWER Without Contrast EXAM: CT Left Lower Extremity Without Intravenous Contrast CLINICAL HISTORY: pain, fall, cancer. TECHNIQUE: Axial computed tomography images of the left lower extremity without intravenous contrast. CTDI is 24.91 mGy and DLP is 1300.17 mGy-cm. Automated exposure control was utilized for the study. A dose lowering technique was utilized adhering to the principles of ALARA. COMPARISON: No relevant prior studies available. FINDINGS: Bones/joints: Diffuse extensive osseous metastatic disease throughout the included skeletal structures with near complete resorption of the posterior column of the acetabulum and near complete resorption of the base of the left femoral neck. There is a nondisplaced fracture involving the lateral aspect of the left greater trochanter, best appreciated on coronal reformatted imaging. No dislocation. Soft tissues: Unremarkable. IMPRESSION: Extensive osseous metastatic disease. There is a nondisplaced fracture involving the lateral aspect of the left greater trochanter, best appreciated on coronal reformatted imaging. The remaining osseous structures are intact; however, there is near complete resorption at the base of the left femoral neck. The patient is considered high risk for pathologic fracture. Electronically signed by: Jeovany Ramirez MD 09/13/24 23:02 PM Hip X-Ray 09/14/24 00:00 FL hip LT 2-3V CLINICAL HISTORY: LEFT HIPfemoral nail COMPARISON STUDY: None pertinent FLUOROSCOPY TIME: 93.7 seconds FLUOROSCOPY IMAGES: 5 EXPOSURE DOSE: 21.91 mGy FINDINGS: Image guidance provided for femoral nail IMPRESSION: Refer to procedural report for evaluation based on real-time fluoroscopic observation. ACT 112: Negative or not required by law. Electronically signed by: Kyra Augustin M.D. 09/14/2024 3:47 PM Skeletal Survey 09/14/24 08:25 SKELETAL SURVEY CLINICAL HISTORY: Breast cancer. Metastatic bone disease. COMPARISON STUDY: Nuclear bone scan dated 08/14/2024. CT scan of the chest, abdomen, and pelvis dated 08/14/2024. CT scan of the left femur dated 09/13/2024. FINDINGS: 18 radiographs from a skeletal survey are presented as part of a skeletal survey. Again seen are findings of extensive/diffuse mixed lytic/blastic bony metastatic disease. This has not appreciably changed from the recent nuclear bone scan and staging CT scans. There are numerous chronic/healed bilateral rib fractures. There is also a subacute/healing pathologic fracture of the manubrium. A large and predominantly lytic lesion in the right humeral shaft may place the patient risk for additional pathologic fracture. Fracture through the greater trochanter of the left proximal femur is again noted. Extensive lytic disease in the left proximal femur may place the patient risk for additional pathologic fracture. No significant spinal compression fracture is identified by x-ray. A left subclavian central venous infusion port is in place. The patient is edentulous. Cholecystectomy clips are noted in the right upper quadrant. Mesh material and additional clips project over the pelvis. Foci of parenchymal scarring are noted in both lungs. No airspace consolidation or pleural effusion identified. There is no bowel obstruction. IMPRESSION: 1. Extensive mixed lytic/blastic bony metastatic disease is similar in appearance to recent prior studies. 2. Fracture is again seen through the greater trochanter of the left proximal femur. 3. There is a subacute/healing pathologic fracture of the manubrium. 4. Note that the degree of lytic metastatic disease place the patient risk for additional pathologic fractures. This appears greatest in the mid right humeral shaft and the left proximal femur. Electronically signed by: Brant Evans M.D. 09/14/2024 11:00 AM Femur X-Ray 09/14/24 16:15 INDICATION: Postoperative evaluation. Pain TECHNIQUE: 2 views of the left femur were obtained. COMPARISON: None FINDINGS: Interval placement of an intramedullary evita and interlocking screws in the left femur. No displaced acute osseous process is identified. Expected postsurgical changes of the soft tissues. Redemonstrated diffuse sclerotic and lytic metastatic disease. IMPRESSION: Interval placement of an intramedullary evita and interlocking screws in the left femur with expected postsurgical changes of the soft tissues. Electronically signed by Jack Jordan 09-14-2024 6:11 PM Medications Administered Current Inpatient Medications Dextrose (Dextrose 50% 50 Ml Syringe) 25 - 50 ml IV UD PRN; Protocol PRN Reason: Hypoglycemia Protocol Stop: 10/14/24 02:02 Enoxaparin Sodium (Enoxaparin Inj 40 Mg/0.4 Ml Syr) 40 mg SQ QPM JESSE Stop: 10/14/24 20:59 Last Admin: 09/14/24 20:00 Dose: 40 mg Fentanyl (Fentanyl 75 Mcg/Hr Tdsy) 1 patch TD Q72H JESSE Stop: 09/30/24 08:59 Glucagon (Glucagon For Inj 1 Mg Vial) 1 mg SQ UD PRN; Protocol PRN Reason: Hypoglycemia Protocol Stop: 10/14/24 02:02 Glucose (Glucose 40% Gel 15 Gm Tube) 15 - 30 gm PO UD PRN; Protocol PRN Reason: Hypoglycemia Protocol Stop: 10/14/24 02:02 Glucose (Glucose 10 Tab/Tube) 4 - 8 tab PO UD PRN; Protocol PRN Reason: Hypoglycemia Protocol Stop: 10/14/24 02:02 Heparin Sodium (Porcine) (Heparin 100 Unit/Ml 5ml Flush) 5 ml FLUSH PRN PRN PRN Reason: Flush Stop: 10/14/24 03:40 Hydromorphone HCl (Hydromorphone Inj 2 Mg/Ml Syr/Vial) 2 mg IV Q3H PRN PRN Reason: Moderate Pain (Scale 4, 5, 6) Stop: 09/28/24 02:12 Hydromorphone HCl (Hydromorphone Inj 2 Mg/Ml Syr/Vial) 4 mg IV Q3H PRN PRN Reason: Severe Pain (Scale 7, 8, 9,10) Stop: 09/28/24 02:18 Last Admin: 09/15/24 09:59 Dose: 4 mg Hydromorphone HCl (Hydromorphone Chemical Lab Technician 30 Mg/30 Ml) 30 mg IV PRN PRN; Protocol PRN Reason: ROLLER GOLD LEAF Pain Titration Stop: 09/29/24 08:31 Last Admin: 09/15/24 10:37 Dose: 30 mg Hydromorphone HCl (Hydromorphone Bolus From Chemical Lab Technician) 1 mg IV Q30M PRN PRN Reason: ROLLER GOLD LEAF pain relief or activity Stop: 09/29/24 08:31 Promethazine HCl (Phenergan) 12.5 mg in 50.5 mls @ 202 mls/hr IV Q6H PRN PRN Reason: Nausea And Vomiting Stop: 10/14/24 02:02 Last Infusion: 09/14/24 08:18 Dose: Infused Sodium Chloride (Nss) 100 mls @ 15 mls/hr IV .Q6H40M PRN PRN Reason: For Transfusion Duration Stop: 09/15/24 16:08 Sodium Chloride (Nss) 100 mls @ 15 mls/hr IV .Q6H40M PRN PRN Reason: For Transfusion Duration Stop: 09/15/24 16:20 Sodium Chloride (Nss) 1,000 mls @ 15 mls/hr IV .Q24H [facility] Stop: 09/29/24 08:33 Last Admin: 09/15/24 10:51 Dose: 15 mls/hr Insulin Aspart (Insulin Aspart Per Unit Charge) 0 units SC ACHS [facility] Stop: 10/14/24 02:59 Last Admin: 09/15/24 08:30 Dose: Not Given Insulin Glargine (Lantus Per Unit Charge) 0 units SQ BID JESSE; Protocol Stop: 10/15/24 08:59 Last Admin: 09/15/24 09:09 Dose: 5 units Miscellaneous (Carbohydrates For Hypoglycemia ) 15 - 30 gm PO UD PRN PRN Reason: Hypoglycemia Protocol Stop: 10/14/24 02:02 Miscellaneous (Fentanyl Patch Remove & Waste) 1 each N/A Q3D@0859 [facility] Stop: 10/16/24 08:58 Miscellaneous (Check Fentanyl Patch Placement) 1 each N/A QS [facility] Stop: 10/14/24 02:02 Last Admin: 09/15/24 09:00 Dose: 1 each Miscellaneous Information (Pharmacy Glycemic Mgmt Consult) 1 each N/A UD PRN PRN Reason: Consult Stop: 10/14/24 02:02 Naloxone HCl (Naloxone Hcl 0.4 Mg/1 Ml Vial/Carp) 0.1 mg IV Q5M PRN PRN Reason: Oversedation/Resp Depression Stop: 10/14/24 02:02 Naloxone HCl (Naloxone Hcl 0.4 Mg/1 Ml Vial/Carp) 0.1 mg IV Q5M PRN; Protocol PRN Reason: Oversedation/Resp Depression Stop: 09/29/24 08:31 Ondansetron HCl (Ondansetron Inj 2 Mg/Ml 2 Ml Vial) 4 mg IV Q4H PRN PRN Reason: Nausea Stop: 10/14/24 02:02 Last Admin: 09/14/24 06:25 Dose: 4 mg PG Care Time/CCT Total # of Minutes Spent Total Time Spent with Patient: Total time spent is greater than 50% in coordination of care (as documented) at patient's floor/unit and/or counseling patient: C[place] [address] SUB INP/OBS CARE 3/50MIN Patient Type Established History Detailed Exam Detailed Medical Decision Making Moderate Complexity Diagnoses Palliative care by specialist Z51.5 Therapeutic opioid-induced constipation (OIC) K59.03; T40.2X5A Weakness generalized R53.1 Cancer related pain G89.3 Left hip pain M25.552
--- NOTE | 2024-09-15 14:49 | Pharmacy Report ---
Pharmacy Glycemic Short Note 2 - Date of Service September 15, 2024 - Glycemic Short BSG Results (Last 24 hours): 09/14/24 09/14/24 09/14/24 14:52 21:53 21:55 Glucose POC Glucose 208 H 361 H* 347 H* 09/15/24 09/15/24 09/15/24 06:44 07:53 11:22 Glucose 132 H POC Glucose 140 H 127 H OUTPATIENT ANTIDIABETIC REGIMEN: * Lantus 10 units SQ BID * NovoLOG SSI TIDM * HbA1c 7.9% (07/13/24) ASSESSMENT: 09/15 * Yamilka received 48 units of insulin yesterday (25 were basal) * Fasting BSG this AM within goal range, will continue with a basal scale at this time. * NovoLog loosened back to previous parameters as steroid effects wearing off at this time. 09/14: * Yamilka is a 49 year old female admitted with left hip fracture and a history of breast cancer metastasized to bone and type 2 diabetes mellitus. Pharmacy has been consulted to assist with glycemic management while inpatient. * NPO this AM for hip surgery, conservative basal insulin started at 50% reported home basal dosage. Currently in procedure, but dexamethasone 4mg IV pulled preoperatively. Will give full home basal dose after procedure to help cover for steroid induced hyperglycemia. * NovoLog at a weight based stress of 3 with steroids administration PLAN FOR INPATIENT GLYCEMIC CONTROL: * Hold outpatient oral diabetes medications * Basal insulin * Lantus 0-10 units SQ BID (see eMAR for additional details) * Bolus insulin * NovoLog per scale ACHS or Q6hrs while NPO * Goal Range: Low 110 mg/dL - High 140 mg/dL * Correction Factor: 25 mg/dL/unit * Nutritional / Prandial insulin per carb ratio of 1 unit per 9 grams CHO consumed
[2024-09-15 20:44] LABS: Hematocrit (blood only) 21.2 % (37.0-47.0); Hemoglobin 7.4 g/dl (12.0-16.0)
[2024-09-16 07:11] LABS: Hematocrit (blood only) 20.1 % (37.0-47.0); Hemoglobin 7.1 g/dl (12.0-16.0); Mean Corpuscular Hemoglobin 30.2 pg (25.0-34.0); Mean Corpuscular Volume 85.5 fL (80.0-100.0); Platelet Count 164 K/uL (130-400); RDW Standard Deviation 50.4 fL (36.4-46.3); Red Blood Count 2.35 M/uL (4.20-5.40); White Blood Count 4.00 K/ul (4.8-10.8)
--- NOTE | 2024-09-16 07:39 | Orthopedic Progress Note ---
Date of Service September 16, 2024 Assessment & Plan (1) Closed fracture of greater trochanter of left femur: Overall she is doing about as well as expected. She is having some increased pain from the surgery and the placement of the evita. However, the surgery went very well. She can be full weightbearing on the left leg. Hopefully this will help alleviate some of her hip symptoms. She has no restrictions from our standpoint. She can follow-up with orthopedics in 2 weeks. Will remove the tere then. Sharon Prather was seen and examined at bedside this morning. She is having a little bit more pain today. It sound like mostly surgical pain. She has been up and ambulating. She has no complaints.. Review of Systems All systems reviewed & are unremarkable except as noted in HPI & below. Physical Exam On physical exam of the left hip, the dressings are clean and dry. Her leg is out full extension. She is active dorsiflexion plantarflexion of her left ankle.. Results & Data Results & Data Laboratory Results . Diagnostic Findings . PG Care Time/CCT Total # of Minutes Spent Total Time Spent with Patient: Total time spent is greater than 50% in coordination of care (as documented) at patient's floor/unit and/or counseling patient: Coding Level of Care Code 48228 Post Operative Follow-Up Diagnoses Closed fracture of greater trochanter of left femur S72.112A
[2024-09-16] MEDS: HYDROmorphone Bolus from PCA IV PRN (08:09)
[2024-09-16] MEDS: HEPARIN 100 UNIT/ML 5ML FLUSH FLUSH PRN (09:30)
[2024-09-16] MEDS ORDERED: SODIUM CHLORIDE 0.9% 100 ML IV PRN (09:32)
--- NOTE | 2024-09-16 10:37 | Hospitalist Progress Note ---
"Date of Service September 16, 2024 Assessment & Plan (1) Closed fracture of greater trochanter of left femur: (2) Acute blood loss anemia: (3) Metastatic cancer: (4) Anemia: (5) Cancer related pain: Plan 49 year old female metastatic breast cancer on chronic opiate therapy due to cancer related pain who presented to the ER with left hip pain after falling on August 09. Initial outpatient hip XRs were negative. Initially had mildmoderate left hip pain that was tolerable and she was able to ambulate, however for 2-3 days JET PILOT the pain became significantly worse both at rest and with ambulation; she had been avoiding ambulation due to the pain. She has extensive widespread metastatic disease involving the left femur with risk of pathological fracture. Skeletal survey reveals extensive mixed lytic/blastic bony metastatic disease. The degree of lytic metastatic disease places the patient at risk for additional pathologic fractures, greatest in the mid right humeral shaft and the left proximal femur. #Left pathological greater trochanter fracture | Cancer related pain - S/p left troch nail prophylactic fixation on 09/[address] Faustin - Palliative care consulted - continuing her Fentanyl patch and Dilaudid 2-4mg IV q3h PRN for mod-severe pain. Now with Dilaudid TOUR BUS DRIVER/GUIDE as well given uncontrolled pain postop - PT/OT consulted but evaluation has been deferred due to uncontrolled pain, continuing to follow #Acute blood loss anemia | H/o chronic normocytic anemia - can follow-up with outpatient heme/onc as scheduled - ABLA secondary to surgical intervention with hgb 6.7 postop, s/p 1 unit pRBC 09/14 with post-transfusion H&H 7.4 - Hgb 7.1 on AM labs today - suspect will drop further tomorrow, so will transfuse another 1 unit pRBC now - repeat H&H 2 hours post-transfusion improved to 7.5 #Metastatic breast cancer - Follows with Dr. Plascencia, on Eribulin #Type 2 diabetes mellitus - HbA1C with AM labs, 7.9 in August - Consult pharmacy for ongoing glycemic control VTE Prophylaxis - Lovenox 40mg SQ HS Dispo: Continued inpatient stay in postop period for pain control Ordered blood transfusion Admission and Anticipated Discharge Date Admission Date: September 13, 2024 Supervising Physician Co-Signing Physician Notes Attending Attestation - Chart reviewed in detail, care plan d/w ERLINDA Colindres. I agree w/ the palma components of her documentation. Agree with additional PRBCs today (1 unit). May need to adjust settings on TOUR BUS DRIVER/GUIDE dilaudid for optimal pain control. Consider dose increase in fentanyl patch strength -- has been on 75mcg dose for quite some time. Check a 25-OH vit D level while here. Kevyn Eller MD Subjective Patient seen and evaluated at bedside. She reports pain in her left hip/LE. Her pain is tolerable when at rest, but severe with any movement. RN reports she is a heavy 3 assist when getting OOB to use the bathroom. Yamilka and I discussed using a Nicole catheter, but she declines at this time. We discussed using a Purewick so she could decide whether or not she wanted to get OOB when needing to urinate, and she was agreeable to the Purewick. We also discussed her getting another unit of blood today. She reports she is using her Dilaudid TOUR BUS DRIVER/GUIDE as needed. She slept fairly well overnight and is tolerating her diet. She states she is tired now and plans to take a nap. No additional complaints or concerns at this time. Physical Exam Physical Exam: General: Mild distress secondary to pain with movements. Nondiaphoretic, well- developed. Not well-nourished. Skin: Warm, dry. Cardiac: Regular rate and rhythm without murmurs gallops or rubs. Pulm: Clear to auscultation bilaterally without wheezes, rales or rhonchi. Normal respiratory effort. 95% on 2 L NC. Neuro: A&O x3. No focal neurological deficits. MSK: Left hip surgical dressing in place, clean, dry, intact. No significant bruising or hematoma noted around postop site. Diffuse tenderness in proximal LLE. Neurovascularly intact. Results & Data Results & Data Vital Signs (Past 12 Hours) Vital Signs Temp Pulse Pulse Resp BP Pulse Ox O2 Del Method 09/16/24 07:09 99.3 F 104 H 16 91/62 L 95 Nasal Cannula 09/16/24 03:08 100.2 F H 111 H 20 107/66 95 Room Air 09/15/24 23:00 98.2 F 109 H 17 103/60 93 Room Air O2 Flow Rate 09/16/24 07:09 2 09/16/24 03:08 09/15/24 23:00 Laboratory Results Reviewed CBC PG Care Time/CCT Total # of Minutes Spent Total Time Spent with Patient: Total time spent is greater than 50% in coordination of care (as documented) at patient's floor/unit and/or counseling patient: Coding Level of Care Code 50191 SUB INP/OBS CARE 3/50MIN Diagnoses Closed fracture of greater trochanter of left femur S72.112A Acute blood loss anemia D62 Metastatic cancer C79.51 Area of secondary neoplastic involvement: bone Anemia D64.9 Cancer related pain G89.3 (3) Metastatic cancer Area of secondary neoplastic involvement: bone Qualified Code(s): C79.51 - Secondary malignant neoplasm of bone"
[2024-09-16 16:19] LABS: Hematocrit (blood only) 21.3 % (37.0-47.0); Hemoglobin 7.5 g/dl (12.0-16.0)
[2024-09-16] MEDS: NYSTATIN POWDER 15GM BTL EXT SCH (20:46)
[2024-09-17 05:46] LABS: Hematocrit (blood only) 23.2 % (37.0-47.0); Hemoglobin 8.0 g/dl (12.0-16.0); Mean Corpuscular Hemoglobin 29.6 pg (25.0-34.0); Mean Corpuscular Volume 85.9 fL (80.0-100.0); Platelet Count 153 K/uL (130-400); RDW Standard Deviation 51.5 fL (36.4-46.3); Red Blood Count 2.70 M/uL (4.20-5.40); White Blood Count 3.03 K/ul (4.8-10.8)
[2024-09-17] MEDS ORDERED: REMOVE TRANSDERM-SCOP PATCH ONE (06:00)
[2024-09-17] MEDS: LANTUS PER UNIT CHARGE SC SCH (09:56)
--- NOTE | 2024-09-17 10:10 | Hospitalist Progress Note ---
"Date of Service September 17, 2024 Assessment & Plan (1) Closed fracture of greater trochanter of left femur: (2) Acute blood loss anemia: (3) Metastatic cancer: (4) Anemia: (5) Cancer related pain: Plan 49 year old female metastatic breast cancer on chronic opiate therapy due to cancer related pain who presented to the ER with left hip pain after falling on August 09. Initial outpatient hip XRs were negative. 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 She has extensive widespread metastatic disease involving the left femur with risk of pathological fracture. Skeletal survey reveals extensive mixed lytic/blastic bony metastatic disease. The degree of lytic metastatic disease places the patient at risk for additional pathologic fractures, greatest in the mid right humeral shaft and the left proximal femur. #Left pathological greater trochanter fracture | Cancer related pain - S/p left troch nail prophylactic fixation on 09/[address] Faustin - Palliative care consulted - continuing her Fentanyl patch and Dilaudid 2-4mg IV q3h PRN for mod-severe pain. Now with Dilaudid CUSTOMER SUCCESS ASSOCIATE as well given uncontrolled pain postop - PT/OT consulted. PT recommending SNF at this time, but will continue to work with Yamilka while inpatient and see how she progresses. Her goal is to return home with her prior arrangements - Vit D level added to AM labs. Level was undetectable in January 2023 #Acute blood loss anemia | H/o chronic normocytic anemia - can follow-up with outpatient heme/onc as scheduled - ABLA secondary to surgical intervention with hgb 6.7 postop, now s/p 2 unit pRBC 09/14 and 09/15 - Hgb stable at 8.0 today - Repeat CBC with AM labs #Metastatic breast cancer - Follows with Dr. Plascencia, on Eribulin #Type 2 diabetes mellitus - HbA1C with AM labs, 7.9 in August - Consult pharmacy for ongoing glycemic control VTE Prophylaxis - Lovenox 40mg SQ HS Dispo: Continued inpatient stay in postop period for pain control and determining rehab vs home. Palliative care to have goals of care conversation with Yamilka on 09/18 Admission and Anticipated Discharge Date Admission Date: September 13, 2024 Supervising Physician Co-Signing Physician Notes Attending Attestation - Chart reviewed in detail, care plan d/w ERLINDA Colindres. I agree w/ the palma components of her documentation. Kevyn Eller MD Subjective Patient seen and evaluated at bedside. She appears to be in better spirits today. She reports that her LLE remains painful as expected but is tolerable with her Dilaudid CUSTOMER SUCCESS ASSOCIATE. She slept well last night. Her appetite is fair. I h elped reposition her in bed, no other complaints or concerns at this time. Physical Exam Physical Exam: General: No acute distress at this time; pain control seems improved. Nondiaphoretic, well-developed. Not well-nourished. Skin: Warm, dry. Cardiac: Regular rate and rhythm without murmurs gallops or rubs. Pulm: Clear to auscultation bilaterally without wheezes, rales or rhonchi. Normal respiratory effort. 99% on 2 L NC. Neuro: A&O x3. No focal neurological deficits. MSK: Left hip surgical dressing in place, clean, dry, intact. No significant bruising or hematoma noted around postop site. Diffuse tenderness in proximal LLE. Neurovascularly intact. Results & Data Results & Data Vital Signs (Past 12 Hours) Vital Signs Temp Pulse Resp BP Pulse Ox O2 Del Method O2 Flow Rate 09/17/24 07:40 98.8 F 95 H 16 113/72 99 Nasal Cannula 2 09/17/24 03:04 98.2 F 92 H 14 108/71 100 Nasal Cannula 2 09/16/24 23:03 97.9 F 101 H 14 111/71 99 Nasal Cannula 2 Laboratory Results Reviewed CBC PG Care Time/CCT Total # of Minutes Spent Total Time Spent with Patient: Total time spent is greater than 50% in coordination of care (as documented) at patient's floor/unit and/or counseling patient: Coding Level of Care Code 39832 SUB INP/OBS CARE 2/35MIN Diagnoses Closed fracture of greater trochanter of left femur S72.112A Acute blood loss anemia D62 Metastatic cancer C79.51 Area of secondary neoplastic involvement: bone Anemia D64.9 Cancer related pain G89.3 (3) Metastatic cancer Area of secondary neoplastic involvement: bone Qualified Code(s): C79.51 - Secondary malignant neoplasm of bone"
[2024-09-18 06:51] LABS: Hematocrit (blood only) 21.9 % (37.0-47.0); Hemoglobin 7.6 g/dl (12.0-16.0); Mean Corpuscular Hemoglobin 29.6 pg (25.0-34.0); Mean Corpuscular Volume 85.2 fL (80.0-100.0); Platelet Count 182 K/uL (130-400); RDW Standard Deviation 49.1 fL (36.4-46.3); Red Blood Count 2.57 M/uL (4.20-5.40); White Blood Count 2.58 K/ul (4.8-10.8)
[2024-09-18] MEDS: POLYETHYLENE (MIRALAX) 17 GM PACK PO SCH (08:51)
--- NOTE | 2024-09-18 09:01 | Radiation Oncology Progress Nt ---
Date of Service September 18, 2024 Assessment & Plan (1) Metastatic cancer: Plan: 49-year-old female with metastatic breast carcinoma. Hospitalized with pathologic fracture left trochanter. She underwent placement of left trochanteric nail on 09/14/2024. She is steadily recovering. She states that she is now able to transfer more easily. She continues on Dilaudid ACCOUNTING AUDITOR pump. She states that her spirits are good and she is tolerating her physical therapy well. We have discussed the possibility of postoperative radiation therapy to the hip. She is in favor with undergoing treatment at some point. She feels she does need more time for recovery from her surgery and improvement in her mobility. We will continue to follow her in the electronic medical record. We will reassess again if still hospitalized Wednesday. We discussed returning to her office and receiving treatment after discharge. If she would be discharged we will call her and set up a follow-up appointment with CT simulation. Discussion of treatment with 1 or possibly 5 fractions of therapy. Admission and Anticipated Discharge Date Admission Date: September 13, 2024 Radiation History Diagnosis: 10/2015. Breast cancer. 2021. Metastatic breast cancer. Treatment: 07/15/2016. Status post completion of radiation therapy. She received 6640 cGy. Endocrine refractory after zoladex/anastrozole >> fulvestrant/palbociclib >> exemestane/everolimus >> repeat fulvestrant/palbociclib Also with evolving injection site reactions to the fulvestrant 02/05/2022. Radiation therapy stopped. She received 9 of a planned 10 fractions. 2700 cGy. Patient missed multiple appointments and then stopped. Fulvestrant/palbociclib therapy discontinued as of 04/15/2022 Weekly low-dose paclitaxel x 7 doses 05/20/2022 - 07/01/2022, discontinued b/o excessive neurotoxicity Capecitabine start 08/14/2022 as 2500 mg (1000 mg/M2) po bid days 1-14 of a 21- day cycle Stopped after 2 cycles by the patient because of unacceptable diarrhea Gemcitabine started 12/10/2022 with "day 8" delayed until 12/24/2022 but ongoing significant nausea and vomiting in the interim since 01/20/2023. Patient stopped radiation therapy. She had received 4 of 5 fractions. She received 1600 cGy. Treatment given to the right ribs. 04/26/2023-07/12/2023. Eribulin. 09/13/2023. Plans to restart Erbulin. 10/11/2023. Status post completion of radiation therapy to the right femur. She received 2000 cGy. Treatment given in 5 fractions. 10/18/2023. Restart Eribulin. Physical Exam Physical Exam: Resting comfortably in bed. No apparent distress. Receiving treatment with Dilaudid ACCOUNTING AUDITOR pump. Constitutional: WD/WN, vitals as above Neck: trachea midline, no thyromegaly Respiratory: normal respiratory effort Results & Data Vital Signs (Past 12 Hours) Vital Signs Temp Pulse Pulse Pulse Resp BP Pulse Ox 09/18/24 08:06 36.6 C 82 19 100/60 98 09/18/24 03:45 36.7 C 86 14 108/70 98 09/17/24 23:40 36.8 C 88 18 108/75 99 O2 Del Method O2 Flow Rate 09/18/24 08:06 Nasal Cannula 09/18/24 03:45 Room Air 09/17/24 23:40 Nasal Cannula 2 PG Care Time/CCT Total # of Minutes Spent Total Time Spent: 25 Total Time Spent with Patient: Total time spent is greater than 50% in coordination of care (as documented) at patient's floor/unit and/or counseling patient: Coding [place] [address] SUB INP/OBS CARE 03/25MIN Patient Type Established History Problem Focused Exam Problem Focused Diagnoses Metastatic cancer C79.51 Area of secondary neoplastic involvement: bone (1) Metastatic cancer Area of secondary neoplastic involvement: bone Qualified Code(s): C79.51 - Secondary malignant neoplasm of bone
--- NOTE | 2024-09-18 10:17 | Pharmacy Report ---
Pharmacy Glycemic Short Note 2 - Date of Service September 18, 2024 - Glycemic Short BSG Results (Last 24 hours): 09/17/24 09/17/24 09/17/24 11:36 16:18 20:32 POC Glucose 180 H 125 H 116 H 09/18/24 07:50 POC Glucose 114 H OUTPATIENT ANTIDIABETIC REGIMEN: * Lantus 10 units SQ BID * NovoLOG SSI TIDM * HbA1c 7.9% (07/13/24) ASSESSMENT: 09/18/24: * Blood sugars have been reasonably controlled over past 48 hours * Anticipating only minor changes ongoing 09/15 * Yamilka received 48 units of insulin yesterday (25 were basal) * Fasting BSG this AM within goal range, will continue with a basal scale at this time. * NovoLog loosened back to previous parameters as steroid effects wearing off at this time. 09/14: * Yamilka is a 49 year old female admitted with left hip fracture and a history of breast cancer metastasized to bone and type 2 diabetes mellitus. Pharmacy has been consulted to assist with glycemic management while inpatient. * NPO this AM for hip surgery, conservative basal insulin started at 50% reported home basal dosage. Currently in procedure, but dexamethasone 4mg IV pulled preoperatively. Will give full home basal dose after procedure to help cover for steroid induced hyperglycemia. * NovoLog at a weight based stress of 3 with steroids administration PLAN FOR INPATIENT GLYCEMIC CONTROL: * Hold outpatient oral diabetes medications * Basal insulin * Lantus 5 units SC BID * Bolus insulin * NovoLog per scale ACHS or Q6hrs while NPO * Goal Range: Low 120 mg/dL - High 160 mg/dL * Correction Factor: 30 mg/dL/unit * Nutritional / Prandial insulin per carb ratio of 1 unit per 10 grams CHO consumed
[2024-09-18] MEDS: ERGOCALCIFEROL 1250 MCG (50,000 UNITS) CAP PO ONE (12:23)
[2024-09-18] MEDS ORDERED: HYDROmorphone Bolus from PCA IV PRN (13:22)
--- NOTE | 2024-09-18 17:36 | Hospitalist Progress Note ---
Date of Service September 18, 2024 Assessment & Plan (1) 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: (2) Closed fracture of greater trochanter of left femur: (3) Acute blood loss anemia: (4) Cancer related pain: (5) Vitamin D deficiency: (6) Breast cancer metastasized to bone: (7) DM type 2 (diabetes mellitus, type 2): (8) Therapeutic opioid-induced constipation (OIC): Plan 49yo female with stage 4 breast cancer (extensive mets to bone) on chronic opiate therapy due to cancer related pain. Presented to the ER with left hip pain which has been present since falling on August 09. Initial outpatient hip x-rays were negative. Pain worsened over several weeks. Admitted from 08/20 to 08/23 due to pain in her L shoulder and L knee pain; dx with left subacute pathological fracture of proximal fibula, possible nondisplaced fracture of distal left clavicle, and acute fractures anterior 3rd/4th ribs. Skeletal survey during this admission revealed extensive mixed lytic/blastic bony metastatic disease in numerous locations. #Left pathological greater trochanter fracture due to neoplastic disease [breast cancer] - - s/p left troch nail prophylactic fixation on 09/[address] Tai Faustin - Palliative care consulted for assistance with pain management -cont Fentanyl patch 75mcg q3days -cont Dilaudid SHAREPOINT ADMINISTRATOR; I spoke with Dr Limon today who has worked with Ms Vega for several years; given that the current dosing of her Dilaudid is not helping her pain Dr Limon will increase the demand dosing today - cont PT/OT -pt's goal is to return home with her family who provide considerable help to her - Vit D level severely low - will replace #Acute blood loss anemia in the setting of chronic disease anemia - - ABLA 2nd to recent surgical intervention of her pathological hip fracture - s/p 2 units pRBCs - 09/14, 09/15 - Hb 7.6 today - repeat H/H in am #Stage 4 breast cancer - - [facility] - on Eribulin - Follows with Dr Limon with the palliative care clinic #Type 2 diabetes mellitus - - HbA1C 7.9% - pharmacy glycemic team providing DM oversight; appreciate their assistance #vitamin D deficiency - - level 7 - ergocalciferol 37384 units weekly x 8 weeks #opiate-induced constipation - - add miralax BID - dulcolax x 1 now #VTE Prophylaxis - - Lovenox 40mg daily care d/w Dr Limon by phone today Admission and Anticipated Discharge Date Admission Date: September 13, 2024 Subjective patient lying in bed during the visit reports ongoing pain in her left hip/thigh region denies pain in other locations denies any dyspnea no stool in several days but denies abd pain or N/V staff report she uses the dilaudid SHAREPOINT ADMINISTRATOR about 1x/hour patient reports that the dilaudid IV "doesn't really help the pain" when asked about her spirits she states she is "doing ok" she talks about her family and siblings who provide lots of support her intention is to return home at discharge with family support eating/drinking fair-good Review of Systems Review of Systems: CV - no chest pain pulm - no dyspnea at rest GI - constipation Physical Exam Physical Exam: gen - NAD, lying in bed, pleasant mouth - MMM neck - no JVD heart - RRR, s1 s2, no murmur lungs - CTA b/l abd - soft NT ND BS+ ext - mild-moderate edema left thigh; dressings intact left lateral thigh; no edema right leg; pulses b/l feet 2+ psych - a/o x 3 Results & Data Results & Data Vital Signs (Past 12 Hours) Vital Signs Temp Pulse Pulse Resp BP Pulse Ox O2 Del Method 09/18/24 14:34 36.9 C 93 H 18 100/66 100 Nasal Cannula 09/18/24 12:16 36.8 C 83 17 111/71 99 Nasal Cannula 09/18/24 08:06 36.6 C 82 19 100/60 98 Nasal Cannula 09/18/24 08:00 Nasal Cannula O2 Flow Rate 09/18/24 14:34 2 09/18/24 12:16 09/18/24 08:06 09/18/24 08:00 2 Laboratory Results Laboratory Results - last 24 hr 09/18/24 09/18/24 09/18/24 06:08 07:50 11:17 WBC 2.58 L RBC 2.57 L Hgb 7.6 L Hct 21.9 L MCV 85.2 MCH 29.6 MCHC 34.7 RDW Std Deviation 49.1 H RDW Coeff of Joshua 16.1 H Plt Count 182 MPV 9.4 POC Glucose 114 H 153 H 25-OH Vitamin D Total 7.9 L PG Care Time/CCT Total # of Minutes Spent Total Time Spent with Patient: Total time spent is greater than 50% in coordination of care (as documented) at patient's floor/unit and/or counseling patient: Coding Level of Care Code 32573 SUB INP/OBS CARE 2/35MIN Diagnoses 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 M84.559A Closed fracture of greater trochanter of left femur S72.112A Acute blood loss anemia D62 Cancer related pain G89.3 Vitamin D deficiency E55.9 Breast cancer metastasized to bone C50.919; C79.51 DM type 2 (diabetes mellitus, type 2) E11.9 Therapeutic opioid-induced constipation (OIC) K59.03; T40.2X5A
[2024-09-19 06:22] LABS: Hematocrit (blood only) 22.3 % (37.0-47.0); Hemoglobin 7.4 g/dl (12.0-16.0)
[2024-09-19 06:36] LABS: Anion Gap 5.0 (3-11); Blood Urea Nitrogen 21.0 mg/dl (6-23); Calcium 10.6 mg/dl (8.6-10.3); Carbon Dioxide 31.0 mmol/L (21-32); Chloride 100.0 mmol/L (98-107); Creatinine Clr Calc Pharmacy 92.7 ml/min; Glucose 174.0 mg/dl (70-99(Fasting)); Magnesium 1.5 mg/dl (1.7-2.4); Potassium 3.9 mmol/L (3.5-5.1); Sodium 136.0 mmol/L (136-145)
[2024-09-19] MEDS: LANTUS PER UNIT CHARGE SC SCH (08:03)
[2024-09-19] MEDS: FOLIC ACID 1 MG in SYRINGE 9.8 ML IV STA (11:18)
[2024-09-19] MEDS: MAGNESIUM SULFATE / D5W 1 GM/100 ML BAG IV SCH (11:35)
[2024-09-19] MEDS ORDERED: POLYETHYLENE (MIRALAX) 17 GM PACK PO PRN (12:35)
--- NOTE | 2024-09-19 16:15 | Hospitalist Progress Note ---
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 Presented to the ER with left hip pain which has been present since falling on August 09. Initial outpatient hip x-rays were negative. Pain worsened over several weeks. Admitted from 08/20 to 08/23 due to pain in her L shoulder and L knee pain; dx with left subacute pathological fracture of proximal fibula, possible nondisplaced fracture of distal left clavicle, and acute fractures anterior 3rd/4th ribs. Skeletal survey during this admission revealed extensive mixed lytic/blastic bony metastatic disease in numerous locations. #Left pathological greater trochanter fracture due to neoplastic disease [breast cancer] - - s/p left troch nail prophylactic fixation on 09/[address] Tai Faustin - Palliative care consulted for assistance with pain management -cont Fentanyl patch 75mcg q3days (attempts in the past to increase beyond 75mcg led to side effects) -cont Dilaudid [employer]; defer management to Dr Limon; on 09/20 plan is to try and wean off the dilaudid [employer] and institute the following: -OxyIR 60mg PO q4h prn -dilaudid 2mg IV q6h prn for refractory pain - cont PT/OT -pt's goal is to return home with her family who provide considerable help to her; however, right now she is a 2+ max assist -I spoke with PT/OT who reports she is very unsafe to return home and that her family, if she indeed goes home, will need to learn safe techniques for transfer, etc. -her niece is one of her primary caregivers and the patient did state her niece will come at some point this week to shadow the PT/OTs -if family cannot provide the necessary support for transfers, etc then she would need rehab placement - Vit D level severely low - will replace #Acute blood loss anemia in the setting of chronic disease anemia - - ABLA 2nd to recent surgical intervention of her pathological hip fracture - s/p 2 units pRBCs - 09/14, 09/15 - Hb 7.4 today - folate level borderline low - will provide folic acid 1mg daily; would Rx for 1 month - repeat Hb am - of note - B12 level was >1400 1 year ago; defer recheck - consider Fe studies but they may not be accurate due to recent blood transfusions #Stage 4 breast cancer - - Follows with [facility]asc[facility] - on Eribulin - Follows with Dr Limon with the palliative care clinic #Type 2 diabetes mellitus - - HbA1C 7.9% - pharmacy glycemic team providing DM oversight; appreciate their assistance #vitamin D deficiency - - level 7 - ergocalciferol 55634 units weekly x 8 weeks #opiate-induced constipation - - miralax BID - senna/colace BID #VTE Prophylaxis - - Lovenox 40mg daily #hypomagnesemia - - IV mag sulfate x 2 grams - repeat level am #hypercalcemia - - likely due to extensive bony mets from breast ca - while replacing severely low vitamin D will need to watch the calcium levels closely - the calcium level right now simply bears watching; no specific Rx needed yet #right forearm pain - - 2nd to bony mets from cancer - consider low-dose steroids (dex 2mg daily) for bone pain?? defer that decision to palliative care - fortunately no fracture in this specific location care d/w Dr Limon extensively today appreciate her assistance disposition uncertain Admission and Anticipated Discharge Date Admission Date: September 13, 2024 Subjective patient c/o right forearm pain started in the last 48 hours mainly distal, along the ulnar aspect no injury no swelling left hip pain continues but IS improved with the larger doses of dilaudid [employer] still no stool -but no abd pain or N/V today very tearful throughout the visit today - she was talking about the multiple deaths in her family over the last several years including her mother Review of Systems Review of Systems: gen - weak, fatigued, tired cv - no chest pain, no orthopnea pulm - no dyspnea musculo - besides R forearm and L thigh no other areas of pain Physical Exam Physical Exam: gen - NAD, lying in bed, pleasant; tearful at times mouth - MMM neck - no JVD heart - RRR, s1 s2, no murmur lungs - CTA b/l abd - soft NT ND BS+ ext - mild-moderate edema left thigh; dressings intact left lateral thigh; no edema right leg; pulses b/l feet 2+; right forearm - no deformity noted; there is an IV in place near the right elbow; I don't see or feel a palpable cord in the vicinity of the IV musculo - full passive ROM of the R elbow and R wrist Results & Data Results & Data Vital Signs (Past 12 Hours) Vital Signs Temp Pulse Resp BP Pulse Ox O2 Del Method O2 Flow Rate 09/19/24 15:11 36.9 C 84 16 112/73 100 Nasal Cannula 2 09/19/24 11:44 36.9 C 96 H 14 115/73 99 Room Air 09/19/24 07:46 36.8 C 88 18 106/69 99 Nasal Cannula 2 09/19/24 07:45 Nasal Cannula 2 Laboratory Results Laboratory Results - last 24 hr 09/19/24 09/19/24 09/19/24 05:50 07:43 11:36 Hgb 7.4 L Hct 22.3 L Sodium 136 Potassium 3.9 Chloride 100 Carbon Dioxide 31 Anion Gap 5 BUN 21 Creatinine 0.84 Est Cr Clr Drug Dosing 92.7 eGFR 86.20 BUN/Creatinine Ratio 25.0 H Glucose 174 H POC Glucose 181 H 108 H Calcium 10.6 H Magnesium 1.5 L Folate 6.92 Diagnostic Findings Forearm X-Ray 09/19/24 16:14 Study: Right forearm 2 views History: Pain Comparison: 04/17/2024 Findings: There is no acute fracture or dislocation. Alignment is anatomic. Joint spaces are well maintained. There is no joint effusion or significant soft tissue swelling. Moderate lucencies within the proximal radius and distal humerus are seen with endosteal scalloping, and with lesions extending into the outer borders of the cortex. A few isolated, discrete lucent lesions are also seen at the proximal olecranon process as well as the mid diaphysis of the ulna. Impression: No acute bony abnormality. Bony metastases. 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
--- NOTE | 2024-09-19 17:18 | XRay Report ---
Study: Right forearm 2 views History: Pain Comparison: 04/17/2024 Findings: There is no acute fracture or dislocation. Alignment is anatomic. Joint spaces are well maintained. There is no joint effusion or significant soft tissue swelling. Moderate lucencies within the proximal radius and distal humerus are seen with endosteal scalloping, and with lesions extending into the outer borders of the cortex. A few isolated, discrete lucent lesions are also seen at the proximal olecranon process as well as the mid diaphysis of the ulna. Impression: No acute bony abnormality. Bony metastases. Electronically signed by Ruben Mckeon 09-19-2024 5:18 PM
--- NOTE | 2024-09-19 17:39 | Palliative Care Progress Note ---
Date of Service September 19, 2024 Assessment & Plan (1) Cancer related pain: Plan: Discussed progress to date. therapy team notes she has been declining to use walker. after more discussion, she agreed to try and did well, BUE is reasonably intact We discussed options for ongoing pain mgt. Her insurance does not cover long acting Oxy or MS Contin and Yamilka cannot tolerate more than TDF 75mcg dose. We reviewed Methadone which we have had prior conversations about but for now she declines. Due to her ongoing chronic but intermittent issues with refractory n/v, it is best to keep her on TDF to assure she has some long acting pain med on board. Therefore for now will plan to resume OxyIR 60mg PO q4h prn cancer pain/Hold for somnolence or RR less than 14; please document RR with each dose administration. We will plan to start a transition to PO meds tomorrow, with dilaudid 2mg IV q6h prn very severe pain unrelieved by oral meds. I am off tomorrow, and in clinic . Yamilka will be seen tomorrow by Dania MEEKS from [facility] and I will resume care Wednesday in hospital. Please page anytime for questions or concerns. (2) Therapeutic opioid-induced constipation (OIC): Plan: Bowel regimen ordered if no BM in 48hr or any inc n/v, please obtain KUB to assess for obstruction (3) Chemotherapy-induced peripheral neuropathy: (4) Weakness generalized: Plan: Hopeful to get her to acute IPR (5) Refractory nausea and vomiting: (6) Breast cancer metastasized to multiple sites: (7) Palliative care by specialist: Plan As above. Case d/w with Dr Miguel - RT in 3-4 weeks after wounds healed and trial of rehab/strength improves. Thank you for allowing us to participate in the ongoing care of this patient. Please page with any additional concerns. Pilar Limon DNP Director, Palliative Medicine Admission and Anticipated Discharge Date Admission Date: September 13, 2024 Subjective Yamilka is resting in bed this morning at the time of my visit She feels pain is adequately managed she denies n/v, appetite ok she has not had a BM x 5 days - does not want bowel regimen and states "I just let my body handle these things naturally." 2 person assist for all OOB activity working with therapy everyday Review of Systems Review of Systems: All systems reviewed & are unremarkable except as noted in Subjective Physical Exam Constitutional: + frail appearing and cooperative bitemp wasting, chemo related alopecia Eyes: PERRL, conjunctivae normal, anicteric sclerae ENMT: Mouth: + dry oral mucous membranes and + poor dentition Neck: trachea midline, no thyromegaly Cardiovascular: RRR, no murmur, no edema Gastrointestinal (Abdomen): dim BS, non tender, mild distension Musculoskeletal: generalized weakness, R hip tenderness. surgical wound dressing CDI scatt ecchymoses. ROM limited Skin: + turgor decreased and + pallor Neurologic: AAOx3 Psychiatric: Orientation: cooperative Affect: euthymic affect Results & Data Vital Signs (Past 12 Hours) Vital Signs Temp Pulse Resp BP Pulse Ox O2 Del Method O2 Flow Rate 09/19/24 15:11 36.9 C 84 16 112/73 100 Nasal Cannula 2 09/19/24 11:44 36.9 C 96 H 14 115/73 99 Room Air 09/19/24 07:46 36.8 C 88 18 106/69 99 Nasal Cannula 2 09/19/24 07:45 Nasal Cannula 2 Laboratory Results 09/19/24 09/19/24 09/19/24 Range/Units 16:32 11:36 07:43 WBC (4.8-10.8) K/ul RBC (4.20-5.40) M/uL Hgb (12.0-16.0) g/dl Hct (37.0-47.0) % MCV (80.0-100.0) fL MCH (25.0-34.0) pg MCHC (32.0-36.0) g/dL RDW Std Deviation (36.4-46.3) fL RDW Coeff of Joshua (11.5-14.5) % Plt Count (130-400) K/uL MPV (9.4-12.4) fL Immature Gran % (Auto) % Neut % (Auto) % Lymph % (Auto) % [place] % (Auto) % Eos % (Auto) % Baso % (Auto) % Neut # (Auto) (1.40-6.50) K/uL Lymph # (Auto) (1.20-3.40) K/uL [place] # (Auto) (0.11-0.59) K/uL Eos # (Auto) (0.00-0.50) K/uL Baso # (Auto) (0.00-0.20) K/uL Immature Gran # (Auto) (0.01-0.20) K/uL Sodium (136-145) mmol/L Potassium (3.5-5.1) mmol/L Chloride (98-107) mmol/L Carbon Dioxide (21-32) mmol/L Anion Gap (3-11) BUN (6-23) mg/dl Creatinine (0.6-1.2) mg/dl Est Cr Clr Drug Dosing ml/min eGFR BUN/Creatinine Ratio (10-20) Glucose (70-99(Fasting)) mg/dl POC Glucose 187 H 108 H 181 H (70-99) mg/dl Estimat Average Glucose mg/dl Hemoglobin A1c (4.5-5.6) % Calcium (8.6-10.3) mg/dl Magnesium (1.7-2.4) mg/dl Total Bilirubin (0.2-1.0) mg/dl AST (13-39) U/L ALT (7-52) U/L Alkaline Phosphatase (34-104) U/L Total Protein (6.0-8.3) gm/dl Albumin (3.4-5.0) gm/dl Globulin (2.5-4.0) gm/dl Albumin/Globulin Ratio (0.9-2) Lipase (11-82) U/L 25-OH Vitamin D Total (30-100) ng/ml Folate (>5.38) ng/ml Blood Type Antibody Screen Crossmatch 09/19/24 09/18/24 09/18/24 Range/Units 05:50 20:37 16:34 WBC (4.8-10.8) K/ul RBC (4.20-5.40) M/uL Hgb 7.4 L (12.0-16.0) g/dl Hct 22.3 L (37.0-47.0) % MCV (80.0-100.0) fL MCH (25.0-34.0) pg MCHC (32.0-36.0) g/dL RDW Std Deviation (36.4-46.3) fL RDW Coeff of Joshua (11.5-14.5) % Plt Count (130-400) K/uL MPV (9.4-12.4) fL Immature Gran % (Auto) % Neut % (Auto) % Lymph % (Auto) % [place] % (Auto) % Eos % (Auto) % Baso % (Auto) % Neut # (Auto) (1.40-6.50) K/uL Lymph # (Auto) (1.20-3.40) K/uL [place] # (Auto) (0.11-0.59) K/uL Eos # (Auto) (0.00-0.50) K/uL Baso # (Auto) (0.00-0.20) K/uL Immature Gran # (Auto) (0.01-0.20) K/uL Sodium 136 (136-145) mmol/L Potassium 3.9 (3.5-5.1) mmol/L Chloride 100 (98-107) mmol/L Carbon Dioxide 31 (21-32) mmol/L Anion Gap 5 (3-11) BUN 21 (6-23) mg/dl Creatinine 0.84 (0.6-1.2) mg/dl Est Cr Clr Drug Dosing 92.7 ml/min eGFR 86.20 BUN/Creatinine Ratio 25.0 H (10-20) Glucose 174 H (70-99(Fasting)) mg/dl POC Glucose 210 H 196 H (70-99) mg/dl Estimat Average Glucose mg/dl Hemoglobin A1c (4.5-5.6) % Calcium 10.6 H (8.6-10.3) mg/dl Magnesium 1.5 L (1.7-2.4) mg/dl Total Bilirubin (0.2-1.0) mg/dl AST (13-39) U/L ALT (7-52) U/L Alkaline Phosphatase (34-104) U/L Total Protein (6.0-8.3) gm/dl Albumin (3.4-5.0) gm/dl Globulin (2.5-4.0) gm/dl Albumin/Globulin Ratio (0.9-2) Lipase (11-82) U/L 25-OH Vitamin D Total (30-100) ng/ml Folate 6.92 (>5.38) ng/ml Blood Type Antibody Screen Crossmatch 07/09/18/24 09/18/24 Range/Units 11:17 07:50 06:08 WBC 2.58 L (4.8-10.8) K/ul RBC 2.57 L (4.20-5.40) M/uL Hgb 7.6 L (12.0-16.0) g/dl Hct 21.9 L (37.0-47.0) % MCV 85.2 (80.0-100.0) fL MCH 29.6 (25.0-34.0) pg MCHC 34.7 (32.0-36.0) g/dL RDW Std Deviation 49.1 H (36.4-46.3) fL RDW Coeff of Joshua 16.1 H (11.5-14.5) % Plt Count 182 (130-400) K/uL MPV 9.4 (9.4-12.4) fL Immature Gran % (Auto) % Neut % (Auto) % Lymph % (Auto) % [place] % (Auto) % Eos % (Auto) % Baso % (Auto) % Neut # (Auto) (1.40-6.50) K/uL Lymph # (Auto) (1.20-3.40) K/uL [place] # (Auto) (0.11-0.59) K/uL Eos # (Auto) (0.00-0.50) K/uL Baso # (Auto) (0.00-0.20) K/uL Immature Gran # (Auto) (0.01-0.20) K/uL Sodium (136-145) mmol/L Potassium (3.5-5.1) mmol/L Chloride (98-107) mmol/L Carbon Dioxide (21-32) mmol/L Anion Gap (3-11) BUN (6-23) mg/dl Creatinine (0.6-1.2) mg/dl Est Cr Clr Drug Dosing ml/min eGFR BUN/Creatinine Ratio (10-20) Glucose (70-99(Fasting)) mg/dl POC Glucose 153 H 114 H (70-99) mg/dl Estimat Average Glucose mg/dl Hemoglobin A1c (4.5-5.6) % Calcium (8.6-10.3) mg/dl Magnesium (1.7-2.4) mg/dl Total Bilirubin (0.2-1.0) mg/dl AST (13-39) U/L ALT (7-52) U/L Alkaline Phosphatase (34-104) U/L Total Protein (6.0-8.3) gm/dl Albumin (3.4-5.0) gm/dl Globulin (2.5-4.0) gm/dl Albumin/Globulin Ratio (0.9-2) Lipase (11-82) U/L 25-OH Vitamin D Total 7.9 L (30-100) ng/ml Folate (>5.38) ng/ml Blood Type Antibody Screen Crossmatch 09/17/24 09/17/24 09/17/24 Range/Units 20:32 16:18 11:36 WBC (4.8-10.8) K/ul RBC (4.20-5.40) M/uL Hgb (12.0-16.0) g/dl Hct (37.0-47.0) % MCV (80.0-100.0) fL MCH (25.0-34.0) pg MCHC (32.0-36.0) g/dL RDW Std Deviation (36.4-46.3) fL RDW Coeff of Joshua (11.5-14.5) % Plt Count (130-400) K/uL MPV (9.4-12.4) fL Immature Gran % (Auto) % Neut % (Auto) % Lymph % (Auto) % [place] % (Auto) % Eos % (Auto) % Baso % (Auto) % Neut # (Auto) (1.40-6.50) K/uL Lymph # (Auto) (1.20-3.40) K/uL [place] # (Auto) (0.11-0.59) K/uL Eos # (Auto) (0.00-0.50) K/uL Baso # (Auto) (0.00-0.20) K/uL Immature Gran # (Auto) (0.01-0.20) K/uL Sodium (136-145) mmol/L Potassium (3.5-5.1) mmol/L Chloride (98-107) mmol/L Carbon Dioxide (21-32) mmol/L Anion Gap (3-11) BUN (6-23) mg/dl Creatinine (0.6-1.2) mg/dl Est Cr Clr Drug Dosing ml/min eGFR BUN/Creatinine Ratio (10-20) Glucose (70-99(Fasting)) mg/dl POC Glucose 116 H 125 H 180 H (70-99) mg/dl Estimat Average Glucose mg/dl Hemoglobin A1c (4.5-5.6) % Calcium (8.6-10.3) mg/dl Magnesium (1.7-2.4) mg/dl Total Bilirubin (0.2-1.0) mg/dl AST (13-39) U/L ALT (7-52) U/L Alkaline Phosphatase (34-104) U/L Total Protein (6.0-8.3) gm/dl Albumin (3.4-5.0) gm/dl Globulin (2.5-4.0) gm/dl Albumin/Globulin Ratio (0.9-2) Lipase (11-82) U/L 25-OH Vitamin D Total (30-100) ng/ml Folate (>5.38) ng/ml Blood Type Antibody Screen Crossmatch 09/17/24 09/17/24 09/16/24 Range/Units 07:42 05:29 20:20 WBC 3.03 L (4.8-10.8) K/ul RBC 2.70 L (4.20-5.40) M/uL Hgb 8.0 L (12.0-16.0) g/dl Hct 23.2 L (37.0-47.0) % MCV 85.9 (80.0-100.0) fL MCH 29.6 (25.0-34.0) pg MCHC 34.5 (32.0-36.0) g/dL RDW Std Deviation 51.5 H (36.4-46.3) fL RDW Coeff of Joshua 16.7 H (11.5-14.5) % Plt Count 153 (130-400) K/uL MPV 8.7 L (9.4-12.4) fL Immature Gran % (Auto) % Neut % (Auto) % Lymph % (Auto) % [place] % (Auto) % Eos % (Auto) % Baso % (Auto) % Neut # (Auto) (1.40-6.50) K/uL Lymph # (Auto) (1.20-3.40) K/uL [place] # (Auto) (0.11-0.59) K/uL Eos # (Auto) (0.00-0.50) K/uL Baso # (Auto) (0.00-0.20) K/uL Immature Gran # (Auto) (0.01-0.20) K/uL Sodium (136-145) mmol/L Potassium (3.5-5.1) mmol/L Chloride (98-107) mmol/L Carbon Dioxide (21-32) mmol/L Anion Gap (3-11) BUN (6-23) mg/dl Creatinine (0.6-1.2) mg/dl Est Cr Clr Drug Dosing ml/min eGFR BUN/Creatinine Ratio (10-20) Glucose (70-99(Fasting)) mg/dl POC Glucose 148 H 142 H (70-99) mg/dl Estimat Average Glucose mg/dl Hemoglobin A1c (4.5-5.6) % Calcium (8.6-10.3) mg/dl Magnesium (1.7-2.4) mg/dl Total Bilirubin (0.2-1.0) mg/dl AST (13-39) U/L ALT (7-52) U/L Alkaline Phosphatase (34-104) U/L Total Protein (6.0-8.3) gm/dl Albumin (3.4-5.0) gm/dl Globulin (2.5-4.0) gm/dl Albumin/Globulin Ratio (0.9-2) Lipase (11-82) U/L 25-OH Vitamin D Total (30-100) ng/ml Folate (>5.38) ng/ml Blood Type Antibody Screen Crossmatch 09/16/24 09/16/24 09/16/24 Range/Units 16:15 15:57 11:21 WBC (4.8-10.8) K/ul RBC (4.20-5.40) M/uL Hgb 7.5 L (12.0-16.0) g/dl Hct 21.3 L (37.0-47.0) % MCV (80.0-100.0) fL MCH (25.0-34.0) pg MCHC (32.0-36.0) g/dL RDW Std Deviation (36.4-46.3) fL RDW Coeff of Joshua (11.5-14.5) % Plt Count (130-400) K/uL MPV (9.4-12.4) fL Immature Gran % (Auto) % Neut % (Auto) % Lymph % (Auto) % [place] % (Auto) % Eos % (Auto) % Baso % (Auto) % Neut # (Auto) (1.40-6.50) K/uL Lymph # (Auto) (1.20-3.40) K/uL [place] # (Auto) (0.11-0.59) K/uL Eos # (Auto) (0.00-0.50) K/uL Baso # (Auto) (0.00-0.20) K/uL Immature Gran # (Auto) (0.01-0.20) K/uL Sodium (136-145) mmol/L Potassium (3.5-5.1) mmol/L Chloride (98-107) mmol/L Carbon Dioxide (21-32) mmol/L Anion Gap (3-11) BUN (6-23) mg/dl Creatinine (0.6-1.2) mg/dl Est Cr Clr Drug Dosing ml/min eGFR BUN/Creatinine Ratio (10-20) Glucose (70-99(Fasting)) mg/dl POC Glucose 87 183 H (70-99) mg/dl Estimat Average Glucose mg/dl Hemoglobin A1c (4.5-5.6) % Calcium (8.6-10.3) mg/dl Magnesium (1.7-2.4) mg/dl Total Bilirubin (0.2-1.0) mg/dl AST (13-39) U/L ALT (7-52) U/L Alkaline Phosphatase (34-104) U/L Total Protein (6.0-8.3) gm/dl Albumin (3.4-5.0) gm/dl Globulin (2.5-4.0) gm/dl Albumin/Globulin Ratio (0.9-2) Lipase (11-82) U/L 25-OH Vitamin D Total (30-100) ng/ml Folate (>5.38) ng/ml Blood Type Antibody Screen Crossmatch 07/19/25 07/19/25 07/18/25 Range/Units 07:11 06:20 20:21 WBC 4.00 L (4.8-10.8) K/ul RBC 2.35 L (4.20-5.40) M/uL Hgb 7.1 L 7.4 L (12.0-16.0) g/dl Hct 20.1 L* 21.2 L (37.0-47.0) % MCV 85.5 (80.0-100.0) fL MCH 30.2 (25.0-34.0) pg MCHC 35.3 (32.0-36.0) g/dL RDW Std Deviation 50.4 H (36.4-46.3) fL RDW Coeff of Joshua 16.4 H (11.5-14.5) % Plt Count 164 (130-400) K/uL MPV 9.7 (9.4-12.4) fL Immature Gran % (Auto) % Neut % (Auto) % Lymph % (Auto) % [place] % (Auto) % Eos % (Auto) % Baso % (Auto) % Neut # (Auto) (1.40-6.50) K/uL Lymph # (Auto) (1.20-3.40) K/uL [place] # (Auto) (0.11-0.59) K/uL Eos # (Auto) (0.00-0.50) K/uL Baso # (Auto) (0.00-0.20) K/uL Immature Gran # (Auto) (0.01-0.20) K/uL Sodium (136-145) mmol/L Potassium (3.5-5.1) mmol/L Chloride (98-107) mmol/L Carbon Dioxide (21-32) mmol/L Anion Gap (3-11) BUN (6-23) mg/dl Creatinine (0.6-1.2) mg/dl Est Cr Clr Drug Dosing ml/min eGFR BUN/Creatinine Ratio (10-20) Glucose (70-99(Fasting)) mg/dl POC Glucose 181 H (70-99) mg/dl Estimat Average Glucose mg/dl Hemoglobin A1c (4.5-5.6) % Calcium (8.6-10.3) mg/dl Magnesium (1.7-2.4) mg/dl Total Bilirubin (0.2-1.0) mg/dl AST (13-39) U/L ALT (7-52) U/L Alkaline Phosphatase (34-104) U/L Total Protein (6.0-8.3) gm/dl Albumin (3.4-5.0) gm/dl Globulin (2.5-4.0) gm/dl Albumin/Globulin Ratio (0.9-2) Lipase (11-82) U/L 25-OH Vitamin D Total (30-100) ng/ml Folate (>5.38) ng/ml Blood Type Antibody Screen Crossmatch 09/15/24 09/15/24 09/15/24 Range/Units 20:13 15:38 11:22 WBC (4.8-10.8) K/ul RBC (4.20-5.40) M/uL Hgb (12.0-16.0) g/dl Hct (37.0-47.0) % MCV (80.0-100.0) fL MCH (25.0-34.0) pg MCHC (32.0-36.0) g/dL RDW Std Deviation (36.4-46.3) fL RDW Coeff of Joshua (11.5-14.5) % Plt Count (130-400) K/uL MPV (9.4-12.4) fL Immature Gran % (Auto) % Neut % (Auto) % Lymph % (Auto) % [place] % (Auto) % Eos % (Auto) % Baso % (Auto) % Neut # (Auto) (1.40-6.50) K/uL Lymph # (Auto) (1.20-3.40) K/uL [place] # (Auto) (0.11-0.59) K/uL Eos # (Auto) (0.00-0.50) K/uL Baso # (Auto) (0.00-0.20) K/uL Immature Gran # (Auto) (0.01-0.20) K/uL Sodium (136-145) mmol/L Potassium (3.5-5.1) mmol/L Chloride (98-107) mmol/L Carbon Dioxide (21-32) mmol/L Anion Gap (3-11) BUN (6-23) mg/dl Creatinine (0.6-1.2) mg/dl Est Cr Clr Drug Dosing ml/min eGFR BUN/Creatinine Ratio (10-20) Glucose (70-99(Fasting)) mg/dl POC Glucose 182 H 146 H 127 H (70-99) mg/dl Estimat Average Glucose mg/dl Hemoglobin A1c (4.5-5.6) % Calcium (8.6-10.3) mg/dl Magnesium (1.7-2.4) mg/dl Total Bilirubin (0.2-1.0) mg/dl AST (13-39) U/L ALT (7-52) U/L Alkaline Phosphatase (34-104) U/L Total Protein (6.0-8.3) gm/dl Albumin (3.4-5.0) gm/dl Globulin (2.5-4.0) gm/dl Albumin/Globulin Ratio (0.9-2) Lipase (11-82) U/L 25-OH Vitamin D Total (30-100) ng/ml Folate (>5.38) ng/ml Blood Type Antibody Screen Crossmatch 09/15/24 09/15/24 09/15/24 Range/Units 08:39 07:53 06:44 WBC 4.62 L (4.8-10.8) K/ul RBC 2.21 L (4.20-5.40) M/uL Hgb 6.7 L* (12.0-16.0) g/dl Hct 19.0 L* (37.0-47.0) % MCV 86.0 (80.0-100.0) fL MCH 30.3 (25.0-34.0) pg MCHC 35.3 (32.0-36.0) g/dL RDW Std Deviation 50.4 H (36.4-46.3) fL RDW Coeff of Joshua 16.1 H (11.5-14.5) % Plt Count 145 (130-400) K/uL MPV 9.1 L (9.4-12.4) fL Immature Gran % (Auto) % Neut % (Auto) % Lymph % (Auto) % [place] % (Auto) % Eos % (Auto) % Baso % (Auto) % Neut # (Auto) (1.40-6.50) K/uL Lymph # (Auto) (1.20-3.40) K/uL [place] # (Auto) (0.11-0.59) K/uL Eos # (Auto) (0.00-0.50) K/uL Baso # (Auto) (0.00-0.20) K/uL Immature Gran # (Auto) (0.01-0.20) K/uL Sodium 136 (136-145) mmol/L Potassium 4.3 (3.5-5.1) mmol/L Chloride 101 (98-107) mmol/L Carbon Dioxide 27 (21-32) mmol/L Anion Gap 8 (3-11) BUN 25 H (6-23) mg/dl Creatinine 1.08 (0.6-1.2) mg/dl Est Cr Clr Drug Dosing 72.1 ml/min eGFR 63.76 BUN/Creatinine Ratio 23.1 H (10-20) Glucose 132 H (70-99(Fasting)) mg/dl POC Glucose 140 H (70-99) mg/dl Estimat Average Glucose mg/dl Hemoglobin A1c (4.5-5.6) % Calcium 9.6 (8.6-10.3) mg/dl Magnesium (1.7-2.4) mg/dl Total Bilirubin (0.2-1.0) mg/dl AST (13-39) U/L ALT (7-52) U/L Alkaline Phosphatase (34-104) U/L Total Protein (6.0-8.3) gm/dl Albumin (3.4-5.0) gm/dl Globulin (2.5-4.0) gm/dl Albumin/Globulin Ratio (0.9-2) Lipase (11-82) U/L 25-OH Vitamin D Total (30-100) ng/ml Folate (>5.38) ng/ml Blood Type O Negative Antibody Screen NEGATIVE Crossmatch See Detail 09/14/24 09/14/24 09/14/24 Range/Units 21:55 21:53 14:52 WBC (4.8-10.8) K/ul RBC (4.20-5.40) M/uL Hgb (12.0-16.0) g/dl Hct (37.0-47.0) % MCV (80.0-100.0) fL MCH (25.0-34.0) pg MCHC (32.0-36.0) g/dL RDW Std Deviation (36.4-46.3) fL RDW Coeff of Joshua (11.5-14.5) % Plt Count (130-400) K/uL MPV (9.4-12.4) fL Immature Gran % (Auto) % Neut % (Auto) % Lymph % (Auto) % [place] % (Auto) % Eos % (Auto) % Baso % (Auto) % Neut # (Auto) (1.40-6.50) K/uL Lymph # (Auto) (1.20-3.40) K/uL [place] # (Auto) (0.11-0.59) K/uL Eos # (Auto) (0.00-0.50) K/uL Baso # (Auto) (0.00-0.20) K/uL Immature Gran # (Auto) (0.01-0.20) K/uL Sodium (136-145) mmol/L Potassium (3.5-5.1) mmol/L Chloride (98-107) mmol/L Carbon Dioxide (21-32) mmol/L Anion Gap (3-11) BUN (6-23) mg/dl Creatinine (0.6-1.2) mg/dl Est Cr Clr Drug Dosing ml/min eGFR BUN/Creatinine Ratio (10-20) Glucose (70-99(Fasting)) mg/dl POC Glucose 347 H* 361 H* 208 H (70-99) mg/dl Estimat Average Glucose mg/dl Hemoglobin A1c (4.5-5.6) % Calcium (8.6-10.3) mg/dl Magnesium (1.7-2.4) mg/dl Total Bilirubin (0.2-1.0) mg/dl AST (13-39) U/L ALT (7-52) U/L Alkaline Phosphatase (34-104) U/L Total Protein (6.0-8.3) gm/dl Albumin (3.4-5.0) gm/dl Globulin (2.5-4.0) gm/dl Albumin/Globulin Ratio (0.9-2) Lipase (11-82) U/L 25-OH Vitamin D Total (30-100) ng/ml Folate (>5.38) ng/ml Blood Type Antibody Screen Crossmatch 09/14/24 09/14/24 09/14/24 Range/Units 12:35 07:32 06:20 WBC 4.04 L (4.8-10.8) K/ul RBC 2.80 L (4.20-5.40) M/uL Hgb 8.4 L (12.0-16.0) g/dl Hct 23.9 L (37.0-47.0) % MCV 85.4 (80.0-100.0) fL MCH 30.0 (25.0-34.0) pg MCHC 35.1 (32.0-36.0) g/dL RDW Std Deviation 48.7 H (36.4-46.3) fL RDW Coeff of Joshua 15.8 H (11.5-14.5) % Plt Count 159 (130-400) K/uL MPV 8.9 L (9.4-12.4) fL Immature Gran % (Auto) % Neut % (Auto) % Lymph % (Auto) % [place] % (Auto) % Eos % (Auto) % Baso % (Auto) % Neut # (Auto) (1.40-6.50) K/uL Lymph # (Auto) (1.20-3.40) K/uL [place] # (Auto) (0.11-0.59) K/uL Eos # (Auto) (0.00-0.50) K/uL Baso # (Auto) (0.00-0.20) K/uL Immature Gran # (Auto) (0.01-0.20) K/uL Sodium 136 (136-145) mmol/L Potassium 3.8 (3.5-5.1) mmol/L Chloride 100 (98-107) mmol/L Carbon Dioxide 27 (21-32) mmol/L Anion Gap 9 (3-11) BUN 21 (6-23) mg/dl Creatinine 0.92 (0.6-1.2) mg/dl Est Cr Clr Drug Dosing 84.6 ml/min eGFR 77.29 BUN/Creatinine Ratio 22.8 H (10-20) Glucose 143 H (70-99(Fasting)) mg/dl POC Glucose 163 H 165 H (70-99) mg/dl Estimat Average Glucose 166 mg/dl Hemoglobin A1c 7.4 H (4.5-5.6) % Calcium 10.3 (8.6-10.3) mg/dl Magnesium (1.7-2.4) mg/dl Total Bilirubin (0.2-1.0) mg/dl AST (13-39) U/L ALT (7-52) U/L Alkaline Phosphatase (34-104) U/L Total Protein (6.0-8.3) gm/dl Albumin (3.4-5.0) gm/dl Globulin (2.5-4.0) gm/dl Albumin/Globulin Ratio (0.9-2) Lipase (11-82) U/L 25-OH Vitamin D Total (30-100) ng/ml Folate (>5.38) ng/ml Blood Type Antibody Screen Crossmatch 09/14/24 09/13/24 Range/Units 03:28 21:19 WBC 4.76 L (4.8-10.8) K/ul RBC 2.72 L (4.20-5.40) M/uL Hgb 8.2 L (12.0-16.0) g/dl Hct 23.1 L (37.0-47.0) % MCV 84.9 (80.0-100.0) fL MCH 30.1 (25.0-34.0) pg MCHC 35.5 (32.0-36.0) g/dL RDW Std Deviation 48.2 H (36.4-46.3) fL RDW Coeff of Joshua 15.6 H (11.5-14.5) % Plt Count 158 (130-400) K/uL MPV 9.7 (9.4-12.4) fL Immature Gran % (Auto) 1.5 % Neut % (Auto) 69.8 % Lymph % (Auto) 23.1 % [place] % (Auto) 4.0 % Eos % (Auto) 0.8 % Baso % (Auto) 0.8 % Neut # (Auto) 3.32 (1.40-6.50) K/uL Lymph # (Auto) 1.10 L (1.20-3.40) K/uL [place] # (Auto) 0.19 (0.11-0.59) K/uL Eos # (Auto) 0.04 (0.00-0.50) K/uL Baso # (Auto) 0.04 (0.00-0.20) K/uL Immature Gran # (Auto) 0.07 (0.01-0.20) K/uL Sodium 134 L (136-145) mmol/L Potassium 3.8 (3.5-5.1) mmol/L Chloride 101 (98-107) mmol/L Carbon Dioxide 25 (21-32) mmol/L Anion Gap 8 (3-11) BUN 21 (6-23) mg/dl Creatinine 0.90 (0.6-1.2) mg/dl Est Cr Clr Drug Dosing 86.3 ml/min eGFR 79.35 BUN/Creatinine Ratio 23.3 H (10-20) Glucose 286 H (70-99(Fasting)) mg/dl POC Glucose 193 H (70-99) mg/dl Estimat Average Glucose mg/dl Hemoglobin A1c (4.5-5.6) % Calcium 9.5 (8.6-10.3) mg/dl Magnesium (1.7-2.4) mg/dl Total Bilirubin 0.5 (0.2-1.0) mg/dl AST 20 (13-39) U/L ALT 13 (7-52) U/L Alkaline Phosphatase 150 H (34-104) U/L Total Protein 6.4 (6.0-8.3) gm/dl Albumin 3.3 L (3.4-5.0) gm/dl Globulin 3.1 (2.5-4.0) gm/dl Albumin/Globulin Ratio 1.1 (0.9-2) Lipase 13 (11-82) U/L 25-OH Vitamin D Total (30-100) ng/ml Folate (>5.38) ng/ml Blood Type Antibody Screen Crossmatch Diagnostic Findings Femur CT 09/13/24 20:45 Exam(s): CT EXTREMITY LEFT LOWER Without Contrast EXAM: CT Left Lower Extremity Without Intravenous Contrast CLINICAL HISTORY: pain, fall, cancer. TECHNIQUE: Axial computed tomography images of the left lower extremity without intravenous contrast. CTDI is 24.91 mGy and DLP is 1300.17 mGy-cm. Automated exposure control was utilized for the study. A dose lowering technique was utilized adhering to the principles of ALARA. COMPARISON: No relevant prior studies available. FINDINGS: Bones/joints: Diffuse extensive osseous metastatic disease throughout the included skeletal structures with near complete resorption of the posterior column of the acetabulum and near complete resorption of the base of the left femoral neck. There is a nondisplaced fracture involving the lateral aspect of the left greater trochanter, best appreciated on coronal reformatted imaging. No dislocation. Soft tissues: Unremarkable. IMPRESSION: Extensive osseous metastatic disease. There is a nondisplaced fracture involving the lateral aspect of the left greater trochanter, best appreciated on coronal reformatted imaging. The remaining osseous structures are intact; however, there is near complete resorption at the base of the left femoral neck. The patient is considered high risk for pathologic fracture. Electronically signed by: Jeovany Ramirez MD 09/13/24 23:02 PM Hip X-Ray 09/14/24 00:00 FL hip LT 2-3V CLINICAL HISTORY: LEFT HIPfemoral nail COMPARISON STUDY: None pertinent FLUOROSCOPY TIME: 93.7 seconds FLUOROSCOPY IMAGES: 5 EXPOSURE DOSE: 21.91 mGy FINDINGS: Image guidance provided for femoral nail IMPRESSION: Refer to procedural report for evaluation based on real-time fluoroscopic observation. ACT 112: Negative or not required by law. Electronically signed by: Kyra Augustin M.D. 09/14/2024 3:47 PM Skeletal Survey 09/14/24 08:25 SKELETAL SURVEY CLINICAL HISTORY: Breast cancer. Metastatic bone disease. COMPARISON STUDY: Nuclear bone scan dated 08/14/2024. CT scan of the chest, abdomen, and pelvis dated 08/14/2024. CT scan of the left femur dated 09/13/2024. FINDINGS: 18 radiographs from a skeletal survey are presented as part of a skeletal survey. Again seen are findings of extensive/diffuse mixed lytic/blastic bony metastatic disease. This has not appreciably changed from the recent nuclear bone scan and staging CT scans. There are numerous chronic/healed bilateral rib fractures. There is also a subacute/healing pathologic fracture of the manubrium. A large and predominantly lytic lesion in the right humeral shaft may place the patient risk for additional pathologic fracture. Fracture through the greater trochanter of the left proximal femur is again noted. Extensive lytic disease in the left proximal femur may place the patient risk for additional pathologic fracture. No significant spinal compression fracture is identified by x-ray. A left subclavian central venous infusion port is in place. The patient is edentulous. Cholecystectomy clips are noted in the right upper quadrant. Mesh material and additional clips project over the pelvis. Foci of parenchymal scarring are noted in both lungs. No airspace consolidation or pleural effusion identified. There is no bowel obstruction. IMPRESSION: 1. Extensive mixed lytic/blastic bony metastatic disease is similar in appearance to recent prior studies. 2. Fracture is again seen through the greater trochanter of the left proximal femur. 3. There is a subacute/healing pathologic fracture of the manubrium. 4. Note that the degree of lytic metastatic disease place the patient risk for additional pathologic fractures. This appears greatest in the mid right humeral shaft and the left proximal femur. Electronically signed by: Brant Evans M.D. 09/14/2024 11:00 AM Femur X-Ray 09/14/24 16:15 INDICATION: Postoperative evaluation. Pain TECHNIQUE: 2 views of the left femur were obtained. COMPARISON: None FINDINGS: Interval placement of an intramedullary evita and interlocking screws in the left femur. No displaced acute osseous process is identified. Expected postsurgical changes of the soft tissues. Redemonstrated diffuse sclerotic and lytic metastatic disease. IMPRESSION: Interval placement of an intramedullary evita and interlocking screws in the left femur with expected postsurgical changes of the soft tissues. Electronically signed by Jack Jordan 09-14-2024 6:11 PM Forearm X-Ray 09/19/24 16:14 Study: Right forearm 2 views History: Pain Comparison: 04/17/2024 Findings: There is no acute fracture or dislocation. Alignment is anatomic. Joint spaces are well maintained. There is no joint effusion or significant soft tissue swelling. Moderate lucencies within the proximal radius and distal humerus are seen with endosteal scalloping, and with lesions extending into the outer borders of the cortex. A few isolated, discrete lucent lesions are also seen at the proximal olecranon process as well as the mid diaphysis of the ulna. Impression: No acute bony abnormality. Bony metastases. Electronically signed by Ruben Mckeon 09-19-2024 5:18 PM PG Care Time/CCT Total # of Minutes Spent Total Time Spent with Patient: Total time spent is greater than 50% in coordination of care (as documented) at patient's floor/unit and/or counseling patient: I spent 60 minutes overall addressing this case: 5 min in medical data review/discussion with referring provider(s) and/or preparation for the visit 20 min in direct interaction with the patient/exam 00 min in Advance Care Planning/Goals of Care discussions as detailed above in note (must be >16min) 15 min in subsequent review and synthesis of assessment and plan 20 min communicating with other providers regarding the patient's case: primary team, nursing, PT/OT [place] [address] SUB INP/OBS CARE 3/50MIN Patient Type Established Medical Decision Making High Complexity Diagnoses Cancer related pain G89.3 Therapeutic opioid-induced constipation (OIC) K59.03; T40.2X5A 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
[2024-09-19] MEDS: DOCUSATE SODIUM/SENNA 50/8.6MG TAB PO SCH (21:39)
[2024-09-20 07:16] LABS: Anion Gap 4.0 (3-11); Blood Urea Nitrogen 18.0 mg/dl (6-23); Calcium 11.3 mg/dl (8.6-10.3); Carbon Dioxide 32.0 mmol/L (21-32); Chloride 100.0 mmol/L (98-107); Creatinine Clr Calc Pharmacy 91.6 ml/min; Glucose 135.0 mg/dl (70-99(Fasting)); Magnesium 1.7 mg/dl (1.7-2.4); Potassium 4.0 mmol/L (3.5-5.1); Sodium 136.0 mmol/L (136-145)
[2024-09-20] MEDS: FOLIC ACID 1 MG in SYRINGE 9.8 ML IV SCH (08:19)
[2024-09-20] MEDS: MAGNESIUM SULFATE / D5W 1 GM/100 ML BAG IV SCH (09:16)
--- NOTE | 2024-09-20 09:21 | Pharmacy Report ---
Pharmacy Glycemic Short Note 2 - Date of Service September 20, 2024 - Glycemic Short BSG Results (Last 24 hours): 09/19/24 09/19/24 09/19/24 11:36 16:32 20:51 Glucose POC Glucose 108 H 187 H 156 H 09/20/24 09/20/24 06:14 07:22 Glucose 135 H POC Glucose 150 H OUTPATIENT ANTIDIABETIC REGIMEN: * Lantus 10 units SQ BID * NovoLOG SSI TIDM * HbA1c 7.9% (07/13/24) ASSESSMENT: 09/20/24: * Blood sugars remain reasonably well-controlled * Patient has been intermittently refusing bolus insulin * Fasting blood sugar elevated yesterday and patient accepting basal (dose increased yesterday) 09/18/24: * Blood sugars have been reasonably controlled over past 48 hours * Anticipating only minor changes ongoing 09/15 * Yamilka received 48 units of insulin yesterday (25 were basal) * Fasting BSG this AM within goal range, will continue with a basal scale at this time. * NovoLog loosened back to previous parameters as steroid effects wearing off at this time. 09/14: * Yamilka is a 49 year old female admitted with left hip fracture and a history of breast cancer metastasized to bone and type 2 diabetes mellitus. Pharmacy has been consulted to assist with glycemic management while inpatient. * NPO this AM for hip surgery, conservative basal insulin started at 50% reported home basal dosage. Currently in procedure, but dexamethasone 4mg IV pulled preoperatively. Will give full home basal dose after procedure to help cover for steroid induced hyperglycemia. * NovoLog at a weight based stress of 3 with steroids administration PLAN FOR INPATIENT GLYCEMIC CONTROL: * Hold outpatient oral diabetes medications * Basal insulin * Lantus 7 units SC BID * Bolus insulin * NovoLog per scale ACHS or Q6hrs while NPO * Goal Range: Low 120 mg/dL - High 160 mg/dL * Correction Factor: 45 mg/dL/unit * Nutritional / Prandial insulin per carb ratio of 1 unit per 14 grams CHO consumed
--- NOTE | 2024-09-20 09:44 | Hospitalist Progress Note ---
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: (3) Closed fracture of greater trochanter of left femur: (4) Type 2 diabetes mellitus with hyperglycemia: (5) Cancer related pain: (6) Breast cancer metastasized to bone: (7) Therapeutic opioid-induced constipation (OIC): (8) Opioid-induced insomnia: Plan #Hypercalcemia of Malignancy Initial serum calcium 10.4; progressive elevation to 11.3 on 09/20; additional lab assessment includes remaining electrolytes are relatively unremarkable with a mild hypomagnesemia improved from prior with replacement; associated symptoms include constipation, anorexia; elevated BUN/Cr is likely consequential of diminished ECF i/s/o hypercalcemia; diminished vitamin D is likely physiologic in the setting of hypercalcemia, would not recommend vitamin D supplementation until further assessed in the outpatient setting -Start telemetry given their degree of hypercalcemia -Measure and document I/O every shift -Administer zoledronic acid 4 mg IV one time -If p.o. intake does not improve, anticipate starting intermittent IVF for volume resuscitation -Follow daily RFP, serum magnesium #Left pathological greater trochanteric fracture i/s/o stage IV breast cancer Post operative day 6 from left trochanteric nail fixation; Palliative medicine primarily managing analgesic regimen, anticipating discontinuation of INSTRUMENT CHECKER on 09/20 -Continue physical and occupational therapy -Continued discussions regarding discharge home with home health versus placement; discussed possibility of hospital bed with patient and morning meeting -Outpatient care provided by Dr Plascencia (active chemotherapy with Eribulin) and Dr Limon #Anemia of Chronic Disease with iatrogenic loss Required 2 units PRBC during hospitalization; recent trend 7.4,7.5 #Type II Diabetes Mellitus with hyperglycemia - HbA1C 7.9% - Pharmacy assisting with adjustment of therapy #Therapeutic opioid dependence i/s/o cancer related pain consequential of osseous metastases Chronic condition; currently without significant abdominal discomfort or urinary retention; at this time continue current regimen Admission and Anticipated Discharge Date Admission Date: September 13, 2024; anticipate discharge in 48 to 72 hours pending disposition Subjective Ms. Vega is a 49-year-old female who was admitted to [facility] on 09/13 due to persistent left hip pain found to have an occult left greater trochanteric fracture consequential of a fall in the setting of osseous metastases from their previously diagnosed breast cancer. The patient is now postoperative day 6 from left trochanteric nail fixation. The postoperative course has been complicated by difficult to manage pain superimposed on their chronic osseous metastatic pain, palliative care has been assisting with this. No acute overnight events; the patient is overall feeling well today and c omfortable with discontinuation of their INSTRUMENT CHECKER as previously discussed with palliative care. They have focused our thoughts on plans for discharge to either home with assistance versus placement to a rehabilitation facility given their significant physical debility. Review of Systems Review of Systems: Constitutional: denies fevers, chills, malaise, fatigue Cardiovascular: Endorses unchanged left lower extremity edema from previous days; denies angina, palpitations, syncope Pulmonary: denies cough, dyspnea on exertion, pleuritic chest pain Gastrointestinal: Endorses chronic constipation unchanged from prior; denies nausea, hematemsis, emesis, dyspepsia, abdominal distension, diarrhea, melanotic stool Genitourinary: denies dysuria, hematuria, urinary incontinence Neurologic: denies focal weakness, paresthesias or numbness Musculoskeletal: denies new arthralgias, progressive weakness Integumentary: denies new or developing rashes or lesions Physical Exam Physical Exam: General: Adult female in no acute distress, appears much older than documented age Vital Signs: Reviewed HEENT: Normocephalic, atraumatic; pupils equally reactive to light, extraocular motions intact; moist mucous membranes Cardiovascular: Regular rate and rhythm with no murmurs, rubs, or gallops; S1 and S2 normal; bilateral radial and posterior tibial pulses 2+; left lower extremity trace pitting edema greater than right Gastrointestinal: Soft, nondistended; normal frequency and pitch of bowel sounds throughout; no palpable masses or organomegaly Musculoskeletal: Left lateral thigh around the operative area has a appropriately healing ecchymosis; dressing over the wound was not removed at the time of my exam; patient is ambulatory with maximum two-person assistance though is able to ambulate Neurologic: CN II-XII grossly intact; no discernible focal weakness nor paresthesias Results & Data Results & Data Vital Signs (Past 12 Hours) Vital Signs Temp Pulse Pulse Resp BP Pulse Ox O2 Del Method 09/20/24 07:28 37.2 C 84 18 130/70 100 Nasal Cannula 09/20/24 03:02 37 C 87 18 138/83 98 Room Air 09/19/24 23:07 37.2 C 90 18 135/81 99 Room Air O2 Flow Rate 09/20/24 07:28 2 09/20/24 03:02 2 Laboratory Results 09/20/24 09/20/24 09/19/24 07:22 06:14 20:51 Hgb 7.5 L Sodium 136 Potassium 4.0 Chloride 100 Carbon Dioxide 32 Anion Gap 4 BUN 18 Creatinine 0.85 Est Cr Clr Drug Dosing 91.6 eGFR 84.98 BUN/Creatinine Ratio 21.2 H Glucose 135 H POC Glucose 150 H 156 H Calcium 11.3 H Magnesium 1.7 09/19/24 09/19/24 16:32 11:36 Hgb Sodium Potassium Chloride Carbon Dioxide Anion Gap BUN Creatinine Est Cr Clr Drug Dosing eGFR BUN/Creatinine Ratio Glucose POC Glucose 187 H 108 H Calcium Magnesium Medications Administered Home Medications Medication Instructions Recorded Confirmed Last Taken insulin aspart U-100 100 unit/mL 0 sliding scale dose subcut AC 06/25/23 09/13/24 09/13/24 (3 mL) subcutaneous pen (Novolog FlexPen U-100 Insulin aspart) ondansetron 8 mg disintegrating 8 mg translingual BID PRN Nausea 06/25/23 09/13/24 Unknown tablet And Vomiting insulin glargine 100 unit/mL (3 10 unit subcut BID 09/23/23 09/13/24 09/13/24 mL) subcutaneous pen (Lantus Solostar U-100 Insulin) fentanyl 75 mcg/hr transdermal 1 patch transdermal Q72H 1 month 01/17/24 09/13/24 09/13/24 patch #10 ea hydromorphone 8 mg tablet 8 mg PO TID PRN very severe bone 08/20/24 09/13/24 Unknown (Dilaudid) mets related cancer pain metoclopramide HCl 10 mg tablet 10 mg PO .1-2X A DAY PRN n/v 08/20/24 09/13/24 Unknown olanzapine 5 mg tablet (Zyprexa) 5 mg PO BID PRN n/v 08/20/24 09/13/24 Unknown oxycodone 30 mg tablet 45 - 60 mg PO Q4H PRN Severe Pain 08/20/24 09/13/24 09/13/24 (Scale Score 7-10) Active Medications Generic Name Dose Route Start Last Admin Trade Name Freq PRN Reason Stop Dose Admin Enoxaparin Sodium 40 mg 09/14/24 21:00 09/19/24 21:31 Enoxaparin Inj 40 Mg/0.4 Ml Syr SQ 10/14/24 20:59 Not Given QPM JESSE Fentanyl 1 patch 09/16/24 09:00 09/19/24 09:09 Fentanyl 75 Mcg/Hr Tdsy TD 09/30/24 08:59 1 patch Q72H JESSE Administration Heparin Sodium (Porcine) 5 ml 09/14/24 03:41 09/19/24 21:49 Heparin 100 Unit/Ml 5ml Flush FLUSH 10/14/24 03:40 5 ml PRN PRN Administration Flush Hydromorphone HCl 30 mg 09/15/24 08:32 09/20/24 06:56 Hydromorphone Cable Splicer 30 Mg/30 Ml IV 09/29/24 08:31 30 mg PRN PRN Administration INSTRUMENT CHECKER Pain Titration Protocol Promethazine HCl 12.5 mg in 50.5 mls @ 202 mls/hr 09/14/24 02:03 09/19/24 22:05 Phenergan IV 10/14/24 02:02 Infused Q6H PRN Infusion Nausea And Vomiting Sodium Chloride 1,000 mls @ 15 mls/hr 09/15/24 08:45 09/20/24 09:16 Nss IV 09/29/24 08:33 15 mls/hr .Q24H JESSE Administration Folic Acid 1 mg/ Syringe 10 mls @ 5 mls/min 09/20/24 09:00 09/20/24 08:19 IV 10/20/24 08:59 5 mls/min QAM JESSE Administration Magnesium Sulfate/Dextrose 1 gm in 100 mls @ 50 mls/hr 09/20/24 08:45 09/20/24 09:16 Magnesium Sulfate / D5w IV 09/20/24 14:44 50 mls/hr Q2H JESSE Administration Insulin Aspart 0 units 09/14/24 16:30 09/20/24 08:28 Insulin Aspart Per Unit Charge SC 10/14/24 02:59 6 units ACHS JESSE Administration Insulin Glargine 7 units 09/19/24 09:00 09/20/24 08:29 Lantus Per Unit Charge SC 10/17/24 08:59 7 units BID JESSE Administration Miscellaneous 1 each 09/16/24 08:59 09/19/24 09:09 Fentanyl Patch Remove & Waste N/A 10/16/24 08:58 1 each [id number]@0859 JESSE Administration Miscellaneous 1 each 09/14/24 02:03 09/20/24 08:18 Check Fentanyl Patch Placement N/A 10/14/24 02:02 1 each QS JESSE Administration Nystatin 1 appln 09/16/24 21:00 09/20/24 08:19 Nystatin Powder 15gm Btl EXT 10/16/24 20:59 1 appln BID JESSE Administration Ondansetron HCl 4 mg 09/14/24 02:03 09/14/24 06:25 Ondansetron Inj 2 Mg/Ml 2 Ml Vial IV 10/14/24 02:02 4 mg Q4H PRN Administration Nausea Polyethylene Glycol 17 gm 09/18/24 09:00 09/20/24 08:19 Polyethylene (Miralax) 17 Gm Pack PO 10/18/24 08:59 Not Given BID JESSE Senna/Docusate Sodium 2 tab 09/19/24 21:00 09/20/24 08:18 Docusate Sodium/Senna 50/8.6mg Tab PO 10/19/24 20:59 Not Given BID JESSE PG Care Time/CCT Total # of Minutes Spent Total Time Spent with Patient: Total time spent is greater than 50% in coordination of care (as documented) at patient's floor/unit and/or counseling patient: Coding Level of Care Code 29182 SUB INP/OBS CARE 2/35MIN Diagnoses Hypercalcemia of malignancy E83.52 Pathological fracture of left hip due to neoplastic disease, initial encounter M84.552A Encounter type: initial encounter Laterality: left Closed nondisplaced fracture of greater trochanter of left femur, initial encounter S72.115A Encounter type: initial encounter Fracture alignment: nondisplaced Type 2 diabetes mellitus with hyperglycemia E11.65 Cancer related pain G89.3 Carcinoma of breast metastatic to bone, unspecified laterality C50.919; C79.51 Laterality: unspecified laterality Therapeutic opioid-induced constipation (OIC) K59.03; T40.2X5A Opioid-induced insomnia F11.982 (2) 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 Encounter type: initial encounter Laterality: left Qualified Code(s): M84.552A - Pathological fracture in neoplastic disease, left femur, initial encounter for fracture (3) Closed fracture of greater trochanter of left femur Encounter type: initial encounter Fracture alignment: nondisplaced Qualified Code(s): S72.115A - Nondisplaced fracture of greater trochanter of left femur, initial encounter for closed fracture (6) Breast cancer metastasized to bone Laterality: unspecified laterality Qualified Code(s): C50.919 - Malignant neoplasm of unspecified site of unspecified female breast; C79.51 - Secondary malignant neoplasm of bone
--- NOTE | 2024-09-20 10:03 | Palliative Care Progress Note ---
Date of Service September 20, 2024 Assessment & Plan (1) Cancer related pain: Plan: Per previous palliaitive Care notes: 09/19/24: Her insurance does not cover long acting Oxy or MS Contin and Yamilka cannot tolerate more than TDF 75mcg dose. We reviewed Methadone which we have had prior conversations about but for now she declines. Due to her ongoing chronic but intermittent issues with refractory n/v, it is best to keep her on TDF to assure she has some long acting pain med on board. Therefore for now will plan to resume OxyIR 60mg PO q4h prn cancer pain/Hold for somnolence or RR less than 14; please document RR with each dose administration. We will plan to start a transition to PO meds tomorrow, with dilaudid 2mg IV q6h prn very severe pain unrelieved by oral meds. Today: patient reports adequate pain relief and has had decreasing use of FAMILY SERVICES ASSISTANT over past 24hrs as would be expected for typical post operative pain trajectory. Discussed transition to PO medications for BTP in preparation for discharge. She is agreeable. Discontinue FAMILY SERVICES ASSISTANT Resume OxyIR 60mg PO q4h prn cancer pain/Hold for somnolence or RR less than 14 - document RR with each dose administration Added dilaudid 2mg IV q6h prn very severe pain unrelieved by oral meds. (2) Therapeutic opioid-induced constipation (OIC): Plan: Continue bowel regimen as ordered; if no BM in 48hr or any inc n/v, please obtain KUB to assess for obstruction (3) Chemotherapy-induced peripheral neuropathy: Plan: pt does flexing exercises to control chronic numbness/tingling in feet, she shares that escalating doses of Neurontin have not offered relief and she does not wish to trial any medication for her neuropathy. (4) Weakness generalized: Plan: Pt agreeable to acute IPR on discharge (5) Refractory nausea and vomiting: Plan: resolved (6) Breast cancer metastasized to multiple sites: (7) Palliative care by specialist: Plan: Palliative care will continue to follow for ongoing symptom managment and patient support. Plan As above. Plan for RT with Dr Miguel in 3-4 weeks after wounds healed and trial of rehab/strength improves . Admission and Anticipated Discharge Date Admission Date: September 13, 2024 Subjective Assessed pt at bedside, She was drowsy but arousable and oriented x4. GUS. Pt shared that pain well managed and she is looking forward to discharge in upcoming days. She is considering IPR to optimize strength and independence prior to return home. Plan for transition to PO pain meds in preparation for discharge. Review of Systems Review of Systems: All systems reviewed & are unremarkable except as noted in Subjective Physical Exam Constitutional: + ill appearing, + frail appearing, coop erative and comfortable bitemp wasting, chemo related alopecia Eyes: PERRL, conjunctivae normal, anicteric sclerae ENMT: external ear and nose normal, oropharynx normal Neck: trachea midline, no thyromegaly Cardiovascular: RRR, no murmur, no edema Gastrointestinal (Abdomen): normal bowel sounds, soft, nontender, no hepatosplenomegaly Musculoskeletal: generalized weakness, R hip tenderness Skin: + turgor decreased and + pallor Neurologic: PERRL, EOMI, accommodation nl, no face palsy, no dysarthria Psychiatric: Orientation: oriented x 3 Affect: + flat affect Results & Data Vital Signs (Past 12 Hours) Vital Signs Temp Pulse Pulse Resp BP Pulse Ox O2 Del Method 09/20/24 07:28 37.2 C 84 18 130/70 100 Nasal Cannula 09/20/24 03:02 37 C 87 18 138/83 98 Room Air 09/19/24 23:07 37.2 C 90 18 135/81 99 Room Air O2 Flow Rate 09/20/24 07:28 2 09/20/24 03:02 2 09/19/24 23:07 Laboratory Results Abnormal lab results 09/19/24 09/19/24 09/19/24 Range/Units 11:36 16:32 20:51 Hgb (12.0-16.0) g/dl BUN/Creatinine Ratio (10-20) Glucose (70-99(Fasting)) mg/dl POC Glucose 108 H 187 H 156 H (70-99) mg/dl Calcium (8.6-10.3) mg/dl 09/20/24 09/20/24 Range/Units 06:14 07:22 Hgb 7.5 L (12.0-16.0) g/dl BUN/Creatinine Ratio 21.2 H (10-20) Glucose 135 H (70-99(Fasting)) mg/dl POC Glucose 150 H (70-99) mg/dl Calcium 11.3 H (8.6-10.3) mg/dl Diagnostic Findings Femur CT 09/13/24 20:45 Exam(s): CT EXTREMITY LEFT LOWER Without Contrast EXAM: CT Left Lower Extremity Without Intravenous Contrast CLINICAL HISTORY: pain, fall, cancer. TECHNIQUE: Axial computed tomography images of the left lower extremity without intravenous contrast. CTDI is 24.91 mGy and DLP is 1300.17 mGy-cm. Automated exposure control was utilized for the study. A dose lowering technique was utilized adhering to the principles of ALARA. COMPARISON: No relevant prior studies available. FINDINGS: Bones/joints: Diffuse extensive osseous metastatic disease throughout the included skeletal structures with near complete resorption of the posterior column of the acetabulum and near complete resorption of the base of the left femoral neck. There is a nondisplaced fracture involving the lateral aspect of the left greater trochanter, best appreciated on coronal reformatted imaging. No dislocation. Soft tissues: Unremarkable. IMPRESSION: Extensive osseous metastatic disease. There is a nondisplaced fracture involving the lateral aspect of the left greater trochanter, best appreciated on coronal reformatted imaging. The remaining osseous structures are intact; however, there is near complete resorption at the base of the left femoral neck. The patient is considered high risk for pathologic fracture. Electronically signed by: Jeovany Ramirez MD 09/13/24 23:02 PM Hip X-Ray 09/14/24 00:00 FL hip LT 2-3V CLINICAL HISTORY: LEFT HIPfemoral nail COMPARISON STUDY: None pertinent FLUOROSCOPY TIME: 93.7 seconds FLUOROSCOPY IMAGES: 5 EXPOSURE DOSE: 21.91 mGy FINDINGS: Image guidance provided for femoral nail IMPRESSION: Refer to procedural report for evaluation based on real-time fluoroscopic observation. ACT 112: Negative or not required by law. Electronically signed by: Kyra Augustin M.D. 09/14/2024 3:47 PM Skeletal Survey 09/14/24 08:25 SKELETAL SURVEY CLINICAL HISTORY: Breast cancer. Metastatic bone disease. COMPARISON STUDY: Nuclear bone scan dated 08/14/2024. CT scan of the chest, abdomen, and pelvis dated 08/14/2024. CT scan of the left femur dated 09/13/2024. FINDINGS: 18 radiographs from a skeletal survey are presented as part of a skeletal survey. Again seen are findings of extensive/diffuse mixed lytic/blastic bony metastatic disease. This has not appreciably changed from the recent nuclear bone scan and staging CT scans. There are numerous chronic/healed bilateral rib fractures. There is also a subacute/healing pathologic fracture of the manubrium. A large and predominantly lytic lesion in the right humeral shaft may place the patient risk for additional pathologic fracture. Fracture through the greater trochanter of the left proximal femur is again noted. Extensive lytic disease in the left proximal femur may place the patient risk for additional pathologic fracture. No significant spinal compression fracture is identified by x-ray. A left subclavian central venous infusion port is in place. The patient is edentulous. Cholecystectomy clips are noted in the right upper quadrant. Mesh material and additional clips project over the pelvis. Foci of parenchymal scarring are noted in both lungs. No airspace consolidation or p leural effusion identified. There is no bowel obstruction. IMPRESSION: 1. Extensive mixed lytic/blastic bony metastatic disease is similar in appearance to recent prior studies. 2. Fracture is again seen through the greater trochanter of the left proximal femur. 3. There is a subacute/healing pathologic fracture of the manubrium. 4. Note that the degree of lytic metastatic disease place the patient risk for additional pathologic fractures. This appears greatest in the mid right humeral shaft and the left proximal femur. Electronically signed by: Brant Evans M.D. 09/14/2024 11:00 AM Femur X-Ray 09/14/24 16:15 INDICATION: Postoperative evaluation. Pain TECHNIQUE: 2 views of the left femur were obtained. COMPARISON: None FINDINGS: Interval placement of an intramedullary evita and interlocking screws in the left femur. No displaced acute osseous process is identified. Expected postsurgical changes of the soft tissues. Redemonstrated diffuse sclerotic and lytic metastatic disease. IMPRESSION: Interval placement of an intramedullary evita and interlocking screws in the left femur with expected postsurgical changes of the soft tissues. Electronically signed by Jack Jordan 09-14-2024 6:11 PM Forearm X-Ray 09/19/24 16:14 Study: Right forearm 2 views History: Pain Comparison: 04/17/2024 Findings: There is no acute fracture or dislocation. Alignment is anatomic. Joint spaces are well maintained. There is no joint effusion or significant soft tissue swelling. Moderate lucencies within the proximal radius and distal humerus are seen with endosteal scalloping, and with lesions extending into the outer borders of the cortex. A few isolated, discrete lucent lesions are also seen at the proximal olecranon process as well as the mid diaphysis of the ulna. Impression: No acute bony abnormality. Bony metastases. Electronically signed by Ruben Mckeon 09-19-2024 5:18 PM Medications Administered Current Inpatient Medications Dextrose (Dextrose 50% 50 Ml Syringe) 25 - 50 ml IV UD PRN; Protocol PRN Reason: Hypoglycemia Protocol Stop: 10/14/24 02:02 Enoxaparin Sodium (Enoxaparin Inj 40 Mg/0.4 Ml Syr) 40 mg SQ QPM JESSE Stop: 10/14/24 20:59 Last Admin: 09/19/24 21:31 Dose: Not Given Fentanyl (Fentanyl 75 Mcg/Hr Tdsy) 1 patch TD Q72H JESSE Stop: 09/30/24 08:59 Last Admin: 09/19/24 09:09 Dose: 1 patch Glucagon (Glucagon For Inj 1 Mg Vial) 1 mg SQ UD PRN; Protocol PRN Reason: Hypoglycemia Protocol Stop: 10/14/24 02:02 Glucose (Glucose 40% Gel 15 Gm Tube) 15 - 30 gm PO UD PRN; Protocol PRN Reason: Hypoglycemia Protocol Stop: 10/14/24 02:02 Glucose (Glucose 10 Tab/Tube) 4 - 8 tab PO UD PRN; Protocol PRN Reason: Hypoglycemia Protocol Stop: 10/14/24 02:02 Heparin Sodium (Porcine) (Heparin 100 Unit/Ml 5ml Flush) 5 ml FLUSH PRN PRN PRN Reason: Flush Stop: 10/14/24 03:40 Last Admin: 09/19/24 21:49 Dose: 5 ml Hydromorphone HCl (Hydromorphone [employer] 30 Mg/30 Ml) 30 mg IV PRN PRN; Protocol PRN Reason: FAMILY SERVICES ASSISTANT Pain Titration Stop: 09/29/24 08:31 Last Admin: 09/20/24 06:56 Dose: 30 mg Hydromorphone HCl (Hydromorphone Bolus From [employer]or) 1.5 mg IV Q30M PRN PRN Reason: FAMILY SERVICES ASSISTANT pain relief or activity Stop: 09/29/24 08:31 Promethazine HCl (Phenergan) 12.5 mg in 50.5 mls @ 202 mls/hr IV Q6H PRN PRN Reason: Nausea And Vomiting Stop: 10/14/24 02:02 Last Infusion: 09/19/24 22:05 Dose: Infused Sodium Chloride (Nss) 1,000 mls @ 15 mls/hr IV .Q24H [facility] Stop: 09/29/24 08:33 Last Admin: 09/20/24 09:16 Dose: 15 mls/hr Folic Acid 1 mg/ Syringe 10 mls @ 5 mls/min IV QAM [facility] Stop: 10/20/24 08:59 Last Admin: 09/20/24 08:19 Dose: 5 mls/min Magnesium Sulfate/Dextrose (Magnesium Sulfate / D5w) 1 gm in 100 mls @ 50 mls/hr IV Q2H [facility] Stop: 09/20/24 14:44 Last Admin: 09/20/24 09:16 Dose: 50 mls/hr Zoledronic Acid 5 mg/ EMPTY (BAG) 101 mls @ 400 mls/hr IV ONE ONE Stop: 09/20/24 10:01 Insulin Aspart (Insulin Aspart Per Unit Charge) 0 units SC ACHS [facility] Stop: 10/14/24 02:59 Last Admin: 09/20/24 08:28 Dose: 6 units Insulin Glargine (Lantus Per Unit Charge) 7 units SC BID [facility] Stop: 10/17/24 08:59 Last Admin: 09/20/24 08:29 Dose: 7 units Miscellaneous (Carbohydrates For Hypoglycemia ) 15 - 30 gm PO UD PRN PRN Reason: Hypoglycemia Protocol Stop: 10/14/24 02:02 Miscellaneous (Fentanyl Patch Remove & Waste) 1 each N/A Q3D@0859 [facility] Stop: 10/16/24 08:58 Last Admin: 09/19/24 09:09 Dose: 1 each Miscellaneous (Check Fentanyl Patch Placement) 1 each N/A QS [facility] Stop: 10/14/24 02:02 Last Admin: 09/20/24 08:18 Dose: 1 each Miscellaneous Information (Pharmacy Glycemic Mgmt Consult) 1 each N/A UD PRN PRN Reason: Consult Stop: 10/14/24 02:02 Naloxone HCl (Naloxone Hcl 0.4 Mg/1 Ml Vial/Carp) 0.1 mg IV Q5M PRN PRN Reason: Oversedation/Resp Depression Stop: 10/14/24 02:02 Naloxone HCl (Naloxone Hcl 0.4 Mg/1 Ml Vial/Carp) 0.1 mg IV Q5M PRN; Protocol PRN Reason: Oversedation/Resp Depression Stop: 09/29/24 08:31 Nystatin (Nystatin Powder 15gm Btl) 1 appln EXT BID JESSE Stop: 10/16/24 20:59 Last Admin: 09/20/24 08:19 Dose: 1 appln Ondansetron HCl (Ondansetron Inj 2 Mg/Ml 2 Ml Vial) 4 mg IV Q4H PRN PRN Reason: Nausea Stop: 10/14/24 02:02 Last Admin: 09/14/24 06:25 Dose: 4 mg Polyethylene Glycol (Polyethylene (Miralax) 17 Gm Pack) 17 gm PO BID [facility] Stop: 10/18/24 08:59 Last Admin: 09/20/24 08:19 Dose: Not Given Polyethylene Glycol (Polyethylene (Miralax) 17 Gm Pack) 17 gm PO DAILY PRN PRN Reason: Constipation Stop: 10/19/24 12:34 Senna/Docusate Sodium (Docusate Sodium/Senna 50/8.6mg Tab) 2 tab PO BID [facility] Stop: 10/19/24 20:59 Last Admin: 09/20/24 08:18 Dose: Not Given PG Care Time/CCT Total # of Minutes Spent Total Time Spent with Patient: Total time spent is greater than 50% in coordination of care (as documented) at patient's floor/unit and/or counseling patient: Coding [place] [address] SUB INP/OBS CARE 2/35MIN Patient Type Established History Expanded Problem Focused Exam Expanded Problem Focused Medical Decision Making Moderate Complexity Diagnoses Cancer related pain G89.3 Therapeutic opioid-induced constipation (OIC) K59.03; T40.2X5A 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
[2024-09-20] MEDS: ZOLEDRONIC ACID 4 MG in NS MINI-B 100 ML IV ONE (10:44)
[2024-09-20] MEDS: ZOLEDRONIC ACID 5 MG in EMPTY BAG 1 ML IV ONE (12:15)
[2024-09-20] MEDS: HYDROmorphone INJ 2 MG/ML SYR/VIAL IV PRN (17:55)
--- NOTE | 2024-09-21 09:40 | Hospitalist Progress Note ---
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 #Hypercalcemia of Malignancy Pending repeat laboratory assessment on 09/21; trend 10.4, 11.3; associated symptoms include constipation, anorexia; elevated BUN/Cr is likely consequential of diminished ECF i/s/o hypercalcemia; diminished vitamin D is likely physiologic in the setting of hypercalcemia, would not recommend vitamin D supplementation until further assessed in the outpatient setting -Continue telemetry given their degree of hypercalcemia -Measure and document I/O every shift -Zoledronic acid 4 mg IV one-time was administered 09/20 -If p.o. intake does not improve, anticipate starting intermittent IVF for volume resuscitation -Follow daily RFP, serum magnesium #Left pathological greater trochanteric fracture i/s/o stage IV breast cancer Post operative day 7 from left trochanteric nail fixation; Palliative medicine primarily managing analgesic regimen, HOT BILLET SHEAR OPERATOR discontinued 09/20 -Continue physical and occupational therapy -Continued discussions regarding discharge home with home health versus placement; the patient requires positioning of the body in ways not feasible with an ordinary bed in order to alleviate pain, thus a hospital bed has been ordered at discharge -Outpatient care provided by Dr Plascencia (active chemotherapy with Eribulin) and Dr Limon #Anemia of Chronic Disease with iatrogenic loss Required 2 units PRBC during hospitalization; recent trend 7.4, 7.5 #Type II Diabetes Mellitus with hyperglycemia - HbA1C 7.9% - Pharmacy assisting with adjustment of therapy #Therapeutic opioid dependence i/s/o cancer related pain consequential of osseous metastases Chronic condition; currently without significant abdominal discomfort or urinary retention; at this time continue current regimen Admission and Anticipated Discharge Date Admission Date: September 13, 2024; Anticipate discharge within the next 48 to 72 hours Subjective Ms. Vega is a 49-year-old female who was admitted to [facility] on 09/13 due to persistent left hip pain found to have an occult left greater trochanteric fracture consequential of a fall in the setting of osseous metastases from their previously diagnosed breast cancer. The patient is now postoperative day 6 from left trochanteric nail fixation. The postoperative course has been complicated by difficult to manage pain superimposed on their chronic osseous metastatic pain, palliative care has been assisting with this. No acute overnight events; pain has been well-controlled since weaning off of the previously prescribed HOT BILLET SHEAR OPERATOR on 09/20. She anticipates her niece will be visiting today to practice transfers with PT and OT. She is hopeful for discharge in the next 48 hours. Review of Systems Review of Systems: Constitutional: denies fevers, chills, malaise, fatigue Cardiovascular: Endorses unchanged left lower extremity edema from previous days; denies angina, palpitations, syncope Pulmonary: denies cough, dyspnea on exertion, pleuritic chest pain Gastrointestinal: Endorses chronic constipation unchanged from prior; denies nausea, hematemsis, emesis, dyspepsia, abdominal distension, diarrhea, melanotic stool Genitourinary: denies dysuria, hematuria, urinary incontinence Neurologic: denies focal weakness, paresthesias or numbness Musculoskeletal: denies new arthralgias, progressive weakness Integumentary: denies new or developing rashes or lesions Physical Exam Physical Exam: General: Adult female in no acute distress, appears older than documented age Vital Signs: Reviewed HEENT: Normocephalic, atraumatic; pupils equally reactive to light, extraocular motions intact; moist mucous membranes Cardiovascular: Regular rate and rhythm with no murmurs, rubs, or gallops; S1 and S2 normal; bilateral radial and posterior tibial pulses 2+; left lower extremity trace pitting edema greater than right Gastrointestinal: Soft, nondistended; normal frequency and pitch of bowel sounds throughout; no palpable masses or organomegaly Musculoskeletal: Left lateral thigh around the operative area has a appropriately healing ecchymosis; dressing over the wound was not removed at the time of my exam; patient is ambulatory with maximum two-person assistance though is able to ambulate Neurologic: CN II-XII grossly intact; no discernible focal weakness nor paresthesias Results & Data Results & Data Vital Signs (Past 12 Hours) Vital Signs Temp Pulse Resp BP Pulse Ox O2 Del Method 09/21/24 07:33 37 C 92 H 14 113/72 92 Room Air 09/21/24 07:30 Room Air Laboratory Results 09/21/24 09/20/24 09/20/24 07:29 20:22 16:27 POC Glucose 147 H 167 H 200 H PG Care Time/CCT Total # of Minutes Spent Total Time Spent with Patient: Total time spent is greater than 50% in coordination of care (as documented) at patient's floor/unit and/or counseling patient: Coding Level of Care Code 12681 SUB INP/OBS CARE 3/50MIN History Detailed Exam Detailed Diagnoses Hypercalcemia of malignancy E83.52 Pathological fracture of left hip due to neoplastic disease, initial encounter M84.552A Encounter type: initial encounter Laterality: left Closed nondisplaced fracture of greater trochanter of left femur, initial encounter S72.115A Encounter type: initial encounter Fracture alignment: nondisplaced Type 2 diabetes mellitus with hyperglycemia, with long-term current use of insulin E11.65; Z79.4 Diabetes mellitus group home insulin use: with intermodal customer service use Cancer related pain G89.3 Carcinoma of breast metastatic to bone, unspecified laterality C50.919; C79.51 Laterality: unspecified laterality Therapeutic opioid-induced constipation (OIC) K59.03; T40.2X5A Opioid-induced insomnia F11.982 (2) 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 Encounter type: initial encounter Laterality: left Qualified Code(s): M84.552A - Pathological fracture in neoplastic disease, left femur, initial encounter for fracture (3) Closed fracture of greater trochanter of left femur Encounter type: initial encounter Fracture alignment: nondisplaced Qualified Code(s): S72.115A - Nondisplaced fracture of greater trochanter of left femur, initial encounter for closed fracture (4) Type 2 diabetes mellitus with hyperglycemia Diabetes mellitus intermodal customer service insulin use: with intermodal customer service use Qualified Code(s): E11.65 - Type 2 diabetes mellitus with hyperglycemia; Z79.4 - alf (current) use of insulin (6) Breast cancer metastasized to bone Laterality: unspecified laterality Qualified Code(s): C50.919 - Malignant neoplasm of unspecified site of unspecified female breast; C79.51 - Secondary malignant neoplasm of bone
[2024-09-21 10:19] LABS: Anion Gap 6.0 (3-11); Blood Urea Nitrogen 21.0 mg/dl (6-23); Calcium 10.8 mg/dl (8.6-10.3); Carbon Dioxide 30.0 mmol/L (21-32); Chloride 99.0 mmol/L (98-107); Creatinine Clr Calc Pharmacy 86.5 ml/min; Glucose 135.0 mg/dl (70-99(Fasting)); Magnesium 1.7 mg/dl (1.7-2.4); Potassium 3.9 mmol/L (3.5-5.1); Sodium 135.0 mmol/L (136-145)
--- NOTE | 2024-09-22 11:07 | Pharmacy Report ---
Pharmacy Glycemic Short Note 2 - Date of Service September 22, 2024 - Glycemic Short OUTPATIENT ANTIDIABETIC REGIMEN: * Lantus 10 units SQ BID * NovoLOG SSI TIDM * HbA1c 7.9% (07/13/24) ASSESSMENT: 09/22/24: * Patient is more frequently refusing blood sugar checks/insulin (per RN, to give fingers a break) * Hospitalist is aware * Will leave current orders active - no changes 09/20/24: * Blood sugars remain reasonably well-controlled * Patient has been intermittently refusing bolus insulin * Fasting blood sugar elevated yesterday and patient accepting basal (dose increased yesterday) 09/18/24: * Blood sugars have been reasonably controlled over past 48 hours * Anticipating only minor changes ongoing 09/15 * Yamilka received 48 units of insulin yesterday (25 were basal) * Fasting BSG this AM within goal range, will continue with a basal scale at this time. * NovoLog loosened back to previous parameters as steroid effects wearing off at this time. 09/14: * Yamilka is a 49 year old female admitted with left hip fracture and a history of breast cancer metastasized to bone and type 2 diabetes mellitus. Pharmacy has been consulted to assist with glycemic management while inpatient. * NPO this AM for hip surgery, conservative basal insulin started at 50% reported home basal dosage. Currently in procedure, but dexamethasone 4mg IV pulled preoperatively. Will give full home basal dose after procedure to help cover for steroid induced hyperglycemia. * NovoLog at a weight based stress of 3 with steroids administration PLAN FOR INPATIENT GLYCEMIC CONTROL: * Basal insulin * Lantus 7 units SC BID * Bolus insulin * NovoLog per scale ACHS or Q6hrs while NPO * Goal Range: Low 120 mg/dL - High 160 mg/dL * Correction Factor: 45 mg/dL/unit * Nutritional / Prandial insulin per carb ratio of 1 unit per 15 grams CHO consumed
--- NOTE | 2024-09-22 13:56 | Palliative Care Progress Note ---
Date of Service September 22, 2024 Assessment & Plan (1) Cancer related pain: Plan: Oxy IR 15mg PO q4h prn mild to mod pain Oxy IR 30mg PO q4h prn mod to sev pain Dilaudid 2mg IV q6h prn very severe pain not relieved by oral meds (2) Therapeutic opioid-induced constipation (OIC): Plan: Bowel regimen ordered if no BM in 48hr or any inc n/v, please obtain KUB to assess for obstruction (3) Chemotherapy-induced peripheral neuropathy: (4) Weakness generalized: Plan: Hopeful to get her to acute IPR (5) Refractory nausea and vomiting: (6) Breast cancer metastasized to multiple sites: (7) Palliative care by specialist: Plan As above. IPR declined her Now waiting on SNF rehab options Thank you for allowing us to participate in the ongoing care of this patient. Please page with any additional concerns. Pilar Limon DNP Director, Palliative Medicine Admission and Anticipated Discharge Date Admission Date: September 13, 2024 Subjective pain is ok her cell phone got lost with bed linen change last night, she is upset bc she is missing her virtual court child support hearing. She can only join from her phone and does not have contact # for the court had 1 episode of n/v not in a great mood did not like Gelatein Review of Systems Review of Systems: All systems reviewed & are unremarkable except as noted in Subjective Physical Exam Constitutional: + frail appearing and cooperative bitemp wasting, chemo related alopecia Eyes: PERRL, conjunctivae normal, anicteric sclerae ENMT: Mouth: + dry oral mucous membranes and + poor dentition Neck: trachea midline, no thyromegaly Cardiovascular: RRR, no murmur, no edema Gastrointestinal (Abdomen): dim BS, non tender, mild distension Musculoskeletal: generalized weakness, R hip tenderness. surgical wound dressing CDI scatt ecchymoses. ROM limited Skin: + turgor decreased and + pallor Neurologic: AAOx3 Psychiatric: Orientation: cooperative Affect: euthymic affect Results & Data Vital Signs (Past 12 Hours) Vital Signs Temp Pulse Resp BP Pulse Ox O2 Del Method 09/22/24 07:45 Room Air 09/22/24 07:33 37.1 C 84 16 96/57 L 95 Room Air Laboratory Results 09/21/24 09/21/24 09/20/24 Range/Units 09:37 07:29 20:22 WBC (4.8-10.8) K/ul RBC (4.20-5.40) M/uL Hgb (12.0-16.0) g/dl Hct (37.0-47.0) % MCV (80.0-100.0) fL MCH (25.0-34.0) pg MCHC (32.0-36.0) g/dL RDW Std Deviation (36.4-46.3) fL RDW Coeff of Joshua (11.5-14.5) % Plt Count (130-400) K/uL MPV (9.4-12.4) fL Sodium 135 L (136-145) mmol/L Potassium 3.9 (3.5-5.1) mmol/L Chloride 99 (98-107) mmol/L Carbon Dioxide 30 (21-32) mmol/L Anion Gap 6 (3-11) BUN 21 (6-23) mg/dl Creatinine 0.90 (0.6-1.2) mg/dl Est Cr Clr Drug Dosing 86.5 ml/min eGFR 79.35 BUN/Creatinine Ratio 23.3 H (10-20) Glucose 135 H (70-99(Fasting)) mg/dl POC Glucose 147 H 167 H (70-99) mg/dl Calcium 10.8 H (8.6-10.3) mg/dl Ionized Calcium 1.57 H (1.12-1.32) mmol/L Phosphorus 4.0 (2.5-4.9) mg/dl Magnesium 1.7 (1.7-2.4) mg/dl Albumin 2.8 L (3.4-5.0) gm/dl 25-OH Vitamin D Total (30-100) ng/ml Folate (>5.38) ng/ml Blood Type Antibody Screen Crossmatch 09/20/24 09/20/24 09/20/24 Range/Units 16:27 07:22 06:14 WBC (4.8-10.8) K/ul RBC (4.20-5.40) M/uL Hgb 7.5 L (12.0-16.0) g/dl Hct (37.0-47.0) % MCV (80.0-100.0) fL MCH (25.0-34.0) pg MCHC (32.0-36.0) g/dL RDW Std Deviation (36.4-46.3) fL RDW Coeff of Joshua (11.5-14.5) % Plt Count (130-400) K/uL MPV (9.4-12.4) fL Sodium 136 (136-145) mmol/L Potassium 4.0 (3.5-5.1) mmol/L Chloride 100 (98-107) mmol/L Carbon Dioxide 32 (21-32) mmol/L Anion Gap 4 (3-11) BUN 18 (6-23) mg/dl Creatinine 0.85 (0.6-1.2) mg/dl Est Cr Clr Drug Dosing 91.6 ml/min eGFR 84.98 BUN/Creatinine Ratio 21.2 H (10-20) Glucose 135 H (70-99(Fasting)) mg/dl POC Glucose 200 H 150 H (70-99) mg/dl Calcium 11.3 H (8.6-10.3) mg/dl Ionized Calcium (1.12-1.32) mmol/L Phosphorus (2.5-4.9) mg/dl Magnesium 1.7 (1.7-2.4) mg/dl Albumin (3.4-5.0) gm/dl 25-OH Vitamin D Total (30-100) ng/ml Folate (>5.38) ng/ml Blood Type Antibody Screen Crossmatch 09/19/24 09/19/24 09/19/24 Range/Units 20:51 16:32 11:36 WBC (4.8-10.8) K/ul RBC (4.20-5.40) M/uL Hgb (12.0-16.0) g/dl Hct (37.0-47.0) % MCV (80.0-100.0) fL MCH (25.0-34.0) pg MCHC (32.0-36.0) g/dL RDW Std Deviation (36.4-46.3) fL RDW Coeff of Joshua (11.5-14.5) % Plt Count (130-400) K/uL MPV (9.4-12.4) fL Sodium (136-145) mmol/L Potassium (3.5-5.1) mmol/L Chloride (98-107) mmol/L Carbon Dioxide (21-32) mmol/L Anion Gap (3-11) BUN (6-23) mg/dl Creatinine (0.6-1.2) mg/dl Est Cr Clr Drug Dosing ml/min eGFR BUN/Creatinine Ratio (10-20) Glucose (70-99(Fasting)) mg/dl POC Glucose 156 H 187 H 108 H (70-99) mg/dl Calcium (8.6-10.3) mg/dl Ionized Calcium (1.12-1.32) mmol/L Phosphorus (2.5-4.9) mg/dl Magnesium (1.7-2.4) mg/dl Albumin (3.4-5.0) gm/dl 25-OH Vitamin D Total (30-100) ng/ml Folate (>5.38) ng/ml Blood Type Antibody Screen Crossmatch 09/19/24 09/19/24 09/18/24 Range/Units 07:43 05:50 20:37 WBC (4.8-10.8) K/ul RBC (4.20-5.40) M/uL Hgb 7.4 L (12.0-16.0) g/dl Hct 22.3 L (37.0-47.0) % MCV (80.0-100.0) fL MCH (25.0-34.0) pg MCHC (32.0-36.0) g/dL RDW Std Deviation (36.4-46.3) fL RDW Coeff of Joshua (11.5-14.5) % Plt Count (130-400) K/uL MPV (9.4-12.4) fL Sodium 136 (136-145) mmol/L Potassium 3.9 (3.5-5.1) mmol/L Chloride 100 (98-107) mmol/L Carbon Dioxide 31 (21-32) mmol/L Anion Gap 5 (3-11) BUN 21 (6-23) mg/dl Creatinine 0.84 (0.6-1.2) mg/dl Est Cr Clr Drug Dosing 92.7 ml/min eGFR 86.20 BUN/Creatinine Ratio 25.0 H (10-20) Glucose 174 H (70-99(Fasting)) mg/dl POC Glucose 181 H 210 H (70-99) mg/dl Calcium 10.6 H (8.6-10.3) mg/dl Ionized Calcium (1.12-1.32) mmol/L Phosphorus (2.5-4.9) mg/dl Magnesium 1.5 L (1.7-2.4) mg/dl Albumin (3.4-5.0) gm/dl 25-OH Vitamin D Total (30-100) ng/ml Folate 6.92 (>5.38) ng/ml Blood Type Antibody Screen Crossmatch 09/18/24 09/18/24 09/18/24 Range/Units 16:34 11:17 07:50 WBC (4.8-10.8) K/ul RBC (4.20-5.40) M/uL Hgb (12.0-16.0) g/dl Hct (37.0-47.0) % MCV (80.0-100.0) fL MCH (25.0-34.0) pg MCHC (32.0-36.0) g/dL RDW Std Deviation (36.4-46.3) fL RDW Coeff of Joshua (11.5-14.5) % Plt Count (130-400) K/uL MPV (9.4-12.4) fL Sodium (136-145) mmol/L Potassium (3.5-5.1) mmol/L Chloride (98-107) mmol/L Carbon Dioxide (21-32) mmol/L Anion Gap (3-11) BUN (6-23) mg/dl Creatinine (0.6-1.2) mg/dl Est Cr Clr Drug Dosing ml/min eGFR BUN/Creatinine Ratio (10-20) Glucose (70-99(Fasting)) mg/dl POC Glucose 196 H 153 H 114 H (70-99) mg/dl Calcium (8.6-10.3) mg/dl Ionized Calcium (1.12-1.32) mmol/L Phosphorus (2.5-4.9) mg/dl Magnesium (1.7-2.4) mg/dl Albumin (3.4-5.0) gm/dl 25-OH Vitamin D Total (30-100) ng/ml Folate (>5.38) ng/ml Blood Type Antibody Screen Crossmatch 09/18/24 09/17/24 09/17/24 Range/Units 06:08 20:32 16:18 WBC 2.58 L (4.8-10.8) K/ul RBC 2.57 L (4.20-5.40) M/uL Hgb 7.6 L (12.0-16.0) g/dl Hct 21.9 L (37.0-47.0) % MCV 85.2 (80.0-100.0) fL MCH 29.6 (25.0-34.0) pg MCHC 34.7 (32.0-36.0) g/dL RDW Std Deviation 49.1 H (36.4-46.3) fL RDW Coeff of Joshua 16.1 H (11.5-14.5) % Plt Count 182 (130-400) K/uL MPV 9.4 (9.4-12.4) fL Sodium (136-145) mmol/L Potassium (3.5-5.1) mmol/L Chloride (98-107) mmol/L Carbon Dioxide (21-32) mmol/L Anion Gap (3-11) BUN (6-23) mg/dl Creatinine (0.6-1.2) mg/dl Est Cr Clr Drug Dosing ml/min eGFR BUN/Creatinine Ratio (10-20) Glucose (70-99(Fasting)) mg/dl POC Glucose 116 H 125 H (70-99) mg/dl Calcium (8.6-10.3) mg/dl Ionized Calcium (1.12-1.32) mmol/L Phosphorus (2.5-4.9) mg/dl Magnesium (1.7-2.4) mg/dl Albumin (3.4-5.0) gm/dl 25-OH Vitamin D Total 7.9 L (30-100) ng/ml Folate (>5.38) ng/ml Blood Type Antibody Screen Crossmatch 09/17/24 09/17/24 09/17/24 Range/Units 11:36 07:42 05:29 WBC 3.03 L (4.8-10.8) K/ul RBC 2.70 L (4.20-5.40) M/uL Hgb 8.0 L (12.0-16.0) g/dl Hct 23.2 L (37.0-47.0) % MCV 85.9 (80.0-100.0) fL MCH 29.6 (25.0-34.0) pg MCHC 34.5 (32.0-36.0) g/dL RDW Std Deviation 51.5 H (36.4-46.3) fL RDW Coeff of Joshua 16.7 H (11.5-14.5) % Plt Count 153 (130-400) K/uL MPV 8.7 L (9.4-12.4) fL Sodium (136-145) mmol/L Potassium (3.5-5.1) mmol/L Chloride (98-107) mmol/L Carbon Dioxide (21-32) mmol/L Anion Gap (3-11) BUN (6-23) mg/dl Creatinine (0.6-1.2) mg/dl Est Cr Clr Drug Dosing ml/min eGFR BUN/Creatinine Ratio (10-20) Glucose (70-99(Fasting)) mg/dl POC Glucose 180 H 148 H (70-99) mg/dl Calcium (8.6-10.3) mg/dl Ionized Calcium (1.12-1.32) mmol/L Phosphorus (2.5-4.9) mg/dl Magnesium (1.7-2.4) mg/dl Albumin (3.4-5.0) gm/dl 25-OH Vitamin D Total (30-100) ng/ml Folate (>5.38) ng/ml Blood Type Antibody Screen Crossmatch 09/16/24 09/16/24 09/16/24 Range/Units 20:20 16:15 15:57 WBC (4.8-10.8) K/ul RBC (4.20-5.40) M/uL Hgb 7.5 L (12.0-16.0) g/dl Hct 21.3 L (37.0-47.0) % MCV (80.0-100.0) fL MCH (25.0-34.0) pg MCHC (32.0-36.0) g/dL RDW Std Deviation (36.4-46.3) fL RDW Coeff of Joshua (11.5-14.5) % Plt Count (130-400) K/uL MPV (9.4-12.4) fL Sodium (136-145) mmol/L Potassium (3.5-5.1) mmol/L Chloride (98-107) mmol/L Carbon Dioxide (21-32) mmol/L Anion Gap (3-11) BUN (6-23) mg/dl Creatinine (0.6-1.2) mg/dl Est Cr Clr Drug Dosing ml/min eGFR BUN/Creatinine Ratio (10-20) Glucose (70-99(Fasting)) mg/dl POC Glucose 142 H 87 (70-99) mg/dl Calcium (8.6-10.3) mg/dl Ionized Calcium (1.12-1.32) mmol/L Phosphorus (2.5-4.9) mg/dl Magnesium (1.7-2.4) mg/dl Albumin (3.4-5.0) gm/dl 25-OH Vitamin D Total (30-100) ng/ml Folate (>5.38) ng/ml Blood Type Antibody Screen Crossmatch 09/16/24 09/16/24 09/16/24 Range/Units 11:21 07:11 06:20 WBC 4.00 L (4.8-10.8) K/ul RBC 2.35 L (4.20-5.40) M/uL Hgb 7.1 L (12.0-16.0) g/dl Hct 20.1 L* (37.0-47.0) % MCV 85.5 (80.0-100.0) fL MCH 30.2 (25.0-34.0) pg MCHC 35.3 (32.0-36.0) g/dL RDW Std Deviation 50.4 H (36.4-46.3) fL RDW Coeff of Joshua 16.4 H (11.5-14.5) % Plt Count 164 (130-400) K/uL MPV 9.7 (9.4-12.4) fL Sodium (136-145) mmol/L Potassium (3.5-5.1) mmol/L Chloride (98-107) mmol/L Carbon Dioxide (21-32) mmol/L Anion Gap (3-11) BUN (6-23) mg/dl Creatinine (0.6-1.2) mg/dl Est Cr Clr Drug Dosing ml/min eGFR BUN/Creatinine Ratio (10-20) Glucose (70-99(Fasting)) mg/dl POC Glucose 183 H 181 H (70-99) mg/dl Calcium (8.6-10.3) mg/dl Ionized Calcium (1.12-1.32) mmol/L Phosphorus (2.5-4.9) mg/dl Magnesium (1.7-2.4) mg/dl Albumin (3.4-5.0) gm/dl 25-OH Vitamin D Total (30-100) ng/ml Folate (>5.38) ng/ml Blood Type Antibody Screen Crossmatch 09/15/24 09/15/24 09/15/24 Range/Units 20:21 20:13 15:38 WBC (4.8-10.8) K/ul RBC (4.20-5.40) M/uL Hgb 7.4 L (12.0-16.0) g/dl Hct 21.2 L (37.0-47.0) % MCV (80.0-100.0) fL MCH (25.0-34.0) pg MCHC (32.0-36.0) g/dL RDW Std Deviation (36.4-46.3) fL RDW Coeff of Joshua (11.5-14.5) % Plt Count (130-400) K/uL MPV (9.4-12.4) fL Sodium (136-145) mmol/L Potassium (3.5-5.1) mmol/L Chloride (98-107) mmol/L Carbon Dioxide (21-32) mmol/L Anion Gap (3-11) BUN (6-23) mg/dl Creatinine (0.6-1.2) mg/dl Est Cr Clr Drug Dosing ml/min eGFR BUN/Creatinine Ratio (10-20) Glucose (70-99(Fasting)) mg/dl POC Glucose 182 H 146 H (70-99) mg/dl Calcium (8.6-10.3) mg/dl Ionized Calcium (1.12-1.32) mmol/L Phosphorus (2.5-4.9) mg/dl Magnesium (1.7-2.4) mg/dl Albumin (3.4-5.0) gm/dl 25-OH Vitamin D Total (30-100) ng/ml Folate (>5.38) ng/ml Blood Type Antibody Screen Crossmatch 09/15/24 Range/Units 08:39 WBC (4.8-10.8) K/ul RBC (4.20-5.40) M/uL Hgb (12.0-16.0) g/dl Hct (37.0-47.0) % MCV (80.0-100.0) fL MCH (25.0-34.0) pg MCHC (32.0-36.0) g/dL RDW Std Deviation (36.4-46.3) fL RDW Coeff of Joshua (11.5-14.5) % Plt Count (130-400) K/uL MPV (9.4-12.4) fL Sodium (136-145) mmol/L Potassium (3.5-5.1) mmol/L Chloride (98-107) mmol/L Carbon Dioxide (21-32) mmol/L Anion Gap (3-11) BUN (6-23) mg/dl Creatinine (0.6-1.2) mg/dl Est Cr Clr Drug Dosing ml/min eGFR BUN/Creatinine Ratio (10-20) Glucose (70-99(Fasting)) mg/dl POC Glucose (70-99) mg/dl Calcium (8.6-10.3) mg/dl Ionized Calcium (1.12-1.32) mmol/L Phosphorus (2.5-4.9) mg/dl Magnesium (1.7-2.4) mg/dl Albumin (3.4-5.0) gm/dl 25-OH Vitamin D Total (30-100) ng/ml Folate (>5.38) ng/ml Blood Type O Negative Antibody Screen NEGATIVE Crossmatch See Detail Diagnostic Findings Femur CT 09/13/24 20:45 Exam(s): CT EXTREMITY LEFT LOWER Without Contrast EXAM: CT Left Lower Extremity Without Intravenous Contrast CLINICAL HISTORY: pain, fall, cancer. TECHNIQUE: Axial computed tomography images of the left lower extremity without intravenous contrast. CTDI is 24.91 mGy and DLP is 1300.17 mGy-cm. Automated exposure control was utilized for the study. A dose lowering technique was utilized adhering to the principles of ALARA. COMPARISON: No relevant prior studies available. FINDINGS: Bones/joints: Diffuse extensive osseous metastatic disease throughout the included skeletal structures with near complete resorption of the posterior column of the acetabulum and near complete resorption of the base of the left femoral neck. There is a nondisplaced fracture involving the lateral aspect of the left greater trochanter, best appreciated on coronal reformatted imaging. No dislocation. Soft tissues: Unremarkable. IMPRESSION: Extensive osseous metastatic disease. There is a nondisplaced fracture involving the lateral aspect of the left greater trochanter, best appreciated on coronal reformatted imaging. The remaining osseous structures are intact; however, there is near complete resorption at the base of the left femoral neck. The patient is considered high risk for pathologic fracture. Electronically signed by: Jeovany Ramirez MD 09/13/24 23:02 PM Hip X-Ray 09/14/24 00:00 FL hip LT 2-3V CLINICAL HISTORY: LEFT HIPfemoral nail COMPARISON STUDY: None pertinent FLUOROSCOPY TIME: 93.7 seconds FLUOROSCOPY IMAGES: 5 EXPOSURE DOSE: 21.91 mGy FINDINGS: Image guidance provided for femoral nail IMPRESSION: Refer to procedural report for evaluation based on real-time fluoroscopic observation. ACT 112: Negative or not required by law. Electronically signed by: Kyra Augustin M.D. 09/14/2024 3:47 PM Skeletal Survey 09/14/24 08:25 SKELETAL SURVEY CLINICAL HISTORY: Breast cancer. Metastatic bone disease. COMPARISON STUDY: Nuclear bone scan dated 08/14/2024. CT scan of the chest, abdomen, and pelvis dated 08/14/2024. CT scan of the left femur dated 09/13/2024. FINDINGS: 18 radiographs from a skeletal survey are presented as part of a skeletal survey. Again seen are findings of extensive/diffuse mixed lytic/blastic bony metastatic disease. This has not appreciably changed from the recent nuclear bone scan and staging CT scans. There are numerous chronic/healed bilateral rib fractures. There is also a subacute/healing pathologic fracture of the manubrium. A large and predominantly lytic lesion in the right humeral shaft may place the patient risk for additional pathologic fracture. Fracture through the greater trochanter of the left proximal femur is again noted. Extensive lytic disease in the left proximal femur may place the patient risk for additional pathologic fracture. No significant spinal compression fracture is identified by x-ray. A left subclavian central venous infusion port is in place. The patient is edentulous. Cholecystectomy clips are noted in the right upper quadrant. Mesh material and additional clips project over the pelvis. Foci of parenchymal scarring are noted in both lungs. No airspace consolidation or pleural effusion identified. There is no bowel obstruction. IMPRESSION: 1. Extensive mixed lytic/blastic bony metastatic disease is similar in appearance to recent prior studies. 2. Fracture is again seen through the greater trochanter of the left proximal femur. 3. There is a subacute/healing pathologic fracture of the manubrium. 4. Note that the degree of lytic metastatic disease place the patient risk for additional pathologic fractures. This appears greatest in the mid right humeral shaft and the left proximal femur. Electronically signed by: Brant Evans M.D. 09/14/2024 11:00 AM Femur X-Ray 09/14/24 16:15 INDICATION: Postoperative evaluation. Pain TECHNIQUE: 2 views of the left femur were obtained. COMPARISON: None FINDINGS: Interval placement of an intramedullary evita and interlocking screws in the left femur. No displaced acute osseous process is identified. Expected postsurgical changes of the soft tissues. Redemonstrated diffuse sclerotic and lytic metastatic disease. IMPRESSION: Interval placement of an intramedullary evita and interlocking screws in the left femur with expected postsurgical changes of the soft tissues. Electronically signed by Jack Jordan 09-14-2024 6:11 PM Forearm X-Ray 09/19/24 16:14 Study: Right forearm 2 views History: Pain Comparison: 04/17/2024 Findings: There is no acute fracture or dislocation. Alignment is anatomic. Joint spaces are well maintained. There is no joint effusion or significant soft tissue swelling. Moderate lucencies within the proximal radius and distal humerus are seen with endosteal scalloping, and with lesions extending into the outer borders of the cortex. A few isolated, discrete lucent lesions are also seen at the proximal olecranon process as well as the mid diaphysis of the ulna. Impression: No acute bony abnormality. Bony metastases. Electronically signed by Ruben Mckeon 09-19-2024 5:18 PM PG Care Time/CCT Total # of Minutes Spent Total Time Spent with Patient: Total time spent is greater than 50% in coordination of care (as documented) at patient's floor/unit and/or counseling patient: I spent 50 minutes overall addressing this case: 15 min in medical data review/discussion with referring provider(s) and/or preparation for the visit 15 min in direct interaction with the patient/exam 00 min in Advance Care Planning/Goals of Care discussions as detailed above in note (must be >16min) 5 min in subsequent review and synthesis of assessment and plan 15 min communicating with other providers regarding the patient's case: nursing, care mgt, primaryteam, oncolohy Coding [place] [address] SUB INP/OBS CARE 3/50MIN Patient Type Established History Comprehensive Exam Comprehensive Medical Decision Making High Complexity Diagnoses Cancer related pain G89.3 Therapeutic opioid-induced constipation (OIC) K59.03; T40.2X5A 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
--- NOTE | 2024-09-22 15:37 | Hospitalist Progress Note ---
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 #Hypercalcemia of Malignancy 10.4-11.3-10.8 today associated symptoms include constipation, anorexia; -Continue telemetry given their degree of hypercalcemia -Measure and document I/O every shift -Zoledronic acid 4 mg IV one-time was administered 09/20 -If p.o. intake does not improve, anticipate starting intermittent IVF for volume resuscitation -Follow daily RFP, serum magnesium #Left pathological greater trochanteric fracture i/s/o stage IV breast cancer Post operative day 7 from left trochanteric nail fixation; Palliative medicine primarily managing analgesic regimen, BILLET INSPECTOR discontinued 09/20 -Continue physical and occupational therapy - We have an accepting facility. claims manager working on it. Currently on Oxy IR 15 mg p.o. every 4 as needed mild to moderate pain and Oxy IR 30 mg p.o. every 4 moderate to severe pain. Dilaudid is only available for severe pain but patient has not used Dilaudid in some time. On a bowel regimen -Outpatient care provided by Dr Plascencia (active chemotherapy with Eribulin) and Dr Limon #Anemia of Chronic Disease with iatrogenic loss Required 2 units PRBC during hospitalization; recent trend 7.4, 7.5 #Type II Diabetes Mellitus with hyperglycemia - HbA1C 7.9% - Pharmacy assisting with adjustment of therapy #Therapeutic opioid dependence i/s/o cancer related pain consequential of osseous metastases Chronic condition; currently without significant abdominal discomfort or urinary retention; at this time continue current regimen Admission and Anticipated Discharge Date Admission Date: September 13, 2024 Subjective Patient says that her pain is fairly controlled. Denies chest pain or shortness of breath. Review of Systems Review of Systems: All systems reviewed & are unremarkable except as noted in Subjective Physical Exam Physical Exam: General: Awake, conversant. Chronically ill and frail appearing woman Heart: S1, S2/regular rate and rhythm, no murmur rubs or gallops Lungs: Clear to auscultation bilaterally. Normal effort Abdomen: Soft/nontender/nondistended. No hepatosplenomegaly Extremities: No clubbing/cyanosis. No edema Behavior: Appropriate, cooperative Results & Data Results & Data Vital Signs (Past 12 Hours) Vital Signs Temp Pulse Pulse Resp BP Pulse Ox O2 Del Method 09/22/24 15:10 36.6 C 88 16 91/59 L 94 Room Air 09/22/24 07:45 Room Air 09/22/24 07:33 37.1 C 84 16 96/57 L 95 Room Air PG Care Time/CCT Total # of Minutes Spent Total Time Spent with Patient: Total time spent is greater than 50% in coordination of care (as documented) at patient's floor/unit and/or counseling patient: Coding Level of Care Code 83313 SUB INP/OBS CARE 2/35MIN Diagnoses Hypercalcemia of malignancy E83.52 Pathological fracture of left hip due to neoplastic disease, initial encounter M84.552A Encounter type: initial encounter Laterality: left Closed nondisplaced fracture of greater trochanter of left femur, initial encounter S72.115A Encounter type: initial encounter Fracture alignment: nondisplaced Type 2 diabetes mellitus with hyperglycemia, with long-term current use of insulin E11.65; Z79.4 Diabetes mellitus penitentiary insulin use: with rodent exterminator use Cancer related pain G89.3 Carcinoma of breast metastatic to bone, unspecified laterality C50.919; C79.51 Laterality: unspecified laterality Therapeutic opioid-induced constipation (OIC) K59.03; T40.2X5A Opioid-induced insomnia F11.982 (2) 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 Encounter type: initial encounter Laterality: left Qualified Code(s): M84.552A - Pathological fracture in neoplastic disease, left femur, initial encounter for fracture (3) Closed fracture of greater trochanter of left femur Encounter type: initial encounter Fracture alignment: nondisplaced Qualified Code(s): S72.115A - Nondisplaced fracture of greater trochanter of left femur, initial encounter for closed fracture (4) Type 2 diabetes mellitus with hyperglycemia Diabetes mellitus penitentiary insulin use: with rodent exterminator use Qualified Code(s): E11.65 - Type 2 diabetes mellitus with hyperglycemia; Z79.4 - termite control service representative (current) use of insulin (6) Breast cancer metastasized to bone Laterality: unspecified laterality Qualified Code(s): C50.919 - Malignant neoplasm of unspecified site of unspecified female breast; C79.51 - Secondary malignant neoplasm of bone
[2024-09-22 19:35] VITALS: RESP 18
[2024-09-23 07:42] VITALS: BP 93/60; TEMP 98.2; O2SAT 98
[2024-09-23] MEDS: FOLIC ACID 1 MG TAB PO SCH (07:54)
--- NOTE | 2024-09-23 10:00 | Discharge Summary ---
Date of Service September 23, 2024 Admission HPI Per Admitting Provider Yamilka Vega is a 49 year old female metastatic breast cancer on chronic opiate therapy due to cancer related pain who presents to the ER with left hip pain after falling on August 09. Initial outpatient hip XRs were negative but still having severe pain and unable to weight bear. She was admitted from August 20 to 2024 mostly having shoulder and knee pain at that time with recent diagnosis of left subacute pathological fracture of proximal fibula, possible nondisplaced fracture of distal left clavicle and new diagnosis of acute fractures of anterior 3rd and 4th ribs. She reports not walking much and currently cannot weight-bear on it so. Her current pain is 7/10 when not moving but 10/10 on any movement or weightbearing. She lives with her children and niece who is her caregiver. Principal Diagnosis Left pathological greater trochanteric fracture related to stage IV cancer Hypercalcemia of malignancy Cancer related pain Discharge Exam General: Awake, conversant. Chronically ill and frail appearing woman Heart: S1, S2/regular rate and rhythm, no murmur rubs or gallops Lungs: Clear to auscultation bilaterally. Normal effort Abdomen: Soft/nontender/nondistended. No hepatosplenomegaly Extremities: No clubbing/cyanosis. No edema Behavior: Appropriate, cooperative Discharge Data Allergies Allergy/AdvReac Type Severity Reaction Status Date / Time No Known Allergies Allergy Verified 09/13/24 20:51 Consultations 09/13/24 23:37 ED Decision to Admit Stat 09/14/24 02:03 Consult Orthopedic Surgery Routine Consult Palliative Care Routine Consult Radiation Oncology Routine Procedures Performed Operation Date: 09/14/24 10:20 Actual Procedures p Left Troch Nail(Left) - Richard Faustin DO Ordered Studies Femur CT 09/13/24 20:45 Exam(s): CT EXTREMITY LEFT LOWER Without Contrast EXAM: CT Left Lower Extremity Without Intravenous Contrast CLINICAL HISTORY: pain, fall, cancer. TECHNIQUE: Axial computed tomography images of the left lower extremity without intravenous contrast. CTDI is 24.91 mGy and DLP is 1300.17 mGy-cm. Automated exposure control was utilized for the study. A dose lowering technique was utilized adhering to the principles of ALARA. COMPARISON: No relevant prior studies available. FINDINGS: Bones/joints: Diffuse extensive osseous metastatic disease throughout the included skeletal structures with near complete resorption of the posterior column of the acetabulum and near complete resorption of the base of the left femoral neck. There is a nondisplaced fracture involving the lateral aspect of the left greater trochanter, best appreciated on coronal reformatted imaging. No dislocation. Soft tissues: Unremarkable. IMPRESSION: Extensive osseous metastatic disease. There is a nondisplaced fracture involving the lateral aspect of the left greater trochanter, best appreciated on coronal reformatted imaging. The remaining osseous structures are intact; however, there is near complete resorption at the base of the left femoral neck. The patient is considered high risk for pathologic fracture. Electronically signed by: Jeovany Ramirez MD 09/13/24 23:02 PM Hip X-Ray 09/14/24 00:00 FL hip LT 2-3V CLINICAL HISTORY: LEFT HIPfemoral nail COMPARISON STUDY: None pertinent FLUOROSCOPY TIME: 93.7 seconds FLUOROSCOPY IMAGES: 5 EXPOSURE DOSE: 21.91 mGy FINDINGS: Image guidance provided for femoral nail IMPRESSION: Refer to procedural report for evaluation based on real-time fluoroscopic observation. ACT 112: Negative or not required by law. Electronically signed by: Kyra Augustin M.D. 09/14/2024 3:47 PM Skeletal Survey 09/14/24 08:25 SKELETAL SURVEY CLINICAL HISTORY: Breast cancer. Metastatic bone disease. COMPARISON STUDY: Nuclear bone scan dated 08/14/2024. CT scan of the chest, abdomen, and pelvis dated 08/14/2024. CT scan of the left femur dated 09/13/2024. FINDINGS: 18 radiographs from a skeletal survey are presented as part of a skeletal survey. Again seen are findings of extensive/diffuse mixed lytic/blastic bony metastatic disease. This has not appreciably changed from the recent nuclear bone scan and staging CT scans. There are numerous chronic/healed bilateral rib fractures. There is also a subacute/healing pathologic fracture of the manubrium. A large and predominantly lytic lesion in the right humeral shaft may place the patient risk for additional pathologic fracture. Fracture through the greater trochanter of the left proximal femur is again noted. Extensive lytic disease in the left proximal femur may place the patient risk for additional pathologic fracture. No significant spinal compression fracture is identified by x-ray. A left subclavian central venous infusion port is in place. The patient is edentulous. Cholecystectomy clips are noted in the right upper quadrant. Mesh material and additional clips project over the pelvis. Foci of parenchymal scarring are noted in both lungs. No airspace consolidation or pleural effusion identified. There is no bowel obstruction. IMPRESSION: 1. Extensive mixed lytic/blastic bony metastatic disease is similar in appearance to recent prior studies. 2. Fracture is again seen through the greater trochanter of the left proximal femur. 3. There is a subacute/healing pathologic fracture of the manubrium. 4. Note that the degree of lytic metastatic disease place the patient risk for additional pathologic fractures. This appears greatest in the mid right humeral shaft and the left proximal femur. Electronically signed by: Brant Evans M.D. 09/14/2024 11:00 AM Femur X-Ray 09/14/24 16:15 INDICATION: Postoperative evaluation. Pain TECHNIQUE: 2 views of the left femur were obtained. COMPARISON: None FINDINGS: Interval placement of an intramedullary evita and interlocking screws in the left femur. No displaced acute osseous process is identified. Expected postsurgical changes of the soft tissues. Redemonstrated diffuse sclerotic and lytic metastatic disease. IMPRESSION: Interval placement of an intramedullary evita and interlocking screws in the left femur with expected postsurgical changes of the soft tissues. Electronically signed by Jack Jordan 09-14-2024 6:11 PM Forearm X-Ray 09/19/24 16:14 Study: Right forearm 2 views History: Pain Comparison: 04/17/2024 Findings: There is no acute fracture or dislocation. Alignment is anatomic. Joint spaces are well maintained. There is no joint effusion or significant soft tissue swelling. Moderate lucencies within the proximal radius and distal humerus are seen with endosteal scalloping, and with lesions extending into the outer borders of the cortex. A few isolated, discrete lucent lesions are also seen at the proximal olecranon process as well as the mid diaphysis of the ulna. Impression: No acute bony abnormality. Bony metastases. Electronically signed by Ruben Mckeon 09-19-2024 5:18 PM 09/13/24 20:45 CT femur LT wo con Stat 09/14/24 FL hip LT 2-3V Routine Hospital Course (1) Hypercalcemia of malignancy: (2) 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: (3) Closed fracture of greater trochanter of left femur: (4) Type 2 diabetes mellitus with hyperglycemia: (5) Cancer related pain: (6) Breast cancer metastasized to bone: (7) Therapeutic opioid-induced constipation (OIC): (8) Opioid-induced insomnia: Plan In summary this is a 49-year-old female who is admitted for continued pain management and recovery after left trochanteric nail fixation after a occult fracture consequential of osseous metastases in the setting of stage IV breast cancer. #Hypercalcemia of Malignancy 10.4-11.3-10.8 associated symptoms include constipation, anorexia; -Zoledronic acid 4 mg IV one-time was administered 09/20 Follow calcium level outpatient #Left pathological greater trochanteric fracture i/s/o stage IV breast cancer Patient had left trochanteric nail fixation; Palliative medicine primarily managing analgesic regimen, [employer] discontinued 09/20 -Continue physical and occupational therapy Currently on Oxy IR 15 mg p.o. every 4 as needed mild to moderate pain and Oxy IR 30 mg p.o. every 4 moderate to severe pain. Pain is fairly controlled on this regimen On a bowel regimen -Outpatient care provided by Dr Plascencia (active chemotherapy with Eribulin) and Dr Limon #Anemia of Chronic Disease with iatrogenic loss Required 2 units PRBC during hospitalization #Type II Diabetes Mellitus with hyperglycemia - HbA1C 7.9% #Therapeutic opioid dependence i/s/o cancer related pain consequential of osseous metastases Chronic condition; currently without significant abdominal discomfort or urinary retention; at this time continue current regimen Total Time Total Time Spent Total Time Spent (In Minutes): 35 Discharge Plan Discharge Items Patient Disposition: Transfer Half-Way Fac Reason For Visit: CANCER RELATED PAIN, GREATER TROCHANTER FRACTURE Discharge Diagnosis: Left pathological greater trochanteric fracture related to stage IV cancer Hypercalcemia of malignancy Cancer related pain Condition on Discharge: Fair Activity: As commented below Activity Comment: Per PT/OT recommendations Non-emergency contact: Primary Care Provider Call non-emergency contact if: you have any medication questions and your symptoms worsen Follow-up/Referrals: Mary James PA-C [Primary Care Provider] - Richard Faustin DO [Physician] - Diet: Carb Consistent or DM2 Addtl Attending Provider Instructions: Advised to follow-up with PCP in 1 week Advised to follow-up with cancer doctor as per previous schedule Addtl Accreditation Manager Provider Instructions: General Orthopedic Discharge Instructions Activity: Weight bearing as tolerated Diet: You may resume previous diet. Medications: 1. Narcotic You will likely be sent home from the hospital with a prescription for the narcotic pain medication. Take it as needed. Side effects most commonly include nausea and constipation 2. Toradol You will likely be sent home with this anti-inflammatory. It is a post-surgical ibuprofen (NSAID). Take it for 5 days as prescribed. If you have any side effects, such as stomach upset (not nausea), then stop immediately 3. Resume previous home medications unless otherwise instructed Dressing Care: If there is a soft dressing in place then leave the dressing intact for 5 days. On the 5th you may remove the dressing and leave the stitches open to air or cover them with band-aids. Keep the incision clean and dry If there is a hard splint then leave it in place until your follow-up visit in 2 weeks Showering: If you have a soft dressing you may shower right after the surgery but do not get the dressing wet. After the dressing is removed on the 5th day then you can get the stitches wet in the shower, but do not soak or scrub them. Let the soapy shower water run over the stitches and pat them dry. If you have a hard splint, cover it in a plastic bag and keep it dry. Do not remove it until the follow up appointment. Things To Watch For: 1. Drainage from the incision site that occurs more than one week after your surgery. 2. Increased redness at the incision site. 3. Fever above 102 degrees Fahrenheit. 4. Unusual chest pain or shortness of breath. 5. Call [facility] at with any of the above problems. Follow-Up Visit: Follow-up with Dr. Faustin 2 weeks after your day of surgery. An appointment was probably scheduled when you signed-up for surgery in the office. If you have any questions call Pending Studies at Discharge: No Stand-Alone Forms: My [facility] Skilled Items Patient informed of condition?: Yes DNR: Yes Discharge Level of Care: Skilled Communicable Disease: No Discharge Prognosis: Stable Lines: None Urinary Catheter: No Medications and DC Order Prescriptions: New polyethylene glycol 3350 [Miralax] 17 gram Powder In Packet 17 g PO BID 30 Days Qty: 30 0RF oxycodone 15 mg tablet, oral only 15 mg PO Q4H PRN (Reason: pain (scale score 4-6)) Qty: 20 0RF oxycodone 30 mg tablet 30 mg PO Q4H PRN (Reason: pain (scale score 7-10)) Qty: 20 0RF Continued fentanyl 75 mcg/hr patch 72 hour 1 patch transdermal Q72H 30 Days Qty: 10 0RF Rx Instructions: 1 month supply, ten patches for severe cancer pain ondansetron 8 mg tablet,disintegrating 8 mg translingual BID PRN (Reason: Nausea And Vomiting) insulin aspart U-100 [Novolog FlexPen U-100 Insulin] 100 unit/mL (3 mL) insulin pen 0 sliding scale dose SUBCUT AC Rx Instructions: Sliding Scale tid with meals. metoclopramide HCl 10 mg tablet 10 mg PO .1-2X A DAY PRN (Reason: n/v) olanzapine [Zyprexa] 5 mg tablet 5 mg PO BID PRN (Reason: n/v) Changed insulin glargine [Lantus Solostar U-100 Insulin] 100 unit/mL (3 mL) insulin pen 7 unit SUBCUT BID Qty: 0 0RF Discontinued oxycodone 30 mg tablet 45 - 60 mg PO Q4H PRN (Reason: Severe Pain (Scale Score 7-10)) hydromorphone [Dilaudid] 8 mg tablet 8 mg PO TID PRN (Reason: very severe bone mets related cancer pain) Rx Instructions: intolerant to higher doses of TDF, progressive mets per pt she just uses as needed because it doesnt work as well for her Discharge Orders: Discharge Order (Routine); Ordered 09/23/24 Ordered By: Bridgette Verduzco Admission Data Admit Date/Time: 09/13/24 23:58 Attending Provider: Bridgette Verduzco Admit Provider: Kevyn Laura Primary Care Provider: Mary James Other Providers: Kevyn Laura; Leland Cardenas; Luna Lmion; Vaibhav Miguel; [facility] Other Interventions: Discharge Summary Assessment (RN) Last Done: 09/23/24 11:02
[2024-09-23 11:03] VITALS: PULSE 84
--- NOTE | 2024-10-09 14:46 | Operative Report ---
PG Post Operative Report Pre & Post Diagnosis Operation Date: 09/14/24 10:20 Pre-Op Diagnosis: Painful metastasis left femur with possible impending hip fracture Post-Op Diagnosis: Painful metastasis left femur with possible impending hip fracture I identified the patient and participated in the time-out.: Yes Procedure Operation Date: 09/14/24 10:20 Actual Procedures p intramedullary nail fixation of the left femur (Left) - Richard Faustin DO Surgeon Richard Faustin DO Inside Finisher Wade Hinton PA-C Estimated Blood Loss 100 Findings Consistent with Post-Op Diagnosis Specimens None Description of Procedure On September 14, 2024 Yamilka was brought down from her hospital room to the preoperative holding area. The operative extremity identified and signed. She is given a preoperative antibiotic. She was taken back to the operating room and put under general anesthesia. She was then transferred to a fracture table. The left leg was brought out to traction. The left hip was then prepped and draped in sterile fashion. A timeout was done. The patient and the operative extremity was properly identified. A longitudinal incision was made just superior to the greater trochanter. Dissection was taken down through the fascia. A guidepin was then placed in the tip of the greater trochanter. The guidepin was advanced. A 17 mm opening reamer was used to open the femoral canal. Appropriate placement of the guidepins were checked on fluoroscopy. A ball-tipped guidewire was then sent down the femoral canal. Sequential reaming was done. A Synthes TFN long nail was then impacted down the femoral shaft. A small incision was made in the lateral thigh and a cannula was advanced to the lateral cortex for the helical blade. A guidepin was then placed in the center center position of the femoral head. Appropriate placement was checked on fluoroscopy. The lateral cortex was then drilled. A helical blade was then impacted into place. The helical blade was then statically locked. The outrigger was then removed. Final fluoroscopic images showed good alignment of the hardware at the hip. Attention was then turned distally. A single distal locking screw was then placed distally using perfect [place] technique. Final fluoroscopic images showed good alignment of the hardware. Surgical sites were then irrigated. The deep fascia proximally was closed with #1 Vicryl. Skin was closed with 2-0 Vicryl and tere. She was placed in a soft dressing. She was then extubated and transferred back to a hospital bed. She was taken to the postanesthesia care unit in stable condition. She tolerated the procedure well. Wade Hinton PA-C, was present for the entire procedure. He was critical for patient positioning, prepping, draping, retraction exposure, wound closure and application of sterile dressing. I attest to the content of the Intraoperative Record and any orders documented therein. Any exceptions are noted below.
== END 2024-09-23 11:00 | DRG 481 ==
LOC: ED 20:17 → SUATTDRO 23:58 → 3E 23:58

== ENCOUNTER 2024-11-21 03:54 | Inpatient (IN) ==
[2024-11-21] MEDS: SODIUM CHLORIDE 0.9% 1,000 ML IV ONE (04:54)
[2024-11-21] MEDS: PROMETHAZINE 25 MG/51 ML BAG IV STA (04:54)
[2024-11-21] MEDS: HYDROmorphone INJ 1 MG/ML SYRINGE IV PRN ×3 (04:54→14:55)
[2024-11-21 05:05] LABS: Hematocrit (blood only) 23.6 % (37.0-47.0); Hemoglobin 8.1 g/dl (12.0-16.0); Immature Granulocytes # (auto) 0.08 K/uL (0.01-0.20); Immature Granulocytes % (auto) 1.6 %; Mean Corpuscular Hemoglobin 29.3 pg (25.0-34.0); Mean Corpuscular Volume 85.5 fL (80.0-100.0); Platelet Count 176 K/uL (130-400); RDW Standard Deviation 49.1 fL (36.4-46.3); Red Blood Count 2.76 M/uL (4.20-5.40); White Blood Count 5.04 K/ul (4.8-10.8)
[2024-11-21 05:30] LABS: INR 1.0 (0.9-1.1); Partial Thromboplastin Time 39 Seconds (21-31); Prothrombin Time 10.9 Seconds (9.0-12.0)
--- NOTE | 2024-11-21 06:21 | History & Physical Report ---
Date of Service November 21, 2024 Assessment & Plan (1) Intractable vomiting with nausea: (2) Cancer related pain: (3) Breast cancer metastasized to bone: Plan Patient is a 49-year-old female with past medical history of breast cancer with metastasis to bone currently just finished palliative radiation and retrialing chemo next Wednesday. She presented due to intractable vomiting and cancer related pain. #Intractable vomiting unknown etiology at time of admission given laboratories and diagnostic imaging pending. CMP pending AP CT ordered Patient with history of intractable vomiting with stage IV metastatic cancer, has been unable to tolerate home p.o. nausea medication Hold all p.o. medications with nausea Zofran as needed Protonix IV Received 1L NSS bolus in the ED; continue fluid resuscitation with LR at 80 mL/hour x 2L - full liquid diet, advance as tolerate to T2DM diet #left-sided chest painlikely secondary to cancer related pain however diagnostic imaging pending at time of admission. Nonhypoxic at time of admission. Troponin negative, EKG without ischemic changes. CTA pending Has been unable to tolerate home pain regimen with intractable vomiting above Tylenol IV as needed, Dilaudid 0.5/1 mg IV as needed for breakthrough pain Holding home p.o. medications Continue fentanyl patch #Stage IV breast cancer with metastasis to bonerecently completed palliative radiation with Dr. Miguel. Is going to trial chemotherapy and Decadron. Will transition to hospice at home. Follows with Dr. Jara in outpatient setting, consulted Transition dexamethasone p.o. to IV; patient has not taken in several days due to intractable vomiting - fall and aspiration precautions #Type II DMinsulin controlled. Most recent A1c 7.4%. Will reduce home glargine 7 units twice daily to 4 units twice daily Sliding scale #Anemiaof chronic disease with metastatic cancer above. Hgb 8.1 (Baseline). Patient denies any bleeding. VTE ppx: SCDs pending laboratories and diagnostic imaging Dispo: MedSurg Admission and Anticipated Discharge Date Admission Date: 11/21/24 History of Present Illness Chief Complaint: vomiting Primary Care Provider: Mary James PA-C Patient is a 49-year-old female with past medical history of breast cancer with metastasis to bone currently just finished palliative radiation and retrialing chemo next Wednesday. She presented due to intractable vomiting and cancer related pain. Patient seen at bedside. She stated she has been nauseous and vomiting for a couple days and has been unable to tolerate any p.o. intake or take her home medications. She denies any hematemesis. She was able to take her insulin, oxycodone, and a Zofran yesterday however has not had her dexamethasone in several days. She endorses left-sided rib pain that radiates around to her spine that gets worse with any movements or inspiration. She stated she has broken several ribs before due to her cancer and this feels similar however slightly worse. She has not been able to sleep due to the pain as she has been unable to tolerate her home oxycodone. She denies any shortness of breath or abdominal pain. She wishes to maintain her DNR/DNI status. Palliative medicine notes reviewed and appears that patient is going to trial chemo, dexamethasone, and radiation therapy. If she is unable to tolerate chemotherapy she will transition to hospice at home. Patient stated she just finished radiation therapy and she is to start chemotherapy on Wednesday. Allergies Allergy/AdvReac Type Severity Reaction Status Date / Time No Known Allergies Allergy Verified 11/21/24 08:19 Home Medications Medication Instructions Recorded Confirmed Type insulin aspart U-100 100 unit/mL 0 sliding scale dose subcut AC 06/25/23 11/21/24 History (3 mL) subcutaneous pen (Novolog FlexPen U-100 Insulin aspart) ondansetron 8 mg disintegrating 8 mg translingual BID PRN Nausea 06/25/23 11/21/24 History tablet And Vomiting metoclopramide HCl 10 mg tablet 10 mg PO BID PRN Nausea And 08/20/24 11/21/24 History Vomiting olanzapine 5 mg tablet (Zyprexa) 5 mg PO BID PRN n/v 08/20/24 11/21/24 History insulin glargine 100 unit/mL (3 7 unit (0.07 mL) subcut BID #0 mL 09/23/24 11/21/24 Rx mL) subcutaneous pen (Lantus Solostar U-100 Insulin) oxycodone 15 mg tablet,oral ONLY 15 mg PO Q4H PRN pain (scale score 09/23/24 11/21/24 Rx (not feeding tubes) 4-6) #20 ea oxycodone 30 mg tablet 30 mg PO Q4H PRN pain (scale score 09/23/24 11/21/24 Rx 7-10) #20 tabs dexamethasone 4 mg tablet 8 mg (2 x 4 mg) PO BID severe bony 11/09/24 11/21/24 Rx mets pain from cancer 1 month #120 tabs fentanyl 100 mcg/hr transdermal 1 patch transdermal Q72H very 11/09/24 11/21/24 Rx patch severe cancer pain 1 month #10 ea lorazepam 1 mg tablet (Ativan) 1 mg PO Q8H PRN anxiety, nausea, 11/09/24 11/21/24 Rx insomnia, spasms 1 month #90 tabs olanzapine 2.5 mg tablet 2.5 mg PO DIRECTED 11/21/24 11/21/24 History prochlorperazine maleate 10 mg 10 mg PO Q6H PRN Nausea And 11/21/24 11/21/24 History tablet Vomiting Past Med/Surg History Problem List (Updated 11/21/24 @ 22:18 by Leland Sanford PA-C) Intractable vomiting with nausea (Acute) Myoclonus Anxiety associated with cancer diagnosis Insomnia Advanced care planning/counseling discussion (Chronic) Advanced care planning/counseling discussion (Acute) Status post surgery Encounter for monitoring cardiotoxic drug therapy Hypercalcemia of malignancy (Acute) 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 (Acute) Closed fracture of greater trochanter of left femur (Acute) Type 2 diabetes mellitus with hyperglycemia Breast cancer metastasized to bone (Chronic) Cancer related pain (Chronic) Opioid-induced insomnia Therapeutic opioid-induced constipation (OIC) (Chronic) Chemotherapy-induced peripheral neuropathy (Chronic) Refractory nausea and vomiting (Acute) Closed rib fracture (Chronic) Uncontrolled pain (Chronic) Leg weakness, bilateral (Chronic) Palliative care by specialist (Acute) Breast cancer metastasized to multiple sites (Chronic) Depression Obesity Hypothyroidism (Chronic) Medical History DM type 2 (diabetes mellitus, type 2) Breast cancer metastasized to bone History of COVID-19 12/2020 + 12/2021 > residual taste dysfunction and feeling of need to clear throat Bilateral breast cancer Arthritis Liver spots "Mets from cancer" Depression with anxiety Peripheral neuropathy Heart palpitations R/t anxiety per patient History of small bowel obstruction Hx bowel obstruction Hypothyroidism No current meds Surgical History History of tubal ligation Port-A-Cath in place (04/30/22) Insertion Access Port left subclavian with Fluoroscopy(Left) - Chad Banuelos DO History of surgery Left Excisional Debridement of Buttock Wound Nausea and vomiting after administration of anesthetic agent "EXTREME" History of vascular access device PORT INSERTION/REMOVAL History of tooth extraction History of endometrial ablation History of bowel resection D/T BOWEL OBSTRUCTION History of lung surgery Left thoracoscopy with wedge resection left lower lobe Dr. Damico 03/29/2018 History of dilatation and curettage H/O hernia repair Hx of section x3 S/P lumpectomy, left breast LEFT ARM LIMB RESTRICTION Family History Mother , 77yo Diabetes Heart disease Aortic valve replacement Mitral valve calcifications UTI (urinary tract infection) Father , 62yo Diabetes Myocardial infarction Hypertension Stroke Brother Diabetes Myocardial infarction Cardiac stents Pacemaker Hypertension Sister No problems noted. Daughter No problems noted. Son No problems noted. Son No problems noted. 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 Non-toxic appearing. HEENT- EOMI, mucous membranes moist. Hearing grossly intact. Heart-normal S1 and S2. No murmurs, rubs or gallops. Lungs-decreased bilaterally, no respiratory distress, no accessory muscle use. Abdomen-normal bowel sounds and soft. No ascites noted. Non-tender. Extremities- no clubbing, cyanosis, or edema. Results & Data Results & Data Vital Signs (Past 12 Hours) Vital Signs Temp Pulse Pulse Resp BP BP Pulse Ox 11/21/24 06:00 83 16 107/64 96 11/21/24 05:01 100 11/21/24 05:00 83 18 150/80 H 98 11/21/24 04:30 89 18 147/84 H 100 11/21/24 04:30 89 18 147/84 H 100 11/21/24 04:16 96 H 11/21/24 04:00 36.5 C 88 18 124/81 100 O2 Del Method O2 Flow Rate 11/21/24 06:00 Nasal Cannula 10 11/21/24 05:01 Room Air 11/21/24 05:00 11/21/24 04:30 11/21/24 04:30 Room Air 11/21/24 04:16 11/21/24 04:00 Room Air Laboratory Results reviewed CBC CMP pending Diagnostic Findings AP CT, CTA pending Medications Administered ED - Phenergan 25mg IV, 1l NSS bolus, Dilaudid 1mg IV ECG Additional Comments: NSR, rate 82 qtc 408 Code Status & VTE Plan Code Status dnr/dni Supervising Physician Co-Signing Physician Notes Attending addendum: I have physically seen this patient, have supervised the MARIO's activities, and agree with the H&P unless as otherwise noted. Assessment and Plan: The patient is a 49-year-old female with past medical history including metastatic breast cancer to bone and other sites, just finished palliative radiation and retrial of chemo to begin next Wednesday. She presented to the emergency department due to intractable nausea, vomiting and worsening cancer pain. She is referred to the [facility] for further evaluation and treatment. Intractable nausea and vomiting- Patient was seen acutely in the emergency department before ED workup was co mpleted, with pending imaging studies and laboratories at this time Will need follow-up CTA chest and CT abdomen and pelvis with daytime service And a follow-up of outstanding laboratories with daytime service Zofran 4 mg IV every 6 hours as needed Pantoprazole 40 mg IV daily Status post 1 L normal saline bolus in the ED LR at 80 mL/h x 2 L Full liquid diet and advance as tolerated pending results of outstanding CT Left-sided chest pain- Differential including but not limited to: Secondary to cancer, PE, cardiac less likely with normal troponin and normal EKG Acetaminophen 1 g IV every 8 hours as needed for mild pain or fever Dilaudid 0.5 mg IV every 3 hours needed for moderate pain Dilaudid 1 mg IV every 3 hours as needed for severe pain Continue home fentanyl patch Home oral narcotics have been held due to inability to tolerate oral intake Stage IV breast cancer with metastases to multiple sites including bone- Completed palliative radiation with Dr. Miguel To undergo a trial of chemotherapy and Decadron If not successful will transition to hospice at home Change dexamethasone from oral to IV Fall and aspiration precautions Consult palliative care, last seen on 11/09/2024 Diabetes mellitus type 2- Most recent A1c 7.4 Change glargine from 7 to 4 units subcu twice daily Placed on Accu-Cheks with NovoLog SSI PG Care Time/CCT Total # of Minutes Spent Total Time Spent with Patient: Total time spent is greater than 50% in coordination of care (as documented) at patient's floor/unit and/or counseling patient: Coding Level of Care Code 36846 INT INP/OBS CARE 375MIN Diagnoses Intractable vomiting with nausea R11.2 Cancer related pain G89.3 Carcinoma of breast metastatic to bone, unspecified laterality C50.919; C79.51 Laterality: unspecified laterality (3) Breast cancer metastasized to bone Laterality: unspecified laterality Qualified Code(s): C50.919 - Malignant neoplasm of unspecified site of unspecified female breast; C79.51 - Secondary malignant neoplasm of bone
--- NOTE | 2024-11-21 06:24 | Emergency Department Note ---
History of Present Illness General Chief complaint: Vomiting Stated complaint: vomit, rib PIN Time Seen by Provider: 11/21/24 04:16 History of Present Illness Maximum Pain Intensity: 6 This is a 49-year-old female presenting to the emergency department for evaluation of nausea, vomiting, and left-sided chest wall pain. Patient has an unfortunate history of metastatic breast cancer. She has palliative services available, and is typically fairly well treated at home with fentanyl patches and Oxy IR. Because of her vomiting she has not been able to take her at home medications. No relief with Zofran at home. She feels very weak secondary to her symptoms. Patient also reports having rib fractures because of her symptoms, and states this has happened several times previously. Her chest wall pain feels identical to those episodes. Patient has not had a fever and rates her current discomfort a 6/10. Home Medications Medication Instructions Recorded Confirmed Type insulin aspart U-100 100 unit/mL 0 sliding scale dose subcut AC 06/25/23 11/21/24 History (3 mL) subcutaneous pen (Novolog FlexPen U-100 Insulin aspart) ondansetron 8 mg disintegrating 8 mg translingual BID PRN Nausea 06/25/23 11/21/24 History tablet And Vomiting metoclopramide HCl 10 mg tablet 10 mg PO BID PRN Nausea And 08/20/24 11/21/24 History Vomiting olanzapine 5 mg tablet (Zyprexa) 5 mg PO BID PRN n/v 08/20/24 11/21/24 History insulin glargine 100 unit/mL (3 7 unit (0.07 mL) subcut BID #0 mL 09/23/24 11/21/24 Rx mL) subcutaneous pen (Lantus Solostar U-100 Insulin) oxycodone 15 mg tablet,oral ONLY 15 mg PO Q4H PRN pain (scale score 09/23/24 11/21/24 Rx (not feeding tubes) 4-6) #20 ea oxycodone 30 mg tablet 30 mg PO Q4H PRN pain (scale score 09/23/24 11/21/24 Rx 7-10) #20 tabs dexamethasone 4 mg tablet 8 mg (2 x 4 mg) PO BID severe bony 11/09/24 11/21/24 Rx mets pain from cancer 1 month #120 tabs fentanyl 100 mcg/hr transdermal 1 patch transdermal Q72H very 11/09/24 11/21/24 Rx patch severe cancer pain 1 month #10 ea lorazepam 1 mg tablet (Ativan) 1 mg PO Q8H PRN anxiety, nausea, 11/09/24 11/21/24 Rx insomnia, spasms 1 month #90 tabs olanzapine 2.5 mg tablet 2.5 mg PO DIRECTED 11/21/24 11/21/24 History prochlorperazine maleate 10 mg 10 mg PO Q6H PRN Nausea And 11/21/24 11/21/24 History tablet Vomiting Allergies Allergy/AdvReac Type Severity Reaction Status Date / Time No Known Allergies Allergy Verified 11/21/24 08:19 Past Med/Surg History Problem List (Updated 11/21/24 @ 22:18 by Leland Sanford PA-C) Intractable vomiting with nausea (Acute) Myoclonus Anxiety associated with cancer diagnosis Insomnia Advanced care planning/counseling discussion (Chronic) Advanced care planning/counseling discussion (Acute) Status post surgery Encounter for monitoring cardiotoxic drug therapy Hypercalcemia of malignancy (Acute) 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 (Acute) Closed fracture of greater trochanter of left femur (Acute) Type 2 diabetes mellitus with hyperglycemia Breast cancer metastasized to bone (Chronic) Cancer related pain (Chronic) Opioid-induced insomnia Therapeutic opioid-induced constipation (OIC) (Chronic) Chemotherapy-induced peripheral neuropathy (Chronic) Refractory nausea and vomiting (Acute) Closed rib fracture (Chronic) Uncontrolled pain (Chronic) Leg weakness, bilateral (Chronic) Palliative care by specialist (Acute) Breast cancer metastasized to multiple sites (Chronic) Depression Obesity Hypothyroidism (Chronic) Medical History DM type 2 (diabetes mellitus, type 2) Breast cancer metastasized to bone History of COVID-19 12/2020 + 12/2021 > residual taste dysfunction and feeling of need to clear throat Bilateral breast cancer Arthritis Liver spots "Mets from cancer" Depression with anxiety Peripheral neuropathy Heart palpitations R/t anxiety per patient History of small bowel obstruction Hx bowel obstruction Hypothyroidism No current meds Surgical History History of tubal ligation Port-A-Cath in place (04/30/22) Insertion Access Port left subclavian with Fluoroscopy(Left) - Chad Banuelos DO History of surgery Left Excisional Debridement of Buttock Wound Nausea and vomiting after administration of anesthetic agent "EXTREME" History of vascular access device PORT INSERTION/REMOVAL History of tooth extraction History of endometrial ablation History of bowel resection D/T BOWEL OBSTRUCTION History of lung surgery Left thoracoscopy with wedge resection left lower lobe Dr. Damico 03/29/2018 History of dilatation and curettage H/O hernia repair Hx of section x3 S/P lumpectomy, left breast LEFT ARM LIMB RESTRICTION Family History Mother , 77yo Diabetes Heart disease Aortic valve replacement Mitral valve calcifications UTI (urinary tract infection) Father , 62yo Diabetes Myocardial infarction Hypertension Stroke Brother Diabetes Myocardial infarction Cardiac stents Pacemaker Hypertension Sister No problems noted. Daughter No problems noted. Son No problems noted. Son No problems noted. 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 How many Children do You have: 3 Feels Safe at Home: Yes Diet: regular caffeine: No during the past year weight has: remained stable Assistive Devices: Walker Review of Systems A total of 10 systems reviewed and were otherwise negative Physical Exam Vital Signs Vital Signs - 24 hr 11/21/24 04:00 11/21/24 04:16 11/21/24 04:30 Temperature 36.5 C Temperature Source Temporal Artery Scan Pulse Rate 88 96 H 89 Pulse Rate [Right Finger] Respiratory Rate 18 18 Respiratory Effort / Characteristics Non-Labored Spontaneous Respiratory Depth Normal Respiratory Pattern Regular Blood Pressure 124/81 147/84 H Blood Pressure [Right Arm] Blood Pressure Mean 95 105 Blood Pressure Mean [Right Arm] Blood Pressure Position Sitting Pulse Oximetry 100 100 Oxygen Delivery Method Room Air Room Air Oxygen Flow Rate Sepsis Recent Fever Within 48 Hours No Sepsis New/Unexplained Change in Mental Status N/A Sepsis Action Taken by Nursing No Action Required 11/21/24 04:30 11/21/24 05:00 11/21/24 05:01 Temperature Temperature Source Pulse Rate 89 83 Pulse Rate [Right Finger] Respiratory Rate 18 18 Respiratory Effort / Characteristics Respiratory Depth Respiratory Pattern Blood Pressure 147/84 H 150/80 H Blood Pressure [Right Arm] Blood Pressure Mean 119 103 Blood Pressure Mean [Right Arm] Blood Pressure Position Pulse Oximetry 100 98 100 Oxygen Delivery Method Room Air Oxygen Flow Rate Sepsis Recent Fever Within 48 Hours Sepsis New/Unexplained Change in Mental Status Sepsis Action Taken by Nursing 11/21/24 06:00 11/21/24 06:00 11/21/24 06:30 Temperature Temperature Source Pulse Rate 84 82 Pulse Rate [Right Finger] 83 Respiratory Rate 16 16 18 Respiratory Effort / Characteristics Non-Labored Respiratory Depth Normal Respiratory Pattern Blood Pressure 133/84 108/62 Blood Pressure [Right Arm] 107/64 Blood Pressure Mean 110 77 Blood Pressure Mean [Right Arm] 78 Blood Pressure Position Pulse Oximetry 96 96 98 Oxygen Delivery Method Nasal Cannula Oxygen Flow Rate 10 Sepsis Recent Fever Within 48 Hours Sepsis New/Unexplained Change in Mental Status Sepsis Action Taken by Nursing VITALS: Vitals are noted on the nurse's note and reviewed by myself. Vital signs stable. GENERAL: White female who appears much older than her stated age. She is pleasant and otherwise cooperative. HEAD: Normocephalic atraumatic. NECK: Supple without nuchal rigidity. No lymphadenopathy. No thyromegaly. Cervical spine is nontender. HEART: Regular rate and rhythm without murmurs gallops or rubs. LUNGS: Clear to auscultation bilaterally without wheezes, rales or rhonchi. No retractions or accessory muscle use. ABDOMEN: Positive normal bowel sounds x 4. Soft, nontender, without masses or organomegaly. No guarding or rebound tenderness. MUSCULOSKELETAL: No muscle atrophy, erythema, or edema noted. NEURO: Patient was alert and oriented to person place and time. GCS 15. Course Administered Medications Apixaban (Apixaban 5 Mg Tablet) 10 mg PO BID JESSE Stop: 11/27/24 21:01 Last Admin: 11/21/24 20:34 Dose: 10 mg Documented By: MARIA A Admin: 11/21/24 11:08 Dose: 10 mg Documented By: WHITNEY Hydromorphone HCl (Hydromorphone Inj 1 Mg/Ml Syringe) 1 mg IV Q4H PRN PRN Reason: Severe Pain (Scale 7, 8, 9,10) Stop: 12/05/24 09:13 Last Admin: 11/21/24 19:43 Dose: 1 mg Documented By: MARIA A Admin: 11/21/24 14:55 Dose: 1 mg Documented By: WALKER Lactated Ringer's (Lr) 1,000 mls @ 80 mls/hr IV .[id number] [facility] Stop: 11/22/24 07:44 Last Admin: 11/21/24 19:40 Dose: 80 mls/hr Documented By: MARIA A Infusion: 11/21/24 19:40 Dose: Infused Documented By: MARIA A Admin: 11/21/24 07:12 Dose: 80 mls/hr Documented By: WHITNEY Pantoprazole Sodium (Protonix) 40 mg in 10 mls @ 5 mls/min IV BID [facility] Stop: 12/21/24 20:59 Last Admin: 11/21/24 20:34 Dose: 5 mls/min Documented By: MARIA A Insulin Aspart (Insulin Aspart Per Unit Charge) 0 units SC ACHS [facility] Stop: 12/21/24 09:13 Last Admin: 11/21/24 20:32 Dose: 3 units Documented By: MARIA A Co-signed By: JOSE GUADALUPE Admin: 11/21/24 17:48 Dose: 4 units Documented By: WALKER Co-signed By: ELDA Admin: 11/21/24 12:22 Dose: Not Given Documented By: Admin: 11/21/24 11:00 Dose: Not Given Documented By: WHITNEY Insulin Glargine (Lantus Per Unit Charge) 4 units SC BID [facility] Stop: 12/21/24 20:59 Last Admin: 11/21/24 20:32 Dose: 4 units Documented By: MARIA A Co-signed By: JOSE GUADALUPE Methadone HCl (Methadone Hcl 5 Mg Tab) 5 mg PO Q6H PRN PRN Reason: cancer related pain/dyspnea Stop: 12/05/24 10:59 Last Admin: 11/21/24 12:27 Dose: 5 mg Documented By: WALKER Discontinued Medications Fentanyl (Fentanyl 100 Mcg/Hr Tdsy) 1 patch TD Q72H [facility] Stop: 12/05/24 09:59 Last Admin: 11/21/24 10:32 Dose: Not Given Documented By: CAP Hydromorphone HCl (Hydromorphone Inj 1 Mg/Ml Syringe) 1 mg IV Q30M PRN PRN Reason: Pain Stop: 12/05/24 04:36 Last Admin: 11/21/24 04:54 Dose: 1 mg Documented By: SIXTO Hydromorphone HCl (Hydromorphone Inj 1 Mg/Ml Syringe) 1 mg IV Q3H PRN PRN Reason: Severe Pain (Scale 7, 8, 9,10) Stop: 12/05/24 09:13 Last Admin: 11/21/24 09:36 Dose: 1 mg Documented By: WHITNEY Sodium Chloride (Nss) 1,000 mls @ 999 mls/hr IV .Q1H1M ONE Stop: 11/21/24 05:37 Last Infusion: 11/21/24 06:00 Dose: Infused Documented By: Admin: 11/21/24 04:54 Dose: 999 mls/hr Documented By: SIXTO Promethazine HCl (Phenergan) 25 mg in 51 mls @ 204 mls/hr IV NOW STA Stop: 11/21/24 04:51 Last Infusion: 11/21/24 05:14 Dose: Infused Documented By: Admin: 11/21/24 04:54 Dose: 204 mls/hr Documented By: SIXTO Palonosetron 0.25 mg/ Syringe 5 mls @ 10 mls/min IV NOW ONE Stop: 11/21/24 08:31 Last Admin: 11/21/24 09:10 Dose: 10 mls/min Documented By: WHITNEY Pantoprazole Sodium (Protonix) 40 mg in 10 mls @ 5 mls/min IV NOW STA Stop: 11/21/24 09:23 Last Admin: 11/21/24 10:33 Dose: 5 mls/min Documented By: WHITNEY Zoledronic Acid 4 mg/ Sodium (Chloride) 105 mls @ 410 mls/hr IV ONE ONE; Protocol Stop: 11/21/24 14:26 Last Infusion: 11/21/24 15:05 Dose: Infused Documented By: Admin: 11/21/24 14:39 Dose: 410 mls/hr Documented By: WALKER Ioversol (Optiray 320 125ml) 112 ml IV ONCE ONE Stop: 11/21/24 06:46 Last Admin: 11/21/24 06:45 Dose: 112 ml Documented By: NAOMI March (Fentanyl Patch Remove & Waste) 1 each N/A Q3D JESSE Stop: 12/21/24 09:13 Last Admin: 11/21/24 10:21 Dose: 1 each Documented By: WHITNEY Co-signed By: AVIVA March (Check Fentanyl Patch Placement) 1 each N/A QS JESSE Stop: 12/21/24 09:13 Last Admin: 11/21/24 10:20 Dose: 1 each Documented By: WHITNEY Medical Decision Making Differential Diagnosis Differential diagnosis: Etiologies such as cancer related pain, cardiac event, gastroenteritis, food borne illness, infections, appendicitis, diverticulitis, inflammatory bowel disease, obstruction, GI bleed, biliary pathology, cardiac process, intracranial process, as well as others were entertained. Laboratory Data 11/21/24 04:48 11/21/24 04:48 Lab Results 11/21/24 Range/Units 04:48 WBC 5.04 (4.8-10.8) K/ul RBC 2.76 L (4.20-5.40) M/uL Hgb 8.1 L (12.0-16.0) g/dl Hct 23.6 L (37.0-47.0) % MCV 85.5 (80.0-100.0) fL MCH 29.3 (25.0-34.0) pg MCHC 34.3 (32.0-36.0) g/dL RDW Std Deviation 49.1 H (36.4-46.3) fL RDW Coeff of Joshua 16.0 H (11.5-14.5) % Plt Count 176 (130-400) K/uL MPV 8.6 L (9.4-12.4) fL Immature Gran % (Auto) 1.6 % Neut % (Auto) 63.5 % Lymph % (Auto) 26.4 % Norton % (Auto) 7.3 % Eos % (Auto) 0.8 % Baso % (Auto) 0.4 % Neut # (Auto) 3.20 (1.40-6.50) K/uL Lymph # (Auto) 1.33 (1.20-3.40) K/uL Norton # (Auto) 0.37 (0.11-0.59) K/uL Eos # (Auto) 0.04 (0.00-0.50) K/uL Baso # (Auto) 0.02 (0.00-0.20) K/uL Immature Gran # (Auto) 0.08 (0.01-0.20) K/uL PT 10.9 (9.0-12.0) Seconds INR 1.0 (0.9-1.1) APTT 39 H (21-31) Seconds PTT Ratio 1.4 Sodium 134 L (136-145) mmol/L Potassium 4.0 (3.5-5.1) mmol/L Chloride 97 L (98-107) mmol/L Carbon Dioxide 25 (21-32) mmol/L Anion Gap 12 H (3-11) BUN 30 H (6-23) mg/dl Creatinine 1.13 (0.6-1.2) mg/dl Est Cr Clr Drug Dosing 70.1 ml/min eGFR 60.39 BUN/Creatinine Ratio 26.5 H (10-20) Glucose 137 H (70-99(Fasting)) mg/dl Calcium 12.1 H* (8.6-10.3) mg/dl Magnesium 1.9 (1.7-2.4) mg/dl Total Bilirubin 1.3 H (0.2-1.0) mg/dl AST 25 (13-39) U/L ALT 10 (7-52) U/L Alkaline Phosphatase 160 H (34-104) U/L Troponin I High Sens 4.4 (0-14) pg/ml Total Protein 7.6 (6.0-8.3) gm/dl Albumin 3.7 (3.4-5.0) gm/dl Globulin 3.9 (2.5-4.0) gm/dl Albumin/Globulin Ratio 0.9 (0.9-2) Lipase 7 L (11-82) U/L MDM Narrative Physical exam and history were performed. Nursing notes, EMR, and Medication List were personally reviewed. No social concerns were identified as barriers to patients care. History was provided by the Patient and female auto service dispatcher at bedside. Patient appears to have several complaints bringing her to the ER. She is having persistent nausea and vomiting symptoms, and because of this is not able to take her typical home medications. She has metastatic breast cancer. IV access was established and labs were obtained. She historically has done well with IV Dilaudid and IV Phenergan, both of which were provided here in the ER. Because of her symptoms CT scan of the chest, abdomen, and pelvis were ordered. An order was placed for continuous cardiac monitoring. The monitor shows a rate of 84 with normal sinus rhythm. Patient's blood work is as above and was reviewed. She does not have a significant elevated white blood cell count. She is mildly anemic however this appears chronic. Creatinine is 1.13 and glucose 137. Transaminases are not diagnostic. Troponin is negative. Calcium is markedly elevated over 12, likely from her known bony metastasis. Due to the patient's symptoms she was sent to CT scan for imaging of her abdomen and pelvis, as well as her chest. Escalation of care was considered, and felt to be necessary. With her cancer pain, vomiting, and calcium elevation she will require further inpatient care. CT scans are pending at the time of this dictation. Case was discussed with the on-call hospitalist team, who will evaluate the patient here in the ER. Please see their dictation for further patient course, plan, disposition. The chart was completed utilizing [employer] Speech Voice Recognition Software. Grammatical errors, random word insertions, pronoun errors, and incomplete sentences are an occasional consequence of this system due to software limitations, ambient noise, and hardware issues. Any formal questions or concerns about the content, text, or information contained within the body of this dictation should be directly addressed to the provider for clarification. Impression & Plan Intractable vomiting with nausea, Breast cancer metastasized to multiple sites, Uncontrolled pain, Hypercalcemia of malignancy Discharge Plan Visit Data Chief Complaint: Vomiting Stated Complaint: vomit, rib PIN ED Provider: Elena Peterson ED Midlevel Provider: Leland Sanford Discharge Problem: Intractable vomiting with nausea, Breast cancer metastasized to multiple sites, Uncontrolled pain, Hypercalcemia of malignancy Patient Disposition: Admitted As Inpatient Condition: Fair Discharge Instructions Interventions: ED Discharge Assessment Last Done: 11/21/24 12:23
[2024-11-21 06:37] LABS: Alanine Aminotransferase 10.0 U/L (7-52); Albumin Globulin Ratio 0.9 (0.9-2); Albumin Level 3.7 gm/dl (3.4-5.0); Alkaline Phosphatase 160.0 U/L (34-104); Anion Gap 12.0 (3-11); Bilirubin,Total 1.3 mg/dl (0.2-1.0); Blood Urea Nitrogen 30.0 mg/dl (6-23); Calcium 12.1 mg/dl (8.6-10.3); Carbon Dioxide 25.0 mmol/L (21-32); Chloride 97.0 mmol/L (98-107); Creatinine Clr Calc Pharmacy 70.1 ml/min; Globulin 3.9 gm/dl (2.5-4.0); Glucose 137.0 mg/dl (70-99(Fasting)); Lipase 7.0 U/L (11-82); Magnesium 1.9 mg/dl (1.7-2.4); Potassium 4.0 mmol/L (3.5-5.1); Sodium 134.0 mmol/L (136-145); Total Protein 7.6 gm/dl (6.0-8.3)
[2024-11-21] MEDS: OPTIRAY 320 125ml IV ONE (06:45)
[2024-11-21] MEDS: LACTATED RINGER'S 1,000 ML IV SCH (07:12)
--- NOTE | 2024-11-21 07:42 | CT Scan Report ---
EXAM: CT angio chest PE protocol CLINICAL HISTORY: Cancer. Left side CP. ?Fx ribs vs other TECHNIQUE: Contiguous axial images were obtained from the neck base through the upper abdomen following intravenous administration of iodinated contrast material. Angiographic images were processed, 3D MIP images were acquired for interpretation. If IV contrast material had not been administered, the likelihood of detecting abnormalities relevant to the patient's condition would have been substantially decreased. Coronal and sagittal 3-D MIPs were likewise performed and indicated to increase the sensitivity of detectin diffuse clinically relevant pathology. CT scan was performed according to ALARA (as low as reasonably achievable). COMPARISON: 11:58:48 DRUG SAFETY COORDINATOR. FINDINGS: Multiple sclerotic/osteolytic lesions are noted involving visualized all bones, including ribs, spine, bilateral scapula visualized bilateral humerus and sternum. Pathological fracture of left 11th rib. Evidence of focal soft tissue thickening measuring about 21 x 20 mm with internal calcification is noted involving outer quadrant of left breast, abutting left pectoralis muscle. Multiple scattered calcifications are noted involving both breast ; more on left side. Mild left pleural effusion with basal subsegmental collapse of left lower lobes are seen. Multiple atelectatic bands are noted involving right upper and bilateral lower lobes. Linear non-opacification seen in right and left pulmonary arteries extending into left upper lobar and right interlobar pulmary artery, suggestive of pulmonary thromboembolism. The central airways are patent. Rest of lungs are clear. . The heart, aorta, and pulmonary arteries are of normal size and configuration. There are coronary artery and aortic atherosclerotic calcifications. No pericardial effusion is identified. The thyroid is unremarkable. No mediastinal, hilar, or axillary lymphadenopathy is noted. IMPRESSION: 1. Linear non-opacification seen in right and left pulmonary arteries extending into left upper lobar and right interlobar pulmary artery, suggestive of pulmonary thromboembolism. 2. Multiple sclerotic/osteolytic lesions are noted involving visualized all bones, including ribs, spine, bilateral scapula visualized bilateral humerus and sternum- possibility of metastasis.-stable. 3. Evidence of focal soft tissue thickening measuring about 21 x 20 mm with internal calcification is noted involving outer quadrant of left breast, abutting left pectoralis muscle.-stable. 4. Multiple scattered calcifications are noted involving both breast ; more on left side.-stable. 5. Mild left pleural effusion with basal subsegmental collapse of left lower lobes are seen. -increased 6. Multiple atelectatic bands are noted involving right upper and bilateral lower lobes.-stable. Electronically signed by Alpesh Bullock 11-21-2024 07:41 AM
--- NOTE | 2024-11-21 07:57 | CT Scan Report ---
EXAM: CT abd pelvis IV con only CLINICAL HISTORY: Cancer pt. N/V. Abd pains. TECHNIQUE: Contiguous axial images were obtained from the level of the diaphragm to the pubic symphysis with intravenous contrast. Coronal and sagittal reconstructions were also performed and indicated to increase the sensitivity for detecting clinically relevant pathology. If IV contrast material had not been administered, the likelihood of detecting abnormalities relevant to the patient's condition would have been substantially decreased. The CT scan was performed according to ALARA (as low as reasonably achievable) principles. COMPARISON: 11:58:48 HOLISTIC SPECIALIST. FINDINGS: The visualized lung bases show changes of atelectasis. The liver is normal in size and attenuation. Evidence of a subcapsular hypodense focal lesion is seen in the inferior edge of the liver, the largest measuring 19 x 13 mm, seen in segment . Stable. There is no intrahepatic or extrahepatic biliary ductal dilatation. The hepatic vasculature is patent. Status post-cholecystectomy. The spleen is enlarged, measuring about 14 cm. The pancreas and adrenal glands are unremarkable. The kidneys are normal in size and attenuation. There is no hydronephrosis or perinephric fat stranding. No renal calculi or renal masses are identified. The ureters are normal in caliber and no ureteral calculi are seen. The bladder is normal in contour. The pelvic viscera are unremarkable. No focal or diffuse bowel wall thickening or evidence of bowel obstruction is identified. There is no imaging evidence of appendicitis. The abdominal and pelvic vasculature is patent. No adenopathy or fluid collections are seen. Numerous mixed lytic and blastic bony metastases are present, involving the entire imaged appendicular and axial skeleton. Left hip implant. IMPRESSION: 1. Splenomegaly. Stable. 2. Numerous mixed lytic and blastic bony metastases involving the entire imaged appendicular and axial skeleton, showing mild progression compared to previous scan. 3. Stable hepatic lesion as described. 4. No other new interval abnormality since prior study. Electronically signed by Alpesh Bullock 11-21-2024 07:57 AM
[2024-11-21] MEDS: PALONOSETRON 0.25 MG in SYRINGE 0 ML IV ONE (09:10)
[2024-11-21] MEDS ORDERED: GLUCOSE 10 TAB/TUBE PO PRN (09:14)
[2024-11-21] MEDS ORDERED: GLUCAGON FOR INJ 1 MG VIAL SQ PRN (09:14)
[2024-11-21] MEDS ORDERED: GLUCOSE 40% GEL 15 GM TUBE PO PRN (09:14)
[2024-11-21] MEDS ORDERED: ACETAMINOPHEN 1000 MG/100 ML IV IV PRN (09:14)
[2024-11-21] MEDS ORDERED: CARBOHYDRATES FOR HYPOGLYCEMIA PO PRN (09:14)
[2024-11-21] MEDS ORDERED: ONDANSETRON INJ 2 MG/ML 2 ML VIAL IV PRN (09:14)
[2024-11-21] MEDS ORDERED: HYDROmorphone INJ 0.5 MG/0.5 ML SYR IV PRN ×2 (09:14→10:57)
[2024-11-21] MEDS ORDERED: DEXTROSE 50% 50 ML SYRINGE IV PRN (09:14)
--- NOTE | 2024-11-21 09:46 | Palliative Care Consultation ---
Date of Consultation November 21, 2024 Assessment & Plan (1) Refractory nausea and vomiting: Progressive cancer related n/v Has been off chemo since 09/25/24 Enhertu is planned but she missed clinic yesterday and it is unclear right now if this needs to be rescheduled as she has new bilat PEs and growing frailty. This cannot be given as inpatient. (2) Cancer related pain: She stopped TDF yesterday Current TDF dose is equivalent to approx 20mg methadone Will begin opioid rotation as follows: Methadone 5mg PO q6h prn/hold for somnolence or resp rate below 14/min. Keep Dilaudid 0.5-1mg IV q4h prn very severe BTP. (3) Myoclonus: calcium elevated >12, Zometa pending,m Xgeva is not formulary (4) Therapeutic opioid-induced constipation (OIC): bowel regimen ordered (5) Advanced care planning/counseling discussion: A 60min face to face ACP meeting was held with Yamilka, her sister and her oldest son Imtiaz. For now she wants to get PE treated and try chemo. we are moving her to methadone for pain while she is here and i hope this improves her comfort. She is not ready for hospice and feels she wants to try chemo and do what she can to be around for her kids as long as she can. She hopes that maybe she will tolerate Enhertu better than prior regimens. she asked if there are other options to try if this one is not as helpful as she hopes it will be or if she cannot tolerate it/has too many side effects etc. she reaffirmed no code. she is fairly pragmatic about most things - feels that if we offer a therapy then it is bc we hope it will help and she shares our hope. she said if we feel these things won't help her then to please not offer what we feel may not help bc she does not want to take away from whatever time she could have with kids. She had a terrible SNF rehab experience and has chosen to "never return to this kind of place ever again." We discussed enrolling in a transitional care program ([facility] is offering [facility] program and covers [place]) so this might be a better way to have more eyes on her/closer follow up and possibly SQ IVF infusion at home prn along with some PT. She is working with Mable our EOL Stage Director on legacy projects for her children. We acknowledged that is hard to think about not pursuing another round of therapy and we acknowledged it has been very challenging for her in past few months to feel well enough to come to the treatment appts. She has been off chemo since August and tumor markers are rising.PS is declining. She is losing weight. Weakness has increased and she admits to spending 75% of her days in bed or resting position. She is beloved by our cancer program at [facility], she has been an [facility] Cancer care patient for a decade; we all want to help support her goal to have success/relief with cancer directed therapies. She is so endearing. We agreed to keep a very open, transparent line of communication and ongoing dialogue about goals of care, treatment risks/benefits and resources to improve home support. She asked if being on anticoagulation will require deferring chemo for any period of time and I confirmed with med onc this will not be a reason to defer or hold chemo - when she is able to return to clinic, and if she is well enough to try chemo, our plan is to administer it after pre treatment labs are checked. We reviewed methadone dosing and titration. She was advised along with family this is a medicine we slowly titrate over weeks, and will require close interval follow up with me She reaffirms DNR/DNI, but otherwise wants to treat what is treatable and fix what is fixable. The priority for Yamilka is to pursue interventions which help improve QOL and support the goal of having more time with her children. (6) Anxiety associated with cancer diagnosis: (7) Insomnia: (8) Opioid-induced insomnia: (9) Chemotherapy-induced peripheral neuropathy: (10) Palliative care by specialist: Introduced Palliative Medicine and explained our role in patient's care. Patient and/or family were receptive to palliative services for goals of care discussions. Reviewed we are different from hospice, a home health nurse visiting service. Plan As above Thank you for allowing us to participate in the ongoing care of this patient. Please page with any additional concerns. Pilar Limon DNP Director, Palliative Medicine History of Present Illness Reason for Consultation: cancer pain mgt cancer n/v-refractory GOC advancing illness possible hospice continuity of care Attending Physician: Marcial Valdivia MD History of Present Illness Yamilka is well known to me from OP Pall med clinic and prior admissions She is here with refractory n/v which has been worsening for several months, has been off chemo since august 2024 she self d/c her TDF 100mcg patch yesterday afternoon, concerned it was worsening her n/v she did not have anything to eat, drinking some body armor and soda last BM 2-3 days ago, average 1x/week, does not adhere to a consistent bowel regimen She has progressive, metastatic Stage V breast ca tumor markers are rising she has extensive bony mets with sharply increased very severe caner related pain, she states she is "always in pain, the meds don't help a whole lot and maybe just take a little of the edge off but I am always just in a lot of pain, I can't get comfortable, does not matter what side I try to lie on- I am making the pain worse on left or right side or even on my back, and I just feel miserable a lot of the time." She was supposed to start another salvage chemo yesterday but canceled clinic d/t nausea and vomiting she uses her walker to navigate thru home, has a stair lift to get to her bedroom she has been struggling to get to a place where more chemo could be given - she has had several falls with fractures in past 3-4 mos, surgery and several pallaitive RT sessions to help with pain For pain she has been using:TDF 100mcg which she removed yesterday afternoon She uses Oxy IR 30-60mg PO q4h prn for severe cancer related breakthrough pain She has Dilaudid 8mg tabs available for very severe BTP unrelieved by OxyIR but uses these sparingly bc the oral dilaudid historically worsens her n/v she has numerous opioid intolerances which are outlined in my previous notes her insurance refuses to cover long acting oxycodone or long acting MS in recent clinic visits we have discussed rotation of opioid to methadone her screening EKG had QTc <450ms Yamilka has been on a steady decline and growing intolerance to chemo - when she is able to get treatment, she is then struggling post treatment with severe often intractable n/v which leads to poor oral intake and dehydration, requiring clinic eval and IVF with IV antiemetics There have been some conversations about EOL care which she initiated with me in recent clinic visits, but she is consistent that as long as some treatment is offered she will be willing to accept it because her overriding goal is to have as much time with her children as possible, ages 21yo/son/Imtiaz, 17yo/son with autism/struggles with emotional capacity and information processing and 12yo/daughter. She has caregiving support through her niece, Vani, who is her paid caregiver and her Imtiaz's girlfriend Mary is a relief/apartment leasing agent caregiver. This admission is complicated by new finding of bilateral PE. She has been started on eliquis. She denies chest pain,dyspnea, cough but does state she has felt an odd "pain in my lower ribs that kind of felt like it went to my back a little bit for the past week." no fevers. IMAGING: CTA: 1. Linear non-opacification seen in right and left pulmonary arteries extending into left upper lobar and right interlobar pulmary artery, suggestive of pulmonary thromboembolism. 2. Multiple sclerotic/osteolytic lesions are noted involving visualized all bones, including ribs, spine, bilateral scapula visualized bilateral humerus and sternum- possibility of metastasis.-stable. 3. Evidence of focal soft tissue thickening measuring about 21 x 20 mm with internal calcification is noted involving outer quadrant of left breast, abutting left pectoralis muscle.-stable. 4. Multiple scattered calcifications are noted involving both breast ; more on left side.-stable. 5. Mild left pleural effusion with basal subsegmental collapse of left lower lobes are seen. -increased 6. Multiple atelectatic bands are noted involving right upper and bilateral lower lobes.-stable. CT Abd/Pelvis: 1. Splenomegaly. Stable. 2. Numerous mixed lytic and blastic bony metastases involving the entire imaged appendicular and axial skeleton, showing mild progression compared to previous scan. 3. Stable hepatic lesion as described. 4. No other new interval abnormality since prior study. Allergies Allergy/AdvReac Type Severity Reaction Status Date / Time No Known Allergies Allergy Verified 11/21/24 08:19 Home Medications Medication Instructions Recorded Confirmed Type insulin aspart U-100 100 unit/mL 0 sliding scale dose subcut AC 06/25/23 11/21/24 History (3 mL) subcutaneous pen (Novolog FlexPen U-100 Insulin aspart) ondansetron 8 mg disintegrating 8 mg translingual BID PRN Nausea 06/25/23 11/21/24 History tablet And Vomiting metoclopramide HCl 10 mg tablet 10 mg PO BID PRN Nausea And 08/20/24 11/21/24 History Vomiting olanzapine 5 mg tablet (Zyprexa) 5 mg PO BID PRN n/v 08/20/24 11/21/24 History insulin glargine 100 unit/mL (3 7 unit (0.07 mL) subcut BID #0 mL 09/23/24 11/21/24 Rx mL) subcutaneous pen (Lantus Solostar U-100 Insulin) oxycodone 15 mg tablet,oral ONLY 15 mg PO Q4H PRN pain (scale score 09/23/24 11/21/24 Rx (not feeding tubes) 4-6) #20 ea oxycodone 30 mg tablet 30 mg PO Q4H PRN pain (scale score 09/23/24 11/21/24 Rx 7-10) #20 tabs dexamethasone 4 mg tablet 8 mg (2 x 4 mg) PO BID severe bony 11/09/24 11/21/24 Rx mets pain from cancer 1 month #120 tabs fentanyl 100 mcg/hr transdermal 1 patch transdermal Q72H very 11/09/24 11/21/24 Rx patch severe cancer pain 1 month #10 ea lorazepam 1 mg tablet (Ativan) 1 mg PO Q8H PRN anxiety, nausea, 11/09/24 11/21/24 Rx insomnia, spasms 1 month #90 tabs olanzapine 2.5 mg tablet 2.5 mg PO DIRECTED 11/21/24 11/21/24 History prochlorperazine maleate 10 mg 10 mg PO Q6H PRN Nausea And 11/21/24 11/21/24 History tablet Vomiting Patient History Medical History DM type 2 (diabetes mellitus, type 2) Breast cancer metastasized to bone History of COVID-19 12/2020 + 12/2021 > residual taste dysfunction and feeling of need to clear throat Bilateral breast cancer Arthritis Liver spots "Mets from cancer" Depression with anxiety Peripheral neuropathy Heart palpitations R/t anxiety per patient History of small bowel obstruction Hx bowel obstruction Hypothyroidism No current meds Surgical History History of tubal ligation Port-A-Cath in place (04/30/22) Insertion Access Port left subclavian with Fluoroscopy(Left) - Chad Banuelos DO History of surgery Left Excisional Debridement of Buttock Wound Nausea and vomiting after administration of anesthetic agent "EXTREME" History of vascular access device PORT INSERTION/REMOVAL History of tooth extraction History of endometrial ablation History of bowel resection D/T BOWEL OBSTRUCTION History of lung surgery Left thoracoscopy with wedge resection left lower lobe Dr. Damico 03/29/2018 History of dilatation and curettage H/O hernia repair Hx of section x3 S/P lumpectomy, left breast LEFT ARM LIMB RESTRICTION Family History Mother , 77yo Diabetes Heart disease Aortic valve replacement Mitral valve calcifications UTI (urinary tract infection) Father , 62yo Diabetes Myocardial infarction Hypertension Stroke Brother Diabetes Myocardial infarction Cardiac stents Pacemaker Hypertension Sister No problems noted. Daughter No problems noted. Son No problems noted. Son No problems noted. 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 How many Children do You have: 3 Feels Safe at Home: Yes Diet: regular caffeine: No during the past year weight has: remained stable Assistive Devices: Walker Review of Systems Review of Systems: All systems reviewed & are unremarkable except as noted in Subjective Physical Exam Constitutional: + acute distress, + frail appearing, campaign coordinator perative and + malnourished bitemp wasting, chemo related alopecia Eyes: PERRL, conjunctivae normal, anicteric sclerae ENMT: Mouth: + dry oral mucous membranes and + poor dentition hearing intact no obvious thrush intermittent clear rhinitis/this is chronic Neck: trachea midline, no thyromegaly Cardiovascular: RRR, no murmur, no edema Gastrointestinal (Abdomen): dim BS, non tender, mild distension Musculoskeletal: Extremities: + limited ROM of extremities, + abnormal strength, + muscle atrophy, + limited ROM of upper extremity (diffuse bony pain RUE) Right and + limited ROM of lower extremity Bilateral Gait: + antalgic gait (wheelchair ) generalized weakness, R hip tenderness decreased from prior, surgical site is well healed. ROM limited Skin: + turgor decreased and + pallor Neurologic: AAOx3 Psychiatric: Orientation: alert, oriented x 3 and cooperative Apperance: appropriately dressed and appropriately groomed Eye Contact: good eye contact Affect: + anxious affect and + tearful affect Thought Process: linear/logical thought process Suicidal Thoughts: denies suicidal thoughts Homicidal Thoughts: denies homicidal thoughts Results & Data Vital Signs (Past 12 Hours) Vital Signs Temp Pulse Pulse Resp BP BP Pulse Ox 11/21/24 08:41 83 11/21/24 06:30 82 18 108/62 98 11/21/24 06:00 84 16 133/84 96 11/21/24 06:00 83 16 107/64 96 11/21/24 05:01 100 11/21/24 05:00 83 18 150/80 H 98 11/21/24 04:30 89 18 147/84 H 100 11/21/24 04:30 89 18 147/84 H 100 11/21/24 04:16 96 H 11/21/24 04:00 36.5 C 88 18 124/81 100 O2 Del Method O2 Flow Rate 11/21/24 08:41 11/21/24 06:30 11/21/24 06:00 11/21/24 06:00 Nasal Cannula 10 11/21/24 05:01 Room Air 11/21/24 05:00 11/21/24 04:30 11/21/24 04:30 Room Air 11/21/24 04:16 11/21/24 04:00 Room Air Laboratory Results 11/21/24 11/21/24 11/21/24 Range/Units 20:12 17:19 10:36 WBC (4.8-10.8) K/ul RBC (4.20-5.40) M/uL Hgb (12.0-16.0) g/dl Hct (37.0-47.0) % MCV (80.0-100.0) fL MCH (25.0-34.0) pg MCHC (32.0-36.0) g/dL RDW Std Deviation (36.4-46.3) fL RDW Coeff of Joshua (11.5-14.5) % Plt Count (130-400) K/uL MPV (9.4-12.4) fL Immature Gran % (Auto) % Neut % (Auto) % Lymph % (Auto) % Eaton % (Auto) % Eos % (Auto) % Baso % (Auto) % Neut # (Auto) (1.40-6.50) K/uL Lymph # (Auto) (1.20-3.40) K/uL Eaton # (Auto) (0.11-0.59) K/uL Eos # (Auto) (0.00-0.50) K/uL Baso # (Auto) (0.00-0.20) K/uL Immature Gran # (Auto) (0.01-0.20) K/uL PT (9.0-12.0) Seconds INR (0.9-1.1) APTT (21-31) Seconds PTT Ratio Sodium (136-145) mmol/L Potassium (3.5-5.1) mmol/L Chloride (98-107) mmol/L Carbon Dioxide (21-32) mmol/L Anion Gap (3-11) BUN (6-23) mg/dl Creatinine (0.6-1.2) mg/dl Est Cr Clr Drug Dosing ml/min eGFR BUN/Creatinine Ratio (10-20) Glucose (70-99(Fasting)) mg/dl POC Glucose 217 H 183 H 135 H (70-99) mg/dl Calcium (8.6-10.3) mg/dl Magnesium (1.7-2.4) mg/dl Total Bilirubin (0.2-1.0) mg/dl AST (13-39) U/L ALT (7-52) U/L Alkaline Phosphatase (34-104) U/L Troponin I High Sens (0-14) pg/ml Total Protein (6.0-8.3) gm/dl Albumin (3.4-5.0) gm/dl Globulin (2.5-4.0) gm/dl Albumin/Globulin Ratio (0.9-2) Lipase (11-82) U/L 11/21/24 Range/Units 04:48 WBC 5.04 (4.8-10.8) K/ul RBC 2.76 L (4.20-5.40) M/uL Hgb 8.1 L (12.0-16.0) g/dl Hct 23.6 L (37.0-47.0) % MCV 85.5 (80.0-100.0) fL MCH 29.3 (25.0-34.0) pg MCHC 34.3 (32.0-36.0) g/dL RDW Std Deviation 49.1 H (36.4-46.3) fL RDW Coeff of Joshua 16.0 H (11.5-14.5) % Plt Count 176 (130-400) K/uL MPV 8.6 L (9.4-12.4) fL Immature Gran % (Auto) 1.6 % Neut % (Auto) 63.5 % Lymph % (Auto) 26.4 % Eaton % (Auto) 7.3 % Eos % (Auto) 0.8 % Baso % (Auto) 0.4 % Neut # (Auto) 3.20 (1.40-6.50) K/uL Lymph # (Auto) 1.33 (1.20-3.40) K/uL Eaton # (Auto) 0.37 (0.11-0.59) K/uL Eos # (Auto) 0.04 (0.00-0.50) K/uL Baso # (Auto) 0.02 (0.00-0.20) K/uL Immature Gran # (Auto) 0.08 (0.01-0.20) K/uL PT 10.9 (9.0-12.0) Seconds INR 1.0 (0.9-1.1) APTT 39 H (21-31) Seconds PTT Ratio 1.4 Sodium 134 L (136-145) mmol/L Potassium 4.0 (3.5-5.1) mmol/L Chloride 97 L (98-107) mmol/L Carbon Dioxide 25 (21-32) mmol/L Anion Gap 12 H (3-11) BUN 30 H (6-23) mg/dl Creatinine 1.13 (0.6-1.2) mg/dl Est Cr Clr Drug Dosing 70.1 ml/min eGFR 60.39 BUN/Creatinine Ratio 26.5 H (10-20) Glucose 137 H (70-99(Fasting)) mg/dl POC Glucose (70-99) mg/dl Calcium 12.1 H* (8.6-10.3) mg/dl Magnesium 1.9 (1.7-2.4) mg/dl Total Bilirubin 1.3 H (0.2-1.0) mg/dl AST 25 (13-39) U/L ALT 10 (7-52) U/L Alkaline Phosphatase 160 H (34-104) U/L Troponin I High Sens 4.4 (0-14) pg/ml Total Protein 7.6 (6.0-8.3) gm/dl Albumin 3.7 (3.4-5.0) gm/dl Globulin 3.9 (2.5-4.0) gm/dl Albumin/Globulin Ratio 0.9 (0.9-2) Lipase 7 L (11-82) U/L Diagnostic Findings Abdomen/Pelvis CT 11/21/24 04:37 EXAM: CT abd pelvis IV con only CLINICAL HISTORY: Cancer pt. N/V. Abd pains. TECHNIQUE: Contiguous axial images were obtained from the level of the diaphragm to the pubic symphysis with intravenous contrast. Coronal and sagittal reconstructions were also performed and indicated to increase the sensitivity for detecting clinically relevant pathology. If IV contrast material had not been administered, the likelihood of detecting abnormalities relevant to the patient's condition would have been substantially decreased. The CT scan was performed according to ALARA (as low as reasonably achievable) principles. COMPARISON: 11:58:48 NEUROPSYCHOLOGY DIVISION CHIEF. FINDINGS: The visualized lung bases show changes of atelectasis. The liver is normal in size and attenuation. Evidence of a subcapsular hypodense focal lesion is seen in the inferior edge of the liver, the largest measuring 19 x 13 mm, seen in segment . Stable. There is no intrahepatic or extrahepatic biliary ductal dilatation. The hepatic vasculature is patent. Status post-cholecystectomy. The spleen is enlarged, measuring about 14 cm. The pancreas and adrenal glands are unremarkable. The kidneys are normal in size and attenuation. There is no hydronephrosis or perinephric fat stranding. No renal calculi or renal masses are identified. The ureters are normal in caliber and no ureteral calculi are seen. The bladder is normal in contour. The pelvic viscera are unremarkable. No focal or diffuse bowel wall thickening or evidence of bowel obstruction is identified. There is no imaging evidence of appendicitis. The abdominal and pelvic vasculature is patent. No adenopathy or fluid collections are seen. Numerous mixed lytic and blastic bony metastases are present, involving the entire imaged appendicular and axial skeleton. Left hip implant. IMPRESSION: 1. Splenomegaly. Stable. 2. Numerous mixed lytic and blastic bony metastases involving the entire imaged appendicular and axial skeleton, showing mild progression compared to previous scan. 3. Stable hepatic lesion as described. 4. No other new interval abnormality since prior study. Electronically signed by Alpesh Bullock 11-21-2024 07:57 AM Chest CTA 11/21/24 04:37 EXAM: CT angio chest PE protocol CLINICAL HISTORY: Cancer. Left side CP. ?Fx ribs vs other TECHNIQUE: Contiguous axial images were obtained from the neck base through the upper abdomen following intravenous administration of iodinated contrast material. Angiographic images were processed, 3D MIP images were acquired for interpretation. If IV contrast material had not been administered, the likelihood of detecting abnormalities relevant to the patient's condition would have been substantially decreased. Coronal and sagittal 3-D MIPs were likewise performed and indicated to increase the sensitivity of detectin diffuse clinically relevant pathology. CT scan was performed according to ALARA (as low as reasonably achievable). COMPARISON: 11:58:48 NEUROPSYCHOLOGY DIVISION CHIEF. FINDINGS: Multiple sclerotic/osteolytic lesions are noted involving visualized all bones, including ribs, spine, bilateral scapula visualized bilateral humerus and sternum. Pathological fracture of left 11th rib. Evidence of focal soft tissue thickening measuring about 21 x 20 mm with internal calcification is noted involving outer quadrant of left breast, abutting left pectoralis muscle. Multiple scattered calcifications are noted involving both breast ; more on left side. Mild left pleural effusion with basal subsegmental collapse of left lower lobes are seen. Multiple atelectatic bands are noted involving right upper and bilateral lower lobes. Linear non-opacification seen in right and left pulmonary arteries extending into left upper lobar and right interlobar pulmary artery, suggestive of pulmonary thromboembolism. The central airways are patent. Rest of lungs are clear. . The heart, aorta, and pulmonary arteries are of normal size and configuration. There are coronary artery and aortic atherosclerotic calcifications. No pericardial effusion is identified. The thyroid is unremarkable. No mediastinal, hilar, or axillary lymphadenopathy is noted. IMPRESSION: 1. Linear non-opacification seen in right and left pulmonary arteries extending into left upper lobar and right interlobar pulmary artery, suggestive of pulmonary thromboembolism. 2. Multiple sclerotic/osteolytic lesions are noted involving visualized all bones, including ribs, spine, bilateral scapula visualized bilateral humerus and sternum- possibility of metastasis.-stable. 3. Evidence of focal soft tissue thickening measuring about 21 x 20 mm with internal calcification is noted involving outer quadrant of left breast, abutting left pectoralis muscle.-stable. 4. Multiple scattered calcifications are noted involving both breast ; more on left side.-stable. 5. Mild left pleural effusion with basal subsegmental collapse of left lower lobes are seen. -increased 6. Multiple atelectatic bands are noted involving right upper and bilateral lower lobes.-stable. Electronically signed by Alpesh Bullock 11-21-2024 07:41 AM PG Care Time/CCT Total # of Minutes Spent Total Time Spent with Patient: Total time spent is greater than 50% in coordination of care (as documented) at patient's floor/unit and/or counseling patient: I spent 130 minutes overall addressing this case: 15 min in medical data review/discussion with referring provider(s) and/or preparation for the visit 15 min in direct interaction with the patient/exam 60 min in Advance Care Planning/Goals of Care discussions as detailed above in note (must be >16min) 15 min in subsequent review and synthesis of assessment and plan 25 min communicating with other providers regarding the patient's case: pharmacy, nursing, primary team, oncology Advanced Care Planning [id number] Advanced Care Planning Additional 30 [place] [address] IN/OBS CONSULT LVL 5,80M (25 - SIGNIFICANT, SEPARATELY IDENTIFIABLE ) Patient Type New Medical Decision Making High Complexity Diagnoses Refractory nausea and vomiting R11.2 Cancer related pain G89.3 Myoclonus G25.3 Therapeutic opioid-induced constipation (OIC) K59.03; T40.2X5A Advanced care planning/counseling discussion Z71.89 Anxiety associated with cancer diagnosis F41.1; C80.1 Insomnia G47.00 Opioid-induced insomnia F11.982 Chemotherapy-induced peripheral neuropathy G62.0; T45.1X5A Palliative care by specialist Z51.5 Additional Codes Advanced Care Planning - 99739 Advanced Care Planning Additional 30 Min: [id number] Advanced Care Planning Additional 30 Min ([id number]) Comment [id number], [id number]
[2024-11-21] MEDS: PANTOprazole 40 MG/10 ML SYR IV STA (10:33)
[2024-11-21] MEDS ORDERED: METHADONE HCL 5 MG TAB PO PRN (10:55)
[2024-11-21] MEDS: INSULIN ASPART PER UNIT CHARGE SC SCH (11:00)
--- NOTE | 2024-11-21 11:05 | History & Physical Bridge Note ---
Date of Service November 21, 2024 History & Physical Bridge Note I have examined the patient, reviewed the History & Physical and in the interval since the performance of the History & Physical I have noted the following changes of clinical significance: Patient received antiemetics this morning and reports no further nausea. She was able to tolerate some cream of wheat for breakfast. She wants to stay on the full liquids diet for now and maybe advance for dinner if no further vomiting by then. Has pain in the left lower rib region. Has chronic pain in the right arm and left calf especially. Has not noticed any extremity swelling or new pains other than the left ribs. She denies any blood in her stool and only moves her bowels once to twice per week. She has not had any blood in her vomit. She thinks that the fentanyl patch increased dose to 100 mcg 1 week ago is what precipitated her severe nausea and vomiting over the last several days. She took the fentanyl patch off on 11/20 and has not replaced it. Her pain currently is fairly well-controlled. She is willing to start methadone. I did discuss her case with palliative medicine nurse practitioner. She has not received any chemotherapy since mid August due to having her left femur pathologic fracture repaired in the recovery. She was post have chemo yesterday but it was canceled due to vomiting I reviewed the CT angiogram of the chest as well as a CT of the abdomen/pelvis and discussed with the patient and her sister at the bedside about the new diagnosis of pulmonary embolism. I also reviewed her blood work from admission this morning. Vitals reviewed Gen: AAOx3, NAD, appears chronically ill HEENT: Anicteric sclerae, EOMI CV: RRR no mgr nl S1S2, positive TTP over left inferior rib cage laterally Pulm: CTAB no wcr Abd: +BS soft NT ND no masses or hernias Ext: No edema, 2+ DP pulses Skin: No rashes, warm/dry Neuro: Full strength throughout 49-year-old female with metastatic breast cancer to the bones here with acute left-sided rib pain on top of chronic pain, and intractable nausea/vomiting. Rib with left 11th rib fracture likely cause of her acute pain. Intractable nausea vomiting possibly due to recent increase in fentanyl patch dosing - Discontinue fentanyl patch and start methadone 5 mg p.o. every 6 hours as needed pain with IV Dilaudid 0.5 mg and 1 mg every 4 hours IV breakthrough pain for moderate to severe pain - Palliative consultation appreciated - Palliative medicine started Palonosetron daily scheduled for nausea - Start Eliquis 10 mg p.o. twice daily x 7 days then 5 mg p.o. twice daily indefinitely for PEs in the setting of malignancy - Continue IV Protonix, add home lorazepam as needed for anxiety spasms and this can also help with nausea - Advance diet later as able if tolerating liquids - Continue 2 L of maintenance fluids for hydration
[2024-11-21] MEDS: APIXABAN 5 MG TABLET PO SCH (11:08)
[2024-11-21] MEDS: METHADONE HCL 5 MG TAB PO PRN (12:27)
--- NOTE | 2024-11-21 12:30 | Electrocardiogram Report ---
Test Reason : Blood Pressure : */* mmHG Vent. Rate : 82 BPM Atrial Rate : 82 BPM P-R Int : 146 ms QRS Dur : 82 ms QT Int : 350 ms P-R-T Axes : 6 -16 12 degrees QTcB Int : 408 ms Normal sinus rhythm Normal ECG When compared with ECG of 01-Nov-2024 12:35, No significant change was found Confirmed by Rey Rosales ([id number]) on 11/21/2024 12:29:45 PM Referred By: REFERRED SELF Confirmed By: Rey Rosales
[2024-11-21] MEDS: ZOLEDRONIC ACID 4 MG in SODIUM CHLOR 0.9% MINI-B 100 ML IV ONE (14:39)
[2024-11-21] MEDS: LANTUS PER UNIT CHARGE SC SCH (20:32)
[2024-11-21] MEDS: PANTOprazole 40 MG/10 ML SYR IV SCH (20:34)
[2024-11-22] MEDS ORDERED: MINERAL OIL ENEMA 133 ML BTL PR PRN (00:29)
[2024-11-22 07:15] LABS: Alanine Aminotransferase 8.0 U/L (7-52); Albumin Globulin Ratio 1.1 (0.9-2); Albumin Level 3.2 gm/dl (3.4-5.0); Alkaline Phosphatase 128.0 U/L (34-104); Anion Gap 6.0 (3-11); Bilirubin,Total 0.6 mg/dl (0.2-1.0); Blood Urea Nitrogen 26.0 mg/dl (6-23); Calcium 10.4 mg/dl (8.6-10.3); Carbon Dioxide 28.0 mmol/L (21-32); Chloride 100.0 mmol/L (98-107); Creatinine Clr Calc Pharmacy 63.0 ml/min; Globulin 2.9 gm/dl (2.5-4.0); Glucose 150.0 mg/dl (70-99(Fasting)); Magnesium 1.7 mg/dl (1.7-2.4); Potassium 4.3 mmol/L (3.5-5.1); Sodium 134.0 mmol/L (136-145); Total Protein 6.1 gm/dl (6.0-8.3)
[2024-11-22 07:24] LABS: Hematocrit (blood only) 19.9 % (37.0-47.0); Hemoglobin 6.8 g/dl (12.0-16.0); Mean Corpuscular Hemoglobin 30.6 pg (25.0-34.0); Mean Corpuscular Volume 89.6 fL (80.0-100.0); Platelet Count 131 K/uL (130-400); RDW Standard Deviation 53.2 fL (36.4-46.3); Red Blood Count 2.22 M/uL (4.20-5.40); White Blood Count 3.14 K/ul (4.8-10.8)
[2024-11-22 07:41] LABS: Hemoglobin A1C 6.3 % (4.5-5.6)
[2024-11-22 07:44] LABS: ALC (manual) 0.97 K/uL (1.2-3.4); ANC (manual) 1.85 K/uL (1.4-6.5); Blast # (manual) 0.03 K/uL (0-0); Polychromasia 2+
[2024-11-22] MEDS: DOCUSATE SODIUM/SENNA 50/8.6MG TAB PO SCH (08:58)
[2024-11-22] MEDS: PALONOSETRON 0.25 MG in SYRINGE 0 ML IV SCH (09:00)
[2024-11-22] MEDS: MAGNESIUM SULFATE / D5W 1 GM/100 ML BAG IV ONE (09:18)
--- NOTE | 2024-11-22 10:02 | Palliative Care Progress Note ---
Date of Service November 22, 2024 Assessment & Plan (1) Cancer related pain: Plan: Improving with a few doses of methadone n/v much better so will begin transition to a more oral route for dc prep Begin methadone 7.5mg PO TID on schedule,Hold for somnolence or RR less than 14; please document RR with each dose administration. Use Dilaudid IV prn for very severe BTP (2) Therapeutic opioid-induced constipation (OIC): Plan: Yamilka has a tendency to decline bowel regimens saying she prefers to let her body handle things naturally. Constiaption discussed, how it adds to n/v reviewed She verbalized understanding and agreed to bowel regimen (3) Chemotherapy-induced peripheral neuropathy: (4) Weakness generalized: (5) Refractory nausea and vomiting: (6) Breast cancer metastasized to multiple sites: (7) Palliative care by specialist: (8) Myoclonus: (9) Anxiety associated with cancer diagnosis: (10) Insomnia: (11) Advanced care planning/counseling discussion: (12) Encounter for monitoring cardiotoxic drug therapy: Plan as above Thank you for allowing us to participate in the ongoing care of this patient. Please page with any additional concerns. Pilar Limon DNP Director, Palliative Medicine Admission and Anticipated Discharge Date Admission Date: November 21, 2024 Subjective Yamilka is feeling better - pain improving but she used more IV Dilaudid prn than methadone. She is reporting improvement in n/v, Aloxi helping, able to eat regular diet remains on bedrest PRBC x1 today no family present at time of my eval Review of Systems Review of Systems: All systems reviewed & are unremarkable except as noted in Subjective Physical Exam Constitutional: + acute distress, + frail appearing, health unit coordinator perative and + malnourished bitemp wasting, chemo related alopecia Eyes: PERRL, conjunctivae normal, anicteric sclerae ENMT: Mouth: + dry oral mucous membranes and + poor dentition hearing intact no obvious thrush intermittent clear rhinitis/this is chronic Neck: trachea midline, no thyromegaly Cardiovascular: RRR, no murmur, no edema Gastrointestinal (Abdomen): dim BS, non tender, mild distension Musculoskeletal: Extremities: + limited ROM of extremities, + abnormal strength, + muscle atrophy, + limited ROM of upper extremity (diffuse bony pain RUE) Right and + limited ROM of lower extremity Bilateral Gait: + antalgic gait (wheelchair ) generalized weakness, R hip tenderness decreased from prior, surgical site is well healed. ROM limited Skin: + turgor decreased and + pallor Neurologic: AAOx3 Psychiatric: Orientation: alert, oriented x 3 and cooperative Apperance: appropriately dressed and appropriately groomed Eye Contact: good eye contact Affect: + anxious affect and + tearful affect Thought Process: linear/logical thought process Suicidal Thoughts: denies suicidal thoughts Homicidal Thoughts: denies homicidal thoughts Results & Data Vital Signs (Past 12 Hours) Vital Signs Temp Pulse Resp BP BP Pulse Ox O2 Del Method 11/22/24 08:03 36.8 C 79 16 95/64 L 97 Room Air 11/21/24 22:39 36.8 C 74 18 100/61 99 Room Air Laboratory Results 11/22/24 11/22/24 11/22/24 Range/Units 16:43 10:57 07:54 WBC (4.8-10.8) K/ul RBC (4.20-5.40) M/uL Hgb (12.0-16.0) g/dl Hct (37.0-47.0) % MCV (80.0-100.0) fL MCH (25.0-34.0) pg MCHC (32.0-36.0) g/dL RDW Std Deviation (36.4-46.3) fL RDW Coeff of Joshua (11.5-14.5) % Plt Count (130-400) K/uL MPV (9.4-12.4) fL Immature Gran % (Auto) % Neut % (Auto) % Lymph % (Auto) % [place] % (Auto) % Eos % (Auto) % Baso % (Auto) % Neut # (Auto) (1.40-6.50) K/uL Lymph # (Auto) (1.20-3.40) K/uL [place] # (Auto) (0.11-0.59) K/uL Eos # (Auto) (0.00-0.50) K/uL Baso # (Auto) (0.00-0.20) K/uL Immature Gran # (Auto) (0.01-0.20) K/uL Absolute Nucleated RBC (0.00-0.12) K/uL Nucleated RBC % (auto) % Neutrophils % (Manual) % Lymphocytes % (Manual) % Monocytes % (Manual) % Eosinophils % (Manual) % Basophils % (Manual) % Blast Cells % (Manual) % Neutrophils # (Manual) (1.40-6.50) K/uL Total Absolute Neuts (1.4-6.5) K/uL Lymphocytes # (Manual) (1.2-3.4) K/uL Total Abs Lymphocytes (1.2-3.4) K/uL Monocytes # (Manual) (0.11-0.59) K/uL Eosinophils # (Manual) (0-0.50) K/uL Basophils # (Manual) (0-0.2) K/uL Blast Cells # (Man) (0-0) K/uL Polychromasia PT (9.0-12.0) Seconds INR (0.9-1.1) APTT (21-31) Seconds PTT Ratio Sodium (136-145) mmol/L Potassium (3.5-5.1) mmol/L Chloride (98-107) mmol/L Carbon Dioxide (21-32) mmol/L Anion Gap (3-11) BUN (6-23) mg/dl Creatinine (0.6-1.2) mg/dl Est Cr Clr Drug Dosing ml/min eGFR BUN/Creatinine Ratio (10-20) Glucose (70-99(Fasting)) mg/dl POC Glucose 169 H 183 H (70-99) mg/dl Estimat Average Glucose mg/dl Hemoglobin A1c (4.5-5.6) % Calcium (8.6-10.3) mg/dl Magnesium (1.7-2.4) mg/dl Total Bilirubin (0.2-1.0) mg/dl AST (13-39) U/L ALT (7-52) U/L Alkaline Phosphatase (34-104) U/L Troponin I High Sens (0-14) pg/ml Total Protein (6.0-8.3) gm/dl Albumin (3.4-5.0) gm/dl Globulin (2.5-4.0) gm/dl Albumin/Globulin Ratio (0.9-2) Lipase (11-82) U/L Blood Type O Negative Antibody Screen NEGATIVE Crossmatch See Detail 11/22/24 11/22/24 11/21/24 Range/Units 07:46 06:20 20:12 WBC 3.14 L (4.8-10.8) K/ul RBC 2.22 L (4.20-5.40) M/uL Hgb 6.8 L* (12.0-16.0) g/dl Hct 19.9 L* (37.0-47.0) % MCV 89.6 (80.0-100.0) fL MCH 30.6 (25.0-34.0) pg MCHC 34.2 (32.0-36.0) g/dL RDW Std Deviation 53.2 H (36.4-46.3) fL RDW Coeff of Joshua 16.7 H (11.5-14.5) % Plt Count 131 (130-400) K/uL MPV 8.6 L (9.4-12.4) fL Immature Gran % (Auto) % Neut % (Auto) % Lymph % (Auto) % [place] % (Auto) % Eos % (Auto) % Baso % (Auto) % Neut # (Auto) (1.40-6.50) K/uL Lymph # (Auto) (1.20-3.40) K/uL [place] # (Auto) (0.11-0.59) K/uL Eos # (Auto) (0.00-0.50) K/uL Baso # (Auto) (0.00-0.20) K/uL Immature Gran # (Auto) (0.01-0.20) K/uL Absolute Nucleated RBC 0.02 (0.00-0.12) K/uL Nucleated RBC % (auto) 0.6 % Neutrophils % (Manual) 59 % Lymphocytes % (Manual) 31 % Monocytes % (Manual) 4 % Eosinophils % (Manual) 4 % Basophils % (Manual) 1 % Blast Cells % (Manual) 1 % Neutrophils # (Manual) 1.85 (1.40-6.50) K/uL Total Absolute Neuts 1.85 (1.4-6.5) K/uL Lymphocytes # (Manual) 0.97 L (1.2-3.4) K/uL Total Abs Lymphocytes 0.97 L (1.2-3.4) K/uL Monocytes # (Manual) 0.13 (0.11-0.59) K/uL Eosinophils # (Manual) 0.13 (0-0.50) K/uL Basophils # (Manual) 0.03 (0-0.2) K/uL Blast Cells # (Man) 0.03 H (0-0) K/uL Polychromasia 2+ PT (9.0-12.0) Seconds INR (0.9-1.1) APTT (21-31) Seconds PTT Ratio Sodium 134 L (136-145) mmol/L Potassium 4.3 (3.5-5.1) mmol/L Chloride 100 (98-107) mmol/L Carbon Dioxide 28 (21-32) mmol/L Anion Gap 6 (3-11) BUN 26 H (6-23) mg/dl Creatinine 1.20 (0.6-1.2) mg/dl Est Cr Clr Drug Dosing 63.0 ml/min eGFR 56.19 BUN/Creatinine Ratio 21.7 H (10-20) Glucose 150 H (70-99(Fasting)) mg/dl POC Glucose 189 H 217 H (70-99) mg/dl Estimat Average Glucose 134 mg/dl Hemoglobin A1c 6.3 H (4.5-5.6) % Calcium 10.4 H (8.6-10.3) mg/dl Magnesium 1.7 (1.7-2.4) mg/dl Total Bilirubin 0.6 D (0.2-1.0) mg/dl AST 19 (13-39) U/L ALT 8 (7-52) U/L Alkaline Phosphatase 128 H (34-104) U/L Troponin I High Sens (0-14) pg/ml Total Protein 6.1 (6.0-8.3) gm/dl Albumin 3.2 L (3.4-5.0) gm/dl Globulin 2.9 (2.5-4.0) gm/dl Albumin/Globulin Ratio 1.1 (0.9-2) Lipase (11-82) U/L Blood Type Antibody Screen Crossmatch 11/21/24 11/21/24 11/21/24 Range/Units 17:19 10:36 04:48 WBC 5.04 (4.8-10.8) K/ul RBC 2.76 L (4.20-5.40) M/uL Hgb 8.1 L (12.0-16.0) g/dl Hct 23.6 L (37.0-47.0) % MCV 85.5 (80.0-100.0) fL MCH 29.3 (25.0-34.0) pg MCHC 34.3 (32.0-36.0) g/dL RDW Std Deviation 49.1 H (36.4-46.3) fL RDW Coeff of Joshua 16.0 H (11.5-14.5) % Plt Count 176 (130-400) K/uL MPV 8.6 L (9.4-12.4) fL Immature Gran % (Auto) 1.6 % Neut % (Auto) 63.5 % Lymph % (Auto) 26.4 % [place] % (Auto) 7.3 % Eos % (Auto) 0.8 % Baso % (Auto) 0.4 % Neut # (Auto) 3.20 (1.40-6.50) K/uL Lymph # (Auto) 1.33 (1.20-3.40) K/uL [place] # (Auto) 0.37 (0.11-0.59) K/uL Eos # (Auto) 0.04 (0.00-0.50) K/uL Baso # (Auto) 0.02 (0.00-0.20) K/uL Immature Gran # (Auto) 0.08 (0.01-0.20) K/uL Absolute Nucleated RBC (0.00-0.12) K/uL Nucleated RBC % (auto) % Neutrophils % (Manual) % Lymphocytes % (Manual) % Monocytes % (Manual) % Eosinophils % (Manual) % Basophils % (Manual) % Blast Cells % (Manual) % Neutrophils # (Manual) (1.40-6.50) K/uL Total Absolute Neuts (1.4-6.5) K/uL Lymphocytes # (Manual) (1.2-3.4) K/uL Total Abs Lymphocytes (1.2-3.4) K/uL Monocytes # (Manual) (0.11-0.59) K/uL Eosinophils # (Manual) (0-0.50) K/uL Basophils # (Manual) (0-0.2) K/uL Blast Cells # (Man) (0-0) K/uL Polychromasia PT 10.9 (9.0-12.0) Seconds INR 1.0 (0.9-1.1) APTT 39 H (21-31) Seconds PTT Ratio 1.4 Sodium 134 L (136-145) mmol/L Potassium 4.0 (3.5-5.1) mmol/L Chloride 97 L (98-107) mmol/L Carbon Dioxide 25 (21-32) mmol/L Anion Gap 12 H (3-11) BUN 30 H (6-23) mg/dl Creatinine 1.13 (0.6-1.2) mg/dl Est Cr Clr Drug Dosing 70.1 ml/min eGFR 60.39 BUN/Creatinine Ratio 26.5 H (10-20) Glucose 137 H (70-99(Fasting)) mg/dl POC Glucose 183 H 135 H (70-99) mg/dl Estimat Average Glucose mg/dl Hemoglobin A1c (4.5-5.6) % Calcium 12.1 H* (8.6-10.3) mg/dl Magnesium 1.9 (1.7-2.4) mg/dl Total Bilirubin 1.3 H (0.2-1.0) mg/dl AST 25 (13-39) U/L ALT 10 (7-52) U/L Alkaline Phosphatase 160 H (34-104) U/L Troponin I High Sens 4.4 (0-14) pg/ml Total Protein 7.6 (6.0-8.3) gm/dl Albumin 3.7 (3.4-5.0) gm/dl Globulin 3.9 (2.5-4.0) gm/dl Albumin/Globulin Ratio 0.9 (0.9-2) Lipase 7 L (11-82) U/L Blood Type Antibody Screen Crossmatch PG Care Time/CCT Total # of Minutes Spent Total Time Spent: 60 Total Time Spent with Patient: Total time spent is greater than 50% in coordination of care (as documented) at patient's floor/unit and/or counseling patient: C[place] [address] SUB INP/OBS CARE 3/50MIN Patient Type Established History Comprehensive Exam Comprehensive Medical Decision Making High Complexity Diagnoses Cancer related pain G89.3 Therapeutic opioid-induced constipation (OIC) K59.03; T40.2X5A Chemotherapy-induced peripheral neuropathy G62.0; T45.1X5A Weakness generalized R53.1 Refractory nausea and vomiting R11.2 Breast cancer metastasized to multiple sites C50.919 Palliative care by specialist Z51.5 Myoclonus G25.3 Anxiety associated with cancer diagnosis F41.1; C80.1 Insomnia G47.00 Advanced care planning/counseling discussion Z71.89 Encounter for monitoring cardiotoxic drug therapy Z51.81; Z79.899
--- NOTE | 2024-11-22 10:33 | Hospitalist Progress Note ---
Date of Service November 22, 2024 Assessment & Plan (1) Intractable vomiting with nausea: (2) Breast cancer metastasized to bone: (3) Pulmonary emboli: (4) Hypercalcemia of malignancy: Plan This patient is a 49-year-old female with metastatic breast cancer to the bones, DM2, anemia of chronic disease, hypercalcemia of malignancy, anxiety related to cancer, here with acute left-sided rib pain from pathologic fracture on top of chronic cancer related bone pain, and intractable nausea/vomiting possibly related to recent increase in dose of fentanyl patch. Also with hypercalcemia. #Intractable nausea/vomiting no evidence of bowel obstruction on CT abdomen/pelvis. She has not had chemotherapy in over 2 months due to her recent hip fracture and repair. Her fentanyl patch was increased to 100 mcg approximately 1 week ago and patient thinks the nausea and vomiting is related to this. No hematemesis. Fentanyl patch was discontinued and she was started on Palonosetron daily scheduled for nausea -Continue daily Palonosetron and discontinue Zofran Continue Protonix IV No further IV fluids needed now that she is tolerating p.o. - Continue regular diet - Give 1 g IV magnesium #Stage IV breast cancer with metastases to the bone/pathologic left 11th rib fractureCTA chest shows acute left 11th rib fracture which is likely cause of her acute pain on presentation. Incidentally noted are also bilateral PEs. She is not hypoxic, troponin negative, and ECG without ischemic changes. Pain is now improved with IV Dilaudid and started methadone as per palliative medicine. She recently completed palliative radiation with Dr. Miguel and has had numerous areas of her body irradiated. Plan is to retrial chemotherapy after discharge as per palliative medicine discussion with her oncologist. -Continue to uptitrate methadone every 2 to 3 days as needed - Continue IV Dilaudid for severe breakthrough pain - For opioid-induced constipation-continue bowel regimen with bisacodyl, senna/docusate-patient refuses any further bowel regimen #Bilateral pulmonary emboli-asymptomatic, incidentally noted in bilateral pulmonary arteries on CT angiogram of the chest performed for left-sided rib p ain from fracture. No signs or symptoms of DVT and Dopplers not performed as would not change analyst at this point in time. Her oncologist recommends Eliquis. Not hypoxic or tachycardic, normal blood pressures, troponin negative - Continue Eliquis 10 mg p.o. twice daily x 7 days then on 11/26, start 5 mg p.o. twice daily indefinitely for PEs in the setting of malignancy #Hypercalcemia of malignancy-calcium 12.1 on admission. Secondary to bony metastases. Alkaline phosphatase also mildly elevated for similar reason. Received 1 dose of Zometa 4 mg IV x 1 on 11/21 and calcium now improved to 10.4 - Follow BMP #Type II DMinsulin controlled. Most recent A1c 7.4%. Will reduce home glargine 7 units twice daily to 4 units twice daily Sliding scale #Pancytopenialikely related to bone marrow involvement from cancer. No bleeding. Hemoglobin down to 6.8 from 8.2 likely somewhat from dilution from IV fluids. Platelets drifting down to 131 and WBC count low at 3.1 - Plans to start chemotherapy after discharge - Transfuse PRBCs 1 unit on 11/22 - Follow CBC in the a.m. #Anxiety related to health conditions-continue lorazepam as needed DVT prophylaxis-now on Eliquis for PE Disposition-continued stay but plan to discharge to home in 1-2 days if pain controlled on oral medication and nausea remains controlled Admission and Anticipated Discharge Date Admission Date: November 21, 2024 Subjective Patient feels much improved. No further nausea or vomiting is tolerating regular diet. The pain in the left rib is much improved as well. She is received 4 mg of IV Dilaudid in the last 24 hours and 15 mg of methadone. I discussed her care with palliative medicine. She has not moved her bowels and does not want any further laxatives or to try Relistor Physical Exam Constitutional: no acute distress Respiratory: normal respiratory effort, lungs clear to auscultation Cardiovascular: RRR, no murmur, no edema Psychiatric: A+Ox3, euthymic affect Results & Data Results & Data Vital Signs (Past 12 Hours) Vital Signs Temp Pulse Resp BP BP Pulse Ox O2 Del Method 11/22/24 08:03 36.8 C 79 16 95/64 L 97 Room Air 11/22/24 08:00 Room Air 11/21/24 22:39 36.8 C 74 18 100/61 99 Room Air Laboratory Results CBC, BMP, magnesium, LFTs, HgbA1c reviewed PG Care Time/CCT Total # of Minutes Spent Total Time Spent with Patient: Total time spent is greater than 50% in coordination of care (as documented) at patient's floor/unit and/or counseling patient: Coding Level of Care Code 00174 SUB INP/OBS CARE 50MIN Diagnoses Intractable vomiting with nausea R11.2 Carcinoma of breast metastatic to bone, unspecified laterality C50.919; C79.51 Laterality: unspecified laterality Pulmonary emboli I26.99 Hypercalcemia of malignancy E83.52 (2) Breast cancer metastasized to bone Laterality: unspecified laterality Qualified Code(s): C50.919 - Malignant neoplasm of unspecified site of unspecified female breast; C79.51 - Secondary malignant neoplasm of bone
[2024-11-22] MEDS: SODIUM CHLORIDE 0.9% 100 ML IV PRN (11:37)
[2024-11-22] MEDS ORDERED: METHADONE HCL 5 MG TAB PO SCH (12:30)
[2024-11-22] MEDS: METHADONE HCL 5 MG TAB PO SCH (14:13)
[2024-11-23 07:05] LABS: Hematocrit (blood only) 23.0 % (37.0-47.0); Hemoglobin 8.1 g/dl (12.0-16.0); Immature Granulocytes # (auto) 0.06 K/uL (0.01-0.20); Immature Granulocytes % (auto) 1.4 %; Mean Corpuscular Hemoglobin 30.9 pg (25.0-34.0); Mean Corpuscular Volume 87.8 fL (80.0-100.0); Platelet Count 143 K/uL (130-400); RDW Standard Deviation 51.5 fL (36.4-46.3); Red Blood Count 2.62 M/uL (4.20-5.40); White Blood Count 4.44 K/ul (4.8-10.8)
[2024-11-23 07:35] LABS: Alanine Aminotransferase 8.0 U/L (7-52); Albumin Globulin Ratio 1.1 (0.9-2); Albumin Level 3.3 gm/dl (3.4-5.0); Alkaline Phosphatase 138.0 U/L (34-104); Anion Gap 8.0 (3-11); Bilirubin,Total 0.6 mg/dl (0.2-1.0); Blood Urea Nitrogen 28.0 mg/dl (6-23); Calcium 9.4 mg/dl (8.6-10.3); Carbon Dioxide 26.0 mmol/L (21-32); Chloride 100.0 mmol/L (98-107); Creatinine Clr Calc Pharmacy 77.1 ml/min; Globulin 3.0 gm/dl (2.5-4.0); Glucose 131.0 mg/dl (70-99(Fasting)); Magnesium 1.7 mg/dl (1.7-2.4); Potassium 4.1 mmol/L (3.5-5.1); Sodium 134.0 mmol/L (136-145); Total Protein 6.3 gm/dl (6.0-8.3)
--- NOTE | 2024-11-23 13:47 | Palliative Care Progress Note ---
Date of Service November 23, 2024 Assessment & Plan (1) Cancer related pain: Plan: Pt states chronic pain improving with increased dose of methadone, requests no further changes in medications at this time. Continue methadone 7.5mg PO TID JESSE,Hold for somnolence or RR less than 14; please document RR with each dose administration. Use Dilaudid IV prn for very severe BTP (2) Therapeutic opioid-induced constipation (OIC): Plan: encourage prophylactic bowel regime while on opiates. (3) Weakness generalized: (4) Refractory nausea and vomiting: (5) Palliative care by specialist: Plan: Palliative care will continue to follow for ongoing symptom management and patient support. Plan as above Admission and Anticipated Discharge Date Admission Date: November 21, 2024 Subjective Assessed pt at bedside, no visitors present. Pt lying in bed with room darkened in NAD on RA. She asked to not be bothered due to severe headache. She did state that her pain is well managed today, but she has had headache through night. She declined need for tylenol and stated that she does not wish to make any changes or add any other medications to her regime at this time. Review of Systems Review of Systems: All systems reviewed & are unremarkable except as noted in Subjective Physical Exam Constitutional: no acute distress Respiratory: normal respiratory effort, lungs clear to auscultation Cardiovascular: RRR, no murmur, no edema Psychiatric: A+Ox3, euthymic affect Results & Data Vital Signs (Past 12 Hours) Vital Signs Temp Pulse Resp BP Pulse Ox O2 Del Method 11/23/24 10:35 Room Air 11/23/24 07:23 36.6 C 87 16 104/69 96 Room Air Laboratory Results Abnormal lab results 11/22/24 11/22/24 11/22/24 Range/Units 07:54 16:43 20:14 WBC (4.8-10.8) K/ul RBC (4.20-5.40) M/uL Hgb (12.0-16.0) g/dl Hct (37.0-47.0) % RDW Std Deviation (36.4-46.3) fL RDW Coeff of Joshua (11.5-14.5) % MPV (9.4-12.4) fL Lymph # (Auto) (1.20-3.40) K/uL Sodium (136-145) mmol/L BUN (6-23) mg/dl BUN/Creatinine Ratio (10-20) Glucose (70-99(Fasting)) mg/dl POC Glucose 169 H 192 H (70-99) mg/dl Alkaline Phosphatase (34-104) U/L Albumin (3.4-5.0) gm/dl Crossmatch See Detail 11/23/24 11/23/24 11/23/24 Range/Units 06:17 07:25 12:00 WBC 4.44 L (4.8-10.8) K/ul RBC 2.62 L (4.20-5.40) M/uL Hgb 8.1 L (12.0-16.0) g/dl Hct 23.0 L (37.0-47.0) % RDW Std Deviation 51.5 H (36.4-46.3) fL RDW Coeff of Joshua 16.4 H (11.5-14.5) % MPV 9.0 L (9.4-12.4) fL Lymph # (Auto) 1.16 L (1.20-3.40) K/uL Sodium 134 L (136-145) mmol/L BUN 28 H (6-23) mg/dl BUN/Creatinine Ratio 28.6 H (10-20) Glucose 131 H (70-99(Fasting)) mg/dl POC Glucose 149 H 145 H (70-99) mg/dl Alkaline Phosphatase 138 H (34-104) U/L Albumin 3.3 L (3.4-5.0) gm/dl Crossmatch Diagnostic Findings Abdomen/Pelvis CT 11/21/24 04:37 EXAM: CT abd pelvis IV con only CLINICAL HISTORY: Cancer pt. N/V. Abd pains. TECHNIQUE: Contiguous axial images were obtained from the level of the diaphragm to the pubic symphysis with intravenous contrast. Coronal and sagittal reconstructions were also performed and indicated to increase the sensitivity for detecting clinically relevant pathology. If IV contrast material had not been administered, the likelihood of detecting abnormalities relevant to the patient's condition would have been substantially decreased. The CT scan was performed according to ALARA (as low as reasonably achievable) principles. 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 The liver is normal in size and attenuation. Evidence of a subcapsular hypodense focal lesion is seen in the inferior edge of the liver, the largest measuring 19 x 13 mm, seen in segment . Stable. There is no intrahepatic or extrahepatic biliary ductal dilatation. The hepatic vasculature is patent. Status post-cholecystectomy. The spleen is enlarged, measuring about 14 cm. The pancreas and adrenal glands are unremarkable. The kidneys are normal in size and attenuation. There is no hydronephrosis or perinephric fat stranding. No renal calculi or renal masses are identified. The ureters are normal in caliber and no ureteral calculi are seen. The bladder is normal in contour. The pelvic viscera are unremarkable. No focal or diffuse bowel wall thickening or evidence of bowel obstruction is identified. There is no imaging evidence of appendicitis. The abdominal and pelvic vasculature is patent. No adenopathy or fluid collections are seen. Numerous mixed lytic and blastic bony metastases are present, involving the entire imaged appendicular and axial skeleton. Left hip implant. IMPRESSION: 1. Splenomegaly. Stable. 2. Numerous mixed lytic and blastic bony metastases involving the entire imaged appendicular and axial skeleton, showing mild progression compared to previous scan. 3. Stable hepatic lesion as described. 4. No other new interval abnormality since prior study. Electronically signed by Alpesh Bullock 11-21-2024 07:57 AM Chest CTA 11/21/24 04:37 EXAM: CT angio chest PE protocol CLINICAL HISTORY: Cancer. Left side CP. ?Fx ribs vs other TECHNIQUE: Contiguous axial images were obtained from the neck base through the upper abdomen following intravenous administration of iodinated contrast material. Angiographic images were processed, 3D MIP images were acquired for interpretation. If IV contrast material had not been administered, the likelihood of detecting abnormalities relevant to the patient's condition would have been substantially decreased. Coronal and sagittal 3-D MIPs were likewise performed and indicated to increase the sensitivity of detectin diffuse clinically relevant pathology. CT scan was performed according to ALARA (as low as reasonably achievable). 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 FINDINGS: Multiple sclerotic/osteolytic lesions are noted involving visualized all bones, including ribs, spine, bilateral scapula visualized bilateral humerus and sternum. Pathological fracture of left 11th rib. Evidence of focal soft tissue thickening measuring about 21 x 20 mm with internal calcification is noted involving outer quadrant of left breast, abutting left pectoralis muscle. Multiple scattered calcifications are noted involving both breast ; more on left side. Mild left pleural effusion with basal subsegmental collapse of left lower lobes are seen. Multiple atelectatic bands are noted involving right upper and bilateral lower lobes. Linear non-opacification seen in right and left pulmonary arteries extending into left upper lobar and right interlobar pulmary artery, suggestive of pulmonary thromboembolism. The central airways are patent. Rest of lungs are clear. . The heart, aorta, and pulmonary arteries are of normal size and configuration. There are coronary artery and aortic atherosclerotic calcifications. No pericardial effusion is identified. The thyroid is unremarkable. No mediastinal, hilar, or axillary lymphadenopathy is noted. IMPRESSION: 1. Linear non-opacification seen in right and left pulmonary arteries extending into left upper lobar and right interlobar pulmary artery, suggestive of pulmonary thromboembolism. 2. Multiple sclerotic/osteolytic lesions are noted involving visualized all bones, including ribs, spine, bilateral scapula visualized bilateral humerus and sternum- possibility of metastasis.-stable. 3. Evidence of focal soft tissue thickening measuring about 21 x 20 mm with internal calcification is noted involving outer quadrant of left breast, abutting left pectoralis muscle.-stable. 4. Multiple scattered calcifications are noted involving both breast ; more on left side.-stable. 5. Mild left pleural effusion with basal subsegmental collapse of left lower lobes are seen. -increased 6. Multiple atelectatic bands are noted involving right upper and bilateral lower lobes.-stable. Electronically signed by Alpesh Bullock 11-21-2024 07:41 AM Medications Administered Current Inpatient Medications Acetaminophen (Acetaminophen 1000 Mg/100 Ml Iv) 1,000 mg IV Q8H PRN PRN Reason: Pain or Fever Stop: 11/24/24 09:13 Apixaban (Apixaban 5 Mg Tablet) 10 mg PO BID JESSE Stop: 11/27/24 21:01 Last Admin: 11/22/24 21:30 Dose: 10 mg Bisacodyl (Bisacodyl 5 Mg Tabec) 10 mg PO DAILY JESSE Stop: 12/22/24 08:59 Last Admin: 11/23/24 10:37 Dose: Not Given Dextrose (Dextrose 50% 50 Ml Syringe) 25 - 50 ml IV UD PRN; Protocol PRN Reason: Hypoglycemia Protocol Stop: 12/21/24 09:13 Glucagon (Glucagon For Inj 1 Mg Vial) 1 mg SQ UD PRN; Protocol PRN Reason: Hypoglycemia Protocol Stop: 12/21/24 09:13 Glucose (Glucose 40% Gel 15 Gm Tube) 15 - 30 gm PO UD PRN; Protocol PRN Reason: Hypoglycemia Protocol Stop: 12/21/24 09:13 Glucose (Glucose 10 Tab/Tube) 4 - 8 tab PO UD PRN; Protocol PRN Reason: Hypoglycemia Protocol Stop: 12/21/24 09:13 Hydromorphone HCl (Hydromorphone Inj 0.5 Mg/0.5 Ml Syr) 0.5 mg IV Q4H PRN PRN Reason: Moderate Pain (Scale 4, 5, 6) Stop: 12/05/24 09:13 Hydromorphone HCl (Hydromorphone Inj 1 Mg/Ml Syringe) 1 mg IV Q4H PRN PRN Reason: Severe Pain (Scale 7, 8, 9,10) Stop: 12/05/24 09:13 Last Admin: 11/23/24 10:41 Dose: 1 mg Palonosetron 0.25 mg/ Syringe 5 mls @ 10 mls/min IV DAILY [facility] Stop: 12/22/24 08:59 Last Admin: 11/23/24 08:36 Dose: 10 mls/min Pantoprazole Sodium (Protonix) 40 mg in 10 mls @ 5 mls/min IV BID [facility] Stop: 12/21/24 20:59 Last Admin: 11/23/24 10:36 Dose: Not Given Insulin Aspart (Insulin Aspart Per Unit Charge) 0 units SC ACHS JESSE Stop: 12/21/24 09:13 Last Admin: 11/23/24 12:51 Dose: Not Given Insulin Glargine (Lantus Per Unit Charge) 4 units SC BID JESSE Stop: 12/21/24 20:59 Last Admin: 11/23/24 10:54 Dose: Not Given Lorazepam (Lorazepam 1 Mg Tab) 1 mg PO Q8H PRN PRN Reason: anxiety, nausea, insomnia, spasms Stop: 12/21/24 10:59 Methadone HCl (Methadone Hcl 5 Mg Tab) 7.5 mg PO TID [facility] Stop: 12/06/24 13:59 Last Admin: 11/22/24 21:31 Dose: 7.5 mg Mineral Oil (Mineral Oil Enema 133 Ml Btl) 133 ml ID DAILY PRN PRN Reason: Constipation Stop: 12/22/24 00:28 Miscellaneous (Carbohydrates For Hypoglycemia ) 15 - 30 gm PO UD PRN PRN Reason: Hypoglycemia Protocol Stop: 12/21/24 09:13 Senna/Docusate Sodium (Docusate Sodium/Senna 50/8.6mg Tab) 2 tab PO BID JESSE Stop: 12/22/24 08:59 Last Admin: 11/23/24 10:37 Dose: Not Given PG Care Time/CCT Total # of Minutes Spent Total Time Spent with Patient: Total time spent is greater than 50% in coordination of care (as documented) at patient's floor/unit and/or counseling patient: C[place] [address] SUB INP/OBS CARE 2/35MIN Patient Type Established History Expanded Problem Focused Exam Expanded Problem Focused Medical Decision Making Moderate Complexity Diagnoses Cancer related pain G89.3 Therapeutic opioid-induced constipation (OIC) K59.03; T40.2X5A Weakness generalized R53.1 Refractory nausea and vomiting R11.2 Palliative care by specialist Z51.5
[2024-11-23] MEDS: MAGNESIUM SULFATE / D5W 1 GM/100 ML BAG IV SCH (18:03)
--- NOTE | 2024-11-23 18:04 | Hospitalist Progress Note ---
Date of Service November 23, 2024 Assessment & Plan (1) Intractable vomiting with nausea: (2) Breast cancer metastasized to bone: (3) Pulmonary emboli: (4) Hypercalcemia of malignancy: Plan This patient is a 49-year-old female with metastatic breast cancer to the bones, DM2, anemia of chronic disease, hypercalcemia of malignancy, anxiety related to cancer, here with acute left-sided rib pain from pathologic fracture on top of chronic cancer related bone pain, and intractable nausea/vomiting possibly related to recent increase in dose of fentanyl patch. Also with hypercalcemia. #Intractable nausea/vomiting no evidence of bowel obstruction on CT abdomen/pelvis. She has not had chemotherapy in over 2 months due to her recent hip fracture and repair. Her fentanyl patch was increased to 100 mcg approximately 1 week ago and patient thinks the nausea and vomiting is related to this. No hematemesis. Fentanyl patch was discontinued and she was started on Palonosetron daily scheduled for nausea. She is now tolerating regular diet fairly well with some intermittent mild nausea -Continue daily Palonosetron Continue Protonix IV - Continue regular diet - Give 2 g IV magnesium #Stage IV breast cancer with metastases to the bone/pathologic left 11th rib fractureCTA chest shows acute left 11th rib fracture which is likely cause of her acute pain on presentation. Incidentally noted are also bilateral PEs. She is not hypoxic, troponin negative, and ECG without ischemic changes. Pain is now improved with IV Dilaudid and started methadone as per palliative medicine. She recently completed palliative radiation with Dr. Migeul and has had numerous areas of her body irradiated. Plan is to retrial chemotherapy after discharge as per palliative medicine discussion with her oncologist. Still requiring multiple doses of IV Dilaudid-likely some component of withdrawal from fentanyl patch while uptitrating methadone -Continue to uptitrate methadone every 2 to 3 days as needed-currently on methadone 7.5 mg p.o. 3 times daily - Continue IV Dilaudid for severe breakthrough pain and wean off as able - For opioid-induced constipation-patient refuses all laxatives because she says they do not work and she does not want to take them-discontinue senna/docusate and discontinue bisacodyl. She also refuses trial of Relistor #Bilateral pulmonary emboli-asymptomatic, incidentally noted in bilateral pulmonary arteries on CT angiogram of the chest performed for left-sided rib pain from fracture. 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 Her oncologist recommends Eliquis. Not hypoxic or tachycardic, normal blood pressures, troponin negative - Continue Eliquis 10 mg p.o. twice daily x 7 days then on 11/26, start 5 mg p.o. twice daily indefinitely for PEs in the setting of malignancy #Hypercalcemia of malignancy-calcium 12.1 on admission. Secondary to bony metastases. Alkaline phosphatase also mildly elevated for similar reason. Received 1 dose of Zometa 4 mg IV x 1 on 11/21 and calcium now improved to 9.4 - Follow BMP #Headache-could be related to opioid use, muscle spasm, bony pain, side effect of medication? No focal neurological deficits - Opioids as needed - Give IV magnesium #Type II DMinsulin controlled. Most recent A1c 7.4%. Continue Lantus 4 units twice daily Sliding scale #Pancytopenialikely related to bone marrow involvement from cancer. No bleeding. Hemoglobin down to 6.8 from 8.2 likely somewhat from dilution from IV fluids. Platelets drifting down to 131 and WBC count low at 3.1. No s/p 1 unit PRBCs and hemoglobin improved to 8.1. Platelets increased to 143. - Plans to start chemotherapy after discharge - Transfusional support as needed - Follow CBC in the a.m. #Anxiety related to health conditions-continue lorazepam as needed DVT prophylaxis-now on Eliquis for PE Disposition-continued stay but plan to discharge to home once pain controlled on oral medication and nausea remains controlled Admission and Anticipated Discharge Date Admission Date: November 21, 2024 Subjective Patient reports had a 10 out of 10 severe headache all day but it is now improving. She is having some intermittent nausea. No bowel movement in almost 1 week but does not want any laxatives. She is drinking and eating. Rib pain is improved. Still taking 4-5 doses of IV Dilaudid per day on top of methadone. I discussed her care with palliative medicine. Physical Exam Constitutional: no acute distress Respiratory: normal respiratory effort, lungs clear to auscultation Cardiovascular: RRR, no murmur, no edema Gastrointestinal (Abdomen): normal bowel sounds, soft, nontender, no hepatospl enomegaly Psychiatric: A+Ox3, euthymic affect Results & Data Results & Data Vital Signs (Past 12 Hours) Vital Signs Temp Pulse Resp BP Pulse Ox O2 Del Method 11/23/24 15:02 36.8 C 77 16 97/65 L 99 Room Air 11/23/24 10:35 Room Air 11/23/24 07:23 36.6 C 87 16 104/69 96 Room Air Laboratory Results CBC, BMP, magnesium, LFTs reviewed PG Care Time/CCT Total # of Minutes Spent Total Time Spent with Patient: Total time spent is greater than 50% in coordination of care (as documented) at patient's floor/unit and/or counseling patient: Coding Level of Care Code 27304 SUB INP/OBS CARE 2/35MIN Diagnoses Intractable vomiting with nausea R11.2 Carcinoma of breast metastatic to bone, unspecified laterality C50.919; C79.51 Laterality: unspecified laterality Pulmonary emboli I26.99 Hypercalcemia of malignancy E83.52 (2) Breast cancer metastasized to bone Laterality: unspecified laterality Qualified Code(s): C50.919 - Malignant neoplasm of unspecified site of unspecified female breast; C79.51 - Secondary malignant neoplasm of bone
[2024-11-23] MEDS: HEPARIN 100 UNIT/ML 5ML FLUSH FLUSH PRN (22:33)
[2024-11-23 23:06] VITALS: RESP 16
[2024-11-24 06:49] LABS: Hematocrit (blood only) 22.3 % (37.0-47.0); Hemoglobin 7.6 g/dl (12.0-16.0); Immature Granulocytes # (auto) 0.06 K/uL (0.01-0.20); Immature Granulocytes % (auto) 1.4 %; Mean Corpuscular Hemoglobin 29.8 pg (25.0-34.0); Mean Corpuscular Volume 87.5 fL (80.0-100.0); Platelet Count 137 K/uL (130-400); RDW Standard Deviation 52.2 fL (36.4-46.3); Red Blood Count 2.55 M/uL (4.20-5.40); White Blood Count 4.16 K/ul (4.8-10.8)
[2024-11-24 07:09] LABS: Alanine Aminotransferase 7.0 U/L (7-52); Albumin Globulin Ratio 1.1 (0.9-2); Albumin Level 3.3 gm/dl (3.4-5.0); Alkaline Phosphatase 138.0 U/L (34-104); Anion Gap 5.0 (3-11); Bilirubin,Total 0.7 mg/dl (0.2-1.0); Blood Urea Nitrogen 28.0 mg/dl (6-23); Calcium 8.8 mg/dl (8.6-10.3); Carbon Dioxide 28.0 mmol/L (21-32); Chloride 100.0 mmol/L (98-107); Creatinine Clr Calc Pharmacy 76.4 ml/min; Globulin 2.9 gm/dl (2.5-4.0); Glucose 160.0 mg/dl (70-99(Fasting)); Magnesium 2.1 mg/dl (1.7-2.4); Potassium 4.1 mmol/L (3.5-5.1); Sodium 133.0 mmol/L (136-145); Total Protein 6.2 gm/dl (6.0-8.3)
[2024-11-24 07:25] LABS: Polychromasia 1+
--- NOTE | 2024-11-24 15:41 | Palliative Care Progress Note ---
Date of Service November 24, 2024 Assessment & Plan (1) Cancer related pain: Plan: Methadone 7.5mg PO TID - new 30 day rx sent to [facility] from [facility], cancer clinic SINDY updated, TDF order d/c Continue OxyIR 15-30mg PO q4h prn BTP, .Hold She does not need Rx for Oxy, recent fill with near one month supply at home - prior rx was for 30-60mg PO q4h prn BTP (2) Intractable vomiting with nausea: (3) Therapeutic opioid-induced constipation (OIC): Plan: Still declined bowel regimen feels her body will "naturally handle it" reinforced connection between constipation and n/v (4) Anxiety associated with cancer diagnosis: (5) Myoclonus: (6) Insomnia: (7) Palliative care by specialist: Plan RTC with me 1-2 weeks cancer clinic Will re scheduled En[facility]tu with cancer team Methadone Rx sent , no need for Rx at dc OxyIR in good supply at home, no Rx needed at DC Thank you for allowing us to participate in the ongoing care of this patient. Please page with any additional concerns. Pilar Limon DNP Director, Palliative Medicine Admission and Anticipated Discharge Date Admission Date: November 21, 2024 Subjective Yamilka is doing well - pain is much better now 5/10 n/v much improved eating more at all meals one episode vomiting last night after eating hamburger - ?texture feels she will be ready to go home Wednesday Methadone 7.5mg TID well tolerated. No somnolence, delirium or chets symptoms Review of Systems Review of Systems: All systems reviewed & are unremarkable except as noted in Subjective Physical Exam Constitutional: + frail appearing, cooperative, comforta ble and + malnourished bitemp wasting Eyes: PERRL, conjunctivae normal, anicteric sclerae ENMT: Mouth: + dry oral mucous membranes and + poor dentition hearing intact no obvious thrush intermittent clear rhinitis/this is chronic Neck: trachea midline, no thyromegaly Cardiovascular: RRR, no murmur, no edema Gastrointestinal (Abdomen): dim BS, non tender, mild distension Musculoskeletal: Extremities: + limited ROM of extremities, + abnormal strength, + muscle atrophy, + limited ROM of upper extremity Right and + limited ROM of lower extremity Left Gait: + antalgic gait generalized weakness, R hip tenderness decreased from prior, surgical site is well healed. ROM limited Skin: + turgor decreased and + pallor Neurologic: AAOx3 Psychiatric: Orientation: alert, oriented x 3 and cooperative Apperance: appropriately dressed and appropriately groomed Eye Contact: good eye contact Affect: euthymic affect Thought Process: linear/logical thought process Suicidal Thoughts: denies suicidal thoughts Homicidal Thoughts: denies homicidal thoughts Results & Data Vital Signs (Past 12 Hours) Vital Signs Temp Pulse Resp BP Pulse Ox O2 Del Method 11/24/24 07:20 36.6 C 83 16 111/74 98 Room Air Laboratory Results 11/24/24 11/24/24 11/24/24 Range/Units 11:12 07:17 06:01 WBC 4.16 L (4.8-10.8) K/ul RBC 2.55 L (4.20-5.40) M/uL Hgb 7.6 L (12.0-16.0) g/dl Hct 22.3 L (37.0-47.0) % MCV 87.5 (80.0-100.0) fL MCH 29.8 (25.0-34.0) pg MCHC 34.1 (32.0-36.0) g/dL RDW Std Deviation 52.2 H (36.4-46.3) fL RDW Coeff of Joshua 16.9 H (11.5-14.5) % Plt Count 137 (130-400) K/uL MPV 9.1 L (9.4-12.4) fL Immature Gran % (Auto) 1.4 % Neut % (Auto) 56.3 % Lymph % (Auto) 31.3 % [place] % (Auto) 7.9 % Eos % (Auto) 2.9 % Baso % (Auto) 0.2 % Neut # (Auto) 2.34 (1.40-6.50) K/uL Lymph # (Auto) 1.30 (1.20-3.40) K/uL [place] # (Auto) 0.33 (0.11-0.59) K/uL Eos # (Auto) 0.12 (0.00-0.50) K/uL Baso # (Auto) 0.01 (0.00-0.20) K/uL Immature Gran # (Auto) 0.06 (0.01-0.20) K/uL Absolute Nucleated RBC (0.00-0.12) K/uL Nucleated RBC % (auto) % Neutrophils % (Manual) % Lymphocytes % (Manual) % Monocytes % (Manual) % Eosinophils % (Manual) % Basophils % (Manual) % Blast Cells % (Manual) % Neutrophils # (Manual) (1.40-6.50) K/uL Total Absolute Neuts (1.4-6.5) K/uL Lymphocytes # (Manual) (1.2-3.4) K/uL Total Abs Lymphocytes (1.2-3.4) K/uL Monocytes # (Manual) (0.11-0.59) K/uL Eosinophils # (Manual) (0-0.50) K/uL Basophils # (Manual) (0-0.2) K/uL Blast Cells # (Man) (0-0) K/uL Polychromasia 1+ PT (9.0-12.0) Seconds INR (0.9-1.1) APTT (21-31) Seconds PTT Ratio Sodium 133 L (136-145) mmol/L Potassium 4.1 (3.5-5.1) mmol/L Chloride 100 (98-107) mmol/L Carbon Dioxide 28 (21-32) mmol/L Anion Gap 5 (3-11) BUN 28 H (6-23) mg/dl Creatinine 0.99 (0.6-1.2) mg/dl Est Cr Clr Drug Dosing 76.4 ml/min eGFR 70.77 BUN/Creatinine Ratio 28.3 H (10-20) Glucose 160 H (70-99(Fasting)) mg/dl POC Glucose 222 H 152 H (70-99) mg/dl Estimat Average Glucose mg/dl Hemoglobin A1c (4.5-5.6) % Calcium 8.8 (8.6-10.3) mg/dl Magnesium 2.1 (1.7-2.4) mg/dl Total Bilirubin 0.7 (0.2-1.0) mg/dl AST 27 (13-39) U/L ALT 7 (7-52) U/L Alkaline Phosphatase 138 H (34-104) U/L Troponin I High Sens (0-14) pg/ml Total Protein 6.2 (6.0-8.3) gm/dl Albumin 3.3 L (3.4-5.0) gm/dl Globulin 2.9 (2.5-4.0) gm/dl Albumin/Globulin Ratio 1.1 (0.9-2) Lipase (11-82) U/L Blood Type Antibody Screen Crossmatch 11/23/24 11/23/24 11/23/24 Range/Units 20:08 16:30 16:28 WBC (4.8-10.8) K/ul RBC (4.20-5.40) M/uL Hgb (12.0-16.0) g/dl Hct (37.0-47.0) % MCV (80.0-100.0) fL MCH (25.0-34.0) pg MCHC (32.0-36.0) g/dL RDW Std Deviation (36.4-46.3) fL RDW Coeff of Joshua (11.5-14.5) % Plt Count (130-400) K/uL MPV (9.4-12.4) fL Immature Gran % (Auto) % Neut % (Auto) % Lymph % (Auto) % [place] % (Auto) % Eos % (Auto) % Baso % (Auto) % Neut # (Auto) (1.40-6.50) K/uL Lymph # (Auto) (1.20-3.40) K/uL [place] # (Auto) (0.11-0.59) K/uL Eos # (Auto) (0.00-0.50) K/uL Baso # (Auto) (0.00-0.20) K/uL Immature Gran # (Auto) (0.01-0.20) K/uL Absolute Nucleated RBC (0.00-0.12) K/uL Nucleated RBC % (auto) % Neutrophils % (Manual) % Lymphocytes % (Manual) % Monocytes % (Manual) % Eosinophils % (Manual) % Basophils % (Manual) % Blast Cells % (Manual) % Neutrophils # (Manual) (1.40-6.50) K/uL Total Absolute Neuts (1.4-6.5) K/uL Lymphocytes # (Manual) (1.2-3.4) K/uL Total Abs Lymphocytes (1.2-3.4) K/uL Monocytes # (Manual) (0.11-0.59) K/uL Eosinophils # (Manual) (0-0.50) K/uL Basophils # (Manual) (0-0.2) K/uL Blast Cells # (Man) (0-0) K/uL Polychromasia PT (9.0-12.0) Seconds INR (0.9-1.1) APTT (21-31) Seconds PTT Ratio Sodium (136-145) mmol/L Potassium (3.5-5.1) mmol/L Chloride (98-107) mmol/L Carbon Dioxide (21-32) mmol/L Anion Gap (3-11) BUN (6-23) mg/dl Creatinine (0.6-1.2) mg/dl Est Cr Clr Drug Dosing ml/min eGFR BUN/Creatinine Ratio (10-20) Glucose (70-99(Fasting)) mg/dl POC Glucose 224 H 236 H 259 H (70-99) mg/dl Estimat Average Glucose mg/dl Hemoglobin A1c (4.5-5.6) % Calcium (8.6-10.3) mg/dl Magnesium (1.7-2.4) mg/dl Total Bilirubin (0.2-1.0) mg/dl AST (13-39) U/L ALT (7-52) U/L Alkaline Phosphatase (34-104) U/L Troponin I High Sens (0-14) pg/ml Total Protein (6.0-8.3) gm/dl Albumin (3.4-5.0) gm/dl Globulin (2.5-4.0) gm/dl Albumin/Globulin Ratio (0.9-2) Lipase (11-82) U/L Blood Type Antibody Screen Crossmatch 11/23/24 11/23/24 11/23/24 Range/Units 12:00 07:25 06:17 WBC 4.44 L (4.8-10.8) K/ul RBC 2.62 L (4.20-5.40) M/uL Hgb 8.1 L (12.0-16.0) g/dl Hct 23.0 L (37.0-47.0) % MCV 87.8 (80.0-100.0) fL MCH 30.9 (25.0-34.0) pg MCHC 35.2 (32.0-36.0) g/dL RDW Std Deviation 51.5 H (36.4-46.3) fL RDW Coeff of Joshua 16.4 H (11.5-14.5) % Plt Count 143 (130-400) K/uL MPV 9.0 L (9.4-12.4) fL Immature Gran % (Auto) 1.4 % Neut % (Auto) 62.4 % Lymph % (Auto) 26.1 % [place] % (Auto) 7.2 % Eos % (Auto) 2.7 % Baso % (Auto) 0.2 % Neut # (Auto) 2.77 (1.40-6.50) K/uL Lymph # (Auto) 1.16 L (1.20-3.40) K/uL [place] # (Auto) 0.32 (0.11-0.59) K/uL Eos # (Auto) 0.12 (0.00-0.50) K/uL Baso # (Auto) 0.01 (0.00-0.20) K/uL Immature Gran # (Auto) 0.06 (0.01-0.20) K/uL Absolute Nucleated RBC 0.02 (0.00-0.12) K/uL Nucleated RBC % (auto) 0.5 % Neutrophils % (Manual) % Lymphocytes % (Manual) % Monocytes % (Manual) % Eosinophils % (Manual) % Basophils % (Manual) % Blast Cells % (Manual) % Neutrophils # (Manual) (1.40-6.50) K/uL Total Absolute Neuts (1.4-6.5) K/uL Lymphocytes # (Manual) (1.2-3.4) K/uL Total Abs Lymphocytes (1.2-3.4) K/uL Monocytes # (Manual) (0.11-0.59) K/uL Eosinophils # (Manual) (0-0.50) K/uL Basophils # (Manual) (0-0.2) K/uL Blast Cells # (Man) (0-0) K/uL Polychromasia PT (9.0-12.0) Seconds INR (0.9-1.1) APTT (21-31) Seconds PTT Ratio Sodium 134 L (136-145) mmol/L Potassium 4.1 (3.5-5.1) mmol/L Chloride 100 (98-107) mmol/L Carbon Dioxide 26 (21-32) mmol/L Anion Gap 8 (3-11) BUN 28 H (6-23) mg/dl Creatinine 0.98 (0.6-1.2) mg/dl Est Cr Clr Drug Dosing 77.1 ml/min eGFR 71.64 BUN/Creatinine Ratio 28.6 H (10-20) Glucose 131 H (70-99(Fasting)) mg/dl POC Glucose 145 H 149 H (70-99) mg/dl Estimat Average Glucose mg/dl Hemoglobin A1c (4.5-5.6) % Calcium 9.4 (8.6-10.3) mg/dl Magnesium 1.7 (1.7-2.4) mg/dl Total Bilirubin 0.6 (0.2-1.0) mg/dl AST 26 (13-39) U/L ALT 8 (7-52) U/L Alkaline Phosphatase 138 H (34-104) U/L Troponin I High Sens (0-14) pg/ml Total Protein 6.3 (6.0-8.3) gm/dl Albumin 3.3 L (3.4-5.0) gm/dl Globulin 3.0 (2.5-4.0) gm/dl Albumin/Globulin Ratio 1.1 (0.9-2) Lipase (11-82) U/L Blood Type Antibody Screen Crossmatch 11/22/24 11/22/24 11/22/24 Range/Units 20:14 16:43 10:57 WBC (4.8-10.8) K/ul RBC (4.20-5.40) M/uL Hgb (12.0-16.0) g/dl Hct (37.0-47.0) % MCV (80.0-100.0) fL MCH (25.0-34.0) pg MCHC (32.0-36.0) g/dL RDW Std Deviation (36.4-46.3) fL RDW Coeff of Joshua (11.5-14.5) % Plt Count (130-400) K/uL MPV (9.4-12.4) fL Immature Gran % (Auto) % Neut % (Auto) % Lymph % (Auto) % [place] % (Auto) % Eos % (Auto) % Baso % (Auto) % Neut # (Auto) (1.40-6.50) K/uL Lymph # (Auto) (1.20-3.40) K/uL [place] # (Auto) (0.11-0.59) K/uL Eos # (Auto) (0.00-0.50) K/uL Baso # (Auto) (0.00-0.20) K/uL Immature Gran # (Auto) (0.01-0.20) K/uL Absolute Nucleated RBC (0.00-0.12) K/uL Nucleated RBC % (auto) % Neutrophils % (Manual) % Lymphocytes % (Manual) % Monocytes % (Manual) % Eosinophils % (Manual) % Basophils % (Manual) % Blast Cells % (Manual) % Neutrophils # (Manual) (1.40-6.50) K/uL Total Absolute Neuts (1.4-6.5) K/uL Lymphocytes # (Manual) (1.2-3.4) K/uL Total Abs Lymphocytes (1.2-3.4) K/uL Monocytes # (Manual) (0.11-0.59) K/uL Eosinophils # (Manual) (0-0.50) K/uL Basophils # (Manual) (0-0.2) K/uL Blast Cells # (Man) (0-0) K/uL Polychromasia PT (9.0-12.0) Seconds INR (0.9-1.1) APTT (21-31) Seconds PTT Ratio Sodium (136-145) mmol/L Potassium (3.5-5.1) mmol/L Chloride (98-107) mmol/L Carbon Dioxide (21-32) mmol/L Anion Gap (3-11) BUN (6-23) mg/dl Creatinine (0.6-1.2) mg/dl Est Cr Clr Drug Dosing ml/min eGFR BUN/Creatinine Ratio (10-20) Glucose (70-99(Fasting)) mg/dl POC Glucose 192 H 169 H 183 H (70-99) mg/dl Estimat Average Glucose mg/dl Hemoglobin A1c (4.5-5.6) % Calcium (8.6-10.3) mg/dl Magnesium (1.7-2.4) mg/dl Total Bilirubin (0.2-1.0) mg/dl AST (13-39) U/L ALT (7-52) U/L Alkaline Phosphatase (34-104) U/L Troponin I High Sens (0-14) pg/ml Total Protein (6.0-8.3) gm/dl Albumin (3.4-5.0) gm/dl Globulin (2.5-4.0) gm/dl Albumin/Globulin Ratio (0.9-2) Lipase (11-82) U/L Blood Type Antibody Screen Crossmatch 11/22/24 11/22/24 11/22/24 Range/Units 07:54 07:46 06:20 WBC 3.14 L (4.8-10.8) K/ul RBC 2.22 L (4.20-5.40) M/uL Hgb 6.8 L* (12.0-16.0) g/dl Hct 19.9 L* (37.0-47.0) % MCV 89.6 (80.0-100.0) fL MCH 30.6 (25.0-34.0) pg MCHC 34.2 (32.0-36.0) g/dL RDW Std Deviation 53.2 H (36.4-46.3) fL RDW Coeff of Joshua 16.7 H (11.5-14.5) % Plt Count 131 (130-400) K/uL MPV 8.6 L (9.4-12.4) fL Immature Gran % (Auto) % Neut % (Auto) % Lymph % (Auto) % [place] % (Auto) % Eos % (Auto) % Baso % (Auto) % Neut # (Auto) (1.40-6.50) K/uL Lymph # (Auto) (1.20-3.40) K/uL [place] # (Auto) (0.11-0.59) K/uL Eos # (Auto) (0.00-0.50) K/uL Baso # (Auto) (0.00-0.20) K/uL Immature Gran # (Auto) (0.01-0.20) K/uL Absolute Nucleated RBC 0.02 (0.00-0.12) K/uL Nucleated RBC % (auto) 0.6 % Neutrophils % (Manual) 59 % Lymphocytes % (Manual) 31 % Monocytes % (Manual) 4 % Eosinophils % (Manual) 4 % Basophils % (Manual) 1 % Blast Cells % (Manual) 1 % Neutrophils # (Manual) 1.85 (1.40-6.50) K/uL Total Absolute Neuts 1.85 (1.4-6.5) K/uL Lymphocytes # (Manual) 0.97 L (1.2-3.4) K/uL Total Abs Lymphocytes 0.97 L (1.2-3.4) K/uL Monocytes # (Manual) 0.13 (0.11-0.59) K/uL Eosinophils # (Manual) 0.13 (0-0.50) K/uL Basophils # (Manual) 0.03 (0-0.2) K/uL Blast Cells # (Man) 0.03 H (0-0) K/uL Polychromasia 2+ PT (9.0-12.0) Seconds INR (0.9-1.1) APTT (21-31) Seconds PTT Ratio Sodium 134 L (136-145) mmol/L Potassium 4.3 (3.5-5.1) mmol/L Chloride 100 (98-107) mmol/L Carbon Dioxide 28 (21-32) mmol/L Anion Gap 6 (3-11) BUN 26 H (6-23) mg/dl Creatinine 1.20 (0.6-1.2) mg/dl Est Cr Clr Drug Dosing 63.0 ml/min eGFR 56.19 BUN/Creatinine Ratio 21.7 H (10-20) Glucose 150 H (70-99(Fasting)) mg/dl POC Glucose 189 H (70-99) mg/dl Estimat Average Glucose 134 mg/dl Hemoglobin A1c 6.3 H (4.5-5.6) % Calcium 10.4 H (8.6-10.3) mg/dl Magnesium 1.7 (1.7-2.4) mg/dl Total Bilirubin 0.6 D (0.2-1.0) mg/dl AST 19 (13-39) U/L ALT 8 (7-52) U/L Alkaline Phosphatase 128 H (34-104) U/L Troponin I High Sens (0-14) pg/ml Total Protein 6.1 (6.0-8.3) gm/dl Albumin 3.2 L (3.4-5.0) gm/dl Globulin 2.9 (2.5-4.0) gm/dl Albumin/Globulin Ratio 1.1 (0.9-2) Lipase (11-82) U/L Blood Type O Negative Antibody Screen NEGATIVE Crossmatch See Detail 11/21/24 11/21/24 11/21/24 Range/Units 20:12 17:19 10:36 WBC (4.8-10.8) K/ul RBC (4.20-5.40) M/uL Hgb (12.0-16.0) g/dl Hct (37.0-47.0) % MCV (80.0-100.0) fL MCH (25.0-34.0) pg MCHC (32.0-36.0) g/dL RDW Std Deviation (36.4-46.3) fL RDW Coeff of Joshua (11.5-14.5) % Plt Count (130-400) K/uL MPV (9.4-12.4) fL Immature Gran % (Auto) % Neut % (Auto) % Lymph % (Auto) % [place] % (Auto) % Eos % (Auto) % Baso % (Auto) % Neut # (Auto) (1.40-6.50) K/uL Lymph # (Auto) (1.20-3.40) K/uL [place] # (Auto) (0.11-0.59) K/uL Eos # (Auto) (0.00-0.50) K/uL Baso # (Auto) (0.00-0.20) K/uL Immature Gran # (Auto) (0.01-0.20) K/uL Absolute Nucleated RBC (0.00-0.12) K/uL Nucleated RBC % (auto) % Neutrophils % (Manual) % Lymphocytes % (Manual) % Monocytes % (Manual) % Eosinophils % (Manual) % Basophils % (Manual) % Blast Cells % (Manual) % Neutrophils # (Manual) (1.40-6.50) K/uL Total Absolute Neuts (1.4-6.5) K/uL Lymphocytes # (Manual) (1.2-3.4) K/uL Total Abs Lymphocytes (1.2-3.4) K/uL Monocytes # (Manual) (0.11-0.59) K/uL Eosinophils # (Manual) (0-0.50) K/uL Basophils # (Manual) (0-0.2) K/uL Blast Cells # (Man) (0-0) K/uL Polychromasia PT (9.0-12.0) Seconds INR (0.9-1.1) APTT (21-31) Seconds PTT Ratio Sodium (136-145) mmol/L Potassium (3.5-5.1) mmol/L Chloride (98-107) mmol/L Carbon Dioxide (21-32) mmol/L Anion Gap (3-11) BUN (6-23) mg/dl Creatinine (0.6-1.2) mg/dl Est Cr Clr Drug Dosing ml/min eGFR BUN/Creatinine Ratio (10-20) Glucose (70-99(Fasting)) mg/dl POC Glucose 217 H 183 H 135 H (70-99) mg/dl Estimat Average Glucose mg/dl Hemoglobin A1c (4.5-5.6) % Calcium (8.6-10.3) mg/dl Magnesium (1.7-2.4) mg/dl Total Bilirubin (0.2-1.0) mg/dl AST (13-39) U/L ALT (7-52) U/L Alkaline Phosphatase (34-104) U/L Troponin I High Sens (0-14) pg/ml Total Protein (6.0-8.3) gm/dl Albumin (3.4-5.0) gm/dl Globulin (2.5-4.0) gm/dl Albumin/Globulin Ratio (0.9-2) Lipase (11-82) U/L Blood Type Antibody Screen Crossmatch 11/21/24 Range/Units 04:48 WBC 5.04 (4.8-10.8) K/ul RBC 2.76 L (4.20-5.40) M/uL Hgb 8.1 L (12.0-16.0) g/dl Hct 23.6 L (37.0-47.0) % MCV 85.5 (80.0-100.0) fL MCH 29.3 (25.0-34.0) pg MCHC 34.3 (32.0-36.0) g/dL RDW Std Deviation 49.1 H (36.4-46.3) fL RDW Coeff of Joshua 16.0 H (11.5-14.5) % Plt Count 176 (130-400) K/uL MPV 8.6 L (9.4-12.4) fL Immature Gran % (Auto) 1.6 % Neut % (Auto) 63.5 % Lymph % (Auto) 26.4 % [place] % (Auto) 7.3 % Eos % (Auto) 0.8 % Baso % (Auto) 0.4 % Neut # (Auto) 3.20 (1.40-6.50) K/uL Lymph # (Auto) 1.33 (1.20-3.40) K/uL [place] # (Auto) 0.37 (0.11-0.59) K/uL Eos # (Auto) 0.04 (0.00-0.50) K/uL Baso # (Auto) 0.02 (0.00-0.20) K/uL Immature Gran # (Auto) 0.08 (0.01-0.20) K/uL Absolute Nucleated RBC (0.00-0.12) K/uL Nucleated RBC % (auto) % Neutrophils % (Manual) % Lymphocytes % (Manual) % Monocytes % (Manual) % Eosinophils % (Manual) % Basophils % (Manual) % Blast Cells % (Manual) % Neutrophils # (Manual) (1.40-6.50) K/uL Total Absolute Neuts (1.4-6.5) K/uL Lymphocytes # (Manual) (1.2-3.4) K/uL Total Abs Lymphocytes (1.2-3.4) K/uL Monocytes # (Manual) (0.11-0.59) K/uL Eosinophils # (Manual) (0-0.50) K/uL Basophils # (Manual) (0-0.2) K/uL Blast Cells # (Man) (0-0) K/uL Polychromasia PT 10.9 (9.0-12.0) Seconds INR 1.0 (0.9-1.1) APTT 39 H (21-31) Seconds PTT Ratio 1.4 Sodium 134 L (136-145) mmol/L Potassium 4.0 (3.5-5.1) mmol/L Chloride 97 L (98-107) mmol/L Carbon Dioxide 25 (21-32) mmol/L Anion Gap 12 H (3-11) BUN 30 H (6-23) mg/dl Creatinine 1.13 (0.6-1.2) mg/dl Est Cr Clr Drug Dosing 70.1 ml/min eGFR 60.39 BUN/Creatinine Ratio 26.5 H (10-20) Glucose 137 H (70-99(Fasting)) mg/dl POC Glucose (70-99) mg/dl Estimat Average Glucose mg/dl Hemoglobin A1c (4.5-5.6) % Calcium 12.1 H* (8.6-10.3) mg/dl Magnesium 1.9 (1.7-2.4) mg/dl Total Bilirubin 1.3 H (0.2-1.0) mg/dl AST 25 (13-39) U/L ALT 10 (7-52) U/L Alkaline Phosphatase 160 H (34-104) U/L Troponin I High Sens 4.4 (0-14) pg/ml Total Protein 7.6 (6.0-8.3) gm/dl Albumin 3.7 (3.4-5.0) gm/dl Globulin 3.9 (2.5-4.0) gm/dl Albumin/Globulin Ratio 0.9 (0.9-2) Lipase 7 L (11-82) U/L Blood Type Antibody Screen Crossmatch PG Care Time/CCT Total # of Minutes Spent Total Time Spent: 55 Total Time Spent with Patient: Total time spent is greater than 50% in coordination of care (as documented) at patient's floor/unit and/or counseling patient: [place] [address] SUB INP/OBS CARE 3/50MIN Patient Type Established History Comprehensive Exam Comprehensive Medical Decision Making High Complexity Diagnoses Cancer related pain G89.3 Intractable vomiting with nausea R11.2 Therapeutic opioid-induced constipation (OIC) K59.03; T40.2X5A Anxiety associated with cancer diagnosis F41.1; C80.1 Myoclonus G25.3 Insomnia G47.00 Palliative care by specialist Z51.5
--- NOTE | 2024-11-24 15:57 | Hospitalist Progress Note ---
Date of Service November 24, 2024 Assessment & Plan (1) Intractable vomiting with nausea: (2) Breast cancer metastasized to bone: (3) Pulmonary emboli: (4) Hypercalcemia of malignancy: Plan This patient is a 49-year-old female with metastatic breast cancer to the bones, DM2, anemia of chronic disease, hypercalcemia of malignancy, anxiety related to cancer, here with acute left-sided rib pain from pathologic fracture on top of chronic cancer related bone pain, and intractable nausea/vomiting possibly related to recent increase in dose of fentanyl patch. Also with hypercalcemia. #Intractable nausea/vomiting no evidence of bowel obstruction on CT abdomen/pelvis. She has not had chemotherapy in over 2 months due to her recent hip fracture and repair. Her fentanyl patch was increased to 100 mcg approximately 1 week ago and patient thinks the nausea and vomiting is related to this. No hematemesis. Fentanyl patch was discontinued and she was started on Palonosetron daily scheduled for nausea. She is now tolerating regular diet fairly well with some intermittent mild nausea. Magnesium was replaced multiple times and is now normalized -Continue daily Palonosetron while hospitalized Continue Protonix but change IV to p.o. and continue on discharge - Continue regular diet #Stage IV breast cancer with metastases to the bone/pathologic left 11th rib fractureCTA chest shows acute left 11th rib fracture which is likely cause of her acute pain on presentation. Incidentally noted are also bilateral PEs. She is not hypoxic, troponin negative, and ECG without ischemic changes. Pain is now improved with IV Dilaudid and started methadone as per palliative medicine. She recently completed palliative radiation with Dr. Miguel and has had numerous areas of her body irradiated. Plan is to retrial chemotherapy after discharge as per palliative medicine discussion with her oncologist. Still requiring IV Dilaudid for breakthrough pain-likely some component of withdrawal from fentanyl patch while uptitrating methadone Appreciate palliative medicine consultation -Continue to uptitrate methadone as needed with palliative medicine after discharge-currently on methadone 7.5 mg p.o. 3 times daily will continue this on discharge-palliative medicine ordered this through the outside EHR through the cancer center - Continue IV Dilaudid for severe breakthrough pain and wean off as able. After discharge, she will use oxycodone IR 15-30 mg as needed breakthrough pain - For opioid-induced constipation-patient refuses all laxatives because she says they do not work and she does not want to take them-She also refuses trial of Relistor. Feels like she will have a bowel movement on 11/24 -She will follow-up to start chemotherapy after discharge in 1 week #Bilateral pulmonary emboli-asymptomatic, incidentally noted in bilateral pulmonary arteries on CT angiogram of the chest performed for left-sided rib pain from fracture. No signs or symptoms of DVT and Dopplers not performed as would not change over at this point in time. Her oncologist recommends Eliquis. Not hypoxic or tachycardic, normal blood pressures, troponin negative - Continue Eliquis 10 mg p.o. twice daily x 7 days then on 11/26, start 5 mg p.o. twice daily indefinitely for PEs in the setting of malignancy-Will need a cost savings card from case management at the time of discharge #Hypercalcemia of malignancy-calcium 12.1 on admission. Secondary to bony metastases. Alkaline phosphatase also mildly elevated for similar reason. Received 1 dose of Zometa 4 mg IV x 1 on 11/21 and calcium now improved to 8.8 - Follow BMP #Headache-could be related to opioid use, muscle spasm, bony pain, side effect of medication? No focal neurological deficits. Now resolved #Type II DMinsulin controlled. Most recent A1c 7.4%. Continue Lantus 4 units twice daily which is a reduction in dose from home Sliding scale #Pancytopenialikely related to bone marrow involvement from cancer. No bleeding. Hemoglobin dropped down to 6.8 from 8.2 likely from dilution from IV fluids. Platelets low normal, WBC count low at 3.1. No s/p 1 unit PRBCs and hemoglobin improved to 8.1, slowly drifting down again to 7.6. No evidence of bleeding anywhere - Plans to start chemotherapy after discharge - Transfusional support as needed for Hgb less than 7 - Follow CBC in the a.m. #Anxiety related to health conditions-continue lorazepam as needed DVT prophylaxis-now on Eliquis for PE Disposition-continued stay but plan to discharge to home once pain controlled on oral medication and nausea remains controlled-likely on 11/26 Admission and Anticipated Discharge Date Admission Date: November 21, 2024 Subjective Patient was speaking with the end-of-life grant officer when I came in the room. But then said that she really had to move her bowels. She denied any other complaints and reports her pain is much better controlled. I discussed her care with palliative medicine. Physical Exam Constitutional: no acute distress Respiratory: normal respiratory effort, lungs clear to auscultation Cardiovascular: RRR, no murmur, no edema Psychiatric: A+Ox3, euthymic affect Results & Data Results & Data Vital Signs (Past 12 Hours) Vital Signs Temp Pulse Resp BP Pulse Ox O2 Del Method 11/24/24 07:20 36.6 C 83 16 111/74 98 Room Air Laboratory Results CBC, BMP, magnesium reviewed PG Care Time/CCT Total # of Minutes Spent Total Time Spent with Patient: Total time spent is greater than 50% in coordination of care (as documented) at patient's floor/unit and/or counseling patient: Coding Level of Care Code 51027 SUB INP/OBS CARE 2/35MIN Diagnoses Intractable vomiting with nausea R11.2 Carcinoma of breast metastatic to bone, unspecified laterality C50.919; C79.51 Laterality: unspecified laterality Pulmonary emboli I26.99 Hypercalcemia of malignancy E83.52 (2) Breast cancer metastasized to bone Laterality: unspecified laterality Qualified Code(s): C50.919 - Malignant neoplasm of unspecified site of unspecified female breast; C79.51 - Secondary malignant neoplasm of bone
[2024-11-24] MEDS: LORazepam 1 MG TAB PO PRN (21:19)
[2024-11-25 05:51] LABS: Hematocrit (blood only) 21.7 % (37.0-47.0); Hemoglobin 7.3 g/dl (12.0-16.0); Immature Granulocytes # (auto) 0.04 K/uL (0.01-0.20); Immature Granulocytes % (auto) 1.1 %; Mean Corpuscular Hemoglobin 29.4 pg (25.0-34.0); Mean Corpuscular Volume 87.5 fL (80.0-100.0); Platelet Count 128 K/uL (130-400); RDW Standard Deviation 51.8 fL (36.4-46.3); Red Blood Count 2.48 M/uL (4.20-5.40); White Blood Count 3.65 K/ul (4.8-10.8)
[2024-11-25 06:07] LABS: Anion Gap 5.0 (3-11); Blood Urea Nitrogen 24.0 mg/dl (6-23); Calcium 8.6 mg/dl (8.6-10.3); Carbon Dioxide 27.0 mmol/L (21-32); Chloride 101.0 mmol/L (98-107); Creatinine Clr Calc Pharmacy 83.1 ml/min; Glucose 137.0 mg/dl (70-99(Fasting)); Magnesium 2.0 mg/dl (1.7-2.4); Potassium 4.2 mmol/L (3.5-5.1); Sodium 133.0 mmol/L (136-145)
[2024-11-25 13:31] LABS: Polychromasia 1+
--- NOTE | 2024-11-25 19:54 | Hospitalist Progress Note ---
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 Patient was also diagnosed with hypercalcemia of malignancy with an admission Ca 12.1 mg/dL (11/21/2024, 4:48am). #Intractable nausea/vomiting no evidence of bowel obstruction on CT abdomen/pelvis. She has not had chemotherapy in over 2 months due to her recent hip fracture and repair. Her fentanyl patch was increased to 100 mcg a pproximately 1 week ago and patient thinks the nausea and vomiting is related to this. No hematemesis. Fentanyl patch was discontinued and she was started on Palonosetron daily scheduled for nausea. She is now tolerating regular diet fairly well with some intermittent mild nausea. Magnesium was replaced multiple times and is now normalized -Continue daily Palonosetron while hospitalized Continue Protonix but change IV to p.o. and continue on discharge - Continue regular diet #Stage IV breast cancer with metastases to the bone/pathologic left 11th rib fractureCTA chest shows acute left 11th rib fracture which is likely cause of her acute pain on presentation. Incidentally noted are also bilateral PEs. She is not hypoxic, troponin negative, and ECG without ischemic changes. Pain is now improved with IV Dilaudid and started methadone as per palliative medicine. She recently completed palliative radiation with Dr. Miguel and has had numerous areas of her body irradiated. Plan is to retrial chemotherapy after discharge as per palliative medicine discussion with her oncologist. Still requiring IV Dilaudid for breakthrough pain-likely some component of withdrawal from fentanyl patch while uptitrating methadone Appreciate palliative medicine consultation -Continue to uptitrate methadone as needed with palliative medicine after discharge-currently on methadone 7.5 mg p.o. 3 times daily will continue this on discharge-palliative medicine ordered this through the outside EHR through the cancer center - Continue IV Dilaudid for severe breakthrough pain and wean off as able. After discharge, she will use oxycodone IR 15-30 mg as needed breakthrough pain - For opioid-induced constipation-patient refuses all laxatives because she says they do not work and she does not want to take them-She also refuses trial of Relistor. Feels like she will have a bowel movement on 11/24 -She will follow-up to start chemotherapy after discharge in 1 week #Bilateral pulmonary emboli-asymptomatic, incidentally noted in bilateral pulmonary arteries on CT angiogram of the chest performed for left-sided rib pain from fracture. 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 Her oncologist recommends Eliquis. Not hypoxic or tachycardic, normal blood pressures, troponin negative - Continue Eliquis 10 mg p.o. twice daily x 7 days then on 11/26, start 5 mg p.o. twice daily indefinitely for PEs in the setting of malignancy-Will need a cost savings card from case management at the time of discharge #Hypercalcemia of malignancy-calcium 12.1 mg/dL (11/21/2024, 4:48am). Secondary to bony metastases. Alkaline phosphatase also mildly elevated for similar reason. Received 1 dose of Zometa 4 mg IV x 1 on 11/21 and hypercalcemia of malignancy is under control with subsequent Ca levels: cf., Ca 10.4 mg/dL (11/22/2024, 6:20am). cf., Ca 9.4 mg/dL (11/23/2024, 6:17am). cf., Ca 8.8 mg/dL (11/24/2024, 6:01am). cf., Ca 8.6 mg/dL (11/25/2024, 5:32am). #Headache-could be related to opioid use, muscle spasm, bony pain, side effect of medication? No focal neurological deficits. Now resolved #Type II DMinsulin controlled with serum glucose 137 mg/dL (11/25/2024, 5:32am). Most recent A1c 6.3% (11/22/2024, 6:20am). Continue Lantus 4 units twice daily which is a reduction in dose from home Sliding scale #Pancytopenialikely related to bone marrow involvement from cancer. No bleeding. Hemoglobin dropped down to 6.8 from 8.2 likely from dilution from IV fluids. Platelets low normal, WBC count low at 3.1. No s/p 1 unit PRBCs and hemoglobin improved to 8.1, slowly drifting down again to 7.6. No evidence of bleeding anywhere - Plans to start chemotherapy after discharge - Transfusional support as needed for Hgb less than 7 - Follow CBC in the a.m. #Anxiety related to health conditions-continue lorazepam as needed DVT prophylaxis-now on Eliquis for PE Disposition-continued stay but plan to discharge to home in the 11/26/2024, as stated by the patient as her bone pains are now well-controlled on oral medication and nausea remains controlled. Admission and Anticipated Discharge Date Admission Date: November 21, 2024 Subjective "I can feel it in my bones. The pain, that is. The cancer is in my bones, you know. Today, the pain is mild; the pain is a 1 on a scale of 1 to 10. I plan on going home tomorrow, as my pain is now under control. Thank you very much!" Review of Systems Constitutional: Negative for antecedent/coincident fevers, chills, diaphoresis, cough, wheeze, sore throat, hemoptysis, chest pains, palpitations, pleurisy, nausea, vomiting, diarrhea, abdominal pain, pelvic pain, hematemesis, hematochezia, melena, hem aturia, dysuria, frequency, urgency, headaches, dizziness, lightheadedness, visual changes, hearing changes, weakness, falls, syncope, trauma, travel history, sick contacts, or food/drug ingestions novel or new. All other review of systems are reported as negative by the patient on 11/25/2024. Physical Exam Constitutional: General: Comfortable, cooperative, coherent. Wide awake and alert. Not confused, lethargic, or obtunded. Patient speaks in complete, fluent, and articulate sentences without pause, interruption, cough, or wheeze. HEENT: Normocephalic, atraumatic. Extra-ocular muscles intact. Pupils equally round and reactive to light. No nystagmus, gaze paresis, anisocoria, miosis, mydriasis, hyphema, chemosis, scleral injection, conjunctivitis, or pterygium. No otorrhea or rhinorrhea. No pharyngeal discharge or exudate. Neck: Supple, no stridor or bruit. Jugular venous pressure is estimated to be 3 cm above the sternal angle of [place], which is, by definition, 5 cm above the level of the right atrium. Hence, jugular venous pressure of 8 cm is not elevated on 11/25/2024. Lymphatics: No anterior/posterior cervical, infraclavicular, supraclavicular, axillary, epitrochlear, or inguinal adenopathy. Chest: Symmetric rise and fall with respirations. Non-tender to palpation. Lungs: Clear to auscultation and percussion. No audible expiratory wheeze, egophony, pectoriloquy, increase in tactile fremitus, or flatness/dullness to percussion at the bases. Heart: Regular rate and rhythm. S1 and S2 noted. No S3 or S4 summation gallop. No tripartite friction rub. Grade II/ early systolic murmur at left lower sternal border without radiation to the carotids, axilla, or back, and which remains invariant in regards to the respiratory cycle. Abdomen: Soft, non-tender, non-distended. No rebound, guarding, Cruz's sign, or organomegaly. Bowel sounds auscultated in all 4 quadrants. Extremities: No clubbing, cyanosis, or edema. 2+ pedal pulses bilaterally. Skin: No decubitus ulcer, exanthem, or enanthem. Urology: No hsu catheter. No purewick. No urethral discharge. Neurology: Alert and oriented in regards to person, place, time, and situation. DTR+. 5/5 motor strength in all 4 extremities, both proximally and distally. Back: No spinal tenderness. No paraspinal tenderness. Straight leg raising negative/normal bilaterally. Psychiatry: No flat affect. No monotone voice. Smiles appropriately. Results & Data Results & Data Vital Signs (Past 12 Hours) Vital Signs Temp Pulse Resp BP Pulse Ox O2 Del Method 11/25/24 15:26 36.8 C 89 16 85/56 L 98 Room Air Laboratory Results Abnormal lab results 11/24/24 11/25/24 11/25/24 Range/Units 20:38 05:32 07:16 WBC 3.65 L (4.8-10.8) K/ul RBC 2.48 L (4.20-5.40) M/uL Hgb 7.3 L (12.0-16.0) g/dl Hct 21.7 L (37.0-47.0) % RDW Std Deviation 51.8 H (36.4-46.3) fL RDW Coeff of Joshua 16.7 H (11.5-14.5) % Plt Count 128 L (130-400) K/uL MPV 8.8 L (9.4-12.4) fL Lymph # (Auto) 1.13 L (1.20-3.40) K/uL Sodium 133 L (136-145) mmol/L BUN 24 H (6-23) mg/dl BUN/Creatinine Ratio 26.4 H (10-20) Glucose 137 H (70-99(Fasting)) mg/dl POC Glucose 159 H 159 H (70-99) mg/dl 11/25/24 11/25/24 Range/Units 12:03 16:52 WBC (4.8-10.8) K/ul RBC (4.20-5.40) M/uL Hgb (12.0-16.0) g/dl Hct (37.0-47.0) % RDW Std Deviation (36.4-46.3) fL RDW Coeff of Joshua (11.5-14.5) % Plt Count (130-400) K/uL MPV (9.4-12.4) fL Lymph # (Auto) (1.20-3.40) K/uL Sodium (136-145) mmol/L BUN (6-23) mg/dl BUN/Creatinine Ratio (10-20) Glucose (70-99(Fasting)) mg/dl POC Glucose 187 H 162 H (70-99) mg/dl PG Care Time/CCT Total # of Minutes Spent Total Time Spent with Patient: Total time spent is greater than 50% in coordination of care (as documented) at patient's floor/unit and/or counseling patient: Coding Level of Care Code 23288 SUB INP/OBS CARE 2/35MIN Diagnoses Intractable vomiting with nausea R11.2 Carcinoma of breast metastatic to bone, unspecified laterality C50.919; C79.51 Laterality: unspecified laterality Pulmonary emboli I26.99 Hypercalcemia of malignancy E83.52 (2) Breast cancer metastasized to bone Laterality: unspecified laterality Qualified Code(s): C50.919 - Malignant neoplasm of unspecified site of unspecified female breast; C79.51 - Secondary malignant neoplasm of bone
[2024-11-25 23:31] VITALS: TEMP 98.1
[2024-11-26] MEDS: PROMETHAZINE 12.5 MG/50.5 ML BAG IV STA (04:58)
[2024-11-26 07:23] VITALS: BP 94/61; PULSE 82; O2SAT 99
--- NOTE | 2024-11-26 11:05 | Discharge Summary ---
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 Patient was also diagnosed with hypercalcemia of malignancy with an admission Ca 12.1 mg/dL (11/21/2024, 4:48am). The following medical issues were addressed while the patient remained in [facility] from admission date 11/21/2024 to discharge date 11/26/2024: #Intractable nausea/vomiting no evidence of bowel obstruction on CT abdomen/pelvis. She has not had chemotherapy in over 2 months due to her recent hip fracture and repair. Her fentanyl patch was increased to 100 mcg approximately 1 week ago and patient thinks the nausea and vomiting is related to this. No hematemesis. Fentanyl patch was discontinued and she was started on Palonosetron daily scheduled for nausea. She is now tolerating regular diet fairly well with some intermittent mild nausea. Magnesium was replaced multiple times and is now normalized Patient received daily Palonosetron 0.25mg IV daily x 4 doses (11/21/2024, 9:10am; 11/22/2024, 9:00am; 11/23/2024, 8:36am; 11/26/2024, 9:02am) while in [facility]. Patient will not continue this medication on hospital discharge back to her home as this medication is not available in oral formulation. Instead, patient will resume her home-scheduled ondansetron 8mg ODT PO bid prn N/V on hospital discharge back to her home on 11/26/2024. Patient received Protonix, but changed IV to PO, and patient will continue with protonix 40mg PO bid on hospital discharge home on 11/26/2024. To this end, patient's [id number], [address], [place] [address], received an electronic prescription for protonix 40mg PO bid, #60 tablets, no refills, on 11/26/2024, prior to hospital discharge back to her home on 11/26/2024. #Stage IV breast cancer with metastases to the bone/pathologic left 11th rib fractureCTA chest shows acute left 11th rib fracture which is likely cause of her acute pain on presentation. Incidentally noted are also bilateral PEs. Pat ient is not hypoxic, troponin negative, and ECG without ischemic changes. Pain is now greatly improved from 10/10 bone pain (admission date 11/21/2024) to 1/10 bone pains (discharge date 11/26/2024) with IV Dilaudid and started methadone as per palliative medicine. Patient recently completed palliative radiation therapy with [facility] Radiation Oncologist Dr. Vaibhav Miguel and has had numerous areas of her body irradiated. Plan is to retrial chemotherapy after discharge as per palliative medicine discussion with her oncologist. - Patient underwent Palliative Care Consult (11/21/2024, 9:41am) with Ms. Luna Limon, who noted that patient has stopped taking her transdermal fentanyl (equivalent to methadone 20mg) on pre-admission date 11/20/2024. Subsequently, Ms. Limon recommended that patient start methadone 5mg PO q6 prn and hold methadone should somnolence develop or if respiratory rate decreased to below 14 breaths/minute. - Patient subsequently titrated up to methadone 7.5mg PO tid, and patient will continue methadone 7.5mg PO tid on hospital discharge back to her home on 11/26/2024; of note, Palliative Care Service ordered this medication through the outside EHR via [facility]. - Patient also received IV Dilaudid for severe breakthrough pain and wean off as able. After discharge, she will use oxycodone IR 15-30 mg as needed breakthrough pain - Regarding opioid-induced constipation, patient refuses all laxatives because she says they do not work and she does not want to take them. Patient also refuses trial of Relistor (methylnatrexone) to treat opioid-induced constipation. - Patient will follow-up with [facility] Heme-Onc Dr. Josef Vazquez to start palliative chemotherapy after discharge in 1 week #Bilateral pulmonary emboli-asymptomatic, incidentally noted in bilateral pulmonary arteries on CT angiogram of the chest performed for left-sided rib pain from fracture. No signs or symptoms of DVT and Dopplers not performed as would not casino change attendant at this point in time. Her oncologist recommends Eliquis. Not hypoxic or tachycardic, normal blood pressures, troponin negative - Patient received active, oral anticoagulation with eliquis 10mg PO bid x 11 doses (start date 11/21/2024, 11:08am; stop date 11/26/2024, 8:19am) to treat asymptomatic bilateral PE while in [facility]. Patient will continue with eliquis 5mg PO bid indefinitely on hospital discharge back to her home, starting on 11/26/2024, 8:00pm. To this end, [id number], [address] [place] [address], received an electronic prescription for eliquis 5mg PO bid, #60 tablets, 3 refills, on 11/26/2024, prior to hospital discharge back to her home on 11/26/2024. #Hypercalcemia of malignancy-calcium 12.1 mg/dL (11/21/2024, 4:48am). Secondary to bony metastases. Alkaline phosphatase also mildly elevated for similar reason. Patient received 1 dose of zoledronic acid (Zometa) 4 mg IV x 1 on 11/21/2024, 2:38pm, and hypercalcemia of malignancy decreased to normal levels, as shown by patient's subsequent Ca levels: cf., Ca 12.1 mg/dL (11/21/2024, 4:48am).(admission). cf., Ca 10.4 mg/dL (11/22/2024, 6:20am). cf., Ca 9.4 mg/dL (11/23/2024, 6:17am). cf., Ca 8.8 mg/dL (11/24/2024, 6:01am). cf., Ca 8.6 mg/dL (11/25/2024, 5:32am).(discharge). #Headache-could be related to opioid use, muscle spasm, bony pain, side effect of medication? No focal neurological deficits. Now resolved #Type II DMinsulin dependent with HbA1c 6.3% (11/22/2024, 6:20am) with admission serum glucose 137 mg/dL (11/21/2024, 4:48am) and discharge serum g lucose 137 mg/dL (11/25/2024, 5:32am). Patient received Lantus 4 units SQ bid, which is a reduction in dose from home-scheduled Lantus 7 units SQ bid, while in [facility] from admission date 11/21/2024 to discharge date 11/26/2024. Patient will continue with Lantus 4 units SQ bid on hospital discharge home on 11/26/2024. To this end, patient's [id number], [address] [place] [address], received an electronic prescription for Lantus 4 units SQ bid, 100 U/mL concentrate, 10mL, no refills, on 11/26/2024, prior to hospital discharge back to her home on 11/26/2024. #PancytopeniaLikely related to bone marrow involvement from cancer. No mucosal bleeding reported by patient while in [facility] from admission date 11/21/2024 to discharge date 11/26/2024. cf., WBC 5.04 (11/21/2024, 4:48am). cf., WBC 3.14 (11/22/2024, 6:20am). cf., WBC 4.44 (11/23/2024, 6:17am). cf., WBC 4.16 (11/24/2024, 6:01am). cf., WBC 3.65 (11/25/2024, 5:32am). The decline in WBC noted above was most probably due to a combination of WBC dilution from IV fluids, multiple blood draws performed during this hospitalization, and decreased leukopoiesisin the setting of stage IV BRCA. cf., Hb 8.1 g/dL (11/21/2024, 4:48am). cf., Hb 6.8 g/dL (11/22/2024, 6:20am). cf., Hb 8.1 g/dL (11/23/2024, 6:17am). cf., Hb 7.6 g/dL (11/24/2024, 6:01am). cf., Hb 7.3 g/dL (11/25/2024, 5:32am). The decline in Hb level noted above was most probably due to a combination of hemodilution from IV fluids, multiple blood draws performed during this hospitalization, and decreased erythropoiesis in the setting of stage IV BRCA. Patient did receive 1 unit of packed RBC transfusion (contained in 310 mL) on 11/22/2024, 11:37am to 2:58pm, and post-transfusion Hb level transiently increased, as shown above. cf., platelet 176 (11/21/2024, 4:48am). cf., platelet 131 (11/22/2024, 6:20am). cf., platelet 143 (11/23/2024, 6:17am). cf., platelet 137 (11/24/2024, 6:01am). cf., platelet 128 (11/25/2024, 5:32am). The decline in platelet count noted above is most probably due to a combination of platelet dilution from IV fluids, multiple blood draws performed during this hospitalization, and decreased thrombopoiesis in the setting of stage IV BRCA. Patient did not receive any platelet [id number]) while in [facility] from admission date 11/21/2024 to discharge date 11/26/2024. #Anxiety related to health conditions-Asymptomatic on home-scheduled lorazepam 1mg PO q8 prn anxiety while in [facility]. Patient will continue this medication on hospital discharge back to home on 11/26/2024. DVT prophylaxis-Patient received active, oral anticoagulation with eliquis 10mg PO bid x 11 doses (start date 11/21/2024, 11:08am; stop date 11/26/2024, 8:19am) to treat asymptomatic bilateral PE while in [facility]. Patient will continue with eliquis 5mg PO bid indefinitely on hospital discharge back to her home, starting on 11/26/2024, 8:00pm. To this end, patient's [id number], [address] [place] [address], received an electronic prescription for eliquis 5mg PO bid, #60 tablets, 3 refills, on 11/26/2024, prior to hospital discharge back to her home on 11/26/2024. Disposition-D/C back to home on 11/26/2024, as stated by the patient as her bone pains are now well-controlled on oral medication and nausea remains controlled. Admission HPI Per Admitting Provider Patient is a 49-year-old female with past medical history of breast cancer with metastasis to bone currently just finished palliative radiation and retrialing chemo next Wednesday. She presented due to intractable vomiting and cancer related pain. Patient seen at bedside. She stated she has been nauseous and vomiting for a couple days and has been unable to tolerate any p.o. intake or take her home medications. She denies any hematemesis. She was able to take her insulin, oxycodone, and a Zofran yesterday however has not had her dexamethasone in several days. She endorses left-sided rib pain that radiates around to her spine that gets worse with any movements or inspiration. She stated she has broken several ribs before due to her cancer and this feels similar however slightly worse. She has not been able to sleep due to the pain as she has been unable to tolerate her home oxycodone. She denies any shortness of breath or abdominal pain. She wishes to maintain her DNR/DNI status. Palliative medicine notes reviewed and appears that patient is going to trial chemo, dexamethasone, and radiation therapy. If she is unable to tolerate chemotherapy she will transition to hospice at home. Patient stated she just finished radiation therapy and she is to start chemotherapy on Wednesday. Discharge Exam Constitutional General: Comfortable, cooperative, coherent. Wide awake and alert. Not confused, lethargic, or obtunded. Patient speaks in complete, fluent, and articulate sentences without pause, interruption, cough, or wheeze. HEENT: Normocephalic, atraumatic. Extra-ocular muscles intact. Pupils equally round and reactive to light. No nystagmus, gaze paresis, anisocoria, miosis, mydriasis, hyphema, chemosis, scleral injection, conjunctivitis, or pterygium. No otorrhea or rhinorrhea. No pharyngeal discharge or exudate. Neck: Supple, no stridor or bruit. Jugular venous pressure is estimated to be 3 cm above the sternal angle of José, which is, by definition, 5 cm above the level of the right atrium. Hence, jugular venous pressure of 8 cm is not elevated on discharge date 11/26/2024. Lymphatics: No anterior/posterior cervical, infraclavicular, supraclavicular, axillary, epitrochlear, or inguinal adenopathy. Chest: Symmetric rise and fall with respirations. Non-tender to palpation. Lungs: Clear to auscultation and percussion. No audible expiratory wheeze, egophony, pectoriloquy, increase in tactile fremitus, or flatness/dullness to percussion at the bases. Heart: Regular rate and rhythm. S1 and S2 noted. No S3 or S4 summation gallop. No tripartite friction rub. Grade II/ early systolic murmur at left lower sternal border without radiation to the carotids, axilla, or back, and which remains invariant in regards to the respiratory cycle. Abdomen: Soft, non-tender, non-distended. No rebound, guarding, Cruz's sign, or organomegaly. Bowel sounds auscultated in all 4 quadrants. Extremities: No clubbing, cyanosis, or edema. 2+ pedal pulses bilaterally. Skin: No decubitus ulcer, exanthem, or enanthem. Urology: No hsu catheter. No purewick. No urethral discharge. Neurology: Alert and oriented in regards to person, place, time, and situation. DTR+. 5/5 motor strength in all 4 extremities, both proximally and distally. Back: No spinal tenderness. No paraspinal tenderness. Straight leg raising negative/normal bilaterally. Psychiatry: No flat affect. No monotone voice. Smiles appropriately. Discharge Plan Discharge Items Patient Disposition: Home - Self-Care Reason For Visit: INTRACTABLE N/V,CANCER PAIN MANAGEMENT Discharge Diagnosis: 1. Intractable bone pain due to bone metastases, due to stage IV BRCA. 2. DNR/DNI with Palliative Care Services including palliative XRT with [facility] Radiation Oncologist Dr. Vaibhav Miguel and palliative chemotherapy (to start in 1 week after hospital discharge @ [facility] with Heme-Onc Dr. Josef Vazquez). Condition on Discharge: Fair Activity: Resume your previous activity Lifting: Gradually increase as tolerated Bathing: No limitations Non-emergency contact: Primary Care Provider Call non-emergency contact if: you have any medication questions Follow-up/Referrals: Mary James PA-C [Primary Care Provider] - Diet: Regular Addtl Attending Provider Instructions: See your PCP Ms. Mary James PA-C, within 5-7 days of hospital discharge. Pending Studies at Discharge: No Stand-Alone Forms: My [facility] [employer], Pain - Opioid Pain Management, Smoking Cessation Medications and DC Order Prescriptions: New insulin glargine [Lantus U-100 Insulin] 100 unit/mL Solution 4 unit SC BID Qty: 10 0RF pantoprazole 40 mg Tablet,Delayed Release (Dr/Ec) 40 mg PO BID Qty: 60 0RF methadone 5 mg Tablet 7.5 mg PO TID Qty: 90 0RF Eliquis 5 mg Tablet 5 mg PO BID Qty: 60 3RF Continued dexamethasone 4 mg tablet 8 mg PO BID 30 Days Qty: 120 3RF fentanyl 100 mcg/hr patch 72 hour 1 patch transdermal Q72H 30 Days Qty: 10 0RF lorazepam [Ativan] 1 mg tablet 1 mg PO Q8H PRN (Reason: anxiety, nausea, insomnia, spasms) 30 Days Qty: 90 0RF ondansetron 8 mg tablet,disintegrating 8 mg translingual BID PRN (Reason: Nausea And Vomiting) insulin aspart U-100 [Novolog FlexPen U-100 Insulin] 100 unit/mL (3 mL) insulin pen 0 sliding scale dose SUBCUT AC Rx Instructions: Sliding Scale tid with meals. metoclopramide HCl 10 mg tablet 10 mg PO BID PRN (Reason: Nausea And Vomiting) olanzapine [Zyprexa] 5 mg tablet 5 mg PO BID PRN (Reason: n/v) oxycodone 15 mg tablet, oral only 15 mg PO Q4H PRN (Reason: pain (scale score 4-6)) Qty: 20 0RF oxycodone 30 mg tablet 30 mg PO Q4H PRN (Reason: pain (scale score 7-10)) Qty: 20 0RF prochlorperazine maleate 10 mg tablet 10 mg PO Q6H PRN (Reason: Nausea And Vomiting) olanzapine 2.5 mg tablet 2.5 mg PO DIRECTED Rx Instructions: TAKE ONE TABLET BY MOUTH DAILY AT BEDTIME FOR FOUR DAYS STARTING DAY ONE OF CHEMOTHERAPY FOR NAUSEA Discontinued insulin glargine [Lantus Solostar U-100 Insulin] 100 unit/mL (3 mL) insulin pen 7 unit SUBCUT BID Qty: 0 0RF Krames/Other Patient Handouts: Managing Type 2 Diabetes Admission Data Admit Date/Time: 11/21/24 06:39 Attending Provider: Reji Ulloa Admit Provider: Marcial aVldivia Primary Care Provider: Mary James Other Providers: Cathy Vigil; Luna Limon; Marcial Valdivia Hospital Stay Data Consultations 11/21/24 06:25 ED Decision to Admit Stat 11/21/24 06:39 Consult Palliative Care Routine Diagnostic Imagining Performed 11/21/24 04:37 CT abd pelvis IV con only Stat CT angio chest PE protocol Stat Pending Results Patient Have Any Pending Studies at Discharge: No Discharge Instructions Given to Patient (Per Discharging Provider) See your PCP Ms. Mary James PA-C, within 5-7 days of hospital discharge. Total Time Total Time Spent Total Time Spent (In Minutes): 35 minutes. Of this time period, 19 minutes were spent in coordinating patient's discharge. Coding Level of Care Code 70107 INP/OBS DISCH >30 MIN Diagnoses Intractable vomiting with nausea R11.2 Carcinoma of breast metastatic to bone, unspecified laterality C50.919; C79.51 Laterality: unspecified laterality Pulmonary emboli I26.99 Hypercalcemia of malignancy E83.52
[2024-11-28] MEDS ORDERED: APIXABAN 5 MG TABLET PO SCH (09:00)
== END 2024-11-26 16:31 | disposition home or self-care (01) | DRG 542 ==
LOC: SUATTDRO → ED 03:54 → EDINP 06:39 → SUATTDRO 06:39 → 3E 12:09